=== PATIENT | male | born 1940 | race African-American/Black ===

== ENCOUNTER → 2016-08-02 | Outpatient (CLI) | payer MEDICARE, OTHER ==
[~2016-08-02] MED LIST: /NEPHROTA PO; ALBU17IN2 INH; ALLO100T PO; ASPI81TA85 PO; CHOLPOW39 PO; CINA30TA PO; CLON-412 PO; COLC1TAB13 PO; CORE25TA PO; CORE6.25 PO; D-101000 PO; DOCU10ELUD PO; FEBU40TA PO; HYDR100T13 PO; LEVI10TA22 PO; LOSA100T36 PO; METHY25TA PO; MINO25TA PO; MULT1TAB18 PO; OMEP20CA3 PO; RENV2TAB PO; SENS30TA PO; SEVE80TAB PO; TIOT18INH INH; TUMS500C PO; TYLE325T5 PO; VITA100037 PO
--- NOTE | 2016-08-02 16:31 | REP ---
Chest two views HISTORY: Wheezing Comparison: 10/30/2013 The lungs are clear. The cardiac silhouette is enlarged. The pulmonary vasculature is normal in appearance. The bony structure is intact. A catheter is present in the region of the right atrium. IMPRESSION: No acute disease. Signed by Dennis Brooke MD 08/02/2016 04:23 P
--- NOTE | 2016-08-02 23:02 | ECGEPIP ---
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 ST-T ABNORMALITY NOTED IS NEW Electronically Signed On 08-02-2016 23:02:27 EDT by Juanito Garcia
== END ==
LOC: M EKG 15:42
PROVIDERS: ATTEND Anesthesiology
DX: R06.2 Wheezing (principal)

== ENCOUNTER → 2016-08-03 | Day surgery (SDC) | payer MEDICARE, OTHER ==
[~2016-08-03] VITALS: Ht 175.3 cm; Wt 97.1 kg
[~2016-08-03] MED LIST changes: +ACETAMINOPHEN 500 MG TAB As Ordered ONE; +ACETAMINOPHEN 500 MG TAB PO ONE; +D5W/0.2% SODIUM CHLORIDE 250 ML IV ONE; +HEPARIN SOD (PORCINE) 5000 UNITS/ML VIAL As Ordered ONE; +LIDOCAINE 1% MDV 20ML VIAL As Ordered ONE; +LIDOCAINE 1% SDV INJ 30 ML VIAL As Ordered ONE; +LIDOCAINE 2% INJ 100 MG/5 ML SDV (FOR ANES.) As Ordered ONE; +MIDAZOLAM INJ 2 MG/2 ML VIAL (J2250) As Ordered ONE; +NS 1,000 ML IV SCH; +ONDANSETRON 4MG/2ML VIAL (J2405) As Ordered ONE; +PROPOFOL 200 MG/20 ML VIAL As Ordered ONE; +fentaNYL 100 MCG/2 ML INJECTION (J3010) As Ordered ONE
[2016-08-03 16:00] VITALS: BP 182/92
--- NOTE | 2016-08-03 19:28 | RO ---
DATE OF PROCEDURE: 08/03/2016 PREOPERATIVE DIAGNOSIS: End-stage renal disease. POSTOPERATIVE DIAGNOSIS: End-stage renal disease. OPERATIVE PROCEDURE: Implantation of left lower quadrant continuous ambulatory peritoneal dialysis catheter. SURGEON: Mauricio Winters MD AGRICULTURAL EQUIPMENT SALESPERSON: ANESTHESIA: Local of 1% Xylocaine with monitored anesthesia care. INDICATIONS FOR PROCEDURE: Patient is a 76-year-old man with end-stage renal disease undergoing hemodialysis. He is now for placement of a CAPD catheter to support peritoneal dialysis. OPERATIVE PROCEDURE: The patient was placed supine on the operating table. He received sedation from anesthesia. The patient's abdomen was prepped and draped in a sterile fashion. A site was marked for the catheter in the left lower quadrant below the level of the patient's belt line which was slightly below the level of the umbilicus. An approximately 4 cm longitudinal paramedian incision was made and dissected down through the abundant subcutaneous tissues to the rectus sheath. The rectus sheath was opened longitudinally and the muscle fibers were spread down to the posterior sheath and peritoneum. A small opening was created through the peritoneum into the abdomen. A pursestring suture of #2-0 Vicryl was placed. The 62-cm double pledgeted Donald peritoneal dialysis catheter cut off and placed over a long stylet. With the patient in a slight Trendelenburg position, the inferior edge of the peritoneum was elevated and the catheter was inserted into the abdominal cavity and advanced inferiorly along the anterior abdominal wall. The catheter was then slipped off of the pledget gently down into the pelvis. The pursestring suture was tied down closing the peritoneum about the catheter with care not to crimp the catheter. The suture was then tied about the inner pledget to prevent catheter withdrawal. Some clear fluid back-filled the catheter as it was being cut off . Some additional local anesthesia was infiltrated slightly lower and lateral in the left lower quadrant. A small puncture wound was created and the catheter was tunneled subcutaneously to exit through this laterally placed puncture wound. The infusion hub was attached to the catheter. Approximately 900 mL of normal saline were then infused through the catheter into the peritoneum. The patient was shifted to a slight reverse Trendelenburg for this portion of the procedure. Once the fluid had infused the bag was dropped to the floor level and there was a nice return of 700 to 800 mL of fluid. While the fluid was being infused and drained, the abdominal incision was closed with some buried #3-0 chromic in a running subcuticular #4-0 Vicryl ____cut off . Once the fluid had drained as thoroughly as possible the catheter was filled with 1 mL of 5000 units/mL heparin and 1.2 mL of sterile saline. The small catheter clamp was applied and the end of the catheter was plugged. A chlorhexidine gluconate OpSite dressing was placed over the exit site of the catheter. This was then coiled beneath several 4 x 4 gauzes and a larger OpSite dressing was applied over top of this. The patient tolerated the procedure well without apparent complication. He was allowed to awaken then transported to the advanced recovery area in stable condition.
== END | disposition home or self-care (01) ==
LOC: M SDC 08:57
PROVIDERS: ATTEND Surgery
DX: N18.6 End stage renal disease (principal); I12.0 Hypertensive chronic kidney disease with stage 5 chronic kidney disease or end stage renal disease; E11.22 Type 2 diabetes mellitus with diabetic chronic kidney disease; M10.9 Gout, unspecified; C61 Malignant neoplasm of prostate; E66.9 Obesity, unspecified; K44.9 Diaphragmatic hernia without obstruction or gangrene; K21.9 Gastro-esophageal reflux disease without esophagitis; R06.2 Wheezing; Z88.8 Allergy status to other drugs, medicaments and biological substances; Z79.899 Other long term (current) drug therapy; Z86.19 Personal history of other infectious and parasitic diseases
CPT/HCPCS: 36415; 49421; 84132; J0690; J2250; J2405; J3010

== ENCOUNTER 2016-09-01 05:51 | Inpatient (IN) | payer MEDICARE, OTHER ==
[~2016-09-01] VITALS: Ht 174 cm; Wt 89.1 kg
[~2016-09-01 05:51] MED LIST changes: -ACETAMINOPHEN 500 MG TAB As Ordered ONE; -ACETAMINOPHEN 500 MG TAB PO ONE; -D5W/0.2% SODIUM CHLORIDE 250 ML IV ONE; -HEPARIN SOD (PORCINE) 5000 UNITS/ML VIAL As Ordered ONE; -LIDOCAINE 1% MDV 20ML VIAL As Ordered ONE; -LIDOCAINE 1% SDV INJ 30 ML VIAL As Ordered ONE; -LIDOCAINE 2% INJ 100 MG/5 ML SDV (FOR ANES.) As Ordered ONE; -MIDAZOLAM INJ 2 MG/2 ML VIAL (J2250) As Ordered ONE; -NS 1,000 ML IV SCH; -ONDANSETRON 4MG/2ML VIAL (J2405) As Ordered ONE; -PROPOFOL 200 MG/20 ML VIAL As Ordered ONE; -fentaNYL 100 MCG/2 ML INJECTION (J3010) As Ordered ONE
[2016-09-01] MEDS: HEPARIN SOD (PORCINE) 5000 UNITS/ML VIAL SC SCH ×3 (06:00→21:57)
[2016-09-01] MEDS ORDERED: CARV25TA PO (06:43)
[2016-09-01] MEDS ORDERED: VITMTA PO (06:43)
[2016-09-01] MEDS ORDERED: CALC1CAP PO (06:45)
[2016-09-01] MEDS ORDERED: RENV2TAB PO ×2 (06:45→09:11)
[2016-09-01] MEDS ORDERED: NORCO, ANEXSIA 5/325MG TABLET (HYDROcodone/ACETAMINOPHEN) PO PRN (07:15)
[2016-09-01] MEDS ORDERED: ONDANSETRON 4MG/2ML VIAL (J2405) IV PRN (07:15)
[2016-09-01] MEDS ORDERED: BISACODYL 5 MG TAB PO PRN (07:15)
[2016-09-01] MEDS ORDERED: ACETAMINOPHEN TAB 650MG DOSE (2X325MG) PO PRN (07:15)
[2016-09-01] MEDS: (RENVELA) SEVELAMER **CARBONate** 800 MG TAB PO SCH ×3 (08:00→16:58)
[2016-09-01] MEDS ORDERED: COLCHICINE 0.6 MG TAB PO PRN (08:00)
[2016-09-01] MEDS: CALCIUM ACETATE 667 MG GELCAP PO SCH ×2 (08:00→16:58)
[2016-09-01] MEDS: TIOTROPIUM INHALER/CAPSULE (SPIRIVA) INH SCH (08:00)
[2016-09-01] MEDS ORDERED: ALBUTEROL 90 MCG/ACT 8GM HFA INHALER INH PRN (08:00)
[2016-09-01] MEDS ORDERED: cloNIDine 0.1 MG TAB PO ONE (08:15)
[2016-09-01] MEDS ORDERED: hydrALAZINE INJ 20 MG/ML VIAL IV ONE (08:15)
[2016-09-01] MEDS ORDERED: LOSARTAN 50 MG TAB PO ONE (08:15)
[2016-09-01] MEDS: CINACALCET 30 MG TAB (SENSIPAR) PO SCH (09:00)
[2016-09-01] MEDS: FEBUXOSTAT 40 MG TABLET (ULORIC) PO SCH (09:00)
[2016-09-01] MEDS ORDERED: HEPARIN 1,000 UNITS/ML 10ML VIAL (FOR RADIOLOGY& DIALYSIS ONLY) IV ONE (09:45)
[2016-09-01] MEDS ORDERED: hydrALAZINE INJ 20 MG/ML VIAL IV SCH (12:00)
--- NOTE | 2016-09-01 12:52 | CR ---
DATE OF CONSULTATION: 09/01/2016 REQUESTING PHYSICIAN: Dr. Adrianne Fletcher CONSULTING PHYSICIAN: Dr. Sequeira REASON FOR CONSULTATION: Management of end stage renal disease, hemodialysis and fluid overload. CHIEF COMPLAINT: Patient presented to the emergency room at [facility] with worsening shortness of breath last night and he was transferred from [facility] to our hospital for further management of fluid overload and end stage renal disease. HISTORY OF PRESENT ILLNESS: Mr. Mauricio Mckinney is a 76-year-old male with past medical history of end stage renal disease on hemodialysis every Tuesday, Tuesday, Tuesday. He is well known to the nephrology service from outpatient hemodialysis center. He is currently on hemodialysis, but planning to switch to peritoneal dialysis. He has a peritoneal catheter as well. He is being trained to start peritoneal dialysis. However, in the last one month, this is the second time that he has presented to the emergency room with worsening shortness of breath, fluid overload and hypertensive urgency. The last time he presented to the emergency room he was transferred to [place]. He was intubated there. He needed dialysis over there and he reports that he got 4 liters of ultra filtration done. When he was discharged, when he went to the dialysis center, he was below his dry weight. He got only 1 liter of fluid removed. He went home and after one day of dialysis he started feeling short of breath. He had to take deep breaths and go outside the home to catch his breath. When his symptoms got worse, he presented to the [facility] where he was found to have blood pressures in the 200s and evidence of congestive heart failure and pulmonary edema on the chest x-ray. He was transferred from [facility] to [facility] last night for further help in the management of end stage renal disease and fluid overload. The patient reports that he was given a dose of clonidine 0.1 mg by mouth and that dropped his blood pressure from 220 to 120 suddenly. When I saw the patient in the emergency room today in the morning, he was in mild respiratory distress, but otherwise he was able to speak in complete sentences. His blood pressure was 220 systolic. I arranged urgent hemodialysis for this patient for ultra filtration. PAST MEDICAL HISTORY: 1. History of end stage of renal disease on hemodialysis every Tuesday, Tuesday and Tuesday. 2. History of hypertension. 3. 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 4. History of anemia secondary to end stage renal disease. 5. Secondary hyperparathyroidism. 6. Coronary artery disease. PAST SURGICAL HISTORY: 1. Status post peritoneal dialysis catheter placement. 2. Status post bilateral nephrectomies. ALLERGIES: - HYDRALAZINE - AMLODIPINE - INDOMETHACIN - NIFEDIPINE FAMILY HISTORY: No significant family history of end stage renal disease requiring hemodialysis. SOCIAL HISTORY: The patient denies any smoking, drug abuse or alcohol abuse. REVIEW OF SYSTEMS: CONSTITUTIONAL: The patient denies any fever or chills. EYES: He denies any double vision or blurry vision. ENT: He denies any dysphagia, odynophagia or ear discharge. CARDIOVASCULAR: He denies any chest pain or palpitations. He reports mild lower extremity edema. RESPIRATORY: He reports shortness of breath, tachypnea and orthopnea. GASTROINTESTINAL (GI): He denies any nausea or vomiting. GENITOURINARY: The patient is anuric because of history of bilateral nephrectomies. MUSCULOSKELETAL: He denies any muscle aches and pains. SKIN: He denies any skin rashes or ulcers. PSYCHIATRIC: He denies any history of depression or anxiety. CENTRAL NERVOUS SYSTEM: He denies any strokes or seizures. HEMATOLOGIC/ONCOLOGIC: The patient reports history of kidney cancer and anemia secondary to end stage renal disease. All other review of systems is negative. PHYSICAL EXAMINATION: GENERAL: The patient is awake, alert, oriented times three, sitting in the bed. VITAL SIGNS: Temperature 98 degrees Fahrenheit. Blood pressure 220/99. Pulse 70. Respiratory rate 18. Saturating 100% on 2 liters nasal cannula. HEAD AND NECK EXAM: Extraocular muscles intact. Pupils equally round and reactive to light. Neck is supple. There is mildly elevated jugular venous distention (JVD). The patient has a tunneled right IJ hemodialysis catheter. CARDIOVASCULAR: S1, S2, regular rate. No murmur, rub or gallop. RESPIRATORY: Mildly decreased breath sounds at the bases and crepitations at the bases on deep inspiration. ABDOMEN: Soft. Positive bowel sounds. Nontender. No ascites. No organomegaly. Old abdominal surgical scars are present. EXTREMITIES: No clubbing or cyanosis. Pulses are 2+. The patient has trace bilateral lower extremity edema. CENTRAL NERVOUS SYSTEM: No focal neurological deficit. Power is 5/5 in all extremities. SKIN: No rashes or ulcers. LYMPH NODES: No significant cervical, axillary or inguinal lymphadenopathy. PSYCHIATRIC: Normal mood and affect. LAB REVIEW: BNP was 0. The rest of the labs from our hospital are pending. Previous labs were done at [facility]. IMAGING: No x-ray was done at our hospital. Previous x-ray was done at [facility] and it showed evidence of pulmonary congestion and edema. CURRENT INPATIENT MEDICATIONS (the patient's current inpatient medications include): - Tylenol as needed - Proventil as needed - aspirin 81 mg by mouth daily - Dulcolax as needed - PhosLo 1334 mg by mouth twice a day - Coreg 25 mg by mouth twice a day - Sensipar 30 mg by mouth daily - clonidine 0.3 mg by mouth one dose was ordered - Colchicine as needed - Uloric 40 mg by mouth daily - heparin subcutaneous - hydralazine 10 mg IV every 4 hours - losartan 100 mg by mouth daily - omeprazole 20 mg by mouth daily - Zofran as needed - Renvela 2.4 grams by mouth daily in the morning and 1600 mg by mouth twice a day in the afternoon and dinner - tiotropium - vitamin D 1000 units by mouth daily ASSESSMENT: 76-year-old male with past medical history of hypertension, end stage renal disease on hemodialysis, admitted at this time because of hypertensive urgency and fluid overload. PLAN: 1. Shortness of breath and fluid overload. I have arranged urgent hemodialysis for this patient. The patient is being dialyzed at this time. We shall try to remove about 2.5 liters of fluid. The patient cannot tolerate more than 2.5 kg of ultra filtration at one time. If needed, we should do another session of ultra filtration tomorrow morning. 2. Hypertensive urgency. Restart patient's home dose of Coreg 25 mg by mouth twice a day, losartan 100 mg by mouth daily and patient can take clonidine 0.1 mg by mouth as needed. There is a history of allergy to hydralazine. I have stopped the IV hydralazine in this patient. Hypertension is expected to improve with hemodialysis and ultrafiltration as well. 3. Secondary hyperparathyroidism. Continue current dose of Sensipar 30 mg by mouth daily. 4. Chronic kidney disease mineral bone disease. Continue current dose of PhosLo and Renvela. Check phosphorus level in the morning. 5. Anemia and end stage renal disease. I would check the hemoglobin level and if needed the patient will be started on Aranesp with hemodialysis. 6. Chronic gout because of end stage renal disease. Continue current dose of Uloric 40 mg by mouth daily. 7.End stage Renal Disease: Urgent hemodialysis as mentioned above. Thank you for involving us in the care of this patient. We shall be happy to follow the patient along with you tomorrow morning. Urgent hemodialysis was arranged and patient was seen and examined during hemodialysis as well. YOOND
[2016-09-01 14:05] VITALS: BP 200/100
[2016-09-01] MEDS: OMEPRAZOLE 20 MG CAP PO SCH (14:50)
[2016-09-01] MEDS: ASPIRIN 81 MG ENTERIC TAB PO SCH (14:50)
[2016-09-01] MEDS: CARVedilol 12.5 MG TAB PO SCH ×3 (14:50→21:00)
[2016-09-01] MEDS: MULTIVITAMINS/MINERALS THERAP 1 TAB PO SCH (14:50)
[2016-09-01] MEDS: VITAMIN D 1,000 INTERNATIONAL UNITS TABLET PO SCH (14:51)
[2016-09-01] MEDS: ISOSORBIDE DIN (ISORDIL) 10 MG TAB PO SCH ×2 (14:51→23:59)
[2016-09-01 16:54] VITALS: BP 178/74
[2016-09-01 20:35] VITALS: BP 153/95
--- NOTE | 2016-09-01 22:01 | HPEPDOC ---
General Date of Admission September 01, 2016 at 07:05 Attending Physician: EMILIANO FULLER MD Chief Complaint The patient is a 76-year-old male admitted with a reason for visit of Chf,Fluid Overload. History of Present Illness PRIMARY CARE PROVIDER: Stephani Hutchins--Different assignment of physicians at the Clinic Demolition Expert: Dr. Maldonado Brewing Director: Dr. Shanel Forman CHIEF COMPLAINT: shortness of breath HISTORY OF PRESENT ILLNESS: Mr. 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 He presents to [facility] ED for a chief complaint of "trouble breathing" that he states began yesterday evening/early this AM. Fiance at bedside reports that the patient had been SOB a few hours prior to her arrival back home and she called the ambulance at ~3:30 AM. Was transported to [facility] ED. However, there was no dialysis unit in [place], and the patient was transferred to [facility] ED. Patient reports that this is his 2nd episode of SOB. During the SOB episode , he denied orthopnea, PND, dizziness, lightheadedness, syncopal episode, loss of consciousness, palpitations, chest pain, fevers, chills, diaphoresis, headache, weakness in his extremities, slurred speech, facial droop, blurred vision, abdominal pain, nausea, vomiting, diarrhea, constipation, hematochezia, sore throat, runny nose. Denies hx of arrhythmias, valvular heart disease, or CHF before last week. SOB is worse with exertion. Better with oxygen and rest. Admits to a mild cough with the dyspnea but no sputum production. Admits to some minor leg swelling last week which he states actually began around 2 weeks or a little more before his hospitalization at [facility] in [place]. The leg swelling was worse then than it is now. Admits to having been started on minoxidil last week which has been discontinued since then. Reports adherence to his fluid and salt restriction diet. States he does not go overboard with fluids/salt. If this does occur, this is not an everyday thing. Reports medication compliance. States his dry weight is normally ~216 lbs, but in dialysis it varies. He receives scheduled hemodialysis Mondays, Wednesdays, and Fridays every week at 11:00 AM. His was last dialyzed on Tuesday. States he was hospitalized last week Tuesday morning- at [facility] for his initial SOB episode where he was intubated. States that his "lungs were filled with fluid." States that he was dialyzed 2-3 days in a row there. States he had bloodwork, an EKG, and echocardiogram done there. Does not recall the results. States he follows with Dr. Maldonado of Cardiology. Has had stress tests done in the past in [place] and an echo done in the past by Dr. Maldonado. Reports they came back negative/normal with no significant concerning results. His next Cardiology appointment was supposed to be on September 13. In the ED, the patient was treated with 1 dose of of clonidine for an elevated BP in the 200s systolic. Patient states he refused a second dose due to fear of dropping BP too low. Later, the BP was reported to have gone down by nursing. Reports improvement in SOB with being on 2L nasal cannula of oxygen. A portable CXR was done in [facility] on 09/01/16 at 4:21 AM as well, that had shown a Right IJ dual lumen central venous catheter with the tip in the R atrium that was unchanged, no pneumothorax/hemothorax, previous diffuse bilateral interstitial coarsening with improvement, unchanged cardiomegaly. Upon ROS, patient denies fevers, chills, headache, dizziness, lightheadedness, decreased hearing, sore throat, runny nose, palpitations, chest pain, weakness in the extremities, nausea, vomiting, abdominal pain, diarrhea, constipation, hematochezia, hematuria, dysuria, muscle aches/pains, rashes/lesions anywhere else. All other review of systems negative except for those as stated above. 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 EtOH: Denies. Used to drink occasionally and socially. Denies illicit drug use. 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 [facility]. Denies exposures to asbestos, silicosis. Admits to exposure to Agent [place] in [place] FAMILY HISTORY: Mother: 2 years ago from stomach problems. Real Father: Stomach cancer, Heart Issues No Siblings Does not know of any family hx of any cancers or other heart/lung conditions. MEDICATIONS: Aspirin 81 mg by mouth daily Dulcolax as needed PhosLo 1334 mg by mouth twice a day Coreg 25 mg by mouth twice a day Sensipar 30 mg by mouth daily Clonidine 0.3 mg by mouth one dose was ordered Colchicine as needed Uloric 40 mg by mouth daily Heparin subcutaneous Hydralazine 10 mg IV every 4 hours Losartan 100 mg by mouth daily Omeprazole 20 mg by mouth daily Zofran as needed Renvela 2.4 grams by mouth daily in the morning and 1600 mg by mouth twice a day in the afternoon and dinner Tiotropium Vitamin D 1000 units by mouth daily ALLERGIES: Hydralazine Indomethacin Nifedipine Amlodipine PHYSICAL EXAMINATION: Vitals: T: 98.1 BP: 202/100 RR: 20 P: 75 O2 Saturation: 99% on 2 L NC General: Pleasant and cooperative elderly male lying comfortably in bed receiving hemodialysis. Awake, alert, oriented x 3. In NAD. HEENT: Head: Normocephalic, atraumatic. Eyes: Sclera are nonicteric. Nose: No external lesions. Neck: Supple. Respiratory: Minor crackles appreciated in lung bases bilaterally. Clear to auscultation in upper lung laurent bilaterally. Fistula in place at R upper chest without surrounding erythema/warmth. Cardiovascular: regular rate and rhythm, with no murmurs, rubs or gallops. Chest: Symmetrical chest rise bilaterally. Abdomen: soft, nontender, nondistended, no hepatosplenomegaly appreciated. Bowel sounds present. Extremities: Trace to 1+ pitting pretibial edema bilaterally: R > L lower extremity. Musculoskeletal: Normal ROM. Neurological: No focal neurologic deficits appreciated bilaterally. Integumentary: Scars on LUE appreciated from previous surgeries/fistula surgery. Vascular: +2 dorsalis pedis and radial pulses bilaterally. LABORATORY DATA: Please see below. RADIOLOGY: None done. ASSESSMENT: 76 yo M with PMH significant for HTN, ESRD on HD, CAD, and anemia of chronic renal failure is presenting for shortness of breath secondary to fluid overload vs. acute on chronic CHF exacerbation and hypertensive urgency. PLAN: Admit to inpatient service for medical management and monitor on telemetry unit. -SOB 2/2 Fluid Overload: Ruled out fluid and medication noncompliance. No other acute infectious process determined. BNP of 2049. Receiving hemodialysis today. May receive extra dialysis if necessary. Nephrology consulted. Rule out CHF exacerbation. Emergent fluid management. Check I/Os Daily weights Fluid Restriction 1.5 L Cycle cardiac markers to rule out ACS No acute ST-T wave changes seen on EKG Obtain records from [facility] and [facility] for previous Echos , Cardiology notes, Stress Tests, etc. -Hypertensive Urgency: Continue losartan, clonidine as needed, nitrates as needed, hydralazine as needed, and titrate meds if uncontrolled. Continue beta marlo for now to keep pressures ideally >120-140. -Hx of Renal Cell Ca/ESRD on HD: continue with Nephrology recommendations, dialysis and fluid management. Monitor renal function with daily BMPS. Received dialysis today. -CAD: not on statin. Will have to investigate. -Continue home medications. -Diet: no salt and fluid restriction. DVT ppx: heparin Immunizations as per protocol. CODE STATUS: My preceptor for this patient encounter was Dr. Emiliano Fuller, and was physically present in the building during the encounter and was fully available. As needed, all aspects of the patient interview, examination, medical decision making process, and medical care plan development were reviewed and approved by the preceptor. Preceptor is aware and concurs with the plan as stated in the body of this note and will attest to such by his/her cosignature. Home Medications Scheduled Aspirin (Aspir-81) 81 Mg Tab, 81 MG PO DAILY, (Reported) Calcium Acetate (Calcium Acetate) 667 Mg Cap, 1,334 MG PO BID, (Reported) Carvedilol (Carvedilol) 25 Mg Tab, 25 MG PO BID, (Reported) Cholecalciferol (D3-1000) 1,000 Unit Cap, 1,000 UNIT PO DAILY, (Reported) Cinacalcet Hydrochloride (Sensipar) 30 Mg Tab, 30 MG PO DAILY, (Reported) Febuxostat (Uloric) 40 Mg Tab, 40 MG PO DAILY, (Reported) Losartan Potassium (Losartan Potassium) 100 Mg Tab, 100 MG PO DAILY, (Reported) Multivitamins *[facility] STOCKED* (Thera M Plus *[facility] STOCKED*) 1 Tab Tab, 1 TAB PO DAILY, (Reported) Omeprazole (Omeprazole) 20 Mg Cap, 20 MG PO DAILY, (Reported) Sevelamer Carbonate (Renvela) 800 Mg Tab, 2,400 MG PO DAILY, (Reported) WITH BREAKFAST Sevelamer Carbonate (Renvela) 800 Mg Tab, 1,600 MG PO BID, (Reported) LUNCH AND DINNER Tiotropium Tofte Monohydrate (Spiriva Handihaler) 5 Inhalation/Inhaler Powd, 1 INHALATION INH DAILY, (Reported) Scheduled PRN Albuterol Sulfate (Proventil Hfa) 167 Puff/6.7 Gm Aers, 2 PUFFS INH Q4H PRN for SHORTNESS OF BREATH, (Reported) Clonidine Hydrochloride (Clonidine HCl) 0.1 Mg Tab, 0.1 MG PO DAILY PRN for elevated B/P, (Reported) Colchicine (Colchicine) 0.6 Mg Tab, 0.6 MG PO DAILY PRN for gout flair up, ( Reported) Sevelamer Carbonate (Renvela) 800 Mg Tab, 1,600 MG PO PRN PRN for WITH SNACKS, ( Reported) Allergies Coded Allergies: Amlodipine (Verified Allergy, Unknown, 08/03/16) Indomethacin (Verified Allergy, Unknown, 07/20/16) Nifedipine (Verified Allergy, Unknown, 07/20/16) Hydralazine (Verified Adverse Reaction, Intermediate, elevated bp headache , 08/03/16) Attending Note I, Dr. Fuller, have independently interviewed and examined this patient. I have discussed this case with my Resident Physician, Dr. Rowell, and agree with the management plan as listed above. Vital Signs Vital Signs Date Time Temp Pulse Resp B/P (MAP) Pulse Ox O2 Delivery O2 Flow Rate FiO2 09/01/16 21:00 66 09/01/16 20:35 99.4 18 153/95 (114) 96 Room Air 09/01/16 08:36 2.0 Laboratory Data Labs 24H Laboratory Tests 2 09/01/16 09:21: B-Type Natriuretic Peptide 2050H 09/01/16 12:36: Total Creatine Kinase 158, Creatine Kinase MB 1.7, Creatine Kinase MB Relative Index 1.07, Troponin I 0.18H 09/01/16 17:55: Total Creatine Kinase 149, Creatine Kinase MB 1.6, Creatine Kinase MB Relative Index 1.07, Troponin I 0.20H Plan / VTE VTE Prophylaxis Ordered?: Yes (heparin) Attending Note I, Dr. Fuller, have independently interviewed and examined this patient at the bedside and agree with the documentation and management plan as documented by Dr. Rowell above. CHF? unknown ejection fraction: will obtain records from [facility] , continue telemetry monitoring, fluid restriction, strict i/o, diuresis via dialysis If PVCs or NSVT, will optimize electrolytes potassium and magnesium. May need cardiology consult if EF<40% or arrhythmia's on tele. Per Dr. Maldonado's in [place], but has not been seen since 2004. TABITHA ROWELL OGME-1 September 01, 2016 22:01 EMILIANO FULLER MD Sep 02, 2016 07:27
[2016-09-01 23:47] VITALS: BP 170/82
[2016-09-02] VITALS (7 sets, daily range): BP systolic 138–210; BP diastolic 62–90
[2016-09-02] MEDS: ISOSORBIDE DIN (ISORDIL) 10 MG TAB PO SCH ×3 (05:50→21:18)
[2016-09-02] MEDS: HEPARIN SOD (PORCINE) 5000 UNITS/ML VIAL SC SCH ×3 (05:53→21:18)
[2016-09-02 06:24] LABS: MEAN CORPUSCULAR HEMOGLOBIN 29.1 pg (27.0-33.0); MEAN CORPUSCULAR HGB CONC 32.1 g/dl (32.0-36.5); MEAN CORPUSCULAR VOLUME 90.7 fl (80.0-96.0); RED CELL DISTRIBUTION WIDTH 17.9 % (11.5-14.5); WHITE BLOOD COUNT 4.5 K/mm3 (4.0-10.0)
[2016-09-02 06:37] LABS: ALBUMIN 3.5 GM/DL (3.2-5.2); CALCIUM LEVEL 8.6 MG/DL (8.8-10.2); CREATININE FOR GFR 8.03 MG/DL (0.70-1.30); GLOMERULAR FILTRATION RATE 8.5 (>42); MAGNESIUM LEVEL 2.2 MG/DL (1.8-2.4); PHOSPHORUS LEVEL 4.6 MG/DL (2.5-4.9); POTASSIUM SERUM 4.2 MEQ/L (3.5-5.1)
[2016-09-02] MEDS: TIOTROPIUM INHALER/CAPSULE (SPIRIVA) INH SCH (07:16)
[2016-09-02] MEDS: VITAMIN D 1,000 INTERNATIONAL UNITS TABLET PO SCH (08:44)
[2016-09-02] MEDS: FEBUXOSTAT 40 MG TABLET (ULORIC) PO SCH (08:44)
[2016-09-02] MEDS: (RENVELA) SEVELAMER **CARBONate** 800 MG TAB PO SCH ×3 (08:44→17:23)
[2016-09-02] MEDS: CINACALCET 30 MG TAB (SENSIPAR) PO SCH (08:45)
[2016-09-02] MEDS: ASPIRIN 81 MG ENTERIC TAB PO SCH (08:45)
[2016-09-02] MEDS: OMEPRAZOLE 20 MG CAP PO SCH (08:45)
[2016-09-02] MEDS: CALCIUM ACETATE 667 MG GELCAP PO SCH ×2 (08:45→17:23)
[2016-09-02] MEDS: MULTIVITAMINS/MINERALS THERAP 1 TAB PO SCH (08:45)
[2016-09-02] MEDS: CARVedilol 12.5 MG TAB PO SCH ×2 (08:46→21:17)
[2016-09-02] MEDS ORDERED: LOSARTAN 50 MG TAB PO SCH (09:00)
--- NOTE | 2016-09-02 09:24 | REP ---
REASON: Dyspnea. COMPARISON: 09/01/2016 from [facility]. The double lumen central venous catheter tip is unchanged remaining in the superior vena cava. There is cardiomegaly. There is basilar fibrotic change. There is bilateral pulmonary arterial enlargement. Stable left lower lobe opacities and left CP angle blunting again noted. There is no change in the osseous structures. IMPRESSION: No significant change. There is cardiomegaly and fibrotic change with evidence of pulmonary arterial hypertension. Stable left lower lobe opacities and left CP angle blunting either chronic fibrotic change and/or acute disease superimposed on chronic change. Correlate clinically. Other findings as described above. Signed by Chaz Issa DO 09/02/2016 10:14 A
[2016-09-02] MEDS ORDERED: SLF 3 ML SYR IV PRN (12:45)
[2016-09-02] MEDS: SLF 3 ML SYR IV SCH ×2 (14:22→21:19)
--- NOTE | 2016-09-02 17:17 | IPN ---
DATE: 09/02/2016 SUBJECTIVE: The patient was seen and examined at the bedside today in the morning. He was feeling much better. He does not have any active complaints. His shortness of breath has improved. He tolerated the hemodialysis procedure well. His dry weight today is 90.2 kg. On telemetry, he was found to have ventricular tachycardia (v tach) overnight. His previous records were reviewed. Echocardiogram from 2014 was reviewed. He was found to have low ejection fraction of around 25%, so the patient is being kept in the hospital at this time for further imaging and cardiology consult. REVIEW OF SYSTEMS: The patient denies any fever, chills, rigors, headache, nausea, vomiting, chest pain, shortness of breath, pain in abdomen, constipation or diarrhea. The rest of the review of systems is negative. OBJECTIVE: VITAL SIGNS: Temperature is 98.6 degrees Fahrenheit, blood pressure is 156/62, pulse is 59, respiratory rate of 18, saturating 98% on room air. INTAKE/OUTPUT: Urine output recorded as 0 and he got ultrafiltration done yesterday, which was 2.5 liters. Weight on the chair scale is 90.2 kg. PHYSICAL EXAMINATION: GENERAL: The patient is awake, alert, oriented times three, sitting in the bed, in no apparent distress. HEAD AND NECK EXAM: Extraocular muscles intact. Pupils equally round and reactive to light. Neck is supple. There is no jugular venous distention (JVD). CARDIOVASCULAR: S1, S2, regular rate. No murmur, rub or gallop. RESPIRATORY: Chest is clear to auscultation bilaterally. Bilateral equal air entry. No rales or rhonchi. ABDOMEN: Abdomen is soft. Positive bowel sounds. Nontender. No ascites. No organomegaly. Old surgical scars are present. EXTREMITIES: No clubbing or cyanosis. Pulses are 2+. There is no edema of the bilateral lower extremities. CENTRAL NERVOUS SYSTEM: No focal neurological deficit. Power is 5/5 in all extremities. PSYCHIATRIC: Normal mood and affect. LAB REVIEW: CBC showed a WBC of 4.5, hemoglobin 10.5, platelets are 203. BMP showed sodium 141, potassium 4.2, chloride 102, bicarbonate 30, BUN 19, creatinine 8, calcium 8.6, phosphorus 4.6, magnesium 2.2, albumin is 3.5. CURRENT MEDICATIONS: The patient's medications were all reviewed by me. There is no change in the medications today as compared with yesterday. ASSESSMENT: 76-year-old male with past medical history of hypertension, end-stage renal disease, on hemodialysis, history of congestive heart failure, admitted at this time because of fluid overload. PLAN: 1. Congestive heart failure and fluid overload. The patient got hemodialyzed yesterday, 2.5 liters of fluid was removed. He is totally asymptomatic at this time, but the patient was having ventricular tachycardia on the phototypesetting equipment monitor and we do not have any recent echo available. Apparently previous echocardiogram showed an ejection fraction of around 25%. The patient is pending evaluation by cardiology for any need of automatic implantable cardioverter defibrillator (AICD) insertion. 2. Hypertension. Blood pressure is acceptable at this time. Continue current dose of Coreg 25 mg by mouth twice a day, isosorbide 10 mg by mouth every 8 hours, losartan 100 mg by mouth daily and the patient also takes clonidine 0.1 mg by mouth as needed for systolic blood pressure more than 160. 3. End-stage renal disease, on hemodialysis. The patient's regular hemodialysis days are Tuesday, Tuesday, Tuesday. He was dialyzed according to his schedule yesterday. Next hemodialysis session will be tomorrow. No urgent need of hemodialysis today. DISCHARGE PLANNING: The patient is pending evaluation by cardiology for congestive heart failure (CHF) and ventricular tachycardia; otherwise he is okay to be discharged from a nephrology standpoint. Plan of care was discussed with the medical team, hospitalist, Dr. Adrianne Fletcher.
--- NOTE | 2016-09-02 18:37 | IPNPDOC ---
Text Note Date of Service The patient was seen on 09/02/16. NOTE Subjective: Patient seen and examined at bedside. States he is feeling better today and would like to know if he could go home. Denies fevers, chills, chest pain, SOB, nausea, vomiting, abdominal pain, diarrhea, constipation, urinary symptoms, weakness in his extremities. Denies hematochezia. Denies runny nose, sore throat , cough. Denies orthopnea and PND. Denies lower extremity edema bilaterally. Objective: Vitals: T: 98.5 BP: 138/71 RR: 18 P: 60 O2 Saturation: 98% on room air. I/O: 960/2500 mL, (-) 1540 mL balance yesterday. Wt: 89.9 kg (89.8 kg yesterday) New Dry weight is: 92 kgs from 94 kgs General: Pleasant and cooperative elderly sitting up comfortably in bed. Awake, alert, oriented x 3. In NAD. HEENT: Head: Normocephalic, atraumatic. Eyes: Sclera are nonicteric. Nose: No external lesions. Neck: Supple. Respiratory: Minor crackles appreciated in lung bases bilaterally improved from yesterday. Clear to auscultation in upper lung laurent bilaterally. Fistula in place at R upper chest without surrounding erythema/warmth. Cardiovascular: regular rate and rhythm, with no murmurs, rubs or gallops. Chest: Symmetrical chest rise bilaterally. Abdomen: soft, nontender, nondistended, no hepatosplenomegaly appreciated. Bowel sounds present. Extremities: Very minimal to no edema present in lower extremities bilaterally. Musculoskeletal: Normal ROM. Neurological: No focal neurologic deficits appreciated bilaterally. Integumentary: Scars on LUE appreciated from previous surgeries/fistula surgery. Vascular: +2 dorsalis pedis and radial pulses bilaterally. Laboratory data: Please see below. Troponins elevated: 0.18, 0.20, 0.16 most likely 2/2 stretching heart/kidney disease. Imaging: CXR: No significant change. There is cardiomegaly and fibrotic change with evidence of pulmonary arterial hypertension. Stable left lower lobe opacities and left CP angle blunting either chronic fibrotic change and/or acute disease superimposed on chronic change. Correlate clinically. Other findings as described above. Complete 2D Echocardiogram from [facility] from Admission 08/24/16-08/26/16: Sinus Rhythm. A technically adequate study. Showed LVEF of 25-30%. The LV was normal in size. There was mild concentric LVH. There are regional wall motion abnormalities. The anterior septum is akinetic. The inferior wall is mildly hypokinetic. The LV apex is akinetic. The RV is normal in size. The R ventricular systolic function is normal. The left atrium size by volume measurement is moderately abnormal (42-48 mL/m2) There is mild aortic valve sclerosis without stenosis. Trace to mild mitral regurgitation is present. Trace tricuspid regurgitation present. The estimated PA systolic pressure is WNL. There is moderate pericardial effusion located near the R ventricle. There is no evidence of cardiac tamponade. A L pleural effusion is present. The inferior vena cava is dilated with poor inspiratory collapse which is consistent with elevated R atrial pressures (>15 mmHg). Compared with the findings of the prior report of 06/05/11, wall motion abnormalities are new. LABORATORY DATA: Please see below. Assessment: 76 yo M with PMH significant for HTN, ESRD on HD, CAD, and anemia of chronic renal failure is presenting for shortness of breath secondary to fluid overload vs. acute on chronic CHF exacerbation and hypertensive urgency. Plan: -SOB 2/2 Fluid Overload: SOB itself has resolved. Clinically, minimal to no palpable LE edema. However, Echocardiogram from [facility] last week reveals a LVEF of 25-30% and systolic HF is presumed. Patient in need of AICD. In addition, at 8:19 on 09/02/16, patient's telemetry strips had shown a 10-beat-run of nonsustained Vtach. Have consulted Dr. Buenrostro of Cardiology. Will appreciate recommendations. Also obtaining an echocardiogram at this facility. Plan to monitor patient over weekend and hope for discharge Tuesday if stable. Will follow with Dr. Maldonado as outpatient upon discharge. Ruled out fluid and medication noncompliance. No other acute infectious process determined. BNP of 2049. Receiving hemodialysis today. May receive extra dialysis if necessary. Nephrology consulted. Emergent fluid management. Check I/Os Daily weights. New Dry Weight is: 92 kgs from old dry weight of 94 kgs. C/w Fluid Restriction 1.5 L Cardiac markers revealed elevated troponins. Please see below. Most likely related to renal disease and stretching of heart due to fluid overload/CHF. Obtain records from [facility] and [facility] for previous Echos , Cardiology notes, Stress Tests, etc. -Hypertensive Urgency: BP controlled and was 138/71 today. Have added diltiazem. Losartan discontinued. Continue beta marlo carvedilol for now to keep pressures ideally >120-140. Can use clonidine as needed, nitrates as needed (isosorbide mononitrate), hydralazine as needed, and titrate meds if uncontrolled. -Hx of Renal Cell Ca/ESRD on HD: New Dry weight 92 kg and used to be 94 kg. Continue with Nephrology recommendations, dialysis and fluid management. Monitor renal function with daily BMPS. Received dialysis yesterday. Is due for next dialysis tomorrow. Appreciate input. -CAD: continue aspirin. Evaluate for need for statin therapy and if any significant allergy. -Continue home medications. -Diet: no salt and fluid restriction. DVT ppx: heparin Immunizations as per protocol. CODE STATUS: FULL CODE My preceptor for this patient encounter was Dr. Emiliano Fuller, and was physically present in the building during the encounter and was fully available. As needed, all aspects of the patient interview, examination, medical decision making process, and medical care plan development were reviewed and approved by the preceptor. Preceptor is aware and concurs with the plan as stated in the body of this note and will attest to such by his/her cosignature. Attending Note I, Dr. Fuller, Hospitalist Attending Physician, have independently interviewed and examined the patient at the bedside. I have discussed the management plan with my Resident Physician, and agree with the documentation as stated above. VS,Fishbone, I+O VS, Fishbone, I+O Laboratory Tests 09/02/16 05:58 Red Blood Count 3.62 L, Mean Corpuscular Volume 90.7, Mean Corpuscular Hemoglobin 29.1, Mean Corpuscular Hemoglobin Concent 32.1, Red Cell Distribution Width 17.9 H, Anion Gap 9 Vital Signs Date Time Temp Pulse Resp B/P (MAP) Pulse Ox O2 Delivery O2 Flow Rate FiO2 09/02/16 16:20 98.9 60 16 138/78 (98) 99 Room Air 09/02/16 11:30 I&O- Last 24 Hours up to 6 AM 09/02/16 05:59 Intake Total 1080 ml Output Total 2500 ml Balance -1420 ml TABITHA ROWELL OGME-1 Sep 02, 2016 18:37 EMILIANO FULLER MD Sep 03, 2016 06:45
--- NOTE | 2016-09-02 20:46 | ECGEPIP ---
Stationary ECG Study [facility] Test Date: 2016-09-01 Pat Name: CASSIDY VARGHESE Department: Room: [place] [address] Gender: M Cath Lab Tech: CORTNEY : 1940 Requested By: EMILIANO Jurado Order Number: [id number] Reading MD: Kendrick Buenrostro Measurements Intervals [place] Rate: 60 P: 39 ND: 210 QRS: -28 QRSD: 113 T: 180 QT: 456 QTc: 456 Interpretive Statements SINUS RHYTHM WITH FIRST DEGREE AV BLOCK WITH 1 PAC with QRS aberrancy that follows. POSSIBLE LEFT ATRIAL ENLARGEMENT Leftward axis. SEPTAL MYOCARDIAL INFARCTION, OF INDETERMINATE AGE MODERATE T-WAVE ABNORMALITY, CONSIDER ANTEROLATERAL ISCHEMIA Electronically Signed On 09-02-2016 20:45:53 EDT by Kendrick Buenrostro
--- NOTE | 2016-09-02 20:55 | ECGEPIP ---
Stationary ECG Study [facility] Test Date: 2016-09-02 Pat Name: CASSIDY VARGHESE Department: Room: [place] [address] Gender: M Bobbin Dumper: ANDRÉS : 1940 Requested By: EMILIANO Jurado Order Number: [id number] Reading MD: Kendrick Buenrostro Measurements Intervals [place] Rate: 64 P: 50 CA: 207 QRS: -18 QRSD: 104 T: 203 QT: 420 QTc: 434 Interpretive Statements SINUS RHYTHM WITH SINUS ARRHYTHMIA POSSIBLE LEFT ATRIAL ENLARGEMENT SEPTAL MYOCARDIAL INFARCTION, OF INDETERMINATE AGE MODERATE T-WAVE ABNORMALITY, CONSIDER LATERAL ISCHEMIA MODERATE T-WAVE ABNORMALITY, CONSIDER INFERIOR ISCHEMIA Electronically Signed On 09-02-2016 20:55:29 EDT by Kendrick Buenrostro
--- NOTE | 2016-09-03 00:44 | CR ---
DATE OF CONSULTATION: 09/02/2016 CARDIOLOGY CONSULTATION REPORT REFERRING PHYSICIAN: Dr. Adrianne Fletcher REASON FOR CONSULTATION: Cardiomyopathy, unspecified, nonsustained ventricular tachycardia. HISTORY OF THE PRESENT ILLNESS: The patient is a 76-year-old man with end-stage kidney disease, on hemodialysis three times a week (Tuesday, Tuesday, Tuesday) who is in the transition stage of being converted over to peritoneal dialysis. He is status post bilateral nephrectomies because of kidney cancer. He has longstanding systemic hypertension, which preceded the development of kidney disease. To the patient's knowledge, he has never had any prior heart attack, heart failure, cardiac rhythm disturbances, or heart catheterization. The admission history of the present illness indicates the patient has a diagnosis of coronary artery disease. 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 Fran Maldonado, for my review. The patient has had recent episodes of hypertensive urgency, thought to be precipitated by fluid overload. He was hospitalized to [facility] on this occasion after being seen at [facility] Emergency Room (ER) with worsening shortness of breath and for fluid overload in the setting of end-stage renal disease. The patient is not bothered by any chest, neck, jaw or upper extremity pain, pressure, tightness, squeezing, or heaviness with or without exertion. He denies exertional dyspnea. He has had recent occurrence of dependent edema in both legs and ankles, which is relatively new for him in the past several weeks. No palpitations. No embolic events or strokes. No intermittent claudication. The patient reports intolerance to NIFEDIPINE (shortness of breath), intolerance to AMLODIPINE (felt unwell and headaches), intolerance to MINOXIDIL (inappropriate hair growth) and he has also listed as having an allergy to HYDRALAZINE (unknown). MEDICATIONS PRIOR TO ADMISSION: - Proventil inhaler two puffs every 4 hours as needed - aspirin 81 mg daily - calcium acetate twice a day - carvedilol 25 mg twice a day - vitamin D3 1000 units daily - Sensipar 30 mg daily - clonidine 0.1 mg daily as needed for elevated blood pressure - colchicine 0.6 mg daily as needed - Uloric 40 mg daily - losartan 100 mg daily - multivitamin one daily - omeprazole 20 mg daily - Renvela 2400 mg daily with breakfast and 1600 mg twice a day at lunch and dinner and 1600 mg as needed with snacks - Spiriva one inhalation daily The patient's current medications in the hospital are as follows: - acetaminophen 650 mg every 4 hours as needed - hydrocodone/acetaminophen one every 4 hours as needed - Proventil inhaler two puffs every 4 hours as needed - aspirin 81 mg daily - Dulcolax 5 mg by mouth daily as needed - PhosLo 1334 mg twice a day - carvedilol 25 mg twice a day - Sensipar 30 mg daily - Uloric 40 mg daily - heparin 5000 units subcu every 8 hours - isosorbide dinitrate 10 mg four times a day - losartan 100 mg daily - multivitamin one daily - omeprazole 20 mg daily - Zofran 4 mg IV every 6 hours - Renvela 1600 mg twice a day at lunch and supper and 2400 mg in the morning - Spiriva one inhalation daily - vitamin D 1000 units by mouth daily OTHER PAST MEDICAL AND SURGICAL HISTORY: Longstanding systemic hypertension. 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 Anemia of chronic renal failure. History of prostate cancer, status post prostatectomy in 1993. Status post placement of a peritoneal dialysis catheter. History of prior hypertensive nephrosclerosis. Back pain. Status post bilateral nephrectomies. Status post prostatectomy. Right internal jugular dual lumen central venous catheter. Dialysis shunt 08/03/2016. SOCIAL HISTORY: Prior smoking history for which he quit 45 years ago. Previously smoked one pack per day for 9 years. No alcohol. No illicit drug use. 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 Prior exposure to [place] in [place]. FAMILY HISTORY: Mother due to stomach problems. His biologic father had stomach cancer and heart issues. REVIEW OF SYSTEMS: No fever or chills. Recent dependent bilateral leg/ankle edema. Anuric status post bilateral nephrectomies. No anxiety, panic attacks or depression. Anemia secondary to end-stage kidney disease. History of kidney cancer and history of prior prostate cancer. All other ten-point review of systems negative. PHYSICAL EXAMINATION: Presence of a tunneled right internal jugular (IJ) hemodialysis catheter via internal jugular on the right. Pleasant, overweight, man who appears his chronologic age, who is not in any respiratory or psychologic distress. Height: 68.5 inches, weight 90.2 kg, body mass index (BMI) 29.8. Temperature 98.6, pulse 60 (regular), respiratory rate 18, blood pressure 210/90, oxygen saturation 96% on room air. No conjunctival pallor, scleral icterus or xanthomas. Multiple missing teeth and some dental fillings present. Oral mucosa was moist and without pallor or cyanosis. Jugular venous pulsations were at 3 cm. Trachea midline. No palpable thyroid. No clubbing, nail bed cyanosis, or splinter hemorrhages. No skin lesions, skin pallor, or icterus. Oriented to person, place and time. Mood and affect normal. Curvature of the spine normal. Gait was not tested. Gross motor strength and tone normal. No abnormal muscle atrophy, fasciculations, or tremors. Respiratory expansion effort was good. No crackles or wheezes. [place] beat was at the left 5th interspace at the left midclavicular line. No left parasternal lifts, heaves or thrills. First heart sound normal. Second heart sound was accentuated. No S3 or S4, or murmurs or pericardial friction rubs. Carotids were normal in volume and contour and without bruits. No palpable abdominal aorta. No abdominal bruits. Pedal pulses 2+/2. No lower extremity edema. No varicose veins. Abdomen was obese and was soft, nontender with normal bowel sounds. No hepatosplenomegaly or other organomegaly. The lower abdomen had a peritoneal dialysis catheter in situ. Liver span difficult to tell due to abdominal obesity. Stool for occult blood not presently indicated. INVESTIGATIONS: Electrocardiogram 09/02/2016 shows sinus rhythm with sinus arrhythmia, heart rate 64 beats per minute (BPM), left atrial abnormality, possible left atrial enlargement, septal myocardial infarct, age undetermined with QS complexes V1, V2, V3, moderate T-wave inversions, consider lateral myocardial ischemia and consider inferior wall myocardial ischemia. I have independently visualized the patient's PA and lateral chest x-ray acquired 09/02/2016. It shows cardiomegaly with cardiothoracic ratio more than 50%. No pulmonary vascular redistribution. No interstitial or alveolar edema. Costophrenic angles were clear. Presence of a hemodialysis catheter tunneled and entering via the right internal jugular vein with the tip in the right atrium. LABORATORY WORK: 09/02/2016 shows WBC 4.5, hemoglobin 10.5, hematocrit 32.8. BNP 2050 (09/01/2016. Laboratory work 09/01/2016 showed highest troponin I level of 0.20 with normal CPK and CPK-MB. Laboratory work 09/02/2016 showed sodium 141, potassium 4.2, chloride 102, CO2 30, BUN 19, creatinine 8.03, glucose 95, magnesium 2.2, albumin 3.5. ASSESSMENT AND PLAN: 1. Coronary artery disease. The patient has no knowledge of any prior heart attack or cardiac catheterization or coronary artery disease. His ECG is strongly suggestive of anteroseptal myocardial infarction, age undetermined and shows T-wave inversions suggestive of myocardial ischemia. My plan is to arrange for the patient to have an outpatient stress SPECT myocardial perfusion imaging study. For now, continue with aspirin and nitroglycerin sublingual as needed. Continue carvedilol. It is my opinion that this patient's losartan will not be of any benefit because he is unlikely to produce any significant amount of renin because he is status post bilateral nephrectomies. I think that the losartan ca be discontinued. 2. Nonsustained ventricular tachycardia. I cannot find the rhythm strips showing nonsustained ventricular tachycardia in the patient's paper chart at the moment. But I am told by Dr. Fletcher, who spoke to me earlier today requesting consult, that the patient had nonsustained ventricular tachycardia (VT). His potassium and magnesium were good. An echocardiogram Doppler has been ordered, and I plan to read this under separate cover. Further management depending upon his left ventricle ejection fraction. He is not symptomatic with any palpitations. 3. Systemic hypertension. The patient has longstanding history of prior systemic hypertension and now contributing to the patient's systemic hypertension is end-stage kidney disease and the difficulties with recurrent fluid overload. Unfortunately, he has multiple intolerances to many antihypertensive medications, which are listed as nifedipine, amlodipine, hydralazine and the patient also tells me minoxidil (unwanted hair growth). A martinez component of management of hypertension is management of fluid status and this remains in the realm of nephrology care in this patient who is hemodialysis dependent. Agree with carvedilol. I would suggest switching from isosorbide dinitrate 10 mg every 8 hours to isosorbide mononitrate ER 30 mg daily and titrate up if tolerated. I would suggest discontinuation of losartan as it is not expected to have any significant impact on this patient's systemic hypertension as he is status post bilateral nephrectomies and therefore, should not be producing any significant quantities of renin. I would like to try the patient on some diltiazem for additional blood pressure control. 4. Abnormal ECG. ECG as described above. I will review the echocardiogram Doppler separately. Plan will be for an outpatient stress SPECT myocardial perfusion imaging study. 5. Cardiomegaly. Mild cardiomegaly by chest x-ray. Will review the echocardiogram Doppler later. 6. Elevated BNP. The patient reports recent edema in his legs. Contributing to BNP elevation is recent fluid overload and end-stage kidney disease reducing clearance of BNP. I suspect the patient likely does have heart failure. Will review the echocardiogram Doppler separately. Thank you kindly for asking me to participate in the cardiac care of this patient. Copy To: Dr. Adrianne Buenrostro
[2016-09-03 05:07] VITALS: BP 174/82
[2016-09-03] MEDS: HEPARIN SOD (PORCINE) 5000 UNITS/ML VIAL SC SCH ×3 (05:16→21:28)
[2016-09-03] MEDS: SLF 3 ML SYR IV SCH ×3 (05:17→21:28)
[2016-09-03 05:52] LABS: MEAN CORPUSCULAR HEMOGLOBIN 28.9 pg (27.0-33.0); MEAN CORPUSCULAR HGB CONC 32.3 g/dl (32.0-36.5); MEAN CORPUSCULAR VOLUME 89.5 fl (80.0-96.0); RED CELL DISTRIBUTION WIDTH 17.4 % (11.5-14.5); WHITE BLOOD COUNT 4.6 K/mm3 (4.0-10.0)
[2016-09-03 06:11] LABS: ALBUMIN 3.1 GM/DL (3.2-5.2); CALCIUM LEVEL 8.6 MG/DL (8.8-10.2); CREATININE FOR GFR 10.7 MG/DL (0.70-1.30); GLOMERULAR FILTRATION RATE 6.1 (>42); PHOSPHORUS LEVEL 3.5 MG/DL (2.5-4.9); POTASSIUM SERUM 4.1 MEQ/L (3.5-5.1)
[2016-09-03] MEDS: CINACALCET 30 MG TAB (SENSIPAR) PO SCH (07:50)
[2016-09-03] MEDS: FEBUXOSTAT 40 MG TABLET (ULORIC) PO SCH (07:50)
[2016-09-03] MEDS: CALCIUM ACETATE 667 MG GELCAP PO SCH ×2 (07:50→18:33)
[2016-09-03] MEDS: (RENVELA) SEVELAMER **CARBONate** 800 MG TAB PO SCH ×3 (07:50→18:33)
[2016-09-03] MEDS: CARVedilol 12.5 MG TAB PO SCH ×2 (07:51→20:09)
[2016-09-03] MEDS: OMEPRAZOLE 20 MG CAP PO SCH (07:51)
[2016-09-03] MEDS: ASPIRIN 81 MG ENTERIC TAB PO SCH (07:51)
[2016-09-03] MEDS: VITAMIN D 1,000 INTERNATIONAL UNITS TABLET PO SCH (07:51)
[2016-09-03] MEDS: MULTIVITAMINS/MINERALS THERAP 1 TAB PO SCH (07:51)
[2016-09-03] MEDS: ISOSORBIDE MON. (IMDUR) 30 MG XR TAB PO SCH (07:55)
[2016-09-03] MEDS: diltiaZEM **CD** 180 MG CAP PO SCH (07:55)
[2016-09-03 08:00] VITALS: BP 158/86
[2016-09-03] MEDS: TIOTROPIUM INHALER/CAPSULE (SPIRIVA) INH SCH (08:00)
[2016-09-03] MEDS ORDERED: HEPARIN 1,000 UNITS/ML 10ML VIAL (FOR RADIOLOGY& DIALYSIS ONLY) IV ONE (10:15)
[2016-09-03] MEDS ORDERED: cloNIDine 0.1 MG TAB PO PRN (11:30)
--- NOTE | 2016-09-03 11:57 | ECHO ---
DATE OF PROCEDURE: 09/02/2016 REFERRING PHYSICIAN: Dr. Adrianne Fletcher INDICATION: Localized edema. HEIGHT: 174 cm, WEIGHT: 96 kg. 2D MEASUREMENTS: Aortic root - 3.3 cm Left atrium - 4.5 cm Ventricular septum - 1.34 cm Posterior wall - 1.32 cm Left ventricle diastole - 5.7 cm Inferior vena cava - 2.6 cm DOPPLER MEASUREMENTS: Trace aortic regurgitation. No aortic stenosis. Aortic valve velocity - 183 cm/s LVOT velocity - 114 cm/s LVOT VTI - 22.3 cm Mitral E velocity - 77.0 cm/s Mitral A velocity - 129 cm/s Mitral deceleration time 211 ms Trace tricuspid regurgitation. Estimated right ventricle systolic pressure 33 mmHg Estimated right atrial pressure 5 mmHg Pulmonary artery systolic pressure 38 mmHg by pulmonary acceleration time method. MITRAL ANNULAR TISSUE DOPPLER: E prime lateral 4.3 cm/s DESCRIPTION: The rhythm was sinus. The image quality was good. This was a 2D, M-mode, color flow Doppler and pulsed wave Doppler examination including mitral annular tissue Doppler. CONCLUSIONS: 1. Mild mixed eccentric/concentric left ventricle hypertrophy with mild dilatation of the left ventricle within diastole. Mild to moderate global LV hypokinesis with moderate reduction overall LV systolic function. LVEF 40%-45% by visual estimate. Grade 1 LV diastolic dysfunction (impaired relaxation filling pattern). 2. Moderate size pericardial effusion. Partial invagination of the right atrial free wall during the cardiac cycle without complete collapse. No respiratory collapse of the other cardiac chambers. Pericardial effusion measured maximum 1.3 cm of the basal posterior wall. No stranding or masses were seen within the pericardial effusion. No significant respiratory variation of intracardiac velocities. 3. Mild to moderate left atrial dilatation. 4. Mild to moderate aortic valve sclerosis especially involving the right aortic cusp. No aortic stenosis. Trace aortic regurgitation. 5. Suggestive of mild elevation of pulmonary artery systolic pressure and estimated right ventricle systolic pressure. Normal right ventricle size and systolic function. Inferior vena cava dilatation. 6. Presence of a left pleural effusion.
[2016-09-03 16:00] VITALS: BP 162/88
--- NOTE | 2016-09-03 18:16 | IPN ---
DATE: 09/03/2016 SUBJECTIVE: The patient was seen and examined at the bedside today in the morning during hemodialysis procedure. He is tolerating the hemodialysis procedure well. Patient reports that he was seen by cardiology. They are waiting for further test reports before the final recommendations. REVIEW OF SYSTEMS: The patient denies any fever, chills, rigors, headache, nausea, vomiting, chest pain, palpitations. He reports that his blood pressure was high but that is improving with hemodialysis and interpretation at this time. The rest of the review of systems is negative. OBJECTIVE: VITAL SIGNS: Temperature is 98.2 degrees Fahrenheit, blood pressure is 158/62, pulse is 65, respiratory rate of 18, saturating 98% on room air. INTAKE/OUTPUT: His weight in the bed scale is 90.7 kg today. PHYSICAL EXAMINATION: GENERAL: The patient is awake, alert, oriented times three, laying in bed getting hemodialysis done in no apparent distress at this time. HEAD AND NECK EXAM: Extraocular muscles intact. Pupils equally round and reactive to light. Neck is supple. There is no jugular venous distention (JVD). CARDIOVASCULAR: S1, S2, regular rate. No murmur, rub or gallop. RESPIRATORY: Chest is clear to auscultation bilaterally. Bilateral equal air entry. No rales or rhonchi. ABDOMEN: Abdomen is soft. Positive bowel sounds. Nontender. No ascites. No organomegaly. EXTREMITIES: No clubbing or cyanosis. Pulses are 2+. There is no edema of the bilateral lower extremities. CENTRAL NERVOUS SYSTEM: No focal neurological deficit. Power is 5/5 in all extremities. PSYCHIATRIC: Normal mood and affect. LAB REVIEW: CBC showed a hemoglobin of 9.7, platelets of 197. BMP showed sodium 141, potassium 4.1, chloride 104, bicarbonate 28, BUN 34, creatinine 10.7, albumin 3.1. CURRENT INPATIENT MEDICATIONS: The patient's medications were all reviewed by me. He has been started on Cardizem 180 mg by mouth daily. His isosorbide dinitrate has been stopped. He has been started on isosorbide mononitrate 20 mg by mouth daily. Losartan has been stopped. There is no other change in the medications today as compared with yesterday. ASSESSMENT: 76-year-old male with past medical history of hypertension, end-stage renal disease, on hemodialysis, history of congestive heart failure, admitted at this time because of fluid overload. PLAN: 1. Congestive heart failure and fluid overload. The patients volume status is optimized now. He is again getting hemodialysis according to his regular schedule. We will try to do an interpretation of 2.5 liters as tolerated by his blood pressure. I have decreased patient's dry weight to 92 kg now. Patient was seen by cardiology yesterday for history of low ejection fraction and V-tachs on the monitor on telemetry. Repeat echocardiogram result is back which showed left ventricular ejection fraction was 40-45% with the grade 1 diastolic dysfunction. There was a moderate sized pericardial effusion. We are waiting for further recommendations from cardiology. 2. Hypertension. Patient was admitted with hypertensive urgency. He was seen by cardiology. His losartan has been stopped because of history of bilateral nephrectomies. Patient has been started on Cardizem. He continues to be on Coreg, isosorbide has been changed to isosorbide mononitrate 30 mg by mouth daily. I have added clonidine, his home dose of 0.1 mg by mouth daily as needed for systolic blood pressure more than 170. 3. End-stage renal disease, on hemodialysis. The patient's regular dialysis days are Tuesday, Tuesday, Tuesday. He is being dialyzed according to his regular scheduled today. DISCHARGE PLANNING: It is okay to discharge the patient from nephrology standpoint by tomorrow morning if he remains stable and if he is cleared by cardiology.
--- NOTE | 2016-09-03 18:22 | IPNPDOC ---
Text Note Date of Service The patient was seen on 09/03/16. NOTE Subjective: Patient seen and examined at bedside. States he is feeling fine. Is having some clogging in his R ear and states he believes that some mucous is plugged up there. Denies fevers, chills, chest pain, palpitations, SOB, nausea, vomiting, abdominal pain, diarrhea, constipation, urinary symptoms, weakness in his extremities. Denies hematochezia. Denies runny nose, sore throat, cough. Denies orthopnea and PND. Denies lower extremity edema bilaterally. Objective: Vitals: T: 98.4 BP: 174/82, RR: 18 P: 62 O2 Saturation: 96% on room air. I/O: 1140/0 mL mL yesterday. Wt: 90.2 kg (90.7 kg yesterday) New Dry weight is: 92 kgs from 94 kgs General: Pleasant and cooperative elderly sitting up comfortably in bed. Awake, alert, oriented x 3. In NAD. HEENT: Head: Normocephalic, atraumatic. Eyes: Sclera are nonicteric. Nose: No external lesions. Neck: Supple. Respiratory: Lungs clear to auscultation bilaterally. Fistula in place at R upper chest without surrounding erythema/warmth. Cardiovascular: regular rate and rhythm, with no murmurs, rubs or gallops. Chest: Symmetrical chest rise bilaterally. Abdomen: soft, nontender, nondistended, no hepatosplenomegaly appreciated. Bowel sounds present. Extremities: No edema present in lower extremities bilaterally. Musculoskeletal: Normal ROM. Neurological: No focal neurologic deficits appreciated bilaterally. Integumentary: Scars on LUE appreciated from previous surgeries/fistula surgery. Vascular: +2 dorsalis pedis and radial pulses bilaterally. Laboratory data: Please see below. CBC remarkable for Hgb 9.7. Please see below. Imaging: No new imaging. EKG: Sinus rhythm with sinus arrhythmia. Possible L atrial anteroseptal infarction of undeterminate age. Moderate T wave abnormality. Lateral ischemia. Inferior Ischemia. T wave inversions present. Rate: 64. Echo report pending. Assessment: 76 yo M with PMH significant for HTN, ESRD on HD, CAD, and anemia of chronic renal failure is presenting for shortness of breath secondary to fluid overload vs. acute on chronic CHF exacerbation and hypertensive urgency. Plan: -SOB 2/2 Fluid Overload: SOB itself has resolved. Clinically, no palpable LE edema. However, Echocardiogram from [facility] last week reveals a LVEF of 25-30% and systolic HF is presumed. Need for AICD needs to be determined. Will appreciate Dr. Lanier's in put. In addition, patient had 9 beats of NSVT AT [address] Lanier had placed patient on cardizem as SBPs were in the 190s ysterday. A repeat echocardiogram was done. Will await recommendations from Dr. Lanier for further management. Plan to monitor patient over weekend and hope for discharge Tuesday if stable. Will follow with Dr. Maldonado as outpatient upon discharge. Ruled out fluid and medication noncompliance. No other acute infectious process determined. BNP of 2049. Receiving hemodialysis today. May receive extra dialysis if necessary. Nephrology consulted. Emergent fluid management. Check I/Os Daily weights. New Dry Weight is: 92 kgs from old dry weight of 94 kgs. C/w Fluid Restriction 1.5 L Cardiac markers revealed elevated troponins. Please see below. Most likely related to renal disease and stretching of heart due to fluid overload/CHF. -Hypertensive Urgency: BP uncontrolled and was 174/[address] Lanier started diltiazem. Losartan discontinued. Continue beta marlo carvedilol for now to keep pressures ideally >120-140. Can use clonidine as needed, nitrates as needed (isosorbide mononitrate), hydralazine as needed, and titrate meds if uncontrolled. -Hx of Renal Cell Ca/ESRD on HD: New Dry weight 92 kg and used to be 94 kg. Continue with Nephrology recommendations, dialysis and fluid management. Received dialysis yesterday. Is due for dialysis today. Appreciate input. -CAD: continue aspirin. Evaluate for need for statin therapy and if any significant allergy. -Continue home medications. -Diet: no salt and fluid restriction. DVT ppx: heparin Immunizations as per protocol. CODE STATUS: FULL CODE My preceptor for this patient encounter was Dr. Adrianne Fletcher, and was physically present in the building during the encounter and was fully available. As needed, all aspects of the patient interview, examination, medical decision making process, and medical care plan development were reviewed and approved by the preceptor. Preceptor is aware and concurs with the plan as stated in the body of this note and will attest to such by his/her cosignature. VS,Fishbone, I+O VS, Fishbone, I+O Laboratory Tests 09/03/16 05:36 Red Blood Count 3.36 L, Mean Corpuscular Volume 89.5, Mean Corpuscular Hemoglobin 28.9, Mean Corpuscular Hemoglobin Concent 32.3, Red Cell Distribution Width 17.4 H, Anion Gap 8 Vital Signs Date Time Temp Pulse Resp B/P (MAP) Pulse Ox O2 Delivery O2 Flow Rate FiO2 09/03/16 16:00 98.2 106 18 162/88 (112) 98 Room Air 09/02/16 11:30 I&O- Last 24 Hours up to 6 AM 09/03/16 05:59 Intake Total 1020 ml Output Total 0 ml Balance 1020 ml TABITHA ROWELL OGME-1 Sep 03, 2016 18:22
[2016-09-03 19:39] VITALS: BP 154/78
[2016-09-04] VITALS: BP 146/72
[2016-09-04 04:37] VITALS: BP 168/84
[2016-09-04] MEDS: SLF 3 ML SYR IV SCH (04:59)
[2016-09-04] MEDS: HEPARIN SOD (PORCINE) 5000 UNITS/ML VIAL SC SCH (05:00)
[2016-09-04 05:01] LABS: MEAN CORPUSCULAR HEMOGLOBIN 29.4 pg (27.0-33.0); MEAN CORPUSCULAR HGB CONC 32.8 g/dl (32.0-36.5); MEAN CORPUSCULAR VOLUME 89.7 fl (80.0-96.0); RED CELL DISTRIBUTION WIDTH 17.5 % (11.5-14.5); WHITE BLOOD COUNT 4.5 K/mm3 (4.0-10.0)
[2016-09-04 05:28] LABS: ALBUMIN 3.2 GM/DL (3.2-5.2); CALCIUM LEVEL 8.7 MG/DL (8.8-10.2); CREATININE FOR GFR 6.97 MG/DL (0.70-1.30); PHOSPHORUS LEVEL 2.9 MG/DL (2.5-4.9); POTASSIUM SERUM 4.3 MEQ/L (3.5-5.1)
[2016-09-04] MEDS ORDERED: CARD180C4 PO (07:36)
[2016-09-04] MEDS ORDERED: ISOS30TA4 PO (07:36)
[2016-09-04 08:00] VITALS: BP 146/76
[2016-09-04] MEDS: OMEPRAZOLE 20 MG CAP PO SCH (08:29)
[2016-09-04] MEDS: ASPIRIN 81 MG ENTERIC TAB PO SCH (08:29)
[2016-09-04] MEDS: CINACALCET 30 MG TAB (SENSIPAR) PO SCH (08:29)
[2016-09-04] MEDS: VITAMIN D 1,000 INTERNATIONAL UNITS TABLET PO SCH (08:29)
[2016-09-04] MEDS: CALCIUM ACETATE 667 MG GELCAP PO SCH (08:29)
[2016-09-04] MEDS: FEBUXOSTAT 40 MG TABLET (ULORIC) PO SCH (08:29)
[2016-09-04] MEDS: (RENVELA) SEVELAMER **CARBONate** 800 MG TAB PO SCH (08:29)
[2016-09-04] MEDS: MULTIVITAMINS/MINERALS THERAP 1 TAB PO SCH (08:29)
[2016-09-04] MEDS: diltiaZEM **CD** 180 MG CAP PO SCH (08:30)
[2016-09-04] MEDS: ISOSORBIDE MON. (IMDUR) 30 MG XR TAB PO SCH (08:31)
[2016-09-04 08:32] VITALS: BP 146/76
[2016-09-04] MEDS: CARVedilol 12.5 MG TAB PO SCH (08:32)
[2016-09-04] MEDS: TIOTROPIUM INHALER/CAPSULE (SPIRIVA) INH SCH (08:59)
[2016-09-04] MEDS ORDERED: DILT120T PO (09:16)
[2016-09-04] MEDS ORDERED: ISOS20TA PO (09:18)
--- NOTE | 2016-09-04 21:21 | DS.PDOC ---
Discharge Summary General Date of Admission September 01, 2016 at 07:05 Discharge Summary Consults: Discharge diagnosis: Secondary diagnosis: Hospital course: Progress note on date of discharge: Subjective: Objective: Vitals: Gen.: [Patient awake, alert and oriented, verbal and able to answer questions appropriately. He does not appear to be in any acute distress] Heart: [Regular rate and rhythm, normal S1-S2. No murmurs, rubs, clicks or gallops] Lungs: [Clear to auscultation bilaterally. No wheezes, rales or rhonchi] Abdomen: [Active bowel sounds, soft, nontender, no masses to palpation] Labs: Assessment: Disposition: Follow-up: Activity: Diet: Medications on discharge: Cc: Time spent on discharge: Vital Signs/I&Os Vital Signs Date Time Temp Pulse Resp B/P (MAP) Pulse Ox O2 Delivery O2 Flow Rate FiO2 09/04/16 08:32 61 146/76 09/04/16 08:00 97.5 19 100 Room Air 09/02/16 11:30 I&O- Last 24 Hours up to 6 AM 09/04/16 05:59 Intake Total 900 ml Output Total 2500 ml Balance -1600 ml Laboratory Data Labs 24H Laboratory Tests 2 09/04/16 04:29: Blood Urea Nitrogen 22H, Creatinine 6.97H, Sodium Level 141, Potassium Level 4.3 , Chloride Level 105, Carbon Dioxide Level 29, Anion Gap 7L, Glomerular Filtration Rate 10.0L, Calcium Level 8.7L, Phosphorus Level 2.9, Albumin 3.2 CBC/BMP Laboratory Tests 09/04/16 04:29 Red Blood Count 3.37 L, Mean Corpuscular Volume 89.7, Mean Corpuscular Hemoglobin 29.4, Mean Corpuscular Hemoglobin Concent 32.8, Red Cell Distribution Width 17.5 H, Anion Gap 7 L Discharge Medications Scheduled Aspirin (Aspir-81) 81 Mg Tab, 81 MG PO DAILY, (Reported) Calcium Acetate (Calcium Acetate) 667 Mg Cap, 1,334 MG PO BID, (Reported) Carvedilol (Carvedilol) 25 Mg Tab, 25 MG PO BID, (Reported) Cholecalciferol (D3-1000) 1,000 Unit Cap, 1,000 UNIT PO DAILY, (Reported) Cinacalcet Hydrochloride (Sensipar) 30 Mg Tab, 30 MG PO DAILY, (Reported) Diltiazem HCl (Diltiazem HCl) 120 Mg Tab, 180 MG PO DAILY Diltiazem Hcl (Cardizem Cd) 180 Mg Cap, 180 MG PO DAILY Febuxostat (Uloric) 40 Mg Tab, 40 MG PO DAILY, (Reported) Isosorbide Mononitrate (Isosorbide Mononitrate ER) 30 Mg Tab, 30 MG PO DAILY Isosorbide Mononitrate (Isosorbide Mononitrate) 20 Mg Tab, 30 MG PO DAILY Multivitamins *[facility] STOCKED* (Thera M Plus *[facility] STOCKED*) 1 Tab Tab, 1 TAB PO DAILY, (Reported) Omeprazole (Omeprazole) 20 Mg Cap, 20 MG PO DAILY, (Reported) Sevelamer Carbonate (Renvela) 800 Mg Tab, 2,400 MG PO DAILY, (Reported) WITH BREAKFAST Sevelamer Carbonate (Renvela) 800 Mg Tab, 1,600 MG PO BID, (Reported) LUNCH AND DINNER Tiotropium [place] Monohydrate (Spiriva Handihaler) 5 Inhalation/Inhaler Powd, 1 INHALATION INH DAILY, (Reported) Scheduled PRN Albuterol Sulfate (Proventil Hfa) 167 Puff/6.7 Gm Aers, 2 PUFFS INH Q4H PRN for SHORTNESS OF BREATH, (Reported) Clonidine Hydrochloride (Clonidine HCl) 0.1 Mg Tab, 0.1 MG PO DAILY PRN for elevated B/P, (Reported) Colchicine (Colchicine) 0.6 Mg Tab, 0.6 MG PO DAILY PRN for gout flair up, ( Reported) Sevelamer Carbonate (Renvela) 800 Mg Tab, 1,600 MG PO PRN PRN for WITH SNACKS, ( Reported) Allergies Coded Allergies: Amlodipine (Verified Allergy, Unknown, 08/03/16) Indomethacin (Verified Allergy, Unknown, 07/20/16) Nifedipine (Verified Allergy, Unknown, 07/20/16) Hydralazine (Verified Adverse Reaction, Intermediate, elevated bp headache , 08/03/16) TABITHA ROWELL OGME-1 Sep 04, 2016 21:21
== END 2016-09-04 10:30 | disposition home health service (06) | DRG 291 ==
LOC: EDBD 05:51 → M ED 06:56 → M ED INP 07:05 → M PCU 14:05
PROVIDERS: ADMIT General Practice; ATTEND General Practice
PROC: 5A1D60Z (ICD-10-PCS; principal; 2016-09-01)
DX: I50.21 Acute systolic (congestive) heart failure (principal); N18.6 End stage renal disease; N25.81 Secondary hyperparathyroidism of renal origin; I13.2 Hypertensive heart and chronic kidney disease with heart failure and with stage 5 chronic kidney disease, or end stage renal disease; E87.70 Fluid overload, unspecified; R06.02 Shortness of breath; Z79.82 Long term (current) use of aspirin; Z79.899 Other long term (current) drug therapy; Z88.8 Allergy status to other drugs, medicaments and biological substances; D63.1 Anemia in chronic kidney disease; I16.0 Hypertensive urgency; M10.9 Gout, unspecified; Z85.46 Personal history of malignant neoplasm of prostate; Z87.891 Personal history of nicotine dependence

== ENCOUNTER → 2018-02-15 | Outpatient (CLI) | payer MEDICARE, OTHER | LOC: M SMT 13:39 | DX: N18.9 Chronic kidney disease, unspecified (principal); D63.1 Anemia in chronic kidney disease | CPT/HCPCS: 36415 ==

== ENCOUNTER → 2018-02-16 | Outpatient (CLI) | payer MEDICARE, OTHER ==
[~2018-02-16] MED LIST changes: -/NEPHROTA PO; +ACETAMINOPHEN 325 MG TAB PO; -ALBU17IN2 INH; -ALLO100T PO; -ASPI81TA85 PO; -CHOLPOW39 PO; -CINA30TA PO; -CLON-412 PO; -COLC1TAB13 PO; -CORE25TA PO; -CORE6.25 PO; -D-101000 PO; -DOCU10ELUD PO; -FEBU40TA PO; -HYDR100T13 PO; -LEVI10TA22 PO; -LOSA100T36 PO; -METHY25TA PO; -MINO25TA PO; -MULT1TAB18 PO; -OMEP20CA3 PO; -RENV2TAB PO; -SENS30TA PO; -SEVE80TAB PO; -TIOT18INH INH; -TUMS500C PO; -TYLE325T5 PO; -VITA100037 PO; +diphenhydrAMINE 25 MG CAP PO
== END ==
LOC: M INFU 10:36
DX: N18.9 Chronic kidney disease, unspecified (principal); D63.1 Anemia in chronic kidney disease; Z79.899 Other long term (current) drug therapy; Z88.8 Allergy status to other drugs, medicaments and biological substances; Z53.8 Procedure and treatment not carried out for other reasons

== ENCOUNTER 2018-03-07 09:05 | Outpatient (CLI) | payer MEDICARE, OTHER ==
[2018-03-07] MEDS: ACETAMINOPHEN 325 MG TAB PO (10:33)
[2018-03-07] MEDS: diphenhydrAMINE 25 MG CAP PO (10:34)
[2018-03-07 10:55] LABS: IMMEDIATE SPIN CROSSMATCH 1 1
== END 2018-03-07 13:25 | disposition home or self-care (01) ==
LOC: M INFU 09:05
DX: N18.9 Chronic kidney disease, unspecified (principal); D63.1 Anemia in chronic kidney disease; Z88.8 Allergy status to other drugs, medicaments and biological substances
CPT/HCPCS: 36430

== ENCOUNTER → 2018-04-27 | Outpatient (CLI) | payer MEDICARE, OTHER ==
[~2018-04-27] MED LIST changes: +/NEPHROTA PO; -ACETAMINOPHEN 325 MG TAB PO; +ALBU17IN2 INH; +ALLO100T PO; +ASPI81TA85 PO; +CALC1CAP PO; +CARD180C4 PO; +CARV25TA PO; +CHOLPOW39 PO; +CINA30TA PO; +CLON-412 PO; +COLC1TAB13 PO; +CORE25TA PO; +CORE6.25 PO; +D-101000 PO; +DILT120T PO; +DOCU10ELUD PO; +FEBU40TA PO; +HYDR100T13 PO; +ISOS20TA PO; +ISOS30TA4 PO; +LEVI10TA22 PO; +LOSA100T36 PO; +LOSA100T50 PO; +METHY25TA PO; +MINO2.5T PO; +MULT1TAB18 PO; +OMEP20CA3 PO; +RENV2TAB PO; +SENS30TA PO; +SEVE80TAB PO; +TIOT18INH INH; +TUMS500C PO; +TYLE325T5 PO; +VITA100067 PO; +VITMTA PO; -diphenhydrAMINE 25 MG CAP PO
--- NOTE | 2018-04-27 12:48 | REP ---
Chest two views HISTORY: Cough Comparison: 09/02/2016 Increase in interstitial markings is present in the lower lobes consistent with chronic interstitial fibrosis. Linear densities are present in the left lower lobe consistent with atelectasis or scar. The cardiac silhouette is enlarged. The pulmonary vasculature is normal in appearance. The bony structure is intact. IMPRESSION: 1. Bibasilar chronic interstitial fibrosis. 2. Left lower lobe atelectasis or scar. 3. Cardiomegaly. Electronically Signed by Dennis Brooke MD 04/27/2018 12:40 P
== END ==
LOC: M SMT 12:01
PROVIDERS: ATTEND Internal Medicine Nephrology
DX: J98.4 Other disorders of lung (principal); I51.7 Cardiomegaly; R05 Cough

== ENCOUNTER → 2018-08-04 | Outpatient (CLI) | payer MEDICARE, OTHER ==
[~2018-08-04] MED LIST changes: -/NEPHROTA PO; -CINA30TA PO; +CINA30TA4 PO; -DOCU10ELUD PO; +DOCU5LIQ PO; +NEPH1TAB8 PO; -SEVE80TAB PO
--- NOTE | 2018-08-04 16:49 | REP ---
MR thoracic spine without contrast History: Back pain There is no disc bulge or herniation. The spinal canal and the neural foramina are patent. The spinal cord is normal in signal intensity. There is loss of height of several mid and lower thoracic intervertebral discs consistent with disc degeneration . Normal signal intensity is present in the thoracic vertebral bodies. Anterior osteophytes are present throughout the thoracic spine. Impression: Degenerative change as described above. Electronically Signed by Dennis Brooke MD 08/04/2018 04:41 P
== END ==
LOC: M RAD 15:41
PROVIDERS: ATTEND Internal Medicine Nephrology
DX: M51.34 Other intervertebral disc degeneration, thoracic region (principal); M25.78 Osteophyte, vertebrae

== ENCOUNTER → 2019-01-05 | Outpatient (CLI) | payer MEDICARE, OTHER ==
[~2019-01-05] MED LIST changes: -FEBU40TA PO; +FEBU40TA4 PO; +OMEP20CA4 PO
--- NOTE | 2019-01-05 18:52 | REPVR ---
PROCEDURE INFORMATION: Exam: CT Chest Without Contrast Exam date and time: 01/05/2019 6:11 PM Clinical history: 78 years old, male; Cough; Additional info: Cough, renal vascular HTN TECHNIQUE: Imaging protocol: Computed tomography of the chest without contrast. 3D rendering: MIP reconstructed images were created and reviewed. Radiation optimization: All CT scans at this facility use at least one of these dose optimization techniques: automated exposure control; mA and/or kV adjustment per patient size (includes targeted exams where dose is matched to clinical indication); or iterative reconstruction. COMPARISON: CR CHEST 2 VIEWS 04/27/2018 12:07 PM FINDINGS: Lungs: Airways demonstrated in both lungs consistent with inflammation and probable bronchitis. Bibasilar atelectasis. Lungs otherwise clear. Pleural space: Unremarkable. No pneumothorax. No pleural effusion. Heart: There is moderate atherosclerotic calcification of the coronary arteries. Aorta: The aorta demonstrates mild atherosclerotic calcification. Lymph nodes: Unremarkable. No enlarged lymph nodes. Intraperitoneal space: There is a moderate amount of free intraperitoneal fluid present. Bones/joints: The spine demonstrates mild degenerative changes. Soft tissues: Unremarkable. IMPRESSION: Airways demonstrated in both lungs consistent with inflammation and probable bronchitis. No evidence of pneumonitis. Electronically signed by: Hardik Corona On 01/05/2019 18:51:41 PM
== END ==
LOC: M RAD 17:48
PROVIDERS: ATTEND Internal Medicine Nephrology
DX: I15.0 Renovascular hypertension (principal); R05 Cough; Z99.2 Dependence on renal dialysis

== ENCOUNTER → 2019-03-23 | Outpatient (CLI) | payer MEDICARE, OTHER ==
[~2019-03-23] MED LIST changes: +GASTROGRAFIN SOLUTION 30ML (Q9963) As Ordered ONE; +ISOVUE-370 76% 100ML VIAL (Q9967) As Ordered ONE; +OMEP-172 PO; -OMEP20CA4 PO
--- NOTE | 2019-03-23 16:31 | REP ---
CT chest with IV contrast: History: Abnormal weight loss. The patient is status post bilateral nephrectomy, renal and prostate malignancy, on dialysis. Comparison chest CT study January 05, 2019. CT contrast dose: 100 ml of intravenous Isovue 370. CT findings: There is evidence of a mild ascites in the upper abdomen. There is bilateral gynecomastia. There is no evidence of pleural or pericardial effusion. Vascular calcification is noted. There is no evidence of aortic aneurysm or dissection. No filling defect is seen in the pulmonary arterial tree to suggest pulmonary embolus. There are multiple thyroid nodules bilaterally all of which are small. No pulmonary mass lesion is seen. No infiltrate is noted. There are mild bibasilar fibrotic changes. There are degenerative changes in the thoracic spine. No bony destructive lesion is appreciated. No hilar or mediastinal mass or adenopathy is observed. Impression: Mild bibasilar fibrosis. Upper abdominal ascites. No acute cardiopulmonary disease seen. Electronically Signed by Daniel Williamson MD 03/23/2019 04:22 P
--- NOTE | 2019-03-23 17:22 | REP ---
CT abdomen without and with IV contrast: With oral contrast. History: Abnormal weight loss. History of prostate and renal malignancy, status post bilateral nephrectomy on dialysis. CT contrast dose: 100 mL of intravenous Isovue 370 is administered. 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 Bowel gas pattern is unremarkable. There is mild to moderate diffuse abdominal ascites. Normal appendix is seen in the right lower quadrant. Small and large intestinal bowel loops are unremarkable. No abnormalities noted in the pancreas. The liver and spleen are normal in size. No significant hepatic or splenic lesion is observed. The gallbladder is unremarkable. No other abnormality. No retroperitoneal mass or adenopathy is observed. No bony destructive lesion is appreciated. There is no evidence of mass or adenopathy in the nephrectomy bed on either side. Normal adrenals are seen in place. Impression: Mild to moderate ascites with peritoneal dialysis catheter in place. Vascular calcification. Normal appendix. Otherwise negative. Electronically Signed by Daniel Williamson MD 03/24/2019 09:01 A
== END ==
LOC: M RAD 13:38
PROVIDERS: ATTEND Internal Medicine Nephrology
DX: R63.4 Abnormal weight loss (principal); Z99.2 Dependence on renal dialysis; R05 Cough
CPT/HCPCS: 71260; 74178; Q9963; Q9967

== ENCOUNTER 2019-05-01 15:41 | Inpatient (IN) | payer MEDICARE, OTHER ==
[~2019-05-01] VITALS: Ht 174 cm; Wt 77.4 kg
[~2019-05-01 15:41] MED LIST changes: -GASTROGRAFIN SOLUTION 30ML (Q9963) As Ordered ONE; -ISOVUE-370 76% 100ML VIAL (Q9967) As Ordered ONE; -OMEP-172 PO; +OMEP1CAP73 PO
[2019-05-01 19:57] VITALS: BP 170/96
[2019-05-01] MEDS ORDERED: MOM 30ML SUSPENSION UDC PO PRN (20:30)
[2019-05-01] MEDS ORDERED: MAALOX 30 ML SUSP *UDC PO PRN (20:30)
--- NOTE | 2019-05-01 20:34 | HPEPDOC ---
[facility] Medical History & Physical Date of Admission May 01, 2019 Date of Service: May 01, 2019 Attending Physician: MOLLY CHIANG MD History and Physical TIME OF SERVICE: 9:20 PM CHIEF COMPLAINT: Weakness HISTORY OF PRESENT ILLNESS: The patient received Percocet and was listless therefore his provided the majority of the history. This is a 78-year-old man was transferred from an outside hospital where he presented with complaints of weakness for several days; according to the patient's , he slipped and almost had a fall. He is been having difficulties taking care of him. About one month ago after clipping his toenails, he developed an infection at hi s left large and had a surgical procedure done on it. Over the last week the toe became discolored. The patient denies having shortness of breath, nausea, fevers, chills, chest pain or any other acute complaints at this time. He had several tests done at the outside hospital: WBC 7.7, hemoglobin 11.6, platelets 238. Sodium 133, potassium 3.4, chloride 90, bicarbonate 28, BUN 23, creatinine 11.1, Luke was 118, GFR 6. BMP 20,588, troponin 0.09. D-dimer 0.71. The chest x-ray was unremarkable. The EKG showed first-degree AV block with PVCs and a rate of 63. He had a CT of the chest as well, we will ask the Department of radiology to upload the images and report . Influenza was negative. 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 CAD ALLERGIES: Please see below. HOME MEDICATIONS: Please see below. PHYSICAL EXAMINATION: VITAL SIGNS: 97.8 T / 97% on RA / BP 170/96 / HR 71 / RR 16 GEN: well-nourished / well developed/ NAD INTEGUMENT: not flushed/ his skin is not dusky in color, but is cool to touch/his left hallux is hyperpigmented with an ulcer on the anteromedial aspect of the toe/ HEENT: NCAT / lips acyanotic /mucus membranes moist and pink / sclera anicteric CVS: RRR/he has a systolic murmur/ no lower extremity edema LUNGS: able to speak full sentences without stopping to take a breath / no coughing / lungs are clear to auscultation bilaterally on room air ABDOMEN: Contour (flat,) / the PD catheter is covered with clean and dry dressings/soft & not tender with palpation MSK/EXTREMITIES: range of motion intact in all 4 extremities NEURO: CN 2-12 are grossly intact / speech is not dysarthric PSYCH: alert and oriented to person / verbal response is slightly slow LABORATORY DATA: See above IMAGING: See above ASSESSMENT: Mr. Mckinney is a 79-year-old male with a past medical history of hypertensive nephrosclerosis and PVD, bilateral nephrectomies for renal cell cancer, anemia of renal disease, chronic systolic and diastolic CHF, chronic hypertension, chronic CAD, chronic hypertension, and history of prostate cancer was transferred from an outside hospital for evaluation of weakness and left toe infection. PLAN: 1. Weakness/debility. Cause to be determined. He has fallen recently Plan: admit to medical floor/pending PT eval the daytime team and consider PFS consult for placement 2. Encephalopathy ? Plan: hold Percocet / if his mental status doesnt' improve in 24H the day time team may consider CT of the head to r/o subacute CVA 3.Left hallux infection. Secondary to arterial ulcer Rule out wet gangrene Plan: Follow-up will cultures/ IV clindamycin/podiatry consult/follow-up arterial Doppler prior to considering vascular surgery consult 4. Elevated troponin. The patient denies having any chest pain. This may be due to ESRD. Plan: Telemetry/trend tropes/follow-up EKG 5. ESRD on PD with chronic anemia Plan: Monitor I's and O's and daily weights / Nephrology consult / Continue Sensipar, sevelamer and Procrit as scheduled / renal diet 6. Chronic systolic/diastolic CHF He is clinically compensated despite elevated BNP. Plan: Monitor I's and O's, daily weights/salt and fluid restriction/ continue metoprolol 7. Chronic hypertension Plan: metoprolol and isosorbide 8. 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 Chronic CAD Plan: Continue aspirin and metoprolol 10. 1st Degree AV block 11. Elevated D-dimer ? Age-adjusted cut off for d-dimer is age 10 We'll follow-up on the report of the CT of the chest from the outside hospital in the morning once it has been uploaded on our system DVT PROPHYLAXIS: Heparin prophylaxis dose DISPOSITION: Home versus placement after more than 2 midnights stay Vital Signs Laboratory Tests 05/01/19 21:17: White Blood Count 6.9, Red Blood Count 4.08L, Hemoglobin 13.1L, Hematocrit 39.5L, Mean Corpuscular Volume 96.8H, Mean Corpuscular Hemoglobin 32.1, Mean Corpuscular Hemoglobin Concent 33.2, Red Cell Distribution Width 15.2H, Platelet Count 242, Nucleated Red Blood Cells % (auto) 0.0, Sodium Level 131L, Potassium Level 3.8, Chloride Level 93L, Carbon Dioxide Level 27, Anion Gap 11, Blood Urea Nitrogen 25H, Creatinine 11.40*H, Glomerular Filtration Rate 5.7L, Fasting Glucose 119H, Calcium Level 10.7H, Total Bilirubin 0.3, Aspartate Amino Transf (AST/SGOT) 10, Alanine Aminotransferase (ALT/SGPT) 22, Alkaline Phosphatase 79, Troponin I 0.09, Total Protein 6.5, Albumin 3.0L, Albumin/Globulin Ratio 0.86L Home Medications Scheduled Aspirin (Aspir 81) 81 Mg Tab, 81 MG PO DAILY Calcium Acetate (Calcium Acetate) 667 Mg Cap, 667 MG PO WM Cholecalciferol (Vitamin D3) (Vitamin D3) 1,000 Unit Capsule, 2,000 UNIT PO DAILY Cinacalcet (Sensipar) 30 Mg Tab, 60 MG PO DAILY Epoetin [place] (Procrit) 20,000 Unit/1 Ml Vial, 20,000 UNIT SC 1XWK MONDAYS Isosorbide Mononitrate (Isosorbide Mononitrate ER) 60 Mg Tab.er.24h, 60 MG PO DAILY Metoprolol Succinate (Metoprolol Succinate) 100 Mg Tab.er.24h, 100 MG PO QHS Multivitamins (Thera M Plus Tablet) 1 Tab Tab, 1 TAB PO DAILY Omeprazole (Omeprazole) 20 Mg Cap, 20 MG PO DAILY Potassium Chloride (Potassium Chloride) 20 Meq Tab.er.prt, 20 MEQ PO DAILY Sevelamer Carbonate (Renvela) 800 Mg Tablet, 800 MG PO WM Scheduled PRN Albuterol Sulfate (Proventil Hfa) 6.7 Gm Hfa.aer.ad, 2 PUFF INH QID PRN for SOB/WHEEZING Allopurinol (Allopurinol) 100 Mg Tablet, 100 MG PO DAILY PRN for GOUT FLARE UPS Febuxostat (Uloric) 40 Mg Tab, 40 MG PO DAILY PRN for GOUT FLARE UPS Allergies Coded Allergies: amlodipine (Verified Allergy, Unknown, 05/01/19) indomethacin (Verified Allergy, Unknown, 05/01/19) nifedipine (Verified Allergy, Unknown, 05/01/19) hydralazine (Verified Adverse Reaction, Mild, ELEVATED BP, 05/01/19) A-FIB/CHADSVASC A-FIB History Current/History of A-Fib/PAF?: No Current PO Anticoag Therapy: No MOLLY CHIANG MD May 01, 2019 20:34
[2019-05-01] MEDS ORDERED: DOCUSATE SODIUM 100 MG CAP PO SCH (21:00)
[2019-05-01 21:33] LABS: HEMATOCRIT 39.5 % (42.0-52.0); HEMOGLOBIN 13.1 g/dl (13.5-17.5); MEAN CORPUSCULAR HEMOGLOBIN 32.1 pg (27.0-33.0); MEAN CORPUSCULAR HGB CONC 33.2 g/dl (32.0-36.5); MEAN CORPUSCULAR VOLUME 96.8 fl (80.0-96.0); PLATELET COUNT, AUTOMATED 242 10^3/uL (150-450); RED BLOOD COUNT 4.08 10^6/uL (4.30-6.10); WHITE BLOOD COUNT 6.9 10^3/uL (4.0-10.0)
[2019-05-01 22:13] LABS: BILIRUBIN,TOTAL 0.3 MG/DL (0.2-1.0); CALCIUM LEVEL 10.7 MG/DL (8.8-10.2); CREATININE FOR GFR 11.4 MG/DL (0.70-1.30); GLOMERULAR FILTRATION RATE 5.7 (>42); POTASSIUM SERUM 3.8 MEQ/L (3.5-5.1); TOTAL PROTEIN 6.5 GM/DL (6.4-8.2); TROPONIN I 0.09 NG/ML (< 0.10)
[2019-05-01] MEDS ORDERED: VITA100054 PO (22:32)
[2019-05-01] MEDS ORDERED: POTA20TA6 PO (22:32)
[2019-05-01] MEDS ORDERED: ISOS60TA2 PO (22:32)
[2019-05-01] MEDS ORDERED: PROV108A INH (22:32)
[2019-05-01] MEDS ORDERED: PROC20004 SC (22:32)
[2019-05-01] MEDS ORDERED: METO1TAB33 PO (22:32)
[2019-05-01] MEDS ORDERED: RENV2TAB PO (22:32)
[2019-05-01] MEDS ORDERED: ALLO10TA PO (22:32)
[2019-05-01] MEDS ORDERED: ALBUTEROL 90 MCG/ACT 8GM HFA INHALER INH PRN (23:15)
[2019-05-01] MEDS ORDERED: allopurinoL 100 MG TAB PO PRN (23:15)
[2019-05-01] MEDS ORDERED: FEBUXOSTAT 40 MG TABLET (ULORIC) PO PRN (23:15)
[2019-05-01] MEDS ORDERED: ENTER DRUG NAME HERE (PATIENT'S OWN MED) SC SCH (23:15)
[2019-05-02] MEDS: METOPROLOL SUCC (TopROL XL) 100MG *XL* TAB PO SCH ×3 (01:18→23:39)
[2019-05-02 02:31] LABS: SOURCE, BODY FLUID PERITONEAL
[2019-05-02 02:32] LABS: APPEARANCE, BODY FLUID CLEAR (CLEAR); PERITONEAL FL COLOR PALE YELLOW (COLORLESS)
[2019-05-02] MEDS: CLINDAMYCIN 300 MG in IV 1 EA IV SCH ×4 (02:58→21:31)
[2019-05-02] MEDS ORDERED: FUROSEMIDE 40 MG TAB PO ONE (04:00)
[2019-05-02 06:00] VITALS: BP 142/87
[2019-05-02] MEDS: HEPARIN SOD (PORCINE) 5000 UNITS/ML VIAL (J1644 PER 1000UNITS) SC SCH ×3 (06:04→21:35)
[2019-05-02 06:22] LABS: HEMATOCRIT 35.7 % (42.0-52.0); MEAN CORPUSCULAR HEMOGLOBIN 31.9 pg (27.0-33.0); MEAN CORPUSCULAR HGB CONC 33.6 g/dl (32.0-36.5); MEAN CORPUSCULAR VOLUME 94.9 fl (80.0-96.0); PLATELET COUNT, AUTOMATED 255 10^3/uL (150-450); RED BLOOD COUNT 3.76 10^6/uL (4.30-6.10); WHITE BLOOD COUNT 7.1 10^3/uL (4.0-10.0)
[2019-05-02 06:59] LABS: CALCIUM LEVEL 10.4 MG/DL (8.8-10.2); CREATININE FOR GFR 11.7 MG/DL (0.70-1.30); GLOMERULAR FILTRATION RATE 5.5 (>42); POTASSIUM SERUM 3.6 MEQ/L (3.5-5.1)
[2019-05-02] MEDS: VITAMIN D 1,000 INTERNATIONAL UNITS TABLET PO SCH (08:35)
[2019-05-02] MEDS: OMEPRAZOLE 20 MG CAP PO SCH (08:35)
[2019-05-02] MEDS: CINACALCET 30 MG TAB (SENSIPAR) PO SCH (08:35)
[2019-05-02] MEDS: (RENVELA) SEVELAMER **CARBONate** 800 MG TAB PO SCH ×3 (08:35→18:00)
[2019-05-02] MEDS: ASPIRIN 81 MG ENTERIC TAB PO SCH (08:35)
[2019-05-02] MEDS: MULTIVITAMINS/MINERALS THERAP 1 TAB PO SCH (08:35)
[2019-05-02] MEDS: CALCIUM ACETATE 667 MG GELCAP PO SCH ×3 (08:37→18:00)
[2019-05-02] MEDS: ISOSORBIDE MON. (IMDUR) 60 MG XR TAB PO SCH (08:37)
[2019-05-02] MEDS ORDERED: POTASSIUM CHLORIDE 10 MEQ SR TABLET PO SCH (09:00)
--- NOTE | 2019-05-02 13:41 | REP ---
CT BRAIN WITHOUT IV CONTRAST: CT brain performed without IV contrast. Coronal reconstruction images are performed. There is mild atrophy with no midline shift or mass effect. There are some minor periventricular small vessel ischemic changes in the white matter. No acute intracranial hemorrhage or extra-axial fluid collection is seen. Vascular calcifications are seen in the carotid siphons. A focal parenchymal calcification is seen in the right posterior parietal region near the convexity. IMPRESSION: No acute intracranial findings as discussed above. Electronically Signed by Yunior Amin MD 05/02/2019 11:01 P
[2019-05-02 14:00] VITALS: BP 132/88
[2019-05-02] MEDS: NITROGLYCERIN 2% OINT 1 GM *U/D* PKT TOP SCH ×2 (14:09→21:32)
[2019-05-02] MEDS: MUPIROCIN 2% OINT 22 GM TUBE TOP SCH ×2 (14:10→21:33)
--- NOTE | 2019-05-02 15:34 | IPNPDOC ---
Subjective Date Seen The patient was seen on 05/02/19. Subjective Chief Complaint/HPI Mauricio is resting in bed today. He underwent PD last night. He seems to be appropriate and is able to provide me with background story of what occurred to his left foot. Objective Physical Examination General Exam: Positive: Cooperative, No Acute Distress Eye Exam: Negative: Sclera icteric ENT Exam: Positive: Mucous membr. moist/pink Neck Exam: Positive: Supple; Negative: JVD, thyromegaly Chest Exam: Positive: Clear to auscultation Heart Exam: Positive: Rate Normal Abdomen Exam: Positive: Normal bowel sounds Extremity Exam: Positive: Other (left hallux with small lateral lesion with surrounding erythema and area of necrosis on distal toe and nail. no drainage nor fluctuance appreciated.); Negative: Clubbing, Cyanosis, Edema Neuro Exam: Positive: Normal Speech Psych Exam: Positive: Mood NL Assessment /Plan Assessment # Generalized weakness - PT/OT eval - agree with holding percocet # Metabolic Encephalopathy - CT head shows no acute changes - holding percocet # Left hallux infection. - continue Iv clindamycin - Follow-up will cultures done at [facility] - arterial doppler pending # Elevated troponin due to CKD - no further intervention # CKD stage V on PD # chronic anemia of CKD # Hyperuricemia - nephrology consulted - continue Sensipar, sevelamer and Procrit - continue allopurinol and febuxostat # Chronic HTN # Chronic CAD # Chronic systolic/diastolic CHF - continue asa, metoprolol and isosorbide - compensated Plan/VTE VTE Prophylaxis Ordered?: Yes VTE Exclusion Mechanical Proph: N/A:VTE Prophy Ordered VTE Exclusion Pharmacological: N/A:VTE Prophy Ordered VS, I&O, 24H, Fishbone Vital Signs/I&O Vital Signs Date Time Temp Pulse Resp B/P (MAP) Pulse Ox O2 Delivery O2 Flow Rate FiO2 05/02/19 14:09 132/88 05/02/19 14:00 98.8 60 18 99 Room Air I&O- Last 24 Hours up to 6 AM 05/02/19 06:00 Intake Total 4300 ml Output Total 3200 ml Balance 1100 ml Laboratory Data 24H LABS Laboratory Tests 2 05/01/19 21:17: Nucleated Red Blood Cells % (auto) 0.0, Anion Gap 11, Glomerular Filtration Rate 5.7L, Calcium Level 10.7H, Total Bilirubin 0.3, Aspartate Amino Transf (AST/SGOT) 10, Alanine Aminotransferase (ALT/SGPT) 22, Alkaline Phosphatase 79, Troponin I 0.09, Total Protein 6.5, Albumin 3.0L, Albumin/Globulin Ratio 0.86L 05/02/19 01:59: Body Fluid WBC (Auto) 8, Body Fluid RBC (Auto) < 2, Peritoneal Fluid Source PERITONEAL, Peritoneal Fluid Color PALE YELLOW, Peritoneal Fluid Appearance CLEAR 05/02/19 02:34: Troponin I 0.07# 05/02/19 05:48: Nucleated Red Blood Cells % (auto) 0.0, Anion Gap 12, Glomerular Filtration Rate 5.5L, Calcium Level 10.4H, Troponin I 0.07, Magnesium Level 2.0 CBC/BMP Laboratory Tests 05/01/19 21:17 05/02/19 05:48 Microbiology Microbiology 05/01/19 Blood Culture, Received Pending CHIP BROCK MD May 02, 2019 15:34
--- NOTE | 2019-05-02 18:44 | CR ---
DATE OF CONSULTATION: 05/02/2019 REASON FOR CONSULTATION: Hallux ulceration, left side. Mauricio Mckinney is a 79-year-old male who was admitted with left hallux ulceration as well as weakness. At the time of examination, the patient was drowsy and was not able to answer questionings. He was able to indicate that his toe did cause him pain. PAST MEDICAL HISTORY: Significant for hypertensive nephrosclerosis on peritoneal dialysis, status post bilateral nephrectomies due to renal cell cancer, chronic anemia, gout secondary to end-stage renal disease, chronic congestive heart failure, chronic hypertension, pulmonary hypertension, aortic valve sclerosis, gastroesophageal reflux disease (GERD), chronic coronary artery disease. PAST SURGICAL HISTORY: Includes prostatectomy. SOCIAL HISTORY: Former smoker. ALLERGIES: Include AMLODIPINE, HYDRALAZINE, INDOMETHACIN, and NIFEDIPINE. REVIEW OF SYSTEMS: Unattainable. VITAL SIGNS: Examined. He is afebrile. LABORATORY DATA: Reviewed. White blood cell count is 7.1. LOWER EXTREMITY EXAMINATION: Pedal pulses are nonpalpable on the left side. There has been apparent hallux nail avulsion on the fibular border of the toe. There is some distal eschar at the distal most aspect of this toe. No purulence or other gangrene noted. ASSESSMENT: A patient with peripheral vascular disease status post hallux toenail avulsion with ulceration. PLAN: The patient apparently had attempts to get vascular studies performed but he became agitated and these were unable to be completed. May wait a day or two to see if his mentation improves. Could retry these again. I am not clear what his baseline mental status is as no family was present at time of examination. For now, would apply mupirocin ointment along the wound margin and use Nitrobid paste at the base of the toe. If vascular studies are able to be performed, would consult vascular surgery if results indicated the need for this. We will monitor.
--- NOTE | 2019-05-02 19:28 | CR ---
DATE OF CONSULTATION: 05/02/2019 REQUESTING PHYSICIAN: Dr. Chelo Sheffield. REASON FOR CONSULTATION: Management of end-stage renal disease on peritoneal dialysis. HISTORY OF PRESENT ILLNESS: Mauricio Mckinney is well known to me from the outpatient peritoneal dialysis clinic. He is a 79-year-old male with a past medical history of end-stage renal disease on peritoneal dialysis, history of prostate cancer status post prostatectomy, history of renal cell cancer status post bilateral nephrectomies, congestive heart failure, systemic hypertension, gout, anemia of chronic renal failure, secondary hyperparathyroidism of renal origin, coronary artery disease and other comorbid conditions mentioned below. 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 He has had progressive weakness and loss of balance. He recently had infection of the left great toe over the past few weeks after clipping his toenails. Yesterday at home, he almost fell and his had to support him. She subsequently called the peritoneal dialysis nurse, who recommended that the patient come to the emergency room for further evaluation and treatment. He was transferred to [facility] from [facility]. This morning, patient was seen and evaluated at the bedside and I found him to be lethargic. He was unable to converse or participate in physical exam. He did squeeze fingers with both hands, but did not speak. Nursing staff denied that he received any opioids recently and stated that he was more alert earlier in the morning. His was not present at the time of my visit. REVIEW OF SYSTEMS: Unable to obtain secondary to clinical condition. PAST MEDICAL HISTORY: 1. End-stage renal disease on peritoneal dialysis. 2. History of hypertensive nephrosclerosis. 3. Anemia of chronic renal failure. 4. Gout. 5. Congestive heart failure. 6. Hypertension. 7. Pulmonary hypertension 8. Gastroesophageal reflux disease (GERD). 9. Coronary artery disease. 10. History of prostate cancer. 11. Systemic hypertension. 12. Renal cell cancer. PAST SURGICAL HISTORY: 1. Tunneled hemodialysis catheter placement and removal. 2. Peritoneal dialysis catheter placement. 3. Status post bilateral nephrectomy. 4. Status post prostatectomy. SOCIAL HISTORY: Ex-smoker, , lives with his . No alcohol or drug use. FAMILY HISTORY: No family history of renal failure requiring dialysis. ALLERGIES: AMLODIPINE, HYDRALAZINE, INDOMETHACIN, NIFEDIPINE. HOME MEDICATIONS: - aspirin 81 mg by mouth daily - PhosLo 667 mg by mouth with meal - vitamin D3 2000 units by mouth daily - Sensipar 60 mg by mouth daily - Procrit 20,000 units subcutaneous once weekly - Imdur extended release 60 mg by mouth daily - metoprolol extended-release 100 mg by mouth at bedtime - omeprazole 20 mg by mouth daily - potassium chloride 20 mEq extended-release daily - sevelamer 800 mg by mouth with meal PHYSICAL EXAMINATION: VITAL SIGNS: Temperature 97.2, pulse 75, respiratory rate 16, blood pressure 142/87, saturating 98% on room air. GENERAL: Patient is seen sitting up in bed. Head of the bed is elevated. Eyes are closed, but he opens them to verbal, tactile stimulus, briefly makes eye contact before closing eyes again. NECK: Supple. Jugular veins are not elevated. HEART: Sounds are regular. S1, S2. Systolic murmur. LUNGS: Show symmetric air entry bilaterally. No crackle or rale. ABDOMEN: Soft and has peritoneal dialysis fluid in situ. The peritoneal dialysis (PD) catheter exit site is unremarkable. LOWER EXTREMITIES: Negative for clubbing, cyanosis or edema. The left great toe is discolored and hyperpigmented. LABORATORY DATA: Peritoneal cell count is negative for infection. Sodium 130, potassium 3.6, bicarbonate 27, BUN 29, glucose 134. Hemoglobin 12.0, platelets 255. Blood culture pending. Head CT pending. INPATIENT MEDICATIONS: He is receiving: - clindamycin 300 mg intravenous (IV) every 6 hours - Tylenol as needed - allopurinol 100 mg as needed - aspirin 81 mg by mouth daily - PhosLo 667 mg by mouth with meal - Sensipar 60 mg by mouth daily - Lasix 40 mg by mouth times one - heparin 5000 units subcutaneous every 8 hours - isosorbide mononitrate extended release 60 mg by mouth daily - metoprolol XL 100 mg by mouth at bedtime - multivitamin 1 tablet by mouth daily - omeprazole 20 mg daily - Renvela 800 mg by mouth with meal PROBLEMS: 1. End-stage renal disease on peritoneal dialysis. Patient is well dialyzed. His blood urea nitrogen is less than 30. He was altered at the time of my visit, but this is not from uremia. His volume status is well compensated. His electrolytes are acceptable. His peritoneal fluid analysis is negative for peritoneal infection. He continues on five exchanges daily of 2 liters each 2. Hypertension. Blood pressures were initially elevated, but now improved to 142/87. Home medications have been resumed. 3. Altered mental status. Possibly metabolic. He is not receiving any opioids at this time. A CT of the head is pending. He is afebrile and hemodynamically stable. 4. Systolic and diastolic congestive heart failure. Echocardiogram 2017 with grade 1 diastolic dysfunction and systolic function of 40%. Volume status appears well-compensated and is managed by a peritoneal dialysis. He is on a gentle prescription, given that he is not having much oral intake. 5. Left hallux infection. Managed by the primary team. He is on IV antibiotics and is pending possible podiatry/vascular evaluation and lower extremity arterial ultrasound. He is not receiving any opioids for pain control given the altered mental status. Thank you for involving me in the care of Mr. Mckinney. I will be happy to follow him along with you.
[2019-05-02 22:00] VITALS: BP 134/73
[2019-05-02] MEDS: ACETAMINOPHEN TAB 650MG DOSE (2X325MG) PO PRN (23:00)
[2019-05-03] MEDS: CLINDAMYCIN 300 MG in IV 1 EA IV SCH ×4 (02:07→20:07)
[2019-05-03 06:00] VITALS: BP 164/76
[2019-05-03] MEDS: HEPARIN SOD (PORCINE) 5000 UNITS/ML VIAL (J1644 PER 1000UNITS) SC SCH ×3 (07:04→22:00)
[2019-05-03] MEDS: CALCIUM ACETATE 667 MG GELCAP PO SCH ×3 (08:59→18:00)
[2019-05-03] MEDS: (RENVELA) SEVELAMER **CARBONate** 800 MG TAB PO SCH ×3 (08:59→18:00)
[2019-05-03 09:00] VITALS: BP 168/78
[2019-05-03] MEDS: ASPIRIN 81 MG ENTERIC TAB PO SCH (09:54)
[2019-05-03] MEDS: CINACALCET 30 MG TAB (SENSIPAR) PO SCH (09:54)
[2019-05-03] MEDS: MULTIVITAMINS/MINERALS THERAP 1 TAB PO SCH (09:54)
[2019-05-03] MEDS: OMEPRAZOLE 20 MG CAP PO SCH (09:54)
[2019-05-03] MEDS: VITAMIN D 1,000 INTERNATIONAL UNITS TABLET PO SCH ×3 (09:54→18:13)
[2019-05-03] MEDS: ISOSORBIDE MON. (IMDUR) 60 MG XR TAB PO SCH (09:55)
[2019-05-03] MEDS: NITROGLYCERIN 2% OINT 1 GM *U/D* PKT TOP SCH ×2 (09:56→20:09)
[2019-05-03] MEDS: MUPIROCIN 2% OINT 22 GM TUBE TOP SCH ×2 (09:57→20:07)
[2019-05-03] MEDS: ACETAMINOPHEN TAB 650MG DOSE (2X325MG) PO PRN (10:02)
[2019-05-03 11:37] LABS: HEMATOCRIT 33.9 % (42.0-52.0); HEMOGLOBIN 11.9 g/dl (13.5-17.5); MEAN CORPUSCULAR HGB CONC 35.1 g/dl (32.0-36.5); MEAN CORPUSCULAR VOLUME 93.9 fl (80.0-96.0); PLATELET COUNT, AUTOMATED 258 10^3/uL (150-450); RED BLOOD COUNT 3.61 10^6/uL (4.30-6.10); WHITE BLOOD COUNT 7.3 10^3/uL (4.0-10.0)
--- NOTE | 2019-05-03 11:49 | IPNPDOC ---
Subjective Date Seen The patient was seen on 05/03/19. Subjective Chief Complaint/HPI Mauricio is doing so much better this morning after discontinuation of his percocet. His finance is at the bedside, and she agrees that he's back to his baseline. He's c/o left toe pain. States he didn't sleep well. Unable to obtain arterial doppler yesterday due to lack of cooperation on mauricio's part Objective Physical Examination General Exam: Positive: Alert, Cooperative, No Acute Distress Eye Exam: Negative: Sclera icteric ENT Exam: Positive: Mucous membr. moist/pink Neck Exam: Positive: Supple; Negative: JVD, thyromegaly Chest Exam: Positive: Clear to auscultation Heart Exam: Positive: Rate Normal Abdomen Exam: Positive: Normal bowel sounds Extremity Exam: Positive: Other (left hallux unchanged); Negative: Clubbing, Cyanosis, Edema Neuro Exam: Positive: Normal Speech Psych Exam: Positive: Mood NL Assessment /Plan Assessment # Generalized weakness - PT/OT eval, likely will need placement - holding percocet # Metabolic Encephalopathy - CT head shows no acute changes - holding percocet # Left hallux infection. - continue Iv clindamycin - Follow-up cultures done at [facility] - arterial doppler today - podiatry note reviewed # Elevated troponin due to CKD - no further intervention # CKD stage V on PD # chronic anemia of CKD # Hyperuricemia - nephrology consulted - continue Sensipar, sevelamer and Procrit - continue allopurinol and febuxostat # Chronic HTN # Chronic CAD # Chronic systolic/diastolic CHF - continue asa, metoprolol and isosorbide - compensated Plan/VTE VTE Prophylaxis Ordered?: Yes VTE Exclusion Mechanical Proph: N/A:VTE Prophy Ordered VTE Exclusion Pharmacological: N/A:VTE Prophy Ordered VS, I&O, 24H, Fishbone Vital Signs/I&O Vital Signs Date Time Temp Pulse Resp B/P (MAP) Pulse Ox O2 Delivery O2 Flow Rate FiO2 05/03/19 09:55 168/78 05/03/19 09:00 97.8 58 18 98 05/02/19 14:00 Room Air I&O- Last 24 Hours up to 6 AM 05/03/19 06:00 Intake Total 24003 ml Output Total 9950 ml Balance 580 ml Laboratory Data 24H LABS Laboratory Tests 2 05/03/19 11:25: Nucleated Red Blood Cells % (auto) 0.0 CBC/BMP Laboratory Tests 05/03/19 11:25 Microbiology Microbiology 05/01/19 Blood Culture - Preliminary, Resulted No growth after 24 hours . All specim... CHIP BROCK MD May 03, 2019 11:49
[2019-05-03 12:03] LABS: CALCIUM LEVEL 10.2 MG/DL (8.8-10.2); CREATININE FOR GFR 11.6 MG/DL (0.70-1.30); GLOMERULAR FILTRATION RATE 5.5 (>42)
[2019-05-03] MEDS ORDERED: POTASSIUM CHLORIDE 10% LIQ 20 MEQ/15 ML UDC PO ONE (12:45)
[2019-05-03] MEDS: KCL 10MEQ/100ML SWI (KRUN) 10 MEQ in IV 1 EA IV SCH ×2 (13:23→14:00)
[2019-05-03 14:00] VITALS: BP 168/78
[2019-05-03 14:22] VITALS: BP 167/78
[2019-05-03 15:11] LABS: PHOSPHORUS LEVEL 5.3 MG/DL (2.5-4.9)
[2019-05-03] MEDS ORDERED: POTASSIUM CHLORIDE 10 MEQ SR TABLET PO ONE (15:30)
--- NOTE | 2019-05-03 15:55 | IPN ---
DATE: 05/03/2019 SUKHJINDER Martínez is seen and examined this morning at the bedside. His mentation is dramatically improved. He is interactive, conversational, making jokes; had breakfast this morning. His significant other is present at the bedside. He complains of foot pain. Otherwise denies any other pain. His PD exchanges are going well. Labs today showed hypokalemia. He denies any chest pain or shortness of breath, has not really gotten out of bed. Temperature 97.8, pulse 58, respiratory rate 18, blood pressure 168/78, saturating 98% on room air. Review of intake and output (I and Os) yesterday shows he is net positive 930 mL. Weight in the bed scale today is 85 kg. General: The patient is seen awake, alert, oriented times three, interactive and conversational. In no apparent distress. Extraocular muscles are intact. Ears, Nose and throat are unremarkable. Neck is supple. Jugular veins were not elevated. Heart sounds are regular, S1, S2. There is absolutely no edema in the legs or in the dependent areas. Lungs were clear to auscultation. No crackle, rale or rhonchus. Abdomen is soft and nontender. There are bowel sounds. There is peritoneal dialysis fluid in C-tube. Extremities: The left great toe was not examined today. There is no edema. Neurologic: He is oriented times three and at baseline mentation, interactive, conversational, cooperative with physical examination. Psychiatric: Appropriate mood and effect. Skin: Normal temperature and turgor. LABORATORY DATA Sodium 130, potassium 3.0, bicarbonate 29, hemoglobin 11.9, blood cultures negative times one for 24 hours. INPATIENT MEDICATIONS. He is ordered for potassium chloride 40 mEq p.o. times one and 20 mEq IV. His remainder of medications are unchanged from prior. PROBLEMS: 1. End-stage renal disease on peritoneal dialysis. He is well dialyzed. His volume status is well compensated. He is receiving potassium repletion. His PD fluid analysis was negative for any infection. He continues on five exchanges daily of 2 liters each and they will all be 1.5%. He is on no oral fluid restriction and I have advised him for liberal fluid intake at this time. 2. Hypertension. Systolic has been 130s-160s. In view of his foot infection and also in view of his recent lethargy I am not increasing his antihypertensives. Continue with his home regimen at this time. 3. Hypokalemia IV and by mouth supplementation is ordered. 4. Systolic and diastolic congestive heart failure. Echocardiogram 2017 with grade 1 diastolic dysfunction and left ventricular ejection fraction of 40%. He is very well compensated; actually looks a little bit dry. He is on a gentle PD prescription and I have encouraged him for fluid intake at present. 5. Left hallux infection. He has been evaluated by podiatry and vascular workup is pending, which should be able to be completed now that his mental status has improved. He continues on IV clindamycin and local wound care.
--- NOTE | 2019-05-03 16:39 | REP ---
Bilateral lower extremity arterial Doppler ultrasound: Right lower extremity: Brachial peak systole: Not performed. Dorsalis pedis: 200+ mmHg. SEPTIC TANK SETTER: 200+ mmHg PILO: Not performed. Peak Systolic Phasicity Velocity MANAGER FINANCIAL REPORTING 85 point see biphasic Profunda 57.1 biphasic SFA prox 79.5 biphasic SFA mid 70 points biphasic SFA dist 53 point biphasic Pop 59.8 biphasic URIAH prox 200 biphasic Tib/P tr 80.2 biphasic SEPTIC TANK SETTER pr 45.5 biphasic SEPTIC TANK SETTER dst 26.8 monophasic URIAH dst 50.6 monophasic Left lower extremity: Brachial peak systole: Not performed Dorsalis pedis: 200+ mmHg. SEPTIC TANK SETTER peak systole: 200+ mmHg. PILO: Not performed Peak Systolic Phasicity Velocity MANAGER FINANCIAL REPORTING 85.5 biphasic Profunda 80 point see monophasic SFA prox 72.2 biphasic SFA mid 65 point biphasic SFA dist 74.3 biphasic Pop 56.5 biphasic URIAH prox 83.7 biphasic Tib/P tr 52 point biphasic SEPTIC TANK SETTER pr 61.1 biphasic SEPTIC TANK SETTER dst 94.5 monophasic URIAH dst 7.65 monophasic There is heavily calcified atheroma bilaterally. Cardiac arrhythmia is noted. Therefore. the study is somewhat technically difficult. Right lower extremity: There is 3:1 stenosis in the proximal URIAH. There is monophasic flow in the distal SEPTIC TANK SETTER and URIAH. Left lower extremity: There is monophasic flow in the distal SEPTIC TANK SETTER and URIAH Electronically Signed by Yunior Merritt MD 05/03/2019 04:31 P
[2019-05-03] MEDS ORDERED: ISOSORBIDE MON. (IMDUR) 60 MG XR TAB PO ONE (21:00)
[2019-05-03] MEDS: METOPROLOL SUCC (TopROL XL) 100MG *XL* TAB PO SCH (21:00)
[2019-05-03] MEDS ORDERED: METOPROLOL SUCC (TopROL XL) 50MG **XL** TAB PO ONE (21:00)
[2019-05-03 22:00] VITALS: BP 144/78
--- NOTE | 2019-05-04 00:40 | ECGEPIP ---
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
[2019-05-04] MEDS: CLINDAMYCIN 300 MG in IV 1 EA IV SCH ×3 (02:10→13:14)
[2019-05-04] MEDS: ACETAMINOPHEN TAB 650MG DOSE (2X325MG) PO PRN (02:18)
[2019-05-04 06:00] VITALS: BP 161/83
[2019-05-04 06:01] LABS: HEMOGLOBIN 10.8 g/dl (13.5-17.5); MEAN CORPUSCULAR HEMOGLOBIN 32.1 pg (27.0-33.0); MEAN CORPUSCULAR HGB CONC 33.8 g/dl (32.0-36.5); MEAN CORPUSCULAR VOLUME 95.2 fl (80.0-96.0); PLATELET COUNT, AUTOMATED 243 10^3/uL (150-450); RED BLOOD COUNT 3.36 10^6/uL (4.30-6.10); WHITE BLOOD COUNT 6.4 10^3/uL (4.0-10.0)
[2019-05-04 06:18] VITALS: BP 184/90
[2019-05-04 06:18] LABS: CALCIUM LEVEL 9.8 MG/DL (8.8-10.2); CREATININE FOR GFR 11.3 MG/DL (0.70-1.30); GLOMERULAR FILTRATION RATE 5.7 (>42); POTASSIUM SERUM 3.9 MEQ/L (3.5-5.1)
[2019-05-04] MEDS: HEPARIN SOD (PORCINE) 5000 UNITS/ML VIAL (J1644 PER 1000UNITS) SC SCH ×3 (06:25→21:47)
[2019-05-04] MEDS ORDERED: ISOSORBIDE MON. (IMDUR) 60 MG XR TAB As Ordered ONE (06:40)
[2019-05-04] MEDS: ISOSORBIDE MON. (IMDUR) 60 MG XR TAB PO SCH (06:43)
[2019-05-04 07:33] VITALS: BP 171/84
[2019-05-04] MEDS: ASPIRIN 81 MG ENTERIC TAB PO SCH (09:57)
[2019-05-04] MEDS: CINACALCET 30 MG TAB (SENSIPAR) PO SCH (09:57)
[2019-05-04] MEDS: (RENVELA) SEVELAMER **CARBONate** 800 MG TAB PO SCH ×3 (09:57→18:42)
[2019-05-04] MEDS: MULTIVITAMINS/MINERALS THERAP 1 TAB PO SCH (10:00)
[2019-05-04] MEDS: NITROGLYCERIN 2% OINT 1 GM *U/D* PKT TOP SCH ×2 (10:00→21:47)
[2019-05-04] MEDS: CALCIUM ACETATE 667 MG GELCAP PO SCH ×3 (10:00→18:42)
[2019-05-04] MEDS: OMEPRAZOLE 20 MG CAP PO SCH (10:01)
[2019-05-04] MEDS: MUPIROCIN 2% OINT 22 GM TUBE TOP SCH (10:01)
--- NOTE | 2019-05-04 11:26 | IPNPDOC ---
Date Seen The patient was seen on 05/04/19. Progress Note Mr Mckinney is a 79yo gentleman with progressive weakness, unsteadiness, and mental status changes. He also has a chronic wound of the left first toe s/p nail care and no gangrene or cellulitis- stable. He would likely benefit from arterial revascularization attempt, but not urgently. Right now, he needs further workup for etiology of mental and physical decline. Once he is improved and optimized from that standpoint, and is better able to hold still, follow commands, and be safe, then arteriogram and potential intervention can be considered. Continue local wound care for his toe per Dr Varghese and analgesia prn discomfort. VS, I&O, 24H, Fishbone Vital Signs/I&O Vital Signs Date Time Temp Pulse Resp B/P (MAP) Pulse Ox O2 Delivery O2 Flow Rate FiO2 05/04/19 10:00 169/86 05/04/19 07:33 55 05/04/19 06:00 98.0 20 95 05/02/19 14:00 Room Air I&O- Last 24 Hours up to 6 AM 05/04/19 06:00 Intake Total 50684 ml Output Total 41128 ml Balance 600 ml Laboratory Data 24H LABS Laboratory Tests 2 05/03/19 11:25: Nucleated Red Blood Cells % (auto) 0.0, Anion Gap 12, Glomerular Filtration Rate 5.5L, Calcium Level 10.2, Phosphorus Level 5.3H 05/04/19 05:20: Nucleated Red Blood Cells % (auto) 0.0, Anion Gap 6L, Glomerular Filtration Rate 5.7L, Calcium Level 9.8 CBC/BMP Laboratory Tests 05/03/19 11:25 05/04/19 05:20 Microbiology Microbiology 05/01/19 Blood Culture - Preliminary, Resulted No Growth after 48 hours. All Specime... ELLA STEPHENSON MD May 04, 2019 11:26
--- NOTE | 2019-05-04 11:32 | CR.PDOC ---
General Date of Consultation: May 04, [address] Canseco. HPI: 79year oldM transferred from outside hospital admitted to [facility] related to weakness, debility and Left great toe wound. The pt has been evaluated by Podiatry for wound management, Dr Varghese. The pt had developed a wound of he left great toe about 1 month ago. Over the past week it had been worsening. Apparently arterial studies were unable to be completed 05/02/19 related to agitation but were able to be obtained 05/03/19. Vascular surgery is consulted today re PAD, Left great toe wound. SO at bedside feels that confusion was related to Percocet which he had been taking for toe pain, currently on hold. Denies any Headache, Chest Pain, Shortness of breath, cough, palpitations, abdominal pain, N/V/D or changes in bowel or bladder habits. PAST MEDICAL/ SURGICAL HISTORY: Peritoneal dialysis/Status post bilateral nephrectomy/renal cell Ca Anemia of chronic renal disease Gout HTN/Chronic systolic/diastolic CHF Mild pulmonary hypertension Mild to moderate aortic valve sclerosis with trace aortic valve regurgitation GERD CAD History of prostate cancer status post prostatectomy. 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 CAD ROS: As noted in HPI, otherwise 11pt ROS of systems reviewed and unremarkable. PE: GEN: 79yoM, appears stated age. A/Ox3 HEENT: Normocephalic, atraumatic. Moist mucous membranes. CHEST: Regular rate and rhythm, +S1, +S2 LUNGS: Clear to auscultation bilaterally. ABD: Round, soft, non-tender, non-distended. EXT: Monophasic DP/PT B/L. Wound noted at tip of left great toe and at the base of the toe small open area. no drainage. NEURO: Alert and oriented x 3. No focal deficits appreciated. Bilateral lower extremity arterial Doppler ultrasound: Right lower extremity: Brachial peak systole: Not performed. Dorsalis pedis: 200+ mmHg. HISTORICAL GUIDE: 200+ mmHg PILO: Not performed. Peak Systolic Phasicity Velocity CREATIVE COORDINATOR 85 point see biphasic Profunda 57.1 biphasic SFA prox 79.5 biphasic SFA mid 70 points biphasic SFA dist 53 point biphasic Pop 59.8 biphasic URIAH prox 200 biphasic Tib/P tr 80.2 biphasic HISTORICAL GUIDE pr 45.5 biphasic HISTORICAL GUIDE dst 26.8 monophasic URIAH dst 50.6 monophasic Left lower extremity: Brachial peak systole: Not performed Dorsalis pedis: 200+ mmHg. HISTORICAL GUIDE peak systole: 200+ mmHg. PILO: Not performed Peak Systolic Phasicity Velocity CREATIVE COORDINATOR 85.5 biphasic Profunda 80 point see monophasic SFA prox 72.2 biphasic SFA mid 65 point biphasic SFA dist 74.3 biphasic Pop 56.5 biphasic URIAH prox 83.7 biphasic Tib/P tr 52 point biphasic HISTORICAL GUIDE pr 61.1 biphasic HISTORICAL GUIDE dst 94.5 monophasic URIAH dst 7.65 monophasic There is heavily calcified atheroma bilaterally. Cardiac arrhythmia is noted. Therefore. the study is somewhat technically difficult. Right lower extremity: There is 3:1 stenosis in the proximal URIAH. There is monophasic flow in the distal HISTORICAL GUIDE and URIAH. Left lower extremity: There is monophasic flow in the distal HISTORICAL GUIDE and URIAH Electronically Signed by Yunior Merritt MD 05/03/2019 04:31 P A&P: 1. PAD/Left great toe wound. Antibiotic mgmt as per medicine svc. Wound care as per Podiatry. Pt is on ASA 81 mg daily. Would recommend consider statin if no contraindication. The pt arterial US indicates LLE with biphasic flow to proximal HISTORICAL GUIDE then monophasic distal HISTORICAL GUIDE, distal URIAH. Will discuss further with Dr Canseco and provide additional recommendations. 2. B/L Nephrectomy, peritoneal dialysis. Thank you for your consultation. We will continue to follow along with you. Vital Signs/I&O Vital Signs Date Time Temp Pulse Resp B/P (MAP) Pulse Ox O2 Delivery O2 Flow Rate FiO2 05/04/19 07:33 55 171/84 (113) 05/04/19 06:00 98.0 20 95 05/02/19 14:00 Room Air I&O- Last 24 Hours up to 6 AM 05/04/19 06:00 Intake Total 83378 ml Output Total 06147 ml Balance 600 ml Laboratory Data Labs 24H Laboratory Tests 2 05/03/19 11:25: Nucleated Red Blood Cells % (auto) 0.0, Anion Gap 12, Glomerular Filtration Rate 5.5L, Calcium Level 10.2, Phosphorus Level 5.3H 05/04/19 05:20: Nucleated Red Blood Cells % (auto) 0.0, Anion Gap 6L, Glomerular Filtration Rate 5.7L, Calcium Level 9.8 CBC/BMP Laboratory Tests 05/03/19 11:25 05/04/19 05:20 Microbiology Microbiology 05/01/19 Blood Culture - Preliminary, Resulted No Growth after 48 hours. All Specime... Allergies Coded Allergies: amlodipine (Verified Allergy, Unknown, 05/01/19) indomethacin (Verified Allergy, Unknown, 05/01/19) nifedipine (Verified Allergy, Unknown, 05/01/19) hydralazine (Verified Adverse Reaction, Mild, ELEVATED BP, 05/01/19) Home Medications Scheduled Aspirin (Aspir 81) 81 Mg Tab, 81 MG PO DAILY, (Reported) Calcium Acetate (Calcium Acetate) 667 Mg Cap, 667 MG PO WM, (Reported) Cholecalciferol (Vitamin D3) (Vitamin D3) 1,000 Unit Capsule, 2,000 UNIT PO DAILY, (Reported) Cinacalcet (Sensipar) 30 Mg Tab, 60 MG PO DAILY, (Reported) Epoetin Irving (Procrit) 20,000 Unit/1 Ml Vial, 20,000 UNIT SC 1XWK, (Reported) MONDAYS Isosorbide Mononitrate (Isosorbide Mononitrate ER) 60 Mg Tab.er.24h, 60 MG PO DAILY, (Reported) Metoprolol Succinate (Metoprolol Succinate) 100 Mg Tab.er.24h, 100 MG PO QHS, (Reported) Multivitamins (Thera M Plus Tablet) 1 Tab Tab, 1 TAB PO DAILY, (Reported) Omeprazole (Omeprazole) 20 Mg Cap, 20 MG PO DAILY, (Reported) Potassium Chloride (Potassium Chloride) 20 Meq Tab.er.prt, 20 MEQ PO DAILY, (Reported) Sevelamer Carbonate (Renvela) 800 Mg Tablet, 800 MG PO WM, (Reported) Scheduled PRN Albuterol Sulfate (Proventil Hfa) 6.7 Gm Hfa.aer.ad, 2 PUFF INH QID PRN for SOB/WHEEZING, (Reported) Allopurinol (Allopurinol) 100 Mg Tablet, 100 MG PO DAILY PRN for GOUT FLARE UPS, (Reported) Febuxostat (Uloric) 40 Mg Tab, 40 MG PO DAILY PRN for GOUT FLARE UPS, (Reported) Puja Garcia May 04, 2019 10:02
--- NOTE | 2019-05-04 11:47 | IPNPDOC ---
Subjective Date Seen The patient was seen on 05/04/19. Subjective Chief Complaint/HPI Mauricio is fine this morning. His fiancee is once again at the bedside, she feels he still has some residual confusion. His pain is controlled. Objective Physical Examination General Exam: Positive: Alert, Cooperative Eye Exam: Negative: Sclera icteric ENT Exam: Positive: Mucous membr. moist/pink Neck Exam: Positive: Supple; Negative: JVD, thyromegaly Chest Exam: Positive: Clear to auscultation Heart Exam: Positive: Rate Normal Abdomen Exam: Positive: Normal bowel sounds Extremity Exam: Positive: Other (left hallux unchanged); Negative: Clubbing, Cyanosis, Edema Neuro Exam: Positive: Normal Speech Psych Exam: Positive: Mood NL Assessment /Plan Assessment # Generalized weakness - PT/OT eval, likely will need placement - holding percocet # Metabolic Encephalopathy - CT head shows no acute changes - holding percocet # Left hallux infection. - discontinue IV clindamycin, foot looks good - Follow-up cultures done at [facility] - arterial doppler reviewed, shows PAD - vascular consulted, and deferring angiogram until patient more alert - podiatry note reviewed # Elevated troponin due to CKD - no further intervention # CKD stage V on PD # chronic anemia of CKD # Hyperuricemia - nephrology consulted - continue Sensipar, sevelamer and Procrit - continue allopurinol and febuxostat # Chronic HTN # Chronic CAD # Chronic systolic/diastolic CHF - continue asa, metoprolol and isosorbide - compensated Dispo: Medically stable for discharge, Home vs snf Plan/VTE VTE Prophylaxis Ordered?: Yes VTE Exclusion Mechanical Proph: N/A:VTE Prophy Ordered VTE Exclusion Pharmacological: N/A:VTE Prophy Ordered VS, I&O, 24H, Fishbone Vital Signs/I&O Vital Signs Date Time Temp Pulse Resp B/P (MAP) Pulse Ox O2 Delivery O2 Flow Rate FiO2 05/04/19 10:00 169/86 05/04/19 07:33 55 05/04/19 06:00 98.0 20 95 05/02/19 14:00 Room Air I&O- Last 24 Hours up to 6 AM 05/04/19 06:00 Intake Total 35698 ml Output Total 19903 ml Balance 600 ml Laboratory Data 24H LABS Laboratory Tests 2 1/31/20 05:20: Nucleated Red Blood Cells % (auto) 0.0, Anion Gap 6L, Glomerular Filtration Rate 5.7L, Calcium Level 9.8 CBC/BMP Laboratory Tests 05/04/19 05:20 Microbiology Microbiology 05/01/19 Blood Culture - Preliminary, Resulted No Growth after 48 hours. All Specime... CHIP BROCK MD May 04, 2019 11:47
[2019-05-04] MEDS ORDERED: CALCITRIOL 0.25 MCG CAP (S0169) PO ONE (12:45)
[2019-05-04 14:00] VITALS: BP 160/85
--- NOTE | 2019-05-04 15:06 | IPN ---
DATE: 05/04/2019 The patient is seen and examined. He is much more alert today. He is able to answer all questions appropriately. He states that his toe has been sore. Vital signs reviewed. He has remained afebrile. Laboratories are reviewed. White blood cell count is 6.4. Lower extremity examination: Distal eschar noted to the left hallux. No surrounding erythema. ASSESSMENT: Patient with peripheral vascular disease and hallux gangrene. PLAN: Vascular surgery has been consulted. Arterial studies showed distal tibial disease. For now, we will continue the Nitrobid paste. We will also apply Lidocaine gel to the tip of the toe.
[2019-05-04] MEDS: IPRATROPIUM 0.5MG/ALBUTEROL 2.5MG INH SOL UD 3ML (DUONEB)(J7620) NEB PRN (15:42)
--- NOTE | 2019-05-04 16:32 | IPN ---
DATE: 05/04/2019 SUBJECTIVE: Mauricio is seen and examined at the bedside. His blood pressures have been elevated. He reports he has been eating well, peritoneal dialysis (PD) exchanges have been without any issues. He is followed by podiatry and vascular service. Temperature 98.0, pulse 67, respiratory rate 20, blood pressure 161/83, saturating 95% on room air. Review of intake and output yesterday shows net positive 700 mL, weight in the bed scale today is 87 kg. General: The patient is seen sitting up in bed, head of the bed elevated, awake, alert, oriented to person, place and situation, interactive and conversational. Extraocular muscles are intact. Ears, nose and throat are unremarkable. There is no jugular venous distension. Heart: Sounds are regular, S1, S2. There is no edema in the legs nor in the peripheries. Lungs are clear to auscultation bilaterally. No crackle, rale or rhonchus. Abdomen is soft and nontender. There is peritoneal dialysis fluid in situ. The PD catheter exit site is clean, dry and intact. Neurologic: He is cooperative with physical exam and oriented times three. Skin: Normal temperature and turgor. Musculoskeletal: The left great toe has a chronic wound, which was not examined today. There is otherwise no leg edema. He moves all four extremities on command. White count 6.4, hemoglobin 10.8, platelets 243, sodium 130, potassium 3.9, bicarbonate 29. Blood culture: No growth for 48 hours. INPATIENT MEDICATIONS: He received potassium chloride supplementation. His Imdur was increased by the primary team. His remainder medications are unchanged from prior. PROBLEMS: 1. End-stage renal disease, on peritoneal dialysis. Continue five exchanges daily, all 1.5%. PD fluid analysis was negative for infection. His potassium was low yesterday, and he requests to be switched to a low-salt diet instead of a renal diet, and I have made the change. His volume status and electrolytes are otherwise acceptable. He is well dialyzed. 2. Hypertension. Blood pressures have been elevated. Primary team has increased the dose of Imdur. He continues on beta marlo. Losartan 25 mg daily can be added if blood pressures remain high despite elevation in isosorbide. 3. Systolic and diastolic congestive heart failure. Left ventricular ejection fraction 40%. Volume status is well compensated. He is on a gentle PD prescription with five exchanges, all of which are 1.5%. 4. Left hallux infection. He continues on antimicrobials per the primary team, on IV clindamycin and local wound care, and has been evaluated by podiatry and vascular workup is pending improvement in physical condition and mental status.
[2019-05-04] MEDS: LIDOCAINE 5% OINT 30 GM TOP SCH (21:46)
[2019-05-04] MEDS: METOPROLOL SUCC (TopROL XL) 100MG *XL* TAB PO SCH (21:46)
[2019-05-04 22:00] VITALS: BP 169/86
[2019-05-05 06:00] VITALS: BP 168/88
[2019-05-05] MEDS: HEPARIN SOD (PORCINE) 5000 UNITS/ML VIAL (J1644 PER 1000UNITS) SC SCH ×3 (06:16→21:58)
[2019-05-05 06:42] LABS: HEMATOCRIT 31.5 % (42.0-52.0); MEAN CORPUSCULAR HEMOGLOBIN 32.5 pg (27.0-33.0); MEAN CORPUSCULAR HGB CONC 34.9 g/dl (32.0-36.5); MEAN CORPUSCULAR VOLUME 93.2 fl (80.0-96.0); PLATELET COUNT, AUTOMATED 234 10^3/uL (150-450); RED BLOOD COUNT 3.38 10^6/uL (4.30-6.10); WHITE BLOOD COUNT 6.7 10^3/uL (4.0-10.0)
[2019-05-05 07:17] LABS: CALCIUM LEVEL 10.1 MG/DL (8.8-10.2); GLOMERULAR FILTRATION RATE 5.9 (>42); POTASSIUM SERUM 4.2 MEQ/L (3.5-5.1)
[2019-05-05 07:22] LABS: THYROID STIMULATING HORMONE 0.897 uIU/ML (0.358-3.740)
[2019-05-05] MEDS: VITAMIN D 1,000 INTERNATIONAL UNITS TABLET PO SCH (09:00)
[2019-05-05] MEDS: (RENVELA) SEVELAMER **CARBONate** 800 MG TAB PO SCH ×3 (09:55→18:00)
[2019-05-05] MEDS: CALCIUM ACETATE 667 MG GELCAP PO SCH ×3 (09:55→18:00)
[2019-05-05] MEDS: LIDOCAINE 5% OINT 30 GM TOP SCH ×2 (10:05→21:58)
[2019-05-05] MEDS: MULTIVITAMINS/MINERALS THERAP 1 TAB PO SCH (10:06)
[2019-05-05] MEDS: NITROGLYCERIN 2% OINT 1 GM *U/D* PKT TOP SCH ×2 (10:06→21:58)
[2019-05-05] MEDS: OMEPRAZOLE 20 MG CAP PO SCH (10:06)
[2019-05-05] MEDS: CINACALCET 30 MG TAB (SENSIPAR) PO SCH (10:07)
[2019-05-05] MEDS: ISOSORBIDE MON. (IMDUR) 60 MG XR TAB PO SCH (10:07)
[2019-05-05] MEDS: ASPIRIN 81 MG ENTERIC TAB PO SCH (10:07)
[2019-05-05 14:00] VITALS: BP 175/88
--- NOTE | 2019-05-05 17:23 | IPN ---
DATE: 05/05/2019 Mr. Mckinney is seen this morning on his bedside. His significant other is present in the room. Patient was admitted with some altered mentation and foot infection. He has been receiving antibiotics and has also been seen by podiatry. He is on maintenance chronic peritoneal dialysis, which is being continued during his hospital stay. Patient himself is slow to respond, but was able to answer simple questions. He does not seem to be at his chronic baseline as yet. PHYSICAL EXAMINATION: Temperature 97.8 degrees Fahrenheit, heart rate 60 per minute and respiratory rate 18 per minute. Blood pressure 168/88 mmHg and oxygen saturation 98% on room air. Head is atraumatic. Neck is supple and jugular venous distention (JVD) not abnormally elevated. Heart sounds are regular and lungs sound slightly diminished at bases. Abdomen soft and nontender. Peritoneal dialysis catheter is intact and his abdomen is filled with peritoneal dialysis solution. Extremities have no cyanosis or clubbing. On the left big toe, he has a small superficial ulcer and a dressing is present. There is no drainage. Today's labs show sodium 130, potassium 4.2, CO2 27, BUN 31 and creatinine 11.0. Glucose 95 and calcium 10.1. WBC count is 6.7, hemoglobin 11.0 and hematocrit 31.5. Platelets 234. PROBLEMS: 1. End-stage renal disease. Patient remains peritoneal dialysis dependent and he is receiving five exchanges per day, which will be continued. 2. Hyponatremia. He has mild hyponatremia, essentially unchanged. We will continue to monitor closely. Unfortunately, he is not eating very well and most of his intake has been in the liquid form, which is contributing to his hyponatremia. 3. Hypertension. Blood pressure still somewhat elevated. He has history of orthostatic hypotension as an outpatient. His volume status seems reasonably well-compensated. At present, he is on metoprolol 100 mg daily and I will add losartan 50 mg daily. We will give him first dose tonight and see how he does. He will continue with Imdur 120 mg daily for now. 4. Infected wound, left big toe. Patient has been treated with antibiotics previously. At present, he is not on any antibiotic. His significant other tells me that need for angiogram has been discussed. We will wait for next week and see if he is stable for angiogram.
[2019-05-05 18:15] VITALS: BP 152/85
[2019-05-05] MEDS: IPRATROPIUM 0.5MG/ALBUTEROL 2.5MG INH SOL UD 3ML (DUONEB)(J7620) NEB PRN (18:43)
[2019-05-05] MEDS: LOSARTAN 50 MG TAB PO SCH (21:57)
[2019-05-05] MEDS: METOPROLOL SUCC (TopROL XL) 100MG *XL* TAB PO SCH (21:57)
[2019-05-05 22:00] VITALS: BP 172/98
[2019-05-05] MEDS ORDERED: HEPARIN SOD (PORCINE) 5000 UNITS/ML VIAL (J1644 PER 1000UNITS) PD ONE (22:00)
[2019-05-06 06:00] VITALS: BP 168/86
[2019-05-06] MEDS: HEPARIN SOD (PORCINE) 5000 UNITS/ML VIAL (J1644 PER 1000UNITS) SC SCH ×3 (06:20→22:42)
[2019-05-06 06:46] LABS: CALCIUM LEVEL 10.1 MG/DL (8.8-10.2); CREATININE FOR GFR 11.3 MG/DL (0.70-1.30); GLOMERULAR FILTRATION RATE 5.7 (>42); POTASSIUM SERUM 3.7 MEQ/L (3.5-5.1)
[2019-05-06] MEDS: CALCIUM ACETATE 667 MG GELCAP PO SCH ×4 (08:00→19:00)
[2019-05-06] MEDS: (RENVELA) SEVELAMER **CARBONate** 800 MG TAB PO SCH ×4 (08:00→19:00)
[2019-05-06] MEDS: VITAMIN D 1,000 INTERNATIONAL UNITS TABLET PO SCH ×2 (08:33→08:59)
[2019-05-06] MEDS: OMEPRAZOLE 20 MG CAP PO SCH ×2 (08:33→08:58)
[2019-05-06] MEDS: CINACALCET 30 MG TAB (SENSIPAR) PO SCH ×2 (08:34→08:59)
[2019-05-06] MEDS: ASPIRIN 81 MG ENTERIC TAB PO SCH ×2 (08:34→08:58)
[2019-05-06] MEDS: MULTIVITAMINS/MINERALS THERAP 1 TAB PO SCH ×2 (08:34→08:59)
[2019-05-06] MEDS: ISOSORBIDE MON. (IMDUR) 60 MG XR TAB PO SCH ×2 (08:34→08:58)
[2019-05-06] MEDS: LIDOCAINE 5% OINT 30 GM TOP SCH ×2 (08:35→20:34)
[2019-05-06] MEDS: NITROGLYCERIN 2% OINT 1 GM *U/D* PKT TOP SCH ×2 (08:35→20:34)
--- NOTE | 2019-05-06 11:23 | IPNPDOC ---
Subjective Date Seen The patient was seen on 05/05/19. Subjective Chief Complaint/HPI Mauricio remains unsteady and confused at times. He's afebrile. Objective Physical Examination General Exam: Positive: Alert, No Acute Distress Eye Exam: Negative: Sclera icteric ENT Exam: Positive: Mucous membr. moist/pink, Pharynx Normal Neck Exam: Positive: Supple; Negative: JVD, thyromegaly Chest Exam: Positive: Clear to auscultation Heart Exam: Positive: Rate Normal Abdomen Exam: Positive: Normal bowel sounds Extremity Exam: Positive: Other (left hallux unchanged); Negative: Clubbing, Cyanosis, Edema Neuro Exam: Positive: Normal Speech Psych Exam: Positive: Mental status NL Assessment /Plan Assessment # Generalized weakness - PT/OT eval, likely will need placement - holding percocet # Metabolic Encephalopathy - CT head shows no acute changes - holding percocet # Left hallux infection. - discontinue IV clindamycin, foot looks good - Follow-up cultures done at [facility] - arterial doppler reviewed, shows PAD - vascular consulted, and deferring angiogram until patient more alert # Elevated troponin due to CKD - no further intervention # CKD stage V on PD # chronic anemia of CKD # Hyperuricemia - nephrology consulted - continue Sensipar, sevelamer and Procrit - continue allopurinol and febuxostat # Chronic HTN # Chronic CAD # Chronic systolic/diastolic CHF - continue asa, metoprolol and isosorbide - compensated Dispo: Medically stable for discharge, Home vs snf Plan/VTE VTE Prophylaxis Ordered?: Yes VTE Exclusion Mechanical Proph: N/A:VTE Prophy Ordered VTE Exclusion Pharmacological: N/A:VTE Prophy Ordered VS, I&O, 24H, [facility] Vital Signs/I&O Vital Signs Date Time Temp Pulse Resp B/P (MAP) Pulse Ox O2 Delivery O2 Flow Rate FiO2 05/05/19 06:00 97.8 61 18 168/88 (114) 98 Room Air I&O- Last 24 Hours up to 6 AM 05/05/19 05:59 Intake Total 56041 ml Output Total 37887 ml Balance 260 ml Laboratory Data 24H LABS Laboratory Tests 2 05/05/19 06:28: Nucleated Red Blood Cells % (auto) 0.0, Anion Gap 10, Glomerular Filtration Rate 5.9L, Calcium Level 10.1, Thyroid Stimulating Hormone (TSH) 0.897 CBC/BMP Laboratory Tests 05/05/19 06:28 Microbiology Microbiology 05/01/19 Blood Culture - Preliminary, Resulted No Growth after 72 hours. All specime... CHIP BROCK MD May 05, 2019 11:16
--- NOTE | 2019-05-06 11:28 | IPNPDOC ---
Subjective Date Seen The patient was seen on 05/06/19. Subjective Chief Complaint/HPI Mauricio is more confused this morning, he's less talkative. RN told me he wouldn't swallow to take his pills, his mentation has wax and waned like this throughout his stay here. Objective Physical Examination General Exam: Positive: Alert, No Acute Distress Eye Exam: Negative: Sclera icteric ENT Exam: Positive: Mucous membr. moist/pink, Pharynx Normal Neck Exam: Positive: Supple; Negative: JVD, thyromegaly Chest Exam: Positive: Clear to auscultation Heart Exam: Positive: Rate Normal Abdomen Exam: Positive: Normal bowel sounds Extremity Exam: Positive: Other (left hallux unchanged); Negative: Clubbing, Cyanosis, Edema Neuro Exam: Positive: Normal Speech Psych Exam: Positive: Mental status NL Assessment /Plan Assessment # Generalized weakness - PT/OT eval, likely will need placement - holding percocet # Metabolic Encephalopathy - CT head shows no acute changes - D/w / Dasia will obtain MRI brain - if MRI is negative, then symptoms likely due to uremia, and may need conversion to HD from CAPD - holding percocet # Left hallux infection. - off abx, no signs of acute infection - Follow-up cultures done at [facility] - arterial doppler reviewed, shows PAD - vascular consulted, and deferring angiogram until patient more alert # Elevated troponin due to CKD - no further intervention # CKD stage V on PD # chronic anemia of CKD # Hyperuricemia - nephrology consulted - continue Sensipar, sevelamer and Procrit - continue allopurinol and febuxostat # Chronic HTN # Chronic CAD # Chronic systolic/diastolic CHF - continue asa, metoprolol and isosorbide - compensated Dispo: will need placement Plan/VTE VTE Prophylaxis Ordered?: Yes VTE Exclusion Mechanical Proph: N/A:VTE Prophy Ordered VTE Exclusion Pharmacological: N/A:VTE Prophy Ordered VS, I&O, 24H, Fishbone Vital Signs/I&O Vital Signs Date Time Temp Pulse Resp B/P (MAP) Pulse Ox O2 Delivery O2 Flow Rate FiO2 05/06/19 08:35 168/86 05/06/19 06:00 97.8 59 16 100 Room Air I&O- Last 24 Hours up to 6 AM 05/06/19 06:00 Intake Total 90908 ml Output Total 30745 ml Balance -70 ml Laboratory Data 24H LABS Laboratory Tests 2 05/06/19 05:53: Anion Gap 10, Glomerular Filtration Rate 5.7L, Calcium Level 10.1 CBC/BMP Laboratory Tests 05/06/19 05:53 Microbiology Microbiology 05/01/19 Blood Culture - Preliminary, Resulted No Growth after 72 hours. All specime... CHIP BROCK MD May 06, 2019 11:28
[2019-05-06 14:00] VITALS: BP_SYST 164; BP_SYST 64; BP_DIAS 80
--- NOTE | 2019-05-06 14:26 | REPVR ---
PROCEDURE INFORMATION: Exam: MR Head Without Contrast Exam date and time: 05/06/2019 1:55 PM Age: 79 years old Clinical indication: Alteration of consciousness and altered mental status/memory loss; Transient alteration of awareness; Age related cognitive decline; Patient HX: Severe confusion and memory loss; Additional info: Altered mental status R/O stroke TECHNIQUE: Imaging protocol: MR of the head without contrast. COMPARISON: CT Head without contrast 05/02/2019 11:22 AM FINDINGS: Brain: There is moderate high signal abnormality in the periventricular white matter and centrum semiovale, best seen on the flair images. These changes are nonspecific but likely represent chronic small vessel ischemic change. Ventricles: Normal. No ventriculomegaly. Bones/joints: Unremarkable. Soft tissues: Unremarkable. Sinuses: Normal as visualized. No acute sinusitis. Mastoid air cells: Normal as visualized. No mastoid effusion. Orbits: Unremarkable. IMPRESSION: There is moderate high signal abnormality in the periventricular white matter and centrum semiovale, best seen on the flair images. These changes are nonspecific but likely represent chronic small vessel ischemic change. Electronically signed by: Leonardo Cochran On 05/06/2019 14:28:08 PM
--- NOTE | 2019-05-06 18:45 | IPN ---
DATE: 05/06/2019 Mr. Mckinney is seen this morning on his bedside. Peritoneal dialysis exchange is in progress on the bedside. Patient remains very slow to respond and confused and disoriented. He was not able to answer any of my questions appropriately. PHYSICAL EXAMINATION: Temperature 97.8 degrees Fahrenheit, heart rate 60 per minute and respiratory rate 16 per minute. Blood pressure 168/86 mmHg and oxygen saturation 100% on room air. His head is atraumatic. Neck supple and without jugular venous distention (JVD) or thyroid enlargement. Heart sounds regular and lungs with good bilateral air entry and no rales or wheezing. Abdomen soft and nontender. Extremities have no cyanosis or clubbing. Neurologically, he is very confused and not able to answer questions appropriately, though he was able to talk, but tell me the date or month correctly and was not able to tell me anything about Super Bowl, though all he is a big fan. Today's labs show sodium 130, potassium 3.7, chloride 94, CO2 23, BUN 30 and creatinine 11.30. Calcium 10.1 and glucose 96. PROBLEMS: 1. End-stage renal disease. Patient has been on peritoneal dialysis and current prescription continues. I am concerned about possibility of inadequate dialysis and altered mentation related to his uremia. I do not feel that there is any evidence of significant infection causing his altered mentation. He is not on any narcotics at present. We will get a brain MRI to rule out any neurological factors and then consider to switch him to hemodialysis at least temporarily and see how he does. 2. Altered mentation. Most likely this is metabolic and not infectious. I am concerned about possibility of uremia and will consider hemodialysis if neurological problems rule out with MRI. We will get a Perma-Cath placed and hemodialyze him and see if his condition improves. 3. Hyponatremia. At this is chronic and unchanged and do not feel that hyponatremia is contributing to his altered mentation. Next problem is p 4. Protein calorie malnutrition. Patient has very poor oral intake and nursing staff reports that he did not eat anything this morning. His significant other is not present today and the patient needs to be helped with his nutrition. He has been drinking protein shakes, which is giving him at least adequate nutrition. 5. Hypertension. Blood pressure is well controlled now. No changes are being made today.
[2019-05-06] MEDS: METOPROLOL SUCC (TopROL XL) 100MG *XL* TAB PO SCH (20:33)
[2019-05-06] MEDS: LOSARTAN 50 MG TAB PO SCH (20:35)
[2019-05-06 22:00] VITALS: BP 155/84
[2019-05-07] MEDS: HEPARIN SOD (PORCINE) 5000 UNITS/ML VIAL (J1644 PER 1000UNITS) SC SCH ×3 (05:26→21:06)
[2019-05-07 06:00] VITALS: BP 142/87
[2019-05-07 06:34] LABS: INR 1.05; PROTHROMBIN TIME 13.4 SECONDS (11.8-14.0)
[2019-05-07 07:00] LABS: ALBUMIN 2.6 GM/DL (3.2-5.2); CALCIUM LEVEL 10.6 MG/DL (8.8-10.2); CREATININE FOR GFR 11.9 MG/DL (0.70-1.30); GLOMERULAR FILTRATION RATE 5.4 (>42); PHOSPHORUS LEVEL 4.5 MG/DL (2.5-4.9); POTASSIUM SERUM 3.6 MEQ/L (3.5-5.1)
[2019-05-07] MEDS: (RENVELA) SEVELAMER **CARBONate** 800 MG TAB PO SCH ×3 (08:40→17:21)
[2019-05-07] MEDS: MULTIVITAMINS/MINERALS THERAP 1 TAB PO SCH (08:40)
[2019-05-07] MEDS: OMEPRAZOLE 20 MG CAP PO SCH (08:40)
[2019-05-07] MEDS: ACETAMINOPHEN TAB 650MG DOSE (2X325MG) PO PRN ×3 (08:40→19:13)
[2019-05-07] MEDS: CINACALCET 30 MG TAB (SENSIPAR) PO SCH (08:41)
[2019-05-07] MEDS: ISOSORBIDE MON. (IMDUR) 60 MG XR TAB PO SCH (08:41)
[2019-05-07] MEDS: ASPIRIN 81 MG ENTERIC TAB PO SCH (08:41)
[2019-05-07] MEDS: NITROGLYCERIN 2% OINT 1 GM *U/D* PKT TOP SCH ×2 (08:41→21:05)
[2019-05-07] MEDS: LIDOCAINE 5% OINT 30 GM TOP SCH ×2 (08:42→21:06)
[2019-05-07 08:44] LABS: TOTAL PROTEIN 5.7 GM/DL (6.4-8.2)
[2019-05-07] MEDS ORDERED: diphenhydrAMINE INJ 50MG/ML VIAL (J1200) As Ordered ONE (10:03)
[2019-05-07] MEDS ORDERED: LIDOCAINE 1% MDV 20ML VIAL As Ordered ONE (10:04)
[2019-05-07] MEDS ORDERED: fentaNYL 100 MCG/2 ML INJECTION (J3010) As Ordered ONE (10:04)
[2019-05-07] MEDS ORDERED: HEPARIN 1,000 UNITS/ML 10ML VIAL (FOR RADIOLOGY& DIALYSIS ONLY)(J1644-10) As Ordered ONE ×2 (10:04→10:41)
[2019-05-07] MEDS ORDERED: ceFAZolin 1GM INJ (J0690 PER 500MG) As Ordered ONE (10:40)
[2019-05-07] MEDS ORDERED: HEPARIN 1,000 UNITS/ML 10ML VIAL (FOR RADIOLOGY& DIALYSIS ONLY)(J1644-10) IV ONE (10:45)
[2019-05-07] MEDS ORDERED: HEPARIN 1,000 UNITS/ML 10ML VIAL (FOR RADIOLOGY& DIALYSIS ONLY)(J1644-10) XX ONE (10:45)
[2019-05-07 11:07] LABS: PTH INTACT 94.7 PG/ML (18.5-88.0)
--- NOTE | 2019-05-07 11:12 | IPNPDOC ---
Subjective Date Seen The patient was seen on 05/07/19. Subjective Chief Complaint/HPI Mauricio is more alert this morning, but remains intermittent confused, his girlfriend is at the bedside. Objective Physical Examination General Exam: Positive: Cooperative, No Acute Distress Eye Exam: Positive: Conjunctiva & lids normal; Negative: Sclera icteric ENT Exam: Positive: Mucous membr. moist/pink, Pharynx Normal Neck Exam: Positive: Supple; Negative: JVD, thyromegaly Chest Exam: Positive: Clear to auscultation Heart Exam: Positive: Rate Normal, Normal S1, Normal S2 Abdomen Exam: Positive: Normal bowel sounds Extremity Exam: Positive: Other (left hallux toe discolored but no signs of infection); Negative: Clubbing, Cyanosis, Edema Neuro Exam: Positive: Normal Speech Psych Exam: Positive: Mental status NL Assessment /Plan Assessment # Generalized weakness - PT/OT eval, likely will need placement - holding percocet # Metabolic Encephalopathy - CT head shows no acute changes - MRI shows not acute event - Nephro planning on conversion to hemodialysis # Left hallux infection. 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 # chronic anemia of CKD # Hyperuricemia - nephrology consulted - continue Sensipar, sevelamer and Procrit - continue allopurinol and febuxostat # Chronic HTN # Chronic CAD # Chronic systolic/diastolic CHF - continue asa, metoprolol and isosorbide - compensated Dispo: will need placement, PT + OT following Plan/VTE VTE Prophylaxis Ordered?: Yes VTE Exclusion Mechanical Proph: N/A:VTE Prophy Ordered VTE Exclusion Pharmacological: N/A:VTE Prophy Ordered VS, I&O, 24H, Fishbone Vital Signs/I&O Vital Signs Date Time Temp Pulse Resp B/P (MAP) Pulse Ox O2 Delivery O2 Flow Rate FiO2 05/07/19 10:26 62 18 100 Room Air 05/07/19 10:17 98.9 05/07/19 06:00 142/87 (105) I&O- Last 24 Hours up to 6 AM 05/07/19 06:00 Intake Total 48275 ml Output Total 16353 ml Balance -420 ml Laboratory Data 24H LABS Laboratory Tests 2 05/07/19 06:03: Prothrombin Time 13.4, Prothromb Time International Ratio 1.05, Anion Gap 9, Glomerular Filtration Rate 5.4L, Calcium Level 10.6H, Phosphorus Level 4.5, Albumin 2.6L 05/07/19 08:05: Total Protein (PEP) 5.7L, Parathyroid Hormone (Intact) 94.7H CBC/BMP Laboratory Tests 05/07/19 06:03 Microbiology Microbiology 05/01/19 Blood Culture - Final, Complete NO GROWTH AFTER 5 DAYS CHIP BROCK MD May 07, 2019 11:12
--- NOTE | 2019-05-07 11:38 | POST-OPPD ---
Postoperative Procedure Note Date Of Procedure: May 07, 2019 Time Of Procedure: 11:37 PREOPERATIVE DIAGNOSIS: RF POSTOPERATIVE DIAGNOSIS: same FINDINGS: patent left IJ. right IJ thrombosed PROCEDURE: left sided permcath. ready to use. SURGEON: victorina ANESTHESIA: mod sed ESTIMATED BLOOD LOSS: < 5 ml COMPLICATIONS: none POSTOPERATIVE CONDITION: stable MEGA CARROLL MD May 07, 2019 11:38
--- NOTE | 2019-05-07 12:39 | IPN ---
DATE: 05/07/2019 Mr. Mckinney is seen this morning on his bedside. He is slightly better and slightly more alert but still confused and disoriented. His significant other is present in the room. Patient could not tell me the day or the date correctly again. He is a big football fan and normally at baseline is well aware of football news and he did watch the game last night but could not tell me which team won this morning. His peritoneal dialysis has been functioning and will continue with five exchanges per day. I am concerned about the possibility of uremia and he is scheduled for a PermaCath placement this morning for additional hemodialysis. On physical exam, temperature 98 degrees Fahrenheit, heart is 58 per minute and respiratory rate 16 per minute. Blood pressure 142/87 mmHg and oxygen saturation 98% on room air. Head is atraumatic. Neck is supple and without jugular venous distention (JVD) or thyroid enlargement. Heart sounds are regular and lung sounds clear to auscultation. Abdomen is soft and nontender and peritoneal dialysis catheter is intact. Extremities have no cyanosis or clubbing. Neurologically, she is awake, but confused and disoriented. No focal neurological deficit identified. He is able to move all four extremities. Today's labs show a sodium level of 130, potassium 3.6, chloride 92, CO2 29, BUN 31, creatinine 11.90, calcium level 10.6 and phosphorus 4.5. Albumin 2.6 and intact PTH is 94.7. PROBLEMS: 1. Altered mentation: Etiology remains uncertain. She has mild hypercalcemia and I am going to stop his calcium supplement and vitamin D supplement. His intact PTH level is slightly low. We will continue with cinacalcet. 2. End-stage renal disease: Patient has been on peritoneal dialysis which is still in progress. We plan to perform hemodialysis today after he gets PermaCath placed and is scheduled for procedure at about 10:30 a.m. I have explained to the patient and his significant other and she is in agreement. It remains to be seen how he improves with hemodialysis of his altered mentation is related to uremia. 3. Hyponatremia: This is chronic and unchanged and I do not feel that hyponatremia has any role in his overall condition or altered mentation. This will, however, be corrected with dialysis today. 4. Hypokalemia: Potassium level is borderline low related to decreased oral intake. Patient will be dialyzed with 4.0 mEq potassium bath which is likely to correct his hypokalemia also. 5. Hypertension: Blood pressure has been well controlled and will continue current antihypertensive medications.
[2019-05-07] MEDS: IPRATROPIUM 0.5MG/ALBUTEROL 2.5MG INH SOL UD 3ML (DUONEB)(J7620) NEB PRN (17:17)
[2019-05-07] MEDS: DOCUSATE SODIUM 100 MG CAP PO PRN (18:39)
[2019-05-07] MEDS: METOPROLOL SUCC (TopROL XL) 100MG *XL* TAB PO SCH (21:04)
[2019-05-07] MEDS: LOSARTAN 50 MG TAB PO SCH (21:05)
[2019-05-07 22:00] VITALS: BP_SYST 113; BP_SYST 137; BP_DIAS 81; BP_DIAS 83
[2019-05-08] MEDS: ACETAMINOPHEN TAB 650MG DOSE (2X325MG) PO PRN ×3 (02:57→18:51)
[2019-05-08] MEDS: HEPARIN SOD (PORCINE) 5000 UNITS/ML VIAL (J1644 PER 1000UNITS) SC SCH ×3 (05:56→21:39)
[2019-05-08 06:00] VITALS: BP 170/90
[2019-05-08 07:05] LABS: ALBUMIN 2.4 GM/DL (3.2-5.2); CREATININE FOR GFR 7.71 MG/DL (0.70-1.30); GLOMERULAR FILTRATION RATE 8.9 (>42); PHOSPHORUS LEVEL 2.8 MG/DL (2.5-4.9); POTASSIUM SERUM 3.8 MEQ/L (3.5-5.1)
[2019-05-08] MEDS: OMEPRAZOLE 20 MG CAP PO SCH (08:03)
[2019-05-08] MEDS: MULTIVITAMINS/MINERALS THERAP 1 TAB PO SCH (08:03)
[2019-05-08] MEDS: ASPIRIN 81 MG ENTERIC TAB PO SCH (08:04)
[2019-05-08] MEDS: CINACALCET 30 MG TAB (SENSIPAR) PO SCH (08:04)
[2019-05-08] MEDS: ISOSORBIDE MON. (IMDUR) 60 MG XR TAB PO SCH (08:04)
[2019-05-08] MEDS: (RENVELA) SEVELAMER **CARBONate** 800 MG TAB PO SCH ×3 (08:04→17:56)
[2019-05-08] MEDS: NITROGLYCERIN 2% OINT 1 GM *U/D* PKT TOP SCH ×2 (08:05→21:39)
[2019-05-08] MEDS: LIDOCAINE 5% OINT 30 GM TOP SCH ×2 (08:06→21:38)
[2019-05-08] MEDS: IPRATROPIUM 0.5MG/ALBUTEROL 2.5MG INH SOL UD 3ML (DUONEB)(J7620) NEB PRN (08:40)
--- NOTE | 2019-05-08 09:12 | REP ---
IR Permcath placement. IR ultrasound of the right neck. IR ultrasound of the left neck. IR Permcath insertion under fluoroscopy and ultrasound guidance. Clinical information: Renal failure. Needs dialysis. Physician: Dr. Hernandez. Procedure: The patient was advised of the benefits, risks and alternatives of the procedure and informed consent was obtained. The time-out was performed with verification of the patient's name, MRN, site of procedure and type of procedure to be performed. The patient was positioned in the supine position on the angiographic table. The site was prepped and draped in the usual sterile fashion. Moderate sedation was not performed as patient was not n.p.o. Fentanyl was administered for analgesia. The physician spent 45 minutes of continuous face to face time with the patient. 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 Likely relates to multiple prior right sided PermCath. Ultrasound of the left neck demonstrates patent and compressible left internal jugular vein. A trauma doctor radiograph reveals no gross abnormality. The neck and anterior chest wall were anesthetized with lidocaine. The left internal jugular vein was accessed under ultrasound guidance, using a micro introducer needle, via a lateral approach. An 018 cope wire was advanced into the inferior vena cava. Incision at the internal jugular access site and anterior chest wall were made using a scalpel. The needle was removed and the tract was serially dilated under fluoroscopy guidance. A peel away sheath was advanced over the wire under fluoroscopy guidance into the Superior vena cava. The catheter was inserted through the subcutaneous tissues of the chest wall with a tunneling device. The catheter was then advanced through the peel-away sheath under fluoroscopy guidance to the right atrium. The peel-away sheath was removed. The catheter was positioned with the tip in the right atrium. The puncture site was closed. The catheter was secured in place using 2-0 Prolene. Both sites were cleansed and sterile dressings applied. At the conclusion of the procedure, the ports of the catheter aspirate and flush freely. The catheter was locked with high-dose heparin. The patient tolerated the procedure well and was returned to the PRU in stable condition. EBL: < 5 ml. Complications: None. Conclusion: 1. Ultrasound demonstrates occluded right internal jugular vein but patent left internal jugular vein. 2. Successful placement of left sided Permcath for dialysis. The catheter is ready for immediate use. Thank you this referral. Cc Shanel Forman. Electronically Signed by Jia Hernandez MD 05/08/2019 09:11 A
[2019-05-08 11:00] LABS: ALBUMIN 2.99 GM/DL (3.29-5.55); ALBUMIN % 52.5 % (55.8-66.1); ALPHA-1-GLOBULIN % 7.6 % (2.9-4.9); ALPHA-1-GLOBULINS 0.43 GM/DL (0.17-0.41); ALPHA-2-GLOBULINS 0.89 GM/DL (0.42-0.99); ALPHA-2-GLOBULINS % 15.6 % (7.1-11.8); BETA-1-GLOBULINS 0.32 GM/DL (0.28-0.60); BETA-1-GLOBULINS % 5.6 % (4.7-7.2); BETA-2-GLOBULINS 0.42 GM/DL (0.19-0.55); BETA-2-GLOBULINS % 7.4 % (3.2-6.5); GAMMA GLOBULIN % 11.3 % (11.1-18.8); GAMMA GLOBULINS 0.64 GM/DL (0.65-1.58)
[2019-05-08] MEDS ORDERED: HEPARIN 1,000 UNITS/ML 10ML VIAL (FOR RADIOLOGY& DIALYSIS ONLY)(J1644-10) XX ONE (11:30)
[2019-05-08] MEDS ORDERED: HEPARIN 1,000 UNITS/ML 10ML VIAL (FOR RADIOLOGY& DIALYSIS ONLY)(J1644-10) IV ONE (11:30)
--- NOTE | 2019-05-08 12:41 | IPN ---
DATE OF VISIT: 05/08/2019 Mr. Mckinney is seen this morning during hemodialysis. He was dialyzed yesterday due to suspicion for uremic encephalopathy. He seems to be slightly better but still confused and could not answer questions appropriately. However, he is talking much better and more fluently today. He is being hemodialyzed again today. He has a complaint of pain in his left big toe. No dyspnea, chest pain, nausea, vomiting, fever, or chills reported. On physical examination, temperature 97 degrees Fahrenheit, heart rate 70 per minute, and respiratory rate 20 per minute. Blood pressure 170/90 mmHg and oxygen saturation 100% on room air. Head is atraumatic. Neck: Supple and without jugular venous distention (JVD) or thyroid enlargement. PermCath on right upper chest is without any signs of infection or bleeding. Heart sounds are regular. Lungs clear to auscultation. Abdomen: Soft and nontender, and peritoneal dialysis catheter is intact. Neurologically, he is awake and slightly more alert and able to talk but still not very well oriented and still somewhat confused. Today's laboratories show a sodium level of 136, potassium 3.8, chloride 98, CO2 of 34, BUN 17, and creatinine 7.71. Glucose 89 and calcium 9.0. Albumin is 2.4. PROBLEMS: 1. Altered mentation. We had a suspicion for uremic encephalopathy. The patient was hemodialyzed yesterday and is being dialyzed again today. He has also continued with peritoneal dialysis, but we wanted to see if hemodialysis clears his mentation. He is talking much better today but still confused and not fully oriented. 2. Hyponatremia. Sodium level has corrected, and no intervention is needed at this point. 3. Pain in his left big toe. The patient has complained of severe pain in his left big toe which does not look any significantly infected. I feel that the patient most likely has ischemia causing the pain. Angiogram of his left lower extremity is needed, and he will probably require angioplasty. In the meantime, he remains on antibiotic per hospitalist service. 4. Hypercalcemia. His calcium level has corrected after stopping his calcium acetate and vitamin D. He remains on his cinacalcet 60 mg daily which will be continued. His intact PTH level was only 94.7, so I am going to cut down the dose of cinacalcet to 30 mg daily. 5. Hypertension. Blood pressure is very well controlled, and no changes in antihypertensives are being made.
[2019-05-08 14:00] VITALS: BP 140/65
--- NOTE | 2019-05-08 14:53 | IPNPDOC ---
Subjective Date Seen The patient was seen on 05/08/19. Subjective Chief Complaint/HPI Patient is awake, alert. His fiance at the bedside. Offers no new complaints. Scheduled for hemodialysis today General: Denies: ROS Unobtainable, Chills, Night Sweats, Fatigue, Malaise, Normal Appetite, Other Symptoms Constitutional: Denies: Chills, Fever, Malaise, Night Sweats, Weakness, Fatigue, Weight Loss, Lethargy, Other Pulmonary: Denies: Dyspnea, Cough, Pleuritic Chest Pain, Other Symptoms Cardiovascular: Denies: Chest Pain, Palpitations, Orthopnea, Paroxysmal Noc. Dyspnea, Edema, Lt Headedness, Other Symptoms Gastrointestinal: Denies: Nausea, Vomiting, Abdominal Pain, Diarrhea, Constipation, Melena, Hematochezia, Other Symptoms Endocrine: Denies: Polydipsia, Polyphagia, Polyuria, Heat Intolerance, Cold Intolerance, Other Endocrine Sx Musculoskeletal: Denies: Neck Pain, Back Pain, Shoulder Pain, Arm Pain, Hand Pain, Leg Pain, Foot Pain, Joint Pain, Muscle Pain, Spasms, Other Symptoms Neurological: Denies: Weakness, Numbness, Incoordination, Change in speech, Confusion, Seizures, Other Symptoms Psych: Denies: Mood Normal, Anxiety, Depression, Memory Issues, Thoughts of Self Harm, Anger, Thoughts of Harming Other, Other Psych Objective Physical Examination General Exam: Positive: Cooperative, No Acute Distress Eye Exam: Positive: Conjunctiva & lids normal; Negative: Sclera icteric ENT Exam: Positive: Mucous membr. 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 He he'll be dialyzed as per schedule As per patient's fiance. His mentation is somewhat clearer than yesterday and he is talking much better but still confused at times Continue present medications. Further, as per nephrology (2) Toe infection Problem Text: Patient also has a left big toe infection , But on clinical examination does not look infected, angiogram will be ordered today for further evaluation Continue present antibiotics as per orders Labs in a.m. (3) HTN (hypertension) Problem Text: Under well control. Continue present medications (4) Hypercalcemia Status: Acute Problem Text: Patient's calcium level has corrected after his calcium supplements were DC'd Continue cinacalcet daily as per orders (5) Hyponatremia Status: Resolved Problem Text: 2. Hyponatremia. Sodium level has corrected, and no intervention is needed at this point. Plan/VTE VTE Prophylaxis Ordered?: Yes VTE Exclusion Mechanical Proph: N/A:VTE Prophy Ordered VTE Exclusion Pharmacological: N/A:VTE Prophy Ordered VS, I&O, 24H, Fishbone Vital Signs/I&O Vital Signs Date Time Temp Pulse Resp B/P (MAP) Pulse Ox O2 Delivery O2 Flow Rate FiO2 05/08/19 08:04 170/90 05/08/19 06:00 97.0 70 20 100 05/07/19 11:45 Room Air 05/07/19 11:35 2 I&O- Last 24 Hours up to 6 AM 05/08/19 06:00 Intake Total 840 ml Output Total 500 ml Balance 340 ml Laboratory Data 24H LABS Laboratory Tests 2 05/08/19 06:27: Anion Gap 4L, Glomerular Filtration Rate 8.9L, Calcium Level 9.0#, Phosphorus Level 2.8#, Albumin 2.4L CBC/BMP Laboratory Tests 05/08/19 06:27 Microbiology Microbiology 05/01/19 Blood Culture - Final, Complete NO GROWTH AFTER 5 DAYS DUDLEY VEGA MD May 08, 2019 14:53
[2019-05-08 20:00] VITALS: BP 165/82
[2019-05-08] MEDS: LOSARTAN 50 MG TAB PO SCH (21:38)
[2019-05-08] MEDS: METOPROLOL SUCC (TopROL XL) 100MG *XL* TAB PO SCH (21:38)
[2019-05-08 22:00] VITALS: BP 165/82
[2019-05-09] VITALS (9 sets, daily range): BP systolic 138–190; BP diastolic 66–105
[2019-05-09] MEDS: HEPARIN SOD (PORCINE) 5000 UNITS/ML VIAL (J1644 PER 1000UNITS) SC SCH ×3 (05:54→21:22)
[2019-05-09] MEDS: (RENVELA) SEVELAMER **CARBONate** 800 MG TAB PO SCH ×3 (08:00→18:02)
[2019-05-09] MEDS ORDERED: cloNIDine HCL 0.1 MG/24 HR PATCH TOP SCH (09:00)
[2019-05-09] MEDS: ACETAMINOPHEN TAB 650MG DOSE (2X325MG) PO PRN (09:52)
[2019-05-09] MEDS: OMEPRAZOLE 20 MG CAP PO SCH (09:53)
[2019-05-09] MEDS: ASPIRIN 81 MG ENTERIC TAB PO SCH (09:53)
[2019-05-09] MEDS: MULTIVITAMINS/MINERALS THERAP 1 TAB PO SCH (09:53)
[2019-05-09] MEDS: ISOSORBIDE MON. (IMDUR) 60 MG XR TAB PO SCH (09:57)
[2019-05-09] MEDS: NITROGLYCERIN 2% OINT 1 GM *U/D* PKT TOP SCH ×2 (09:57→20:56)
[2019-05-09] MEDS: CINACALCET 30 MG TAB (SENSIPAR) PO SCH (09:58)
[2019-05-09] MEDS: LIDOCAINE 5% OINT 30 GM TOP SCH ×2 (10:16→20:55)
[2019-05-09] MEDS ORDERED: PARI1CAP3 PO (10:30)
[2019-05-09] MEDS: oxyCODONE 5MG TAB PO PRN ×2 (11:22→18:02)
--- NOTE | 2019-05-09 11:28 | IPNPDOC ---
Subjective Date Seen The patient was seen on 05/09/19. Subjective Chief Complaint/HPI Patient is comfortable in no distress. Offers no new complaints. Blood patient was monitored to be very high this morning General: Denies: ROS Unobtainable, Chills, Night Sweats, Fatigue, Malaise, Normal Appetite, Other Symptoms Constitutional: Denies: Chills, Fever, Malaise, Night Sweats, Weakness, Fatigue, Weight Loss, Lethargy, Other Cardiovascular: Denies: Chest Pain, Palpitations, Orthopnea, Paroxysmal Noc. Dyspnea, Edema, Lt Headedness, Other Symptoms Gastrointestinal: Denies: Nausea, Vomiting, Abdominal Pain, Diarrhea, Constipation, Melena, Hematochezia, Other Symptoms Genitourinary: Denies: Dysuria, Frequency, Incontinence, Hematuria, Retention, Other Symptoms Musculoskeletal: Denies: Neck Pain, Back Pain, Shoulder Pain, Arm Pain, Hand Pain, Leg Pain, Foot Pain, Joint Pain, Muscle Pain, Spasms, Other Symptoms Neurological: Denies: Weakness, Numbness, Incoordination, Change in speech, Confusion, Seizures, Other Symptoms Objective Physical Examination ENT Exam: Positive: Mucous membr. 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 He is in his usual state of mental capacity Continue all present meds (2) Toe infection Problem Text: Patient also has a left big toe infection ut on clinical examination does not look infected, Most likely. Angiogram will be done today Continue present antibiotics as per orders Labs in a.m. (3) HTN (hypertension) Problem Text: Will also start clonidine 0.1 mg patch every weekly Further recommendation as per nephrology Continue all other home meds (4) Hypercalcemia Status: Acute Problem Text: Patient's calcium level has corrected after his calcium supplements were DC'd Continue cinacalcet daily as per orders (5) Hyponatremia Status: Resolved Problem Text: Sodium level has corrected, and no intervention is needed at this point. Plan/VTE VTE Prophylaxis Ordered?: Yes VTE Exclusion Mechanical Proph: N/A:VTE Prophy Ordered VTE Exclusion Pharmacological: N/A:VTE Prophy Ordered VS, I&O, 24H, Fishbone Vital Signs/I&O Vital Signs Date Time Temp Pulse Resp B/P (MAP) Pulse Ox O2 Delivery O2 Flow Rate FiO2 05/09/19 11:22 20 Room Air 05/09/19 09:56 164/82 05/09/19 06:00 99.0 70 96 05/07/19 11:35 2 I&O- Last 24 Hours up to 6 AM 05/09/19 06:00 Intake Total 700 ml Output Total 500 ml Balance 200 ml Laboratory Data Microbiology Microbiology 05/01/19 Blood Culture - Final, Complete NO GROWTH AFTER 5 DAYS DUDLEY VEGA MD May 09, 2019 11:28
[2019-05-09] MEDS ORDERED: fentaNYL 100 MCG/2 ML INJECTION (J3010) As Ordered ONE (13:44)
[2019-05-09] MEDS ORDERED: ISOVUE-300 61% 50ML VIAL (Q9967) As Ordered ONE ×2 (13:45→15:03)
[2019-05-09] MEDS ORDERED: LIDOCAINE 1% MDV 20ML VIAL As Ordered ONE (13:45)
[2019-05-09] MEDS ORDERED: MIDAZOLAM INJ 2 MG/2 ML VIAL (J2250) As Ordered ONE (13:45)
[2019-05-09] MEDS ORDERED: diphenhydrAMINE INJ 50MG/ML VIAL (J1200) As Ordered ONE (13:50)
[2019-05-09] MEDS ORDERED: HEPARIN 1,000 UNITS/ML 10ML VIAL (FOR RADIOLOGY& DIALYSIS ONLY)(J1644-10) As Ordered ONE (14:28)
--- NOTE | 2019-05-09 16:57 | POST-OPPD ---
Postoperative Procedure Note Date Of Procedure: May 09, 2019 Time Of Procedure: 16:55 PREOPERATIVE DIAGNOSIS: let toe pain. non healing wound POSTOPERATIVE DIAGNOSIS: same FINDINGS: patent sfa profunda and popliteal. two vessel run off into foot. Scattered atherosclerotic disease especially involving anterior tibial artery. PROCEDURE: Angiogram SURGEON: Mary ANESTHESIA: Moderate sedation ESTIMATED BLOOD LOSS: Less than 5 mL COMPLICATIONS: None POSTOPERATIVE CONDITION: Stable MEGA CARROLL MD May 09, 2019 16:57
[2019-05-09] MEDS ORDERED: ONDANSETRON 4MG/2ML VIAL (J2405) IV PRN (18:15)
[2019-05-09] MEDS: NS 1,000 ML IV SCH (18:32)
[2019-05-09] MEDS: METOPROLOL SUCC (TopROL XL) 100MG *XL* TAB PO SCH (20:54)
[2019-05-09] MEDS: LOSARTAN 50 MG TAB PO SCH (20:55)
--- NOTE | 2019-05-09 21:59 | IPN ---
DATE: 05/09/2019 Mr. Mckinney is seen this morning on his bedside. He has complained of severe pain in his left big toe. He underwent hemodialysis for the last two days and his mentation seems to be improved significantly. He is talking much better today. His significant other is present in the room and reports that he did not eat very well due to pain. PHYSICAL EXAMINATION: Temperature 97.5 degrees Fahrenheit, heart rate 68 per minute and respiratory rate 18 per minute. Blood pressure 142/80 mmHg and oxygen saturation 98% on room air. His head is atraumatic. Neck is supple and without jugular venous distention (JVD) or thyroid enlargement. Heart sounds are regular. Lungs are clear to auscultation. Abdomen is soft and nontender. Bowel sounds are normal. Extremities without any cyanosis or clubbing. Neurologically, he is awake and able to answer questions much better and clearly today. The patient did not have any new laboratories done today. PROBLEMS: 1. Altered mentation, probably toxic and metabolic related to pain medications and possible uremia. On Tuesday, he had significant asterixis despite peritoneal dialysis. We have hemodialyzed him for the last two days with significant improvement in his blood urea nitrogen (BUN) and creatinine and also with his mentation. We plan to do hemodialysis again tomorrow. 2. Left foot pain. The patient has significant pain in the left big toe. I am concerned about possible ischemia and have already ordered an angiogram. I will discuss with interventional radiology and try to get it done today. We plan to dialyze him tomorrow. For pain control, I am going to put him on oxycodone 5 mg every six hours as needed for severe pain. He will continue with Tylenol for mild to moderate pain as previously. It also remains to be seen if oxycodone affects his mentation as I feel that most of his mentation issue was related to possible uremia. 3. Hypertension. Blood pressure seems to be better controlled now. He has intolerance to several antihypertensive medications. However, he is receiving metoprolol and losartan along with isosorbide. We can adjust the dose of his losartan if needed. His heart rate is well-controlled so we cannot increase beta marlo dose. He is intolerant of multiple other antihypertensive medications. 4. End-stage renal disease. The patient has been on peritoneal dialysis and I felt that he was under-dialyzed with his current prescription. I have checked with outpatient peritoneal dialysis clinic and his adequacy has been above the required range. It remains to be seen how he does with peritoneal dialysis when we switch him back.
[2019-05-10 02:00] VITALS: BP 148/88
[2019-05-10] MEDS: NS 1,000 ML IV SCH (02:22)
[2019-05-10] MEDS: oxyCODONE 5MG TAB PO PRN (02:49)
[2019-05-10 06:00] VITALS: BP 140/62
[2019-05-10] MEDS: DOCUSATE SODIUM 100 MG CAP PO PRN (06:28)
[2019-05-10] MEDS: HEPARIN SOD (PORCINE) 5000 UNITS/ML VIAL (J1644 PER 1000UNITS) SC SCH ×3 (06:28→21:38)
[2019-05-10] MEDS: (RENVELA) SEVELAMER **CARBONate** 800 MG TAB PO SCH ×3 (06:28→18:00)
[2019-05-10] MEDS: CINACALCET 30 MG TAB (SENSIPAR) PO SCH (06:28)
[2019-05-10] MEDS: ASPIRIN 81 MG ENTERIC TAB PO SCH (06:28)
[2019-05-10] MEDS: MULTIVITAMINS/MINERALS THERAP 1 TAB PO SCH (06:28)
[2019-05-10] MEDS: OMEPRAZOLE 20 MG CAP PO SCH (06:29)
[2019-05-10] MEDS: ISOSORBIDE MON. (IMDUR) 60 MG XR TAB PO SCH (06:30)
[2019-05-10 06:36] LABS: CALCIUM LEVEL 8.1 MG/DL (8.8-10.2); CREATININE FOR GFR 7.43 MG/DL (0.70-1.30); GLOMERULAR FILTRATION RATE 9.2 (>42)
[2019-05-10 06:37] LABS: ALBUMIN 2.2 GM/DL (3.2-5.2)
[2019-05-10] MEDS: NITROGLYCERIN 2% OINT 1 GM *U/D* PKT TOP SCH ×2 (06:49→22:14)
[2019-05-10] MEDS: LIDOCAINE 5% OINT 30 GM TOP SCH ×2 (06:50→21:39)
[2019-05-10] MEDS ORDERED: ENTER DRUG NAME HERE (PATIENT'S OWN MED) PO SCH (09:00)
[2019-05-10] MEDS ORDERED: HEPARIN 1,000 UNITS/ML 10ML VIAL (FOR RADIOLOGY& DIALYSIS ONLY)(J1644-10) IV ONE (10:00)
[2019-05-10] MEDS ORDERED: HEPARIN 1,000 UNITS/ML 10ML VIAL (FOR RADIOLOGY& DIALYSIS ONLY)(J1644-10) XX ONE (10:00)
--- NOTE | 2019-05-10 10:06 | REP ---
IR Left leg angiogram. IR Below-knee runoff. IR Sub selective anterior tibial artery catheterization and arteriogram. IR Sub selective peroneal artery catheterization and arteriogram. IR Moderate sedation. Clinical Information: Left toe pain. Non healing left toe wound. Physician: Dr Hernandez.Procedure: The patient was advised of the benefits, risks, and alternatives of the procedure and informed consent was obtained.A time out was performed with verification of the patient's name, MRN, site of procedure, and type of procedure to be performed. The patient was positioned in the supine position on the angiographic table. The site was prepped and draped in the usual sterile fashion.Moderate sedation was performed for the second hour of the procedure after 6 hours of fasting. This was performed by the physician including the presence of an independent trained observer who assisted in monitoring the patient's level of consciousness and physiological status. Moderate sedation was performed for 60 minutes. The physician spent a total of 120 minutes continuous face to face time with the patient. A launderette attendant radiograph reveals a peritoneal dialysis catheter and surgical clips in the pelvis. The right femoral artery was accessed with a micropuncture kit. A [place] wire was advanced into the aorta. The micropuncture sheath was exchanged over the wire for a a 6-Chadian vascular sheath. A 4-Chadian flush catheter was advanced over the wire and used to catheterize the abdominal aorta. A pelvic arteriogram was performed. This demonstrates normal caliber infra renal abdominal aorta. Patent bilateral common iliac, internal iliac and external iliac arteries. A Glidewire was advanced through the flush catheter and under fluoroscopy guidance was used to gain up and over access into the left common iliac artery. The flush catheter was exchanged over the wire for a glide cath. The glide cath in conjunction with a Glidewire was used to catheterize the left common femoral artery. A left leg angiogram was performed from this location. This demonstrates patent left common femoral artery, superficial femoral artery and profunda femoris. No significant focal stenosis. Vessels tomlinson are diffusely calcified. An angiogram further down the leg was performed and this demonstrates patent mid and distal superficial femoral artery and patent popliteal artery. A below-knee runoff arteriogram was performed and this demonstrates focal stenosis at the origin of the anterior tibial artery however there is filling of the proximal anterior tibial artery. Atherosclerotic disease and delayed flow through the mid anterior tibial artery. Patent tibioperoneal trunk, peroneal and posterior tibial artery. Short segment focal stenosis in the posterior tibial artery with continuous flow beyond it. A run off arteriogram to the foot was performed and this demonstrates two-vessel runoff into the foot with scattered microvascular changes. A micro catheter and micro wire were inserted through the diagnostic catheter and used to sub selectively catheterize the distal peroneal artery. An arteriogram was performed and this demonstrates good flow in the peroneal artery. The micro catheter in conjunction with a micro wire was retracted and used to sub selectively catheterize the mid anterior tibial artery. An arteriogram was performed and this demonstrates multifocal stenosis within the mid anterior tibial artery with delayed flow and distal anterior tibial artery occlusion. The catheter in conjunction with a micro wire was used to catheterize the distal anterior tibial artery to the foot. The catheter was removed over wire. Due to the proximal stenosis in the anterior tibial artery, an angioplasty balloon could not be advanced over the wire into the distal anterior tibial artery. However, the wire was used to recanalize the anterior tibial artery all the way to the foot. The micro catheter was retracted and a follow-up arteriogram was performed. This demonstrates improved filling of the proximal and mid anterior tibial artery and continued good filling of the posterior tibial artery and peroneal artery. A completion arteriogram to the foot was performed and this demonstrates preserved two-vessel flow to the left foot. No distal emboli. No vessel dissection or injury. All catheters and wires were removed. A 6-Chadian Mynx device was used to close the groin arteriotomy and the sheath was removed. Hemostasis achieved. A sterile dressing was applied to the site. Patient tolerated the procedure well and was transferred to PRU in stable condition. Complications: None. Estimated blood loss: Less than 5 ml. Impression: 1. Left leg angiogram demonstrates patent inflow and outflow. 2. Below-knee runoff arteriogram demonstrates two-vessel runoff into the left foot. Atherosclerotic disease with delayed flow in the anterior tibial artery and distal anterior tibial artery occlusion. 3. Will refer the patient to podiatry and wound care. I do not think the pain is related to arterial disease however if there is delayed wound healing will consider further attempts at distal anterior tibial artery recanalization. 4. Follow up in IR clinic in 2 weeks. Thank you for this referral. Cc Dr. Patel. Cc Dr. Varghese. Electronically Signed by Jia Hernandez MD 05/10/2019 10:04 A
--- NOTE | 2019-05-10 11:06 | IPNPDOC ---
Subjective Date Seen The patient was seen on 05/10/19. Subjective Chief Complaint/HPI Patient is scheduled for hemodialysis today. No new complaints except left big toe pain General: Denies: ROS Unobtainable, Chills, Night Sweats, Fatigue, Malaise, Normal Appetite, Other Symptoms Constitutional: Denies: Chills, Fever, Malaise, Night Sweats, Weakness, Fatigue, Weight Loss, Lethargy, Other Pulmonary: Denies: Dyspnea, Cough, Pleuritic Chest Pain, Other Symptoms Cardiovascular: Denies: Chest Pain, Palpitations, Orthopnea, Paroxysmal Noc. Dyspnea, Edema, Lt Headedness, Other Symptoms Gastrointestinal: Denies: Nausea, Vomiting, Abdominal Pain, Diarrhea, Constipation, Melena, Hematochezia, Other Symptoms Genitourinary: Denies: Dysuria, Frequency, Incontinence, Hematuria, Retention, Other Symptoms Musculoskeletal: Denies: Neck Pain, Back Pain, Shoulder Pain, Arm Pain, Hand Pain, Leg Pain, Foot Pain, Joint Pain, Muscle Pain, Spasms, Other Symptoms Neurological: Denies: Weakness, Numbness, Incoordination, Change in speech, Confusion, Seizures, Other Symptoms Objective Physical Examination ENT Exam: Positive: Mucous membr. moist/pink, Pharynx Normal Neck Exam: Positive: Supple; Negative: JVD, thyromegaly Chest Exam: Positive: Clear to auscultation Heart Exam: Positive: Rate Normal, Normal S1, Normal S2 Abdomen Exam: Positive: Normal bowel sounds Extremity Exam: Positive: Other (left hallux toe discolored but no signs of infection); Negative: Clubbing, Cyanosis, Edema Neuro Exam: Positive: Normal Speech Psych Exam: Positive: Mental status NL Assessment /Plan Problems (1) Acute metabolic encephalopathy Problem Text: Altered mental status secondary to acute metabolic encephalopathy secondary to most likely uremic encephalopathy Patient is scheduled for dialysis again today Patient's mentation is much improved. In his normal state of health at present Case with Dr. Weathers. We'll also get a podiatry consult for left big toe pain Discussed with physical therapy. He possibly will require placement and rehabilitation facility (2) Toe infection Problem Text: linical examination does not look infected, Angiogram does not show any acute pathology Discuss with Dr. Forman will call Dr. Grider for podiatry consultation (3) HTN (hypertension) Problem Text: Will also start clonidine 0.1 mg patch every weekly Further recommendation as per nephrology Continue all other home meds (4) Hypercalcemia Status: Acute Problem Text: Patient's calcium level has corrected after his calcium supplements were DC'd Continue cinacalcet daily as per orders (5) Hyponatremia Status: Resolved Problem Text: Sodium level has corrected, and no intervention is needed at this point. Plan/VTE VTE Prophylaxis Ordered?: Yes VTE Exclusion Mechanical Proph: N/A:VTE Prophy Ordered VTE Exclusion Pharmacological: N/A:VTE Prophy Ordered VS, I&O, 24H, Fishbone Vital Signs/I&O Vital Signs Date Time Temp Pulse Resp B/P (MAP) Pulse Ox O2 Delivery O2 Flow Rate FiO2 05/10/19 06:30 140/62 05/10/19 06:00 97.8 72 18 98 Room Air 05/09/19 16:35 2 I&O- Last 24 Hours up to 6 AM 05/10/19 06:00 Intake Total 807.5 ml Output Total 0 ml Balance 807.5 ml Laboratory Data 24H LABS Laboratory Tests 2 05/10/19 05:46: Anion Gap 7L, Glomerular Filtration Rate 9.2L, Calcium Level 8.1L, Phosphorus Level 3.0, Albumin 2.2L CBC/BMP Laboratory Tests 05/10/19 05:46 Microbiology Microbiology 05/01/19 Blood Culture - Final, Complete NO GROWTH AFTER 5 DAYS DUDLEY VEGA MD May 10, 2019 11:06
--- NOTE | 2019-05-10 11:10 | IPN ---
DATE OF VISIT: 05/10/2019 Mr. Mckinney is seen this morning during hemodialysis. He had angiogram of left lower extremity done yesterday and no significant blockage was identified. He did not require any angioplasty. He is still confused though he is talking much better but remains disoriented and somewhat confused. No fever, chills, nausea, vomiting, dyspnea or chest pain noted. On physical exam temperature 97.8 degrees Fahrenheit, heart rate 72 per minute and respiratory rate 18 per minute. Blood pressure 140/62 mmHg and oxygen saturation 98% on room air. Head is atraumatic. Neck supple and without jugular venous distention (JVD) or thyroid enlargement. Right internal jugular vein hemodialysis catheter is intact. Heart sounds are regular, somewhat distant and lungs clear to auscultation. Abdomen soft and nontender and peritoneal dialysis catheter is intact. Extremities have no cyanosis or clubbing. Neurologically he is awake, confused and somewhat disoriented. He is talking but still not making much sense and at times. Today's labs show sodium 140, potassium 4.0, CO2 29, BUN 17 and creatinine 7.43. Calcium is 8.1 and phosphorus 3.0. Albumin 2.2. PROBLEMS: 1. End-stage renal disease. The patient remains on hemodialysis at present. He is still confused though not as confused as he was while he was on peritoneal dialysis. I do not feel that this is all uremic encephalopathy. The patient is likely to go to [facility] and we will continue with hemodialysis at present. If his mentation improves completely and he is able to return home then we can consider switching him back to peritoneal dialysis. 2. Hypertension. Blood pressure is reasonably well-controlled on current medications and no changes are being made today. 3. Anemia. His anemia remains stable and does not need any urgent intervention. 4. Left big toe pain. The patient remains in significant pain and he states that even Percocet is not helping. He did not have any significant vascular compromise. I would recommend to get a podiatry consultation. The patient can probably be considered for an MRI to rule out any possibility of osteomyelitis though there is no obvious deep ulcer or drainage. 5. Altered mentation. Initially it was felt that his altered mentation was related to narcotics, however, that does not seem to be the case. He has been very well dialyzed now so uremic encephalopathy also seems unlikely though his mentation has improved but not completely back to normal. We will continue to monitor closely. He is likely to require rehab in [facility] due to his multiple comorbid conditions and altered mentation.
[2019-05-10 14:00] VITALS: BP 130/65
--- NOTE | 2019-05-10 20:17 | IPN ---
DATE: 05/10/2019 Patient is seen and examined. He is with his at bedside. Presently, he is drowsy as he just had dialysis. I was asked to revisit the patient as he has had persisting and somewhat worsening left hallux pain. He had the angiogram performed, no occlusions amenable to angioplasty were noted VITAL SIGNS: He has remained afebrile. LABORATORY DATA: White blood cell is 6.7. LOWER EXTREMITY EXAMINATION: There is distal eschar to the left hallux with tenderness to palpation. The hallux nail is loosened with some slight fluid underneath it. PLAN: The loose portion of the hallux nail was carefully removed to hopefully alleviate some of the pressure on the wound. Continue lidocaine and mupirocin to the wound itself with the Nitropaste at the base of the toe. MRI ordered to rule out any further deep space infection. The toe itself does not appear to be clinically infected and more of a vascular issue. However, it would be prudent to rule out osteomyelitis as a potential causative factor. We will continue to monitor. Ultimately, there are plans for him to followup in the wound care center. He does not appear to be a very good candidate for hyperbaric oxygen. There could be some consideration for topical oxygen therapy. He may ultimately require amputation of this hallux if there is no improvement to bloodflow. ILDA
[2019-05-10] MEDS: LOSARTAN 50 MG TAB PO SCH (21:38)
[2019-05-10] MEDS: METOPROLOL SUCC (TopROL XL) 100MG *XL* TAB PO SCH (21:39)
[2019-05-10 22:00] VITALS: BP 142/76
[2019-05-11 02:00] VITALS: BP 138/62
[2019-05-11 06:00] VITALS: BP 138/60
[2019-05-11] MEDS: HEPARIN SOD (PORCINE) 5000 UNITS/ML VIAL (J1644 PER 1000UNITS) SC SCH (06:11)
[2019-05-11] MEDS: ASPIRIN 81 MG ENTERIC TAB PO SCH (07:48)
[2019-05-11] MEDS: MULTIVITAMINS/MINERALS THERAP 1 TAB PO SCH (07:48)
[2019-05-11] MEDS: OMEPRAZOLE 20 MG CAP PO SCH (07:48)
[2019-05-11] MEDS: CINACALCET 30 MG TAB (SENSIPAR) PO SCH (07:48)
[2019-05-11 07:49] VITALS: BP 138/60
[2019-05-11] MEDS: NITROGLYCERIN 2% OINT 1 GM *U/D* PKT TOP SCH (07:49)
[2019-05-11] MEDS: ISOSORBIDE MON. (IMDUR) 60 MG XR TAB PO SCH (07:49)
[2019-05-11] MEDS: LIDOCAINE 5% OINT 30 GM TOP SCH (07:50)
[2019-05-11] MEDS: (RENVELA) SEVELAMER **CARBONate** 800 MG TAB PO SCH ×2 (07:50→12:33)
[2019-05-11] MEDS: IPRATROPIUM 0.5MG/ALBUTEROL 2.5MG INH SOL UD 3ML (DUONEB)(J7620) NEB PRN (07:51)
[2019-05-11 10:00] VITALS: BP 147/78
--- NOTE | 2019-05-11 10:06 | REP ---
MRI LEFT FOOT WITHOUT CONTRAST: HISTORY: Ulcer at the left great toe. Evaluate for osteomyelitis. No comparison radiographs are available. TECHNIQUE: Axial, coronal and sagittal imaging planes are utilized. T1- and T2-weighted scans were obtained with and without fat saturation. MRI FINDINGS: There is T2 hyperintense marrow edema pattern in the distal phalanx of the great toe. T1 signal intensity is normal and cortical margins appear preserved. There is soft tissue swelling along the volar and medial aspect of the distal phalanx and IP joint area of the great toe. There is a moderate hallux valgus. Cortical and medullary bone signal intensity are otherwise normal. There is bunion associated spurring of the distal aspect of the first metatarsal. There is a moderate amount of fluid surrounding the flexor hallucis longus tendon at the midfoot level. This may be normal. No abnormal soft tissue fluid collection is seen. IMPRESSION: Soft-tissue swelling about the great toe particularly medial and volar aspect. There is marrow edema pattern in the distal phalanx of the great toe but no cortical disruption or low T1 signal intensity. No definite osteomyelitis. Electronically Signed by Daniel Williamson MD 05/11/2019 12:14 P
--- NOTE | 2019-05-11 10:29 | IPNPDOC ---
Subjective Date Seen The patient was seen on 05/11/19. Subjective Chief Complaint/HPI Patient comfortable in no distress. Awaiting MRI of the left big toe General: Denies: ROS Unobtainable, Chills, Night Sweats, Fatigue, Malaise, Normal Appetite, Other Symptoms Constitutional: Denies: Chills, Fever, Malaise, Night Sweats, Weakness, Fatigue, Weight Loss, Lethargy, Other Pulmonary: Denies: Dyspnea, Cough, Pleuritic Chest Pain, Other Symptoms Cardiovascular: Denies: Chest Pain, Palpitations, Orthopnea, Paroxysmal Noc. Dyspnea, Edema, Lt Headedness, Other Symptoms Gastrointestinal: Denies: Nausea, Vomiting, Abdominal Pain, Diarrhea, Constipation, Melena, Hematochezia, Other Symptoms Musculoskeletal: Denies: Neck Pain, Back Pain, Shoulder Pain, Arm Pain, Hand Pain, Leg Pain, Foot Pain, Joint Pain, Muscle Pain, Spasms, Other Symptoms Neurological: Denies: Weakness, Numbness, Incoordination, Change in speech, Confusion, Seizures, Other Symptoms Objective Physical Examination ENT Exam: Positive: Mucous membr. moist/pink, Pharynx Normal Neck Exam: Positive: Supple Chest Exam: Positive: Clear to auscultation Heart Exam: Positive: Rate Normal, Normal S1, Normal S2 Abdomen Exam: Positive: Normal bowel sounds Extremity Exam: Positive: Other (left hallux toe discolored but no signs of infection) Neuro Exam: Positive: Normal Speech Psych Exam: Positive: Mental status NL Assessment /Plan Problems (1) Acute metabolic encephalopathy Problem Text: Altered mentation has almost resolved Continue present medications Patient has been accepted to ARU, but patient and his fianc haven't decided yet Continue present meds (2) Toe infection Problem Text: clinical examination does not look infected, Angiogram does not show any acute pathology MRI of the left big toe did not show any osteomyelitis Patient can be discharged to acute rehabilitation unit (3) HTN (hypertension) Problem Text: Will also start clonidine 0.1 mg patch every weekly Further recommendation as per nephrology Continue all other home meds (4) Hypercalcemia Status: Resolved Problem Text: Patient's calcium level has corrected after his calcium supplements were DC'd Continue cinacalcet daily as per orders (5) Hyponatremia Status: Resolved Problem Text: Sodium level has corrected, and no intervention is needed at this point. Plan/VTE VTE Prophylaxis Ordered?: Yes VTE Exclusion Mechanical Proph: N/A:VTE Prophy Ordered VTE Exclusion Pharmacological: N/A:VTE Prophy Ordered VS, I&O, 24H, Fishbone Vital Signs/I&O Vital Signs Date Time Temp Pulse Resp B/P (MAP) Pulse Ox O2 Delivery O2 Flow Rate FiO2 05/11/19 10:00 98.2 64 18 147/78 (101) 100 Room Air 05/09/19 16:35 2 I&O- Last 24 Hours up to 6 AM 05/11/19 06:00 Intake Total 1400 ml Output Total 550 ml Balance 850 ml Laboratory Data Microbiology Microbiology 05/01/19 Blood Culture - Final, Complete NO GROWTH AFTER 5 DAYS DUDLEY VEGA MD May 11, 2019 10:29
[2019-05-11] MEDS ORDERED: COZA50TA PO (11:37)
[2019-05-11] MEDS ORDERED: MYLASSUD PO (11:37)
[2019-05-11] MEDS ORDERED: OXYC-517 PO (11:37)
[2019-05-11] MEDS ORDERED: DOCU100C16 PO (11:37)
[2019-05-11] MEDS ORDERED: IPRA0.00 NEB (11:37)
[2019-05-11] MEDS ORDERED: CLON0.1D3 TOP (11:37)
[2019-05-11] MEDS ORDERED: ACET1TAB55 PO (11:37)
[2019-05-11] MEDS: oxyCODONE 5MG TAB PO PRN (12:33)
--- NOTE | 2019-05-11 14:18 | DS.PDOC ---
Discharge Summary General Date of Admission May 01, 2019 at 20:42 Date of Discharge 05/11/19 Discharge Summary PROCEDURES PERFORMED DURING STAY: None. ADMITTING DIAGNOSES: 1. . DISCHARGE DIAGNOSES: 1. . COMPLICATIONS/CHIEF COMPLAINT: Infected Toe. HISTORY OF PRESENT ILLNESS: The patient received Percocet and was listless therefore his provided the majority of the history. This is a 78-year-old man was transferred from an outside hospital where he presented with complaints of weakness for several days; according to the patient's , he slipped and almost had a fall. He is been having difficulties taking care of him. About one month ago after clipping his toenails, he developed an infection at his left large and had a surgical procedure done on it. Over the last week the toe became discolored. The patient denies having shortness of breath, nausea, fevers, chills, chest pain or any other acute complaints at this time. He had several tests done at the outside hospital: WBC 7.7, hemoglobin 11.6, platelets 238. Sodium 133, potassium 3.4, chloride 90, bicarbonate 28, BUN 23, creatinine 11.1, Luke was 118, GFR 6. BMP 20,588, troponin 0.09. D-dimer 0.71. The chest x-ray was unremarkable. The EKG showed first-degree AV block with PVCs and a rate of 63. He had a CT of the chest as well, we will ask the Department of radiology to upload the images and report . Influenza was negative.. HOSPITAL COURSE: Patient was admitted with acute mental status changes Mental status changes most likely secondary to uremic symptoms Patient was seen by nephrology, Dr. Forman had seen the patient pt has been started on hemodialysis. He received total 3 treatments of hemodialysis in the hospital His mentation improved very well, back to his baseline mental status Patient will continue hemodialysis 3 times a week as per nephrology Patient will be transferred to acute rehabilitation unit for rehabilitation. Patient has been complaining of left toe pain for which he had angiogram done which did not show any acute pathology MRI of the left big toe was ordered from podiatry, which again showed soft tissue swelling but no evidence of osteomyelitis Patient will be discharged to acute rehabilitation unit on all current medications and follow with Dr. Forman as per schedule ]. DISCHARGE MEDICATIONS: Please see below. ALLERGIES: Please see below. PHYSICAL EXAMINATION ON DISCHARGE: VITAL SIGNS: Please see below. GENERAL: Within normal limits HEENT: PERRLA, extra ocular muscles intact NECK: Supple, no JVD, no lymphadenopathy CARDIOVASCULAR EXAMINATION: S1, S2, regular RESPIRATORY EXAMINATION: Clear to A&P ABDOMINAL EXAMINATION: , Soft, nontender, bowel sounds present EXTREMITIES: No clubbing, cyanosis, edema SKIN: Within normal limits NEUROLOGICAL EXAMINATION: . No focal motor sensory deficit PSYCHIATRIC EXAMINATION: Normal LABORATORY DATA: Please see below. IMAGING: MRI of left foot: Soft-tissue swelling about the great toe particularly medial and volar aspect. There is marrow edema pattern in the distal phalanx of the great toe but no cortical disruption or low T1 signal intensity. No definite osteomyelitis. PROGNOSIS: Good ACTIVITY: As tolerated. DIET: As tolerated DISCHARGE PLAN: Discharged to acute rehabilitation unit DISPOSITION: 01 Home, Self-Care. DISCHARGE INSTRUCTIONS: 1. As per discharge instructions. ITEMS TO FOLLOWUP ON ON OUTPATIENT: 1. Follow with Dr. Weathers as an outpatient. DISCHARGE CONDITION: Stable. TIME SPENT ON DISCHARGE: 37 minutes. Vital Signs/I&Os Vital Signs Date Time Temp Pulse Resp B/P (MAP) Pulse Ox O2 Delivery O2 Flow Rate FiO2 05/11/19 13:03 15 Room Air 05/11/19 10:00 98.2 64 147/78 (101) 100 05/09/19 16:35 2 I&O- Last 24 Hours up to 6 AM 05/11/19 06:00 Intake Total 1400 ml Output Total 550 ml Balance 850 ml Microbiology Microbiology 05/01/19 Blood Culture - Final, Complete NO GROWTH AFTER 5 DAYS Discharge Medications Scheduled Aspirin (Aspir 81) 81 Mg Tab, 81 MG PO DAILY, (Reported) Calcium Acetate (Calcium Acetate) 667 Mg Cap, 667 MG PO WM, (Reported) Cholecalciferol (Vitamin D3) (Vitamin D3) 1,000 Unit Capsule, 2,000 UNIT PO DAILY, (Reported) Cinacalcet (Sensipar) 30 Mg Tab, 60 MG PO DAILY, (Reported) Clonidine (Clonidine) 0.1 Mg Patch.tdwk, 1 EA TOP We@0900 Epoetin Irving (Procrit) 20,000 Unit/1 Ml Vial, 20,000 UNIT SC 1XWK, (Reported) MONDAYS Isosorbide Mononitrate (Isosorbide Mononitrate ER) 60 Mg Tab.er.24h, 60 MG PO DAILY, (Reported) Losartan Potassium (Cozaar) 50 Mg Tablet, 50 MG PO QHS Metoprolol Succinate (Metoprolol Succinate) 100 Mg Tab.er.24h, 100 MG PO QHS, (Reported) Multivitamins (Thera M Plus Tablet) 1 Tab Tab, 1 TAB PO DAILY, (Reported) Omeprazole (Omeprazole) 20 Mg Cap, 20 MG PO DAILY, (Reported) Paricalcitol (Paricalcitol) 1 Mcg Capsule, 2 CAP PO QAM, (Reported) Potassium Chloride (Potassium Chloride) 20 Meq Tab.er.prt, 20 MEQ PO DAILY, (Reported) Sevelamer Carbonate (Renvela) 800 Mg Tablet, 800 MG PO WM, (Reported) Scheduled PRN Acetaminophen (Acetaminophen) 325 Mg Tablet, 650 MG PO Q4H PRN for PAIN OR FEVER Albuterol Sulfate (Proventil Hfa) 6.7 Gm Hfa.aer.ad, 2 PUFF INH QID PRN for SOB/WHEEZING, (Reported) Allopurinol (Allopurinol) 100 Mg Tablet, 100 MG PO DAILY PRN for GOUT FLARE UPS, (Reported) Aluminum/Magnesium/Simeth (Mag-Al Plus Suspension) 30 Ml Oral.susp, 30 ML PO DAILY PRN for DYSPEPSIA Docusate Sodium (Docusate Sodium) 100 Mg Capsule, 100 MG PO Q12HP PRN for CONSTIPATION Febuxostat (Uloric) 40 Mg Tab, 40 MG PO DAILY PRN for GOUT FLARE UPS, (Reported) Ipratropium/Albuterol Sulfate (Iprat-Albut 0.5-3(2.5) mg/3 ml) 3 Ml Ampul.neb, 3 ML NEB Q8HP PRN for SOB/WHEEZING Oxycodone HCl (Oxycodone HCl) 5 Mg Tablet, 5 MG PO Q6HP PRN for PAIN LEVEL 6-10 Allergies Coded Allergies: amlodipine (Verified Allergy, Unknown, 05/01/19) indomethacin (Verified Allergy, Unknown, 05/01/19) nifedipine (Verified Allergy, Unknown, 05/01/19) hydralazine (Verified Adverse Reaction, Mild, ELEVATED BP, 05/01/19) DUDLEY VEGA MD May 11, 2019 14:18
== END 2019-05-11 13:30 | DRG 70 ==
LOC: M MSPAV 20:42
PROVIDERS: ADMIT Internal Medicine; ATTEND Internal Medicine
PROC: 3E1M39Z Irrigation of Peritoneal Cavity using Dialysate, Percutaneous Approach (ICD-10-PCS; principal; 2019-05-01)
PROC: 02HV33Z Insertion of Infusion Device into Superior Vena Cava, Percutaneous Approach (ICD-10-PCS; 2019-05-07)
PROC: 0JH60XZ Insertion of Tunneled Vascular Access Device into Chest Subcutaneous Tissue and Fascia, Open Approach (ICD-10-PCS; 2019-05-07)
PROC: 5A1D70Z Performance of Urinary Filtration, Intermittent, Less than 6 Hours Per Day (ICD-10-PCS; 2019-05-07)
PROC: B40CYZZ Plain Radiography of Pelvic Arteries using Other Contrast (ICD-10-PCS; 2019-05-09)
PROC: B40GYZZ Plain Radiography of Left Lower Extremity Arteries using Other Contrast (ICD-10-PCS; 2019-05-09)
DX: G93.41 Metabolic encephalopathy (principal); N18.6 End stage renal disease; I13.2 Hypertensive heart and chronic kidney disease with heart failure and with stage 5 chronic kidney disease, or end stage renal disease; I50.42 Chronic combined systolic (congestive) and diastolic (congestive) heart failure; N25.81 Secondary hyperparathyroidism of renal origin; L97.528 Non-pressure chronic ulcer of other part of left foot with other specified severity; E87.1 Hypo-osmolality and hyponatremia; E46 Unspecified protein-calorie malnutrition; R53.1 Weakness; M10.30 Gout due to renal impairment, unspecified site; L08.9 Local infection of the skin and subcutaneous tissue, unspecified; E87.6 Hypokalemia; I70.245 Atherosclerosis of native arteries of left leg with ulceration of other part of foot; E83.52 Hypercalcemia; R53.81 Other malaise; I44.0 Atrioventricular block, first degree; I27.20 Pulmonary hypertension, unspecified; D63.1 Anemia in chronic kidney disease; I25.10 Atherosclerotic heart disease of native coronary artery without angina pectoris; K21.9 Gastro-esophageal reflux disease without esophagitis; Z85.46 Personal history of malignant neoplasm of prostate; Z87.891 Personal history of nicotine dependence; Z99.2 Dependence on renal dialysis; Z85.528 Personal history of other malignant neoplasm of kidney; Z90.5 Acquired absence of kidney; Z79.82 Long term (current) use of aspirin; Z88.6 Allergy status to analgesic agent; Z88.8 Allergy status to other drugs, medicaments and biological substances

== ENCOUNTER 2019-05-11 12:36 | Inpatient (IN) | payer MEDICARE, OTHER ==
[~2019-05-11] VITALS: Ht 174 cm; Wt 83.9 kg
[~2019-05-11 12:36] MED LIST changes: +ACET1TAB55 PO; +ALLO10TA PO; +CLON0.1D3 TOP; +COZA50TA PO; +DOCU100C16 PO; +IPRA0.00 NEB; +ISOS60TA2 PO; +METO1TAB33 PO; +MYLASSUD PO; +OXYC-517 PO; +PARI1CAP3 PO; +POTA20TA6 PO; +PROC20004 SC; +PROV108A INH; +VITA100054 PO
[2019-05-11 13:45] VITALS: BP 146/70
[2019-05-11] MEDS ORDERED: ACETAMINOPHEN TAB 650MG DOSE (2X325MG) PO PRN (14:15)
[2019-05-11] MEDS ORDERED: MOM 30ML SUSPENSION UDC PO PRN (14:15)
[2019-05-11] MEDS ORDERED: NITROGLYCERIN 0.4 MG SUBL TABLET SL PRN (14:15)
[2019-05-11] MEDS ORDERED: oxyCODONE 5MG TAB PO PRN ×2 (14:15→17:30)
[2019-05-11] MEDS: IPRATROPIUM 0.5MG/ALBUTEROL 2.5MG INH SOL UD 3ML (DUONEB)(J7620) NEB SCH ×2 (15:56→22:38)
[2019-05-11] MEDS: REMEDY PHYTOPLEX Z-GUARD PASTE 113GM TUBE (FROM STOREROOM PRODUCT) TOP SCH ×2 (16:00→21:14)
--- NOTE | 2019-05-11 16:30 | IPN ---
DATE: 05/11/2019 Mr. Mckinney is seen this morning on his bedside. He is feeling about the same and continues to have pain in his left big toe. He denies any nausea, vomiting, dyspnea or chest pain. He is talking much better today and seems to be back to his baseline mentation. He is talking about the possibility of going to acute rehab. PHYSICAL EXAMINATION: Temperature 98.2 degrees Fahrenheit, heart rate 64 per minute and respiratory rate 16 per minute. Blood pressure 147/78 mmHg and oxygen saturation 100%. His head is atraumatic. Neck is supple and without jugular venous distention (JVD) or thyroid enlargement. Dialysis catheter on right upper chest is intact. Heart: Sounds regular and lungs clear to auscultation. Abdomen: Soft and nontender and bowel sounds are normal. The peritoneal dialysis catheter is intact. Extremities have no cyanosis or clubbing. Neurologically he is awake and alert and seems to be back to his baseline mentation. The patient did not have any new labs today. PROBLEMS 1. End-stage renal disease. The patient is currently on hemodialysis. He is likely to go for rehab and we will continue with hemodialysis until he is done with rehab and goes back home. Once he is home then he can return to his peritoneal dialysis and would like to get his Perma-Cath removed prior to discharge. 2. Generalized weakness and deconditioning. The patient has been in the bed mostly for last several days. He was up in the bathroom today and shaved himself. He is going for acute rehab which is encouraging and appropriate. 3. Left big toe infection and pain. His infection seems to be minimal and limited to skin. He had an MRI of his foot today to rule out any possibility of osteomyelitis. Pain control will need to be achieved with oral medications. 4. Hypertension. Blood pressure is very well controlled with current medications.
[2019-05-11] MEDS: VITAMIN D 1,000 INTERNATIONAL UNITS TABLET PO SCH (16:55)
[2019-05-11] MEDS: POTASSIUM CHLORIDE 10 MEQ SR TABLET PO SCH (16:55)
[2019-05-11] MEDS: HEPARIN SOD (PORCINE) 5000 UNITS/ML VIAL (J1644 PER 1000UNITS) SC SCH ×2 (16:56→21:06)
--- NOTE | 2019-05-11 17:27 | HPEPDOC ---
[employer]odge Officer Note DATE OF ADMISSION: 05-11-19 DATE OF SERVICE: 05-11-19 TIME OF ADMISSION: Please refer to physician's admission order. SOURCE OF ADMISSION INFORMATION: [facility] record and patient CHIEF COMPLAINT: encephalopathy HISTORY OF PRESENT ILLNESS: 78M pmh HTN with ESRD on PD, s/p bilateral nephrectomies for renal cancer, chronic systolic/diastolic CHF, HTN, CAD, hx of prostate cancer s/p prostatectomy who presented to [facility] ED on 05-01-18 with encephalopathy and found to have a left 1st toe digit ulcer. He was started on IV antibiotics and evaluated by vascular surgery. He eventually underwent an angiogram on 05-09-19 showing patent sfa profunda and popliteal. two vessel run off into foot. Scattered atherosclerotic disease especially involving anterior tibial artery. He was followed by renal who managed his ESRD and switched him from peritoneal to hemodialysis. In the setting of persistent confusion MRI and CT brain were ordered, but both negative for infarct or hemorrhage to explain his altered mentation. MRI of his toe showed, Soft-tissue swelling about the great toe pa rticularly medial and volar aspect. There is marrow edema pattern in the distal phalanx of the great toe but no cortical disruption or low T1 signal intensity. No definite osteomyelitis. He was taken off antibiotics given no concern for osteomyelitis, evaluated by therapy where he was found to below his prior level of function and deemed medically appropriate for discharge to ARU on 05-11-19 REVIEW OF SYSTEMS: The following is a completed review of systems and has been reviewed. Review of systems otherwise unremarkable. PAIN: Patient self reports left toe pain EYES: No recent vision changes EARS, NOSE, & THROAT: No throat pain, or dysphagia, or rhinorrhea CARDIOVASCULAR: Denies chest pain or palpitations PULMONARY: Denies shortness of breath GASTROINTESTINAL: Denies constipation/diarrhea GENITOURINARY: +anuric MUSCULOSKELETAL: generalized weakness NEUROLOGICAL: +intermittent confusion HEMATOLOGICAL: denies easy bruising SKIN: denies rash PSYCHIATRIC: Unremarkable All other review of systems found to be negative. PAST MEDICAL HISTORY: as per HPI PAST SURGICAL HISTORY: as per HPI ALLERGIES: Please see below. MEDICATIONS: Please see below. FAMILY HISTORY: Stomach cancer, CAD SOCIAL HISTORY: Former smoker, no etoh/illicit drugs DIET: low sodium, fluid restrict PHYSICAL EXAMINATION: VITAL SIGNS: Please see below. GENERAL: Pleasant and cooperative. No acute distress. HEENT: PERRL. Extraocular movements intact. Clear conjunctiva CARDIOVASCULAR: Regular rate and rhythm. +systolic murmurs, no rubs, or gallops LUNGS: Clear to auscultation bilaterally. No wheezes. No rhonchi ABDOMEN: Soft, nontender, nondistended. Positive bowel sounds. Normal active bowel sounds NEUROLOGICAL: Alert and oriented to person, place, not time, Cranial nerves II through XII grossly intact. Sensation grossly intact in all 4 limbs EXTREMITIES: 5\5 strength bilateral upper extremities. 4+\5 strength right lower extremity.4+/5 strength in left lower extremity except 3/5 ankle Df and 2/5 EHL SKIN: right chest wall permacath, left toe D1 with minimal swelling, no notable erythema or drainage, tip of toe appearing necrotic, nail bed does not appear infected LABORATORY DATA: Please see below. IMAGING:Imaging documentation personally reviewed by record FUNCTIONAL STATUS: Premorbid: Independent with all activities of daily life as well as mobility On Admission: Contact-guard to minimum assist for ambulation, functional transfers, dressing, toileting, bed mobility GOALS: Mod-I with RW or cane functional transfers, ambulation, toileting, dressing, bathing, wound care, medical optimization ASSESSMENT:79-year-old M with past medical history of ESRD who presents status post encephalopathy in the setting of like uremia. PLAN: 1. Rehab-PT/OT advance gait training and ADl management, dynamic balance training, strengthen/stretch/maintain ROM bilat UE and LE -will defer EXECUTIVE PERSONAL ASSISTANT until Tuesday for cognitive eval 2. Neuro: patient admitted with encephalopathy, etiology possibly due to uremia in setting of ESRD continuing to affect his mobility and ADL management 3.Cardiac: HTN c/u clonidine patch, losartan, isosorbide mononitrate -CAD c/u ASa and metoprolol- medicine consulted to assist in management -chronic systolic/diastolic CHF- daily weights, fluid restrict 4. Resp: encourage incentive spirometry and monitor for infection, Duonebs 5. Renal: s/p bilat nepgrectomies on PD at home, now on HD- renal consulted to assist in overall management -c/u Sevelamer, Cinacalcet, Calcium Acetate 6. GI ppx: omeprazole, bowel regimen to prevent constipation 7. DVT ppx: heparin 8. Pain: will trial Pamelor 10mg qHS for left toe pain and monitor for AMS while on this med, cautious with oxycodone 2.5mg q6h prn, c/u Tylenol 1000mg TID 9. Dispo: TBD POST ADMISSION PHYSICIAN EVALUATION: Medical and functional status: Description of medical status, medical assessment: As above. Rehabilitation diagnosis and current and prior cold morbid medical conditions as above. Risk of complications and plans to mitigate them as above. Description of functional status current status is as above. Prior status as above. Status compared to preadmission: There are no clinically significant differences between the patient's current status and the information described on the preadmission screening document. Treatment plan anticipated: Treatment plan is as described above. Required disciplines including physical therapy, occupational therapy, others as noted above. Intensity of services: 3 hours a day, 6 days a week. Special considerations: There are no specific special or safety considerations that would likely preclude immediate implementation of an intensive rehabilitation program or subsequently influence the plan of care. ATTESTATION: Considering all the information above, it is my best judgment that this patient requires intensive rehabilitation therapy as described above and an inpatient hospital environment due to the complexity of nursing, medical, and rehabilitation needs required by the patient. Furthermore, this patient can reasonably be expected to participate in an benefit from an inpatient rehabilitation stay with an interdisciplinary team approach to the delivery of rehabilitation care under the direction and supervision of rehabilitation physician. PROGNOSIS: Good ESTIMATED LENGTH OF STAY:14-18 days. PROJECTED DISCHARGE DESTINATION: Home with family support and any durable medical equipment required to increase functional safety and mobility. TIME SPENT COUNSELING AND COORDINATING INITIAL CARE: Greater than 70 minutes. Vital Signs Vital Sign - Last 24 Hours 05/11/19 13:45 Temp 97.7 Pulse 66 Resp 18 B/P (MAP) 146/70 (95) Pulse Ox 99 O2 Delivery Room Air Home Medications Scheduled Aspirin (Aspir 81) 81 Mg Tab, 81 MG PO DAILY, (Reported) Calcium Acetate (Calcium Acetate) 667 Mg Cap, 667 MG PO WM, (Reported) Cholecalciferol (Vitamin D3) (Vitamin D3) 1,000 Unit Capsule, 2,000 UNIT PO DAILY, (Reported) Cinacalcet (Sensipar) 30 Mg Tab, 60 MG PO DAILY, (Reported) Clonidine (Clonidine) 0.1 Mg Patch.tdwk, 1 EA TOP We@0900 Epoetin Irving (Procrit) 20,000 Unit/1 Ml Vial, 20,000 UNIT SC 1XWK, (Reported) MONDAYS Isosorbide Mononitrate (Isosorbide Mononitrate ER) 60 Mg Tab.er.24h, 60 MG PO DAILY, (Reported) Losartan Potassium (Cozaar) 50 Mg Tablet, 50 MG PO QHS Metoprolol Succinate (Metoprolol Succinate) 100 Mg Tab.er.24h, 100 MG PO QHS, (Reported) Multivitamins (Thera M Plus Tablet) 1 Tab Tab, 1 TAB PO DAILY, (Reported) Omeprazole (Omeprazole) 20 Mg Cap, 20 MG PO DAILY, (Reported) Paricalcitol (Paricalcitol) 1 Mcg Capsule, 2 CAP PO QAM, (Reported) Potassium Chloride (Potassium Chloride) 20 Meq Tab.er.prt, 20 MEQ PO DAILY, (Reported) Sevelamer Carbonate (Renvela) 800 Mg Tablet, 800 MG PO WM, (Reported) Scheduled PRN Acetaminophen (Acetaminophen) 325 Mg Tablet, 650 MG PO Q4H PRN for PAIN OR FEVER Albuterol Sulfate (Proventil Hfa) 6.7 Gm Hfa.aer.ad, 2 PUFF INH QID PRN for SOB/WHEEZING, (Reported) Allopurinol (Allopurinol) 100 Mg Tablet, 100 MG PO DAILY PRN for GOUT FLARE UPS, (Reported) Aluminum/Magnesium/Simeth (Mag-Al Plus Suspension) 30 Ml Oral.susp, 30 ML PO DAILY PRN for DYSPEPSIA Docusate Sodium (Docusate Sodium) 100 Mg Capsule, 100 MG PO Q12HP PRN for CONSTIPATION Febuxostat (Uloric) 40 Mg Tab, 40 MG PO DAILY PRN for GOUT FLARE UPS, (Reported) Ipratropium/Albuterol Sulfate (Iprat-Albut 0.5-3(2.5) mg/3 ml) 3 Ml Ampul.neb, 3 ML NEB Q8HP PRN for SOB/WHEEZING Oxycodone HCl (Oxycodone HCl) 5 Mg Tablet, 5 MG PO Q6HP PRN for PAIN LEVEL 6-10 Allergies Coded Allergies: amlodipine (Verified Allergy, Unknown, 05/01/19) indomethacin (Verified Allergy, Unknown, 05/01/19) nifedipine (Verified Allergy, Unknown, 05/01/19) hydralazine (Verified Adverse Reaction, Mild, ELEVATED BP, 05/01/19) A-FIB/CHADSVASC A-FIB History Current/History of A-Fib/PAF?: No JEFFERY CANTU MD May 11, 2019 17:27
[2019-05-11] MEDS: (RENVELA) SEVELAMER **CARBONate** 800 MG TAB PO SCH (18:05)
[2019-05-11] MEDS: CALCIUM ACETATE 667 MG GELCAP PO SCH (18:05)
[2019-05-11] MEDS: oxyCODONE 5MG TAB PO PRN (18:41)
[2019-05-11 20:30] VITALS: BP 145/92
[2019-05-11] MEDS ORDERED: NITROGLYCERIN 2% OINT 1 GM *U/D* PKT TOP SCH (21:00)
[2019-05-11] MEDS: DOCUSATE SODIUM 100 MG CAP PO SCH (21:00)
[2019-05-11] MEDS: NORTRIPTYLINE 10 MG CAP PO SCH (21:07)
[2019-05-11] MEDS: METOPROLOL SUCC (TopROL XL) 100MG *XL* TAB PO SCH (21:07)
[2019-05-11] MEDS: ACETAMINOPHEN 500 MG TAB PO SCH (21:07)
[2019-05-11] MEDS: MUPIROCIN 2% OINT 22 GM TUBE TOP SCH (21:08)
[2019-05-11] MEDS: SENNA 8.6 MG TAB (SENOKOT) PO SCH (21:08)
[2019-05-11] MEDS: LOSARTAN 50 MG TAB PO SCH (21:11)
[2019-05-12 06:30] VITALS: BP 168/82
[2019-05-12] MEDS: HEPARIN SOD (PORCINE) 5000 UNITS/ML VIAL (J1644 PER 1000UNITS) SC SCH ×3 (06:52→21:56)
[2019-05-12 07:42] LABS: BASO % 0.6 % (0.0-1.0); EOS # 0.7 10^3/uL (0.0-0.5); EOS % 13.7 % (0.0-3.0); HEMATOCRIT 26.7 % (42.0-52.0); LYMPH # 1.6 10^3/uL (1.5-5.0); LYMPH % 32.1 % (24.0-44.0); MEAN CORPUSCULAR HEMOGLOBIN 32.8 pg (27.0-33.0); MEAN CORPUSCULAR HGB CONC 33.7 g/dl (32.0-36.5); MEAN CORPUSCULAR VOLUME 97.4 fl (80.0-96.0); MONO # 0.5 10^3/uL (0.0-0.8); MONO % 10.4 % (0.0-5.0); NEUTROPHILS # 2.1 10^3/uL (1.5-8.5); PLATELET COUNT, AUTOMATED 159 10^3/uL (150-450); RED BLOOD COUNT 2.74 10^6/uL (4.30-6.10)
[2019-05-12 08:06] LABS: ALBUMIN 2.6 GM/DL (3.2-5.2); BILIRUBIN,TOTAL 0.4 MG/DL (0.2-1.0); CALCIUM LEVEL 9.5 MG/DL (8.8-10.2); CREATININE FOR GFR 7.56 MG/DL (0.70-1.30); GLOMERULAR FILTRATION RATE 9.1 (>42); POTASSIUM SERUM 4.3 MEQ/L (3.5-5.1); TOTAL PROTEIN 5.1 GM/DL (6.4-8.2)
[2019-05-12] MEDS: IPRATROPIUM 0.5MG/ALBUTEROL 2.5MG INH SOL UD 3ML (DUONEB)(J7620) NEB SCH ×3 (08:44→19:33)
[2019-05-12] MEDS: REMEDY PHYTOPLEX Z-GUARD PASTE 113GM TUBE (FROM STOREROOM PRODUCT) TOP SCH ×3 (09:00→21:00)
[2019-05-12] MEDS ORDERED: PARICALCITOL PO SCH (09:00)
[2019-05-12] MEDS: CALCIUM ACETATE 667 MG GELCAP PO SCH ×3 (10:07→17:58)
[2019-05-12] MEDS: ACETAMINOPHEN 500 MG TAB PO SCH ×3 (10:07→21:00)
[2019-05-12] MEDS: CINACALCET 30 MG TAB (SENSIPAR) PO SCH (10:07)
[2019-05-12] MEDS: ISOSORBIDE MON. (IMDUR) 60 MG XR TAB PO SCH (10:07)
[2019-05-12] MEDS: ASPIRIN 81 MG ENTERIC TAB PO SCH (10:07)
[2019-05-12] MEDS: OMEPRAZOLE 20 MG CAP PO SCH (10:07)
[2019-05-12] MEDS: DOCUSATE SODIUM 100 MG CAP PO SCH ×2 (10:08→20:03)
[2019-05-12] MEDS: MULTIVITAMINS/MINERALS THERAP 1 TAB PO SCH (10:08)
[2019-05-12] MEDS: VITAMIN D 1,000 INTERNATIONAL UNITS TABLET PO SCH (10:08)
[2019-05-12] MEDS: POTASSIUM CHLORIDE 10 MEQ SR TABLET PO SCH (10:08)
[2019-05-12] MEDS: (RENVELA) SEVELAMER **CARBONate** 800 MG TAB PO SCH ×3 (10:08→17:58)
[2019-05-12] MEDS ORDERED: HEPARIN 1,000 UNITS/ML 10ML VIAL (FOR RADIOLOGY& DIALYSIS ONLY)(J1644-10) IV ONE (11:15)
[2019-05-12] MEDS ORDERED: HEPARIN 1,000 UNITS/ML 10ML VIAL (FOR RADIOLOGY& DIALYSIS ONLY)(J1644-10) XX ONE (11:15)
[2019-05-12] MEDS: MUPIROCIN 2% OINT 22 GM TUBE TOP SCH ×2 (17:59→21:00)
[2019-05-12 20:00] VITALS: BP 186/86
[2019-05-12] MEDS: NORTRIPTYLINE 10 MG CAP PO SCH (20:01)
[2019-05-12] MEDS: oxyCODONE 5MG TAB PO PRN (20:01)
[2019-05-12] MEDS: LOSARTAN 50 MG TAB PO SCH (20:02)
[2019-05-12] MEDS: METOPROLOL SUCC (TopROL XL) 100MG *XL* TAB PO SCH (20:02)
[2019-05-12] MEDS: SENNA 8.6 MG TAB (SENOKOT) PO SCH (20:03)
[2019-05-12 21:00] VITALS: BP 198/92
[2019-05-12] MEDS ORDERED: cloNIDine 0.1 MG TAB PO ONE (21:45)
[2019-05-12 21:55] VITALS: BP 180/78
[2019-05-12 22:28] VITALS: BP 152/78
[2019-05-12] MEDS ORDERED: DARBEPOETIN 100 MCG/0.5 ML *DIALYSIS* SYRINGE (J0882) IV SCH (23:45)
[2019-05-13] MEDS: HEPARIN SOD (PORCINE) 5000 UNITS/ML VIAL (J1644 PER 1000UNITS) SC SCH ×3 (06:04→20:59)
[2019-05-13] MEDS: oxyCODONE 5MG TAB PO PRN ×2 (06:18→21:05)
[2019-05-13 06:23] VITALS: BP 170/78
[2019-05-13] MEDS: IPRATROPIUM 0.5MG/ALBUTEROL 2.5MG INH SOL UD 3ML (DUONEB)(J7620) NEB SCH ×4 (07:56→19:26)
[2019-05-13] MEDS: CALCIUM ACETATE 667 MG GELCAP PO SCH ×5 (08:00→16:59)
--- NOTE | 2019-05-13 08:01 | IPN ---
DATE: 05/12/2019 SUBJECTIVE: The patient was seen and examined at the bedside today morning in the rehab unit. He still complains of pain in the big toe; otherwise he reports that he is feeling much better after starting hemodialysis. The patient is going to have another dialysis in the afternoon today. He is afebrile and hemodynamically stable. OBJECTIVE: Vital signs: Temperature is 97.7 degrees Fahrenheit, blood pressure is 186/86, pulse is 65, respiratory rate of 18, saturating 100% on room air. Intake and output: There is no urine output recorded, weight in the bed scale is 83.2 kg. PHYSICAL EXAMINATION: General: The patient is awake, alert, oriented times three, sitting up on the sofa in no apparent distress. Head and neck exam: Extraocular muscles intact. Pupils equally round and reactive to light. Mucous membranes are moist. Neck is supple. He has a left IJ tunneled hemodialysis catheter. Cardiovascular: S1, S2, regular rate. No edema of the bilateral lower extremities. Respiratory: Chest is clear to auscultation bilaterally. Bilateral equal air entry. No rales or rhonchi. Abdomen: Soft, positive bowel sounds. Peritoneal dialysis catheter exit site is clean. Musculoskeletal: The patient has a tender big toe. Central nervous system (WEB CONTENT DIRECTOR): No focal deficit. Power is 5/5 in all extremities. LAB REVIEW: CBC showed a WBC of 5, hemoglobin 9. BMP showed sodium 139, potassium 4.3, chloride 103, bicarbonate 30, BUN 15, creatinine is 7.5. IMAGING STUDIES: MRI of the foot was done yesterday which was negative for osteomyelitis in the left foot. CURRENT INPATIENT MEDICATIONS: The patient's medications were all reviewed by me. There is no change in the medications today as compared with yesterday. ASSESSMENT/PLAN: 1. End-stage renal disease, on hemodialysis. The patient will be dialyzed in the afternoon today. Ultrafiltration goal will be around 1.5 liters as tolerated by his blood pressure. 2. Anemia secondary to end-stage renal disease. I have started the patient on Aranesp 200 mcg IV with hemodialysis. 3. Hypertension. The patient has labile blood pressures. Continue current antihypertensive regimen of clonidine patch 0.1 mg every 24 hours, isosorbide 120 mg by mouth daily, losartan 50 mg by mouth daily, metoprolol XL 100 mg nightly. 4. Secondary hyperparathyroidism. Continue current dose of Sensipar 30 mg by mouth daily.
[2019-05-13] MEDS: ACETAMINOPHEN 500 MG TAB PO SCH ×3 (08:59→21:08)
[2019-05-13] MEDS: ASPIRIN 81 MG ENTERIC TAB PO SCH (08:59)
[2019-05-13] MEDS: (RENVELA) SEVELAMER **CARBONate** 800 MG TAB PO SCH ×3 (08:59→16:56)
[2019-05-13] MEDS: DOCUSATE SODIUM 100 MG CAP PO SCH ×2 (08:59→21:08)
[2019-05-13] MEDS: VITAMIN D 1,000 INTERNATIONAL UNITS TABLET PO SCH (08:59)
[2019-05-13] MEDS: POTASSIUM CHLORIDE 10 MEQ SR TABLET PO SCH (08:59)
[2019-05-13] MEDS: OMEPRAZOLE 20 MG CAP PO SCH (08:59)
[2019-05-13] MEDS: MULTIVITAMINS/MINERALS THERAP 1 TAB PO SCH (08:59)
[2019-05-13] MEDS: CINACALCET 30 MG TAB (SENSIPAR) PO SCH (09:00)
[2019-05-13] MEDS: REMEDY PHYTOPLEX Z-GUARD PASTE 113GM TUBE (FROM STOREROOM PRODUCT) TOP SCH ×3 (09:00→21:00)
[2019-05-13] MEDS: MUPIROCIN 2% OINT 22 GM TUBE TOP SCH ×2 (09:55→21:33)
[2019-05-13] MEDS: ISOSORBIDE MON. (IMDUR) 60 MG XR TAB PO SCH (10:28)
[2019-05-13 14:00] VITALS: BP 192/87
--- NOTE | 2019-05-13 19:39 | IPN ---
DATE: 05/13/2019 SUBJECTIVE: Patient was seen and examined at the bedside today morning. He is afebrile, hemodynamically stable. He reports mild edema in the bilateral upper extremities, left is worse than right. He still reports mild persistent pain in the left big toe. Otherwise denies any active complaints. OBJECTIVE: VITAL SIGNS: Temperature is 97.5 degrees Fahrenheit, blood pressure 192/87, pulse is 61, respiratory rate of 18, saturating 99% on room air. INTAKE AND OUTPUT: Ultrafiltration done during hemodialysis yesterday was only 1.5 liters. Weight in the bed scale is 86 kg. PHYSICAL EXAMINATION GENERAL: Patient is awake, alert, oriented times three, sitting up in the sofa, no apparent distress. HEAD AND NECK EXAM: Extraocular muscles intact. Pupils equally round and reactive to light. Mucous membranes are moist. Neck is supple. He has a left internal jugular (IJ) hemodialysis catheter. CARDIOVASCULAR: S1, S2. Regular rate. Trace edema of the bilateral lower extremities. RESPIRATORY: Chest is clear to auscultation bilaterally. Bilateral equal air entry. No rales or rhonchi. ABDOMEN: Soft, positive bowel sounds. Nontender. No organomegaly. MUSCULOSKELETAL: He has 1+ edema of the left upper extremity and trace edema of the right upper extremity. CENTRAL NERVOUS SYSTEM (PLANT OPERATOR): No focal deficit power is 5/5 in all extremities. LABORATORY REVIEW: Complete blood count (CBC) is from yesterday and basic metabolic panel (BMP) is also from yesterday. CURRENT INPATIENT MEDICATIONS: Patient's medications were all reviewed by me. There is no change in the medications today as compared with yesterday. ASSESSMENT/PLAN: 1. End-stage renal disease. Patient is currently getting hemodialysis and tomorrow. I will try to do ultrafiltration on him to help improve his edema and blood pressures if we have an opening in the dialysis schedule. 2. Anemia in end-stage renal disease. Continue current dose of Aranesp 200 mcg IV with hemodialysis. 3. Hypertension with end-stage renal disease. Patient still has elevated blood pressures. Continue current dose of isosorbide, losartan, metoprolol and clonidine patch. Further dose adjustment will be done after ultrafiltration. 4. Left big toe pain. Continue the pain optimization as per primary team. Higher dose of opioids make him very drowsy.
[2019-05-13 20:00] VITALS: BP 180/73
[2019-05-13] MEDS: NORTRIPTYLINE 10 MG CAP PO SCH (20:59)
[2019-05-13 21:00] VITALS: BP 158/80
[2019-05-13] MEDS: SENNA 8.6 MG TAB (SENOKOT) PO SCH (21:08)
[2019-05-13] MEDS: METOPROLOL SUCC (TopROL XL) 100MG *XL* TAB PO SCH (21:08)
[2019-05-13] MEDS: LOSARTAN 50 MG TAB PO SCH (21:09)
[2019-05-14] MEDS: HEPARIN SOD (PORCINE) 5000 UNITS/ML VIAL (J1644 PER 1000UNITS) SC SCH ×3 (05:49→20:34)
[2019-05-14 06:01] VITALS: BP 150/90
[2019-05-14 06:39] LABS: BASO % 0.6 % (0.0-1.0); EOS # 0.8 10^3/uL (0.0-0.5); EOS % 15.7 % (0.0-3.0); HEMATOCRIT 26.8 % (42.0-52.0); HEMOGLOBIN 9.1 g/dl (13.5-17.5); LYMPH # 1.1 10^3/uL (1.5-5.0); LYMPH % 22.9 % (24.0-44.0); MEAN CORPUSCULAR VOLUME 97.1 fl (80.0-96.0); MONO # 0.6 10^3/uL (0.0-0.8); MONO % 11.3 % (0.0-5.0); NEUTROPHILS # 2.4 10^3/uL (1.5-8.5); NEUTROPHILS % 49.3 % (36.0-66.0); PLATELET COUNT, AUTOMATED 161 10^3/uL (150-450); RED BLOOD COUNT 2.76 10^6/uL (4.30-6.10); WHITE BLOOD COUNT 4.9 10^3/uL (4.0-10.0)
[2019-05-14 06:53] LABS: CALCIUM LEVEL 9.6 MG/DL (8.8-10.2); CREATININE FOR GFR 6.97 MG/DL (0.70-1.30); GLOMERULAR FILTRATION RATE 9.9 (>42); POTASSIUM SERUM 5.2 MEQ/L (3.5-5.1)
[2019-05-14] MEDS: IPRATROPIUM 0.5MG/ALBUTEROL 2.5MG INH SOL UD 3ML (DUONEB)(J7620) NEB SCH ×3 (07:22→19:54)
[2019-05-14] MEDS: VITAMIN D 1,000 INTERNATIONAL UNITS TABLET PO SCH (07:40)
[2019-05-14] MEDS: ASPIRIN 81 MG ENTERIC TAB PO SCH (07:40)
[2019-05-14] MEDS: OMEPRAZOLE 20 MG CAP PO SCH (07:40)
[2019-05-14] MEDS: MULTIVITAMINS/MINERALS THERAP 1 TAB PO SCH (07:40)
[2019-05-14] MEDS: (RENVELA) SEVELAMER **CARBONate** 800 MG TAB PO SCH ×3 (07:41→17:13)
[2019-05-14] MEDS: ISOSORBIDE MON. (IMDUR) 60 MG XR TAB PO SCH (07:41)
[2019-05-14] MEDS: CINACALCET 30 MG TAB (SENSIPAR) PO SCH (07:41)
[2019-05-14] MEDS: DOCUSATE SODIUM 100 MG CAP PO SCH ×2 (07:41→20:34)
[2019-05-14] MEDS: ACETAMINOPHEN 500 MG TAB PO SCH ×3 (07:41→20:34)
[2019-05-14] MEDS: MUPIROCIN 2% OINT 22 GM TUBE TOP SCH ×2 (07:42→20:35)
[2019-05-14] MEDS: POTASSIUM CHLORIDE 10 MEQ SR TABLET PO SCH (07:42)
[2019-05-14] MEDS: CALCIUM ACETATE 667 MG GELCAP PO SCH ×3 (08:10→17:13)
[2019-05-14] MEDS: oxyCODONE 5MG TAB PO PRN (08:15)
[2019-05-14] MEDS: REMEDY PHYTOPLEX Z-GUARD PASTE 113GM TUBE (FROM STOREROOM PRODUCT) TOP SCH ×3 (09:00→20:56)
[2019-05-14] MEDS ORDERED: HEPARIN 1,000 UNITS/ML 10ML VIAL (FOR RADIOLOGY& DIALYSIS ONLY)(J1644-10) XX ONE (10:30)
[2019-05-14] MEDS ORDERED: HEPARIN 1,000 UNITS/ML 10ML VIAL (FOR RADIOLOGY& DIALYSIS ONLY)(J1644-10) IV ONE (10:30)
[2019-05-14] MEDS ORDERED: PATIROMER SORBITEX CALCIUM 8.4 GM POWDER PACKET (VELTASSA) PO ONE (12:00)
--- NOTE | 2019-05-14 12:00 | IPNPDOC ---
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 He reports a dry cough and that his toe pain is slightly better since starting Pamelor. REVIEW OF SYSTEMS: The following is a completed review of systems and has been reviewed. Review of systems otherwise unremarkable. PAIN: Patient self reports left toe pain EYES: No recent vision changes EARS, NOSE, & THROAT: No throat pain, or dysphagia, or rhinorrhea CARDIOVASCULAR: Denies chest pain or palpitations PULMONARY: Denies shortness of breath GASTROINTESTINAL: Denies constipation/diarrhea GENITOURINARY: +anuric MUSCULOSKELETAL: generalized weakness NEUROLOGICAL: +intermittent confusion HEMATOLOGICAL: denies easy bruising SKIN: denies rash PSYCHIATRIC: Unremarkable All other review of systems found to be negative. PHYSICAL EXAMINATION: VITAL SIGNS: Please see below. GENERAL: Pleasant and cooperative. No acute distress. HEENT: PERRL. Extraocular movements intact. Clear conjunctiva CARDIOVASCULAR: Regular rate and rhythm. +systolic murmurs, no rubs, or gallops LUNGS: Clear to auscultation bilaterally. No wheezes. No rhonchi ABDOMEN: Soft, nontender, nondistended. Positive bowel sounds. Normal active bowel sounds NEUROLOGICAL: Alert and oriented to person, place, not time, Cranial nerves II through XII grossly intact. Sensation grossly intact in all 4 limbs EXTREMITIES: 5\5 strength bilateral upper extremities. 4+\5 strength right lower extremity.4+/5 strength in left lower extremity except 3/5 ankle Df and 2/5 EHL SKIN: left chest wall permacath, left toe D1 with minimal swelling, no notable erythema or drainage, tip of toe appearing necrotic, nail bed does not appear infected ASSESSMENT:79-year-old M with past medical history of ESRD who presents status post encephalopathy in the setting of like uremia. PLAN: 1. Rehab-PT/OT advance gait training and ADl management, dynamic balance training, strengthen/stretch/maintain ROM bilat UE and LE - DRY PLASTERER for cognitive eval 2. Neuro: patient admitted with encephalopathy, etiology possibly due to uremia in setting of ESRD continuing to affect his mobility and ADL management -per nursing and therapy staff patient was lucid over the weekend, however today he appears more confused and is getting extra dialysis 3.Cardiac: HTN c/u clonidine patch, losartan, isosorbide mononitrate -CAD c/u ASa and metoprolol- medicine consulted to assist in management -chronic systolic/diastolic CHF- daily weights, fluid restrict 4. Resp: encourage incentive spirometry and monitor for infection, Duonebs ordered- patient with dry cough, will discuss the possibility of changing ARB to alternative BP med with renal as this may contributing to his cough 5. Renal: s/p bilat nephrectomies on PD at home, now on HD- renal consulted to assist in overall management -c/u Sevelamer, Cinacalcet, Calcium Acetate 6. GI ppx: omeprazole, bowel regimen to prevent constipation 7. DVT ppx: heparin 8. Pain: c/u Pamelor 10mg qHS for left toe pain and monitor for AMS while on this med, cautious with oxycodone 2.5mg q6h prn, c/u Tylenol 1000mg TID 9. Dispo: TBD Allergies Coded Allergies: amlodipine (Verified Allergy, Unknown, 05/01/19) indomethacin (Verified Allergy, Unknown, 05/01/19) nifedipine (Verified Allergy, Unknown, 05/01/19) hydralazine (Verified Adverse Reaction, Mild, ELEVATED BP, 05/01/19) Vital Signs Vital Signs Date Time Temp Pulse Resp B/P (MAP) Pulse Ox O2 Delivery O2 Flow Rate FiO2 05/14/19 08:45 18 05/14/19 08:15 Room Air 05/14/19 07:41 150/90 05/14/19 06:00 97.9 63 99 Laboratory Data CBC/BMP Laboratory Tests 05/14/19 06:19 Labs 24H Laboratory Tests 2 05/14/19 06:19: Immature Granulocyte % (Auto) 0.2, Neutrophils (%) (Auto) 49.3, Lymphocytes (%) (Auto) 22.9L, Monocytes (%) (Auto) 11.3H, Eosinophils (%) (Auto) 15.7H, Basophils (%) (Auto) 0.6, Neutrophils # (Auto) 2.4, Lymphocytes # (Auto) 1.1L, Monocytes # (Auto) 0.6, Eosinophils # (Auto) 0.8H, Basophils # (Auto) 0.0, Nucleated Red Blood Cells % (auto) 0.0, Anion Gap 6L, Glomerular Filtration Rate 9.9L, Calcium Level 9.6 Current Medications Current Medications Current Medications Medications (Trade) Dose Ordered Sig/Damien Route PRN Reason Start Time Stop Time Status Last Admin Dose Admin Acetaminophen (Tylenol Tab) 650 mg Q4HP PRN PO fever/MILD PAIN (PS 1-4) 05/11/19 14:15 05/11/19 17:22 DC Acetaminophen (Tylenol Tab) 1,000 mg TID PO 05/11/19 21:00 05/14/19 07:41 Albuterol/ Ipratropium (Duoneb (Ipr 0.5mg/Alb 2.5mg)) 3 ml Q2HP PRN NEB SOB/WHEEZING 05/14/19 10:00 Albuterol/ Ipratropium (Duoneb (Ipr 0.5mg/Alb 2.5mg)) 3 ml RTID NEB 05/14/19 14:00 Albuterol/ Ipratropium (Duoneb (Ipr 0.5mg/Alb 2.5mg)) 3 ml TID NEB 05/11/19 16:00 05/14/19 10:00 DC 05/14/19 07:22 Aspirin (Ecotrin) 81 mg DAILY PO 05/12/19 09:00 05/14/19 07:40 Calcium Acetate (Phoslo) 667 mg WM PO 05/11/19 18:00 05/14/19 08:10 Cinacalcet (Sensipar) 30 mg DAILY PO 05/12/19 09:00 05/14/19 07:41 Clonidine HCl (Aojnbfjn-Srb-5) 1 ea We@09 [facility] 05/16/19 09:00 Darbepoetin Irving (Aranesp (Dialysis Use)) 200 mcg HD IV 05/12/19 23:45 Docusate Sodium (Colace) 100 mg BID PO 05/11/19 21:00 05/14/19 07:41 Heparin Sodium (Porcine) (Heparin) 5,000 units Q8H SC 05/11/19 14:00 05/14/19 05:49 Isosorbide Mononitrate (Imdur) 120 mg DAILY PO 05/12/19 09:00 05/14/19 07:41 Losartan Potassium (Cozaar) 50 mg QHS PO 05/11/19 21:00 05/13/19 21:09 Magnesium Hydroxide (Milk Of Magnesia) 30 ml DAILYPRN PRN PO CONSTIPATION 05/11/19 14:15 Metoprolol Succinate (TopROL XL) 100 mg QHS PO 05/11/19 21:00 05/13/19 21:08 Multivitamins (Theragram-M) 1 tab DAILY PO 05/12/19 09:00 05/14/19 07:40 Mupirocin (Bactroban 2% Ointment) apply to top of nail ... BID TOP 05/11/19 21:00 05/14/19 07:42 Nitroglycerin (Nitrobid 2%) 1 gm BID TOP 05/11/19 21:00 05/11/19 17:43 DC Nitroglycerin (Nitrostat (1/ 150)) 0.4 mg Q5MP PRN SL CHEST PAIN 05/11/19 14:15 Nortriptyline HCl (Pamelor) 10 mg QHS PO 05/11/19 21:00 05/13/19 20:59 Omeprazole (PriLOSEC) 20 mg DAILY PO 05/12/19 09:00 05/14/19 07:40 Oxycodone HCl (Roxicodone, Oxyir) 2.5 mg Q6HP PRN PO PAIN 05/11/19 18:30 05/14/19 08:15 Oxycodone HCl (Roxicodone, Oxyir) 2.5 mg Q8H PRN PO PAIN 05/11/19 17:30 05/11/19 18:17 DC Oxycodone HCl (Roxicodone, Oxyir) 5 mg Q6HP PRN PO PAIN 05/11/19 14:15 05/11/19 17:22 DC Patient Own Medication (Patient'S Own Med) paricalcitol 1mcg tab- take 2 t... DAILY PO 05/12/19 09:00 05/11/19 15:42 DC Potassium Chloride (Micro-K Extencaps) 20 meq DAILY PO 05/11/19 09:00 05/14/19 09:26 DC 05/14/19 07:42 Senna (Senokot) 1 tab QHS PO 05/11/19 21:00 05/13/19 21:08 Sevelamer Carbonate (Renvela) 800 mg WM PO 05/11/19 18:00 05/14/19 07:41 Vitamin D (Vitamin D) 2,000 units DAILY PO 05/11/19 09:00 05/14/19 07:40 JEFFERY CANTU MD May 14, 2019 12:00
[2019-05-14 14:00] VITALS: BP 198/93
[2019-05-14 16:48] VITALS: BP 178/94
[2019-05-14 19:55] VITALS: BP 172/90
[2019-05-14] MEDS: NORTRIPTYLINE 10 MG CAP PO SCH (20:34)
[2019-05-14] MEDS: SENNA 8.6 MG TAB (SENOKOT) PO SCH (20:35)
[2019-05-14] MEDS: METOPROLOL SUCC (TopROL XL) 100MG *XL* TAB PO SCH (20:35)
[2019-05-14] MEDS: LOSARTAN 50 MG TAB PO SCH (20:35)
[2019-05-15] MEDS: HEPARIN SOD (PORCINE) 5000 UNITS/ML VIAL (J1644 PER 1000UNITS) SC SCH ×3 (06:19→20:25)
[2019-05-15 06:21] VITALS: BP 178/96
[2019-05-15 06:58] LABS: BASO % 0.5 % (0.0-1.0); EOS # 0.8 10^3/uL (0.0-0.5); EOS % 13.5 % (0.0-3.0); HEMATOCRIT 29.3 % (42.0-52.0); HEMOGLOBIN 9.5 g/dl (13.5-17.5); LYMPH # 1.7 10^3/uL (1.5-5.0); LYMPH % 30.3 % (24.0-44.0); MEAN CORPUSCULAR HEMOGLOBIN 32.1 pg (27.0-33.0); MEAN CORPUSCULAR HGB CONC 32.4 g/dl (32.0-36.5); MONO # 0.7 10^3/uL (0.0-0.8); MONO % 11.9 % (0.0-5.0); NEUTROPHILS # 2.4 10^3/uL (1.5-8.5); NEUTROPHILS % 43.6 % (36.0-66.0); PLATELET COUNT, AUTOMATED 152 10^3/uL (150-450); RED BLOOD COUNT 2.96 10^6/uL (4.30-6.10); WHITE BLOOD COUNT 5.6 10^3/uL (4.0-10.0)
[2019-05-15 07:26] LABS: CALCIUM LEVEL 8.9 MG/DL (8.8-10.2); CREATININE FOR GFR 5.66 MG/DL (0.70-1.30); GLOMERULAR FILTRATION RATE 12.6 (>42); POTASSIUM SERUM 4.6 MEQ/L (3.5-5.1)
--- NOTE | 2019-05-15 07:36 | IPN ---
DATE OF SERVICE: 05/14/2019 SUBJECTIVE: The patient was seen and examined at the bedside today morning in the rehabilitation unit. He was doing exercise on the bike when I saw him. He still reports persistent upper extremity edema, left is worse than right. The patient is scheduled for a hemodialysis session in the afternoon today. OBJECTIVE: Vital signs: Temperature is 98.9 degrees Fahrenheit, blood pressure 172/90, pulse is 78, respiratory of 18, saturating 98% on room air. Intake and output - There is no urine output recorded. Weight in the bed scale is 89.5 kg. PHYSICAL EXAMINATION: General: The patient is awake, alert, oriented times three, sitting up. No apparent distress. Head and neck exam extraocular muscles intact. Pupils equally round and reactive to light. Mucous membranes are moist. Neck is supple. There is no jugular venous distention (JVD). Cardiovascular: S1, S2, regular rate, 1+ edema of the bilateral upper extremities, left is worse than the right and a trace edema of the bilateral lower extremities. Respiratory: Chest is clear to auscultation bilaterally. Bilateral equal air entry. No rales or rhonchi. Abdomen: Soft, positive bowel sounds. Nontender. He has a dialysis catheter in the abdomen. Musculoskeletal: The patient has tenderness in the left big toe otherwise he is able to move lower extremities. 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 Power is 5/5 in bilateral upper extremities. LAB REVIEW: CBC showed WBC 4.9, hemoglobin 9.1, platelets are 161. BMP showed sodium 136, potassium 5.2, chloride 101, bicarb 29, BUN 20, creatinine is 6.9, glucose 81, calcium is 9.6. CURRENT INPATIENT MEDICATIONS: The patient's medications were all reviewed by me. There is no significant change in the medications. I have stopped his oral potassium because he was receiving potassium while he was on peritoneal dialysis. He does not need any more potassium now while he is on hemodialysis. ASSESSMENT AND PLAN: 1. End-stage renal disease. The patient is getting hemodialysis at this time since he has signs of fluid overload and high blood pressure he will get an extra session of hemodialysis today. I will try to remove about 2.5 liters of fluid as tolerated by his blood pressure. 2. Anemia in end-stage renal disease. Continue current dose of Aranesp 200 mcg with dialysis, hemoglobin level is slowly improving. 3. Hypertension with end-stage renal disease. Blood pressures are still elevated. If his blood pressures do not get better after hemodialysis then his antihypertensive regimen will be changed. 4. Hyperkalemia. The patient was getting potassium chloride supplement since that time he was on peritoneal dialysis. I have stopped the oral potassium supplement now. He will be dialyzed with a 2 K bath which will help improve his potassium levels as well.
[2019-05-15] MEDS: IPRATROPIUM 0.5MG/ALBUTEROL 2.5MG INH SOL UD 3ML (DUONEB)(J7620) NEB SCH ×3 (08:00→18:20)
[2019-05-15] MEDS: CALCIUM ACETATE 667 MG GELCAP PO SCH ×3 (08:00→20:25)
[2019-05-15] MEDS ORDERED: CARVedilol 12.5 MG TAB PO SCH (08:00)
[2019-05-15] MEDS: (RENVELA) SEVELAMER **CARBONate** 800 MG TAB PO SCH ×3 (08:00→20:26)
[2019-05-15] MEDS: VITAMIN D 1,000 INTERNATIONAL UNITS TABLET PO SCH (08:53)
[2019-05-15] MEDS: DOCUSATE SODIUM 100 MG CAP PO SCH ×2 (08:54→20:25)
[2019-05-15] MEDS: ISOSORBIDE MON. (IMDUR) 60 MG XR TAB PO SCH (08:54)
[2019-05-15] MEDS: MULTIVITAMINS/MINERALS THERAP 1 TAB PO SCH (08:54)
[2019-05-15] MEDS: CINACALCET 30 MG TAB (SENSIPAR) PO SCH (08:54)
[2019-05-15] MEDS: ASPIRIN 81 MG ENTERIC TAB PO SCH (08:54)
[2019-05-15] MEDS: ACETAMINOPHEN 500 MG TAB PO SCH ×3 (08:55→20:26)
[2019-05-15] MEDS: OMEPRAZOLE 20 MG CAP PO SCH (08:56)
[2019-05-15] MEDS: MUPIROCIN 2% OINT 22 GM TUBE TOP SCH ×2 (08:57→20:36)
[2019-05-15] MEDS: REMEDY PHYTOPLEX Z-GUARD PASTE 113GM TUBE (FROM STOREROOM PRODUCT) TOP SCH ×3 (08:57→20:34)
--- NOTE | 2019-05-15 11:25 | IPN ---
DATE OF SERVICE: 05/15/2019 SUBJECTIVE: The patient was seen and examined at the bedside today morning. He reports that he is feeling weak and tired today and his thinks that it is the effect of the pain medications. He was unable to do physical therapy today. His antihypertensive was changed to carvedilol. His blood pressures are still high. The patient is scheduled for another dialysis today. OBJECTIVE: Vital Signs: Temperature is 97.9 degrees Fahrenheit, blood pressure 178/96, pulse is 77, respiratory rate of 18, saturating 99% on room air. Intake and Output. Ultrafiltration done during dialysis yesterday was 2.5 liters. Weight in the bed scale is 85.9 kg. PHYSICAL EXAMINATION: General: The patient is awake, alert, oriented x3, laying in bed, in no apparent distress. Head and Neck Exam: Extraocular muscles intact. Pupils equally round and reactive to light. Mucous membranes are moist. Neck is supple. He has a left IJ tunneled hemodialysis catheter. Cardiovascular: S1, S2, regular rate. Trace edema of the bilateral lower extremities and 1+ edema of the bilateral upper extremities. Respiratory: Chest is clear to auscultation bilaterally. Bilateral equal air entry. No rales or rhonchi. Abdomen: Soft. Positive bowel sounds. Peritoneal dialysis catheter was noted. Musculoskeletal: No clubbing or cyanosis. Left big toe ulcer is healing. 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 Power is 5/5 in all extremities, but otherwise the patient does seem lethargic. LAB REVIEW: CBC showed a WBC of 5.6, hemoglobin 9.5 and platelets are 152. BMP showed sodium 136, potassium 4.6, chloride 102, bicarb 27, BUN 15, creatinine is 5.6. CURRENT INPATIENT MEDICATIONS: The patient's medications were all reviewed by me. He has been switched to carvedilol 12.5 mg by mouth twice a day. Losartan is being stopped because the patient does not have any kidneys and it would not be very beneficial in controlling his blood pressure. No other significant change in medications today as compared with yesterday. ASSESSMENT/PLAN: 1. End-stage renal disease. The patient was switched from peritoneal dialysis to hemodialysis during this admission. He got an extra session of hemodialysis yesterday because of fluid overload. I will try to get at least two more kg of fluid removed during dialysis today. 2. Anemia in end-stage renal disease. Continue current dose of Aranesp. 3. Hypertension with end-stage renal disease. Blood pressure is still elevated. He was switched from metoprolol to carvedilol. I am stopping losartan which would not be very helpful in this patient who has bilateral nephrectomy and he is anuric. 4. Lethargic. Most likely it is associated with opioid pain medications.
[2019-05-15] MEDS ORDERED: HEPARIN 1,000 UNITS/ML 10ML VIAL (FOR RADIOLOGY& DIALYSIS ONLY)(J1644-10) IV ONE (12:00)
[2019-05-15] MEDS ORDERED: HEPARIN 1,000 UNITS/ML 10ML VIAL (FOR RADIOLOGY& DIALYSIS ONLY)(J1644-10) XX ONE (12:00)
[2019-05-15 14:00] VITALS: BP 156/84
--- NOTE | 2019-05-15 14:51 | IPNPDOC ---
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 He denies any new weakness in his arms or legs. He is agreeable to doing more therapy in the afternoon. REVIEW OF SYSTEMS: The following is a completed review of systems and has been reviewed. Review of systems otherwise unremarkable. PAIN: Patient self reports left toe pain EYES: No recent vision changes EARS, NOSE, & THROAT: No throat pain, or dysphagia, or rhinorrhea CARDIOVASCULAR: Denies chest pain or palpitations PULMONARY: Denies shortness of breath GASTROINTESTINAL: Denies constipation/diarrhea GENITOURINARY: +anuric MUSCULOSKELETAL: generalized weakness NEUROLOGICAL: +intermittent confusion HEMATOLOGICAL: denies easy bruising SKIN: denies rash PSYCHIATRIC: Unremarkable All other review of systems found to be negative. PHYSICAL EXAMINATION: VITAL SIGNS: Please see below. GENERAL: Pleasant and cooperative. No acute distress. HEENT: PERRL. Extraocular movements intact. Clear conjunctiva CARDIOVASCULAR: Regular rate and rhythm. +systolic murmurs, no rubs, or gallops LUNGS: Clear to auscultation bilaterally. No wheezes. No rhonchi ABDOMEN: Soft, nontender, nondistended. Positive bowel sounds. Normal active bowel sounds NEUROLOGICAL: Alert and oriented to person, place, not time, Cranial nerves II through XII grossly intact. Sensation grossly intact in all 4 limbs EXTREMITIES: 5\5 strength bilateral upper extremities. 4+\5 strength right lower extremity.4+/5 strength in left lower extremity except 3/5 ankle Df and 2/5 EHL SKIN: left chest wall permacath, left toe D1 with minimal swelling, no notable erythema or drainage, tip of toe appearing necrotic, nail bed does not appear infected ASSESSMENT:79-year-old M with past medical history of ESRD who presents status post encephalopathy in the setting of like uremia. PLAN: 1. 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 Neuro: patient admitted with encephalopathy, etiology possibly due to uremia in setting of ESRD continuing to affect his mobility and ADL management -patient continues to fluctuate in mentation 3.Cardiac: HTN c/u clonidine patch, COreg and isosorbide mononitrate- Losartan d/c's deferring to renal for BP management-recs appreciated -CAD c/u ASa and Coreg (changed from metoprolol)- medicine consulted to assist in management -chronic systolic/diastolic CHF- daily weights, fluid restrict 4. Resp: encourage incentive spirometry and monitor for infection, Duonebs ordered- patient with dry cough, will discuss the possibility of changing ARB to alternative BP med with renal as this may contributing to his cough 5. Renal: s/p bilat nephrectomies on PD at home, now on HD- renal consulted to assist in overall management -c/u Sevelamer, Cinacalcet, Calcium Acetate 6. GI ppx: omeprazole, bowel regimen to prevent constipation 7. DVT ppx: heparin 8. Pain: c/u Pamelor 10mg qHS for left toe pain and monitor for AMS while on this med, will d/c oxycodone 2.5mg in case it is contributing to fluctuations in mentation, c/u Tylenol 1000mg TID 9. Dispo: TBD Allergies Coded Allergies: amlodipine (Verified Allergy, Unknown, 05/01/19) indomethacin (Verified Allergy, Unknown, 05/01/19) nifedipine (Verified Allergy, Unknown, 05/01/19) hydralazine (Verified Adverse Reaction, Mild, ELEVATED BP, 05/01/19) Vital Signs Vital Signs Date Time Temp Pulse Resp B/P (MAP) Pulse Ox O2 Delivery O2 Flow Rate FiO2 05/15/19 14:00 97.1 77 18 156/84 (108) 97 Room Air Laboratory Data CBC/BMP Laboratory Tests 05/15/19 06:34 Labs 24H Laboratory Tests 2 05/14/19 19:37: Bedside Glucose (Misc Panel) 76L 05/15/19 06:26: Bedside Glucose (Misc Panel) 85 05/15/19 06:34: Immature Granulocyte % (Auto) 0.2, Neutrophils (%) (Auto) 43.6, Lymphocytes (%) (Auto) 30.3, Monocytes (%) (Auto) 11.9H, Eosinophils (%) (Auto) 13.5H, Basophils (%) (Auto) 0.5, Neutrophils # (Auto) 2.4, Lymphocytes # (Auto) 1.7, Monocytes # (Auto) 0.7, Eosinophils # (Auto) 0.8H, Basophils # (Auto) 0.0, Nucleated Red Blood Cells % (auto) 0.0, Anion Gap 7L, Glomerular Filtration Rate 12.6L, Calcium Level 8.9 Current Medications Current Medications Current Medications Medications (Trade) Dose Ordered Sig/Damien Route PRN Reason Start Time Stop Time Status Last Admin Dose Admin Acetaminophen (Tylenol Tab) 650 mg Q4HP PRN PO fever/MILD PAIN (PS 1-4) 05/11/19 14:15 05/11/19 17:22 DC Acetaminophen (Tylenol Tab) 1,000 mg TID PO 05/11/19 21:00 05/15/19 08:55 Albuterol/ Ipratropium (Duoneb (Ipr 0.5mg/Alb 2.5mg)) 3 ml Q2HP PRN NEB SOB/WHEEZING 05/14/19 10:00 Albuterol/ Ipratropium (Duoneb (Ipr 0.5mg/Alb 2.5mg)) 3 ml RTID NEB 05/14/19 14:00 05/15/19 12:55 Albuterol/ Ipratropium (Duoneb (Ipr 0.5mg/Alb 2.5mg)) 3 ml TID NEB 05/11/19 16:00 05/14/19 10:00 DC 05/14/19 07:22 Aspirin (Ecotrin) 81 mg DAILY PO 05/12/19 09:00 05/15/19 08:54 Calcium Acetate (Phoslo) 667 mg WM PO 05/11/19 18:00 05/14/19 17:13 Carvedilol (COReg) 12.5 mg BID@0800,2100 PO 05/15/19 09:01 Carvedilol (COReg) 12.5 mg Q12H PO 05/15/19 08:00 05/15/19 09:01 DC 05/15/19 08:54 Cinacalcet (Sensipar) 30 mg DAILY PO 05/12/19 09:00 05/15/19 08:54 Clonidine HCl (Ouogvlbu-Rcw-2) 1 ea We@09 TOP 05/16/19 09:00 Darbepoetin Irving (Aranesp (Dialysis Use)) 200 mcg HD IV 05/12/19 23:45 Docusate Sodium (Colace) 100 mg BID PO 05/11/19 21:00 05/15/19 08:54 Heparin Sodium (Porcine) (Heparin) 5,000 units Q8H SC 05/11/19 14:00 05/15/19 06:19 Isosorbide Mononitrate (Imdur) 120 mg DAILY PO 05/12/19 09:00 05/15/19 08:54 Losartan Potassium (Cozaar) 50 mg QHS PO 05/11/19 21:00 05/15/19 10:13 DC 05/14/19 20:35 Magnesium Hydroxide (Milk Of Magnesia) 30 ml DAILYPRN PRN PO CONSTIPATION 05/11/19 14:15 Metoprolol Succinate (TopROL XL) 100 mg QHS PO 05/11/19 21:00 05/14/19 22:29 DC 05/14/19 20:35 Multivitamins (Theragram-M) 1 tab DAILY PO 05/12/19 09:00 05/15/19 08:54 Mupirocin (Bactroban 2% Ointment) apply to top of nail ... BID TOP 05/11/19 21:00 05/15/19 08:57 Nitroglycerin (Nitrobid 2%) 1 gm BID TOP 05/11/19 21:00 05/11/19 17:43 DC Nitroglycerin (Nitrostat (1/ 150)) 0.4 mg Q5MP PRN SL CHEST PAIN 05/11/19 14:15 Nortriptyline HCl (Pamelor) 10 mg QHS PO 05/11/19 21:00 05/14/19 20:34 Omeprazole (PriLOSEC) 20 mg DAILY PO 05/12/19 09:00 05/15/19 08:56 Oxycodone HCl (Roxicodone, Oxyir) 2.5 mg Q6HP PRN PO PAIN 05/11/19 18:30 05/15/19 12:43 DC 05/14/19 08:15 Oxycodone HCl (Roxicodone, Oxyir) 2.5 mg Q8H PRN PO PAIN 05/11/19 17:30 05/11/19 18:17 DC Oxycodone HCl (Roxicodone, Oxyir) 5 mg Q6HP PRN PO PAIN 05/11/19 14:15 05/11/19 17:22 DC Patient Own Medication (Patient'S Own Med) paricalcitol 1mcg tab- take 2 t... DAILY PO 05/12/19 09:00 05/11/19 15:42 DC Potassium Chloride (Micro-K Extencaps) 20 meq DAILY PO 05/11/19 09:00 05/14/19 09:26 DC 05/14/19 07:42 Senna (Senokot) 1 tab QHS PO 05/11/19 21:00 05/14/19 20:35 Sevelamer Carbonate (Renvela) 800 mg WM PO 05/11/19 18:00 05/14/19 17:13 Vitamin D (Vitamin D) 2,000 units DAILY PO 05/11/19 09:00 05/15/19 08:53 JEFFERY CANTU MD May 15, 2019 14:51
[2019-05-15 20:00] VITALS: BP 140/73
[2019-05-15] MEDS: SENNA 8.6 MG TAB (SENOKOT) PO SCH (20:25)
[2019-05-15] MEDS: NORTRIPTYLINE 10 MG CAP PO SCH (20:26)
[2019-05-15] MEDS: CARVedilol 12.5 MG TAB PO SCH (20:26)
[2019-05-15] MEDS: IPRATROPIUM 0.5MG/ALBUTEROL 2.5MG INH SOL UD 3ML (DUONEB)(J7620) NEB PRN (22:39)
[2019-05-16] MEDS: IPRATROPIUM 0.5MG/ALBUTEROL 2.5MG INH SOL UD 3ML (DUONEB)(J7620) NEB PRN (04:58)
[2019-05-16] MEDS: HEPARIN SOD (PORCINE) 5000 UNITS/ML VIAL (J1644 PER 1000UNITS) SC SCH ×3 (05:14→21:54)
[2019-05-16 06:00] VITALS: BP 197/88
[2019-05-16 06:23] VITALS: BP 190/90
[2019-05-16] MEDS: CARVedilol 12.5 MG TAB PO SCH ×2 (06:44→21:55)
[2019-05-16 08:00] VITALS: BP 170/80
[2019-05-16] MEDS: IPRATROPIUM 0.5MG/ALBUTEROL 2.5MG INH SOL UD 3ML (DUONEB)(J7620) NEB SCH ×3 (08:09→22:12)
[2019-05-16] MEDS: ACETAMINOPHEN 500 MG TAB PO SCH ×3 (08:10→21:56)
[2019-05-16] MEDS: CALCIUM ACETATE 667 MG GELCAP PO SCH ×3 (08:10→17:22)
[2019-05-16] MEDS: CINACALCET 30 MG TAB (SENSIPAR) PO SCH (08:10)
[2019-05-16] MEDS: OMEPRAZOLE 20 MG CAP PO SCH (08:10)
[2019-05-16] MEDS: DOCUSATE SODIUM 100 MG CAP PO SCH ×2 (08:10→21:55)
[2019-05-16] MEDS: VITAMIN D 1,000 INTERNATIONAL UNITS TABLET PO SCH (08:11)
[2019-05-16] MEDS: ASPIRIN 81 MG ENTERIC TAB PO SCH (08:11)
[2019-05-16] MEDS: (RENVELA) SEVELAMER **CARBONate** 800 MG TAB PO SCH ×3 (08:11→17:22)
[2019-05-16] MEDS: MULTIVITAMINS/MINERALS THERAP 1 TAB PO SCH (08:11)
[2019-05-16] MEDS: MUPIROCIN 2% OINT 22 GM TUBE TOP SCH (08:12)
[2019-05-16] MEDS: ISOSORBIDE MON. (IMDUR) 60 MG XR TAB PO SCH (08:13)
[2019-05-16] MEDS ORDERED: cloNIDine HCL 0.1 MG/24 HR PATCH TOP SCH (09:00)
[2019-05-16] MEDS: REMEDY PHYTOPLEX Z-GUARD PASTE 113GM TUBE (FROM STOREROOM PRODUCT) TOP SCH ×3 (09:00→21:00)
[2019-05-16 14:00] VITALS: BP 158/88
[2019-05-16 14:07] LABS: ALBUMIN 2.8 GM/DL (3.2-5.2); CREATININE FOR GFR 5.41 MG/DL (0.70-1.30); GLOMERULAR FILTRATION RATE 13.3 (>42); PHOSPHORUS LEVEL 2.4 MG/DL (2.5-4.9); POTASSIUM SERUM 4.2 MEQ/L (3.5-5.1)
--- NOTE | 2019-05-16 14:27 | IPN ---
DATE OF SERVICE: 05/16/2019 SUBJECTIVE: The patient was seen and examined at the bedside today morning. He is laying in the bed. He reports he still has pain in the left big toe. He was dialyzed yesterday. He tolerated the hemodialysis procedure, two liters of fluid was removed. His blood pressures are still running high. OBJECTIVE: Vital Signs: Temperature is 97.7 degrees Fahrenheit, blood pressure 170/80, pulse is 77, respiratory rate of 19, saturating 97% on room air. Intake and Output. Ultrafiltration with hemodialysis was 2 liters. Weight in the bed scale was 85.9 kg yesterday. PHYSICAL EXAMINATION: General: The patient is awake, alert, oriented times three, laying in bed, in no apparent distress. Head and Neck Exam: Extraocular muscles intact. Pupils equally round and reactive to light. Mucous membranes are moist. Neck is supple. There is no jugular venous distention (JVD). Cardiovascular: S1, S2, regular rate. No edema of the bilateral lower extremities. Trace edema of the bilateral upper extremities. Respiratory: Chest is clear to auscultation bilaterally. Bilateral equal air entry. No rales or rhonchi. He has a left IJ tunneled hemodialysis catheter. Abdomen: Soft. Positive bowel sounds. Nontender. No organomegaly. Musculoskeletal: No clubbing or cyanosis. He has an ulcer on the left big toe which is tender. BUSINESS PROPOSAL REP: No focal deficit. Power is 5/5 in bilateral extremities. LAB REVIEW: CBC showed WBC of 5.6, hemoglobin 9.5 and that is from yesterday. BMP is also from yesterday. CURRENT INPATIENT MEDICATIONS; The patient's medications were all reviewed by me. His Coreg dose has been increased to 25 mg by mouth twice a day starting tonight. No other change in the medications today as compared with yesterday. ASSESSMENT/PLAN: 1. End-stage renal disease. The patient was dialyzed yesterday, two liters of fluid was removed. Further fluid removal will be done tomorrow morning because the patient is totally anuric. 2. Hypertension with end-stage renal disease. Blood pressures are still elevated. His Coreg dose has already been increased by primary team. Continue current dose of isosorbide. Further optimization of fluid status would help improve blood pressure. 3. Anemia in end-stage renal disease. Continue current dose of Aranesp. Hemoglobin level is improving. 4. Pain in the left big toe. Pain optimization is as per primary team.
[2019-05-16] MEDS: IBUPROFEN 400 MG TAB PO SCH ×2 (17:25→21:54)
--- NOTE | 2019-05-16 17:40 | IPNPDOC ---
PM&R Progress Note DATE OF SERVICE: May 16, 2019 [employer] Progress Note Subjective: Patient's is concerned about thyroid nodules seen on Abdomen/Pelvis CT 03/23 and would like further work-up initiated. REVIEW OF SYSTEMS: The following is a completed review of systems and has been reviewed. Review of systems otherwise unremarkable. PAIN: Patient self reports left toe pain EYES: No recent vision changes EARS, NOSE, & THROAT: No throat pain, or dysphagia, or rhinorrhea CARDIOVASCULAR: Denies chest pain or palpitations PULMONARY: Denies shortness of breath GASTROINTESTINAL: Denies constipation/diarrhea GENITOURINARY: +anuric MUSCULOSKELETAL: generalized weakness NEUROLOGICAL: +intermittent confusion HEMATOLOGICAL: denies easy bruising SKIN: denies rash PSYCHIATRIC: Unremarkable All other review of systems found to be negative. PHYSICAL EXAMINATION: VITAL SIGNS: Please see below. GENERAL: Pleasant and cooperative. No acute distress. HEENT: PERRL. Extraocular movements intact. Clear conjunctiva CARDIOVASCULAR: Regular rate and rhythm. +systolic murmurs, no rubs, or gallops LUNGS: Clear to auscultation bilaterally. No wheezes. No rhonchi ABDOMEN: Soft, nontender, nondistended. Positive bowel sounds. Normal active bowel sounds NEUROLOGICAL: Alert and oriented to person, place, not time, Cranial nerves II through XII grossly intact. Sensation grossly intact in all 4 limbs EXTREMITIES: 5\5 strength bilateral upper extremities. 4+\5 strength right lower extremity.4+/5 strength in left lower extremity except 3/5 ankle Df and 2/5 EHL SKIN: left chest wall permacath, left toe D1 with minimal swelling, no notable erythema or drainage, tip of toe appearing necrotic, nail bed does not appear infected ASSESSMENT:79-year-old M with past medical history of ESRD who presents status post encephalopathy in the setting of like uremia. PLAN: 1. Rehab-PT/OT advance gait training and ADl management, dynamic balance training, strengthen/stretch/maintain ROM bilat UE and LE - PERFORMANCE SOLUTIONS SPECIALIST for cognitive eval 2. Neuro: patient admitted with encephalopathy, etiology possibly due to uremia in setting of ESRD continuing to affect his mobility and ADL management -patient continues to fluctuate in mentation 3.Cardiac: HTN c/u clonidine patch, COreg and isosorbide mononitrate- Losartan d/c's deferring to renal for BP management-recs appreciated -CAD c/u ASa and Coreg (changed from metoprolol)- medicine consulted to assist in management -chronic systolic/diastolic CHF- daily weights, fluid restrict 4. Resp: encourage incentive spirometry and monitor for infection, Duonebs ordered- patient with dry cough, will discuss the possibility of changing ARB to alternative BP med with renal as this may contributing to his cough 5. Renal: s/p bilat nephrectomies on PD at home, now on HD- renal consulted to assist in overall management -c/u Sevelamer, Cinacalcet, Calcium Acetate 6. GI ppx: omeprazole, bowel regimen to prevent constipation 7. DVT ppx: heparin 8. Pain: Pamelor changed to 10mg BID, will start ibuprofen as well for left toe pain -c/u Tylenol 1000mg TID 9. Endo: patient with thryoid nodules on recent CT, TSH low end of normal, will f/u with FT4/Ft3 and order thyroid US 10. Dispo: TBD Allergies Coded Allergies: amlodipine (Verified Allergy, Unknown, 05/01/19) indomethacin (Verified Allergy, Unknown, 05/01/19) nifedipine (Verified Allergy, Unknown, 05/01/19) hydralazine (Verified Adverse Reaction, Mild, ELEVATED BP, 05/01/19) Vital Signs Vital Signs Date Time Temp Pulse Resp B/P (MAP) Pulse Ox O2 Delivery O2 Flow Rate FiO2 05/16/19 14:00 98.4 75 18 158/88 (111) 100 Room Air Laboratory Data CBC/BMP Laboratory Tests 05/16/19 13:24 Labs 24H Laboratory Tests 2 05/16/19 13:24: Anion Gap 5L, Glomerular Filtration Rate 13.3L, Calcium Level 9.0, Phosphorus Level 2.4L, Albumin 2.8L Current Medications Current Medications Current Medications Medications (Trade) Dose Ordered Sig/Damien Route PRN Reason Start Time Stop Time Status Last Admin Dose Admin Acetaminophen (Tylenol Tab) 650 mg Q4HP PRN PO fever/MILD PAIN (PS 1-4) 05/11/19 14:15 05/11/19 17:22 DC Acetaminophen (Tylenol Tab) 1,000 mg TID PO 05/11/19 21:00 05/16/19 08:10 Albuterol/ Ipratropium (Duoneb (Ipr 0.5mg/Alb 2.5mg)) 3 ml Q2HP PRN NEB SOB/WHEEZING 05/14/19 10:00 05/16/19 04:58 Albuterol/ Ipratropium (Duoneb (Ipr 0.5mg/Alb 2.5mg)) 3 ml RTID NEB 05/14/19 14:00 05/16/19 14:40 Albuterol/ Ipratropium (Duoneb (Ipr 0.5mg/Alb 2.5mg)) 3 ml TID NEB 05/11/19 16:00 05/14/19 10:00 DC 05/14/19 07:22 Aspirin (Ecotrin) 81 mg DAILY PO 05/12/19 09:00 05/16/19 08:11 Calcium Acetate (Phoslo) 667 mg WM PO 05/11/19 18:00 05/16/19 17:22 Carvedilol (COReg) 12.5 mg BID@0800,2100 PO 05/15/19 09:01 05/16/19 09:44 DC 05/16/19 06:44 Carvedilol (COReg) 12.5 mg Q12H PO 05/15/19 08:00 05/15/19 09:01 DC 05/15/19 08:54 Carvedilol (COReg) 25 mg BID@0800,2100 PO 05/16/19 21:00 Cinacalcet (Sensipar) 30 mg DAILY PO 05/12/19 09:00 05/16/19 08:10 Clonidine HCl (Ucefisax-Tyx-9) 1 ea We@09 [facility] 05/16/19 09:00 05/16/19 08:14 Darbepoetin Irving (Aranesp (Dialysis Use)) 200 mcg HD IV 05/12/19 23:45 Docusate Sodium (Colace) 100 mg BID PO 05/11/19 21:00 05/16/19 08:10 Heparin Sodium (Porcine) (Heparin) 5,000 units Q8H SC 05/11/19 14:00 05/16/19 12:35 Ibuprofen (Advil) 400 mg TID PO 05/16/19 16:30 05/16/19 17:25 Isosorbide Mononitrate (Imdur) 120 mg DAILY PO 05/12/19 09:00 05/16/19 08:13 Losartan Potassium (Cozaar) 50 mg QHS PO 05/11/19 21:00 05/15/19 10:13 DC 05/14/19 20:35 Magnesium Hydroxide (Milk Of Magnesia) 30 ml DAILYPRN PRN PO CONSTIPATION 05/11/19 14:15 Metoprolol Succinate (TopROL XL) 100 mg QHS PO 05/11/19 21:00 05/14/19 22:29 DC 05/14/19 20:35 Multivitamins (Theragram-M) 1 tab DAILY PO 05/12/19 09:00 05/16/19 08:11 Mupirocin (Bactroban 2% Ointment) apply to top of nail ... BID TOP 05/11/19 21:00 05/16/19 16:34 DC 05/16/19 08:12 Nitroglycerin (Nitrobid 2%) 1 gm BID TOP 05/11/19 21:00 05/11/19 17:43 DC Nitroglycerin (Nitrostat (1/ 150)) 0.4 mg Q5MP PRN SL CHEST PAIN 05/11/19 14:15 Nortriptyline HCl (Pamelor) 10 mg BID PO 05/16/19 21:00 Nortriptyline HCl (Pamelor) 10 mg QHS PO 05/11/19 21:00 05/16/19 15:44 DC 05/15/19 20:26 Omeprazole (PriLOSEC) 20 mg DAILY PO 05/12/19 09:00 05/16/19 08:10 Oxycodone HCl (Roxicodone, Oxyir) 2.5 mg Q6HP PRN PO PAIN 05/11/19 18:30 05/15/19 12:43 DC 05/14/19 08:15 Oxycodone HCl (Roxicodone, Oxyir) 2.5 mg Q8H PRN PO PAIN 05/11/19 17:30 05/11/19 18:17 DC Oxycodone HCl (Roxicodone, Oxyir) 5 mg Q6HP PRN PO PAIN 05/11/19 14:15 05/11/19 17:22 DC Patient Own Medication (Patient'S Own Med) paricalcitol 1mcg tab- take 2 t... DAILY PO 05/12/19 09:00 05/11/19 15:42 DC Potassium Chloride (Micro-K Extencaps) 20 meq DAILY PO 05/11/19 09:00 05/14/19 09:26 DC 05/14/19 07:42 Senna (Senokot) 1 tab QHS PO 05/11/19 21:00 05/15/19 20:25 Sevelamer Carbonate (Renvela) 800 mg WM PO 05/11/19 18:00 05/16/19 17:22 Vitamin D (Vitamin D) 2,000 units DAILY PO 05/11/19 09:00 05/16/19 08:11 JEFFERY CANTU MD May 16, 2019 17:40
[2019-05-16 21:19] VITALS: BP 180/80
[2019-05-16] MEDS: SENNA 8.6 MG TAB (SENOKOT) PO SCH (21:55)
[2019-05-16] MEDS: NORTRIPTYLINE 10 MG CAP PO SCH (22:08)
[2019-05-17] MEDS: IPRATROPIUM 0.5MG/ALBUTEROL 2.5MG INH SOL UD 3ML (DUONEB)(J7620) NEB PRN (04:18)
[2019-05-17 06:00] VITALS: BP 170/80
[2019-05-17] MEDS: HEPARIN SOD (PORCINE) 5000 UNITS/ML VIAL (J1644 PER 1000UNITS) SC SCH ×3 (06:00→22:00)
[2019-05-17] MEDS: IPRATROPIUM 0.5MG/ALBUTEROL 2.5MG INH SOL UD 3ML (DUONEB)(J7620) NEB SCH ×3 (07:14→19:58)
[2019-05-17 08:03] LABS: ALBUMIN 2.4 GM/DL (3.2-5.2); CALCIUM LEVEL 8.9 MG/DL (8.8-10.2); CREATININE FOR GFR 7.09 MG/DL (0.70-1.30); FREE T3 1.8 PG/ML (2.2-4.0); FREE T4 1.32 NG/DL (0.76-1.46); GLOMERULAR FILTRATION RATE 9.8 (>42); PHOSPHORUS LEVEL 3.2 MG/DL (2.5-4.9); POTASSIUM SERUM 4.3 MEQ/L (3.5-5.1)
[2019-05-17] MEDS: VITAMIN D 1,000 INTERNATIONAL UNITS TABLET PO SCH (09:05)
[2019-05-17] MEDS: OMEPRAZOLE 20 MG CAP PO SCH (09:05)
[2019-05-17] MEDS: CALCIUM ACETATE 667 MG GELCAP PO SCH ×3 (09:05→22:36)
[2019-05-17] MEDS: CARVedilol 12.5 MG TAB PO SCH ×2 (09:06→22:34)
[2019-05-17] MEDS: CINACALCET 30 MG TAB (SENSIPAR) PO SCH (09:06)
[2019-05-17] MEDS: (RENVELA) SEVELAMER **CARBONate** 800 MG TAB PO SCH ×3 (09:06→22:36)
[2019-05-17] MEDS: NORTRIPTYLINE 10 MG CAP PO SCH ×3 (09:06→22:41)
[2019-05-17] MEDS: ASPIRIN 81 MG ENTERIC TAB PO SCH (09:06)
[2019-05-17] MEDS: ISOSORBIDE MON. (IMDUR) 60 MG XR TAB PO SCH ×2 (09:06→22:35)
[2019-05-17] MEDS: DOCUSATE SODIUM 100 MG CAP PO SCH ×2 (09:07→22:35)
[2019-05-17] MEDS: ACETAMINOPHEN 500 MG TAB PO SCH ×3 (09:07→22:36)
[2019-05-17] MEDS: IBUPROFEN 400 MG TAB PO SCH ×3 (09:07→22:36)
[2019-05-17] MEDS: REMEDY PHYTOPLEX Z-GUARD PASTE 113GM TUBE (FROM STOREROOM PRODUCT) TOP SCH ×3 (09:08→22:43)
[2019-05-17] MEDS: MULTIVITAMINS/MINERALS THERAP 1 TAB PO SCH (09:08)
[2019-05-17] MEDS ORDERED: HEPARIN 1,000 UNITS/ML 10ML VIAL (FOR RADIOLOGY& DIALYSIS ONLY)(J1644-10) IV ONE (10:45)
[2019-05-17] MEDS ORDERED: HEPARIN 1,000 UNITS/ML 10ML VIAL (FOR RADIOLOGY& DIALYSIS ONLY)(J1644-10) XX ONE (10:45)
--- NOTE | 2019-05-17 11:42 | IPNPDOC ---
Text Note Date of Service The patient was seen on 05/17/19. NOTE This note pertains to the nephrology service with Tad Sequeira MD super vising my work. Please see E attestation below. SUBJECTIVE: The patient was examined at the bedside this morning. He continues to experience left big toe pain. He will undergo dialysis today. OBJECTIVE: GENERAL: Pt is awake, alert, oriented times three, laying in bed, in no apparent distress. HEENT: Normocephalic, atraumatic. EOMI. Mucous membranes are moist. Neck is supple. CARDIOVASCULAR: Regular rate and rhythm. Normal S1 & S2. No edema of the bilateral lower extremities. Trace edema of the bilateral upper extremities. RESPIRATORY: Lungs clear to auscultation b/l. No wheezes, rales, or rhonchi. Left IJ tunneled hemodialysis catheter present. MUSCULOSKELETAL: No clubbing or cyanosis. Tender left big toe ulcer present. PSYCHOLOGICAL: Pt is calm and cooperative. He answers questions appropriately. Insight is good. INTAKE AND OUTPUT: Pt is on a fluid restriction. He produces no urine. He will receive dialysis today with a goal of 3-3.5L removed by ultrafiltration. LAB REVIEW: Renal panel this morning shows sodium 137, potassium 4.3, chloride 101, bicarbonate 28, BUN 21, creatinine 7.09, calcium 8.9, and phosphorus 3.2. ASSESSMENT/PLAN: 1. End-stage renal disease - Pt's electrolyte status is stable. Pt is anuric. - He will be dialyzed as scheduled today with 3-3.5L fluid removed. 2. Hypertension in end-stage renal disease - Blood pressure decreased to 144/67 this morning per his amended carvedilol regimen. - Continue current dose of isosorbide. Continue fluid optimization via dialysis described above. 3. Anemia in end-stage renal disease - Hemoglobin continues to improve. Continue current dose of Aranesp. 4. Left big toe pain - Pain is being managed by the primary team. VS,Fishbone, I+O VS, Fishbone, I+O Laboratory Tests 05/16/19 13:24 05/17/19 06:47 Vital Signs Date Time Temp Pulse Resp B/P (MAP) Pulse Ox O2 Delivery O2 Flow Rate FiO2 05/17/19 09:06 74 144/67 05/17/19 06:00 98.5 18 97 Room Air I&O- Last 24 Hours up to 6 AM 05/17/19 06:00 Intake Total 1250 ml Balance 1250 ml GME ATTESTATION GME ATTESTATION My faculty preceptor for this patient encounter was physically present during the encounter and was fully available. All aspects of the patient interview, examination, medical decision making process, and medical care plan development were reviewed and approved by the faculty preceptor. The faculty preceptor is aware and concurs with the plan as stated in the body of this note and will attest to such by his/her cosignature. ZEKE BARNHART OMS-III May 17, 2019 11:42
[2019-05-17 13:29] LABS: C REACTIVE PROTEIN QUANTITATIV 5.97 MG/DL (0.00-0.30)
[2019-05-17 13:35] LABS: C REACTIVE PROTEIN QUANTITATIV 7.76 MG/DL (0.00-0.30)
--- NOTE | 2019-05-17 18:26 | IPNPDOC ---
PM&R Progress Note DATE OF SERVICE: May 17, 2019 [employer] T[employer] Progress Note Subjective: Patient's requesting his thyroid imaging be postponed and is agreeable to getting a repeat MRI of his foot. REVIEW OF SYSTEMS: The following is a completed review of systems and has been reviewed. Review of systems otherwise unremarkable. PAIN: Patient self reports left toe pain EYES: No recent vision changes EARS, NOSE, & THROAT: No throat pain, or dysphagia, or rhinorrhea CARDIOVASCULAR: Denies chest pain or palpitations PULMONARY: Denies shortness of breath GASTROINTESTINAL: Denies constipation/diarrhea GENITOURINARY: +anuric MUSCULOSKELETAL: generalized weakness NEUROLOGICAL: +intermittent confusion HEMATOLOGICAL: denies easy bruising SKIN: denies rash PSYCHIATRIC: Unremarkable All other review of systems found to be negative. PHYSICAL EXAMINATION: VITAL SIGNS: Please see below. GENERAL: Pleasant and cooperative. No acute distress. HEENT: PERRL. Extraocular movements intact. Clear conjunctiva CARDIOVASCULAR: Regular rate and rhythm. +systolic murmurs, no rubs, or gallops LUNGS: Clear to auscultation bilaterally. No wheezes. No rhonchi ABDOMEN: Soft, nontender, nondistended. Positive bowel sounds. Normal active bowel sounds NEUROLOGICAL: Alert and oriented to person, place, not time, Cranial nerves II through XII grossly intact. Sensation grossly intact in all 4 limbs EXTREMITIES: 5\5 strength bilateral upper extremities. 4+\5 strength right lower extremity.4+/5 strength in left lower extremity except 3/5 ankle Df and 2/5 EHL SKIN: left chest wall permacath, left toe D1 with minimal swelling, no notable erythema or drainage, tip of toe appearing necrotic, nail bed does not appear infected ASSESSMENT:79-year-old M with past medical history of ESRD who presents status post encephalopathy in the setting of like uremia. PLAN: 1. Rehab-PT/OT advance gait training and ADl management, dynamic balance training, strengthen/stretch/maintain ROM bilat UE and LE - SE[employer]IC TANK SETTER for cognitive eval 2. Neuro: patient admitted with encephalopathy, etiology possibly due to uremia in setting of ESRD continuing to affect his mobility and ADL management -patient continues to fluctuate in mentation 3.Cardiac: HTN c/u clonidine patch, COreg and isosorbide mononitrate- Losartan d/c's deferring to renal for BP management-recs appreciated -CAD c/u ASa and Coreg (changed from metoprolol)- medicine consulted to assist in management -chronic systolic/diastolic CHF- daily weights, fluid restrict 4. Resp: encourage incentive spirometry and monitor for infection, Duonebs ordered- patient with dry cough, will discuss the possibility of changing ARB to alternative BP med with renal as this may contributing to his cough 5. Renal: s/p bilat nephrectomies on PD at home, now on HD- renal consulted to assist in overall management -c/u Sevelamer, Cinacalcet, Calcium Acetate 6. GI ppx: omeprazole, bowel regimen to prevent constipation 7. DVT ppx: heparin 8. Pain: Pamelor changed to 10mg BID, c/u ibuprofen as well for left toe pain -c/u Tylenol 1000mg TID 9. Endo: patient with thryoid nodules on recent CT, TSH low end of normal, will f/u with FT4/Ft3 and order thyroid US 10. Infectious- recent MRI negative for osteomyelitis of toe, however will repeat to make sure there is no bone infection- CRP trending slightly up 11. Dispo: TBD Allergies Coded Allergies: amlodipine (Verified Allergy, Unknown, 05/01/19) indomethacin (Verified Allergy, Unknown, 05/01/19) nifedipine (Verified Allergy, Unknown, 05/01/19) hydralazine (Verified Adverse Reaction, Mild, ELEVATED BP, 05/01/19) Vital Signs Vital Signs Date Time Temp Pulse Resp B/P (MAP) Pulse Ox O2 Delivery O2 Flow Rate FiO2 05/17/19 09:06 74 144/67 05/17/19 06:00 98.5 18 97 Room Air Laboratory Data CBC/BMP Laboratory Tests 05/17/19 06:47 Labs 24H Laboratory Tests 2 05/17/19 06:47: Anion Gap 8, Glomerular Filtration Rate 9.8L, Calcium Level 8.9, Phosphorus Level 3.2#, C-Reactive Protein, Quantitative 7.76H, Albumin 2.4L, Free Thyroxine 1.32, Free Triiodothyronine 1.8L Current Medications Current Medications Current Medications Medications (Trade) Dose Ordered Sig/Damien Route PRN Reason Start Time Stop Time Status Last Admin Dose Admin Acetaminophen (Tylenol Tab) 650 mg Q4HP PRN PO fever/MILD PAIN (PS 1-4) 05/11/19 14:15 05/11/19 17:22 DC Acetaminophen (Tylenol Tab) 1,000 mg TID PO 05/11/19 21:00 05/17/19 17:48 Albuterol/ Ipratropium (Duoneb (Ipr 0.5mg/Alb 2.5mg)) 3 ml Q2HP PRN NEB SOB/WHEEZING 05/14/19 10:00 05/17/19 04:18 Albuterol/ Ipratropium (Duoneb (Ipr 0.5mg/Alb 2.5mg)) 3 ml RTID NEB 05/14/19 14:00 05/17/19 13:30 Albuterol/ Ipratropium (Duoneb (Ipr 0.5mg/Alb 2.5mg)) 3 ml TID NEB 05/11/19 16:00 05/14/19 10:00 DC 05/14/19 07:22 Aspirin (Ecotrin) 81 mg DAILY PO 05/12/19 09:00 05/17/19 09:06 Calcium Acetate (Phoslo) 667 mg WM PO 05/11/19 18:00 05/17/19 09:05 Carvedilol (COReg) 12.5 mg BID@0800,2100 PO 05/15/19 09:01 05/16/19 09:44 DC 05/16/19 06:44 Carvedilol (COReg) 12.5 mg Q12H PO 05/15/19 08:00 05/15/19 09:01 DC 05/15/19 08:54 Carvedilol (COReg) 25 mg BID@0800,2100 PO 05/16/19 21:00 05/17/19 09:06 Cinacalcet (Sensipar) 30 mg DAILY PO 05/12/19 09:00 05/17/19 09:06 Clonidine HCl (Itedjgwh-Vzu-5) 1 ea We@09 [facility] 05/16/19 09:00 05/16/19 08:14 Darbepoetin Irving (Aranesp (Dialysis Use)) 200 mcg HD IV 05/12/19 23:45 Docusate Sodium (Colace) 100 mg BID PO 05/11/19 21:00 05/17/19 09:07 Heparin Sodium (Porcine) (Heparin) 5,000 units Q8H SC 05/11/19 14:00 05/17/19 06:00 Ibuprofen (Advil) 400 mg TID PO 05/16/19 16:30 05/17/19 17:48 Isosorbide Mononitrate (Imdur) 120 mg DAILY PO 05/12/19 09:00 05/17/19 09:06 Losartan Potassium (Cozaar) 50 mg QHS PO 05/11/19 21:00 05/15/19 10:13 DC 05/14/19 20:35 Magnesium Hydroxide (Milk Of Magnesia) 30 ml DAILYPRN PRN PO CONSTIPATION 05/11/19 14:15 Metoprolol Succinate (TopROL XL) 100 mg QHS PO 05/11/19 21:00 05/14/19 22:29 DC 05/14/19 20:35 Multivitamins (Theragram-M) 1 tab DAILY PO 05/12/19 09:00 05/17/19 09:08 Mupirocin (Bactroban 2% Ointment) apply to top of nail ... BID TOP 05/11/19 21:00 05/16/19 16:34 DC 05/16/19 08:12 Nitroglycerin (Nitrobid 2%) 1 gm BID TOP 05/11/19 21:00 05/11/19 17:43 DC Nitroglycerin (Nitrostat (1/ 150)) 0.4 mg Q5MP PRN SL CHEST PAIN 05/11/19 14:15 Nortriptyline HCl (Pamelor) 10 mg BID PO 05/16/19 21:00 05/17/19 09:06 Nortriptyline HCl (Pamelor) 10 mg QHS PO 05/11/19 21:00 05/16/19 15:44 DC 05/15/19 20:26 Omeprazole (PriLOSEC) 20 mg DAILY PO 05/12/19 09:00 05/17/19 09:05 Oxycodone HCl (Roxicodone, Oxyir) 2.5 mg Q6HP PRN PO PAIN 05/11/19 18:30 05/15/19 12:43 DC 05/14/19 08:15 Oxycodone HCl (Roxicodone, Oxyir) 2.5 mg Q8H PRN PO PAIN 05/11/19 17:30 05/11/19 18:17 DC Oxycodone HCl (Roxicodone, Oxyir) 5 mg Q6HP PRN PO PAIN 05/11/19 14:15 05/11/19 17:22 DC Patient Own Medication (Patient'S Own Med) paricalcitol 1mcg tab- take 2 t... DAILY PO 05/12/19 09:00 05/11/19 15:42 DC Potassium Chloride (Micro-K Extencaps) 20 meq DAILY PO 05/11/19 09:00 05/14/19 09:26 DC 05/14/19 07:42 Senna (Senokot) 1 tab QHS PO 05/11/19 21:00 05/16/19 21:55 Sevelamer Carbonate (Renvela) 800 mg WM PO 05/11/19 18:00 05/17/19 09:06 Vitamin D (Vitamin D) 2,000 units DAILY PO 05/11/19 09:00 05/17/19 09:05 JEFFERY CANTU MD May 17, 2019 18:26
[2019-05-17 20:00] VITALS: BP 158/62
[2019-05-17] MEDS: SENNA 8.6 MG TAB (SENOKOT) PO SCH (22:38)
[2019-05-18] MEDS: IPRATROPIUM 0.5MG/ALBUTEROL 2.5MG INH SOL UD 3ML (DUONEB)(J7620) NEB PRN (03:51)
[2019-05-18] MEDS: HEPARIN SOD (PORCINE) 5000 UNITS/ML VIAL (J1644 PER 1000UNITS) SC SCH ×3 (05:35→20:58)
[2019-05-18] MEDS: NORTRIPTYLINE 10 MG CAP PO SCH ×3 (05:48→20:58)
[2019-05-18 05:50] VITALS: BP 168/79
[2019-05-18] MEDS: CALCIUM ACETATE 667 MG GELCAP PO SCH ×3 (08:00→16:55)
[2019-05-18] MEDS: (RENVELA) SEVELAMER **CARBONate** 800 MG TAB PO SCH ×3 (08:00→16:55)
[2019-05-18 08:27] LABS: BASO % 0.4 % (0.0-1.0); EOS # 0.7 10^3/uL (0.0-0.5); EOS % 15.5 % (0.0-3.0); HEMATOCRIT 28.1 % (42.0-52.0); HEMOGLOBIN 9.3 g/dl (13.5-17.5); LYMPH # 1.5 10^3/uL (1.5-5.0); LYMPH % 32.1 % (24.0-44.0); MEAN CORPUSCULAR HEMOGLOBIN 32.2 pg (27.0-33.0); MEAN CORPUSCULAR HGB CONC 33.1 g/dl (32.0-36.5); MEAN CORPUSCULAR VOLUME 97.2 fl (80.0-96.0); MONO # 0.6 10^3/uL (0.0-0.8); NEUTROPHILS # 1.8 10^3/uL (1.5-8.5); NEUTROPHILS % 39.8 % (36.0-66.0); PLATELET COUNT, AUTOMATED 174 10^3/uL (150-450); RED BLOOD COUNT 2.89 10^6/uL (4.30-6.10); WHITE BLOOD COUNT 4.6 10^3/uL (4.0-10.0)
[2019-05-18 08:45] LABS: CALCIUM LEVEL 9.3 MG/DL (8.8-10.2); CREATININE FOR GFR 5.31 MG/DL (0.70-1.30); GLOMERULAR FILTRATION RATE 13.6 (>42); POTASSIUM SERUM 4.2 MEQ/L (3.5-5.1)
[2019-05-18] MEDS: OMEPRAZOLE 20 MG CAP PO SCH (08:50)
[2019-05-18] MEDS: VITAMIN D 1,000 INTERNATIONAL UNITS TABLET PO SCH (08:50)
[2019-05-18] MEDS: ASPIRIN 81 MG ENTERIC TAB PO SCH (08:50)
[2019-05-18] MEDS: DOCUSATE SODIUM 100 MG CAP PO SCH ×2 (08:50→20:58)
[2019-05-18] MEDS: MULTIVITAMINS/MINERALS THERAP 1 TAB PO SCH (08:50)
[2019-05-18] MEDS: IBUPROFEN 400 MG TAB PO SCH ×3 (08:50→20:59)
[2019-05-18] MEDS: CARVedilol 12.5 MG TAB PO SCH ×2 (08:51→21:00)
[2019-05-18] MEDS: ACETAMINOPHEN 500 MG TAB PO SCH ×3 (08:51→20:59)
[2019-05-18] MEDS: CINACALCET 30 MG TAB (SENSIPAR) PO SCH (08:51)
[2019-05-18] MEDS: IPRATROPIUM 0.5MG/ALBUTEROL 2.5MG INH SOL UD 3ML (DUONEB)(J7620) NEB SCH ×3 (08:54→20:13)
[2019-05-18] MEDS: REMEDY PHYTOPLEX Z-GUARD PASTE 113GM TUBE (FROM STOREROOM PRODUCT) TOP SCH ×3 (09:00→20:59)
--- NOTE | 2019-05-18 11:13 | IPNPDOC ---
Text Note Date of Service The patient was seen on 05/18/19. NOTE This note pertains to the nephrology service with Tad Sequeira MD super vising my work. Please see E attestation below. SUBJECTIVE: The patient was examined in the ARU gym this morning. He continues to experience left big toe pain. He will undergo dialysis today. OBJECTIVE: GENERAL: Pt is sitting on the exercise bike in no acute distress. He is not dyspneic. HEENT: Normocephalic, atraumatic. EOMI. Mucous membranes are moist. Neck is supple. CARDIOVASCULAR: Regular rate and rhythm. Normal S1 & S2. No edema of the bilateral lower extremities. Trace edema of the bilateral upper extremities. RESPIRATORY: Lungs clear to auscultation b/l. No wheezes, rales, or rhonchi. Left IJ tunneled hemodialysis catheter present. MUSCULOSKELETAL: No clubbing or cyanosis. Tender left big toe ulcer present. PSYCHOLOGICAL: Pt is calm and cooperative. He answers questions appropriately. Insight is good. INTAKE AND OUTPUT: Pt is on a fluid restriction. He produces no urine. He received dialysis yesterday with 3 L removed. LABORATORY REVIEW: CBC: WBC 4.6, HGB 9.3, platelets 174. BMP: Sodium 134, potassium 4.2, chloride 101, bicarbonate 26, BUN 14, creatinine 5.31. ASSESSMENT/PLAN: 1. End-stage renal disease - Pt's electrolyte status is stable. Pt is anuric. He tolerated dialysis well yesterday. - We will continue to remove fluid by hemodialysis while an inpatient, and then reestablish his peritoneal dialysis regimen when he is discharged. 2. Hypertension in end-stage renal disease - Blood pressure was 160/79 this morning. His blood pressure responds well to fluid removal via dialysis. - Continue current dose of isosorbide. Continue fluid optimization via dialysis described above. 3. Anemia in end-stage renal disease - Hemoglobin is stable. Continue current dose of Aranesp. 4. Left big toe pain - Pain is being managed by the primary team. VS,Fishbone, I+O VS, Fishbone, I+O Laboratory Tests 05/18/19 07:45 Vital Signs Date Time Temp Pulse Resp B/P (MAP) Pulse Ox O2 Delivery O2 Flow Rate FiO2 05/18/19 08:51 68 168/79 05/18/19 05:50 98.6 18 95 Room Air I&O- Last 24 Hours up to 6 AM 05/18/19 06:00 Intake Total 1115 ml Output Total 3000 ml Balance -1885 ml GME ATTESTATION GME ATTESTATION My faculty preceptor for this patient encounter was physically present during the encounter and was fully available. All aspects of the patient interview, examination, medical decision making process, and medical care plan development were reviewed and approved by the faculty preceptor. The faculty preceptor is aware and concurs with the plan as stated in the body of this note and will attest to such by his/her cosignature. ZEKE BARNHART OMS-III May 18, 2019 11:13
[2019-05-18] MEDS: ISOSORBIDE MON. (IMDUR) 60 MG XR TAB PO SCH (11:44)
--- NOTE | 2019-05-18 13:33 | REP ---
Clinical: Thyroid nodule. Technique: Real time finhc scale ultrasound examination and color Doppler evaluation using linear high frequency transducer. Findings: Evaluation is somewhat limited due to low position of the thyroid gland beyond the level of the clavicles. Isthmus measures approximately 6 mm in width and an adjacent hypoechoic nodule extending to the right lobe measures 9 x 8 x 9 mm. Right thyroid lobe measures 5.0 x 2.6 x 2.8 cm. Complex mixed nodule in the mid lobe measures 9 x 9 ml 11 mm and complex mixed nodule in the lower lobe measures 14 x 13 x 11 mm. Small cyst identified in the mid lobe measures 4 x 4 x 5 mm. Left thyroid lobe measures 5.0 x 1.9 x 2.1 cm. Hypoechoic nodule in the mid/lower lobe with partial rim calcification measures 8 x 10 x 14 mm. Incidental tortuous vein courses anteriorly and superiorly to the thyroid gland having normal venous flow characteristics. No obvious surrounding adenopathy is appreciated. Impression: Bilateral nonspecific hypoechoic and mixed complex nodules. Electronically Signed by Berny Vogt MD 05/18/2019 01:24 P
--- NOTE | 2019-05-18 13:50 | IPNPDOC ---
PM&R Progress Note DATE OF SERVICE: May 18, 2019 Floor Space Allocator Progress Note Subjective: Patient seen this morning stating he did not take the Pamelor this morning because a nurse mentioned it might make him dizzy. He was encouraged to take it and that he was in a safe environment to be monitored in case he had a bad reaction. REVIEW OF SYSTEMS: The following is a completed review of systems and has been reviewed. Review of systems otherwise unremarkable. PAIN: Patient self reports left toe pain EYES: No recent vision changes EARS, NOSE, & THROAT: No throat pain, or dysphagia, or rhinorrhea CARDIOVASCULAR: Denies chest pain or palpitations PULMONARY: Denies shortness of breath GASTROINTESTINAL: Denies constipation/diarrhea GENITOURINARY: +anuric MUSCULOSKELETAL: generalized weakness NEUROLOGICAL: +intermittent confusion HEMATOLOGICAL: denies easy bruising SKIN: denies rash PSYCHIATRIC: Unremarkable All other review of systems found to be negative. PHYSICAL EXAMINATION: VITAL SIGNS: Please see below. GENERAL: Pleasant and cooperative. No acute distress. HEENT: PERRL. Extraocular movements intact. Clear conjunctiva CARDIOVASCULAR: Regular rate and rhythm. +systolic murmurs, no rubs, or gallops LUNGS: Clear to auscultation bilaterally. No wheezes. No rhonchi ABDOMEN: Soft, nontender, nondistended. Positive bowel sounds. Normal active bowel sounds NEUROLOGICAL: Alert and oriented to person, place, not time, Cranial nerves II through XII grossly intact. Sensation grossly intact in all 4 limbs EXTREMITIES: 5\\5 strength bilateral upper extremities. 4+\\5 strength right lower extremity.4+/5 strength in left lower extremity except 3/5 ankle Df and 2/5 EHL SKIN: left chest wall permacath, left toe D1 with minimal swelling, no notable erythema or drainage, tip of toe appearing necrotic, nail bed does not appear infected ASSESSMENT:79-year-old M with past medical history of ESRD who presents status post encephalopathy in the setting of like uremia. PLAN: 1. Rehab-PT/OT advance gait training and ADl management, dynamic balance training, strengthen/stretch/maintain ROM bilat UE and LE - GENERATING PLANT SUPERINTENDENT for cognitive eval 2. Neuro: patient admitted with encephalopathy, etiology possibly due to uremia in setting of ESRD continuing to affect his mobility and ADL management -patient continues to fluctuate in mentation 3.Cardiac: HTN c/u clonidine patch, COreg and isosorbide mononitrate- Losartan d/c's deferring to renal for BP management-recs appreciated -CAD c/u ASa and Coreg (changed from metoprolol)- medicine consulted to assist in management -chronic systolic/diastolic CHF- daily weights, fluid restrict 4. Resp: encourage incentive spirometry and monitor for infection, Duonebs ordered- patient with dry cough, will discuss the possibility of changing ARB to alternative BP med with renal as this may contributing to his cough 5. Renal: s/p bilat nephrectomies on PD at home, now on HD- renal consulted to assist in overall management -c/u Sevelamer, Cinacalcet, Calcium Acetate 6. GI ppx: omeprazole, bowel regimen to prevent constipation 7. DVT ppx: heparin 8. Pain: Pamelor changed to 10mg BID, c/u ibuprofen as well for left toe pain -c/u Tylenol 1000mg TID 9. Endo: patient with thyroid nodules on recent CT, TSH low end of normal, FT4 WNL and Ft3 close to normal- thyroid US showeing, "Bilateral nonspecific hypoechoic and mixed complex nodules." patient can f/u at the [facility] for further work-up 10. Infectious- recent MRI negative for osteomyelitis of toe, however will repeat to make sure there is no bone infection- CRP trending slightly up-image results pending 11. Dispo: TBD Allergies Coded Allergies: amlodipine (Verified Allergy, Unknown, 05/01/19) indomethacin (Verified Allergy, Unknown, 05/01/19) nifedipine (Verified Allergy, Unknown, 05/01/19) hydralazine (Verified Adverse Reaction, Mild, ELEVATED BP, 05/01/19) Vital Signs Vital Signs Date Time Temp Pulse Resp B/P (MAP) Pulse Ox O2 Delivery O2 Flow Rate FiO2 05/18/19 11:44 168/79 05/18/19 08:51 68 05/18/19 05:50 98.6 18 95 Room Air Laboratory Data CBC/BMP Laboratory Tests 05/18/19 07:45 Labs 24H Laboratory Tests 2 05/18/19 07:45: Immature Granulocyte % (Auto) 0.2, Neutrophils (%) (Auto) 39.8, Lymphocytes (%) (Auto) 32.1, Monocytes (%) (Auto) 12.0H, Eosinophils (%) (Auto) 15.5H, Basophils (%) (Auto) 0.4, Neutrophils # (Auto) 1.8, Lymphocytes # (Auto) 1.5, Monocytes # (Auto) 0.6, Eosinophils # (Auto) 0.7H, Basophils # (Auto) 0.0, Nucleated Red Blood Cells % (auto) 0.0, Anion Gap 7L, Glomerular Filtration Rate 13.6L, Calcium Level 9.3 Current Medications Current Medications Current Medications Medications (Trade) Dose Ordered Sig/Damien Route PRN Reason Start Time Stop Time Status Last Admin Dose Admin Acetaminophen (Tylenol Tab) 650 mg Q4HP PRN PO fever/MILD PAIN (PS 1-4) 05/11/19 14:15 05/11/19 17:22 DC Acetaminophen (Tylenol Tab) 1,000 mg TID PO 05/11/19 21:00 05/18/19 08:51 Albuterol/ Ipratropium (Duoneb (Ipr 0.5mg/Alb 2.5mg)) 3 ml Q2HP PRN NEB SOB/WHEEZING 05/14/19 10:00 05/18/19 03:51 Albuterol/ Ipratropium (Duoneb (Ipr 0.5mg/Alb 2.5mg)) 3 ml RTID NEB 05/14/19 14:00 05/18/19 08:54 Albuterol/ Ipratropium (Duoneb (Ipr 0.5mg/Alb 2.5mg)) 3 ml TID NEB 05/11/19 16:00 05/14/19 10:00 DC 05/14/19 07:22 Aspirin (Ecotrin) 81 mg DAILY PO 05/12/19 09:00 05/18/19 08:50 Calcium Acetate (Phoslo) 667 mg WM PO 05/11/19 18:00 05/18/19 11:42 Carvedilol (COReg) 12.5 mg BID@0800,2100 PO 05/15/19 09:01 05/16/19 09:44 DC 05/16/19 06:44 Carvedilol (COReg) 12.5 mg Q12H PO 05/15/19 08:00 05/15/19 09:01 DC 05/15/19 08:54 Carvedilol (COReg) 25 mg BID@0800,2100 PO 05/16/19 21:00 05/18/19 08:51 Cinacalcet (Sensipar) 30 mg DAILY PO 05/12/19 09:00 05/18/19 08:51 Clonidine HCl (Axtmzgdv-Hth-1) 1 ea We@09 TOP 05/16/19 09:00 05/16/19 08:14 Darbepoetin Irving (Aranesp (Dialysis Use)) 200 mcg HD IV 05/12/19 23:45 Docusate Sodium (Colace) 100 mg BID PO 05/11/19 21:00 05/18/19 08:50 Heparin Sodium (Porcine) (Heparin) 5,000 units Q8H SC 05/11/19 14:00 05/18/19 05:35 Ibuprofen (Advil) 400 mg TID PO 05/16/19 16:30 05/18/19 08:50 Isosorbide Mononitrate (Imdur) 120 mg DAILY PO 05/12/19 09:00 05/18/19 11:44 Losartan Potassium (Cozaar) 50 mg QHS PO 05/11/19 21:00 05/15/19 10:13 DC 05/14/19 20:35 Magnesium Hydroxide (Milk Of Magnesia) 30 ml DAILYPRN PRN PO CONSTIPATION 05/11/19 14:15 Metoprolol Succinate (TopROL XL) 100 mg QHS PO 05/11/19 21:00 05/14/19 22:29 DC 05/14/19 20:35 Multivitamins (Theragram-M) 1 tab DAILY PO 05/12/19 09:00 05/18/19 08:50 Mupirocin (Bactroban 2% Ointment) apply to top of nail ... BID TOP 05/11/19 21:00 05/16/19 16:34 DC 05/16/19 08:12 Nitroglycerin (Nitrobid 2%) 1 gm BID TOP 05/11/19 21:00 05/11/19 17:43 DC Nitroglycerin (Nitrostat (1/ 150)) 0.4 mg Q5MP PRN SL CHEST PAIN 05/11/19 14:15 Nortriptyline HCl (Pamelor) 10 mg BID PO 05/16/19 21:00 05/17/19 19:03 DC 05/17/19 09:06 Nortriptyline HCl (Pamelor) 10 mg BID@0700,1900 PO 05/17/19 19:00 05/18/19 11:47 Nortriptyline HCl (Pamelor) 10 mg QHS PO 05/11/19 21:00 05/16/19 15:44 DC 05/15/19 20:26 Omeprazole (PriLOSEC) 20 mg DAILY PO 05/12/19 09:00 05/18/19 08:50 Oxycodone HCl (Roxicodone, Oxyir) 2.5 mg Q6HP PRN PO PAIN 05/11/19 18:30 05/15/19 12:43 DC 05/14/19 08:15 Oxycodone HCl (Roxicodone, Oxyir) 2.5 mg Q8H PRN PO PAIN 05/11/19 17:30 05/11/19 18:17 DC Oxycodone HCl (Roxicodone, Oxyir) 5 mg Q6HP PRN PO PAIN 05/11/19 14:15 05/11/19 17:22 DC Patient Own Medication (Patient'S Own Med) paricalcitol 1mcg tab- take 2 t... DAILY PO 05/12/19 09:00 05/11/19 15:42 DC Potassium Chloride (Micro-K Extencaps) 20 meq DAILY PO 05/11/19 09:00 05/14/19 09:26 DC 05/14/19 07:42 Senna (Senokot) 1 tab QHS PO 05/11/19 21:00 05/17/19 22:38 Sevelamer Carbonate (Renvela) 800 mg WM PO 05/11/19 18:00 05/18/19 11:42 Vitamin D (Vitamin D) 2,000 units DAILY PO 05/11/19 09:00 05/18/19 08:50 JEFFERY CANTU MD May 18, 2019 13:50
--- NOTE | 2019-05-18 13:50 | REP ---
MRI LEFT FOOT WITHOUT CONTRAST: HISTORY: Rule out osteomyelitis of the left toe. Progressive pain. Comparison MRI study, May 11, 2019. No comparison radiographs. TECHNIQUE: Axial, coronal, and sagittal imaging planes are utilized. T1- and T2-weighted scans were included with and without fat saturation. MRI FINDINGS: There is a T2-weighted hyperintense marrow edema pattern in the distal phalanx of the great toe again noted on inversion recovery and to a lesser extent T2-weighted scans. No cortical disruption or low T1 signal intensity is appreciated. There is some soft tissue swelling about the medial aspect. The findings are quite similar to the May 11, 2019 prior study. There is no definite evidence to suggest osteomyelitis. Electronically Signed by Daniel Williamson MD 05/18/2019 02:18 P
[2019-05-18 14:00] VITALS: BP 150/78
[2019-05-18 20:00] VITALS: BP 196/74
[2019-05-18] MEDS: SENNA 8.6 MG TAB (SENOKOT) PO SCH (20:58)
[2019-05-19] MEDS: HEPARIN SOD (PORCINE) 5000 UNITS/ML VIAL (J1644 PER 1000UNITS) SC SCH ×3 (05:47→21:08)
[2019-05-19 06:00] VITALS: BP 162/76
[2019-05-19] MEDS: IPRATROPIUM 0.5MG/ALBUTEROL 2.5MG INH SOL UD 3ML (DUONEB)(J7620) NEB SCH ×3 (07:47→20:04)
[2019-05-19] MEDS: VITAMIN D 1,000 INTERNATIONAL UNITS TABLET PO SCH (08:30)
[2019-05-19] MEDS: DOCUSATE SODIUM 100 MG CAP PO SCH ×2 (08:30→21:08)
[2019-05-19] MEDS: (RENVELA) SEVELAMER **CARBONate** 800 MG TAB PO SCH ×3 (08:30→17:25)
[2019-05-19] MEDS: CINACALCET 30 MG TAB (SENSIPAR) PO SCH (08:31)
[2019-05-19] MEDS: IBUPROFEN 400 MG TAB PO SCH ×3 (08:31→21:08)
[2019-05-19] MEDS: NORTRIPTYLINE 10 MG CAP PO SCH ×2 (08:32→21:09)
[2019-05-19] MEDS: ACETAMINOPHEN 500 MG TAB PO SCH ×3 (08:32→21:08)
[2019-05-19] MEDS: OMEPRAZOLE 20 MG CAP PO SCH (08:32)
[2019-05-19] MEDS: MULTIVITAMINS/MINERALS THERAP 1 TAB PO SCH (08:32)
[2019-05-19] MEDS: CALCIUM ACETATE 667 MG GELCAP PO SCH ×3 (08:32→17:25)
[2019-05-19] MEDS: ASPIRIN 81 MG ENTERIC TAB PO SCH (08:32)
[2019-05-19] MEDS: ISOSORBIDE MON. (IMDUR) 60 MG XR TAB PO SCH (08:36)
[2019-05-19] MEDS: CARVedilol 12.5 MG TAB PO SCH ×2 (08:37→21:09)
[2019-05-19] MEDS: REMEDY PHYTOPLEX Z-GUARD PASTE 113GM TUBE (FROM STOREROOM PRODUCT) TOP SCH ×3 (08:38→21:00)
[2019-05-19 09:17] LABS: CALCIUM LEVEL 9.3 MG/DL (8.8-10.2); CREATININE FOR GFR 7.44 MG/DL (0.70-1.30); GLOMERULAR FILTRATION RATE 9.2 (>42); POTASSIUM SERUM 4.5 MEQ/L (3.5-5.1)
[2019-05-19] MEDS: minoxidiL 2.5 MG TAB PO SCH ×2 (12:13→21:09)
[2019-05-19] MEDS ORDERED: HEPARIN 1,000 UNITS/ML 10ML VIAL (FOR RADIOLOGY& DIALYSIS ONLY)(J1644-10) IV ONE (12:15)
[2019-05-19 20:02] VITALS: BP 160/73
[2019-05-19] MEDS: SENNA 8.6 MG TAB (SENOKOT) PO SCH (21:08)
[2019-05-19] MEDS: guaiFENesin ER 600 MG TAB PO SCH (22:47)
[2019-05-19] MEDS: IPRATROPIUM 0.5MG/ALBUTEROL 2.5MG INH SOL UD 3ML (DUONEB)(J7620) NEB PRN (23:24)
[2019-05-20] MEDS: HEPARIN SOD (PORCINE) 5000 UNITS/ML VIAL (J1644 PER 1000UNITS) SC SCH ×3 (05:45→21:00)
[2019-05-20 06:00] VITALS: BP 147/67
[2019-05-20] MEDS: IPRATROPIUM 0.5MG/ALBUTEROL 2.5MG INH SOL UD 3ML (DUONEB)(J7620) NEB SCH ×3 (08:22→18:24)
[2019-05-20] MEDS: REMEDY PHYTOPLEX Z-GUARD PASTE 113GM TUBE (FROM STOREROOM PRODUCT) TOP SCH ×3 (09:00→21:00)
--- NOTE | 2019-05-20 09:18 | IPN ---
DATE OF SERVICE: 05/19/2019 SUBJECTIVE: Mauricio was seen and examined this morning in the rehabilitation unit, doing his physical therapy and is scheduled for hemodialysis this afternoon. His blood pressures have been uncontrolled, but he denies any acute events or complaints. Denies any edema or shortness of breath. Vital signs: Temperature 97.4, pulse 66, respiratory rate 18, blood pressure 162/76, saturating 100% on room air. Intake yesterday was 1100. Dialysis today removed 3 liters. Weight in the bed scale today was 83.5 kg. General: The patient was seen in the rehabilitation unit doing exercises and later in the dialysis unit. Awake, alert, oriented times three. is present. Extraocular muscles are intact. Sclerae are anicteric. Tongue is moist. Neck is supple. Jugular veins are not elevated. Heart sounds are regular, S1, S2. There is absolutely no edema of the lower nor upper extremities. Lungs are clear to auscultation bilaterally. Equal air entry. No rale or rhonchi. There is a tunneled hemodialysis catheter present in the left chest wall that is in use. Abdomen is soft and nontender. There are bowel sounds. His left big toe was not examined today. Neurologic: He is oriented times three, cooperative with physical exam, interactive, and conversational, at baseline mentation. Skin: Normal temperature and turgor. LABORATORIES: White count 4.6, hemoglobin 9.3, platelet 174. Sodium 133, potassium 4.5, bicarbonate 25. INPATIENT MEDICATIONS: Reviewed by me. He was started on minoxidil 2.5 mg by mouth twice daily. Remainder of medications are unchanged from prior. PROBLEMS: 1. End-stage renal disease in this patient who is anuric/anephric. Presently in the rehabilitation unit. He is receiving hemodialysis. However, as an outpatient, he will revert back to peritoneal dialysis, and we will have his peritoneal dialysis (PD) catheter flushed while he is in-house. He is tolerating hemodialysis treatments well. Electrolytes are acceptable, and fluid status is very well optimized. He is dialyzed today with 3 liters of fluid removed. 2. Hypertension with end-stage renal disease. Blood pressures have been uncontrolled. I started him on minoxidil 2.5 mg twice daily, and he has previously taken this medicine in the past, as well. 3. Anemia in end-stage renal disease. He continues on Aranesp, and his hemoglobin is suboptimal but stable in the 9s. 4. Secondary hyperparathyroidism of renal origin. Calcium and phosphorus levels are acceptable, and parathyroid hormone level is pending. 5. Chronic combined heart failure. Fluid status is very well optimized and is regulated via his dialysis treatments. Continue 1800 mL fluid restriction.
[2019-05-20] MEDS: MULTIVITAMINS/MINERALS THERAP 1 TAB PO SCH (09:38)
[2019-05-20] MEDS: DOCUSATE SODIUM 100 MG CAP PO SCH ×2 (09:38→20:59)
[2019-05-20] MEDS: ISOSORBIDE MON. (IMDUR) 60 MG XR TAB PO SCH (09:38)
[2019-05-20] MEDS: OMEPRAZOLE 20 MG CAP PO SCH (09:38)
[2019-05-20] MEDS: guaiFENesin ER 600 MG TAB PO SCH ×2 (09:39→20:58)
[2019-05-20] MEDS: VITAMIN D 1,000 INTERNATIONAL UNITS TABLET PO SCH (09:39)
[2019-05-20] MEDS: minoxidiL 2.5 MG TAB PO SCH ×2 (09:39→20:59)
[2019-05-20] MEDS: CARVedilol 12.5 MG TAB PO SCH ×2 (09:39→20:59)
[2019-05-20] MEDS: CINACALCET 30 MG TAB (SENSIPAR) PO SCH (09:39)
[2019-05-20] MEDS: NORTRIPTYLINE 10 MG CAP PO SCH ×2 (09:40→20:59)
[2019-05-20] MEDS: ASPIRIN 81 MG ENTERIC TAB PO SCH (09:40)
[2019-05-20] MEDS: IBUPROFEN 400 MG TAB PO SCH ×3 (09:40→23:12)
[2019-05-20] MEDS: CALCIUM ACETATE 667 MG GELCAP PO SCH ×3 (09:40→16:52)
[2019-05-20] MEDS: (RENVELA) SEVELAMER **CARBONate** 800 MG TAB PO SCH ×3 (09:40→16:53)
[2019-05-20] MEDS: ACETAMINOPHEN 500 MG TAB PO SCH ×3 (09:41→23:12)
[2019-05-20 14:00] VITALS: BP 135/61
[2019-05-20 20:22] VITALS: BP 129/60
[2019-05-20] MEDS: SENNA 8.6 MG TAB (SENOKOT) PO SCH (20:59)
[2019-05-21 06:00] VITALS: BP 135/63
[2019-05-21] MEDS: HEPARIN SOD (PORCINE) 5000 UNITS/ML VIAL (J1644 PER 1000UNITS) SC SCH ×3 (06:33→22:00)
[2019-05-21 07:37] LABS: BASO % 0.2 % (0.0-1.0); EOS # 0.7 10^3/uL (0.0-0.5); EOS % 12.4 % (0.0-3.0); HEMATOCRIT 26.2 % (42.0-52.0); HEMOGLOBIN 8.9 g/dl (13.5-17.5); LYMPH # 2.3 10^3/uL (1.5-5.0); LYMPH % 41.9 % (24.0-44.0); MEAN CORPUSCULAR HEMOGLOBIN 32.2 pg (27.0-33.0); MEAN CORPUSCULAR VOLUME 94.9 fl (80.0-96.0); MONO # 0.4 10^3/uL (0.0-0.8); NEUTROPHILS % 37.1 % (36.0-66.0); PLATELET COUNT, AUTOMATED 231 10^3/uL (150-450); RED BLOOD COUNT 2.76 10^6/uL (4.30-6.10); WHITE BLOOD COUNT 5.5 10^3/uL (4.0-10.0)
[2019-05-21] MEDS: IPRATROPIUM 0.5MG/ALBUTEROL 2.5MG INH SOL UD 3ML (DUONEB)(J7620) NEB SCH ×3 (07:44→20:00)
[2019-05-21 07:50] LABS: CALCIUM LEVEL 8.9 MG/DL (8.8-10.2); CREATININE FOR GFR 7.25 MG/DL (0.70-1.30); GLOMERULAR FILTRATION RATE 9.5 (>42)
[2019-05-21] MEDS: CALCIUM ACETATE 667 MG GELCAP PO SCH ×3 (08:00→16:46)
[2019-05-21] MEDS: (RENVELA) SEVELAMER **CARBONate** 800 MG TAB PO SCH ×3 (08:00→16:46)
[2019-05-21] MEDS: REMEDY PHYTOPLEX Z-GUARD PASTE 113GM TUBE (FROM STOREROOM PRODUCT) TOP SCH ×3 (09:00→21:00)
[2019-05-21] MEDS: VITAMIN D 1,000 INTERNATIONAL UNITS TABLET PO SCH (09:02)
[2019-05-21] MEDS: DOCUSATE SODIUM 100 MG CAP PO SCH ×2 (09:03→21:23)
[2019-05-21] MEDS: NORTRIPTYLINE 10 MG CAP PO SCH (09:03)
[2019-05-21] MEDS: OMEPRAZOLE 20 MG CAP PO SCH (09:03)
[2019-05-21] MEDS: IBUPROFEN 400 MG TAB PO SCH ×3 (09:03→21:22)
[2019-05-21] MEDS: MULTIVITAMINS/MINERALS THERAP 1 TAB PO SCH (09:03)
[2019-05-21] MEDS: ACETAMINOPHEN 500 MG TAB PO SCH ×3 (09:03→21:23)
[2019-05-21] MEDS: minoxidiL 2.5 MG TAB PO SCH ×2 (09:03→21:24)
[2019-05-21] MEDS: ASPIRIN 81 MG ENTERIC TAB PO SCH (09:04)
[2019-05-21] MEDS: CARVedilol 12.5 MG TAB PO SCH ×2 (09:04→21:24)
[2019-05-21] MEDS: guaiFENesin ER 600 MG TAB PO SCH ×2 (09:04→21:22)
[2019-05-21] MEDS: CINACALCET 30 MG TAB (SENSIPAR) PO SCH (09:05)
[2019-05-21] MEDS: ISOSORBIDE MON. (IMDUR) 60 MG XR TAB PO SCH (10:43)
[2019-05-21] MEDS: IPRATROPIUM 0.5MG/ALBUTEROL 2.5MG INH SOL UD 3ML (DUONEB)(J7620) NEB PRN ×2 (11:15→18:05)
--- NOTE | 2019-05-21 12:34 | IPNPDOC ---
PM&R Progress Note DATE OF SERVICE: May 21, 2019 Department Chair Progress Note Subjective: Patient seen this morning stating he does not want to take Pamelor anymore stating he would rather live with some pain than have his faculties compromised. REVIEW OF SYSTEMS: The following is a completed review of systems and has been reviewed. Review of systems otherwise unremarkable. PAIN: Patient self reports left toe pain EYES: No recent vision changes EARS, NOSE, & THROAT: No throat pain, or dysphagia, or rhinorrhea CARDIOVASCULAR: Denies chest pain or palpitations PULMONARY: Denies shortness of breath GASTROINTESTINAL: Denies constipation/diarrhea GENITOURINARY: +anuric MUSCULOSKELETAL: generalized weakness NEUROLOGICAL: +intermittent confusion HEMATOLOGICAL: denies easy bruising SKIN: denies rash PSYCHIATRIC: Unremarkable All other review of systems found to be negative. PHYSICAL EXAMINATION: VITAL SIGNS: Please see below. GENERAL: Pleasant and cooperative. No acute distress. HEENT: PERRL. Extraocular movements intact. Clear conjunctiva CARDIOVASCULAR: Regular rate and rhythm. +systolic murmurs, no rubs, or gallops LUNGS: Clear to auscultation bilaterally. No wheezes. No rhonchi ABDOMEN: Soft, nontender, nondistended. Positive bowel sounds. Normal active bowel sounds NEUROLOGICAL: Alert and oriented to person, place, not time, Cranial nerves II through XII grossly intact. Sensation grossly intact in all 4 limbs EXTREMITIES: 5\\5 strength bilateral upper extremities. 4+\\5 strength right lower extremity.4+/5 strength in left lower extremity except 3/5 ankle Df and 2/5 EHL SKIN: left chest wall permacath, left toe D1 with minimal swelling, no notable erythema or drainage, tip of toe appearing necrotic, nail bed does not appear infected ASSESSMENT:79-year-old M with past medical history of ESRD who presents status post encephalopathy in the setting of like uremia. PLAN: 1. Rehab-PT/OT advance gait training and ADl management, dynamic balance training, strengthen/stretch/maintain ROM bilat UE and LE - COUNSELING DEPARTMENT CHAIR for cognitive eval 2. Neuro: patient admitted with encephalopathy, etiology possibly due to uremia in setting of ESRD continuing to affect his mobility and ADL management -patient continues to fluctuate in mentation 3.Cardiac: HTN c/u clonidine patch, COreg and isosorbide mononitrate- Losartan d/c's deferring to renal for BP management-recs appreciated -CAD c/u ASa and Coreg (changed from metoprolol)- medicine consulted to assist in management -chronic systolic/diastolic CHF- daily weights, fluid restrict 4. Resp: encourage incentive spirometry and monitor for infection, Duonebs ordered- patient with dry cough, will discuss the possibility of changing ARB to alternative BP med with renal as this may contributing to his cough 5. Renal: s/p bilat nephrectomies on PD at home, now on HD- renal consulted to assist in overall management -c/u Sevelamer, Cinacalcet, Calcium Acetate 6. GI ppx: omeprazole, bowel regimen to prevent constipation 7. DVT ppx: heparin 8. Pain: Patient requesting to stop Pamelor as he is concerned it might be affecting his cognition and that sometimes he feels dizzy - c/u ibuprofen as well for left toe pain -c/u Tylenol 1000mg TID 9. Endo: patient with thyroid nodules on recent CT, TSH low end of normal, FT4 WNL and Ft3 close to normal- thyroid US showeing, "Bilateral nonspecific hypoechoic and mixed complex nodules." patient can f/u at the [facility] for further work-up 10. Infectious- recent MRI negative for osteomyelitis of toe, repeat MRI 05-18-19 also negative for osteomyelitis -will need to f/u with wound care clinic 11. Dispo: 05-23-19 to home, progressing towards goals Allergies Coded Allergies: amlodipine (Verified Allergy, Unknown, 05/01/19) indomethacin (Verified Allergy, Unknown, 05/01/19) nifedipine (Verified Allergy, Unknown, 05/01/19) hydralazine (Verified Adverse Reaction, Mild, ELEVATED BP, 05/01/19) Vital Signs Vital Signs Date Time Temp Pulse Resp B/P (MAP) Pulse Ox O2 Delivery O2 Flow Rate FiO2 05/21/19 10:43 135/63 05/21/19 09:04 66 05/21/19 06:00 96.6 18 97 Room Air Laboratory Data CBC/BMP Laboratory Tests 05/21/19 06:57 Labs 24H Laboratory Tests 2 05/21/19 06:57: Immature Granulocyte % (Auto) 0.4, Neutrophils (%) (Auto) 37.1, Lymphocytes (%) (Auto) 41.9, Monocytes (%) (Auto) 8.0H, Eosinophils (%) (Auto) 12.4H, Basophils (%) (Auto) 0.2, Neutrophils # (Auto) 2.0, Lymphocytes # (Auto) 2.3, Monocytes # (Auto) 0.4, Eosinophils # (Auto) 0.7H, Basophils # (Auto) 0.0, Nucleated Red Blood Cells % (auto) 0.0, Anion Gap 7L, Glomerular Filtration Rate 9.5L, Calcium Level 8.9 Current Medications Current Medications Current Medications Medications (Trade) Dose Ordered Sig/Damien Route PRN Reason Start Time Stop Time Status Last Admin Dose Admin Acetaminophen (Tylenol Tab) 650 mg Q4HP PRN PO fever/MILD PAIN (PS 1-4) 05/11/19 14:15 05/11/19 17:22 DC Acetaminophen (Tylenol Tab) 1,000 mg TID PO 05/11/19 21:00 05/21/19 09:03 Albuterol/ Ipratropium (Duoneb (Ipr 0.5mg/Alb 2.5mg)) 3 ml Q2HP PRN NEB SOB/WHEEZING 05/14/19 10:00 05/21/19 11:15 Albuterol/ Ipratropium (Duoneb (Ipr 0.5mg/Alb 2.5mg)) 3 ml RTID NEB 05/14/19 14:00 05/20/19 18:24 Albuterol/ Ipratropium (Duoneb (Ipr 0.5mg/Alb 2.5mg)) 3 ml TID NEB 05/11/19 16:00 05/14/19 10:00 DC 05/14/19 07:22 Aspirin (Ecotrin) 81 mg DAILY PO 05/12/19 09:00 05/21/19 09:04 Calcium Acetate (Phoslo) 667 mg WM PO 05/11/19 18:00 05/21/19 11:28 Carvedilol (COReg) 12.5 mg BID@0800,2100 PO 05/15/19 09:01 05/16/19 09:44 DC 05/16/19 06:44 Carvedilol (COReg) 12.5 mg Q12H PO 05/15/19 08:00 05/15/19 09:01 DC 05/15/19 08:54 Carvedilol (COReg) 25 mg BID@0800,2100 PO 05/16/19 21:00 05/21/19 09:04 Cinacalcet (Sensipar) 30 mg DAILY PO 05/12/19 09:00 05/21/19 09:05 Clonidine HCl (Pmdzebqc-Nja-2) 1 ea We@09 TOP 05/16/19 09:00 05/16/19 08:14 Darbepoetin Irving (Aranesp (Dialysis Use)) 200 mcg HD IV 05/12/19 23:45 Docusate Sodium (Colace) 100 mg BID PO 05/11/19 21:00 05/21/19 09:03 Guaifenesin (Mucinex Tab Er) 1,200 mg BID PO 05/19/19 21:00 05/21/19 09:04 Heparin Sodium (Porcine) (Heparin) 5,000 units Q8H SC 05/11/19 14:00 05/21/19 06:33 Ibuprofen (Advil) 400 mg TID PO 05/16/19 16:30 05/18/19 13:36 DC 05/18/19 08:50 Ibuprofen (Advil) 400 mg TID PO 05/18/19 16:00 05/21/19 09:03 Isosorbide Mononitrate (Imdur) 120 mg DAILY PO 05/12/19 09:00 05/21/19 10:43 Losartan Potassium (Cozaar) 50 mg QHS PO 05/11/19 21:00 05/15/19 10:13 DC 05/14/19 20:35 Magnesium Hydroxide (Milk Of Magnesia) 30 ml DAILYPRN PRN PO CONSTIPATION 05/11/19 14:15 Metoprolol Succinate (TopROL XL) 100 mg QHS PO 05/11/19 21:00 05/14/19 22:29 DC 05/14/19 20:35 Minoxidil (Loniten) 2.5 mg BID PO 05/19/19 09:00 05/21/19 09:03 Multivitamins (Theragram-M) 1 tab DAILY PO 05/12/19 09:00 05/21/19 09:03 Mupirocin (Bactroban 2% Ointment) apply to top of nail ... BID TOP 05/11/19 21:00 05/16/19 16:34 DC 05/16/19 08:12 Nitroglycerin (Nitrobid 2%) 1 gm BID TOP 05/11/19 21:00 05/11/19 17:43 DC Nitroglycerin (Nitrostat (1/ 150)) 0.4 mg Q5MP PRN SL CHEST PAIN 05/11/19 14:15 Nortriptyline HCl (Pamelor) 10 mg BID PO 05/16/19 21:00 05/17/19 19:03 DC 05/17/19 09:06 Nortriptyline HCl (Pamelor) 10 mg BID PO 05/18/19 21:00 05/21/19 10:15 DC 05/21/19 09:03 Nortriptyline HCl (Pamelor) 10 mg BID@0700,1900 PO 05/17/19 19:00 05/18/19 13:56 DC 05/18/19 11:47 Nortriptyline HCl (Pamelor) 10 mg QHS PO 05/11/19 21:00 05/16/19 15:44 DC 05/15/19 20:26 Nortriptyline HCl (Pamelor) 25 mg QHS PO 05/21/19 21:00 Omeprazole (PriLOSEC) 20 mg DAILY PO 05/12/19 09:00 05/21/19 09:03 Oxycodone HCl (Roxicodone, Oxyir) 2.5 mg Q6HP PRN PO PAIN 05/11/19 18:30 05/15/19 12:43 DC 05/14/19 08:15 Oxycodone HCl (Roxicodone, Oxyir) 2.5 mg Q8H PRN PO PAIN 05/11/19 17:30 05/11/19 18:17 DC Oxycodone HCl (Roxicodone, Oxyir) 5 mg Q6HP PRN PO PAIN 05/11/19 14:15 05/11/19 17:22 DC Patient Own Medication (Patient'S Own Med) paricalcitol 1mcg tab- take 2 t... DAILY PO 05/12/19 09:00 05/11/19 15:42 DC Potassium Chloride (Micro-K Extencaps) 20 meq DAILY PO 05/11/19 09:00 05/14/19 09:26 DC 05/14/19 07:42 Senna (Senokot) 1 tab QHS PO 05/11/19 21:00 05/20/19 20:59 Sevelamer Carbonate (Renvela) 800 mg WM PO 05/11/19 18:00 05/21/19 11:27 Vitamin D (Vitamin D) 2,000 units DAILY PO 05/11/19 09:00 05/21/19 09:02 JEFFERY CANTU MD May 21, 2019 12:34
[2019-05-21 14:00] VITALS: BP 133/60
--- NOTE | 2019-05-21 18:30 | IPN ---
DATE: 05/20/2019 SUBJECTIVE: Mauricio is seen and examined this morning at the bedside. Reports his rehabilitation is going well. Blood pressures are significantly improved with the addition of minoxidil. He was dialyzed yesterday with 3 liters of fluid removed and no issues reported. Temperature 99.1, pulse 78, respiratory rate 18, blood pressure 135/61, saturating 98% on room air. Intake yesterday was 740 which may not have been fully recorded. Dialysis removed 3 liters. Weight in the bed scale today is 80.5 kg. General: The patient is seen lying in bed awake, alert, oriented. is present at the bedside. He is in no apparent distress. Extraocular muscles are intact. Sclerae are anicteric. Tongue is moist. Neck is supple. Jugular veins are not elevated. Heart sounds are regular, S1, S2. There is absolutely no edema in the lower nor upper extremities. Lungs are clear to auscultation bilaterally. Equal air entry. No rale or rhonchi. There is a tunneled hemodialysis catheter present in the left chest wall. Abdomen is soft and nontender. There are bowel sounds. His left foot was not examined today. Neurologic: He is oriented times three, interactive and at baseline mentation. Skin: Normal temperature and turgor. LABORATORY DATA: White count 4.6, hemoglobin 9.3, PTH is pending, potassium 4.5, BUN 21. INPATIENT MEDICATIONS: Reviewed by myself. Primary team started him on Mucinex twice daily. Remainder of medications are unchanged from prior. PROBLEMS: 1. End-stage renal disease. The patient is presently receiving three times weekly hemodialysis in the rehabilitation unit. However, as an outpatient he will revert back to peritoneal dialysis. We will have the peritoneal dialysis trained nurse flush his PD catheter on Tuesday while he is in-house to make sure it is patent prior to discharge. He is tolerating his hemodialysis dialysis treatments well. 3 liters were removed yesterday. Electrolytes are acceptable. Fluid status is very well optimized. 2. Hypertension with end-stage renal disease. Blood pressure control has significantly improved since minoxidil 2.5 mg twice a day was added. No other changes are being made to his regimen today. 3. Anemia in end-stage renal disease. He continues on Aranesp. Hemoglobin is suboptimal but stable in the 9s. 4. Secondary hyperparathyroidism of renal origin. Calcium and phosphorus levels have been acceptable. Parathyroid hormone level is pending. 5. Chronic combined congestive heart failure. Fluid status is well-compensated and is regulated via his hemodialysis treatments. Continue 1800 mL fluid restriction.
[2019-05-21 20:00] VITALS: BP 144/70
--- NOTE | 2019-05-21 20:04 | IPNPDOC ---
Text Note Date of Service The patient was seen on 05/21/19. NOTE This note pertains to the nephrology service with Derek Forman DO supervising my work. Please see E attestation below. SUBJECTIVE: Pt was seen at bedside this morning directly after his peritoneal dialysis catheter had been flushed. He states that his discharge from the acute rehab unit has been scheduled to follow his next hemodialysis treatment. He has no further complaints at this time. OBJECTIVE: VITALS: See below. GENERAL: Pt appears stated age and is lying in bed in no acute distress. HEENT: EOMI. Sclera are not icteric. Neck is supple. CARDIOVASCULAR: Regular rate and rhythm. Normal S1 & S2. No edema present in lower nor upper extremities b/l. PULMONARY: Lungs are clear to auscultation b/l. No wheezes, rales, or rhonchi. Tunneled hemodialysis catheter present in left chest wall. ABDOMEN: No rashes, bumps, or bruises. Soft and nontender. Bowel sounds present. EXTREMITIES: Left foot was not examined today. INTEGUMENTARY: Normal temperature and turgor. PSYCHOLOGICAL: Pt is calm and cooperative. He answers questions appropriately. Insight is good. INTAKE/OUTPUT: Intake was noted to be 750 mL yesterday. Pt is anuric. Weight in the bed scale today is 81.5 kg (up 1kg). Hemodialysis is planned for tomorrow. LABORATORY DATA: WBC 5.5, hemoglobin 8.9, sodium 133, potassium 4.0, BUN 19, creatinine 7.25. ASSESSMENT/PLAN: 1. End-stage renal disease - Pt has been receiving hemodialysis (HD) three times per week in the rehabilitation unit, but wishes to restart his peritoneal dialysis (PD) upon discharge. Pt compliance with PD has been good in the past; we are happy to restart it for him. A PD-trained nurse flushed his PD catheter this afternoon an d it was patent. - Pt has been tolerating hemodialysis dialysis treatments well. He will undergo one more round and then have his HD catheter removed tomorrow before discharge. From a nephrology standpoint, pt may be discharged directly afterwards. - Electrolytes are acceptable. Fluid status is optimized. - Pt will continue to follow up in the nephrology office. 2. Hypertension in end-stage renal disease - Blood pressure is stable at an acceptable level on minoxidil; no adjustment is necessary. 3. Anemia in end-stage renal disease - Hemoglobin remains suboptimal but generally stable in the 9s. It was 8.9 this morning. - Continue Aranesp. 4. Secondary hyperparathyroidism of renal origin - Calcium, phosphorus, and parathyroid hormone levels have been acceptable; no adjustment is necessary. 5. Chronic combined congestive heart failure - Fluid status is well-compensated and has responded well to HD. - Continue 1800 mL fluid restriction. VS,Fishbone, I+O VS, Fishbone, I+O Laboratory Tests 05/21/19 06:57 Vital Signs Date Time Temp Pulse Resp B/P (MAP) Pulse Ox O2 Delivery O2 Flow Rate FiO2 05/21/19 14:00 97.7 68 18 133/60 (84) 94 Room Air I&O- Last 24 Hours up to 6 AM 05/21/19 06:00 Intake Total 750 ml Balance 750 ml GME ATTESTATION GME ATTESTATION My faculty preceptor for this patient encounter was physically present during the encounter and was fully available. All aspects of the patient interview, examination, medical decision making process, and medical care plan development were reviewed and approved by the faculty preceptor. The faculty preceptor is aware and concurs with the plan as stated in the body of this note and will attest to such by his/her cosignature. ZEKE BARNHART OMS-III May 21, 2019 20:04
[2019-05-21] MEDS ORDERED: NORTRIPTYLINE 25 MG CAP PO SCH (21:00)
[2019-05-21] MEDS: SENNA 8.6 MG TAB (SENOKOT) PO SCH (21:22)
[2019-05-22] MEDS: HEPARIN SOD (PORCINE) 5000 UNITS/ML VIAL (J1644 PER 1000UNITS) SC SCH ×3 (05:07→21:27)
[2019-05-22 06:00] VITALS: BP 114/69
[2019-05-22] MEDS: IPRATROPIUM 0.5MG/ALBUTEROL 2.5MG INH SOL UD 3ML (DUONEB)(J7620) NEB SCH ×4 (07:38→20:00)
[2019-05-22] MEDS: DOCUSATE SODIUM 100 MG CAP PO SCH ×2 (08:01→21:18)
[2019-05-22] MEDS: CINACALCET 30 MG TAB (SENSIPAR) PO SCH (08:01)
[2019-05-22] MEDS: (RENVELA) SEVELAMER **CARBONate** 800 MG TAB PO SCH ×3 (08:01→17:56)
[2019-05-22] MEDS: ASPIRIN 81 MG ENTERIC TAB PO SCH (08:01)
[2019-05-22] MEDS: IBUPROFEN 400 MG TAB PO SCH ×3 (08:01→21:19)
[2019-05-22] MEDS: OMEPRAZOLE 20 MG CAP PO SCH (08:01)
[2019-05-22] MEDS: VITAMIN D 1,000 INTERNATIONAL UNITS TABLET PO SCH (08:01)
[2019-05-22] MEDS: guaiFENesin ER 600 MG TAB PO SCH ×2 (08:01→21:18)
[2019-05-22] MEDS: MULTIVITAMINS/MINERALS THERAP 1 TAB PO SCH (08:02)
[2019-05-22] MEDS: ACETAMINOPHEN 500 MG TAB PO SCH ×3 (08:02→21:20)
[2019-05-22] MEDS: CALCIUM ACETATE 667 MG GELCAP PO SCH ×3 (08:02→17:55)
[2019-05-22] MEDS: CARVedilol 12.5 MG TAB PO SCH (08:06)
[2019-05-22] MEDS: ISOSORBIDE MON. (IMDUR) 60 MG XR TAB PO SCH (08:06)
[2019-05-22] MEDS: REMEDY PHYTOPLEX Z-GUARD PASTE 113GM TUBE (FROM STOREROOM PRODUCT) TOP SCH ×3 (08:07→21:00)
[2019-05-22] MEDS: minoxidiL 2.5 MG TAB PO SCH (08:07)
[2019-05-22] MEDS ORDERED: HEPARIN 1,000 UNITS/ML 10ML VIAL (FOR RADIOLOGY& DIALYSIS ONLY)(J1644-10) XX ONE (12:00)
[2019-05-22] MEDS ORDERED: HEPARIN 1,000 UNITS/ML 10ML VIAL (FOR RADIOLOGY& DIALYSIS ONLY)(J1644-10) IV ONE (12:00)
[2019-05-22] MEDS ORDERED: ISOS60TA2 PO (12:05)
[2019-05-22] MEDS ORDERED: OMEP-218 PO (12:05)
[2019-05-22] MEDS ORDERED: RENV2TAB PO (12:05)
[2019-05-22] MEDS ORDERED: CARV12.5 PO (12:05)
[2019-05-22] MEDS ORDERED: ASPI81TAEC PO (12:05)
[2019-05-22] MEDS ORDERED: CLON0.1D3 TOP (12:05)
[2019-05-22] MEDS ORDERED: MINO2.5T PO (12:05)
[2019-05-22] MEDS ORDERED: CALC1CAP PO (12:05)
[2019-05-22] MEDS ORDERED: VITAD1000T PO (12:05)
[2019-05-22] MEDS ORDERED: CINA30TA5 PO (12:05)
[2019-05-22] MEDS ORDERED: ISOS120T7 PO (12:07)
[2019-05-22 13:57] VITALS: BP 104/74
--- NOTE | 2019-05-22 14:22 | REP ---
Clinical: Stroke-like symptoms. Comparison: 05/02/2019 . Findings: Age-related atrophy with periventricular leukomalacia and microvascular ischemic changes are appreciated. The ventricles and sulci are symmetric. Amin-white differentiation is maintained. There is no evidence for acute intracranial hemorrhage, mass/mass effect, pathology or infarction. No extra-axial fluid collection. Calvarium is intact. Paranasal sinuses and mastoid air cells are clear. Impression: Age related atrophy and microvascular ischemic changes. No acute intracranial hemorrhage, or mass/mass effect. Electronically Signed by Berny Vogt MD 05/22/2019 02:13 P
--- NOTE | 2019-05-22 17:06 | IPNPDOC ---
PM&R Progress Note DATE OF SERVICE: May 22, 2019 Database Coordinator Progress Note Subjective: Patient seen in dialysis with new onset dysarthria and decreased mentation, sBP in the 70s, stroke code called, his sBP manuel to 104 and his speech improved. CTH ordered which was negative, BP meds held, and patient returned to dialysis. REVIEW OF SYSTEMS: The following is a completed review of systems and has been reviewed. Review of systems otherwise unremarkable. PAIN: Patient self reports left toe pain EYES: No recent vision changes EARS, NOSE, & THROAT: No throat pain, or dysphagia, or rhinorrhea CARDIOVASCULAR: Denies chest pain or palpitations PULMONARY: Denies shortness of breath GASTROINTESTINAL: Denies constipation/diarrhea GENITOURINARY: +anuric MUSCULOSKELETAL: generalized weakness NEUROLOGICAL: +intermittent confusion HEMATOLOGICAL: denies easy bruising SKIN: denies rash PSYCHIATRIC: Unremarkable All other review of systems found to be negative. PHYSICAL EXAMINATION: VITAL SIGNS: Please see below. GENERAL: Pleasant and cooperative. No acute distress. HEENT: PERRL. Extraocular movements intact. Clear conjunctiva CARDIOVASCULAR: Regular rate and rhythm. +systolic murmurs, no rubs, or gallops LUNGS: Clear to auscultation bilaterally. No wheezes. No rhonchi ABDOMEN: Soft, nontender, nondistended. Positive bowel sounds. Normal active bowel sounds NEUROLOGICAL: Alert and oriented to person, place, not time, Cranial nerves II through XII grossly intact. Sensation grossly intact in all 4 limbs EXTREMITIES: 5\\5 strength bilateral upper extremities. 4+\\5 strength right lower extremity.4+/5 strength in left lower extremity except 3/5 ankle Df and 2/5 EHL SKIN: left chest wall permacath, left toe D1 with minimal swelling, no notable erythema or drainage, tip of toe appearing necrotic, nail bed does not appear infected ASSESSMENT:79-year-old M with past medical history of ESRD who presents status post encephalopathy in the setting of like uremia. PLAN: 1. Rehab-PT/OT advance gait training and ADl management, dynamic balance training, strengthen/stretch/maintain ROM bilat UE and LE - PROCESS STRIPPER for cognitive eval 2. Neuro: patient admitted with encephalopathy, etiology possibly due to uremia in setting of ESRD continuing to affect his mobility and ADL management -patient continues to fluctuate in mentation 3.Cardiac: HTN c/u clonidine patch, COreg and isosorbide mononitrate- Losartan d/c's deferring to renal for BP management-recs appreciated -Patient during dialysis today 05-22-19 had drop in sBP down into the 70s with new onset dysarthria, stroke code called, CTH negative, patient's mentation and speech improved once his sBP returns to 100s- BP meds currently on hold, renal aware -CAD c/u ASa-Coreg on hold- medicine consulted to assist in management -chronic systolic/diastolic CHF- daily weights, fluid restrict 4. Resp: encourage incentive spirometry and monitor for infection, Duonebs ordered- patient with dry cough c/u guaifenesin 5. Renal: s/p bilat nephrectomies on PD at home, now on HD- renal consulted to assist in overall management -c/u Sevelamer, Cinacalcet, Calcium Acetate 6. GI ppx: omeprazole, bowel regimen to prevent constipation 7. DVT ppx: heparin 8. Pain: Patient requesting to stop Pamelor as he is concerned it might be affecting his cognition and that sometimes he feels dizzy - c/u ibuprofen as well for left toe pain -c/u Tylenol 1000mg TID 9. Endo: patient with thyroid nodules on recent CT, TSH low end of normal, FT4 WNL and Ft3 close to normal- thyroid US showeing, "Bilateral nonspecific hypoechoic and mixed complex nodules." patient can f/u at the [facility] for further wor k-up 10. Infectious- recent MRI negative for osteomyelitis of toe, repeat MRI 05-18-19 also negative for osteomyelitis -will need to f/u with wound care clinic 11. Dispo: 05-23-19 to home, however will wait to see if BPs level out prior to d/c Allergies Coded Allergies: amlodipine (Verified Allergy, Unknown, 05/01/19) indomethacin (Verified Allergy, Unknown, 05/01/19) nifedipine (Verified Allergy, Unknown, 05/01/19) hydralazine (Verified Adverse Reaction, Mild, ELEVATED BP, 05/01/19) Vital Signs Vital Signs Date Time Temp Pulse Resp B/P (MAP) Pulse Ox O2 Delivery O2 Flow Rate FiO2 05/22/19 13:57 104/74 05/22/19 08:06 87 05/22/19 06:00 97.8 18 96 Room Air Laboratory Data Labs 24H Laboratory Tests 2 05/22/19 13:55: Bedside Glucose (Misc Panel) 95 Current Medications Current Medications Current Medications Medications (Trade) Dose Ordered Sig/Damien Route PRN Reason Start Time Stop Time Status Last Admin Dose Admin Acetaminophen (Tylenol Tab) 650 mg Q4HP PRN PO fever/MILD PAIN (PS 1-4) 05/11/19 14:15 05/11/19 17:22 DC Acetaminophen (Tylenol Tab) 1,000 mg TID PO 05/11/19 21:00 05/22/19 08:02 Albuterol/ Ipratropium (Duoneb (Ipr 0.5mg/Alb 2.5mg)) 3 ml Q2HP PRN NEB SOB/WHEEZING 05/14/19 10:00 05/21/19 18:05 Albuterol/ Ipratropium (Duoneb (Ipr 0.5mg/Alb 2.5mg)) 3 ml RTID NEB 05/14/19 14:00 05/21/19 13:23 Albuterol/ Ipratropium (Duoneb (Ipr 0.5mg/Alb 2.5mg)) 3 ml TID NEB 05/11/19 16:00 05/14/19 10:00 DC 05/14/19 07:22 Aspirin (Ecotrin) 81 mg DAILY PO 05/12/19 09:00 05/22/19 08:01 Calcium Acetate (Phoslo) 667 mg WM PO 05/11/19 18:00 05/22/19 08:02 Carvedilol (COReg) 12.5 mg BID@0800,2100 PO 05/15/19 09:01 05/16/19 09:44 DC 05/16/19 06:44 Carvedilol (COReg) 12.5 mg Q12H PO 05/15/19 08:00 05/15/19 09:01 DC 05/15/19 08:54 Carvedilol (COReg) 25 mg BID@0800,2100 PO 05/16/19 21:00 05/22/19 13:56 DC 05/22/19 08:06 Cinacalcet (Sensipar) 30 mg DAILY PO 05/12/19 09:00 05/22/19 08:01 Clonidine HCl (Mzqlklpm-Ate-7) 1 ea We@09 [facility] 05/16/19 09:00 05/22/19 13:56 DC 05/16/19 08:14 Darbepoetin Irving (Aranesp (Dialysis Use)) 200 mcg HD IV 05/12/19 23:45 Docusate Sodium (Colace) 100 mg BID PO 05/11/19 21:00 05/22/19 08:01 Guaifenesin (Mucinex Tab Er) 1,200 mg BID PO 05/19/19 21:00 05/22/19 08:01 Heparin Sodium (Porcine) (Heparin) 5,000 units Q8H SC 05/11/19 14:00 05/22/19 05:07 Ibuprofen (Advil) 400 mg TID PO 05/16/19 16:30 05/18/19 13:36 DC 05/18/19 08:50 Ibuprofen (Advil) 400 mg TID PO 05/18/19 16:00 05/22/19 08:01 Isosorbide Mononitrate (Imdur) 120 mg DAILY PO 05/12/19 09:00 05/22/19 13:56 DC 05/22/19 08:06 Losartan Potassium (Cozaar) 50 mg QHS PO 05/11/19 21:00 05/15/19 10:13 DC 05/14/19 20:35 Magnesium Hydroxide (Milk Of Magnesia) 30 ml DAILYPRN PRN PO CONSTIPATION 05/11/19 14:15 Metoprolol Succinate (TopROL XL) 100 mg QHS PO 05/11/19 21:00 05/14/19 22:29 DC 05/14/19 20:35 Minoxidil (Loniten) 2.5 mg BID PO 05/19/19 09:00 05/22/19 13:56 DC 05/22/19 08:07 Multivitamins (Theragram-M) 1 tab DAILY PO 05/12/19 09:00 05/22/19 08:02 Mupirocin (Bactroban 2% Ointment) apply to top of nail ... BID TOP 05/11/19 21:00 05/16/19 16:34 DC 05/16/19 08:12 Nitroglycerin (Nitrobid 2%) 1 gm BID TOP 05/11/19 21:00 05/11/19 17:43 DC Nitroglycerin (Nitrostat (1/ 150)) 0.4 mg Q5MP PRN SL CHEST PAIN 05/11/19 14:15 Nortriptyline HCl (Pamelor) 10 mg BID PO 05/16/19 21:00 05/17/19 19:03 DC 05/17/19 09:06 Nortriptyline HCl (Pamelor) 10 mg BID PO 05/18/19 21:00 05/21/19 10:15 DC 05/21/19 09:03 Nortriptyline HCl (Pamelor) 10 mg BID@0700,1900 PO 05/17/19 19:00 05/18/19 13:56 DC 05/18/19 11:47 Nortriptyline HCl (Pamelor) 10 mg QHS PO 05/11/19 21:00 05/16/19 15:44 DC 05/15/19 20:26 Nortriptyline HCl (Pamelor) 25 mg QHS PO 05/21/19 21:00 05/21/19 12:32 DC Omeprazole (PriLOSEC) 20 mg DAILY PO 05/12/19 09:00 05/22/19 08:01 Oxycodone HCl (Roxicodone, Oxyir) 2.5 mg Q6HP PRN PO PAIN 05/11/19 18:30 05/15/19 12:43 DC 05/14/19 08:15 Oxycodone HCl (Roxicodone, Oxyir) 2.5 mg Q8H PRN PO PAIN 05/11/19 17:30 05/11/19 18:17 DC Oxycodone HCl (Roxicodone, Oxyir) 5 mg Q6HP PRN PO PAIN 05/11/19 14:15 05/11/19 17:22 DC Patient Own Medication (Patient'S Own Med) paricalcitol 1mcg tab- take 2 t... DAILY PO 05/12/19 09:00 05/11/19 15:42 DC Potassium Chloride (Micro-K Extencaps) 20 meq DAILY PO 05/11/19 09:00 05/14/19 09:26 DC 05/14/19 07:42 Senna (Senokot) 1 tab QHS PO 05/11/19 21:00 05/21/19 21:22 Sevelamer Carbonate (Renvela) 800 mg WM PO 05/11/19 18:00 05/22/19 08:01 Vitamin D (Vitamin D) 2,000 units DAILY PO 05/11/19 09:00 05/22/19 08:01 JEFFERY CANTU MD May 22, 2019 17:06
--- NOTE | 2019-05-22 19:16 | IPNPDOC ---
Text Note Date of Service The patient was seen on 05/22/19. NOTE This note pertains to the nephrology service with Derek Daniels DO supervising my work. Please see E attestation below. SUBJECTIVE: Pt was seen at bedside this morning in the presence of his . He complains of confusion, which his confirms. He continues to complain of left foot pain. He has no further complaints. OBJECTIVE: VITALS: See below. GENERAL: Pt appears stated age and is sitting in a wheelchair in no acute distress. HEENT: EOMI. Sclera are not icteric. Neck is supple. CARDIOVASCULAR: Regular rate and rhythm. Normal S1 & S2. No edema present in lower nor upper extremities b/l. PULMONARY: Lungs are clear to auscultation b/l. No wheezes, rales, or rhonchi. Tunneled hemodialysis catheter present in left chest wall. ABDOMEN: No rashes, bumps, or bruises. Soft and nontender. Bowel sounds present. EXTREMITIES: Left foot was not examined today. INTEGUMENTARY: Normal temperature and turgor. PSYCHOLOGICAL: Pt is calm and cooperative. He answers questions appropriately. He complains of some confusion. Insight is good. INTAKE/OUTPUT: Intake was noted to be 780 mL yesterday. Pt is anuric. Weight in the bed scale today is 84.4 kg (up 2.9 kg). Hemodialysis was done today with no fluid removal. LABORATORY DATA: No renal labs were drawn today. ASSESSMENT/PLAN: 1. End-stage renal disease - Pt has been receiving hemodialysis (HD) three times per week in the rehabilitation unit, but wishes to restart his peritoneal dialysis (PD) upon discharge. He underwent hemodialysis today with no fluid removal. HD catheter to be removed before discharge. - Electrolytes are acceptable. Fluid status is acceptable. 2. Hypertension in end-stage renal disease - Blood pressures are better controlled than his usual baseline. 3. Anemia in end-stage renal disease - Hemoglobin remains suboptimal but generally stable in the 9s. It was 8.9 this morning. - Continue Aranesp. 4. Secondary hyperparathyroidism of renal origin - Calcium, phosphorus, and parathyroid hormone levels have been acceptable; no adjustment is necessary. 5. Chronic combined congestive heart failure - Fluid status is well-compensated and has responded well to HD. - Continue 1800 mL fluid restriction. VS,Fishbone, I+O VS, Fishbone, I+O Vital Signs Date Time Temp Pulse Resp B/P (MAP) Pulse Ox O2 Delivery O2 Flow Rate FiO2 05/22/19 13:57 104/74 05/22/19 08:06 87 05/22/19 06:00 97.8 18 96 Room Air I&O- Last 24 Hours up to 6 AM 05/22/19 06:00 Intake Total 1080 ml Output Total 0 ml Balance 1080 ml GME ATTESTATION GME ATTESTATION My faculty preceptor for this patient encounter was physically present during the encounter and was fully available. All aspects of the patient interview, examination, medical decision making process, and medical care plan development were reviewed and approved by the faculty preceptor. The faculty preceptor is aware and concurs with the plan as stated in the body of this note and will attest to such by his/her cosignature. ZEKE BARNHART S-III May 22, 2019 19:16 DEREK DANIELS DO Jun 05, 2019 13:08
[2019-05-22 21:14] VITALS: BP 151/72
[2019-05-22] MEDS: SENNA 8.6 MG TAB (SENOKOT) PO SCH (21:18)
[2019-05-23] MEDS: IPRATROPIUM 0.5MG/ALBUTEROL 2.5MG INH SOL UD 3ML (DUONEB)(J7620) NEB PRN ×2 (00:33→17:04)
[2019-05-23] MEDS: HEPARIN SOD (PORCINE) 5000 UNITS/ML VIAL (J1644 PER 1000UNITS) SC SCH ×3 (05:39→20:43)
[2019-05-23 05:55] VITALS: BP 142/64
[2019-05-23] MEDS: IPRATROPIUM 0.5MG/ALBUTEROL 2.5MG INH SOL UD 3ML (DUONEB)(J7620) NEB SCH ×3 (07:48→19:44)
[2019-05-23] MEDS: CALCIUM ACETATE 667 MG GELCAP PO SCH ×3 (08:00→18:00)
[2019-05-23] MEDS: (RENVELA) SEVELAMER **CARBONate** 800 MG TAB PO SCH ×3 (08:00→18:00)
[2019-05-23] MEDS: ACETAMINOPHEN 500 MG TAB PO SCH ×3 (08:44→20:41)
[2019-05-23] MEDS: IBUPROFEN 400 MG TAB PO SCH ×3 (08:44→20:42)
[2019-05-23] MEDS: ASPIRIN 81 MG ENTERIC TAB PO SCH (08:45)
[2019-05-23] MEDS: CINACALCET 30 MG TAB (SENSIPAR) PO SCH (08:45)
[2019-05-23] MEDS: MULTIVITAMINS/MINERALS THERAP 1 TAB PO SCH (08:45)
[2019-05-23] MEDS: VITAMIN D 1,000 INTERNATIONAL UNITS TABLET PO SCH (08:45)
[2019-05-23] MEDS: OMEPRAZOLE 20 MG CAP PO SCH (08:45)
[2019-05-23] MEDS: REMEDY PHYTOPLEX Z-GUARD PASTE 113GM TUBE (FROM STOREROOM PRODUCT) TOP SCH ×3 (08:46→20:42)
[2019-05-23] MEDS: guaiFENesin ER 600 MG TAB PO SCH ×2 (08:46→20:41)
[2019-05-23] MEDS: DOCUSATE SODIUM 100 MG CAP PO SCH ×2 (08:46→20:41)
[2019-05-23 08:48] LABS: HEMATOCRIT 29.4 % (42.0-52.0); MEAN CORPUSCULAR HEMOGLOBIN 32.6 pg (27.0-33.0); MEAN CORPUSCULAR VOLUME 95.8 fl (80.0-96.0); PLATELET COUNT, AUTOMATED 264 10^3/uL (150-450); RED BLOOD COUNT 3.07 10^6/uL (4.30-6.10); WHITE BLOOD COUNT 5.5 10^3/uL (4.0-10.0)
[2019-05-23 09:05] LABS: CALCIUM LEVEL 9.5 MG/DL (8.8-10.2); CREATININE FOR GFR 6.17 MG/DL (0.70-1.30); GLOMERULAR FILTRATION RATE 11.4 (>42); POTASSIUM SERUM 4.3 MEQ/L (3.5-5.1)
[2019-05-23 14:00] VITALS: BP 158/74
--- NOTE | 2019-05-23 15:56 | IPNPDOC ---
PM&R Progress Note DATE OF SERVICE: May 23, 2019 Word Processor Operator Progress Note Subjective: Patient reporting he feels ok today and is ready for discharge to home tomorrow. He is looking forward to returning to peritoneal dialysis. REVIEW OF SYSTEMS: The following is a completed review of systems and has been reviewed. Review of systems otherwise unremarkable. PAIN: Patient self reports left toe pain EYES: No recent vision changes EARS, NOSE, & THROAT: No throat pain, or dysphagia, or rhinorrhea CARDIOVASCULAR: Denies chest pain or palpitations PULMONARY: Denies shortness of breath GASTROINTESTINAL: Denies constipation/diarrhea GENITOURINARY: +anuric MUSCULOSKELETAL: generalized weakness NEUROLOGICAL: +intermittent confusion HEMATOLOGICAL: denies easy bruising SKIN: denies rash PSYCHIATRIC: Unremarkable All other review of systems found to be negative. PHYSICAL EXAMINATION: VITAL SIGNS: Please see below. GENERAL: Pleasant and cooperative. No acute distress. HEENT: PERRL. Extraocular movements intact. Clear conjunctiva CARDIOVASCULAR: Regular rate and rhythm. +systolic murmurs, no rubs, or gallops LUNGS: Clear to auscultation bilaterally. No wheezes. No rhonchi ABDOMEN: Soft, nontender, nondistended. Positive bowel sounds. Normal active bowel sounds NEUROLOGICAL: Alert and oriented to person, place, not time, Cranial nerves II through XII grossly intact. Sensation grossly intact in all 4 limbs EXTREMITIES: 5\\5 strength bilateral upper extremities. 4+\\5 strength right lower extremity.4+/5 strength in left lower extremity except 3/5 ankle Df and 2/5 EHL SKIN: left chest wall permacath, left toe D1 with minimal swelling, no notable erythema or drainage, tip of toe appearing necrotic, nail bed does not appear infected ASSESSMENT:79-year-old M with past medical history of ESRD who presents status post encephalopathy in the setting of like uremia. PLAN: 1. Rehab-PT/OT advance gait training and ADl management, dynamic balance training, strengthen/stretch/maintain ROM bilat UE and LE - CORE ANALYST for cognitive eval 2. Neuro: patient admitted with encephalopathy, etiology possibly due to uremia in setting of ESRD continuing to affect his mobility and ADL management -patient continues to fluctuate in mentation 3.Cardiac: HTN c/u clonidine patch, COreg and isosorbide mononitrate- Losartan d/c's deferring to renal for BP management-recs appreciated -Patient during dialysis today 2-18-20 had drop in sBP down into the 70s with new onset dysarthria, stroke code called, CTH negative, patient's mentation and speech improved once his sBP returns to 100s- BP meds currently on hold, renal aware -CAD c/u ASa-Coreg on hold- medicine consulted to assist in management -chronic systolic/diastolic CHF- daily weights, fluid restrict 4. Resp: encourage incentive spirometry and monitor for infection, Duonebs ordered- patient with dry cough c/u guaifenesin 5. Renal: s/p bilat nephrectomies on PD at home, now on HD- renal consulted to assist in overall management -c/u Sevelamer, Cinacalcet, Calcium Acetate 6. GI ppx: omeprazole, bowel regimen to prevent constipation 7. DVT ppx: heparin 8. Pain: Patient requesting to stop Pamelor as he is concerned it might be affecting his cognition and that sometimes he feels dizzy - c/u ibuprofen as well for left toe pain -c/u Tylenol 1000mg TID 9. Endo: patient with thyroid nodules on recent CT, TSH low end of normal, FT4 WNL and Ft3 close to normal- thyroid US showeing, "Bilateral nonspecific hypoechoic and mixed complex nodules." patient can f/u at the [facility] for further work-up 10. Infectious- recent MRI negative for osteomyelitis of toe, repeat MRI 05-18-19 also negative for osteomyelitis -will need to f/u with wound care clinic 11. Dispo: 05-24-19 to home, renal agrees this is medically safe, functionally patient is safe to go home as well Allergies Coded Allergies: amlodipine (Verified Allergy, Unknown, 05/01/19) indomethacin (Verified Allergy, Unknown, 05/01/19) nifedipine (Verified Allergy, Unknown, 05/01/19) hydralazine (Verified Adverse Reaction, Mild, ELEVATED BP, 05/01/19) Vital Signs Vital Signs Date Time Temp Pulse Resp B/P (MAP) Pulse Ox O2 Delivery O2 Flow Rate FiO2 05/23/19 14:00 97.3 85 20 158/74 (102) 99 Room Air Laboratory Data CBC/BMP Laboratory Tests 05/23/19 08:26 Labs 24H Laboratory Tests 2 05/23/19 08:26: Nucleated Red Blood Cells % (auto) 0.0, Anion Gap 8, Glomerular Filtration Rate 11.4L, Calcium Level 9.5 Current Medications Current Medications Current Medications Medications (Trade) Dose Ordered Sig/Damien Route PRN Reason Start Time Stop Time Status Last Admin Dose Admin Acetaminophen (Tylenol Tab) 650 mg Q4HP PRN PO fever/MILD PAIN (PS 1-4) 05/11/19 14:15 05/11/19 17:22 DC Acetaminophen (Tylenol Tab) 1,000 mg TID PO 05/11/19 21:00 05/23/19 08:44 Albuterol/ Ipratropium (Duoneb (Ipr 0.5mg/Alb 2.5mg)) 3 ml Q2HP PRN NEB SOB/WHEEZING 05/14/19 10:00 05/23/19 00:33 Albuterol/ Ipratropium (Duoneb (Ipr 0.5mg/Alb 2.5mg)) 3 ml RTID NEB 05/14/19 14:00 05/23/19 11:51 Albuterol/ Ipratropium (Duoneb (Ipr 0.5mg/Alb 2.5mg)) 3 ml TID NEB 05/11/19 16:00 05/14/19 10:00 DC 05/14/19 07:22 Aspirin (Ecotrin) 81 mg DAILY PO 05/12/19 09:00 05/23/19 08:45 Calcium Acetate (Phoslo) 667 mg WM PO 05/11/19 18:00 05/22/19 08:02 Carvedilol (COReg) 12.5 mg BID@0800,2100 PO 05/15/19 09:01 05/16/19 09:44 DC 05/16/19 06:44 Carvedilol (COReg) 12.5 mg Q12H PO 05/15/19 08:00 05/15/19 09:01 DC 05/15/19 08:54 Carvedilol (COReg) 25 mg BID@0800,2100 PO 05/16/19 21:00 05/22/19 13:56 DC 05/22/19 08:06 Cinacalcet (Sensipar) 30 mg DAILY PO 05/12/19 09:00 05/23/19 08:45 Clonidine HCl (Zqmoxbet-Gll-8) 1 ea We@09 [facility] 05/16/19 09:00 05/22/19 13:56 DC 05/16/19 08:14 Darbepoetin Irving (Aranesp (Dialysis Use)) 200 mcg HD IV 05/12/19 23:45 Docusate Sodium (Colace) 100 mg BID PO 05/11/19 21:00 05/23/19 08:46 Guaifenesin (Mucinex Tab Er) 1,200 mg BID PO 05/19/19 21:00 05/23/19 08:46 Heparin Sodium (Porcine) (Heparin) 5,000 units Q8H SC 05/11/19 14:00 05/22/19 05:07 Ibuprofen (Advil) 400 mg TID PO 05/16/19 16:30 05/18/19 13:36 DC 05/18/19 08:50 Ibuprofen (Advil) 400 mg TID PO 05/18/19 16:00 05/23/19 08:44 Isosorbide Mononitrate (Imdur) 120 mg DAILY PO 05/12/19 09:00 05/22/19 13:56 DC 05/22/19 08:06 Losartan Potassium (Cozaar) 50 mg QHS PO 05/11/19 21:00 05/15/19 10:13 DC 05/14/19 20:35 Magnesium Hydroxide (Milk Of Magnesia) 30 ml DAILYPRN PRN PO CONSTIPATION 05/11/19 14:15 Metoprolol Succinate (TopROL XL) 100 mg QHS PO 05/11/19 21:00 05/14/19 22:29 DC 05/14/19 20:35 Minoxidil (Loniten) 2.5 mg BID PO 05/19/19 09:00 05/22/19 13:56 DC 05/22/19 08:07 Multivitamins (Theragram-M) 1 tab DAILY PO 05/12/19 09:00 05/23/19 08:45 Mupirocin (Bactroban 2% Ointment) apply to top of nail ... BID TOP 05/11/19 21:00 05/16/19 16:34 DC 05/16/19 08:12 Nitroglycerin (Nitrobid 2%) 1 gm BID TOP 05/11/19 21:00 05/11/19 17:43 DC Nitroglycerin (Nitrostat (1/ 150)) 0.4 mg Q5MP PRN SL CHEST PAIN 05/11/19 14:15 Nortriptyline HCl (Pamelor) 10 mg BID PO 05/16/19 21:00 05/17/19 19:03 DC 05/17/19 09:06 Nortriptyline HCl (Pamelor) 10 mg BID PO 05/18/19 21:00 05/21/19 10:15 DC 05/21/19 09:03 Nortriptyline HCl (Pamelor) 10 mg BID@0700,1900 PO 05/17/19 19:00 05/18/19 13:56 DC 05/18/19 11:47 Nortriptyline HCl (Pamelor) 10 mg QHS PO 05/11/19 21:00 05/16/19 15:44 DC 05/15/19 20:26 Nortriptyline HCl (Pamelor) 25 mg QHS PO 05/21/19 21:00 05/21/19 12:32 DC Omeprazole (PriLOSEC) 20 mg DAILY PO 05/12/19 09:00 05/23/19 08:45 Oxycodone HCl (Roxicodone, Oxyir) 2.5 mg Q6HP PRN PO PAIN 05/11/19 18:30 05/15/19 12:43 DC 05/14/19 08:15 Oxycodone HCl (Roxicodone, Oxyir) 2.5 mg Q8H PRN PO PAIN 05/11/19 17:30 05/11/19 18:17 DC Oxycodone HCl (Roxicodone, Oxyir) 5 mg Q6HP PRN PO PAIN 05/11/19 14:15 05/11/19 17:22 DC Patient Own Medication (Patient'S Own Med) paricalcitol 1mcg tab- take 2 t... DAILY PO 05/12/19 09:00 05/11/19 15:42 DC Potassium Chloride (Micro-K Extencaps) 20 meq DAILY PO 05/11/19 09:00 05/14/19 09:26 DC 05/14/19 07:42 Senna (Senokot) 1 tab QHS PO 05/11/19 21:00 05/22/19 21:18 Sevelamer Carbonate (Renvela) 800 mg WM PO 05/11/19 18:00 05/22/19 08:01 Vitamin D (Vitamin D) 2,000 units DAILY PO 05/11/19 09:00 05/23/19 08:45 JEFFERY CANTU MD May 23, 2019 15:55
--- NOTE | 2019-05-23 17:52 | IPN ---
DATE: 05/23/2019 SUBJECTIVE: Mauricio is seen and examined this morning at the bedside. Yesterday when he was about 30 minutes into his dialysis treatment he had documented hypotension. Systolic was around the 80s, and he had altered mentation, and he went for a stat CT head that showed no acute findings. His antihypertensives were held, and his mentation has improved. His reports that he was confused when he woke up, thinking he was dreaming, but otherwise she has found him to be at baseline mentation since then. No fluids were removed with his hemodialysis treatment yesterday. Temperature 97.3, pulse 81, respiratory rate 18, blood pressure 142/64, saturating 99% on room air. Intake yesterday was not fully recorded. Dialysis removed no fluids. Weight in the bed scale today is 85.5 kg. GENERAL: The patient is seen sitting up in bed, head of the bed elevated, awake, alert, oriented to person, place, situation. Cooperative with physical exam, conversational and at baseline mentation in no apparent distress. Extraocular muscles are intact. Sclerae are anicteric. Tongue is moist. Neck is supple. Jugular veins are not elevated. HEART: Sounds are regular, S1, S2. There is absolutely no edema in the lower or upper extremities. LUNGS: Clear to auscultation. Equal air entry. No rale or rhonchi. There is a tunneled hemodialysis catheter present in the left chest wall. ABDOMEN: Soft and nontender. There is a peritoneal dialysis (PD) catheter present with exit site clean, dry, and intact. There is a dressing on his left great toe, which is not removed. NEUROLOGIC: He was interactive, conversational, cooperative with physical exam, and oriented to person, place, and situation at the time of my visit. SKIN: Normal temperature and turgor. LABORATORY DATA: White count 5.5, hemoglobin 10.0, platelets 264. Sodium 135, potassium 4.3, bicarbonate 27, BUN 14. Head CT showed no acute findings. INPATIENT MEDICATIONS: Antihypertensive on hold, including Carvedilol, clonidine, Imdur, and minoxidil. Remainder of medications is unchanged from prior. PROBLEMS: 1. End-stage renal disease. The patient is receiving hemodialysis while he is in the rehabilitation unit. When he is discharged he will revert back to his peritoneal dialysis with cycler prescription with a midday exchange. His PD catheter was flushed on Tuesday and is patent. He had no fluid removed with his hemodialysis treatment yesterday due to hypotension of hemodialysis and associated mental status change. His volume status is acceptable. We will remove his Perm-A-Cath prior to discharge. He is well dialyzed, and BUN is less than 20. 2. Hypertension with end-stage renal disease. Blood pressures have been running lower than his usual baseline. He becomes a little slow when his blood pressures are aggressively controlled. He had hypotension of hemodialysis yesterday. His antihypertensives have been held since then, and I am continuing to hold them today. Systolic is 140s-150s, which is optimal. 3. Anemia and end-stage renal disease. He continues on Aranesp. Hemoglobin is optimal at 10.0. 4. Chronic combined congestive heart failure. No fluid was removed with his hemodialysis treatment yesterday because of significant hypotension with hemodialysis. His volume status still looks acceptable, and he is continued on 1800 mL fluid restriction.
[2019-05-23] MEDS: SENNA 8.6 MG TAB (SENOKOT) PO SCH (20:42)
[2019-05-23 21:19] VITALS: BP 180/80
[2019-05-23 22:00] VITALS: BP 174/80
[2019-05-24] VITALS (7 sets, daily range): BP systolic 123–186; BP diastolic 80–90
[2019-05-24] MEDS: HEPARIN SOD (PORCINE) 5000 UNITS/ML VIAL (J1644 PER 1000UNITS) SC SCH ×3 (06:20→20:50)
[2019-05-24] MEDS: IPRATROPIUM 0.5MG/ALBUTEROL 2.5MG INH SOL UD 3ML (DUONEB)(J7620) NEB SCH ×3 (07:05→19:54)
[2019-05-24] MEDS: (RENVELA) SEVELAMER **CARBONate** 800 MG TAB PO SCH ×3 (08:00→18:00)
[2019-05-24] MEDS: CALCIUM ACETATE 667 MG GELCAP PO SCH ×3 (08:00→18:00)
--- NOTE | 2019-05-24 08:27 | CR.PDOC ---
General Date of Consultation: May 24, [address] Canseco. HPI: 79year oldM transferred from outside hospital admitted to [facility] related to weakness, debility and Left great toe wound. Now on PMR for rehabilitation as per Dr Portillo. Vascular surgery was consulted for PermCath removal, and evaluation for possible arterial intervention due to ongoing pain in his left foot. Denies any Headache, Chest Pain, Shortness of breath, cough, palpitations, abdominal pain, N/V/D or changes in bowel or bladder habits. PAST MEDICAL/ SURGICAL HISTORY: Peritoneal dialysis/Status post bilateral nephrectomy/renal cell Ca Anemia of chronic renal disease Gout HTN/Chronic systolic/diastolic CHF Mild pulmonary hypertension Mild to moderate aortic valve sclerosis with trace aortic valve regurgitation GERD CAD History of prostate cancer status post prostatectomy. 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 CAD ROS: As noted in HPI, otherwise 11pt ROS of systems reviewed and unremarkable. PE: GEN: 79yoM, appears stated age. A/Ox3 HEENT: Normocephalic, atraumatic. Moist mucous membranes. CHEST: Regular rate and rhythm, +S1, +S2. PermCath left chest. Dressing intact. LUNGS: Clear to auscultation bilaterally. ABD: Round, soft, non-tender, non-distended. EXT: Dressing intact over the left great toe. Monophasic signals DP/PT left foot. Toe very tender to palpation. NEURO: Alert and oriented x 3. No focal deficits appreciated. A&P: 1. History of bilateral nephrectomy, currently on peritoneal dialysis. Vascular surgery was consulted for removal of PermCath left chest. The procedure, risks, and benefits are reviewed with the patient. Consent for PermCath removal was placed on the chart. 2. PAD/Left great toe wound. Wound care as per Podiatry. Pt is on ASA 81 mg daily. Would recommend consider statin if no contraindication. The patient is status post angiogram as per Dr. Hernandez 05/09/19. The pt cont inues to have pain in the Left great toe and non healing wound. Discussed with the pt re proceeding with LLE angiogram as per Dr Canseco. He and his were extensively counseled. They understand there is no guarantee that additional intervention will improve his arterial flow, and that we may not be successful with re-intervention. They also understand that his pain may not be significantly improved even if we are successful with re-intervention. They are agreeable to proceed. Consent was placed on the chart. Vital Signs/I&O Vital Signs Date Time Temp Pulse Resp B/P (MAP) Pulse Ox O2 Delivery O2 Flow Rate FiO2 05/24/19 05:59 97.4 84 18 180/80 (113) 98 Room Air I&O- Last 24 Hours up to 6 AM 05/24/19 06:00 Intake Total 420 ml Output Total 0 ml Balance 420 ml Laboratory Data Labs 24H Laboratory Tests 2 05/23/19 08:26: Nucleated Red Blood Cells % (auto) 0.0, Anion Gap 8, Glomerular Filtration Rate 11.4L, Calcium Level 9.5 CBC/BMP Laboratory Tests 05/23/19 08:26 Allergies Coded Allergies: amlodipine (Verified Allergy, Unknown, 05/01/19) indomethacin (Verified Allergy, Unknown, 05/01/19) nifedipine (Verified Allergy, Unknown, 05/01/19) hydralazine (Verified Adverse Reaction, Mild, ELEVATED BP, 05/01/19) Home Medications Scheduled Aspirin (Aspir 81) 81 Mg Tab, 81 MG PO DAILY, (Reported) Aspirin (Aspirin EC) 81 Mg Tablet.dr, 81 MG PO DAILY, #30 Calcium Acetate (Calcium Acetate) 667 Mg Cap, 667 MG PO WM, (Reported) Calcium Acetate (Calcium Acetate) 667 Mg Capsule, 667 MG PO WM, #90 Carvedilol (Carvedilol) 12.5 Mg Tablet, 12.5 MG PO BID, #60 Cholecalciferol (Vitamin D3) (Vitamin D3) 1,000 Unit Capsule, 2,000 UNIT PO DAILY, (Reported) Cholecalciferol (Vitamin D3) (Vitamin D3) 1,000 Unit Tablet, 2,000 UNITS PO DAILY, #60 Cinacalcet (Sensipar) 30 Mg Tab, 60 MG PO DAILY, (Reported) Cinacalcet HCl (Cinacalcet HCl) 30 Mg Tablet, 30 MG PO DAILY, #30 Epoetin Irving (Procrit) 20,000 Unit/1 Ml Vial, 20,000 UNIT SC 1XWK, (Reported) MONDAYS Isosorbide Mononitrate (Isosorbide Mononitrate ER) 30 Mg Tab.er.24h, 3 TAB PO DAILY for 30 Days, #90 Multivitamins (Thera M Plus Tablet) 1 Tab Tab, 1 TAB PO DAILY, (Reported) Omeprazole (Omeprazole) 20 Mg Cap, 20 MG PO DAILY, (Reported) Omeprazole (Omeprazole) 20 Mg Capsule.dr, 20 MG PO DAILY, #30 Sevelamer Carbonate (Renvela) 800 Mg Tablet, 800 MG PO WM, (Reported) Sevelamer Carbonate (Renvela) 800 Mg Tablet, 800 MG PO WM, #90 Scheduled PRN Acetaminophen (Acetaminophen) 325 Mg Tablet, 650 MG PO Q4H PRN for PAIN OR FEVER, #30 Albuterol Sulfate (Proventil Hfa) 6.7 Gm Hfa.aer.ad, 2 PUFF INH QID PRN for SOB/WHEEZING, (Reported) Allopurinol (Allopurinol) 100 Mg Tablet, 100 MG PO DAILY PRN for GOUT FLARE UPS, (Reported) Docusate Sodium (Docusate Sodium) 100 Mg Capsule, 100 MG PO Q12HP PRN for CONSTIPATION, #60 Febuxostat (Uloric) 40 Mg Tab, 40 MG PO DAILY PRN for GOUT FLARE UPS, (Reported) Ipratropium/Albuterol Sulfate (Iprat-Albut 0.5-3(2.5) mg/3 ml) 3 Ml Ampul.neb, 3 ML NEB Q8HP PRN for SOB/WHEEZING, #30 Puja Garcia May 24, 2019 08:27 ELLA CANSECO MD May 24, 2019 18:32
[2019-05-24 08:43] LABS: HEMATOCRIT 28.5 % (42.0-52.0); HEMOGLOBIN 9.7 g/dl (13.5-17.5); MEAN CORPUSCULAR HEMOGLOBIN 32.2 pg (27.0-33.0); MEAN CORPUSCULAR VOLUME 94.7 fl (80.0-96.0); PLATELET COUNT, AUTOMATED 244 10^3/uL (150-450); RED BLOOD COUNT 3.01 10^6/uL (4.30-6.10); WHITE BLOOD COUNT 6.2 10^3/uL (4.0-10.0)
[2019-05-24] MEDS: REMEDY PHYTOPLEX Z-GUARD PASTE 113GM TUBE (FROM STOREROOM PRODUCT) TOP SCH ×3 (09:00→20:52)
[2019-05-24 09:12] LABS: CALCIUM LEVEL 9.1 MG/DL (8.8-10.2); GLOMERULAR FILTRATION RATE 8.5 (>42); POTASSIUM SERUM 4.7 MEQ/L (3.5-5.1)
[2019-05-24] MEDS ORDERED: CARV12.5 PO (09:54)
[2019-05-24] MEDS ORDERED: ISOS30TA4 PO ×2 (09:54→09:56)
[2019-05-24] MEDS: VITAMIN D 1,000 INTERNATIONAL UNITS TABLET PO SCH (10:57)
[2019-05-24] MEDS: guaiFENesin ER 600 MG TAB PO SCH ×2 (10:58→20:49)
[2019-05-24] MEDS: ASPIRIN 81 MG ENTERIC TAB PO SCH (10:58)
[2019-05-24] MEDS: ISOSORBIDE MON. (IMDUR) 30 MG XR TAB PO SCH (10:58)
[2019-05-24] MEDS: CARVedilol 12.5 MG TAB PO SCH ×2 (10:59→20:51)
[2019-05-24] MEDS: DOCUSATE SODIUM 100 MG CAP PO SCH ×2 (11:00→20:49)
[2019-05-24] MEDS: MULTIVITAMINS/MINERALS THERAP 1 TAB PO SCH (11:00)
[2019-05-24] MEDS: OMEPRAZOLE 20 MG CAP PO SCH (11:00)
[2019-05-24] MEDS: CINACALCET 30 MG TAB (SENSIPAR) PO SCH (11:00)
[2019-05-24] MEDS: IBUPROFEN 400 MG TAB PO SCH ×3 (11:00→20:49)
[2019-05-24] MEDS: ACETAMINOPHEN 500 MG TAB PO SCH ×3 (11:00→20:50)
[2019-05-24] MEDS ORDERED: ISOVUE-300 61% 50ML VIAL (Q9967) As Ordered ONE (16:00)
[2019-05-24] MEDS ORDERED: HEPARIN 1,000 UNITS/ML 10ML VIAL (FOR RADIOLOGY& DIALYSIS ONLY)(J1644-10) As Ordered ONE (16:00)
[2019-05-24] MEDS ORDERED: fentaNYL 100 MCG/2 ML INJECTION (J3010) As Ordered ONE (16:00)
[2019-05-24] MEDS ORDERED: MIDAZOLAM INJ 2 MG/2 ML VIAL (J2250) As Ordered ONE (16:00)
[2019-05-24] MEDS ORDERED: LIDOCAINE 1% MDV 20ML VIAL As Ordered ONE (16:01)
[2019-05-24] MEDS ORDERED: KETOROLAC 30 MG/ML VIAL (J1885) As Ordered ONE (16:28)
[2019-05-24] MEDS ORDERED: LIDOCAINE W/EPINEPHRINE 1% 20ML VIAL As Ordered ONE (17:47)
--- NOTE | 2019-05-24 18:03 | IPN ---
DATE: 05/24/2019 SUBJECTIVE: Mauricio is seen and examined this morning at the bedside and later in the afternoon in the hemodialysis unit receiving his treatment. He is on the operating room (OR) schedule with vascular surgery for an angiogram of the left lower extremity and for Perma-Cath removal this afternoon. His blood pressures were elevated this morning and his antihypertensives were resumed, although at a lower dose. He denies shortness of breath, nausea, vomiting, diarrhea and is anxious to go home. Temperature 97.4, pulse 84, respiratory rate 18, blood pressure 180/80, repeat blood pressure 168/80, saturating 98% on room air. Intake yesterday was 470. Goal dialysis removal today is 1.5 liters. Weight in the bed scale today is not recorded. GENERAL: The patient is seen awake, alert, oriented in the hemodialysis unit receiving his treatment, in no apparent distress. Extraocular muscles are intact and is moist. Neck is supple. Jugular veins are mildly elevated. Heart sounds are regular. S1, S2. There is no edema in the legs nor in the dependent area. Lungs are clear to auscultation. Equal air entry. No rale or rhonchi. There is a dry cough noted. There is a tunneled hemodialysis catheter in the left chest wall that is in use. Abdomen is soft and nontender. Peritoneal dialysis (PD) catheter exit site was not examined today. There is a dressing on his left great toe, which is not removed. NEUROLOGIC: He is oriented times three, interactive, conversational and at baseline mentation. SKIN: Normal temperature and turgor. LABORATORY DATA: White count 6.2, hemoglobin 9.7, platelet 244. Sodium 133, potassium 4.7, BUN 21. INPATIENT MEDICATIONS: Reviewed by myself. He was resumed on Carvedilol 12.5 mg by mouth twice daily and also on isosorbide 90 mg by mouth daily. Remainder of medications are unchanged from prior. PROBLEMS: 1. End-stage renal disease. The patient is receiving hemodialysis while he is in the rehabilitation unit. He is being dialyzed for just under 3 hours this afternoon with 1.5 liters to be was removed. He is going to have his Perma-Cath discontinued by vascular surgery this afternoon. At home, he will return to his chronic peritoneal dialysis cycler prescription with midday exchange. His volume status and electrolytes and fluid status are all acceptable and he is well dialyzed 2. Hypertension with end-stage renal disease. The patient had symptomatic hypotension with lethargy and mental status changes and his last hemodialysis treatment on Tuesday was also complicated by hypotension of hemodialysis. His blood pressure medications were held for more than a day and this morning he is hypertensive and his beta marlo is resumed, but at a lower dose (Carvedilol 12.5 mg by mouth twice a day) and he is also resumed on Imdur extended release 90 mg by mouth daily (which was lower than the dose he was previously taking). Minoxidil and clonidine patch remain held. 3. Chronic combined congestive heart failure. No fluid resume was removed with Tuesday's hemodialysis treatment because of significant hypotension with hemodialysis. Today, we are removing 1.5 liters. At home, he will continue with his usual peritoneal dialysis prescription and with his fluid restriction. 4. Anemia related to chronic renal failure and inflammation. He continues on Aranesp. hemoglobin is stable. DISPOSITION: The patient is for angiogram and Perma-Cath removal this afternoon with vascular surgery and can likely be discharged on 05/25/2019.
--- NOTE | 2019-05-24 19:08 | ROOPDOC ---
[facility] Report Of Operation Report of Operation DATE OF PROCEDURE: 05/24/19 PREPROCEDURE DIAGNOSES: 1. End-stage renal disease no longer requiring PermCath for dialysis 2. Atherosclerosis in the [place] vessels with nonhealing wound and pain left first toe POSTPROCEDURE DIAGNOSES: Same PROCEDURE: 1. Removal left IJ PermCath 2. Ultrasound-guided access right common femoral artery 3. Selection of left superficial femoral artery and left lower extremity runoff 4. Angioplasty of the left anterior tibial artery with a 2 x 220 and 2.5 x 220 Axel balloons 5. Angioplasty of the left posterior tibial artery with a 2.5 x 220 Axel balloon 6. Angioplasty of the left proximal popliteal artery and distal SFA artery with a 6 x 200 Billings balloon 7. Completion arteriograms SURGEON: Ella Canseco MD ANESTHESIA: Local anesthesia 13 mL lidocaine. Moderate intravenous conscious sedation was supervised by Dr. Canseco. The patient was and apparently monitored by registered nurses sign at the Department of radiology using automated blood pressure, EKG, and pulse oximetry. The detailed sedation record is permanently stored in the hospital information system. The following is the brief sedation record: Start time 16:28. Time 18:23, Versed 1 mg IV, Toradol 30 mg IV, heparin 3000 units IV. CONTRAST: 80 mL Isovue-300 INDICATION FOR PROCEDURE: This is a very pleasant 79-year-old gentleman with end-stage renal disease who dialyzes at home with peritoneal dialysis but was on hemodialysis during this admission, now no longer requiring his PermCath for dialysis. He had his last hemodialysis treatment today. We will remove his PermCath in the risks benefits and alternatives were explained. The patient will resume peritoneal dialysis when he goes home tomorrow. The patient also has significant atherosclerotic disease and a nonhealing wound of the left first toe with significant unyielding pain from the toe. He says he is in constant writhing pain. We again went over the risks benefits and alternatives to an arteriogram with attempted angioplasty and/or stenting if needed. We did explain to the patient that re-intervention may not significantly improve his pain or provide significant improvement in arterial flow, but we are happy to try and see if we can give him any better outflow to the foot to see if this might help with his toe pain, healing of the toe, or healing of a toe amputation if that is ultimately what is necessary. After a lengthy discussion with the patient and his , they are agreeable to proceed. Informed consent was obtained. INTERPRETATION: 1. The entire arterial tree in the lower extremities is heavily calcified and visible on plain fluoroscopy without contrast. The left lower extremity has widely patent inflow through the SFA, and a 40% stenosis at Pascual's canal and a 40% stenosis at the proximal popliteal artery, and a 50% stenosis at the mid pop liteal artery. There is limited flow through the anterior tibial artery due to heavy calcification and occlusion in the proximal third with reconstitution distally and limited runoff to the foot. The peroneal artery is widely patent without obvious significant stenosis. The posterior tibial artery has several areas of focal stenosis, and in the proximal third there is a focal area of 70% stenosis, in the mid distal aspect of the vessel there is a 90% focal stenosis, and at the ankle there are several additional focal stenoses across to the foot. The posterior tibial provides the most in-line flow to the distal foot and the toe. 2. After crossing the occlusions and extensive angioplasties of the anterior tibial artery, there was sluggish in-line flow to the foot. It is certainly not as rapid or significant as the other 2 tibial vessels, mostly due to bulky plaque at the area of previous occlusion. Initial angioplasties resulted in the balloons rupturing due to sharp calcified plaque, but eventually we were able to successfully angioplasty. No extravasation or embolization noted. There is a mild dissection noted the area of occlusion, but it is improved after multiple angioplasties. 3. After angioplasty of the posterior tibial artery multiple times across each o f the heavily stenotic areas, we did have improved in-line flow to the distal foot through the posterior tibial artery into the plantar vessels with less than 20% residual stenoses each of the areas. No extravasation embolization or dissection noted. 4. After angioplasty of the distal SFA and proximal popliteal artery, there is widely patent inflow through to the tibials with no extravasation embolization or dissection noted. REPORT OF OPERATION: The patient was brought to the operating room in stable condition and his bilateral groins were prepped and draped in a sterile fashion. A timeout was performed. Sedation was administered without complication, and we used very minimal sedation with no narcotics at the request of the patient and his . He says he has significant confusion after narcotics, and requested we try to avoid them if possible. We are certainly happy to comply with this. He did receive minimal Versed, but for analgesia we used Toradol. Local anesthesia was administered to the skin and subcutaneous tissue over the right common femoral artery and a microneedle was used to access the artery under ultrasound guidance. A wire was passed through this access and the needle was removed. A micro-sheath was placed and flushed with saline. We Glidewire was advanced through this into the central system under fluoroscopic guidance. We then exchanged for 6 [place] sheath and flushed the sheath with saline. We went up and over the bifurcation with an Omni flushed catheter in the Glidewire and selected the left superficial femoral artery. We examine the patient's previous arteriogram and were not worried about the inflow, but we did do a quick contrast injection through the SFA and popliteal to ensure there is still widely patent. We did note some stenoses in the distal SFA and popliteal, please interpretation above. We then performed arteriograms of the tibial vessels, please interpretation above. We advanced the wire into the distal popliteal artery and exchanged sheath for 90 cm 6 [place] sheath and flushed the sheath was saline. We then were able to navigate the Glidewire into the anterior tibial artery proximally, but could not advance it through the occlusion a few centimeters from the origin. We selected an O35 [place] catheter and we were able to cross through the anterior tibial artery. We then exchanged the wire for an O18 Glidewire advantage through the [place] catheter. We advanced this wire distally to the ankle, but were not able to completely cross into the foot. We attempted to pass a 2.5 x 2 20 balloon over the wire, but we could not advance it past the occlusion. We did angioplasty proximally, hoping this might open up a tract within the occlusion to advance the balloon further, but this was unsuccessful. We therefore removed the balloon and passed in ON 8 [place] catheter over the wire several times back and forth to try to create a tract for angioplasty. We then change the balloon to a 2 x 220 Axel balloon and we were able to advance his distally all the way to the ankle and a three-minute i nflation was performed. We then did a second angioplasty more proximally across the proximal half of the vessel, and we were able to angioplasty for about 1 minute and then the balloon ruptured. We removed this balloon and replaced at 2.5 x 220 balloon. We were successful at inflating the balloon for about 2 minutes, and then this balloon ruptured as well. The plaque is very heavy and calcified, and sharp, and it was difficult to angioplasty with the balloons. We attempted to pass a 3 mm Billings balloon across the area, but it would not track through the heavy plaque. We then selected another 2.5 x 220 balloon and we were successful at crossing through the area of heavy plaque and angioplasty for three-minute inflations. Unfortunately, on the second three-minute inflation, this balloon ruptured as well. At this point I felt we with leave the anterior tibial alone for a moment and turn our attention to the posterior tibial artery. Applied cath and the O18 Glidewire advantage were used to select the posterior t ibial artery and the wire was carefully advanced down to the ankle. We then angioplastied with a new 2.5 x 220 Axel balloon for three-minute inflations across the length of the vessel. There was still some tight residual stenosis near the ankle the foot, and these areas were re-angioplasty several times for three-minute inflations until we had in-line flow to the foot with less significant residual stenosis. It certainly is not perfect, but it is much better and fills the foot rapidly. We then returned to the anterior tibial artery for one last angioplasty. Following this three-minute inflation, we noted sluggish flow through the anterior tibial artery all the way to the foot, but it is not as rapid as the peroneal or posterior tibial artery. Hopefully it will provide some additional flow, although it is not perfect either. We then retracted our 90 cm sheath to the mid SFA and selected a 6 x 200 Billings balloon and angioplasty to cross the distal SFA and proximal half of the popliteal artery for three-minute inflation. There were several areas of fairly tight waist on the balloon, and the patient experienced a bit of pain with the initial inflation, so I think this was worthwhile to do. After three-minute inflation, we saw widely patent flow through the distal SFA and popliteal with no dissection embolization or extravasation. We then exchanged sheath for short 6 [place] sheath and a platelet Mynx closure device in the right common femoral artery with good hemostasis. Pressure was held for 10 minutes and sterile dressings were applied. The left chest including the PermCath was prepped and draped in a sterile fashion. The sutures attaching the PermCath and chest were cut and removed. The cuff was loosened from the subcutaneous tissue after anesthetizing with lidocaine with epinephrine. The catheter was removed and pressure was held jugular access site for 10 minutes for good hemostasis. Sterile dressings were applied. The patient was then taken to recovery in stable condition and was returned to the rehabilitation unit in stable condition. He tolerated the procedure and the sedation well. ESTIMATED BLOOD LOSS: Approximately 5 mL. COMPLICATIONS: None. PLAN: Patient will have 4 hours bedrest postprocedure and then can resume activity as tolerated, but no heavy lifting or strenuous exercise for 48 hours. Okay to resume preoperative diet. Okay to resume preoperative medications. We'll see the patient back in a week to check his groin access site and see how he is doing. He will continue with peritoneal dialysis when he is discharged home tomorrow. Okay to remove dressings right groin and left chest tomorrow and replace with dry dressing as needed or leave open to air is dry. Okay to shower from vascular standpoint tomorrow. ELLA CANSECO MD May 24, 2019 19:08
[2019-05-24] MEDS ORDERED: ONDANSETRON 4MG/2ML VIAL (J2405) IV ONE (20:00)
[2019-05-24] MEDS: SENNA 8.6 MG TAB (SENOKOT) PO SCH (20:51)
[2019-05-25] VITALS: BP 150/80
[2019-05-25 04:00] VITALS: BP 150/90
[2019-05-25 06:00] VITALS: BP 160/90
[2019-05-25] MEDS: HEPARIN SOD (PORCINE) 5000 UNITS/ML VIAL (J1644 PER 1000UNITS) SC SCH (06:00)
[2019-05-25] MEDS: IPRATROPIUM 0.5MG/ALBUTEROL 2.5MG INH SOL UD 3ML (DUONEB)(J7620) NEB SCH (07:42)
--- NOTE | 2019-05-25 07:50 | IPNPDOC ---
Date Seen The patient was seen on 05/25/19. Progress Note Patient seen and examined postprocedure day 1 status post left lower extremity arteriogram and angioplasty of the left SFA, popliteal, anterior tibial, and posterior tibial arteries, and removal left IJ PermCath. He is stable and doing well, but does complain of increased pins and needles pain in his entire left foot, not just the toe. The foot is very warm and hyperemic, there is a strong biphasic PT signal, a biphasic DP signal. I discussed with the patient that sometimes with increased blood flow, there may be a bit of increased pain initially as the nerves receive increased perfusion. Hopefully this will start to subside in a few days. I also discussed with him again that I think the pain in his toe may be unrelated to arterial disease and may or may not improve with increased perfusion. His right groin access site is soft with no bruising or hematoma. His left IJ catheter removal site is clean dry and intact with no bleeding on the dressing and no jugular hematoma present. Per the patient and his , the plan is for discharge home today. This is fine from a vascular surgery standpoint. The patient takes an aspirin daily, but I do not see that he is on a statin. He absolutely should be on a statin if there is no contraindication. He has heavily calcified vessels, and his vascular disease is likely to be progressive. Anything we can do from a medical management standp oint to slow this down is imperative. We would like to see him back in a week to check his groin access site and see how he is doing. Please set up clinic appointment prior to discharge. We appreciate the opportunity to participate in the care of this patient. VS, I&O, 24H, Dhavalbone Vital Signs/I&O Vital Signs Date Time Temp Pulse Resp B/P (MAP) Pulse Ox O2 Delivery O2 Flow Rate FiO2 05/25/19 06:00 97.8 81 19 160/90 (113) 98 Room Air 05/24/19 18:10 2 I&O- Last 24 Hours up to 6 AM 05/25/19 05:59 Intake Total 240 ml Output Total 1500 ml Balance -1260 ml Laboratory Data 24H LABS Laboratory Tests 2 05/24/19 08:28: Nucleated Red Blood Cells % (auto) 0.0, Anion Gap 10, Glomerular Filtration Rate 8.5L, Calcium Level 9.1 CBC/BMP Laboratory Tests 05/24/19 08:28 ELLA STEPHENSON MD May 25, 2019 07:50
[2019-05-25] MEDS: CALCIUM ACETATE 667 MG GELCAP PO SCH (08:00)
[2019-05-25] MEDS: (RENVELA) SEVELAMER **CARBONate** 800 MG TAB PO SCH (08:00)
[2019-05-25] MEDS ORDERED: CLOPIDOGREL 75 MG TAB PO SCH (09:00)
[2019-05-25] MEDS: REMEDY PHYTOPLEX Z-GUARD PASTE 113GM TUBE (FROM STOREROOM PRODUCT) TOP SCH (09:00)
[2019-05-25] MEDS ORDERED: CLOP75TA2 PO (09:34)
[2019-05-25] MEDS ORDERED: LIPI20TA PO (09:34)
--- NOTE | 2019-05-25 10:05 | IPNPDOC ---
Text Note Date of Service The patient was seen on 05/25/19. NOTE Vascular surgery Dr Canseco. Patient seen and examined postprocedure day 1 status post left lower extremity arteriogram and angioplasty of the left SFA, popliteal, anterior tibial, and posterior tibial arteries, and removal left IJ PermCath. He is stable and doing well. He continues to complain of increased pins and needles pain in his entire left foot. The foot is very warm, there is a strong biphasic PT signal, a biphasic DP signal. There is a dark discoloration at the tip of the great toe and wound around the nail, no drainage. His right groin access site is soft with no bruising or hematoma. His left IJ catheter removal site is clean dry and intact with no bleeding on the dressing and no jugular hematoma present. Per the patient and his , the plan is for discharge home today. This is fine from a vascular surgery standpoint. The patient takes an aspirin daily, Plan as d/w Dr Canseco is to add Plavix 75 mg daily. Would recommend the addition of statin. Continued outpatient management would be with the patient's primary care provider. I do not see an allergy or intolerance listed in the patient's chart, no side effects reported as per the patient this morning. I have reviewed this recommendation with the patient's attending physician, Dr. Portillo. As previously discussed by Dr. Canseco, he has heavily calcified vessels, and his vascular disease is likely to be progressive. Anything we can do from a medical management standpoint to slow this down is imperative. The patient should follow up with vascular surgery in approximately 7 days to check his groin access site and see how he is doing. VS,Fishbone, I+O VS, Fishbone, I+O Vital Signs Date Time Temp Pulse Resp B/P (MAP) Pulse Ox O2 Delivery O2 Flow Rate FiO2 05/25/19 06:00 97.8 81 19 160/90 (113) 98 Room Air 05/24/19 18:10 2 I&O- Last 24 Hours up to 6 AM 05/25/19 06:00 Intake Total 240 ml Output Total 1500 ml Balance -1260 ml Puja Garcia May 25, 2019 10:05
[2019-05-25] MEDS: DOCUSATE SODIUM 100 MG CAP PO SCH (11:38)
[2019-05-25] MEDS: guaiFENesin ER 600 MG TAB PO SCH (11:38)
[2019-05-25] MEDS: VITAMIN D 1,000 INTERNATIONAL UNITS TABLET PO SCH (11:39)
[2019-05-25] MEDS: ACETAMINOPHEN 500 MG TAB PO SCH (11:40)
[2019-05-25] MEDS: OMEPRAZOLE 20 MG CAP PO SCH (11:41)
[2019-05-25] MEDS: IBUPROFEN 400 MG TAB PO SCH (11:41)
[2019-05-25 11:42] VITALS: BP 155/88
[2019-05-25] MEDS: ASPIRIN 81 MG ENTERIC TAB PO SCH (11:42)
[2019-05-25] MEDS: CINACALCET 30 MG TAB (SENSIPAR) PO SCH (11:42)
[2019-05-25] MEDS: ISOSORBIDE MON. (IMDUR) 30 MG XR TAB PO SCH (11:42)
[2019-05-25] MEDS: MULTIVITAMINS/MINERALS THERAP 1 TAB PO SCH (11:43)
[2019-05-25] MEDS: CARVedilol 12.5 MG TAB PO SCH (11:43)
--- NOTE | 2019-06-19 20:32 | PMRDS ---
DATE OF ADMISSION: 05/11/2019 DATE OF DISCHARGE: 05/25/2019 CHIEF COMPLAINT/DISCHARGE DIAGNOSIS: Encephalopathy in the setting of end-stage renal disease. HISTORY OF PRESENT ILLNESS: 78-year-old male with a past medical history of hypertension with end stage renal disease on peritoneal dialysis, status post bilateral nephrectomies for renal cancer, chronic systolic/diastolic congestive heart failure (CHF), hypertension, coronary artery disease, history of prostate cancer status post prostatectomy who presented to [facility] emergency department on 05/01/2018 with encephalopathy and found to have a left 1st toe digit ulcer. He was started on IV antibiotics and evaluated by vascular surgery. He eventually underwent an angiogram on 05/09/2019 showing patent SFA profunda and popliteal. two vessel run off into foot. Scattered atherosclerotic disease especially involving anterior tibial artery. He was followed by renal who managed his end stage renal disease and switched him from peritoneal to hemodialysis. In the setting of persistent confusion MRI and CT brain were ordered, but both negative for infarct or hemorrhage to explain his altered mentation. MRI of his toe showed, Soft-tissue swelling about the great toe particularly medial and volar aspect. There is marrow edema pattern in the distal phalanx of the great toe but no cortical disruption or low T1 signal intensity. No definite osteomyelitis. He was taken off antibiotics given no concern for osteomyelitis, evaluated by therapy where he was found to below his prior level of function and deemed medically appropriate for discharge to ARU on 05/11/2019. PAST MEDICAL HISTORY: As per history of present illness (HPI). HOSPITAL COURSE: The patient was admitted and enrolled in a comprehensive physical therapy (PT), occupational therapy (OT), speech and language pathology program. He received 24-hour nursing supervision and weekly team meetings were held to discuss his progress. The patient was maintained on hemodialysis during his hospital course, and had difficulty with altered mentation that seemed to correlate with post dialysis days. He had significant left first digit toe pain, was trialed on Pamelor for neuropathic pain relief in addition to ibuprofen and Tylenol. However, the patient declined further use of Pamelor, concerned that it might be contributing to his altered mental status. Repeat MRI was ordered as concern for possible osteomyelitis. However, this MRI was negative of his left foot. His blood pressure medications were initially increased due to elevated hypertension. However, later his blood pressure medications were decreased significantly due to severe hypotension during a dialysis day which resulted in dysarthria which was transient. The patient had fluctuating days of functional ability and mentation. His was thoroughly trained to assist him at home and he was deemed medically and functionally stable to return home. DISCHARGE MEDICATIONS: As per instructions. FUNCTIONAL HISTORY: On discharge, the patient was modified independent for all functional transfers, contact guard for stairs using a platform rolling walker. In occupational therapy, he was modified independent for toileting, standby assist for bathing and standby assist for upper body dressing and minimal assist for lower body dressing. Thank you for this referral.
== END 2019-05-25 14:15 | disposition home health service (06) | DRG 939 ==
LOC: M PM&R 13:40
PROVIDERS: ADMIT Physical Medicine & Rehabilitation; ATTEND Physical Medicine & Rehabilitation
PROC: 5A1D70Z Performance of Urinary Filtration, Intermittent, Less than 6 Hours Per Day (ICD-10-PCS; 2019-05-12)
PROC: 047N3DZ Dilation of Left Popliteal Artery with Intraluminal Device, Percutaneous Approach (ICD-10-PCS; 2019-05-24)
PROC: 047L3DZ Dilation of Left Femoral Artery with Intraluminal Device, Percutaneous Approach (ICD-10-PCS; 2019-05-24)
PROC: 05PY33Z Removal of Infusion Device from Upper Vein, Percutaneous Approach (ICD-10-PCS; 2019-05-24)
PROC: B40GYZZ Plain Radiography of Left Lower Extremity Arteries using Other Contrast (ICD-10-PCS; 2019-05-24)
PROC: 047Q3DZ Dilation of Left Anterior Tibial Artery with Intraluminal Device, Percutaneous Approach (ICD-10-PCS; principal; 2019-05-24 15:39)
PROC: 047S3DZ Dilation of Left Posterior Tibial Artery with Intraluminal Device, Percutaneous Approach (ICD-10-PCS; 2019-05-24 15:39)
DX: R53.1 Weakness (principal); N18.6 End stage renal disease; I13.2 Hypertensive heart and chronic kidney disease with heart failure and with stage 5 chronic kidney disease, or end stage renal disease; I50.42 Chronic combined systolic (congestive) and diastolic (congestive) heart failure; N25.81 Secondary hyperparathyroidism of renal origin; R26.89 Other abnormalities of gait and mobility; D63.1 Anemia in chronic kidney disease; Z66 Do not resuscitate; I70.245 Atherosclerosis of native arteries of left leg with ulceration of other part of foot; L97.523 Non-pressure chronic ulcer of other part of left foot with necrosis of muscle; I27.20 Pulmonary hypertension, unspecified; M10.9 Gout, unspecified; R53.83 Other fatigue; T40.2X5A Adverse effect of other opioids, initial encounter; I70.0 Atherosclerosis of aorta; E04.2 Nontoxic multinodular goiter; K21.9 Gastro-esophageal reflux disease without esophagitis; E87.5 Hyperkalemia; I25.10 Atherosclerotic heart disease of native coronary artery without angina pectoris; I95.3 Hypotension of hemodialysis; R41.0 Disorientation, unspecified; Z90.5 Acquired absence of kidney; Z85.528 Personal history of other malignant neoplasm of kidney; Z87.891 Personal history of nicotine dependence; Z85.46 Personal history of malignant neoplasm of prostate; Z79.82 Long term (current) use of aspirin; Z79.899 Other long term (current) drug therapy; Z88.1 Allergy status to other antibiotic agents; Z88.8 Allergy status to other drugs, medicaments and biological substances; Z99.2 Dependence on renal dialysis

== ENCOUNTER → 2019-06-01 | Outpatient (REF) | payer MEDICARE, OTHER ==
[~2019-06-01] MED LIST changes: +ASPI81TAEC PO; +CARV12.5 PO; +CINA30TA5 PO; +CLOP75TA2 PO; +ISOS120T7 PO; +LIPI20TA PO; +OMEP-218 PO; +VITAD1000T PO
== END ==
LOC: M LAB REF 14:19
PROVIDERS: ATTEND Surgery
DX: L97.524 Non-pressure chronic ulcer of other part of left foot with necrosis of bone (principal)
CPT/HCPCS: 11044; 87070; 88304; G0463

== ENCOUNTER 2019-07-26 13:41 | Inpatient (IN) | payer MEDICARE, OTHER ==
[~2019-07-26] VITALS: Ht 174 cm; Wt 78.9 kg
[2019-07-26 16:50] VITALS: BP 135/89
[2019-07-26 18:20] LABS: HEMATOCRIT 24.7 % (42.0-52.0); HEMOGLOBIN 8.5 g/dl (13.5-17.5); MEAN CORPUSCULAR HEMOGLOBIN 31.6 pg (27.0-33.0); MEAN CORPUSCULAR HGB CONC 34.4 g/dl (32.0-36.5); MEAN CORPUSCULAR VOLUME 91.8 fl (80.0-96.0); PLATELET COUNT, AUTOMATED 286 10^3/uL (150-450); RED BLOOD COUNT 2.69 10^6/uL (4.30-6.10); WHITE BLOOD COUNT 8.9 10^3/uL (4.0-10.0)
--- NOTE | 2019-07-26 18:25 | HPEPDOC ---
General Date of Admission 07/26/2019 Date of Service: Jul 26, 2019 Attending Physician: KARLI SMITH MD Chief Complaint The patient is a 79-year-old male admitted with a reason for visit of Renal Failure. Source: Patient, Old records Exam Limitations: No limitations Timing/Duration: Day(s) Associated Symptoms: Shortness of breath History of Present Illness 79-year-old M with a history of renal cell cancer s/p bilateral nephrectomies previously on PD, recently switched to HD, congestive heart failure, hypertension, gout, anemia of chronic renal failure, secondary hyperparathyroidism of renal origin and CAD who is being admitted as a transfer from [facility] after presenting with brief episode of unresponsiveness with spontaneous recovery and found to be relatively hypotensive to SBP 90s requiring fluid resuscitation and now being transferred with to [facility] with c/f sepsis with a mild troponinemia and non ischemic EKG with no complaints of luis chest pain. On arrival he is hemodynamically stable, reports his baseline R great toe pain and is breathing comfortably on room air. He reports poor PO since discharge home but has been having his PD per home scripts, no fever, chills, prior episodes of syncope, no visitors, travel, chest pain, cough, abdominal pain or diarrhea. He missed his appointment today with Dr. Forman. Home Medications Scheduled Aspirin (Aspir 81) 81 Mg Tab, 81 MG PO DAILY, (Reported) Aspirin (Aspirin EC) 81 Mg Tablet.dr, 81 MG PO DAILY Atorvastatin Calcium (Lipitor) 20 Mg Tablet, 40 MG PO DAILY Calcium Acetate (Calcium Acetate) 667 Mg Cap, 667 MG PO WM, (Reported) Calcium Acetate (Calcium Acetate) 667 Mg Capsule, 667 MG PO WM Carvedilol (Carvedilol) 12.5 Mg Tablet, 12.5 MG PO BID Cholecalciferol (Vitamin D3) (Vitamin D3) 1,000 Unit Capsule, 2,000 UNIT PO DAILY, (Reported) Cholecalciferol (Vitamin D3) (Vitamin D3) 1,000 Unit Tablet, 2,000 UNITS PO DAILY Cinacalcet (Sensipar) 30 Mg Tab, 60 MG PO DAILY, (Reported) Cinacalcet HCl (Cinacalcet HCl) 30 Mg Tablet, 30 MG PO DAILY Clopidogrel Bisulfate (Clopidogrel) 75 Mg Tablet, 75 MG PO DAILY Epoetin Irving (Procrit) 20,000 Unit/1 Ml Vial, 20,000 UNIT SC 1XWK, (Reported) MON Isosorbide Mononitrate (Isosorbide Mononitrate ER) 30 Mg Tab.er.24h, 3 TAB PO DAILY Multivitamins (Thera M Plus Tablet) 1 Tab Tab, 1 TAB PO DAILY, (Reported) Omeprazole (Omeprazole) 20 Mg Cap, 20 MG PO DAILY, (Reported) Omeprazole (Omeprazole) 20 Mg Capsule.dr, 20 MG PO DAILY Sevelamer Carbonate (Renvela) 800 Mg Tablet, 800 MG PO WM, (Reported) Sevelamer Carbonate (Renvela) 800 Mg Tablet, 800 MG PO WM Scheduled PRN Acetaminophen (Acetaminophen) 325 Mg Tablet, 650 MG PO Q4H PRN for PAIN OR FEVER Albuterol Sulfate (Proventil Hfa) 6.7 Gm Hfa.aer.ad, 2 PUFF INH QID PRN for SOB/WHEEZING, (Reported) Allopurinol (Allopurinol) 100 Mg Tablet, 100 MG PO DAILY PRN for GOUT FLARE UPS, (Reported) Docusate Sodium (Docusate Sodium) 100 Mg Capsule, 100 MG PO Q12HP PRN for CONSTIPATION Febuxostat (Uloric) 40 Mg Tab, 40 MG PO DAILY PRN for GOUT FLARE UPS, (Reported) Ipratropium/Albuterol Sulfate (Iprat-Albut 0.5-3(2.5) mg/3 ml) 3 Ml Ampul.neb, 3 ML NEB Q8HP PRN for SOB/WHEEZING Allergies Coded Allergies: amlodipine (Verified Allergy, Unknown, 05/01/19) indomethacin (Verified Allergy, Unknown, 05/01/19) nifedipine (Verified Allergy, Unknown, 05/01/19) hydralazine (Verified Adverse Reaction, Mild, ELEVATED BP, 05/01/19) Past Medical History Medical History 1. End-stage renal disease on peritoneal dialysis. 2. History of hypertensive nephrosclerosis. 3. Anemia of chronic renal failure. 4. Gout. 5. Congestive heart failure. 6. Hypertension. 7. Pulmonary hypertension 8. Gastroesophageal reflux disease (GERD). 9. Coronary artery disease. 10. History of prostate cancer. 11. Systemic hypertension. 12. Renal cell cancer. Surgical History 1. Tunneled hemodialysis catheter placement 2. Peritoneal dialysis catheter placement. 3. Status post bilateral nephrectomy. 4. Status post prostatectomy. Family History Significant Family History: No pertinent family hx No family history of renal failure requiring dialysis. Social History * Smoker: former Smoker Alcohol: Denies Drugs: denies Recent Travel/Sick Contacts: Denies: Recent travel, Recent sick contacts Ex-smoker, , lives with his . No alcohol or drug use. A-FIB/CHADSVASC A-FIB History Current/History of A-Fib/PAF?: No Current PO Anticoag Therapy: No Age/Risk Factor Scoring CHADSVASC: CHADSVASC Response (Comments) Value Age Risk Factor Age >/= 75 years old 2 Gender Risk Factor Male 0 Hx of CHF Yes 1 Hx of HTN Yes 1 Hx of Stroke/TIA/or VTE No 0 Hx of Diabetes No 0 Hx of Vascular Disease Yes 1 Total 5 Treatment Treatment ordered: NONE Reason Anticoagulant not given: Not indicated/[id number] Review of Systems Constitutional: Denies: Chills, Fever, Night Sweats Eyes: Denies: Pain, Vision change ENT: Denies: Head Aches, Ear Pain, Dysphagia Skin: Denies: Rash, Lesions, Breakdown Pulmonary: Reports: Dyspnea; Denies: Cough Cardiovascular: Reports: Edema; Denies: Chest Pain, Palpitations, Orthopnea, Paroxysmal Noc. Dyspnea, Lt Headedness Gastrointestinal: Denies: Nausea, Vomiting, Abdominal Pain, Diarrhea Genitourinary: Denies: Dysuria, Frequency, Incontinence, Retention Hematologic: Denies: Bruising, Bleeding Excessively Endocrine: Denies: Polydipsia, Polyphagia, Polyuria, Heat Intolerance, Cold Intolerance, Other Endocrine Sx Musculoskeletal: Denies: Neck Pain, Back Pain, Joint Pain, Muscle Pain, Spasms Neurological: Denies: Weakness, Numbness, Change in speech, Confusion Psych: Reports: Mood Normal; Denies: Depression, Memory Issues Physical Examination General Exam: Positive: Alert, No Acute Distress Eye Exam: Positive: PERRLA, Conjunctiva & lids normal, EOMI; Negative: Sclera icteric ENT Exam: Positive: Atraumatic, Mucous membr. moist/pink, Pharynx Normal Neck Exam: Positive: Supple; Negative: JVD, thyromegaly Chest Exam: Positive: Clear to auscultation (trace basilar crackles, otherwise clear), Normal air movement; Negative: Rhonchi, Wheezing Heart Exam: Positive: Rate Normal, Regular Rhythm, Normal S1, Normal S2, Murmurs (2/6 pansystolic murmur heard throughout precordium) Telemetry: Positive: AV Block (1st degree heart block), PVCs, PACs Abdomen Exam: Positive: Normal bowel sounds, Soft; Negative: Tenderness, Hepatospenomegaly Extremity Exam: Positive: Edema (trace LE edema bilaterally) Skin Exam: Positive: Nl turgor and temperature; Negative: Breakdown, Lesion Neuro Exam: Positive: Normal Speech, Strength at 5/5 X4 ext, Cranial Nerves 3- 12 NL Psych Exam: Positive: Mental status NL, Mood NL, Oriented x 3 Vital Signs hemodynamically stable and afebrile Assessment/Plan 79-year-old M with a history of renal cell cancer s/p bilateral nephrectomies previously on PD, recently switched to HD, congestive heart failure, hyperten frederick, anemia of chronic renal failure, secondary hyperparathyroidism of renal origin and CAD who is being admitted as a transfer from [facility] after being brought in for a brief episode of unresponsiveness and found to be relatively hypotensive and found with a mild troponinemia and elevated lactate c/f infection. Unresponsive episode: -no FSBG from juventino episode, with report of poor PO, possibly symptomatic hypoglycemia -given the lactate >4, c/f infection given reported relative hypotension --> will empirically cover with vanc/pip tazo, BCx and will send PD fluid -telemetry -check orthostatics -check fresh set of labs CBC, CMP, lactate Elevated troponin: -denies having any chest pain, likely 2/2 ESRD. -Telemetry -trend troponin -follow-up EKG -proBNP -trend troponin x 3 ESRD on PD with chronic anemia -Monitor I's and O's and daily weights -Nephrology consult for volume optimization -Med rec still ongoing, will plan to continue Sensipar, sevelamer and Procrit as scheduled -renal diet Acute on chronic systolic/diastolic CHF: He is clinically decompensated -Monitor I's and O's, -daily weights -2g salt and 1.5L fluid restriction - hold metoprolol given recent hypotension, to restart when hemodynamically appropriate Chronic hypertension -Hold home metoprolol and isosorbide until hemodynamically appropriate Gout secondary to ESRD -Continue allopurinol and Febuxostat Chronic CAD -Continue aspirin, hold metoprolol for now as noted above PVD with R great toe wound: -check doppler pulses DVT PROPHYLAXIS: Heparin prophylaxis dose DISPOSITION: Home versus placement after more than 2 midnights stay Plan / VTE VTE Prophylaxis Ordered?: Yes KARLI SMITH MD Jul 26, 2019 17:26
[2019-07-26 18:28] LABS: ABG BASE EXCESS 2.2 (-2.0-2.0); ABG HCO3 26.7 MEQ/L (22.0-26.0); ABG O2 SATURATION 99.2 % (95.0-99.0); ABG PARTIAL PRESSURE CO2 41.4 mmHg (35.0-45.0); ABG PARTIAL PRESSURE O2 132.8 mmHg (75.0-100.0); ABG STANDARD HCO3 26.5 MEQ/L (22.0-26.0); ABG pH (ARTERIAL) 7.428 UNITS (7.350-7.450)
[2019-07-26] MEDS ORDERED: [UNRECOGNIZED DRUG - CODE] INJ (18:47)
[2019-07-26] MEDS ORDERED: ATOR40TA75 PO (18:47)
[2019-07-26] MEDS ORDERED: RENV2TAB PO (18:47)
[2019-07-26] MEDS ORDERED: OMEP-218 PO (18:47)
[2019-07-26] MEDS ORDERED: COLA100C5 PO (18:47)
[2019-07-26] MEDS ORDERED: ASPI81TA85 PO (18:47)
[2019-07-26] MEDS ORDERED: SPIR1CAP INH (18:47)
[2019-07-26] MEDS ORDERED: HEPA100I26 IV (18:47)
[2019-07-26] MEDS ORDERED: PARI1CAP3 PO (18:47)
[2019-07-26] MEDS ORDERED: IPRA0.00 NEB (18:48)
[2019-07-26] MEDS ORDERED: VITMTA PO (18:48)
[2019-07-26] MEDS ORDERED: DARBEPOETIN 200MCG/0.4ML *NON-DIALYSIS* SYRINGE (J0881 PER 1MCG) SC SCH (19:00)
[2019-07-26 19:08] LABS: ALBUMIN 2.7 GM/DL (3.2-5.2); BILIRUBIN,TOTAL 0.3 MG/DL (0.2-1.0); CALCIUM LEVEL 9.5 MG/DL (8.8-10.2); CK-MB VALUE MASS 3.3 NG/ML (<3.6); CREATININE FOR GFR 9.87 MG/DL (0.70-1.30); GLOMERULAR FILTRATION RATE 5.5 (>42); MB/CK RELATIVE INDEX 0.66 (< OR =4); PERCENT SATURATION 76.8 % (19.7-50.0); POTASSIUM SERUM 2.7 MEQ/L (3.5-5.1); TOTAL PROTEIN 6.5 GM/DL (6.4-8.2); TROPONIN I 0.12 NG/ML (< 0.10)
[2019-07-26 20:00] VITALS: BP 126/76
[2019-07-26] MEDS ORDERED: MAG SULF 1GM/100ML (MAG RUN) 1 GM in IV 1 EA IV ONE (20:00)
[2019-07-26] MEDS ORDERED: POTASSIUM CHLORIDE 10 MEQ SR TABLET PO ONE (20:00)
[2019-07-26 20:08] LABS: MAGNESIUM LEVEL 1.4 MG/DL (1.8-2.4)
[2019-07-26] MEDS ORDERED: VANCOMYCIN HCL 1,000 MG, VIAL MATE ADAPTER 1 EACH in D5W 250 ML IV ONE (21:00)
[2019-07-26] MEDS: HEPARIN SOD (PORCINE) 5000UNITS/ML VIAL (J1644 PER 1000UNITS) SC SCH (21:00)
[2019-07-26] MEDS: PIPERACILLIN/TAZOBACTAM SOD 2.25 GM in D5W MINI-BAG PLUS 50 ML IV SCH (21:43)
[2019-07-26] MEDS: ACETAMINOPHEN TAB 650MG DOSE (2X325MG) PO PRN (22:07)
[2019-07-27] VITALS: BP 136/64
[2019-07-27 04:00] VITALS: BP 134/62
[2019-07-27] MEDS ORDERED: SLF 3 ML SYR IV PRN (04:45)
[2019-07-27] MEDS ORDERED: VANCOMYCIN INTERMITTENT/PULSE DOSING BY CLINICAL PHARMACIST PER DOSING PROTOCOL XX SCH (04:45)
[2019-07-27] MEDS: ACETAMINOPHEN TAB 650MG DOSE (2X325MG) PO PRN ×2 (04:47→12:24)
[2019-07-27] MEDS: SLF 3 ML SYR IV SCH ×3 (05:26→20:53)
[2019-07-27 07:49] LABS: HEMATOCRIT 24.2 % (42.0-52.0); HEMOGLOBIN 8.4 g/dl (13.5-17.5); MEAN CORPUSCULAR HEMOGLOBIN 32.2 pg (27.0-33.0); MEAN CORPUSCULAR HGB CONC 34.7 g/dl (32.0-36.5); MEAN CORPUSCULAR VOLUME 92.7 fl (80.0-96.0); PLATELET COUNT, AUTOMATED 267 10^3/uL (150-450); RED BLOOD COUNT 2.61 10^6/uL (4.30-6.10); WHITE BLOOD COUNT 7.5 10^3/uL (4.0-10.0)
[2019-07-27 08:00] VITALS: BP 131/62
[2019-07-27 08:16] LABS: CALCIUM LEVEL 9.5 MG/DL (8.8-10.2); CREATININE FOR GFR 10.4 MG/DL (0.70-1.30); GLOMERULAR FILTRATION RATE 5.2 (>42); MAGNESIUM LEVEL 1.8 MG/DL (1.8-2.4); POTASSIUM SERUM 2.9 MEQ/L (3.5-5.1); VANCOMYCIN RANDOM 12.5 UG/ML
[2019-07-27] MEDS: PIPERACILLIN/TAZOBACTAM SOD 2.25 GM in D5W MINI-BAG PLUS 50 ML IV SCH ×2 (08:53→20:53)
[2019-07-27] MEDS: HEPARIN SOD (PORCINE) 5000UNITS/ML VIAL (J1644 PER 1000UNITS) SC SCH ×2 (08:53→20:51)
[2019-07-27] MEDS ORDERED: MAG SULF 1GM/100ML (MAG RUN) 1 GM in IV 1 EA IV ONE (09:00)
[2019-07-27] MEDS ORDERED: POTASSIUM CHLORIDE 10 MEQ SR TABLET PO ONE ×4 (09:00→19:00)
[2019-07-27] MEDS: OMEPRAZOLE 20 MG CAP PO SCH (09:31)
[2019-07-27] MEDS: MULTIVITAMINS/MINERALS THERAP 1 TAB PO SCH (09:31)
[2019-07-27] MEDS: DOCUSATE SODIUM 100 MG CAP PO SCH ×2 (09:31→20:51)
[2019-07-27] MEDS: ASPIRIN 81 MG ENTERIC TAB PO SCH (09:31)
[2019-07-27] MEDS ORDERED: VANCOMYCIN HCL 1,000 MG, VIAL MATE ADAPTER 1 EACH in D5W 250 ML IV ONE (10:00)
--- NOTE | 2019-07-27 10:14 | ECGEPIP ---
[facility] Test Date: 2019-07-26 Pat Name: CASSIDY VARGHESE Department: Room: [place] [address] Gender: Male Quality Engineer: ELLY : 1940 Requested By: KARLI Man Order Number: [id number] Reading MD: Kendrick Coley Measurements Intervals Carey Rate: 92 P: 217 MD: 121 QRS: -30 QRSD: 114 T: 78 QT: 355 QTc: 439 Interpretive Statements Sinus RHYTHM WITH FREQUENT VENTRICULAR PREMATURE COMPLEXES BORDERLINE LEFT AXIS DEVIATION INFERIOR MYOCARDIAL INFARCTION, PROBABLY OLD POSSIBLE PRIOR ANTEROSEPTAL INFARCT LOW QRS VOLTAGE throughout MODERATE INTRAVENTRICULAR CONDUCTION DELAY NONSPECIFIC T-WAVE ABNORMALITY Similar to tracing done 05-02-19 Electronically Signed on 07-27-2019 10:13:58 EDT by Kendrick Coley
[2019-07-27] MEDS: TIOTROPIUM INHALER/CAPSULE (SPIRIVA) INH SCH (11:16)
[2019-07-27 12:00] VITALS: BP 119/59
[2019-07-27] MEDS: (RENVELA) SEVELAMER **CARBONate** 800 MG TAB PO SCH ×2 (12:14→17:28)
[2019-07-27] MEDS: CALCITRIOL 0.25 MCG CAP (S0169) PO SCH (12:15)
--- NOTE | 2019-07-27 14:56 | IPNPDOC ---
Text Note Date of Service The patient was seen on 07/27/19. NOTE Subjective: -this AM had 24 beats of VT, was asymptomatic and at rest -No issues overnight Objective General: Alert, No Acute Distress Eye: PERRLA, Conjunctiva & lids normal, EOMI ENT: Atraumatic, Mucous membr. moist/pink Neck: Supple, no noted elevated JVP or thyromegaly Chest: trace basilar crackles, otherwise clear, mild scattered expiratory wheezing, no rhonchi Heart: Rate Normal, Regular Rhythm, Normal S1, Normal S2, 2/6 pansystolic murmur heard throughout precordium Telemetry: Saw the strip of 24 beats of VT, now back in NSR with 1st degree heart block with frequent Abdomen: Normal bowel sounds, soft, NTND Extremity Exam: 1+ LE feet edema bilaterally Skin Exam: Nl turgor and temperature, darker toes and fingers, 5 R great toe in dressing Neuro Exam: Normal Speech, moving all extremities without asymmetry, Cranial Nerves 3-12 NL Psych Exam: Mental status NL, Mood NL, Oriented x 3 labs: WBC 7.5 hgb 8.4 platelets 267 na 137 K 2.9 (repleted) Cr 10.4 mag 1.8 (repleted) trop 0.12 proBNP 1939 BCx - NGTD PD fluid culture - pending. Gramstain was negative for organisms Assessment/Plan 79-year-old M with a history of renal cell cancer s/p bilateral nephrectomies previously on PD, recently switched to HD, congestive heart failure, hypertension, anemia of chronic renal failure, secondary hyperparathyroidism of renal origin and CAD who is being admitted as a transfer from [facility] after being brought in for a brief episode of unresponsiveness and found to be relatively hypotensive and found with a mild troponinemia and elevated lactate c/f infection. Unresponsive episode: -no FSBG from the episode, with report of poor PO, possibly symptomatic hypoglycemia, will monitor -given the lactate >4, c/f infection given reported relative hypotension --> continue empirically covering with pip tazo, day 2, MRSA negative, BCx and PD cultures pending, NGTD -telemetry --> had 24 beats of VT this AM --> TTE and replete lytes aggressively, discussed with Dr. Garcia who will be reading his TTE. No true indication for cardiology consult at this time per our discussion -f/u orthostatics vitals today -CT head was wnl Elevated troponin: Appears to be chronic and likely 2/2 ESRD more than it is an ACS event. Spoke with Dr. Garcia who also agreed. -denies having any chest pain, likely 2/2 ESRD. -Telemetry -non ischemic EKG, stable from prior -proBNP elevated -trend the third troponin, until stable to declining -Has pending TTE to be read by Dr. Garcia ESRD on PD with chronic anemia -Monitor I's and O's and daily weights -Nephrology consulted for volume optimization -Continue Sensipar, sevelamer as scheduled -renal diet Acute on chronic systolic/diastolic CHF: He is clinically mildly overloaded -Monitor I's and O's, -daily weights -2g salt and 1.5L fluid restriction - hold metoprolol given recent hypotension, to restart when hemodynamically appropriate Chronic hypertension: currently normotensive -Hold home metoprolol and isosorbide until hemodynamically appropriate Gout secondary to ESRD -Continue allopurinol and Febuxostat Chronic CAD -Continue aspirin, hold metoprolol for now as noted above PVD with R great toe wound: -doppler pulses present, warm COPD: -continue home mdi as scheduled not PRN DVT PROPHYLAXIS: Heparin prophylaxis dose DISPOSITION: Ongoing medical optimization, PT/OT pending Randy MAHONEY I+O VSRandy I+O Laboratory Tests 07/26/19 18:08 07/27/19 07:29 Vital Signs Date Time Temp Pulse Resp B/P (MAP) Pulse Ox O2 Delivery O2 Flow Rate FiO2 07/27/19 08:00 97.6 83 18 131/62 (85) 99 Room Air I&O- Last 24 Hours up to 6 AM 07/27/19 06:00 Intake Total 2720 ml Output Total 500 ml Balance 2220 ml KARLI SMITH MD Jul 27, 2019 09:09
[2019-07-27 16:00] VITALS: BP_SYST 111; BP_SYST 121; BP_SYST 128; BP_DIAS 57; BP_DIAS 58; BP_DIAS 65
[2019-07-27] MEDS ORDERED: VANCOMYCIN HCL 1,000 MG, VIAL MATE ADAPTER 1 EACH in D5W 250 ML IV SCH (16:00)
[2019-07-27] MEDS ORDERED: **VANCO AFTER HD** MISC XX SCH (16:00)
[2019-07-27 16:24] LABS: APPEARANCE, BODY FLUID CLEAR (CLEAR); PERITONEAL DIALYSATE FL COLOR COLORLESS (COLORLESS); SOURCE, BODY FLUID PERITONEAL DIALYSATE
[2019-07-27 17:04] LABS: CALCIUM LEVEL 9.4 MG/DL (8.8-10.2); GLOMERULAR FILTRATION RATE 5.4 (>42); MAGNESIUM LEVEL 2.3 MG/DL (1.8-2.4); POTASSIUM SERUM 3.1 MEQ/L (3.5-5.1); TROPONIN I 0.12 NG/ML (< 0.10)
[2019-07-27 18:01] LABS: CALCIUM LEVEL 9.4 MG/DL (8.8-10.2); GLOMERULAR FILTRATION RATE 5.4 (>42); POTASSIUM SERUM 3.1 MEQ/L (3.5-5.1)
--- NOTE | 2019-07-27 19:13 | CR ---
DATE OF CONSULTATION: 07/27/2019 REQUESTING PHYSICIAN: Dr. Elia Ascencio CONSULTING PHYSICIAN: Dr. Sequeira REASON FOR CONSULTATION: Management of end-stage renal disease and peritoneal dialysis. The patient was transferred from [facility] for higher level of care. HISTORY OF THE PRESENT ILLNESS: Mr. Mauricio Mckinney is a 79-year-old -[place] male with past medical history of end-stage renal disease, currently on peritoneal dialysis, history of hypertension, secondary hyperparathyroidism, renal cell cancer status post bilateral nephrectomies, multiple other comorbidities as mentioned below. As per the patient's significant other, he had a brief episode of unresponsiveness and for that emergency medical services (EMS) was called and the patient was sent to [facility] where he was found to be hypotensive. He was given IV fluid hydration and because of no availability of renal services over there and possible sepsis, the patient was transferred to [facility] for possible sepsis. On arrival, when patient arrived at [facility], the patient reported that he was having severe pain in both big toes, left is greater than right and the patient has been having a chronic problem with the left big toe where he had the ingrown toenail surgery done. The patient otherwise denies any fevers, chills rigors, chest pain, shortness of breath, cough, nausea, vomiting, diarrhea and he does not make any urine. PAST MEDICAL HISTORY: Past medical history of end-stage renal disease, currently on peritoneal dialysis, hypertension, anemia in end-stage renal disease, gout, congestive heart failure, hypertension, gastroesophageal reflux disease, coronary artery disease, history of prostate cancer, history of renal cell cancer status post bilateral nephrectomies. PAST SURGICAL HISTORY: Status post peritoneal dialysis catheter placement, status post bilateral la posta nephrectomies because of renal cell cancer, and status post prostatectomy, and a recent history of ingrown toenail surgery in the left big toe, which is causing problems now. ALLERGIES: The patient is allergic to NONSTEROIDAL ANTI-INFLAMMATORY DRUGS (NSAIDS), OPIOIDS, AMLODIPINE, EPOETIN MARY, HYDRALAZINE, INDOMETHACIN, and MINOXIDIL. FAMILY HISTORY: No significant family history of end-stage renal disease requiring hemodialysis. SOCIAL HISTORY: The patient denies any smoking, illicit drug abuse or alcohol abuse. REVIEW OF SYSTEMS: Constitutional: Patient denies any fevers or chills. Eyes: Denies any blurry vision, double vision. Ears, Nose, Throat (ENT): Denies any dysphagia, odynophagia. Cardiovascular: Denies any chest pain or palpitations. Respiratory: Denies any shortness of breath or cough. Gastrointestinal (GI): Denies any nausea, vomiting. He does report decreased appetite. Genitourinary: The patient is anuric. Musculoskeletal: He reports severe pain in the bilateral feet. DATA TYPIST: He reports recent episode of unresponsiveness. Skin: He denies any rashes or ulcers. Psychiatric: He does admit to depressed mood. Hematology/Oncology: He denies any easy bleeding or bruising. All other review of systems is negative. PHYSICAL EXAMINATION: General: The patient is awake, alert, oriented times three now. Vital signs: Temperature is 97.8 degrees Fahrenheit, blood pressure 131/62, pulse is 83, respiratory rate of 18, saturating 99% on room air. Intake and output: There is no urine output. Head and neck exam: Extraocular muscles intact. Pupils equally round and reactive to light. Mucous membranes are moist. Neck is supple. There is no jugular venous distention (JVD). Cardiovascular: S1, S2 regular rate. No edema of the bilateral lower extremities. Respiratory: Chest is clear to auscultation bilaterally. Bilateral equal air entry. No rales or rhonchi. Abdomen: Soft, positive bowel sounds. Left lower quadrant peritoneal dialysis catheter. No tenderness at this time. Musculoskeletal: The patient has tenderness of bilateral lower extremities. He has a dressing on the left big toe. Pulses are very weak in the bilateral lower extremities. DATA TYPIST: No focal deficit. Power is 5/5 in bilateral upper extremities. LAB REVIEW: CBC showed a WBC of 7.5, hemoglobin 8.4, platelets are 267. Peritoneal fluid cell count is pending. BMP done today showed sodium 137, potassium 2.9, chloride 100, bicarbonate 27, BUN 38, creatinine is 10.4, calcium 9.5, magnesium 1.8, troponin is 0.13. BNP 1939. Random vancomycin level 12.5. Methicillin-resistant Staphylococcus aureus (MRSA) was not detected. Microbiology: Peritoneal fluid and gram stain showed no cells, no organisms. IMAGING STUDIES: A CT scan of the head was done at [facility], which showed no acute pathology. CURRENT INPATIENT MEDICATIONS: The patient was given 1 IV mag run. He is also on Zosyn 2.25 grams every 12 hours and vancomycin one dose was given on arrival, Tylenol as needed, aspirin 81 mg daily, Lipitor 40 mg nightly, calcitriol 0.25 mcg by mouth daily, Aranesp 200 mcg subcu, one dose was ordered today, heparin subcu, omeprazole 20 mg by mouth daily, potassium chloride 40 mEq was given last night and 40 mEq times two doses was given today morning and in the afternoon. He is on Renvela 800 mg by mouth with meals, and he is on Spiriva inhalation daily. ASSESSMENT: 79-year-old male with history of end-stage renal disease - on peritoneal dialysis, history of hypertension, secondary hyperparathyroidism, anemia in end-stage renal disease, admitted this time after syncope. PLAN: 1. End-stage renal disease. The patient is peritoneal dialysis dependent. I would continue the manual peritoneal exchanges, five exchanges a day, each exchange 2 liters all 1.5%. Peritoneal fluid cell count and culture has been sent. Patient is already on empiric antibiotics. No need of intraperitoneal antibiotics at this time. 2. Anemia in end-stage renal disease. Hemoglobin is 8.5, which is suboptimal. The patient has been started on Aranesp injections. Iron levels are adequate at this time. 3. Hypomagnesemia. The patient was already given IV magnesium. 4. Hypokalemia. The patient was already given oral potassium yesterday and today. Repeat BMP level is pending. 5. Secondary hyperparathyroidism. Continue current dose of calcitriol 0.25 mcg by mouth daily. 6. Chronic kidney disease mineral bone disease. Continue current dose of Renvela 800 mg by mouth with meals. 7. Episode of unresponsiveness. The patient had an elevated lactate, when he arrived there, he was given IV fluid hydration. Patient was likely dehydrated. He is being empirically covered with vancomycin and Zosyn. Cultures are pending so far. Thank you for involving me in the care of this patient. I shall be happy to follow the patient along with you tomorrow morning.
--- NOTE | 2019-07-27 19:26 | ECHO ---
DATE OF PROCEDURE: 07/27/2019 REFERRING PHYSICIAN: Dr. Anabell Saucedo INDICATION: Syncope. HEIGHT: 175 cm WEIGHT: 97 kg 2D MEASUREMENTS: Ventricular septum: 0.92 cm Posterior wall: 0.93 cm Left ventricle diastole: 5.2 cm Aortic annulus: 2.0 cm Left atrium: 2.8 cm Inferior vena cava: 2.2 cm DOPPLER MEASUREMENTS: Mild aortic stenosis. No aortic regurgitation. Peak aortic valve velocity: 263 cm/s Peak aortic valve gradient: 28 mmHg Mean aortic valve gradient: 19 mmHg LVOT velocity: 80 cm/s Trace mitral regurgitation. Mitral E velocity: 68.4 cm/s Mitral A velocity: 102 cm/s No tricuspid regurgitation. No pulmonic regurgitation. Pulmonic acceleration time: 95 ms MITRAL ANNULAR TISSUE DOPPLER: E prime septal: 4.1 cm/s E prime lateral: 7.0 cm/s DESCRIPTION: Rhythm was sinus with first-degree atrioventricular (AV) block and appearance of a left bundle branch block type morphology. Some premature ventricular contractions (PVCs) observed. This was a moderately technically difficult echocardiogram. No pericardial effusion. CONCLUSIONS: 1. Normal left ventricle internal dimensions and wall thickness. Normal regional left ventricular (LV) wall motion and wall thickening. Normal LV systolic function. Left ventricular ejection fraction (LVEF) 50% by visual estimate. Grade 1 LV diastolic dysfunction (impaired relaxation filling pattern). 2. Severe focal thickening and focal calcific deposits of a 3-cusp aortic valve. Mild aortic stenosis. No aortic regurgitation. 3. Mild mitral annular calcification. Trace mitral regurgitation. 4. Suggestive of mild elevation of pulmonary artery systolic pressure. 5. Ascites observed around the liver.
[2019-07-27 20:00] VITALS: BP 152/68
[2019-07-27] MEDS ORDERED: KCL 20MEQ in NS 1000ML 1,000 ML IV SCH (20:00)
[2019-07-27] MEDS: ATORVASTATIN 20 MG TAB PO SCH (20:52)
[2019-07-28] VITALS (10 sets, daily range): BP systolic 110–149; BP diastolic 54–97
[2019-07-28] MEDS: SLF 3 ML SYR IV SCH ×3 (05:57→21:13)
[2019-07-28 06:14] LABS: HEMATOCRIT 21.7 % (42.0-52.0); HEMOGLOBIN 7.6 g/dl (13.5-17.5); MEAN CORPUSCULAR HEMOGLOBIN 31.9 pg (27.0-33.0); MEAN CORPUSCULAR VOLUME 91.2 fl (80.0-96.0); PLATELET COUNT, AUTOMATED 255 10^3/uL (150-450); RED BLOOD COUNT 2.38 10^6/uL (4.30-6.10); WHITE BLOOD COUNT 6.7 10^3/uL (4.0-10.0)
[2019-07-28 06:37] LABS: CALCIUM LEVEL 9.5 MG/DL (8.8-10.2); CREATININE FOR GFR 9.92 MG/DL (0.70-1.30); GLOMERULAR FILTRATION RATE 5.5 (>42); MAGNESIUM LEVEL 2.1 MG/DL (1.8-2.4); POTASSIUM SERUM 3.5 MEQ/L (3.5-5.1)
[2019-07-28] MEDS: TIOTROPIUM INHALER/CAPSULE (SPIRIVA) INH SCH (08:23)
[2019-07-28] MEDS: ASPIRIN 81 MG ENTERIC TAB PO SCH (09:05)
[2019-07-28] MEDS: OMEPRAZOLE 20 MG CAP PO SCH (09:06)
[2019-07-28] MEDS: HEPARIN SOD (PORCINE) 5000UNITS/ML VIAL (J1644 PER 1000UNITS) SC SCH ×2 (09:06→21:00)
[2019-07-28] MEDS: POTASSIUM CHLORIDE 10 MEQ SR TABLET PO SCH ×2 (09:07→21:12)
[2019-07-28] MEDS: (RENVELA) SEVELAMER **CARBONate** 800 MG TAB PO SCH ×3 (09:07→18:43)
[2019-07-28] MEDS: MULTIVITAMINS/MINERALS THERAP 1 TAB PO SCH (09:07)
[2019-07-28] MEDS: PIPERACILLIN/TAZOBACTAM SOD 2.25 GM in D5W MINI-BAG PLUS 50 ML IV SCH (09:07)
[2019-07-28] MEDS: CALCITRIOL 0.25 MCG CAP (S0169) PO SCH (09:07)
[2019-07-28] MEDS: DOCUSATE SODIUM 100 MG CAP PO SCH ×2 (09:07→21:00)
[2019-07-28] MEDS ORDERED: POTASSIUM CHLORIDE 10 MEQ SR TABLET PO ONE (11:00)
--- NOTE | 2019-07-28 11:35 | IPNPDOC ---
Text Note Date of Service The patient was seen on 07/28/19. NOTE Subjective: -No issues overnight, 4 beats of VT this AM, asymptomatic -Taking good PO now, feels much better Objective Vitals: see below. remains hemodynamically stable and afebrile General: Alert, No Acute Distress Eye: PERRLA, Conjunctiva & lids normal, EOMI ENT: Atraumatic, MMM Neck: Supple, no noted elevated JVP or thyromegaly Chest: Persistent trace basilar crackles, otherwise clear, mild scattered expiratory wheezing, no rhonchi Heart: Rate Normal, Regular Rhythm, Normal S1, Normal S2, 2/6 pansystolic murmur heard throughout precordium Telemetry: NSR with 1st degree heart block with some PACs and PVCs Abdomen: Normal bowel sounds, soft, NTND Extremity Exam: 1+ LE feet edema bilaterally Skin Exam: Nl turgor and temperature, darker toes and fingers, 5 R great toe in dressing Neuro Exam: Normal Speech, moving all extremities without asymmetry in strength, Cranial Nerves 3-12 NL Psych Exam: Mental status NL, Mood NL, Oriented x 3 labs: WBC 6.7 hgb 7.6 platelets 255 na 138 K 3.5 (repleted) mag 2.1 trop downtrended to 0.12 BCx - NGTD PD fluid culture - NGTD, no organisms on gramstain TTE: 1. Normal left ventricle internal dimensions and wall thickness. Normal regional left ventricular (LV) wall motion and wall thickening. Normal LV systolic function. Left ventricular ejection fraction (LVEF) 50% by visual estimate. Grade 1. LV diastolic dysfunction (impaired relaxation filling pattern). 2. Severe focal thickening and focal calcific deposits of a 3-cusp aortic valve. Mild aortic stenosis. No aortic regurgitation. 3. Mild mitral annular calcification. Trace mitral regurgitation. 4. Suggestive of mild elevation of pulmonary artery systolic pressure. 5. Ascites observed around the liver. Assessment 79-year-old M with a history of renal cell cancer s/p bilateral nephrectomies previously on PD, recently switched to HD, congestive heart failure, h ypertension, anemia of chronic renal failure, secondary hyperparathyroidism of renal origin and CAD who is being admitted as a transfer from [facility] after being brought in for a brief episode of unresponsiveness and found to be relatively hypotensive and found with a chronic mild troponinemia and elevated lactate c/f infection. Unresponsive episode: -no FSBG from the episode, with report of poor PO, possibly symptomatic hypoglycemia or dehydration, will monitor -given the lactate >4, there was initial c/f infection given reported relative hypotension, so was placed on empiric vanc/piptazo, and later only piptazo for 3 days. Will discontinue antibiotics at this time without evidence of infection. -MRSA negative, BCx and PD cultures negative -telemetry had some ectopy, most notably 24beats of VT on 07/26, but this was during a period of electrolyte derangements that were corrected. -TTE showed diastolic dysfunction with a normal EF, without segmental WMA. No true indication for cardiology consult at this time per my discussion with Dr. Garcia -orthostatics were negative -CT head was wnl at OSH Elevated troponin: Appears to be chronic and likely 2/2 ESRD more than it is an ACS event. Spoke with Dr. Garcia who also agreed. -denies having any chest pain, likely 2/2 ESRD, appears to be chronic from prior admissions. -Telemetry -non ischemic EKG, stable from prior -proBNP elevated -TTE w/o WMA ESRD on PD with chronic anemia -Monitor I's and O's and daily weights -Nephrology consulted for volume optimization ad started on aranesp -Continue Sensipar, sevelamer as scheduled -renal diet -Will discuss transfusions with nephrology Acute on chronic systolic/diastolic CHF: He is clinically mildly overloaded -Monitor I's and O's, -daily weights -2g salt and 1.5L fluid restriction -continue to hold metoprolol given recent hypotension, to restart when hemodynamically appropriate Chronic hypertension: currently normotensive -continue to hold home metoprolol and isosorbide until hemodynamically appropriate Gout secondary to ESRD -Continue allopurinol and Febuxostat Chronic CAD -Continue aspirin, hold metoprolol for now as noted above PVD with R great toe wound: -doppler pulses present, warm COPD: -continue home mdi as scheduled not PRN DVT PROPHYLAXIS: Heparin prophylaxis dose DISPOSITION: Ongoing medical optimization, PT/OT pending VS,Fishbone, I+O VS, Fishbone, I+O Laboratory Tests 07/27/19 16:04 07/28/19 05:41 Vital Signs Date Time Temp Pulse Resp B/P (MAP) Pulse Ox O2 Delivery O2 Flow Rate FiO2 07/28/19 04:00 97.3 82 16 136/60 (85) 90 Room Air I&O- Last 24 Hours up to 6 AM 07/28/19 06:00 Intake Total 62078 ml Output Total 91894 ml Balance 400 ml KARLI SMITH MD Jul 28, 2019 07:56
--- NOTE | 2019-07-28 16:54 | IPN ---
DATE: 07/28/2019 Mr. Mckinney is seen this morning on his bedside. He is feeling better and able to have a normal conversation. He complains of severe pain in his left first and second toes. He also has some pain in his right foot now. He has been in pain for the last few months due to peripheral vascular disease and ischemic changes in his left big toe. The patient had stopped eating and was very dehydrated and hypotensive at home. Now with IV fluid hydration, his hypotension has improved. His lactic acid level was also high on admission, due to which he has been on antibiotics, though he has been afebrile and without any leukocytosis. His peritoneal fluid was negative for any evidence of infection. The patient reports that now he is able to get up and walk with the help of the walker up to the bathroom. His appetite has also improved. PHYSICAL EXAMINATION: Temperature 97.3 degrees Fahrenheit, heart rate 92 per minute and respiratory rate 18 per minute. Blood pressure 136/97 mmHg and oxygen saturation 100% on room air. Head is atraumatic. Neck is supple and without jugular venous distention (JVD) or thyroid enlargement. There are no oral thrush or ulcers. Heart sounds are regular and without a pericardial friction rub. Lungs sound clear to auscultation. Abdomen is soft and nontender and bowel sounds are normal. There is no palpable organomegaly and peritoneal dialysis catheter is intact without any signs of infection. Extremities have no cyanosis or clubbing. His left big toe has gangrenous changes without any drainage. Neurologically, he is awake and at his baseline mentation. LABORATORY DATA: Today's laboratories show WBC count 6.7, hemoglobin 7.6 and hematocrit 21.7. Platelets 255. Sodium 138, potassium 3.5, CO2 24, BUN 37 and creatinine 9.92. Glucose 87 and calcium 9.5. PROBLEMS: 1. Hypotension, most likely related to dehydration. He was not taking any medications at home and blood pressure has improved after he was hydrated with IV fluid. At this point, he seems to have improved oral intake. I am going to change his diet to a regular diet in order to encourage good oral intake. 2. Hypokalemia. He was given another dose of potassium chloride by mouth and also received IV fluids with potassium through the night. His potassium level is just barely normal now. I will give him a standing dose of oral potassium chloride 10 mEq twice a day. 3. End-stage renal disease. The patient remains on peritoneal dialysis five exchanges a day which seems to be working well. We are using only 1.5% solution due to hypertension and risk for dehydration. 4. Anemia. His anemia has worsened and he will be given two units of packed red blood cells (RBCs) today. The patient signed the consent for transfusion. 5. Peripheral vascular disease and pain in his left big toe. I will discuss with vascular surgery. We will probably need a formal consultation once Dr. Canseco returns. The patient is likely to require amputation as he has been in severe pain for the last several months and angioplasties of his extremities have not helped much.
[2019-07-28] MEDS: ACETAMINOPHEN TAB 650MG DOSE (2X325MG) PO PRN (21:11)
[2019-07-28] MEDS: ATORVASTATIN 20 MG TAB PO SCH (21:12)
[2019-07-29] VITALS (9 sets, daily range): BP systolic 100–143; BP diastolic 53–80
[2019-07-29 05:47] LABS: HEMATOCRIT 29.7 % (42.0-52.0); MEAN CORPUSCULAR HEMOGLOBIN 30.9 pg (27.0-33.0); MEAN CORPUSCULAR VOLUME 90.8 fl (80.0-96.0); PLATELET COUNT, AUTOMATED 237 10^3/uL (150-450); RED BLOOD COUNT 3.27 10^6/uL (4.30-6.10); WHITE BLOOD COUNT 7.8 10^3/uL (4.0-10.0)
[2019-07-29 05:59] LABS: HEMOGLOBIN 10.1 g/dl (13.5-17.5)
[2019-07-29 06:02] LABS: ALBUMIN 2.5 GM/DL (3.2-5.2); CALCIUM LEVEL 9.8 MG/DL (8.8-10.2); CREATININE FOR GFR 9.9 MG/DL (0.70-1.30); GLOMERULAR FILTRATION RATE 5.5 (>42); PHOSPHORUS LEVEL 2.9 MG/DL (2.5-4.9); POTASSIUM SERUM 3.9 MEQ/L (3.5-5.1)
[2019-07-29] MEDS: SLF 3 ML SYR IV SCH ×3 (06:03→21:13)
[2019-07-29] MEDS: ACETAMINOPHEN TAB 650MG DOSE (2X325MG) PO PRN (06:04)
[2019-07-29] MEDS: TIOTROPIUM INHALER/CAPSULE (SPIRIVA) INH SCH (07:26)
[2019-07-29] MEDS: ASPIRIN 81 MG ENTERIC TAB PO SCH (08:21)
[2019-07-29] MEDS: OMEPRAZOLE 20 MG CAP PO SCH (08:21)
[2019-07-29] MEDS: (RENVELA) SEVELAMER **CARBONate** 800 MG TAB PO SCH ×3 (08:21→17:30)
[2019-07-29] MEDS: HEPARIN SOD (PORCINE) 5000UNITS/ML VIAL (J1644 PER 1000UNITS) SC SCH ×3 (08:21→21:00)
[2019-07-29] MEDS: MULTIVITAMINS/MINERALS THERAP 1 TAB PO SCH (08:21)
[2019-07-29] MEDS: DOCUSATE SODIUM 100 MG CAP PO SCH ×2 (08:22→21:13)
[2019-07-29] MEDS: CALCITRIOL 0.25 MCG CAP (S0169) PO SCH (08:22)
[2019-07-29] MEDS: POTASSIUM CHLORIDE 10 MEQ SR TABLET PO SCH ×2 (08:22→21:13)
[2019-07-29] MEDS: predniSONE 20 MG TAB PO SCH ×2 (10:28→21:13)
[2019-07-29 10:41] LABS: URIC ACID 4.2 MG/DL (3.5-7.2)
--- NOTE | 2019-07-29 12:08 | IPNPDOC ---
Text Note Date of Service The patient was seen on 07/29/19. NOTE Subjective: -No issues overnight, finally got access and got 2u pRBCs -Taking good PO Objective Vitals: see below. remains hemodynamically stable and afebrile General: Alert, No Acute Distress Eye: PERRLA, Conjunctiva & lids normal, EOMI ENT: Atraumatic, MMM Neck: Supple, no noted elevated JVP or thyromegaly Chest: Persistent trace basilar crackles, otherwise clear, mild scattered expiratory wheezing, no rhonchi, breathing comfortably on room air Heart: Rate Normal, Regular Rhythm, Normal S1, Normal S2, 2/6 pansystolic murmur heard throughout precordium Telemetry: NSR with 1st degree heart block with some PACs and infrequent PVCs Abdomen: Normal bowel sounds, soft, NTND Extremity Exam: 1+ LE pedal edema bilaterally Skin Exam: Nl turgor and temperature, darker toes and fingers, 5 R great toe in dressing Neuro Exam: Normal Speech, moving all extremities without asymmetry in strength, Cranial Nerves 3-12 NL Psych Exam: Mental status NL, Mood NL, Oriented x 3 labs: WBC 7.8 hgb 10.1 platelets 237 na 139 K 3.9 mag 2 BCx - NGTD PD fluid culture - NGTD, no organisms on gramstain TTE: 1. Normal left ventricle internal dimensions and wall thickness. Normal regional left ventricular (LV) wall motion and wall thickening. Normal LV systolic function. Left ventricular ejection fraction (LVEF) 50% by visual estimate. Grade 1. LV diastolic dysfunction (impaired relaxation filling pattern). 2. Severe focal thickening and focal calcific deposits of a 3-cusp aortic valve. Mild aortic stenosis. No aortic regurgitation. 3. Mild mitral annular calcification. Trace mitral regurgitation. 4. Suggestive of mild elevation of pulmonary artery systolic pressure. 5. Ascites observed around the liver. Assessment 79-year-old M with a history of renal cell cancer s/p bilateral nephrectomies previously on PD, recently switched to HD, congestive heart failure, hypertension, anemia of chronic renal failure, secondary hyperparathyroidism of renal origin and CAD who is being admitted as a transfer from [facility] after being brought in for a brief episode of unresponsiveness and found to be relatively hypotensive and found with a chronic mild troponinemia and elevated lactate likely 2/2 dehydration in the setting of poor PO. Unresponsive episode: -no FSBG from the episode, with report of poor PO, possibly symptomatic hypoglycemia and dehydration, no episodes since admission, will monitor -given the lactate >4, there was initial c/f infection given reported relative hypotension, so was placed on empiric vanc/piptazo, and later only piptazo for 3 days and eventually discontinued after no evidence of infection. -MRSA negative, BCx and PD cultures negative -telemetry had some ectopy, most notably 24beats of VT on 07/26, but this was during a period of electrolyte derangements that were corrected. No significant events since -TTE showed diastolic dysfunction with a normal EF, without segmental WMA. No indication for cardiology consult, had discussion with Dr. Garcia -orthostatics were negative -CT head was wnl at OSH Elevated troponin: Appears to be chronic and likely 2/2 ESRD more than it is an ACS event. Spoke with Dr. Garcia who also agreed. -denies having any chest pain, likely 2/2 ESRD, appears to be chronic from prior admissions. -Telemetry -non ischemic EKG, stable from prior -proBNP elevated -TTE w/o WMA ESRD on PD with chronic anemia -Monitor I's and O's and daily weights -Nephrology consulted for volume optimization ad started on aranesp for anemia -Continue Sensipar, sevelamer as scheduled -renal diet -s/p 2u pRBCs on 07/27 Acute on chronic systolic/diastolic CHF: He is clinically euvolemic -Monitor I's and O's, -daily weights -2g salt and 1.5L fluid restriction -continue to hold metoprolol given recent hypotension, to restart when hemodynamically appropriate Chronic hypertension: currently normotensive -continue to hold home metoprolol and isosorbide until hemodynamically appropriate, currently at goal BP Gout secondary to ESRD -Continue allopurinol and Febuxostat -Was started on pred 20mg BID for gout flare by Dr. Forman Chronic CAD -Continue aspirin, hold metoprolol for now as noted above PVD with R great toe wound: -doppler pulses present, however dusky, in pain chronically, will consult vascular surgery on Tuesday COPD: -continue home mdi as scheduled not PRN DVT PROPHYLAXIS: Heparin prophylaxis dose DISPOSITION: Ongoing medical optimization, PT/OT pending VS,Dhavalbone, I+O VS, Fishbone, I+O Laboratory Tests 07/29/19 05:28 Vital Signs Date Time Temp Pulse Resp B/P (MAP) Pulse Ox O2 Delivery O2 Flow Rate FiO2 07/29/19 07:22 97.1 81 18 114/61 (78) 99 Room Air I&O- Last 24 Hours up to 6 AM 07/29/19 06:00 Intake Total 51402 ml Output Total 9300 ml Balance 1608 ml KARLI SMITH MD Jul 29, 2019 09:13
--- NOTE | 2019-07-29 14:59 | IPN ---
DATE: 07/29/2019 Mr. Mckinney is seen this morning on his bedside. He is currently sitting in the chair and completing his peritoneal dialysis exchange. The patient received 2 units of packed red blood cells (RBCs) yesterday which he tolerated well. He continues to have pain in both feet toes and feels that this pain feels like gout pain. He does have history of gout previously. He has peripheral vascular disease with ischemic changes in his left big toe and has had angioplasties in the past. The patient denies any nausea or vomiting and reports that he has been eating well. He denies any fever or chills. On physical examination, temperature 97 degrees Fahrenheit, heart rate 80 per minute and respiratory rate 18 per minute. Blood pressure 114/60 mmHg and oxygen saturation 99% on room air. His head is atraumatic. Neck supple and without jugular venous distention (JVD) or thyroid enlargement. Lungs sound clear to auscultation and heart sounds are regular. Abdomen soft and nontender. Peritoneal dialysis catheter is intact. Extremities have no cyanosis or clubbing. Left big toe is wrapped in a dressing. Neurologically, he is awake and at his baseline mentation without a focal deficit. Today's labs show WBC of 7.8, hemoglobin 10.1 and hematocrit 29.7. Platelets 237. Sodium 139, potassium 3.9, CO2 of 25, BUN 35 and creatinine 9.9. Calcium level is 9.8 and phosphorus 349. Albumin is 2.5. PROBLEMS: 1. End-stage renal disease. The patient is doing well on current prescription of peritoneal dialysis and we will continue with five exchanges per day. 2. Bilateral toe pain. He was initially admitted with possible infection and was treated with antibiotics. Cultures have been negative and antibiotics have been stopped. He has been afebrile and without any leukocytosis. The patient feels that he has gout pain now and I am going to give him a trial of prednisone 20 mg every 12 hours, though I am not quite convinced that this is gout pain. I feel that this is ischemic pain and we will discuss with vascular surgery next week. In the meantime, his uric acid level is also being checked. 2. Hypokalemia. Potassium level has corrected with potassium supplement and I am going to cut down his potassium 210 mEq twice a day. 3. Anemia. Anemia improved following transfusion of 2 units of packed RBCs which he tolerated very well. 4. Protein calorie malnutrition. The patient was not eating well at home for several days. Now, his appetite has improved and he is eating much better. We will continue to encourage him for increased protein intake. 5. Hypotension. Blood pressure has improved with IV fluid hydration. Hypotension was most likely related to dehydration and he was also treated with antibiotics for possible infection. However, he does not seem to have any ongoing infection at present. He more likely has ischemia of his toes which is causing the pain.
[2019-07-29] MEDS: ATORVASTATIN 20 MG TAB PO SCH (21:12)
[2019-07-30] VITALS: BP 143/72
[2019-07-30 04:00] VITALS: BP 148/86
[2019-07-30] MEDS: SLF 3 ML SYR IV SCH ×3 (05:12→21:29)
[2019-07-30 05:21] LABS: HEMATOCRIT 29.7 % (42.0-52.0); HEMOGLOBIN 10.3 g/dl (13.5-17.5); MEAN CORPUSCULAR HEMOGLOBIN 31.6 pg (27.0-33.0); MEAN CORPUSCULAR HGB CONC 34.7 g/dl (32.0-36.5); MEAN CORPUSCULAR VOLUME 91.1 fl (80.0-96.0); PLATELET COUNT, AUTOMATED 249 10^3/uL (150-450); RED BLOOD COUNT 3.26 10^6/uL (4.30-6.10); WHITE BLOOD COUNT 11.1 10^3/uL (4.0-10.0)
[2019-07-30 05:53] LABS: CALCIUM LEVEL 10.1 MG/DL (8.8-10.2); CREATININE FOR GFR 9.85 MG/DL (0.70-1.30); GLOMERULAR FILTRATION RATE 5.5 (>42); MAGNESIUM LEVEL 1.8 MG/DL (1.8-2.4); POTASSIUM SERUM 4.7 MEQ/L (3.5-5.1)
[2019-07-30] MEDS: POTASSIUM CHLORIDE 10 MEQ SR TABLET PO SCH (07:58)
[2019-07-30] MEDS: ASPIRIN 81 MG ENTERIC TAB PO SCH (07:58)
[2019-07-30] MEDS: (RENVELA) SEVELAMER **CARBONate** 800 MG TAB PO SCH ×3 (07:58→17:19)
[2019-07-30] MEDS: OMEPRAZOLE 20 MG CAP PO SCH (07:58)
[2019-07-30] MEDS: MULTIVITAMINS/MINERALS THERAP 1 TAB PO SCH (07:58)
[2019-07-30] MEDS: predniSONE 20 MG TAB PO SCH ×2 (07:58→21:26)
[2019-07-30] MEDS: CALCITRIOL 0.25 MCG CAP (S0169) PO SCH (07:58)
[2019-07-30] MEDS: DOCUSATE SODIUM 100 MG CAP PO SCH ×2 (07:58→21:00)
[2019-07-30] MEDS: HEPARIN SOD (PORCINE) 5000UNITS/ML VIAL (J1644 PER 1000UNITS) SC SCH ×2 (07:59→21:28)
[2019-07-30 08:00] VITALS: BP 168/89
[2019-07-30] MEDS: TIOTROPIUM INHALER/CAPSULE (SPIRIVA) INH SCH (08:12)
[2019-07-30 12:00] VITALS: BP 165/70
--- NOTE | 2019-07-30 14:59 | IPN ---
DATE OF VISIT: 07/30/2019 Mr. Mckinney is seen this morning on his bedside. He reports that he sat in the chair all day yesterday and developed leg edema. He slept in the bed last night, and leg edema is slightly better. He also feels that his foot pain is slightly better now. He felt that he had gout, and we gave him prednisone yesterday which he feels is helping. He also has significant peripheral vascular disease with gangrenous changes in the big toe of his left foot and probably also has ischemia causing pain in the right foot also. On physical examination, temperature 96.8 degrees Fahrenheit, heart rate 88 per minute, and respiratory rate 20 per minute. Blood pressure 168/89 mmHg and oxygen saturation 99% room air. Head is atraumatic. Neck: Supple and without jugular venous distention (JVD) or thyroid enlargement. Heart sounds regular. Lungs clear to auscultation. Abdomen: Soft and nontender, and peritoneal dialysis catheter is intact. Bowel sounds are normal. Extremities: Without any cyanosis or clubbing. Lower extremity edema is only trace. Neurologically, he is awake and at his baseline mentation. Today's laboratories show WBC count 11.1, hemoglobin 10.3, and hematocrit 29.7. Sodium 136, potassium 4.7, CO2 26, BUN 35, and creatinine 9.85. Calcium level is 10.1. PROBLEMS: 1. End-stage renal disease. The patient continues with peritoneal dialysis five exchanges per day. He seems to be well dialyzed. 2. Hypokalemia. His potassium level has improved significantly, and now he is at risk for hyperkalemia, so his potassium supplement is being stopped. 3. Gout. The patient feels that he has gout pain in his feet, though I doubt it. His uric acid level is only 4.2. We gave him prednisone 20 mg every 12 hours, and he feels that it is helping. I will continue with the same for one more day. 4. Anemia. His anemia has improved following transfusion, and no other intervention is needed at this point. 5. Hypertension. Blood pressure is high today, and probably this is related to mild volume overload. We will switch his peritoneal dialysis from 1.5% solution to 2.5% solution for a couple of exchanges today, and that will help with his hypertension. I do not feel that he needs an antihypertensive medication at this point. 6. Peripheral vascular disease. The patient has significant peripheral vascular disease with ischemic changes in the left big toe. He has been previously seen by Dr. Canseco, and I tried to reach her today, but she is off this week. I will discuss with Dr. Canseco next week. DISPOSITION: I feel that the patient is going to be ready for discharge in the next 24 hours.
--- NOTE | 2019-07-30 15:28 | IPNPDOC ---
Text Note Date of Service The patient was seen on 07/30/19. NOTE Subjective: -No issues overnight -Was started on pred 20 BID by nephrology for gout flare, bilateral feet pain persists this AM -Taking good PO -Discussed that it would most helpful if he cooperated with PT so that we can expedite his desire to get home safely Objective Vitals: see below. remains hemodynamically stable and afebrile General: Alert, No Acute Distress Eye: PERRLA, Conjunctiva & lids normal, EOMI ENT: Atraumatic, MMM Neck: Supple, no noted elevated JVP or thyromegaly Chest: Persistent trace basilar crackles, otherwise clear, mild scattered expiratory wheezing, no rhonchi, breathing comfortably on room air Heart: Rate Normal, Regular Rhythm, Normal S1, Normal S2, 2/6 pansystolic murmur heard throughout precordium Telemetry: NSR with 1st degree heart block with some PACs and infrequent PVCs Abdomen: Normal bowel sounds, soft, NTND Extremity Exam: 1+ LE pedal edema bilaterally Skin Exam: Nl turgor and temperature, darker toes and fingers, 5 R great toe in dressing Neuro Exam: Normal Speech, moving all extremities without asymmetry in strength, Cranial Nerves 3-12 NL Psych Exam: Mental status NL, Mood NL, Oriented x 3 labs: WBC 11.1 hgb 10.3 platelets 249 na 136 K 4.7 mag 1.8 BCx - Negative PD fluid culture - Negative TTE: 1. Normal left ventricle internal dimensions and wall thickness. Normal regional left ventricular (LV) wall motion and wall thickening. Normal LV systolic function. Left ventricular ejection fraction (LVEF) 50% by visual estimate. Grade 1. LV diastolic dysfunction (impaired relaxation filling pattern). 2. Severe focal thickening and focal calcific deposits of a 3-cusp aortic valve. Mild aortic stenosis. No aortic regurgitation. 3. Mild mitral annular calcification. Trace mitral regurgitation. 4. Suggestive of mild elevation of pulmonary artery systolic pressure. 5. Ascites observed around the liver. Assessment 79-year-old M with a history of renal cell cancer s/p bilateral nephrectomies previously on PD, recently switched to HD, congestive heart failure, hypertension, anemia of chronic renal failure, secondary hyperparathyroidism of renal origin and CAD who is being admitted as a transfer from [facility] after being brought in for a brief episode of unresponsiveness and found to be relatively hypotensive and found with a chronic mild troponinemia and elevated lactate likely 2/2 dehydration in the setting of poor PO. Unresponsive episode: -no FSBG from the episode, with report of poor PO, possibly symptomatic hypoglycemia and dehydration, no episodes since admission, will monitor -given the lactate >4, there was initial c/f infection given reported relative hypotension, so was placed on empiric vanc/piptazo, and later only piptazo for 3 days and eventually discontinued after no evidence of infection. -MRSA negative, BCx and PD cultures negative -telemetry had some ectopy, most notably 24beats of VT on 07/26, but this was during a period of electrolyte derangements that were corrected. No significant events since -TTE showed diastolic dysfunction with a normal EF, without segmental WMA. No indication for cardiology consult, had discussion with Dr. Garcia -orthostatics were negative -CT head was wnl at OSH Elevated troponin: Appears to be chronic and likely 2/2 ESRD more than it is an ACS event. Spoke with Dr. Garcia who also agreed. -denied having any chest pain, likely 2/2 ESRD, appears to be chronic from prior admissions. -Telemetry -non ischemic EKG, stable from prior -proBNP elevated -TTE w/o WMA ESRD on PD with chronic anemia -Monitor I's and O's and daily weights -Nephrology consulted and started on aranesp for anemia -Continue Sensipar, sevelamer as scheduled -renal diet -s/p 2u pRBCs on 07/27 with appropriate sustained response Acute on chronic systolic/diastolic CHF: He is clinically euvolemic -Monitor I's and O's, -daily weights -2g salt and 1.5L fluid restriction -continue to hold metoprolol given recent hypotension, to restart when hemodynamically appropriate Chronic hypertension: currently normotensive -continue to hold home metoprolol and isosorbide until hemodynamically appropriate, currently at goal BP Gout secondary to ESRD -Continue allopurinol and Febuxostat -Was started on pred 20mg BID 07/28 for gout flare by Dr. Forman. Was advocating to get colchicine because it previously worked well but reports that Dr. Forman had cautioned against it so will stick to prednisone for now. Chronic CAD -Continue aspirin, hold metoprolol for now as noted above PVD with R great toe wound: -doppler pulses present, however dusky, in pain chronically, will no vascular coverage, will therefore defer to following up with Dr. Canseco when she re turns and may discharge him with plan for following up with her in the outpatient setting for treatment planning. COPD: -continue home mdi as scheduled not PRN DVT PROPHYLAXIS: Heparin prophylaxis dose DISPOSITION: Ongoing medical optimization, PT/OT ongoing. Tentatively planning for home discharge tomorrow. VS,Fishbone, I+O VS, Fishbone, I+O Laboratory Tests 07/30/19 05:08 Vital Signs Date Time Temp Pulse Resp B/P (MAP) Pulse Ox O2 Delivery O2 Flow Rate FiO2 07/30/19 04:00 98.3 80 18 148/86 (106) 95 Room Air I&O- Last 24 Hours up to 6 AM 07/30/19 06:00 Intake Total 17167 ml Output Total 86218 ml Balance 1320 ml KARLI SMITH MD Jul 30, 2019 08:02
[2019-07-30 16:00] VITALS: BP 162/64
[2019-07-30 20:00] VITALS: BP 130/86
[2019-07-30] MEDS: ATORVASTATIN 20 MG TAB PO SCH (21:26)
[2019-07-31 04:00] VITALS: BP 172/77
[2019-07-31] MEDS: SLF 3 ML SYR IV SCH (04:46)
[2019-07-31 06:00] VITALS: BP 148/80
[2019-07-31 06:11] LABS: HEMATOCRIT 27.5 % (42.0-52.0); HEMOGLOBIN 9.5 g/dl (13.5-17.5); MEAN CORPUSCULAR HEMOGLOBIN 31.9 pg (27.0-33.0); MEAN CORPUSCULAR HGB CONC 34.5 g/dl (32.0-36.5); MEAN CORPUSCULAR VOLUME 92.3 fl (80.0-96.0); PLATELET COUNT, AUTOMATED 253 10^3/uL (150-450); RED BLOOD COUNT 2.98 10^6/uL (4.30-6.10); WHITE BLOOD COUNT 10.7 10^3/uL (4.0-10.0)
[2019-07-31 06:50] LABS: CALCIUM LEVEL 9.6 MG/DL (8.8-10.2); CREATININE FOR GFR 9.88 MG/DL (0.70-1.30); GLOMERULAR FILTRATION RATE 5.5 (>42); POTASSIUM SERUM 4.5 MEQ/L (3.5-5.1)
[2019-07-31] MEDS: TIOTROPIUM INHALER/CAPSULE (SPIRIVA) INH SCH (07:28)
[2019-07-31 08:00] VITALS: BP 149/63
[2019-07-31] MEDS: (RENVELA) SEVELAMER **CARBONate** 800 MG TAB PO SCH (08:51)
[2019-07-31] MEDS: HEPARIN SOD (PORCINE) 5000UNITS/ML VIAL (J1644 PER 1000UNITS) SC SCH (08:51)
[2019-07-31] MEDS: MULTIVITAMINS/MINERALS THERAP 1 TAB PO SCH (08:51)
[2019-07-31] MEDS: ASPIRIN 81 MG ENTERIC TAB PO SCH (08:51)
[2019-07-31] MEDS: OMEPRAZOLE 20 MG CAP PO SCH (08:51)
[2019-07-31] MEDS: DOCUSATE SODIUM 100 MG CAP PO SCH (08:51)
[2019-07-31] MEDS: predniSONE 20 MG TAB PO SCH (08:51)
[2019-07-31] MEDS: CALCITRIOL 0.25 MCG CAP (S0169) PO SCH (08:51)
[2019-07-31] MEDS: ACETAMINOPHEN TAB 650MG DOSE (2X325MG) PO PRN (08:58)
--- NOTE | 2019-07-31 10:40 | DS.PDOC ---
Discharge Summary General Date of Admission Jul 26, 2019 at 16:42 Date of Discharge 07/31/2019 Attending Physician: KARLI SMITH MD Specialist/Consultants Involve: LULU DANIELS MD @ Discharge Summary PROCEDURES PERFORMED DURING STAY: None ADMITTING DIAGNOSES: 1. Presyncope DISCHARGE DIAGNOSES: 1. Dehydration with presyncope 2. End-stage renal disease on peritoneal dialysis. 3. Anemia of chronic renal failure. 4. chronic gout with acute flare 5. HFpEF 6. Pulmonary hypertension 7. GERD 8. Coronary artery disease. COMPLICATIONS/CHIEF COMPLAINT: Renal Failure. HISTORY OF PRESENT ILLNESS: 79-year-old M with a history of renal cell cancer s/p bilateral nephrectomies previously on PD, recently switched to HD, congestive heart failure, hypertension, gout, anemia of chronic renal failure, secondary hyperparathyroidism of renal origin and CAD who was admitted as a transfer from [facility] after presenting with brief episode of unresponsiveness with spontaneous recovery and found to be relatively hypotensive to SBP 90s requiring fluid resuscitation and transferred to [facility] with c/f sepsis with a mild chronic troponinemia and non ischemic EKG with no complaints of luis chest pain. HOSPITAL COURSE: On arrival he was hemodynamically stable, reporting his baseline R great toe pain and breathing comfortably on room air. He reported poor PO since discharge home from last admission and strict compliance with his PD per home scripts, no fever, chills, prior episodes of syncope, no visitors, travel, chest pain, cou gh, abdominal pain or diarrhea. He was continued of gentle IV fluids for hydration and placed on empiric antibiotics for three days that were discontinued after infectious workup was ultimately negative for acute infection, including blood and PD fluid cultures, as well as an unremarkable CXR. His course was c/b electrolyte derrangements in the setting of recent poor PO with ntoed ectopy on telemetry with PVCs and PACs that improved with electrolyte repletion and resuming PO. His course was also c/b bilateral feet joints pain that he described as characteristic of his gout pain and Dr. Daniels gave him pred 20 BID for 2d with much improvement. Given his significant PVD and ongoing especially R great toe wound, we thought he would benefit from close vascular surgery evaluation but without coverage this week, we will have him follow up with Dr. Canseco shortly in the outpatient setting. He was evaluated by PT and deemed safe for discharge home, and is now being discharged home. DISCHARGE MEDICATIONS: Please see below. ALLERGIES: Please see below. PHYSICAL EXAMINATION ON DISCHARGE: VITAL SIGNS: Please see below. Vitals: see below. remains hemodynamically stable and afebrile General: Alert, No Acute Distress Eye: PERRLA, Conjunctiva & lids normal, EOMI ENT: Atraumatic, MMM Neck: Supple, no noted elevated JVP or thyromegaly Chest: Persistent trace basilar crackles, no wheezing or rhonchi, breathing comfortably on room air Heart: Rate Normal, Regular Rhythm, Normal S1, Normal S2, 2/6 pansystolic murmur heard throughout precordium Telemetry: NSR with 1st degree heart block with some PACs and infrequent PVCs Abdomen: Normal bowel sounds, soft, NTND Extremity Exam: 1+ LE pedal edema bilaterally Skin Exam: Nl turgor and temperature, darker toes and fingers, 5 R great toe in dressing Neuro Exam: Normal Speech, moving all extremities without asymmetry in strength, Cranial Nerves 3-12 NL Psych Exam: Mental status NL, Mood NL, Oriented x 3 LABORATORY DATA: Please see below. IMAGING: TTE: 1. Normal left ventricle internal dimensions and wall thickness. Normal regional left ventricular (LV) wall motion and wall thickening. Normal LV systolic function. Left ventricular ejection fraction (LVEF) 50% by visual estimate. Grade 1. LV diastolic dysfunction (impaired relaxation filling pattern). 2. Severe focal thickening and focal calcific deposits of a 3-cusp aortic valve. Mild aortic stenosis. No aortic regurgitation. 3. Mild mitral annular calcification. Trace mitral regurgitation. 4. Suggestive of mild elevation of pulmonary artery systolic pressure. 5. Ascites observed around the liver. PROGNOSIS: Good ACTIVITY: As tolerated. DIET: Renal diet, 2g sodium DISCHARGE PLAN: Home with nephrology and close vascular surgery follow up DISPOSITION: Home DISCHARGE INSTRUCTIONS: 1. Home with nephrology and close vascular surgery follow up ITEMS TO FOLLOWUP ON ON OUTPATIENT: 1. ESRD on PD 2. PVD with vascular surgery 3. PCP follow up DISCHARGE CONDITION: Stable TIME SPENT ON DISCHARGE: 37 minutes. Vital Signs/I&Os Vital Signs Date Time Temp Pulse Resp B/P (MAP) Pulse Ox O2 Delivery O2 Flow Rate FiO2 07/31/19 06:00 148/80 (102) 07/31/19 04:00 99.0 78 16 99 Room Air I&O- Last 24 Hours up to 6 AM 07/31/19 06:00 Intake Total 18927 ml Output Total 11242 ml Balance -420 ml Laboratory Data Labs 24H Laboratory Tests 2 07/31/19 05:49: Nucleated Red Blood Cells % (auto) 0.0, Anion Gap 10, Glomerular Filtration Rate 5.5L, Calcium Level 9.6, Magnesium Level 2.0 CBC/BMP Laboratory Tests 07/31/19 05:49 Microbiology Microbiology 07/27/19 Gram Stain - Final, Complete 07/27/19 Body Fluid Culture - Final, Complete 07/26/19 Blood Culture - Preliminary, Resulted No Growth after 72 hours. All specime... 07/26/19 Blood Culture - Preliminary, Resulted No Growth after 72 hours. All specime... Discharge Medications Scheduled Aspirin (Aspir 81) 81 Mg Tablet.dr, 81 MG PO DAILY, (Reported) Atorvastatin Calcium (Atorvastatin Calcium) 40 Mg Tablet, 40 MG PO QHS, (Reported) Docusate Sodium (Colace) 100 Mg Capsule, 100 MG PO BID, (Reported) Epoetin [place] (Epogen) 20,000 Unit/1 Ml Vial, 20,000 UNIT INJ ASDIRECTED, (Reported) EVERY 3 WEEKS, LAST DUE 07/26/19, DID NOT GET INJECTION Heparin Sodium,Porcine/Pf (Heparin 1,000 Unit/10 (100/ml)) 1,000 Unit/10 Ml Syringe, 1,000 UNIT IV QWEEK, (Reported) GIVEN AT DIALYSIS ON MONDAYS Multivitamins (Thera M Plus Tablet) 1 Each Tablet, 1 TAB PO DAILY, (Reported) Omeprazole (Omeprazole) 20 Mg Capsule.dr, 20 MG PO DAILY, (Reported) Paricalcitol (Paricalcitol) 1 Mcg Capsule, 1 MCG PO DAILY, (Reported) Sevelamer Carbonate (Renvela) 800 Mg Tablet, 800 MG PO WM, (Reported) Scheduled PRN Ipratropium/Albuterol Sulfate (Iprat-Albut 0.5-3(2.5) mg/3 ml) 3 Ml Ampul.neb, 1 VIAL NEB Q4H PRN for SOB/WHEEZING, (Reported) Tiotropium [place] (Spiriva) 18 Mcg Cap.w.dev, 18 MCG INH DAILY PRN for SOB/W HEEZING, (Reported) Allergies Coded Allergies: Opioids - Morphine Analogues (Verified Allergy, Unknown, DIALYSIS PT, 07/26/19) amlodipine (Verified Allergy, Unknown, 05/01/19) epoetin beta (Verified Allergy, Unknown, 07/26/19) indomethacin (Verified Allergy, Unknown, 05/01/19) nifedipine (Verified Allergy, Unknown, 05/01/19) NSAIDS (Non-Steroidal Anti-Inflamma (Verified Adverse Reaction, Intermediate, RECTAL BLEEDING, 07/26/19) TAKES 81MG ASA AT HOME FINE hydralazine (Verified Adverse Reaction, Mild, ELEVATED BP, 05/01/19) minoxidil (Verified Adverse Reaction, Unknown, SWELLING, 07/26/19) KARLI SMITH MD Jul 31, 2019 08:10
--- NOTE | 2019-07-31 16:25 | IPN ---
DATE OF VISIT: 07/31/2019 Mr. Mckinney is seen this morning on his bedside. He is in good spirits and feels much better. He reports that he was able to walk and can easily get up from sitting position. He is getting ready now to go home. He denies any nausea, vomiting, dyspnea or chest pain. He still has pain in his feet and ankles which is most likely related to peripheral vascular disease and ischemia. On physical exam, temperature 97.6 degrees Fahrenheit, heart rate 88 per minute and respiratory rate 20 per minute. Blood pressure 149/63 mmHg and oxygen saturation 99% on room air. Head is atraumatic. Neck supple and without jugular venous distention (JVD) or thyroid enlargement. There is no oral thrush or ulcers. Heart sounds are regular and lungs clear to auscultation. Abdomen soft and nontender and bowel sounds are normal. Peritoneal dialysis catheter is in place. Extremities have no cyanosis or clubbing. His left big toe has ischemic changes without any acute infection. Neurologically, he is awake, alert and oriented times three. Today's labs show WBC count 10.7, hemoglobin 9.5 and hematocrit 27.5. Sodium 138, potassium 4.5, CO2 26, BUN 41 and creatinine 9.88. Calcium level 9.6 and magnesium 2.0. PROBLEMS: 1. Hypotension. Blood pressure was very low on admission related to dehydration and anemia. His blood pressure has now improved. Currently, he is not on any antihypertensive medications and he will be followed up as an outpatient. 2. End-stage renal disease. Patient has been on peritoneal dialysis and he is very well dialyzed. He will resume his outpatient dialysis prescription tonight with . 3. Anemia. Patient did have transfusion of 2 units of packed red blood cells (RBCs) and anemia has improved. He is being followed up as an outpatient and he will resume his Epogen at home as he was taking prior to admission. 3. Generalized weakness and deconditioning. Patient has improved significantly since admission and he is being advised and encouraged to continue and maintain with physical activity at home. 4. Peripheral vascular disease. This is a chronic issue and patient had ischemic changes in left big toe. He has already seen Dr. Canseco, who is off this week and I will discuss with her next week when she returns from vacation. He is likely to require some amputation. He already had some angioplasties without any significant improvement in his symptoms.
== END 2019-07-31 12:04 | disposition home or self-care (01) | DRG 640 ==
LOC: M PCU 16:42
PROVIDERS: ADMIT Internal Medicine; ATTEND Internal Medicine
PROC: 3E1M39Z Irrigation of Peritoneal Cavity using Dialysate, Percutaneous Approach (ICD-10-PCS; principal; 2019-07-26)
PROC: 30233N1 Transfusion of Nonautologous Red Blood Cells into Peripheral Vein, Percutaneous Approach (ICD-10-PCS; 2019-07-28)
DX: E86.0 Dehydration (principal); N18.6 End stage renal disease; I50.43 Acute on chronic combined systolic (congestive) and diastolic (congestive) heart failure; I13.2 Hypertensive heart and chronic kidney disease with heart failure and with stage 5 chronic kidney disease, or end stage renal disease; N25.81 Secondary hyperparathyroidism of renal origin; E46 Unspecified protein-calorie malnutrition; R55 Syncope and collapse; E16.2 Hypoglycemia, unspecified; I27.20 Pulmonary hypertension, unspecified; M10.371 Gout due to renal impairment, right ankle and foot; D63.1 Anemia in chronic kidney disease; I73.9 Peripheral vascular disease, unspecified; K21.9 Gastro-esophageal reflux disease without esophagitis; J44.9 Chronic obstructive pulmonary disease, unspecified; E87.6 Hypokalemia; E83.42 Hypomagnesemia; I95.89 Other hypotension; I25.10 Atherosclerotic heart disease of native coronary artery without angina pectoris; Z99.2 Dependence on renal dialysis; Z79.82 Long term (current) use of aspirin; Z79.02 Long term (current) use of antithrombotics/antiplatelets; Z79.899 Other long term (current) drug therapy; Z90.5 Acquired absence of kidney; Z88.1 Allergy status to other antibiotic agents; Z88.8 Allergy status to other drugs, medicaments and biological substances; Z85.528 Personal history of other malignant neoplasm of kidney; Z85.46 Personal history of malignant neoplasm of prostate; Z87.891 Personal history of nicotine dependence; Z88.6 Allergy status to analgesic agent; Z88.5 Allergy status to narcotic agent

== ENCOUNTER → 2019-08-08 | Outpatient (CLI) | payer MEDICARE, OTHER ==
[~2019-08-08] MED LIST changes: +ATOR40TA75 PO; +COLA100C5 PO; +HEPA100I26 IV; +SPIR1CAP INH; +[UNRECOGNIZED DRUG - CODE] INJ
--- NOTE | 2019-08-08 17:26 | REP ---
Bilateral lower extremity duplex arterial ultrasound: History: Follow-up left leg angiography. Comparison lower extremity arterial ultrasound May 03, 2019. Findings: Ankle brachial indices could not be obtained due to noncompressible vessels. There is a small fluid collection noted incidentally adjacent the medial malleolus on the right 1.7 cm in greatest diameter. Heavily calcified vessels are again seen. Predominately biphasic arterial wave forms are noted in the right lower extremity except for the distal anterior and posterior tibial arteries, which are monophasic. Predominately biphasic waveforms are noted in the left lower extremity. Monophasic waveforms noted in the profunda on the left and in the distal posterior tibial. The distal anterior tibial on the left is occluded. Previously noted right anterior tibial artery stenosis is not seen today. Right lower extremity arterial Doppler velocity chart: CF A 69 cm/S Profunda 94 Proximal SFA 79 Mid SFA 50 Distal SFA 745 Popliteal 60 Proximal AT A 61 Tibioperoneal trunk 24 Proximal STAFF PSYCHOLOGIST 29 Distal STAFF PSYCHOLOGIST 11 Distal AT A 41 Left lower extremity arterial Doppler velocity chart: CF A 65 cm/S Profunda 68 Proximal SFA 88 Mid SFA 45 Distal SFA 68 Popliteal 41 Proximal AT A 19 Tibioperoneal trunk 33 Proximal STAFF PSYCHOLOGIST 68 Distal STAFF PSYCHOLOGIST 62 Distal AT A occluded Electronically Signed by Daniel Williamson MD 08/08/2019 05:18 P
== END ==
LOC: M RAD 14:49
PROVIDERS: ATTEND Physician Assistant
DX: I70.245 Atherosclerosis of native arteries of left leg with ulceration of other part of foot (principal); I70.213 Atherosclerosis of native arteries of extremities with intermittent claudication, bilateral legs

== ENCOUNTER → 2019-09-05 | Outpatient (CLI) | payer MEDICARE, OTHER ==
[~2019-09-05] MED LIST changes: +ISOVUE-300 61% 50ML VIAL As Ordered ONE; +KETOROLAC 30 MG/ML 1ML VIAL As Ordered ONE; +LIDOCAINE 1% MDV 20ML VIAL As Ordered ONE; +MIDAZOLAM INJ 2MG/2ML VIAL (J2250 PER 1MG) As Ordered ONE; +SENS60TA PO; +fentaNYL 100 MCG/2 ML INJECTION (J3010) As Ordered ONE
[2019-09-05 09:15] LABS: HEMATOCRIT 33.8 % (42.0-52.0); HEMOGLOBIN 11.4 g/dl (13.5-17.5); MEAN CORPUSCULAR HEMOGLOBIN 31.9 pg (27.0-33.0); MEAN CORPUSCULAR HGB CONC 33.7 g/dl (32.0-36.5); MEAN CORPUSCULAR VOLUME 94.7 fl (80.0-96.0); PLATELET COUNT, AUTOMATED 253 10^3/uL (150-450); RED BLOOD COUNT 3.57 10^6/uL (4.30-6.10); WHITE BLOOD COUNT 9.2 10^3/uL (4.0-10.0)
[2019-09-05 09:41] LABS: CALCIUM LEVEL 9.3 MG/DL (8.8-10.2); CREATININE FOR GFR 9.61 MG/DL (0.70-1.30); GLOMERULAR FILTRATION RATE 5.7 (>42); POTASSIUM SERUM 3.5 MEQ/L (3.5-5.1)
--- NOTE | 2019-09-05 11:51 | ROOPDOC ---
[facility] Report Of Operation Report of Operation DATE OF PROCEDURE: 09/05/19 PREPROCEDURE DIAGNOSES: Atherosclerosis of the [place] vessels with nonhealing wound left first toe. POSTPROCEDURE DIAGNOSES: Same PROCEDURE: 1. Ultrasound-guided access right common femoral artery 2. Aortoiliofemoral arteriogram with selection of left common femoral and S of a with left lower extremity runoff 3. Angioplasty left distal SFA and popliteal artery with 5 x 200 [place] balloon 4. Cross chronic total occlusion left anterior tibial artery and dorsal pedis artery and angioplastied with 2.5 x 220 Ax[place] balloon 5. Cross chronic total occlusion left peroneal artery and angioplasty with 2.5 x 220 Axel balloon 6. Angioplasty left posterior tibial artery and medial plantar artery with 2.5 x 220 Axel balloon 7. Completion arteriograms 8. Mynx closure right common femoral artery SURGEON: Fallon Canseco MD ANESTHESIA: Local anesthesia with 9 mL lidocaine. Moderate intravenous conscious sedation was supervised by Dr. Canseco. The patient was independently monitored by registered nurse assigned to the Department of radiology using automated blood pressure, EKG, and pulse oximetry. The details sedation record is permanently stored in the hospital information system. The following is a brief sedation record: Start time 10:06, stop time 11:12, Versed 4 mg IV, Lali dol 30 mg IV, heparin 5000 units IV. CONTRAST: 55 mL Isovue-300 INDICATION FOR PROCEDURE: This is a very pleasant 79-year-old gentleman with end-stage renal disease who to dialyzes with peritoneal dialysis, and has progressive severe peripheral vascular disease with severe tibial disease and calcification of the microvessels. He has a long-standing history of a painful nonhealing left first toe. This has gotten progressively worse over the past few weeks and the patient would like to have an amputation of the toe. My concern was that he may not have maintained patency after his last arteriogram with tibial intervention. Arterial duplex confirmed there was severe recurrent tibial disease. Risks benefits and alternatives to an arteriogram with re-intervention on the left lower extremity were explained to the patient and his agreeable to proceed. Our goal is to open up enough blood flow that he may be able to heel a left first toe". Informed consent was obtained. INTERPRETATION: 1. The aortoiliofemoral segments bilaterally are widely patent. There is some calcification, but no flow-limiting ectasia or stenosis is present. 2. The entire femoral, popliteal, and tibial system on the left is heavily calcified. There are no flow-limiting stenosis in the left common femoral artery, profunda, or proximal SFA. There is some ectasia and narrowing at the distal left superficial femoral artery Pascual's canal. There is also some ectasia and 40% narrowing in the popliteal artery proximally. Distal to this, the popliteal artery is patent in the 3 tibial vessels are open proximally. Distally however, the posterior tibial artery has several focal stenoses in the 80-90% range, but it is the best runoff to the foot and has flow into the medial plantar vessel and the plantar arch. The anterior tibial artery occludes in the mid calf and then reconstitutes through collaterals and runs off with ready outflow to the DP distally. It provides minimal flow to the foot. The peroneal artery occludes in the mid calf and does not reconstitute. 3. After angioplasty of the left distal SFA and peroneal artery, there is widely patent flow with no significant flow-limiting stenosis residual. No dissection, embolization, extravasation was noted. 4. After angioplasty of the left anterior tibial artery for multiple three- minute inflations along the length of the vessel to the dorsal pedis artery, we still did not have in mind flow. There were 2 areas in the mid calf of heavy calcified plaque that we were able to cross but were resistant to angioplasty with the balloon. Despite high-pressure multiple inflations, these areas remained stenotic and this limited our flow through the anterior tibial into the dorsal pedis. It is somewhat better then his initial arteriogram, but not a significant improvement. No dissection, embolization, extravasation was noted. 5. After angioplasty of the left peroneal artery, there is a marked improvement inflow all the way to the ankle. No dissection, embolization, extravasation was noted. 6. After angioplasty of the left posterior tibial artery, we had widely patent flow from the origin of the vessel down through the medial plantar arch. No dissection, embolization, extravasation was noted. REPORT OF OPERATION: Patient was brought to the angiographic suite in stable condition. His bilateral groins were prepped and draped in a sterile fashion. A timeout was performed. Sedation was administered without complication. Local anesthesia was administer to the skin and subcutaneous cutaneous tissue over the right common femoral artery and a microneedle was used to access the artery under ultrasound guidance. A wire was passed through this access and the needle was removed and a micro-sheath for [place] was placed and flushed with saline. A Glidewire conjugate catheter were advanced into the distal aorta. Aortoiliofemoral arteriogram was performed, please interpretation above. We then went up and over the bifurcation with a Glidewire and the contra catheter and selected the left common femoral artery and superficial femoral artery. Left lower extremity runoff was performed. Please interpretation above. We then navigated the Glidewire into the distal popliteal artery and exchange the sheath for a 6 [place] 90 cm sheath. This was flushed with saline. We angioplastied the distal SFA and popliteal artery for three-minute inflations with a 5 x 200 [place] balloon, and completion arteriogram following this showed the vessel to be widely patent with no significant flow-limiting stenosis remaining. No embolization extravasation or dissection were noted. We then replaced the inner cannula of the sheath and advanced it over the wire into the distal popliteal artery. We then exchange the wire for an O18 Glidewire advantage and navigated this into the anterior tibial artery. We were able to cross into the dorsal pedis artery and we began sequential angioplasties with a 2.5 x 220 Axel balloon. Unfortunately, despite 6 angioplasties along the length of the vessel, there was still areas in the mid calf that were resistant to angioplasty and flow was somewhat limited because of this. We did have distal flow through collaterals, but it was not brisk in mind flow as we had hoped. We then turned our attention to peroneal artery and the wire was navigated through the occlusion to the ankle. We angioplastied for three-minute inflations along the length of the vessel with a 5 x 220 Axel balloon and following this there was widely patent inflow through the peroneal artery with negligible residual stenosis. Following this, we utilized a glide cath to navigate the a 18 wire into the posterior tibial artery and we were able to cross into the medial plantar artery of the foot. We angioplastied the length of the vessel for three- minute inflations with a 5 x 220 Axel balloon and following this was a dramatic improvement inflow through the posterior tibial artery to the foot. The areas of focal stenoses were improved with less than 20% residual stenosis. There was no extravasation embolization or dissection in the tibial vessels after angioplasty. We then exchanged the sheath for short 6 [place] sheath over the O35 Glidewire and applied a Mynx closure device in the right common femoral artery with good hemostasis. Pressure was held for 10 minutes and sterile dressings were applied. The patient was taken to recovery in stable condition. He tolerated the procedure and the sedation well. ESTIMATED BLOOD LOSS: Approximately 5 mL. COMPLICATIONS: None. PLAN: Okay to resume home diet medications. We are tentatively planning for a left first toe amputation on 09/14/2019. If the patient is able to have the procedure with our podiatry colleagues sooner, is certainly okay to proceed with this. We'd like the patient to have the amputation as soon as possible to take advantage of any improvement in blood flow obtained today. We do not know how long the added patency we'll persists, and it is possible for restenosis at any time, due to the severity of his peripheral vascular disease. Therefore, the sooner we are able to amputate the toe the better the chance for healing. I disc ussed with the patient and his that if the toe does not heal, he may require further amputation, possibly a ray amputation, possibly a TMA, possibly a below-knee amputation. They are certainly not happy to hear that that is a possibility, but we must be honest that at this point his blood flow is suboptimal despite our improvements today. I am still hopeful nevertheless that we will be able to heel first toe amputation and hopefully the patient will finally be out of the constant pain he has been in for many months. We appreciate the opportunity to participate in the care of this patient. FALLON CANSECO MD Sep 05, 2019 11:51
[2019-09-05 15:00] VITALS: BP 135/71
== END ==
LOC: M IRPRO 08:33
PROVIDERS: ATTEND Surgery Vascular Surgery
DX: I70.245 Atherosclerosis of native arteries of left leg with ulceration of other part of foot (principal); L97.529 Non-pressure chronic ulcer of other part of left foot with unspecified severity; I70.92 Chronic total occlusion of artery of the extremities; I10 Essential (primary) hypertension; E11.51 Type 2 diabetes mellitus with diabetic peripheral angiopathy without gangrene; Z79.899 Other long term (current) drug therapy; Z79.82 Long term (current) use of aspirin; Z88.6 Allergy status to analgesic agent; Z88.8 Allergy status to other drugs, medicaments and biological substances

== ENCOUNTER → 2019-09-11 | Outpatient (CLI) | payer MEDICARE, OTHER ==
[~2019-09-11] MED LIST changes: -ISOVUE-300 61% 50ML VIAL As Ordered ONE; +K-TA10TA PO; -KETOROLAC 30 MG/ML 1ML VIAL As Ordered ONE; -LIDOCAINE 1% MDV 20ML VIAL As Ordered ONE; -MIDAZOLAM INJ 2MG/2ML VIAL (J2250 PER 1MG) As Ordered ONE; -fentaNYL 100 MCG/2 ML INJECTION (J3010) As Ordered ONE
== END ==
LOC: M LABSMTC 11:05
PROVIDERS: ATTEND Anesthesiology
DX: Z03.818 Encounter for observation for suspected exposure to other biological agents ruled out (principal); Z11.59 Encounter for screening for other viral diseases
CPT/HCPCS: C9803; U0003

== ENCOUNTER 2019-09-14 10:40 | Inpatient (IN) | payer MEDICARE, OTHER ==
[~2019-09-14] VITALS: Ht 172.7 cm; Wt 75.1 kg
[~2019-09-14 10:40] MED LIST changes: -K-TA10TA PO; +LIDOCAINE 1% MDV 20ML VIAL SQ PRN; +LIDOCAINE 2% 100MG/5ML SDV (FOR ANES.) As Ordered ONE; +LR 1,000 ML IV ONE; +MIDAZOLAM INJ 2MG/2ML VIAL (J2250 PER 1MG) As Ordered ONE; +ONDANSETRON 4MG/2ML VIAL As Ordered ONE; +ceFAZolin SOD 2 GM in IV 1 EA IV ONE; +fentaNYL 100 MCG/2 ML INJECTION (J3010) As Ordered ONE; +propofoL 200 MG/20 ML VIAL As Ordered ONE
[2019-09-14 11:39] LABS: HEMATOCRIT 34.2 % (42.0-52.0); HEMOGLOBIN 11.7 g/dl (13.5-17.5); MEAN CORPUSCULAR HEMOGLOBIN 32.3 pg (27.0-33.0); MEAN CORPUSCULAR HGB CONC 34.2 g/dl (32.0-36.5); MEAN CORPUSCULAR VOLUME 94.5 fl (80.0-96.0); PLATELET COUNT, AUTOMATED 304 10^3/uL (150-450); RED BLOOD COUNT 3.62 10^6/uL (4.30-6.10); WHITE BLOOD COUNT 8.9 10^3/uL (4.0-10.0)
[2019-09-14] MEDS ORDERED: K-TA10TA PO (11:50)
[2019-09-14 11:53] LABS: INR 1.13; PARTIAL THROMBOPLASTIN TIME 38.5 SECONDS (25.0-38.4); PROTHROMBIN TIME 14.2 SECONDS (11.8-14.0)
[2019-09-14 12:52] LABS: CALCIUM LEVEL 9.1 MG/DL (8.8-10.2); CREATININE FOR GFR 9.94 MG/DL (0.70-1.30); GLOMERULAR FILTRATION RATE 6.6 (>42); POTASSIUM SERUM 3.5 MEQ/L (3.5-5.1)
[2019-09-14] MEDS ORDERED: BUPIVACAINE/EPIN 0.25% 30 ML VIAL As Ordered ONE (15:44)
[2019-09-14] MEDS ORDERED: LIDOCAINE 2% MDV 20ML VIAL As Ordered ONE ×2 (15:44→16:04)
[2019-09-14] MEDS ORDERED: PHENYLephrine HCL 500 MCG/5 ML (100MCG/ML) SYRINGE (J2370) As Ordered ONE (15:56)
[2019-09-14] MEDS ORDERED: PHENYLEPHRINE 10MG/ML 1ML VIAL (J2370 PER 1) As Ordered ONE (16:23)
[2019-09-14] MEDS ORDERED: fentaNYL 100 MCG/2 ML INJECTION (J3010) IV PRN (17:15)
[2019-09-14] MEDS ORDERED: LR 1,000 ML IV SCH (17:15)
[2019-09-14] MEDS ORDERED: ONDANSETRON 4MG/2ML VIAL IV PRN ×2 (17:15→17:30)
[2019-09-14] MEDS ORDERED: ACETAMINOPHEN 1000MG 100ML IV BTL (OFIRMEV) (J0131 PER 10MG) As Ordered ONE (17:20)
--- NOTE | 2019-09-14 17:39 | ROOPDOC ---
[facility] Report Of Operation Report of Operation DATE OF PROCEDURE: 09/14/19 PREPROCEDURE DIAGNOSES: Atherosclerosis in the [place] vessels with nonhealing wound left first toe, severe pain. POSTPROCEDURE DIAGNOSES: Same PROCEDURE: Left first toe ray amputation. SURGEON: Ella Canseco MD ANESTHESIA: Monitored anesthesia care and local anesthesia 28 mL 2% lidocaine INDICATION FOR PROCEDURE: This is a very pleasant 79-year-old gentleman with end-stage renal disease and severe calcified peripheral vascular disease with poor wound healing of the left first toe after a toenail removal quite some time ago. The pain has continued to worsen over the past month or 2. We have done multiple revascularizations trying to open heavily calcified vessels down to the foot, and we are able to open them successfully, but then the reocclude with time. Unfortunately, we never know how much time, and we just did a repeat procedure and opened flow through the posterior tibial artery to the foot, so would like to take advantage of this since this is helps supply the angiosome of the first toe. Initially, I was hoping the patient could follow up with Dr. Donohue for toe amputation following arteriogram, but there was a mixup with his appointments and I was worried that if he waited for a later appointment, and then a later OR date, it might be several weeks before he could get his toe amputated. Unfortunately, this may be too much time, and his distal tibial and pedal arteries may reocclude in the interim. Therefore, we discussed the risks benefits and alternatives to a left first toe amputation versus left first toe ray amputation, depending on the viability of the tissue at the distal foot. Patient was agreeable to proceed. Informed consent was obtained. REPORT OF OPERATION: Patient was brought to the operating room in stable condition and placed supine on the OR table. Monitored anesthesia care and antibiotics were administered without complication. His left lower extremity was prepped and draped in a sterile fashion. A timeout was performed. Local anesthesia was administered to the skin and subcutaneous tissue at the ankle and at the distal toe. An incision was made at the distal toe, but the tissue did not appear viable circumferentially. Therefore, the incision was extended over the anterior medial aspect of the foot to the midfoot. The tissue was removed from the metatarsal head and proximally until metatarsal. Bovie cautery was used to dissect down around the metatarsal head and the toe was removed and sent for pathology. A bone saw was used to transect the first metatarsal just proximal to the metatarsal head. The bones was also used to bevel the bone slightly to prevent pressure on the closure. A rasp was used to smooth the bone. Bovie ca utery was used for hemostasis within the wound. Tendons were pulled taut and cut and allowed to retract. The wound was thoroughly irrigated. The deep and superficial tissues were approximated with Vicryl sutures. The skin was closed with nylon mattress sutures and nylon simple interrupted sutures. The patient was allowed to awaken from anesthesia was taken to recovery in stable condition. He tolerated the procedure well. ESTIMATED BLOOD LOSS: Approximately 25 mL. COMPLICATIONS: None. PLAN: The patient will be admitted for 23 hour observation for offloading of the left foot, lower extremity elevation due to edema, peritoneal dialysis per Dr. Forman, and analgesia as needed. Our goal will be to discharge home tomorrow. We will also restart his Plavix tomorrow. I like him to be nonweightbearing on the left lower extremity as much as possible, and has a walker at home to help minimize pressure to the left foot. The patient's was thoroughly counseled about this. The more weightbearing he has, the less chance for healing. She understands this is extremely important. We appreciate the opportunity to participate in the care of this patient. ELLA CANSECO MD Sep 14, 2019 17:39
[2019-09-14 17:43] VITALS: BP 100/52
[2019-09-14] MEDS ORDERED: ACETAMINOPHEN *IV* 1,000 MG IV ONE ×2 (18:00)
--- NOTE | 2019-09-14 18:36 | HPEPDOC ---
[facility] Medical History & Physical Date of Admission Sep 14, 2019 Date of Service: Sep 14, 2019 Primary Care Physician: Shanel Forman MD Attending Physician: MOLLY CHIANG MD History and Physical TIME OF SERVICE: 645 PM CC: Left toe infection HISTORY OF PRESENT ILLNESS: This is a 79-year-old gentleman who had poor wound healing of the left first toe after toenail removal. Today he underwent left first toe ray toe amputation by Dr. Canseco. Postoperatively is experienced quite a bit of swelling and some pain. The patient has had adverse reactions to NSAIDs and opiates in the past and will be admitted overnight in order to optimize his pain medicine regimen. REVIEW OF SYSTEMS: 12 point review of systems negative except as listed in HPI PAST MEDICAL/ SURGICAL HISTORY: Peripheral Vascular disease / multiple vascular procedures to try improve flow to the left lower extremity Chronic CAD ESRD on PD Status post bilateral nephrectomies for renal cell cancer Anemia of chronic renal disease Gout History of hypertensive nephrosclerosis Chronic diastolic congestive heart failure Pulmonary hypertension Mild to moderate aortic valve sclerosis with trace aortic valve regurgitation GERD History of prostate cancer status post prostatectomy Peritoneal dialysis catheter placement Tunneled hemodialysis catheter placement Hx of surgical procedure on left hallux SOCIAL HISTORY: 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 HOME MEDICATIONS: Please see below. PHYSICAL EXAMINATION: Vital Signs Date Time Temp Pulse Resp B/P (MAP) Pulse Ox O2 Delivery O2 Flow Rate FiO2 09/14/19 11:36 97.8 87 22 95/63 (74) 100 Room Air GEN: well-nourished / well developed/ NAD INTEGUMENT: not flushed/ his left toe was wrapped in clean and dry dressings / the left foot was slightly cool to touch HEENT: NCAT / lips acyanotic /mucus membranes moist and pink CVS: RRR/he has a systolic murmur LUNGS: are clear to auscultation bilaterally on room air MSK/EXTREMITIES: range of motion intact in all 4 extremities NEURO: CN 2-12 are grossly intact / speech is not dysarthric PSYCH: alert and oriented LABORATORY DATA: 09/14/19 11:17 Nucleated Red Blood Cells % (auto) 0.0, Prothrombin Time 14.2H, Prothromb Time International Ratio 1.13, Activated Partial Thromboplast Time 38.5H, Anion Gap 12, Glomerular Filtration Rate 6.6L, Calcium Level 9.1 ASSESSMENT: a 79-year-old with a history of PAD, CAD, ESRD, nephrectomies, anemia of chronic disease, gout, diastolic heart failure, pulmonary hypertension, GERD, and history of prostate cancer who is admitted for pain management after undergoing observation after left first ray amputation. PLAN: 1. Left first toe infection s/p amputation Plan: admit to medical floor / c/w acetaminophen and tramadol for pain 2. Peripheral Vascular disease - atorvastatin / resume Plavix tomorrow 3. ESRD with anemia of chronic disease- management per / alycia Mari 4. Chronic CAD - atorvastatin 5. GERD - omeprazole DVT PROPHYLAXIS: TEDs & SCDS if he is able to tolerate them DISPOSITION: possibly home tomorrow Home Medications Scheduled Atorvastatin Calcium (Atorvastatin Calcium) 40 Mg Tablet, 40 MG PO QHS Cinacalcet HCl (Sensipar) 60 Mg Tablet, 60 MG PO 3XWP Clopidogrel Bisulfate (Clopidogrel) 75 Mg Tablet, 75 MG PO DAILY Docusate Sodium (Colace) 100 Mg Capsule, 100 MG PO BIDP Epoetin [place] (Epogen) 20,000 Unit/1 Ml Vial, 20,000 UNIT INJ ASDIRECTED EVERY 2 WEEKS Heparin Sodium,Porcine/Pf (Heparin 1,000 Unit/10 (100/ml)) 1,000 Unit/10 Ml Syr ugo, 1,500 UNIT IV QWEEK GIVEN AT DIALYSIS ON MONDAYS Multivitamins (Thera M Plus Tablet) 1 Each Tablet, 1 TAB PO DAILY Omeprazole (Omeprazole) 20 Mg Capsule.dr, 20 MG PO DAILY Potassium Chloride (K-Tab ER) 10 Meq Tablet.er, 20 MEQ PO DAILY Sevelamer Carbonate (Renvela) 800 Mg Tablet, 800 MG PO WM Scheduled PRN Ipratropium/Albuterol Sulfate (Iprat-Albut 0.5-3(2.5) mg/3 ml) 3 Ml Ampul.neb, 1 VIAL NEB Q4H PRN for SOB/WHEEZING Tiotropium [place] (Spiriva) 18 Mcg Cap.w.dev, 18 MCG INH DAILY PRN for SOB/WHEEZING Allergies Coded Allergies: amlodipine (Verified Allergy, Unknown, 09/07/19) indomethacin (Verified Allergy, Unknown, 09/07/19) nifedipine (Verified Allergy, Unknown, 09/07/19) NSAIDS (Non-Steroidal Anti-Inflamma (Verified Adverse Reaction, Intermediate, RECTAL BLEEDING, 09/07/19) TAKES 81MG ASA AT HOME FINE hydralazine (Verified Adverse Reaction, Mild, ELEVATED BP, 09/07/19) Opioids - Morphine Analogues (Verified Adverse Reaction, Unknown, DIALYSIS PT, 09/14/19) minoxidil (Verified Adverse Reaction, Unknown, SWELLING, 09/07/19) A-FIB/CHADSVASC A-FIB History Current/History of A-Fib/PAF?: No Current PO Anticoag Therapy: No MOLLY CHIANG MD Sep 14, 2019 18:36
[2019-09-14] MEDS ORDERED: MAALOX 30 ML SUSP *UDC PO PRN (18:45)
[2019-09-14] MEDS ORDERED: MOM 30ML SUSPENSION UDC PO PRN (18:45)
[2019-09-14] MEDS: (RENVELA) SEVELAMER **CARBONate** 800 MG TAB PO SCH (18:47)
[2019-09-14] MEDS: traMADol 50 MG TAB PO PRN (18:47)
[2019-09-14 19:30] VITALS: BP 113/57
[2019-09-14 20:30] VITALS: BP 112/53
[2019-09-14] MEDS: POTASSIUM CHLORIDE 10 MEQ SR TABLET PO SCH (20:49)
[2019-09-14] MEDS: diazePAM 5 MG TAB PO PRN (20:49)
[2019-09-14 21:30] VITALS: BP 135/76
--- NOTE | 2019-09-14 21:42 | CR ---
DATE OF CONSULTATION: 09/14/2019 NEPHROLOGY CONSULTATION FOR: Chelo Sheffield MD. REASON FOR CONSULTATION: To assist in the management of end-stage renal disease, peritoneal dialysis and leg edema. NOTE: I was called by Dr. Canseco to see Mr. Mckinney as he is being admitted after his toe amputation and has bilateral lower extremity edema. The patient needs his peritoneal dialysis through the night. HISTORY OF PRESENT ILLNESS: Mr. Mckinney is 79-year-old gentleman with a known history of end-stage renal disease, history of renal cell carcinoma, status post bilateral nephrectomy, history of congestive heart failure, history of gout and peripheral vascular disease. He had developed gangrenous left big toe and needed his toe amputation. The patient has recently developed low blood pressure and lower extremity edema. He had surgery today for left big toe amputation. He is admitted after surgery, and I was asked to see him for his peritoneal dialysis needs and leg edema. PAST MEDICAL HISTORY: Significant for: 1. End-stage renal disease, currently on peritoneal dialysis. 2. History of hypertension in the past and currently he is mostly hypotensive. 3. Anemia of chronic kidney disease. 4. Gout. 5. History of congestive heart failure. 6. History of pulmonary hypertension. 7. Gastroesophageal reflux disease. 8. Coronary artery disease. 9. History of prostate cancer. 10. History of renal cell carcinoma. PAST SURGICAL HISTORY: Significant for hemodialysis tunneled catheter, history of peritoneal dialysis catheter placement, history of bilateral nephrectomies and history of prostatectomy. MEDICATIONS: His home medications include aspirin 81 mg daily, atorvastatin 40 mg daily, Renvela 800 mg three times a day, vitamin D 1000 units daily, cinacalcet 60 mg three times a week, Plavix 75 mg daily, Epogen 20,000 units once a week, multivitamin one tablet daily, omeprazole 20 mg daily, docusate 100 mg twice a day, albuterol inhaler as needed and Tylenol as needed. ALLERGIES: The patient has multiple allergies including AMLODIPINE, INDOMETHACIN, NIFEDIPINE and HYDRALAZINE. PERSONAL AND SOCIAL HISTORY: The patient lives with his significant other. He is a former smoker. Does not drink or use any illicit drugs. FAMILY HISTORY: Noncontributory. REVIEW OF SYSTEMS: The patient denies any fever or chills. Ears, nose and throat are unremarkable. Cardiovascular system: Significant for persistent hypotension. Denies any chest pain and has developed leg edema only during last couple of weeks. Respiratory system is negative for cough or hemoptysis. He has known history of pulmonary hypertension. Gastrointestinal (GI) system: Negative for vomiting or diarrhea. He denies any abdominal pain at present. Genitourinary () system: Negative for any dysuria or hematuria. He does not make any urine as he has bilateral nephrectomies. Musculoskeletal system: As per history of present illness. Hematological system: Significant for anemia of chronic kidney disease. Endocrine system: Significant for secondary hyperparathyroidism and no history of diabetes or thyroid problems. Psychosocial system: Negative for depression or anxiety. PHYSICAL EXAMINATION: At the time of my visit, the patient is laying in the bed without any acute distress. Temperature is 97.7 degrees Fahrenheit, heart rate 76 per minute and respiratory rate 18 per minute. Blood pressure about 105/55 mmHg and oxygen saturation 97% on room air. Head is atraumatic. Neck: Supple and without jugular venous distention (JVD) or thyroid enlargement. He has no oral thrush or ulcers. Heart sounds are regular and lungs sound clear to auscultation. Abdomen is soft and nontender. Peritoneal dialysis catheter is without any signs of infection or bleeding. Extremities: Have no cyanosis or clubbing. Left foot is wrapped in dressing. Right big toe also has a dressing. There is 1+ edema on both legs. Neurologically, he is awake, alert and oriented times three. LABORATORY DATA: Today's labs show WBC count 8.9, hemoglobin 11.7 and hematocrit 34.2. Platelets 304. Sodium 133, potassium 3.5, CO2 of 26, BUN 33 and creatinine 9.94. Glucose 99 and calcium 9.1. INR is 1.13. PROBLEMS: 1. End-stage renal disease. The patient has been maintained on peritoneal dialysis at home. We will order five exchanges per 24 hours. He will get at least two exchanges tonight and one exchange in the morning. We will use 2.5% solution in order to get negative fluid balance. We will have to monitor his blood pressure closely as he has borderline hypotension. 2. Hypokalemia. Potassium level is borderline and will start with potassium chloride 10 mEq twice a day. The patient should be placed on a regular diet. 3. Hyponatremia. Sodium level is slightly low and related to end-stage renal disease. No specific intervention is needed, and it is likely to improve with peritoneal dialysis or will remain stable. 4. Anemia. At present, his anemia is stable and does not need any urgent intervention. 5. Hypotension. Blood pressure has been generally on the low side. He is currently asymptomatic and not on any medications. We will consider midodrine if needed. 6. Peripheral vascular disease, status post left big toe amputation. The patient is doing well after surgery, and he will be followed up by vascular surgery. Thank you for involving me in the care of Mr. Mckinney. I will follow him along with you.
[2019-09-14 22:00] VITALS: BP 113/55
[2019-09-14 22:30] VITALS: BP 108/67
[2019-09-14] MEDS ORDERED: GABAPENTIN 100 MG CAP PO ONE (22:45)
[2019-09-15] VITALS (7 sets, daily range): BP systolic 95–131; BP diastolic 50–69
[2019-09-15] MEDS: traMADol 50 MG TAB PO PRN ×3 (01:09→20:42)
[2019-09-15] MEDS: diazePAM 5 MG TAB PO PRN (04:57)
[2019-09-15 07:26] LABS: HEMATOCRIT 34.5 % (42.0-52.0); HEMOGLOBIN 11.8 g/dl (13.5-17.5); MEAN CORPUSCULAR HEMOGLOBIN 32.3 pg (27.0-33.0); MEAN CORPUSCULAR HGB CONC 34.2 g/dl (32.0-36.5); MEAN CORPUSCULAR VOLUME 94.5 fl (80.0-96.0); PLATELET COUNT, AUTOMATED 267 10^3/uL (150-450); RED BLOOD COUNT 3.65 10^6/uL (4.30-6.10); WHITE BLOOD COUNT 10.7 10^3/uL (4.0-10.0)
[2019-09-15 08:00] LABS: CALCIUM LEVEL 8.8 MG/DL (8.8-10.2); CREATININE FOR GFR 10.4 MG/DL (0.70-1.30); GLOMERULAR FILTRATION RATE 6.3 (>42); POTASSIUM SERUM 3.6 MEQ/L (3.5-5.1)
[2019-09-15] MEDS: TIOTROPIUM INHALER/CAPSULE (SPIRIVA) INH SCH (08:00)
[2019-09-15] MEDS: POTASSIUM CHLORIDE 10 MEQ SR TABLET PO SCH ×2 (08:51→20:43)
[2019-09-15] MEDS: (RENVELA) SEVELAMER **CARBONate** 800 MG TAB PO SCH ×4 (09:42→20:42)
--- NOTE | 2019-09-15 13:22 | IPNPDOC ---
Date Seen The patient was seen on 09/15/19. Progress Note Patient seen and examined postoperative day one status post left first toe ray amputation. He is doing well. He says his pain is well controlled, and much improved status post toe amputation. He had peritoneal dialysis, and we appreciate the assistance of Dr. Forman. He says he feels very weak today, and does not know if he is ready to go home. The patient said that the hospitalist felt he should stay over the weekend until Tuesday. From a vascular standpoint, it is okay for the patient to discharge or stay in the hospital depending on his needs. We will continue to follow if he remains inpatient. On exam, the left foot incision is clean dry and intact. I thoroughly cleaned the incision, and redressed with Xeroform fluffs kerlix and coban. We do not want any tight dressings on the foot as his blood flow is tenuous, it is unclear if he will have enough blood flow to heal this incision. It was a risk we were willing to take, and since he had recently undergone revascularization that may or may not provide a long-lasting result, we felt proceeding with a toe amputation at this time was the safest option possible if we were to get the area to heal. However, the patient is aware that he may require further amputation if perfusion does not remain adequate, but we are both hopeful that this will not be necessary. Offload the left foot as much as possible. We will try to determine the best way to obtain an IPOS forefoot offload postop shoe to keep pressure off the incision when the patient is ambulating. His says he only ambulates short distances at home to and from the bathroom, and uses a walker. I discussed with her that if he could remember, a heel touch only would be adequate, but unfortunately I believe the patient will have difficulty with this and will invariably put pressure on the front of his foot. The forefoot offload shoe would be very beneficial to help avoid this and give the incision the best chance possible to heal. VS, I&O, 24H, Fishbone Vital Signs/I&O Vital Signs Date Time Temp Pulse Resp B/P (MAP) Pulse Ox O2 Delivery O2 Flow Rate FiO2 09/15/19 10:30 97.7 74 16 95/50 (65) 97 Room Air I&O- Last 24 Hours up to 6 AM 09/15/19 06:00 Intake Total 4600 ml Output Total 3700 ml Balance 900 ml Laboratory Data 24H LABS Laboratory Tests 2 09/15/19 06:45: Nucleated Red Blood Cells % (auto) 0.0, Anion Gap 12, Glomerular Filtration Rate 6.3L, Calcium Level 8.8 CBC/BMP Laboratory Tests 09/15/19 06:45 ELLA STEPHENSON MD Sep 15, 2019 13:22
--- NOTE | 2019-09-15 13:47 | IPNPDOC ---
Subjective Date Seen The patient was seen on 09/15/19. Subjective Chief Complaint/HPI Pt reported pain in right big toe and left foot. Pt appears to be very sleepy during examination but arousable thus limited info was able to be obtained. He denies any fever chills, chest pain, palpitation, dyspnea, or abdominal pain. Further ROS was not able to be obtained. He reported no BM yet since procedure General: Denies: Chills Constitutional: Denies: Chills, Fever Pulmonary: Denies: Dyspnea Cardiovascular: Denies: Chest Pain Gastrointestinal: Denies: Abdominal Pain Objective Physical Examination General Exam: Positive: Alert, Cooperative, No Acute Distress, Other (sleepy bu t arousable, falls asleep several times during interview) Eye Exam: Positive: Conjunctiva & lids normal; Negative: Sclera icteric ENT Exam: Positive: Atraumatic, Mucous membr. moist/pink Neck Exam: Positive: Supple Chest Exam: Positive: Rhonchi (mild b/l), Diminished, Other (mildly decreased air entry b/l); Negative: Wheezing Heart Exam: Positive: Rate Normal, Regular Rhythm, Normal S1, Normal S2; Negative: Murmurs Abdomen Exam: Positive: BS Hypoactive, Soft, Other (peritoneal dialysis running); Negative: Tenderness Extremity Exam: Positive: Normal pulses, Other (left foot wrapped and covered with kerlix; foam on right great toe; right dorsalis pedis and posterior tibial pulse palpated); Negative: Edema Skin Exam: Positive: Nl turgor and temperature Neuro Exam: Positive: Normal Tone; Negative: Normal Speech (sleepy; answers no and yes only) Psych Exam: Negative: Mental status NL Assessment /Plan Assessment Pt is a 79 yo male with PMH of renal cell carcinoma, status post bilateral nephrectomy, ESRD on peritoneal dialysis, and peripheral vascular disease presented with gangrenous left big toe s/p left first toe Ray amputation POD 1; pt received peritoneal dialysis today; PT/OT ordered 1. Left first toe infection s/p Ray amputation, POD 1. Pt reported pain in right big toe and left foot. Vascular surgery following; recommended to offload the left foot as much as possible. Vascular surgery plan to obtain IPOS forefoot offload postop shoe to keep pressure off the incision when pt ambulates. PT/OT, and activity per PT/OT. Pt now on morphine for pain. 2. Peripheral Vascular disease. Vascular surgery following. Resume home med atorvastatin and plavix 3. ESRD, on chronic peritoneal dialysis at home. Nephrology following. Pt received peritoneal dialysis inpt with 2 exchanges 09/14/2019 and 1 exchange 09/15/2019. Renal diet. Cont home med sevelamer4. 4. Chronic CAD. Cont home med atorvastatin 5. GERD. Cont home med Omeprazole 6. 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 Anemia stable, cont to follow CBC 7. Hypotension. MAP 65 this morning. It is noted that pt's blood pressure has been generally on the low side. Continue vital signs; consider midodrine PRN DVT PROPHYLAXIS: Heparin 5000 units Q8H. CHANDLER score 7; pharmacological DVT prophylaxis GI prophylaxis: Omeprazole Dispo: Left big toe RAY amputation POD 1. Resume home med. Pending PT/OT clearance Plan/VTE VTE Prophylaxis Ordered?: Yes VS, I&O, 24H, Fishbone Vital Signs/I&O Vital Signs Date Time Temp Pulse Resp B/P (MAP) Pulse Ox O2 Delivery O2 Flow Rate FiO2 09/15/19 10:30 97.7 74 16 95/50 (65) 97 Room Air I&O- Last 24 Hours up to 6 AM 09/15/19 06:00 Intake Total 4600 ml Output Total 3700 ml Balance 900 ml Laboratory Data 24H LABS Laboratory Tests 2 09/15/19 06:45: Nucleated Red Blood Cells % (auto) 0.0, Anion Gap 12, Glomerular Filtration Rate 6.3L, Calcium Level 8.8 CBC/BMP Laboratory Tests 09/15/19 06:45 GME ATTESTATION GME ATTESTATION My faculty preceptor for this patient encounter was physically present during the encounter and was fully available. All aspects of the patient interview, examination, medical decision making process, and medical care plan development were reviewed and approved by the faculty preceptor. The faculty preceptor is aware and concurs with the plan as stated in the body of this note and will at test to such by his/her cosignature. ATTENDING NOTE As preceptor for this patient I was fully available. All aspects of the patient interview, examination, medical decision making process, and medical care plan development were reviewed and approved. Aware and concur with the plan as stated in the body of this note and will attest to such by my cosignature. REECE EDMONDS DO Sep 15, 2019 13:47 DUANE LIVE MD Sep 24, 2019 12:25
[2019-09-15] MEDS: IPRATROPIUM HFA INHALER 12.9 GRAMS (ATROVENT HFA) INH PRN (14:05)
[2019-09-15] MEDS: ALBUTEROL 90 MCG/ACT 8GM HFA INHALER INH PRN (14:06)
[2019-09-15] MEDS: SENOKOT S TAB PO SCH (14:25)
[2019-09-15] MEDS: HEPARIN SOD (PORCINE) 5000UNITS/ML VIAL (J1644 PER 1000UNITS) SQ SCH ×2 (16:53→23:53)
[2019-09-15] MEDS: MORPHINE 2 MG/ML 1ML VIAL (J2270) IV PRN (18:25)
[2019-09-15] MEDS: ATORVASTATIN 20 MG TAB PO SCH (20:43)
[2019-09-16 06:00] VITALS: BP 117/61
[2019-09-16] MEDS: MORPHINE 2 MG/ML 1ML VIAL (J2270) IV PRN ×2 (06:08→11:02)
[2019-09-16] MEDS: TIOTROPIUM INHALER/CAPSULE (SPIRIVA) INH SCH (07:23)
[2019-09-16 08:35] LABS: BASO % 0.3 % (0.0-1.0); EOS # 0.9 10^3/uL (0.0-0.5); EOS % 12.3 % (0.0-3.0); HEMATOCRIT 27.1 % (42.0-52.0); LYMPH # 1.9 10^3/uL (1.5-5.0); LYMPH % 26.9 % (24.0-44.0); MEAN CORPUSCULAR HEMOGLOBIN 32.4 pg (27.0-33.0); MEAN CORPUSCULAR HGB CONC 33.9 g/dl (32.0-36.5); MEAN CORPUSCULAR VOLUME 95.4 fl (80.0-96.0); MONO # 0.6 10^3/uL (0.0-0.8); MONO % 8.8 % (0.0-5.0); NEUTROPHILS # 3.6 10^3/uL (1.5-8.5); NEUTROPHILS % 51.4 % (36.0-66.0); PLATELET COUNT, AUTOMATED 224 10^3/uL (150-450); RED BLOOD COUNT 2.84 10^6/uL (4.30-6.10); WHITE BLOOD COUNT 7.1 10^3/uL (4.0-10.0)
[2019-09-16 08:46] LABS: HEMOGLOBIN 9.2 g/dl (13.5-17.5)
[2019-09-16] MEDS: HEPARIN SOD (PORCINE) 5000UNITS/ML VIAL (J1644 PER 1000UNITS) SQ SCH ×3 (08:54→23:36)
[2019-09-16] MEDS: (RENVELA) SEVELAMER **CARBONate** 800 MG TAB PO SCH ×3 (08:54→21:33)
[2019-09-16] MEDS: SENOKOT S TAB PO SCH (08:54)
[2019-09-16] MEDS: CLOPIDOGREL 75 MG TAB PO SCH (08:55)
[2019-09-16] MEDS: MULTIVITAMINS/MINERALS THERAP 1 TAB PO SCH (08:55)
[2019-09-16] MEDS: POTASSIUM CHLORIDE 10 MEQ SR TABLET PO SCH ×2 (08:55→21:33)
[2019-09-16] MEDS: traMADol 50 MG TAB PO PRN ×2 (09:06→19:02)
--- NOTE | 2019-09-16 09:25 | IPN ---
DATE OF SERVICE: 09/15/2019 SUBJECTIVE: The patient was seen and examined at the bedside today morning. He is afebrile, hemodynamically stable. He denies any issues with the peritoneal dialysis. However, he still complains of persistent pain in the left lower extremity. He is currently on tramadol, which is not controlling his pain. He is status post left big toe amputation during this hospitalization. OBJECTIVE: Vital signs: Temperature is 97.8 degrees Fahrenheit, blood pressure 112/58, pulse is 74, respiratory rate of 16, saturating 99% on room air. Intake and output. There is no urine output recorded. Peritoneal dialysate output is 7.2 liters. Weight in the bed scale is not available. PHYSICAL EXAMINATION: General: The patient is awake, alert, oriented times three, laying in bed, in moderate painful distress. Head and neck examination: Extraocular muscles intact. Pupils equally round and reactive to light. Mucous membranes are moist. Neck is supple. There is no jugular venous distention (JVD). Cardiovascular: S1, S2, regular rate. No edema of the bilateral lower extremities. Respiratory: Mildly decreased breath sounds at the bases. Otherwise, no active rales or rhonchi. Abdomen: Soft. Positive bowel sounds. Nontender. No organomegaly. Musculoskeletal: The patient has a dressing in the left big toe amputation site. He has a dressing on the right foot, as well. Central nervous system (PROFESSOR OF EARLY CHILDHOOD EDUCATION): No focal deficit. Power is 5/5 in bilateral upper extremities. LABORATORY REVIEW: Complete blood count (CBC) showed a WBC of 10.7, hemoglobin 11.8, platelets are 267. Basic metabolic profile (BMP) showed sodium 133, potassium 3.6, chloride 94, bicarbonate 27, BUN 36, creatinine is 10.4. CURRENT INPATIENT MEDICATIONS: The patient's medications were all reviewed by me. I have started the patient on morphine 2 mg intravenous (IV) every 4 hours as needed moderate pain. No other significant change in the medications today as compared with yesterday. ASSESSMENT AND PLAN: 1. End-stage renal disease. The patient is peritoneal dialysis dependent. His volume status is better. I am going to change him back into alternating exchanges of 1.5% and 2.5%. 2. Pain in the left lower extremity. The patient gives history of delirium with opioids. Otherwise, he is not allergic. I am going to start him on morphine 2 mg every 4 hours as needed and will hold for sedation or drowsiness. 3. Anemia in end-stage renal disease. Hemoglobin level is 11.8, which is optimal. No need of Aranesp administration at this time. 4. Secondary hyperparathyroidism. Continue current dose of Sensipar 60 mg by mouth Tuesday, Tuesday, Tuesday. 5. Chronic kidney disease/mineral bone disease. Continue current dose of Renvela 800 mg by mouth with meals.
[2019-09-16 09:30] LABS: ALBUMIN 2.3 GM/DL (3.2-5.2); BILIRUBIN,TOTAL 0.3 MG/DL (0.2-1.0); CALCIUM LEVEL 8.8 MG/DL (8.8-10.2); CREATININE FOR GFR 10.9 MG/DL (0.70-1.30); GLOMERULAR FILTRATION RATE 5.9 (>42); POTASSIUM SERUM 3.3 MEQ/L (3.5-5.1); TOTAL PROTEIN 5.3 GM/DL (6.4-8.2)
[2019-09-16 09:35] LABS: MAGNESIUM LEVEL 1.7 MG/DL (1.8-2.4)
[2019-09-16 10:00] VITALS: BP 91/47
[2019-09-16] MEDS ORDERED: POTASSIUM CHLORIDE 10 MEQ SR TABLET PO ONE (10:00)
[2019-09-16 10:31] LABS: CK-MB VALUE MASS 1.3 NG/ML (<3.6); MB/CK RELATIVE INDEX 1.51 (< OR =4); TROPONIN I 0.04 NG/ML (< 0.10)
[2019-09-16] MEDS ORDERED: MAG SULF 1GM/100ML (MAG RUN) 1 GM in IV 1 EA IV ONE (11:00)
[2019-09-16 11:44] LABS: PERCENT SATURATION 26.6 % (19.7-50.0)
--- NOTE | 2019-09-16 13:08 | IPNPDOC ---
Text Note Date of Service The patient was seen on 09/16/19. NOTE Subjective: Patient seen and examined at bedside. No acute overnight events reported. Patient feels somewhat better today, but still complaints of left toe and right foot pain. Objective: General: NAD, lying comfortably in bed HEENT: NC/AT Lungs": CTA B/L Heart; +S1S2, RRR Abd: soft, NT, +BS Ext: right foot bandages in place, s/p left hallux amputation, bandages in place A/P: 79 yo male with PMHx of RCC/s/p b/l nephrectomy/ESRD on peritoneal dialysis, and peripheral vascular disease presented with gangrenous left big toe s/p left first toe Ray amputation POD 1; pt received peritoneal dialysis today; PT/OT ordered 1. Left first toe infection s/p Ray amputation, POD# 2. Pt reported pain in right big toe and left foot. Vascular surgery following; recommended to offload the left foot as much as possible. Vascular surgery plan to obtain IPOS forefoot offload postop shoe to keep pressure off the incision when pt ambulates. PT/OT, and activity per PT/OT. Pt now on morphine for pain. 2. Peripheral Vascular disease. Vascular surgery following. Resume home med atorvastatin and plavix 3. ESRD, on chronic peritoneal dialysis at home. Nephrology following. Pt received peritoneal dialysis inpt with 2 exchanges 09/14/2019 and 1 exchange 09/15/2019. Renal diet. Cont home med sevelamer4. 4. Chronic CAD. Cont home med atorvastatin 5. GERD. Cont home med Omeprazole 6. 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 Anemia stable, cont to follow CBC 7. Hypotension. MAP 65 this morning. It is noted that pt's blood pressure has been generally on the low side. Continue vital signs; consider midodrine PRN 8. hypokalemia/NSVT - keep K>4, Mag>2, continue telemetry monitoring DVT PROPHYLAXIS: as per surgery - post-op GI prophylaxis: Omeprazole Dispo: Left big toe RAY amputation POD 2. Resume home med. Pending PT/OT eval; extensive discussion with his fiance who is adamant that he should never receive any opioid medications VS,Fishbone, I+O VS, Fishbone, I+O Laboratory Tests 09/16/19 08:25 Vital Signs Date Time Temp Pulse Resp B/P (MAP) Pulse Ox O2 Delivery O2 Flow Rate FiO2 09/16/19 11:02 16 09/16/19 10:00 98.5 77 91/47 (62) 98 Room Air I&O- Last 24 Hours up to 6 AM 09/16/19 06:00 Intake Total 61735 ml Output Total 89938 ml Balance -1850 ml DUANE LIVE MD Sep 16, 2019 13:08
[2019-09-16] MEDS: DARBEPOETIN 200MCG/0.4ML *NON-DIALYSIS* SYRINGE (J0881 PER 1MCG) SC SCH (13:49)
[2019-09-16 14:00] VITALS: BP 115/56
[2019-09-16] MEDS ORDERED: MORPHINE 2 MG/ML 1ML VIAL (J2270) IV PRN ×2 (17:00→23:15)
[2019-09-16 18:00] VITALS: BP 116/56
--- NOTE | 2019-09-16 18:46 | IPNPDOC ---
Date Seen The patient was seen on 09/16/19. Progress Note Patient seen and examined postoperative day 2 status post left first ray amputation. Incision is clean dry and intact and sutures are intact. So far, no significant drainage, no erythema, no significant swelling, and the skin edges thus far appear viable. The patient's perfusion is tenuous. We have discussed at length the possibility of further amputation if he does not heal this incision. He is going to be very important that the patient offload the incision for the next 2-4 weeks until it is completely healed. We will work on getting an IPOS forefoot offload shoe to try to help him to keep pressure off the amputation site when transferring from his chair to the bathroom at home. I'm afraid that any pressure at all might cause this to break down. All of it is very tenuous. He and I discussed this today, and we will discuss options for obtaining the shoe through social work tomorrow, and further recommendations to follow depending on options. Otherwise, the patient is doing well. Pain is better controlled. And he says his left foot hurts less than before the surgery. We'll please to hear this. He still has significant pain in the right toe, and I claim this today, and redressed it with a foam dressing. No significant changes noted on the right first toe. I've asked the patient to continue elevating his lower extremities, as his swelling is significantly improved today. We appreciate nephrology helping us with his dialysis, and we appreciate the hospitalist excellent care of this patient. VS, I&O, 24H, Fishbone Vital Signs/I&O Vital Signs Date Time Temp Pulse Resp B/P (MAP) Pulse Ox O2 Delivery O2 Flow Rate FiO2 09/16/19 14:00 97.5 75 14 115/56 (75) 97 Room Air I&O- Last 24 Hours up to 6 AM 09/16/19 05:59 Intake Total 46557 ml Output Total 14293 ml Balance -1850 ml Laboratory Data 24H LABS Laboratory Tests 2 09/16/19 08:25: Immature Granulocyte % (Auto) 0.3, Neutrophils (%) (Auto) 51.4, Lymphocytes (%) (Auto) 26.9, Monocytes (%) (Auto) 8.8H, Eosinophils (%) (Auto) 12.3H, Basophils (%) (Auto) 0.3, Neutrophils # (Auto) 3.6, Lymphocytes # (Auto) 1.9, Monocytes # (Auto) 0.6, Eosinophils # (Auto) 0.9H, Basophils # (Auto) 0.0, Nucleated Red Blood Cells % (auto) 0.0, Anion Gap 10, Glomerular Filtration Rate 5.9L, Calcium Level 8.8, Magnesium Level 1.7L, Iron Level 41L, Total Iron Binding Capacity 154L, Transferrin % Saturation 26.6, Ferritin 1590H, Total Bilirubin 0.3, Aspartate Amino Transf (AST/SGOT) 11, Alanine Aminotransferase (ALT/SGPT) 11L, Alkaline Phosphatase 75, Total Creatine Kinase 86, Creatine Kinase MB 1.3, Creatine Kinase MB Relative Index 1.51, Troponin I 0.04, Total Protein 5.3L, A lbumin 2.3L, Albumin/Globulin Ratio 0.8 CBC/BMP Laboratory Tests 09/16/19 08:25 ELLA STEPHENSON MD Sep 16, 2019 18:45
--- NOTE | 2019-09-16 19:09 | ECGEPIP ---
[facility] Test Date: 2019-09-16 Pat Name: CASSIDY VARGHESE Department: Room: [place] [address] Gender: Male Fitter Type Bar And Segment: ELLY : 1940 Requested By: DUANE Little Order Number: [id number] Reading MD: Kendrick Coley Measurements Intervals [place] Rate: 76 P: 221 UT: 152 QRS: -41 QRSD: 120 T: 86 QT: 361 QTc: 407 Interpretive Statements ECTOPIC ATRIAL RHYTHM Left axis deviation MODERATE INTRAVENTRICULAR CONDUCTION DELAY NONSPECIFIC ST & T-WAVE ABNORMALITY Inferior Q waves of uncertain significance Possible prior anteroseptal infarct Similar to tracing done 07-26-19 Electronically Signed on 09-16-2019 19:08:54 EDT by Kendrick Coley
[2019-09-16] MEDS: ATORVASTATIN 20 MG TAB PO SCH (21:33)
[2019-09-16 22:00] VITALS: BP 118/59
[2019-09-17] VITALS (7 sets, daily range): BP systolic 93–121; BP diastolic 42–54
[2019-09-17] MEDS: traMADol 50 MG TAB PO PRN ×2 (06:14→18:00)
[2019-09-17 06:23] LABS: BASO % 0.5 % (0.0-1.0); EOS # 1.1 10^3/uL (0.0-0.5); EOS % 12.7 % (0.0-3.0); HEMATOCRIT 28.9 % (42.0-52.0); HEMOGLOBIN 9.9 g/dl (13.5-17.5); LYMPH # 2.5 10^3/uL (1.5-5.0); LYMPH % 28.8 % (24.0-44.0); MEAN CORPUSCULAR HEMOGLOBIN 32.7 pg (27.0-33.0); MEAN CORPUSCULAR HGB CONC 34.3 g/dl (32.0-36.5); MEAN CORPUSCULAR VOLUME 95.4 fl (80.0-96.0); MONO # 0.7 10^3/uL (0.0-0.8); MONO % 8.1 % (0.0-5.0); NEUTROPHILS # 4.4 10^3/uL (1.5-8.5); NEUTROPHILS % 49.8 % (36.0-66.0); PLATELET COUNT, AUTOMATED 250 10^3/uL (150-450); RED BLOOD COUNT 3.03 10^6/uL (4.30-6.10); WHITE BLOOD COUNT 8.8 10^3/uL (4.0-10.0)
[2019-09-17 06:50] LABS: CALCIUM LEVEL 9.4 MG/DL (8.8-10.2); CREATININE FOR GFR 10.9 MG/DL (0.70-1.30); GLOMERULAR FILTRATION RATE 5.9 (>42); POTASSIUM SERUM 4.2 MEQ/L (3.5-5.1)
[2019-09-17] MEDS: TIOTROPIUM INHALER/CAPSULE (SPIRIVA) INH SCH (07:30)
[2019-09-17] MEDS: ALBUTEROL 90 MCG/ACT 8GM HFA INHALER INH PRN (07:32)
--- NOTE | 2019-09-17 08:19 | IPN ---
DATE: 09/16/2019 SUBJECTIVE: The patient was seen and examined at the bedside today morning. He reports that pain is better optimized today. However, he is slightly drowsy because of the opioid pain medications today. He denies any problems with the peritoneal dialysis. He continues to be a negative fluid balance with the peritoneal dialysis. He denies any other active complaints apart from the pain. OBJECTIVE: Vital Signs: Temperature is 98.8 degrees Fahrenheit, blood pressure 116/56, pulse is 81, respiratory rate of 16, saturating 97% on room air. Intake and Output. There is no urine output recorded. He is -340 mL fluid balance according to peritoneal dialysis. Bed scale weight is not available. PHYSICAL EXAMINATION: General: The patient is awake, alert, oriented times two, laying in bed, slightly drowsy. Head and Neck Exam: Extraocular muscles intact. Pupils equally round and reactive to light. Mucous membranes are slightly dry. Neck is supple. There is no jugular venous distention (JVD). Cardiovascular: S1, S2. Regular rate. No edema of the bilateral extremities. Respiratory: Chest is clear to auscultation bilaterally. Bilateral equal air entry. No rales or rhonchi. Abdomen: Soft. Positive bowel sounds. Nontender. No organomegaly. Musculoskeletal: No clubbing or cyanosis. Pulses are 2+. ORTHO TECH: No focal deficit. Power is 5/5 in bilateral upper extremities. LAB REVIEW: CBC showed a WBC of 7.1, hemoglobin 9.2 and platelets are 224. BMP showed sodium 135, potassium 3.3, chloride 96, bicarb 29, BUN 37, creatinine 10.9, calcium is 8.8, magnesium 1.7. Iron level 41, TIBC is 154, transferrin saturation is 26.6, and ferritin is 1590. CURRENT INPATIENT MEDICATIONS: The patient's medications were all reviewed by myself. I have decreased the morphine dose to 2 mg IV every 6 hours. No other significant change in the medications today as compared with yesterday. He was also started on Aranesp 200 mcg subcutaneous daily because of dropping hemoglobin. ASSESSMENT/PLAN: 1. End-stage renal disease. The patient is currently on peritoneal dialysis. Volume status is better. I have changed the peritoneal dialysis to all exchanges of 1.5%. 2. Pain in the left lower extremity. Morphine frequency has been decreased to 2 mg IV every 6 hours as needed for pain. 3. Anemia in end-stage renal disease. Iron levels are adequate. Hemoglobin dropped. He has been started on Aranesp today morning. 4. Peripheral vascular disease, status post left big toe amputation. The patient is being seen by vascular surgery. Pain is being optimized with tramadol and morphine/ 5. Hypokalemia. The patient had a few beats of ventricular tachycardia. Potassium level is low. He was given a dose of potassium chloride 40 mEq and he continues to be on potassium chloride 10 mEq by mouth twice a day. 6. Chronic kidney disease mineral bone disease. Continue current dose of Renvela for hyperphosphatemia. 7. Secondary hyperparathyroidism. Continue current dose of Sensipar 60 mg by mouth Tuesday, Tuesday, Tuesday.
[2019-09-17] MEDS: (RENVELA) SEVELAMER **CARBONate** 800 MG TAB PO SCH ×5 (08:39→17:34)
[2019-09-17] MEDS: CINACALCET 30 MG TAB (SENSIPAR) PO SCH (08:41)
[2019-09-17] MEDS: MULTIVITAMINS/MINERALS THERAP 1 TAB PO SCH (08:41)
[2019-09-17] MEDS: HEPARIN SOD (PORCINE) 5000UNITS/ML VIAL (J1644 PER 1000UNITS) SQ SCH ×2 (08:41→16:00)
[2019-09-17] MEDS: CLOPIDOGREL 75 MG TAB PO SCH (08:41)
[2019-09-17] MEDS: SENOKOT S TAB PO SCH ×2 (08:41→18:38)
[2019-09-17] MEDS: POTASSIUM CHLORIDE 10 MEQ SR TABLET PO SCH ×2 (08:41→22:39)
[2019-09-17] MEDS: MIRALAX *UNIT DOSE* 17GM PACKET PO SCH (09:00)
[2019-09-17] MEDS ORDERED: KETOROLAC 30 MG/ML 1ML VIAL IV ONE (11:00)
--- NOTE | 2019-09-17 15:00 | IPNPDOC ---
Subjective Date Seen The patient was seen on 09/17/19. Subjective Chief Complaint/HPI Pt is examined at bedside. He reported 8/10 pain in bilateral big toes. Denies any fever, chills, chest pain, or dyspnea. He reported that he has not had BM since surgery and denies having flatulence; denies nausea or vomiting. It is noted that pt has not agreed to work with PT/OT yet General: Denies: Chills Constitutional: Denies: Chills Pulmonary: Denies: Dyspnea, Cough Cardiovascular: Denies: Chest Pain, Palpitations Gastrointestinal: Reports: Constipation; Denies: Nausea, Vomiting, Abdominal Pain, Diarrhea Musculoskeletal: Reports: Foot Pain (b/l big toe pain) Objective Physical Examination General Exam: Positive: Alert, Cooperative, No Acute Distress Eye Exam: Positive: Conjunctiva & lids normal; Negative: Sclera icteric ENT Exam: Positive: Atraumatic, Mucous membr. moist/pink Neck Exam: Positive: Supple Chest Exam: Positive: Rhonchi (mod b/l), Diminished; Negative: Wheezing Heart Exam: Positive: Rate Normal, Regular Rhythm, Normal S1, Normal S2; Negative: Murmurs Abdomen Exam: Positive: BS Hypoactive, Soft; Negative: Tenderness Extremity Exam: Positive: Normal pulses, Other (left foot wrapped and covered with kerlix and MASSIEL; foam on right great toe; right dorsalis pedis and posterior tibial pulse palpated but diminished. Very weak left dorsalis and posterior tibial pulse); Negative: Edema Skin Exam: Positive: Other skin issue (mildly cold b/l LE); Negative: Nl turgor and temperature Neuro Exam: Positive: Normal Speech, Normal Tone Psych Exam: Positive: Mental status NL, Mood NL, Memory Intact, Oriented x 3 Assessment /Plan Assessment Pt is a 79 yo male with PMH of renal cell carcinoma, status post bilateral nephrectomy, ESRD on peritoneal dialysis, and peripheral vascular disease presented with gangrenous left big toe s/p left first toe Ray amputation POD 3; pt cont to receive peritoneal dialysis; PT/OT ordered 1. Left first toe infection s/p Ray amputation, POD 3. Pt reported pain in right big toe and left big toe. Vascular surgery following; recommended to offload the left foot as much as possible. Vascular surgery plan to obtain IPOS forefoot offload postop shoe to keep pressure off the incision when pt ambulates. PT/OT, and activity per PT/OT. Pt on tramadol for pain. No BM yet, start miralax in addition to senokot S and milk of mag. 2. Peripheral Vascular disease. Vascular surgery following. Cont home med atorvastatin and plavix. Keep b/l LE elevated 3. ESRD, on chronic peritoneal dialysis at home. Nephrology following. Pt continues to received peritoneal dialysis with nephrology team inpatient. Renal diet. 4. Chronic CAD. Cont home med atorvastatin 5. GERD. Cont home med Omeprazole 6. 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 Anemia stable, cont to follow CBC 7. Hypotension. MAP 69 this morning. It is noted that pt's blood pressure has been generally on the low side. Continue vital signs; consider midodrine if needed 8. Hypokalemia, resolved. It was noted that pt had a few beats of ventricular tachycardia. K was 3.3. He was given a dose of KCl40 mEq on 09/16/2019 in addition to KCl 10meq BID. F/u BMP 9. Chronic kidney disease mineral bone disease. Continue sevelamer for hyperphosphatemia 10. Secondary hyperparathyroidism from CKD. Continue Cinacalcet 60 mg PO MWF 11. Hypomagnesemia, resolved. Mag 1.7 on 09/16/2019, received 1 Mg run. Recheck wnl DVT PROPHYLAXIS: Heparin 5000 units Q8H. CHANDLER score 7; pharmacological DVT prophylaxis GI prophylaxis: Omeprazole Dispo: Left big toe RAY amputation POD 3. Pending PT/OT clearance. senior web services developer ordered to obtain IPOS forefoot offload postop shoe Plan/VTE VTE Prophylaxis Ordered?: Yes Plan Activity: Encourage Ambulation Therapy: PT, OT Diagnostics: Repeat Labs in AM Anticipated Discharge: Home (or ARU) Disposition left big toe RAY amputation day 3 in ESRD pt with chronic peritoneal dialysis. Pending pt working with PT/OT as well as availability of IPOS forefoot offload postop shoe. Anticipate to be d/c home vs ARU VS, I&O, 24H, Fishbone Vital Signs/I&O Vital Signs Date Time Temp Pulse Resp B/P (MAP) Pulse Ox O2 Delivery O2 Flow Rate FiO2 09/17/19 11:14 81 104/50 (68) 09/17/19 10:00 98.1 17 98 Room Air I&O- Last 24 Hours up to 6 AM 6/15/20 06:00 Intake Total 9060 ml Output Total 9400 ml Balance -340 ml Laboratory Data 24H LABS Laboratory Tests 2 09/17/19 05:30: Immature Granulocyte % (Auto) 0.1, Neutrophils (%) (Auto) 49.8, Lymphocytes (%) (Auto) 28.8, Monocytes (%) (Auto) 8.1H, Eosinophils (%) (Auto) 12.7H, Basophils (%) (Auto) 0.5, Neutrophils # (Auto) 4.4, Lymphocytes # (Auto) 2.5, Monocytes # (Auto) 0.7, Eosinophils # (Auto) 1.1H, Basophils # (Auto) 0.0, Nucleated Red Blood Cells % (auto) 0.0, Anion Gap 9, Glomerular Filtration Rate 5.9L, Calcium Level 9.4, Magnesium Level 2.0 CBC/BMP Laboratory Tests 09/17/19 05:30 GME ATTESTATION GME ATTESTATION My faculty preceptor for this patient encounter was physically present during the encounter and was fully available. All aspects of the patient interview, examination, medical decision making process, and medical care plan development were reviewed and approved by the faculty preceptor. The faculty preceptor is aware and concurs with the plan as stated in the body of this note and will attest to such by his/her cosignature. ATTENDING NOTE As preceptor for this patient I was fully available. All aspects of the patient interview, examination, medical decision making process, and medical care plan development were reviewed and approved. Aware and concur with the plan as stated in the body of this note and will attest to such by my cosignature. REECE EDMONDS DO Sep 17, 2019 15:00 DUANE LIVE MD Sep 24, 2019 12:22
--- NOTE | 2019-09-17 18:02 | IPNPDOC ---
Date Seen The patient was seen on 09/17/19. Progress Note Patient seen and examined postoperative day 3 status post left first ray amputation. Incision is clean dry and intact and sutures are intact. So far, no significant drainage, no significant swelling, and the skin edges thus far appear viable but tenuous. There is mild erythema over the dorsum of the foot. The patient's perfusion is very tenuous. We have discussed at length the possibility of further amputation if he does not heal this incision. He is going to be very important that the patient offload the incision for the next 2-4 weeks until it is completely healed. Robert Pride was kind enough to supply an [employer] forefoot offload shoe to try to help him to keep pressure off the amputation site when transferring from his chair to the bathroom at home and while inpatient- and we very much appreciate this. I'm afraid that any pressure at all might cause this to break down. All of it is very high risk for poor healing. He and I discussed this today. I am worried about his progress. He s till has significant pain in the right toe and worse pain today at the amputation site. HE said getting OOB with PT made it all quite excruciating. The nurse said he is inconsistent taking his pain medication, which isn't helping things. I've asked the patient to continue elevating his lower extremities, as his swelling is a bit worse today. We appreciate nephrology helping us with his dialysis, and we appreciate the hospitalist's excellent care of this patient. Will follow. VS, I&O, 24H, Fishbone Vital Signs/I&O Vital Signs Date Time Temp Pulse Resp B/P (MAP) Pulse Ox O2 Delivery O2 Flow Rate FiO2 09/17/19 14:00 98.4 69 17 93/51 (65) 100 Room Air I&O- Last 24 Hours up to 6 AM 09/17/19 06:00 Intake Total 9060 ml Output Total 9400 ml Balance -340 ml Laboratory Data 24H LABS Laboratory Tests 2 09/17/19 05:30: Immature Granulocyte % (Auto) 0.1, Neutrophils (%) (Auto) 49.8, Lymphocytes (%) (Auto) 28.8, Monocytes (%) (Auto) 8.1H, Eosinophils (%) (Auto) 12.7H, Basophils (%) (Auto) 0.5, Neutrophils # (Auto) 4.4, Lymphocytes # (Auto) 2.5, Monocytes # (Auto) 0.7, Eosinophils # (Auto) 1.1H, Basophils # (Auto) 0.0, Nucleated Red Blood Cells % (auto) 0.0, Anion Gap 9, Glomerular Filtration Rate 5.9L, Calcium Level 9.4, Magnesium Level 2.0 CBC/BMP Laboratory Tests 09/17/19 05:30 ELLA STEPHENSON MD Sep 17, 2019 18:02
[2019-09-17] MEDS ORDERED: HEPARIN SOD (PORCINE) 5000UNITS/ML VIAL (J1644 PER 1000UNITS) PD ONE (22:00)
[2019-09-17] MEDS: ATORVASTATIN 20 MG TAB PO SCH (22:38)
[2019-09-18] MEDS: HEPARIN SOD (PORCINE) 5000UNITS/ML VIAL (J1644 PER 1000UNITS) SQ SCH ×3 (00:02→16:31)
[2019-09-18 02:00] VITALS: BP 111/51
[2019-09-18 06:00] VITALS: BP 109/49
[2019-09-18 06:08] LABS: HEMATOCRIT 28.8 % (42.0-52.0); HEMOGLOBIN 9.9 g/dl (13.5-17.5); MEAN CORPUSCULAR HEMOGLOBIN 32.8 pg (27.0-33.0); MEAN CORPUSCULAR HGB CONC 34.4 g/dl (32.0-36.5); MEAN CORPUSCULAR VOLUME 95.4 fl (80.0-96.0); PLATELET COUNT, AUTOMATED 251 10^3/uL (150-450); RED BLOOD COUNT 3.02 10^6/uL (4.30-6.10)
[2019-09-18 06:20] LABS: CALCIUM LEVEL 9.4 MG/DL (8.8-10.2); CREATININE FOR GFR 10.8 MG/DL (0.70-1.30); MAGNESIUM LEVEL 2.1 MG/DL (1.8-2.4); POTASSIUM SERUM 4.1 MEQ/L (3.5-5.1)
[2019-09-18] MEDS: TIOTROPIUM INHALER/CAPSULE (SPIRIVA) INH SCH (07:33)
[2019-09-18] MEDS: (RENVELA) SEVELAMER **CARBONate** 800 MG TAB PO SCH ×3 (08:00→19:54)
[2019-09-18] MEDS: CLOPIDOGREL 75 MG TAB PO SCH (08:47)
[2019-09-18] MEDS: SENOKOT S TAB PO SCH ×2 (08:47→22:11)
[2019-09-18] MEDS: MULTIVITAMINS/MINERALS THERAP 1 TAB PO SCH (08:47)
[2019-09-18] MEDS: MIRALAX *UNIT DOSE* 17GM PACKET PO SCH (08:47)
[2019-09-18] MEDS: POTASSIUM CHLORIDE 10 MEQ SR TABLET PO SCH ×2 (08:47→22:11)
[2019-09-18 10:00] VITALS: BP 122/65
--- NOTE | 2019-09-18 10:35 | IPN ---
DATE OF SERVICE: 09/17/2019 SUBJECTIVE: Mr. Mckinney is seen and examined this morning during bedside rounds. He continues to complain of left foot pain and refuses the morphine as he gets very sedated and lethargic when he gets it. His fiancee called last night and stated that she does not like him to get it as he gets very somnolent with it and the patient has been refusing the 2 mg of morphine. The patient would like to try other medication sources and noted other medication source such as Toradol to see if it helps with his pain. He really has no other complaints today. He is tolerating his peritoneal dialysis exchanges very well. He has no nausea, vomiting, diarrhea, fevers, chills, or any discomfort today. No other events were reported by nursing. PHYSICAL EXAMINATION: Vitals: Temperature 98.1, pulse 80, respirations 17, blood pressure 99/45 (63), pulse oximetry 98% on room air. Intake total 11,050 mL, output total 11,400 mL, with a net balance of negative 340 mL. There is no weight taken this morning. General: This is a very pleasant, 79-year-old male who does not appear in acute distress. Alert and oriented times three, appropriately answering questions. HEENT: Atraumatic, normocephalic. Pupils equal round and reactive. Dry mucous membranes. No jugular venous distention (JVD). S1, S2 sounds, regular rate and rhythm. No audible murmurs, rubs or gallops. No lower extremity edema. Respiratory: Clear to auscultate bilaterally. No audible wheezing, rhonchi or rales. Abdomen: Soft. Positive bowel sounds in all four quadrants. Peritoneal dialysis catheter in place. No erythema, no discharge, currently being used. Musculoskeletal: No lower extremity edema. Left toe amputated, dressing in place, no obvious discharge, erythema. Mild tenderness to palpation. No foul smell noted. Neurologic: No focal deficits noted. Psychiatric: Appropriate. LABORATORIES: Hematology: WBC 8.0, hemoglobin 9.9, hematocrit 28.9, platelets 250. Chemistry: Sodium 133, potassium 4.2, chloride 98, carbon dioxide 26, anion gap 9, BUN 90, creatinine 10.90, fasting glucose 79, calcium 9.4, magnesium 2.0. Pathology for his left toe amputation currently pending. MEDICATIONS: Reviewed by me. New medication is just the morphine 2 mg every 6 hours as needed for pain, which will be discontinued today as the patient refuses it for somnolence. No other new pain meds were ordered. ASSESSMENT AND PLAN: 1. End-stage renal disease on peritoneal dialysis which is tolerated very well. Volume status is optimized. Continue with all peritoneal exchanges of 1.5%. 2. Pain in the left lower extremity status post toe amputation. Per Dr. Canseco. We have discontinued his morphine for pain control as he complains of somnolence with the 2 mg. We have prescribed Toradol 50 mg times one IV to see if it has good pain control. We do understand he has end stage renal disease, but he is only dialysis so if he does have good pain control this can prescribe. Will try a one time dose and follow if he has good response. 3. Anemia with end-stage renal disease. Iron level is adequate. Continue with Aranesp. His hemoglobin this morning was 9.9, close to optimal, so will continue to monitor. No transfusion is indicated. Will continue to monitor. 4. Peripheral vascular disease, status post left big toe amputation. 5. Hypokalemia. Potassium level is resolved. Will continue with potassium chloride 10 mEq twice a day scheduled. 6. Chronic kidney disease with mineral bone disease. Continue with Renvela for hyperphosphatemia. 7. Secondary hyperparathyroidism. Continue with Sensipar 60 mg by mouth on Tuesday, Tuesday and Tuesday.
[2019-09-18] MEDS: traMADol 50 MG TAB PO PRN ×2 (11:01→22:12)
--- NOTE | 2019-09-18 12:52 | IPNPDOC ---
Text Note Date of Service The patient was seen on 09/18/19. NOTE Vascular surgery. Dr. Canseco Patient seen and examined postoperative day 4 status post left first ray amputation. Incision is clean dry and intact and sutures are intact. No significant drainage, no swelling, and the skin edges thus far appear viable but tenuous. There is mild erythema over the dorsum of the foot, this does not appear to be worse today. The patient's perfusion is very tenuous. The wound was cleaned, fluffs, dry gauze, and Kerlix applied. Coban is applied to the outside very lightly just to hold the dressing in place. Dr. Canseco has discussed at length the possibility of further amputation if he does not heal this incision. It has been discussed with the patient and his that it is going to be very important that the patient offload the incision for the next 2-4 weeks until it is completely healed. Robert Savagees was kind enough to supply an IPOS forefoot offload shoe to try to help him to keep pressure off the amputation site when transferring from his chair to the bathroom at home and while inpatient- and we very much appreciate this. Any pressure at all might cause this to break down. All of it is very high risk for poor healing. We appreciate nephrology helping us with his dialysis, and we appreciate the hospitalist's excellent care of this patient. Will follow. VS,Fishbone, I+O VS, Fishbone, I+O Laboratory Tests 09/18/19 05:34 Vital Signs Date Time Temp Pulse Resp B/P (MAP) Pulse Ox O2 Delivery O2 Flow Rate FiO2 09/18/19 11:31 16 09/18/19 10:00 98.9 83 122/65 (84) 99 Room Air I&O- Last 24 Hours up to 6 AM 09/18/19 05:59 Intake Total 53606 ml Output Total 56906 ml Balance 60 ml Puja Garcia Sep 18, 2019 12:52
--- NOTE | 2019-09-18 12:59 | IPNPDOC ---
Text Note Date of Service The patient was seen on 09/18/19. NOTE Patient seen and examined this morning. Still mild discomfort because of the toe amputation. Otherwise, no acute overnight events. PHYSICAL EXAMINATION: General: Alert and oriented times three, appropriately answering questions. HEENT: Atraumatic, normocephalic. Pupils equal round and reactive. Dry mucous membranes. No jugular venous distention (JVD). S1, S2 sounds, regular rate and rhythm. No audible murmurs, rubs or gallops. No lower extremity edema. Respiratory: Clear to auscultate bilaterally. No audible wheezing, rhonchi or rales. Abdomen: Soft. Positive bowel sounds in all four quadrants. Peritoneal dialysis catheter in place. No erythema, no discharge, currently being used. Musculoskeletal: No lower extremity edema. Left toe amputated, dressing in place, no obvious discharge, erythema. Mild tenderness to palpation. No foul smell noted. Neurologic: No focal deficits noted. Psychiatric: Appropriate. Labs reviewed Radiology reviewed Assessment and plan: Pt is a 79 yo male with PMH of renal cell carcinoma, status post bilateral nephrectomy, ESRD on peritoneal dialysis, and peripheral vascular disease presented with gangrenous left big toe s/p left first toe Ray amputation POD 4; pt cont to receive peritoneal dialysis; PT/OT ordered 1. Left first toe infection s/p Ray amputation, POD 4. Continue following v ascular surgery recommendations. PT/OT, and activity per PT/OT. Tramadol for pain. Activity as per surgery 2. Peripheral Vascular disease. Vascular surgery following. Cont home med atorvastatin and plavix. Keep b/l LE elevated 3. ESRD, on chronic peritoneal dialysis at home. Nephrology following. 4. Chronic CAD. Cont home med atorvastatin 5. GERD. Cont home med Omeprazole 6. 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 Anemia stable, cont to follow CBC 7. Hypotension. At baseline. Will continue to monitor 8. Secondary hyperparathyroidism from CKD. Continue Cinacalcet 60 mg PO MWF DVT PROPHYLAXIS: Heparin 5000 units Q8H. Dispo: Left big toe RAY amputation POD 4. Pending PT/OT clearance possible rehabilitation placement. building services supervisor ordered to obtain IPOS forefoot offload postop shoe VS,Fishbone, I+O VS, Fishbone, I+O Laboratory Tests 09/18/19 05:34 Vital Signs Date Time Temp Pulse Resp B/P (MAP) Pulse Ox O2 Delivery O2 Flow Rate FiO2 09/18/19 11:31 16 09/18/19 10:00 98.9 83 122/65 (84) 99 Room Air I&O- Last 24 Hours up to 6 AM 09/18/19 06:00 Intake Total 24121 ml Output Total 16176 ml Balance 60 ml GME ATTESTATION GME ATTESTATION My faculty preceptor for this patient encounter was physically present during the encounter and was fully available. All aspects of the patient interview, examination, medical decision making process, and medical care plan development were reviewed and approved by the faculty preceptor. The faculty preceptor is aware and concurs with the plan as stated in the body of this note and will attest to such by his/her cosignature. ATTENDING NOTE PT WAS SEEN AND EXAMINED BY ME, AGREE WITH THE ABOVE ASSESSMENT AND PLAN. NAVI HAYES MD Sep 18, 2019 12:54
[2019-09-18 14:00] VITALS: BP 124/66
[2019-09-18 16:00] VITALS: BP 157/76
--- NOTE | 2019-09-18 16:44 | IPN ---
DATE OF SERVICE: 09/18/2019 SUBJECTIVE: The patient was seen and examined at the bedside today morning. He was slightly drowsy because of pain medications. He was given a dose of Toradol yesterday and he reports it helps with his pain. He denies any problems with the peritoneal dialysis. OBJECTIVE: Vital Signs: Temperature is 98.9 degrees Fahrenheit, blood pressure 122/65, pulse is 83, respiratory rate of 18, saturating 99% on room air. Intake/Output: Total output with peritoneal dialysis so far since overnight is 2.4 liters. Weight in the bed scale is not available. PHYSICAL EXAMINATION: General: The patient is slightly drowsy, oriented times two, laying in bed. Head/Neck Exam: Extraocular muscles intact. Pupils equally round and reactive to light. Mucous membranes are moist. Neck is supple. There is no jugular venous distention (JVD). Cardiovascular: S1, S2, regular rate. No edema of the bilateral lower extremities. Respiratory: Chest is clear to auscultation bilaterally. Bilateral equal air entry. No rales or rhonchi. Abdomen: Soft. Positive bowel sounds. Peritoneal dialysis catheter exit site is clean. Musculoskeletal: The patient has dressing in bilateral lower extremities. He has tenderness in bilateral feet. Central Nervous System (INFUSION THERAPY NURSE): He is slightly drowsy. Otherwise, he follows commands and moves extremities. LABORATORY REVIEW: Complete blood count (CBC) showed a WBC of 10, hemoglobin 9.9. Platelets are 251. Basic metabolic panel (BMP) showed sodium 132, potassium 4.1, chloride 95, bicarbonate 27, BUN 40, creatinine is 10.8, calcium 9.4, magnesium 2.1. CURRENT INPATIENT MEDICATIONS: The patient's medications were all reviewed by myself . Senokot tablet has been changed to one tablet twice a day. No other significant change in the medications today as compared with yesterday. ASSESSMENT/PLAN: 1. End-stage renal disease. Continue current peritoneal dialysis regimen of five manual exchanges all 1.5 liters. Volume status is optimal. 2. Anemia in end-stage renal disease. Continue current dose of Aranesp. Hemoglobin level is stable and improving. 3. Peripheral vascular disease status post left big toe amputation. Pain is being optimized with tramadol only. Morphine was started but the patient becomes drowsy with the opioids. 4. Chronic kidney disease, mineral bone disease. Continue current dose of Renvela with meals and continue Sensipar for secondary hyperparathyroidism.
[2019-09-18 22:00] VITALS: BP 122/55
[2019-09-18] MEDS: ATORVASTATIN 20 MG TAB PO SCH (22:11)
[2019-09-19 02:00] VITALS: BP 117/60
[2019-09-19 05:56] LABS: HEMATOCRIT 29.7 % (42.0-52.0); MEAN CORPUSCULAR HEMOGLOBIN 32.3 pg (27.0-33.0); MEAN CORPUSCULAR HGB CONC 33.7 g/dl (32.0-36.5); MEAN CORPUSCULAR VOLUME 95.8 fl (80.0-96.0); PLATELET COUNT, AUTOMATED 249 10^3/uL (150-450); WHITE BLOOD COUNT 10.4 10^3/uL (4.0-10.0)
[2019-09-19 06:00] VITALS: BP 110/58
[2019-09-19 06:18] LABS: CALCIUM LEVEL 9.5 MG/DL (8.8-10.2); CREATININE FOR GFR 11.3 MG/DL (0.70-1.30); GLOMERULAR FILTRATION RATE 5.7 (>42); POTASSIUM SERUM 3.9 MEQ/L (3.5-5.1)
[2019-09-19] MEDS: TIOTROPIUM INHALER/CAPSULE (SPIRIVA) INH SCH (08:36)
[2019-09-19] MEDS: MIRALAX *UNIT DOSE* 17GM PACKET PO SCH (09:00)
[2019-09-19] MEDS: CINACALCET 30 MG TAB (SENSIPAR) PO SCH (09:37)
[2019-09-19] MEDS: HEPARIN SOD (PORCINE) 5000UNITS/ML VIAL (J1644 PER 1000UNITS) SQ SCH ×3 (09:37→17:19)
[2019-09-19] MEDS: SENOKOT S TAB PO SCH ×2 (09:37→21:00)
[2019-09-19] MEDS: POTASSIUM CHLORIDE 10 MEQ SR TABLET PO SCH ×2 (09:37→22:03)
[2019-09-19] MEDS: CLOPIDOGREL 75 MG TAB PO SCH (09:38)
[2019-09-19] MEDS: (RENVELA) SEVELAMER **CARBONate** 800 MG TAB PO SCH ×3 (09:38→17:19)
[2019-09-19] MEDS: MULTIVITAMINS/MINERALS THERAP 1 TAB PO SCH (09:38)
[2019-09-19] MEDS: traMADol 50 MG TAB PO PRN ×2 (09:44→22:03)
[2019-09-19 10:00] VITALS: BP 120/62
--- NOTE | 2019-09-19 10:37 | IPNPDOC ---
Text Note Date of Service The patient was seen on 09/19/19. NOTE Vascular surgery. Dr. Canseco Patient seen and examined postoperative day 5 status post left first ray amputation. Incision is clean dry and intact and sutures are intact. No significant drainage, no swelling, and the skin edges thus far appear to be healing. The patient's perfusion remains tenuous. The wound was cleaned, fluffs, dry gauze, and Kerlix applied. Coban is applied to the outside very lightly just to hold the dressing in place. Dr. Canseco has discussed at length the possibility of further amputation if he does not heal this incision. It has been discussed with the patient and his that it is going to be very important that the patient offload the incision for the next 2-4 weeks until it is completely healed. Robert Pride was kind enough to supply an [employer] forefoot offload shoe to try to help him to keep pressure off the amputation site when transferring from his chair to the bathroom at home and while inpatient- and we very much appreciate this. Any pressure at all might cause this to break down. All of it is very high risk for poor healing. We appreciate nephrology helping us with his dialysis, and we appreciate the hospitalist's excellent care of this patient. Will follow. VS,Fishbone, I+O VS, Fishbone, I+O Laboratory Tests 09/19/19 05:29 Vital Signs Date Time Temp Pulse Resp B/P (MAP) Pulse Ox O2 Delivery O2 Flow Rate FiO2 09/19/19 10:21 16 09/19/19 06:00 98.7 84 110/58 (75) 99 Room Air I&O- Last 24 Hours up to 6 AM 09/19/19 05:59 Intake Total 8340 ml Output Total 9000 ml Balance -660 ml Puja Garcia Sep 19, 2019 10:37
--- NOTE | 2019-09-19 11:46 | IPNPDOC ---
Text Note Date of Service The patient was seen on 09/19/19. NOTE Patient seen and examined this morning. Still mild discomfort because of the toe amputation. Otherwise, no acute overnight events. PHYSICAL EXAMINATION: General: Alert and oriented times three, appropriately answering questions. HEENT: Atraumatic, normocephalic. Pupils equal round and reactive. Dry mucous membranes. No jugular venous distention (JVD). S1, S2 sounds, regular rate and rhythm. No audible murmurs, rubs or gallops. No lower extremity edema. Respiratory: Clear to auscultate bilaterally. No audible wheezing, rhonchi or rales. Abdomen: Soft. Positive bowel sounds in all four quadrants. Peritoneal dialysis catheter in place. No erythema, no discharge, currently being used. Musculoskeletal: No lower extremity edema. Left toe amputated, dressing in place, no obvious discharge, erythema. Mild tenderness to palpation. No foul smell noted. Neurologic: No focal deficits noted. Psychiatric: Appropriate. Labs reviewed Radiology reviewed Assessment and plan: Pt is a 79 yo male with PMH of renal cell carcinoma, status post bilateral nephrectomy, ESRD on peritoneal dialysis, and peripheral vascular disease presented with gangrenous left big toe s/p left first toe Ray amputation POD 4; pt cont to receive peritoneal dialysis; PT/OT ordered 1. Left first toe infection s/p Ray amputation, POD 5. Continue following v ascular surgery recommendations. PT/OT, and activity per PT/OT. Tramadol for pain. Activity as per surgery 2. Peripheral Vascular disease. Vascular surgery following. Cont home med atorvastatin and plavix. Keep b/l LE elevated 3. ESRD, on chronic peritoneal dialysis at home. Nephrology following. 4. Chronic CAD. Cont home med atorvastatin 5. GERD. Cont home med Omeprazole 6. 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 Anemia stable, cont to follow CBC 7. Hypotension. At baseline. Will continue to monitor 8. Secondary hyperparathyroidism from CKD. Continue Cinacalcet 60 mg PO MWF DVT PROPHYLAXIS: Heparin 5000 units Q8H. Dispo: Left big toe RAY amputation POD 5. Pending PT/OT clearance possible rehabilitation placement. director of community services ordered to obtain IPOS forefoot offload postop shoe VS,Fishbone, I+O VS, Fishbone, I+O Laboratory Tests 09/19/19 05:29 Vital Signs Date Time Temp Pulse Resp B/P (MAP) Pulse Ox O2 Delivery O2 Flow Rate FiO2 09/19/19 10:21 16 09/19/19 06:00 98.7 84 110/58 (75) 99 Room Air I&O- Last 24 Hours up to 6 AM 09/19/19 06:00 Intake Total 8340 ml Output Total 9000 ml Balance -660 ml NAVI HAYES MD Sep 19, 2019 11:46
[2019-09-19 14:00] VITALS: BP 113/65
--- NOTE | 2019-09-19 15:46 | IPN ---
DATE OF SERVICE: 09/19/2019 SUBJECTIVE: The patient was seen and examined the bedside today morning. He is afebrile, hemodynamically stable. He reports that his pain is better today. He denies any complaints with peritoneal dialysis. OBJECTIVE: Vital Signs: Temperature is 98.7 degrees Fahrenheit, blood pressure 110/58, pulse is 84, respiratory of 17, saturating 99% on room air. Intake/Output: Output for the peritoneal dialysis so far is 4.4 liters. Weight in the bed scale is not available. PHYSICAL EXAMINATION: General: The patient is awake, alert, oriented times two, laying in bed, in no apparent distress. Head/Neck Exam: Extraocular muscles intact. Pupils equally round and reactive to light. Mucous membranes are moist. Neck is supple. There is no jugular venous distention (JVD). Cardiovascular: S1, S2, regular rate. No edema of the bilateral lower extremities. Respiratory: Chest is clear to auscultation bilaterally. Bilateral equal air entry. No rales or rhonchi. Abdomen: Soft, positive bowel sounds. Peritoneal dialysis catheter's exit site is clean. Musculoskeletal: The patient has dressing on the bilateral lower extremities. Central Nervous System (SANDER HAND): No focal deficit. Power is 5/5 in bilateral upper extremities. LAB REVIEW: Complete blood count (CBC) showed WBC 10.4, hemoglobin is 10, platelets are 149. Basic metabolic panel (BMP) showed sodium 133, potassium 3.9, chloride 96, bicarbonate 30, BUN 42, creatinine is 11.3. CURRENT INPATIENT MEDICATIONS: The patient's medications were all reviewed by myself. There is no significant change in the medications today as compared with yesterday. ASSESSMENT/PLAN: 1. End-stage renal disease. The patient is tolerating the peritoneal dialysis at this time. Continue current five manual exchanges of all 1.5% and 1.5 liters. 2. Anemia in end-stage renal disease. Hemoglobin level is optimal. Continue current dose of Aranesp. 3. Peripheral vascular disease status post left big toe amputation. The patient is being seen by vascular surgery. Pain is optimized with tramadol. 4. Secondary hyperparathyroidism. Continue current dose of Sensipar.
[2019-09-19 18:00] VITALS: BP 112/58
[2019-09-19 22:00] VITALS: BP 120/61
[2019-09-19] MEDS: ATORVASTATIN 20 MG TAB PO SCH (22:03)
[2019-09-20] MEDS: HEPARIN SOD (PORCINE) 5000UNITS/ML VIAL (J1644 PER 1000UNITS) SQ SCH ×3 (00:01→16:00)
[2019-09-20 05:58] LABS: HEMATOCRIT 29.7 % (42.0-52.0); MEAN CORPUSCULAR HEMOGLOBIN 32.6 pg (27.0-33.0); MEAN CORPUSCULAR HGB CONC 33.7 g/dl (32.0-36.5); MEAN CORPUSCULAR VOLUME 96.7 fl (80.0-96.0); PLATELET COUNT, AUTOMATED 241 10^3/uL (150-450); RED BLOOD COUNT 3.07 10^6/uL (4.30-6.10); WHITE BLOOD COUNT 8.9 10^3/uL (4.0-10.0)
[2019-09-20 06:00] VITALS: BP_SYST 116; BP_SYST 91; BP_DIAS 54; BP_DIAS 62
[2019-09-20] MEDS: traMADol 50 MG TAB PO PRN ×2 (06:06→22:36)
[2019-09-20 06:21] LABS: CALCIUM LEVEL 8.7 MG/DL (8.8-10.2); CREATININE FOR GFR 11.5 MG/DL (0.70-1.30); GLOMERULAR FILTRATION RATE 5.6 (>42); POTASSIUM SERUM 4.1 MEQ/L (3.5-5.1)
[2019-09-20] MEDS: TIOTROPIUM INHALER/CAPSULE (SPIRIVA) INH SCH (07:40)
[2019-09-20] MEDS: (RENVELA) SEVELAMER **CARBONate** 800 MG TAB PO SCH ×3 (08:29→18:24)
[2019-09-20] MEDS: CLOPIDOGREL 75 MG TAB PO SCH (08:29)
[2019-09-20] MEDS: SENOKOT S TAB PO SCH ×2 (08:29→22:35)
[2019-09-20] MEDS: POTASSIUM CHLORIDE 10 MEQ SR TABLET PO SCH ×2 (08:29→22:35)
[2019-09-20] MEDS: MULTIVITAMINS/MINERALS THERAP 1 TAB PO SCH (08:29)
[2019-09-20] MEDS: MIRALAX *UNIT DOSE* 17GM PACKET PO SCH (08:30)
[2019-09-20 10:00] VITALS: BP 107/61
[2019-09-20] MEDS ORDERED: KETOROLAC 30 MG/ML 1ML VIAL IV ONE (10:45)
--- NOTE | 2019-09-20 12:58 | IPNPDOC ---
Date Seen The patient was seen on 09/20/19. Progress Note Patient seen and examined. Doing well today. He is up in a chair. He says his right foot hurts a lot when he tries to take even a few steps with his left postop forefoot offload shoe. He said his left foot really doesn't hurt much at all right now. On exam the incision is clean dry and intact. There are a few of the skin edges look a little dark, but so far no drainage, no signs at the incision is not starting to heal. The dorsum of the foot is no longer erythematous. There is some edema, so that elevated his legs up on some pillows. The incision was thoroughly cleaned and redressed. Patient tolerated this well. I asked the patient and the nurse what his discharge plan was, and he says he didn't know, but she said it was initially discussed about going to [facility], but the patient's significant other was adamant she does not want him to go to a area but instead wants him to come home. I spoke with her at length last night. She had a numerous complaints about his pain control, his length of stay, etc. I discussed with her that pain control is important postprocedure, and that despite her contention that he had adequate pain control preop at home, I disagreed. Every time I saw him in clinic or during procedures he was nearly constantly complaining of severe 10 at 10 foot pain. He said he was in 24 hour a day 7 days a week pain prior to surgery. Postoperatively, he continued to have this type of pain and therefore we provided analgesia as was appropriate. I assured her that he was fine and stable throughout the process of receiving analgesia, and that it was necessary to treat his pain postop. She still was not convinced. Her main complaint is that he does not talk to her when he she calls him on the phone, but I assured her he talks to me at length every time I see him in the room. He is not obtunded and he is not delirious. Despite my best efforts to encourage her to let him go to acute rehabilitation, it seems that she is still adamant for him to come home. I think she underestimates how tenuous his foot incision is, and how much pain he is still in on his right fo ot. I am worried that if he goes home, it may be challenging to perfectly offload the left foot and provide analgesia adequate for his pain. We will see how he does and leave his discharge in the capable hands of our hospitalist. From my standpoint, I am glad for the opportunity to continue to carefully watch his foot and try my best to get his tenuous left first toe ray amputation to heal. Hopefully, we will be able to provide enough reassurance to the patient's significant other to help her see that we are all working diligently as a team for his best possible outcome. We appreciate the opportunity to participate in the care of this patient. VS, I&O, 24H, Fishbone Vital Signs/I&O Vital Signs Date Time Temp Pulse Resp B/P (MAP) Pulse Ox O2 Delivery O2 Flow Rate FiO2 09/20/19 10:00 97.5 76 20 107/61 (76) 94 Room Air I&O- Last 24 Hours up to 6 AM 09/20/19 06:00 Intake Total 83646 ml Output Total 93007 ml Balance 590 ml Laboratory Data 24H LABS Laboratory Tests 2 09/20/19 05:30: Nucleated Red Blood Cells % (auto) 0.0, Anion Gap 10, Glomerular Filtration Rate 5.6L, Calcium Level 8.7L CBC/BMP Laboratory Tests 09/20/19 05:30 ELLA STEPHENSON MD Sep 20, 2019 12:58
[2019-09-20 14:00] VITALS: BP 107/57
--- NOTE | 2019-09-20 15:20 | IPN ---
DATE: 09/17/2019 SUBJECTIVE: The patient was seen and examined at the bedside today morning. He was getting his peritoneal dialysis (PD) fluid exchange when I saw him. He still complains of pain in the lower extremities. There are no issues with peritoneal dialysis. He is getting anywhere between 200-300 mL of ultrafiltration with each peritoneal dialysis exchange OBJECTIVE: Vital signs: Temperature is 98.9 degrees Fahrenheit, blood pressure 116/61, pulse is 80, respiratory rate of 18, saturating 94% on room air. Intake and output: There is no urine output recorded. Weight in the bed scale is 73.7. PHYSICAL EXAMINATION: GENERAL: The patient is awake, alert, oriented times three, lying in the sofa. Mild painful distress. HEAD AND NECK: Extraocular muscles intact. Pupils equally round and reactive to light. Mucous membranes are moist. Neck is supple. There is no jugular venous distention (JVD). CARDIOVASCULAR: S1, S2, regular rate. No edema of the bilateral lower extremities. RESPIRATORY: Chest is clear to auscultation bilaterally. Bilateral equal air entry. No rales or rhonchi. ABDOMEN: Soft. Positive bowel sounds. Nontender. MUSCULOSKELETAL: The patient has a dressing on bilateral feet, which are tender. CENTRAL NERVOUS SYSTEM: No focal deficit. Power is 5/5 in bilateral upper extremities. LABORATORY REVIEW: CBC showed WBC 8.9, hemoglobin 10, platelets of 241. BMP showed sodium 137, potassium 4.1, chloride 98, bicarbonate 29, BUN 43, creatinine is 11.5, calcium is 8.7. CURRENT INPATIENT MEDICATIONS. The patient's medications were all reviewed by me. There is no significant change in the medications today as compared with yesterday. I gave him a dose of IV Toradol 15 mg for pain in the lower extremities. ASSESSMENT AND PLAN: 1. End-stage renal disease. Peritoneal dialysis dependence. Continue current regimen of five manual exchanges, all 1.5%. Volume status is optimal. 2. Anemia and end-stage renal disease. Hemoglobin is optimal. Continue current dose of Aranesp 200 mcg subcutaneous once a week. 3. Peripheral vascular disease, status post left big toe amputation. The patient still has pain. He continues to be on tramadol. Intravenous (IV) ketorolac 15 mg was ordered today morning. 4. Secondary hyperparathyroidism. Continue current dose of Sensipar.
--- NOTE | 2019-09-20 15:22 | IPNPDOC ---
Text Note Date of Service The patient was seen on 09/20/19. NOTE Patient seen and examined this morning. no acute overnight events. PHYSICAL EXAMINATION: General: Alert and oriented times three, appropriately answering questions. HEENT: Atraumatic, normocephalic. Pupils equal round and reactive. Dry mucous membranes. No jugular venous distention (JVD). S1, S2 sounds, regular rate and rhythm. No audible murmurs, rubs or gallops. No lower extremity edema. Respiratory: Clear to auscultate bilaterally. No audible wheezing, rhonchi or rales. Abdomen: Soft. Positive bowel sounds in all four quadrants. Peritoneal dialysis catheter in place. No erythema, no discharge, currently being used. Musculoskeletal: No lower extremity edema. Left toe amputated, dressing in place, no obvious discharge, erythema. Mild tenderness to palpation. No foul smell noted. Neurologic: No focal deficits noted. Psychiatric: Appropriate. Labs reviewed Radiology reviewed Assessment and plan: Pt is a 79 yo male with PMH of renal cell carcinoma, status post bilateral nephrectomy, ESRD on peritoneal dialysis, and peripheral vascular disease presented with gangrenous left big toe s/p left first toe Ray amputation POD 6; pt cont to receive peritoneal dialysis; PT/OT ordered 1. Left first toe infection s/p Ray amputation, POD 6. Continue following vascular surgery recommendations. PT/OT, and activity per PT/OT. Tramadol for pain. Activity as per surgery 2. Peripheral Vascular disease. Vascular surgery following. Cont home med atorvastatin and plavix. Keep b/l LE elevated 3. ESRD, on chronic peritoneal dialysis at home. Nephrology following. 4. Chronic CAD. Cont home med atorvastatin 5. GERD. Cont home med Omeprazole 6. 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 Anemia stable, cont to follow CBC 7. Hypotension. At baseline. Will continue to monitor 8. Secondary hyperparathyroidism from CKD. Continue Cinacalcet 60 mg PO MWF DVT PROPHYLAXIS: Heparin 5000 units Q8H. Dispo: Left big toe RAY amputation POD 6. Pending PT/OT clearance possible rehabilitation placement. services advisor ordered to obtain IPOS forefoot offload postop shoe VS,Fishbone, I+O VS, Fishbone, I+O Laboratory Tests 09/20/19 05:30 Vital Signs Date Time Temp Pulse Resp B/P (MAP) Pulse Ox O2 Delivery O2 Flow Rate FiO2 09/20/19 10:00 97.5 76 20 107/61 (42) 94 Room Air I&O- Last 24 Hours up to 6 AM 09/20/19 06:00 Intake Total 52089 ml Output Total 34631 ml Balance 590 ml NAVI HAYES MD Sep 20, 2019 15:22
[2019-09-20 18:00] VITALS: BP 100/50
[2019-09-20 22:00] VITALS: BP 99/53
[2019-09-20] MEDS: ATORVASTATIN 20 MG TAB PO SCH (22:34)
[2019-09-21] MEDS: ALBUTEROL 90 MCG/ACT 8GM HFA INHALER INH PRN (00:20)
[2019-09-21] MEDS: HEPARIN SOD (PORCINE) 5000UNITS/ML VIAL (J1644 PER 1000UNITS) SQ SCH ×3 (00:29→16:00)
[2019-09-21] MEDS: ACETAMINOPHEN TAB 650MG DOSE (2X325MG) PO PRN (01:04)
[2019-09-21 02:00] VITALS: BP 100/55
[2019-09-21 06:00] VITALS: BP 98/57
[2019-09-21] MEDS: traMADol 50 MG TAB PO PRN ×2 (06:05→21:10)
[2019-09-21 06:08] LABS: HEMATOCRIT 30.1 % (42.0-52.0); HEMOGLOBIN 9.9 g/dl (13.5-17.5); MEAN CORPUSCULAR HGB CONC 32.9 g/dl (32.0-36.5); MEAN CORPUSCULAR VOLUME 97.4 fl (80.0-96.0); PLATELET COUNT, AUTOMATED 247 10^3/uL (150-450); RED BLOOD COUNT 3.09 10^6/uL (4.30-6.10); WHITE BLOOD COUNT 8.2 10^3/uL (4.0-10.0)
[2019-09-21 06:42] LABS: CALCIUM LEVEL 9.2 MG/DL (8.8-10.2); CREATININE FOR GFR 11.7 MG/DL (0.70-1.30); GLOMERULAR FILTRATION RATE 5.5 (>42); POTASSIUM SERUM 3.8 MEQ/L (3.5-5.1)
[2019-09-21] MEDS: TIOTROPIUM INHALER/CAPSULE (SPIRIVA) INH SCH (07:44)
--- NOTE | 2019-09-21 08:39 | IPNPDOC ---
Date Seen The patient was seen on 09/21/19. Progress Note Patient seen and examined, now one week status post left first toe ray amputation. He is doing well and his pain is well controlled today. He says he sits still having a great deal of trouble with transfers. He feels like he is putting too much pressure on his right foot, which is still very painful, while using the left forefoot offload shoe to keep pressure off of his left foot. He feels very unstable and is worried about getting from the chair to the bathroom at home. Hopefully physical therapy will help him to feel more confident as we go along. On exam, his left foot amputation incision seems to be healing well. The sutures are intact. There is no drainage or fluctuance, no induration, no erythema. At the distal most aspect of the incision near the second toe, some of the skin is dark and may eventually sloughed off. I'm hopeful that this will still heal, but so far it has remained stable. Unfortunately, this is the furthest tissue from his minimal perfusion in the foot, so it is certainly tenuous. However, so far it has remained completely stable and no signs of breakdown are noted. The incision was cleaned and dried. Dressings were applied. The patient tolerated this well. His right toe dressing was also change. The toenail and dry gangrene on the medial tip are stable with no changes noted. Note erythema, drainage, or signs of infection are present. Foam dressing was reapplied. The patient tolerated this well. We will continue to follow along while he is inpatient. It is my understanding that his significant other has refused for the patient to go to inpatient rehabilitation, and so I think the social work aspect of his discharge is still in progress. We appreciate the opportunity to participate in the care of this patient. VS, I&O, 24H, Fishbone Vital Signs/I&O Vital Signs Date Time Temp Pulse Resp B/P (MAP) Pulse Ox O2 Delivery O2 Flow Rate FiO2 09/21/19 06:35 18 09/21/19 06:00 97.9 66 98/57 (71) 94 09/20/19 18:00 Room Air I&O- Last 24 Hours up to 6 AM0 09/21/19 05:59 Intake Total 16207 ml Output Total 9900 ml Balance 820 ml Laboratory Data 24H LABS Laboratory Tests 2 09/21/19 05:38: Nucleated Red Blood Cells % (auto) 0.0, Anion Gap 9, Glomerular Filtration Rate 5.5L, Calcium Level 9.2 CBC/BMP Laboratory Tests 09/21/19 05:38 ELLA STEPHENSON MD Sep 21, 2019 08:39
[2019-09-21] MEDS: (RENVELA) SEVELAMER **CARBONate** 800 MG TAB PO SCH ×3 (09:23→17:40)
[2019-09-21] MEDS: CINACALCET 30 MG TAB (SENSIPAR) PO SCH (09:23)
[2019-09-21] MEDS: MIRALAX *UNIT DOSE* 17GM PACKET PO SCH (09:23)
[2019-09-21] MEDS: POTASSIUM CHLORIDE 10 MEQ SR TABLET PO SCH ×2 (09:24→21:10)
[2019-09-21] MEDS: SENOKOT S TAB PO SCH ×2 (09:24→21:10)
[2019-09-21] MEDS: MULTIVITAMINS/MINERALS THERAP 1 TAB PO SCH (09:24)
[2019-09-21] MEDS: CLOPIDOGREL 75 MG TAB PO SCH (09:24)
[2019-09-21 10:00] VITALS: BP 99/59
[2019-09-21 14:00] VITALS: BP 97/55
--- NOTE | 2019-09-21 14:30 | IPN ---
DATE OF SERVICE: 09/21/2019 SUBJECTIVE: The patient was seen and examined at the bedside today morning. He is afebrile, hemodynamically stable. He was getting his peritoneal dialysis (PD) exchange when I saw him. I was told by the nursing staff that the patient is not getting much ultrafiltration with the PD exchanges. The patient otherwise denies any shortness of breath or leg edema. OBJECTIVE: Vital Signs: Temperature is 97.6 degrees Fahrenheit, blood pressure 99/50, pulse is 82, respiratory rate of 17, saturating 98% on room air. Intake/Output: Urine output is not recorded. Ultrafiltration with peritoneal dialysis is only 348 mL so far since overnight. Weight in the bed scale is 75.1 kg. which is 1 kg above is weight yesterday. PHYSICAL EXAMINATION: General: The patient is awake, alert, oriented times three, laying in bed, in no apparent distress. Head/Neck Exam: Extraocular muscles intact. Pupils equally round and reactive to light. Mucous membranes are moist. Neck is supple. There is no jugular venous distention (JVD). Cardiovascular: S1, S2, regular rate. No edema of the bilateral lower extremities. Respiratory: Chest is clear to auscultation bilaterally. Bilateral equal air entry. No rales or rhonchi. Abdomen: Soft, positive bowel sounds. Peritoneal dialysis catheter exit site is clean. Musculoskeletal: No clubbing or cyanosis. The patient has dressing in the bilateral feet which are tender to touch. Central Nervous System (BAROMETERS CALIBRATOR): No focal deficit. Power is 5/5 in bilateral upper extremities. LAB REVIEW: Complete blood count (CBC) showed WBC 8.2, hemoglobin 9.9, platelets of 247. Basic metabolic panel (BMP) showed sodium 138, potassium 3.8, chloride 98, bicarbonate 31, BUN 46, creatinine is 11.7. CURRENT INPATIENT MEDICATIONS: The patient's medications were all reviewed by myself. There is no significant change in the medications today as compared with yesterday. ASSESSMENT/PLAN: 1. End-stage renal disease. The patient is peritoneal dialysis dependent. He is not getting much ultrafiltration with all 1.5% exchanges. I am going to change one of his manual exchanges to 2.5%. Continue 2 liters volume. 2. Anemia in end-stage renal disease. Hemoglobin is close to baseline. Continue current dose of Aranesp 100 mcg subcu once a week. 3. Secondary hyperparathyroidism. Continue current dose of Sensipar. 4. Chronic kidney disease, mineral bone disease. Continue current dose of Renvela with meals. 5. Peripheral vascular disease status post left big toe amputation. The patient is being seen by vascular surgery. Pain medication and optimization is as per vascular.
--- NOTE | 2019-09-21 15:57 | IPNPDOC ---
Text Note Date of Service The patient was seen on 09/21/19. NOTE Patient seen and examined this morning. no acute overnight events.. He is alert, oriented times place and person. Higher had a chat with him regarding the possibility of going to a rehabilitation subacute versus inpatient, but he is adamantly refusing. He understands that he cannot take care of himself at home and he has an active wound which is in the healing phase at this time. Tried reaching out Lian at her number today and left a voicemail as well. PHYSICAL EXAMINATION: General: Alert and oriented times three, appropriately answering questions. HEENT: Atraumatic, normocephalic. Pupils equal round and reactive. Dry mucous membranes. No jugular venous distention (JVD). S1, S2 sounds, regular rate and rhythm. No audible murmurs, rubs or gallops. No lower extremity edema. Respiratory: Clear to auscultate bilaterally. No audible wheezing, rhonchi or rales. Abdomen: Soft. Positive bowel sounds in all four quadrants. Peritoneal dialysis catheter in place. No erythema, no discharge, currently being used. Musculoskeletal: No lower extremity edema. Left toe amputated, dressing in place, no obvious discharge, erythema. Mild tenderness to palpation. No foul smell noted. Neurologic: No focal deficits noted. Psychiatric: Appropriate. Labs reviewed Radiology reviewed Assessment and plan: Pt is a 79 yo male with PMH of renal cell carcinoma, s tatus post bilateral nephrectomy, ESRD on peritoneal dialysis, and peripheral vascular disease presented with gangrenous left big toe s/p left first toe Ray amputation POD 7; pt cont to receive peritoneal dialysis; PT/OT ordered 1. Left first toe infection s/p Ray amputation, POD 7. Continue following vascular surgery recommendations. PT/OT, and activity per PT/OT. Tramadol for pain. Activity as per surgery 2. Peripheral Vascular disease. Vascular surgery following. Cont home med atorvastatin and plavix. Keep b/l LE elevated 3. ESRD, on chronic peritoneal dialysis at home. Nephrology following. Manual settings introduced by nephrology 4. Chronic CAD. Cont home med atorvastatin 5. GERD. Cont home med Omeprazole 6. 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 Anemia stable, cont to follow CBC 7. Hypotension. At baseline. Will continue to monitor 8. Secondary hyperparathyroidism from CKD. Continue Cinacalcet 60 mg PO MWF DVT PROPHYLAXIS: Heparin 5000 units Q8H. Dispo: Left big toe RAY amputation POD 7. advisory services associate on board. The patient is refusing to go to [facility] or any other subacute rehabilitation. We will continue to reaching out to the family and decide the best course future. VS,Fishbone, I+O VS, Fishbone, I+O Laboratory Tests 09/21/19 05:38 Vital Signs Date Time Temp Pulse Resp B/P (MAP) Pulse Ox O2 Delivery O2 Flow Rate FiO2 09/21/19 14:00 98.1 89 18 97/55 (69) 98 Room Air I&O- Last 24 Hours up to 6 AM 09/21/19 06:00 Intake Total 86949 ml Output Total 9900 ml Balance 820 ml NAVI HAYES MD Sep 21, 2019 15:57
[2019-09-21 18:00] VITALS: BP 107/65
[2019-09-21] MEDS: ATORVASTATIN 20 MG TAB PO SCH (21:09)
[2019-09-21 22:00] VITALS: BP 104/51
[2019-09-22] VITALS (8 sets, daily range): BP systolic 84–122; BP diastolic 47–71
[2019-09-22] MEDS: traMADol 50 MG TAB PO PRN ×2 (06:35→14:13)
[2019-09-22] MEDS: ALBUTEROL 90 MCG/ACT 8GM HFA INHALER INH PRN ×2 (07:26→23:34)
[2019-09-22] MEDS: TIOTROPIUM INHALER/CAPSULE (SPIRIVA) INH SCH (07:26)
[2019-09-22] MEDS: (RENVELA) SEVELAMER **CARBONate** 800 MG TAB PO SCH ×4 (08:00→18:29)
[2019-09-22] MEDS: HEPARIN SOD (PORCINE) 5000UNITS/ML VIAL (J1644 PER 1000UNITS) SQ SCH ×4 (08:00→16:00)
[2019-09-22] MEDS: SENOKOT S TAB PO SCH ×2 (09:05→22:06)
[2019-09-22] MEDS: POTASSIUM CHLORIDE 10 MEQ SR TABLET PO SCH ×2 (09:06→22:05)
[2019-09-22] MEDS: MIRALAX *UNIT DOSE* 17GM PACKET PO SCH (09:06)
[2019-09-22] MEDS: MULTIVITAMINS/MINERALS THERAP 1 TAB PO SCH (09:06)
[2019-09-22] MEDS: CLOPIDOGREL 75 MG TAB PO SCH (09:06)
--- NOTE | 2019-09-22 13:12 | IPN ---
DATE: 09/22/2019 SUBJECTIVE: The patient was seen and examined at the bedside today morning. He is hemodynamically stable. He still reports pain in the lower extremity, right is worse than the left. No issues with peritoneal dialysis. He got the PD exchange done today and 300 mL of ultrafiltration was received OBJECTIVE: Vital Signs: Temperature is 98.4 degrees Fahrenheit, blood pressure 102/61, pulse is 73, respiratory of 19, saturating 98% on room air. Intake and output: Urine output is not recorded. Weight in the bed scale is 75.3 kg, which is stable from yesterday. PHYSICAL EXAMINATION: General: The patient is awake, alert, oriented times two, laying in bed, in mild painful distress. Head and Neck Exam: Extraocular muscles intact. Pupils equally round and reactive to light. Mucous membranes are moist. Neck is supple. There is no jugular venous distention (JVD). Cardiovascular: S1, S2. Regular rate. No edema of the bilateral lower extremities. Respiratory: Chest is clear to auscultation bilaterally. Bilateral equal air entry. No rales or rhonchi. Abdomen: Soft, positive bowel sounds. Peritoneal dialysis catheter access site is clean. Musculoskeletal: He has dressings on bilateral lower extremities on the feet, otherwise no edema noted. CLAM GROWER: No focal deficit. Power is 5/5 in bilateral upper extremities. LAB REVIEW: CBC and BMP are from yesterday. No new labs available today. CURRENT INPATIENT MEDICATIONS: The patient's medications were all reviewed by myself. There is no significant change in the medications today as compared with yesterday. ASSESSMENT/PLAN: 1. End-stage renal disease. The patient is dependent on peritoneal dialysis. He is getting four manual exchanges of 1.5% and one exchange of 2.5%. Volume status is optimal. 2. Anemia in end-stage renal disease. Hemoglobin level is stable with current dose of Aranesp at 200 mcg subcutaneous once a week. 3. Peripheral vascular disease, status post left big toe amputation. The patient still complains of pain. He is taking tramadol, he refuses IV morphine because of obtundation. 4. Chronic kidney disease mineral bone disease. Continue current dose of Renvela 800 mg by mouth with meals and continue Sensipar 60 mg by mouth Tuesday, Tuesday and Tuesday for secondary hyperparathyroidism.
--- NOTE | 2019-09-22 13:28 | IPNPDOC ---
Text Note Date of Service The patient was seen on 09/22/19. NOTE Patient seen and examined this morning. no acute overnight events.. PHYSICAL EXAMINATION: General: Alert and oriented times three, appropriately answering questions. HEENT: Atraumatic, normocephalic. Pupils equal round and reactive. Dry mucous membranes. No jugular venous distention (JVD). S1, S2 sounds, regular rate and rhythm. No audible murmurs, rubs or gallops. No lower extremity edema. Respiratory: Clear to auscultate bilaterally. No audible wheezing, rhonchi or rales. Abdomen: Soft. Positive bowel sounds in all four quadrants. Peritoneal dialysis catheter in place. No erythema, no discharge, currently being used. Musculoskeletal: No lower extremity edema. Left toe amputated, dressing in place, no obvious discharge, erythema. Mild tenderness to palpation. No foul smell noted. Neurologic: No focal deficits noted. Psychiatric: Appropriate. Labs reviewed Radiology reviewed Assessment and plan: Pt is a 79 yo male with PMH of renal cell carcinoma, status post bilateral nephrectomy, ESRD on peritoneal dialysis, and peripheral vascular disease presented with gangrenous left big toe s/p left first toe Ray amputation POD 8; pt cont to receive peritoneal dialysis; PT/OT ordered. As all the infected toe was amputated. He is not on any antibiotic at this time. 1. Left first toe infection s/p Ray amputation, POD 8. Continue following vascular surgery recommendations. PT/OT, and activity per PT/OT. Tramadol for pain. Activity as per surgery 2. Peripheral Vascular disease. Vascular surgery following. Cont home med atorvastatin and plavix. Keep b/l LE elevated 3. ESRD, on chronic peritoneal dialysis at home. Nephrology following. Manual settings introduced by nephrology 4. Chronic CAD. Cont home med atorvastatin 5. GERD. Cont home med Omeprazole 6. 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 Anemia stable, cont to follow CBC 7. Hypotension. At baseline. Will continue to monitor 8. Secondary hyperparathyroidism from CKD. Continue Cinacalcet 60 mg PO MWF DVT PROPHYLAXIS: Heparin 5000 units Q8H. Dispo: He is alert, oriented times place and person. Higher had a chat with him again regarding the possibility of going to a rehabilitation subacute versus inpatient, but he does not want to participate in that thought. He understands that he cannot take care of himself at home and he has an active wound which is in the healing phase at this time. I have spoken to the , once and as per her, she does not want him to go to any rehabilitation as she states that it is very hard for him to participate the amount of activity. They required for him to do. The patient is not clinically stable to go home as he has not been cleared by PT and the cannot take care of him at home in this state. Spoke with the housing case manager in detail. The options are limited and possibly the patient if continues to refuse to be placed to a subacute rehabilitation will need to be discharged home. The other limiting factor is his peritoneal dialysis which a lot of places are not comfortable taking him. review manager social workers as well as PT, OT continue to all of this patient. VS,Fishbone, I+O VS, Fishbone, I+O Vital Signs Date Time Temp Pulse Resp B/P (MAP) Pulse Ox O2 Delivery O2 Flow Rate FiO2 09/22/19 07:05 17 Room Air 09/22/19 06:00 98.4 73 102/61 (75) 98 I&O- Last 24 Hours up to 6 AM 09/22/19 06:00 Intake Total 94162 ml Output Total 30430 ml Balance 175 ml NAVI HAYES MD Sep 22, 2019 13:28
[2019-09-22] MEDS: ATORVASTATIN 20 MG TAB PO SCH (22:05)
[2019-09-22] MEDS: IPRATROPIUM HFA INHALER 12.9 GRAMS (ATROVENT HFA) INH PRN (23:34)
[2019-09-23 02:00] VITALS: BP 102/66
[2019-09-23 06:00] VITALS: BP 100/58
[2019-09-23 07:10] LABS: HEMATOCRIT 32.8 % (42.0-52.0); HEMOGLOBIN 10.9 g/dl (13.5-17.5); MEAN CORPUSCULAR HEMOGLOBIN 32.3 pg (27.0-33.0); MEAN CORPUSCULAR HGB CONC 33.2 g/dl (32.0-36.5); MEAN CORPUSCULAR VOLUME 97.3 fl (80.0-96.0); PLATELET COUNT, AUTOMATED 277 10^3/uL (150-450); RED BLOOD COUNT 3.37 10^6/uL (4.30-6.10); WHITE BLOOD COUNT 7.8 10^3/uL (4.0-10.0)
[2019-09-23] MEDS: TIOTROPIUM INHALER/CAPSULE (SPIRIVA) INH SCH (07:18)
[2019-09-23 07:48] LABS: CALCIUM LEVEL 9.3 MG/DL (8.8-10.2); CREATININE FOR GFR 11.5 MG/DL (0.70-1.30); GLOMERULAR FILTRATION RATE 5.6 (>42)
[2019-09-23 10:00] VITALS: BP 94/54
[2019-09-23] MEDS: SENOKOT S TAB PO SCH ×2 (10:14→20:20)
[2019-09-23] MEDS: MULTIVITAMINS/MINERALS THERAP 1 TAB PO SCH (10:14)
[2019-09-23] MEDS: CLOPIDOGREL 75 MG TAB PO SCH (10:14)
[2019-09-23] MEDS: (RENVELA) SEVELAMER **CARBONate** 800 MG TAB PO SCH ×4 (10:14→18:24)
[2019-09-23] MEDS: HEPARIN SOD (PORCINE) 5000UNITS/ML VIAL (J1644 PER 1000UNITS) SQ SCH ×3 (10:15→16:00)
[2019-09-23] MEDS: MIRALAX *UNIT DOSE* 17GM PACKET PO SCH (10:15)
[2019-09-23] MEDS: POTASSIUM CHLORIDE 10 MEQ SR TABLET PO SCH ×2 (10:15→20:21)
[2019-09-23] MEDS: DARBEPOETIN 200MCG/0.4ML *NON-DIALYSIS* SYRINGE (J0881 PER 1MCG) SC SCH (11:32)
[2019-09-23] MEDS: traMADol 50 MG TAB PO PRN ×2 (11:33→20:23)
[2019-09-23 14:00] VITALS: BP 119/72
[2019-09-23] MEDS: LIDOCAINE 5% (LIDODERM) PATCH TD SCH (14:18)
--- NOTE | 2019-09-23 17:54 | IPNPDOC ---
Date Seen The patient was seen on 09/23/19. Progress Note Patient seen and examined, now 10 days status post left first toe ray amputation. He is stable, still c/o a lot of pain in the right foot and 1st toe per the nurses. He says he is still having a great deal of trouble with transfers, standing, and bearing weight. He feels like he is putting too much pressure on his right foot, which is still very painful, while using the left forefoot offload shoe to keep pressure off of his left foot. He feels very unstable and is worried about getting from the chair to the bathroom at home. Hopefully physical therapy will help him to feel more confident as we go along. He and his significant other are still refusing inpatient rehab. On exam, his left foot amputation incision seems to be healing pretty well. The sutures are intact. There is no drainage or fluctuance, no induration, no erythema. At the distal most aspect of the incision near the second toe, some of the skin is dark and may eventually sloughed off. I'm hopeful that this will still heal, but so far it has remained stable. Unfortunately, this is the furthest tissue from his minimal perfusion in the foot, so it is certainly tenuous. However, so far it has remained completely stable and no signs of breakdown are noted. The incision was cleaned and dried. Dressings were applied. The patient tolerated this well. His right toe dressing was also changed. The toenail and dry gangrene on the medial tip are stable with no changes noted. No erythema, drainage, or signs of infection are present. Foam dressing was reapplied. The patient tolerated this ok but c/o pain. The patient had an appt with Dr Donohue this week I believe to discuss options for the right 1st toe, and it may be crespo to have Dr Donohue see him here instead and see if he might have options. We appreciate the opportunity to participate in the care of this patient. VS, I&O, 24H, Fishbone Vital Signs/I&O Vital Signs Date Time Temp Pulse Resp B/P (MAP) Pulse Ox O2 Delivery O2 Flow Rate FiO2 09/23/19 14:00 97.6 82 18 119/72 (88) 92 Room Air l I&O- Last 24 Hours up to 6 AM 09/23/19 06:00 Intake Total 94409 ml Output Total 9700 ml Balance 1330 ml Laboratory Data 24H LABS Laboratory Tests 2 09/23/19 06:49: Nucleated Red Blood Cells % (auto) 0.0, Anion Gap 8, Glomerular Filtration Rate 5.6L, Calcium Level 9.3 CBC/BMP Laboratory Tests 09/23/19 06:49 ELLA STEPHENSON MD Sep 23, 2019 17:54
[2019-09-23 18:00] VITALS: BP 96/61
--- NOTE | 2019-09-23 18:49 | IPNPDOC ---
Date Seen The patient was seen on 09/23/19. Progress Note SUBJECTIVE: Patient does not talk much but nursing states that he has had pain on his R. foot but restricted with what medications can be given due to avoidance of opiates and NSAIDs. He does not report worsening pain to his R. foot. Pulses palpable. BP 90-100s, afebrile overnight. Reportedly has not slept the past 2 nights although is sleeping during the day today. OBJECTIVE PHYSICAL EXAMINATION: VITAL SIGNS: Please see below. General: No acute distress, minimal verbal communication Eyes: Normal sclera, EOMI HENT: Atraumatic Cardiovascular: Normal rate Pulmonary: Clear to auscultation b/l, no wheezing GI: Soft, nontender, nondistended, PD catheter Skin: Warm and dry. darkened skin in b/l feet with dry scaly skin at distal tip of R. large toe. Pulses palpable and noted on doppler. Neuro: CN grossly intact. No focal deficits. Generalized weakness. LABORATORY DATA, IMAGING STUDIES, MICROBIOLOGY: Please see below. DVT prophylaxis ordered?: HSQ ASSESSMENT AND PLAN: 1. L. 1st toe infection s/p ray amputation POD 9 - vascular surgery has been following. Tramadol for pain. - also has tylenol but unable to change to other medications as reported intolerance to any opiates and NSAIDs. - c/w PT/OT as tolerated. 2. PVD - c/w atorvastatin and Plavix. - R. distal big toe also darkened, likely may need to be removed as well. - Will try to consult Dr. Donohue this week if possible. 3. ESRD on peritoneal dialysis - dialysis per nephro recommendations/management. 4. CAD - c/w statin. 5. Hypotension - baseline low BP, continue to monitor. Dispo: Patient had not cleared PT and would benefit from Rehab subacute vs. inpatient. had discussed with Dr. Baltazar and reportedly does not want rehab placement although it is not ideal/unsafe for home discharge at this time. May have to d/c home if no other alternatives can be reached however. VS, I&O, 24H, Fishbone Vital Signs/I&O Vital Signs Date Time Temp Pulse Resp B/P (MAP) Pulse Ox O2 Delivery O2 Flow Rate FiO2 09/23/19 18:00 97.7 81 17 96/61 (73) 96 Room Air I&O- Last 24 Hours up to 6 AM 09/23/19 06:00 Intake Total 99501 ml Output Total 9700 ml Balance 1330 ml Laboratory Data 24H LABS Laboratory Tests 2 09/23/19 06:49: Nucleated Red Blood Cells % (auto) 0.0, Anion Gap 8, Glomerular Filtration Rate 5.6L, Calcium Level 9.3 CBC/BMP Laboratory Tests 09/23/19 06:49 DALLAS FRANCE MD Sep 23, 2019 18:49
[2019-09-23] MEDS: ATORVASTATIN 20 MG TAB PO SCH (20:20)
[2019-09-23] MEDS: **NOTE PATIENT COMMENT** MISC XX SCH (20:21)
[2019-09-23 22:00] VITALS: BP 102/64
[2019-09-24] MEDS: HEPARIN SOD (PORCINE) 5000UNITS/ML VIAL (J1644 PER 1000UNITS) SQ SCH ×4 (00:18→13:20)
[2019-09-24 02:00] VITALS: BP 100/60
[2019-09-24 06:00] VITALS: BP 100/61
[2019-09-24] MEDS: TIOTROPIUM INHALER/CAPSULE (SPIRIVA) INH SCH (07:40)
[2019-09-24] MEDS: MIRALAX *UNIT DOSE* 17GM PACKET PO SCH (08:45)
[2019-09-24] MEDS: LIDOCAINE 5% (LIDODERM) PATCH TD SCH (08:46)
[2019-09-24] MEDS: SENOKOT S TAB PO SCH ×2 (08:47→20:14)
[2019-09-24] MEDS: MULTIVITAMINS/MINERALS THERAP 1 TAB PO SCH (08:47)
[2019-09-24] MEDS: POTASSIUM CHLORIDE 10 MEQ SR TABLET PO SCH ×2 (08:47→20:14)
[2019-09-24] MEDS: CINACALCET 30 MG TAB (SENSIPAR) PO SCH (08:47)
[2019-09-24] MEDS: (RENVELA) SEVELAMER **CARBONate** 800 MG TAB PO SCH ×3 (08:47→17:41)
[2019-09-24] MEDS: CLOPIDOGREL 75 MG TAB PO SCH (08:47)
[2019-09-24] MEDS: traMADol 50 MG TAB PO PRN ×2 (08:48→17:43)
--- NOTE | 2019-09-24 09:38 | IPN ---
DATE: 09/23/2019 SUBJECTIVE: The patient was seen and examined at the bedside today morning. The patient is afebrile, hemodynamically stable. He reports persistent pain in the right big toe. He reports the left big toe surgical site pain is well-controlled. He denies any problems with the peritoneal dialysis. OBJECTIVE: Vital Signs: Temperature is 97.6 degrees Fahrenheit, blood pressure 119/72, pulse is 82, respiratory rate of 18, saturating 92% on room air. Intake and Output: Output with the peritoneal dialysis is 4.2 liters. Weight in the bed scale is stable at 75 kg. PHYSICAL EXAMINATION: General: The patient is awake, alert, oriented times three, laying in bed, in no apparent distress apart from pain in the right big toe. Head and Neck Exam: Extraocular muscles intact. Pupils equally round and reactive to light. Mucous membranes are moist. Neck is supple. There is no jugular venous distention (JVD). Cardiovascular: S1, S2, regular rate. No edema of the bilateral extremities. Respiratory: Chest is clear to auscultation bilaterally. Bilateral equal air entry. No rales or rhonchi. Abdomen: Soft. Positive bowel sounds. Nontender. No organomegaly. Peritoneal dialysis catheter exit site is clean. Musculoskeletal: The patient has big dressing on the left foot and he has a dressing on the right big toe. Big toe is slightly discolored and darkened color and it is very tender to touch. Central Nervous System (CHECK WEIGHER): No focal deficit. Power is 5/5 in bilateral upper extremities. LAB REVIEW: Complete blood count (CBC) showed WBC 7.8, hemoglobin 10.9, platelets of 177. Basic metabolic panel (BMP) showed sodium 134, potassium 4, chloride 98, bicarbonate 28, BUN 40, creatinine is 11.5. CURRENT INPATIENT MEDICATIONS: The patient's medications were all reviewed by myself. He has been started on Lidoderm patch for the right foot. No other change in the medications today as compared with yesterday. ASSESSMENT AND PLAN: 1. End-stage renal disease. Continue current peritoneal dialysis (PD) regimen of four manual exchanges of 1.5% and one exchange of 2.5%. 2. Anemia in end-stage renal disease. It is optimized with Aranesp 200 mcg daily. 3. Peripheral vascular disease status post left big toe amputation. Left big toe amputation site pain is very well-controlled. However, the patient reports pain in the right big toe. He refuses to get IV opioids because of history of confusion with the opioid use. Further management as per vascular surgery recommendations. 4. Chronic kidney disease, mineral bone disease. Continue Sensipar and Renvela.
[2019-09-24 10:00] VITALS: BP 115/67
[2019-09-24 12:09] LABS: HEMATOCRIT 34.6 % (42.0-52.0); HEMOGLOBIN 11.2 g/dl (13.5-17.5); MEAN CORPUSCULAR HEMOGLOBIN 31.9 pg (27.0-33.0); MEAN CORPUSCULAR HGB CONC 32.4 g/dl (32.0-36.5); MEAN CORPUSCULAR VOLUME 98.6 fl (80.0-96.0); PLATELET COUNT, AUTOMATED 291 10^3/uL (150-450); RED BLOOD COUNT 3.51 10^6/uL (4.30-6.10); WHITE BLOOD COUNT 8.5 10^3/uL (4.0-10.0)
[2019-09-24 12:29] LABS: CALCIUM LEVEL 10.3 MG/DL (8.8-10.2); CREATININE FOR GFR 11.6 MG/DL (0.70-1.30); GLOMERULAR FILTRATION RATE 5.5 (>42); POTASSIUM SERUM 4.5 MEQ/L (3.5-5.1)
[2019-09-24] MEDS: OMEPRAZOLE 20 MG CAP PO SCH (13:19)
--- NOTE | 2019-09-24 13:45 | IPNPDOC ---
Text Note Date of Service The patient was seen on 09/24/19. NOTE Vascular surgery Dr. Canseco Patient seen and examined, now 11 days status post left first toe ray amputation. Nursing reports he is still having a great deal of trouble with transfers, standing, and bearing weight. On exam, his left foot amputation incision appears to be healing. The sutures are intact. There is no drainage or fluctuance, no induration, no erythema. At the distal most aspect of the incision near the second toe, some of the skin is dark, this appears to be unchanged. The incision was cleaned and dried. Dressings were applied. The patient tolerate d this well. The patient had an appt with Dr Donohue this week to discuss options for the right 1st toe, and Dr. Donohue is consulted to see him while he is here. Will continue to follow. VS,Fishbone, I+O VS, Fishbone, I+O Laboratory Tests 09/24/19 10:41 Vital Signs Date Time Temp Pulse Resp B/P (MAP) Pulse Ox O2 Delivery O2 Flow Rate FiO2 09/24/19 09:40 18 09/24/19 08:48 Room Air 09/24/19 06:00 98.5 57 100/61 (74) 94 I&O- Last 24 Hours up to 6 AM 09/24/19 06:00 Intake Total 85356 ml Output Total 05607 ml Balance -140 ml Puja Garcia Sep 24, 2019 13:45
[2019-09-24 14:00] VITALS: BP 117/57
[2019-09-24 18:00] VITALS: BP 94/55
[2019-09-24] MEDS: ATORVASTATIN 20 MG TAB PO SCH (20:14)
[2019-09-24] MEDS: **NOTE PATIENT COMMENT** MISC XX SCH (20:14)
[2019-09-24 22:00] VITALS: BP 142/71
[2019-09-25] VITALS (7 sets, daily range): BP systolic 92–133; BP diastolic 51–94
[2019-09-25] MEDS: HEPARIN SOD (PORCINE) 5000UNITS/ML VIAL (J1644 PER 1000UNITS) SQ SCH ×3 (00:23→16:00)
[2019-09-25 06:17] LABS: CALCIUM LEVEL 10.2 MG/DL (8.8-10.2); CREATININE FOR GFR 11.6 MG/DL (0.70-1.30); GLOMERULAR FILTRATION RATE 5.5 (>42); POTASSIUM SERUM 4.2 MEQ/L (3.5-5.1)
[2019-09-25] MEDS: TIOTROPIUM INHALER/CAPSULE (SPIRIVA) INH SCH (07:17)
--- NOTE | 2019-09-25 08:59 | IPNPDOC ---
Text Note Date of Service The patient was seen on 09/25/19. NOTE Vascular surgery Dr. Canseco Patient seen and examined, now 12 days status post left first toe ray amputation. Nursing reports he is still having a great deal of trouble with transfers, standing, and bearing weight. On exam, his left foot amputation incision appears to be unchanged and appears to be healing. The sutures are intact. There is no drainage or fluctuance, no induration, no erythema. At the distal most aspect of the incision near the second toe, some of the skin is dark, this appears to be unchanged. The incision was cleaned and dried. Dressings were applied. The patient tolerated this well. The patient was seen by Dr Donohue 09/24/19 regarding the right great toe wound. No intervention was recommended at this time according to the patient. Will continue to follow. VS,Dhavalbone, I+O VS, Fishbone, I+O Laboratory Tests 09/24/19 10:41 09/25/19 05:29 Vital Signs Date Time Temp Pulse Resp B/P (MAP) Pulse Ox O2 Delivery O2 Flow Rate FiO2 09/25/19 06:00 98.7 88 16 105/52 (69) 95 Room Air I&O- Last 24 Hours up to 6 AM 09/25/19 05:59 Intake Total 98092 ml Output Total 60175 ml Balance 220 ml Puja Garcia Sep 25, 2019 08:59
[2019-09-25] MEDS: SENOKOT S TAB PO SCH ×2 (09:00→21:00)
[2019-09-25] MEDS: MIRALAX *UNIT DOSE* 17GM PACKET PO SCH (09:00)
[2019-09-25] MEDS: MULTIVITAMINS/MINERALS THERAP 1 TAB PO SCH (09:30)
[2019-09-25] MEDS: OMEPRAZOLE 20 MG CAP PO SCH (09:30)
[2019-09-25] MEDS: CLOPIDOGREL 75 MG TAB PO SCH (09:30)
[2019-09-25] MEDS: POTASSIUM CHLORIDE 10 MEQ SR TABLET PO SCH ×2 (09:30→21:00)
[2019-09-25] MEDS: (RENVELA) SEVELAMER **CARBONate** 800 MG TAB PO SCH ×4 (09:30→17:24)
[2019-09-25] MEDS: LIDOCAINE 5% (LIDODERM) PATCH TD SCH (09:31)
--- NOTE | 2019-09-25 09:42 | IPN ---
DATE OF SERVICE: 09/24/2019 SUBJECTIVE: The patient was seen and examined at the bedside today morning. He is afebrile, hemodynamically stable. He reports mild persistent pain in the right big toe, and podiatry is going to see the patient. Left foot is being taken care of by vascular surgery. He denies any problems with peritoneal dialysis. OBJECTIVE: Vital signs: Temperature is 98 degrees Fahrenheit, blood pressure 94/55, pulse is 82, respiratory rate of 18, saturating 96% on room air. Intake and output: There is no urine output recorded. Weight in the bed scale is 1.5 kg. PHYSICAL EXAMINATION: General: The patient is awake, alert, oriented times three, laying in bed, mild painful distress. Head and neck examination: Extraocular muscles intact. Pupils equally round and reactive to light. Mucous membranes are moist. Neck is supple. There is no jugular venous distention (JVD). Cardiovascular: S1, S2, regular rate. No edema of the bilateral lower extremities. Respiratory: Chest is clear to auscultation bilaterally. Bilateral equal air entry. No rales or rhonchi. Abdomen: Soft, positive bowel sounds, nontender. Peritoneal dialysis site is clean. Musculoskeletal: He has dressing in bilateral feet. Central nervous system (PUMPER HELPER): No focal deficit. Power is 5/5 in bilateral upper extremities. LABORATORY REVIEW: Complete blood count (CBC) showed a WBC 8.5, hemoglobin 11.2, platelets are 291. Basic metabolic profile (BMP) showed sodium 138, potassium 4.5, chloride 96, bicarbonate 31, BUN 41, creatinine is 11.6. CURRENT INPATIENT MEDICATIONS: The patient's medications were all reviewed by me. There is no significant change in the medications today as compared with yesterday. ASSESSMENT AND PLAN: 1. End-stage renal disease. The patient is currently getting peritoneal dialysis. Total of five manual exchanges. One of them is 2.5%. Volume status is optimal. Continue current regimen. 2. Anemia in end-stage renal disease. The patient's hemoglobin has been increased to more than 11. If it stays more than 11, then dose will be decreased to 100 mcg once a week. 3. Hyponatremia. It was hypervolemic hyponatremia. Sodium has improved to 138 with ultrafiltration. 4. Secondary hyperparathyroidism. Continue current dose of Sensipar. MTDD
--- NOTE | 2019-09-25 09:46 | CR ---
DATE OF CONSULTATION: 09/24/2019 at approximately 7 p.m. CHIEF COMPLAINT: 79-year-old male seen for evaluation of dry gangrene of his right big toe. The patient states his toe is very painful. He has had surgery on his left foot by Dr. Canseco who is taken care of that foot and asked me to look at his right foot. PAST MEDICAL HISTORY: 1. Peripheral vascular disease with multiple vascular procedures. 2. Chronic coronary artery disease. 3. End-stage renal disease, on peritoneal dialysis. 4. Status post bilateral nephrectomies for renal cell cancer. 5. Anemia of chronic renal disease. 6. Gout. 7. Hypertensive nephrosclerosis. 8. Chronic diastolic congestive heart failure. 9. Pulmonary hypertension. 10. Mild to moderate aortic valve sclerosis with aortic valve regurgitation. 11. Gastroesophageal reflux disease (GERD). 12. History of prostate cancer. 13. Amputation of left hallux. HOME MEDICATIONS: - atorvastatin 40 mg by mouth at bedtime - Sensipar 60 mg tablet - clopidogrel 75 mg tablet - Colace 100 mg capsule - Epogen 20,000 unit - heparin - multivitamins - omeprazole 20 mg by mouth daily - K-tab ER 10 mEq tablet - Renvela 800 mg tablet ALLERGIES: To AMLODIPINE, INDOMETHACIN, NIFEDIPINE, NONSTEROIDALS. PHYSICAL EXAMINATION: Reveals an alert, well oriented 79-year-old black male. Evaluation of his foot reveals a dry area of dry gangrene on the distal lateral plantar surface of his right hallux. This measures 3 cm in length by 1.5 cm in width. There is no fluctuance underneath the dry eschar. No signs of infection. Pedal pulses are not palpable. Popliteal pulse is not palpable. No other ulcerations are noted on his right foot. The left foot has a bandage in place being treated by Dr. Canseco status post left hallux amputation. ASSESSMENT: Dry gangrene right hallux without infection. PLAN: Since the eschar has no fluctuance or fluid underneath the eschar, I would allow it to progress. Most likely this area with slough off with underlying viable tissue. If however it becomes infected or worsens, I would be happy to see this patient in followup.
[2019-09-25] MEDS ORDERED: GABAPENTIN 100 MG CAP PO SCH ×2 (10:30→21:00)
[2019-09-25] MEDS ORDERED: GABAPENTIN 100 MG CAP PO ONE (10:30)
--- NOTE | 2019-09-25 10:47 | IPNPDOC ---
Date Seen The patient was seen on 09/24/19. Progress Note SUBJECTIVE: Patient seem very alert today. States that his foot has pain like usual but o jon reports no other complaints. Informed that we will have Dr. Donohue see him while he is inpatient for follow up and patient is very happy about that. No acute events reported overnight. OBJECTIVE PHYSICAL EXAMINATION: VITAL SIGNS: Please see below. General: No acute distress Eyes: Normal sclera, EOMI HENT: Atraumatic Cardiovascular: Normal rate Pulmonary: Clear to auscultation b/l, no wheezing GI: Soft, nontender, nondistended, PD catheter Skin: Warm and dry. darkened skin in b/l feet with dry scaly skin at distal tip of R. large toe. Neuro: CN grossly intact. No focal deficits. Generalized weakness. LABORATORY DATA, IMAGING STUDIES, MICROBIOLOGY: Please see below. DVT prophylaxis ordered?: HSQ ASSESSMENT AND PLAN: 1. L. 1st toe infection s/p ray amputation - vascular surgery has been following. Tramadol for pain. - also has tylenol but unable to change to other medications as reported intolerance to any opiates and NSAIDs. - c/w PT/OT as tolerated. 2. PVD - c/w atorvastatin and Plavix. - R. distal big toe also darkened, likely may need to be removed as well. - Will be evaluated by Podiatry today. 3. ESRD on peritoneal dialysis - dialysis per nephro recommendations/management. 4. CAD - c/w statin. 5. Hypotension - baseline low BP, continue to monitor. Dispo: Patient had not cleared PT and would benefit from Rehab subacute vs. inpatient. had discussed with Dr. Baltazar and reportedly does not want rehab placement although it is not ideal/unsafe for home discharge at this time. May have to d/c home if no other alternatives can be reached however. VS, I&O, 24H, Dhavalbone Vital Signs/I&O Vital Signs Date Time Temp Pulse Resp B/P (MAP) Pulse Ox O2 Delivery O2 Flow Rate FiO2 09/25/19 10:00 98.1 54 17 100/55 (70) 97 Room Air I&O- Last 24 Hours up to 6 AM 09/25/19 06:00 Intake Total 9620 ml Output Total 9200 ml Balance 420 ml Laboratory Data 24H LABS Laboratory Tests 2 09/25/19 05:29: Anion Gap 6L, Glomerular Filtration Rate 5.5L, Calcium Level 10.2 CBC/BMP Laboratory Tests 09/25/19 05:29 DALLAS FRANCE MD Sep 25, 2019 10:47
--- NOTE | 2019-09-25 10:50 | IPNPDOC ---
Date Seen The patient was seen on 09/25/19. Progress Note SUBJECTIVE: Patient reportedly has been more lethargic intermittently since last night. However, he was very alert and responsive when seen this morning. Seen by Podiatry yesterday. No other acute events reported overnight. OBJECTIVE PHYSICAL EXAMINATION: VITAL SIGNS: Please see below. General: No acute distress Eyes: Normal sclera, EOMI HENT: Atraumatic Cardiovascular: Normal rate Pulmonary: Clear to auscultation b/l, no wheezing GI: Soft, nontender, nondistended, PD catheter Skin: Warm and dry. darkened skin in b/l feet with dry scaly skin at distal tip of R. large toe. Neuro: CN grossly intact. No focal deficits. Generalized weakness. LABORATORY DATA, IMAGING STUDIES, MICROBIOLOGY: Please see below. DVT prophylaxis ordered?: HSQ ASSESSMENT AND PLAN: 1. L. 1st toe infection s/p ray amputation - vascular surgery has been following. Tramadol discontinued due to suspected increased lethargy. Gabapentin added. - also has tylenol but unable to change to other medications as reported intolerance to any opiates and NSAIDs. - c/w PT/OT as tolerated. 2. PVD - c/w atorvastatin and Plavix. - R. distal big toe also darkened, likely may need to be removed as well in the future. Had been seen by Podiatry here. 3. ESRD on peritoneal dialysis - dialysis per nephro recommendations/management. 4. CAD - c/w statin. 5. Hypotension - baseline low BP, continue to monitor. Dispo: Patient had not cleared PT and would benefit from Rehab subacute vs. inpatient. had discussed with Dr. Baltazar and reportedly does not want rehab placement although it is not ideal/unsafe for home discharge at this time. To continue discussion with . Patient ultimately will go home although not ideal or get fistula for HD for placement. VS, I&O, 24H, Dhavalbone Vital Signs/I&O Vital Signs Date Time Temp Pulse Resp B/P (MAP) Pulse Ox O2 Delivery O2 Flow Rate FiO2 09/25/19 10:00 98.1 54 17 100/55 (70) 97 Room Air I&O- Last 24 Hours up to 6 AM 09/25/19 06:00 Intake Total 9620 ml Output Total 9200 ml Balance 420 ml Laboratory Data 24H LABS Laboratory Tests 2 09/25/19 05:29: Anion Gap 6L, Glomerular Filtration Rate 5.5L, Calcium Level 10.2 CBC/BMP Laboratory Tests 09/25/19 05:29 DALLAS FRANCE MD Sep 25, 2019 10:50
--- NOTE | 2019-09-25 20:51 | IPN ---
DATE: 09/25/2019 SUBJECTIVE: The patient was seen and examined today morning. He is afebrile, hemodynamically stable. He reports the pain in the lower extremities is getting better. However, he reports difficulty to ambulate because of dressing on both feet. He denies any problems with peritoneal dialysis. OBJECTIVE: Vital signs: Temperature is 98.1 degrees Fahrenheit, blood pressure 100/55, pulse is 54, respiratory rate of 17, saturating 97% on room air. Intake and output: There is no urine output because the patient has bilateral [place] nephrectomies. Weight in the bed scale is 70.9 kg, which is stable. PHYSICAL EXAMINATION: General: The patient is awake, alert, oriented times three, in no apparent distress. Head and neck exam: Extraocular muscles intact. Pupils equally round and reactive to light. Mucous membranes are moist. Neck is supple. There is no jugular venous distention (JVD). Cardiovascular: S1, S2, regular rate. No edema of the bilateral lower extremities. Respiratory: Chest is clear to auscultation bilaterally. Bilateral equal air entry. No rales or rhonchi. Abdomen: Soft, positive bowel sounds, nontender. No organomegaly. Musculoskeletal: The patient has dressing on both feet. 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 Power is 5/5 in bilateral upper extremities. LAB REVIEW: CBC showed a WBC of 8.5, hemoglobin 11.2, platelets are 291. BMP showed sodium 133, potassium 4.2, chloride 97, bicarbonate is 30, BUN 38, creatinine is 11.6, calcium 10.2. CURRENT INPATIENT MEDICATIONS: The patient's medications were all reviewed by myself. There is no significant change in the medications today as compared with yesterday. His tramadol has been stopped. ASSESSMENT/PLAN: 1. End-stage renal disease. Continue current her peritoneal dialysis (PD) regimen; five manual exchanges, four of them 1.5% and one of them 2.5%. 2. Anemia in end-stage renal disease. Hemoglobin level is stable. Continue current dose of Aranesp. 3. Peripheral vascular disease, status post left big toe amputation. The patient's wound is getting better. Vascular surgery is following up. 4. Secondary hyperparathyroidism. Continue current dose of Sensipar. No vitamin D analogs because of high calcium level.
[2019-09-25 20:59] LABS: BASO % 0.4 % (0.0-1.0); EOS # 0.6 10^3/uL (0.0-0.5); EOS % 5.8 % (0.0-3.0); HEMATOCRIT 32.5 % (42.0-52.0); HEMOGLOBIN 10.6 g/dl (13.5-17.5); LYMPH # 3.1 10^3/uL (1.5-5.0); LYMPH % 32.4 % (24.0-44.0); MEAN CORPUSCULAR HEMOGLOBIN 32.1 pg (27.0-33.0); MEAN CORPUSCULAR HGB CONC 32.6 g/dl (32.0-36.5); MEAN CORPUSCULAR VOLUME 98.5 fl (80.0-96.0); MONO # 1.2 10^3/uL (0.0-0.8); MONO % 12.3 % (0.0-5.0); NEUTROPHILS # 4.7 10^3/uL (1.5-8.5); NEUTROPHILS % 48.8 % (36.0-66.0); PLATELET COUNT, AUTOMATED 286 10^3/uL (150-450); WHITE BLOOD COUNT 9.6 10^3/uL (4.0-10.0)
[2019-09-25] MEDS: ATORVASTATIN 20 MG TAB PO SCH (21:00)
[2019-09-25] MEDS: **NOTE PATIENT COMMENT** MISC XX SCH (21:00)
[2019-09-25 21:13] LABS: INR 1.27; PROTHROMBIN TIME 15.6 SECONDS (11.8-14.0)
[2019-09-25 21:14] LABS: PARTIAL THROMBOPLASTIN TIME 35.1 SECONDS (25.0-38.4)
[2019-09-25 21:27] LABS: ALBUMIN 2.4 GM/DL (3.2-5.2); BILIRUBIN,TOTAL 0.3 MG/DL (0.2-1.0); CALCIUM LEVEL 9.5 MG/DL (8.8-10.2); CREATININE FOR GFR 11.3 MG/DL (0.70-1.30); GLOMERULAR FILTRATION RATE 5.7 (>42); TOTAL PROTEIN 6.3 GM/DL (6.4-8.2)
--- NOTE | 2019-09-25 21:27 | REPVR ---
PROCEDURE INFORMATION: Exam: CT Head Without Contrast Exam date and time: 09/25/2019 9:07 PM Age: 79 years old Clinical indication: Weakness, facial; Additional info: Facial droop TECHNIQUE: Imaging protocol: Computed tomography of the head without contrast. Axial and coronal reformatted images were created and reviewed. Radiation optimization: All CT scans at this facility use at least one of these dose optimization techniques: automated exposure control; mA and/or kV adjustment per patient size (includes targeted exams where dose is matched to clinical indication); or iterative reconstruction. COMPARISON: CT Head without contrast 05/22/2019 2:11 PM FINDINGS: Brain: Right parietal parenchymal calcification. Patchy areas of hypoattenuation in the periventricular and subcortical white matter, consistent with chronic small vessel ischemic disease. No CT evidence of acute intracranial hemorrhage or acute territorial infarction. No significant mass effect or midline shift. Basal cisterns patent. Ventricles: Prominence of the cortical sulci, cisterns and ventricular system, consistent with cerebral and cerebellar volume loss. Bones/joints: No acute osseous abnormality. Sinuses: Grossly unremarkable. Mastoid air cells: Grossly unremarkable. Vasculature: Calcific atherosclerotic disease in the cavernous internal carotid arteries, as well as the vertebro-basilar system. Soft tissues: Grossly unremarkable. IMPRESSION: 1. No CT evidence of acute intracranial pathology. 2. Additional findings, as above. Electronically signed by: Champ Ruiz On 09/25/2019 21:27:07 PM
[2019-09-25 22:54] LABS: VENOUS BASE EXCESS -0.3 (-2.0-2.0); VENOUS HCO3 25.7 MEQ/L (23.0-27.0); VENOUS O2 SATURATION 97.3 % (60.0-80.0); VENOUS PARTIAL PRESSURE CO2 47.8 mmHg (38.0-50.0); VENOUS PARTIAL PRESSURE O2 96.9 mmHg (30.0-50.0); VENOUS PH 7.349 UNITS (7.330-7.430); VENOUS STANDARD HCO3 24.2 MEQ/L; VENOUS TOTAL CO2 27.2 MEQ/L (24.0-28.0)
[2019-09-26] VITALS (7 sets, daily range): BP systolic 101–142; BP diastolic 50–88
[2019-09-26 05:55] LABS: CALCIUM LEVEL 9.3 MG/DL (8.8-10.2); CREATININE FOR GFR 11.1 MG/DL (0.70-1.30); GLOMERULAR FILTRATION RATE 5.8 (>42); POTASSIUM SERUM 5.1 MEQ/L (3.5-5.1)
[2019-09-26] MEDS: TIOTROPIUM INHALER/CAPSULE (SPIRIVA) INH SCH (07:15)
[2019-09-26] MEDS ORDERED: NS 1,000 ML IV ONE (08:15)
[2019-09-26] MEDS: SENOKOT S TAB PO SCH ×2 (09:00→21:00)
[2019-09-26] MEDS: MIRALAX *UNIT DOSE* 17GM PACKET PO SCH (09:00)
[2019-09-26] MEDS: MULTIVITAMINS/MINERALS THERAP 1 TAB PO SCH (09:39)
[2019-09-26] MEDS: OMEPRAZOLE 20 MG CAP PO SCH (09:40)
[2019-09-26] MEDS: CLOPIDOGREL 75 MG TAB PO SCH (09:40)
[2019-09-26] MEDS: CINACALCET 30 MG TAB (SENSIPAR) PO SCH (09:40)
[2019-09-26] MEDS: HEPARIN SOD (PORCINE) 5000UNITS/ML VIAL (J1644 PER 1000UNITS) SQ SCH ×4 (09:40→23:33)
[2019-09-26] MEDS: (RENVELA) SEVELAMER **CARBONate** 800 MG TAB PO SCH ×4 (09:40→18:43)
[2019-09-26] MEDS: PIPERACILLIN/TAZOBACTAM SOD 2.25 GM in D5W MINI-BAG PLUS 50 ML IV SCH ×2 (09:41→21:01)
[2019-09-26] MEDS: POTASSIUM CHLORIDE 10 MEQ SR TABLET PO SCH ×2 (09:41→21:01)
[2019-09-26] MEDS: LIDOCAINE 5% (LIDODERM) PATCH TD SCH (09:42)
[2019-09-26] MEDS ORDERED: VANCOMYCIN HCL 1,000 MG, VIAL MATE ADAPTER 1 EACH in D5W 250 ML IV ONE (10:00)
[2019-09-26] MEDS ORDERED: VANCOMYCIN INTERMITTENT/PULSE DOSING BY CLINICAL PHARMACIST PER DOSING PROTOCOL XX SCH (10:00)
--- NOTE | 2019-09-26 10:21 | REP ---
Portable chest x-ray: Single view. History: Assess for pneumonia. Comparison chest x-ray: April 27 2018. Findings: Monitoring electrodes overlie the chest. There is evidence of a hiatal hernia behind the heart. The thoracic aorta is tortuous. No infiltrate is seen. Pleural angles are sharp. Pulmonary vasculature is not increased. Impression: No acute disease. Electronically Signed by Daniel Williamson MD 09/26/2019 10:12 A
--- NOTE | 2019-09-26 12:52 | IPNPDOC ---
Text Note Date of Service The patient was seen on 09/26/19. NOTE Vascular surgery Dr. Canseco Patient seen and examined, now 13 days status post left first toe ray amputation. The patient was transferred to PCU last evening related to unresponsiveness. On exam, the patient is afebrile. His left foot amputation incision appears to be unchanged and appears to be healing. The sutures are intact. There is no drainage or fluctuance, no induration, no erythema. At the distal most aspect of the incision near the second toe, some of the skin is dark, this appears to be unchanged. The patient's left foot incision was also examined at the bedside with Dr. Peterson, who also palpated around the patient's surgical incision site with no f luctuance or drainage noted. The incision was cleaned and dried. Dressings were applied. The patient tolerated this well. No leukocytosis. Lactic acid at 2044 hrs. 09/24 2.6 and 1 AM 3.4. Blood culture 2 pending. Peritoneal fluid cell count and culture pending. Chest x-ray no acute abnormality. Dr. Donohue is following right toe wound, he was seen by Dr. Donohue 09/24/19 regarding the right great toe wound. No intervention recommended at this time. The patient is started on IV Vanco/Zosyn as per nephrology. I have reviewed the patient's status with Dr. Canseco this morning. It is felt unlikely that the patient's left foot surgical site is the source of infection at this time, there is no fluctuance, no drainage, no leukocytosis. Will continue to closely follow. VS,Nadiae, I+O VS, Dhavalbone, I+O Laboratory Tests 09/25/19 20:44 09/26/19 05:00 Vital Signs Date Time Temp Pulse Resp B/P (MAP) Pulse Ox O2 Delivery O2 Flow Rate FiO2 09/26/19 12:00 95.7 82 24 142/82 (102) 93 Room Air I&O- Last 24 Hours up to 6 AM 09/26/19 05:59 Intake Total 9770 ml Output Total 9000 ml Balance 770 ml Puja Garcia Sep 26, 2019 12:52
--- NOTE | 2019-09-26 13:55 | IPNPDOC ---
Date Seen The patient was seen on 09/26/19. Progress Note SUBJECTIVE: Patient reportedly minimally responsive last night and was transferred to PCU. Patient now seem to even have more energy and alert than the previous 2 days. Was taken off of tramadol for lethargy the night before and changed to gabapentin yesterday, which has also been discontinued. Lactic acid elevated up to 3.4 last night but had since resolved. Received a liter of bolus and started on vancomycin and zosyn. CXR does not show any acute disease. OBJECTIVE PHYSICAL EXAMINATION: VITAL SIGNS: Please see below. General: No acute distress Eyes: Normal sclera, EOMI HENT: Atraumatic Cardiovascular: Normal rate Pulmonary: Clear to auscultation b/l, no wheezing GI: Soft, nontender, nondistended, PD catheter Skin: Warm and dry. darkened skin in b/l feet with dry scaly skin at distal tip of R. large toe. Neuro: CN grossly intact. No focal deficits. Generalized weakness. LABORATORY DATA, IMAGING STUDIES, MICROBIOLOGY: Please see below. DVT prophylaxis ordered?: HSQ ASSESSMENT AND PLAN: 1. L. 1st toe infection s/p ray amputation - vascular surgery has been following. Tramadol discontinued due to suspected increased lethargy. Gabapentin was also tried but discontinued for the same reason. - also has tylenol but unable to change to other medications as reported intolerance to any opiates and NSAIDs. - c/w PT/OT as tolerated. 2. PVD - c/w atorvastatin and Plavix. - R. distal big toe also darkened, likely may need to be removed as well in the future. Had been seen by Podiatry while inpatient. 3. ESRD on peritoneal dialysis - dialysis per nephro recommendations/management. 4. CAD - c/w statin. 5. Hypotension - baseline low BP, continue to monitor. 6. Intermittent lethargy - Does not appear to be acute but was minimally responsive on 09/24. - Lactic acidosis noted initially and has since resolved. Continue with vancomycin and Zosyn for now. - f/u blood cultures and peritoneal fluid. No acute changes on CXR. - Avoid any potential agents that can cause sedation, unfortunately the majority of pain medications. Dispo: Patient had not cleared PT and would benefit from Rehab subacute vs. inpatient. had discussed with Dr. Baltazar and reportedly does not want rehab placement although it is not ideal/unsafe for home discharge at this time. VS, I&O, 24H, Fishbone Vital Signs/I&O Vital Signs Date Time Temp Pulse Resp B/P (MAP) Pulse Ox O2 Delivery O2 Flow Rate FiO2 09/26/19 12:00 95.7 82 24 142/82 (102) 93 Room Air I&O- Last 24 Hours up to 6 AM 09/26/19 06:00 Intake Total 43900 ml Output Total 83367 ml Balance 1170 ml Laboratory Data 24H LABS Laboratory Tests 2 09/25/19 20:35: Bedside Glucose (Misc Panel) 139H 09/25/19 20:44: Immature Granulocyte % (Auto) 0.3, Neutrophils (%) (Auto) 48.8, Lymphocytes (%) (Auto) 32.4, Monocytes (%) (Auto) 12.3H, Eosinophils (%) (Auto) 5.8H, Basophils (%) (Auto) 0.4, Neutrophils # (Auto) 4.7, Lymphocytes # (Auto) 3.1, Monocytes # (Auto) 1.2H, Eosinophils # (Auto) 0.6H, Basophils # (Auto) 0.0, Nucleated Red Bl ood Cells % (auto) 0.2H, Prothrombin Time 15.6H, Prothromb Time International Ratio 1.27, Activated Partial Thromboplast Time 35.1, Anion Gap 4L, Glomerular Filtration Rate 5.7L, Lactic Acid Level 2.6*H, Calcium Level 9.5, Total Bilirubin 0.3, Aspartate Amino Transf (AST/SGOT) 31, Alanine Aminotransferase (ALT/SGPT) 14, Alkaline Phosphatase 87, Total Protein 6.3L, Albumin 2.4L, Albumin/Globulin Ratio 0.6 09/25/19 22:50: Blood Gas Bicarbonate Standard 24.2, Venous Blood pH 7.349, Venous Blood Partial Pressure CO2 47.8, Venous Blood Partial Pressure O2 96.9H, Venous Blood Total Carbon Dioxide 27.2, Venous Blood HCO3 25.7, Venous Blood Oxygen Saturation 97.3H, Venous Blood Base Excess -0.3 09/26/19 01:28: Lactic Acid Followup at 4 Hours 3.4*H 09/26/19 05:00: Anion Gap 9, Glomerular Filtration Rate 5.8L, Calcium Level 9.3 09/26/19 12:43: 09/26/19 12:50: Lactic Acid Level 1.8 09/26/19 12:51: CBC/BMP Laboratory Tests 09/25/19 20:44 09/26/19 05:00 Microbiology Microbiology 09/26/19 Gram Stain, Received Pending 09/26/19 Body Fluid Culture, Received Pending 09/26/19 Blood Culture, Received Pending 09/25/19 Blood Culture, Received Pending D[place]AS FRANCE MD Sep 26, 2019 13:55
[2019-09-26 15:59] LABS: APPEARANCE, BODY FLUID CLEAR (CLEAR); PERITONEAL DIALYSATE FL COLOR COLORLESS (COLORLESS); SOURCE, BODY FLUID PERITONEAL DIALYSATE
[2019-09-26] MEDS: **NOTE PATIENT COMMENT** MISC XX SCH (21:01)
[2019-09-26] MEDS: ATORVASTATIN 20 MG TAB PO SCH (21:01)
[2019-09-26] MEDS: ALBUTEROL 90 MCG/ACT 8GM HFA INHALER INH PRN (22:18)
[2019-09-26] MEDS: IPRATROPIUM HFA INHALER 12.9 GRAMS (ATROVENT HFA) INH PRN (22:19)
[2019-09-27] VITALS: BP 119/65
[2019-09-27 04:00] VITALS: BP 115/53
[2019-09-27 06:24] LABS: CALCIUM LEVEL 9.2 MG/DL (8.8-10.2); CREATININE FOR GFR 10.8 MG/DL (0.70-1.30); POTASSIUM SERUM 3.8 MEQ/L (3.5-5.1); VANCOMYCIN RANDOM 7.4 UG/ML
[2019-09-27 07:14] VITALS: BP 118/60
[2019-09-27] MEDS: TIOTROPIUM INHALER/CAPSULE (SPIRIVA) INH SCH (07:47)
[2019-09-27] MEDS: ALBUTEROL 90 MCG/ACT 8GM HFA INHALER INH PRN (07:53)
[2019-09-27] MEDS: (RENVELA) SEVELAMER **CARBONate** 800 MG TAB PO SCH ×2 (08:50→18:00)
[2019-09-27] MEDS: HEPARIN SOD (PORCINE) 5000UNITS/ML VIAL (J1644 PER 1000UNITS) SQ SCH ×4 (08:50→23:39)
[2019-09-27] MEDS: POTASSIUM CHLORIDE 10 MEQ SR TABLET PO SCH ×2 (08:50→21:02)
[2019-09-27] MEDS: MULTIVITAMINS/MINERALS THERAP 1 TAB PO SCH (08:50)
[2019-09-27] MEDS: OMEPRAZOLE 20 MG CAP PO SCH (08:50)
[2019-09-27] MEDS: CLOPIDOGREL 75 MG TAB PO SCH (08:50)
[2019-09-27] MEDS: SENOKOT S TAB PO SCH ×2 (08:51→21:01)
[2019-09-27] MEDS: MIRALAX *UNIT DOSE* 17GM PACKET PO SCH (08:51)
[2019-09-27] MEDS: LIDOCAINE 5% (LIDODERM) PATCH TD SCH (08:52)
--- NOTE | 2019-09-27 08:54 | IPNPDOC ---
Text Note Date of Service The patient was seen on 09/27/19. NOTE Vascular surgery Dr. Canseco Patient seen and examined, now 14 days status post left first toe ray amputation. Fortunately the patient is much more alert and conversive today off of the gabapentin and tramadol. The patient states he is doing much better today. He is sitting up in bed and eating breakfast. On exam, the patient is afebrile. His left foot amputation incision appears to be unchanged and appears to be healing. The sutures are intact. There is no drainage or fluctuance, no induration, no erythema. At the distal most aspect of the incision near the second toe, some of the skin is dark, this appears to be able and unchanged. The incision was cleaned and dried. Dressings were applied. The patient tolerated this well. No leukocytosis. Repeat lactic acid 09/26/19 was 1.8 Blood culture negative 24 hours. Peritoneal fluid culture pending. Chest x-ray no acute abnormality. Dr. Donohue is following right toe wound/dry gangrene, he was seen by Dr. Axel matson 09/24/19 regarding the right great toe wound. No intervention recommended at this time. The patient was started on IV Vanco/Zosyn as per nephrology 09/25. The patient has been reviewed with Dr. Canseco, it is felt unlikely that the patient's left foot surgical site is the source of infection at this time, there is no fluctuance, no drainage, no leukocytosis. CT scan bilateral feet with contrast is ordered as per nephrology and is pending at this time. Mental status has improved off gabapentin and tramadol and we will need to find a balance with pain control and the patient's mental status which is challenging in this patient as he is very sensitive to medication. Will continue to closely follow. VS,Fishbone, I+O VS, Fishbone, I+O Laboratory Tests 09/27/19 05:40 Vital Signs Date Time Temp Pulse Resp B/P (MAP) Pulse Ox O2 Delivery O2 Flow Rate FiO2 09/27/19 07:14 97.1 89 20 118/60 (79) 93 Room Air I&O- Last 24 Hours up to 6 AM 09/27/19 06:00 Intake Total 94008 ml Output Total 49412 ml Balance 3821 ml Puja Garcia Sep 27, 2019 08:54
[2019-09-27] MEDS: PIPERACILLIN/TAZOBACTAM SOD 2.25 GM in D5W MINI-BAG PLUS 50 ML IV SCH ×2 (09:00→21:01)
[2019-09-27] MEDS ORDERED: VANCOMYCIN HCL 1,000 MG, VIAL MATE ADAPTER 1 EACH in D5W 250 ML IV ONE (09:00)
[2019-09-27 09:12] LABS: BASO % 0.5 % (0.0-1.0); EOS # 0.8 10^3/uL (0.0-0.5); EOS % 10.2 % (0.0-3.0); HEMOGLOBIN 10.4 g/dl (13.5-17.5); LYMPH # 2.2 10^3/uL (1.5-5.0); LYMPH % 29.9 % (24.0-44.0); MEAN CORPUSCULAR HEMOGLOBIN 32.4 pg (27.0-33.0); MEAN CORPUSCULAR HGB CONC 32.5 g/dl (32.0-36.5); MEAN CORPUSCULAR VOLUME 99.7 fl (80.0-96.0); MONO # 0.5 10^3/uL (0.0-0.8); MONO % 7.3 % (0.0-5.0); NEUTROPHILS # 3.8 10^3/uL (1.5-8.5); NEUTROPHILS % 51.7 % (36.0-66.0); PLATELET COUNT, AUTOMATED 267 10^3/uL (150-450); RED BLOOD COUNT 3.21 10^6/uL (4.30-6.10); WHITE BLOOD COUNT 7.4 10^3/uL (4.0-10.0)
--- NOTE | 2019-09-27 10:31 | IPN ---
DATE OF SERVICE: 09/26/2019 SUBJECTIVE: The patient was seen and examined at the bedside today morning in the progressive care unit. Last 24-hour events were noted. The patient became more obtunded and confused yesterday. He was transferred to the progressive care unit. When I saw him in the morning, he was very obtunded. He was very difficult to arouse, and he was answering very few questions. The patient required my immediate attention. Head-to-toe examination was done, and laboratories were reviewed. The patient's lactic acid was done overnight which was high at 2.6, and repeat one was 3.4. I saw that no intravenous (IV) fluids were given to the patient. At once (STAT) normal saline 1 liter bolus was ordered, and cultures were ordered, and the patient was given first dose of empiric broad-spectrum antibiotic including vancomycin and Zosyn. The patient was then unable to provide any reliable review of systems. OBJECTIVE: Vital signs: Temperature is 97.2 degrees Fahrenheit, blood pressure is 112/77, pulse is 80, respiratory rate of 18, saturating 100% on room air. Intake and output: There is no urine output recorded. Weight in the bed scale today morning was 73.4 kg. The patient is not getting much ultrafiltration with the peritoneal dialysis. PHYSICAL EXAMINATION: General: The patient is very obtunded, drowsy, sleepy, difficult to arouse, laying in bed. Head and neck examination: Pupils are equally round and reactive to light. Mucous membranes are dry. Neck is supple. There is no jugular venous distention (JVD). Cardiovascular: S1, S2, regular rate. No edema of the bilateral lower extremities. Respiratory: The patient has poor inspiratory effort. Otherwise, I could not appreciate any inspiratory crackles or rhonchi. Abdomen is soft. He has peritoneal dialysis catheter. Belly is nontender. Genitourinary: Bladder is nonpalpable. Musculoskeletal: The patient has no edema. His right foot was examined. He has gangrene of the right big toe, which is dry gangrene. I could not appreciate any crepitus or fluctuation in the foot. Left foot was also examined. There are sutures from a left big toe amputation site. I could not appreciate any pus, fluctuation, or fluid collection. 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 He answers very few questions, but he is able to move extremities when he wakes up. LABORATORY REVIEW: Complete blood count (CBC) showed a WBC of 9.6, hemoglobin 10.6, platelets are 286. Peritoneal fluid cell count was done today, and it had a WBC of 3. Venous blood gas (VBG) was done yesterday, which showed a pH of 7.34. Basic metabolic profile (BMP) done today morning showed sodium 133, potassium 5.1, chloride 97, bicarbonate 27, BUN 39, creatinine is 11.1, lactic acid today morning was 3.4, calcium was 9.3. MICROBIOLOGY: Blood cultures are negative so far. Peritoneal fluid Gram stain showed no organisms. A STAT chest x-ray was done at the bedside, which showed no acute disease. CURRENT INPATIENT MEDICATIONS: The patient's medications were all reviewed by me. I gave him a normal saline 1 liter bolus today morning. He has been started on IV vancomycin and IV Zosyn. No other significant change in the medications today as compared with yesterday. ASSESSMENT AND PLAN: 1. Dehydration and lactic acidosis. The patient was given STAT fluids and empiric antibiotics, and cultures have been sent. Acute peritonitis was ruled out. CAT scan of the foot with contrast has been ordered. Results are pending. No clear source of infection is known at this time. 2. End-stage renal disease. The patient was getting five manual exchanges a day. One of them was 2.5%. I have changed all of the manual exchanges to 1.5% because of volume depletion. 3. Peripheral vascular disease, status post left big toe amputation. The patient is getting wound care by vascular surgery. The wound was seen, and it is very clean now. 4. Right big toe gangrene. There is a possibility of the patient getting septic from the right big toe. CAT scan result is pending. He is empirically covered with vancomycin and Zosyn. 5. Anemia secondary to end-stage renal disease. Continue current dose of Aranesp. Hemoglobin level is optimal. 6. Metabolic encephalopathy. It is more than likely secondary to combination of dehydration, lactic acidosis, and use of gabapentin which has already been stopped. Continue to monitor the patient in the progressive care unit at this time. TOTAL CRITICAL CARE TIME SPENT: In the management of this patient today morning in the progressive care unit was 50 minutes.
[2019-09-27] MEDS ORDERED: ISOVUE-370 76% 100ML VIAL As Ordered ONE (11:44)
[2019-09-27 12:00] VITALS: BP 113/70
--- NOTE | 2019-09-27 12:28 | IPNPDOC ---
Date Seen The patient was seen on 09/27/19. Progress Note SUBJECTIVE: Patient was noted to be sedated this morning again, gabapentin had been disco ntinued and didn't get any yesterday. There was a concern for patient having R. facial droop this morning while he was sleeping with his face leaned to the R. side. When head was respositioned, it went away. Patient responsive but sleepy at this time. Noted to woke up at 4AM today. WBC 10.4, lactic acidosis had resolved yesterday after IVF. Remain on broad spectrum antibiotics. CT LE ordered for suspicion for RLE as a potential source. OBJECTIVE PHYSICAL EXAMINATION: VITAL SIGNS: Please see below. General: Responsive but lethargic Eyes: Normal sclera, EOMI HENT: Atraumatic Cardiovascular: Normal rate Pulmonary: Clear to auscultation b/l, no wheezing GI: Soft, nondistended, PD catheter in place Skin: Warm and dry. darkened skin in b/l feet with dry scaly skin at distal tip of R. large toe. Neuro: lethargic, generalized weakness. LABORATORY DATA, IMAGING STUDIES, MICROBIOLOGY: Please see below. DVT prophylaxis ordered?: HSQ ASSESSMENT AND PLAN: 1. L. 1st toe infection s/p ray amputation - vascular surgery has been following. Tramadol discontinued due to suspected increased lethargy. Gabapentin was also tried but discontinued for the same reason. - also has tylenol but unable to change to other medications as reported intolerance to any opiates and NSAIDs. - c/w PT/OT as tolerated. 2. PVD - c/w atorvastatin and Plavix. - R. distal big toe also darkened, likely may need to be removed as well in the future. Had been seen by Podiatry while inpatient. 3. ESRD on peritoneal dialysis - dialysis per nephro recommendations/management. 4. CAD - c/w statin. 5. Hypotension - baseline low BP, continue to monitor. - May be due to dehydration as well, give small amount of IVF if needed. 6. Intermittent lethargy - Continue to have intermittent episodes of lethargy throughout the day. Inconsistent sleep patterns. Also concern for polypharmacy but most pain/sed ative meds have been discontinued and patient still have these episodes. I do not think meds are completely causing these episodes. - Avoid any potential agents that can cause sedation, unfortunately the majority of pain medications. - Lactic acidosis noted initially and has since resolved. Continue with vancomycin and Zosyn for now. - Blood cultures are negative to date. Peritoneal fluid shows no evidence of infection. CXR also shows no acute changes. - f/u foot CT to assess potential source. Dispo: Patient was deem unsafe for home. However, patient and does not want patient to be placed in Rehab and persistent on trying to take care of patient at home. Both think that he can be managed at home as they have been doing this for a period of time. Patient states that he does have episodes of lethargy at home too but does come out of it and can actually manage. VS, I&O, 24H, Fishbone Vital Signs/I&O Vital Signs Date Time Temp Pulse Resp B/P (MAP) Pulse Ox O2 Delivery O2 Flow Rate FiO2 09/27/19 07:14 97.1 89 20 118/60 (79) 93 Room Air I&O- Last 24 Hours up to 6 AM 09/27/19 06:00 Intake Total 61969 ml Output Total 02635 ml Balance 3821 ml Laboratory Data 24H LABS Laboratory Tests 2 09/26/19 12:43: Body Fluid Source PERITONEAL DIALYSATE, Body Fluid WBC (Auto) 3, Body Fluid RBC (Auto) < 2, Peritoneal Fluid Color COLORLESS, Peritoneal Fluid Appearance CLEAR 09/26/19 12:50: Lactic Acid Level 1.8 09/26/19 12:51: Magnesium Level 3.1H 09/27/19 05:40: Immature Granulocyte % (Auto) 0.4, Neutrophils (%) (Auto) 51.7, Lymphocytes (%) (Auto) 29.9, Monocytes (%) (Auto) 7.3H, Eosinophils (%) (Auto) 10.2H, Basophils (%) (Auto) 0.5, Neutrophils # (Auto) 3.8, Lymphocytes # (Auto) 2.2, Monocytes # (Auto) 0.5, Eosinophils # (Auto) 0.8H, Basophils # (Auto) 0.0, Nucleated Red Blood Cells % (auto) 0.0, Anion Gap 10, Glomerular Filtration Rate 6.0L, Calcium Level 9.2, Random Vancomycin Level 7.4 CBC/BMP Laboratory Tests 09/27/19 05:40 Microbiology Microbiology 09/26/19 Gram Stain - Final, Resulted 09/26/19 Body Fluid Culture, Resulted Pending 09/26/19 Blood Culture - Preliminary, Resulted No growth after 24 hours . All specim... 09/25/19 Blood Culture - Preliminary, Resulted No growth after 24 hours . All specim... DALLAS FRANCE MD Sep 27, 2019 12:28
[2019-09-27] MEDS: ACETAMINOPHEN TAB 650MG DOSE (2X325MG) PO PRN ×2 (12:39→17:40)
--- NOTE | 2019-09-27 14:15 | REP ---
CT BILATERAL FEET WITH CONTRAST: CT exam of bilateral feet performed following the intravenous administration of 100 mL of Isovue 370. Sagittal and coronal reconstruction images are performed bilaterally. RIGHT FOOT: There is no evidence of fracture or dislocation. I seen no evidence of cortical destruction or periosteal reaction, with no evidence for osteomyelitis. There is mild inferior calcaneal spurring. There is mild narrowing and spurring at the talonavicular joint. There are diffuse vascular calcifications present. There is mild joint space narrowing, subchondral sclerosis and spurring at the 1st metatarsophalangeal joint as well as 2nd metatarsophalangeal joint. There is air in the space between the nail of the 1st toe and the adjacent distal phalanx. There is soft tissue edema of the 1st toe. No abscess collection is seen in the soft tissues. There is mild to moderate focal fluid along the flexor hallucis longus tendon in the region of the mid foot. LEFT FOOT: There has been recent amputation of the distal aspect of the 1st metatarsal and 1st toe. There is air in the soft tissues at this location as well as a small amount of fluid and soft tissue edema. Findings may represent postsurgical change but soft tissue infectious process cannot be excluded. There is mild to moderate fluid surrounding the flexor hallucis longus tendon in the mid foot region. No air fluid collection is seen in the soft tissues. Diffuse vascular calcifications are present. There is no fracture or dislocation. I seen no radiographic evidence of osseous destruction or cortical disruption. There is no periosteal reaction. There are mild degenerative changes at the talonavicular joint and second metatarsophalangeal joint. There is diffuse narrowing of the interphalangeal joints. Electronically Signed by Yunior Amin MD 09/27/2019 03:40 P
[2019-09-27 16:00] VITALS: BP 135/76
[2019-09-27] MEDS ORDERED: NS 250 ML IV ONE (17:45)
--- NOTE | 2019-09-27 18:35 | ECGEPIP ---
[facility] Test Date: 2019-09-25 Pat Name: CASSIDY VARGEHSE Department: Room: [place] [address] Gender: Male Process Lead: : 1940 Requested By: GEORGETTE FARRIS Order Number: [id number] Reading MD: Juanito Garcia Measurements Intervals [place] Rate: 88 P: 54 AK: 208 QRS: -41 QRSD: 115 T: 114 QT: 374 QTc: 453 Interpretive Statements SINUS RHYTHM WITH FREQUENT VENTRICULAR PREMATURE COMPLEXES MARKED LEFT AXIS DEVIATION LOW QRS VOLTAGE IN PRECORDIAL LEADS MODERATE INTRAVENTRICULAR CONDUCTION DELAY MINIMAL ST DEPRESSION CONSIDER PRIOR INFERIOR INFARCT CONSIDER PRIOR ANTEROSEPTAL INFARCT Last tracing on 09/16/19 at 9:55. No significant changes Electronically Signed on 09-27-2019 18:35:24 EDT by Juanito Garcia
[2019-09-27 20:00] VITALS: BP 133/60
[2019-09-27] MEDS: ATORVASTATIN 20 MG TAB PO SCH (21:01)
[2019-09-27] MEDS: **NOTE PATIENT COMMENT** MISC XX SCH (21:02)
[2019-09-27] MEDS: ACETAMINOPHEN 500 MG TAB PO PRN (23:41)
[2019-09-28] VITALS: BP 118/73
[2019-09-28 04:00] VITALS: BP 120/60
[2019-09-28 06:02] LABS: CALCIUM LEVEL 8.8 MG/DL (8.8-10.2); CREATININE FOR GFR 10.4 MG/DL (0.70-1.30); GLOMERULAR FILTRATION RATE 6.3 (>42); POTASSIUM SERUM 4.2 MEQ/L (3.5-5.1); VANCOMYCIN RANDOM 15.1 UG/ML
--- NOTE | 2019-09-28 06:48 | IPN ---
DATE OF SERVICE: 09/27/2019 SUBJECTIVE: The patient was seen and examined at the bedside today morning. He is afebrile, hemodynamically much more stable. He is feeling much better today. He was awake and alert and eating his breakfast when I saw him. He was given normal saline bolus yesterday. He was started on empiric IV antibiotics. Cultures were sent. CAT scan of the feet was ordered which is pending at this time. He reports pain in the bilateral feet. Otherwise he denies any active complaints today. OBJECTIVE: Vital Signs: Temperature is 96.3 degrees Fahrenheit, blood pressure 135/76, pulse is 77, respiratory rate of 18, saturating 85% on room air. Intake and Output: The patient's total PD fluid output yesterday was 10,300 mL and so far today is 8300 mL. Weight in the bed scale is 75 kg. PHYSICAL EXAMINATION: General: The patient is awake, alert, oriented x3, laying in bed, in no apparent distress. Head and Neck Exam: Extraocular muscles intact. Pupils equally round and reactive to light. Mucous membranes are moist. Neck is supple. There is no jugular venous distention (JVD). Cardiovascular: S1, S2. Regular rate. No edema of the bilateral lower extremities. Respiratory: Chest is clear to auscultation bilaterally. Bilateral equal air entry. No rales or rhonchi. Abdomen: Soft. Positive bowel sounds. Nontender. No organomegaly. Musculoskeletal: The patient has dressing on both feet. He has gangrene of the right big toe and he has sutures on the left foot from recent left big toe amputation. 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 Power is 5/5 in bilateral upper extremities. The patient is able to communicate. He moves all extremities. LAB REVIEW: CBC showed WBC of 7.4, hemoglobin 10.4 and platelets are 267. BMP showed sodium 137, potassium 3.8, chloride 99, bicarb 28, BUN 36, creatinine is 10.8, calcium is 9.2. Repeat lactic acid last night was 1.8. Microbiology: All the cultures are negative so far. IMAGING: A CAT scan of bilateral feet with contrast was done today which showed soft tissue edema of the first toe. No abscess collection was seen. Left foot showed changes related to recent amputation of the distal first metatarsal and first toe. There was a small amount of fluid and soft tissue edema. There was diffuse vascular calcification in both feet. CURRENT INPATIENT MEDICATIONS: The patient's medications were all reviewed by me. He was given another bolus of normal saline 250 mL. He continues to be on vancomycin and Zosyn. No other change in the medications today as compared with yesterday. ASSESSMENT/PLAN: 1. Dehydration and lactic acidosis. All the sepsis workup so far is negative. Lactic acid improved after IV fluid hydration. He is empirically on IV antibiotics. CAT scan of the feet did not show any fluid collection or pus. Peritoneal infection was ruled out. If cultures come back negative by tomorrow, then IV antibiotics will be stopped. 2. End-stage renal disease. The patient is hemodialysis dependent. He is supposed to be on all exchanges of 2 liters all 1.5%. However, I was told by the nursing staff today that by mistake he was given a peritoneal exchange with 4.25% fluid which is too much for him since he is dehydrated. We are not sure how many exchanges of 4.25% he has received previously by mistake, however, I told the nursing staff to remove all the 4.25% bags from the cart and keep only 1.5% bags in the room because that is the concentration of fluid that he needs for his peritoneal exchanges. 3. Right big toe gangrene. Recent CAT scan did not show any evidence of abscess or subcutaneous gas. He is already covered with IV antibiotics. Pain is being optimized with medications. Rest of the management is as per podiatry recommendations. 4. Peripheral vascular disease status post left big toe amputation. Wound is healing very well and CAT scan also confirmed the findings. Continue wound care per vascular surgery. 5. Anemia in end-stage renal disease. Continue Aranesp. Hemoglobin level is optimal. 6. Metabolic encephalopathy. It was multifactorial secondary to dehydration, lactic acidosis and use of gabapentin. The patient is clinically much more better today.
[2019-09-28] MEDS: TIOTROPIUM INHALER/CAPSULE (SPIRIVA) INH SCH (07:16)
[2019-09-28 08:00] VITALS: BP 100/76
[2019-09-28] MEDS ORDERED: VANCOMYCIN HCL 1,000 MG, VIAL MATE ADAPTER 1 EACH in D5W 250 ML IV ONE (08:00)
[2019-09-28] MEDS: HEPARIN SOD (PORCINE) 5000UNITS/ML VIAL (J1644 PER 1000UNITS) SQ SCH ×3 (08:00→14:44)
[2019-09-28] MEDS ORDERED: VANCOMYCIN HCL 500 MG in D5W MINI-BAG PLUS 100 ML IV ONE (08:00)
--- NOTE | 2019-09-28 08:27 | IPNPDOC ---
Text Note Date of Service The patient was seen on 09/28/19. NOTE Vascular surgery Dr. Canseco Patient seen and examined, now 15 days status post left first toe ray amputation. The pt is awake and conversive. On exam, the patient is afebrile. His left foot amputation incision appears to be unchanged and appears to be healing. The sutures are intact. There is no drainage or fluctuance, no induration, no erythema. At the distal most aspect of the incision near the second toe, some of the skin is dark, this appears to be unchanged. The incision was cleaned and dried. Dressings were applied. The patient tolerated this well. No leukocytosis. Repeat lactic acid 09/26/19 was 1.8 Blood culture negative 48 hours. Peritoneal fluid culture pending. Chest x-ray no acute abnormality. Dr. Donohue is following right toe wound/dry gangrene, he was seen by Dr. Donohue 09/24/19 regarding the right great toe wound. No intervention rec ommended at this time. Mental status remains improved off gabapentin and tramadol and we will need to find a balance with pain control and the patient's mental status which is challenging in this patient as he is very sensitive to medication. Will continue to closely follow. VS,Fishbone, I+O VS, Fishbone, I+O Laboratory Tests 09/28/19 04:56 Vital Signs Date Time Temp Pulse Resp B/P (MAP) Pulse Ox O2 Delivery O2 Flow Rate FiO2 09/28/19 04:00 97.4 75 20 120/60 (80) 95 Room Air I&O- Last 24 Hours up to 6 AM 09/28/19 05:59 Intake Total 00248 ml Output Total 12890 ml Balance 1750 ml Puja Garcia Sep 28, 2019 08:27
[2019-09-28] MEDS: CINACALCET 30 MG TAB (SENSIPAR) PO SCH (09:00)
[2019-09-28] MEDS: MIRALAX *UNIT DOSE* 17GM PACKET PO SCH ×2 (09:00→09:01)
[2019-09-28] MEDS: LIDOCAINE 5% (LIDODERM) PATCH TD SCH (09:00)
[2019-09-28] MEDS: (RENVELA) SEVELAMER **CARBONate** 800 MG TAB PO SCH ×2 (09:01→12:30)
[2019-09-28] MEDS: OMEPRAZOLE 20 MG CAP PO SCH (09:02)
[2019-09-28] MEDS: ACETAMINOPHEN 500 MG TAB PO PRN ×2 (09:02→15:04)
[2019-09-28] MEDS: POTASSIUM CHLORIDE 10 MEQ SR TABLET PO SCH (09:02)
[2019-09-28] MEDS: MULTIVITAMINS/MINERALS THERAP 1 TAB PO SCH (09:02)
[2019-09-28] MEDS: SENOKOT S TAB PO SCH (09:02)
[2019-09-28] MEDS: CLOPIDOGREL 75 MG TAB PO SCH (09:02)
[2019-09-28 12:30] VITALS: BP 133/66
[2019-09-28] MEDS ORDERED: LIDO5TD TD (12:34)
--- NOTE | 2019-09-28 13:05 | DS.PDOC ---
Discharge Summary General Date of Admission Sep 17, 2019 at 13:28 Date of Discharge 09/28/19 Discharge Summary PROCEDURES PERFORMED DURING STAY: [None]. ADMITTING DIAGNOSES: 1. L. toe infection 2. ESRD on peritoneal dialysis 3. PVD 4. chronic CAD 5. GERD DISCHARGE DIAGNOSES: 1. L. toe infection 2. ESRD on peritoneal dialysis 3. PVD 4. chronic CAD 5. GERD COMPLICATIONS/CHIEF COMPLAINT: Atherosclerosis Robinson Vessels Lower Extremities. HISTORY OF PRESENT ILLNESS: "This is a 79-year-old gentleman who had poor wound healing of the left first toe after toenail removal. Today he underwent left first toe ray toe amputation by Dr. Canseco. Postoperatively is experienced quite a bit of swelling and some pain. The patient has had adverse reactions to NSAIDs and opiates in the past and will be admitted overnight in order to optimize his pain medicine regimen." HOSPITAL COURSE: Patient was admitted post op for L. first toe ray amputation by vascular surgery. He had been follows by nephrology, vascular surgery as well as Podiatry during admission. There was difficulty arranging for safe discharge post op as patient remains very weak with limited mobility, which seem to be his baseline. Rehab was recommended to patient and but was refused. Both patient and states that he can be managed at home with home services and does not want to consider for Rehab. During admission, multiple medications were tried for foot pain due to PVD but he seem to have daily episodes of very lethargic and hard to wake and most pain meds were discontinued with worry that it was a contributing factor. I suspect that medication were not contributing significantly to his status. He reportedly did not sleep for about 2 days at one point, stayed up and watched TV and was lethargic the next day but then was doing well for several days after. reports that he does go into very deep sleep and hard to wake. I think this may be his baseline status. He has a dry gangrene R. large toe that is stable, to f/u with vascular/podiatry as outpatient, likely will require amputation as well in the future. Infectious workup was done after a concern for lethargy which does not show any etiology and he does not have any fever or leukocytosis. There was a mild elevation in lactic acid but resolved after IVF resuscitation, likely 2/2 dehydration. Antibiotics was discontinued after all workup returned negative including CT scan of his foot to r/o sourced of infection. Patient is currently very alert and excited to go home. Will discharge patient home with services and PT along with a wheelchair. Follow up with nephrology and PCP post discharge. DISCHARGE MEDICATIONS: Please see below. ALLERGIES: Please see below. PHYSICAL EXAMINATION ON DISCHARGE: VITAL SIGNS: Please see below. General: Alert, no acute distress Eyes: Normal sclera, EOMI HENT: Atraumatic Cardiovascular: Normal rate Pulmonary: Clear to auscultation b/l, no wheezing GI: Soft, nondistended, PD catheter in place Skin: Warm and dry. darkened skin in b/l feet with dry scaly skin at distal tip of R. large toe. Neuro: CN II-XII grossly intact. No focal deficits noted. generalized weakness. LABORATORY DATA: Please see below. IMAGING: CT BILATERAL FEET WITH CONTRAST: CT exam of bilateral feet performed following the intravenous administration of 100 mL of Isovue 370. Sagittal and coronal reconstruction images are performed bilaterally. RIGHT FOOT: There is no evidence of fracture or dislocation. I seen no evidence of cortical destruction or periosteal reaction, with no evidence for osteomyelitis. There is mild inferior calcaneal spurring. There is mild narrowing and spurring at the talonavicular joint. There are diffuse vascular calcifications present. There is mild joint space narrowing, subchondral sclerosis and spurring at the 1st metatarsophalangeal joint as well as 2nd metatarsophalangeal joint. There is air in the space between the nail of the 1st toe and the adjacent distal phalanx. There is soft tissue edema of the 1st toe. No abscess collection is seen in the soft tissues. There is mild to moderate focal fluid along the flexor hallucis longus tendon in the region of the mid foot. LEFT FOOT: There has been recent amputation of the distal aspect of the 1st metatarsal and 1st toe. There is air in the soft tissues at this location as well as a small amount of fluid and soft tissue edema. Findings may represent postsurgical change but soft tissue infectious process cannot be excluded. There is mild to moderate fluid surrounding the flexor hallucis longus tendon in the mid foot region. No air fluid collection is seen in the soft tissues. Diffuse vascular calcifications are present. There is no fracture or dislocation. I seen no radiographic evidence of osseous destruction or cortical disruption. There is no periosteal reaction. There are mild degenerative changes at the talonavicular joint and second metatarsophalangeal joint. There is diffuse narrowing of the interphalangeal joints. Head CT- IMPRESSION: 1. No CT evidence of acute intracranial pathology. 2. Additional findings, as above. ACTIVITY: [As tolerated]. DIET: Regular DISCHARGE PLAN: f/u PCP, nephrology, vascular surgery and podiatry DISPOSITION: Home with services including PT. Prescription for wheelchair written. DISCHARGE INSTRUCTIONS: f/u PCP, nephrology, vascular surgery and podiatry ITEMS TO FOLLOWUP ON ON OUTPATIENT: None DISCHARGE CONDITION: [Stable]. TIME SPENT ON DISCHARGE: 40 minutes. Vital Signs/I&Os Vital Signs Date Time Temp Pulse Resp B/P (MAP) Pulse Ox O2 Delivery O2 Flow Rate FiO2 09/28/19 12:30 97.1 85 18 133/66 (88) 97 Room Air I&O- Last 24 Hours up to 6 AM 09/28/19 06:00 Intake Total 08115 ml Output Total 33786 ml Balance 2050 ml Laboratory Data Labs 24H Laboratory Tests 2 09/28/19 04:56: Anion Gap 9, Glomerular Filtration Rate 6.3L, Calcium Level 8.8, Random Vancomycin Level 15.1 CBC/BMP Laboratory Tests 09/28/19 04:56 Microbiology Microbiology 09/26/19 Gram Stain - Final, Complete 09/26/19 Body Fluid Culture - Final, Complete 09/26/19 Blood Culture - Preliminary, Resulted No Growth after 48 hours. All Specime... 09/25/19 Blood Culture - Preliminary, Resulted No Growth after 48 hours. All Specime... Discharge Medications Scheduled Atorvastatin Calcium (Atorvastatin Calcium) 40 Mg Tablet, 40 MG PO QHS, (Reported) Cinacalcet HCl (Sensipar) 60 Mg Tablet, 60 MG PO 3XWP, (Reported) Clopidogrel Bisulfate (Clopidogrel) 75 Mg Tablet, 75 MG PO DAILY, (Reported) Docusate Sodium (Colace) 100 Mg Capsule, 100 MG PO BIDP, (Reported) Epoetin [place] (Epogen) 20,000 Unit/1 Ml Vial, 20,000 UNIT INJ ASDIRECTED, (Reported) EVERY 2 WEEKS Heparin Sodium,Porcine/Pf (Heparin 1,000 Unit/10 (100/ml)) 1,000 Unit/10 Ml Syringe, 1,500 UNIT IV QWEEK, (Reported) GIVEN AT DIALYSIS ON MONDAYS Lidocaine (Lidocaine) 5% Adh..patch, 1 PATCH TD DAILY Multivitamins (Thera M Plus Tablet) 1 Each Tablet, 1 TAB PO DAILY, (Reported) Omeprazole (Omeprazole) 20 Mg Capsule.dr, 20 MG PO DAILY, (Reported) Potassium Chloride (K-Tab ER) 10 Meq Tablet.er, 20 MEQ PO DAILY, (Reported) Sevelamer Carbonate (Renvela) 800 Mg Tablet, 800 MG PO WM, (Reported) Scheduled PRN Ipratropium/Albuterol Sulfate (Iprat-Albut 0.5-3(2.5) mg/3 ml) 3 Ml Ampul.neb, 1 VIAL NEB Q4H PRN for SOB/WHEEZING, (Reported) Tiotropium [place] (Spiriva) 18 Mcg Cap.w.dev, 18 MCG INH DAILY PRN for SOB/WHEEZING, (Reported) Allergies Coded Allergies: amlodipine (Verified Allergy, Unknown, 09/07/19) indomethacin (Verified Allergy, Unknown, 09/07/19) nifedipine (Verified Allergy, Unknown, 09/07/19) NSAIDS (Non-Steroidal Anti-Inflamma (Verified Adverse Reaction, Intermediate, RECTAL BLEEDING, 09/07/19) TAKES 81MG ASA AT HOME FINE hydralazine (Verified Adverse Reaction, Mild, ELEVATED BP, 09/07/19) Opioids - Morphine Analogues (Verified Adverse Reaction, Unknown, DIALYSIS PT, 09/14/19) minoxidil (Verified Adverse Reaction, Unknown, SWELLING, 09/07/19) DALLAS FRANCE MD Sep 28, 2019 13:05
--- NOTE | 2019-09-29 12:49 | IPN ---
DATE: 09/28/2019 SUBJECTIVE: The patient was seen and examined at the bedside today morning. He is afebrile, hemodynamically stable, much more awake and alert. He was eating his breakfast when I saw him in the morning. His only complaint is pain in both feet. Otherwise, he denies any active complaints. OBJECTIVE: Vital signs: Temperature is 97.1 degrees Fahrenheit, blood pressure 133/66, pulse is 85, respiratory rate of 18, saturating 97% on room air. Intake and output: The patient does not make any urine. His weight in the bed scale was 75.1 kg. PHYSICAL EXAMINATION: GENERAL: The patient is awake, alert, oriented times three. Mild painful distress, sitting up in the bed. HEAD AND NECK: Extraocular muscles intact. Pupils equally round and reactive to light. Mucous membranes are moist. Neck is supple. There is no jugular venous distention (JVD). CARDIOVASCULAR: S1, S2, regular rate. No edema of the bilateral lower extremities. RESPIRATORY: Chest is clear to auscultation bilaterally. Bilateral equal air entry. No rales or rhonchi. ABDOMEN: Soft, positive bowel sounds. Nontender. No organomegaly. MUSCULOSKELETAL: The patient has dressing on bilateral feet. Right big toe has gangrene and left foot has sutures at the surgical site. CENTRAL NERVOUS SYSTEM: No focal deficit. Power is 5/5 in bilateral upper extremities. LABORATORY REVIEW: CBC is from yesterday. BMP done today morning showed sodium 134, potassium 4.2, chloride 97, bicarbonate 28, BUN 33, creatinine is 10.4. Microbiology: All the cultures are negative so far. CURRENT INPATIENT MEDICATIONS: The patient's medications were all reviewed by me. Intravenous (IV) Zosyn and vancomycin were stopped today morning. ASSESSMENT AND PLAN: 1. End-stage renal disease. The patient is hemodialysis dependent. Because of dehydration he is only getting 1.5% manual exchanges. When he is discharged he can go back to his home cycler regimen. 2. Right big toe gangrene. CT scan ruled out any abscesses or subcutaneous infection. IV vancomycin and Zosyn and being stopped. Rest of the management will be done by podiatry as outpatient. 3. Peripheral vascular disease status post left big toe amputation. Wound is healing well. Antibiotics have been stopped. Rest of the management is as per vascular surgery. Pain optimization is with oral medications. 4. Anemia and end-stage renal disease. Continue Aranesp. Hemoglobin level is stable. DISPOSITION: The patient is optimized from nephrology standpoint to be discharged home. He will be followed up as outpatient in PD clinic.
== END 2019-09-28 17:34 | disposition home health service (06) | DRG 255 ==
LOC: M SDC 10:40 → M MSPAV 17:45 → OBSVTOIN 09-17 13:28 → M PCU 09-25 21:07
PROVIDERS: ADMIT Surgery Vascular Surgery; ATTEND Student in an Organized Health Care Education/Training Program
PROC: 3E1M39Z Irrigation of Peritoneal Cavity using Dialysate, Percutaneous Approach (ICD-10-PCS; 2019-09-14)
PROC: 0Y6Q0Z0 Detachment at Left 1st Toe, Complete, Open Approach (ICD-10-PCS; principal; 2019-09-14 12:20)
DX: I70.262 Atherosclerosis of native arteries of extremities with gangrene, left leg (principal); N18.6 End stage renal disease; G93.41 Metabolic encephalopathy; I50.32 Chronic diastolic (congestive) heart failure; N25.81 Secondary hyperparathyroidism of renal origin; E87.1 Hypo-osmolality and hyponatremia; E87.2 Acidosis; L97.518 Non-pressure chronic ulcer of other part of right foot with other specified severity; I25.10 Atherosclerotic heart disease of native coronary artery without angina pectoris; D63.1 Anemia in chronic kidney disease; Z85.528 Personal history of other malignant neoplasm of kidney; Z90.5 Acquired absence of kidney; I95.89 Other hypotension; I27.20 Pulmonary hypertension, unspecified; E87.6 Hypokalemia; I35.8 Other nonrheumatic aortic valve disorders; Z87.891 Personal history of nicotine dependence; M10.9 Gout, unspecified; K21.9 Gastro-esophageal reflux disease without esophagitis; Z79.02 Long term (current) use of antithrombotics/antiplatelets; Z79.899 Other long term (current) drug therapy; Z88.1 Allergy status to other antibiotic agents; Z88.8 Allergy status to other drugs, medicaments and biological substances; Z88.6 Allergy status to analgesic agent; Z88.5 Allergy status to narcotic agent; Z99.2 Dependence on renal dialysis; Z79.82 Long term (current) use of aspirin; G89.18 Other acute postprocedural pain; E86.0 Dehydration; T43.8X5A Adverse effect of other psychotropic drugs, initial encounter; R53.83 Other fatigue

== ENCOUNTER 2019-11-21 11:59 | Inpatient (IN) | payer MEDICARE, OTHER ==
[~2019-11-21] VITALS: Ht 172.7 cm; Wt 76.2 kg
[~2019-11-21 11:59] MED LIST changes: -ASPI81TA85 PO; +ASPI81TA86 PO; +D31000TA2 PO; +K-TA10TA PO; +LIDO5TD TD; -LIDOCAINE 1% MDV 20ML VIAL SQ PRN; -LIDOCAINE 2% 100MG/5ML SDV (FOR ANES.) As Ordered ONE; -LR 1,000 ML IV ONE; -MIDAZOLAM INJ 2MG/2ML VIAL (J2250 PER 1MG) As Ordered ONE; -ONDANSETRON 4MG/2ML VIAL As Ordered ONE; -VITAD1000T PO; -ceFAZolin SOD 2 GM in IV 1 EA IV ONE; -fentaNYL 100 MCG/2 ML INJECTION (J3010) As Ordered ONE; -propofoL 200 MG/20 ML VIAL As Ordered ONE
[2019-11-21] MEDS ORDERED: ceFAZolin 2 GM/D5W 50 ML IV BAG (J0690 PER 500MG) As Ordered ONE (12:09)
[2019-11-21] MEDS ORDERED: BUPIVACAINE/EPIN 0.5% 30 ML VIAL As Ordered ONE (12:28)
[2019-11-21] MEDS ORDERED: PLAV1TAB2 PO (12:30)
[2019-11-21] MEDS ORDERED: MIDO5TA PO (12:30)
[2019-11-21] MEDS ORDERED: HYDR-4429 PO (12:30)
[2019-11-21] MEDS ORDERED: ASPI81TA86 PO (12:30)
[2019-11-21] MEDS ORDERED: CISATRACURIUM 2MG/ML 5ML VIAL As Ordered ONE ×2 (13:07→14:51)
[2019-11-21] MEDS ORDERED: fentaNYL 250 MCG/5 ML INJECTION (J3010) As Ordered ONE (13:09)
[2019-11-21] MEDS ORDERED: ONDANSETRON 4MG/2ML VIAL As Ordered ONE (13:09)
[2019-11-21] MEDS ORDERED: MIDAZOLAM INJ 2MG/2ML VIAL (J2250 PER 1MG) As Ordered ONE (13:09)
[2019-11-21] MEDS ORDERED: LIDOCAINE 2% 100MG/5ML SDV (FOR ANES.) As Ordered ONE (13:09)
[2019-11-21] MEDS ORDERED: propofoL 200 MG/20 ML VIAL As Ordered ONE (13:09)
[2019-11-21] MEDS ORDERED: dexameTHASONE 4 MG/ML 1ML VIAL (J1100 PER 1MG) As Ordered ONE (13:09)
[2019-11-21 13:19] LABS: HEMATOCRIT 29.3 % (42.0-52.0); MEAN CORPUSCULAR HEMOGLOBIN 32.3 pg (27.0-33.0); MEAN CORPUSCULAR HGB CONC 34.1 g/dl (32.0-36.5); MEAN CORPUSCULAR VOLUME 94.5 fl (80.0-96.0); PLATELET COUNT, AUTOMATED 298 10^3/uL (150-450); WHITE BLOOD COUNT 8.9 10^3/uL (4.0-10.0)
[2019-11-21 13:30] LABS: PROTHROMBIN TIME 13.4 SECONDS (11.8-14.0)
[2019-11-21] MEDS ORDERED: LIDOCAINE 2% MDV 20ML VIAL As Ordered ONE (13:30)
[2019-11-21] MEDS ORDERED: BUPIVACAINE HCL 0.5% 30 ML VIAL As Ordered ONE (13:30)
[2019-11-21] MEDS ORDERED: HEPARIN SOD (PORCINE) 5000UNITS/ML 1ML VIAL/SYRINGE As Ordered ONE (13:30)
[2019-11-21 13:31] LABS: PARTIAL THROMBOPLASTIN TIME 38.7 SECONDS (25.0-38.4)
[2019-11-21 13:46] LABS: CREATININE FOR GFR 9.45 MG/DL (0.70-1.30); POTASSIUM SERUM 3.2 MEQ/L (3.5-5.1)
[2019-11-21] MEDS ORDERED: PHENYLEPHRINE 10MG/ML 1ML VIAL (J2370 PER 1) As Ordered ONE (14:15)
[2019-11-21] MEDS ORDERED: GLYCOPYRROLATE INJ 0.2 MG/ML 2 ML VIAL As Ordered ONE ×2 (14:33→14:43)
[2019-11-21] MEDS ORDERED: NEOSTIGMINE 10MG/10ML VIAL (J2710 PER 0.5MG) As Ordered ONE (14:43)
[2019-11-21] MEDS ORDERED: ceFAZolin 2 GM/D5W 50 ML IV BAG (J0690 PER 500MG) IV ONE (15:30)
--- NOTE | 2019-11-21 16:40 | ROOPDOC ---
[facility] Report Of Operation Report of Operation DATE OF PROCEDURE: 11/21/19 PREPROCEDURE DIAGNOSES: 1. End stage renal disease 2. Atherosclerosis of the [place] arteries with ischemic left foot POSTPROCEDURE DIAGNOSES: Same PROCEDURE: 1. US guided access L IJ 2. Placement of a 23cm tunneled L IJ permcath 3. L BKA SURGEON: Fallon Canseco MD ANESTHESIA: GETA and local INDICATION FOR PROCEDURE: This is a very pleasant 79-year-old patient with long- standing severe bilateral lower extremity peripheral vascular disease status post left first toe ray amputation, which failed to heal and he progressed to a dehisced incision distally with dry gangrene over the second toe and the medial foot. The patient has end-stage renal disease and usually dialyzes with peritoneal dialysis, after surgery on this admission, he will likely need acute rehabilitation admission which will require hemodialysis instead. Therefore, the risks benefits and alternatives to a left below-knee versus above-knee amputation and a PermCath placement were explained to the patient. He is agreeable to proceed. Informed consent was obtained. INTERPRETATION: Fluoroscopic images were obtained during PermCath placement. There were no kinks in the catheter, the tip of the catheter was freely mobile in the right atrial SVC junction. No pneumothorax was present. It is okay to use the catheter for hemodialysis. REPORT OF OPERATION: The patient was brought to the operating room in stable condition and placed supine on the OR table. General anesthesia and antibiotics were administered without complication. Ultrasound was used to examine both jugular veins. I did not visualize flow in his right internal jugular vein, therefore we selected his left internal jugular vein for the PermCath procedure. His left neck and chest were prepped and draped in a sterile fashion. A timeout was performed. Local anesthesia was administered to the skin and subcutaneous tissue over the left neck, the clavicle, and onto the chest for PermCath placement. A microneedle was used to access the left jugular vein under ultrasound guidance. A wire was passed through this access under fluoroscopic guidance. The needle was removed and a micro-sheath was placed. A small incision was made at the jugular access. The wire was exchanged for an O35 wire under fluoroscopic guidance and advanced into the SVC, then the IVC. We then made a counterincision 1 cm below the clavicle on the left chest. We then performed 2 serial dilations over the wire using a Seldinger technique at the jugular access site. A peel-away sheath was then placed over the wire into the SVC. The inner cannula and wire were removed. We then tunneled a 23 cm PermCath from the left chest over the clavicle to the jugular access site. The tips were advanced through the peel-away sheath into the central system in the peel-away sheath was removed. Both ports kia back and flushed easily and were heparin locked. Images were obtained, and there were no kinks in the catheter, the tips were freely mobile in the right atrial SVC junction. No pneumothorax was present. The jugular access site was closed with a deep and superficial interrupted Monocryl suture. Dermabond was placed at the skin. Prolene suture was used to close the exit site on the left chest and to secure the catheter to the chest wall in 2 places. Sterile dressings were then applied. Following this, we prepped and draped the left lower extremity in a sterile fashion. An additional timeout was performed. A marking pen was used to marked aborters for a below-knee amputation. The anterior aspect was 15 cm distal to the tibial plateau in the posterior flap was very long in length to the ankle. Upon incising the skin with the skin knife, we did note decent tissue perfusion. Upon further dissection down to the muscle on the posterior flap, the muscle was pink viable and responded well to Bovie. Therefore, I felt it was worthwhile to try a below-knee amputation as perfusion seemed adequate. Bovie cautery was used to continue the dissection through the subcutaneous tissue fascia and muscle on the anterior and posterior aspect of the leg. The tibia was skeletonized proximally an additional 4 cm. The fibula was skeletonized proximally 4 cm. Neurovascular bundles were suture ligated and divided. The tibia was transected at 12 cm length, and the anterior aspect was beveled with the bone saw. The fibula was transected at 10 cm length. A rasp was used to smooth the edges of both bones. We continued our dissection along the posterior flap with Bovie cautery and the leg was sent for pathology. Suture ligation and Bovie cautery were used for hemostasis on the flap. Nerves were high ligated and local anesthesia was administered around the perineural tissue. Copious amounts of irrigation were used to thoroughly clean the amputation site. The posterior flap was trimmed for tension-free closure. The fascia for the posterior muscle was attached over the tibia to the ronald-ostium anteriorly with [id number] Vicryl sutures. This is to prevent erosion of the bone through the anterior skin and incision. We approximated the deep tissues with [id number] Vicryl sutures. The superficial tissue was irrigated. We then used [id number] Vicryl sutures to close the superficial fascia. Care was taken to make sure there were no gaps in the closure. Nylon mattress sutures were placed to take tension off the skin closure. Skin danielito were used between the nylon sutures as a final skin closure. The incision was clean and dry. Xeroform was placed over the sutures. Fluffs kerlix and an Kaleb wrap were used as a final dressing. The patient was then allowed to awaken from anesthesia was taken to recovery in stable condition. He tolerated the procedure and the anesthesia well. ESTIMATED BLOOD LOSS: Approximately 75 mL. COMPLICATIONS: None SPECIMEN: Left lower leg and foot sent for pathology PLAN: Admit to hospitalist service, analgesia prn, high protein diet to help with healing, podiatry consult RE: pain right toe, dialysis per nephrology- PD vs HD, plan for ARU disposition before home. We appreciate the opportunity to participate in the care of this patient. FALLON CANSECO MD Nov 21, 2019 16:40
[2019-11-21] MEDS ORDERED: ONDANSETRON 4MG/2ML VIAL IV PRN ×2 (16:45→17:15)
[2019-11-21] MEDS ORDERED: HYDROmorphone 2 MG TAB PO PRN (16:45)
[2019-11-21] MEDS ORDERED: fentaNYL 100 MCG/2 ML INJECTION (J3010) IV PRN (17:15)
[2019-11-21] MEDS ORDERED: NS 1,000 ML IV SCH (17:15)
[2019-11-21] MEDS ORDERED: PILL CUTTER 1 EACH XX PRN (17:15)
[2019-11-21] MEDS ORDERED: NORCO, ANEXSIA 5/325MG TABLET (HYDROcodone/ACETAMINOPHEN) PO PRN (17:15)
[2019-11-21 18:00] VITALS: BP 108/68
[2019-11-21 18:30] VITALS: BP 110/77
[2019-11-21] MEDS ORDERED: DOCUSATE SODIUM 100 MG CAP PO PRN (19:15)
--- NOTE | 2019-11-21 19:16 | HPEPDOC ---
[facility] Medical History & Physical Date of Admission Nov 21, 2019 Date of Service: Nov 21, 2019 Attending Physician: DIGNA MIRANDA MD History and Physical CHIEF COMPLAINT: s/p L BKA; R hallux pain HISTORY OF PRESENT ILLNESS: 79 yo M with a hx of renal call carcinoma, s/p bilateral nephrectomies, presently on HD, CHF, HTN, AOCD, CAD, secondary hyperparathyroidism. Admitted s/p L BKA. Vascular service following. PAST MEDICAL HISTORY: 1. End-stage renal disease on peritoneal dialysis. 2. History of hypertensive nephrosclerosis. 3. Anemia of chronic renal failure. 4. Gout. 5. Congestive heart failure. 6. Hypertension. 7. Pulmonary hypertension 8. Gastroesophageal reflux disease (GERD). 9. Coronary artery disease. 10. History of prostate cancer. 11. Systemic hypertension. 12. Renal cell cancer. PAST SURGICAL HISTORY: 1. Tunneled hemodialysis catheter placement 2. Peritoneal dialysis catheter placement. 3. Status post bilateral nephrectomy. 4. Status post prostatectomy. SOCIAL HISTORY: * Smoker: former Smoker Alcohol: Denies Drugs: denies Recent Travel/Sick Contacts: Denies: Recent travel, Recent sick contacts Ex-smoker, , lives with his . No alcohol or drug use. FAMILY HISTORY: Significant Family History: No pertinent family hx No family history of renal failure requiring dialysis. ALLERGIES: Please see below. REVIEW OF SYSTEMS: Constitutional: Denies: Chills, Fever, Night Sweats Eyes: Denies: Pain, Vision change ENT: Denies: Head Aches, Ear Pain, Dysphagia Skin: Denies: Rash, Lesions, Breakdown Pulmonary: Reports: Dyspnea; Denies: Cough Cardiovascular: Reports: Edema; Denies: Chest Pain, Palpitations, Orthopnea, Paroxysmal Noc. Dyspnea, Lt Headedness Gastrointestinal: Denies: Nausea, Vomiting, Abdominal Pain, Diarrhea Genitourinary: Denies: Dysuria, Frequency, Incontinence, Retention Hematologic: Denies: Bruising, Bleeding Excessively Endocrine: Denies: Polydipsia, Polyphagia, Polyuria, Heat Intolerance, Cold Intolerance, Other Endocrine Sx Musculoskeletal: Denies: Neck Pain, Back Pain, Joint Pain, Muscle Pain, Spasms Neurological: Denies: Weakness, Numbness, Change in speech, Confusion Psych: Reports: Mood Normal; Denies: Depression, Memory Issues HOME MEDICATIONS: Please see below. PHYSICAL EXAMINATION: VITAL SIGNS: stable General Exam: Positive: Alert, No Acute Distress Eye Exam: Positive: PERRLA, Conjunctiva & lids normal, EOMI; Negative: Sclera icteric ENT Exam: Positive: Atraumatic, Mucous membr. moist/pink, Pharynx Normal Neck Exam: Positive: Supple; Negative: JVD, thyromegaly Chest Exam: CTAB Heart Exam: Positive: Rate Normal, Regular Rhythm, Normal S1, Normal S2, M Abdomen Exam: Positive: Normal bowel sounds, Soft; Negative: Tenderness, Hepatospenomegaly Extremity Exam: L BKA. Skin Exam: Positive: Nl turgor and temperature; Negative: Breakdown, Lesion Neuro Exam: Positive: Normal Speech, Strength at 5/5 X4 ext, Cranial Nerves 3- 12 NL Psych Exam: Positive: Mental status NL, Mood NL, Oriented x 3 LABORATORY DATA: See below. MICROBIOLOGY: Please see below. ASSESSMENT: 79 yo M with a hx of renal call carcinoma, s/p bilateral nephrectomies, presently on HD, CHF, HTN, AOCD, CAD, secondary hyperpa rathyroidism. Admitted s/p L BKA. Vascular service following. . PLAN: 1. S/p BKA: pain control, dilaudid 1 mg q4h PO prn. Acetaminophen 1000 mg q8h PO sched. PT/OT. DVT ppx in the am. Will likely need rehab. 2. ESRD on PD: nephro consult. Permacath in place by Dr. Ramirez if HD required. Given need for rehab, HD may be appropriate. Check CMP, Mg, Phos in AM. Renal diet. resume obedelabrian renvela 3. R hallux pain: severe PAD. pain control as above. Vascular service following. Plavix, resume in am. 4. HTN: off BP meds. midodrine. DVT ppx: heparin 5000 units SC to start in AM. Vital Signs Vital Signs Date Time Temp Pulse Resp B/P (MAP) Pulse Ox O2 Delivery O2 Flow Rate FiO2 11/21/19 17:30 97.1 75 18 101/55 (70) 100 Nasal Cannula 2 Laboratory Data Labs 24H Laboratory Tests 2 11/21/19 12:25: Nucleated Red Blood Cells % (auto) 0.0, Prothrombin Time 13.4, Prothromb Time International Ratio 1.00, Activated Partial Thromboplast Time 38.7H, Anion Gap 8, Glomerular Filtration Rate 7.0L, Calcium Level 10.0 CBC/BMP Laboratory Tests 11/21/19 12:25 Home Medications Scheduled Aspirin (Aspir 81) 81 Mg Tablet.dr, 81 MG PO DAILY for pain Atorvastatin Calcium (Atorvastatin Calcium) 40 Mg Tablet, 40 MG PO QHS Cinacalcet HCl (Sensipar) 60 Mg Tablet, 60 MG PO 3XWP Clopidogrel Bisulfate (Clopidogrel) 75 Mg Tablet, 75 MG PO DAILY Clopidogrel Bisulfate (Plavix) 75 Mg Tablet, 75 MG PO DAILY Docusate Sodium (Colace) 100 Mg Capsule, 100 MG PO BIDP Epoetin Irving (Epogen) 20,000 Unit/1 Ml Vial, 20,000 UNIT INJ ASDIRECTED EVERY 2 WEEKS Heparin Sodium,Porcine/Pf (Heparin 1,000 Unit/10 (100/ml)) 1,000 Unit/10 Ml Syringe, 1,500 UNIT IV QWEEK GIVEN AT DIALYSIS ON MONDAYS Midodrine HCl (Midodrine HCl) 5 Mg Tablet, 5 MG PO DAILY Multivitamins (Thera M Plus Tablet) 1 Each Tablet, 1 TAB PO DAILY Omeprazole (Omeprazole) 20 Mg Capsule.dr, 20 MG PO DAILY Potassium Chloride (K-Tab ER) 10 Meq Tablet.er, 20 MEQ PO DAILY Sevelamer Carbonate (Renvela) 800 Mg Tablet, 800 MG PO WM Scheduled PRN Hydrocodone/Acetaminophen (Hydrocodone-Acetamin 5-300 mg) 1 Each Tablet, 1 TAB PO Q6HP PRN for PAIN Ipratropium/Albuterol Sulfate (Iprat-Albut 0.5-3(2.5) mg/3 ml) 3 Ml Ampul.neb, 1 VIAL NEB Q4H PRN for SOB/WHEEZING Allergies Coded Allergies: acetaminophen (Unverified Allergy, Unknown, 11/21/19) amlodipine (Verified Allergy, Unknown, 09/07/19) epoetin beta (Verified Allergy, Unknown, 11/21/19) indomethacin (Verified Allergy, Unknown, 09/07/19) nifedipine (Verified Allergy, Unknown, 09/07/19) oxycodone (Unverified Allergy, Unknown, 11/21/19) NSAIDS (Non-Steroidal Anti-Inflamma (Verified Adverse Reaction, Intermediate, RECTAL BLEEDING, 09/07/19) TAKES 81MG ASA AT HOME FINE hydralazine (Verified Adverse Reaction, Mild, ELEVATED BP, 09/07/19) Opioids - Morphine Analogues (Verified Adverse Reaction, Unknown, DIALYSIS PT, 09/14/19) minoxidil (Verified Adverse Reaction, Unknown, SWELLING, 09/07/19) A-FIB/CHADSVASC A-FIB History Current/History of A-Fib/PAF?: No Current PO Anticoag Therapy: Yes DIGNA MIRANDA MD Nov 21, 2019 19:16
[2019-11-21 19:30] VITALS: BP 90/40
[2019-11-21] MEDS: CINACALCET 30 MG TAB (SENSIPAR) PO SCH (19:46)
[2019-11-21] MEDS: ATORVASTATIN 20 MG TAB PO SCH (19:46)
[2019-11-21] MEDS: diazePAM 5 MG TAB PO PRN (19:50)
[2019-11-21] MEDS: ALBUTEROL SULFATE 2.5 MG/0.5 ML INH NEB SOLN NEB SCH (20:00)
[2019-11-21 20:30] VITALS: BP 90/52
[2019-11-21 21:30] VITALS: BP 88/58
[2019-11-21] MEDS ORDERED: MIDODRINE 5 MG TAB PO ONE (21:30)
[2019-11-21] MEDS: ACETAMINOPHEN 500 MG TAB PO SCH (22:00)
[2019-11-21 22:30] VITALS: BP 90/62
[2019-11-21] MEDS: NORCO, ANEXSIA 5/325MG TABLET (HYDROcodone/ACETAMINOPHEN) PO PRN (23:17)
[2019-11-22] VITALS (7 sets, daily range): BP systolic 106–117; BP diastolic 48–61
[2019-11-22] MEDS: ALBUTEROL SULFATE 2.5 MG/0.5 ML INH NEB SOLN NEB SCH ×4 (01:54→20:34)
[2019-11-22] MEDS: diazePAM 5 MG TAB PO PRN ×2 (02:36→10:03)
[2019-11-22] MEDS: NORCO, ANEXSIA 5/325MG TABLET (HYDROcodone/ACETAMINOPHEN) PO PRN ×3 (05:23→23:05)
[2019-11-22] MEDS: ACETAMINOPHEN 500 MG TAB PO SCH ×3 (05:24→23:07)
--- NOTE | 2019-11-22 07:03 | IPNPDOC ---
Date Seen The patient was seen on 11/22/19. Progress Note SUBJECTIVE: Patient is a -year-old [RACE] [GENDER] with OBJECTIVE PHYSICAL EXAMINATION: VITAL SIGNS: Please see below. GENERAL: NAD, moderate pain. HEENT: PERRLA, EOMI CARDIOVASCULAR: RRR, normal S1, S2, no murmurs. CHEST: L SIDE PERMACATH IN PLACE. DRESSED. NO PAIN AT SITE. RESPIRATORY: Lungs CTAB. No rales, wheezes, or rhonchi. Good inspiratory effort. ABDOMINAL: soft, non tender, BS+, no guarding. PD catheter in situ. EXTREMITIES: no joint deformity, normal ROM NEUROLOGICAL: AAO x 3, no focal neuro deficits PSYCHOLOGICAL: wnl LABORATORY DATA, IMAGING STUDIES, MICROBIOLOGY: Please see below. Echocardiogram: . DVT prophylaxis ordered?: ASSESSMENT: 79 yo M with a hx of renal call carcinoma, s/p bilateral nephrectomies, presently on HD, CHF, HTN, AOCD, CAD, secondary hyperpar athyroidism. Admitted s/p L BKA. Vascular service following. . PLAN: 1. S/p BKA: pain control, dilaudid 1 mg q4h PO prn. Acetaminophen 1000 mg q8h PO sched. PT/OT. DVT ppx in the am. Will likely need rehab. 2. ESRD on PD: nephro consult. Permacath in place by Dr. Ramirez if HD required. Given need for rehab, HD may be appropriate. Check CMP, Mg, Phos in AM. Renal diet. resume sevelamer, renvela 3. R hallux pain: severe PAD. pain control as above. Vascular service following. Plavix, resume in am. 4. HTN: off BP meds. midodrine. DVT ppx: heparin 5000 units SC to start in AM. DISPOSITION: PT/OT, may require rehab prior to return home. VS, I&O, 24H, Dhavalbone Vital Signs/I&O Vital Signs Date Time Temp Pulse Resp B/P (MAP) Pulse Ox O2 Delivery O2 Flow Rate FiO2 11/22/19 06:00 98.2 85 18 110/60 (77) 97 Room Air 11/22/19 02:00 2.0 I&O- Last 24 Hours up to 6 AM 11/22/19 06:00 Intake Total 5960 ml Output Total 3675 ml Balance 2285 ml Laboratory Data 24H LABS Laboratory Tests 2 11/21/19 12:25: Nucleated Red Blood Cells % (auto) 0.0, Prothrombin Time 13.4, Prothromb Time International Ratio 1.00, Activated Partial Thromboplast Time 38.7H, Anion Gap 8, Glomerular Filtration Rate 7.0L, Calcium Level 10.0 CBC/BMP Laboratory Tests 11/21/19 12:25 DIGNA MIRANDA MD Nov 22, 2019 07:03
[2019-11-22 08:33] LABS: BASO % 0.2 % (0.0-1.0); EOS # 0.3 10^3/uL (0.0-0.5); EOS % 2.3 % (0.0-3.0); HEMATOCRIT 24.6 % (42.0-52.0); HEMOGLOBIN 8.3 g/dl (13.5-17.5); LYMPH # 2.3 10^3/uL (1.5-5.0); LYMPH % 21.2 % (24.0-44.0); MEAN CORPUSCULAR HEMOGLOBIN 31.6 pg (27.0-33.0); MEAN CORPUSCULAR HGB CONC 33.7 g/dl (32.0-36.5); MEAN CORPUSCULAR VOLUME 93.5 fl (80.0-96.0); MONO # 0.7 10^3/uL (0.0-0.8); MONO % 6.5 % (0.0-5.0); NEUTROPHILS # 7.7 10^3/uL (1.5-8.5); NEUTROPHILS % 69.4 % (36.0-66.0); PLATELET COUNT, AUTOMATED 217 10^3/uL (150-450); RED BLOOD COUNT 2.63 10^6/uL (4.30-6.10)
[2019-11-22 08:58] LABS: ALBUMIN 2.6 GM/DL (3.2-5.2); ALT/SGPT 22 U/L (12-78); BILIRUBIN,TOTAL 0.2 MG/DL (0.2-1.0); BLOOD UREA NITROGEN 30 MG/DL (7-18); CALCIUM LEVEL 9.4 MG/DL (8.8-10.2); CARBON DIOXIDE LEVEL 28 MEQ/L (21-32); CHLORIDE LEVEL 94 MEQ/L (98-107); CREATININE FOR GFR 9.91 MG/DL (0.70-1.30); GLOMERULAR FILTRATION RATE 6.6 (>42); GLUCOSE, FASTING 119 MG/DL (70-100); MAGNESIUM LEVEL 1.6 MG/DL (1.8-2.4); PHOSPHORUS LEVEL 5.1 MG/DL (2.5-4.9); POTASSIUM SERUM 3.2 MEQ/L (3.5-5.1); SODIUM LEVEL 133 MEQ/L (136-145)
[2019-11-22] MEDS ORDERED: DARBEPOETIN 200MCG/0.4ML *NON-DIALYSIS* SYRINGE (J0881 PER 1MCG) SC SCH (09:00)
--- NOTE | 2019-11-22 09:05 | IPNPDOC ---
Date Seen The patient was seen on 11/22/19. Progress Note SUBJECTIVE: Pain in R hallux persist. . Patient has high pain tolerance. no acute events overnight. Denies CP, palpitation, n/v/d. Received peritoneal dialysis overnight. OBJECTIVE PHYSICAL EXAMINATION: VITAL SIGNS: Please see below. GENERAL: in visible pain at site of R hallux. HEENT: PERRLA CARDIOVASCULAR: RRR, normal S1, S2. RESPIRATORY: lungs CTAB. CHEST: L permacath in place ABDOMINAL: PD catheter in placed EXTREMITIES: L BKA, dressings clean and dry. R hallus dressing, severe pain to palpation. NEUROLOGICAL: no focal defitits PSYCHOLOGICAL: calm, cooperative. LABORATORY DATA, IMAGING STUDIES, MICROBIOLOGY: Please see below. Echocardiogram: . DVT prophylaxis ordered?: ASSESSMENT: 79 yo M with a hx of renal call carcinoma, s/p bilateral nephrectomies, presently on HD, CHF, HTN, AOCD, CAD, secondary hyperparathyroidism. Admitted s/p L BKA. Vascular service following. . PLAN: 1. S/p BKA: pain control. [place] 325/5 q6h prn for moderate pain. 0.3 mg dilaudid IV q3h prn for severe pain. Cont O2 monitor. Acetaminophen 1000 mg q8h PO sched. PT/OT. DVT ppx in the am. Will likely need rehab. 2. ESRD on PD: nephro consult. Permacath in place by Dr. Ramirez if HD r equired. Given need for rehab, HD may be appropriate. Check CMP, Mg, Phos in AM. Renal diet. resume sevelamer, renvela 3. R hallux pain: severe PAD. pain control as above. Vascular service following. Plavix, resume in am. 4. HTN: off BP meds. midodrine. DVT ppx: heparin 5000 units SC DISPOSITION: PT/OT will likely require acute vs subacute rehab. VS, I&O, 24H, Fishbone Vital Signs/I&O Vital Signs Date Time Temp Pulse Resp B/P (MAP) Pulse Ox O2 Delivery O2 Flow Rate FiO2 11/22/19 06:00 98.2 85 18 110/60 (77) 97 Room Air 11/22/19 02:00 2.0 I&O- Last 24 Hours up to 6 AM 11/22/19 06:00 Intake Total 5960 ml Output Total 3675 ml Balance 2285 ml Laboratory Data 24H LABS Laboratory Tests 2 11/21/19 12:25: Nucleated Red Blood Cells % (auto) 0.0, Prothrombin Time 13.4, Prothromb Time International Ratio 1.00, Activated Partial Thromboplast Time 38.7H, Anion Gap 8, Glomerular Filtration Rate 7.0L, Calcium Level 10.0 11/22/19 08:02: Nucleated Red Blood Cells % (auto) 0.0, Anion Gap 11, Glomerular Filtration Rate 6.6L, Calcium Level 9.4, Immature Granulocyte % (Auto) 0.4, Neutrophils (%) (Auto) 69.4H, Lymphocytes (%) (Auto) 21.2L, Monocytes (%) (Auto) 6.5H, Eosinophils (%) (Auto) 2.3, Basophils (%) (Auto) 0.2, Neutrophils # (Auto) 7.7, Lymphocytes # (Auto) 2.3, Monocytes # (Auto) 0.7, Eosinophils # (Auto) 0.3, Basophils # (Auto) 0.0, Phosphorus Level 5.1H, Magnesium Level 1.6L, Total Bilirubin 0.2, Aspartate Amino Transf (AST/SGOT) 23, Alanine Aminotransferase (ALT/SGPT) 22, Alkaline Phosphatase 88, Total Protein 6.0L, Albumin 2.6L, Albumin/Globulin Ratio 0.8 CBC/BMP Laboratory Tests 11/21/19 12:25 11/22/19 08:02 DIGNA MIRANDA MD Nov 22, 2019 09:05
[2019-11-22] MEDS: OMEPRAZOLE 20 MG CAP PO SCH (09:47)
[2019-11-22] MEDS: POTASSIUM CHLORIDE 10 MEQ SR TABLET PO SCH (09:48)
[2019-11-22] MEDS: CLOPIDOGREL 75 MG TAB PO SCH (09:48)
[2019-11-22] MEDS: ASPIRIN 81 MG ENTERIC TAB PO SCH (09:48)
[2019-11-22] MEDS: MIDODRINE 5 MG TAB PO SCH (09:49)
[2019-11-22] MEDS: HEPARIN SOD (PORCINE) 5000UNITS/ML 1ML VIAL/SYRINGE SQ SCH ×2 (09:49→23:10)
[2019-11-22] MEDS: (RENVELA) SEVELAMER **CARBONate** 800 MG TAB PO SCH ×2 (12:30→18:00)
[2019-11-22 12:48] LABS: FERRITIN 1841 NG/ML (26-388); IRON (FE) 70 UG/DL (65-175); PERCENT SATURATION 41.2 % (19.7-50.0); TOTAL IRON BINDING CAPACITY 170 UG/DL (250-450)
[2019-11-22 12:55] LABS: HEPATITIS B SURFACE ANTIBODY POSITIVE (POSITIVE)
[2019-11-22 13:09] LABS: HEPATITIS B SURFACE ANTIGEN NEGATIVE (NEGATIVE)
[2019-11-22 13:39] LABS: HEPATITIS B CORE ANTIBODY IGM NEGATIVE (NEGATIVE); HEPATITIS C VIRUS ABY INDEX 0.1 INDEX (<0.8)
--- NOTE | 2019-11-22 14:16 | IPNPDOC ---
Text Note Date of Service The patient was seen on 11/22/19. NOTE Vascular Surgery Dr Canseco. 79-year-old patient with long-standing severe bilateral lower extremity peripheral vascular disease status post left first toe ray amputation, which failed to heal and he progressed to a dehisced incision distally with dry gangrene over the second toe and the medial foot, S/P Left BKA 11/21/[address] Canseco. POD1. The pt is resting in bed comfortably, pain appears to be reasonably controlled. The pt is eating and drinking. The pt's dressing is changed at bedside today with Dr Canseco, danielito intact. Minimal post op bleeding on bandage. Wound with no drainage, bleeding, erythema. The wound is cleaned, xeroform, fluffs, kerlix and MASSIEL wrap re applied amd pt is repositioned. Pt tolerated well. Continue with daily wound care. analgesia prn, high protein diet to help with healing, podiatry consult RE: pain right toe, PT/OT. Consider ARU. VS,Fishbone, I+O VS, Fishbone, I+O Laboratory Tests 11/22/19 08:02 Vital Signs Date Time Temp Pulse Resp B/P (MAP) Pulse Ox O2 Delivery O2 Flow Rate FiO2 11/22/19 12:30 17 Room Air 11/22/19 10:00 97.0 89 108/60 (76) 98 11/22/19 02:00 2.0 I&O- Last 24 Hours up to 6 AM 11/22/19 06:00 Intake Total 5960 ml Output Total 3675 ml Balance 2285 ml Puja Garcia Nov 22, 2019 14:16
[2019-11-22] MEDS: ATORVASTATIN 20 MG TAB PO SCH (23:06)
[2019-11-23] VITALS (7 sets, daily range): BP systolic 106–128; BP diastolic 56–66
[2019-11-23] MEDS: ALBUTEROL SULFATE 2.5 MG/0.5 ML INH NEB SOLN NEB SCH ×5 (01:26→23:59)
[2019-11-23] MEDS ORDERED: MAG SULF 1GM/100ML (MAG RUN) 1 GM in IV 1 EA IV ONE (02:30)
[2019-11-23] MEDS ORDERED: POTASSIUM CHLORIDE 10 MEQ SR TABLET PO ONE ×2 (02:30→21:45)
[2019-11-23] MEDS: ACETAMINOPHEN 500 MG TAB PO SCH ×3 (06:28→21:53)
[2019-11-23] MEDS: NORCO, ANEXSIA 5/325MG TABLET (HYDROcodone/ACETAMINOPHEN) PO PRN ×3 (06:34→20:29)
[2019-11-23 07:24] LABS: ALBUMIN 2.4 GM/DL (3.2-5.2); BILIRUBIN,TOTAL 0.3 MG/DL (0.2-1.0); CREATININE FOR GFR 9.87 MG/DL (0.70-1.30); GLOMERULAR FILTRATION RATE 6.7 (>42); MAGNESIUM LEVEL 1.9 MG/DL (1.8-2.4); PHOSPHORUS LEVEL 5.7 MG/DL (2.5-4.9); POTASSIUM SERUM 3.2 MEQ/L (3.5-5.1); TOTAL PROTEIN 5.8 GM/DL (6.4-8.2)
--- NOTE | 2019-11-23 08:58 | IPNPDOC ---
Text Note Date of Service The patient was seen on 11/23/19. NOTE Vascular Surgery Dr Canseco. 79-year-old patient with long-standing severe bilateral lower extremity peripheral vascular disease status post left first toe ray amputation, which failed to heal and he progressed to a dehisced incision distally with dry gangrene over the second toe and the medial foot, S/P Left BKA 11/21/[address] Canseco. POD2. The pt is resting in bed. The pt is eating and drinking. The pt's dressing is changed at bedside today with Dr Canseco, danielito intact. No bleeding. Wound with no drainage, bleeding, erythema. The wound is cleaned, xeroform, fluffs, kerlix and MASSIEL wrap re applied and pt is repositioned. Reinforced for the pt to try to keep his Lt knee straight. Pt tolerated well. Continue with daily wound care. analgesia prn, high protein diet to help with healing, Consult Robert Pride re Lt BKA, knee immobilizer. podiatry consult RE: pain right toe, PT/OT. Consider ARU. VS,Fishbone, I+O VS, Fishbone, I+O Laboratory Tests 11/23/19 06:00 Vital Signs Date Time Temp Pulse Resp B/P (MAP) Pulse Ox O2 Delivery O2 Flow Rate FiO2 11/23/19 07:04 18 11/23/19 06:00 98.3 56 118/57 (77) 99 Room Air 11/22/19 02:00 2.0 I&O- Last 24 Hours up to 6 AM 11/23/19 05:59 Intake Total 45320 ml Output Total 9600 ml Balance 2009 ml Puja Garcia Nov 23, 2019 08:58
[2019-11-23] MEDS: HEPARIN SOD (PORCINE) 5000UNITS/ML 1ML VIAL/SYRINGE SQ SCH ×2 (09:45→20:23)
[2019-11-23] MEDS: CLOPIDOGREL 75 MG TAB PO SCH (09:47)
[2019-11-23] MEDS: MIDODRINE 5 MG TAB PO SCH (09:47)
[2019-11-23] MEDS: OMEPRAZOLE 20 MG CAP PO SCH (09:47)
[2019-11-23] MEDS: HYDROMORPHONE HCL 0.5 MG/ 0.5 ML SYRINGE (J1170 PER 1) IV PRN ×2 (09:47→16:52)
[2019-11-23] MEDS: (RENVELA) SEVELAMER **CARBONate** 800 MG TAB PO SCH ×3 (09:47→17:51)
[2019-11-23] MEDS: ASPIRIN 81 MG ENTERIC TAB PO SCH (09:47)
[2019-11-23] MEDS: POTASSIUM CHLORIDE 10 MEQ SR TABLET PO SCH (09:48)
[2019-11-23] MEDS: ATORVASTATIN 20 MG TAB PO SCH (20:22)
[2019-11-23] MEDS: CINACALCET 30 MG TAB (SENSIPAR) PO SCH (20:22)
[2019-11-23] MEDS ORDERED: NS 1,000 ML IV SCH (21:30)
--- NOTE | 2019-11-23 21:35 | IPNPDOC ---
Date Seen The patient was seen on 11/23/19. Progress Note SUBJECTIVE: Pain in R hallux persist. 11/11. Patient has high pain tolerance. no acute events overnight. Denies CP, palpitation, n/v/d. OBJECTIVE PHYSICAL EXAMINATION: VITAL SIGNS: Please see below. VITAL SIGNS: Please see below. GENERAL: in visible pain at site of R hallux. HEENT: PERRLA CARDIOVASCULAR: RRR, normal S1, S2. RESPIRATORY: lungs CTAB. CHEST: L permacath in place ABDOMINAL: PD catheter in placed EXTREMITIES: L BKA, dressings clean and dry. R hallus dressing, severe pain to p alpation. NEUROLOGICAL: no focal defitits PSYCHOLOGICAL: calm, cooperative. LABORATORY DATA, IMAGING STUDIES, MICROBIOLOGY: Please see below. DVT prophylaxis ordered?: Y ASSESSMENT: 79 yo M with a hx of renal call carcinoma, s/p bilateral nephrectomies, presently on HD, CHF, HTN, AOCD, CAD, secondary hyperparathyroidism. Admitted s/p L BKA. Vascular service following. . PLAN: 1. S/p BKA: pain control. [place] 325/5 q6h prn for moderate pain. 0.6 mg dilaudid IV q3h prn for severe pain. Cont O2 monitor. Acetaminophen 1000 mg q8h PO sched. PT/OT. DVT ppx in the am. Will likely need rehab. ARU eval pending. 2. ESRD on PD: nephro consult. Permacath in place by Dr. Ramirez if HD required. Given need for rehab, HD may be appropriate. Check CMP, Mg, Phos in AM. Renal diet. resume mady tong 3. R hallux pain: severe PAD. pain control as above. Vascular service following. Plavix, resume in am. 4. HTN: off BP meds. home med midodrine? Normotensive. DVT ppx: heparin 5000 units SC DISPOSITION: PT/OT will likely require acute rehab. VS, I&O, 24H, Fishbone Vital Signs/I&O Vital Signs Date Time Temp Pulse Resp B/P (MAP) Pulse Ox O2 Delivery O2 Flow Rate FiO2 11/23/19 20:29 18 Room Air 11/23/19 18:00 96.6 89 111/66 (81) 97 11/22/19 02:00 2.0 I&O- Last 24 Hours up to 6 AM 11/23/19 06:00 Intake Total 9460 ml Output Total 8200 ml Balance 1260 ml Laboratory Data 24H LABS Laboratory Tests 2 11/23/19 06:00: Anion Gap 11, Glomerular Filtration Rate 6.7L, Calcium Level 9.0, Phosphorus Level 5.7H, Magnesium Level 1.9, Total Bilirubin 0.3, Aspartate Amino Transf (AST/SGOT) 35, Alanine Aminotransferase (ALT/SGPT) 14, Alkaline Phosphatase 103, Total Protein 5.8L, Albumin 2.4L, Albumin/Globulin Ratio 0.7 CBC/BMP Laboratory Tests 11/23/19 06:00 DIGNA MIRANDA MD Nov 23, 2019 21:35
[2019-11-23] MEDS: SODIUM CHLORIDE 1 GM TAB PO SCH (22:01)
[2019-11-24 02:00] VITALS: BP 132/61
[2019-11-24] MEDS ORDERED: METOPROLOL TART 50 MG TAB PO ONE (04:30)
[2019-11-24] MEDS: HYDROMORPHONE HCL 0.5 MG/ 0.5 ML SYRINGE (J1170 PER 1) IV PRN (04:42)
[2019-11-24] MEDS: ACETAMINOPHEN 500 MG TAB PO SCH ×4 (05:38→21:34)
[2019-11-24 06:00] VITALS: BP 138/54
[2019-11-24 07:14] LABS: BASO % 0.4 % (0.0-1.0); EOS # 0.3 10^3/uL (0.0-0.5); EOS % 3.1 % (0.0-3.0); HEMOGLOBIN 8.2 g/dl (13.5-17.5); LYMPH # 1.9 10^3/uL (1.5-5.0); LYMPH % 17.2 % (24.0-44.0); MEAN CORPUSCULAR HEMOGLOBIN 32.2 pg (27.0-33.0); MEAN CORPUSCULAR HGB CONC 34.2 g/dl (32.0-36.5); MEAN CORPUSCULAR VOLUME 94.1 fl (80.0-96.0); MONO # 0.9 10^3/uL (0.0-0.8); MONO % 8.2 % (0.0-5.0); NEUTROPHILS # 7.9 10^3/uL (1.5-8.5); NEUTROPHILS % 70.6 % (36.0-66.0); PLATELET COUNT, AUTOMATED 224 10^3/uL (150-450); RED BLOOD COUNT 2.55 10^6/uL (4.30-6.10); WHITE BLOOD COUNT 11.1 10^3/uL (4.0-10.0)
[2019-11-24 07:26] LABS: ALBUMIN 2.1 GM/DL (3.2-5.2); CALCIUM LEVEL 8.7 MG/DL (8.8-10.2); CREATININE FOR GFR 9.71 MG/DL (0.70-1.30); GLOMERULAR FILTRATION RATE 6.8 (>42); PHOSPHORUS LEVEL 3.9 MG/DL (2.5-4.9); POTASSIUM SERUM 4.1 MEQ/L (3.5-5.1)
[2019-11-24] MEDS: (RENVELA) SEVELAMER **CARBONate** 800 MG TAB PO SCH ×4 (08:00→18:00)
[2019-11-24] MEDS: ALBUTEROL SULFATE 2.5 MG/0.5 ML INH NEB SOLN NEB SCH ×3 (08:00→19:48)
[2019-11-24] MEDS: SODIUM CHLORIDE 1 GM TAB PO SCH ×2 (08:43→09:00)
[2019-11-24] MEDS: ASPIRIN 81 MG ENTERIC TAB PO SCH ×2 (08:43→09:00)
[2019-11-24] MEDS: HEPARIN SOD (PORCINE) 5000UNITS/ML 1ML VIAL/SYRINGE SQ SCH ×2 (08:43→20:23)
[2019-11-24] MEDS: MIDODRINE 5 MG TAB PO SCH (08:44)
[2019-11-24] MEDS: CLOPIDOGREL 75 MG TAB PO SCH ×2 (08:44→09:00)
[2019-11-24] MEDS: OMEPRAZOLE 20 MG CAP PO SCH ×2 (08:44→09:00)
[2019-11-24] MEDS: NORCO, ANEXSIA 5/325MG TABLET (HYDROcodone/ACETAMINOPHEN) PO PRN ×2 (08:55→22:35)
[2019-11-24 09:07] LABS: MAGNESIUM LEVEL 1.8 MG/DL (1.8-2.4)
[2019-11-24 10:00] VITALS: BP 115/64
[2019-11-24] MEDS ORDERED: HYDROMORPHONE HCL 0.5 MG/ 0.5 ML SYRINGE (J1170 PER 1) IV PRN (11:15)
[2019-11-24 14:00] VITALS: BP 110/60
--- NOTE | 2019-11-24 14:10 | IPNPDOC ---
Date Seen The patient was seen on 11/24/19. Progress Note SUBJECTIVE: Pain in R hallux persist. 11/11. Patient has high pain tolerance. no acute events overnight. Denies CP, palpitation, n/v/d. OBJECTIVE PHYSICAL EXAMINATION: VITAL SIGNS: Please see below. GENERAL: in visible pain at site of R hallux, L BKA HEENT: PERRLA CARDIOVASCULAR: RRR, normal S1, S2. RESPIRATORY: lungs CTAB. CHEST: L permacath in place ABDOMINAL: PD catheter in placed EXTREMITIES: L BKA, dressings clean and dry. Knee imobilizer in place. R hallus dressing, severe pain to palpation. NEUROLOGICAL: no focal defiticits PSYCHOLOGICAL: calm, cooperative. LABORATORY DATA, IMAGING STUDIES, MICROBIOLOGY: Please see below. DVT prophylaxis ordered?: Y ASSESSMENT: 79 yo M with a hx of renal call carcinoma, s/p bilateral nephrectomies, presently on HD, CHF, HTN, AOCD, CAD, secondary hyperparathyroidism. Admitted s/p L BKA. Vascular service following. . PLAN: 1. S/p BKA: POD #3. pain control. [place] 325/5 q6h prn for moderate pain. Reduce dose of dilaudid IV to 0.3 mg q6h prn. Bowel regimen. Cont O2 monitor. Acetaminophen 1000 mg q8h PO sched. PT/OT. DVT ppx in the am. Will likely need rehab. ARU eval pending. 2. ESRD on PD: nephro consult. Permacath in place by Dr. Ramirez if HD required. Given need for rehab, HD may be appropriate. CMP, mg, phos wnl. 3. R hallux pain: severe PAD. pain control as above. Vascular service following. Plavix. ASA. Podiatry consulted. Dr. Donohue. 4. HTN: off BP meds. home med midodrine? Normotensive. 5. Hyponatremia. 133. Salt tab 1 gm per day. 6. PVCs on Tele: given 50 mg lopressor overnight. Monitor. Asymptomatic. DVT ppx: heparin 5000 units SC DISPOSITION: PT/OT will likely require acute rehab. ARU eval pending. VS, I&O, 24H, Fishbone Vital Signs/I&O Vital Signs Date Time Temp Pulse Resp B/P (MAP) Pulse Ox O2 Delivery O2 Flow Rate FiO2 11/24/19 11:45 18 11/24/19 11:26 115/64 11/24/19 10:00 98.0 86 100 Room Air 11/22/19 02:00 2.0 I&O- Last 24 Hours up to 6 AM 11/24/19 05:59 Intake Total 13367 ml Output Total 55701 ml Balance 590 ml Laboratory Data 24H LABS Laboratory Tests 2 11/23/19 21:35: Phosphorus Level 4.6 11/24/19 06:30: Phosphorus Level 3.9, Immature Granulocyte % (Auto) 0.5, Neutrophils (%) (Auto) 70.6H, Lymphocytes (%) (Auto) 17.2L, Monocytes (%) (Auto) 8.2H, Eosinophils (%) (Auto) 3.1H, Basophils (%) (Auto) 0.4, Neutrophils # (Auto) 7.9, Lymphocytes # (Auto) 1.9, Monocytes # (Auto) 0.9H, Eosinophils # (Auto) 0.3, Basophils # (Auto) 0.0, Nucleated Red Blood Cells % (auto) 0.0, Anion Gap 10, Glomerular Filtration Rate 6.8L, Calcium Level 8.7L, Magnesium Level 1.8, Albumin 2.1L CBC/BMP Laboratory Tests 11/24/19 06:30 DIGNA MIRANDA MD Nov 24, 2019 14:10
[2019-11-24] MEDS: NS 1,000 ML IV SCH ×2 (18:18→22:37)
--- NOTE | 2019-11-24 18:35 | IPNPDOC ---
Date Seen The patient was seen on 11/24/19. Progress Note Pt seen and examined. Doing pretty well but tired today. Says his pain is ok. Knee immobilizer removed, along with dressing. Stump is c/d/i. No bleeding or erythema noted. Cleaned incision, and redressed with xeroform, fluffs, kerlex, natalia wrap. Knee immobilizer replaced. Pt tolerated well. Will continue to follow stump. Goal is for ARU at d/c. Cont analgesia as needed. OOB with PT/OT. VS, I&O, 24H, Fishbone Vital Signs/I&O Vital Signs Date Time Temp Pulse Resp B/P (MAP) Pulse Ox O2 Delivery O2 Flow Rate FiO2 11/24/19 14:00 98.2 80 16 110/60 (77) 94 Room Air 11/22/19 02:00 2.0 I&O- Last 24 Hours up to 6 AM 11/24/19 05:59 Intake Total 75778 ml Output Total 35974 ml Balance 590 ml Laboratory Data 24H LABS Laboratory Tests 2 11/23/19 21:35: Phosphorus Level 4.6 11/24/19 06:30: Phosphorus Level 3.9, Immature Granulocyte % (Auto) 0.5, Neutrophils (%) (Auto) 70.6H, Lymphocytes (%) (Auto) 17.2L, Monocytes (%) (Auto) 8.2H, Eosinophils (%) (Auto) 3.1H, Basophils (%) (Auto) 0.4, Neutrophils # (Auto) 7.9, Lymphocytes # (Auto) 1.9, Monocytes # (Auto) 0.9H, Eosinophils # (Auto) 0.3, Basophils # (Auto) 0.0, Nucleated Red Blood Cells % (auto) 0.0, Anion Gap 10, Glomerular Filtration Rate 6.8L, Calcium Level 8.7L, Magnesium Level 1.8, Albumin 2.1L CBC/BMP Laboratory Tests 11/24/19 06:30 ELLA STEPHENSON MD Nov 24, 2019 18:34
[2019-11-24] MEDS: ATORVASTATIN 20 MG TAB PO SCH (20:23)
[2019-11-24] MEDS: METOPROLOL TART 25 MG TABLET PO SCH (20:26)
[2019-11-24 22:00] VITALS: BP 123/60
[2019-11-25] MEDS: ALBUTEROL SULFATE 2.5 MG/0.5 ML INH NEB SOLN NEB SCH ×4 (00:44→20:00)
[2019-11-25 02:00] VITALS: BP 122/62
[2019-11-25] MEDS: ACETAMINOPHEN 500 MG TAB PO SCH ×3 (05:58→22:27)
[2019-11-25 06:00] VITALS: BP 108/55
[2019-11-25] MEDS: NORCO, ANEXSIA 5/325MG TABLET (HYDROcodone/ACETAMINOPHEN) PO PRN ×2 (06:57→17:16)
[2019-11-25] MEDS: (RENVELA) SEVELAMER **CARBONate** 800 MG TAB PO SCH ×5 (08:00→18:00)
[2019-11-25] MEDS ORDERED: LOSARTAN 25 MG TAB PO SCH (09:00)
[2019-11-25] MEDS: ASPIRIN 81 MG ENTERIC TAB PO SCH (09:40)
[2019-11-25] MEDS: SODIUM CHLORIDE 1 GM TAB PO SCH (09:40)
[2019-11-25] MEDS: HEPARIN SOD (PORCINE) 5000UNITS/ML 1ML VIAL/SYRINGE SQ SCH ×2 (09:40→22:27)
[2019-11-25] MEDS: METOPROLOL TART 25 MG TABLET PO SCH ×2 (09:42→22:35)
[2019-11-25] MEDS: CLOPIDOGREL 75 MG TAB PO SCH (09:42)
[2019-11-25] MEDS: OMEPRAZOLE 20 MG CAP PO SCH (09:43)
[2019-11-25] MEDS: MIDODRINE 5 MG TAB PO SCH (09:43)
--- NOTE | 2019-11-25 10:52 | IPNPDOC ---
Date Seen The patient was seen on 11/25/19. Progress Note Patient seen and examined postoperative day 4 status post left below-knee amputation. He is doing well. He has some complaints of pain, mostly in his ri ght foot overnight, but says it is better this morning after analgesia. On exam, after removal of the stump protector/knee immobilizer and the dressing, the below-knee amputation stump is clean dry and intact. No active drainage, bleeding, erythema, or induration is noted. Incision was cleaned and dry dressing reapplied. Knee immobilizer/stump protector reapplied. Patient tolerated the dressing change well with minimal discomfort. Plan is to continue activity as tolerated with PT and OT and hopefully discharged to ARU this week for ongoing rehabilitation. We appreciate the hospitalists excellent management of this patient. VS, I&O, 24H, Dhavalbone Vital Signs/I&O Vital Signs Date Time Temp Pulse Resp B/P (MAP) Pulse Ox O2 Delivery O2 Flow Rate FiO2 11/25/19 09:42 86 110/68 11/25/19 07:45 16 11/25/19 06:57 Room Air 11/25/19 06:00 99.1 96 11/22/19 02:00 2.0 I&O- Last 24 Hours up to 6 AM 11/25/19 06:00 Intake Total 59825 ml Output Total 05188 ml Balance 2110 ml ELLA STEPHENSON MD Nov 25, 2019 10:52
[2019-11-25 14:00] VITALS: BP 114/60
--- NOTE | 2019-11-25 15:31 | IPNPDOC ---
Date Seen The patient was seen on 11/25/19. Progress Note SSUBJECTIVE: Pain in R hallux persist but is improving 11/11. no acute events overnight. Denies CP, palpitation, n/v/d. He is AAO x 3. OBJECTIVE PHYSICAL EXAMINATION: VITAL SIGNS: Please see below. GENERAL: in visible pain at site of R hallux, L BKA HEENT: PERRLA CARDIOVASCULAR: RRR, normal S1, S2. RESPIRATORY: lungs CTAB. CHEST: L permacath in place ABDOMINAL: PD catheter in placed EXTREMITIES: L BKA, dressings clean and dry. Knee imobilizer in place. R hallus dressing, severe pain to palpation. NEUROLOGICAL: no focal defiticits PSYCHOLOGICAL: calm, cooperative. LABORATORY DATA, IMAGING STUDIES, MICROBIOLOGY: Please see below. DVT prophylaxis ordered?: Y ASSESSMENT: 79 yo M with a hx of renal call carcinoma, s/p bilateral nephrectomies, presently on HD, CHF, HTN, AOCD, CAD, secondary hyperparathyroidism. Admitted s/p L BKA. Vascular service following. . PLAN: 1. S/p BKA: POD #4. pain control. [place] 325/5 q6h prn for moderate-severe pain. Acetaminophen 1000 mg q8h PO sched. Bowel regimen. PT/OT. DVT ppx in the am. Will likely need rehab. ARU eval pending. 2. ESRD on PD: nephro consult. Permacath in place by Dr. Ramirez if HD required. Given need for rehab, HD may be appropriate. 3. R hallux pain: severe PAD. pain control as above. Vascular service following. Plavix. ASA. Podiatry consulted. Dr. Donohue. 4. HTN: off BP meds. home med midodrine? Normotensive. 5. Hyponatremia. Salt tab 1 gm per day. 6. Non sustained vtach on tele: metoprolol 25 mg BID. DVT ppx: heparin 5000 units SC DISPOSITION: PT/OT will likely require acute rehab. ARU eval pending. VS, I&O, 24H, Fishbone Vital Signs/I&O Vital Signs Date Time Temp Pulse Resp B/P (MAP) Pulse Ox O2 Delivery O2 Flow Rate FiO2 11/25/19 09:42 86 110/68 11/25/19 07:45 16 11/25/19 06:57 Room Air 11/25/19 06:00 99.1 96 11/22/19 02:00 2.0 I&O- Last 24 Hours up to 6 AM 11/25/19 06:00 Intake Total 29457 ml Output Total 20649 ml Balance 2270 ml DIGNA MIRANDA MD Nov 25, 2019 15:31
[2019-11-25] MEDS ORDERED: HYDROmorphone 2 MG TAB PO ONE (19:00)
[2019-11-25 22:00] VITALS: BP 108/60
[2019-11-25] MEDS: diazePAM 5 MG TAB PO PRN (22:27)
[2019-11-25] MEDS: ATORVASTATIN 20 MG TAB PO SCH (22:27)
[2019-11-26] VITALS (16 sets, daily range): BP systolic 104–130; BP diastolic 57–70; O2SAT 95
[2019-11-26] MEDS: ALBUTEROL SULFATE 2.5 MG/0.5 ML INH NEB SOLN NEB SCH ×4 (01:12→19:24)
[2019-11-26] MEDS: ACETAMINOPHEN 500 MG TAB PO SCH ×3 (06:10→22:32)
[2019-11-26 09:07] LABS: HEMATOCRIT 20.1 % (42.0-52.0); HEMOGLOBIN 7.1 g/dl (13.5-17.5); MEAN CORPUSCULAR HGB CONC 35.3 g/dl (32.0-36.5); MEAN CORPUSCULAR VOLUME 93.5 fl (80.0-96.0); PLATELET COUNT, AUTOMATED 243 10^3/uL (150-450); RED BLOOD COUNT 2.15 10^6/uL (4.30-6.10); WHITE BLOOD COUNT 8.1 10^3/uL (4.0-10.0)
[2019-11-26 09:24] LABS: ALBUMIN 1.9 GM/DL (3.2-5.2); CREATININE FOR GFR 9.07 MG/DL (0.70-1.30); GLOMERULAR FILTRATION RATE 7.3 (>42); PHOSPHORUS LEVEL 4.2 MG/DL (2.5-4.9); POTASSIUM SERUM 3.2 MEQ/L (3.5-5.1); THYROID STIMULATING HORMONE 0.163 uIU/ML (0.358-3.740)
--- NOTE | 2019-11-26 09:51 | IPNPDOC ---
Date Seen The patient was seen on 11/26/19. Progress Note Patient seen and examined postoperative day 5 status post left below-knee amputation. He is doing well. He has minimal complaints of pain today. On exam, after removal of the stump protector/knee immobilizer and the dressing, the below-knee amputation stump is clean dry and intact. No active drainage, bleeding, erythema, or induration is noted. Incision was cleaned and dry dressing reapplied. Knee immobilizer/stump protector not yet reapplied- asked RN to reapply after breakfast to give him a break for an hour or so. Patient tolerated the dressing change well with minimal discomfort. Plan is to continue activity as tolerated with PT and OT and hopefully discharged to ARU this week for ongoing rehabilitation. We appreciate the hospitalists excellent management of this patient. VS, I&O, 24H, Randy Vital Signs/I&O Vital Signs Date Time Temp Pulse Resp B/P (MAP) Pulse Ox O2 Delivery O2 Flow Rate FiO2 11/26/19 07:07 95 11/26/19 06:00 97.2 84 17 112/62 (79) Room Air 11/22/19 02:00 2.0 I&O- Last 24 Hours up to 6 AM 11/26/19 06:00 Intake Total 36655 ml Output Total 26789 ml Balance 557 ml Laboratory Data 24H LABS Laboratory Tests 2 11/26/19 08:08: Nucleated Red Blood Cells % (auto) 0.0, Anion Gap 10, Glomerular Filtration Rate 7.3L, Calcium Level 9.0, Phosphorus Level 4.2, Albumin 1.9L, Thyroid Stimulating Hormone (TSH) 0.163L CBC/BMP Laboratory Tests 11/26/19 08:08 ELLA STEPHENSON MD Nov 26, 2019 09:51
[2019-11-26] MEDS: HEPARIN SOD (PORCINE) 5000UNITS/ML 1ML VIAL/SYRINGE SQ SCH ×2 (09:58→20:07)
[2019-11-26] MEDS: (RENVELA) SEVELAMER **CARBONate** 800 MG TAB PO SCH ×3 (09:58→18:00)
[2019-11-26] MEDS: NORCO, ANEXSIA 5/325MG TABLET (HYDROcodone/ACETAMINOPHEN) PO PRN (09:58)
[2019-11-26] MEDS: METOPROLOL TART 25 MG TABLET PO SCH ×2 (10:00→20:08)
[2019-11-26] MEDS: MIDODRINE 5 MG TAB PO SCH (10:01)
[2019-11-26] MEDS: ASPIRIN 81 MG ENTERIC TAB PO SCH (10:01)
[2019-11-26] MEDS: SODIUM CHLORIDE 1 GM TAB PO SCH (10:01)
[2019-11-26] MEDS: CLOPIDOGREL 75 MG TAB PO SCH (10:01)
[2019-11-26] MEDS: OMEPRAZOLE 20 MG CAP PO SCH (10:01)
[2019-11-26] MEDS ORDERED: POTASSIUM CHLORIDE 10 MEQ SR TABLET PO ONE (11:45)
[2019-11-26] MEDS ORDERED: MIDODRINE 5 MG TAB PO SCH (16:00)
[2019-11-26] MEDS: ATORVASTATIN 20 MG TAB PO SCH (20:07)
[2019-11-26] MEDS: CINACALCET 30 MG TAB (SENSIPAR) PO SCH (20:08)
--- NOTE | 2019-11-26 21:58 | IPNPDOC ---
Date Seen The patient was seen on 11/26/19. Progress Note SSUBJECTIVE: Pain in R hallux persist but is improving 11/11. no acute events overnight. Denies CP, palpitation, n/v/d. He is AAO x 3. OBJECTIVE PHYSICAL EXAMINATION: VITAL SIGNS: Please see below. GENERAL: in visible pain at site of R hallux, L BKA HEENT: PERRLA CARDIOVASCULAR: RRR, normal S1, S2. RESPIRATORY: lungs CTAB. CHEST: L permacath in place ABDOMINAL: PD catheter in placed EXTREMITIES: L BKA, dressings clean and dry. Knee imobilizer in place. R hallus dressing, severe pain to palpation. NEUROLOGICAL: no focal defiticits PSYCHOLOGICAL: calm, cooperative. LABORATORY DATA, IMAGING STUDIES, MICROBIOLOGY: Please see below. DVT prophylaxis ordered?: Y ASSESSMENT: 79 yo M with a hx of renal call carcinoma, s/p bilateral nephrectomies, presently on HD, CHF, HTN, AOCD, CAD, secondary hyperparathyroidism. Admitted s/p L BKA. Vascular service following. . PLAN: 1. S/p BKA: POD #5. pain control. [place] 325/5 q6h prn for moderate-severe pain. Acetaminophen 1000 mg q8h PO sched. Bowel regimen. PT/OT. DVT ppx in the am. Will likely need rehab. ARU eval pending. 2. ESRD on PD: nephro consult. Permacath in place by Dr. Ramirez if HD required. Given need for rehab, HD may be appropriate. 3. Anemia: Hgb 7.1 this morning. Transfusion ordered by Dr. Forman. Repeat H&H. 4. Hypokalemia: replace. 3. R hallux pain: severe PAD. pain control as above. Vascular service following. Plavix. ASA. Podiatry consulted. Dr. Donohue. 4. HTN: off BP meds. home med midodrine? Normotensive. 5. Hyponatremia. Salt tab 1 gm per day. 6. Non sustained vtach on tele: metoprolol 25 mg BID. DVT ppx: heparin 5000 units SC - held due to anemia DISPOSITION: PT/OT will likely require acute rehab. ARU eval pending. VS, I&O, 24H, Fishbone Vital Signs/I&O Vital Signs Date Time Temp Pulse Resp B/P (MAP) Pulse Ox O2 Delivery O2 Flow Rate FiO2 11/26/19 20:08 78 110/60 11/26/19 19:59 97.1 17 100 Room Air 11/22/19 02:00 2.0 I&O- Last 24 Hours up to 6 AM 11/26/19 06:00 Intake Total 33169 ml Output Total 63377 ml Balance 557 ml Laboratory Data 24H LABS Laboratory Tests 2 11/26/19 08:08: Nucleated Red Blood Cells % (auto) 0.0, Anion Gap 10, Glomerular Filtration Rate 7.3L, Calcium Level 9.0, Phosphorus Level 4.2, Albumin 1.9L, Thyroid Stimulating Hormone (TSH) 0.163L CBC/BMP Laboratory Tests 11/26/19 08:08 DIGNA MIRANDA MD Nov 26, 2019 21:58
[2019-11-27 00:30] LABS: HEMATOCRIT 26.7 % (42.0-52.0)
[2019-11-27 00:38] LABS: HEMOGLOBIN 9.5 g/dl (13.5-17.5)
[2019-11-27 00:58] LABS: CALCIUM LEVEL 9.2 MG/DL (8.8-10.2); CREATININE FOR GFR 8.83 MG/DL (0.70-1.30); GLOMERULAR FILTRATION RATE 7.6 (>42); POTASSIUM SERUM 3.1 MEQ/L (3.5-5.1)
[2019-11-27] MEDS: ALBUTEROL SULFATE 2.5 MG/0.5 ML INH NEB SOLN NEB SCH ×3 (01:32→13:06)
[2019-11-27 06:00] VITALS: BP 121/60
[2019-11-27] MEDS: ACETAMINOPHEN 500 MG TAB PO SCH ×2 (06:03→13:32)
[2019-11-27 06:25] LABS: BASO % 0.4 % (0.0-1.0); EOS # 0.6 10^3/uL (0.0-0.5); EOS % 8.7 % (0.0-3.0); HEMATOCRIT 27.6 % (42.0-52.0); HEMOGLOBIN 9.9 g/dl (13.5-17.5); LYMPH # 1.5 10^3/uL (1.5-5.0); LYMPH % 20.9 % (24.0-44.0); MEAN CORPUSCULAR HEMOGLOBIN 31.8 pg (27.0-33.0); MEAN CORPUSCULAR HGB CONC 35.9 g/dl (32.0-36.5); MEAN CORPUSCULAR VOLUME 88.7 fl (80.0-96.0); MONO # 0.6 10^3/uL (0.0-0.8); MONO % 8.5 % (0.0-5.0); NEUTROPHILS # 4.5 10^3/uL (1.5-8.5); NEUTROPHILS % 61.2 % (36.0-66.0); PLATELET COUNT, AUTOMATED 250 10^3/uL (150-450); RED BLOOD COUNT 3.11 10^6/uL (4.30-6.10); WHITE BLOOD COUNT 7.4 10^3/uL (4.0-10.0)
[2019-11-27 07:01] LABS: ALBUMIN 1.9 GM/DL (3.2-5.2); BILIRUBIN,TOTAL 0.5 MG/DL (0.2-1.0); CALCIUM LEVEL 8.7 MG/DL (8.8-10.2); CREATININE FOR GFR 9.11 MG/DL (0.70-1.30); GLOMERULAR FILTRATION RATE 7.3 (>42); MAGNESIUM LEVEL 1.8 MG/DL (1.8-2.4); POTASSIUM SERUM 3.3 MEQ/L (3.5-5.1); TOTAL PROTEIN 5.3 GM/DL (6.4-8.2)
[2019-11-27] MEDS ORDERED: POTASSIUM CHLORIDE 10 MEQ SR TABLET PO SCH (10:00)
[2019-11-27] MEDS: CLOPIDOGREL 75 MG TAB PO SCH (10:16)
[2019-11-27] MEDS: OMEPRAZOLE 20 MG CAP PO SCH (10:16)
[2019-11-27] MEDS: MIDODRINE 5 MG TAB PO SCH ×2 (10:16→13:31)
[2019-11-27] MEDS: (RENVELA) SEVELAMER **CARBONate** 800 MG TAB PO SCH ×2 (10:17→13:31)
[2019-11-27] MEDS: ASPIRIN 81 MG ENTERIC TAB PO SCH (10:17)
--- NOTE | 2019-11-27 12:00 | IPNPDOC ---
Date Seen The patient was seen on 11/27/19. Progress Note Patient seen and examined. Doing very well status post left BKA. Pain well controlled. Smiling and pleasant and cooperative today. Seems to be in a much better mood and doing well. On exam, his BKA incision is clean dry and intact, no drainage, no erythema, no swelling. The incision was thoroughly cleaned and dressings were reapplied. The patient did not have his knee immobilizer on overnight so we worked on extending his knee, and then his knee immobilizer was replaced. He tolerated this all very well. At this point, the patient is more than ready for rehabilitation from my standpoint, and hopefully we will have a decision on acute rehabilitation soon. He has a PermCath in place for martha abilitation so he can convert from peritoneal dialysis to hemodialysis while at rehabilitation. VS, I&O, 24H, [place]bone Vital Signs/I&O Vital Signs Date Time Temp Pulse Resp B/P (MAP) Pulse Ox O2 Delivery O2 Flow Rate FiO2 11/27/19 06:00 98.2 76 18 121/60 (80) 99 Room Air 11/22/19 02:00 2.0 I&O- Last 24 Hours up to 6 AM 11/27/19 06:00 Intake Total 23826 ml Output Total 9100 ml Balance 1170 ml Laboratory Data 24H LABS Laboratory Tests 2 11/26/19 23:59: Anion Gap 10, Glomerular Filtration Rate 7.6L, Calcium Level 9.2 11/27/19 05:27: Immature Granulocyte % (Auto) 0.3, Neutrophils (%) (Auto) 61.2, Lymphocytes (%) (Auto) 20.9L, Monocytes (%) (Auto) 8.5H, Eosinophils (%) (Auto) 8.7H, Basophils (%) (Auto) 0.4, Neutrophils # (Auto) 4.5, Lymphocytes # (Auto) 1.5, Monocytes # (Auto) 0.6, Eosinophils # (Auto) 0.6H, Basophils # (Auto) 0.0, Nucleated Red Blood Cells % (auto) 0.0 11/27/19 05:39: Anion Gap 10, Glomerular Filtration Rate 7.3L, Calcium Level 8.7L, Phosphorus Level 5.0H, Magnesium Level 1.8, Total Bilirubin 0.5, Aspartate Amino Transf (AST/SGOT) 30, Alanine Aminotransferase (ALT/SGPT) 8L, Alkaline Phosphatase 142H, Total Protein 5.3L, Albumin 1.9L, Albumin/Globulin Ratio 0.6 CBC/BMP Laboratory Tests 11/26/19 23:59 11/27/19 05:27 11/27/19 05:39 ELLA STEPHENSON MD Nov 27, 2019 12:00
--- NOTE | 2019-11-27 15:17 | DS.PDOC ---
Discharge Summary General Date of Admission Nov 22, 2019 at 08:45 Date of Discharge 11/27/19 Discharge Summary PROCEDURES PERFORMED DURING STAY: Left BKA DISCHARGE DIAGNOSES: Left Below knee amputation. Secondary diagnosis: Hx of renal call carcinoma, s/p bilateral nephrectomies, ESRD on Peritoneal di alysis, CHF, HTN, CAD, PAD with right heel dry ulcer and right hallux chronic ischemic ulcer, chronic anemia, secondary hyperparathyroidism, chronic hypotension COMPLICATIONS/CHIEF COMPLAINT: Left Below Knee Amputation. HOSPITAL COURSE: 79 yo M with a hx of renal call carcinoma, s/p bilateral nep hrectomies, ESRD on Peritoneal dialysis, CHF, HTN, AOCD, CAD, PAD with right heel dry ulcer and right hallux chronic ischemic ulcer, chronic anemia, secondary hyperparathyroidism, chronic hypotension on midodrine admitted s/p L BKA on 11/21/19. He did well after surgery, His pain is now controlled. He has a perm cath in place for HD. Patient to be shifted to HD while he is in Rehab then will be switched back to PD on discharge home. On telemetry he did have few short episodes of NSVT asymptomatic. He was started onmetoprolol for this however he has a tendency to become hypotensive so this was stopped. Patient has been accepted by ARU and is stable to be discharged today. DISCHARGE MEDICATIONS: Please see below. ALLERGIES: Please see below. PHYSICAL EXAMINATION ON DISCHARGE: VITAL SIGNS: Please see below. GENERAL: in visible pain at site of R hallux and right heel, L BKA HEENT: PERRLA CARDIOVASCULAR: RRR, normal S1, S2. Systolic murmur present. RESPIRATORY: lungs CTAB. CHEST: L permacath in place ABDOMINAL: PD catheter in placed EXTREMITIES: L BKA, dressings clean and dry. Knee imobilizer in place. R hallus dressing, severe pain to palpation. dry ulcer at right heel. NEUROLOGICAL: no focal deficits PSYCHOLOGICAL: calm, cooperative. LABORATORY DATA: Please see below. ACTIVITY: [As tolerated]. DIET: regular DISPOSITION: ARU DISCHARGE INSTRUCTIONS: Follow up with Dr Ramirez and Dr Forman DISCHARGE CONDITION: [Stable]. TIME SPENT ON DISCHARGE:35 minutes. Vital Signs/I&Os Vital Signs Date Time Temp Pulse Resp B/P (MAP) Pulse Ox O2 Delivery O2 Flow Rate FiO2 11/27/19 14:00 98.4 77 18 99 Room Air 11/27/19 06:00 121/60 (80) 11/22/19 02:00 2.0 I&O- Last 24 Hours up to 6 AM 11/27/19 06:00 Intake Total 89773 ml Output Total 9100 ml Balance 1170 ml Laboratory Data Labs 24H Laboratory Tests 2 11/26/19 23:59: Anion Gap 10, Glomerular Filtration Rate 7.6L, Calcium Level 9.2 11/27/19 05:27: Immature Granulocyte % (Auto) 0.3, Neutrophils (%) (Auto) 61.2, Lymphocytes (%) (Auto) 20.9L, Monocytes (%) (Auto) 8.5H, Eosinophils (%) (Auto) 8.7H, Basophils (%) (Auto) 0.4, Neutrophils # (Auto) 4.5, Lymphocytes # (Auto) 1.5, Monocytes # (Auto) 0.6, Eosinophils # (Auto) 0.6H, Basophils # (Auto) 0.0, Nucleated Red Blood Cells % (auto) 0.0 11/27/19 05:39: Anion Gap 10, Glomerular Filtration Rate 7.3L, Calcium Level 8.7L, Phosphorus Level 5.0H, Magnesium Level 1.8, Total Bilirubin 0.5, Aspartate Amino Transf (AST/SGOT) 30, Alanine Aminotransferase (ALT/SGPT) 8L, Alkaline Phosphatase 142H, Total Protein 5.3L, Albumin 1.9L, Albumin/Globulin Ratio 0.6 CBC/BMP Laboratory Tests 11/26/19 23:59 11/27/19 05:27 11/27/19 05:39 Discharge Medications Scheduled Aspirin (Aspir 81) 81 Mg Tablet.dr, 81 MG PO DAILY for pain, (Reported) Atorvastatin Calcium (Atorvastatin Calcium) 40 Mg Tablet, 40 MG PO QHS, (Reported) Cinacalcet HCl (Sensipar) 60 Mg Tablet, 60 MG PO 3XWP, (Reported) Clopidogrel Bisulfate (Clopidogrel) 75 Mg Tablet, 75 MG PO DAILY, (Reported) Docusate Sodium (Colace) 100 Mg Capsule, 100 MG PO BIDP, (Reported) Epoetin Irving (Epogen) 20,000 Unit/1 Ml Vial, 20,000 UNIT INJ ASDIRECTED, (Reported) EVERY 2 WEEKS Heparin Sodium,Porcine/Pf (Heparin 1,000 Unit/10 (100/ml)) 1,000 Unit/10 Ml Syringe, 1,500 UNIT IV QWEEK, (Reported) GIVEN AT DIALYSIS ON MONDAYS Midodrine HCl (Midodrine HCl) 5 Mg Tablet, 5 MG PO DAILY, (Reported) Multivitamins (Thera M Plus Tablet) 1 Each Tablet, 1 TAB PO DAILY, (Reported) Omeprazole (Omeprazole) 20 Mg Capsule.dr, 20 MG PO DAILY, (Reported) Potassium Chloride (K-Tab ER) 10 Meq Tablet.er, 20 MEQ PO DAILY, (Reported) Sevelamer Carbonate (Renvela) 800 Mg Tablet, 800 MG PO WM, (Reported) Scheduled PRN Hydrocodone/Acetaminophen (Hydrocodone-Acetamin 5-300 mg) 1 Each Tablet, 1 TAB PO Q6HP PRN for PAIN, (Reported) Ipratropium/Albuterol Sulfate (Iprat-Albut 0.5-3(2.5) mg/3 ml) 3 Ml Ampul.neb, 1 VIAL NEB Q4H PRN for SOB/WHEEZING, (Reported) Allergies Coded Allergies: amlodipine (Verified Allergy, Unknown, 09/07/19) indomethacin (Verified Allergy, Unknown, 09/07/19) nifedipine (Verified Allergy, Unknown, 09/07/19) oxycodone (Unverified Allergy, Unknown, 11/21/19) NSAIDS (Non-Steroidal Anti-Inflamma (Verified Adverse Reaction, Intermediate, RECTAL BLEEDING, 09/07/19) TAKES 81MG ASA AT HOME FINE hydralazine (Verified Adverse Reaction, Mild, ELEVATED BP, 09/07/19) minoxidil (Verified Adverse Reaction, Mild, SWELLING, 11/21/19) Opioids - Morphine Analogues (Verified Adverse Reaction, Unknown, DIALYSIS PT, 09/14/19) epoetin beta (Verified Adverse Reaction, Unknown, 11/22/19) Hyporesponsive ANA VAZQUEZ MD Nov 27, 2019 15:17
--- NOTE | 2019-12-05 08:34 | CR ---
DATE: 11/23/2019 CHIEF COMPLAINT: A 79-year-old male is seen today for evaluation of painful right foot. Patient has been seen by me in the past. Has dry gangrene of the distal right toe. Also complains of an ulceration on his heel. He is seen today on referral. PAST MEDICAL HISTORY: 1. Renal cell carcinoma. 2. Status post bilateral nephrectomies. 3. Congestive heart failure. 4. Hypertension. 5. Coronary artery disease. 6. Secondary hyperparathyroidism. 7. Anemia of chronic renal disease. 8. Gout. 9. Gastroesophageal reflux disease. 10. History of prostate cancer. PAST SURGICAL HISTORY: 1. Hemodialysis catheter placement. 2. Peritoneal dialysis catheter placement. 3. Bilateral nephrectomy. 4. Prostatectomy. HOME MEDICATIONS: - 81 mg aspirin - atorvastatin 40 mg by mouth every night - Sensipar 60 mg tablet - clopidogrel 75 mg daily - Colace 100 mg twice a day - Epogen 20,000 units as directed - multivitamin - midodrine 5 mg daily - omeprazole 20 mg daily - potassium chloride 10 mEq tablets, two by mouth daily - Renvela 80 mg tablet ALLERGIES: ACETAMINOPHEN, AMLODIPINE, INDOMETHACIN, NIFEDIPINE, OXYCODONE, HYDRALAZINE. PHYSICAL EXAMINATION: Reveals on the right foot a dry area of dry gangrene, measuring approximately 2 cm x 1 cm, involving the distal lateral aspect of the hallux. There was an ulceration on the posterior heel, measuring 4 mm x 3 mm x 1 mm. There was a hyperkeratotic area around the heel, measuring 2 cm, which was debrided today. The ulcer as not debrided, since this displays a good granulation tissue base. Allevyn foam dressing was placed on the right heel. This can be changed every 3 days as needed, and a PolyMem bandage was placed on the area of dry gangrene of the right hallux. We discussed with the patient elevating his heel off the bed with either a pillow or blanket. The dressings can be changed every 3 days or as needed for discharge. His questions were answered. ILDA
--- NOTE | 2019-12-05 08:44 | CR ---
DATE: 11/22/2019 REQUESTING PHYSICIAN: Dr. Wright . CONSULTING PHYSICIAN: Dr. Sequeira REASON FOR CONSULTATION: Management of endstage renal disease and peritoneal dialysis. CHIEF COMPLAINT: The patient was admitted last night after left below knee amputation. HISTORY OF PRESENT ILLNESS: Mr. Mauricio Mckinney is a 79-year-old male with a past medical history of endstage renal disease on peritoneal dialysis, history of hypertension, congestive heart failure, peripheral vascular disease, with chronic severe persistent pain in the bilateral feet because of peripheral vascular disease. He got an angiogram done by Vascular Surgery and he was found to have ischemia in the left leg. He underwent left below knee amputation by Vascular Surgery and he was admitted overnight. Nephrology Service was called for further help in the management of this patients endstage renal disease. I had already arranged his peritoneal dialysis to be done overnight. I had ordered his PD. He got two exchanges overnight. He denies any problems with the PD exchange. The patient was seen and examined at the bedside today morning. He reports persistent pain in the right leg and the right foot as well which is being optimized with pain medications. PAST MEDICAL HISTORY: Endstage renal disease on peritoneal dialysis, hypertensive nephrosclerosis, anemia and endstage renal disease, chronic gout secondary to chronic kidney disease, hypertension, congestive heart failure, pulmonary hypertension, coronary artery disease, gastroesophageal reflux disease, peripheral vascular disease, history of prostate cancer, history of renal cell cancer. PAST SURGICAL HISTORY: Status post bilateral enterprise nephrectomies because of renal cell cancer, status post prostatectomy, status post peritoneal dialysis catheter placement. He got a left below knee amputation and leg IJ tunneled hemodialysis catheter placement yesterday. ALLERGIES: Patient is allergic to NSAIDs and opioids, amlodipine, he is hyporesponsive to Mircera. He is allergic to Hydralazine, Indomethacin, Minoxidil, Nifedipine and Oxycodone. Most of these allergies are side-effects. He does not have any history of anaphylaxis to any of these medications. FAMILY HISTORY: No significant family history of endstage renal disease requiring hemodialysis. SOCIAL HISTORY: The patient lives at home with his . He denies any active smoking, illicit drug abuse or alcohol abuse. REVIEW OF SYSTEMS: Constitutional: The patient denies any fevers or chills. Eyes: He denies any blurry vision or double vision. ENT: Denies any dysphagia or odynophagia. Cardiovascular: Denies any chest pain or palpitations. Respiratory: He denies any chest pain. GI: He denies any nausea or vomiting. Genitourinary: He reports anuria. Musculoskeletal: He reports severe pain on the left below knee amputation site and right foot. Skin: He denies any rashes or ulcers. Psych: He denies any depression or anxiety. Endocrine: He reports secondary hyperparathyroidism. PROPERTY LOSS INSURANCE CLAIM ADJUSTER: He denies any strokes or seizures. All other review of systems are negative. PHYSICAL EXAMINATION: General: The patient is awake, alert and oriented x3, laying in bed in moderate painful distress. Vital signs: Temperature is 98.2 degrees Fahrenheit, blood pressure is 110/60, pulse is 85, respiratory rate is 18, saturating 98% on room air. Head and neck exam: Extraocular muscles intact. Pupils are equally round and reactive to light. Mucous membranes are moist. Neck is supple. He has a left IJ tunneled hemodialysis catheter. Cardiovascular: S1 and S2. Regular rate. No edema of the right lower extremity. Respiratory: Chest is clear to auscultation bilaterally. No rales or rhonchi. Abdomen is soft, positive bowel sounds. Left sided abdominal peritoneal dialysis catheter is noted. Access site is clean. Genitourinary: No hernia noted. Bladder is not palpable. Musculoskeletal: Patient has a dressing on the left below knee amputation site and site is very tender. He has a dressing on the right foot as well. PROPERTY LOSS INSURANCE CLAIM ADJUSTER: No focal deficit. Psych: Patient is slightly agitated because of pain at this time. LABORATORY DATA: CBC showed a WBC of 11, hemoglobin 8.3, platelets 217,000. BMP showed a sodium of 133, potassium 3.2, chloride 94, bicarbonate 28, BUN 30, creatinine 9.9. Phosphorus 5.1, magnesium is 1.6, albumin 2.6. CURRENT INPATIENT MEDICATIONS: - Tylenol p.r.n. - albuterol nebs [id number] - aspirin 81 mg daily - Lipitor 40 mg q.h.s. - Sensipar 60 mg p.o. Tuesday, Tuesday and Tuesday - Plavix 75 mg p.o. daily - He has been started on Aranesp 200 mcg sub q. once a week. - Colace 200 mg p.o. b.i.d. - Midodrine 5 mg p.o. in the morning - potassium chloride was started today morning at 20 mEq p.o. daily - I have started him on Renvela 800 mg p.o. with meals. ASSESSMENT AND PLAN: 1. Endstage renal disease. The patient is peritoneal dialysis dependent. He will get five manual exchanges, all 2 liters, all 1.5% while he is in the Medical/Surgical Unit. Once patient is transferred to rehab he will be switched to hemodialysis because there is no peritoneal dialysis done at rehab. 2. Hypokalemia, it is secondary to peritoneal dialysis. Patient has been started on potassium chloride 20 mEq p.o. q. day. 3. Anemia and endstage renal disease. I have ordered iron levels to be today morning. If iron levels are low, patient will be given IV iron. I have started him on Aranesp 200 mcg at dialysis. 4. 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 I have restarted the patient on Renvela with meals. 5. Protein calorie malnutrition. I am going to start the patient on Nepro with meals. 6. Peripheral vascular disease status post left below knee amputation. Continue current dose of aspirin, Plavix and atorvastatin. The rest of the management is as per vascular surgery. 7. Secondary hyperparathyroidism. Continue current dose of Sensipar 60 mg p.o. Tuesday, Tuesday and Tuesday. 8. Hypotension. Patient used to be hypertensive, now he is hypotensive and gets Midodrine 5 mg p.o. daily in the morning. Thank you for involving me in the care of this patient. I shall be happy to follow the patient along with you tomorrow morning. [facility]
--- NOTE | 2019-12-20 15:06 | ECGEPIP ---
[facility] Test Date: 2019-11-23 Pat Name: CASSIDY VARGHESE Department: Room: [place] [address] Gender: Male Export Specialist: : 1940 Requested By: DALLAS Byrd Order Number: [id number] Reading MD: Juanito Jose Measurements Intervals [place] Rate: 106 P: 55 [place]: 207 QRS: -23 QRSD: 120 T: 91 QT: 325 QTc: 431 Interpretive Statements SINUS TACHYCARDIA WITH FREQUENT VENTRICULAR PREMATURE COMPLEXES POSSIBLE ANTERIOR MYOCARDIAL INFARCTION, OF INDETERMINATE AGE ABNORMAL ECG NO PRIOR FOR COMPARISON
--- NOTE | 2019-12-27 14:53 | ECGEPIP ---
[facility] Test Date: 2019-11-24 Pat Name: CASSIDY VARGHESE Department: Room: [place] [address] Gender: Male Mammalogy Teacher: CORTNEY : 1940 Requested By: DIGNA MIRANDA Order Number: [id number] Reading MD: Charlie Barnes Measurements Intervals [place] Rate: 80 P: 52 [place]: 225 QRS: -28 QRSD: 104 T: 96 QT: 367 QTc: 423 Interpretive Statements SINUS RHYTHM WITH FIRST DEGREE AV BLOCK LOW QRS VOLTAGE LA CONDUCTION DEFECT, LAD. IRBBB, POOR R WAVE PROGRESSION BODY HABITIS VS COPD R/O PRIOR ASMI/IWMI ST/T ABN'S CLINICAL CORRELATION SEE SCANNED DOWNTIME REPORT
--- NOTE | 2019-12-27 15:24 | ECGEPIP ---
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
--- NOTE | 2019-12-31 09:27 | REP ---
LIMITED CHEST X-RAY: 3-VIEWS HISTORY: Central Permacath placement. FINDINGS: A sequence of 3 last image hold fluoroscopically obtained spot radiographs of the chest document central venous catheter placement with its tip in the expected location of the superior vena cava. There appears to be an endotracheal tube and an oral esophageal catheter. 7 seconds of fluoroscopy time is reported. MTDD
--- NOTE | 2020-01-11 13:59 | IPN ---
DATE: 11/23/2019 SUBJECTIVE: The patient was seen and examined at the bedside today morning. The patient is drowsy and sleepy because of the pain medications. He still reports a persistent lower extremity pain at the left lower extremity amputation site and he also reports pain in the foot as well. Otherwise, there are no issues with peritoneal dialysis. He reports that he is barely eating anything and he has requested his diet to be changed to a regular diet. OBJECTIVE: VITAL SIGNS: Temperature is 98.3 degrees Fahrenheit, blood pressure 118/57, pulse is 56, respiratory rate is 16, saturating 99% on room air. Intake and output: Urine output is not recorded. Patient is anuric. Weight on the bed scale was 74.9 kg yesterday. GENERAL: The patient is drowsy and sleepy because of the pain medication. He is oriented x1 laying in bed. HEAD AND NECK: Extraocular muscles intact. Pupils equally round and reactive to light. Mucous membranes are moist. NECK: Supple. There is no JVD. CARDIOVASCULAR: S1 and S2, regular rate. No edema. RESPIRATORY: Chest is clear to auscultation bilaterally. No wheezes, rales or rhonchi. ABDOMEN: Soft, positive bowel sounds. There is a peritoneal dialysis catheter in the left lower quadrant. MUSCULOSKELETAL: He has a dressing on the left below the knee amputation site. 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 LABORATORY DATA: BMP from today: Sodium 131, potassium 3.2, chloride 95, bicarbonate 25, BUN 37, creatinine 9.8. Phosphorus 5.7. Magnesium is 1.9. CURRENT INPATIENT MEDICATIONS: The patients medications were all reviewed by myself. He was given a dose of magnesium sulfate and he was also given a dose of potassium chloride 40 mEq x1 dose. No other significant changes in the medications today as compared with yesterday. ASSESSMENT AND PLAN: 1. Endstage renal disease. Patient is currently on peritoneal dialysis, continue current PD regimen. He is tolerating well. 2. Hypokalemia, patient is already on potassium chloride 20 mEq p.o. daily. An additional 40 mEq was given last night. 3. Chronic kidney disease, mineral bone disease. He was started on Renvela with meals yesterday. 4. Anemia and endstage renal disease. Iron levels were done yesterday and they are adequate. The patient has been started on Aranesp with dialysis. 5. Peripheral vascular disease status post left below knee amputation site. Pain medication optimization is as per Vascular Surgery and Primary Team. 6. Secondary hyperparathyroidism. Continue current dose of Sensipar 60 mg p.o. Tuesday, Tuesday and Tuesday. 7. Hypotension, continue current dose of Midodrine 5 mg in the morning. MTDD
--- NOTE | 2020-01-11 14:00 | IPN ---
DATE: 11/24/2019 SUBJECTIVE: Mr. Floyd is seen this morning at his bedside. He had left below the knee amputation last week and has been in a lot of pain. He is not feeling very good at this point. Currently, nursing staff is performing his peritoneal dialysis exchange. Peritoneal fluid is clear. Patient has poor oral intake and is not interested in food due to no appetite. No vomiting or diarrhea reported by nursing staff. PHYSICAL EXAMINATION: Temperature 98 degrees Fahrenheit, heart rate 86 per minute, respiratory rate 18 per minute, blood pressure 115/64 mmHg and oxygen saturation 100% on room air. Head is atraumatic. Neck is supple and without JVD or thyroid enlargement. Heart sounds are regular. Lungs are clear to auscultation. Abdomen is soft and nontender, bowel sounds are present. Peritoneal dialysis catheter is intact. Extremities without any cyanosis or clubbing. He had left below the knee amputation and stump is wrapped in dressing and brace. Neurologically, he is awake and able to answer questions. He is in a lot of pain and receiving pain medication. LABORATORY DATA: Today labs show WBC 11.1, hemoglobin 8.2, hematocrit 24.0, platelets 224,000. Sodium 133, potassium 4.1, CO2 27, BUN 39 and creatinine 9.71, glucose 100 and calcium 8.7. Magnesium level 1.8 and albumin 2.1. PROBLEMS: 1. End-stage renal disease: Patient has been on peritoneal dialysis and will continue with the same. He also has a Permacath placed in left internal jugular vein; currently we have not used it and it will used only when he gets transferred to acute rehab. Peritoneal dialysis is working very well and will continue with current prescription. 2. Anemia: This is related to his recent surgery. Patient is receiving Aranesp 200 mcg once a week and will continue with the same. 3. Hypokalemia: Patient has poor oral intake and does have history of chronic hypokalemia. He has been on oral potassium supplement. His electrolytes should be monitored frequently. At this point today, his potassium level is corrected to 4.1. 4. Protein calorie malnutrition: Patient has very poor oral intake and loss of appetite. I am adding Nepro one can b.i.d. 5. Peripheral vascular disease: Patient had a left below the knee amputation. He also has ischemic changes in his right big toe. He is being followed by podiatry for that. ILDA
--- NOTE | 2020-01-11 14:01 | IPN ---
DATE: 11/25/2019 SUBJECTIVE: Mr. Floyd is seen this morning at his bedside. He is much more alert today and able to have a conversation. Nursing staff reports that yesterday he was very lethargic after he received Dilaudid. Dilaudid has now been stopped and he is receiving Hydrocodone for pain control. Patient denies any dyspnea or chest pain. He is now complaining of pain in his right foot. He reports that dressing on his left leg stump was changed by Dr. Patel. PHYSICAL EXAMINATION: Temperature 99.1 degrees Fahrenheit, heart rate 86 per minute, respiratory rate 16 per minute, blood pressure 110/68 mmHg and oxygen saturation 96% on room air. Head is atraumatic. Neck is supple and without JVD or thyroid enlargement. Heart sounds are regular. Lungs are clear to auscultation. Abdomen is soft and nontender, bowel sounds are normal. Extremities without any cyanosis or clubbing. His peritoneal dialysis catheter is intact in his abdomen. Left below the knee amputation was done and stump is wrapped in dressing and brace. Neurologically, he is awake, alert and at his baseline mentation. LABORATORY DATA: Patient did not have any new labs today. PROBLEMS: 1. End-stage renal disease: Patient continued with peritoneal dialysis, which is working very well. No changes are being made today. He is very well dialyzed. 2. Hyponatremia: Mild chronic hyponatremia has been unchanged. There are no labs today. Will recheck his chemistry panel tomorrow. 3. Hypokalemia: His potassium level was corrected at 4.1 yesterday. He remains on potassium supplement. His renal profile will be checked again tomorrow. 4. Anemia: He does have chronic anemia related to end-stage renal disease and recent surgery. He is on Aranesp 200 mcg once a week and will continue with the same. MTDD
--- NOTE | 2020-01-11 14:03 | IPN ---
DATE: 11/26/2019 SUBJECTIVE: Mr. Floyd is seen this morning at his bedside. He is feeling somewhat better but still has pain in his right foot. He reports that his left leg stump dressing was changed this morning. The patient denies any nausea, vomiting, dyspnea or chest pain. His peritoneal dialysis is working well. PHYSICAL EXAMINATION: VITAL SIGNS: Temperature 97.2 degrees Fahrenheit, heart rate 62 per minute, respiratory rate 18 per minute. Blood pressure 108/56 mmHg and oxygen saturation 95% on room air. HEENT: Head is atraumatic. NECK: Supple without JVD or thyroid enlargement. HEART: Heart sounds are regular. LUNGS: Clear to auscultation. ABDOMEN: Soft and nontender. Bowel sounds are normal. Peritoneal dialysis catheter is intact. EXTREMITIES: Without any cyanosis or clubbing. He had left below the knee amputation and stump with wrapped in dressing and brace. The right foot is also in a dressing. NEUROLOGIC: He is awake, alert and oriented x3. LABORATORY DATA: Todays labs showed a WBC count of 8.1, hemoglobin 7.1, hematocrit 20.1, platelets 243,000. Sodium 136, potassium 3.2, CO2 27, BUN 41 and creatinine 9.07. Glucose 122, calcium 9.0 and phosphorus 4.2. Albumin is 1.9. PROBLEMS: 1. Endstage renal disease. Patient remains on peritoneal dialysis and will continue with prescription. He is very well dialyzed. 2. Hypokalemia. This is new and related to poor intake. He will continue with potassium supplements and electrolytes will be checked tomorrow. 3. Anemia. His anemia worsened and we are going to transfer 2 units of packed RBCs. CBC will be checked again tomorrow. 4. Hypotension. Patient has chronic hypotension and remains on Midodrine 5 mg, would change it to t.i.d. 5. Peripheral vascular disease, status post left below the knee amputation. Patient is doing well since his surgery. [facility]ISIONS[facility]il
--- NOTE | 2020-01-11 14:06 | IPN ---
DATE: 11/27/2019 SUBJECTIVE: Mr. Floyd is seen this morning at his bedside. He is feeling better today and reports that pain in his right foot is improved. He had a left below the knee amputation done last week and seems to be doing very well. Dr. Canseco is pleased with his wound and changed the dressing this morning. Patient has been on peritoneal dialysis due to end-stage renal disease and his dialysis has been working well. Patient denies any dyspnea, chest pain, nausea or vomiting. PHYSICAL EXAMINATION: VITAL SIGNS: Temperature 98.4 degrees Fahrenheit, heart rate 82 per minute, respiratory rate 18 per minute, blood pressure 131/65 mmHg and oxygen saturation 97% on room air. HEENT: Head is atraumatic. NECK: Supple and JVD not elevated. He has a left-sided Permacath in anticipation for starting hemodialysis when he goes to acute rehab. HEART: Heart sounds are regular. LUNGS: Clear to auscultation. ABDOMEN: Soft, nontender, and bowel sounds are normal. Peritoneal dialysis catheter is intact. EXTREMITIES: Without any cyanosis or clubbing. He has left below the knee amputation and stump is wrapped in dressing. NEUROLOGIC: He is awake and at his baseline mentation without focal deficit. LABORATORY DATA: Todays labs: WBC 7.4, hemoglobin 9.9, hematocrit 27.6. Sodium 134, potassium 3.3, CO2 27, BUN 45, creatinine 9.11, calcium 8.7 and phosphorus 5.0. PROBLEMS: 1. End-stage renal disease: Patient is currently on peritoneal dialysis and doing very well. Our plan is to switch him to hemodialysis temporarily when he goes to acute rehab as he will not be able to continue peritoneal dialysis on that floor due to staffing issue. 2. Anemia. His anemia has improved following transfusion of 2 units of packed RBCs yesterday. He will continue with Aranesp. 3. Hypokalemia: This is related to poor oral intake. Patient has been chronically on potassium supplement and should continue with potassium chloride 20 mEq daily; he will be given two doses today. 4. Deconditioning following left below the knee amputation: Patient has been deconditioned even prior to surgery due to severe pain in his left lower extremity due to which he had a left below the knee amputation. He is going to require acute rehab and he is medically stable from renal standpoint to go to rehab floor. I have discussed this with nursing staff and patient family services. Patient already has a Permacath placed in anticipation for switching to hemodialysis while on acute rehab. ILDA
== END 2019-11-27 16:25 | DRG 239 ==
LOC: M SDC 11:59 → M MSPAV 16:25 → M SDC 11-22 08:41 → M MSPAV 11-22 08:45
PROVIDERS: ADMIT Family Medicine; ATTEND Internal Medicine Nephrology
PROC: 0JH63XZ Insertion of Tunneled Vascular Access Device into Chest Subcutaneous Tissue and Fascia, Percutaneous Approach (ICD-10-PCS; 2019-11-21)
PROC: 02HV33Z Insertion of Infusion Device into Superior Vena Cava, Percutaneous Approach (ICD-10-PCS; 2019-11-21)
PROC: 3E1M39Z Irrigation of Peritoneal Cavity using Dialysate, Percutaneous Approach (ICD-10-PCS; 2019-11-21)
PROC: 0Y6J0Z3 Detachment at Left Lower Leg, Low, Open Approach (ICD-10-PCS; principal; 2019-11-21 15:05)
PROC: 0HDMXZZ Extraction of Right Foot Skin, External Approach (ICD-10-PCS; 2019-11-23)
PROC: 30233N1 Transfusion of Nonautologous Red Blood Cells into Peripheral Vein, Percutaneous Approach (ICD-10-PCS; 2019-11-26)
DX: I70.263 Atherosclerosis of native arteries of extremities with gangrene, bilateral legs (principal); N18.6 End stage renal disease; I13.2 Hypertensive heart and chronic kidney disease with heart failure and with stage 5 chronic kidney disease, or end stage renal disease; N25.81 Secondary hyperparathyroidism of renal origin; E46 Unspecified protein-calorie malnutrition; L97.518 Non-pressure chronic ulcer of other part of right foot with other specified severity; E87.1 Hypo-osmolality and hyponatremia; I47.2 Ventricular tachycardia; I50.32 Chronic diastolic (congestive) heart failure; I95.9 Hypotension, unspecified; E87.6 Hypokalemia; T87.81 Dehiscence of amputation stump; D63.1 Anemia in chronic kidney disease; M10.30 Gout due to renal impairment, unspecified site; I27.20 Pulmonary hypertension, unspecified; K21.9 Gastro-esophageal reflux disease without esophagitis; I25.10 Atherosclerotic heart disease of native coronary artery without angina pectoris; Z85.46 Personal history of malignant neoplasm of prostate; Z85.528 Personal history of other malignant neoplasm of kidney; Z90.5 Acquired absence of kidney; Z99.2 Dependence on renal dialysis; Z79.82 Long term (current) use of aspirin; Z79.02 Long term (current) use of antithrombotics/antiplatelets; Z79.899 Other long term (current) drug therapy; Z88.8 Allergy status to other drugs, medicaments and biological substances; Z88.5 Allergy status to narcotic agent; Y83.5 Amputation of limb(s) as the cause of abnormal reaction of the patient, or of later complication, without mention of misadventure at the time of the procedure

== ENCOUNTER 2019-11-27 14:55 | Inpatient (IN) | payer MEDICARE, OTHER ==
[~2019-11-27] VITALS: Ht 172.7 cm; Wt 69.7 kg
[~2019-11-27 14:55] MED LIST changes: +HYDR-4429 PO; +MIDO5TA PO; +PLAV1TAB2 PO
[2019-11-27] MEDS ORDERED: NORCO, ANEXSIA 5/325MG TABLET (HYDROcodone/ACETAMINOPHEN) PO PRN (16:00)
[2019-11-27 16:30] VITALS: BP 131/65
[2019-11-27] MEDS: (RENVELA) SEVELAMER **CARBONate** 800 MG TAB PO SCH (17:36)
[2019-11-27] MEDS: MIDODRINE 5 MG TAB PO SCH (18:53)
[2019-11-27] MEDS: IPRATROPIUM 0.5MG/ALBUTEROL 2.5MG INH SOL UD 3ML (DUONEB) NEB SCH (19:07)
[2019-11-27 20:00] VITALS: BP 142/74
[2019-11-27] MEDS: ATORVASTATIN 20 MG TAB PO SCH (20:55)
[2019-11-27] MEDS: DOCUSATE SODIUM 100 MG CAP PO SCH (20:56)
[2019-11-27] MEDS: POTASSIUM CHLORIDE 10 MEQ SR TABLET PO SCH (20:56)
[2019-11-27] MEDS: ACETAMINOPHEN 500 MG TAB PO PRN (20:56)
[2019-11-27] MEDS: SENNA 8.6 MG TAB (SENOKOT) PO SCH (20:57)
[2019-11-27] MEDS: HEPARIN SOD (PORCINE) 5000UNITS/ML 1ML VIAL/SYRINGE SC SCH (20:57)
[2019-11-28 05:41] VITALS: BP 150/74
[2019-11-28] MEDS: ACETAMINOPHEN 500 MG TAB PO PRN (06:31)
[2019-11-28] MEDS: IPRATROPIUM 0.5MG/ALBUTEROL 2.5MG INH SOL UD 3ML (DUONEB) NEB SCH ×3 (07:40→19:17)
[2019-11-28] MEDS: MULTIVITAMINS/MINERALS THERAP 1 TAB PO SCH (07:53)
[2019-11-28] MEDS: (RENVELA) SEVELAMER **CARBONate** 800 MG TAB PO SCH ×3 (07:53→17:53)
[2019-11-28] MEDS: ASPIRIN 81 MG ENTERIC TAB PO SCH (07:53)
[2019-11-28] MEDS: CLOPIDOGREL 75 MG TAB PO SCH (07:54)
[2019-11-28] MEDS: POTASSIUM CHLORIDE 10 MEQ SR TABLET PO SCH ×2 (07:54→21:16)
[2019-11-28] MEDS: OMEPRAZOLE 20 MG CAP PO SCH (07:54)
[2019-11-28] MEDS: DOCUSATE SODIUM 100 MG CAP PO SCH ×2 (07:55→21:16)
[2019-11-28] MEDS: MIDODRINE 5 MG TAB PO SCH ×3 (07:55→17:53)
[2019-11-28] MEDS: HEPARIN SOD (PORCINE) 5000UNITS/ML 1ML VIAL/SYRINGE SC SCH ×3 (07:55→21:15)
[2019-11-28 08:23] LABS: BASO % 0.4 % (0.0-1.0); EOS # 0.5 10^3/uL (0.0-0.5); EOS % 7.2 % (0.0-3.0); HEMATOCRIT 25.2 % (42.0-52.0); HEMOGLOBIN 8.9 g/dl (13.5-17.5); LYMPH # 1.7 10^3/uL (1.5-5.0); LYMPH % 23.2 % (24.0-44.0); MEAN CORPUSCULAR HEMOGLOBIN 31.3 pg (27.0-33.0); MEAN CORPUSCULAR HGB CONC 35.3 g/dl (32.0-36.5); MEAN CORPUSCULAR VOLUME 88.7 fl (80.0-96.0); MONO # 0.7 10^3/uL (0.0-0.8); MONO % 9.7 % (0.0-5.0); NEUTROPHILS # 4.3 10^3/uL (1.5-8.5); NEUTROPHILS % 59.1 % (36.0-66.0); PLATELET COUNT, AUTOMATED 241 10^3/uL (150-450); RED BLOOD COUNT 2.84 10^6/uL (4.30-6.10); WHITE BLOOD COUNT 7.3 10^3/uL (4.0-10.0)
[2019-11-28 08:50] LABS: ALBUMIN 1.8 GM/DL (3.2-5.2); BILIRUBIN,TOTAL 0.4 MG/DL (0.2-1.0); CALCIUM LEVEL 8.8 MG/DL (8.8-10.2); CREATININE FOR GFR 10.2 MG/DL (0.70-1.30); GLOMERULAR FILTRATION RATE 6.4 (>42); POTASSIUM SERUM 3.7 MEQ/L (3.5-5.1); TOTAL PROTEIN 5.1 GM/DL (6.4-8.2)
[2019-11-28] MEDS ORDERED: IRON SUCROSE 100MG 5ML VIAL (J1756 PER 1MG) IV SCH (11:45)
[2019-11-28] MEDS ORDERED: DARBEPOETIN 200MCG/0.4ML *DIALYSIS* SYRINGE (J0882 PER 1MCG) IV SCH (11:45)
[2019-11-28 14:00] VITALS: BP 133/66
--- NOTE | 2019-11-28 14:25 | CR.PDOC ---
General Date of Consultation: Nov 28, 2019 Referring Provider: JEFFERY CANTU MD Consultation REASON FOR CONSULTATION/CHIEF COMPLAINT: [Medical management]. HISTORY OF PRESENT ILLNESS: [ 79 yo M with a hx of renal call carcinoma, s/p bilateral nephrectomies, ESRD on Peritoneal dialysis, CHF, HTN, AOCD, CAD, PAD with right heel dry ulcer and right hallux chronic ischemic ulcer, chronic anemia, secondary hyperparathyroidism, chronic hypotension on midodrine admitted s/p L BKA on 11/21/19. He did well after surgery, His pain is now controlled. He has a perm cath in place for HD. Patient to be shifted to HD while he is in Rehab then will be switched back to PD on discharge home. On telemetry he did have few short episodes of NSVT asymptomatic. He was started onmetoprolol for this however he has a tendency to become hypotensive so this was stopped. Patient has been accepted by ARU and is stable to be discharged today] HOME MEDICATIONS: Please see below. PAST MEDICAL HISTORY: Hx of renal call carcinoma, s/p bilateral nephrectomies, ESRD on Peritoneal dialysis, CHF, HTN, CAD, PAD with right heel dry ulcer and right hallux chronic ischemic ulcer, chronic anemia, secondary hyperparathyroidism, chronic hypotension PAST SURGICAL HISTORY: Left Below knee amputation FAMILY HISTORY: Reviewed, no significant disease SOCIAL HISTORY: Denies, alcohol, drugs or smoking, lives with family REVIEW OF SYSTEMS: ROS reviewed All 9 Systems are WNL PHYSICAL EXAMINATION: 97.1,84,18,142/74,97 % HEENT: ARI/EOMI Neck: Supple Lungs: Clear to A&P CVS: S1 S2 reg Abd: Benign Ext: Left BKA, otherwise no CCE Neuro: No focal motor/sensory deficit Psych: WNL LABORATORY DATA:CBC and CMP reviewd: WNL ASSESSMENT/PLAN: 1. S/p BKA: POD #7. pain control with [place] 325/5 q6h prn for moderate-severe pain. Acetaminophen 1000 mg q8h PO sched. Bowel regimen. PT/OT. DVT ppx as per orders, Pt was admitted to ARU for rehab before discharge to Home on all current meds. 2. ESRD on PD: nephro consult. Permacath in place by Dr. Ramirez if HD required. Pt will recieve HD while in ARU but will be switched back to PD on discharge. 3. Anemia: Corrected by transfusion as in-pt, Hgb 8.9 on last CBC 4. Hypokalemia: replaced as in-pt, repeat K: 3.7 on last CMP 3. R hallux pain: severe PAD. pain control as above. Vascular service following. Plavix. ASA. Podiatry consult as per Dr. Donohue. 4. HTN: Off BB secondary to episodes of hypotension 5. Hyponatremia. Pts serum Na is 136 on last CMP, she did recieve salt tabs as in pt. 6. Non sustained vtach on tele: resolved, on no meds secondary to episodes of hypotension, clinical monitoring recommended. Vital Signs/I&O Vital Signs Date Time Temp Pulse Resp B/P (MAP) Pulse Ox O2 Delivery O2 Flow Rate FiO2 11/28/19 13:30 18 11/28/19 05:41 97.6 69 150/74 (99) 96 Room Air I&O- Last 24 Hours up to 6 AM 11/28/19 06:00 Intake Total 300 ml Balance 300 ml Laboratory Data Labs 24H Laboratory Tests 2 11/28/19 07:26: Immature Granulocyte % (Auto) 0.4, Neutrophils (%) (Auto) 59.1, Lymphocytes (%) (Auto) 23.2L, Monocytes (%) (Auto) 9.7H, Eosinophils (%) (Auto) 7.2H, Basophils (%) (Auto) 0.4, Neutrophils # (Auto) 4.3, Lymphocytes # (Auto) 1.7, Monocytes # (Auto) 0.7, Eosinophils # (Auto) 0.5, Basophils # (Auto) 0.0, Nucleated Red Blood Cells % (auto) 0.0, Anion Gap 13, Glomerular Filtration Rate 6.4L, Calcium Level 8.8, Total Bilirubin 0.4, Aspartate Amino Transf (AST/SGOT) 23, Alanine Aminotransferase (ALT/SGPT) 8L, Alkaline Phosphatase 133H, Total Protein 5.1L, Albumin 1.8L, Albumin/Globulin Ratio 0.5 CBC/BMP Laboratory Tests 11/28/19 07:26 Allergies Coded Allergies: amlodipine (Verified Allergy, Unknown, 09/07/19) indomethacin (Verified Allergy, Unknown, 09/07/19) nifedipine (Verified Allergy, Unknown, 09/07/19) oxycodone (Unverified Allergy, Unknown, 11/21/19) NSAIDS (Non-Steroidal Anti-Inflamma (Verified Adverse Reaction, Intermediate, RECTAL BLEEDING, 09/07/19) TAKES 81MG ASA AT HOME FINE hydralazine (Verified Adverse Reaction, Mild, ELEVATED BP, 09/07/19) minoxidil (Verified Adverse Reaction, Mild, SWELLING, 11/21/19) Opioids - Morphine Analogues (Verified Adverse Reaction, Unknown, DIALYSIS PT, 09/14/19) epoetin beta (Verified Adverse Reaction, Unknown, 11/22/19) Hyporesponsive Home Medications Scheduled Aspirin (Aspir 81) 81 Mg Tablet.dr, 81 MG PO DAILY for pain for 30 Days, #30 (Reported) Atorvastatin Calcium (Atorvastatin Calcium) 40 Mg Tablet, 40 MG PO QHS, (Reported) Cinacalcet HCl (Sensipar) 60 Mg Tablet, 60 MG PO 3XWP, (Reported) Clopidogrel Bisulfate (Clopidogrel) 75 Mg Tablet, 75 MG PO DAILY, (Reported) Docusate Sodium (Colace) 100 Mg Capsule, 100 MG PO BIDP, (Reported) Epoetin [place] (Epogen) 20,000 Unit/1 Ml Vial, 20,000 UNIT INJ ASDIRECTED, (Report ed) EVERY 2 WEEKS Heparin Sodium,Porcine/Pf (Heparin 1,000 Unit/10 (100/ml)) 1,000 Unit/10 Ml Syringe, 1,500 UNIT IV QWEEK, (Reported) GIVEN AT DIALYSIS ON MONDAYS Midodrine HCl (Midodrine HCl) 5 Mg Tablet, 5 MG PO DAILY, (Reported) Multivitamins (Thera M Plus Tablet) 1 Each Tablet, 1 TAB PO DAILY, (Reported) Omeprazole (Omeprazole) 20 Mg Capsule.dr, 20 MG PO DAILY, (Reported) Potassium Chloride (K-Tab ER) 10 Meq Tablet.er, 20 MEQ PO DAILY, (Reported) Sevelamer Carbonate (Renvela) 800 Mg Tablet, 800 MG PO WM, (Reported) Scheduled PRN Hydrocodone/Acetaminophen (Hydrocodone-Acetamin 5-300 mg) 1 Each Tablet, 1 TAB PO Q6HP PRN for PAIN, (Reported) Ipratropium/Albuterol Sulfate (Iprat-Albut 0.5-3(2.5) mg/3 ml) 3 Ml Ampul.neb, 1 VIAL NEB Q4H PRN for SOB/WHEEZING, (Reported) DUDLEY VEGA MD Nov 28, 2019 14:25
--- NOTE | 2019-11-28 14:54 | HPEPDOC ---
Suction Plate Carrier Cleaner Note DATE OF ADMISSION: 11-27-19 DATE OF SERVICE: 11-28-19 TIME OF ADMISSION: Please refer to physician's admission order. 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 Canseco for ischemic foot. He was followed by nephrology, received a blood transfusion for anemia and had his potassium repleted. He had an episode of non-sustained Vtach and was treated with a beta- marlo. His pain was managed with valium and opioids and per patient he did not tolerate these medications well as they make him confused and impeded his participation in therapy. He was evaluated by therapy, found to have impairments in mobility and ADLs and deemed medically appropriate for discharge to ARU on 11-27-19. REVIEW OF SYSTEMS: The following is a completed review of systems and has been reviewed. Review of systems otherwise unremarkable. PAIN: Patient self reports left residual limb pain and right toe burning pain EYES: No recent vision changes EARS, NOSE, & THROAT: No throat pain, or dysphagia, or rhinorrhea CARDIOVASCULAR: Denies chest pain or palpitations PULMONARY: Denies shortness of breath GASTROINTESTINAL: Denies constipation/diarrhea GENITOURINARY: anuric MUSCULOSKELETAL: left BKA NEUROLOGICAL:+neuropathic pain HEMATOLOGICAL: +anemia SKIN: right first toe gangrene, right heel pressure ulcer, and left BKA incision PSYCHIATRIC: Unremarkable All other review of systems found to be negative. PAST MEDICAL HISTORY: as per HPI PAST SURGICAL HISTORY: as per HPI ALLERGIES: Please see below. MEDICATIONS: Please see below. SOCIAL HISTORY: former ETOH/illicit drugs/smoking DIET: regular, fluid restrict PHYSICAL EXAMINATION: VITAL SIGNS: Please see below. GENERAL: Pleasant and cooperative. No acute distress HEENT: PERRL. Extraocular movements intact. Clear conjunctiva CARDIOVASCULAR: Regular rate and rhythm. No murmurs, rubs, or gallops LUNGS: Clear to auscultation bilaterally. No wheezes. No rhonchi ABDOMEN: Soft, nontender, nondistended. Positive bowel sounds. Normal active bowel sounds NEUROLOGICAL: Alert and oriented times three. Cranial nerves II through XII grossly intact. Sensation grossly intact in all 4limbs EXTREMITIES: 5\5 strength bilateral upper extremities. 4\5 strength right lower extremity except 1/5 right EHL. 4/5 strength in left hip flexors and knee extensors SKIN: stage 2 right heel ulcer, gangrenous right 1st toe, left residual limb with danielito and sutures without induration/erythema/drainage LABORATORY DATA: Please see below. IMAGING: Imaging documentation personally reviewed by record FUNCTIONAL STATUS: Premorbid: requiring assistance for activities of daily life as well as mobility On Admission: Max assist for bed mobility, functional transfers, dressing, toileting GOALS: Min assist-Contact guard for transfers, dressing, toileting, bathing ASSESSMENT:79-year-old M with past medical history of bilateral nephrectomies who presents status post left BKA PLAN: 1. Rehab- PT/OT advance mobility, caregiver training, limb care, stretch/strengthen/maintain ROM all 4 limbs 2. Neuro- patient with neuropathic pain in setting of peripheral neuropathy due to PVD will trial Pamelor -patient with known hx of delirium often pain medication/dialysis induced, will monitor and make necessary adjustments while on ARU 3. Cardiac- chronic CHF, will fluid restrict to 1800cc, daily weights, patient refusing renal diet, will defer fluid management to renal while on HD -midodrine ordered with holding parameters for hypotension -medicine consulted for assistance with overall care 4. Resp- monitor for infection, incentive spirometry 5. 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 Renal- patient converting to HD from PD, renal consulted in setting of bilateral nephrectomies -cinacalcet and sevelmar 7. Heme- anemia of chronic disease, will defer to renal for management 8. Pain- will d/c hydrocodone and start Pamelor for nerve pain, c/u Tylenol 9. Skin- dressing changes per wound care instructions 10. GI- omeprazole 11. DVT ppx- heparin 12. Dispo- TBD POST ADMISSION PHYSICIAN EVALUATION: Medical and functional status: Description of medical status, medical assessment: As above. Rehabilitation diagnosis and current and prior cold morbid medical conditions as above. Risk of complications and plans to mitigate them as above. Description of functional status current status is as above. Prior status as above. Status compared to preadmission: There are no clinically significant differences between the patient's current status and the information described on the preadmission screening document. Treatment plan anticipated: Treatment plan is as described above. Required disci plines including physical therapy, occupational therapy, others as noted above. Intensity of services: 3 hours a day, 6 days a week. Special considerations: There are no specific special or safety considerations that would likely preclude immediate implementation of an intensive rehabilitation program or subsequently influence the plan of care. ATTESTATION: Considering all the information above, it is my best judgment that this patient requires intensive rehabilitation therapy as described above and an inpatient hospital environment due to the complexity of nursing, medical, and rehabilitation needs required by the patient. Furthermore, this patient can reasonably be expected to participate in an benefit from an inpatient rehabilitation stay with an interdisciplinary team approach to the delivery of rehabilitation care under the direction and supervision of rehabilitation physician. PROGNOSIS:good ESTIMATED LENGTH OF STAY:12-14 days. PROJECTED DISCHARGE DESTINATION: Home with family support and any durable medical equipment required to increase functional safety and mobility. TIME SPENT COUNSELING AND COORDINATING INITIAL CARE: Greater than 70 minutes. Vital Signs Vital Sign - Last 24 Hours 11/27/19 11/27/19 11/27/19 11/28/19 16:30 19:09 20:00 05:41 Temp 98.4 97.1 97.6 Pulse 82 84 69 Resp 18 19 18 18 B/P (MAP) 131/65 (87) 142/74 (96) 150/74 (99) Pulse Ox 97 97 96 O2 Delivery Room Air Room Air Room Air 11/28/19 11/28/19 12:51 13:30 Resp 18 18 Laboratory Data CBC/BMP Laboratory Tests 11/28/19 07:26 Labs 24H Laboratory Tests 2 11/28/19 07:26: Immature Granulocyte % (Auto) 0.4, Neutrophils (%) (Auto) 59.1, Lymphocytes (%) (Auto) 23.2L, Monocytes (%) (Auto) 9.7H, Eosinophils (%) (Auto) 7.2H, Basophils (%) (Auto) 0.4, Neutrophils # (Auto) 4.3, Lymphocytes # (Auto) 1.7, Monocytes # (Auto) 0.7, Eosinophils # (Auto) 0.5, Basophils # (Auto) 0.0, Nucleated Red Blood Cells % (auto) 0.0, Anion Gap 13, Glomerular Filtration Rate 6.4L, Calcium Level 8.8, Total Bilirubin 0.4, Aspartate Amino Transf (AST/SGOT) 23, Alanine Aminotransferase (ALT/SGPT) 8L, Alkaline Phosphatase 133H, Total Protein 5.1L, Albumin 1.8L, Albumin/Globulin Ratio 0.5 Home Medications Scheduled Aspirin (Aspir 81) 81 Mg Tablet.dr, 81 MG PO DAILY, (Reported) Atorvastatin Calcium (Atorvastatin Calcium) 40 Mg Tablet, 40 MG PO QHS, (Reported) Cinacalcet HCl (Sensipar) 60 Mg Tablet, 60 MG PO 3XWP, (Reported) Clopidogrel Bisulfate (Clopidogrel) 75 Mg Tablet, 75 MG PO DAILY, (Reported) Docusate Sodium (Colace) 100 Mg Capsule, 100 MG PO BIDP, (Reported) Epoetin Irving (Epogen) 20,000 Unit/1 Ml Vial, 20,000 UNIT INJ ASDIRECTED, (Reported) EVERY 2 WEEKS Heparin Sodium,Porcine/Pf (Heparin 1,000 Unit/10 (100/ml)) 1,000 Unit/10 Ml Syringe, 1,500 UNIT IV QWEEK, (Reported) GIVEN AT DIALYSIS ON MONDAYS Midodrine HCl (Midodrine HCl) 5 Mg Tablet, 5 MG PO DAILY, (Reported) Multivitamins (Thera M Plus Tablet) 1 Each Tablet, 1 TAB PO DAILY, (Reported) Omeprazole (Omeprazole) 20 Mg Capsule.dr, 20 MG PO DAILY, (Reported) Potassium Chloride (K-Tab ER) 10 Meq Tablet.er, 20 MEQ PO DAILY, (Reported) Sevelamer Carbonate (Renvela) 800 Mg Tablet, 800 MG PO WM, (Reported) Scheduled PRN Hydrocodone/Acetaminophen (Hydrocodone-Acetamin 5-300 mg) 1 Each Tablet, 1 TAB PO Q6HP PRN for PAIN, (Reported) Ipratropium/Albuterol Sulfate (Iprat-Albut 0.5-3(2.5) mg/3 ml) 3 Ml Ampul.neb, 1 VIAL NEB Q4H PRN for SOB/WHEEZING, (Reported) Allergies Coded Allergies: amlodipine (Verified Allergy, Unknown, 09/07/19) indomethacin (Verified Allergy, Unknown, 09/07/19) nifedipine (Verified Allergy, Unknown, 09/07/19) oxycodone (Unverified Allergy, Unknown, 11/21/19) NSAIDS (Non-Steroidal Anti-Inflamma (Verified Adverse Reaction, Intermediate, RECTAL BLEEDING, 09/07/19) TAKES 81MG ASA AT HOME FINE hydralazine (Verified Adverse Reaction, Mild, ELEVATED BP, 09/07/19) minoxidil (Verified Adverse Reaction, Mild, SWELLING, 11/21/19) Opioids - Morphine Analogues (Verified Adverse Reaction, Unknown, DIALYSIS PT, 09/14/19) epoetin beta (Verified Adverse Reaction, Unknown, 11/22/19) Hyporesponsive A-FIB/CHADSVASC A-FIB History Current/History of A-Fib/PAF?: No Current PO Anticoag Therapy: No JEFFERY CANTU MD Nov 28, 2019 14:54
[2019-11-28] MEDS: ACETAMINOPHEN 500 MG TAB PO SCH ×2 (17:52→21:17)
[2019-11-28 20:23] VITALS: BP 159/78
[2019-11-28] MEDS: SENNA 8.6 MG TAB (SENOKOT) PO SCH (21:15)
[2019-11-28] MEDS: ATORVASTATIN 20 MG TAB PO SCH (21:16)
[2019-11-28] MEDS: NORTRIPTYLINE 10 MG CAP PO SCH (21:16)
[2019-11-28] MEDS: CINACALCET 30 MG TAB (SENSIPAR) PO SCH (21:19)
[2019-11-29 06:00] VITALS: BP 141/71
[2019-11-29] MEDS: IPRATROPIUM 0.5MG/ALBUTEROL 2.5MG INH SOL UD 3ML (DUONEB) NEB SCH ×3 (06:19→18:15)
[2019-11-29] MEDS: HEPARIN SOD (PORCINE) 5000UNITS/ML 1ML VIAL/SYRINGE SC SCH ×3 (09:00→21:00)
[2019-11-29] MEDS: DOCUSATE SODIUM 100 MG CAP PO SCH ×2 (09:24→18:00)
[2019-11-29] MEDS: ASPIRIN 81 MG ENTERIC TAB PO SCH (09:24)
[2019-11-29] MEDS: POTASSIUM CHLORIDE 10 MEQ SR TABLET PO SCH ×2 (09:24→18:00)
[2019-11-29] MEDS: MULTIVITAMINS/MINERALS THERAP 1 TAB PO SCH (09:24)
[2019-11-29] MEDS: CLOPIDOGREL 75 MG TAB PO SCH (09:24)
[2019-11-29] MEDS: OMEPRAZOLE 20 MG CAP PO SCH (09:24)
[2019-11-29] MEDS: (RENVELA) SEVELAMER **CARBONate** 800 MG TAB PO SCH ×3 (09:24→19:20)
[2019-11-29] MEDS: MIDODRINE 5 MG TAB PO SCH ×3 (09:25→14:48)
[2019-11-29] MEDS: ACETAMINOPHEN 500 MG TAB PO SCH ×3 (09:25→21:18)
[2019-11-29] MEDS: REMEDY PHYTOPLEX Z-GUARD PASTE 113GM TUBE (FROM STOREROOM PRODUCT) TOP SCH ×2 (17:00→21:19)
--- NOTE | 2019-11-29 17:09 | IPNPDOC ---
PM&R Progress Note DATE OF SERVICE: Nov 29, 2019 Light Rail Operator Progress Note Subjective: Patient reporting he continues to have pain in his right toe, but does not feel more tired or confused today since starting Pamelor. REVIEW OF SYSTEMS: The following is a completed review of systems and has been reviewed. Review of systems otherwise unremarkable. PAIN: Patient self reports left residual limb pain and right toe burning pain EYES: No recent vision changes EARS, NOSE, & THROAT: No throat pain, or dysphagia, or rhinorrhea CARDIOVASCULAR: Denies chest pain or palpitations PULMONARY: Denies shortness of breath GASTROINTESTINAL: Denies constipation/diarrhea GENITOURINARY: anuric MUSCULOSKELETAL: left BKA NEUROLOGICAL:+neuropathic pain HEMATOLOGICAL: +anemia SKIN: right first toe gangrene, right heel pressure ulcer, and left BKA incision PSYCHIATRIC: Unremarkable All other review of systems found to be negative. PHYSICAL EXAMINATION: VITAL SIGNS: Please see below. GENERAL: Pleasant and cooperative. No acute distress HEENT: PERRL. Extraocular movements intact. Clear conjunctiva CARDIOVASCULAR: Regular rate and rhythm. No murmurs, rubs, or gallops LUNGS: Clear to auscultation bilaterally. No wheezes. No rhonchi ABDOMEN: Soft, nontender, nondistended. Positive bowel sounds. Normal active bowel sounds NEUROLOGICAL: Alert and oriented times three. Cranial nerves II through XII grossly intact. Sensation grossly intact in all 4limbs EXTREMITIES: 5\5 strength bilateral upper extremities. 4\5 strength right lower extremity except 1/5 right EHL. 4/5 strength in left hip flexors and knee extensors SKIN: stage 2 right heel ulcer, gangrenous right 1st toe, left residual limb with danielito and sutures without induration/erythema/drainage +sacral ulcer ASSESSMENT:79-year-old M with past medical history of bilateral nephrectomies who presents status post left BKA PLAN: 1. Rehab- PT/OT advance mobility, caregiver training, limb care, stretch/strengthen/maintain ROM all 4 limbs 2. Neuro- patient with neuropathic pain in setting of peripheral neuropathy due to PVD will trial Pamelor -patient with known hx of delirium often pain medication/dialysis induced, will monitor and make necessary adjustments while on ARU 3. Cardiac- chronic CHF, will fluid restrict to 1800cc, daily weights, patient refusing renal diet, will defer fluid management to renal while on HD -midodrine ordered with holding parameters for hypotension -medicine consulted for assistance with overall care 4. Resp- monitor for infection, incentive spirometry 5. 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 Renal- patient converting to HD from PD, renal consulted in setting of bilateral nephrectomies -cinacalcet and sevelmar 7. Heme- anemia of chronic disease, will defer to renal for management 8. Pain- d/c'd hydrocodone, c/u Pamelor for nerve pain, c/u Tylenol 9. Skin- dressing changes per wound care instructions, c/u barrier cream to sacrum, patient with hx of sacral ulcers 10. GI- omeprazole 11. DVT ppx- heparin 12. Dispo- TBD Allergies Coded Allergies: amlodipine (Verified Allergy, Unknown, 09/07/19) indomethacin (Verified Allergy, Unknown, 09/07/19) nifedipine (Verified Allergy, Unknown, 09/07/19) oxycodone (Unverified Allergy, Unknown, 11/21/19) NSAIDS (Non-Steroidal Anti-Inflamma (Verified Adverse Reaction, Intermediate, RECTAL BLEEDING, 09/07/19) TAKES 81MG ASA AT HOME FINE hydralazine (Verified Adverse Reaction, Mild, ELEVATED BP, 09/07/19) minoxidil (Verified Adverse Reaction, Mild, SWELLING, 11/21/19) Opioids - Morphine Analogues (Verified Adverse Reaction, Unknown, DIALYSIS PT, 09/14/19) epoetin beta (Verified Adverse Reaction, Unknown, 11/22/19) Hyporesponsive Vital Signs Vital Signs Date Time Temp Pulse Resp B/P (MAP) Pulse Ox O2 Delivery O2 Flow Rate FiO2 11/29/19 06:20 20 11/29/19 06:00 97.4 67 141/71 (94) 98 Room Air Current Medications Current Medications Current Medications Medications (Trade) Dose Ordered Sig/Damien Route PRN Reason Start Time Stop Time Status Last Admin Dose Admin Acetaminophen (Tylenol Tab) 1,000 mg Q6HP PRN PO MILD PAIN (PS 1-4) 11/27/19 16:00 11/28/19 15:00 DC 11/28/19 06:31 Acetaminophen (Tylenol Tab) 1,000 mg TID PO 11/28/19 16:00 11/29/19 09:25 Acetaminophen/ Hydrocodone Bitart ([place], Anexsia 5/325) 1 tab Q6HP PRN PO MILD/MODERATE PAIN (PS 1-7) 11/27/19 16:00 11/28/19 15:00 DC 11/28/19 12:51 Albuterol/ Ipratropium (Duoneb (Ipr 0.5mg/Alb 2.5mg)) 3 ml RTID NEB 11/27/19 20:00 11/29/19 06:19 Aspirin (Ecotrin) 81 mg DAILY PO 11/28/19 09:00 11/29/19 09:24 Atorvastatin Calcium (Lipitor) 40 mg QHS PO 11/27/19 21:00 11/28/19 21:16 Cinacalcet (Sensipar) 60 mg MoWeFr@2100 PO 11/28/19 21:00 11/28/19 21:19 Clopidogrel Bisulfate (PLAVix) 75 mg DAILY PO 11/28/19 09:00 11/29/19 09:24 Darbepoetin Irving (Aranesp (Dialysis Use)) 200 mcg HD IV 11/28/19 11:45 Docusate Sodium (Colace) 100 mg BID PO 11/27/19 21:00 11/29/19 09:24 Heparin Sodium (Porcine) (Heparin) 5,000 units Q12H SC 11/27/19 21:00 11/28/19 21:15 Home Med (Med Rec Complete!) ASDIRECTED XX 11/27/19 17:30 11/27/19 17:32 DC Iron (Venofer) 100 mg HD IV 11/28/19 11:45 12/13/19 21:00 Midodrine (Proamatine) 5 mg 0900,1300,1700 PO 11/27/19 17:00 11/29/19 14:48 Multivitamins (Theragram-M) 1 tab DAILY PO 11/28/19 09:00 11/29/19 09:24 Nortriptyline HCl (Pamelor) 10 mg QHS PO 11/28/19 21:00 11/28/19 21:16 Omeprazole (PriLOSEC) 40 mg DAILY PO 11/28/19 09:00 11/29/19 09:24 Potassium Chloride (Micro-K Extencaps) 20 meq BID PO 11/27/19 21:00 11/29/19 09:24 Senna (Senokot) 1 tab QHS PO 11/27/19 21:00 11/28/19 21:15 Sevelamer Carbonate (Renvela) 800 mg WM PO 11/27/19 18:00 11/29/19 09:24 JEFFERY CANTU MD Nov 29, 2019 17:09
[2019-11-29 20:00] VITALS: BP 160/88
[2019-11-29] MEDS: NORTRIPTYLINE 10 MG CAP PO SCH (21:16)
[2019-11-29] MEDS: ATORVASTATIN 20 MG TAB PO SCH (21:17)
[2019-11-30 06:00] VITALS: BP 150/70
[2019-11-30] MEDS: IPRATROPIUM 0.5MG/ALBUTEROL 2.5MG INH SOL UD 3ML (DUONEB) NEB SCH ×3 (07:20→18:07)
[2019-11-30] MEDS: (RENVELA) SEVELAMER **CARBONate** 800 MG TAB PO SCH ×3 (07:43→16:34)
[2019-11-30] MEDS: OMEPRAZOLE 20 MG CAP PO SCH (07:44)
[2019-11-30] MEDS: ASPIRIN 81 MG ENTERIC TAB PO SCH (07:44)
[2019-11-30] MEDS: CLOPIDOGREL 75 MG TAB PO SCH (07:44)
[2019-11-30] MEDS: MULTIVITAMINS/MINERALS THERAP 1 TAB PO SCH (07:44)
[2019-11-30] MEDS: HEPARIN SOD (PORCINE) 5000UNITS/ML 1ML VIAL/SYRINGE SC SCH ×2 (07:44→20:08)
[2019-11-30] MEDS: ACETAMINOPHEN 500 MG TAB PO SCH ×3 (07:44→20:08)
[2019-11-30] MEDS: REMEDY PHYTOPLEX Z-GUARD PASTE 113GM TUBE (FROM STOREROOM PRODUCT) TOP SCH ×4 (07:45→20:08)
[2019-11-30] MEDS: POTASSIUM CHLORIDE 10 MEQ SR TABLET PO SCH ×2 (07:55→16:34)
[2019-11-30] MEDS: DOCUSATE SODIUM 100 MG CAP PO SCH ×2 (07:55→16:34)
[2019-11-30] MEDS: MIDODRINE 5 MG TAB PO SCH ×3 (07:55→16:35)
--- NOTE | 2019-11-30 09:52 | IPNPDOC ---
Subjective Date Seen The patient was seen on 11/30/19. Subjective Chief Complaint/HPI pt is comfortable, doing very well with PT/OT, pt examined at bed side, Occupational therapist also at bedside. General: Denies: ROS Unobtainable, Chills, Night Sweats, Fatigue, Malaise, Normal Appetite, Other Symptoms Constitutional: Denies: Chills, Fever, Malaise, Night Sweats, Weakness, Fatigue, Weight Loss, Lethargy, Other Pulmonary: Denies: Dyspnea, Cough, Pleuritic Chest Pain, Other Symptoms Cardiovascular: Denies: Chest Pain, Palpitations, Orthopnea, Paroxysmal Noc. Dyspnea, Edema, Lt Headedness, Other Symptoms Gastrointestinal: Denies: Nausea, Vomiting, Abdominal Pain, Diarrhea, Constipation, Melena, Hematochezia, Other Symptoms Endocrine: Denies: Polydipsia, Polyphagia, Polyuria, Heat Intolerance, Cold Intolerance, Other Endocrine Sx Musculoskeletal: Denies: Neck Pain, Back Pain, Shoulder Pain, Arm Pain, Hand Pain, Leg Pain, Foot Pain, Joint Pain, Muscle Pain, Spasms, Other Symptoms Neurological: Denies: Weakness, Numbness, Incoordination, Change in speech, Confusion, Seizures, Other Symptoms Objective Physical Examination ENT Exam: Positive: Atraumatic Neck Exam: Positive: Supple Chest Exam: Positive: Clear to auscultation, Normal air movement Heart Exam: Positive: Rate Normal, Normal S1 Abdomen Exam: Positive: Normal bowel sounds, Soft, Tenderness Extremity Exam: Positive: Other (dsg at rt big toe and heel) Skin Exam: Positive: Nl turgor and temperature Neuro Exam: Positive: Normal Speech, Strength at 5/5 X4 ext, Sensation Intact, Cranial Nerves 3-12 NL Assessment /Plan Problems (1) Below-knee amputation of left lower extremity Status: Acute (2) HTN (hypertension) Status: Chronic (3) CHF (congestive heart failure) Status: Chronic (4) CAD (coronary artery disease) Status: Chronic (5) End stage renal disease Status: Chronic Plan/VTE VTE Prophylaxis Ordered?: Yes Plan 1. S/p BKA:pain control with [place] 325/5 q6h prn for moderate-severe pain. Acetaminophen 1000 mg q8h PO sched. Bowel regimen. PT/OT. DVT ppx as per orders, Pt was admitted to ARU for rehab before discharge to Home on all current meds. PT/OT in progress, progressing very well, improved endurance evry day 2. ESRD on PD: nephro consult. Permacath in place by Dr. Ramirez if HD required. Pt will recieve HD while in ARU but will be switched back to PD on discharge. 3. Anemia: Corrected by transfusion as in-pt, Hgb 8.9 on last CBC, repeat lab work ordered. 4. Hypokalemia: replaced as in-pt, repeat K: 3.7 on last CMP 3. R hallux pain: severe PAD. pain control as above. Vascular service following. Plavix. ASA. Podiatry consult as per Dr. Donohue. 4. HTN: Off BB secondary to episodes of hypotension 5. Hyponatremia. Pts serum Na is 136 on last CMP, she did recieve salt tabs as in pt. 6. Non sustained vtach on tele: resolved, on no meds secondary to episodes of hypotension, clinical monitoring recommended. VS, I&O, 24H, Fishbone Vital Signs/I&O Vital Signs Date Time Temp Pulse Resp B/P (MAP) Pulse Ox O2 Delivery O2 Flow Rate FiO2 11/30/19 06:00 97.8 69 18 150/70 (96) 97 Room Air I&O- Last 24 Hours up to 6 AM 11/30/19 06:00 Intake Total 960 ml Output Total 550 ml Balance 410 ml DUDLEY VEGA MD Nov 30, 2019 09:51
--- NOTE | 2019-11-30 10:16 | IPNPDOC ---
PM&R Progress Note DATE OF SERVICE: Nov 30, 2019 Senior Painter Progress Note Subjective: Patient reporting he thinks his right toe pain is slightly better and would like to try increasing the dose of Pamelor. He states he feels tired, but able to do therapy. REVIEW OF SYSTEMS: The following is a completed review of systems and has been reviewed. Review of systems otherwise unremarkable. PAIN: Patient self reports left residual limb pain and right toe burning pain EYES: No recent vision changes EARS, NOSE, & THROAT: No throat pain, or dysphagia, or rhinorrhea CARDIOVASCULAR: Denies chest pain or palpitations PULMONARY: Denies shortness of breath GASTROINTESTINAL: Denies constipation/diarrhea GENITOURINARY: anuric MUSCULOSKELETAL: left BKA NEUROLOGICAL:+neuropathic pain HEMATOLOGICAL: +anemia SKIN: right first toe gangrene, right heel pressure ulcer, and left BKA incision PSYCHIATRIC: Unremarkable All other review of systems found to be negative. PHYSICAL EXAMINATION: VITAL SIGNS: Please see below. GENERAL: Pleasant and cooperative. No acute distress HEENT: PERRL. Extraocular movements intact. Clear conjunctiva CARDIOVASCULAR: Regular rate and rhythm. No murmurs, rubs, or gallops LUNGS: Clear to auscultation bilaterally. No wheezes. No rhonchi ABDOMEN: Soft, nontender, nondistended. Positive bowel sounds. Normal active trisha wel sounds NEUROLOGICAL: Alert and oriented times three. Cranial nerves II through XII grossly intact. Sensation grossly intact in all 4limbs EXTREMITIES: 5\5 strength bilateral upper extremities. 4\5 strength right lower extremity except 1/5 right EHL. 4/5 strength in left hip flexors and knee extensors SKIN: stage 2 right heel ulcer, gangrenous right 1st toe, left residual limb with danielito and sutures without induration/erythema/drainage +sacral ulcer ASSESSMENT:79-year-old M with past medical history of bilateral nephrectomies who presents status post left BKA PLAN: 1. Rehab- PT/OT advance mobility, caregiver training, limb care, stretch/strengthen/maintain ROM all 4 limbs 2. Neuro- patient with neuropathic pain in setting of peripheral neuropathy due to PVD will trial Pamelor -patient with known hx of delirium often pain medication/dialysis induced, will monitor and make necessary adjustments while on ARU 3. Cardiac- chronic CHF, will fluid restrict to 1800cc, daily weights, patient refusing renal diet, will defer fluid management to renal while on HD -midodrine ordered with holding parameters for hypotension -medicine consulted for assistance with overall care 4. Resp- monitor for infection, incentive spirometry 5. 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 Renal- patient converting to HD from PD, renal consulted in setting of bilateral nephrectomies -cinacalcet and sevelmar 7. Heme- anemia of chronic disease, will defer to renal for management 8. Pain- d/c'd hydrocodone, c/u Pamelor for nerve pain will increase to 10mg BID and monitor, c/u Tylenol 9. Skin- dressing changes per wound care instructions, c/u barrier cream to sacrum, patient with hx of sacral ulcers 10. GI- omeprazole 11. DVT ppx- heparin 12. Dispo- TBD Allergies Coded Allergies: amlodipine (Verified Allergy, Unknown, 09/07/19) indomethacin (Verified Allergy, Unknown, 09/07/19) nifedipine (Verified Allergy, Unknown, 09/07/19) oxycodone (Unverified Allergy, Unknown, 11/21/19) NSAIDS (Non-Steroidal Anti-Inflamma (Verified Adverse Reaction, Intermediate, RECTAL BLEEDING, 09/07/19) TAKES 81MG ASA AT HOME FINE hydralazine (Verified Adverse Reaction, Mild, ELEVATED BP, 09/07/19) minoxidil (Verified Adverse Reaction, Mild, SWELLING, 11/21/19) Opioids - Morphine Analogues (Verified Adverse Reaction, Unknown, DIALYSIS PT, 09/14/19) epoetin beta (Verified Adverse Reaction, Unknown, 11/22/19) Hyporesponsive Vital Signs Vital Signs Date Time Temp Pulse Resp B/P (MAP) Pulse Ox O2 Delivery O2 Flow Rate FiO2 11/30/19 06:00 97.8 69 18 150/70 (96) 97 Room Air Current Medications Current Medications Current Medications Medications (Trade) Dose Ordered Sig/Damien Route PRN Reason Start Time Stop Time Status Last Admin Dose Admin Acetaminophen (Tylenol Tab) 1,000 mg Q6HP PRN PO MILD PAIN (PS 1-4) 11/27/19 16:00 11/28/19 15:00 DC 11/28/19 06:31 Acetaminophen (Tylenol Tab) 1,000 mg TID PO 11/28/19 16:00 11/30/19 07:44 Acetaminophen/ Hydrocodone Bitart (Tar Heel, Anexsia 5/325) 1 tab Q6HP PRN PO MILD/MODERATE PAIN (PS 1-7) 11/27/19 16:00 11/28/19 15:00 DC 11/28/19 12:51 Albuterol/ Ipratropium (Duoneb (Ipr 0.5mg/Alb 2.5mg)) 3 ml RTID NEB 11/27/19 20:00 11/30/19 07:20 Aspirin (Ecotrin) 81 mg DAILY PO 11/28/19 09:00 11/30/19 07:44 Atorvastatin Calcium (Lipitor) 40 mg QHS PO 11/27/19 21:00 11/29/19 21:17 Cinacalcet (Sensipar) 60 mg MoWeFr@2100 PO 11/28/19 21:00 11/28/19 21:19 Clopidogrel Bisulfate (PLAVix) 75 mg DAILY PO 11/28/19 09:00 11/30/19 07:44 Darbepoetin Irving (Aranesp (Dialysis Use)) 200 mcg HD IV 11/28/19 11:45 Docusate Sodium (Colace) 100 mg 0900,1800 PO 11/29/19 18:00 Docusate Sodium (Colace) 100 mg BID PO 11/27/19 21:00 11/29/19 17:09 DC 11/29/19 09:24 Heparin Sodium (Porcine) (Heparin) 5,000 units Q12H SC 11/27/19 21:00 11/30/19 07:44 Home Med (Med Rec Complete!) ASDIRECTED XX 11/27/19 17:30 11/27/19 17:32 DC Iron (Venofer) 100 mg HD IV 11/28/19 11:45 12/13/19 21:00 Midodrine (Proamatine) 5 mg 0900,1300,1700 PO 11/27/19 17:00 11/29/19 14:48 Multivitamins (Theragram-M) 1 tab DAILY PO 11/28/19 09:00 11/30/19 07:44 Nortriptyline HCl (Pamelor) 10 mg QHS PO 11/28/19 21:00 11/29/19 21:16 Omeprazole (PriLOSEC) 40 mg DAILY PO 11/28/19 09:00 11/30/19 07:44 Potassium Chloride (Micro-K Extencaps) 20 meq 0900,1800 PO 11/29/19 18:00 11/30/19 07:55 Potassium Chloride (Micro-K Extencaps) 20 meq BID PO 11/27/19 21:00 11/29/19 17:09 DC 11/29/19 09:24 Senna (Senokot) 1 tab QHS PO 11/27/19 21:00 11/29/19 17:09 DC 11/28/19 21:15 Sevelamer Carbonate (Renvela) 800 mg WM PO 11/27/19 18:00 11/30/19 07:43 JEFFERY CANTU MD Nov 30, 2019 10:16
[2019-11-30 10:40] LABS: BASO % 0.3 % (0.0-1.0); EOS # 0.5 10^3/uL (0.0-0.5); EOS % 7.2 % (0.0-3.0); HEMATOCRIT 25.5 % (42.0-52.0); HEMOGLOBIN 8.8 g/dl (13.5-17.5); LYMPH # 1.6 10^3/uL (1.5-5.0); LYMPH % 23.8 % (24.0-44.0); MEAN CORPUSCULAR HEMOGLOBIN 31.5 pg (27.0-33.0); MEAN CORPUSCULAR HGB CONC 34.5 g/dl (32.0-36.5); MEAN CORPUSCULAR VOLUME 91.4 fl (80.0-96.0); MONO # 0.7 10^3/uL (0.0-0.8); MONO % 10.3 % (0.0-5.0); NEUTROPHILS # 3.9 10^3/uL (1.5-8.5); PLATELET COUNT, AUTOMATED 259 10^3/uL (150-450); RED BLOOD COUNT 2.79 10^6/uL (4.30-6.10); WHITE BLOOD COUNT 6.8 10^3/uL (4.0-10.0)
[2019-11-30 10:59] LABS: CALCIUM LEVEL 8.9 MG/DL (8.8-10.2); CREATININE FOR GFR 6.95 MG/DL (0.70-1.30); POTASSIUM SERUM 4.1 MEQ/L (3.5-5.1)
[2019-11-30] MEDS: NORTRIPTYLINE 10 MG CAP PO SCH ×2 (12:21→20:07)
[2019-11-30 14:00] VITALS: BP 150/70
[2019-11-30 20:00] VITALS: BP 151/72
[2019-11-30] MEDS: CINACALCET 30 MG TAB (SENSIPAR) PO SCH (20:08)
[2019-11-30] MEDS: ATORVASTATIN 20 MG TAB PO SCH (20:08)
[2019-12-01 06:00] VITALS: BP 150/71
[2019-12-01] MEDS: IPRATROPIUM 0.5MG/ALBUTEROL 2.5MG INH SOL UD 3ML (DUONEB) NEB SCH ×3 (07:18→18:12)
[2019-12-01] MEDS: ASPIRIN 81 MG ENTERIC TAB PO SCH (08:25)
[2019-12-01] MEDS: (RENVELA) SEVELAMER **CARBONate** 800 MG TAB PO SCH ×3 (08:25→17:25)
[2019-12-01] MEDS: NORTRIPTYLINE 10 MG CAP PO SCH ×2 (08:25→20:37)
[2019-12-01] MEDS: ACETAMINOPHEN 500 MG TAB PO SCH ×3 (08:26→20:38)
[2019-12-01] MEDS: CLOPIDOGREL 75 MG TAB PO SCH (08:27)
[2019-12-01] MEDS: OMEPRAZOLE 20 MG CAP PO SCH (08:27)
[2019-12-01] MEDS: POTASSIUM CHLORIDE 10 MEQ SR TABLET PO SCH (08:27)
[2019-12-01] MEDS: MULTIVITAMINS/MINERALS THERAP 1 TAB PO SCH (08:27)
[2019-12-01] MEDS: DOCUSATE SODIUM 100 MG CAP PO SCH ×2 (08:27→16:29)
[2019-12-01] MEDS: MIDODRINE 5 MG TAB PO SCH ×3 (08:28→16:47)
[2019-12-01] MEDS: REMEDY PHYTOPLEX Z-GUARD PASTE 113GM TUBE (FROM STOREROOM PRODUCT) TOP SCH ×4 (09:00→20:38)
[2019-12-01] MEDS: HEPARIN SOD (PORCINE) 5000UNITS/ML 1ML VIAL/SYRINGE SC SCH ×2 (09:00→20:37)
[2019-12-01 14:00] VITALS: BP 164/76
[2019-12-01 20:00] VITALS: BP 166/96
[2019-12-01] MEDS: ATORVASTATIN 20 MG TAB PO SCH (20:37)
[2019-12-02 06:00] VITALS: BP 158/69
[2019-12-02] MEDS: IPRATROPIUM 0.5MG/ALBUTEROL 2.5MG INH SOL UD 3ML (DUONEB) NEB SCH ×3 (07:33→20:46)
[2019-12-02] MEDS: ASPIRIN 81 MG ENTERIC TAB PO SCH (08:20)
[2019-12-02] MEDS: HEPARIN SOD (PORCINE) 5000UNITS/ML 1ML VIAL/SYRINGE SC SCH ×2 (08:20→20:38)
[2019-12-02] MEDS: DOCUSATE SODIUM 100 MG CAP PO SCH ×2 (08:21→18:00)
[2019-12-02] MEDS: OMEPRAZOLE 20 MG CAP PO SCH (08:21)
[2019-12-02] MEDS: NORTRIPTYLINE 10 MG CAP PO SCH ×2 (08:21→20:37)
[2019-12-02] MEDS: CLOPIDOGREL 75 MG TAB PO SCH (08:21)
[2019-12-02] MEDS: MULTIVITAMINS/MINERALS THERAP 1 TAB PO SCH (08:21)
[2019-12-02] MEDS: (RENVELA) SEVELAMER **CARBONate** 800 MG TAB PO SCH ×5 (08:21→18:12)
[2019-12-02] MEDS: ACETAMINOPHEN 500 MG TAB PO SCH ×3 (08:26→20:38)
[2019-12-02] MEDS: MIDODRINE 5 MG TAB PO SCH ×3 (08:26→17:00)
[2019-12-02] MEDS: REMEDY PHYTOPLEX Z-GUARD PASTE 113GM TUBE (FROM STOREROOM PRODUCT) TOP SCH ×4 (08:27→20:39)
[2019-12-02 12:25] VITALS: BP_SYST 138; BP_SYST 170; BP_DIAS 82; BP_DIAS 88
[2019-12-02] MEDS: traMADol 50 MG TAB PO PRN ×2 (13:05→20:38)
[2019-12-02 14:00] VITALS: BP 184/93
[2019-12-02 14:10] VITALS: BP 128/84
[2019-12-02 20:00] VITALS: BP 141/82
[2019-12-02] MEDS: ATORVASTATIN 20 MG TAB PO SCH (20:37)
[2019-12-03 05:50] VITALS: BP 141/81
[2019-12-03] MEDS: IPRATROPIUM 0.5MG/ALBUTEROL 2.5MG INH SOL UD 3ML (DUONEB) NEB SCH ×3 (06:16→18:04)
[2019-12-03] MEDS: traMADol 50 MG TAB PO PRN (06:40)
[2019-12-03] MEDS: DOCUSATE SODIUM 100 MG CAP PO SCH ×2 (09:00→18:00)
[2019-12-03] MEDS: OMEPRAZOLE 20 MG CAP PO SCH (09:17)
[2019-12-03] MEDS: CLOPIDOGREL 75 MG TAB PO SCH (09:17)
[2019-12-03] MEDS: NORTRIPTYLINE 10 MG CAP PO SCH ×2 (09:17→20:50)
[2019-12-03] MEDS: (RENVELA) SEVELAMER **CARBONate** 800 MG TAB PO SCH ×3 (09:17→19:31)
[2019-12-03] MEDS: MULTIVITAMINS/MINERALS THERAP 1 TAB PO SCH (09:18)
[2019-12-03] MEDS: ACETAMINOPHEN 500 MG TAB PO SCH ×3 (09:18→20:52)
[2019-12-03] MEDS: ASPIRIN 81 MG ENTERIC TAB PO SCH (09:18)
[2019-12-03] MEDS: MIDODRINE 5 MG TAB PO SCH ×3 (09:18→17:00)
[2019-12-03] MEDS: HEPARIN SOD (PORCINE) 5000UNITS/ML 1ML VIAL/SYRINGE SC SCH ×2 (09:19→20:52)
[2019-12-03] MEDS: REMEDY PHYTOPLEX Z-GUARD PASTE 113GM TUBE (FROM STOREROOM PRODUCT) TOP SCH ×4 (09:19→20:52)
[2019-12-03 14:00] VITALS: BP 180/83
--- NOTE | 2019-12-03 16:41 | IPNPDOC ---
Text Note Date of Service The patient was seen on 12/03/19. NOTE SUBJECTIVE: Patient was seen and examined this morning sitting up comfortably in bed. He states he is feeling well and notices his strength is improving. He is not sure how long he will be in ARU before he is ready to return home. He is tolerating HD sessions. OBJECTIVE: PHYSICAL EXAMINATION: VITAL SIGNS: Please see below. GENERAL: Alert, laying comfortably in bed, in no acute distress HEENT: NC, AT, moist mucous membranes CARDIOVASCULAR: RRR, normal S1 and S2 RESPIRATORY: CTAB, no wheezing, rhonchi, or rales ABDOMINAL: Soft, nontender, nondistended. EXTREMITIES: No edema. Left side BKA. Clean dressing on the right great toe. ASSESSMENT/PLAN: 79 year old male with a history of ESRD, admitted to ARU for continued rehab after left LE BKA. 1. ESRD on peritoneal dialysis at home, currently on hemodialysis while in acute rehab setting. Last HD session on Thursday 11/30 with 1000mL removed. Due for next session 12/03, lab recheck ordered. When the patient is discharged, his dialysis catheter can be removed and he can continue with PD at home. His PD catheter should be flushed by our PD nursing staff once a week while he remains in ARU. 2. Anemia. Venofer and Aranesp ordered to be given on dialysis days. 3. Hyperphosphatemia. Continue Renvela with meals. Thank you for the consultation on this patient, we will continue to follow along. VS,Fishbone, I+O VS, Fishbone, I+O Vital Signs Date Time Temp Pulse Resp B/P (MAP) Pulse Ox O2 Delivery O2 Flow Rate FiO2 12/03/19 14:00 97.3 83 16 180/83 (115) 99 Room Air I&O- Last 24 Hours up to 6 AM 12/03/19 06:00 Intake Total 640 ml Balance 640 ml GME ATTESTATION GME ATTESTATION My faculty preceptor for this patient encounter was physically present during the encounter and was fully available. All aspects of the patient interview, examination, medical decision making process, and medical care plan development were reviewed and approved by the faculty preceptor. The faculty preceptor is aware and concurs with the plan as stated in the body of this note and will attest to such by his/her cosignature. ATTENDING NOTE ESRD on HD while at Rehab Anemia in ESRd PVD s/p Lt BKA CKD-MBD Sec Hyperprathyroidism cont HD TTS schedule. Next HD tomorrow. Cont aranesp and Venofer Pain optimized at this time. Lt BKA dressing change as per Vascular surg. EVA KAPOOR D.O. Dec 03, 2019 16:41 ALEISHA KOCH MD Dec 03, 2019 21:42
[2019-12-03 20:00] VITALS: BP 149/72
[2019-12-03] MEDS: CINACALCET 30 MG TAB (SENSIPAR) PO SCH (20:50)
[2019-12-03] MEDS: ATORVASTATIN 20 MG TAB PO SCH (20:51)
[2019-12-04 04:58] VITALS: BP 150/78
[2019-12-04] MEDS: IPRATROPIUM 0.5MG/ALBUTEROL 2.5MG INH SOL UD 3ML (DUONEB) NEB SCH ×3 (07:10→18:33)
[2019-12-04 07:38] LABS: BASO % 0.4 % (0.0-1.0); EOS # 0.7 10^3/uL (0.0-0.5); EOS % 8.9 % (0.0-3.0); HEMATOCRIT 27.2 % (42.0-52.0); LYMPH # 1.6 10^3/uL (1.5-5.0); LYMPH % 21.4 % (24.0-44.0); MEAN CORPUSCULAR HGB CONC 33.1 g/dl (32.0-36.5); MEAN CORPUSCULAR VOLUME 93.8 fl (80.0-96.0); MONO # 0.6 10^3/uL (0.0-0.8); MONO % 7.7 % (0.0-5.0); NEUTROPHILS # 4.6 10^3/uL (1.5-8.5); NEUTROPHILS % 61.2 % (36.0-66.0); PLATELET COUNT, AUTOMATED 303 10^3/uL (150-450); WHITE BLOOD COUNT 7.5 10^3/uL (4.0-10.0)
[2019-12-04 08:03] LABS: CALCIUM LEVEL 9.9 MG/DL (8.8-10.2); CREATININE FOR GFR 8.56 MG/DL (0.70-1.30); GLOMERULAR FILTRATION RATE 7.8 (>42); POTASSIUM SERUM 5.3 MEQ/L (3.5-5.1)
[2019-12-04] MEDS: DOCUSATE SODIUM 100 MG CAP PO SCH ×2 (09:00→17:53)
[2019-12-04] MEDS: MIDODRINE 5 MG TAB PO SCH ×4 (09:00→17:00)
[2019-12-04] MEDS: REMEDY PHYTOPLEX Z-GUARD PASTE 113GM TUBE (FROM STOREROOM PRODUCT) TOP SCH ×4 (09:00→21:00)
[2019-12-04] MEDS: ASPIRIN 81 MG ENTERIC TAB PO SCH (09:44)
[2019-12-04] MEDS: ACETAMINOPHEN 500 MG TAB PO SCH ×3 (09:44→21:00)
[2019-12-04] MEDS: CLOPIDOGREL 75 MG TAB PO SCH (09:44)
[2019-12-04] MEDS: OMEPRAZOLE 20 MG CAP PO SCH (09:44)
[2019-12-04] MEDS: MULTIVITAMINS/MINERALS THERAP 1 TAB PO SCH (09:44)
[2019-12-04] MEDS: HEPARIN SOD (PORCINE) 5000UNITS/ML 1ML VIAL/SYRINGE SC SCH ×2 (09:45→20:59)
[2019-12-04] MEDS: (RENVELA) SEVELAMER **CARBONate** 800 MG TAB PO SCH ×3 (09:45→17:53)
[2019-12-04] MEDS: NORTRIPTYLINE 10 MG CAP PO SCH ×2 (09:45→17:50)
--- NOTE | 2019-12-04 13:31 | IPNPDOC ---
Text Note Date of Service The patient was seen on 12/04/19. NOTE SUBJECTIVE: Patient was seen and examined this morning sitting up comfortably in bed. He will be going to dialysis today for his session. H OBJECTIVE: PHYSICAL EXAMINATION: VITAL SIGNS: Please see below. GENERAL: Alert, laying comfortably in bed, in no acute distress HEENT: NC, AT, moist mucous membranes CARDIOVASCULAR: RRR, normal S1 and S2 RESPIRATORY: CTAB, no wheezing, rhonchi, or rales ABDOMINAL: Soft, nontender, nondistended. EXTREMITIES: No edema. Left side BKA. Clean dressing on the right great toe. ASSESSMENT/PLAN: 79 year old male with a history of ESRD, admitted to ARU for continued rehab after left LE BKA. 1. ESRD on peritoneal dialysis at home, currently on hemodialysis while in acute rehab setting on TThS schedule. He is due for HD session today. Labs showed Cr elevated at 8.56, potassium elevated at 5.4. When the patient is discharged, his dialysis catheter can be removed and he can continue with PD at home. His PD catheter should be flushed by our PD nursing staff once a week while he remains in ARU. 2. Anemia in ESRD. Venofer and Aranesp ordered to be given on dialysis days. Hg stable at 9.0. 3. Hyperkalemia. Patient with receive dialysis today to correct elevated potassium. 4. PVD s/p left BKA. Currently in acute rehab. Dressing change per vascular surgery. Pain control per primary team. 5. CKD-MBD with hyperphosphatemia. Continue Renvela with meals. 6. Secondary hyperparathyroidism. Thank you for the consultation on this patient, we will continue to follow along. VS,Fishbone, I+O VS, Fishbone, I+O Laboratory Tests 12/04/19 06:43 Vital Signs Date Time Temp Pulse Resp B/P (MAP) Pulse Ox O2 Delivery O2 Flow Rate FiO2 12/04/19 04:58 97.5 85 18 150/78 (102) 100 Room Air I&O- Last 24 Hours up to 6 AM 12/04/19 06:00 Intake Total 840 ml Balance 840 ml GME ATTESTATION GME ATTESTATION My faculty preceptor for this patient encounter was physically present during the encounter and was fully available. All aspects of the patient interview, examination, medical decision making process, and medical care plan development were reviewed and approved by the faculty preceptor. The faculty preceptor is aware and concurs with the plan as stated in the body of this note and will attest to such by his/her cosignature. ATTENDING NOTE ESRD on PD--> Switched to HD in Rehab Anemia in ESRD Hypotension PVd s/p Lt BKA CKD-MBD Hyperkalemia HD with 2K Bath today. Minimal fluid removal. Cont current Aranesp dose. Lt BKA wound care as per vascular and nursing. EVA KAPOOR D.O. Dec 04, 2019 13:31 ALEISHA KOCH MD Dec 04, 2019 17:08
[2019-12-04 20:00] VITALS: BP 136/86
[2019-12-04] MEDS: ATORVASTATIN 20 MG TAB PO SCH (21:00)
[2019-12-05 06:00] VITALS: BP 130/77
[2019-12-05] MEDS: IPRATROPIUM 0.5MG/ALBUTEROL 2.5MG INH SOL UD 3ML (DUONEB) NEB SCH ×3 (08:00→17:58)
[2019-12-05] MEDS: NORTRIPTYLINE 10 MG CAP PO SCH ×2 (08:05→17:26)
[2019-12-05] MEDS: MIDODRINE 5 MG TAB PO SCH ×3 (08:05→17:00)
[2019-12-05] MEDS: ACETAMINOPHEN 500 MG TAB PO SCH ×3 (08:05→20:43)
[2019-12-05] MEDS: (RENVELA) SEVELAMER **CARBONate** 800 MG TAB PO SCH ×3 (08:06→17:26)
[2019-12-05] MEDS: CLOPIDOGREL 75 MG TAB PO SCH (08:06)
[2019-12-05] MEDS: HEPARIN SOD (PORCINE) 5000UNITS/ML 1ML VIAL/SYRINGE SC SCH ×2 (08:06→20:43)
[2019-12-05] MEDS: REMEDY PHYTOPLEX Z-GUARD PASTE 113GM TUBE (FROM STOREROOM PRODUCT) TOP SCH ×4 (08:06→20:44)
[2019-12-05] MEDS: OMEPRAZOLE 20 MG CAP PO SCH (08:06)
[2019-12-05] MEDS: MULTIVITAMINS/MINERALS THERAP 1 TAB PO SCH (08:06)
[2019-12-05] MEDS: ASPIRIN 81 MG ENTERIC TAB PO SCH (08:06)
[2019-12-05] MEDS: DOCUSATE SODIUM 100 MG CAP PO SCH ×2 (08:07→17:43)
[2019-12-05 14:00] VITALS: BP 131/75
--- NOTE | 2019-12-05 15:46 | IPNPDOC ---
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 He thinks he is ready to try a higher dose. REVIEW OF SYSTEMS: The following is a completed review of systems and has been reviewed. Review of systems otherwise unremarkable. PAIN: Patient self reports left residual limb pain and right toe burning pain EYES: No recent vision changes EARS, NOSE, & THROAT: No throat pain, or dysphagia, or rhinorrhea CARDIOVASCULAR: Denies chest pain or palpitations PULMONARY: Denies shortness of breath GASTROINTESTINAL: Denies constipation/diarrhea GENITOURINARY: anuric MUSCULOSKELETAL: left BKA NEUROLOGICAL:+neuropathic pain HEMATOLOGICAL: +anemia SKIN: right first toe gangrene, right heel pressure ulcer, and left BKA incision PSYCHIATRIC: Unremarkable All other review of systems found to be negative. PHYSICAL EXAMINATION: VITAL SIGNS: Please see below. GENERAL: Pleasant and cooperative. No acute distress HEENT: PERRL. Extraocular movements intact. Clear conjunctiva CARDIOVASCULAR: Regular rate and rhythm. No murmurs, rubs, or gallops LUNGS: Clear to auscultation bilaterally. No wheezes. No rhonchi ABDOMEN: Soft, nontender, nondistended. Positive bowel sounds. Normal active bow el sounds NEUROLOGICAL: Alert and oriented times three. Cranial nerves II through XII grossly intact. Sensation grossly intact in all 4limbs EXTREMITIES: 5\5 strength bilateral upper extremities. 4\5 strength right lower extremity except 1/5 right EHL. 4/5 strength in left hip flexors and knee extensors SKIN: stage 2 right heel ulcer, gangrenous right 1st toe, left residual limb w ith danielito and sutures without induration/erythema/drainage +sacral ulcer (healed) ASSESSMENT:79-year-old M with past medical history of bilateral nephrectomies who presents status post left BKA PLAN: 1. Rehab- PT/OT advance mobility, caregiver training, limb care, stretch/strengthen/maintain ROM all 4 limbs 2. Neuro- patient with neuropathic pain in setting of peripheral neuropathy due to PVD will trial Pamelor -patient with known hx of delirium often pain medication/dialysis induced, will monitor and make necessary adjustments while on ARU 3. Cardiac- chronic CHF, will fluid restrict to 1800cc, daily weights, patient refusing renal diet, will defer fluid management to renal while on HD -midodrine ordered with holding parameters for hypotension -medicine consulted for assistance with overall care 4. Resp- monitor for infection, incentive spirometry 5. 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 Renal- patient converting to HD from PD, renal consulted in setting of bilateral nephrectomies -cinacalcet and sevelmar 7. Heme- anemia of chronic disease, will defer to renal for management 8. Pain- d/c'd hydrocodone, c/u Pamelor for nerve pain will increase to 20 mg BID as patient reporting slight decrease in intensity of his pain and overall shorter duration, c/u Tylenol 9. Skin- dressing changes per wound care instructions, c/u barrier cream to sacrum, patient with hx of sacral ulcers, sacral ulcer today healed over on today's exam 10. GI- omeprazole 11. DVT ppx- heparin 12. Dispo- TBD Allergies Coded Allergies: amlodipine (Verified Allergy, Unknown, 09/07/19) indomethacin (Verified Allergy, Unknown, 09/07/19) nifedipine (Verified Allergy, Unknown, 09/07/19) oxycodone (Unverified Allergy, Unknown, 11/21/19) NSAIDS (Non-Steroidal Anti-Inflamma (Verified Adverse Reaction, In termediate, RECTAL BLEEDING, 09/07/19) TAKES 81MG ASA AT HOME FINE hydralazine (Verified Adverse Reaction, Mild, ELEVATED BP, 09/07/19) minoxidil (Verified Adverse Reaction, Mild, SWELLING, 11/21/19) Opioids - Morphine Analogues (Verified Adverse Reaction, Unknown, DIALYSIS PT, 09/14/19) epoetin beta (Verified Adverse Reaction, Unknown, 11/22/19) Hyporesponsive Vital Signs Vital Signs Date Time Temp Pulse Resp B/P (MAP) Pulse Ox O2 Delivery O2 Flow Rate FiO2 12/05/19 14:00 97.2 90 20 131/75 (93) 98 Room Air Current Medications Current Medications Current Medications Medications (Trade) Dose Ordered Sig/Damien Route PRN Reason Start Time Stop Time Status Last Admin Dose Admin Acetaminophen (Tylenol Tab) 1,000 mg Q6HP PRN PO MILD PAIN (PS 1-4) 11/27/19 16:00 11/28/19 15:00 DC 11/28/19 06:31 Acetaminophen (Tylenol Tab) 1,000 mg TID PO 11/28/19 16:00 12/05/19 08:05 Acetaminophen/ Hydrocodone Bitart ([place], Anexsia 5/325) 1 tab Q6HP PRN PO MILD/MODERATE PAIN (PS 1-7) 11/27/19 16:00 11/28/19 15:00 DC 11/28/19 12:51 Albuterol/ Ipratropium (Duoneb (Ipr 0.5mg/Alb 2.5mg)) 3 ml RTID NEB 11/27/19 20:00 12/04/19 07:10 Aspirin (Ecotrin) 81 mg DAILY PO 11/28/19 09:00 12/05/19 08:06 Atorvastatin Calcium (Lipitor) 40 mg QHS PO 11/27/19 21:00 12/04/19 21:00 Cinacalcet (Sensipar) 60 mg MoWeFr@2100 PO 11/28/19 21:00 12/03/19 20:50 Clopidogrel Bisulfate (PLAVix) 75 mg DAILY PO 11/28/19 09:00 12/05/19 08:06 Darbepoetin [place] (Aranesp (Dialysis Use)) 200 mcg HD IV 11/28/19 11:45 Docusate Sodium (Colace) 100 mg 0900,1800 PO 11/29/19 18:00 12/02/19 08:21 Docusate Sodium (Colace) 100 mg BID PO 11/27/19 21:00 11/29/19 17:09 DC 11/29/19 09:24 Heparin Sodium (Porcine) (Heparin) 5,000 units Q12H SC 11/27/19 21:00 12/05/19 08:06 Home Med (Med Rec Complete!) ASDIRECTED XX 11/27/19 17:30 11/27/19 17:32 DC Iron (Venofer) 100 mg HD IV 11/28/19 11:45 12/13/19 21:00 Midodrine (Proamatine) 5 mg 0900,1300,1700 PO 11/27/19 17:00 12/05/19 13:07 Multivitamins (Theragram-M) 1 tab DAILY PO 11/28/19 09:00 12/05/19 08:06 Nortriptyline HCl (Pamelor) 10 mg BID PO 11/30/19 11:45 12/03/19 17:33 DC 12/03/19 09:17 Nortriptyline HCl (Pamelor) 10 mg QHS PO 11/28/19 21:00 11/30/19 11:43 DC 11/29/19 21:16 Nortriptyline HCl (Pamelor) 20 mg BID PO 12/03/19 21:00 12/05/19 08:05 Omeprazole (PriLOSEC) 40 mg DAILY PO 11/28/19 09:00 12/05/19 08:06 Potassium Chloride (Micro-K Extencaps) 20 meq 0900,1800 PO 11/29/19 18:00 12/01/19 09:48 DC 12/01/19 08:27 Potassium Chloride (Micro-K Extencaps) 20 meq BID PO 11/27/19 21:00 11/29/19 17:09 DC 11/29/19 09:24 Senna (Senokot) 1 tab QHS PO 11/27/19 21:00 11/29/19 17:09 DC 11/28/19 21:15 Sevelamer Carbonate (Renvela) 800 mg WM PO 11/27/19 18:00 12/05/19 13:07 Tramadol HCl (Ultram) 50 mg Q6HP PRN PO MODERATE PAIN (PS 5-7) 12/02/19 12:30 12/03/19 14:14 DC 12/03/19 06:40 JEFFERY CANTU MD Dec 05, 2019 15:46
--- NOTE | 2019-12-05 15:48 | IPNPDOC ---
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 He would like to try taking his evening Pamelor a little earlier. REVIEW OF SYSTEMS: The following is a completed review of systems and has been reviewed. Review of systems otherwise unremarkable. PAIN: Patient self reports left residual limb pain and right toe burning pain EYES: No recent vision changes EARS, NOSE, & THROAT: No throat pain, or dysphagia, or rhinorrhea CARDIOVASCULAR: Denies chest pain or palpitations PULMONARY: Denies shortness of breath GASTROINTESTINAL: Denies constipation/diarrhea GENITOURINARY: anuric MUSCULOSKELETAL: left BKA NEUROLOGICAL:+neuropathic pain HEMATOLOGICAL: +anemia SKIN: right first toe gangrene, right heel pressure ulcer, and left BKA incision PSYCHIATRIC: Unremarkable All other review of systems found to be negative. PHYSICAL EXAMINATION: VITAL SIGNS: Please see below. GENERAL: Pleasant and cooperative. No acute distress HEENT: PERRL. Extraocular movements intact. Clear conjunctiva CARDIOVASCULAR: Regular rate and rhythm. No murmurs, rubs, or gallops LUNGS: Clear to auscultation bilaterally. No wheezes. No rhonchi ABDOMEN: Soft, nontender, nondistended. Positive bowel sounds. Normal active bowel sounds NEUROLOGICAL: Alert and oriented times three. Cranial nerves II through XII grossly intact. Sensation grossly intact in all 4limbs EXTREMITIES: 5\5 strength bilateral upper extremities. 4\5 strength right lower extremity except 1/5 right EHL. 4/5 strength in left hip flexors and knee extensors SKIN: stage 2 right heel ulcer, gangrenous right 1st toe, left residual limb with danielito and sutures without induration/erythema/drainage +sacral ulcer (healed) ASSESSMENT:79-year-old M with past medical history of bilateral nephrectomies who presents status post left BKA PLAN: 1. Rehab- PT/OT advance mobility, caregiver training, limb care, stretc h/strengthen/maintain ROM all 4 limbs 2. Neuro- patient with neuropathic pain in setting of peripheral neuropathy due to PVD will trial Pamelor -patient with known hx of delirium often pain medication/dialysis induced, will monitor and make necessary adjustments while on ARU 3. Cardiac- chronic CHF, will fluid restrict to 1800cc, daily weights, patient refusing renal diet, will defer fluid management to renal while on HD -midodrine ordered with holding parameters for hypotension -medicine consulted for assistance with overall care 4. Resp- monitor for infection, incentive spirometry 5. 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 Renal- patient converting to HD from PD, renal consulted in setting of bila teral nephrectomies -cinacalcet and sevelmar 7. Heme- anemia of chronic disease, will defer to renal for management 8. Pain- d/c'd hydrocodone, c/u Pamelor for nerve pain 20 mg BID as patient and spouse reporting overall improvements in his pain 9. Skin- dressing changes per wound care instructions, c/u barrier cream to sacrum, patient with hx of sacral ulcers 10. GI- omeprazole 11. DVT ppx- heparin 12. Dispo- 12-13-19 to home, progressing towards goals Allergies Coded Allergies: amlodipine (Verified Allergy, Unknown, 09/07/19) indomethacin (Verified Allergy, Unknown, 09/07/19) nifedipine (Verified Allergy, Unknown, 09/07/19) oxycodone (Unverified Allergy, Unknown, 11/21/19) NSAIDS (Non-Steroidal Anti-Inflamma (Verified Adverse Reaction, Intermediate, RECTAL BLEEDING, 09/07/19) TAKES 81MG ASA AT HOME FINE hydralazine (Verified Adverse Reaction, Mild, ELEVATED BP, 09/07/19) minoxidil (Verified Adverse Reaction, Mild, SWELLING, 11/21/19) Opioids - Morphine Analogues (Verified Adverse Reaction, Unknown, DIALYSIS PT, 09/14/19) epoetin beta (Verified Adverse Reaction, Unknown, 11/22/19) Hyporesponsive Vital Signs Vital Signs Date Time Temp Pulse Resp B/P (MAP) Pulse Ox O2 Delivery O2 Flow Rate FiO2 12/05/19 14:00 97.2 90 20 131/75 (93) 98 Room Air Current Medications Current Medications Current Medications Medications (Trade) Dose Ordered Sig/Damien Route PRN Reason Start Time Stop Time Status Last Admin Dose Admin Acetaminophen (Tylenol Tab) 1,000 mg Q6HP PRN PO MILD PAIN (PS 1-4) 11/27/19 16:00 11/28/19 15:00 DC 11/28/19 06:31 Acetaminophen (Tylenol Tab) 1,000 mg TID PO 11/28/19 16:00 12/05/19 08:05 Acetaminophen/ Hydrocodone Bitart ([place], Anexsia 5/325) 1 tab Q6HP PRN PO MILD/MODERATE PAIN (PS 1-7) 11/27/19 16:00 11/28/19 15:00 DC 11/28/19 12:51 Albuterol/ Ipratropium (Duoneb (Ipr 0.5mg/Alb 2.5mg)) 3 ml RTID NEB 11/27/19 20:00 12/04/19 07:10 Aspirin (Ecotrin) 81 mg DAILY PO 11/28/19 09:00 12/05/19 08:06 Atorvastatin Calcium (Lipitor) 40 mg QHS PO 11/27/19 21:00 12/04/19 21:00 Cinacalcet (Sensipar) 60 mg MoWeFr@2100 PO 11/28/19 21:00 12/03/19 20:50 Clopidogrel Bisulfate (PLAVix) 75 mg DAILY PO 11/28/19 09:00 12/05/19 08:06 Darbepoetin [place] (Aranesp (Dialysis Use)) 200 mcg HD IV 11/28/19 11:45 Docusate Sodium (Colace) 100 mg 0900,1800 PO 11/29/19 18:00 12/02/19 08:21 Docusate Sodium (Colace) 100 mg BID PO 11/27/19 21:00 11/29/19 17:09 DC 11/29/19 09:24 Heparin Sodium (Porcine) (Heparin) 5,000 units Q12H SC 11/27/19 21:00 12/05/19 08:06 Home Med (Med Rec Complete!) ASDIRECTED XX 11/27/19 17:30 11/27/19 17:32 DC Iron (Venofer) 100 mg HD IV 11/28/19 11:45 12/13/19 21:00 Midodrine (Proamatine) 5 mg 0900,1300,1700 PO 11/27/19 17:00 12/05/19 13:07 Multivitamins (Theragram-M) 1 tab DAILY PO 11/28/19 09:00 12/05/19 08:06 Nortriptyline HCl (Pamelor) 10 mg BID PO 11/30/19 11:45 12/03/19 17:33 DC 12/03/19 09:17 Nortriptyline HCl (Pamelor) 10 mg QHS PO 11/28/19 21:00 11/30/19 11:43 DC 11/29/19 21:16 Nortriptyline HCl (Pamelor) 20 mg BID PO 12/03/19 21:00 12/05/19 08:05 Omeprazole (PriLOSEC) 40 mg DAILY PO 11/28/19 09:00 12/05/19 08:06 Potassium Chloride (Micro-K Extencaps) 20 meq 0900,1800 PO 11/29/19 18:00 12/01/19 09:48 DC 12/01/19 08:27 Potassium Chloride (Micro-K Extencaps) 20 meq BID PO 11/27/19 21:00 11/29/19 17:09 DC 11/29/19 09:24 Senna (Senokot) 1 tab QHS PO 11/27/19 21:00 11/29/19 17:09 DC 11/28/19 21:15 Sevelamer Carbonate (Renvela) 800 mg WM PO 11/27/19 18:00 12/05/19 13:07 Tramadol HCl (Ultram) 50 mg Q6HP PRN PO MODERATE PAIN (PS 5-7) 12/02/19 12:30 12/03/19 14:14 DC 12/03/19 06:40 JEFFERY CANTU MD Dec 05, 2019 15:48
[2019-12-05 17:00] VITALS: BP 142/88
[2019-12-05 20:30] VITALS: BP 124/82
[2019-12-05] MEDS: ATORVASTATIN 20 MG TAB PO SCH (20:43)
[2019-12-05] MEDS: CINACALCET 30 MG TAB (SENSIPAR) PO SCH (20:43)
[2019-12-06] MEDS: IPRATROPIUM 0.5MG/ALBUTEROL 2.5MG INH SOL UD 3ML (DUONEB) NEB SCH ×3 (08:00→18:14)
[2019-12-06 08:14] LABS: BASO % 0.5 % (0.0-1.0); EOS # 0.8 10^3/uL (0.0-0.5); EOS % 9.4 % (0.0-3.0); HEMATOCRIT 31.3 % (42.0-52.0); HEMOGLOBIN 10.4 g/dl (13.5-17.5); LYMPH % 23.5 % (24.0-44.0); MEAN CORPUSCULAR HEMOGLOBIN 31.3 pg (27.0-33.0); MEAN CORPUSCULAR HGB CONC 33.2 g/dl (32.0-36.5); MEAN CORPUSCULAR VOLUME 94.3 fl (80.0-96.0); MONO # 0.6 10^3/uL (0.0-0.8); MONO % 7.4 % (0.0-5.0); NEUTROPHILS # 5.1 10^3/uL (1.5-8.5); PLATELET COUNT, AUTOMATED 400 10^3/uL (150-450); RED BLOOD COUNT 3.32 10^6/uL (4.30-6.10); WHITE BLOOD COUNT 8.6 10^3/uL (4.0-10.0)
[2019-12-06 08:37] LABS: CALCIUM LEVEL 9.9 MG/DL (8.8-10.2); CREATININE FOR GFR 6.95 MG/DL (0.70-1.30); POTASSIUM SERUM 4.4 MEQ/L (3.5-5.1)
[2019-12-06] MEDS: DOCUSATE SODIUM 100 MG CAP PO SCH ×2 (09:00→18:00)
[2019-12-06] MEDS: HEPARIN SOD (PORCINE) 5000UNITS/ML 1ML VIAL/SYRINGE SC SCH ×3 (09:00→22:36)
[2019-12-06] MEDS: NORTRIPTYLINE 10 MG CAP PO SCH ×2 (09:28→18:01)
[2019-12-06] MEDS: ACETAMINOPHEN 500 MG TAB PO SCH ×3 (09:28→22:36)
[2019-12-06] MEDS: MIDODRINE 5 MG TAB PO SCH ×3 (09:29→17:00)
[2019-12-06] MEDS: CLOPIDOGREL 75 MG TAB PO SCH (09:29)
[2019-12-06] MEDS: MULTIVITAMINS/MINERALS THERAP 1 TAB PO SCH (09:29)
[2019-12-06] MEDS: (RENVELA) SEVELAMER **CARBONate** 800 MG TAB PO SCH ×3 (09:29→18:01)
[2019-12-06] MEDS: OMEPRAZOLE 20 MG CAP PO SCH (09:29)
[2019-12-06] MEDS: ASPIRIN 81 MG ENTERIC TAB PO SCH (09:29)
[2019-12-06] MEDS: REMEDY PHYTOPLEX Z-GUARD PASTE 113GM TUBE (FROM STOREROOM PRODUCT) TOP SCH ×4 (09:30→22:37)
[2019-12-06] MEDS ORDERED: KETOROLAC 30 MG/ML 1ML VIAL IV ONE (11:00)
[2019-12-06 17:00] VITALS: BP 153/74
[2019-12-06 20:00] VITALS: BP 131/72
[2019-12-06] MEDS: ATORVASTATIN 20 MG TAB PO SCH (22:36)
[2019-12-07 06:00] VITALS: BP 136/69
[2019-12-07] MEDS: IPRATROPIUM 0.5MG/ALBUTEROL 2.5MG INH SOL UD 3ML (DUONEB) NEB SCH ×3 (07:08→18:03)
[2019-12-07] MEDS: ASPIRIN 81 MG ENTERIC TAB PO SCH (08:30)
[2019-12-07] MEDS: (RENVELA) SEVELAMER **CARBONate** 800 MG TAB PO SCH ×3 (08:30→17:01)
[2019-12-07] MEDS: MULTIVITAMINS/MINERALS THERAP 1 TAB PO SCH (08:30)
[2019-12-07] MEDS: DOCUSATE SODIUM 100 MG CAP PO SCH ×2 (08:30→17:01)
[2019-12-07] MEDS: NORTRIPTYLINE 10 MG CAP PO SCH ×2 (08:30→17:01)
[2019-12-07] MEDS: ACETAMINOPHEN 500 MG TAB PO SCH ×3 (08:31→20:26)
[2019-12-07] MEDS: CLOPIDOGREL 75 MG TAB PO SCH (08:31)
[2019-12-07] MEDS: OMEPRAZOLE 20 MG CAP PO SCH (08:31)
[2019-12-07] MEDS: HEPARIN SOD (PORCINE) 5000UNITS/ML 1ML VIAL/SYRINGE SC SCH ×2 (08:32→21:00)
[2019-12-07] MEDS: REMEDY PHYTOPLEX Z-GUARD PASTE 113GM TUBE (FROM STOREROOM PRODUCT) TOP SCH ×4 (08:33→21:08)
[2019-12-07] MEDS: MIDODRINE 5 MG TAB PO SCH ×3 (08:35→17:00)
[2019-12-07 09:28] LABS: BASO % 0.4 % (0.0-1.0); EOS # 0.7 10^3/uL (0.0-0.5); HEMATOCRIT 28.5 % (42.0-52.0); HEMOGLOBIN 9.3 g/dl (13.5-17.5); LYMPH # 1.8 10^3/uL (1.5-5.0); LYMPH % 25.3 % (24.0-44.0); MEAN CORPUSCULAR HGB CONC 32.6 g/dl (32.0-36.5); MONO # 0.7 10^3/uL (0.0-0.8); MONO % 9.7 % (0.0-5.0); NEUTROPHILS # 3.8 10^3/uL (1.5-8.5); NEUTROPHILS % 54.2 % (36.0-66.0); PLATELET COUNT, AUTOMATED 370 10^3/uL (150-450); WHITE BLOOD COUNT 6.9 10^3/uL (4.0-10.0)
[2019-12-07 09:34] LABS: CALCIUM LEVEL 9.5 MG/DL (8.8-10.2); CREATININE FOR GFR 4.81 MG/DL (0.70-1.30); GLOMERULAR FILTRATION RATE 15.3 (>42); POTASSIUM SERUM 3.9 MEQ/L (3.5-5.1)
--- NOTE | 2019-12-07 11:06 | IPNPDOC ---
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 REVIEW OF SYSTEMS: The following is a completed review of systems and has been reviewed. Review of systems otherwise unremarkable. PAIN: Patient self reports left residual limb pain and right toe burning pain EYES: No recent vision changes EARS, NOSE, & THROAT: No throat pain, or dysphagia, or rhinorrhea CARDIOVASCULAR: Denies chest pain or palpitations PULMONARY: Denies shortness of breath GASTROINTESTINAL: Denies constipation/diarrhea GENITOURINARY: anuric MUSCULOSKELETAL: left BKA NEUROLOGICAL:+neuropathic pain HEMATOLOGICAL: +anemia SKIN: right first toe gangrene, right heel pressure ulcer, and left BKA incision PSYCHIATRIC: Unremarkable All other review of systems found to be negative. PHYSICAL EXAMINATION: VITAL SIGNS: Please see below. GENERAL: Pleasant and cooperative. No acute distress HEENT: PERRL. Extraocular movements intact. Clear conjunctiva CARDIOVASCULAR: Regular rate and rhythm. No murmurs, rubs, or gallops LUNGS: Clear to auscultation bilaterally. No wheezes. No rhonchi ABDOMEN: Soft, nontender, nondistended. Positive bowel sounds. Normal active bowel sounds NEUROLOGICAL: Alert and oriented times three. Cranial nerves II through XII grossly intact. Sensation grossly intact in all 4limbs EXTREMITIES: 5\5 strength bilateral upper extremities. 4\5 strength right lower extremity except 1/5 right EHL. 4/5 strength in left hip flexors and knee extensors SKIN: stage 2 right heel ulcer, gangrenous right 1st toe, left residual limb with danielito and sutures without induration/erythema/drainage +sacral ulcer (healed) ASSESSMENT:79-year-old M with past medical history of bilateral nephrectomies who presents status post left BKA PLAN: 1. Rehab- PT/OT advance mobility, caregiver training, limb care, stretch/strengthen/maintain ROM all 4 limbs, wheelchair mobility improving 2. Neuro- patient with neuropathic pain in setting of peripheral neuropathy due to PVD will trial Pamelor -patient with known hx of delirium often pain medication/dialysis induced, will monitor and make necessary adjustments while on ARU 3. Cardiac- chronic CHF, will fluid restrict to 1800cc, daily weights, patient refusing renal diet, will defer fluid management to renal while on HD -midodrine ordered with holding parameters for hypotension -medicine consulted for assistance with overall care 4. Resp- monitor for infection, incentive spirometry 5. 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 Renal- patient converting to HD from PD, renal consulted in setting of bilateral nephrectomies -cinacalcet and sevelmar 7. Heme- anemia of chronic disease, will defer to renal for management 8. Pain- d/c'd hydrocodone, c/u Pamelor for nerve pain 20 mg BID as patient and spouse reporting overall improvements in his pain 9. Skin- dressing changes per wound care instructions, c/u barrier cream to sacrum, patient with hx of sacral ulcers 10. GI- omeprazole 11. DVT ppx- heparin 12. Dispo- 12-13-19 to home, progressing towards goals Allergies Coded Allergies: amlodipine (Verified Allergy, Unknown, 09/07/19) indomethacin (Verified Allergy, Unknown, 09/07/19) nifedipine (Verified Allergy, Unknown, 09/07/19) oxycodone (Unverified Allergy, Unknown, 11/21/19) NSAIDS (Non-Steroidal Anti-Inflamma (Verified Adverse Reaction, Intermedi ate, RECTAL BLEEDING, 09/07/19) TAKES 81MG ASA AT HOME FINE hydralazine (Verified Adverse Reaction, Mild, ELEVATED BP, 09/07/19) minoxidil (Verified Adverse Reaction, Mild, SWELLING, 11/21/19) Opioids - Morphine Analogues (Verified Adverse Reaction, Unknown, DIALYSIS PT, 09/14/19) epoetin beta (Verified Adverse Reaction, Unknown, 11/22/19) Hyporesponsive Vital Signs Vital Signs Date Time Temp Pulse Resp B/P (MAP) Pulse Ox O2 Delivery O2 Flow Rate FiO2 12/07/19 06:00 97.4 77 18 136/69 (91) 98 Room Air Laboratory Data CBC/BMP Laboratory Tests 12/07/19 08:44 Labs 24H Laboratory Tests 2 12/07/19 08:44: Immature Granulocyte % (Auto) 0.4, Neutrophils (%) (Auto) 54.2, Lymphocytes (%) (Auto) 25.3, Monocytes (%) (Auto) 9.7H, Eosinophils (%) (Auto) 10.0H, Basophils (%) (Auto) 0.4, Neutrophils # (Auto) 3.8, Lymphocytes # (Auto) 1.8, Monocytes # (Auto) 0.7, Eosinophils # (Auto) 0.7H, Basophils # (Auto) 0.0, Nucleated Red Blood Cells % (auto) 0.0, Anion Gap 7L, Glomerular Filtration Rate 15.3L, Calcium Level 9.5 Current Medications Current Medications Current Medications Medications (Trade) Dose Ordered Sig/Damien Route PRN Reason Start Time Stop Time Status Last Admin Dose Admin Acetaminophen (Tylenol Tab) 1,000 mg Q6HP PRN PO MILD PAIN (PS 1-4) 11/27/19 16:00 11/28/19 15:00 DC 11/28/19 06:31 Acetaminophen (Tylenol Tab) 1,000 mg TID PO 11/28/19 16:00 12/07/19 08:31 Acetaminophen/ Hydrocodone Bitart ([place], Anexsia 5/325) 1 tab Q6HP PRN PO MILD/MODERATE PAIN (PS 1-7) 11/27/19 16:00 11/28/19 15:00 DC 11/28/19 12:51 Albuterol/ Ipratropium (Duoneb (Ipr 0.5mg/Alb 2.5mg)) 3 ml RTID NEB 11/27/19 20:00 12/07/19 07:08 Aspirin (Ecotrin) 81 mg DAILY PO 11/28/19 09:00 12/07/19 08:30 Atorvastatin Calcium (Lipitor) 40 mg QHS PO 11/27/19 21:00 12/06/19 22:36 Cinacalcet (Sensipar) 60 mg MoWeFr@2100 PO 11/28/19 21:00 12/05/19 20:43 Clopidogrel Bisulfate (PLAVix) 75 mg DAILY PO 11/28/19 09:00 12/07/19 08:31 Darbepoetin [place] (Aranesp (Dialysis Use)) 200 mcg HD IV 11/28/19 11:45 Docusate Sodium (Colace) 100 mg 0900,1800 PO 11/29/19 18:00 12/07/19 08:30 Docusate Sodium (Colace) 100 mg BID PO 11/27/19 21:00 11/29/19 17:09 DC 11/29/19 09:24 Heparin Sodium (Porcine) (Heparin) 5,000 units Q12H SC 11/27/19 21:00 12/07/19 08:32 Home Med (Med Rec Complete!) ASDIRECTED XX 11/27/19 17:30 11/27/19 17:32 DC Iron (Venofer) 100 mg HD IV 11/28/19 11:45 12/13/19 21:00 Midodrine (Proamatine) 5 mg 0900,1300,1700 PO 11/27/19 17:00 12/06/19 09:29 Multivitamins (Theragram-M) 1 tab DAILY PO 11/28/19 09:00 12/07/19 08:30 Nortriptyline HCl (Pamelor) 10 mg BID PO 11/30/19 11:45 12/03/19 17:33 DC 12/03/19 09:17 Nortriptyline HCl (Pamelor) 10 mg QHS PO 11/28/19 21:00 11/30/19 11:43 DC 11/29/19 21:16 Nortriptyline HCl (Pamelor) 20 mg BID PO 12/03/19 21:00 12/05/19 15:59 DC 12/05/19 08:05 Nortriptyline HCl (Pamelor) 20 mg BID@0900,1800 PO 12/05/19 18:00 12/07/19 08:30 Omeprazole (PriLOSEC) 40 mg DAILY PO 11/28/19 09:00 12/07/19 08:31 Potassium Chloride (Micro-K Extencaps) 20 meq 0900,1800 PO 11/29/19 18:00 12/01/19 09:48 DC 12/01/19 08:27 Potassium Chloride (Micro-K Extencaps) 20 meq BID PO 11/27/19 21:00 11/29/19 17:09 DC 11/29/19 09:24 Senna (Senokot) 1 tab QHS PO 11/27/19 21:00 11/29/19 17:09 DC 11/28/19 21:15 Sevelamer Carbonate (Renvela) 800 mg WM PO 11/27/19 18:00 12/07/19 08:30 Tramadol HCl (Ultram) 50 mg Q6HP PRN PO MODERATE PAIN (PS 5-7) 12/02/19 12:30 12/03/19 14:14 DC 12/03/19 06:40 JEFFERY CANTU MD Dec 07, 2019 11:06
--- NOTE | 2019-12-07 11:07 | IPNPDOC ---
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 He is able to tolerate more therapy. REVIEW OF SYSTEMS: The following is a completed review of systems and has been reviewed. Review of systems otherwise unremarkable. PAIN: Patient self reports left residual limb pain and right toe burning pain (improving) EYES: No recent vision changes EARS, NOSE, & THROAT: No throat pain, or dysphagia, or rhinorrhea CARDIOVASCULAR: Denies chest pain or palpitations PULMONARY: Denies shortness of breath GASTROINTESTINAL: Denies constipation/diarrhea GENITOURINARY: anuric MUSCULOSKELETAL: left BKA NEUROLOGICAL:+neuropathic pain HEMATOLOGICAL: +anemia SKIN: right first toe gangrene, right heel pressure ulcer, and left BKA incision PSYCHIATRIC: Unremarkable All other review of systems found to be negative. PHYSICAL EXAMINATION: VITAL SIGNS: Please see below. GENERAL: Pleasant and cooperative. No acute distress HEENT: PERRL. Extraocular movements intact. Clear conjunctiva CARDIOVASCULAR: Regular rate and rhythm. No murmurs, rubs, or gallops LUNGS: Clear to auscultation bilaterally. No wheezes. No rhonchi ABDOMEN: Soft, nontender, nondistended. Positive bowel sounds. Normal active bowel sounds NEUROLOGICAL: Alert and oriented times three. Cranial nerves II through XII grossly intact. Sensation grossly intact in all 4limbs EXTREMITIES: 5\5 strength bilateral upper extremities. 4\5 strength right lower extremity except 1/5 right EHL. 4/5 strength in left hip flexors and knee extensors SKIN: stage 2 right heel ulcer, gangrenous right 1st toe, left residual limb with danielito and sutures without induration/erythema/drainage +sacral ulcer (healed) ASSESSMENT:79-year-old M with past medical history of bilateral nephrectomies who presents status post left BKA PLAN: 1. Rehab- PT/OT advance mobility, caregiver training, limb care, stretch/strengthen/maintain ROM all 4 limbs, wheelchair mobility improving 2. Neuro- patient with neuropathic pain in setting of peripheral neuropathy due to PVD will trial Pamelor -patient with known hx of delirium often pain medication/dialysis induced, will monitor and make necessary adjustments while on ARU 3. Cardiac- chronic CHF, c/u fluid restrict to 1800cc, daily weights, patient refusing renal diet, will defer fluid management to renal while on HD -midodrine ordered with holding parameters for hypotension -medicine consulted for assistance with overall care 4. Resp- monitor for infection, incentive spirometry 5. 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 Renal- patient converting to HD from PD, renal consulted in setting of bilateral nephrectomies -cinacalcet and sevelmar 7. Heme- anemia of chronic disease, will defer to renal for management 8. Pain- d/c'd hydrocodone, c/u Pamelor for nerve pain 20 mg BID as patient and spouse reporting overall improvements in his pain 9. Skin- dressing changes per wound care instructions, c/u barrier cream to sacrum, patient with hx of sacral ulcers 10. GI- omeprazole 11. DVT ppx- heparin 12. Dispo- 12-13-19 to home, progressing towards goals Allergies Coded Allergies: amlodipine (Verified Allergy, Unknown, 09/07/19) indomethacin (Verified Allergy, Unknown, 09/07/19) nifedipine (Verified Allergy, Unknown, 09/07/19) oxycodone (Unverified Allergy, Unknown, 11/21/19) NSAIDS (Non-Steroidal Anti-Inflamma (Verified Adverse Reaction, Intermediate, RECTAL BLEEDING, 09/07/19) TAKES 81MG ASA AT HOME FINE hydralazine (Verified Adverse Reaction, Mild, ELEVATED BP, 09/07/19) minoxidil (Verified Adverse Reaction, Mild, SWELLING, 11/21/19) Opioids - Morphine Analogues (Verified Adverse Reaction, Unknown, DIALYSIS PT, 09/14/19) epoetin beta (Verified Adverse Reaction, Unknown, 11/22/19) Hyporesponsive Vital Signs Vital Signs Date Time Temp Pulse Resp B/P (MAP) Pulse Ox O2 Delivery O2 Flow Rate FiO2 12/07/19 06:00 97.4 77 18 136/69 (91) 98 Room Air Laboratory Data CBC/BMP Laboratory Tests 12/07/19 08:44 Labs 24H Laboratory Tests 2 12/07/19 08:44: Immature Granulocyte % (Auto) 0.4, Neutrophils (%) (Auto) 54.2, Lymphocytes (%) (Auto) 25.3, Monocytes (%) (Auto) 9.7H, Eosinophils (%) (Auto) 10.0H, Basophils (%) (Auto) 0.4, Neutrophils # (Auto) 3.8, Lymphocytes # (Auto) 1.8, Monocytes # (Auto) 0.7, Eosinophils # (Auto) 0.7H, Basophils # (Auto) 0.0, Nucleated Red Blood Cells % (auto) 0.0, Anion Gap 7L, Glomerular Filtration Rate 15.3L, Calcium Level 9.5 Current Medications Current Medications Current Medications Medications (Trade) Dose Ordered Sig/Damien Route PRN Reason Start Time Stop Time Status Last Admin Dose Admin Acetaminophen (Tylenol Tab) 1,000 mg Q6HP PRN PO MILD PAIN (PS 1-4) 11/27/19 16:00 11/28/19 15:00 DC 11/28/19 06:31 Acetaminophen (Tylenol Tab) 1,000 mg TID PO 11/28/19 16:00 12/07/19 08:31 Acetaminophen/ Hydrocodone Bitart ([place], Anexsia 5/325) 1 tab Q6HP PRN PO MILD/MODERATE PAIN (PS 1-7) 11/27/19 16:00 11/28/19 15:00 DC 11/28/19 12:51 Albuterol/ Ipratropium (Duoneb (Ipr 0.5mg/Alb 2.5mg)) 3 ml RTID NEB 11/27/19 20:00 12/07/19 07:08 Aspirin (Ecotrin) 81 mg DAILY PO 11/28/19 09:00 12/07/19 08:30 Atorvastatin Calcium (Lipitor) 40 mg QHS PO 11/27/19 21:00 12/06/19 22:36 Cinacalcet (Sensipar) 60 mg MoWeFr@2100 PO 11/28/19 21:00 12/05/19 20:43 Clopidogrel Bisulfate (PLAVix) 75 mg DAILY PO 11/28/19 09:00 12/07/19 08:31 Darbepoetin [place] (Aranesp (Dialysis Use)) 200 mcg HD IV 11/28/19 11:45 Docusate Sodium (Colace) 100 mg 0900,1800 PO 11/29/19 18:00 12/07/19 08:30 Docusate Sodium (Colace) 100 mg BID PO 11/27/19 21:00 11/29/19 17:09 DC 11/29/19 09:24 Heparin Sodium (Porcine) (Heparin) 5,000 units Q12H SC 11/27/19 21:00 12/07/19 08:32 Home Med (Med Rec Complete!) ASDIRECTED XX 11/27/19 17:30 11/27/19 17:32 DC Iron (Venofer) 100 mg HD IV 11/28/19 11:45 12/13/19 21:00 Midodrine (Proamatine) 5 mg 0900,1300,1700 PO 11/27/19 17:00 12/06/19 09:29 Multivitamins (Theragram-M) 1 tab DAILY PO 11/28/19 09:00 12/07/19 08:30 Nortriptyline HCl (Pamelor) 10 mg BID PO 11/30/19 11:45 12/03/19 17:33 DC 12/03/19 09:17 Nortriptyline HCl (Pamelor) 10 mg QHS PO 11/28/19 21:00 11/30/19 11:43 DC 11/29/19 21:16 Nortriptyline HCl (Pamelor) 20 mg BID PO 12/03/19 21:00 12/05/19 15:59 DC 12/05/19 08:05 Nortriptyline HCl (Pamelor) 20 mg BID@0900,1800 PO 12/05/19 18:00 12/07/19 08:30 Omeprazole (PriLOSEC) 40 mg DAILY PO 11/28/19 09:00 12/07/19 08:31 Potassium Chloride (Micro-K Extencaps) 20 meq 0900,1800 PO 11/29/19 18:00 12/01/19 09:48 DC 12/01/19 08:27 Potassium Chloride (Micro-K Extencaps) 20 meq BID PO 11/27/19 21:00 11/29/19 17:09 DC 11/29/19 09:24 Senna (Senokot) 1 tab QHS PO 11/27/19 21:00 11/29/19 17:09 DC 11/28/19 21:15 Sevelamer Carbonate (Renvela) 800 mg WM PO 11/27/19 18:00 12/07/19 08:30 Tramadol HCl (Ultram) 50 mg Q6HP PRN PO MODERATE PAIN (PS 5-7) 12/02/19 12:30 12/03/19 14:14 DC 12/03/19 06:40 JEFFERY CANTU MD Dec 07, 2019 11:07
--- NOTE | 2019-12-07 12:32 | IPN ---
DATE: 12/06/2019 SUBJECTIVE: Patient was seen and examined at the bedside today morning. He reports moderate amount of pain in the bilateral lower extremities. Current pain medicine is not optimizing. Otherwise, he is afebrile. Today is patient's regular day of dialysis. OBJECTIVE: Vital signs: Temperature 97.9 degrees Fahrenheit, blood pressure 124/82, pulse 85, respiratory rate 18, saturating 99% on room air. Intake and output: There is no urine output recorded. Weight in the bed scale is not available. PHYSICAL EXAMINATION: General: Patient is awake, alert, oriented x3, laying in bed in moderate painful distress. Head and neck: Extraocular muscles intact. Pupils equally round and reactive to light. Mucous membranes are moist. Neck is supple. There is no JVD. Cardiovascular: S1, S2, regular rate. No edema of the bilateral lower extremities. Respiratory: Chest is clear to auscultation bilaterally. Bilateral equal air entry. No rales or rhonchi. Abdomen: Soft, positive bowel sounds. Left lower quadrant PD catheter is noted. Musculoskeletal: He has a left below-knee amputation covered with a dressing, and right foot is covered with a dressing as well. HYDROLOGIC MODELER: No focal deficit. Power is 5/5 in bilateral upper extremities. LABORATORY REVIEW: CBC showed WBC 8.6, hemoglobin 10.4, platelets 400,000. BMP showed sodium 135, potassium 4.4, chloride 98, bicarb 27, BUN 29, creatinine 6.9. CURRENT INPATIENT MEDICATIONS: Patients medications were all reviewed by myself. I gave him a dose of I.V. Toradol 30 mg for pain in the lower extremities. Otherwise, no significant change in the medications today. ASSESSMENT AND PLAN: 1. End-stage renal disease: Patient is peritoneal dialysis dependent as an outpatient, however in the rehab he is getting hemodialysis, today is his regular day of dialysis. Ultrafiltration goal will be around 1.5 to 2 liters as tolerated by his blood pressure. 2. Anemia and end-stage renal disease: Hemoglobin level is stable and improving with current dose of Aranesp and Venofer. 3. Pain in bilateral lower extremities: I gave the patient a dose of I.V. Toradol. Patient refuses to have any opioids done because that makes him confused. 4. Chronic kidney disease/mineral bone disease: Continue current dose of Renvela 800 mg p.o. with meals. 5. Secondary hyperparathyroidism: Continue current dose of Sensipar 60 mg p.o. Tuesday, Tuesday, Tuesday. MTDD
[2019-12-07 14:00] VITALS: BP 134/76
[2019-12-07 20:00] VITALS: BP 149/77
[2019-12-07] MEDS: CINACALCET 30 MG TAB (SENSIPAR) PO SCH (20:25)
[2019-12-07] MEDS: ATORVASTATIN 20 MG TAB PO SCH (20:26)
[2019-12-08 04:30] VITALS: BP 130/76
[2019-12-08] MEDS: IPRATROPIUM 0.5MG/ALBUTEROL 2.5MG INH SOL UD 3ML (DUONEB) NEB SCH ×3 (08:00→18:21)
[2019-12-08] MEDS: REMEDY PHYTOPLEX Z-GUARD PASTE 113GM TUBE (FROM STOREROOM PRODUCT) TOP SCH ×4 (08:12→21:10)
[2019-12-08] MEDS: HEPARIN SOD (PORCINE) 5000UNITS/ML 1ML VIAL/SYRINGE SC SCH ×2 (08:14→21:00)
[2019-12-08] MEDS: CLOPIDOGREL 75 MG TAB PO SCH (08:14)
[2019-12-08] MEDS: ASPIRIN 81 MG ENTERIC TAB PO SCH (08:14)
[2019-12-08] MEDS: (RENVELA) SEVELAMER **CARBONate** 800 MG TAB PO SCH ×3 (08:14→16:54)
[2019-12-08] MEDS: OMEPRAZOLE 20 MG CAP PO SCH (08:14)
[2019-12-08] MEDS: MULTIVITAMINS/MINERALS THERAP 1 TAB PO SCH (08:14)
[2019-12-08] MEDS: ACETAMINOPHEN 500 MG TAB PO SCH ×3 (08:15→21:11)
[2019-12-08] MEDS: NORTRIPTYLINE 10 MG CAP PO SCH ×2 (08:15→16:54)
[2019-12-08] MEDS: DOCUSATE SODIUM 100 MG CAP PO SCH ×2 (09:00→16:54)
[2019-12-08] MEDS: MIDODRINE 5 MG TAB PO SCH ×3 (09:00→16:54)
[2019-12-08 14:00] VITALS: BP 134/77
[2019-12-08 20:00] VITALS: BP 133/78
[2019-12-08] MEDS: ATORVASTATIN 20 MG TAB PO SCH (21:10)
[2019-12-09 05:09] VITALS: BP 138/78
[2019-12-09] MEDS: IPRATROPIUM 0.5MG/ALBUTEROL 2.5MG INH SOL UD 3ML (DUONEB) NEB SCH ×3 (07:21→17:57)
[2019-12-09] MEDS: (RENVELA) SEVELAMER **CARBONate** 800 MG TAB PO SCH ×3 (08:00→18:00)
[2019-12-09] MEDS: MIDODRINE 5 MG TAB PO SCH ×3 (09:00→18:05)
[2019-12-09] MEDS: HEPARIN SOD (PORCINE) 5000UNITS/ML 1ML VIAL/SYRINGE SC SCH ×2 (09:19→21:02)
[2019-12-09] MEDS: ASPIRIN 81 MG ENTERIC TAB PO SCH (09:19)
[2019-12-09] MEDS: CLOPIDOGREL 75 MG TAB PO SCH (09:19)
[2019-12-09] MEDS: ACETAMINOPHEN 500 MG TAB PO SCH ×3 (09:19→21:02)
[2019-12-09] MEDS: OMEPRAZOLE 20 MG CAP PO SCH (09:19)
[2019-12-09] MEDS: NORTRIPTYLINE 10 MG CAP PO SCH ×2 (09:19→18:05)
[2019-12-09] MEDS: DOCUSATE SODIUM 100 MG CAP PO SCH ×2 (09:19→18:00)
[2019-12-09] MEDS: REMEDY PHYTOPLEX Z-GUARD PASTE 113GM TUBE (FROM STOREROOM PRODUCT) TOP SCH ×4 (09:20→21:02)
[2019-12-09] MEDS: MULTIVITAMINS/MINERALS THERAP 1 TAB PO SCH (09:20)
[2019-12-09 14:00] VITALS: BP 165/88
[2019-12-09 20:00] VITALS: BP 164/77
[2019-12-09] MEDS: ATORVASTATIN 20 MG TAB PO SCH (21:02)
[2019-12-10 06:00] VITALS: BP 141/72
[2019-12-10] MEDS: IPRATROPIUM 0.5MG/ALBUTEROL 2.5MG INH SOL UD 3ML (DUONEB) NEB SCH ×3 (07:25→18:00)
[2019-12-10 08:35] LABS: BASO # 0.1 10^3/uL (0.0-0.2); BASO % 0.7 % (0.0-1.0); EOS # 0.9 10^3/uL (0.0-0.5); EOS % 12.4 % (0.0-3.0); HEMATOCRIT 30.2 % (42.0-52.0); HEMOGLOBIN 9.6 g/dl (13.5-17.5); LYMPH # 1.5 10^3/uL (1.5-5.0); LYMPH % 21.7 % (24.0-44.0); MEAN CORPUSCULAR HEMOGLOBIN 30.9 pg (27.0-33.0); MEAN CORPUSCULAR HGB CONC 31.8 g/dl (32.0-36.5); MEAN CORPUSCULAR VOLUME 97.1 fl (80.0-96.0); MONO # 0.7 10^3/uL (0.0-0.8); MONO % 9.6 % (0.0-5.0); NEUTROPHILS # 3.9 10^3/uL (1.5-8.5); NEUTROPHILS % 55.3 % (36.0-66.0); PLATELET COUNT, AUTOMATED 383 10^3/uL (150-450); RED BLOOD COUNT 3.11 10^6/uL (4.30-6.10)
[2019-12-10] MEDS: HEPARIN SOD (PORCINE) 5000UNITS/ML 1ML VIAL/SYRINGE SC SCH ×3 (08:40→21:56)
[2019-12-10] MEDS: MIDODRINE 5 MG TAB PO SCH ×3 (08:41→17:00)
[2019-12-10] MEDS: CLOPIDOGREL 75 MG TAB PO SCH (08:41)
[2019-12-10] MEDS: (RENVELA) SEVELAMER **CARBONate** 800 MG TAB PO SCH ×3 (08:41→18:00)
[2019-12-10] MEDS: ASPIRIN 81 MG ENTERIC TAB PO SCH (08:41)
[2019-12-10] MEDS: MULTIVITAMINS/MINERALS THERAP 1 TAB PO SCH (08:41)
[2019-12-10] MEDS: ACETAMINOPHEN 500 MG TAB PO SCH ×3 (08:41→21:55)
[2019-12-10] MEDS: OMEPRAZOLE 20 MG CAP PO SCH (08:41)
[2019-12-10] MEDS: REMEDY PHYTOPLEX Z-GUARD PASTE 113GM TUBE (FROM STOREROOM PRODUCT) TOP SCH ×4 (08:42→21:56)
[2019-12-10] MEDS: DOCUSATE SODIUM 100 MG CAP PO SCH ×2 (08:42→17:38)
[2019-12-10] MEDS: NORTRIPTYLINE 10 MG CAP PO SCH ×2 (08:45→18:30)
[2019-12-10 08:54] LABS: CALCIUM LEVEL 10.4 MG/DL (8.8-10.2); CREATININE FOR GFR 6.81 MG/DL (0.70-1.30); GLOMERULAR FILTRATION RATE 10.2 (>42); POTASSIUM SERUM 4.6 MEQ/L (3.5-5.1)
--- NOTE | 2019-12-10 10:16 | IPN ---
DATE: 12/08/2019 SUBJECTIVE: Mr. Mckinney is seen this morning during hemodialysis. He is feeling about the same. He still has pain in his right foot. He had a left below the knee amputation done a couple of weeks ago and is currently getting acute rehab. Patient reports eating well, and denies any nausea, vomiting, dyspnea or chest pain. PHYSICAL EXAMINATION: Temperature 97.2 degrees Fahrenheit, heart rate 88 per minute, respiratory rate 18 per minute, blood pressure 130/76 mmHg, and oxygen saturation 97% on room air. Head is atraumatic. Neck supple and without JVD or thyroid enlargement. Dialysis catheter on left upper chest is intact. Heart sounds are regular, and lungs clear to auscultation. Abdomen is soft and nontender, bowel sounds normal. Extremities without any cyanosis or clubbing. Left leg stump is in a dressing. Right foot is also in a dressing. Neurologically, he is awake, alert and at his baseline mentation. LABORATORY DATA FROM 12/07/2019: Hemoglobin 9.3, hematocrit 28.5. Sodium 139, potassium 3.9, BUN 17 and creatinine 4.8. PROBLEMS: 1. End-stage renal disease: Patient is temporarily on hemodialysis as he is in acute rehab where peritoneal dialysis is not feasible. He is currently being dialyzed and tolerating dialysis well. 2. Hyponatremia: His sodium level has corrected to normal and no intervention is needed at this point. 3. Anemia: Anemia has been stable and he remains on Aranesp once a week. No changes are being made today. 4. Hypotension: He has chronic hypotension, but blood pressure seems to be doing well during dialysis. He remains on all his chronic medications and no changes are being made today. 5. Peripheral vascular disease; status post left below the knee amputation: Patient is making slow progress with acute rehab. [facility]
--- NOTE | 2019-12-10 12:03 | IPNPDOC ---
PM&R Progress Note DATE OF SERVICE: Dec 10, 2019 [employer] Progress Note Subjective: Patient reporting he is feeling ready to increase the Pamelor and that he thinks he is tolerating his current dose well. He is wondering when his danielito and sutures will come out of his BKA. REVIEW OF SYSTEMS: The following is a completed review of systems and has been reviewed. Review of systems otherwise unremarkable. PAIN: Patient self reports left residual limb pain and right toe burning pain (improving) EYES: No recent vision changes EARS, NOSE, & THROAT: No throat pain, or dysphagia, or rhinorrhea CARDIOVASCULAR: Denies chest pain or palpitations PULMONARY: Denies shortness of breath GASTROINTESTINAL: Denies constipation/diarrhea GENITOURINARY: anuric MUSCULOSKELETAL: left BKA NEUROLOGICAL:+neuropathic pain HEMATOLOGICAL: +anemia SKIN: right first toe gangrene, right heel pressure ulcer, and left BKA incision PSYCHIATRIC: Unremarkable All other review of systems found to be negative. PHYSICAL EXAMINATION: VITAL SIGNS: Please see below. GENERAL: Pleasant and cooperative. No acute distress HEENT: PERRL. Extraocular movements intact. Clear conjunctiva CARDIOVASCULAR: Regular rate and rhythm. No murmurs, rubs, or gallops LUNGS: Clear to auscultation bilaterally. No wheezes. No rhonchi ABDOMEN: Soft, nontender, nondistended. Positive bowel sounds. Normal active bowel sounds NEUROLOGICAL: Alert and oriented times three. Cranial nerves II through XII grossly intact. Sensation grossly intact in all 4limbs EXTREMITIES: 5\5 strength bilateral upper extremities. 4\5 strength right lower extremity except 1/5 right EHL. 4/5 strength in left hip flexors and knee extensors SKIN: stage 2 right heel ulcer, gangrenous right 1st toe, left residual limb with danielito and sutures without induration/erythema/drainage +sacral ulcer (healed) ASSESSMENT:79-year-old M with past medical history of bilateral nephrectomies who presents status post left BKA PLAN: 1. Rehab- PT/OT advance mobility, caregiver training, limb care, str etch/strengthen/maintain ROM all 4 limbs, wheelchair mobility improving 2. Neuro- patient with neuropathic pain in setting of peripheral neuropathy due to PVD will trial Pamelor -patient with known hx of delirium often pain medication/dialysis induced, will monitor and make necessary adjustments while on ARU 3. Cardiac- chronic CHF, c/u fluid restrict to 1800cc, daily weights, patient refusing renal diet, will defer fluid management to renal while on HD -midodrine ordered with holding parameters for hypotension -medicine consulted for assistance with overall care 4. Resp- monitor for infection, incentive spirometry 5. Vasc- s/p left BKA 11-21-19, c/u daily dressing changes, f/u vascular on d/c- will see if ok to remove danielito on day of d/c 12-13-19 as this is 3 weeks post- op -c/u ASA and plavix 6. Renal- patient converting to HD from PD, renal consulted in setting of bilateral nephrectomies -cinacalcet and sevelmar 7. Heme- anemia of chronic disease, will defer to renal for management 8. Pain- d/c'd hydrocodone, c/u Pamelor for nerve pain will increase to 30 mg BID as patient and spouse reporting overall improvements in his pain 9. Skin- dressing changes per wound care instructions, c/u barrier cream to sacrum, patient with hx of sacral ulcers 10. GI- omeprazole 11. DVT ppx- heparin 12. Dispo- 12-13-19 to home, progressing towards goals Allergies Coded Allergies: amlodipine (Verified Allergy, Unknown, 09/07/19) indomethacin (Verified Allergy, Unknown, 09/07/19) nifedipine (Verified Allergy, Unknown, 09/07/19) oxycodone (Unverified Allergy, Unknown, 11/21/19) NSAIDS (Non-Steroidal Anti-Inflamma (Verified Adverse Reaction, Intermediate, RECTAL BLEEDING, 09/07/19) TAKES 81MG ASA AT HOME FINE hydralazine (Verified Adverse Reaction, Mild, ELEVATED BP, 09/07/19) minoxidil (Verified Adverse Reaction, Mild, SWELLING, 11/21/19) Opioids - Morphine Analogues (Verified Adverse Reaction, Unknown, DIALYSIS PT, 09/14/19) epoetin beta (Verified Adverse Reaction, Unknown, 11/22/19) Hyporesponsive Vital Signs Vital Signs Date Time Temp Pulse Resp B/P (MAP) Pulse Ox O2 Delivery O2 Flow Rate FiO2 12/10/19 06:00 98.1 89 18 141/72 (95) 98 Room Air Laboratory Data CBC/BMP Laboratory Tests 12/10/19 07:10 Labs 24H Laboratory Tests 2 12/10/19 07:10: Immature Granulocyte % (Auto) 0.3, Neutrophils (%) (Auto) 55.3, Lymphocytes (%) (Auto) 21.7L, Monocytes (%) (Auto) 9.6H, Eosinophils (%) (Auto) 12.4H, Basophils (%) (Auto) 0.7, Neutrophils # (Auto) 3.9, Lymphocytes # (Auto) 1.5, Monocytes # (Auto) 0.7, Eosinophils # (Auto) 0.9H, Basophils # (Auto) 0.1, Nucleated Red Blood Cells % (auto) 0.0, Anion Gap 9, Glomerular Filtration Rate 10.2L, Calcium Level 10.4H Current Medications Current Medications Current Medications Medications (Trade) Dose Ordered Sig/Damien Route PRN Reason Start Time Stop Time Status Last Admin Dose Admin Acetaminophen (Tylenol Tab) 1,000 mg Q6HP PRN PO MILD PAIN (PS 1-4) 11/27/19 16:00 11/28/19 15:00 DC 11/28/19 06:31 Acetaminophen (Tylenol Tab) 1,000 mg TID PO 11/28/19 16:00 12/10/19 08:41 Acetaminophen/ Hydrocodone Bitart ([place], Anexsia 5/325) 1 tab Q6HP PRN PO MILD/MODERATE PAIN (PS 1-7) 11/27/19 16:00 11/28/19 15:00 DC 11/28/19 12:51 Albuterol/ Ipratropium (Duoneb (Ipr 0.5mg/Alb 2.5mg)) 3 ml RTID NEB 11/27/19 20:00 12/10/19 07:25 Aspirin (Ecotrin) 81 mg DAILY PO 11/28/19 09:00 12/10/19 08:41 Atorvastatin Calcium (Lipitor) 40 mg QHS PO 11/27/19 21:00 12/09/19 21:02 Cinacalcet (Sensipar) 60 mg MoWeFr@2100 PO 11/28/19 21:00 12/07/19 20:25 Clopidogrel Bisulfate (PLAVix) 75 mg DAILY PO 11/28/19 09:00 12/10/19 08:41 Darbepoetin [place] (Aranesp (Dialysis Use)) 200 mcg HD IV 11/28/19 11:45 Docusate Sodium (Colace) 100 mg 0900,1800 PO 11/29/19 18:00 12/09/19 09:19 Docusate Sodium (Colace) 100 mg BID PO 11/27/19 21:00 11/29/19 17:09 DC 11/29/19 09:24 Heparin Sodium (Porcine) (Heparin) 5,000 units Q12H SC 11/27/19 21:00 12/10/19 08:40 Home Med (Med Rec Complete!) ASDIRECTED XX 11/27/19 17:30 11/27/19 17:32 DC Iron (Venofer) 100 mg HD IV 11/28/19 11:45 12/13/19 21:00 Midodrine (Proamatine) 5 mg 0900,1300,1700 PO 11/27/19 17:00 12/10/19 08:41 Miscellaneous (Unresolved Clarification Entry) SEE LABEL COMMENTS DAILY XX 12/09/19 09:00 12/10/19 08:47 DC Multivitamins (Theragram-M) 1 tab DAILY PO 11/28/19 09:00 12/10/19 08:41 Nortriptyline HCl (Pamelor) 10 mg BID PO 11/30/19 11:45 12/03/19 17:33 DC 12/03/19 09:17 Nortriptyline HCl (Pamelor) 10 mg QHS PO 11/28/19 21:00 11/30/19 11:43 DC 11/29/19 21:16 Nortriptyline HCl (Pamelor) 20 mg BID PO 12/03/19 21:00 12/05/19 15:59 DC 12/05/19 08:05 Nortriptyline HCl (Pamelor) 20 mg BID@0900,1800 PO 12/05/19 18:00 12/10/19 08:45 Omeprazole (PriLOSEC) 40 mg DAILY PO 11/28/19 09:00 12/10/19 08:41 Potassium Chloride (Micro-K Extencaps) 20 meq 0900,1800 PO 11/29/19 18:00 12/01/19 09:48 DC 12/01/19 08:27 Potassium Chloride (Micro-K Extencaps) 20 meq BID PO 11/27/19 21:00 11/29/19 17:09 DC 11/29/19 09:24 Senna (Senokot) 1 tab QHS PO 11/27/19 21:00 11/29/19 17:09 DC 11/28/19 21:15 Sevelamer Carbonate (Renvela) 800 mg WM PO 11/27/19 18:00 12/10/19 08:41 Tramadol HCl (Ultram) 50 mg Q6HP PRN PO MODERATE PAIN (PS 5-7) 12/02/19 12:30 12/03/19 14:14 DC 12/03/19 06:40 JEFFERY CANTU MD Dec 10, 2019 12:03
[2019-12-10 14:00] VITALS: BP 162/82
[2019-12-10 20:00] VITALS: BP 142/80
[2019-12-10] MEDS: CINACALCET 30 MG TAB (SENSIPAR) PO SCH (21:54)
[2019-12-10] MEDS: ATORVASTATIN 20 MG TAB PO SCH (21:56)
[2019-12-11 06:00] VITALS: BP 160/78
[2019-12-11] MEDS: (RENVELA) SEVELAMER **CARBONate** 800 MG TAB PO SCH ×3 (08:00→18:00)
[2019-12-11] MEDS: IPRATROPIUM 0.5MG/ALBUTEROL 2.5MG INH SOL UD 3ML (DUONEB) NEB SCH ×3 (08:00→19:16)
[2019-12-11] MEDS: REMEDY PHYTOPLEX Z-GUARD PASTE 113GM TUBE (FROM STOREROOM PRODUCT) TOP SCH ×4 (09:00→20:40)
[2019-12-11] MEDS: ASPIRIN 81 MG ENTERIC TAB PO SCH (09:00)
[2019-12-11] MEDS: MIDODRINE 5 MG TAB PO SCH ×3 (09:00→17:00)
[2019-12-11] MEDS: ACETAMINOPHEN 500 MG TAB PO SCH ×3 (09:00→20:39)
[2019-12-11] MEDS: NORTRIPTYLINE 10 MG CAP PO SCH ×2 (09:00→17:58)
[2019-12-11] MEDS: MULTIVITAMINS/MINERALS THERAP 1 TAB PO SCH (09:00)
[2019-12-11] MEDS: OMEPRAZOLE 20 MG CAP PO SCH (09:00)
[2019-12-11] MEDS: DOCUSATE SODIUM 100 MG CAP PO SCH ×2 (09:00→18:00)
[2019-12-11] MEDS: HEPARIN SOD (PORCINE) 5000UNITS/ML 1ML VIAL/SYRINGE SC SCH ×2 (09:00→20:40)
[2019-12-11] MEDS: CLOPIDOGREL 75 MG TAB PO SCH (09:00)
--- NOTE | 2019-12-11 09:11 | IPN ---
DATE: 12/09/2019 Mr. Mckinney is seen this morning at the bedside. His is just getting out of his room in the wheelchair for physical therapy. He underwent hemodialysis yesterday. There was some difficulty during dialysis as he had to use the bedpan. He was not happy about it. He still has pain in his left leg stump following left [id number] amputation. Patient also reports pain in his right foot where he had gangrenous changes in the big toe. He has significant peripheral vascular disease. Patient has significant weight loss and has not been eating very well for several months. On physical examination, temperature 97.7 degrees Fahrenheit, heart rate 98 per minute, and respiratory rate 20 per minute. Blood pressure 138/78 mmHg and oxygen saturation 98%. His head is atraumatic. Neck is supple and without JVD or thyroid enlargement. Permacath is present on left shoulder area. Heart sounds regular and lungs have been clear to auscultation. Abdomen soft and nontender, peritoneal dialysis catheter is intact. Extremities have nocyanosis or clubbing. He has left [id number] amputation and stump is wrapped in a dressing. He also has a dressing on his right big toe. Neurologically he is awake and at his baseline mentation. Patient did not have any new labs since December 06. PROBLEMS: 1. End-stage renal disease. Patient was dialyzed yesterday and next dialysis will be scheduled for December 10. 2. Hypotension. He has history of chronic hypotension which is now very stable with midodrine that he has been receiving. We will continue with the same. 3. Anemia. His anemia is stable following [id number] amputation on his left leg. CBC will be checked with the next dialysis. 4. Peripheral vascular disease, status post left [id number] amputation. Patient has generalized significant vascular disease. His left leg stump is healing following amputation. He also has significant pain in his right foot area and is being followed by podiatry. 5. Generalized weakness and deconditioning. The patient is currently undergoing acute rehab. He is making very slow progress. [facility]
--- NOTE | 2019-12-11 13:06 | IPN ---
DATE: 12/10/2019 SUBJECTIVE: Mr. Mckinney is seen this morning at his bedside. He is sitting in the chair currently with his left leg stump on the pillow. He complains of pain in his right foot as he had accidental blunt trauma to the foot by the nursing staff. No fever or chills. PHYSICAL EXAMINATION: VITAL SIGNS: Temperature 98 degrees Fahrenheit, heart rate 88 per minute and respiratory rate 18 per minute. Blood pressure 141/72 mmHg and oxygen saturation 98% on room air. HEENT: Head is atraumatic. NECK: Supple without JVD or thyroid enlargement. CHEST: Perm-A-Cath is present on left upper chest. HEART: Heart sounds are regular. LUNGS: Clear to auscultation. ABDOMEN: Soft and nontender and peritoneal dialysis catheter is intact. EXTREMITIES: Without any cyanosis or clubbing. His right foot is wrapped in a dressing and left leg stump is also in a dressing. LABORATORY DATA: Todays labs showed WBC count of 7.0, hemoglobin 9.6 and hematocrit 30.2, platelets are 383,000. Sodium is 139, potassium is 4.6, BUN 25 and creatinine 6.81. Calcium level is 10.4. PROBLEMS: 1. Endstage renal disease. Patient is currently on hemodialysis and he was last dialyzed on Tuesday. The next dialysis will be scheduled for tomorrow. There is no emergent need for dialysis today. 2. Anemia, his anemia is stable and we will continue with weekly dose of Aranesp and dialysis. 3. Peripheral vascular disease, status post left below the knee amputation. The stump is currently in the dressing. I have been told that it is healing nicely. The patient will be evaluated by vascular surgery for suture removal during the week. Patient also has ischemia of his right big toe with gangrenous changes. He had some debridement done by Podiatry. It remains to be seen if it heals. 4. Hypotension. Blood pressure has improved and the patient remains on Midodrine three times a day. [facility]
[2019-12-11 16:40] VITALS: BP 150/83
[2019-12-11 20:00] VITALS: BP 156/80
[2019-12-11] MEDS: ATORVASTATIN 20 MG TAB PO SCH (20:39)
[2019-12-12 06:00] VITALS: BP 118/70
[2019-12-12] MEDS: IPRATROPIUM 0.5MG/ALBUTEROL 2.5MG INH SOL UD 3ML (DUONEB) NEB SCH ×3 (06:09→19:02)
[2019-12-12 07:12] LABS: BASO % 0.6 % (0.0-1.0); EOS # 0.9 10^3/uL (0.0-0.5); EOS % 12.7 % (0.0-3.0); HEMATOCRIT 31.4 % (42.0-52.0); HEMOGLOBIN 10.2 g/dl (13.5-17.5); LYMPH # 2.5 10^3/uL (1.5-5.0); LYMPH % 36.9 % (24.0-44.0); MEAN CORPUSCULAR HGB CONC 32.5 g/dl (32.0-36.5); MEAN CORPUSCULAR VOLUME 98.4 fl (80.0-96.0); MONO # 0.6 10^3/uL (0.0-0.8); MONO % 8.1 % (0.0-5.0); NEUTROPHILS # 2.8 10^3/uL (1.5-8.5); NEUTROPHILS % 41.6 % (36.0-66.0); PLATELET COUNT, AUTOMATED 373 10^3/uL (150-450); RED BLOOD COUNT 3.19 10^6/uL (4.30-6.10); WHITE BLOOD COUNT 6.8 10^3/uL (4.0-10.0)
[2019-12-12 07:49] LABS: CREATININE FOR GFR 5.57 MG/DL (0.70-1.30); GLOMERULAR FILTRATION RATE 12.9 (>42); POTASSIUM SERUM 4.1 MEQ/L (3.5-5.1)
[2019-12-12] MEDS: CLOPIDOGREL 75 MG TAB PO SCH (09:28)
[2019-12-12] MEDS: (RENVELA) SEVELAMER **CARBONate** 800 MG TAB PO SCH ×3 (09:28→16:59)
[2019-12-12] MEDS: OMEPRAZOLE 20 MG CAP PO SCH (09:28)
[2019-12-12] MEDS: DOCUSATE SODIUM 100 MG CAP PO SCH ×2 (09:29→16:59)
[2019-12-12] MEDS: ASPIRIN 81 MG ENTERIC TAB PO SCH (09:29)
[2019-12-12] MEDS: MIDODRINE 5 MG TAB PO SCH ×3 (09:29→16:57)
[2019-12-12] MEDS: ACETAMINOPHEN 500 MG TAB PO SCH ×3 (09:29→20:20)
[2019-12-12] MEDS: NORTRIPTYLINE 10 MG CAP PO SCH ×2 (09:30→16:59)
[2019-12-12] MEDS: HEPARIN SOD (PORCINE) 5000UNITS/ML 1ML VIAL/SYRINGE SC SCH ×2 (09:30→20:19)
[2019-12-12] MEDS: MULTIVITAMINS/MINERALS THERAP 1 TAB PO SCH (09:30)
[2019-12-12] MEDS: REMEDY PHYTOPLEX Z-GUARD PASTE 113GM TUBE (FROM STOREROOM PRODUCT) TOP SCH ×4 (09:57→20:19)
[2019-12-12] MEDS ORDERED: OMEP-218 PO (10:51)
[2019-12-12] MEDS ORDERED: ASPI81TA86 PO (10:51)
[2019-12-12] MEDS ORDERED: CLOP75TA2 PO (10:51)
[2019-12-12] MEDS ORDERED: ATOR40TA75 PO (10:51)
[2019-12-12] MEDS ORDERED: RENV2TAB PO (10:51)
[2019-12-12] MEDS ORDERED: SENS60TA PO (10:51)
[2019-12-12] MEDS ORDERED: MIDO5TA PO (10:52)
[2019-12-12] MEDS ORDERED: NORT10CA2 PO (10:52)
--- NOTE | 2019-12-12 10:54 | IPNPDOC ---
PM&R Progress Note DATE OF SERVICE: Dec 11, 2019 Senior Instructor Progress Note Subjective: Patient seen in dialysis stating he feels tired today, that he did not sleep well las night because he was woken up often, but that his pain still seems to be gradually improving. REVIEW OF SYSTEMS: The following is a completed review of systems and has been reviewed. Review of systems otherwise unremarkable. PAIN: Patient self reports left residual limb pain and right toe burning pain (improving) EYES: No recent vision changes EARS, NOSE, & THROAT: No throat pain, or dysphagia, or rhinorrhea CARDIOVASCULAR: Denies chest pain or palpitations PULMONARY: Denies shortness of breath GASTROINTESTINAL: Denies constipation/diarrhea GENITOURINARY: anuric MUSCULOSKELETAL: left BKA NEUROLOGICAL:+neuropathic pain HEMATOLOGICAL: +anemia SKIN: right first toe gangrene, right heel pressure ulcer, and left BKA incision PSYCHIATRIC: Unremarkable All other review of systems found to be negative. PHYSICAL EXAMINATION: VITAL SIGNS: Please see below. GENERAL: Pleasant and cooperative. No acute distress HEENT: PERRL. Extraocular movements intact. Clear conjunctiva CARDIOVASCULAR: Regular rate and rhythm. No murmurs, rubs, or gallops LUNGS: Clear to auscultation bilaterally. No wheezes. No rhonchi ABDOMEN: Soft, nontender, nondistended. Positive bowel sounds. Normal active bowel sounds NEUROLOGICAL: Alert and oriented times three. Cranial nerves II through XII grossly intact. Sensation grossly intact in all 4limbs EXTREMITIES: 5\5 strength bilateral upper extremities. 4\5 strength right lower extremity except 1/5 right EHL. 4/5 strength in left hip flexors and knee extensors SKIN: stage 2 right heel ulcer, gangrenous right 1st toe, left residual limb with danielito and sutures without induration/erythema/drainage +sacral ulcer (healed) ASSESSMENT:79-year-old M with past medical history of bilateral nephrectomies who presents status post left BKA PLAN: 1. Rehab- PT/OT advance mobility, caregiver training, limb care, stretch/strengt hen/maintain ROM all 4 limbs, wheelchair mobility improving 2. Neuro- patient with neuropathic pain in setting of peripheral neuropathy due to PVD will trial Pamelor -patient with known hx of delirium often pain medication/dialysis induced, will monitor and make necessary adjustments while on ARU 3. Cardiac- chronic CHF, c/u fluid restrict to 1800cc, daily weights, patient refusing renal diet, will defer fluid management to renal while on HD -midodrine ordered with holding parameters for hypotension -medicine consulted for assistance with overall care 4. Resp- monitor for infection, incentive spirometry 5. 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 Renal- patient converting to HD from PD, renal consulted in setting of bilateral nephrectomies -cinacalcet and sevelmar 7. Heme- anemia of chronic disease, will defer to renal for management 8. Pain- d/c'd hydrocodone, c/u Pamelor for nerve pain at increased dose of 30 mg BID as patient and spouse reporting overall improvements in his pain 9. Skin- dressing changes per wound care instructions, c/u barrier cream to sacrum, patient with hx of sacral ulcers 10. GI- omeprazole 11. DVT ppx- heparin 12. Dispo- 12-13-19 to home, progressing towards goals Allergies Coded Allergies: amlodipine (Verified Allergy, Unknown, 09/07/19) indomethacin (Verified Allergy, Unknown, 09/07/19) nifedipine (Verified Allergy, Unknown, 09/07/19) oxycodone (Unverified Allergy, Unknown, 11/21/19) NSAIDS (Non-Steroidal Anti-Inflamma (Verified Adverse Reaction, Intermediate, RECTAL BLEEDING, 09/07/19) TAKES 81MG ASA AT HOME FINE hydralazine (Verified Adverse Reaction, Mild, ELEVATED BP, 09/07/19) minoxidil (Verified Adverse Reaction, Mild, SWELLING, 11/21/19) Opioids - Morphine Analogues (Verified Adverse Reaction, Unknown, DIALYSIS PT, 09/14/19) epoetin beta (Verified Adverse Reaction, Unknown, 11/22/19) Hyporesponsive Vital Signs Vital Signs Date Time Temp Pulse Resp B/P (MAP) Pulse Ox O2 Delivery O2 Flow Rate FiO2 12/12/19 06:00 97.7 87 18 118/70 (86) 100 Room Air Laboratory Data CBC/BMP Laboratory Tests 12/12/19 06:59 Labs 24H Laboratory Tests 2 12/11/19 11:46: Bedside Glucose (Misc Panel) 116H 12/12/19 06:59: Immature Granulocyte % (Auto) 0.1, Neutrophils (%) (Auto) 41.6, Lymphocytes (%) (Auto) 36.9, Monocytes (%) (Auto) 8.1H, Eosinophils (%) (Auto) 12.7H, Basophils (%) (Auto) 0.6, Neutrophils # (Auto) 2.8, Lymphocytes # (Auto) 2.5, Monocytes # (Auto) 0.6, Eosinophils # (Auto) 0.9H, Basophils # (Auto) 0.0, Nucleated Red Blood Cells % (auto) 0.0, Anion Gap 5L, Glomerular Filtration Rate 12.9L, Calcium Level 10.0 Current Medications Current Medications Current Medications Medications (Trade) Dose Ordered Sig/Damien Route PRN Reason Start Time Stop Time Status Last Admin Dose Admin Acetaminophen (Tylenol Tab) 1,000 mg Q6HP PRN PO MILD PAIN (PS 1-4) 11/27/19 16:00 11/28/19 15:00 DC 11/28/19 06:31 Acetaminophen (Tylenol Tab) 1,000 mg TID PO 11/28/19 16:00 12/12/19 09:29 Acetaminophen/ Hydrocodone Bitart ([place], Anexsia 5/325) 1 tab Q6HP PRN PO MILD/MODERATE PAIN (PS 1-7) 11/27/19 16:00 11/28/19 15:00 DC 11/28/19 12:51 Albuterol/ Ipratropium (Duoneb (Ipr 0.5mg/Alb 2.5mg)) 3 ml RTID NEB 11/27/19 20:00 12/12/19 06:09 Aspirin (Ecotrin) 81 mg DAILY PO 11/28/19 09:00 12/12/19 09:29 Atorvastatin Calcium (Lipitor) 40 mg QHS PO 11/27/19 21:00 12/11/19 20:39 Cinacalcet (Sensipar) 60 mg MoWeFr@2100 PO 11/28/19 21:00 12/10/19 21:54 Clopidogrel Bisulfate (PLAVix) 75 mg DAILY PO 11/28/19 09:00 12/12/19 09:28 Darbepoetin Irving (Aranesp (Dialysis Use)) 200 mcg HD IV 11/28/19 11:45 Docusate Sodium (Colace) 100 mg 0900,1800 PO 11/29/19 18:00 12/12/19 09:29 Docusate Sodium (Colace) 100 mg BID PO 11/27/19 21:00 11/29/19 17:09 DC 11/29/19 09:24 Heparin Sodium (Porcine) (Heparin) 5,000 units Q12H SC 11/27/19 21:00 12/12/19 09:30 Home Med (Med Rec Complete!) ASDIRECTED XX 11/27/19 17:30 11/27/19 17:32 DC Iron (Venofer) 100 mg HD IV 11/28/19 11:45 12/13/19 21:00 Midodrine (Proamatine) 5 mg 0900,1300,1700 PO 11/27/19 17:00 12/12/19 09:29 Miscellaneous (Unresolved Clarification Entry) SEE LABEL COMMENTS DAILY XX 12/09/19 09:00 12/10/19 08:47 DC Multivitamins (Theragram-M) 1 tab DAILY PO 11/28/19 09:00 12/12/19 09:30 Nortriptyline HCl (Pamelor) 10 mg BID PO 11/30/19 11:45 12/03/19 17:33 DC 12/03/19 09:17 Nortriptyline HCl (Pamelor) 10 mg QHS PO 11/28/19 21:00 11/30/19 11:43 DC 11/29/19 21:16 Nortriptyline HCl (Pamelor) 20 mg BID PO 12/03/19 21:00 12/05/19 15:59 DC 12/05/19 08:05 Nortriptyline HCl (Pamelor) 20 mg BID@0900,1800 PO 12/05/19 18:00 12/10/19 16:22 DC 12/10/19 08:45 Nortriptyline HCl (Pamelor) 30 mg BID@0900,1800 PO 12/10/19 18:00 12/12/19 09:30 Omeprazole (PriLOSEC) 40 mg DAILY PO 11/28/19 09:00 12/12/19 09:28 Potassium Chloride (Micro-K Extencaps) 20 meq 0900,1800 PO 11/29/19 18:00 12/01/19 09:48 DC 12/01/19 08:27 Potassium Chloride (Micro-K Extencaps) 20 meq BID PO 11/27/19 21:00 11/29/19 17:09 DC 11/29/19 09:24 Senna (Senokot) 1 tab QHS PO 11/27/19 21:00 11/29/19 17:09 DC 11/28/19 21:15 Sevelamer Carbonate (Renvela) 800 mg WM PO 11/27/19 18:00 12/12/19 09:28 Tramadol HCl (Ultram) 50 mg Q6HP PRN PO MODERATE PAIN (PS 5-7) 12/02/19 12:30 12/03/19 14:14 DC 12/03/19 06:40 JEFFERY CANTU MD Dec 12, 2019 10:54
--- NOTE | 2019-12-12 10:55 | IPNPDOC ---
PM&R Progress Note DATE OF SERVICE: Dec 12, 2019 Lockstitch Tunnel Elastic Operator Progress Note Subjective: Patient seen with his , stating he is ready to go home tomorrow and wondering when his permacath will come out. REVIEW OF SYSTEMS: The following is a completed review of systems and has been reviewed. Review of systems otherwise unremarkable. PAIN: Patient self reports left residual limb pain and right toe burning pain (improving) EYES: No recent vision changes EARS, NOSE, & THROAT: No throat pain, or dysphagia, or rhinorrhea CARDIOVASCULAR: Denies chest pain or palpitations PULMONARY: Denies shortness of breath GASTROINTESTINAL: Denies constipation/diarrhea GENITOURINARY: anuric MUSCULOSKELETAL: left BKA NEUROLOGICAL:+neuropathic pain HEMATOLOGICAL: +anemia SKIN: right first toe gangrene, right heel pressure ulcer, and left BKA incision PSYCHIATRIC: Unremarkable All other review of systems found to be negative. PHYSICAL EXAMINATION: VITAL SIGNS: Please see below. GENERAL: Pleasant and cooperative. No acute distress HEENT: PERRL. Extraocular movements intact. Clear conjunctiva CARDIOVASCULAR: Regular rate and rhythm. No murmurs, rubs, or gallops LUNGS: Clear to auscultation bilaterally. No wheezes. No rhonchi ABDOMEN: Soft, nontender, nondistended. Positive bowel sounds. Normal active bowel sounds NEUROLOGICAL: Alert and oriented times three. Cranial nerves II through XII grossly intact. Sensation grossly intact in all 4limbs EXTREMITIES: 5\5 strength bilateral upper extremities. 4\5 strength right lower extremity except 1/5 right EHL. 4/5 strength in left hip flexors and knee extensors SKIN: stage 2 right heel ulcer, gangrenous right 1st toe, left residual limb with danielito and sutures without induration/erythema/drainage +sacral ulcer (healed) ASSESSMENT:79-year-old M with past medical history of bilateral nephrectomies who presents status post left BKA PLAN: 1. Rehab- PT/OT advance mobility, caregiver training, limb care, stretch/strengthen/maintain ROM all 4 limbs, wheelchair mobility improving 2. Neuro- patient with neuropathic pain in setting of peripheral neuropathy due to PVD will trial Pamelor -patient with known hx of delirium often pain medication/dialysis induced, will monitor and make necessary adjustments while on ARU 3. Cardiac- chronic CHF, c/u fluid restrict to 1800cc, daily weights, patient refusing renal diet, will defer fluid management to renal while on HD -midodrine ordered with holding parameters for hypotension -medicine consulted for assistance with overall care 4. Resp- monitor for infection, incentive spirometry 5. 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 Renal- patient converting to HD from PD, renal consulted in setting of bilateral nephrectomies -cinacalcet and sevelmar 7. Heme- anemia of chronic disease, will defer to renal for management 8. Pain- d/c'd hydrocodone, c/u Pamelor for nerve pain at increased dose of 30 mg BID as patient and spouse reporting overall improvements in his pain 9. Skin- dressing changes per wound care instructions, c/u barrier cream to sacrum, patient with hx of sacral ulcers 10. GI- omeprazole 11. DVT ppx- heparin 12. Dispo- 12-13-19 to home, progressing towards goals Allergies Coded Allergies: amlodipine (Verified Allergy, Unknown, 09/07/19) indomethacin (Verified Allergy, Unknown, 09/07/19) nifedipine (Verified Allergy, Unknown, 09/07/19) oxycodone (Unverified Allergy, Unknown, 11/21/19) NSAIDS (Non-Steroidal Anti-Inflamma (Verified Adverse Reaction, Intermediate, RECTAL BLEEDING, 09/07/19) TAKES 81MG ASA AT HOME FINE hydralazine (Verified Adverse Reaction, Mild, ELEVATED BP, 09/07/19) minoxidil (Verified Adverse Reaction, Mild, SWELLING, 11/21/19) Opioids - Morphine Analogues (Verified Adverse Reaction, Unknown, DIALYSIS PT, 09/14/19) epoetin beta (Verified Adverse Reaction, Unknown, 11/22/19) Hyporesponsive Vital Signs Vital Signs Date Time Temp Pulse Resp B/P (MAP) Pulse Ox O2 Delivery O2 Flow Rate FiO2 12/12/19 06:00 97.7 87 18 118/70 (86) 100 Room Air Laboratory Data CBC/BMP Laboratory Tests 12/12/19 06:59 Labs 24H Laboratory Tests 2 12/11/19 11:46: Bedside Glucose (Misc Panel) 116H 12/12/19 06:59: Immature Granulocyte % (Auto) 0.1, Neutrophils (%) (Auto) 41.6, Lymphocytes (%) (Auto) 36.9, Monocytes (%) (Auto) 8.1H, Eosinophils (%) (Auto) 12.7H, Basophils (%) (Auto) 0.6, Neutrophils # (Auto) 2.8, Lymphocytes # (Auto) 2.5, Monocytes # (Auto) 0.6, Eosinophils # (Auto) 0.9H, Basophils # (Auto) 0.0, Nucleated Red Blood Cells % (auto) 0.0, Anion Gap 5L, Glomerular Filtration Rate 12.9L, Calcium Level 10.0 Current Medications Current Medications Current Medications Medications (Trade) Dose Ordered Sig/Damien Route PRN Reason Start Time Stop Time Status Last Admin Dose Admin Acetaminophen (Tylenol Tab) 1,000 mg Q6HP PRN PO MILD PAIN (PS 1-4) 11/27/19 16:00 11/28/19 15:00 DC 11/28/19 06:31 Acetaminophen (Tylenol Tab) 1,000 mg TID PO 11/28/19 16:00 12/12/19 09:29 Acetaminophen/ Hydrocodone Bitart ([place], Anexsia 5/325) 1 tab Q6HP PRN PO MILD/MODERATE PAIN (PS 1-7) 11/27/19 16:00 11/28/19 15:00 DC 11/28/19 12:51 Albuterol/ Ipratropium (Duoneb (Ipr 0.5mg/Alb 2.5mg)) 3 ml RTID NEB 11/27/19 20:00 12/12/19 06:09 Aspirin (Ecotrin) 81 mg DAILY PO 11/28/19 09:00 12/12/19 09:29 Atorvastatin Calcium (Lipitor) 40 mg QHS PO 11/27/19 21:00 12/11/19 20:39 Cinacalcet (Sensipar) 60 mg MoWeFr@2100 PO 11/28/19 21:00 12/10/19 21:54 Clopidogrel Bisulfate (PLAVix) 75 mg DAILY PO 11/28/19 09:00 12/12/19 09:28 Darbepoetin [place] (Aranesp (Dialysis Use)) 200 mcg HD IV 11/28/19 11:45 Docusate Sodium (Colace) 100 mg 0900,1800 PO 11/29/19 18:00 12/12/19 09:29 Docusate Sodium (Colace) 100 mg BID PO 11/27/19 21:00 11/29/19 17:09 DC 11/29/19 09:24 Heparin Sodium (Porcine) (Heparin) 5,000 units Q12H SC 11/27/19 21:00 12/12/19 09:30 Home Med (Med Rec Complete!) ASDIRECTED XX 11/27/19 17:30 11/27/19 17:32 DC Iron (Venofer) 100 mg HD IV 11/28/19 11:45 12/13/19 21:00 Midodrine (Proamatine) 5 mg 0900,1300,1700 PO 11/27/19 17:00 12/12/19 09:29 Miscellaneous (Unresolved Clarification Entry) SEE LABEL COMMENTS DAILY XX 12/09/19 09:00 12/10/19 08:47 DC Multivitamins (Theragram-M) 1 tab DAILY PO 11/28/19 09:00 12/12/19 09:30 Nortriptyline HCl (Pamelor) 10 mg BID PO 11/30/19 11:45 12/03/19 17:33 DC 12/03/19 09:17 Nortriptyline HCl (Pamelor) 10 mg QHS PO 11/28/19 21:00 11/30/19 11:43 DC 11/29/19 21:16 Nortriptyline HCl (Pamelor) 20 mg BID PO 12/03/19 21:00 12/05/19 15:59 DC 12/05/19 08:05 Nortriptyline HCl (Pamelor) 20 mg BID@0900,1800 PO 12/05/19 18:00 12/10/19 16:22 DC 12/10/19 08:45 Nortriptyline HCl (Pamelor) 30 mg BID@0900,1800 PO 12/10/19 18:00 12/12/19 09:30 Omeprazole (PriLOSEC) 40 mg DAILY PO 11/28/19 09:00 12/12/19 09:28 Potassium Chloride (Micro-K Extencaps) 20 meq 0900,1800 PO 11/29/19 18:00 12/01/19 09:48 DC 12/01/19 08:27 Potassium Chloride (Micro-K Extencaps) 20 meq BID PO 11/27/19 21:00 11/29/19 17:09 DC 11/29/19 09:24 Senna (Senokot) 1 tab QHS PO 11/27/19 21:00 11/29/19 17:09 DC 11/28/19 21:15 Sevelamer Carbonate (Renvela) 800 mg WM PO 11/27/19 18:00 12/12/19 09:28 Tramadol HCl (Ultram) 50 mg Q6HP PRN PO MODERATE PAIN (PS 5-7) 12/02/19 12:30 12/03/19 14:14 DC 12/03/19 06:40 JEFFERY CANTU MD Dec 12, 2019 10:55
[2019-12-12 13:30] VITALS: BP 141/75
[2019-12-12 14:00] VITALS: BP 141/75
[2019-12-12 16:58] VITALS: BP 142/78
[2019-12-12 20:00] VITALS: BP 140/78
[2019-12-12] MEDS: CINACALCET 30 MG TAB (SENSIPAR) PO SCH (20:19)
[2019-12-12] MEDS: ATORVASTATIN 20 MG TAB PO SCH (20:19)
[2019-12-13 06:01] VITALS: BP 136/78
[2019-12-13] MEDS: IPRATROPIUM 0.5MG/ALBUTEROL 2.5MG INH SOL UD 3ML (DUONEB) NEB SCH ×2 (07:20→13:05)
[2019-12-13] MEDS: MULTIVITAMINS/MINERALS THERAP 1 TAB PO SCH (08:34)
[2019-12-13] MEDS: OMEPRAZOLE 20 MG CAP PO SCH (08:34)
[2019-12-13] MEDS: NORTRIPTYLINE 10 MG CAP PO SCH (08:34)
[2019-12-13] MEDS: CLOPIDOGREL 75 MG TAB PO SCH (08:34)
[2019-12-13] MEDS: ASPIRIN 81 MG ENTERIC TAB PO SCH (08:34)
[2019-12-13] MEDS: ACETAMINOPHEN 500 MG TAB PO SCH (08:34)
[2019-12-13] MEDS: (RENVELA) SEVELAMER **CARBONate** 800 MG TAB PO SCH ×2 (08:34→12:30)
[2019-12-13] MEDS: DOCUSATE SODIUM 100 MG CAP PO SCH (08:34)
[2019-12-13] MEDS: MIDODRINE 5 MG TAB PO SCH ×2 (08:35→13:00)
[2019-12-13] MEDS: REMEDY PHYTOPLEX Z-GUARD PASTE 113GM TUBE (FROM STOREROOM PRODUCT) TOP SCH ×2 (08:35→13:00)
[2019-12-13] MEDS: HEPARIN SOD (PORCINE) 5000UNITS/ML 1ML VIAL/SYRINGE SC SCH (08:35)
--- NOTE | 2019-12-13 11:08 | IPNPDOC ---
Text Note Date of Service The patient was seen on 12/13/19. NOTE PermCath Removal Procedure Note INDICATION: Patient is being discharged from acute rehab, where he required hemodialysis due to lack of access to peritoneal dialysis, and will return to peritoneal dialysis at home. PROCEDURE HEAD CD REACTOR OPERATOR: Dr. Page Gillette DO PGY-2 ATTENDING PHYSICIAN: Dr. Shanel Forman, the attending Pan Puller, was present for the procedure. PREOPERATIVE DIAGNOSES: End-stage renal disease requiring temporary hemodialysis due to lack of access to peritoneal dialysis during acute rehabilitation admission. POSTOPERATIVE DIAGNOSES: End-stage renal disease requiring peritoneal dialysis. PROCEDURE: Removal of left PermCath hemodialysis catheter. PROCEDURE SUMMARY: With the patient in supine position, the left side of the neck and the existing catheter were prepped. Three sutures were cut and removed from the skin. The catheter was then removed without complications. The patient was moved to an upright position and pressure was held over the entry site in the left internal jugular vein. Hemostasis was achieved. Dressings were placed over the skin wound on the subclavicular region. The patient tolerated the procedure well. No complications occurred during or immediately after the procedure. Estimated blood loss is 0 mL. Impression: Successful removal of left internal jugular vein tunneled catheter. PAGE GILLETTE D.O. Dec 13, 2019 11:08
--- NOTE | 2019-12-13 12:24 | IPN ---
DATE: 12/11/2019 SUBJECTIVE: Mr. Mckinney is seen this morning on his bedside. He is sitting in the bed. Nursing staff and physical rehab staff is around him. Patient is getting ready for rehab. Staff has informed me that the patient is likely to be discharged to home on . He has question about his hemodialysis catheter. PHYSICAL EXAMINATION: Temperature 98.4 degrees Fahrenheit, heart rate 98 per minute, respiratory rate 18 per minute, blood pressure 140/80 mmHg and oxygen saturation 100% on room air. Head is atraumatic. Neck is supple and without JVD or thyroid enlargement. Left-sided Permacath is present on upper chest. Heart sounds are regular. Lungs clear to auscultation. Abdomen is soft and nontender. Peritoneal dialysis catheter is intact. Extremities without any cyanosis or clubbing. He has left below the knee amputation and leg stump is wrapped in dressing. He also has dressing on his right foot. Neurologically, patient is awake, alert and at his baseline mentation. PROBLEMS: 1. End-stage renal disease: Patient was last dialyzed on Tuesday. He will be dialyzed again today. His volume status is well compensated. Will remove minimal amount of fluid. 2. Anemia: His anemia has been stable and does not need any urgent intervention. 3. Peripheral vascular disease; status post left below the knee amputation: Patient continues with acute rehab. He is likely to be discharged on . 4. Dialysis catheters: Patient has peritoneal dialysis catheter and I have advised the dialysis staff to flush his catheter possibly on December 11, so he can be discharged on the . We will also remove his Permacath prior to discharge. 5. Patient had questions about his dialysis schedule and dialysis catheter: Those questions were answered. ILDA
--- NOTE | 2019-12-14 11:55 | IPN ---
DATE: 12/12/2019 SUBJECTIVE: Mr. Mckinney is seen this morning in his room. He is currently busy with cleaning himself. He did have dialysis yesterday and tolerated it well. The nursing staff reports the patient is scheduled for discharge to home tomorrow. PHYSICAL EXAMINATION: VITAL SIGNS: Temperature 97.7 degrees Fahrenheit, heart rate is 87 per minute, respiratory rate 18 per minute. Blood pressure 118/70 mmHg and oxygen saturation 100% on room air. HEENT: Head is atraumatic. NECK: Supple without JVD or thyroid enlargement. There is hemodialysis catheter on left upper chest. HEART: Heart sounds are regular. LUNGS: Clear to auscultation. ABDOMEN: Soft and nontender. Peritoneal dialysis catheter is intact. EXTREMITIES: Without any cyanosis or clubbing. He has a left below the knee amputation and the stump is wrapped in a dressing. Right foot is also wrapped in a dressing due to gangrenous changes in his right big toe. LABORATORY DATA: Todays labs shows a WBC count of 6.8, hemoglobin 10.2 and hematocrit 31.4, platelets 373,000. Sodium 138, potassium is 4.1, BUN 15, and creatinine is 5.57. Calcium is now down to 10.0. PROBLEMS: 1. Endstage renal disease. Patient was dialyzed yesterday. He will be due for his next dialysis tomorrow, however he does not wish to have hemodialysis tomorrow and wants to go home and resume his peritoneal dialysis. I think that would be appropriate and we will remove his Perm-A-Cath tomorrow. Today, the nursing staff from outpatient peritoneal dialysis clinic will come and flush his dialysis catheter. 2. Anemia, his anemia has been stable and he will be managed as an outpatient and dialysis clinic. 3. Peripheral vascular disease, status post left below the knee amputation. Patient is making good progress with rehab. He is likely to be discharged tomorrow. From a renal standpoint, the patient is stable for discharge and will follow-up as an outpatient. He will be switched to peritoneal dialysis tomorrow night at home. ILDA
--- NOTE | 2019-12-14 11:57 | IPN ---
DATE: 12/13/2019 SUBJECTIVE: The patient is seen this morning on his bedside. He is feeling well and likely to go home this afternoon. He did not want to have hemodialysis today, so we removed his left IJ Permacath on his bedside without any problem. Patient consented for the procedure and procedure was performed on the bedside. Full catheter was removed without any problems under my supervision and pressure dressing was applied after applying digital pressure for 5 minutes. There was no complication and patient tolerated the procedure well. PHYSICAL EXAMINATION: VITAL SIGNS: Temperature 98.4 degrees Fahrenheit, heart rate 80 per minute, respiratory rate 17 per minute, blood pressure 136/78 mmHg and oxygen saturation 100% on room air. HEENT: Head is atraumatic. NECK: Supple and JVD is not elevated. His left IJ Permacath has been just removed. HEART: Heart sounds are regular. LUNGS: Clear to auscultation. ABDOMEN: Soft and nontender. Peritoneal dialysis catheter is intact. EXTREMITIES: Without any cyanosis or clubbing. Left leg below the knee amputation stump is wrapped in a dressing. Patient reports that his danielito were removed yesterday. PROBLEMS: 1. End-stage renal disease: Patient was last dialyzed on Tuesday. He wants to go home today and does not wish to have hemodialysis today. He will resume his peritoneal dialysis at home tonight. 2. Anemia: His anemia has been stable with hemoglobin 10.2 yesterday. He did receive Aranesp during hemodialysis and now this should be managed in outpatient dialysis clinic. 3. Hypotension: His blood pressure has improved with Midodrine and he should continue with the same at home. 4. Peripheral vascular disease; status post left below the knee amputation: The patient has made some progress with acute rehab. He is going to be discharged to home today and follow-up as an outpatient for his prosthesis. ILDA
--- NOTE | 2020-01-01 11:43 | DSES ---
DATE OF ADMISSION: 11/27/2019 DATE OF DISCHARGE: 12/13/2019 CHIEF COMPLAINT/DISCHARGE DIAGNOSIS: Left BKA. HISTORY OF PRESENT ILLNESS: This is a 79-year-old male with a past medical history of renal cell carcinoma status post nephrectomy, on peritoneal dialysis, CHF, HTN, GERD, prostate cancer status post prostatectomy, anemia of chronic disease, CAD, secondary hyperparathyroidism, right hallux gangrene followed by Podiatry. Admitted to the Hospitalist service on 11/21/19 following a same day surgery of a left sided BKA performed by Dr. Canseco for ischemic foot. He was followed by Nephrology, received a blood transfusion for anemia and had his potassium repleted. He had an episode of non-sustained V-tach and was treated with a beta marlo. His pain was managed with Valium and opioids and per patient he did not tolerate his medications well as they made him confused and impeded his participation in therapy. He was evaluated by therapy and found to have impairments in mobility and ADLs and deemed medically appropriate for discharge to ARU on 11/27/2019. PAST MEDICAL HISTORY: As per HPI. HOSPITAL COURSE: The patient was admitted and enrolled in a comprehensive PT/OT program. He received 24 hour nursing supervision and weekly team meetings were held to discuss his progress. Patient received dialysis during his hospital course without any complications and was maintained on aspirin and Plavix for his peripheral vascular disease. He also received daily dressing changes for his left BKA and wound care to his sacrum. Patient was started on Pamelor for nerve pain which was gradually increased with significant improvement in his pain. However, his pain was not completely resolved. Patient made slow and steady gains in therapy and was deemed medically and functioning stable to return home. DISCHARGE MEDICATIONS: As per instructions. FUNCTIONAL HISTORY ON DISCHARGE: Patient was standby assist for bed mobility, contact guard for bed to chair transfers and in Occupational Therapy he was max assist for lower body dressing, modified independent for grooming, total assist for toileting. Thank you for this referral. [facility] SYSTEMSushil
--- NOTE | 2020-01-11 14:09 | IPN ---
DATE: 11/28/2019 Mr. Mckinney is seen this morning on is bedside. He just finished physical therapy and feels tired. He was transferred to acute rehabilitation floor yesterday from the medical/surgical floor. Patient denies any dyspnea, chest pain, nausea, or vomiting. He has no fever or chills. He just had a left below-knee amputation done last week. PHYSICAL EXAMINATION: Temperature 97.6 degrees Fahrenheit, heart rate 69 per minute, and respiratory rate 18 per minute, blood pressure 150/74 mm of mercury, and oxygen saturation 96% on room air. Head is atraumatic. Neck supple and without jugular venous distention (JVD) or thyroid enlargement. Heart sounds are regular and lungs clear to auscultation. Abdomen soft and nontender. Peritoneal dialysis catheter is intact. On left upper chest he has a hemodialysis catheter without any signs of infection. Extremities without any cyanosis or clubbing. He has left below-knee amputation. Right big toe is also in the dressing after surgery. Today's labs show WBC count 7.3, hemoglobin 8.9, and hematocrit 25.2. Sodium 136, potassium 3.7, CO2 of 24, BUN 56, and creatinine 10.2. PROBLEMS: 1. End stage renal disease. Patient was on peritoneal dialysis until yesterday. His peritoneal dialysis has been now stopped, and he will get hemodialysis every Tuesday, , and Tuesday. He has a Perm-A-Cath placed already in his left upper chest. 2. Anemia. His anemia did get worse following surgery. Patient will be given Aranesp 200 mg after dialysis, and we will also give him Venofer 100 mg with each dialysis treatment. MTDD
--- NOTE | 2020-01-11 14:10 | IPN ---
DATE: 11/29/2019 SUBJECTIVE: Mr. Mckinney is seen this morning at his bedside. He is currently doing physical therapy in his room. He is due for hemodialysis today, which will be his first hemodialysis since he has been switched to HD. He was on peritoneal dialysis before with last exchange done on Tuesday prior to his transfer to acute rehab floor. Patient denies any dyspnea, chest pain, nausea or vomiting. He is eating much better now. PHYSICAL EXAMINATION: VITAL SIGNS: Temperature 97.4 degrees Fahrenheit, heart rate 68 per minute, respiratory rate 18 per minute, blood pressure 140/70 mmHg and oxygen saturation 98% on room air. HEENT: Head is atraumatic. NECK: Supple and JVD or thyroid enlargement. HEART: Heart sounds are regular. LUNGS: Clear to auscultation. ABDOMEN: Soft and nontender. Peritoneal dialysis catheter is intact. On left upper chest, he has hemodialysis catheter without any signs of infection. EXTREMITIES: No cyanosis or clubbing. Left leg stump is wrapped in dressing. LABORATORY DATA: The patient did not have any new labs done today. PROBLEMS: 1. End-stage renal disease: Patient is temporarily on hemodialysis as he is now in acute rehab where peritoneal dialysis cannot be performed. He will have his first hemodialysis this afternoon. Will not remove any fluid during this first treatment due to prior history of hypotension during hemodialysis. 2. Anemia: He had labs done yesterday, which showed hemoglobin 8.9. He is currently receiving Aranesp once a week and will continue with the same. 3. Hypertension: He has a history of hypotension and now is currently on Midodrine 5 mg t.i.d. Will continue with the same and try not to remove any fluid during his first hemodialysis session and monitor closely 4. Hypokalemia: Patient is now on oral potassium chloride 20 mEq twice a day and electrolytes should be checked again over the next day or two. 5. Peripheral vascular disease: Status post left below the knee amputation. Patient is doing well and is now undergoing acute rehab. [facility]
== END 2019-12-13 14:30 | disposition home health service (06) | DRG 73 ==
LOC: M PM&R 16:26
PROVIDERS: ADMIT Physical Medicine & Rehabilitation; ATTEND Physical Medicine & Rehabilitation
PROC: 5A1D70Z Performance of Urinary Filtration, Intermittent, Less than 6 Hours Per Day (ICD-10-PCS; principal; 2019-12-06)
PROC: 05PY33Z Removal of Infusion Device from Upper Vein, Percutaneous Approach (ICD-10-PCS; 2019-12-13)
DX: G54.6 Phantom limb syndrome with pain (principal); N18.6 End stage renal disease; I50.32 Chronic diastolic (congestive) heart failure; N25.81 Secondary hyperparathyroidism of renal origin; I13.2 Hypertensive heart and chronic kidney disease with heart failure and with stage 5 chronic kidney disease, or end stage renal disease; E87.1 Hypo-osmolality and hyponatremia; I70.261 Atherosclerosis of native arteries of extremities with gangrene, right leg; L97.518 Non-pressure chronic ulcer of other part of right foot with other specified severity; K21.9 Gastro-esophageal reflux disease without esophagitis; D63.1 Anemia in chronic kidney disease; G62.9 Polyneuropathy, unspecified; Z47.81 Encounter for orthopedic aftercare following surgical amputation; L89.612 Pressure ulcer of right heel, stage 2; Z88.8 Allergy status to other drugs, medicaments and biological substances; L89.611 Pressure ulcer of right heel, stage 1; I70.234 Atherosclerosis of native arteries of right leg with ulceration of heel and midfoot; I25.10 Atherosclerotic heart disease of native coronary artery without angina pectoris; E83.39 Other disorders of phosphorus metabolism; I95.89 Other hypotension; Z85.528 Personal history of other malignant neoplasm of kidney; Z90.5 Acquired absence of kidney; Z99.2 Dependence on renal dialysis; Z85.46 Personal history of malignant neoplasm of prostate; Z89.512 Acquired absence of left leg below knee; Z79.82 Long term (current) use of aspirin; Z79.899 Other long term (current) drug therapy; Z88.5 Allergy status to narcotic agent; Z88.6 Allergy status to analgesic agent

== ENCOUNTER 2020-04-23 12:00 | Inpatient (IN) | payer MEDICARE, OTHER ==
[~2020-04-23] VITALS: Ht 172.7 cm; Wt 88.9 kg
[~2020-04-23 12:00] MED LIST changes: +ALBU83IN NEB; +COLC0.6T47 PO; -COLC1TAB13 PO; +ECOT81TA5 PO; +ISOS1TAB35 PO; +ISOS1TAB36 PO; -ISOS30TA4 PO; -ISOS60TA2 PO; +MIRA3350 PO; +MUPI2OI TOP; +NEPR1LIQ2 PO; +NORT10CA2 PO; +SYMB16INH INH
--- NOTE | 2020-05-07 15:34 | HPEPDOC ---
[facility] Medical History & Physical Date of Admission May 23, 2020 Date of Service: May 23, 2020 History and Physical Vascular surgery. Dr. 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 The patient underwent a left BKA in November, and did very well after this. He says all of the chronic pain he had in the left foot is now gone, but that he still has such intense pain in the right foot that he can't go on with it. Plan is to proceed with right below-knee amputation as per Dr. Canseco. 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 REVIEW OF SYSTEMS: As noted in HPI otherwise 10 point review of systems unremarkable. HOME MEDICATIONS: Please see below. PHYSICAL EXAMINATION: Const: Appears medically stable. No signs of apparent distress present. Head/Face: Normal on inspection. ENMT: Tympanic membranes: intact. External nose WNL. Neck: Supple, no carotid bruits present Resp: No wheezing. Clear to auscultation bilaterally. CV: Rate is regular. Rhythm is regular. Abdomen: Bowel sounds are positive. Abdomen is soft, nontender, and nondistended. Lymph: No palpable or visible regional lymphadenopathy. Musculo:Gait steady, distal pulses not palpable right lower extremity, Doppler signals monophasic. Dressing left foot clean dry and intact. Left BKA well- healed. Skin:No rashes or lesions Neuro:Alert and oriented x3, moves all extremities equally, no focal neurologic deficits noted. Psych: Pleasant and cooperative ASSESSMENT/PLAN The patient is a 79-year-old male with end-stage distal atherosclerosis of the yocha dehe artery status post multiple attempts at revascularization, status post left BKA 4 months ago, now requesting a right BKA for painful nonhealing right first toe. Informed consent has been obtained and placed with the chart. Transfusion consent is obtained and placed with the chart. Plan to proceed with right BKA as per Dr. Canseco. Patient is advised not to hold aspirin, but hold Plavix for 4 days prior to the procedure and the day of the procedure. Vital Signs Admission vital signs pending Laboratory Data Labs 24H Admission labs pending Home Medications Scheduled Aspirin (Ecotrin) 81 Mg Tablet.dr, 81 MG PO DAILY Atorvastatin Calcium (Atorvastatin Calcium) 40 Mg Tablet, 40 MG PO QHS Budesonide/Formoterol (Symbicort 160-4.5 Mcg Inhaler) 6 Gm Hfa.aer.ad, 2 PUFF INH BID Cinacalcet HCl (Sensipar) 60 Mg Tablet, 60 MG PO 3XWP Clopidogrel Bisulfate (Clopidogrel) 75 Mg Tablet, 75 MG PO DAILY Docusate Sodium (Colace) 100 Mg Capsule, 100 MG PO DAILY Epoetin Irving (Epogen) 20,000 Unit/1 Ml Vial, 20,000 UNIT INJ ASDIRECTED EVERY 2 WEEKS Midodrine HCl (Midodrine HCl) 5 Mg Tablet, 5 MG PO 0900,1300,1700 hold if your top blood pressure number is greater than 140 Nortriptyline HCl (Nortriptyline HCl) 10 Mg Capsule, 30 MG PO BID@0900,1800 Nut.tx.imp.renal Fxn,Lac-Reduc (Nepro Carb Steady) 237 Ml Liquid, 1 LIQ PO DAILY Omeprazole (Omeprazole) 20 Mg Capsule.dr, 40 MG PO DAILY Sevelamer Carbonate (Renvela) 800 Mg Tablet, 800 MG PO WM Scheduled PRN Albuterol Sulf (Albuterol Sulfate) 2.5 Mg/3 Ml Vial.neb, 1 VIAL NEB Q4HP PRN for wheezing Polyethylene Glycol 3350 (Miralax) 119 Gm Powder, 17 GM PO DAILY PRN for CONSTIPATION dilute in 8 ounces of water or juice Miscellaneous Medications Mupirocin (Mupirocin) 2 % Oint...g., 1 DOSE EXT for daily with dressing changes Allergies Coded Allergies: amlodipine (Verified Allergy, Unknown, 09/07/19) gabapentin (Verified Allergy, Unknown, confusion, 04/09/20) indomethacin (Verified Allergy, Unknown, 09/07/19) nifedipine (Verified Allergy, Unknown, 09/07/19) oxycodone (Unverified Allergy, Unknown, 11/21/19) NSAIDS (Non-Steroidal Anti-Inflamma (Verified Adverse Reaction, Intermediate, RECTAL BLEEDING, 09/07/19) TAKES 81MG ASA AT HOME FINE hydralazine (Verified Adverse Reaction, Mild, ELEVATED BP, 09/07/19) minoxidil (Verified Adverse Reaction, Mild, SWELLING, 11/21/19) Opioids - Morphine Analogues (Verified Adverse Reaction, Unknown, DIALYSIS PT, 09/14/19) epoetin beta (Verified Adverse Reaction, Unknown, 11/22/19) Hyporesponsive A-FIB/CHADSVASC A-FIB History Current/History of A-Fib/PAF?: No Puja Garcia May 07, 2020 15:34
[2020-05-09] MEDS ORDERED: POTA20TA6 PO (10:08)
[2020-05-09] MEDS ORDERED: MIDO10TA PO (10:08)
[2020-05-09] MEDS ORDERED: MIDO5TA PO (10:08)
[2020-05-21] MEDS ORDERED: MAGN400C2 PO (18:17)
[2020-05-23] VITALS (8 sets, daily range): BP systolic 127–158; BP diastolic 67–89
--- OUTSIDE RECORDS SUMMARY | 2020-05-23 08:16 | CCD | Continuity of Care Document ---
Author Author Mauricio ABRAHAM MD Organization Unknown Address [address] [place] [address] [place] [id number] Phone [phone] Care Team Providers Care Preparer Samples And Repairs Name Role Phone Kalyani Mccray AUTM [phone] Problems Description No Information Available Social History Type Date Description Comments Sex Unknown Allergies, Adverse Reactions, Alerts Description No Information Available Medications Description No Information Available Immunizations Description No Information Available Vital Signs Description No Information Available Results Description No Information Available Procedures Date Code Description Status 04/07/2020 27390 ECHO Transthoracic I nc Performance Continuous Electrocardio Mon Completed 04/07/2020 13352 Doppler Echocardiography Color F low Velocity Mapping Completed 04/07/2020 09302 Doppler Echocardiography Complet e Completed 04/03/2020 52908 Catheter Placement In Coronary A rtery Completed 03/31/2020 64288 Echocardiography, Tranthoracic R eal-Time Image Documentation Completed 03/31/2020 93053 Electrocardiogram Interpretation & Report Only Completed 03/30/2020 80625 Electrocardiogram Interpretation & Report Only Completed 02/11/2020 67693 Echocardiography, Tranthoracic R eal-Time Image Documentation Completed Medical Devices Description No Information Available Encounters Type Date Location Provider Dx Diagnosis Office Visit 04/08/2020 4:03p [facility] Cardiology [facility] Dennis martinez MD I35.0 Nonrheumatic aortic (valve) stenosis I73.9 Peripheral vascular disease, unspecified Office Visit 04/07/2020 2:21a [facility] Cardiology [facility] Irvin galan MD N18.6 End stage renal disease I35.0 Nonrheumatic aortic (valve) stenosis Z99.2 Dependence on renal dialysis Office Visit 04/04/2020 2:25a [facility] Cardiology [facility] Irvin galan MD I35.0 Nonrheumatic aortic (valve) stenosis N18.6 End stage renal disease Z99.2 Dependence on renal dialysis Office Visit 04/01/2020 4:42p [facility] Irvin castillo MD J90 Pleural effusion, not elsewhere classified 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 N18.6 End stage renal disease Z99.2 Dependence on renal dialysis 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 Assessments Date Code Description Provider 04/08/2020 I35.0 Nonrheumatic aortic (valve) sten osis Dennis Beatty MD 04/08/2020 I73.9 Peripheral vascular disease, uns pecified Dennis Beatty MD 04/07/2020 I35.8 Other nonrheumatic aortic valve disorders Angel Gomez MD 04/07/2020 N18.6 End stage renal disease Irvin Sung MD 04/07/2020 I35.0 Nonrheumatic aortic (valve) sten estelais Irvin Sung MD 04/07/2020 Z99.2 Dependence on renal dialysis Kenny Sung MD 04/04/2020 I35.0 Nonrheumatic aortic (valve) sten estelais Irvin Sung MD 04/04/2020 N18.6 End stage renal disease Irvin Sung MD 04/04/2020 Z99.2 Dependence on renal dialysis Kenny Sung MD 04/03/2020 I25.10 Atherosclerotic hear t disease of [place] coronary artery without angina pectoris Gopal Abraham MD 04/03/2020 I73.9 Peripheral vascular disease, uns pecified Gopal Abraham MD 04/03/2020 E78.00 Pure hypercholesterolemia, unspe cified Gopal Abraham MD 04/03/2020 J44.9 Chronic obstructive pulmonary di sease, unspecified Gopal Abraham MD 04/03/2020 N18.6 End stage renal disease Gopal Abraham MD 04/03/2020 Z99.2 Dependence on renal dialysis Joey Abraham MD 04/01/2020 J90 Pleural effusion, not elsewhere classified Irvin Sung MD 04/01/2020 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 of both mitr al and tricuspid valves Irvin Sung MD 04/01/2020 N18.6 End stage renal disease Irvin Sung MD 04/01/2020 Z99.2 Dependence on renal dialysis Kenny Sung MD 04/01/2020 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 Irvin Sung MD 03/31/2020 I50.9 Heart failure, unspecified Shon Abraham MD 03/31/2020 R06.02 Shortness of breath Dennis martinez MD 03/31/2020 I13.2 Hyp hrt & chr kdny dis w hrt dashawn l and w stg 5 chr kdny/ESRD Dennis Beatty MD 03/31/2020 I50.23 Acute on chronic systolic (conge stive) heart failure Dennis Beatty MD 03/31/2020 I21.A1 Myocardial infarction type 2 Jose Elias Beatty MD 03/31/2020 N18.6 End stage renal disease Dennis rincon MD 03/31/2020 J18.9 Pneumonia, unspecified organism Dennis Beatty MD 03/31/2020 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 Dennis Beatty MD 03/31/2020 I96 Gangrene, not elsewhere classifi ed Dennis Beatty MD 03/30/2020 R06.02 Shortness of breath Gopal Pink MD 03/30/2020 I13.2 Hyp hrt & chr kdny dis w hrt dashawn l and w stg 5 chr kdny/ESRD Gopal Abraham MD 03/30/2020 I50.23 Acute on chronic systolic (conge stive) heart failure Gopal Abraham MD 03/30/2020 I21.A1 Myocardial infarction type 2 Joey doris Abraham MD 03/30/2020 N18.6 End stage renal disease Gopal Abraham MD 03/30/2020 J18.9 Pneumonia, unspecified organism Goapl Abraham MD 03/30/2020 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
--- OUTSIDE RECORDS SUMMARY | 2020-05-23 08:16 | CCD | Continuity of Care Document ---
Author Author Mauricio BEATTY MD Organization Unknown Address [address] [place] [address], [address] [place] [address] Phone [phone] Care Team Providers Care Communications Tower Climber Name Role Phone Kalyani Mccray AUTM [phone] Problems Description No Information Available Social History Type Date Description Comments Sex Unknown Allergies, Adverse Reactions, Alerts Description No Information Available Medications Description No Information Available Immunizations Description No Information Available Vital Signs Description No Information Available Results Description No Information Available Procedures Date Code Description Status 04/07/2020 43158 ECHO Transthoracic I nc Performance Continuous Electrocardio Mon Completed 04/07/2020 27610 Doppler Echocardiography Color F low Velocity Mapping Completed 04/07/2020 53921 Doppler Echocardiography Complet e Completed 04/03/2020 12552 Catheter Placement In Coronary A rtery Completed 03/31/2020 97919 Echocardiography, Tranthoracic R eal-Time Image Documentation Completed 03/31/2020 59872 Electrocardiogram Interpretation & Report Only Completed 03/30/2020 03202 Electrocardiogram Interpretation & Report Only Completed 02/11/2020 18405 Echocardiography, Tranthoracic R eal-Time Image Documentation Completed Medical Devices Description No Information Available Encounters Type Date Location Provider Dx Diagnosis Office Visit 04/08/2020 4:03p [facility] Cardiology [facility] Dennis martinez MD I35.0 Nonrheumatic aortic (valve) stenosis I73.9 Peripheral vascular disease, unspecified Office Visit 04/07/2020 2:21a [facility] Cardiology [facility] Irvin galan MD N18.6 End stage renal disease I35.0 Nonrheumatic aortic (valve) stenosis Z99.2 Dependence on renal dialysis Office Visit 04/04/2020 2:25a [facility] Cardiology [facility] Irvin glaan MD I35.0 Nonrheumatic aortic (valve) stenosis N18.6 End stage renal disease Z99.2 Dependence on renal dialysis Office Visit 04/01/2020 4:42p [facility] Irvin castillo MD J90 Pleural effusion, not elsewhere classified 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 N18.6 End stage renal disease Z99.2 Dependence on renal dialysis 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 Assessments Date Code Description Provider 04/08/2020 I35.0 Nonrheumatic aortic (valve) sten estelais Dennis Beatty MD 04/08/2020 I73.9 Peripheral vascular [...] 04/03/2020 I25.10 Atherosclerotic hear t disease of [place] coronary artery without angina pectoris Gopal Contreras MD 04/03/2020 I73.9 Peripheral vascular disease, uns pecified Gopal Contreras MD 04/03/2020 E78.00 Pure hypercholesterolemia, unspe cified Gopal Contreras MD 04/03/2020 J44.9 Chronic obstructive pulmonary di sease, unspecified Gopal Contreras MD 04/03/2020 N18.6 End stage renal disease Gopal Contreras MD 04/03/2020 Z99.2 Dependence on renal dialysis Joey Contreras MD 04/01/2020 J90 Pleural effusion, not elsewhere classified Irvin Sung MD 04/01/2020 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 of both mitr al and tricuspid valves Irvin Sung MD 04/01/2020 N18.6 End stage renal disease Irvin Sung MD 04/01/2020 Z99.2 Dependence on renal dialysis Kenny Sung MD 04/01/2020 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 Irvin Sung MD 03/31/2020 I50.9 Heart failure, unspecified Shon Contreras MD 03/31/2020 R06.02 Shortness of breath Dennis [...] and w stg 5 chr kdny/ESRD Gopal Contreras MD 03/30/2020 I50.23 Acute on chronic systolic (conge stive) heart failure Gopal Contreras MD 03/30/2020 I21.A1 Myocardial infarction type 2 Joey doris Contreras MD 03/30/2020 N18.6 End stage renal disease Gopal Contreras MD 03/30/2020 J18.9 Pneumonia, unspecified organism Gopal Contreras MD 03/30/2020 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
--- OUTSIDE RECORDS SUMMARY | 2020-05-23 08:16 | CCD | Continuity of Care Document ---
Author Author Mauricio CANSECO MD Organization Unknown Address [address] [facility], [address] [place] [address] Phone [phone] Care Team Providers Care Social Organization Professor Name Role Phone Shanel Forman M.D. AUTM [phone] Vandana Terry DPGopi AUTM [phone] Problems Active Problems Provider Date Essential hypertension Mauricio Winters M.D. Onset: 7 Type 2 diabetes mellitus Mauricio Winters M.D. Onset: 017 Social History Type Date Description Comments Sex Unknown ETOH Use Denies alcohol use Tobacco Use Start: Unknown End: Unknown Patient is a former smoker 1 PPD FOR 10 YEARS QUIT 1985 Recreational Drug Use Denies Drug Use Allergies, Adverse Reactions, Alerts Active Allergies Reaction Severity Comments Date Indocin Breathing Problems 7 Amlodipine Breathing Problems 7 Norvasc 06/04/2016 Medications Active Medications SIG Qnty Indications Ordering Provide r Date Plavix 75mg Tablets 1 by mouth every day 30tabs Fallon Canseco MD 09/06/2019 Renvela 800mg Tablets 1 tab three times a day after meals Unknown Sensipar 60mg Tablets 1 on Mon, Wed, Fri Unknown Omeprazole 20mg Capsules DR 1 by mouth every day Unknown Aspir-Low 81mg Tablets DR nesbitt Unknown Colace 100mg Capsules 2 tab by mouth twice a day before meal. avoid if having diarrhea. Unk nown Epogen [id number] Solution twice monthly Unknown Tylenol 325mg Tablets 2 tab by mouth every 4-6 hours as needed for pain Unknown Atorvastatin Calcium 40mg Tablets every day Unknown Albuterol Sulfate 0.63mg/3ML Nebul izer 1 vial via nebulizer as needed Unknown Midodrine HCL 5mg Tablets 1 by mouth three times a day if B/p isnt over 140 Unknown Nortriptyline HCL 10mg Capsules 3 po bid Unknown Mupirocin 2% Ointment apply to peritoneal cath site 1-2 times weekly Unknown Nepro Liquid 1 daily Unknown Zioptan 0.0015% Solution One drop in each eye @ bedtime Unknown History Medications Keflex 500mg Capsules 1 by mouth three times a day x 10 days 30caps Z89.512 Fallon Canseco MD 12/18 - 03/05/2020 Immunizations Description No Information Available Vital Signs Date Vital Result Comment 05/19/2020 4:10pm BP Systolic 98 mmHg BP Diastolic 67 mmHg Height 68.5 inches 5'8.50" Weight 160.00 lb BMI (Body Mass Index) 24.0 kg/m2 [place] Body Weight 154 lb Weight 72.576 kg BSA (Body Surface Area) 1.87 m2 03/06/2020 10:17am BP Systolic 104 mmHg BP Diastolic 60 mmHg Height 68.5 inches 5'8.50" Weight 155.00 lb BMI (Body Mass Index) 23.2 kg/m2 [place] Body Weight 154 lb Weight 70.308 kg BSA (Body Surface Area) 1.84 m2 Results Description No Information Available Procedures Date Code Description Status 11/21/2019 72455 Ultrasound Guidance For Vascular Access Requiring Ultrasound Eval Completed 11/21/2019 21973 Insertion Of [place] d Centrally Inserted Central Venous Catheter Completed 11/21/2019 86796 Amputation Below Knee Completed Medical Devices Description No Information Available Encounters Type Date Location Provider Dx Diagnosis Office Visit 03/06/2020 10:00a [facility] Fallon robles MD I70.235 [place] arteries of right leg w ul cer oth prt foot Z89.512 Acquired absence of left leg below knee Office Visit 12/25/2019 1:00p [facility] [place] 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 Athscl [place] arteries of ex tremities w gangrene, left leg N18.6 End stage renal disease Office Visit 12/19/2019 11:45a [facility] [place] Z89.512 Acquired absence of left leg below knee Assessments Date Code Description Provider 03/06/2020 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 Fallon Canseco MD 03/06/2020 Z89.512 Acquired absence of left leg bel ow knee Fallon Canseco MD 12/25/2019 Z89.512 Acquired absence of left leg bel ow knee GAY [place] 12/25/2019 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, left leg GAY [place] 12/25/2019 N18.6 End stage renal disease [place] 12/19/2019 Z89.512 Acquired absence of left leg bel ow knee GAY [place] 11/21/2019 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
--- OUTSIDE RECORDS SUMMARY | 2020-05-23 08:17 | CCD | Continuity of Care Document ---
Author Author Mauricio CANSECO MD Organization Unknown Address [address] [place] [address], [address] [place] [address] Phone [phone] Care Team Providers Care Warp Trucker Name Role Phone Shanel Forman M.D. AUTM [phone] Vandana Terry DPM AUTM [phone] Problems Active Problems Provider Date Essential hypertension [...] Wed, Fri Unknown Omeprazole 20mg Capsules DR Sanchez by mouth every day Unknown Aspir-Low 81mg Tablets DR nesbitt Unknown Colace 100mg Capsules 2 tab by mouth twice a day before meal. avoid if having diarrhea. Unk nown Epogen 65319Sfoc/ML Solution twice monthly Unknown Tylenol 325mg Tablets [...] weekly Unknown Nepro Liquid 1 daily Unknown History Medications Keflex 500mg Capsules 1 by mouth three times a day x 10 days 30caps Z89.512 Fallon Canseco MD 12/18 - 03/05/2020 Immunizations Description No Information Available Vital Signs Date Vital Result Comment 03/06/2020 10:17am BP Systolic 104 mmHg BP Diastolic 60 mmHg Height 68.5 inches 5'8.50" Weight 155.00 lb BMI (Body Mass Index) 23.2 kg/m2 [place] Body Weight 154 lb Weight 70.308 kg BSA (Body Surface Area) 1.84 m2 12/25/2019 1:46pm BP Systolic 88 mmHg BP Diastolic 50 mmHg Height 68.5 inches 5'8.50" [place] Body Weight 154 lb Results Test Acquired Date Facility Test Result H/L Range Note Complete Blood Count 09/14/2019 [facility] enter Main Lab [address] [place] [address] [phone] White Blood Count 8.9 10 Normal 4.0-10.0 Red Blood Count 3.62 10 Low 4.30-6.10 Hemoglobin 11.7 g/dL Low 13.5-17.5 Hematocrit 34.2 % Low 42.0-52.0 Mean Corpuscular Volume 94.5 fl Normal 80.0-96.0 Mean Corpuscular Hemoglobin 32.3 pg Normal 27.0-33.0 Mean Corpuscular HGB Conc 34.2 g/dL Normal 32.0-36.5 Red Cell Distribution Width 15.4 % High 11.5-14.5 Platelet Count, Automated 304 10 Normal 150-450 Nucleated Red Blood Cell % 0.0 % Normal 0-0 PT & Aptt 09/14/2019 [facility] nter Main Lab [address] [place] [address] [phone] Prothrombin Time 14.2 seconds High 11.8-14.0 Inr 1.13 Normal 1 Partial Thromboplastin Time 38.5 seconds High 25.0-38.4 Type & Screen -Incl Blood Type,Laure[place],AB SC 09/14/2019 [facility] Main Lab [address] [place] [address] [phone] Blood Type O POSITIVE Normal AB Screen (Indirect Josefa)Vis NEGATIVE Normal Basic Metabolic Profile 09/14/2019 [facility] Main Lab [address] [place] [address] [phone] Glucose, Fasting 99 mg/dL Normal 70-100 Blood Urea Nitrogen 33 mg/dL High 7-18 Creatinine For GFR 9.94 mg/dL Critical high 0.70-1.30 Glomerular Filtration Rate 6.6 Low >42 2 Sodium Level 133 mEq/L Low 136-145 Potassium Serum 3.5 mEq/L Normal 3.5-5.1 Chloride Level 95 mEq/L Low 98-107 Carbon Dioxide Level 26 mEq/L Normal 21-32 Anion Gap 12 mEq/L Normal 8-16 Calcium Level 9.1 mg/dL Normal 8.8-10.2 1 THERAPUTIC HUMAN INR VALUES INDICATIONS NORMAL RANGES PROPHYLAXIS/TREATMENT OF: VENOUS THROMBOSIS 2.0-3.0 PULMONARY EMBOLISM 2.0-3.0 PREVENTION OF SYSTEMIC EMBOLISM FROM: TISSUE HEART VALVES 2.0-3.0 ACUTE MYOCARDIAL INFARCTION 2.0-3.0 VALVULAR HEART DISEASE 2.0-3.0 ATRIAL FIBRILLATION 2.0-3.0 MECHANICAL VALVES(HIGH RISK) 2.5-3.5 RECURRENT MYOCARDIAL INFARCTION 2.5-3.5 2 Units are mL/min/1.73 m2 Chronic Kidney Disease Staging per NKF: Stage I & II GFR >=60 Normal to Mildly Decreased Stage III GFR 30-59 Moderately Decreased Stage IV GFR 15-29 Severely Decreased Stage V GFR <15 Very Little GFR Left ESRD GFR <15 on MATERIALS TECH Procedures Date Code Description Status 11/21/2019 93317 Ultrasound Guidance For Vascular Access Requiring Ultrasound Eval Completed 11/21/2019 04281 Insertion Of [place] d Centrally Inserted Central Venous Catheter Completed 11/21/2019 12198 Amputation Below Knee Completed 09/14/2019 17983 Amputation, Toe Matatarsophalang eal Joint Completed Medical Devices Description No Information Available Encounters Type Date Location Provider Dx Diagnosis Office Visit 12/25/2019 1:00p [facility] [place] [place] 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 [facility] [place] arteries of ex tremities w gangrene, left leg N18.6 End stage renal disease Office Visit 12/19/2019 11:45a [facility] [place] Z89.512 Acquired absence of left leg below knee Office Visit 10/25/2019 9:45a [facility] Fallon robles MD I70.245 [place] [place] arteries of left leg w ulc eration oth prt foot Z89.412 Acquired absence of left gre at toe Z47.81 Encounter for orthopedic aft ercare following surgical amp Office Visit 10/11/2019 11:45a [facility] Fallon robles MD Z47.81 Encounter for orthopedic aftercare follo wing surgical amp Z89.412 Acquired absence of left gre at toe Office Visit 09/12/2019 2:00p [facility] [place] I70.245 [facility] [place] arteries of left leg w ulc eration oth prt foot Assessments Date Code Description Provider 12/25/2019 Z89.512 Acquired absence of left leg [...] End stage renal disease Fallon bridges MD 10/25/2019 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 Fallon Canseco MD 10/25/2019 Z89.412 Acquired absence of left great t oe Fallon Canseco MD 10/25/2019 Z47.81 Encounter for orthop edic aftercare following surgical amputation Fallon Canseco MD 10/11/2019 Z47.81 Encounter for orthop edic aftercare following surgical amputation Fallon Canseco MD 10/11/2019 Z89.412 Acquired absence of left great t oe Fallon Canseco MD 09/14/2019 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
--- OUTSIDE RECORDS SUMMARY | 2020-05-23 08:17 | CCD | Continuity of Care Document ---
Author Author Mauricio COON MD Organization Unknown Address [address] [place] [address] Phone [phone] Care Team Providers Care Data Technical Lead Name Role Phone Kalyani MccrayM [phone] Problems Description No Information Available Social History Type Date Description Comments Sex Unknown Allergies, Adverse Reactions, Alerts Description No Information Available Medications Description No Information Available Immunizations Description No Information Available Vital Signs Description No Information Available Results Description No Information Available Procedures Date Code Description Status 02/11/2020 87243 Echocardiography, Tranthoracic R eal-Time Image Documentation Completed Medical Devices Description No Information Available Encounters Type Date Location Provider Dx Diagnosis Office Visit 04/04/2020 2:25a [facility] Irvin galan MD I35.0 Nonrheumatic aortic (valve) stenosis N18.6 End stage renal disease Z99.2 Dependence on renal dialysis Assessments Date Code Description Provider 04/04/2020 I35.0 Nonrheumatic aortic (valve) sten osis Irvin Coon MD 04/04/2020 N18.6 End stage renal disease Irvin Coon MD 04/04/2020 Z99.2 Dependence on renal dialysis Kenny Coon MD 02/11/2020 R06.02 Shortness of breath Angel mahoney MD Plan of Treatment No Information Available Functional Status Description No Information Available Mental Status Description No Information Available Referrals Description No Information Available
--- OUTSIDE RECORDS SUMMARY | 2020-05-23 08:17 | CCD | Continuity of Care Document ---
Author Author Mauricio BUENROSTRO MD Organization Unknown Address [address] [place] [address], [place] [address] Phone [phone] Care Team Providers Care Manager Environmental Name Role Phone Adrianne Fletcher MD AUTM [phone] Derek Forman MD AUTM [phone] Fallon Canseco MD AUTM [phone] Problems Active Problems Provider Date Old myocardial infarction Kendrick Buenrostro MD Onset: 2016 Chronic ischemic heart disease Kendrick Buenrostro MD Onset: 0 10/08/2016 Chronic combined systolic and diastolic heart failure Kendrick Buenrostro MD Onset: 10/08/2016 Essential hypertension Kendrick Buenrostro MD Onset: 7 Electrocardiogram abnormal Kendrick Buenrostro MD Onset: 10/08 Atherosclerotic heart disease of [place] coronary arter y without angina pectoris Kendrick Buenrostro MD Onset: 10/08/2016 Hypertensive heart disease with congestive heart failure Hiro july Buenrostro MD Onset: 10/08/2016 First degree atrioventricular block Kendrick Buenrostro MD Ons et: 10/08/2016 Obesity Kendrick Buenrostro MD Onset: 10/08/2016 Dietary management surveillance Kendrick Buenrostro MD Onset: 10/08/2016 Premature beats [facility] Onset: 02/09/2019 Paroxysmal ventricular tachycardia [facility] Onse t: 02/09/2019 Social History Type Date Description Comments Sex Unknown ETOH Use Does not consume alcohol Tobacco Use Start: Unknown End: Unknown Patient is a former smoker Quit 45 years ago Smoking Status Reviewed: 02/21/20 Patient is a former smoker Qu it 45 years ago Exercise Type/Frequency Physical Therapy some li mited at home exercises Exercise Limitations Fatigue Exercise Limitations Orthopedic Problem right fo ot wounds and necrotic tissue in toe Allergies, Adverse Reactions, Alerts Active Allergies Reaction Severity Comments Date Indocin breating 10/08/2016 Hydralazine drop in B/P 10/08/2016 Nifedipine Breathing issues 10/08/2016 Morphine and Related dialysis patient Amlodipine 08/27/2019 NSAIDs rectal bleeding 08/27/2019 Minoxidil swelling 08/27/2019 Felodipine 02/20/2020 Lisinopril 02/20/2020 Metoprolol 02/20/2020 Sildenafil 02/20/2020 Medications Active Medications SIG Qnty Indications Ordering Provide r Date Latanoprost 0.005% Solution 1 drop both eyes every night at bedtime Hardik Issa MD 02/20/2020 Nortriptyline HCL 10mg Capsules 3 by mouth twice daily Hardik Issa MD 02/20/2020 Sensipar 30mg Tablets 1 by mouth three times weekly Derek Forman MD 02/20/2020 Cephalexin 500mg Tablets 1 by mouth twice daily x 7 days Hardik Issa MD 02/20/2020 Plavix 75mg Tablets 1 by mouth every day Unknown 02/20/2020 Midodrine HCL 5mg Tablets 3 tablet by mouth three times a day with meals as needed for low BP Unknown 02/20/2020 Nepro/Carbsteady Liquid 1 can once or twice daily Derek Forman MD 02/20/2020 Potassium Chloride ER 20Meq Tablet s ER 1 by mouth every day Derek Forman MD 0 Povidone-Iodine 10% Solution apply liberal amount topically as needed for infection Unknown 02/20/2020 Atorvastatin Calcium 40mg Tablets 1 by mouth every night at bedtime Unknown Multi For Him 50+ Tablets 1 by mouth every day Derek Forman MD 06/10/2019 Colace 100mg Capsules 1 by mouth twice a day Derek Forman MD 06/10/2019 Renvela 800mg Tablets 1 by mouth two or three times a day with meals Derek Forman MD 06/10/[address] 1 by mouth every day Derek Forman MD 06/10/2019 Albuterol Sulfate 1.25mg/3ML Nebul izer as needed Unknown 01/15/2019 Heparin Sodium Lock Flush 100Unit/ML Solution infused at dialysis per orders Unknown 01/15/2019 Epogen 2000Unit/ML Solution infused at dialysis per orders Unknown 10/12/2018 Proair HFA 108(90Base) mcg/Act Aer osol 2 puffs by mouth as needed Unknown 019 Spiriva Handihaler 18mcg Capsules 1 puff daily Kendrick Buenrostro MD 09/20/2016 Aspir-Low 81mg Tablets DR 1 tab by mouth every day Kendrick Buenrostro MD 09/20/2016 Immunizations Description No Information Available Vital Signs Date Vital Result Comment 02/21/2020 1:29pm Home Weight 152lb Height 68 inches 5'8" Heart Rate 86 /min BP Systolic Sitting 148 mmHg large cuff, Ra BP Diastolic Sitting 80 mmHg large cuff, Ra 08/28/2019 1:40pm Weight 174.00 lb Home Weight 173lb Height 68 inches 5'8" BMI (Body Mass Index) 26.5 kg/m2 Heart Rate 87 /min BP Systolic Sitting 128 mmHg adult cuff, Ra BP Diastolic Sitting 56 mmHg adult cuff, Ra Results Test Acquired Date Facility Test Result H/L Range Note CMP 02/03/2020 [facility])- - Albumin Serum/Plasma 3.0 Alt - SGPT 18 Calcium Ser/Plasma Mass/Vol 9.3 Carbon Dioxide Ser/Plasm 24 Chloride Serum/Plasma 90 Alkaline Phosphatase 96 Potassium 4.1 Protein Total 5.8 Sodium 131 Ast - Sgot 18 BUN - Urea Nitrogen 35 Glucose 105 65-110 Creatinine For GFR 9.9 Procedures Date Code Description Status 02/21/2020 97142 ECG 12-Lead Completed Medical Devices Description No Information Available Encounters Type Date Location Provider Dx Diagnosis Office Visit 02/21/2020 1:15p Main Office [facility] Z01.8 10 Encounter for preprocedural cardiovascular examination I11.0 Hypertensive heart disease w ith heart failure I50.42 Chronic combined systolic an d diastolic hrt fail I49.3 Ventricular premature depola rization I47.2 Ventricular tachycardia I25.10 [facility] heart disease of [place] coronary artery w/o ang pctrs I25.5 Ischemic cardiomyopathy R94.31 Abnormal electrocardiogram [ ECG] [EKG] Z71.3 Dietary counseling and surve illance Office Visit 01/31/2020 10:30a Main Office Kendrick Buenrostro MD I11.0 Hypertensive heart disease with heart failure I50.42 Chronic combined systolic an d diastolic hrt fail I49.3 Ventricular premature depola rization I47.2 Ventricular tachycardia Assessments Date Code Description Provider 02/21/2020 Z01.810 Encounter for preprocedural card iovascular examination [facility] 02/21/2020 I11.0 Hypertensive heart disease with heart failure [facility] 02/21/2020 I50.42 Chronic combined systolic (conge stive) and diastolic (conges [facility] 02/21/2020 I49.3 Ventricular premature depolariza tion [facility] 02/21/2020 I47.2 Ventricular tachycardia [facility] 02/21/2020 I25.10 Atherosclerotic heart disease of [place] coronary artery with [facility] 02/21/2020 I25.5 Ischemic cardiomyopathy [facility] 02/21/2020 R94.31 Abnormal electrocardiogram [ECG] [EKG] [facility] 02/21/2020 Z71.3 Dietary counseling and surveilla nce [facility] 01/31/2020 I11.0 Hypertensive heart disease with heart failure Kendrick Buenrostro MD 01/31/2020 I50.42 Chronic combined systolic (conge stive) and diastolic (conges Kendrick Buenrostro MD 01/31/2020 I49.3 Ventricular premature depolariza tion Kendrick Buenrostro MD 01/31/2020 I47.2 Ventricular tachycardia Kednrick Buenrostro MD Plan of Treatment Future Appointment(s):* 03/12/2020 10:00 am - Cardiac PET at Main Office * 08/20/2020 2:30 pm - [facility] at Main Office 02/21/2020 - [facility] [place]* Z01.810 Encounter for preprocedural cardiovascular examination* Recommendations:* [place] [employer]/[place] [employer] Clinical Predictors: I. Major (> 5%): No recent DVT, acute CT, known critical aortic or mitral stenosis, or decompensated heart failure. II. Intermediate (1-5%): + history of prior CT, CHF chronic kidney disease. III. Minor predictors (<1%): + abnormal EKG, rhythm disturbance, sedentary lifestyle or advanced age. [facility] for his right leg. Patient is hesitant and has an appointment with Dr. Canseco on March 06 for second opinion. Patient needs a stress test before being cleared for surgery. This will be scheduled in our office today for a later date. Please feel free to contact us should you have any questions or need any further information. * I11.0 Hypertensive heart disease with heart failure * I50.42 Chronic combined systolic (congestive) and diastolic (conges * I49.3 Ventricular premature depolarization* Recommendations:* Please call the office with any sustained tachycardia or palpitations. * I47.2 Ventricular tachycardia * I25.10 Atherosclerotic heart disease of [place] coronary artery with* New Xrays:* NM Heart Myocardial Perfusion Spect Multiple Studies, Scheduled: 03/03/20 * Recommendations:* Please schedule stress test. * I25.5 Ischemic cardiomyopathy * R94.31 Abnormal electrocardiogram [ECG] [EKG]* Recommendations:* No significant change. No further workup required. * Z71.3 Dietary counseling and surveillance* Recommendations:* Recommend adopting a more whole foods, plant-based diet in addition to moderate exercise a minimum of 30 minutes 6 days a week. In order to optimize cardiovascular health please be conscious of processed foods, alcohol (no more than two dr inks a day for men and one drink a day for women), salt (<2000 mg/d), oils, saturated fat/animal products, and highly refined carbohydrates such as breads, pastas, and sweets. * All * Follow up:* Follow up in 6 months. Functional Status Functional Condition Comment Date Status Requires assistance with dressing Active Independent with feeding Active Independent with grooming Active Independent with bathing Active Dependent with ambulating using wheelchair Act oziel Requires assistance with toileting Active Dependent with standing Active Mental Status Description No Information Available Referrals Description No Information Available
--- OUTSIDE RECORDS SUMMARY | 2020-05-23 08:17 | CCD | Continuity of Care Document ---
Author Author Mauricio COON MD Organization Unknown Address [address] [place] [address] [place] [address] Phone [phone] Care Team Providers Care Captain Waiter/Waitress Name Role Phone Kalyani Mccray AUTM [phone] Problems Description No Information Available Social History Type Date Description Comments Sex Unknown Allergies, Adverse Reactions, Alerts Description No Information Available Medications Description No Information Available Immunizations Description No Information Available Vital Signs Description No Information Available Results Description No Information Available Procedures Date Code Description Status 04/07/2020 65202 ECHO Transthoracic I nc Performance Continuous Electrocardio Mon Completed 04/07/2020 96774 Doppler Echocardiography Color F low Velocity Mapping Completed 04/07/2020 23502 Doppler Echocardiography Complet e Completed 04/03/2020 53435 Catheter Placement In Coronary A rtery Completed 03/31/2020 51692 Echocardiography, Tranthoracic R eal-Time Image Documentation Completed 02/11/2020 53616 Echocardiography, Tranthoracic R eal-Time Image Documentation Completed Medical Devices Description No Information Available Encounters Type Date Location Provider Dx Diagnosis Office Visit 04/08/2020 4:03p [facility] Cardiology [facility] Dennis martinez MD I35.0 Nonrheumatic aortic (valve) stenosis I73.9 Peripheral vascular disease, unspecified Office Visit 04/07/2020 2:21a [facility] Cardiology [facility] Irvin galan MD N18.6 End stage renal disease I35.0 Nonrheumatic aortic (valve) stenosis Z99.2 Dependence on renal dialysis Office Visit 04/04/2020 2:25a [facility] Cardiology [facility] Irvin galan MD I35.0 Nonrheumatic aortic (valve) stenosis N18.6 End stage renal disease Z99.2 Dependence on renal dialysis Office Visit 04/01/2020 4:42p [facility] Cardiology 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 N18.6 End stage renal disease Z99.2 Dependence on renal dialysis Z79.82 care home (current) use of a spirin Assessments Date Code Description Provider 04/08/2020 I35.0 Nonrheumatic aortic (valve) sten estelais Dennis Beatty MD 04/08/2020 I73.9 Peripheral vascular disease, uns pecified Dennis Beatty MD 04/07/2020 I35.8 Other nonrheumatic aortic valve disorders Angel Gomez MD 04/07/2020 N18.6 End stage renal disease Irvin Coon MD 04/07/2020 I35.0 Nonrheumatic aortic (valve) sten estelais Irvin Coon MD 04/07/2020 Z99.2 Dependence on renal dialysis Kenny Coon MD 04/04/2020 I35.0 Nonrheumatic aortic (valve) sten osis Irvin Coon MD 04/04/2020 N18.6 End stage renal disease Irvin Coon MD 04/04/2020 Z99.2 Dependence on renal dialysis Kenny Coon MD 04/03/2020 I25.10 Atherosclerotic hear t disease of [place] coronary artery without angina pectoris Gopal Contreras MD 04/03/2020 I73.9 Peripheral vascular disease, uns pecified Gopal Contreras MD 04/03/2020 E78.00 Pure hypercholesterolemia, unspe cified Gopal Contreras MD 04/03/2020 J44.9 Chronic obstructive pulmonary di sease, unspecified Gopal Contreras MD 04/03/2020 N18.6 End stage renal disease Gopal Contreras MD 04/03/2020 Z99.2 Dependence on renal dialysis Joey doris Contreras MD 04/01/2020 J90 Pleural effusion, not elsewhere classified Irvin Coon MD 04/01/2020 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
--- OUTSIDE RECORDS SUMMARY | 2020-05-23 08:17 | CCD | Continuity of Care Document ---
Author Author Migue HOPKINS Mauricio Fair Organization Unknown Address [address] [place] [address], [place] [address] Phone [phone] Care Team Providers Care Division Road Supervisor Name Role Phone Adrianne Fletcher MD AUTM [phone] Derek Forman MD AUTM [phone] Fallon Canseco MD AUTM [phone] Problems Active Problems Provider Date Old myocardial infarction Kendrick Buenrostro MD Onset: 2016 Chronic ischemic heart disease Kendrick Buenrostro MD Onset: 0 10/08/2016 Chronic combined systolic and diastolic heart failure Kendrick Buenrostro MD Onset: 10/08/2016 Essential hypertension Kendrick Buenrostro MD Onset: 7 Electrocardiogram abnormal Kendrick Buenrostro MD Onset: 10/08 Atherosclerotic heart disease of [place] coronary arter y without angina pectoris Kendrick [...] 9.9 Procedures Date Code Description Status 02/21/2020 81218 ECG 12-Lead Completed Medical Devices Description No [...] Alves 02/21/2020 I25.10 Atherosclerotic heart disease of [place] coronary artery with [facility] 02/21/2020 I25.5 [...] Kendrick Buenrostro MD 01/31/2020 I47.2 Ventricular tachycardia Kendrick Buenrostro MD Plan of Treatment Future Appointment(s):* 08/20/2020 2:30 pm - [facility] at Main Office 02/21/2020 - [facility]* Z01.810 Encounter for preprocedural cardiovascular examination* Recommendations:* [place] Heart Association/[place] College of Cardiology Clinical Predictors: I. Major (> 5%): No recent DVT, acute MT, known critical aortic or mitral stenosis, or decompensated heart failure. II. Intermediate (1-5%): + history of prior MT, CHF chronic kidney disease. III. Minor predictors [...] tachycardia * I25.10 Atherosclerotic heart disease of [place] coronary artery with* New Xrays:* NM Heart [...]
--- OUTSIDE RECORDS SUMMARY | 2020-05-23 08:17 | CCD | Continuity of Care Document ---
Author Author Mauricio COON MD Organization Unknown Address [address] [place] [address] Phone [phone] Care Team Providers Care Disc Pad Plate Filler Name Role Phone Kalyani Mccray AUTM [phone] Problems Description No Information Available Social History Type Date Description Comments Sex Unknown Allergies, Adverse Reactions, Alerts Description No Information Available Medications Description No Information Available Immunizations Description No Information Available Vital Signs Description No Information Available Results Description No Information Available Procedures Date Code Description Status 04/07/2020 30598 ECHO Transthoracic I nc Performance Continuous Electrocardio Mon Completed 04/07/2020 78094 Doppler Echocardiography Color F low Velocity Mapping Completed 04/07/2020 90557 Doppler Echocardiography Complet e Completed 04/03/2020 67144 Catheter Placement In Coronary A rtery Completed 03/31/2020 93952 Echocardiography, Tranthoracic R eal-Time Image Documentation Completed 02/11/2020 19685 Echocardiography, Tranthoracic R eal-Time Image Documentation Completed Medical Devices Description No Information Available Encounters Type Date Location Provider Dx Diagnosis Office Visit 04/07/2020 2:21a [facility] Irvin galan MD N18.6 End stage renal disease I35.0 Nonrheumatic aortic (valve) stenosis Z99.2 Dependence on renal dialysis Office Visit 04/04/2020 2:25a [facility] Irvin galan MD I35.0 Nonrheumatic aortic (valve) stenosis N18.6 End stage renal disease Z99.2 Dependence on renal dialysis Assessments Date Code Description Provider 04/07/2020 I35.8 Other nonrheumatic aortic valve disorders Angel Gomez MD 04/07/2020 N18.6 End stage renal disease Irvin Coon MD 04/07/2020 I35.0 Nonrheumatic aortic (valve) sten osis Irvin Coon MD 04/07/2020 Z99.2 Dependence on renal dialysis Kenny Coon MD 04/04/2020 I35.0 Nonrheumatic aortic (valve) sten estelais Irvin Coon MD 04/04/2020 N18.6 End stage renal disease Irvin Coon MD 04/04/2020 Z99.2 Dependence on renal dialysis Kenny Coon MD 04/03/2020 I25.10 Atherosclerotic hear t disease of [place] coronary artery without angina pectoris Gopal Contreras MD 04/03/2020 I73.9 Peripheral vascular disease, uns pecified Gopal Contreras MD 04/03/2020 E78.00 Pure hypercholesterolemia, unspe cified Gopal Contreras MD 04/03/2020 J44.9 Chronic obstructive pulmonary di sease, unspecified Gopal Contreras MD 04/03/2020 N18.6 End stage renal disease Gopal Contreras MD 04/03/2020 Z99.2 Dependence on renal dialysis Joey Contreras MD 03/31/2020 I50.9 Heart failure, unspecified Shon Contreras MD 02/11/2020 R06.02 Shortness of breath Angel mahoney MD Plan of Treatment No Information Available Functional Status Description No Information Available Mental Status Description No Information Available Referrals Description No Information Available
--- OUTSIDE RECORDS SUMMARY | 2020-05-23 08:17 | CCD | Continuity of Care Document ---
Author Author Cost Control Supervisor, Mauricio System Organization Unknown Address Unknown Phone Unavailable Care Team Providers Care Residential Construction Instructor Name Role Phone Laura Espinosa MD Unavailable Problems No Problem Information Available Allergies and Adverse Reactions No Allergy Information Available Medications No Medication Information Available Social History No Social History Information Available Tobacco smoking consumption unknown Male Results No Known Results No Result Information Available Vital Signs No Vital Observation Information Available Advance Directives HIPAA - Patient specified Unknown. Payers Medicare [place] Group Number: NONE [address] [facility] [id number] [place] tel: [facility] Number: NONE [address] [facility] [id number] [place] tel: Mauricio Mckinney [address] [place] [address] [place] tel:
--- OUTSIDE RECORDS SUMMARY | 2020-05-23 08:17 | CCD | Continuity of Care Document ---
Author Author Mauricio BEATTY MD Organization Unknown Address [address] [place], [place] [address], [address] [place] [address] Phone [phone] Care Team Providers Care Air Quality Technician Name Role Phone Kalyani Mccray AUTM [phone] Problems Description No Information Available Social History Type Date Description Comments Sex Unknown Allergies, Adverse Reactions, Alerts Description No Information Available Medications Description No Information Available Immunizations Description No Information Available Vital Signs Description No Information Available Results Description No Information Available Procedures Date Code Description Status 04/07/2020 29991 ECHO Transthoracic I nc Performance Continuous Electrocardio Mon Completed 04/07/2020 10262 Doppler Echocardiography Color F low Velocity Mapping Completed 04/07/2020 12106 Doppler Echocardiography Complet e Completed 04/03/2020 27030 Catheter Placement In Coronary A rtery Completed 03/31/2020 03265 Echocardiography, Tranthoracic R eal-Time Image Documentation Completed 02/11/2020 15813 Echocardiography, Tranthoracic R eal-Time Image Documentation Completed Medical Devices Description No Information Available Encounters Type Date Location Provider Dx Diagnosis Office Visit 04/08/2020 4:03p [facility] Cardiology [facility] Dennis martinez MD I35.0 Nonrheumatic aortic (valve) stenosis I73.9 Peripheral vascular disease, unspecified Office Visit 04/07/2020 2:21a [facility] Cardiology [facility] Irvin galan MD N18.6 End stage renal disease I35.0 Nonrheumatic aortic (valve) stenosis Z99.2 Dependence on renal dialysis Office Visit 04/04/2020 2:25a [facility] Cardiology [facility] Irvin galan MD I35.0 Nonrheumatic aortic (valve) stenosis N18.6 End stage renal disease Z99.2 Dependence on renal dialysis Assessments Date Code Description Provider 04/08/2020 I35.0 Nonrheumatic aortic (valve) sten estelais Dennis Beatty MD 04/08/2020 I73.9 Peripheral vascular disease, uns pecified Dennis Beatty MD 04/07/2020 I35.8 Other nonrheumatic aortic valve disorders Angel Gomez MD 04/07/2020 N18.6 End stage renal disease Irvin Sung MD 04/07/2020 I35.0 Nonrheumatic aortic (valve) sten osis Irvin Sugn MD 04/07/2020 Z99.2 Dependence on renal dialysis Kenny Sung MD 04/04/2020 I35.0 Nonrheumatic aortic (valve) sten estelais Irvin Sung MD 04/04/2020 N18.6 End stage renal disease Irvin Sung MD 04/04/2020 Z99.2 Dependence on renal dialysis Kenny Sung MD 04/03/2020 I25.10 Atherosclerotic hear t disease of [place] coronary artery without angina pectoris Gopal Contreras [...]
--- OUTSIDE RECORDS SUMMARY | 2020-05-23 08:17 | CCD | Continuity of Care Document ---
Author Author Mauricio ABRAHAM MD Organization Unknown Address [address] [place] [address] [place] [address] Phone [phone] Care Team Providers Care Printed Circuit Boards Pinner Name Role Phone Kalyani Mccray AUTM [phone] Problems Description No Information Available Social History Type Date Description Comments Sex Unknown Allergies, Adverse Reactions, Alerts Description No Information Available Medications Description No Information Available Immunizations Description No Information Available Vital Signs Description No Information Available Results Description No Information Available Procedures Date Code Description Status 04/07/2020 48280 ECHO Transthoracic I nc Performance Continuous Electrocardio Mon Completed 04/07/2020 55534 Doppler Echocardiography Color F low Velocity Mapping Completed 04/07/2020 82819 Doppler Echocardiography Complet e Completed 04/03/2020 36175 Catheter Placement In Coronary A rtery Completed 03/31/2020 67512 Echocardiography, Tranthoracic R eal-Time Image Documentation Completed 02/11/2020 23316 Echocardiography, Tranthoracic R eal-Time Image Documentation Completed Medical Devices Description No Information Available Encounters Type Date Location Provider Dx Diagnosis Office Visit 04/07/2020 2:21a [facility] Irvin galan MD N18.6 End stage renal disease I35.0 Nonrheumatic aortic (valve) stenosis Z99.2 Dependence on renal dialysis Office Visit 04/04/2020 2:25a [facility] Irvin galan MD I35.0 Nonrheumatic aortic (valve) stenosis N18.6 End stage renal disease Z99.2 Dependence on renal dialysis Assessments Date Code Description Provider 04/07/2020 I35.8 Other nonrheumatic aortic valve disorders Angel Gomez MD 04/07/2020 N18.6 End stage renal disease Irvin Sung MD 04/07/2020 I35.0 Nonrheumatic aortic (valve) sten osis Irvin Sung MD 04/07/2020 Z99.2 Dependence on renal dialysis Kenny Sung MD 04/04/2020 I35.0 Nonrheumatic aortic (valve) sten estelais Irvin Sung MD 04/04/2020 N18.6 End stage renal disease Irvin Sung MD 04/04/2020 Z99.2 Dependence on renal dialysis Kenny Sung MD 04/03/2020 I25.10 Atherosclerotic hear t disease of [place] coronary artery without angina pectoris Gopal Abraham MD 04/03/2020 I73.9 Peripheral vascular disease, uns pecified Gopal Abraham MD 04/03/2020 E78.00 Pure hypercholesterolemia, unspe cified Gopal Abraham MD 04/03/2020 J44.9 Chronic obstructive pulmonary di sease, unspecified Gopal Abraham MD 04/03/2020 N18.6 End stage renal disease Gopal Abraham MD 04/03/2020 Z99.2 Dependence on renal dialysis Joey Abraham MD 03/31/2020 I50.9 Heart failure, unspecified Shon Abraham MD 02/11/2020 R06.02 Shortness of breath Angel mahoney MD Plan of Treatment No Information Available Functional Status Description No Information Available Mental Status Description No Information Available Referrals Description No Information Available
--- OUTSIDE RECORDS SUMMARY | 2020-05-23 08:20 | CCD ---
Author Author [facility] Organization [facility] Address Unknown Phone Unavailable Care Team Providers Care Convention Planner Name Role Phone Gopi BEATTY MD Unavailable Unavailable Gopi BEATTY MD Unavailable Unavailable Gopi BEATTY MD Unavailable Unavailable Gopi BEATTY MD Unavailable Unavailable Gopi BEATTY MD Unavailable Unavailable Gopi BEATTY MD Unavailable Unavailable Gopi BEATTY MD Unavailable Unavailable Gopi BEATTY MD Unavailable Unavailable Gopi BEATTY MD Unavailable Unavailable Gopi BEATTY MD Unavailable Unavailable Gopi BEATTY MD Unavailable Unavailable Gopi BEATTY MD Unavailable Unavailable Gopi BEATTY MD Unavailable Unavailable Gopi BEATTY MD Unavailable Unavailable Gopi BEATTY MD Unavailable Unavailable Gopi BEATTY MD Unavailable Unavailable Gopi BEATTY MD Unavailable Unavailable Gopi BEATTY MD Unavailable Unavailable Gopi BEATTY MD Unavailable Unavailable Gopi BEATTY MD Unavailable Unavailable Gopi BEATTY MD Unavailable Unavailable Gopi BEATTY MD Unavailable Unavailable Gopi BEATTY MD Unavailable Unavailable Gopi BEATTY MD Unavailable Unavailable Gopi BEATTY MD Unavailable Unavailable Gopi BEATTY MD Unavailable Unavailable Gopi BEATTY MD Unavailable Unavailable Gopi BEATTY MD Unavailable Unavailable Gopi BEATTY MD Unavailable Unavailable Gopi BEATTY MD Unavailable Unavailable Gopi BEATTY MD Unavailable Unavailable Gopi BEATTY MD Unavailable Unavailable Gopi BEATTY MD Unavailable Unavailable Gopi BEATTY MD Unavailable Unavailable Gopi BEATTY MD Unavailable Unavailable Gopi BEATTY MD Unavailable Unavailable Gopi BEATTY MD Unavailable Unavailable Gopi BEATTY MD Unavailable Unavailable Gopi BEATTY MD Unavailable Unavailable Gopi BEATTY MD Unavailable Unavailable Gopi BEATTY MD Unavailable Unavailable ELISHA CARRASCO MD Unavailable Unavailable ELISHA CARRASCO MD Unavailable Unavailable ELISHA CARRASCO MD Unavailable Unavailable ELISHA CARRASCO MD Unavailable Unavailable ELISHA CARRASCO MD Unavailable Unavailable ELISHA CARRASCO MD Unavailable Unavailable ELISHA CARRASCO MD Unavailable Unavailable PCP, PT Does Not have, OUT OF AREA Unavailable Unav ailable LIDYA, J SHEA DPM PC Unavailable Unavailable LIDYA, J SHEA DPM PC Unavailable Unavailable LIDYA, J SHEA DPM PC Unavailable Unavailable LIDYA, J SHEA DPM PC Unavailable Unavailable LIDYA, J SHEA DPM PC Unavailable Unavailable LIDYA, J SHEA DPM PC Unavailable Unavailable LIDYA, J SHEA DPM PC Unavailable Unavailable LIDYA, J SHEA DPM PC Unavailable Unavailable LIDYA, J SHEA DPM PC Unavailable Unavailable LIDYA, J SHEA DPM PC Unavailable Unavailable LIDYA, J SHEA DPM PC Unavailable Unavailable LIDYA, J SHEA DPM PC Unavailable Unavailable LIDYA, J SHEA DPM PC Unavailable Unavailable LIDYA, J SHEA DPM PC Unavailable Unavailable LIDYA, J SHEA DPM PC Unavailable Unavailable LIDYA, J SHEA DPM PC Unavailable Unavailable LIDYA, J SHEA DPM PC Unavailable Unavailable LIDYA, J HSEA DPM PC Unavailable Unavailable LIDYA, J SHEA DPM PC Unavailable Unavailable LIDYA, J SHEA DPM PC Unavailable Unavailable LIDYA, J SHEA DPM PC Unavailable Unavailable LIDYA, J SHEA DPM PC Unavailable Unavailable LIDYA, J SHEA DPM PC Unavailable Unavailable LIDYA, J SHEA DPM PC Unavailable Unavailable LIDYA, J SHEA DPM PC Unavailable Unavailable Laura BOSE SHEA DPM PC Unavailable Unavailable Suman, L Susie PA Unavailable Unavailable Suman, L Susie PA Unavailable Unavailable Suman, L Susie PA Unavailable Unavailable Suman, L Susie PA Unavailable Unavailable Suman, L Susie PA Unavailable Unavailable Suman, L Susie PA Unavailable Unavailable Suman, L Susie PA Unavailable Unavailable Suman, L Susie PA Unavailable Unavailable Suman, L Susie PA Unavailable Unavailable Suman, L Susie PA Unavailable Unavailable Suman, L Susie PA Unavailable Unavailable Suman, L Susie PA Unavailable Unavailable Suman, L Susie PA Unavailable Unavailable Suman, L Ssuie PA Unavailable Unavailable Suman, L Susie PA Unavailable Unavailable Suman, L Susie PA Unavailable Unavailable Suman, L Susie PA Unavailable Unavailable Suman, L Susie PA Unavailable Unavailable Suman, L Ssuie PA Unavailable Unavailable Suman, L Susie PA Unavailable Unavailable Suman, L Susie PA Unavailable Unavailable Suman, L Susie PA Unavailable Unavailable Suman, L Susie PA Unavailable Unavailable Garcia, L Puja RPA Unavailable Unavailable Garcia, L Puja RPA Unavailable Unavailable Garcia, L Puja RPA Unavailable Unavailable Garcia, L Puja RPA Unavailable Unavailable Garcia, L Puja RPA Unavailable Unavailable Garcia, L Puja RPA Unavailable Unavailable Garcia, L Puja RPA Unavailable Unavailable Garcia, L Puja RPA Unavailable Unavailable Garcia, L Puja RPA Unavailable Unavailable Garcia, L Puja RPA Unavailable Unavailable Garcia, L Puja RPA Unavailable Unavailable Garcia, L Puja RPA Unavailable Unavailable Garcia, L Puja RPA Unavailable Unavailable Garcia, L Puja RPA Unavailable Unavailable Garcia, L Puja RPA Unavailable Unavailable Garcia, L Puja RPA Unavailable Unavailable Garcia, L Puja RPA Unavailable Unavailable Garcia, L Puja RPA Unavailable Unavailable Garcia, L Puja RPA Unavailable Unavailable Garcia, L Puja RPA Unavailable Unavailable Garcia, L Puja RPA Unavailable Unavailable Garcia, L Puja RPA Unavailable Unavailable Garcia, L Puja RPA Unavailable Unavailable Garcia, L Puja RPA Unavailable Unavailable Garcia, L Puja RPA Unavailable Unavailable Garcia, L Puja RPA Unavailable Unavailable Garcia, L Puja RPA Unavailable Unavailable Garcia, L Puja RPA Unavailable Unavailable Garcia, L Puja RPA Unavailable Unavailable Garcia, L Puja RPA Unavailable Unavailable Garcia, L Puja RPA Unavailable Unavailable Garcia, L Puja RPA Unavailable Unavailable PHYSICIAN, PHYSICIAN ER Unavailable Unavailable Henrry Santana MD Unavailable Unavailable ZumbrotaHenrry MD Unavailable Unavailable ZumbrotaHenrry MD Unavailable Unavailable Zumbrota, Henrry DESOUZA Unavailable Unavailable Zumbrota, Henrry MD Unavailable Unavailable Zumbrota, Henrry MD Unavailable Unavailable Zumbrota, Henrry MD Unavailable Unavailable Zumbrota, Henrry MD Unavailable Unavailable Zumbrota, Henrry MD Unavailable Unavailable Zumbrota, Henrry MD Unavailable Unavailable Zumbrota, Henrry MD Unavailable Unavailable Zumbrota, Henrry MD Unavailable Unavailable Zumbrota, Henrry MD Unavailable Unavailable Zumbrota, Henrry MD Unavailable Unavailable Zumbrota, Henrry MD Unavailable Unavailable Zumbrota, Henrry MD Unavailable Unavailable Zumbrota, Henrry MD Unavailable Unavailable Zumbrota, Henrry MD Unavailable Unavailable Zumbrota, Henrry DESOUZA Unavailable Unavailable Zumbrota, Henrry MD Unavailable Unavailable Zumbrota, Henrry DESOUZA Unavailable Unavailable Zumbrota, Henrry MD Unavailable Unavailable Zumbrota, Henrry MD Unavailable Unavailable Zumbrota, Henrry DESOUZA Unavailable Unavailable Zumbrota, Henrry DESOUZA Unavailable Unavailable Zumbrota, Henrry DESOUZA Unavailable Unavailable Zumbrota, Henrry DESOUZA Unavailable Unavailable Zumbrota, Henrry DESOUZA Unavailable Unavailable BARRCLIVE DESOUZA EVERARDO Unavailable Unavailable Yasmeen STEARNS MD Unavailable Unavailable DARYNYasmeen WYNN MD Unavailable Unavailable Yasmeen STEARNS MD Unavailable Unavailable Yasmeen STEARNS MD Unavailable Unavailable Yasmeen STEARNS MD Unavailable Unavailable Yasmeen STEARNS MD Unavailable Unavailable Yasmeen STEARNS MD Unavailable Unavailable Yasmeen STEARNS MD Unavailable Unavailable Yasmeen STEARNS MD Unavailable Unavailable Yasmeen STEARNS MD Unavailable Unavailable Yasmeen STEARNS MD Unavailable Unavailable Yasmeen STEARNS MD Unavailable Unavailable Yasmeen STEARNS MD Unavailable Unavailable Yasmeen STEARNS MD Unavailable Unavailable Yasmeen STEARNS MD Unavailable Unavailable Yasmeen STEARNS MD Unavailable Unavailable Yasmeen STEARNS MD Unavailable Unavailable Yasmeen STEARNS MD Unavailable Unavailable Yasmeen STEARNS MD Unavailable Unavailable Cruzito SHERMAN Unavailable Unavailable YOUNG SONI Unavailable Unavailable BARRACO, EVERARDO Unavailable Unavailable BARRACO, EVERARDO Unavailable Unavailable Gopi BEATTY MD Unavailable Unavailable Gopi BEATTY MD Unavailable Unavailable Gopi BEATTY MD Unavailable Unavailable Gopi BEATTY MD Unavailable Unavailable Gopi BEATTY MD Unavailable Unavailable Gopi BEATTY MD Unavailable Unavailable Gopi BEATTY MD Unavailable Unavailable Gopi BEATTY MD Unavailable Unavailable Gopi BEATTY MD Unavailable Unavailable Gopi BEATTY MD Unavailable Unavailable Gopi BEATTY MD Unavailable Unavailable Gopi BEATTY MD Unavailable Unavailable Gopi BEATTY MD Unavailable Unavailable Gopi BEATTY MD Unavailable Unavailable Gopi BEATTY MD Unavailable Unavailable Gopi BEATTY MD Unavailable Unavailable Gopi BEATTY MD Unavailable Unavailable Gopi BEATTY MD Unavailable Unavailable Gopi BEATTY MD Unavailable Unavailable Gopi BEATTY MD Unavailable Unavailable Gopi BEATTY MD Unavailable Unavailable Gopi BEATTY MD Unavailable Unavailable Gopi BEATTY MD Unavailable Unavailable Gopi BEATTY MD Unavailable Unavailable Gopi BEATTY MD Unavailable Unavailable Gopi BEATTY MD Unavailable Unavailable Gopi BEATTY MD Unavailable Unavailable Gopi BEATTY MD Unavailable Unavailable Gopi BEATTY MD Unavailable Unavailable Gopi BEATTY MD Unavailable Unavailable Gopi BEATTY MD Unavailable Unavailable Gopi BEATTY MD Unavailable Unavailable Gopi BEATTY MD Unavailable Unavailable Gopi BEATTY MD Unavailable Unavailable Gopi BEATTY MD Unavailable Unavailable Gopi BEATTY MD Unavailable Unavailable Gopi BEATTY MD Unavailable Unavailable Gopi BEATTY MD Unavailable Unavailable Gopi BEATTY MD Unavailable Unavailable Gopi BEATTY MD Unavailable Unavailable Gopi BEATTY MD Unavailable Unavailable KATHERYN, ABRoxi Unavailable Unavailable ROBBY ROSA Unavailable Unavailable Cruzito LUONG Unavailable Unavailable Kimberly Canseco MD Unavailable Unavailable Kimberly Canseco MD Unavailable Unavailable Kimberly Canseco MD Unavailable Unavailable Kimberly Canseco MD Unavailable Unavailable Kimberly Canseco MD Unavailable Unavailable Kimberly Canseco MD Unavailable Unavailable Kimberly Canseco MD Unavailable Unavailable Kimberly Canseco MD Unavailable Unavailable Kimberly Canseco MD Unavailable Unavailable Kimberly Canseco MD Unavailable Unavailable Kimberly Canseco MD Unavailable Unavailable Kimberly Canseco MD Unavailable Unavailable Kimberly Canseco MD Unavailable Unavailable Kimberly Canseco MD Unavailable Unavailable Kimberly Canseco MD Unavailable Unavailable Gopi BEATTY MD Unavailable Unavailable Gopi BEATTY MD Unavailable Unavailable Gopi BEATTY MD Unavailable Unavailable Gopi BEATTY MD Unavailable Unavailable Gopi BEATTY MD Unavailable Unavailable Gopi BEATTY MD Unavailable Unavailable Gopi BEATTY MD Unavailable Unavailable Gopi BEATTY MD Unavailable Unavailable Gopi BEATTY MD Unavailable Unavailable Gopi BEATTY MD Unavailable Unavailable Gopi BEATTY MD Unavailable Unavailable Gopi BEATTY MD Unavailable Unavailable Gopi BEATTY MD Unavailable Unavailable Gopi BEATTY MD Unavailable Unavailable Gopi BEATTY MD Unavailable Unavailable Gopi BEATTY MD Unavailable Unavailable Gopi BEATTY MD Unavailable Unavailable Gopi BEATTY MD Unavailable Unavailable Gopi BEATTY MD Unavailable Unavailable Gopi BEATTY MD Unavailable Unavailable Gopi BEATTY MD Unavailable Unavailable Gopi BEATTY MD Unavailable Unavailable Gopi BEATTY MD Unavailable Unavailable Gopi BEATTY MD Unavailable Unavailable Gopi BEATTY MD Unavailable Unavailable Gopi BEATTY MD Unavailable Unavailable Gopi BEATTY MD Unavailable Unavailable Gopi BEATTY MD Unavailable Unavailable Gopi BEATTY MD Unavailable Unavailable Gopi BEATTY MD Unavailable Unavailable Gopi BEATTY MD Unavailable Unavailable Gopi BEATTY MD Unavailable Unavailable Gopi BEATTY MD Unavailable Unavailable Gopi BEATTY MD Unavailable Unavailable Gopi BEATTY MD Unavailable Unavailable Gopi BEATTY MD Unavailable Unavailable Gopi BEATTY MD Unavailable Unavailable Gopi BEATTY MD Unavailable Unavailable Gopi BEATTY MD Unavailable Unavailable Gopi BEATTY MD Unavailable Unavailable Gopi BEATTY MD Unavailable Unavailable LIDYA, J SHEA DPM PC Unavailable Unavailable LIDYA, J SHEA DPM PC Unavailable Unavailable LIDYA, J SHEA DPM PC Unavailable Unavailable LIDYA, J SHEA DPM PC Unavailable Unavailable LIDYA, J SHEA DPM PC Unavailable Unavailable LIDYA, J SHEA DPM PC Unavailable Unavailable LIDYA, J SHEA DPM PC Unavailable Unavailable LIDYA, J SHEA DPM PC Unavailable Unavailable LIDYA, J SHEA DPM PC Unavailable Unavailable LIDYA, J SHEA DPM PC Unavailable Unavailable LIDYA, J SHEA DPM PC Unavailable Unavailable LIDYA, J SHEA DPM PC Unavailable Unavailable LIDYA, J SHEA DPM PC Unavailable Unavailable LIDYA, J SHEA DPM PC Unavailable Unavailable LIDYA, J SHEA DPM PC Unavailable Unavailable LIDYA, J SHEA DPM PC Unavailable Unavailable LIDYA, J SHEA DPM PC Unavailable Unavailable LIDYA, J SHEA DPM PC Unavailable Unavailable LIDYA, J SHEA DPM PC Unavailable Unavailable LIDYA, J SHEA DPM PC Unavailable Unavailable LIDYA, J SHEA DPM PC Unavailable Unavailable LIDYA, J SHEA DPM PC Unavailable Unavailable LIDYA, J SHEA DPM PC Unavailable Unavailable LIDYA, J SHEA DPM PC Unavailable Unavailable LIDYA, J SHEA DPM PC Unavailable Unavailable LIDYA, J SHEA DPM PC Unavailable Unavailable VIRY LACEY MD Unavailable Unavailable VIRY LACEY MD Unavailable Unavailable VIRY LACEY MD Unavailable Unavailable VIRY LACEY MD Unavailable Unavailable VIRY LACEY MD Unavailable Unavailable ANTECOL, Gavino ROJAS MD Unavailable Unavailable ANTECOL, Gavino ROJAS MD Unavailable Unavailable ANTECOL, Gavino ROJAS MD Unavailable Unavailable ANTECOL, Gavino ROJAS MD Unavailable Unavailable ANTECOL, Gavino ROJAS MD Unavailable Unavailable ANTECOL, Gavino ROJAS MD Unavailable Unavailable ANTECOL, Gavino ROJAS MD Unavailable Unavailable ANTECOL, Gavino ROJAS MD Unavailable Unavailable ANTECOL, Gavino ROJAS MD Unavailable Unavailable ANTECOL, Gavino ROJAS MD Unavailable Unavailable ANTECOL, Gavino ROJAS MD Unavailable Unavailable ANTECOL, Gavino ROJAS MD Unavailable Unavailable ANTECOL, Gavino ROJAS MD Unavailable Unavailable ANTECOL, Gavino ROJAS MD Unavailable Unavailable ANTECOL, Gavino ROJAS MD Unavailable Unavailable ANTECOL, Gavino ROJAS MD Unavailable Unavailable ANTECOL, Gavino ROJAS MD Unavailable Unavailable ANTECOL, Gavino ROJAS MD Unavailable Unavailable ANTECOL, Gavino ROJAS MD Unavailable Unavailable ANTECOL, Gavino ROJAS MD Unavailable Unavailable ANTECOL, Gavino ROJAS MD Unavailable Unavailable ANTECOLGavino MD Unavailable Unavailable ANTECOL, Gavino ROJAS MD Unavailable Unavailable ANTECOL, Gavino ROJSA MD Unavailable Unavailable ANTECOL, Gavino ROJAS MD Unavailable Unavailable ANTECOL, Gavino ROJAS MD Unavailable Unavailable ANTECOL, Gavino ROJAS MD Unavailable Unavailable ANTECOL, Gvaino ROJAS MD Unavailable Unavailable ANTECOL, Gavino ROJAS MD Unavailable Unavailable ANTECOL, Gavino ROJAS MD Unavailable Unavailable ANTECOL, Gavino ROJAS MD Unavailable Unavailable ANTECOL, Gavino ROJAS MD Unavailable Unavailable ANTECOL, Gavino ROJSA MD Unavailable Unavailable ANTECOL, Gavino ROJAS MD Unavailable Unavailable ANTECOL, Gavino ROJAS MD Unavailable Unavailable ANTECOL, Gavino ROJAS MD Unavailable Unavailable ANTECOL, Gavino ROJAS MD Unavailable Unavailable ANTECOL, Gavino ROJAS MD Unavailable Unavailable ANTECOL, Gavino ROJAS MD Unavailable Unavailable ANTECOL, Gavino ROJAS MD Unavailable Unavailable ANTECOL, Gavino ROJAS MD Unavailable Unavailable ANTECOL, Gavino ROJAS MD Unavailable Unavailable ANTECOL, Gavino ROJAS MD Unavailable Unavailable ANTECOL, Gavino ROJAS MD Unavailable Unavailable ANTECOL, Gavino ROJAS MD Unavailable Unavailable ANTECOL, Gavino ROJAS MD Unavailable Unavailable ANTECOL, Gavino ROJAS MD Unavailable Unavailable ANTECOL, Gavino ROJAS MD Unavailable Unavailable ANTECOL, Gavino ROJAS MD Unavailable Unavailable ANTECOL, Gavino ROJAS MD Unavailable Unavailable ANTECOL, Gavino ROJAS MD Unavailable Unavailable ANTECOL, Gavino ROJAS MD Unavailable Unavailable ANTECOL, Gavino ROJAS MD Unavailable Unavailable ANTECOL, Gavino ROJAS MD Unavailable Unavailable ANTECOL, Gavino ROJAS MD Unavailable Unavailable PHYSICIAN, ER Unavailable Unavailable KATHERYN DESOUZA, NICHOLE UNGER Unavailable Unavailable Yasmeen SUNG MD Unavailable Unavailable Yasmeen SUNG MD Unavailable Unavailable Yasmeen SUNG MD Unavailable Unavailable Yasmeen SUNG MD Unavailable Unavailable Yamseen SUNG MD Unavailable Unavailable Yasmeen SUNG MD Unavailable Unavailable Yasmeen SUNG MD Unavailable Unavailable Yasmeen SUNG MD Unavailable Unavailable Yasmeen SUNG MD Unavailable Unavailable Yasmeen SUNG MD Unavailable Unavailable Yasmeen SUNG MD Unavailable Unavailable Yasmeen SUNG MD Unavailable Unavailable Yasmeen SUNG MD Unavailable Unavailable Yasmeen SUNG MD Unavailable Unavailable Yasmeen SUNG MD Unavailable Unavailable Yasmeen SUNG MD Unavailable Unavailable Yasmeen SUNG MD Unavailable Unavailable Yasmeen SUNG MD Unavailable Unavailable Yasmeen SUNG MD Unavailable Unavailable Yasmeen SUNG MD Unavailable Unavailable Yasmeen SUNG MD Unavailable Unavailable Yasmeen SUNG MD Unavailable Unavailable Yasmeen SUNG MD Unavailable Unavailable Yasmeen SUNG MD Unavailable Unavailable Yasmeen SUNG MD Unavailable Unavailable Yasmeen SUNG MD Unavailable Unavailable Yasmeen SUNG MD Unavailable Unavailable Yasmeen SUNG MD Unavailable Unavailable Yasmeen SUNG MD Unavailable Unavailable Yasmeen SUNG MD Unavailable Unavailable Yasmeen SUNG MD Unavailable Unavailable Yasmeen SUNG MD Unavailable Unavailable Yasmeen SUNG MD Unavailable Unavailable Yasmeen SUNG MD Unavailable Unavailable Yasmeen SUNG MD Unavailable Unavailable Yasmeen SUNG MD Unavailable Unavailable Yasmeen SUNG MD Unavailable Unavailable Yasmeen SUNG MD Unavailable Unavailable BERKERYasmeen Keller MD Unavailable Unavailable BERKERYYasmeen MD Unavailable Unavailable BERKERYYasmeen MD Unavailable Unavailable BERKERYYasmeen MD Unavailable Unavailable BERKERYYasmeen MD Unavailable Unavailable BERKERYYasmeen MD Unavailable Unavailable BERKERYYasmeen MD Unavailable Unavailable BERKERYYasmeen MD Unavailable Unavailable BERKERYYasmeen MD Unavailable Unavailable BERKERYYasmeen MD Unavailable Unavailable BERKERYYasmeen MD Unavailable Unavailable BERKERYYasmeen MD Unavailable Unavailable BERKERYYasmeen MD Unavailable Unavailable BERKERYYasmeen MD Unavailable Unavailable BERKERYYasmeen MD Unavailable Unavailable BERKERYYasmeen MD Unavailable Unavailable BERKERYYasmeen MD Unavailable Unavailable BERKERYYasmeen MD Unavailable Unavailable BERKERYYasmeen MD Unavailable Unavailable BERKERYYasmeen MD Unavailable Unavailable BERKERYYasmeen MD Unavailable Unavailable BERKERYasmeen Keller MD Unavailable Unavailable BERKERYYasmeen MD Unavailable Unavailable BERKERYYasmeen MD Unavailable Unavailable BERKERYYasmeen MD Unavailable Unavailable BERKERYYasmeen MD Unavailable Unavailable BERKERYYasmeen MD Unavailable Unavailable BERKERYYasmeen MD Unavailable Unavailable BERKERYasmeen Keller MD Unavailable Unavailable BERKERYasmeen Keller MD Unavailable Unavailable BERKERYasmeen Keller MD Unavailable Unavailable BERKERYYasmeen MD Unavailable Unavailable BERKERYYasmeen MD Unavailable Unavailable BERKERYYasmeen MD Unavailable Unavailable BERKERYYasmeen MD Unavailable Unavailable BERKERYasmeen Keller MD Unavailable Unavailable BERKERYYasmeen MD Unavailable Unavailable BERKERYasmeen Keller MD Unavailable Unavailable BERKERYYasmeen MD Unavailable Unavailable BERKERYYasmeen MD Unavailable Unavailable BERKERYYasmeen MD Unavailable Unavailable BERKERYYasmeen MD Unavailable Unavailable BERKERYasmeen Keller MD Unavailable Unavailable BERKERYasmeen Keller MD Unavailable Unavailable BERKERYYasmeen MD Unavailable Unavailable BERKERYYasmeen MD Unavailable Unavailable BERKERYYasmeen MD Unavailable Unavailable BERKERYYasmeen MD Unavailable Unavailable BERKERYYasmeen MD Unavailable Unavailable BERKERYYasmeen MD Unavailable Unavailable BERKERYasmeen Keller MD Unavailable Unavailable BERKERYYasmeen MD Unavailable Unavailable BERKERYYasmeen MD Unavailable Unavailable BERKERYYasmeen MD Unavailable Unavailable BERKERYYasmeen MD Unavailable Unavailable BERKERYYasmeen MD Unavailable Unavailable Yasmeen SUNG MD Unavailable Unavailable Yasmeen SUNG MD Unavailable Unavailable Yasmeen SUNG MD Unavailable Unavailable Yasmeen SUNG MD Unavailable Unavailable VIRY LACEY MD Unavailable Unavailable VIRY LACEY MD Unavailable Unavailable VIRY LACEY MD Unavailable Unavailable VIRY LACEY MD Unavailable Unavailable VIRY LACEY MD Unavailable Unavailable NAZEM, AHMAD MD Unavailable Unavailable NAZEM, AHMAD MD Unavailable Unavailable NAZEM, AHMAD MD Unavailable Unavailable NAZEM, AHMAD MD Unavailable Unavailable NAZEM, AHMAD MD Unavailable Unavailable NAZEM, AHMAD MD Unavailable Unavailable NAZEM, AHMAD MD Unavailable Unavailable NAZEM, AHMAD MD Unavailable Unavailable NAZEM, AHMAD MD Unavailable Unavailable NAZEM, AHMAD MD Unavailable Unavailable NAZEM, AHMAD MD Unavailable Unavailable NAZEM, AHMAD MD Unavailable Unavailable NAZEM, AHMAD MD Unavailable Unavailable NAZEM, AHMAD MD Unavailable Unavailable NAZEM, AHMAD MD Unavailable Unavailable NAZEM, AHMAD MD Unavailable Unavailable NAZEM, AHMAD MD Unavailable Unavailable NAZEM, AHMAD MD Unavailable Unavailable NAZEM, AHMAD MD Unavailable Unavailable NAZEM, AHMAD MD Unavailable Unavailable NAZEM, AHMAD MD Unavailable Unavailable NAZEM, AHMAD MD Unavailable Unavailable NAZEM, AHMAD MD Unavailable Unavailable NAZEM, AHMAD MD Unavailable Unavailable NAZEM, AHMAD MD Unavailable Unavailable NAZEM, AHMAD MD Unavailable Unavailable NAZEM, AHMAD MD Unavailable Unavailable NAZEM, AHMAD MD Unavailable Unavailable NAZEM, AHMAD MD Unavailable Unavailable NAZEM, AHMAD MD Unavailable Unavailable NAZEM, AHMAD MD Unavailable Unavailable NAZEM, AHMAD MD Unavailable Unavailable NAZEM, AHMAD MD Unavailable Unavailable NAZEM, AHMAD MD Unavailable Unavailable NAZEM, AHMAD MD Unavailable Unavailable NAZEM, AHMAD MD Unavailable Unavailable NAZEM, AHMAD MD Unavailable Unavailable NAZEM, AHMAD MD Unavailable Unavailable NAZEM, AHMAD MD Unavailable Unavailable NAZEM, AHMAD MD Unavailable Unavailable NAZEM, AHMAD MD Unavailable Unavailable NAZEM, AHMAD MD Unavailable Unavailable NAZEM, AHMAD MD Unavailable Unavailable NAZEM, AHMAD MD Unavailable Unavailable NAZEM, AHMAD MD Unavailable Unavailable NAZEM, AHMAD MD Unavailable Unavailable NAZEM, AHMAD MD Unavailable Unavailable NAZEM, AHMAD MD Unavailable Unavailable NAZEM, AHMAD MD Unavailable Unavailable NAZEM, AHMAD MD Unavailable Unavailable NAZEM, AHMAD MD Unavailable Unavailable NAZEM, AHMAD MD Unavailable Unavailable NAZEM, AHMAD MD Unavailable Unavailable NAZEM, AHMAD MD Unavailable Unavailable NAZEM, AHMAD MD Unavailable Unavailable NAZEM, AHMAD MD Unavailable Unavailable NAZEM, AHMAD MD Unavailable Unavailable NAZEM, AHMAD MD Unavailable Unavailable NAZEM, AHMAD MD Unavailable Unavailable NAZEM, AHMAD MD Unavailable Unavailable DARYN, P BECCA MD Unavailable Unavailable DARYN, P BECCA MD Unavailable Unavailable DARYN, P BECCA MD Unavailable Unavailable DARYN, P BECCA MD Unavailable Unavailable DARYN, P BECCA MD Unavailable Unavailable DARYN, P BECCA MD Unavailable Unavailable DARYN, P BECCA MD Unavailable Unavailable DARYN, P BECCA MD Unavailable Unavailable DARYN, P BECCA MD Unavailable Unavailable DARYN, P BECCA MD Unavailable Unavailable DARYN, P BECCA MD Unavailable Unavailable DARYN, P BECCA MD Unavailable Unavailable DARYN, P BECCA MD Unavailable Unavailable DARYN, P BECCA MD Unavailable Unavailable DARYN, P BECCA MD Unavailable Unavailable DRAYN, P BECCA MD Unavailable Unavailable DARYN, P BECCA MD Unavailable Unavailable DARYN, P BECCA MD Unavailable Unavailable DARYN, P BECCA MD Unavailable Unavailable Laura MARRERO MD Unavailable Unavailable Laura MARRERO MD Unavailable Unavailable Laura MARRERO MD Unavailable Unavailable Laura MARRERO MD Unavailable Unavailable Laura MARRERO MD Unavailable Unavailable Laura MARRERO MD Unavailable Unavailable Laura MARRERO MD Unavailable Unavailable Laura MARRERO MD Unavailable Unavailable Laura MARRERO MD Unavailable Unavailable Re-disclosure Warning The records that you are about to access may contain information from federally-assisted alcohol or drug abuse programs. If such information is present, then the following federally mandated warning applies: This information has been disclosed to you from records protected by federal confidentiality rules (42 CFR part 2). The federal rules prohibit you from making any further disclosure of this information unless further disclosure is expressly permitted by the written consent of the person to whom it pertains or as otherwise permitted by 42 CFR part 2. A general authorization for the release of medical or other information is NOT sufficient for this purpose. The Federal rules restrict any use of the information to criminally investigate or prosecute any alcohol or drug abuse patient.The records that you are about to access may contain highly sensitive health information, the redisclosure of which is protected by Article 27-F of the [facility] Public Health law. If you continue you may have access to information: Regarding HIV / AIDS; Provided by facilities licensed or operated by the [facility] Office of Mental Health; or Provided by the [facility] Office for People With Developmental Disabilities. If such information is present, then the following [facility] mandated warning applies: This information has been disclosed to you from confidential records which are protected by state law. State law prohibits you from making any further disclosure of this information without the specific written consent of the person to whom it pertains, or as otherwise permitted by law. Any unauthorized further disclosure in violation of state law may result in a fine or fdc sentence or both. A general authorization for the release of medical or other information is NOT sufficient authorization for further disc losure. Allergies and Adverse Reactions Type Description Substance Reaction Status Data Source(s ) Propensity to adverse reactions NIFEDIPINE Nifedipine Acti ve [facility] Propensity to adverse reactions GABAPENTIN gabapentin Acti ve [facility] Propensity to adverse reactions OXYCODONE Oxycodone Acti ve [facility] Propensity to adverse reactions METHOXY POLYETHYLENE GLYCOL- EPOETIN BETA Methoxy polyethylene glycol-epoetin beta Active [facility] Propensity to adverse reactions MINOXIDIL Minoxidil Acti ve [facility] Propensity to adverse reactions INDOMETHACIN Indomethacin Active [facility] Propensity to adverse reactions HYDRALAZINE Hydralazine Ac tive [facility] Propensity to adverse reactions AMLODIPINE Amlodipine Acti ve [facility] Family History Family Member Name Family Member Gender Family Member Status Date o f Status Description Data Source(s) Unknown Male Problem [facility] ([facility]) Unknown Male Problem [facility] ([facility] () Unknown Female Problem [facility] ([facility]) Encounters Encounter Providers Location Date Indications Data Source(s ) Outpatient Attender: DUANE BEATTY MD 05/22/2020 12:26:00 PM [facility] E[facility] [id number] [facility] ECHO [id number] Inpatient Admitter: DUANE BEATTY MDReferrer: ROBBY Marquez [id number] 05/07/2020 10:36:31 AM EST [facility] Inpatient Attender: YULIANA Harris nder: DUANE BEATTY MDAdmitter: DUANE BEATTY MDReferrer: ROBBY ROSA [id number] 05/07/2020 09:21:00 AM EST - 05/08/2020 12:25:00 PM EST [facility] Patient discharged. Outpatient Attender: DUANE BEATTY MDReferrer: DUAEN HORN MD MOB-MOB.PAT 2020 01:50:12 PM EST - 2020 03:09:[address] [facility] Outpatient Referrer: DUANE ROSA-MOB.PAT 04/05 01:21:24 PM EST - 2020 01:21:29 PM EST [facility] Outpatient Attender: YOUNG Campuzano: SHEA BOSE DPM 04/29/2020 10:51:23 AM EST - 2020 10:03:00 AM EST [facility] Patient discharged. Outpatient Attender: DUANE BEATTY MDReferrer: DUANE HORN MD [id number] 04/15/2020 11:14:00 AM EST - 04/15/2020 11:59:[address] [facility] Patient discharged. Outpatient Referrer: DUANE BEATTY MD 04/15/2020 09:07:07 AM EST [facility] Outpatient Attender: YULIANA AGUILAR MD [facility] 021 12:00:00 AM EST - 04/15/2020 01:00:[address] [facility] Outpatient Attender: DUANE BEATTY MD [facility] [place] 04/08/2020 03:03:00 PM EST [facility] ([facility]) Outpatient Attender: IRVIN SUNG MD [facility] [place] 04/07/2020 01:21:00 AM EST [facility] ([facility]) Outpatient Attender: IRVIN SUNG MD [facility] [place] 04/04/2020 01:25:00 AM EST [facility] ([facility]) Outpatient Attender: IRVIN SUNG MD [facility] [place] 04/01/2020 03:42:00 PM EST [facility] ([facility]) [place] ( in Healthcare facility) Attender: VIRY LACEY MDAttender: EVERARDO KINCAIDAdmitter: EVERARDO KINCAIDConsultant: OUT OF AREA PCP, PT Does Not have 03/30/2020 08:44:00 AM EST - 04/08/2020 03:14:00 PM EST [facility] Inpatient Attender: VIRY LACEY MDAttender: EVERARDO RODRIGUEZ 03/30/2020 08:44:00 AM EST [facility] Inpatient Attender: VIRY LACEY MDA ttender: BECCA STEARNS MDAttender: EVERARDO KINCAID MDAttender: ER PHYSICIANAdmitter: EVERARDO KINCAID MD 03/30/2020 08:08:35 AM EST [facility] Inpatient Attender: VIRY LACEY MDA ttender: BECCA STEARNS MDAttender: ELISHA CARRASCO MDAttender: EVERARDO Herreraender: ER PHYSICIANAdmitter: EVERARDO KINCAID 03/30/2020 04:33:00 AM EST - 04/08/2020 03:14:00 PM EST VOLUME OVERLOAD [facility] VOLUME OVERLOAD Patient discharged. Emergency Attender: SHARRON LUONG 07:36:00 PM EST - 03/30/2020 02:47:00 AM EST [facility] Patient discharged. Outpatient Attender: Fallon Sarah/Max/Dominic/ Reindl 03/06/2020 09:00:00 AM EST [facility] ([facility]) Outpatient Attender: Susie RASHID Main Office 02/21/2020 12:15:0 0 PM EST [facility] ([facility]) Inpatient Attender: CORNEL Carrilloender: ER PHYSICIAN 02/09/2020 12:43:00 PM [facility] ( in Healthcare facility) Attender: CORNEL Dominguez er: CORNEL CAMPA 02/09/2020 12:43:00 PM [facility] Inpatient Attender: MARISSA Neriender: ER PHYSICIAN 02/09/2020 11:48:58 AM EST [facility] Inpatient Attender: CORNEL Thornton: ER PHYSICIANMary Carmen r: CORNEL CAMPA 02/09/2020 09:23:00 AM EST - 02/12/2020 04:49:00 PM EST SOB/ESRD/S/P NEPRECTOMY/PAD [facility] SOB/ESRD/S/P NEPRECTOMY/PAD Patient discharged. Emergency Attender: MERRITT MARRERO MD 02/08 04:08:00 AM EST - 02/09/2020 07:40:00 AM [facility] Patient discharged. Emergency Attender: DARREL SHERMAN 02/03/2020 12: 33:00 AM EDT - 02/03/2020 03:04:00 AM [facility] Patient discharged. Office Visit Attender: BOB BUENROSTRO MD Main Office 01/31/2020 10: 30:00 AM EDT [facility] ([facility]) Office Visit Attender: Puja Hopkinsang/Zumbrota/Dominic/R eindl 12/25/2019 01:00:00 PM EDT [facility] ([facility]) Office Visit Attender: Puja Hopkinsang/Zumbrota/Dominic/R eindl 12/19/2019 11:45:00 AM EDT [facility] ([facility]) Office Visit Attender: Fallon Sarah/Max/Dominic/ Reinasha 10/25/2019 09:45:00 AM EDT [facility] ([facility]) Office Visit Attender: Fallon Sarah/Max/Dominic/ Reindl 10/11/2019 11:45:00 AM EDT [facility] ([facility]) [place] [address] [facility] [address] 09/19/2019 12:00:00 AM EDT [facility]CW1 ([facility]) [place] [address] [facility] [address] 09/14/2019 12:00:00 AM EDT eCW1 ([facility]) [facility] [address] [facility] [address] 09/14/2019 12:00:00 AM EDT eCW1 ([facility]) Outpatient Attender: Puja Sarah/Max/Dominic/R eindl 09/12/2019 02:00:00 PM EDT [facility] ([facility]) [facility] [address] [facility] [address] 09/07/2019 12:00:00 AM EDT eCW1 ([facility]) Outpatient Attender: Susie RASHID Main Office 08/28/2019 01:30:0 0 PM EDT [facility] ([facility]) [facility] [address] [facility] [address] 08/24/2019 12:00:00 AM EDT eCW1 ([facility]) [facility] [address] [facility] [address] 08/24/2019 12:00:00 AM EDT eCW1 ([facility]) [facility] [address] [facility] [address] 08/16/2019 12:00:00 AM EDT eCW1 ([facility]) Outpatient Attender: Fallon Sarah/Max/Dominic/ Reindl 08/13/2019 02:30:00 PM EDT [facility] ([facility]) [facility] [address] [facility] [address] 08/09/2019 12:00:00 AM EDT eCW1 ([facility]) [facility] [address] [facility] [address] 08/09/2019 12:00:00 AM EDT eCW1 ([facility]) [facility] [address] [facility] [address] 08/03/2019 12:00:00 AM EDT eCW1 ([facility]) [facility] [address] [facility] [address] 07/27/2019 12:00:00 AM EDT eCW1 ([facility]) Outpatient 07/26/2019 11:34:00 AM EDT [facility] Emergency Attender: MERRITT MARRERO MD 07/25 10:28:00 AM EDT - 07/26/2019 03:55:00 PM EDT [facility] Patient discharged. Outpatient 07/25/2019 10:12:00 AM EDT [facility] [address] [facility] [address] 07/20/2019 12:00:00 AM EDT eCW1 ([facility]) [facility] [address] [facility] [address] 07/13/2019 12:00:00 AM EDT eCW1 ([facility]) [facility] [address] [facility] [address] 07/13/2019 12:00:00 AM EDT eCW1 ([facility]) Outpatient Attender: Puja Sarah/Max/Dominic/Marcia sheridan 07/11/2019 11:30:00 AM EDT [facility] ([facility] [address] [facility] [address] 07/06/2019 12:00:00 AM EDT eCW1 ([facility]) Office Visit Attender: BOB BUENROSTRO MD Main Office 06/29/2019 12: 00:00 PM EDT [facility] ([facility]) [facility]ound [facility] [address] [facility] [address] 06/29/2019 12:00:00 AM EDT eCW1 ([facility]) [facility] Wound Care Center [address] [place] [address] 06/29/2019 12:00:00 AM EDT eCW1 ([facility]) [facility]ound [facility] [address] [facility] [address] 06/22/2019 12:00:00 AM EDT eCW1 ([facility]) [facility] Center [address] [place] [address] 06/22/2019 12:00:00 AM EDT eCW1 ([facility]) [facility] Wound Care [address] [place] [address] [address] 06/12/2019 12:00:00 AM EDT eCW1 ([facility]) Outpatient Attender: Fallon Sarah/Max/Dominic/ Reinasha 06/04/2019 03:15:00 PM EST [facility] ([facility]) [facility]ound [facility] [address] [facility] [address] 06/01/2019 12:00:00 AM EST eCW1 ([facility]) Outpatient Attender: Henrry Sarah/Max/Dominic/Chaim l 05/30/2019 01:30:00 PM EST [facility] ([facility]) Outpatient 05/29/2019 04:00:00 PM EST [facility] Outpatient 05/25/2019 03:23:00 PM EST [facility] Outpatient 05/24/2019 05:30:00 AM EST [facility] Outpatient 05/14/2019 04:10:00 PM EST [facility] Outpatient 05/09/2019 09:03:00 AM EST [facility] Outpatient 05/01/2019 01:07:00 PM EST [facility] Emergency Attender: MERRITT MARRERO MD 05/01 12:53:00 PM EST - 05/01/2019 07:20:00 PM [facility] Patient discharged. Outpatient 04/12/2019 11:36:00 AM EST [facility] Outpatient Attender: SHEA BOSE DPM 0 03:52:00 PM EST I73.9,L60.0 [facility] I73.9,L60.0 Outpatient Attender: SHEA BOSE DPM 04/10/2019 03:45:00 PM EST - 04/10/2019 03:45:00 PM EST [facility] Outpatient Attender: SHEA BOSE DPM PC 04/03/2019 10:03:00 AM EST - 04/03/2019 10:03:00 AM [facility] Medications Medication Brand Name Start Date Product Form Dose Route Admi nistrative Instructions Pharmacy Instructions Status Indications Reaction Description Data Source(s) Bisacodyl 10 MG Rectal Suppository bisacodyl (DULCOLAX ) suppository 10 mg bisacodyl (DULCOLAX) suppository 10 mg 05/10/2020 09:00:00 AM EST 10 mg Rectal active 10 mg, Rectal, Daily PRN, constipation, Starting 05/10/20 at 0900, Post-op
If lactulose not effective, give bisacodyl suppository x 1 per rectum prn starting POD #3.
[facility] Medication administered onsite pantoprazole 40 MG Delayed Release Oral Tablet pantoprazole (PROTONIX) EC tablet 40 mg pantoprazole (PROTONIX) EC tablet 40 mg 05/08/2020 09:00:[address] 40 mg Oral active Gastroesophageal Reflux Diseas e 40 mg, Oral, Daily, Indications: Gastroesophageal Reflux Disease, First dose on Joanna 05/08/[address] [facility] Gastroesophageal Reflux Disease Medication administered onsite clopidogrel 75 MG Oral Tablet clopidogrel (PLAVIX) tab let 75 mg clopidogrel (PLAVIX) tablet 75 mg 05/08/2020 09:00:00 AM EST 75 mg Oral active 75 mg, Oral, Daily, First dose on Joanna 05/08/[address] [facility] Medication administered onsite Docusate Sodium 100 MG Oral Capsule docusate sodium (C OLACE) capsule 200 mg docusate sodium (COLACE) capsule 200 mg 05/08/2020 09:00:00 AM EST 200 mg Oral active 200 mg, Oral, Daily, First dose on Tue05/08/20 at 0900
hold for loose stools
[facility] Medication administered onsite Aspirin 81 MG Delayed Release Oral Tablet aspirin EC t ablet 81 mg aspirin EC tablet 81 mg 05/08/2020 09:00:00 AM EST 81 mg Oral activ e 81 mg, Oral, Daily, First dose on Tue05/08/[address] [facility] Medication administered onsite Polyvinyl Alcohol 0.014 ML/ML Ophthalmic Solution polyvinyl alcohol (LIQUIFILM TEARS) 1.4 % ophthalmic solution 2 drop polyvinyl alcohol (LIQUIFILM TEARS) 1.4 % ophthalmic solution 2 drop 05/08/2020 08:56:05 AM EST 2 [drp] active 2 drop, Both Eyes, As needed, dry eyes, Starting Tue05/08/[address] [facility] Medication administered onsite normal saline flush 0.9 % injection 3 mL [id number] 05/07/2020 10:00:00 PM EST 3 mL Intravenous active 3 mL , Intravenous, PROTOCOL, First dose on Tue05/07/20 at 2200, Post-op
flush per protocol, D/C Main IV fluid if appropriate
[facility] Medication administered onsite Nortriptyline 10 MG Oral Capsule nortriptyline (PAMELO R) capsule 30 mg nortriptyline (PAMELOR) capsule 30 mg 05/07/2020 09:00:00 PM EST 30 m g Oral active 30 mg, Oral, 2 times daily, First dose on Tue05/07/[address] [facility] Medication administered onsite midodrine hydrochloride 5 MG Oral Tablet midodrine (MA OAMATINE) tablet 5 mg midodrine (PROAMATINE) tablet 5 mg 05/07/2020 09:00:00 PM EST 5 mg Oral active 5 mg, Oral, Every evening, First dose on Tue05/07/20 at 2100 [facility] Medication administered onsite atorvastatin 40 MG Oral Tablet atorvastatin (LIPITOR) tablet 40 mg atorvastatin (LIPITOR) tablet 40 mg 05/07/2020 09:00:00 PM EST 40 mg Oral active 40 mg, Oral, Nightly, First dose on Tue05/07/[address] [facility] Medication administered onsite heparin (porcine) injection 5,000 Units [id number] 05/07/19 09:00:00 PM EST 5000 U Subcutaneous active 5,000 Units , Subcutaneous, Every 12 hours (scheduled), First dose on Tue05/07/20 at 2100, Post-op
If platelet count is less than 100,000 or hematocrit is less than 25, or if there is a 5 point decrea se in hematocrit, do not give the dose and call physician/designee.Hold for INR greater than or equal to 1.7 if receiving Coumadin therapy.
[facility] Medication administered onsite sevelamer carbonate 800 MG Oral Tablet sevelamer (RENV BRANDO) tablet 800 mg sevelamer (RENVELA) tablet 800 mg 05/07/2020 05:00:00 PM EST 800 mg Oral active 800 mg, Oral, 3 time s daily with meals, First dose on Tue05/07/[address] [facility] Medication administered onsite ondansetron (ZOFRAN) injection 4 mg [id number] 05/07/2020 03:44:1 9 PM EST 4 mg Intravenous active 4 mg, In travenous, Every 6 hours PRN, nausea, vomiting, Starting Tue05/07/20 at 1544, Post-op
If no response in 15-30 minutes then give metoclopramide 10 mg IV x 1 then q6h prn N/V.
[facility] Medication administered onsite 2 ML Metoclopramide 5 MG/ML Prefilled Sy ringe metoclopramide (REGLAN) injection 10 mg metoclopramide (REGLAN) injection 10 mg 05/07/2020 03:44:[address] 10 mg Intravenous active 10 mg, I ntravenous, Every 6 hours PRN, nausea, vomiting, Starting Tue05/07/20 at 1544, Post-op
Give once if no response to Zofran after 15-30 minutes, then q6h prn N/V.
[facility] Medication administered onsite acetaminophen (TYLENOL) 325 MG tablet 650 mg 03:44:19 PM EST 650 mg Oral active [Order 1 S tart] Name: acetaminophen (TYLENOL) 325 MG tablet 650 mg Signed Summary: 650 mg, Oral, Every 4 hours PRN, mild pain (1-3), for temperature > 101. Call MD/PA. May also give for headache., Starting Tue05/07/20 at 1544, Post-op
"Maximum dose of acetaminophen is 4,000 mg from all sources in 24 hours."
[Order 1 End] [Order 2 Start] Name: acetaminophen (TYLENOL) suppository 650 mg Signed Summary: 650 mg (1 suppository), Rectal, Every 4 hours PRN, mild pain (1-3), for temperature > 101. Call MD/PA. May also give for headache., Starting Tue05/07/20 at 1544, Post-op [Order 2 End] [facility] Medication administered onsite 10 ML Atropine Sulfate 0.1 MG/ML Prefill ed Syringe atropine sulfate injection 0.5 mg atropine sulfate injection 0.5 mg 05/07/2020 03:44:18 PM EST 0.5 mg active 0.5 mg, Intrave nous Push, Every 5 min PRN, other, As needed, for heart rate less than 60 BPM and the patient is hemodynamically unstable and/or SBP is less than 90mmHg, Starting Tue05/07/20 at 1544, For 1 day, Post-op
Not to exceed a total of 3 mg or 0.04 mg/kg. Max of [address]
[facility] Medication administered onsite Calcium Chloride 0.330203 MEQ/ML / Gluco se 0.6 MG/ML / Magnesium Chloride 0.4649867 MEQ/ML / Sodium Chloride 0.65245 MEQ/ML / Sodium Lactate 0.0016 MEQ/ML Intraperitoneal Solution [Dianeal Low Calcium 1.5] dianeal lo-walter 1.5% 10,000 mL dianeal lo-walter 1.5% 10,000 mL 05/07/2020 03:23:14 PM EST 65548 mL Intraperitoneal active 10,000 mL , Intraperitoneal, dialysis, per PD Cycler orders, Starting Tue05/07/20 at 1523
Solution as per C[employer] order. 5000 ml bags used ONLY for Cycler
[facility] Medication administered onsite Magnesium Chloride 0.18567 MEQ/ML / Pota ssium Chloride 0.0497 MEQ/ML / Sodium Acetate 0.0163 MEQ/ML / Sodium Chloride 0.0899 MEQ/ML / Sodium gluconate 5.02 MG/ML Injectable Solution [Normosol-R] electrolyte-R (NORMOSOL-R/PLASMALYTE-R) solution 1,000 mL electrolyte-R (NORMOSOL-R/PLASMALYTE-R) solution 1,000 mL 05/07/2020 03:00:00 PM EST 1000 mL Intravenous aborted at 100 mL/hr, 1,000 mL, Intravenous, Continuous, Starting Tue05/07/20 at 1500, PACU (only) [facility] Medication administered onsite midodrine hydrochloride 5 MG Oral Tablet midodrine (MA OAMATINE) tablet 10 mg midodrine (PROAMATINE) tablet 10 mg 05/07/2020 02:00:00 PM EST 10 mg Oral active 10 mg, Oral, 2 times daily, Firs t dose on Tue05/07/[address] [facility] Medication administered onsite cinacalcet 30 MG Oral Tablet cinacalcet (SENSIPAR) tab let 60 mg cinacalcet (SENSIPAR) tablet 60 mg 05/07/2020 02:00:00 PM EST 60 mg Oral active 60 mg, Oral, 3 times weekly (Once per day on Tue), First dose on Tue05/07/[address] [facility] Medication administered onsite Albuterol 0.83 MG/ML Inhalant Solution a lbuterol (PROVENTIL) nebulizer solution 2.5 mg albuterol (PROVENTIL) nebulizer solution 2.5 mg 2020 01:17:48 PM EST 2.5 mg active 2.5 mg, Nebulization, Every 6 hours PRN, shortness of breath, Starting Tue05/07/[address] [facility] Medication administered onsite Potassium Chloride 20 MEQ Extended Release Oral Tablet Potas sium Chloride ER 02/20/2020 12:00:00 AM EST ORAL active [facility] ([facility]) Nepro/Carbsteady 02/20/2020 12:00:00 AM EST a ctive [facility] ([facility]) midodrine hydrochloride 5 MG Oral Tablet Midodrine HCL 02/20/2020 12:00:00 AM EST ORAL active [facility] ([facility] clopidogrel 75 MG Oral Tablet [Plavix] Plavix 02/20/2020 12:00:00 AM EST ORAL active [facility] ([facility]) Cephalexin 500 MG Oral Tablet Cephalexin 02/20/2020 12:00:00 AM EST ORAL active [facility] ([facility]) cinacalcet 30 MG Oral Tablet [Sensipar] Sensipar 02/20/2020 12:00:0 0 AM EST ORAL active [facility] ([facility]) Nortriptyline 10 MG Oral Capsule Nortriptyline HCL 02/20/2020 12:00 :00 AM EST ORAL active [facility] ([facility]) latanoprost 0.05 MG/ML Ophthalmic Solution Latanoprost 02/20/2020 12:00:00 AM EST OPHTHALMIC active [facility] ([facility]) Povidone-Iodine 100 MG/ML Topical Solution Povidone-Iodine 02/20/2020 12:00:00 AM EST active [facility] ([facility]) Cephalexin 500 MG Oral Capsule [Keflex] Keflex 12/19/2019 12:00:0 0 AM EDT ORAL completed [facility] ([facility] ) clopidogrel 75 MG Oral Tablet [Plavix] Plavix 09/06/2019 12:00:00 AM EDT ORAL active [facility] ([facility] ) cinacalcet 30 MG Oral Tablet [Sensipar] Sensipar 08/27/2019 12:00:0 0 AM EDT ORAL completed [facility] ([facility]) atorvastatin 40 MG Oral Tablet Atorvastatin Calcium 08/27/2019 1 2:00:00 AM EDT ORAL active [facility] ( [facility]) clopidogrel 75 MG Oral Tablet Clopidogrel Bisulfate 08/21/2019 1 2:00:00 AM EDT ORAL completed [facility] ([facility]) COLLAGENASE 0.25 UNT/MG Topical Ointment [Santyl] Maura yl 250 UNIT/GM Santyl 250 UNIT/GM 08/03/2019 12:00:00 AM EDT active 1 application eCW1 ([facility]) sevelamer carbonate 800 MG Oral Tablet [Renvela] Renvela 06/10/2019 12:00:00 AM EST ORAL active [facility] ([facility] cinacalcet 30 MG Oral Tablet [Sensipar] Sensipar 06/10/2019 12:00:0 0 AM EST ORAL completed [facility] ([facility] Docusate Sodium 100 MG Oral Capsule [Colace] Colace 11/2019 12:00:00 AM EST ORAL active [facility] ( [facility]) clopidogrel 75 MG Oral Tablet Clopidogrel Bisulfate 06/10/2019 1 2:00:00 AM EST ORAL completed [facility] ([facility] [facility]) Ascorbic Acid 60 MG / Beta Carotene 5000 UNT / Copper Sulfate 40 MG / dl-alpha tocopheryl acetate 30 UNT / Sodium Selenite 0.04 MG / Zinc Oxide 40 MG Oral Tablet Multi For Him 50+ 06/10/2019 12:00:00 AM EST ORAL active [facility] ([facility]) Omeprazole 20 MG Delayed Release Oral Capsule [Prilosec] Whitney losec 06/10/2019 12:00:00 AM EST ORAL active M EDENT ([facility]) calcium acetate 667 MG Oral Capsule Calcium Acetate (Phos Bi nder) 06/10/2019 12:00:00 AM EST ORAL completed [facility] ([facility]) paricalcitol 0.001 MG Oral Capsule Paricalcitol 06/10/2019 12:00:00 A M EST ORAL completed [facility] ([facility] 24 HR Isosorbide Mononitrate 60 MG Extended Release Or al Tablet Isosorbide Mononitrate ER 06/10/2019 12:00:00 AM EST ORAL complete d [facility] ([facility]) Omeprazole 20 MG Delayed Release Oral Capsule [Prilosec] Whitney losec 01/15/2019 12:00:00 AM EDT ORAL completed [facility] ([facility]) cinacalcet 30 MG Oral Tablet [Sensipar] Sensipar 01/15/2019 12:00:0 0 AM EDT ORAL completed [facility] ([facility]) sevelamer carbonate 800 MG Oral Tablet [Renvela] Renvela 01/15/2019 12:00:00 AM EDT ORAL completed [facility] ([facility]) calcium acetate 667 MG Oral Capsule [Phoslo] Phoslo 12:00:00 AM EDT ORAL completed [facility] ([facility]) tiotropium 0.018 MG/ACTUAT Inhalant Powd er tiotropium (SPIRIVA HANDIHALER) 18 MCG inhalation capsule tiotropium (SPIRIVA HANDIHALER) 18 MCG i nhalation capsule 1 {capsule} Inhalation aborted Place 1 capsule into inhaler and inhale every evening [facility] 12 HR Guaifenesin 600 MG Extended Releas e Oral Tablet guaiFENesin (MUCINEX) 600 MG 12 hr tablet guaiFENesin (MUCINEX) 600 MG 12 hr tablet 600 mg Oral aborted Take 600 mg by mouth every 12 (twelve) hours as needed for congestion [facility] Albuterol 0.833 MG/ML / Ipratropium Brom brett 0.167 MG/ML Inhalant Solution ipratropium-albuterol (DUO-NEB) 0.5-2.5 mg/mL nebulizer ipratropium-albuterol (DUO-NEB) 0.5-2.5 mg/mL nebulizer Inhalation aborted Inhale as needed [facility] Prednisone 20 MG Oral Tablet predniSONE (DELTASONE) 20 MG tablet predniSONE (DELTASONE) 20 MG tablet 20 mg Oral aborted Take 20 mg by mouth daily [facility] Insurance Providers Payer name Policy type / Coverage type Policy ID Covered constitution party ID Covered constitution party's relationship to mae Policy Mae Plan Information MEDICARE [id number] SP [id number] FOR LIFE [id number] SP [id number] FOR LIFE HEA [id number] S [id number] MEDICARE MCA [id number] S [id number] MEDICARE MCA [id number] S [id number] MEDICARE [id number] [place] [id number] N93 [id number] Abiola [id number] INSURANCE COVID-19 COVID Abiola C OVID [id number] MEDICARE [id number] MEDICARE [id number] [place]ola [id number] N93 [id number] Abiola [id number] MEDICARE PART A-O/P [id number] 18 [id number] FOR LIFE-O/P [id number] 18 [id number] INSURANCE COVID-19 [id number] HEA [id number] S [id number] 'S ADMINISTRATION [id number] SP [id number] FOR LIFE O [id number] S [id number] MEDICARE C [id number] S [id number] N93 MEDICARE [id number] SP [id number] N93 FOR LIFE [id number] SP [id number] [facility]/136E O [id number] S [id number] MEDICARE PART A -CLINIC [id number] 18 [id number] FOR LIFE [id number] 18 [id number] MEDICARE PART A [facility] [id number] 18 [id number] For Life - WPS Medigap Part B [id number] Self [id number] Medicare (Part B) Medicare Primary [id number] Self [id number] For Life - WPS Medigap Part B [id number] Self [id number] Medicare (Part B) Medicare Primary [id number] Self [id number] MEDICARE [id number] SP [id number] A For Life - WPS Medigap Part B [id number] Self [id number] Medicare (Part B) Medicare Primary [id number] Self [id number] FOR LIFE U [id number] Self [id number] OTHER B TRANSPLANT Self TRANSPLAN T MEDICARE A [id number] Self [id number] A MEDICARE [id number] SP [id number] A For Life - WPS Medigap Part B [id number] Self [id number] Medicare (Part B) Medicare Primary [id number] Self [id number] MEDICARE PART A-O/P [id number] 18 [id number] For Life - WPS Medigap Part B [id number] Self [id number] Medicare (Part B) Medicare Primary [id number] Self [id number] WPS For Life Medigap Part B [id number] Self [id number] Medicare [facility] Medicare Primary [id number] Self [id number] WPS For Life Medigap Part B [id number] Self [id number] Medicare [facility] Medicare Primary [id number] Self [id number] WPS For Life Medigap Part B [id number] Self [id number] Medicare [facility] Medicare Primary [id number] Self [id number] FOR LIFE U [id number] Self [id number] MEDICARE -O/P [id number] 18 [id number] [facility] ([place]) Medigap Part B Self Medicare [facility] Medicare Primary Self OTHER B [id number] Self [id number] [facility] O [id number] S [id number] MEDICARE INPATIENT M [id number] S [id number] [facility] [id number] SP [id number] Problems, Conditions, and Diagnoses Code Display Name Description Problem Type Effective Dates Data Source(s) N18.6 ESRD on peritoneal dialysis ESRD on peritoneal dialysi s [id number] 05/07/2020 12:00:00 AM [facility] 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 [id number] 05/07/2020 12:00:00 AM [facility] 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, left Hx of BKA, left [id number] 05/07/2020 12:0 0:00 AM [facility] I73.9 Peripheral vascular disease Peripheral vascular diseas e [id number] 05/07/2020 12:00:00 AM [facility] I25.10 Coronary artery disease Coronary artery disease 224708 05/07/2020 12:00:00 AM [facility] E78.5 Hyperlipidemia Hyperlipidemia [id number] 05/07/2020 12:00: 00 AM [facility] I10 Hypertension Hypertension [id number] 05/07/2020 12:00:00 A M [facility] I35.0 Nonrheumatic aortic valve stenosis Nonrheumatic aortic valve stenosis [id number] 04/16/2020 12:00:00 AM [facility] S90.211D [id number] Contusion of right g reat toe with damage to nail, subsequent encounter Problem 08/08/2019 12:00:00 AM EDT eCW1 ([facility]) S90.211D [id number] Contusion of right g reat toe with damage to nail, subsequent encounter Problem 08/08/2019 12:00:00 AM EDT eC1 ([facility]) L97.524 [id number] Non-pressure chronic ulcer of other part of left foot with necrosis of bone Problem 06/01/2019 12:00:00 AM EST [facility] ([facility]) I70.245 [id number] 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 with ulceration of other part of foot Problem 06/01/2019 12:00:00 A M EST [facility] ([facility]) L97.524 [id number] Non-pressure chronic ulcer of other part of left foot with necrosis of bone Problem 06/01/2019 12:00:00 AM EST [facility] ([facility]) I70.245 [id number] 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 with ulceration of other part of foot Problem 06/01/2019 12:00:00 A M EST [facility] ([facility]) I35.0 Nonrheumatic aortic (valve) stenosis Nonrheumati c aortic (valve) stenosis Diagnosis 05/07/2020 09:21:00 AM [facility] U07.1 COVID-19 COVID-19 Diagnosis 2020 01:21:[address] [facility] R99 Ill-defined and unknown cause of mortali ty Ill-defined and unknown cause of mortality Diagnosis 2020 10:03:00 AM [facility] I35.0 Nonrheumatic aortic (valve) stenosis Nonrheumati c aortic (valve) stenosis Diagnosis 04/15/2020 11:36:23 AM [facility] Personal history of nicotine dependence Personal history of nicotine dependence Diagnosis 03/29/2020 07:36:00 PM [facility] Z58305 Other retirement (current) drug therapy O ther retirement (current) drug therapy Diagnosis 03/29/2020 07:36:00 PM [facility] Z7902 MCC (current) use of antithromboti cs/antiplatelets ad terminal makeup operator (current) use of antithrombotics/antiplatelets Diagnosis 020 07:36:00 PM [facility] Z7982 ad terminal makeup operator (current) use of aspirin ad terminal makeup operator (cu rrent) use of aspirin Diagnosis 03/29/2020 07:36:00 PM [facility] Z8546 Personal history of malignant neoplasm o f prostate Personal history of malignant neoplasm of prostate Diagnosis 03/29/2020 07:36:00 PM [facility] Z992 Dependence on renal dialysis Dependence on renal dialy sis Diagnosis 03/29/2020 07:36:00 PM [facility] J449 Chronic obstructive pulmonary disease, u nspecified Chronic obstructive pulmonary disease, unspecified Diagnosis 03/29/2020 07:36:00 PM [facility] 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 Diagnosis 03/29/2020 07:36:00 PM [facility] I132 Hypertensive heart and chron ic kidney disease with heart failure and with stage 5 chronic kidney disease, or end stage renal disease Hypertensive heart and chronic kidney disease with heart failure and with stage 5 chronic kidney disease, or end stage renal disease Diagnosis 03/29/2020 07:36:00 PM E [facility] I252 Old myocardial infarction Old myocardial infarction Di agnosis 03/29/2020 07:36:00 PM [facility] E875 Hyperkalemia Hyperkalemia Diagnosis 03/29/2020 07:36:00 P M [facility] R0902 Hypoxemia Hypoxemia Diagnosis 03/29/2020 07:36:00 PM [facility] N186 End stage renal disease End stage renal disease Diagno sis 03/29/2020 07:36:00 PM [facility] I501 Left ventricular failure, unspecified Le ft ventricular failure, unspecified Diagnosis 03/29/2020 07:36:00 PM [facility] R0600 Dyspnea, unspecified Dyspnea, unspecified Diagnosis 03/29/2020 07:36:00 PM [facility] I120 Hypertensive chronic kidney disease with stage 5 chronic kidney disease or end stage renal disease Hypertensive chronic kidney disease with stage 5 chronic kidney disease or end stage renal disease Diagnosis 02/09/2020 04:08: 00 AM [facility] J441 Chronic obstructive pulmonary disease wi th (acute) exacerbation Chronic obstructive pulmonary disease with (acute) exacerbation Diagnosis 02/09/2020 04:08:00 AM [facility] Z23 Encounter for immunization Encounter for immunization Diagnosis 02/03/2020 12:33:00 AM EDT [facility] I10 Essential (primary) hypertension Essential (primary) h ypertension Diagnosis 02/03/2020 12:33:00 AM EDT [facility] E119 Type 2 diabetes mellitus without complic ations Type 2 diabetes mellitus without complications Diagnosis 02/03/2020 12:33:00 AM EDT [facility] J209 Acute bronchitis, unspecified Acute bronchitis, unspec ified Diagnosis 02/03/2020 12:33:00 AM EDT [facility] T77381 Cough variant asthma Cough variant asthma Diagnosis 02/03/2020 12:33:00 AM EDT [facility] R05 Cough Cough Diagnosis 02/03/2020 12:33:00 AM ED T [facility] Z905 Acquired absence of kidney Acquired absence of kidney Diagnosis 07/26/2019 10:28:00 AM EDT [facility] R7989 Other specified abnormal findings of blo od chemistry Other specified abnormal findings of blood chemistry Diagnosis 07/26/2019 10:28:00 AM EDT [facility] E876 Hypokalemia Hypokalemia Diagnosis 07/26/2019 10:28:00 AM EDT [facility] 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) Diagnosis 07/26/2019 10:28:00 AM EDT [facility] I214 Non-ST elevation (NSTEMI) myocardial inf arction Non-ST elevation (NSTEMI) myocardial infarction Diagnosis 07/26/2019 10:28:00 AM EDT [facility] R6521 Severe sepsis with septic shock Severe sepsis with sep tic shock Diagnosis 07/26/2019 10:28:00 AM EDT [facility] A419 Sepsis, unspecified organism Sepsis, unspecified organ ism Diagnosis 07/26/2019 10:28:00 AM EDT [facility] I509 Heart failure, unspecified Heart failure, unspecified Diagnosis 05/01/2019 12:53:00 PM [facility] Z91485 Cellulitis of left toe Cellulitis of left toe Diagnosi s 05/01/2019 12:53:00 PM [facility] Z4889 Encounter for other specified surgical a ftercare Encounter for other specified surgical aftercare Diagnosis 04/10/2019 03:45:00 PM [facility] P34165 Pain in left foot Pain in left foot Diagnosis 04/03/2019 10:03:00 AM [facility] L600 Ingrowing nail Ingrowing nail Diagnosis 04/03/2019 10:03: 00 AM [facility] L84 Corns and callosities Corns and callosities Diagnosis 04/03/2019 10:03:00 AM [facility] 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 Nail dystrophy Diagnosis 04/03/2019 10:03: 00 AM [facility] B351 Tinea unguium Tinea unguium Diagnosis 04/03/2019 10:03:00 AM [facility] I739 Peripheral vascular disease, unspecified Peripheral vascular disease, unspecified Diagnosis 04/03/2019 10:03:00 AM [facility] Surgeries/Procedures Procedure Description Date Indications Data Source(s) GLUC BLD GLUC MNTR DEV CLEARED FDA SPEC HOME USE POCT GLUCOSE Routine 05/08/2020 8:26 AM EST 05/08/2020 01:26:00 PM [facility] BLOOD COUNT COMPLETE AUTOMATED CBC Timed 05/08/2020 6:20 A M EST 05/08/2020 11:20:00 AM [facility] BASIC METABOLIC PANEL CALCIUM TOTAL BASIC METABOLIC PANEL Timed 05/08/2020 6:20 AM EST 05/08/2020 11:20:00 AM EST [facility] ECG ROUTINE ECG W/LEAST 12 LDS TRCG ONLY W/O I&R ECG 12-LEAD Routine 05/07/2020 2:20 PM EST 05/07/2020 07:20:[address] [facility] XR CHEST PORTABLE XR CHEST PORTABLE STAT 05/07/2020 2:04 PM EST 05/07/2020 07:04:[address] [facility] PROTHROMBIN TIME PROTIME-INR STAT 05/07/2020 1:54 PM EST 05/07/2020 06:54:[address] [facility] BLOOD COUNT COMPLETE AUTOMATED CBC STAT 05/07/2020 1:54 P M EST 05/07/2020 06:54:[address] [facility] MAGNESIUM MAGNESIUM STAT 05/07/2020 1:54 PM EST 05/07/2020 06:54:[address] [facility] BASIC METABOLIC PANEL CALCIUM TOTAL BASIC METABOLIC PANEL STAT 05/07/2020 1:54 PM EST 05/07/2020 06:54:00 PM EST [facility] CARDIAC CATHETERIZATION CARDIAC CATHETERIZATION Routine 05/07/2020 1:23 PM EST Nonrheumatic aortic valve stenosis 05/07/2020 06:23:00 PM ES T Nonrheumatic aortic valve stenosis [facility] Nonrheumatic aortic valve stenosis POC ACT POC ACT Routine 05/07/2020 1:02 PM EST 021 06:02:[address] [facility] ECG TRANSESOPHAG R-T 2D W/PRB IMG ACQUISJ I&R ECHOCARDIOGRA M TRANSESOPHAGEAL Routine 05/07/2020 10:36 AM EST 05/07/2020 03:36:[address] [facility] GLUC BLD GLUC MNTR DEV CLEARED FDA SPEC HOME USE POCT GLUCOSE Routine 05/07/2020 9:34 AM EST 05/07/2020 02:34:[address] [facility] ECG ROUTINE ECG W/LEAST 12 LDS TRCG ONLY W/O I&R ECG 12-LEAD Routine 2020 3:08 PM EST Nonrheumatic aortic valve stenosis 2020 08:08:15 PM ES T Nonrheumatic aortic valve stenosis [facility] Nonrheumatic aortic valve stenosis NT PRO BNP NT PRO BNP Routine 2020 2:40 PM EST Nonrheumatic aortic valve stenosis 2020 07:40:00 PM ES T Nonrheumatic aortic valve stenosis [facility] Nonrheumatic aortic valve stenosis THROMBOPLASTIN TIME PARTIAL PLASMA/WHOLE BLOOD APTT Routine 2020 2:40 PM EST Nonrheumatic aortic valve stenosis 2020 07:40:00 PM ES T Nonrheumatic aortic valve stenosis [facility] Nonrheumatic aortic valve stenosis PROTHROMBIN TIME PROTIME-INR Routine 2020 2:40 PM EST Nonrheumatic aortic valve stenosis 2020 07:40:00 PM ES T Nonrheumatic aortic valve stenosis [facility] Nonrheumatic aortic valve stenosis BLOOD COUNT COMPLETE AUTO&AUTO DIFRNTL WBC COUNT CBC AND DIFFER ENTIAL Routine 2020 2:40 PM EST Nonrheumatic aortic valve stenosis 2020 07:40:00 PM ES T Nonrheumatic aortic valve stenosis [facility] Nonrheumatic aortic valve stenosis HEPATIC FUNCTION PANEL HEPATIC FUNCTION PANEL Routine 021 2:40 PM EST Nonrheumatic aortic valve stenosis 2020 07:40:00 PM ES T Nonrheumatic aortic valve stenosis [facility] Nonrheumatic aortic valve stenosis COMPREHENSIVE METABOLIC PANEL COMPREHENSIVE METABOLIC PANEL Rou irma 2020 2:40 PM EST Nonrheumatic aortic valve stenosis 2020 07:40:00 PM ES T Nonrheumatic aortic valve stenosis [facility] Nonrheumatic aortic valve stenosis ROOM TEMP AB SCREEN ROOM TEMP AB SCREEN Routine 2020 2 :07 PM EST Nonrheumatic aortic valve stenosis 2020 07:07:00 PM ES T Nonrheumatic aortic valve stenosis [facility] Nonrheumatic aortic valve stenosis BLOOD TYPING ABO TYPE AND SCREEN Routine 2020 2:07 PM EST Nonrheumatic aortic valve stenosis 2020 07:07:00 PM ES T Nonrheumatic aortic valve stenosis [facility] Nonrheumatic aortic valve stenosis HEMOGLOBIN GLYCOSYLATED A1C HEMOGLOBIN A1C Routine 2020 2:07 PM EST Nonrheumatic aortic valve stenosis 2020 07:07:00 PM ES T Nonrheumatic aortic valve stenosis [facility] Nonrheumatic aortic valve stenosis PULMONARY FUNCTION TEST PULMONARY FUNCTION TEST Routine 04/16/2020 11:14 AM EST Nonrheumatic aortic valve stenosis 04/16/2020 04:14:03 PM ES T Nonrheumatic aortic valve stenosis [facility] Nonrheumatic aortic valve stenosis Doppler Echocardiography Complete 04/07/2020 12:00:00 AM EST [facility] ([facility]) Doppler Echocardiography Color Flow Velocity Mapping 04/07/2020 12:00:00 AM EST [facility] ([facility]) ECHO Transthoracic Inc Performance Continuous Electrocardio 04/07/2020 12:00:00 AM EST [facility] ([facility]) Catheter Placement In Coronary Artery 04/03/2020 12:00 :00 AM EST [facility] ([facility]) Electrocardiogram Interpretation & Report Only 020 12:00:00 AM EST [facility] ([facility]) Echocardiography, Tranthoracic Real-Time Image Documentation 03/31/2020 12:00:00 AM EST [facility] ([facility]) Electrocardiogram Interpretation & Report Only 020 12:00:00 AM EST [facility] ([facility]) ECG ROUTINE ECG W/LEAST 12 LDS W/I&R 02/21/2020 12:00: 00 AM EST [facility] ([facility]) Echocardiography, Tranthoracic Real-Time Image Documentation 02/11/2020 12:00:00 AM EST [facility] ([facility]) Amputation Below Knee 11/21/2019 12:00:00 AM EDT MEDENT ([facility]) Insertion Of Tunneled Centrally Inserted Central Venous Cath eter 11/21/2019 12:00:00 AM EDT [facility] ([facility]) Ultrasound Guidance For Vascular Access Requiring Ultrasound Eval 11/21/2019 12:00:00 AM EDT [facility] ([facility]) AMPUTATION TOE METATARSOPHALANGEAL JOINT 09/14/2019 12 :00:00 AM EDT MED[facility] ([facility]) Revascularization,Endovascular,Transluminal Angioplasty 09/05/2019 12:00:00 AM EDT [facility] ([facility]) REVSC OPN/PRQ TIB/INA W/ANGIOPLASTY UNI 09/05/2019 12 :00:00 AM EDT [facility] ([facility]) REVSC OPN/PRQ TIB/INA W/ANGIOPLASTY UNI EA VSL 2019 12:00:00 AM EDT [facility] ([facility]) REVSC OPN/PRQ TIB/INA W/ANGIOPLASTY UNI EA VSL 2019 12:00:00 AM EDT MED[facility] ([facility]) Moderate Sedation Services; Same Phys Intl 15 Mins; PT >= 5 Years 09/05/2019 12:00:00 AM EDT [facility] ([facility]) ECG ROUTINE ECG W/LEAST 12 LDS W/I&R 08/28/2019 12:00: 00 AM EDT MED[facility] ([facility]) Office Visit, Est Pt., Level 3 PC 08/24/2019 12:00:00 AM EDT eCW1 ([facility]) Office Visit, Est Pt., Level 3 FC 08/24/2019 12:00:00 AM EDT eCW1 ([facility]) ACTIVE WOUND CARE/20 CM OR < 08/03/2019 12:00:00 AM ED T eCW1 ([facility]) TeleMedicine Est. Pt. Level 1 07/20/2019 12:00:00 AM E DT eCW1 ([facility]) TeleMedicine Est. Pt. Level 2 07/06/2019 12:00:00 AM E DT eCW1 ([facility]) EB SUBQ TISSUE 20 SQ CM/< 06/29/2019 12:00:00 AM EDT eCW1 ([facility]) REMOVAL OF NAIL BED 06/29/2019 12:00:00 AM EDT eCW1 ([facility]) Office Visit, New Pt., Level 3 FC 06/01/2019 12:00:00 AM EST eCW1 ([facility]) Office Visit, New Pt., Level 3 PC 06/01/2019 12:00:00 AM EST eCW1 ([facility]) EB BONE 20 SQ CM/< 06/01/2019 12:00:00 AM EST eCW1 ([facility]) Removal Tunneled Central Venous Access Dev W/Sub Port/Pump 05/24/2019 12:00:00 AM EST MEDENT ([facility], ) REVSC OPN/PRQ FEM/POP W/STNT/ANGIOP [facility] 05/24/2019 12:00:00 AM EST MEDENT ([facility], ) REVSC OPN/PRQ TIB/INA W/STNT/ANGIOP [facility] 05/24/2019 12:00:00 AM EST [facility] ([facility], ) Angiography Extremity Unilateral 05/24/2019 12:00:00 A M EST MED[facility] ([facility], ) Results ID Date Data Source [id number] 05/19/2020 02:00:00 PM EST [facility] Name Value Range Interpretation Code Description Data Kevin rce(s) Supporting Document(s) SARS coronavirus 2 RNA Not Detected [facility] [place] This lab was ordered by [facility] and reported by [facility]. ID Date Data Source [id number] 05/14/2020 08:36:16 PM EST [facility] INFORMATIONPatient MRN Name Date of Age Gend*PT [id number] Abimael Cassidy Manjula 1940 80 years M SDCXPT Location Admission Date/Time Visit ID Attending [id number] 05/07/20 09 --- --- EPI ID CSN Admitting Provider [id number] Duane Beatty MD([id number]) Attestation signed by Yuliana Aguilar MD at 05/14/2020 8:36 PMI saw and evaluated the patient and reviewed PA/FRAME MAKER's note. I agree with thehistory, physical and medical decision making.Yuliana Aguilar MD:36 PM --Physician Discharge Summary Cassidy Fair AbimaelN: [id number] date: 05/07/2020ttending Physician: Duane Beatty MDAdmission Diagnosis: Nonrheumatic aortic valve stenosisSecondary Diagnoses: Principal Problem: Nonrheumatic aortic valve stenosisActive Problems: Hypertension Hyperlipidemia Coronary artery disease Peripheral vascular disease Hx of BKA, left Gangrene due to peripheral vascular disease ESRD on peritoneal dialysisPrinciple Procedures:Transfemoral aortic valvuloplastyIndication for Admission:80 years old AA male with a history of CAD, HTN, HLD, CHF, ischemiccardiomyopathy, pericardial effusion, peripheral vascular disease s/p left BKA,dry gangrene of right great toe, COPD, depression, hiatal hernia, renal cancers/p bilateral nephrectomy, ESRD on peritoneal dialysis, anemia, prostate cancerand nonrheumatic aortic valve stenosis who experienced shortness of breath about3 weeks ago and was admitted to [facility] with congestive heart failure.Cardiac catheterization dated 04/03/2020 concluded significant one- vesselcoronary artery disease and EF 20%. Calcium score revealed severe aorticstenosis. Patient tells me shortness of breath improved after hospitalization.He denies any chest pain, chest tightness, palpitations, PND, peripheral edema,lightheadedness, dizziness or syncope. With the above findings he was referredto [facility] clinic for surgical intervention.The patient met with Dr. Beatty and options were discussed. The patient'scase was also discussed at the multi-disciplinary structural heart conferenceand the team felt that at this time, an aortic valvuloplasty would be the bestoption prior to his R BKA.Hospital Course & Complications:The patient came to the hospital the morning of his procedure on 05/07/20. Heunderwent an aortic valvuloplasty: Procedures: 1. Successful balloon aortic valvuloplasty done with a 23 mm Bard balloonthrough right femoral approach. TECHNIQUE: The patient was brought to the operating room in a fasting state.Bilateral femoral access was obtained.Right internal jugular venous access was obtained and a temporary transvenouspacer wire was advanced and appropriate capturing was confirmedTwo pre Perclose suture was deployed in the right femoral artery.A 6 Singaporean pigtail catheter was advanced through the left femoral artery.The aortic valve was crossed with a JR4 catheter and a Confida wire was advancedto the left ventricular apex.A pigtail was advanced into the left ventricle. Simultaneous pressures wererecorded and this showed MG to be 18 mmHg.BAV was performed successfully under rapid pacing with a 23 mm Bard balloon.Post deployment pipe revealed trace aortic insufficiency and simultaneouspressure showed MG to be 13 mmHg. The procedure was therefore deemedsuccessful.The 2 pre Perclose suture on the right side with sutured with excellenthemostasis,Likewise another Perclose was deployed in the left femoral artery with excellenthemostasis.The patient tolerated the procedure very well Primary Access Site: right femoral arteryClosure: Perclose Estimated Blood Loss: NoneComplications: NoneSedation: Fentanyl and VersedSpecimens: NoneImplants: NoneContrast Used: see scanned cath report document under the media tab.Following the procedure, the patient was brought to the recovery room. Heremained in SR. His TVP was discontinued in the recovery room. After meetingcriteria, the patient was brought to a cardiac telemetry floor. Nephrology wascalled to help with the patient's peritoneal dialysis.On 05/08, the patient feels well. He had peritoneal dialysis overnight. His H/H isimproved from yesterday. His groin sites are stable and without hematomas. Hehad no bradyarrhythmias overnight. The patient will be discharged to home today.He has a follow-up in Dr. Beatty's office on 05/22/20. This was discussed withthe patient and his veronaanceAlice, and all questions were answered.Past Medical History:Past Medical History:Diagnosis Date Anemia CHF (congestive heart failure) COPD (chronic obstructive pulmonary disease) Coronary artery disease f/u by Ddr. Buenrostro Depression Diabetes mellitus history of, improved after weight loss Dry gangrene right great toe ESRD (end stage renal disease) f/u by Dr. Forman on PD Heart valve disease Hepatitis Patient reports hepatitis in [place] when he was in service. Hiatal hernia Hyperlipidemia Hypertension Ischemic cardiomyopathy Nonrheumatic aortic (valve) stenosis Nonsustained ventricular tachycardia Pericardial effusion Peripheral vascular disease Personal history of kidney cancer 2008 s/p bilateral nephrectomy Prostate cancer 1994 s/p prostatectomyMost Recent Labs:BMP:Lab ResultsComponent Value Date NA 141 05/08/2020 K 4.5 05/08/2020 CL 101 05/08/2020 CO2 29 05/08/2020 ANIONGAP 11 05/08/2020 CALCIUM 9.3 05/08/2020 GLU 115 (H) 05/08/2020 BUN 40 (H) 05/08/2020 CREATININE 10.20 (HH) 05/08/2020 GFRAA 6 (L) 05/08/2020 GFRNONAA 5 (L) 05/08/2020BC without Diff:Lab ResultsComponent Value Date WBC 6.8 05/08/2020 RBC 2.99 (L) 05/08/2020 HGB 9.3 (L) 05/08/2020 HCT 28.4 (L) 05/08/2020 MCV 95.0 05/08/2020 MCH 31.3 05/08/2020 MCHC 33.0 05/08/2020 RDW 16.4 (H) 05/08/2020 PLT 156 05/08/2020 MPV 9.9 05/08/2020Medications:Your medication listCONTINUE taking these medications Instructions Last Dose Given Morning Afternoon Evening Bedtime As Neededacetaminophen 500 MG tabletCommonly known as: TYLENOL Take 1,000 mg by mouth daily as needed for painalbuterol (2.5 MG/3ML) 0.083% nebulizer solutionCommonly known as: PROVENTIL Take 2.5 mg by nebulization every 6 (six) hours as needed for shortness ofbreathaspirin EC 81 MG EC tablet Take 81 mg by mouth dailyatorvastatin 40 MG tabletCommonly known as: LIPITOR Take 40 mg by mouth dailycinacalcet 60 MG tabletCommonly known as: SENSIPAR Take 60 mg by mouth 3 (three) times a week On Tuesday, Tuesday, and Tuesdayclopidogrel 75 MG tabletCommonly known as: PLAVIX Take 75 mg by mouth dailydocusate sodium 100 MG capsuleCommonly known as: COLACE Take 200 mg by mouth dailyEpogen 73358 UNIT/ML injectionGeneric drug: epoetin alyson Inject under the skin every 14 (fourteen) daysmidodrine 10 MG tabletCommonly known as: PROAMATINE Take 10 mg by mouth 2 (two) times a daymidodrine 5 MG tabletCommonly known as: PROAMATINE Take 5 mg by mouth every eveningnortriptyline 10 MG capsuleCommonly known as: PAMELOR Take 30 mg by mouth 2 (two) times a dayNovaSource Renal Liqd Take 1 Can by mouth dailyomeprazole 20 MG capsuleCommonly known as: PriLOSEC Take 20 mg by mouth dailyPERITONEAL DIALYSIS SOLUTIONS IP Inject into the abdomen / abdominal cavitypotassium chloride SA 10 MEQ tabletCommonly known as: K-DUR,KLOR-CON Take 10 mEq by mouth dailysevelamer 800 MG tabletCommonly known as: RENVELA Take 800 mg by mouth 3 (three) times a day with mealsDischarge Exam:Vitals: Temp: [96.8 F-98.3 F] 98.1 FHeart Rate: [75-98] 83Resp: [8-25] 18BP: (116-162)/(49-81) 124/75Arterial Line BP: (115-129)/(45-51) 129/51General appearance: alert, appears younger than stated age and cooperativeLungs: Clear to auscultation bilaterally. No wheezes, rales or rhonchi. No coughon exam.Heart: S1, S2 normal, soft murmur, no click, rub or gallopAbdomen: Soft, nontender, bowel sounds present.Extremities: No edema in RLEWound/Incision: Bilateral groin sites clean, dry and intact. Soft and withouthematomas bilaterally.Discharged Condition:goodDisposition: Home or Self CareFollow Up: Dr. Beatty on 05/22/20 with an echocardiogramSignature: Ashtyn Gupta, NPDate: May 08, 2020Time: 10:51 AM Name Value Range Interpretation Code Description Data Kevin rce(s) Supporting Document(s) ID Date Data Source [id number] 05/08/2020 08:33:59 AM EST [facility] Name Value Range Interpretation Code Description Data Kevin rce(s) Supporting Document(s) POC NOVA GLU 124 mg/dL (70-99) H [facility] [place] [facility] BY [facility] ID Date Data Source [id number] 05/08/2020 08:32:18 AM EST [facility] Name Value Range Interpretation Code Description Data Kevin rce(s) Supporting Document(s) SODIUM 141 mmol/L (136-145) [facility]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 Progressive shortness of breath due to aortic stenosis no coughingno sputumCardiovascular: Severe aortic stenosisGastrointestinal: No upper or lower GI bleedingEndocrine: Hypertension diabetes mellitusGenitourinary: No dysuria hematuriaMuskoskelatal: Patient has history of BKA on the left side due toatherosclerosisSkin: No psoriasis no eczemaAllergic/ Immunologic: No allergic immunologic diseasesNeurological: No upper or lower extremity weakness but the patient hasgeneralized weaknessHematological: No anemia or bleeding disorderPHYSICAL EXAMINATION:BP 102/60 (BP Location: Right upper arm, Patient Position: Sitting) | Resp 16Lungs: No Rales no rhonchi no wheezing.Cardiac: 4/6 systolic murmur in the aortic focus.Abdomen: Bowel sounds within normal limit no rigidity no tenderness no mass noorganomegaly.Extremities: No peripheral edema BKA on the left side.Neck: Trachea midline no neck lymphadenopathy no scapular node involvementEyes: Conjunctiva is not anemic sclera nonictericNeurologic: Upper lower extremity have equal strength no unilateral weaknessExamination of Joints: No redness no tenderness.Chest: Stable sternal symmetrical no lesions.Skin: No rashes no lesions.DIAGNOSTIC DATA: EchocardiogramIMPRESSION: Severe aortic stenosis multiple problems including diabetes mellitusstatus post BKA on the left side status post bilateral kidney removal end-stagerenal failure dialysisPLAN: The patient needs aortic valve replacement bed definitely the patient ismore suitable for TAVR rather than conventional surgery patient is much morehigh risk for conventional aortic valve replacementI spoke with the patient and the family about all choices of treatment(including no treatment or medical therapy and all possible complications) andand aortic valve replacement conventional vs TAVR and their possiblecomplications including but not limited to bleeding, infections, arrhytmia,allergy, TN, organ failure and and also nerve injury including but notlimited to, phrenic nerve injury and the consequences and the fact that thepatient may not be able to do activities she/he wants to do or used to do. Bloodand product transfusion and their possible complications including but notlimited to AIDS and hepatitis and possible mediastinitis and possible muscleflap for non union of the sternum need for tracheostomy and gastrostomy feedingtube and prolonged hospital stay and dying from any of these complications. Thepatient and the family indicated understood and agreed to surgery. In the caseof TAVR it can turn into a disassterous open heart surgery.Yuliana Aguilar MD Name Value Range Interpretation Code Description Data Kevin rce(s) Supporting Document(s) ID Date Data Source [id number] 04/15/2020 01:44:00 PM EST [facility]: ULTR ASOUND CAROTID DUPLEXCLINICAL HISTORY: TAVR study.COMPARISON: No priors available for comparison.TECHNIQUE: Duplex sonography was utilized for evaluation of the carotid arteries. Percent stenosis is determined using NASCET criteria.FINDINGS: RIGHT:CCA PS: 54 cm/secICA PS: 130 cm/secICA ED: 50 cm/secECA PS: 46 cm/secVertebral: 27 cm/sec, antegradeRatio: ICA/CCA: 2.4ICA Stenosis: 50 to 69%LEFT:CCA PS: 62 cm/secICA PS: 111 cm/secICA ED: 44 cm/secECA PS: 63 cm/secVertebral: 55 cm/sec, antegradeRatio: ICA/CCA: 1.8ICA Stenosis: Less than 50%Comments: There is extensive calcific plaque involving the distal common and origin of internal carotid arteries, right greater than left.IMPRESSION: 50 to 69% right internal carotid artery stenosis.Less than 50% left internal carotid artery stenosis.Dictated by: DONTRELL JANE M.D. on 04/15/2020lectronically Signed by: DONTRELL JANE M.D. on 04/15/2020 03:15 PMTranscribed by: on 04/15/2020 03:10 PMCDS G code: ,CDS Modifier: ,cc: Name Value Range Interpretation Code Description Data Kevin rce(s) Supporting Document(s) ID Date Data Source [id number] 04/15/2020 01:11:00 PM EST [facility] A NGIO CHEST ABDOMEN PELVIS TAVRCLINICAL HISTORY: TAVR study.COMPARISON: No priors available for comparison.TECHNIQUE: ECG gated images were obtained through the chest. Non gated CTA of the chest abdomen pelvis was performed. Multiplanar and maximum intensity projection reconstructions were done. The study was reviewed on a 3 dimensional workstation. Patient received 115 cc of Isovue 370.FINDINGS: CTA Chest: The thoracic aorta is normal in caliber and free of significant tortuosity. There is mild aortic valvular calcification. Extensive coronary arterial calcification is seen.No significant hilar or mediastinal adenopathy. There is a small left pleural effusion and minimal passive atelectasis at the left lung base. Minimal passive atelectasis is present at the right lung base.Incidental note is made of thyroid enlargement. Multiple small subcentimeter nodules are present within the thyroid gland which are of doubtful concern and may represent cysts.Bilateral gynecomastia is noted.CTA Abdomen and Pelvis: The abdominal aorta is normal in caliber.The celiac artery is patent. There is dense calcific plaque at the origin of the superior mesenteric artery somewhat limiting evaluation for luminal stenosis. There is at least 70 % stenosis of the SMA. The inferior mesenteric artery is patent.Status post bilateral nephrectomies.The common internal and external iliac arteries are patent. Common femoral arteries appear patent bilaterally. No significant tortuosity. There is no aneurysmal dilation of the aorta.There is a large amount of free fluid within the abdomen. A Tenckhoff catheter is present. This may represent residual dialysate.Liver spleen and pancreas appear intact. The adrenal glands are normal in size.Visualized bowel loops appear unremarkable.IMPRESSION: CTA Chest:Small left pleural effusion and minimal passive atelectasis at the left lung base. Extensive coronary arterial calcification is noted. No significant aortic tort uosity. No aortic aneurysm.CTA Abdomen and Pelvis: All access vessels are patent. Moderate amount of free fluid within the abdomen likely representing residual dialysate.Superior mesenteric artery stenosis which is difficult to quantify due to large amount of calcific plaque in this area. This is on the order of 70% or greater.Aortic valve/annular measurements for TAVR are supplied by cardiology.Dictated by: DONTRELL JANE M.D. on 1 Transcribed by: renetta on 04/15/2020 02:38 PMCDS G code: , , ,CDS Modifier: , , ,cc: Name Value Range Interpretation Code Description Data Kevin rce(s) Supporting Document(s) ID Date Data Source [id number] 04/09/2020 03:50:00 PM EST [id number] [place], [place] [address]IQ[place]I NAME: CASSIDY VARGHESEDATE OF : 1940REPORT: CONSULTATIONPATIENT NUMBER: [id number] STATUS: IPMEDICAL RECORD NUMBER: [id number]: 02CARDIOLOGY CONSULTATIONDATE OF CONSULTATION: 1REASON FOR CONSULTATION: Severe aortic stenosis.HISTORY OF PRESENT ILLNESS: This is a 79-year-old gentleman who sees mypartner Dr. Sung. He has a known history of end-stage renal disease.He has been on chronic peritoneal dialysis for the last 10 years. 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 He was initially admitted on03/30/2020 when he was complaining of increasing shortness of breath. Thishad been happening 1 day prior to admission and [facility] He had no associated fevers or chills, coughing,phlegm production and he was doing his peritoneal dialysis as prescribed.He was felt to be mildly volume overloaded when he arrived. My service wasasked to consult as he has been seeing our practice for some time.Originally on admission, it was agreed that he would possibly need moredialysis for volume control.Echocardiogram that was done this admission showed worsening of his LVfunction. He had an LVEF of 40 to 45 percent in 02/2020. This has nowdropped to 20 to 25 percent on his most recent echo. He has a history ofmoderate aortic stenosis, but by aortic valve calcium scoring done thisadmission, this has progressed to severe.He tells me that his baseline is spent sitting in a wheelchair. He haswalked in the past and did not notice any increasing shortness of breath orfatigue with this. He has noticed increasing shortness of breath over thelast couple weeks since prior to hospitalization. No chest pain. Nopalpitations. No passing out episodes.ROS: Otherwise 10 systems reviewed and negative except for that mentioned above. PAST MEDICAL HISTORY:1. Aortic stenosis.2. End-stage renal disease.3. COPD.4. Coronary artery disease.5. Depression.6. Diabetes mellitus.7. Hypertension.8. Hyperlipidemia.SOCIAL HISTORY: Reviewed. He denies ever smoking. He denies excessivealcohol or illicit drug abuse.FAMILY HISTORY: Reviewed and noncontributory.PHYSICAL EXAMINATION: He is awake, alert, and oriented. He is not in anyapparent distress. His blood pressure currently is in the 100s over 70sand his heart rates in the 70s, normal sinus rhythm. HEENT: Pupils areequal and round bilaterally. Oral mucosa is moist. Chest is clear toauscultation in the upper lung laurent. S1 is poorly heard. There is asystolic murmur heard in the aortic area and S2 is diminished. Abdomen issoft, nontender, nondistended. Extremities are warm. He is status postleft-sided BKA. 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 This shows his creatinine to be11.9. His sodium 139, potassium 4.2. His H and H are 8.5 and 26.2.Last echocardiogram that was done on 04/07/2020 showed a mean gradientwhich increased from 11 to 18 mmHg at 20 micrograms of dobutamine. Therewas no meaningful change in his transvalvular gradient. At rest, his EF is20 to 25 percent and his valve area calculated out to be 0.67. His peakvelocity was 2.67 m/sec squared.He also has moderate mitral valve regurgitation as well as tricuspid valveregurgitation.Cardiac catheterization done showed mild coronary artery disease with a 95percent lesion in the distal circumflex.Aortic valve calcium scoring via CT was reviewed, showed his calcium to beabove 3000.Impression: Severe aortic stenosis. This is the low flow, low gradienttype.ASSESSMENT AND PLAN: This is a 79 year old gentleman who has a hisory of ESRD and is on peritoneal dialysis. He also has PVD and is due to get an amputation of his RLE because of dry gangrene. He already has a left LE BKA. He has low flow low gradient severe aortic stenosis, his LV EF has markedly declined over the past couple months. He had been noticing increasing dyspnea at rest and was found to be in heart failure, now clinically improving. Severe aortic stenosis: We spoke about the management for severe . Serjio need an aortic valve replacement and due to his chronic comorbidities,I think he would be better suited for TAVR. In terms of his workup priorto TAVR, he has already had a cardiac catheterization. He will needcarotid artery Dopplers as well as PFTs. These we will handle for him asan outpatient. He will also need a TAVR CT to assess approach. Moreimportantly, we will need to decide the timing for treatment of hisright-sided lower extremity amputation, this is being scheduled for the drygangrene present on his right lower extremity. I will have to touch basewith his vascular surgeons for this. We will arrange for discussion of hiscase at our TAVR conference at [facility] next week.DICTATED BY: FRANNIE Parmarictated: 04/08/2020 15:00DT: 04/08/2020 15:05Job #: [id number]: [facility] computer generated reports are notconfirmed or authenticated unless they are signed by the providerElectronically Authenticated and Edited by:DUANE BEATTY MD On 04/09/2020 03:50 PM EST Name Value Range Interpretation Code Description Data Kevin rce(s) Supporting Document(s) ID Date Data Source [id number] 04/08/2020 09:39:00 AM EST [facility] DATE OF EXAM: 04/08/2020XAM:Chest 1V Po rtable CLINICAL INDICATION: PLEURAL EFFUSION TECHNIQUE: Single chest x-ray. COMPARISON: Chest x-ray dated 04/04/2020 FINDINGS: Significantly improved bilateral pleural effusions with near complete resolution.No dense consolidations are identified. Normal cardiovascular silhouette.Unremarkable osseous structures. IMPRESSION: 1. Near complete resolution of previously identified pleural effusions. Professional interpretation performed at [facility] .End of diagnostic report for accession: [id number] Interpreted: Angel Escobar MDTr anscribed: 04/08/2020 09:37 AMSigned: 04/08/2020 09:39 AM Angel Escobar MD [facility] # [id number] BILL # [id number] Name Value Range Interpretation Code Description Data Kevin rce(s) Supporting Document(s) ID Date Data Source [id number] 04/08/2020 02:04:19 AM EST [facility] Name Value Range Interpretation Code Description Data Kevin rce(s) Supporting Document(s) WBC 6.6 10*3/uL (4.1-11.0) [facility] [place] RBC 2.75 10*6/uL (4.60-6.10) L [facility] HGB 8.5 g/dL (13.5-18.0) L [facility] HCT 26.2 % (41.0-53.0) L [facility] MCV 95.2 fL (80.0-95.0) H [facility] MCH 30.9 pg (27.0-32.0) [facility] MCHC 32.4 g/dL (32.0-36.0) [facility] RDW 15.9 % (10.5-14.5) H [facility] PLT 209 10*3/uL (150-450) [facility] MPV 10.0 fL (7.1-10.7) [facility] ID Date Data Source [id number] 04/07/2020 08:17:54 PM EST [facility] Name Value Range Interpretation Code Description Data Kevin rce(s) Supporting Document(s) SODIUM 139 mmol/L (136-145) [facility] POTASSIUM 4.2 mmol/L (3.6-5.2) [facility] CHLORIDE 102 mmol/L (100-108) [facility] CO2 24 mmol/L (22-31) [facility] ANION GAP 13 mmol/L (7-16) [facility] UREA NITROGEN 45 mg/dL (7-24) H [facility] CREATININE 11.90 mg/dL (0.80-1.30) HH [facility] CONSISTENT WITH PREVIOUS RESULTS BUN/CREAT RATIO 3.8 RATIO (10.0-20.0) L [facility] GLUCOSE 76 mg/dL (70-99) [facility] CALCIUM 9.3 mg/dL (8.4-10.2) [facility] GFR 4 ml/min/1.73m2 (>59) L [facility] GFR ( AMER) 5 ml/min/1.73m2 (>59) L [facility] GFR INTERPRETATION [facility] --NORMAL KIDNEY FUNCTION OR MILD DISEASE - GFR >OR= 60CHRONIC KIDNEY DISEASE - GFR 15 - 59RENAL FAILURE - GFR <15 Est. GFR calculation based on the MDRDstudy equation, which assumes a steadystate for creatinine. Est. GFR should notbe used for medication dosing. ID Date Data Source [id number] 04/07/2020 08:17:54 PM EST [facility] Name Value Range Interpretation Code Description Data Kevin rce(s) Supporting Document(s) TROPONIN I 0.68 ng/mL (<0.05) H [facility]ary ROPER Y Less than 0.05: Myocardial injury unlike lyGreater than or equal to 0.05: Highly suggestive of myocardial injuryCorrelation with rise and/or fall ofserial troponins, clinical symptomsand ECG changes is necessary. ID Date Data Source [id number] 04/07/2020 05:12:00 PM EST [facility] al DATE OF EXAM: 04/07/2020T CHEST WITHOUT INDICATION: Aortic valve calcium score TECHNIQUE: Noncontrast CT is performed through the heart with assessment of aortic valve calcium. One or more of the following dose reduction techniques were utilized in effectively lowering the radiation dose for this examination: Automated Exposure Control, Adjustment of the mA and/or kV according to patient size, or Iterative Reconstruction. COMPARISON: None FINDINGS: Calcium score: The aortic valve Agatston calcium score is 3041. This is concerning for severe aortic stenosis (Kamla Blas. et al. J Am Mike Cardiol Img. 2019;12(9):1835-48). Other findings: Moderate pleural effusions with bibasilar atelectasis. Mild centrilobular emphysema. Focal 9 x 8 mm nodular opacity in the right middle lobe (series 4, image 74). Cardiomegaly. Severe coronary artery calcification. Small pericardial effusion. Heterogeneous thyroid gland with nodules. This includes a rim calcified left thyroid nodule and 1.7 cm inferior isthmus nodule. Atherosclerotic calcification. Ascites in the visualized upper abdomen. Bilateral gynecomastia. Degenerative changes of the spine. IMPRESSION: 1. Aortic valve Agatston score of 3041.2. Moderate bilateral pleural effusions with bibasilar atelectasis.3. Focal 9 x 8 mm nodular opacity in the right middle lobe with adjacent groundglass opacity. Recommend comparison to any prior chest CT to assess for stability. If none is available, follow-up chest CT in three months is suggested to assess for stability or resolution.4. Centrilobular emphysema.5. Severe coronary artery calcification. Cardiomegaly with small pericardial effusion.6. Ascites in the visualized upper abdomen.7. Heterogeneous thyroid with nodules. If not previously performed, recommend further evaluation with thyroid ultrasound. Professional interpretation performed at [facility] .End of diagnostic report for accession: [id number] Interpreted: Dorothea Parmar MDTranscribed: 04/07/2020 04:16 PMSigned: 04/07/2020 05:12 PM Dorothea Parmar MD [facility] # [id number] BILL # [id number] Name Value Range Interpretation Code Description Data [facility](s) Supporting Document(s) ID Date Data Source [id number] 04/06/2020 07:16:15 AM EST [facility] Name Value Range Interpretation Code Description Data [facility](s) Supporting Document(s) SODIUM 140 mmol/L (136-145) [facility] POTASSIUM 3.8 mmol/L (3.6-5.2) [facility] CHLORIDE 101 mmol/L (100-108) [facility] CO2 28 mmol/L (22-31) [facility] ANION GAP 11 mmol/L (7-16) [facility] UREA NITROGEN 41 mg/dL (7-24) H [facility] CREATININE 11.10 mg/dL (0.80-1.30) [facility] CONSISTENT WITH PREVIOUS RESULTS BUN/CREAT RATIO 3.7 RATIO (10.0-20.0) L [facility] GLUCOSE 100 mg/dL (70-99) H [facility] CALCIUM 8.7 mg/dL (8.4-10.2) [facility] PHOSPHORUS 5.6 mg/dL (2.5-4.5) H [facility] ALBUMIN 2.5 g/dL (3.2-4.5) L [facility] GFR 5 ml/min/1.73m2 (>59) L [facility] GFR ( AMER) 5 ml/min/1.73m2 (>59) L [facility] GFR INTERPRETATION [facility] --NORMAL KIDNEY FUNCTION OR MILD DISEASE - GFR >OR= 60CHRONIC KIDNEY DISEASE - GFR 15 - 59RENAL FAILURE - GFR <15 Est. GFR calculation based on the MDRDstudy equation, which assumes a steadystate for creatinine. Est. GFR should notbe used for medication dosing. ID Date Data Source [id number] 04/06/2020 06:47:25 AM EST [facility] Name Value Range Interpretation Code Description Data [facility](s) Supporting Document(s) WBC 5.4 10*3/uL (4.1-11.0) [facility] [place] RBC 2.61 10*6/uL (4.60-6.10) L [facility] HGB 8.3 g/dL (13.5-18.0) L [facility] HCT 25.2 % (41.0-53.0) L [facility] MCV 96.5 fL (80.0-95.0) H [facility] MCH 31.9 pg (27.0-32.0) [facility] MCHC 33.0 g/dL (32.0-36.0) [facility] RDW 16.7 % (10.5-14.5) H [facility] PLT 211 10*3/uL (150-450) [facility] MPV 9.4 fL (7.1-10.7) [facility] ID Date Data Source [id number] 04/05/2020 09:40:55 PM EST [facility] Name Value Range Interpretation Code Description Data [facility](s) Supporting Document(s) WBC 5.4 10*3/uL (4.1-11.0) [facility] [place] RBC 2.86 10*6/uL (4.60-6.10) L [facility] HGB 9.0 g/dL (13.5-18.0) L [facility] HCT 27.8 % (41.0-53.0) L [facility] MCV 97.4 fL (80.0-95.0) H [facility] MCH 31.5 pg (27.0-32.0) [facility] MCHC 32.4 g/dL (32.0-36.0) [facility] RDW 17.0 % (10.5-14.5) H [facility] PLT 210 10*3/uL (150-450) [facility] MPV 9.2 fL (7.1-10.7) [facility] ID Date Data Source [id number] 04/04/2020 01:46:30 PM EST [facility] Name Value Range Interpretation Code Description Data [facility](s) Supporting Document(s) LACTIC ACID 1.6 mmol/L (0.4-2.0) [facility] [place] ID Date Data Source [id number] 04/04/2020 12:32:00 PM EST [facility] DATE OF EXAM: 04/04/2020P CHEST INDICAT ION: Congestion COMPARISON: 04/01/2020 TECHNIQUE: A single AP film of the chest was obtained. FINDINGS: The heart is large and aorta atherosclerotic. There are bilateral pleural effusions with bibasilar pneumonia versus atelectasis. IMPRESSION: Cardiomegaly with bilateral effusions and bibasilar pneumonia versus atelectasis H1End of diagnostic report for accession: [id number] Interpreted: John Vernon MDTranscribed: 04/04/2020 12:32 PMSigned: 04/04/2020 12:32 PM John Vernon MD [facility] # [id number] BILL # [id number] Name Value Range Interpretation Code Description Data [facility](s) Supporting Document(s) ID Date Data Source [id number] 04/04/2020 05:15:00 PM EST [facility] [place] [address]PATIENT NAME: CASSIDY VARGHESEDATE OF : 1940REPORT: DISCHARGE SUMMARYPATIENT NUMBER: [id number] STATUS: OF ADMISSION:DATE OF DISCHARGE:ROOM:DISCHARGE DIAGNOSES: Atypical pneumonia; systolic heart failure, new inonset, with single-vessel disease; end-stage renal disease, on peritonealdialysis; peripheral vascular disease; hypotension; and hyperkalemia.HOSPITAL COURSE: When I admitted Mr. Varghese, it was on 03/30/2020, hischief complaint after being transferred from [place] for elevatedtroponins was shortness of breath. In the context of renal disease, theelevated troponins really aroused my suspicion and he appeared to havepneumonia. He appeared to be little volume overloaded, and his dialysatewas changed to a more concentrated one by Nephrology. I did get anechocardiogram, in addition to his severe aortic stenosis, it showed thathe had had a severe reduction in his ejection fraction from the prior echojust a month ago. I consulted Dr. Sung of Cardiology. It appears thathe probably had some silent infarction now. He had an angiogram onThursday, 04/03/2020, to further evaluate this, and in the meantime in hishospital course, he was dialyzed with a higher concentrate solution and hisvolume status improved. The cath was done. There was single-vesseldisease with his distal artery and it was not amenable to any stenting orany other intervention, so medical therapy was thereafter sought and it isnot clear what benefit any intervention with his ao rtic valve would give tofrancheskam. In this condition, it was suggested that he be consulted upon byPalliative Care by Dr. Sung. So, Palliative Care had seen him. Hewants to be a full code despite whatever happened in between. On themorning of 04/04/2020, I had intended to discharge him home; however, hewas a code M for hypotension and unresponsiveness. Dr. Mcwilliams had to shake him violently to awaken and his systolic pressures were in the 60s. At the present moment, we gave him albumin boluses and a little bit of normal saline. The thinking right now is that perhaps he had too much fluid taken out and is intravascularly depleted at this point, so he requires a bit of critical care thus far and I am still following throughout the day, otherwise his noted he was not going to be discharging home, but again this is aside from what is documented in the notes beyond this concludes my contribution to his care was here.DICTATED BY: FRANNIE Ramirezictated: 04/04/2020 11:15DT: 04/04/2020 11:25Job #: [id number]: [facility] computer generated reports are notconfirmed or authenticated unless they are signed by the providerElectronically Authenticated and Edited by:Everardo Kincaid MD On 04/04/2020 05:15 PM EST Name Value Range Interpretation Code Description Data [facility](s) Supporting Document(s) ID Date Data Source [id number] 04/04/2020 10:15:41 AM EST [facility] Name Value Range Interpretation Code Description Data [facility](s) Supporting Document(s) POC GLUCOSE 111 mg/dL (70-99) H [facility] Zbign[facility] PERFORMED BY CLINICAL STAFF ID Date Data Source [id number] 04/04/2020 01:39:20 PM EST [facility] Name Value Range Interpretation Code Description Data [facility](s) Supporting Document(s) WBC 4.6 10*3/uL (4.1-11.0) [facility] [place] RBC 3.00 10*6/uL (4.60-6.10) L [facility] HGB 9.3 g/dL (13.5-18.0) L [facility] HCT 29.2 % (41.0-53.0) L [facility] MCV 97.4 fL (80.0-95.0) H [facility] MCH 31.0 pg (27.0-32.0) [facility] MCHC 31.8 g/dL (32.0-36.0) L [facility] RDW 17.7 % (10.5-14.5) H [facility] PLT 232 10*3/uL (150-450) [facility] MPV 9.1 fL (7.1-10.7) [facility] ID Date Data Source [id number] 04/04/2020 08:39:42 AM EST [facility] Name Value Range Interpretation Code Description Data [facility](s) Supporting Document(s) SODIUM 142 mmol/L (136-145) [facility] POTASSIUM 4.0 mmol/L (3.6-5.2) [facility] CHLORIDE 103 mmol/L (100-108) [facility] CO2 29 mmol/L (22-31) [facility] ANION GAP 10 mmol/L (7-16) [facility] UREA NITROGEN 40 mg/dL (7-24) H [facility] CREATININE 11.40 mg/dL (0.80-1.30) HH [facility] CONSISTENT WITH PREVIOUS RESULTS BUN/CREAT RATIO 3.5 RATIO (10.0-20.0) L [facility] GLUCOSE 127 mg/dL (70-99) H [facility] CALCIUM 9.2 mg/dL (8.4-10.2) [facility] GFR 4 ml/min/1.73m2 (>59) L [facility] GFR ( AMER) 5 ml/min/1.73m2 (>59) L [facility] GFR INTERPRETATION [facility] --NORMAL KIDNEY FUNCTION OR MILD DISEASE - GFR >OR= 60CHRONIC KIDNEY DISEASE - GFR 15 - 59RENAL FAILURE - GFR <15 Est. GFR calculation based on the MDRDstudy equation, which assumes a steadystate for creatinine. Est. GFR should notbe used for medication dosing. ID Date Data Source [id number] 04/03/2020 06:10:54 PM EST [facility] Name Value Range Interpretation Code Description Data [facility](s) Supporting Document(s) POC GLUCOSE 83 mg/dL (70-99) [facility] NOTIFIED NURSEPERFORMED BY CLINICAL S TAFF ID Date Data Source [id number] 04/09/2020 07:29:55 AM EST [facility] Name Value Range Interpretation Code Description Data [facility](s) Supporting Document(s) SARS COV2 SOURCE [facility] SARS COV 2 BY PCR [facility] Not Detected INTERPRETIVE INFORMATION: S ARS-CoV-2 (COVID-19) by RAY This test should be ordered for the detection of the 2019 novel coronavirus SARS-CoV-2 in individuals who meet SARS-CoV-2 clinical and/or epidemiological criteria. The Coronavirus SARS-CoV-2 (COVID-19) by nucleic acid amplification test is for in vitro diagnostic use under the FDA Emergency Use Authorization (EUA) for US laboratories certified under CLIA to perform high complexity tests. This test has not been FDA cleared or approved. In compliance with this authorization, please visit [email or web address] for more information and to access the applicable information sheets. Not Detected results do not rule out the presence of PCR inhibitors in the patient specimen or assay specific nucleic acid in concentrations below the level of detection by the assay. Detected results are indicative of the presence of SARS-CoV-2 RNA. Due to the complexity of nucleic acid amplification methodologies, there may be a risk of false positive results. Clinical correlation with patient history and other diagnostic information is necessary to determine patient infection status. Reliable results are dependent on adequate specimen collection, transport, storage, and handling. Performed by [facility], [address] [facility] [address] [email or web address], Shital Love MD, Lab. Director ID Date Data Source [id number] 04/03/2020 07:18:25 AM EST [facility] Name Value Range Interpretation Code Description Data [facility] r[facility](s) Supporting Document(s) PT 11.5 s (9.2-11.9) [facility] INR 1.10 [facility] SUGGESTED THERAPEUTIC RANGES USING INR F ORSTABILIZED ANTICOAGULATED PATIENTS:STANDARD DOSE THERAPY INR 2.0-3.0 DVT, PE, PREVENT DVT OR EMBOLISMHIGH DOSE THERAPY INR 2.5-3.5 PREVENT EMBOLISM FROM MECHANICAL HEART VALVE ID Date Data Source [id number] 04/03/2020 07:17:00 AM EST [facility] Name Value Range Interpretation Code Description Data [facility](s) Supporting Document(s) SODIUM 142 mmol/L (136-145) [facility] POTASSIUM 4.0 mmol/L (3.6-5.2) [facility] CHLORIDE 103 mmol/L (100-108) [facility] CO2 28 mmol/L (22-31) [facility] ANION GAP 11 mmol/L (7-16) [facility] UREA NITROGEN 41 mg/dL (7-24) H [facility] CREATININE 11.50 mg/dL (0.80-1.30) HH [facility] CONSISTENT WITH PREVIOUS RESULTS BUN/CREAT RATIO 3.6 RATIO (10.0-20.0) L [facility] GLUCOSE 143 mg/dL (70-99) H [facility] CALCIUM 8.8 mg/dL (8.4-10.2) [facility] GFR 4 ml/min/1.73m2 (>59) L [facility] GFR ( AMER) 5 ml/min/1.73m2 (>59) L [facility] GFR INTERPRETATION [facility] --NORMAL KIDNEY FUNCTION OR MILD DISEASE - GFR >OR= 60CHRONIC KIDNEY DISEASE - GFR 15 - 59RENAL FAILURE - GFR <15 Est. GFR calculation based on the MDRDstudy equation, which assumes a steadystate for creatinine. Est. GFR should notbe used for medication dosing. ID Date Data Source [id number] 04/02/2020 08:08:11 AM EST [facility] Name Value Range Interpretation Code Description Data [facility](s) Supporting Document(s) SODIUM 143 mmol/L (136-145) [facility] POTASSIUM 4.2 mmol/L (3.6-5.2) [facility] CHLORIDE 105 mmol/L (100-108) [facility] CO2 28 mmol/L (22-31) [facility] ANION GAP 10 mmol/L (7-16) [facility] UREA NITROGEN 43 mg/dL (7-24) H [facility] CREATININE 11.30 mg/dL (0.80-1.30) HH [facility] CONSISTENT WITH PREVIOUS RESULTS BUN/CREAT RATIO 3.8 RATIO (10.0-20.0) L [facility] GLUCOSE 139 mg/dL (70-99) H [facility] CALCIUM 8.8 mg/dL (8.4-10.2) [facility] GFR 4 ml/min/1.73m2 (>59) L [facility] GFR ( AMER) 5 ml/min/1.73m2 (>59) L [facility] GFR INTERPRETATION [facility] [place] [facility] [place] --NORMAL KIDNEY FUNCTION OR MILD DISEASE - GFR >OR= 60CHRONIC KIDNEY DISEASE - GFR 15 - 59RENAL FAILURE - GFR <15 Est. GFR calculation based on the MDRDstudy equation, which assumes a steadystate for creatinine. Est. GFR should notbe used for medication dosing. ID Date Data Source [id number] 04/14/2020 04:36:00 PM EST [facility] [id number] [place], [place] [id number] NAME: KARAN VARGHESE OF : 1940REPORT: CONSULTATIONPATIENT NUMBER: [id number] STATUS: :DATE OF CONSULTATION: 04/01/2020I have been asked by Dr. 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 He is admitted to [facility] withcongestive heart failure, worsening dyspnea, and found to have a dramaticdecrease in left ventricular systolic function from an echocardiogram thatwas performed on 02/11/2020. At that time, his estimated ejection fractionwas 40 to 45 percent. He had aortic stenosis of moderate severity, peak ofapproximately 38, mean of about 18 and 19 across the valve. He now has alow flow and low-gradient with a peak of approximately 34, mean of 17,but ejection fraction of 20 percent. The valve area calculates to be about0.8 cm2. He has an abnormal EKG showing sinus rhythm and Q-waves in leadsV1 through V3 and nonspecific interventricular conduction delay. He hasbeen having some problems with nonsustained VT, with up to 6 to 7-beat runsof ventricular tachycardia and occasionally some idioventricular rhythm. EKG shows a QRS duration of 112 milliseconds, evidence of probableanteroseptal infarction with very poor R-wave progression, such that he hasonly about 1 mm R-wave by lead V4. He has T-wave inversion in leads V5 andV6 and in the lateral leads. He is found on the current x-ray to havebilateral pleural effusions that echo reports as large, but probably moremild on the right and [id number] on the left. He is denying anychest pressure, pain, tightness, fullness, or shortness of breath. He hasend-stage renal disease, having underwent bilateral nephrectomy for cancerand maintained on hemodialysis for a protracted period of time. Hismedications upon transfer include aspirin 81 mg a day; Symbicort; Mhnmusjl89 mg Tuesday, Tuesday, and Tuesday; clopidogrel 75 mg a day; Epogen 20,000units every 2 weeks; midodrine 5 mg t.i.d. p.r.n. for systolic pressureless than 140; nortriptyline 10 mg three times a day; omeprazole; potassiumchloride; sevelamer carbonate, Renvela 80 mg t.i.d. He was maintained onperitoneal dialysis. He has an echo, which reports mild left atrialenlargement, but his volume is 78 mL per meter squared, so this is severeleft atrial enlargement. I interpret his MR as being moderate in severityand report says mild. He does have TR with an elevated PAP. I wouldestimate it to be closer to 50 mmHg. He does have the bilateral pleuraleffusions.PERTINENT LABORATORY DATA: When he was here, he did have a problem withhyperkalemia with potassium as high as 6.1, currently down to 4.4. He hashad an elevated procalcitonin of 0.28, random sugar of 173, BUN of 48, priyank creatinine of 11.2. He has had a BKA with hemoglobin of 9, hematocrit of27, the day before it was 7.7 and 23.5. MCV is 98.2.Right now, we are between a rock and a proverbial hard place. He has gotlow-flow and low-gradient , profound depression of LV systolic function. I do not at all think that this is aortic stenosis, which has resulted inthe marked deterioration of LV systolic function. It would be moresuspicious that he suffered silent myocardial infarction, as he has somesegmental as well as generalized LV dysfunction. We can try to pull somemore fluid with the PD. He does have a fistula and graft in the left armwithout a great thrill. His chest x-ray does show the bilateral pleuraleffusions. We will see what we can do about trying to pull some fluid, nancy is a gentleman who occasionally requires midodrine. Pressures havebeen running 103/70, a most recent 112/78. He does have JVP of about 10cm. Diminished breath sounds in both lung bases, consistent with bilateraleffusions. There is a soft gallop present. PMI is displaced slightlylaterally. He has PD catheter in place in the amputation. He also has hada history of prostate cancer, diabetes. and COPD. He had a remote historyof tobacco, quitting over 35 years ago. He has had four children. He doesnot know what had caused his father's . His mother in [facility] at an advanced age and he was also unsure about the details. He had been in pulmonary edema on the chest x-ray up at [place]. He isallergic to amlodipine, hydralazine, Indocin, minoxidil, morphine, Norvasc,and opioids. He has been prone to hyperkalemia, so we do not have a lot ofroom with either ARBs, MASSIEL inhibitors, or ARNIs. We will try to pull somefluid, check a lipid profile, check iron panel once we clear the pleuraleffusions as best as we can. I think he should undergo coronaryangiography prior to discharge from the hospital. He would be an ext remelyhigh-risk candidate for conventional valve surgery. The outcomes of TAVRin the end-stage renal patients are quite poor. Prognosis is guarded. Itmay be crespo to involve palliative care services while he is here as well.DICTATED BY: FRANNIE Peñaictated: 04/01/2020 13:46DT: 04/01/2020 13:52Job #: [id number]: Bob Buenrostro MD Team [facility] LivoniaNOTE: [facility] computer generated reports are notconfirmed or authenticated unless they are signed by the providerElectronically Authenticated by:IRVIN SUNG MD On 04/14/2020 04:36 PM EST Name Value Range Interpretation Code Description Data Kevin rce(s) Supporting Document(s) ID Date Data Source [id number] 04/01/2020 06:26:00 PM EST [facility] DATE OF EXAM: 04/01/2020EXAMINATION:Ches t Radiograph. One view. CLINICAL INFORMATION:CONGESTIVE HEART FAILURE COMPARISON:02/09/2020 FINDINGS: Lungs and pleura: Small left pleural effusion with overlying compressive atelectasis + / - consolidation. Trace right effusion. Prominence of the pulmonary vasculature and thickening of the interstitial lung markings. Heart and mediastinum: Increased mild cardiomegaly. Atherosclerotic calcifications are identified within the aortic arch. Other: Degenerative changes affect the visualized spine. No acute osseous abnormality. IMPRESSION:Pulmonary vascular congestion and prominence in interstitial lung markings raises the possibility of mild interstitial pulmonary edema.Small left and trace right pleural effusion with overlying compressive atelectasis + / - consolidation.Borderline cardiac enlargement. Professional interpretation performed at [facility] .End of diagnostic report for accession: [id number] Interpreted: Angel Hernandez MDTranscribed: 04/01/2020 06:20 PMSigned: 04/01/2020 06:26 PM Angel Hernandez MD [facility] # [id number] BILL # [id number] Name Value Range Interpretation Code Description Data [facility] rce(s) Supporting Document(s) ID Date Data Source [id number] 04/01/2020 04:53:47 PM EST [facility] Name Value Range Interpretation Code Description Data Kevin rce(s) Supporting Document(s) CHOLESTEROL @ 128 mg/dL (0-200) Lab [facility] TRIGLYCERIDE @ 52 mg/dL (30-200) [facility] HDL CHOLESTEROL @ 50 mg/dL (>40) Lab [facility] PER NCEP ATP III GUIDELINES:RESULTS LOWE R THAN 40 MG/DL ARE SUGGESTIVEOF INCREASED RISK FOR CORONARY ARTERYDISEASE. RESULTS > OR = TO 60 MG/DL ARECONSIDERED A NEGATIVE RISK FACTOR. CHOL/HDL RATIO 2.6 RATIO Lab [facility] INTERPRETATION OF CHOL-HDL RATIO CHD RISK FEMALE MALEVERY HIGH >8.3 >14.3HIGH 5.6- 8.3 6.7- 14.3AVERAGE 3.7- 5.6 4.0- 6.7BELOW AVERAGE 2.5- 3.7 2.7- 4.0PROTECTED <2.5 <2.7 LDL CHOL (CALC) 68 mg/dL (<130) [facility] PER NCEP ATP III GUIDELINES: OPTIMAL < 100 NEAR OPTIMAL 100 - 129BORDERLINE HIGH 130 - 159 HIGH 160 - 189 VERY HIGH > 189 ID Date Data Source [id number] 04/01/2020 04:53:47 PM EST [facility] Name Value Range Interpretation Code Description Data Kevin rce(s) Supporting Document(s) IRON,TOTAL @ 35 ug/dL (35-150) [facility] [place] UIBC @ 171 ug/dL (130-375) [facility] TIBC @ 206 ug/dL (250-450) L [facility] % SATURATION 17 % (12-50) [facility] [place] ID Date Data Source [id number] 04/01/2020 04:53:47 PM EST [facility] Name Value Range Interpretation Code Description Data Kevin rce(s) Supporting Document(s) FERRITIN @ 1449 ng/mL (26-388) H [facility] ID Date Data Source [id number] 04/01/2020 11:39:24 AM EST [facility] Name Value Range Interpretation Code Description Data Kevin rce(s) Supporting Document(s) PROCALCITONIN @ 0.28 ng/mL (<0.10) H [facility] INTERPRETATION OF RESULT < 0.51 Sepsis is not likely.0.51-2.00 Sepsis is possible, but other conditions are known to elevate PCT.2.01-9.99 Sepsis is likely, unless other causes are known. > 9.99 Important systemic inflammatory response, almost exclusively due to severe bacterial sepsis or septic shock.PERFORMED AT [address] [place] [id number] ID Date Data Source [id number] 04/01/2020 10:03:43 AM EST [facility] Name Value Range Interpretation Code Description Data Kevin rce(s) Supporting Document(s) SODIUM 144 mmol/L (136-145) [facility] POTASSIUM 4.4 mmol/L (3.6-5.2) [facility] CHLORIDE 104 mmol/L (100-108) [facility] CO2 31 mmol/L (22-31) [facility] ANION GAP 9 mmol/L (7-16) [facility] UREA NITROGEN 48 mg/dL (7-24) H [facility] CREATININE 11.20 mg/dL (0.80-1.30) [facility] CONSISTENT WITH PREVIOUS RESULTS BUN/CREAT RATIO 4.3 RATIO (10.0-20.0) L [facility] GLUCOSE 173 mg/dL (70-99) H [facility] CALCIUM 8.7 mg/dL (8.4-10.2) [facility] GFR 4 ml/min/1.73m2 (>59) L [facility] GFR ( AMER) 5 ml/min/1.73m2 (>59) L [facility] GFR INTERPRETATION Lab [facility] [place] --NORMAL KIDNEY FUNCTION OR MILD DISEASE - GFR >OR= 60CHRONIC KIDNEY DISEASE - GFR 15 - 59RENAL FAILURE - GFR <15 Est. GFR calculation based on the MDRDstudy equation, which assumes a steadystate for creatinine. Est. GFR should notbe used for medication dosing. ID Date Data Source [id number] 03/31/2020 05:23:11 PM EST [facility] Name Value Range Interpretation Code Description Data Kevin rce(s) Supporting Document(s) STOOL OCCULT BLOOD (NEG) [facility] ID Date Data Source [id number] 03/31/2020 08:45:05 AM EST [facility] Name Value Range Interpretation Code Description Data Kevin rce(s) Supporting Document(s) PHOSPHORUS 7.5 mg/dL (2.5-4.5) H [facility] ID Date Data Source [id number] 03/31/2020 08:45:05 AM EST [facility] Name Value Range Interpretation Code Description Data Kevin rce(s) Supporting Document(s) MAGNESIUM 1.7 mg/dL (1.7-2.4) [facility] ID Date Data Source [id number] 03/31/2020 08:45:05 AM EST [facility] Name Value Range Interpretation Code Description Data Kevni rce(s) Supporting Document(s) TROPONIN I 0.42 ng/mL (<0.05) H [facility] Less than 0.05: Myocardial injury unlike lyGreater than or equal to 0.05: Highly suggestive of myocardial injuryCorrelation with rise and/or fall ofserial troponins, clinical symptomsand ECG changes is necessary. ID Date Data Source [id number] 03/31/2020 07:22:36 AM EST [facility] Name Value Range Interpretation Code Description Data Kevin rce(s) Supporting Document(s) SODIUM 142 mmol/L (136-145) [facility] POTASSIUM 5.0 mmol/L (3.6-5.2) [facility] CHLORIDE 103 mmol/L (100-108) [facility] CO2 29 mmol/L (22-31) [facility] ANION GAP 10 mmol/L (7-16) [facility] UREA NITROGEN 51 mg/dL (7-24) H [facility] CREATININE 11.00 mg/dL (0.80-1.30) HH [facility] CONSISTENT WITH PREVIOUS RESULTS BUN/CREAT RATIO 4.6 RATIO (10.0-20.0) L [facility] GLUCOSE 104 mg/dL (70-99) H [facility] CALCIUM 9.6 mg/dL (8.4-10.2) [facility] GFR 5 ml/min/1.73m2 (>59) L [facility] GFR ( AMER) 6 ml/min/1.73m2 (>59) L [facility] GFR INTERPRETATION Lab [facility] [place] --NORMAL KIDNEY FUNCTION OR MILD DISEASE - GFR >OR= 60CHRONIC KIDNEY DISEASE - GFR 15 - 59RENAL FAILURE - GFR <15 Est. GFR calculation based on the MDRDstudy equation, which assumes a steadystate for creatinine. Est. GFR should notbe used for medication dosing. ID Date Data Source [id number] 03/31/2020 06:50:27 AM EST [facility] Name Value Range Interpretation Code Description Data Kevin rce(s) Supporting Document(s) WBC 5.2 10*3/uL (4.1-11.0) [facility] [place] RBC 2.82 10*6/uL (4.60-6.10) L [facility] HGB 9.0 g/dL (13.5-18.0) L [facility] HCT 27.7 % (41.0-53.0) L [facility] MCV 98.2 fL (80.0-95.0) H [facility] MCH 31.8 pg (27.0-32.0) [facility] MCHC 32.4 g/dL (32.0-36.0) [facility] RDW 16.9 % (10.5-14.5) H [facility] PLT 240 10*3/uL (150-450) [facility] MPV 9.3 fL (7.1-10.7) [facility] ID Date Data Source [id number] 03/30/2020 01:17:[address] [facility] [address] [place] [address] RESPIRATORY CARE REPORT ==== ---------NAME------- NUMBER SEX AGE ADMIT DISC. XRAY# F/C TYPEGRSATNAM CASSIDY Fair [id number] M 79 03/29/20 03/30/20 [id number] E/R DATE OF : 1940 M/R# [id number] PH#: [phone] TR-05 LOCATION: EMERGENCY DEPT EKG [id number] COMPLE TE:03/30/20 00:30 [place] [id number] PHYSICIAN: AG Name Value Range Interpretation Code Description Data Kevin rce(s) Supporting Document(s) ID Date Data Source [id number] 03/30/2020 08:57:13 AM EST [facility] Name Value Range Interpretation Code Description Data Kevin rce(s) Supporting Document(s) TROPONIN I 0.38 ng/mL (<0.05) H [facility] Less than 0.05: Myocardial injury unlike lyGreater than or equal to 0.05: Highly suggestive of myocardial injuryCorrelation with rise and/or fall ofserial troponins, clinical symptomsand ECG changes is necessary. ID Date Data Source [id number] 03/30/2020 08:57:13 AM EST [facility] Name Value Range Interpretation Code Description Data Kevin rce(s) Supporting Document(s) SODIUM 138 mmol/L (136-145) [facility] POTASSIUM 6.1 mmol/L (3.6-5.2) [facility] CHLORIDE 102 mmol/L (100-108) [facility] CO2 29 mmol/L (22-31) [facility] ANION GAP 7 mmol/L (7-16) [facility] UREA NITROGEN 51 mg/dL (7-24) H [facility] CREATININE 10.90 mg/dL (0.80-1.30) [facility] K,CRRESULT(S) CALLED TO AND READ BACK BY GHADA IN ER 03.30.20 [id number] BUN/CREAT RATIO 4.7 RATIO (10.0-20.0) L [facility] GLUCOSE 90 mg/dL (70-99) [facility] CALCIUM 8.8 mg/dL (8.4-10.2) [facility] GFR 5 ml/min/1.73m2 (>59) L [facility] GFR ( AMER) 6 ml/min/1.73m2 (>59) L [facility] GFR INTERPRETATION [facility] --NORMAL KIDNEY FUNCTION OR MILD DISEASE - GFR >OR= 60CHRONIC KIDNEY DISEASE - GFR 15 - 59RENAL FAILURE - GFR <15 Est. GFR calculation based on the MDRDstudy equation, which assumes a steadystate for creatinine. Est. GFR should notbe used for medication dosing. ID Date Data Source [id number] 03/30/2020 08:08:34 AM EST [facility] Name Value Range Interpretation Code Description Data Kevin rce(s) Supporting Document(s) WBC 5.9 10*3/uL (4.1-11.0) [facility] [place] RBC 2.42 10*6/uL (4.60-6.10) L [facility] HGB 7.7 g/dL (13.5-18.0) L [facility] HCT 23.5 % (41.0-53.0) L [facility] MCV 96.8 fL (80.0-95.0) H [facility] MCH 31.8 pg (27.0-32.0) [facility] MCHC 32.9 g/dL (32.0-36.0) [facility] RDW 16.8 % (10.5-14.5) H [facility] PLT 227 10*3/uL (150-450) [facility] MPV 9.2 fL (7.1-10.7) [facility] NEUT % 56.2 % (35.0-75.0) [facility] LYMPH % 30.3 % (16.0-52.0) [facility] MONO % 7.1 % (0.0-8.0) [facility] EOS % 5.5 % (0.0-5.0) H [facility] BASO % 0.9 % (0.0-4.0) [facility] NEUT # 3.3 10*3/uL (1.8-7.7) [facility] LYMPH # 1.8 10*3/uL (1.2-4.8) [facility] MONO # 0.4 10*3/uL (0.0-0.8) [facility] Eosinophils [#/volume] in Blood by Automated count 0.3 10*3/uL (0.0-0 .5) [facility] BASO # 0.1 10*3/uL (0.0-0.2) [facility] ID Date Data Source [id number] 03/29/2020 07:36:00 PM EST [facility] 1 OrderSheet [facility] Emergency Department [address] [place] [address] Phone #: ext- [phone] 03/29/2020 19:35 Patient: CASSIDY VARGHESE Sex: M : 1940 Age: 79yWEIGHT:70.3 kg (S) HEIGHT:68 inches (S) BMI:23.6ALLERGIES: Amlodine, Hydrolazine, Indocin, Minocodil, Mivcera, OPIODSCHIEF COMPLAINT: dyspnea, CHFDIAGNOSIS: Hypoxemia, Congestive heart failure, Renal failure syndrome, ProblemLAB ORDERSOrder Description Priority Entered Acknowledged InitialedCBC w Diff STAT 19:57 03/29/2020 21:17 Sharron Mcelroy RN ;Troponin-T STAT 19:57 03/29/2020 21:17 Sharron Davenport RN ;CMP STAT 19:57 03/29/2020 21:17 Sharron Mcelroy RN ;BNP STAT 19:57 03/29/2020 21:17 Sharron Mcelroy RN ;PT/INR STAT 19:57 03/29/2020 21:17 Sharron Mcelroy RN ;CORONAVIRUS STAT 22:18 03/29/2020 Initialed: 22:33 Luiz Skaggs RNCOVID-19 (Not Sharron Luong Cancelled: Other 22:38 Katie WhittSymptomatic as ; R.N.Defined by CDC)(03/27/2020) (FirstTest) (NotHospitalized) (Not) (NotResident inCongregate CareSetting) (NotEmployed inHealthcare Setting)COVID-19 CA[facility] STAT 22:39 03/29/2020 22:39 Luiz(Symptomatic as Katie Whitt RNDefined by [facility]) R.N.; Verbal order(03/29) per; Bev Luong OrderSheet [facility] Emergency Department [address] [place] [address] Phone #: ext- [phone] 03/29/2020 19:35 Patient: CASSIDY VARGHESE Sex: M : 1940 Age: 79y(Unknown if Fri) (Hospitalized)(Not ) (NotResident inCongregate CareSetting) (NotEmployed inHealthcare Setting)DIAGNOSTIC STUDY ORDERSOrder Description Priority Entered Acknowledged InitialedChest Portable 1 STAT 19:57 03/29/2020 20:36 Juan (Oxygen? Sharron Luong RN(Yes)) ; Reason for Study: Congestion, Shortness of BreathMEDICATION/IV/DRIP/FLUID ORDERSOrder Description Priority Entered Acknowledged InitialedAspirin PO 22:12 03/29/2020 22:32 StevenChewable 81 mg Sharron Luong RN324 mg (NOW) ;Lasix IVP 40 mg 22:12 03/29/2020 Cancelled: Physician Order 22:32 Sharron Mcelroy RN ;Kayexalate PO 30 22:12 03/29/2020 Cancelled: Patient Refusal 22:34 Stevengm/120mL (NOW) Jonatan Luong RN ;GENERAL ORDERSOrder Description Priority Entered Acknowledged InitialedCardiac Monitor 19:57 03/29/2020 20:35 Luiz(continuous) Sharron Luong RN ;EKG 19:57 03/29/2020 20:35 Sharron Mcelroy RN ;NPO 19:57 03/29/2020 20:35 Sharron Mcelroy RN ;Oxygen (2 L/min) 19:57 03/29/2020 20:35 Luiz(NC) (Titrate to O2 Sharron Luong RNSat >95%) ;Saline Lock 19:57 03/29/2020 21:17 Luiz 3 OrderSheet [facility] Emergency Department [address] [place] [address] Phone #: ext- [phone] 03/29/2020 19:35 Patient: CASSIDY VARGHESE Sex: M : 1940 Age: 79y Sharron Luong RN ;Vitals 19:57 03/29/2020 20:35 Sharron Mcelroy RN ;Oxygen titrate to 19:57 03/29/2020 20:35 [id number]% Sharron Luong RN ;Pulse Oximetry 19:57 03/29/2020 20:35 KrishnaenContinuous Sharron Luong RN ;Saline Lock 19:57 03/29/2020 Cancelled: Duplicate Order 21:18 Sharron Mcelroy RN ;Consult - 23:37 03/29/2020 23:55 KrishnaenHospitalist Sharron Luong RN ;[Electronically signed by Luiz Skaggs RN (02:47 03/30/2020)][Electronically signed by Sharron Luong (06:40 03/30/2020)][Electronically locked by Luiz Skaggs RN (02:47 03/30/2020)] Name Value Range Interpretation Code Description Data Kevin rce(s) Supporting Document(s) ID Date Data Source [id number] 03/29/2020 07:36:00 PM EST [facility] 1 Medication Reconciliation Report [facility] Emergency Department [address] [place] [address] Phone #: ext- [phone] 03/29/2020 19:35 Patient: CASSIDY VARGHESE Sex: M : 1940 Age: 79yWeight: 70.3 kgHeight/Length: 68 in.BMI: 23.6ALLERGIES: Amlodine, Hydrolazine, Indocin, Minocodil, Mivcera, OPIODSThe patient's Home Medications are listed below:THE FOLLOWING MEDICATIONS NEED TO BE RECONCILED: Albuterol Sulfate Inhalation ((2.5 MG/3ML) 0.083%) 1 unit dose, prn Aspirin Oral (81 mg) 1 tablet, daily Atorvastatin Calcium Oral 40 mg, daily Colace Oral (100 mg) 2 capsules, daily Midodrine HCl Oral (5 mg) 1 tablet, 3x a day, SBP [id number] Nepro Oral 1-2 glasses, daily Nortriptyline HCl Oral (10 mg) 3caps, 3x a day Omeprazole Oral 20 mg, daily Plavix Oral 75 mg, daily Renvela Oral (800 mg) 1 tablet, 3x a day Sensipar Oral (60 mg) 1 tablet, every other day Symbicort Inhalation (160-4.5 mcg/act) 2puffs, 2x a dayThe source(s) of the original Home Medication information:patientThe following Medications were given to the patient in the Emergency Department: 2 Medication Reconciliation Report [facility] Emergency Department [address] [place] [address] Phone #: ext- [phone] 03/29/2020 19:35 Patient: CASSIDY VARGHESE Sex: M : 1940 Age: 79yASPIRIN CHEWABLE 81 MG [PO] PO 324 mg, administered: 22:22 03/29/2020The following Medications were prescribed to the patient:None. Name Value Range Interpretation Code Description Data Kevin rce(s) Supporting Document(s) ID Date Data Source [id number] 03/29/2020 07:36:00 PM [facility] 1 Medication Administration Record [facility] Emergency Department [address] [place] [address] Phone #: ext- [phone] 03/29/2020 19:35 Patient: CASSIDY VARGHESE Sex: M : 1940 Age: 79yWeight: 70.3 kgHeight/Length: 68 inBMI: 23.6ALLERGIES: Mivcera, Minocodil, Indocin, Hydrolazine, Amlodine, OPIODS Date/Time Medication Administered Medication OrderedGiven ASPIRIN CHEWABLE 81 MG [PO] Aspirin PO Chewable 81 mg [id number] 03/29/2020 Dose: 324 mg Tablets PO mg (NOW)Luiz Skaggs RN Name Value Range Interpretation Code Description Data Kevin rce(s) Supporting Document(s) ID Date Data Source [id number] 03/29/2020 07:36:00 PM [facility] 1 General Instructions [facility] Emergency Department [address] [place] [address] Phone #: ext- [phone] 03/29/2020 19:35 Patient: CASSIDY VARGHESE Sex: M : 1940 Age: 79yAcute moderate left ventricular congestive heart failure.Severe chronic renal failure- end stage disease.Hypoxia.Hyperkalemia; (elevated troponin,).(Electronically signed by Sharron Luong 03/30/2020 06:40) Name Value Range Interpretation Code Description Data Kevin rce(s) Supporting Document(s) ID Date Data Source [id number] 03/29/2020 07:36:00 PM EST [facility] 1 Clinical Report - Nurses [facility] Emergency Department [address] [place] [address] Phone #: icl- [phone] 03/29/2020 19:35 Patient: CASSIDY VARGHESE Sex: M : 1940 Age: 79yTRIAGEArrived by EMS. Historian: patient.Triage time: 19:39 03/29/2020. Acuity: LEVEL 3.This is a recurrent problem. 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 SEPSIS SCREEN NEGATIVE. No suspected or confirmedsigns of infection present. --19:57 03/29/20 Luiz Skaggs RN19:39 03/29/20. BP: 114/83 (regular adult cuff) taken on the right arm, via an automated monitor, whilelying. MAP: 93. HR: 102 (regular, normal rate and strong). RR: 20 (regular, unlabored and normal). X9rowazchejd: 83% on room air. Temp: 98.1 F. Pain level now: 11/11. --19:57 03/29/20 Luiz Skaggs RNChief Complaint: SHORTNESS OF BREATH.19:38 03/29/20. --02:47 03/30/20 Luiz Skaggs RN.Weight: 70.3 kg stated. Height/Length: 68 inches Per Patient. BMI: 23.6. --19:41 03/29/20 Luiz Skaggs RN.MedicationsMidodrine HCl Oral (Tablet 5 mg) 1 tablet, 3x a day (SBP [id number]). --19:46 03/29/20 Luiz Skaggs RN Omeprazole Oral 20 mg, daily. --19:47 03/29/20 Luiz Skaggs RN Renvela Oral (Tablet 800 mg) 1 tablet, 3x a day. --19:47 03/29/20 Luiz Skaggs RN Sensipar Oral (Tablet 60 mg) 1 tablet, every other day. --19:48 03/29/20 Luiz Skaggs RN Plavix Oral 75 mg, daily. --19:48 03/29/20 Luiz Skaggs RN Nortriptyline HCl Oral (Capsule 10 mg) 3ca ps, 3x a day. --19:49 03/29/20 Luiz Skaggs RN Atorvastatin Calcium Oral 40 mg, daily. --19:49 03/29/20 Luiz Skaggs RN Albuterol Sulfate Inhalation (Nebulization Solution (2.5 MG/3ML) 0.083%) 1 unit dose, as needed.--19:50 03/29/20 Luiz Skaggs RN Aspirin Oral (Tablet Chewable 81 mg) 1 tablet, daily. --19:50 03/29/20 Luiz Skaggs RN Colace Oral (Capsule 100 mg) 2 capsules, daily. --19:51 03/29/20 Luiz Skaggs RN Nepro Oral 1-2 glasses, daily. --19:51 03/29/20 Luiz Skaggs RN Symbicort Inhalation (Aerosol 160-4.5 mcg/act) 2puffs, 2x a day. --19:52 03/29/20 Luiz Skaggs RN.AllergiesOPIODS. --19:52 03/29/20 Luiz Skaggs RN 2 Clinical Report - Nurses [facility] Emergency Department [address] [place] [address] Phone #: ext- [phone] 03/29/2020 19:35 Patient: CASSIDY VARGHESE [facility]#: [id number] Sex: M : 1940 Age: 79y Amlodine. --19:53 03/29/20 Luiz Skaggs RN Hydrolazine. --19:53 03/29/20 Luiz Skaggs RN Indocin. --19:53 03/29/20 Luiz Skaggs RN Minocodil. --19:54 03/29/20 Luiz Skaggs RN Mivcera. --19:54 03/29/20 Luiz Skaggs RN. PROBLEMS: Acute Myocardial Infarction. Heart Disease. Hypertension. Renal Failure. Pulmonary Edema. Lung Disease. Hypokalemia. Nephropathy. Prostate Cancer. --19:55 03/29/20 Luiz Skaggs RN Pertinal dialysis. --19:56 03/29/20 Luiz Skaggs RN. Medication/allergy information source: the patient. --19:57 03/29/20 Luiz Skaggs RN. History SOCIAL HX: Former smoker, end date 1993. No alcohol use or drug use. He has not traveled outside the [place] Infectious disease exposure: No infectious disease exposure. SELF HARM ASSESSMENT: Self harm assessment was performed. The patient answered "no" to the question(s) "Have you recently felt down, depressed, or hopeless?", "Do you have thoughts of harming or killing yourself?", "Do you have a plan for harming or killing yourself?", "Have you recently had thoughts about harming or killing others?", "Do you have any dangerous items in your possession?", "Have you noticed less interest or pleasure in doing things?", "Are you here because you tried to hurt yourself?" and "Have you ever tried to hurt yourself before today?". ABUSE ASSESSMENT: No report of abuse. FALL RISK ASSESSMENT: Fall risk assessment completed. Risk factors identified include patient impairment of mobility. Fall interventions initiated. Side rails up x2. Bed in low position. Brakes on. Call light in reach of patient. Instructions given to patient including fall prevention information. Verbalizes understanding. --19:57 03/29/20 Luiz Skaggs RN. Assessment The patient states feels the same. --19:57 03/29/20 Luiz Skaggs RN.PHYSICAL ASSESSMENTTo room via stretcher. 3 Clinical Report - Nurses [facility] Emergency Department [address] [place] [address] Phone #: ext- [phone] 03/29/2020 19:35 Patient: CASSIDY VARGHESE Sex: M : 1940 Age: 79y GENERAL / NEURO / PSYCH: Alert. Oriented X 4. Appears in distress. HEENT: Mucous membranes are pink. RESPIRATORY: Moderate respiratory distress. The patient can speak in full sentences. Decreased breath sounds in the bases bilaterally. CVS: Normal sinus rhythm noted. Capillary refill less than 2 seconds. GI / : Abdomen soft and nontender. Bowel sounds within normal limits. SKIN: Skin is warm and dry. Normal skin turgor. --19:58 03/29/20 Luiz Skaggs RN.NURSING PROGRESS NOTESOxygen administered by nasal cannula at 4 liters. interface developer, NIBP monitor and pulse oximeterplaced on patient; transitions manager rn- Lead II. Patient gowned. Head of bed elevated 45 degrees.Reassurance given to the patient. Call light placed in reach of patient. Bed placed in lowest position.Brakes of bed on. Patient ready for evaluation- ED physician notified. --19:58 03/29/20 Luiz Skaggs RN 20:52 03/29/2020 Site #1 started via IV in the right wrist with an 22g angiocath, with aseptic technique and good blood return; three attempts. Blood drawn: rainbow set. Labeled in the presence of the patient and sent to the lab. Saline lock flushed with 10 mL saline. --21:01 03/29/20 Katie Whitt R.N. Critical value relayed by Nataly. Critical value received by Jaydon. Troponin: 0.23. Critical value read back. ED physician notifed of critical value. --21:37 03/29/20 Jaydon Skaggs R.N. Critical value relayed by Nataly. Critical value received by Tahira. Creatinine: 10.6. Critical value. Verified lab result. ED physician notifed of critical value. Orders were not received. No action is required. --21:50 03/29/20 Jaydon Skaggs R.N. Cardiac rhythm: normal sinus rhythm. The patient is resting quietly. RESPIRATORY: No respiratory distress. Decreased breath sounds in the bases bilaterally. Breath sounds normal. CVS: Normal sinus rhythm noted. SKIN: Skin is warm and dry. Skin color within normal limits. --22:07 03/29/20 Luiz Skaggs RN 22:05 03/29/20. BP: 117/75 (regular adult cuff) taken on the right arm, via an automated monitor, while lying. MAP: 89. HR: 99 (regular, normal rate and strong). RR: 20 (regular, unlabored and normal). O2 saturation: 100% on room air. Temp: 97.5 F (oral). Pain level now: 8/10. --22:07 03/29/20 Luiz Skaggs RN 22:22 03/29/2020 ASPIRIN CHEWABLE 81 MG PO Tablets 324 mg given. Allergies verified and confirmed 5 rights. Information reviewed with patient including reason for taking this medication, signs of allergic reaction and precautions. Verbalizes understanding. --22:32 03/29/20 Luiz Skaggs RN ( patient refuses kayxelate stating that he doesnt need this because his dialysis takes care of this). --22:38 03/29/20 Luiz Skaggs RN 4 Clinical Report - Nurses [facility] Emergency Department [address] [place] [address] Phone #: ext- [phone] 03/29/2020 19:35 [id number] Sex[facility] : 1940 Age: 79y Reassessment after medication administered. No adverse reaction. He is resting quietly. Overall patient status is the same. RESPIRATORY: No respiratory distress. Decreased breath sounds in the bases bilaterally. CVS: Normal sinus rhythm noted. SKIN: Skin is warm and dry. Skin color within normal limits. --23:03/29/20 Luiz Skaggs RN 23:08 03/29/20. BP: 119/88 (regular adult cuff) taken on the right arm, via an automated monitor, while lying. MAP: 98. HR: 104 (regular, normal rate and strong). RR: 22 (regular, unlabored and normal). O2 saturation: 97% on nasal cannula at 2 liters/minute. Temp: 98.3 F (oral). Pain level now: 11/11. --23:03/29/20 Luiz Skaggs RN Reassessment acuity: LEVEL 3. The patient is resting quietly. Overall patient status is the same- he states feels the same. RESPIRATORY: No respiratory distress. Decreased breath sounds in the bases bilaterally. CVS: Normal sinus rhythm noted. SKIN: Skin is warm and dry. Skin color within normal limits. --00:32 03/30/20 Luiz Skaggs RN 00:30 03/30/20. BP: 120/78 (regular adult cuff) taken on the right arm, via an automated monitor, while lying. MAP: 92. HR: 108 (regular, normal rate and strong). RR: 18 (regular, unlabored and normal). O2 saturation: 98% on nasal cannula at 2 liters/minute. Temp: 97.6 F (oral). Pain level now: 11/11. --00:32 03/30/20 Luiz Skaggs RN Reassessment acuity: LEVEL 3. The patient is resting quietly. RESPIRATORY: No respiratory distress. Decreased breath sounds in the bases bilaterally. CVS: Normal sinus rhythm noted. SKIN: Skin is warm and dry. Skin color within normal limits. --01:26 03/30/20 Luiz Skaggs RN 01:24 03/30/20. BP: 115/81 (regular adult cuff) taken on the right arm, via an automated monitor, while lying. MAP: 92. HR: 105 (regular, normal rate and strong). RR: 20. O2 saturation: 98% on room air. Temp: 97.4 F. Pain level now: 11/11. --01:03/30/20 Luiz Skaggs RN.DISPOSITION / DISCHARGE 01:39 03/30/20. Report was given to a nurse via a phone call. Report included information regarding patient's treatment and condition including: recent changes, current vital signs and critical or abnormal labs. Report included treatment information regarding medications given or pending. No questions were asked. Report was acknowledged and care was transferred. Bed obtained and ready. --02:05 03/30/20 Luiz Skaggs RN Transferred to [facility]. Emtala forms provided to transport team and transfer facility via paper. Transported via ambulance by vascular sonographer with monitor, O2 and mask. Patient's personal items; items were transported with the patient. --02:45 03/30/20 Luiz Skaggs RN 02:44 03/30/20. BP: 114/74 (regular adult cuff) taken on the right arm, via an automated monitor, while lying. MAP: 87. HR: 103 (regular, normal rate and strong). RR: 20 (regular, unlabored and normal). O2 5 Clinical Report - Nurses [facility] Emergency Department [address] [place] [address] Phone #: ext- [phone] 03/29/2020 19:35 Patient: CASSIDY VARGHESE Sex: M : 1940 Age: 79y saturation: 94% on nasal cannula at 2 liters/minute. Temp: 97.3 F (oral). Pain level now: 11/11. --02:45 03/30/20 Luiz Skaggs RN Departure time: 02:03/30/2020. --02:45 03/30/20 Luiz Skaggs RN.Locked/Released at 03/30/2020 02:47 by Luiz Skaggs RN Name Value Range Interpretation Code Description Data Kevin rce(s) Supporting Document(s) ID Date Data Source [id number] 03/29/2020 07:36:00 PM [facility] 1 Clinical Report - Physicians/Mid Levels [facility] Emergency Department [address] [place] [address] Phone #: ext- [phone] 03/29/2020 19:35 Patient: CASSIDY VARGHESE Sex: M : 1940 Age: 79y Time Seen: 19:47 03/29/2020; initial patient contact, initial documentation. Arrived- By ambulance. Historian- patient and EMS personnel. Disposition decision: 23:36 03/29/2020.HISTORY OF PRESENT ILLNESS Chief Complaint: DYSPNEA and HISTORY OF CONGESTIVE HEART FAILURE. This started yesterday morning and is still present. The dyspnea is described as moderate and is worsened by being in a supine position and is improved with oxygen. The patient has had a cough, orthopnea and paroxysmal nocturnal dyspnea. No sputum production, fever, sweating episodes, wheezing or chills. No chest pain or discomfort, calf pain, anxiety or dizziness. No tingling, numbness or palpitations. (this is a 79 y/o male with hx of CHF as well as ESRD on peritoneal dialysis every night presented to the ER with increasing shortness of breath yesterday morning. he denies cough, chest pains, Nausea, vomiting or fevers. he denies exposure to COVID.).REVIEW OF SYSTEMSThe patient has not had weight loss. No muscle aches, eye irritation, sore throat, nasal discharge or sinusdrainage. No nausea, vomi ting, abdominal pain, diarrhea or black stools. No headache, faintingepisodes, blurred vision, difficulty with urination or skin rash. No enlarged lymph nodes. All othersystems reviewed and are negative.PAST HISTORYSee nurses notes. Problems: Acute Myocardial Infarction. Heart Disease. Hypertension. Renal Failure. Pulmonary Edema. Lung Disease. Hypokalemia. Nephropathy. Prostate Cancer. Diabetes Mellitus. COPD - Chronic Obstructive Pulmonary Disease. GI Disease. Abnormal Test. Asthma. Cellulitis. Bronchospasm. Respiratory Failure. 2 Clinical Report - Physicians/[facility] Emergency Department [address] [place] [address] Phone #: ext- [phone] 03/29/2020 19:35 Patient: CASSIDY VARGHESE Sex: M : 1940 Age: 79y Weakness. Sepsis (disorder). Additional Surgeries: Amputation Lower Extremity. Nephrectomy. Prostatectomy. Toe surgery. Medications: Symbicort Inhalation (Aerosol 160-4.5 mcg/act) 2puffs, 2x a day. Nepro Oral 1-2 glasses, daily. Colace Oral (Capsule 100 mg) 2 capsules, daily. Aspirin Oral (Tablet Chewable 81 mg) 1 tablet, daily. Albuterol Sulfate Inhalation (Nebulization Solution (2.5 MG/3ML) 0.083%) 1 unit dose, as needed. Atorvastatin Calcium Oral 40 mg, daily. Nortriptyline HCl Oral (Capsule 10 mg) 3caps, 3x a day. Plavix Oral 75 mg, daily. Sensipar Oral (Tablet 60 mg) 1 tablet, every other day. Renvela Oral (Tablet 800 mg) 1 tablet, 3x a day. Omeprazole Oral 20 mg, daily. Midodrine HCl Oral (Tablet 5 mg) 1 tablet, 3x a day (SBP [id number]). Allergies: Amlodine. Hydrolazine. Indocin. Minocodil. Mivcera. OPIODS.SOCIAL HISTORYFormer smoker, end date 1986. No alcohol use or drug use.ADDITIONAL NOTESThe nursing notes have been reviewed.PHYSICAL EXAMVital Signs: 03/29/2020 20:01 BP: 114/77. MAP: 89. HR: 100. RR: 28. O2 saturation: 100%.03/29/2020 19:39 BP: lying 114/83. MAP: 93. HR: 102. RR: 20. O2 saturation: 83% on room air. Temp:98.1 F. Pain level now: 8/10. Oxygen saturation: room air- oxygen saturation low.Appearance: Anxious. Patient in mild distress.Eyes: Pupils equal, round and reactive to light. Eyes normal inspection. No pale conjunctivae or scleralicterus.Neck: Normal inspection. No jugular venous distention. Neck supple. 3 Clinical Report - Physicians/[facility] Emergency Department [address] [place] [address] Phone #: alr- [phone] 03/29/2020 19:35 Patient: CASSIDY VARGHESE Sex: M : 1940 Age: 79y CVS: Normal heart rate and rhythm. Heart sounds normal. Pulses normal. Respiratory: No respiratory distress. Decreased air movement. Painless inspiration. Moderate crackles present in the bases bilaterally. No accessory muscle use, retractions, prolonged expiration, splinting or wheezes. No stridor or chest wall tenderness. (crackles on both bases). Abdomen: Nontender. No organomegaly. Not soft. Back: Normal inspection. Skin: Skin warm. Normal skin color. Normal skin turgor. Extremities: Moderate 2+ pitting edema of the right lower extremity involving the foot, ankle and lower leg. (AKA in the LLE,). Neuro: Oriented X 3. No motor deficit. No sensory deficit.LABS, X-RAYS, AND EKGEKG: EKG time: 19:40 03/29/2020. Rate: 102. Tachycardia. Normal P waves. Normal QRS complex.old septal infarct. EKG unchanged when compared with prior EKG. (Feb 122019). The study has beeninterpreted contemporaneously by me. The study has been independently viewed by me. The EKGappears to be a good tracing. I agree with and confirm the computer reading of the EKG. Interpretationtime: 19:54 03/29/2020.Chest X-ray: (Findings:MEDIASTINUM:Minimal cardiomegaly is noted. Aortic silhouette is not enlarged. Trachea is within midline. Prominent right hilum likely due to enlarged pulmonary vessels and less likely due to adenopathy. Consider follow-up exam for resolution of this finding. LUNGS: Small bowel pleural effusions. Prominent pulmonary vessels centrally. OTHER: Osseous structures are within normal limits for age and body habitus. Impression Congestive heart failure. Prominent right hilum likely due to enlarged pulmonary vessels and less likely due to adenopathy. Consider follow-up exam for resolution of this finding. Electronically signed on Mar 29, 2020 10:08:32 PM EST by: Bonifacio Zavala MD Diplomate, [place] [employer]). Laboratory Tests: CBC w Diff: (MIKE: 03/29/2020 20:50) ( MsgRcvd 03/29/2020 21:04) Final results Test Result Flag Units (Reference) 4 Clinical Report - Physicians/[facility] Emergency Department [address] [place] [address] Phone #: ext- [phone] 03/29/2020 19:35 Patient: CASSIDY VARGHESE Sex: M : 1940 Age: 79y CBC W/AUTOMATED DIFF COMPLETE BLOOD COUNT WBC 6.2 10/uL (4.2 - 11.0) RBC 2.61 L 10/uL (4.50 - 6.30) HEMOGLOBIN 8.0 L g/dL (14.0 - 16.0) HEMATOCRIT 25.2 L % (41.0 - 51.0) MCV 96.6 H fL (80.0 - 94.0) MCH 30.7 pg (27.0 - 34.0) MCHC 31.7 g/dL (31.0 - 36.0) RDW 15.6 H % (11.5 - 14.8) PLATELETS 241 10/uL (150 - 450) MPV 10.5 H fL (7.4 - 10.4) NEUT 53.4 % (37.0 - 80.0) LYMPH 31.5 % (25.0 - 40.0) MONO 8.5 H % (3.0 - 8.0) EOS 5.7 % (0.0 - 7.0) BASO 0.7 % (0.0 - 2.0) %IG 0.2 H % (0.0 - 0.0) %NRBC 0.0 % (0.0 - 0.0) #NEUT 3.29 10/uL (2.00 - 6.90) #LYMPH 1.94 10/uL (0.60 - 3.40) #MONO 0.52 10/uL (0.00 - 0.90) #EOS 0.35 10/uL (0.00 - 0.70) #BASO 0.04 10/uL (0.00 - 0.20) #IG 0.01 10/uL (0.00 - 0.10) #NRBC 0.00 10/uL (0.00 - 0.00) MANUAL DIFF NOT INDICATED RBC MORPH NOT INDICATEDTroponin-T: (MIKE: 03/29/2020 20:50) ( [facility] [place] 21[place]35[place] Final results Test Result Flag Units (Reference) TROPONIN T 0.23 HH NG/ML (0.00 - 0.10) CALL/ READ BACK JAYDON IN ED BY: TALITA DATE/TIME 149981/4140 TROPONIN T0.1 ng/ml Recommended as the clinical threshold value forTroponin T.CMP: (MIKE: 03/29/2020 20:50) ( MsgRcvd 03/29/2020 21:46) Final results Test Result Flag Units (Reference) COMPREHENSIVE METABOLIC PANEL COMPREHENSIVE METABOLIC PANEL SODIUM 137 mEq/L (134 - 153) POTASSIUM 5.5 H mEq/L (3.6 - 5.0) CHLORIDE 96 L mEq/L (98 - 107) CO2 25 MEQ/L (22 - 30) GLUCOSE 87 MG/DL (65 - 110) BUN 47 H MG/DL (7 - 21) CREATININE 10.6 HH MG/DL (0.7 - 1.5) CALL/ READ BACK TAHIRA IN ED BY: TALITA DATE/TIME 386309/2 BUN/CREAT 4 L (8 - 27) TOTAL PROTEIN 5.3 L G/DL (6.3 - 8.2) ALBUMIN 3.3 L G/DL (3.9 - 5.0) GLOBULIN 2.0 L GM/DL (2.4 - 3.2) A/G RATIO 1.7 (0.8 - 2.0) CALCIUM 9.2 MG/DL (8.4 - 10.2) 5 Clinical Report - Physicians/[facility] Emergency Department [address] [place] [address] Phone #: ext- [phone] 03/29/2020 19:35 Patient: CASSIDY VARGHESE Sex: M : 1940 Age: 79y TOTAL BILI <0.7 MG/DL (0.2 - 1.3) ALKALINE PHOS 67 U/L (38 - 126) SGOT/AST 15 U/L (5 - 40) SGPT/ALT 21 U/L (7 - 56) ANION GAP 16.0 mmol/L (8.0 - 16.0) AGE 79 yrs NON-AA GFR 5 mL/min AFR AMER GFR 6 mL/min Male GFR Interprentation 20-49 yrs >60 mL/min Auehxp33-25 yrs >56 mL/min Normal 60-69 yrs >49 mL/min Normal 70-79yrs>42 mL/min Normal 80 and above >35 mL/min Normal Female GFRInterpretation 20-39 yrs >60 mL/min Normal 40-49 yrs >58 mL/minNormal 50- 59 yrs >51 mL/min Normal 60-69 yrs >45 mL/min Syxkzc57-67 yrs >39 mL/min Normal 80 and above >32 mL/min NormalBNP: (MIKE: 03/29/2020 20:50) ( MsgRcvd 03/29/2020 21:54) Final results Test Result Flag Units (Reference) BNP >14279 H PG/ML (0 - 450)PT/INR: (MIKE: 03/29/2020 20:50) ( MsgRcvd 03/29/2020 21:09) Final results Test Result Flag Units (Reference) PROTIME 13.8 SECONDS (11.0 - 15.5) INR 1.01 (0.93 - 1.23) \\BLDo\\INR INTERPRETATION\\BLDx\\ Therapeutic range for Coumadin andrelated oral anticoagulants. -International Normalized Ratio (INR): 2.0 - 3.0 for VenousThrombosis, Pulmonary Embolus, Tissue heart valves, Acute TN, Atrial Fibrillation, Valvular heartdisease and recurrent Systemic Embolism. -International Normalized Ratio (INR): 2.5 - 3.5for Mechanical Prosthetic valve.Chest Portable 1 View: (MIKE: 03/29/2020 19:57) ( RigRcvd 03/29/2020 22:09) Final resultsCHEST PORTABLEReason(s): CongestionTRANSPORTATION: P IV? O2? Oxygen?(Yes) Room: [place] [address] ---------NAME--------- NUMBER SEX AGE ADMIT DISC. XRAY# F/C TYPE ABIMAEL Fair [id number] M 03/29/20 [id number] MB4 E/R DATE OF : 1940 M/R# [id number] PH#: [phone] TR-05 LOCATION: EMERGENCY DEPT TRANSCRIBED: 03/29/20 22:08 IF CHEST PORTABLE [id number] COMPLETED:03/29/20 22:09 eli 947 Reason(s): Congestion Shortness of Breath PHYSICIAN: AG R A D I O L O G Y R E P O R T PATIENT HISTORY: CONGESTION. Patient male. Patient shielded. Verification of 2 patient identifiers performed. [facility] CR - Chest X-ray (CXR) 6 Clinical Report - Physicians/[facility] Emergency Department [address] [place] [address] Phone #: ext- [phone] 03/29/2020 19:35 Patient: CASSIDY VARGHESE Sex: M : 1940 Age: 79y History: possible pneumothorax (Hx) Technique: XR CHEST 1 VIEW Comparison: No comparison study available. Findings: MEDIASTINUM: Minimal cardiomegaly is noted. Aortic silhouette is not enlarged. Trachea is within midline. Prominent right hilum likely due to enlarged pulmonary vessels and less likely due to adenopathy. Consider follow-up exam for resolution of this finding. LUNGS: Small bowel pleural effusions. Prominent pulmonary vessels centrally. OTHER: Osseous structures are within normal limits for age and body habitus. IMPRESSIONS: Congestive heart failure. Prominent right hilum likely due to enlarged pulmonary vessels and less likely due to adenopathy. Consider follow-up exam for resolution of this finding. Electronically Signed By: Bonifacio Zavala M.D. , Radiologist Date/Time: 03/29/20 22:08.PROGRESS AND PROCEDURESCourse of Care: 21:46 03/29/20. Patient noted to have worsening anemia with Hct of 25 from 27 andworsening renal failure creatinine increased to 10.6 from 9.6 in February. his troponin is .33 up from.11 last month. CXR showed increased vascular markings and possible infiltrate on the RML vs mass 22:08 03/29/20. [place] [address]. will give lasix and transfer patient to [facility]. he also has elevated troponin. will give aspirin and kayexalate 22:18 03/29/20. i discussed the results with the patient and advised admission. however there are no beds in the hospital. will call [facility] to transfer the patient 22:40 03/29/20. patient given kayexalate for hyperkalemia, aspirin for elevated troponin as well as lasix for fluid overload. however, patient will need dialysis and admission as he is hypoxic on room air and CXR showed CHF 23:30 03/29/20. rapid COVID test is negative. patient's o2 sat drops to 86 without o2. he is short of breath on minimal exertion and talking. he refused kayaxelate and lasix. he is due for peritoneal dialysis at midnight. however we do not do peritoneal dialysis here. spoke with [facility], they do not 7 Clinical Report - Physicians/Mid [facility] Emergency Department [address] [place] [address] Phone #: ext- [phone] 03/29/2020 19:35 Patient: CASSIDY VARGHESE Sex: M : 1940 Age: 79y have telemetry beds at this time. called [facility] to transfer patient. patient agreed to be transferred to [place]. Discussed the case with DR Espinosa ER attending who accepted the patient. Critical care performed (60 minutes). Time includes: direct patient care, patient reassessment, coordination of patient care, interpretation of data (laboratory data, pulse oximetry, chest xrays and prior electrocardiograms), review of patient's medical records, medical consultation and documentation of patient care- see progress notes. Procedures included in critical care time: peripheral IV placement and phlebotomy- see progress notes. Discussed case with health care provider (ronny at [facility] 23:35). Disposition: Benefits, risks and alternatives to transfer explained. Transferred to [facility]. Summary of care (CCDA) provided to transport team and EMS via paper. 23:36. UTI (catheter associated) was not present prior to transfer. Pressure ulcer was not present prior to transfer. Vascular infection (catheter associated) was not present prior to transfer. Surgical site infection was not present prior to transfer.CLINICAL IMPRESSION Acute moderate left ventricular congestive heart failure. Severe chronic renal failure- end stage disease. Hypoxia. Hyperkalemia; (elevated troponin,).(Electronically signed by Sharron Luong 03/30/2020 06:40) Name Value Range Interpretation Code Description Data Kevin rce(s) Supporting Document(s) ID Date Data Source [id number] 03/30/2020 06:19:56 AM EST [facility] Name Value Range Interpretation Code Description Data Kevin rce(s) Supporting Document(s) MUSE EKG PDF encoded [facility] spital RCVCXi3lRmXTZzKti1IgTtIrLFOeYI0cgrf5U4T7zMDfG8PobEPbn5lzS4GpM6FaMVEqJZXVIT6QnYZx jb2 [file] b/q1l3oVr1fHWG35E7603KzYwsBhk/3Sf+3102Qt/dwsx8VAu/c791ni9n7941mZ8j/7cg9UrQ/a664b gz/8ti8qqk/3ko4293789ibohq/9yj66hT981CN7vdjWWZ72qQ9/LaTXL/+0vt+/+wqA7DYa/fxjk2w9 q7/350gwm5N6j++Mjl7dd7qR+kpaNNl0hl5sMp/07/ r7inQ89386e4Blma2Migwylim0mjX2FjLLGVzP4/cdam/IVyNjdP++59QeX61NdtKaU8mx8bx7Ud+75K z7dy59nurO9q39Tr9SyduannI4s1Fs6j7hkyiEGn0+AH+AP8Ev+KxlJKwK3k7z0c298Jwbc/6/XfLVuf O5Hl4IY4ADvEYU6CusF/gd/A7+AH+XK2CNyrC1lVlZ 7+S41yjGG2FV7pv+rjrC1ypQl0z772IYmk8I5vrI9duSbQ/gD/An+Xnnnc0Mq/IZx/O3Uxch0ElMV471 g1/we4gNYds3Cg/nISk782E21gHsE99TvCPlV5OWE55VBc/Rl3KUuP/vK/nZ209ZVddY+rbN7glCPmNo zACw5Ej6Iloa22fI+ze8srz9nxBauAumqck2HM9G9x /IVzeN+ouM3Zacm/AXnl/gb/U77vt0XA+yrpgO75V45mf/Dr8AZbfrv/fd+E6j95hdKX9a5lWvqL/skq +0lkK+6pKvdFAs+Ur/aMlXWoclXylih+MjyiQFg4JXE36M+iP16NTyMeqFE/Rsw9t84+BD6Vo4L/z55O 0u+eqmwXfwHfwF/gJ/g79R/0Y0865csOJm4X6zQ/Cr crAe7w5aqw/BC2skFx1JbcCz3Dd24r6bJyd7+Rq5zgqw6RP0jv028aVvyAp9P/GUQ24E50bsGyLafI/g v19R4M1lp/RX+bxX/WnUM3I0x8gp6VN4k2BH0uapwpOON6696sTh6a+Z7l2XyyR9GmIU+OK7Ug99636L r5XM4Dunw5HrnGx2EdUV3+Bv8Eu/MSRfiS/5KtaEIf lKZUl/wXwEg4E0B1+ggw5099QmCV7Ja9rucOaIzoI1YbsECuQpKr+ZIVLVw2OSxDPWT/YLNw3+Dr6e31 bpA/6xn6aXH4rSfRehkhoEM6+aloP48r+VpfSF9gu+7nhOlJMOHT3aM919xhzZ1Uj5Cm0i+Ur9L/kq+S U/p5o0yAMJ3xd5uKHeqln/gY/vaxjPhvFsGM+SrzRO JF/jLAgHs8Mn6j8HJgJQIBVqLP/YI3vInn5xQrLS4A7XZukRTV2qZ3mcB02YBcgm2+PZ5Zn0O0cQE6k2 KrYZ7mLEy3/x77IvQM01eMS6Hdl3VK/ST46F+bvwfRe+r/OM5hdpunvG4PF1RhqlhY0wBi8pTj4Ft/Z2 17u/7nwK5BHvgeHhaVng4uefShs+mEFWCVO56TJv7L dz8Cdf+el6/rf/3Zn/b/+7Nad+7mIo6OmYspAmA5lyF/nqr3+30r/9ter/k6/cVP+zhJVM67XQSCE117 EU+Ld/w7R42Zbd+PTab838nDA4uucUTFWcvcQYQT4jrz/9/k7+t26qPHICBn24Z+/+vm/Luis Antonio++r3QaYf +9gpd4qT+0Zw/go5PDxn69lw+Qr/rK9O+7hCwaln+5 Zw/Dv/x8Nz6Ljf6P/k86DQFYjBfg36L9FdCfYCGkQZ/JLof16Wzt+Jtdb049ZzD+KTOHsV/I6pFwmpvg XztHTOguF5b/Kza00d73Nv3mD9CFgCVdS8+g4zkpwkEjmjFpG+VcvH3mNas/gb/Ar/3C/Gq/ML/aL8yv 2kvR04K4mxH8Sc7CYOC+iEl9VqwnbMEv4I/wJ/gTfA NmuJyL27fSXr7Fhzbs+i5t4/mD58/25tTBd7/tdb4we+33Z6/9/uy135+99Bthu/kwNhfb5vvrr7n51Q 90t8f8Kv3zi6/rd25yR504mfiIst2mU1YEd5EJ72Xc+A38Ov+do85/4sgduaiRA14J+yyifVT7S/xob6 Ydzzuej/beNPgb/I18DvI/xQ/56qXBb+T71EN4tEjN Az8gFawzZ1vZJLg57Yjip33IDqYAlSfjiO+sa4E0lt4ChDwN0b24474rN/br88jQ62x+ZnxoTl0gsDfR 73vEthYzwvygN6H80l4RO/1NWA76HDfaKZiuoOSrrBUm0QbfLa5y5z7H/8DH/PUGfq/8vVf+PsAf4E/w J/qDwyZw1Rd7Y/wFPtrraK+wzT35YiD9my8r1F6o2C qvSRorZumZ8jfR1hU7jdsfcIsa+AY+9spA7iTJc9R7yu4N5WL+Hfjdqjrsjt8llW/dwG/gY32G/mpCfz V36Z/Nmk87D5HRlQ/srMJmV6wuKcLmd7F9+JFapK7raYu70TfY+PddIvbRU61Cs/279Qlx6jGc9hFKw5 B1RGKPH0EJ5gsqrS78Toc2l/VK/Jry4fxC4hcgtMP3 chHA7mTVlhAzdx/kDfvq+9pX89e+4d7wghvY74Oi/mOEkzZ0GmBiR9cB4fcou/N9+wx8f/sR+0q/Yd8C u0734fceX/vq/Ne+Ol+uf63BuNO6rZlv18gKB9y3l73P/LVW+mdrA8+XvGF5/0r8+hhWaEEcXsLrsR79 B3+9/5VLhck2Eg+Df8A/sAh7ypWuD/SgT6hd1WJxPU xr6k1krv7h7baRwcli0xXtg/Z2tLeX/Bt66IrSdPTBzWe/wT/go72j/n93Ad2gcPzl/2jgdzzfkc+o/C QzATcZZ0YI4762VbcE/vi+kq/kE97ViyL0hR/81XpvDxx5MyZx2qojNH246r80juo+EB4EznCuLqp6Cl fx8wf7sMEz+EqYnjThQhrFQef097ijZmo+194vn/+1 9/v0zG//y0Y5t3ebR+vzO+/vup7H12X//7Ge+e33PZ/57fc96/nb7+tIODrX2cz7RYFmrn22wjS4gqy8 +653+9u/d47mwbdIgSfeExDRGz/qi1Xcb9tHFj11L+GtsnEl6AdH+f++b26gaq5KS+thl/y507uUnH7q Noq6YkJx0w4IAs7FWfy+CflK+apxMLqsiLzqP64zko oK+qeaio2vHrt3HPNYibnT8kEbVUsMkqzdo9vN/9hdD4ClPjzvM0b+ggok7QZ0T/hVd0yy53OU/5jOBz Bg14j3Qg0p2jb2vSh8G6FVzSataBKVjkoXwAegKSxUH+3V+WCmN+q5Ue4B/rPc2nZDjLQ5xf/E91JDaX h9KbCDkjvjr4WuhaUypUjtfNvvnNosix91YcG3+l/y VaYP+Kf4kq+Up+SrTLd6/cS1OmgzfDqEFmUL7JiVU/SRwc20T3/Bx3g+aO9Bew/ae9Deg/osfi6Fbawz 6Qt94T9n/+r7+lfj2aW/OuIPq/QE/9de//V5t89wKs8C90UXo+tDGvwN/gb/gH+KH/KVxxroIV/p3pSH xPXuAlcGFne7b+73nvE4Wi2JhcG/tVdpq/l2R43usX 9+tInphnJ9cqxq/dM2nj/ak5ln8bCGtZ0jrNvL/GaVrvHskq+IM1120508KRa5OBryS43RDxo3oi/eS7 /zxrJS14JW1B9ceKmFQ28z0Bv7P/tItrh9E2k+yqG/cuivHPorh/7Kob/mDtQe0O/oIDuR27U48YvCz2 roVdf5aqGc7iZpE+pf+fhyyD2SshinW2GnqjQSgEpy sOVibPnjHRlru6Uxsx/GSJw20x55fP/to60L1T3R/NK3u/BZmdk9m0c22Vmuw/o1Vm3Qebe7M/wJ/gQf 9WA411pl0ftvdgkOw7Y0U085I65OZqBGpe10i96oV/azQ09KtaHaoSF16vXvy1/6gwvNs9W/cV20oQK/ 7Z81qPf8hgu7u2grfet8Iz/j+bpv5nk+mApI091C+C q2DH3556h8CltZ478gXu27LI2v701ZdG0hed/TF38w01RxJF13R95Po+Or9HW+Sl/nq/V0dqjExmjkQG d/q98Rx743s5lCHh5+Bx/kkCM2b1eoswZ4BV53bxUCtVW0vvOkH54zZI/2Bn+qffzx80o7my4Jmd/yg/ PpGA6HhWRHxIzK7zjbyCmTfu2Cm1I1+VQ6RwxwLeid g/QaEF50B/wNPtarU+vz+kq/sb7St6+g0aacA7B+4se1knR54CRj0k0njV/8jcQQqyH1Gj0W0/XVeF7S X22ly/5ofXV/H7P7uE35XbzNg/AV8tXI/LA929LM+fw8hISbkdhbA+QrnSOvkK++rmd++69F12iK++1b jXz62Sf9bDawe5+JGTmix4z72sY70c0GklkmeY3+6X 676Xl/5+EJ51w0YYF/Ys3v6foh4vQ/e+5zWD258Noqj0oD0grbLmGCeW05saouv9voiCT75LB/xaX77a dDtDq9s7J0ji1iPQfbhv+Z/oXEbdfF7rwuW/UsK+11o2d71j097jYot6jprq7sSeS5baFz/uTC/avVyx 0hvF1e6fCZGEC6VEtI/O4Bg9mw20RY/dWSfKV+kHxl mbZKT/An+AZ+nRVb5FpAwoOGXnQEsh3CCdkF+fxGPvX/HEAgDQwre3wIb2TsfT/gd/IF8sw2BdW3om1W 7YI3rP48S6+vNG5cfnV/wN/gb/AP+HPfdNNZom6J5lsgNw8lfgEy5zgij1p+dkm+fwEHk2Wi9Uajz+Tv qGedLyzJV/kuvq/h+0q+ckumF39oeX9E1AaJ6pINOR u082ZfwWhcc8n+aEm+yrSBj/HsGM/u4K/qB+kxXj0YU86u4/g9eeI1X1vl+qtMN/R9H5m8F/jbvXBz3d NL+szcsdOmg2ql9L77Y0zv86kGEb9yf3ksY00Vn/Apo49yV/ij98q64Tdjaj0p3as/cl16gkA4jue5Y8 k51F42ig/T467Lx9yln7zg1gyc1/nC2nW+sHaddy+c V20m08Fr5/dg2dPfdk7pD01P+vZ16j7/Of2UU515Lf8S5ZZCRag7a8+dCb6BX/oc32Z18ojDWyQB1E5s 6T6r8D1e2E+uU/Yp+bh4xL875Feo09fy31ih78orozgBgI8r2J/ub4I/rO3lidco2r/tj/bn4C/wyz5l vpy1bSB3AP+2w6G9Xg15lCTAHXbzw93L8C9d/AE+2t rS8buUU/QS8DYVg1DrbE4uiZAIo9lX/0Lt95S2v68F0i01BBfd0/4P1qHbw0/c0W76C5tS/mj32h/tPs E38Gu/qQiwK4C12Wc+7a4Af8U+G/oHqkic1ib9UExHooXZkssSW+3Rwe/gaz/AoI3hkI+8x0BAyy/8M2 h3A3kte0WX9P/wo2aW5JQ8+snkR130rv+8ZT+Yz9R9 /g3/DHtiPE+M51n+KymMD3Yi3E/EIED84P5kd3Vt9I/2xPedtR/oV327pg5gt8sl9si8td6zj8ma8pMy Vo8A4htda5+VjftX2+u6x3iIodcm2UK4ux8IQ/UQzdY3WsDk69SukX7rw+A4G98Cc1I4Hq0boD0Mc2Xs kq+5Hyb56gn933t5hg9k8+N10QEhL5v/gj/BN+RjyM rFR3wSkdv64zigs/LdwU8lt+M9qyQo2lp4rqf+cqXxfVftj/aq+0R96y83ypFtvW0iT7ge+TeAIT0e/7 5LiroYh5a/ed5XpYYu+Tj/bu73EirQ+/uz0bSNvh9u2d52u/32E/LbjvvtOo/ecb99a+7H/sZ26UaXs5 stcb/dNcfjfrvOXLbutx/lH/fbQzbbut+i4tvotghc vos9iJoh77+ev/3+Cv+kO+14k6v6rjb6WbD42P1b30tiE+hW1ec77qr009pad0llmo7+xI/77elg7/d9 u/LP++2udPU/6hbi9G5F/0jgq6or/G/Mcclellan/4KNuSrnfKV+HFB0Tixkbt2td/St2/cv9oH4/qFjjM5zW89 0l/KmFtGY2798k+cr/AV26sr4EMZ+e/2NqfnS9ww6U oPPV/mJ81s7ZfLYqwGIo8fldkI/fZMH/JJ7ws519L+5Eb6IflJzel/gF/6r1Cnn3BgAK/AN+TjyMfBX+ Cv6p+2kc+u/ml1n+NaoAUD4SgmbwvjFajI46f/e3rtfw/vPv6plkm03uLnMcz3D+7uvY0u75B02SsIbB x6ZH10w20fsQvx8NnsL7ttecY+eHA+eCBfHchXB/LV gXx1cP/e5Q9Tch5lx/vLQ0N9xeSFOgRJr/Ir0A1Nu7R74B4e4Z/OOODX/+jgfvvB/faD++0H+qsD/dWB /rfSz8Eu/X/JlW2irVmFX+N5Yv6m/irT4C/y5h1FeDd371x/IH/ZTrz4opS4mhN/ClsogfQOO1952Xw/ qebq9nQ7yt7OSvpNI/8bhRD0grKt9YIV6X9fH2U/+V jtj47V/xiON7Bg4ghtpBcaOHmwGT56l+Nlv3+8g9/BH+AP8Gu/cGQ/qHrifvtxw/OO+eqnJcp6h/PBg/ VP84spK/BL/1qB0yvuLkQ/yj/XNJ59Uz6KEyI3IIOz+BN8A7/2+3kWmd4pN2+Tm3Ve7He+96za/55V+9 +k9q0R7zZ/1ed3Bbhm7a7f78v3eM+Gs/N75hRr1/n1 XD4nqrIe+8Gz6/3b4Hc38Hwh96hswFuuUqT/50B/hN6c0n0b2jYuF/5zzungD/AF6jM1qg474D+dg/Ye R7mO/Ms+5Zw6/v7i2EcC4dMh9Px4I++e7wP/sKsYq8Ygz0c0K1Su//5YJlrQl1th6qjs0yaei+I2XF9x 69yIFHLJ43qV+39aGeIxZT6296XyDbzUB3O1cvf1vJ opgrDJrWy6AZLJ2C8qnqENsE9hhLm3ugNlc9ZyvDI/Em+U/hFwT/b29ylqjZn2IseI4Vb+z9hWZqPLJO AGnX7SDHiCy8N9sI8XnwJ0cEexAUYpIB06LwuExMTa543hDAf9T91CFb/QL+mDi4XeKMV+qP637UjeA+ Qq3hqbuAdBy0UaFWfTaIZb7W8QtGNF2GMCoSpqRx5w mUEuE2MZy+R23RTta68mXzmj+hXAjLN9FDPRuWq+TM5Z5RRCHcLF3N8z/zSooWe3r3/uzWe/1iB9n0pZ tomYpw4TsEtv0j83N0+v8ck35IR3e/jt9ke+W6dkb6Xco/tfzNvvbv5/hN3d/u5zpod5N/H28L/YtLHp /5J4VvB/RF2j/xF2z/D/iLhIfx+Lm/VvGygAOd4LoE f+QdlQ9NygBk/tws6W/rP6qPtn2ddG4F8qqZ/sSGfg7jz+40Am8T/Crk+7PyKUKrcGcas+M9VKln8BOx dt8cm142U16R1viV9kYuUihMiOyAgey1D4G5irdDbyaIVa2uWf5c3DwD+clinical product manager+NqVMGWe2wmtN/hREqqVf [file] 94I3Y/mbvvYkT671IIZbfASty1GpUu+OKI/FPG/nrDwA6AKfMF/FBpPyWGxgKI/CNcY8KGZJXyIc/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 [file] Cdi5KtLJLfCAVWAz2+GyY2PVI9uBYuZkm4WWH0JuzdHPLFPg== ID Date Data Source [id number] 03/30/2020 06:19:56 AM EST [facility] Name Value Range Interpretation Code Description Data Kevin rce(s) Supporting Document(s) MUSE EKG PDF encoded [facility] WRUWRy8xQpPRBcIkd0AyDiKuRUWqFC6wmom7E6M5eRMuM9KjeEBjt1enB5PnX0MoMLJtXONOVM1VqZCi jb2 [file] [facility]/VHCp957c/39/D5FfwKG2DhnY9On00L8g6ErX [file] oQyEMhDKQCgDoQyEMhDKQCgDoQyEMhDKQCgDpQyUMl FSIBlLeAmJYtVHHVkDqJvVMzIFVZxXrGl3i4XxGjdML0Z8hqFrRXlbDbtDkuUu1G7Xpxd0nxe9zVtU57 pysvZh0KehoIWXuJqDDZug6VFgCL3xC4jPKCwNDcE9YI2EJxJ68xrsDEgNy44Y/g6UwDP638VUAD06XQ oHWBk98nB5Zcnp5HDm6Csv9z67GVGmBw9QCn+zHkt3 dXro66bx0n2SBUIDCYCOZBQ4ee2tLxuOOKruC3gBHhzEEcRyyAgNiYMBoSDNIg7sKs2NA+KdteqxVMdx Ms2ynqaNeUKsMgpGQHYMxHQekNiOelWwSHNXR+GT0zF1ipqxNg1hFWyjtFgkVmp1Sh/6ndemDDZlsCmD EPolojKmMdXg1ZuRoz4ym0Aaq+B8qpisxccYJLQ5tl eEcd0XdP38GEgle3U+kopZ5afu256I5fZvqtIFeoBoUhAtUpj0dKojc3fik2ek784UG9kG26mouOLr6R SeuKoDGZSe+Du5UY9Wm6DJgTuObMH7eyM3EIiZaHf+RSK3z3Vlll1PATbpZ3cL7Yx7lLnFqLI5rSoPRn Salomón/Hfpr85EBPp91ZXh0FhlUgvFsNQqQsMRAINBEUP cKFqHNmYz4Lzr0tpg2fuBvoLMNZZaXAQTuyHSPFFhHPVVhkFGWOWlYVZ4VbTMRgMzAfINmYWJQgPsGnQ ZmGDi3jJHi7Fn9HJI0qejhXkYK0iErtivYbLD1zOgpwdnMTfTuO6vgmR96dHMwMq4tMkz7RDL3J730zC pnXpOLd+ncV713NxF/bcqn0GKcWc6tOz76LZDaibJW 6LCFN6Lc8F36+TfbqP5q34RAcaGyOaM4Vhu8GkvruaPrJBmenmNr5Zph+s17LIHc9pVlt/T/uqgt6dT2 M9xMee8NKLroacPGGl8yZL1dQLEb/oifr+Q56mxCxO3/uuJ+i8+2b7CXqdILkqYJ2/yUgegJuU1Hzfz5 y9iRM9it+HzRrRl3gMF6i9lZnCqAA4kpeI7OC1mufa xOwXhWwDoAe8sulkpC0P8Nh6IsWbHJ3M16ldkOya8nH7PZZBOqxwmt1UfLsXwEkbWshNopzkUrKvfXXD NQpOynoAEoGTwDkNsnfbDoDJlIkXtqeprWzng1hpLfa7XhSOpHETQvp5UzO9VNFiXnDteULPwQkdYU17 3pgNFwTnKvh9RAAjwQGZfFal5QN3OvO6m2F5r1N5s7 D5LWz+Lmz+Lmz+OmI3UpDe+FikIPsB7OjlizR3oMSEdMzzFvc+Coc8A9Ag+RuklW9mmEkIB57EpJSa5D SXIp47aeXPG2tQrwdCuWoeZBi44UGzmLU8XfW3ap6R82sqWsC9lS1+U7Gv9ec9ijuaOytOftD2AKFajo OjvItN8XNg9GExJft9AN/nVlppS9ptO+ih3Rlm5Ow+ Tnr93b0plz2hfbWfzbESckCJykk7P6U1HV2DUxPHQXnx78Pj22bOtX/597/+13/+iVgWP3+j/c///ed/ /B/553/+85//98///s+/gvhTK/2f//5XxLhE+7/+WGGe2L30u7G8J1o24BRD/uHzdl5lQ1M45UnbKeMN rmBm8WptbS2BZDJrfTs/odT+2fgfGkt63s/DRvuHS+ V9jM13V2dhPnKPIpSCdVEmeBcw6h/z0xHfc/5UxDcuxXh/RcTE399/fHL+qYdP/j/u9R2BaeedrBxvDu oi12c3IyZ5Hk0OBb/XdrTj/Zpm+1iqfWL2rrPz/c7E4/2+JgI2zdF/Vh3oDp4rN/FEdCcdJBzmQuR7ot Ab+AZ+gB/gF/zqdQ5AxnUx7oDxrAgDkbW+N94/szLx v/F+7Ql8Al/AF/JHv77jsrr6blsJoV/gG/xJitVu1MgtMzIr7NsjHiC4qxaT43ztjmhVu5m1gmzij7Nf lqifUk0dX6D4g8lXI/ANfAM/wA/wC/k45fhXKzest/F48oXrf+zT808nrgjPw501C/09OtYrx/f70+je d+2p99i2nvPu04PqFbjHsJ6fhId+e33z2/cgFg7Cci aMhMJemFSwu6w1q/V7emchCmk204NtPZL+/9S3v/bM9g8/umnBd3ud/pVhrv5BmzDObYhIlHFn9Nbmc0 GYkmWJKKIf0Bg+DAEVmdz11jVu+/X8+aagGG1woV0nDklEe+Ab+AF+gF/gt/K7QufYRAmT2wkN7bCx+M Thh7jq1ZolyuE30WhhdXilHOgZK6ZR9Oz6albWo2Yj cSWM4LvSA+GZulmZCzXyGFRDhi4KtQfD60rZspftJRLaOc4SMtgBsKC9G+s6e31VU/K4q3Fvc1hSuDPH SkSLJ2Nu8l7P91dBws0Rt6l9i8ndSQYhwInOz/j7GG/tBDrMDmWOMXdxzku6n+3AHc+zcZ2N6//Geyog 8QbmQjRW2pweA6OSv/Ge+E2JIJC/95A6Tuth91cOpB joVen0Net9DcfcxEIIhUvARlb20r30z0p17us+3vo5f/dEYekdC3sgu4nUV9C5/k4r/9I0Za4g+WuM91 urJkoJjF3zr7EObn+UlvOM+ayJa8+OTeM2Yx3ziT0zlc4/S83tXejmr3FYkNJ42J68O5/AD/AD/AK/ja 4b9KGwpES9Ubx+sgiyF3t6HiUZ5IKiyZcu7+tVxHN8 7Q18Az/PT2P0ocwwxUI6LxdTogLZpU9AFhh1sMOagMivRUclbn24bdRBmqm9B8wPF1yZ5JS3XT/Ab+M+ BskZNleR77/sbWe66sRSDmFb81wf7VkJWI/ocwWwjK5l54TwebSXtKI/wJ48bVDs/v723+5p9ASvyMC7 Wdsh16E/FbPkCEqUz7w8xg/rjyV21C0laV/gG/gB3v ZRhGOU/BITJK30qlIlbTo7W9MwdFhj9SUorUm5u6Iu6cd12pK/rfu15J5So0yrrh+pX+AdRq1i81JGsP 02Ywf34Mi4+Z9Q5auM33/Ul5GmDd3h09zJv43kzNQJ+no04QrKF7BZpYCy8826C/Wr1wa+gW/gB/gBfo HfD5+cX1PguWv4mbaVDNAhaCO+gU/gC/gCbqOfwfA8 /jzjcf4D56NIQo/alG07da8obpv8CVldIlU7s1g/M/YifAak8ktNgZrnJ4Kjlw0XIFK6eA/gE/j65v/M /rvOgD54xSnc/n4jhKK+v4egwP5tKyuWBcj1esXXFlrx6B2Qouy2T6Ortp1D2TpcVwR0htiiuKwc2fJS R2jAgUAu98lIT8QLo3/70YcFxQPZtOE1n/I5c/9Kq/ 7yO3M6wmXbMQ83tkfgyME38qo0u4nQosc37j2kj3+P9elnfyklEzwk1UEW+lW1J/AJvH9/5+pz7erTkQ W73X8n16by4Ly9KB9Md20wT+ttbn5kOgoWF3AIctDSj0tImks7fkh1suH+lfJM/eq1gW/gGzi+34Xvd+ E5IH8tD6P0lXZasZvdNy5XQ/AJfAFfPa+sf4+m9f7G BY6o20e1boGc/siJXgo0evb1+zutf3+j6t8tdI4cfF1/vzP3r/Mryh0n2+39Bkra8m7S6Rj1c3Ye21c5 OsbreL+pX+Xam/oIcpveg8ym4mmfg5T/4fZ165mayeRLGou+3m/qV/k8qV/lc6Z+VTi+7007gfnzK16A r5H7wsUGieeqyvQukLogQItt6jk+5lz+OkjNt451T9 6/d+BpD+wecg7Zm9BtQ9TDNDLX1uV4LWv227UyhA90T7d8A/evJPH8/U0cv7+n9Y2Z+lXK+eD7PXi/0K /zng26amsx59s4mQ4Y31LCA12H/eq1gd+e/+d+++aUvIAz4IQzlPI+X+0fupc6n4s4QhrBYq9QoqOOxR VZ22OP0+/uyI1vcW9J1+/t7zeCE+tqmSbIce3MSgfU V+AT++gC/gBty+dSMCEroNfAPfwA/wA/lRz41la/C143c/jaN8sbLiiM4b4Jrsln+xK39aL9vyGdx8 K0u8/Aso5bd8RlhcS5AraHle8b7cZyoJCk382Io23bO8MellyoypQc/aietA+/M7LG3/kfj7afxD+AJu 3z7/Lx8z1j45nket2/ooR90gd/JNRJBB+GXnyaN7Dd Hs8C4D9eoeEgpoAvhHY/ZUzLRcfBjdN56+bCfa4DiRg+8E2xkyHkiuRGfupxQecr5BpT7bt/dK/2C+r9 X+v1JvbrD/mO99ac+HpZ+rNeYO7wnohT6p4chql5+X9A++CkQKis318tjy+M9EM8wgOQtGo26Ww51/DO jOYt2qbGcZ4zzsLfoOQ9C5NXkqGKqFLp5pwLyjG5q7 A3fgG/gGjvEaxmtYrwzrVepXKc/Ur/IpnM5Z59sv753Pg6x2hb5OnGfwE9w69C2pepRV9ysJ/6H5Fzb3 rGSwmxsa00ek/q7DP/jamM/hH3ztC/h8ii7R4wHnnJK/l/AP1ncU/sH61ja+782iADMXeQkNASsEK6K/ 7fh+Z+Lx/BkwbAsb5Nav/25cH+sTxme0ig/wk6xKpn Z/V+1u7om1zL+2p6Yk1ZC+p3E75gi/4WJmnY4/Crc991zUPRfnWls4j8I0N6v98Q72rRrMZy5m4fe937 /d2s9SrwR5LUdnRgoTE+D5D5ic34cmk5BotNWvzC59Xk6XJ+AH+AFj30CH65TiiEypLw0YBjzKLwHc3F k9HMvzUjiTb+Ab+AHe+xuW+1ev/c0fk95/Wkt98yWN z2h2wwptcgJA1/zj4y90L/2q2gt4/x6Z9O+RSevPVvtXeS/Yh7B10k48DuxBNLor3Nx/IC1m880keCXj TqrL15doF6j1k7RTp0/tjSU5DDuXLc4fZ0lk+k6NLW0F0C49fedPsXD/PZsaru+fgOtrM3m66WI/GGuO lX8w2+jdRg09v9X+wG/jsX/3nHDZJ4tSosw7e0t+3z iT/54n9q/P1vPig2o75KA/Kp8/968kcfvsTZvt/6Qng0s9PGy/2XL/Kt8X/IM2e7/dZu/o0Br814iz28 irX283zMe/uX+H70SkH152hbumqnYxmhJweaVnp9BfmG10J9nvM/nPqjGj6Hr8+4/N0R9cTP4PSvrLI+ UAx3X52hxIknnPoV27Kbr7h/rTqRlyTgzDS7Hh4Wy0 spgaX4a98CQmfHnr/jqEPZYiYHZ70L7hoqhIT0WWxeRHNIbep+loD6on2Mc0XM5Og/5su/Um072cC9va 5fq52/734gcf6nmG7wR/ixn2RPkZ85fs00K47/598Z5N92M5+Trbbf/joikL4n/64s8mj3ge1Kli0g3f 0+kS5XgieU5SRh5GcvYwwC63g2pW0WM5Ud0OV3YJ6n Ad+Aa+gR/gB/yCzed9w8+vs9y/qeHc8unJtHtbsh6pBCi7Uhro4M/Kd5H7V/oNDx0d8w/le7/oO5Hlr9 q29/zJ/wivH8bpOzhQz3b/stq/im+q9q+q/eGe+1ev/T6OFja92xCeiV1ol3mi5Vd1Nq/VA2ELmtZswL PfwDfwA/zMu5T0nHdmPe1MiELTnGLivCqRBy5Av8/Q 4R90+Add2r/t7W4t0c26dVuar/7mBbbcI964Vsfa543iw/2ran/rgMM/6Ni/lwTpLmuM91m+fF8fkJik BXwBb/vXc/+i2l48A34f/7q2/eva36/n+sirisha+Tj1b7b0uKfa/8qxf+RVx8DlB1bnV+X/2qy5aF6nc16f iM0M7YsmkarQ+uz9Sc/z7bPa3/f4/4a4rkUReZa351 oBT1fGWGNHbLjYoFg0E7ZVo13/2ECXLKnsDBL6Ry0lIAA5L9IJ0T/sNe/fvXA/w33Yasqd/+j47xKcUy 8a8DtmTi70agIl9qiojt9QW/IHk8mwI+0xxMRtkL83Z1/AN/GFGxKNr5p64aAmTSmtO2aXnha1B7eEW+ AYLGEu2Zv5sixZn8X3nsR8iqy4s+9Rw4F7eqZRsWCm wW/+5K9DRzYTdMAR4x1IG5h9cHI42n467b524h360o819l/3id8Bs35+5e7NR2dFv/ae+MLe46/be/x1 [file] NSAwIFIKCj4+ZxA0HCB6dDIiYuk2FWUtPkklDGYYJi== ID Date Data Source [id number] 03/30/2020 06:19:56 AM EST [facility] Name Value Range Interpretation Code Description Data Kevin rce(s) Supporting Document(s) MUSE EKG PDF encoded [facility] spital VQRJMs5xVqKMVwWaj7AaLaPdUZAxRC0kksq5K3G5wJNoA0TluOQko3qnH8FmW7FdGNFzDBFMFS5ObZZs jb2 [file] DN383qDTm8TORp2s3/pr132141/5Hgb+MILLED RICE BROKER+8Br45Ii5HLzpe98SKv63nx276873rS936MmI2830OcbU epQ1tQjh+FU82hrTg4e8ihyg9UT6fa79nRO74oGcl9A3Kn1SiDmvciuWBzoEko47jQF8umS5vi+AZjcj 0jxn5ssr9tpf3z4l4sphYATLkRE+pgyqYtygUrn05Y CNtF81nfn9xs1tWiuq+S33f/NNrMfT/Hf5X6/hw/5d+X0DcxvbzdG8s7/Caleb/rJcu3C9ttf8grzsNkPr /+B9tg0ve6ig/5bnOT+139F0/X6m4y7pt8/Kd9+hJPDv49+R5/zU/AUFrx1HcypU91q3YQAj70x1ueJ/ 5VPl3/rO/ctz/wwIyob/9tbnCUsmb7ph64/4Jm0Axi 9sRmq9Gz3LrW1q35jbRU/fm7P8249ga+rxyb868/zX4L/13fnPxH/ru33q+Fuue/4+6s+phw7k40B4rB iimBG4fFpcdTZ4Q+PaQbsrm4cCmzglLP0u9lwdAU/4eD0X71X3l73eqt+j/US01u5YwPdYP72fY8MxgF +Fj4Orm2flC23Lqlc1rXkMP0X8eQtIu/gahY1Q571m 8nn6kK9DGtpNkE+UT5R/e/bnDaULfAeyjyGyLxogR+R/dnPB4nyWJ3CFIxr9OX5evJbo0xGVM+Rfl7rL Efk/D9PKCvtzxuvr4SVseIdKQ/SoP17tnCqr+pv1z3hn6oOdWDZOy3R2EE7N4FM1XUyYJgSQBmRFHynq NkjkA/5y98qvwoIXxLRQZ5u/Yo3yKXOb29ByflodP7 zGOUaujZOEmR4sbX7iaI115mVF0P+54i3Z5bXaEwLZVXQTK0BD6q9+eu8QQnslsJVcJIocTFdA4m0GPV 1tdKodqCnPePrNVL//pndjE9C1/WD+EtXvMWauZxyd+xlf5+l1Zbwkc38kFK9ICz0vP8vc/PR7/Vvz6/ K5jtPZ2/crRV2jSpq0tCkNC+ZY6fjggiIC+1f5a106 30/0Vk557vzN14368tkhcrCF89bKP/WVb/epb2RS+jPeb3/G+59gmoyUH2Ah+i1N2rN7PqhM2r2gayR7 y4zK0gk9KfQeCcGY0prciTOXfU47lh+z0Sr5/JiJziXtV54ihG7kvz/j59rWRL6H+p7M8/ThSTxPP5+8 8/T/STt/jn/A5DUyL6uiF5AxwfkwlbRH9oRN7g4/H7 +1j2WDI64Kt+dZN/2N+3McKD/7ibz6O7/8WQBW3PvbF+fZz/rGRsqzv2aMbadrBP2t8bbhVX8rWclJiV qwX00fw0JDL6Ex+z5CVS9wX35y4y5ux7rf5P7ExqTcTX2Z6mSnEb7BHkT+KY0nb7DjaeAj4fD27w3N5e OqxTN9439tH/B8B+orjSa/NjCtcVA41uzjdPby97Ae MYpA3ko7TrkN9quwEMg5YZomQLERLLE/zP3LEM8ea9tPbuHeeLuB1Elxfcl77zDXVPW8/Z0YpqOfv/UN V+44s86nxjGUfLGmp4+GTTRdrDRpA9A7Z4JWmOl9YnQAT76d0VcJseojFBvdGgGzc665it+vJPtUXef8 8ei1CV6F96XCXFespeYC7p9/9R2ZCP+d05pyWrskZt uO/S2UWho7226cQExdmkDVNm35mG+Yjk/zpUxjKQBZM23V0U/dqYhtS7LePM3+8JD6dgFH77//9exCMW Mmi3i7tUO+zyVOTOm/BPCMNU/+d8aaJ/07Y82T/b2X/ZK/E564lg526KeWm8qYNRHwRSNf0NzcoAY5kQ xs0gKhm/Luz2/HdcepJ+d7L/0D8l+02boW34eK2cD9 FSsEgMdCv2Th587snivx/0dr/Y6fv1/8qIsckgd3jwteaJ/+OVrrPud4/OD35w657tqmLy14wniAvt3z lE+YY8YzyI+Td9Dp97lnkaS2Sloe0G4fNQ77C88EsoQ4jak+tFb+y+FnvFK/ycdSY9v0Vm/RkxP63gHO 65149x0zUY69eutC4Py/4/BR4T6AUX7/xfBge8q8Qm qnkD3X9wtwezH2uYfaKW1r5vrO78umZ3065iEAki0dggu+vaQim6ce7ar6jigwQ02gD2+qpwa59oOIqp tZ3uR87bXrsyiNxwv41TdPgd/9JDWZdHO3A5YNasiVWzoOvdNL+do/q7cxd7NCbGT/Eboev931ktAfBZ Ucrxs4eNQzIxhim3dbi+KY2B06MnjOw7Z7T/L4pzO7 zJeuQJrufT5oemMA9pMdbgz7A0+X5tB3EWnUgcn6jAzY1keCQsj/37/+4jI96pXzl+pCPcqdamnPK7w7 iyeUZ86bFlwxnzShVJ8mA9XGjX+FV1XngF82c6S5fqjyCyJuE/r1QL+W7nr+/fHfcX/6+6cfxC2ssYAo 3aX+Ls0hyfRDofy12ZL/HujXA/16PHOBJ+/6d7xR/s rZdqEv2sdcpgZPlCN1F1a/xpOju+7jgb9/2l8ThaQu41A74mbGl6Wc/JkTOGnWt//86aEhgfp4JoyLCG 9e3NtDyg5Efj1uKasshpigkpjsb5jq8wq67mBVF3k/56oXo9678tqp/h3H7/14cqp/x+e9nL+dOP/C+Z c/97BxP/ufJ3ssz0lbW7cbmRW5sQg4g2E/IwIetc95 j5caTRG/rhFjkqENkhzZR2357ekSHM+B16p9OzCRmEGgYfmn8yjctLF6yyfF7+qY4+qY4+qY4+rLcR6M vatg37W3sUDqJbkUTqwY7eJl2twxb2z9r8XufWUziyOGqmbIcvL91mw7HreuouZwu+qem39Qi01bxtPu 2PH36L/6cEZ3ePjXj72x/X540TsV/ooneAh4PLeCbf PWOBnRGZuchOiMZU4+5F3SHfOLD1MCp4LNYcY2yIQEgihkLug+W0hVfQ47VgD/cZnO+iBTYy95C3yGIo 5i84dZ0hHjZg/9PvW8YmURc84V3SebDen3351V0uCp23pwvtbrlI2czSB7enBybZvQ3oIwpbJaBzLx3o 4NM722it6Vi888162g/DB9n1s8t5lBV9+k50+8lsff [file] 1ph+VMTcM9J8a0oWA0rDjHouBeArh5gFC/+8+hicy7/Kalina+bX7u+Rzo5wpsRWI6guVjwXHWmx+4marue md0gmnyVzx6rsgc6lCxB22yze/gvIj6HmihiBuvTU2 5skp7yT0XNt262QsvOfErb7P2e4r631du4c1W+i87haz8+901kD9uqYbwSJo968r7m0u9SH64fTqSrce nBlDxyx6Z7g+W5gwneE3bZNSV04z8nbsh7+0B1X7gsuQi0c5o1/e6fnoO3Lu207skVt+8QGxb/SfnH+c o6Fwk7th11lWk7bdMutT4DabReq5RA/MQTnYOWgSb4 6hkgrMnZUqxVzj3qhhTipL6PSxGWfBTSXTCVlR1zW2NJvrJOanIxaL7TXk3f6P5sodk7B5moKuLZYCi2 5CozhvY5FOUFZhpTpmMCFB5szhmUYuCBa0Y6/m/POt6QdcOjasaPd4TACLLXcxmnXtiNtnLtpPMntm7a yKHxGWcTz3raiqjFp5t8xctz9ZGv3JTlbGW8FzVElO 1cvsm1TVONI6fJ+KMmad7zaM1w4dbcPGBb8Zi3A0qBlAb67tJ5oJpjpqyvmowGWfgkr475OZ0Qk5q077 +++7v6tZZ/y2Z/8gy4BPl3kXjHqdFsn++c8yWD+WB+w5YB3G2PD6FXjyhtW697pKNjNadacQfrFHL8/c NTjd+RChgU1h+T01ylOPJPtnZwgNS7yvIPHwwL5sQ1 nIX4KA9MQ1F/FLlF/rmdLvqZjvdhTTXYrjFwfTA5tukaOOHcVOEWtMmU5lG2k6CeEoGV2Z4Riezxha2A SVJe9Hfpgc/QK7WzaVd3Zoj+Griffin+PD6B110Ks2mV9pqTXArivwogp0rxdikHqlG2q5STxkPsvxbJs087 DeTR6djthAHatMOyMsbURV4kvV87Kou8IdPRDT91jm /tbDflnPIJ+tZ5A/11N+Maximilian+vp publisher development/fezGW5k/SKI9oKQ/Tc1+OPWNT/9oJuEP0nc5jJzzZTdhYlxfZnL+ww [file] 9Im2Pa0yQ5n2i9F2t8KPfrSevHrXS5iAwkpIajO5TBx6/E1mt0zMJnXpdCDqheQHwwCrwuPsnJ/k+spinner frame [file] MDAwMDAyOTggMDAwMDAgbiAKMDAwMDAwMDQwOSAwMD KoEBOaSJywKRGnJPIeJZKdESSbUQWiXD1mYqGiVZIeFZB9RBZzSIJwNBXdvcRDJYCxQSLiJAv2HXBqMH VnZCTaSLolOJIaJSCcCUH1NPYbMMUpOQ6oVeLeNDGmWEI2QxSlECBmJDOfgpLCVPMrCEAmTHK5LcPyXC GkDPOyHCrsNQOoBBCaWIzgNKXbTNCnPP4tTlRmZAUk COGoSTnfDKVqQEDujcMQHPGaVNBwMEPtNwRuNMClVPQeKEfzAJSwCOd3DyDdKBBwWOJsFT3tGyIkKABe OLN2IEqxROLdVMWkrtUVRWYeNYMtJFsjIXGbGNIyHUIoHWsdLORhJEBiANI3ZBJkBDMfOC6sYcBpOAWm BURrAZBcRcS0OwNuJiMZrGGwtHnnedf3OImvE3v8BG XwRBioZT9pquHhMKJdDsuzPr9aySW9QPZdVsmOIl9Vd4BjsuT4tzHyYwx3XzOhBtCnUF8R ID Date Data Source [id number] 03/29/2020 10:31:00 PM EST [facility] Name Value Range Interpretation Code Description Data Kevin rce(s) Supporting Document(s) COVID-19 [facility] This lab was ordered by [facility] and reported by [facility]. ID Date Data Source [id number] 03/29/2020 10:31:00 PM EST [facility] Name Value Range Interpretation Code Description Data Kevin rce(s) Supporting Document(s) COVID-19 [facility] This lab was ordered by [facility] and reported by [facility]. ID Date Data Source [id number] 03/29/2020 11:07:00 PM EST [facility] Name Value Range Interpretation Code Description Data Kevin rce(s) Supporting Document(s) COVID-19 NOT DETECTED [facility] COVID-19 [facility] NOT DETECTED [facility] { PROCEDURAL CONTROL VALID KIT LOT # _[id number] 03/29/20.2307.DW . KIT EXP DATE _[id number] 03/29/20.2307.DW . NORMAL RANGE IS NOT DETECTEDNEGATIVE RESULTS SHOULD BE TREATED PREUMPTIVE AND, IF INCONSISTENT WITHCLINICAL SIGNS AND SYMPTOMS OR NECESSARY FOR PATIENT MANAGEMENT, SHOULD BETESTED WITH DIFFERENT AUTHORIZED OR CLEARED MOLECULAR TESTS. NEGATIVE RESULTSDO NOT PRECLUDE SARS-CoV-2 INFECTION AND SHOULD NOT BE USED THE SOLE BASISFOR PATIENT MANAGEMENT DECISIONS. ID Date Data Source [id number] 03/29/2020 10:08:00 PM [facility] [address] [place] [address] ---------NAME--------- NUMBER SEX AGE ADMIT DISC. XRAY# F/C TYPE ABIMAEL Fair [id number] M 79 03/29/20 [id number] MB4 E/R DATE OF : 1940 M/R# [id number] #: [id number] TR-05 LOCATION: EMERGENCY DEPT TRANSCRIBED: 03/29/20 22:08 IF CHEST PORTABLE [id number] COMPLETED:03/29/20 22:09 eli 947 Reason(s): Congestion Shortness of Breath PHYSICIAN: SABINA DOMINIQUE ==== R A D I O L O G Y R E P O R T PATIENT HISTORY:CONGESTION. Patient male. Patient shielded. Verification of 2 patientidentifiers performed. BEMCR - Chest X-ray (CXR)History:possible pneumothorax (Hx)Technique:XR CHEST 1 VIEWComparison:No comparison study available.Findings:MEDIASTINUM:Minimal cardiomegaly is noted.Aortic silhouette is not enlarged.Trachea is within midline.Prominent right hilum likely due to enlarged pulmonary vessels and less likelydue to adenopathy. Consider follow-up exam for resolution of this finding.LUNGS:Small bowel pleural effusions. Prominent pulmonary vessels centrally.OTHER:Osseous structures are within normal limits for age and body habitus.IMPRESSIONS:Congestive heart failure.Prominent right hilum likely due to enlarged pulmonary vessels and less likelydue to adenopathy. Consider follow- up exam for resolution of this finding.Electronically Signed By:Bonifacio Zavala M.D. , RadiologistDate/Time: 03/29/20 22:08 Name Value Range Interpretation Code Description Data [facility] rce(s) Supporting Document(s) ID Date Data Source [id number] 03/29/2020 09:54:00 PM [facility] Name Value Range Interpretation Code Description Data Kevin rce(s) Supporting Document(s) BNP >27220 PG/ML 0 - 450 H [facility] ID Date Data Source [id number] 03/29/2020 09:43:00 PM [facility] Name Value Range Interpretation Code Description Data [facility] rce(s) Supporting Document(s) COMPREHENSIVE METABOLIC PANEL [facility] COMPREHENSIVE METABOLIC PANEL Sodium [Moles/volume] in Serum or Plasma 137 mEq/L 134 - 153 [facility] Potassium [Moles/volume] in Serum or Plasma 5.5 mEq/L 3.6 - 5.0 H [facility] Chloride [Moles/volume] in Serum or Plasma 96 mEq/L 98 - 107 L [facility] Carbon dioxide, total [Moles/volume] in Serum or Plasma 25 MEQ/L 22 - 30 [facility] Glucose [Mass/volume] in Serum or Plasma 87 MG/DL 65 - 110 [facility] BUN 47 MG/DL 7 - [facility] Creat[facility] [Mass/volume] in Serum or Plasma 10.6 MG/DL 0.7 - 1.5 HH [facility] CALL/ READ BACK TAHIRA IN [facility] BY: TALITA [facility] al DATE/TIME 386227/2145 [facility] BUN/CREAT 4 8 - [address] [facility] Protein [Mass/volume] in Serum or Plasma 5.3 G/DL 6.3 - 8.2 L [facility] Albumin [Mass/volume] in Serum or Plasma 3.3 G/DL 3.9 - 5.0 L [facility] Globulin [Mass/volume] in Serum by calculation 2.0 GM/DL 2.4 - 3.2 L [facility] A/G RATIO 1.7 0.8 - 2.0 [facility] Calcium [Mass/volume] in Serum or Plasma 9.2 MG/DL 8.4 - 10.2 [facility] Bilirubin.total [Mass/volume] in Serum or Plasma <0.7 MG/DL 0.2 - 1.3 [facility] Alkaline phosphatase [Enzymatic activity/volume] in Serum or Plasma 67 U/L 38 - 126 [facility] Aspartate aminotransferase [Enzymatic activity/volume] in Serum or Plasma 15 U/L 5 - 40 [facility] Alanine aminotransferase [Enzymatic activity/volume] in Seru m or Plasma 21 U/L 7 - 56 [facility] Anion gap 3 in Serum or Plasma 16.0 mmol/L 8.0 - 16.0 [facility] AGE [address] [facility] al NON-AA [facility] AMER GFR 6 mL/min [facility] Male GFR In terprentation 20-49 yrs >60 mL/min Normal 50-59 yrs >56 mL/min Normal 60-69 yrs >49 mL/min Normal 70-79yrs >42 mL/min Normal 80 and above >35 mL/min Normal Female GFR Interpretation 20-39 yrs >60 mL/min Normal 40-49 yrs >58 mL/min Normal 50-59 yrs >51 mL/min Normal 60-69 yrs >45 mL/min Normal 70-79 yrs >39 mL/min Normal 80 and above >32 mL/min Normal ID Date Data Source [id number] 03/29/2020 09:34:00 PM EST [facility] Name Value Range Interpretation Code Description Data Kevin rce(s) Supporting Document(s) TROPONIN T 0.23 NG/ML 0.00 - 0.10 [facility] Ho spital CALL/ READ BACK JAYDON IN ED [facility] BY: TALITA [facility] al DATE/TIME [facility] ital TROPONIN T0.1 ng/ml Recommended as the c linical threshold value forTroponin T. ID Date Data Source [id number] 03/29/2020 09:09:00 PM [facility] Name Value Range Interpretation Code Description [facility](s) Prothrombin time (PT) 13.8 SECONDS 11.0 - 15.5 [facility] INR in Platelet poor plasma by Coagulation assay 1.01 0.93 - 1. 23 [facility] \\BLDo\\INR INTERPRETATION\\BLDx\\ Therapeutic range for Coumadin and related oral anticoagulants. - International Normalized Ratio (INR): 2.0 - 3.0 for Venous Thrombosis, Pulmonary Embolus, Tissue heart valves, Acute [place], Atrial Fibrillation, Valvular heart disease and recurrent Systemic Embolism. -International Normalized Ratio (INR): 2.5 - 3.5 for Mechanical Prosthetic valve. ID Date Data Source [id number] 03/29/2020 09:04:00 PM [facility] Name Value Range Interpretation Code Description Data [facility](s) Supporting Document(s) CBC W/AUTOMATED DIFF [facility] COMPLETE BLOOD COUNT Leukocytes [#/volume] in Blood by Automated count 6.2 10^3/uL 4.2 - 1 1.0 [facility] Erythrocytes [#/volume] in Blood by Automated count 2.61 10^6/uL 4. 50 - 6.30 L [facility] Hemoglobin [Mass/volume] in Blood 8.0 g/dL 14.0 - 16.0 L [facility] Hematocrit [Volume Fraction] of Blood by Automated count 25.2 % 4 1.0 - 51.0 L [facility] Erythrocyte mean corpuscular volume [Entitic volume] by Auto mated count 96.6 fL 80.0 - 94.0 H [facility] Erythrocyte mean corpuscular hemoglobin [Entitic mass] by Automated count 30.7 pg 27.0 - 34.0 [facility] Erythrocyte mean corpuscular hemoglobin concentration [Mass/volume] by Automated count 31.7 g/dL 31.0 - 36.0 [facility] Erythrocyte distribution width [Ratio] by Automated count 15.6 % 11.5 - 14.8 H [facility] Platelets [#/volume] in Blood by Automated count 241 10^3/uL 150 - 45 0 [facility] Platelet mean volume [Entitic volume] in Blood by Automated count 10.5 fL 7.4 - 10.4 H [facility] Neutrophils/100 leukocytes in Blood by Automated count 53.4 % 37. 0 - 80.0 [facility] Lymphocytes/100 leukocytes in Blood by Manual count 31.5 % 25.0 - 40.0 [facility] Monocytes/100 leukocytes in Blood by Automated count 8.5 % 3.0 - 8.0 H [facility] Eosinophils/100 leukocytes in Blood by Automated count 5.7 % 0.0 - 7.0 [facility] Basophils/100 leukocytes in Blood by Automated count 0.7 % 0.0 - 2.0 [facility] %IG 0.2 % 0.0 - 0.0 H [facility] al %NRBC 0.0 % 0.0 - 0.0 [facility] al Neutrophils [#/volume] in Blood by Automated count 3.29 10^3/uL 2.00 - 6.90 [facility] Lymphocytes [#/volume] in Blood by Automated count 1.94 10^3/uL 0.60 - 3.40 [facility] Monocytes [#/volume] in Blood by Automated count 0.52 10^3/uL 0.00 - 0.90 [facility] Eosinophils [#/volume] in Blood by Automated count 0.35 10^3/uL 0.00 - 0.70 [facility] Basophils [#/volume] in Blood by Automated count 0.04 10^3/uL 0.00 - 0.20 [facility] #IG 0.01 10^3/uL 0.00 - 0.10 [facility] #NRBC 0.00 10^3/uL 0.00 - 0.00 [facility] MANUAL DIFF NOT INDICATED [facility] RBC MORPH NOT INDICATED [facility] ID Date Data Source [id number] 02/12/2020 11:36:32 AM EST [facility] Name Value Range Interpretation Code Description Data Kevin rce(s) Supporting Document(s) SODIUM 139 mmol/L (136-145) [facility] POTASSIUM 3.9 mmol/L (3.6-5.2) [facility] CHLORIDE 99 mmol/L (100-108) L [facility] CO2 33 mmol/L (22-31) H [facility] ANION GAP 7 mmol/L (7-16) [facility] UREA NITROGEN 37 mg/dL (7-24) H [facility] CREATININE 10.10 mg/dL (0.80-1.30) HH [facility] CONSISTENT WITH PREVIOUS RESULTS BUN/CREAT RATIO 3.7 RATIO (10.0-20.0) L [facility] GLUCOSE 113 mg/dL (70-99) [facility] CALCIUM 9.2 mg/dL (8.4-10.2) [facility] GFR 5 ml/min/1.73m2 (>59) L [facility] GFR ( AMER) 6 ml/min/1.73m2 (>59) L [facility] GFR INTERPRETATION [facility] [place] --NORMAL KIDNEY FUNCTION OR MILD DISEASE - GFR >OR= 60CHRONIC KIDNEY DISEASE - GFR 15 - 59RENAL FAILURE - GFR <15 Est. GFR calculation based on the MDRDstudy equation, which assumes a steadystate for creatinine. Est. GFR should notbe used for medication dosing. ID Date Data Source [id number] 02/12/2020 11:15:16 AM EST [facility] Name Value Range Interpretation Code Description Data Kevin rce(s) Supporting Document(s) WBC 5.7 10*3/uL (4.1-11.0) [facility] [place] RBC 3.23 10*6/uL (4.60-6.10) L [facility] HGB 9.8 g/dL (13.5-18.0) L [facility] HCT 30.6 % (41.0-53.0) L [facility] MCV 94.7 fL (80.0-95.0) [facility] MCH 30.4 pg (27.0-32.0) [facility] MCHC 32.1 g/dL (32.0-36.0) [facility] RDW 17.9 % (10.5-14.5) H [facility] PLT 317 10*3/uL (150-450) [facility] MPV 8.1 fL (7.1-10.7) [facility] ID Date Data Source [id number] 02/12/2020 08:17:00 AM EST [facility] al DATE OF EXAM: 02/11/2020MRI RIGHT FOOT W ITHOUT CONTRAST INDICATION: Right great toe infection, rule out osteomyelitis, diabetic TECHNIQUE: Multiplanar multisequence MRI without contrast.MAGNET: 1[facility]5 [facility] COMPARISON/CORRELATION: No existing prior relevant imaging studies are available. FINDINGS: Soft tissue swelling and edema is noted in the first toe, associated with hyperintense signal on fluid sensitive sequences, and hypointense signal on T1 sequence, in the distal phalanx bone marrow, findings consistent with cellulitis and osteomyelitis, respectively. Soft tissue edema extends proximally along the dorsal subcutaneous tissues of the foot. There is increased fluid in the flexor hallucis longus tendon sheath suggesting tenosynovitis. Flexor and extensor tendons are otherwise intact. There is edema throughout the intrinsic muscles of the foot which could be related to infection, vascularity, or neuropathy. Mild hallux valgus deformity of the first toe noted, with osteoarthritis and first and second metatarsophalangeal joints. There are foci of susceptibility artifact at the base of third metatarsal probably related to the presence of foreign bodies. IMPRESSION: Cellulitis and osteomyelitis in the first toe. 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 Flexor hallucis longus tenosynovitis. J5End of diagnostic report for accession: [id number] Interpreted: Jose A Redmond MDTranscribed: 02/12/2020 08:06 AMSigned: 02/12/2020 08:17 AM Jose A Redmond MD --------- [facility] # [id number] BILL # [id number] Name Value Range Interpretation Code Description Data Kevin rce(s) Supporting Document(s) ID Date Data Source [id number] 02/11/2020 09:41:00 [place] [address] RESPIRATORY CARE REPORT ==== ---------NAME------- NUMBER SEX AGE ADMIT DISC. XRAY# F/C TYPEGROCLayla CASSIDY Fair [id number] M 79 02/09/20 02/09/20 [id number] E/R DATE OF : 1940 M/R# [id number] #: [id number] TR-02 LOCATION: EMERGENCY DEPT EKG [id number] COMP LETE:02/09/20 08:58 M [id number] PHYSICIAN: ELIDA DE OLIVEIRA Name Value Range Interpretation Code Description Data Kevin rce(s) Supporting Document(s) ID Date Data Source [id number] 02/11/2020 09:13:00 [place] [address] PHONE: [phone] FAX: [phone] Name .................. : ABIMAEL Fair Acct Number.................. : [id number] ROOM. ................. : - Number ................... : [id number] Stay type ............. : E/R Discharge Date......... ... : 02/09/20 Admit Date ......... : 02/09/20 Admit Phys .................... : ELIDA DE OLIVEIRA Date of ....... : 1940 Family Phys ................... : UNKNOWN Phone . ................. : [phone] Age ................................ : 79 Film# .................. .:[id number] Sex ................................. : M Unsigned transcriptions are preliminary reports and do not represent a medical or legal document CHEST PORTABLE [id number] COMPLETE:02/09/20 05:30 RLB 14016 Reason(s): Shortness of Breath AP PORTABLE CHEST X-RAY: FINDINGS: The lung laurent are clear. The heart and mediastinum are within normal limits. Atherosclerotic changes in the aorta with no signs of any acute disease and no change from 02/03/20. IMPRESSION: No acute disease with no significant changes. Electronically Reviewed and Signed By TEE CALDERON MD , 02/11/20 09:13, [facility] Transcribe Initials: DZ , Transcribe Date: 02/09/20 08:51, Dictation Date: Copy for: EMERGENCY DEPT via modem Copy for: 710 MED REC DISCHARGED Page 1 of 1 Name Value Range Interpretation Code Description Data Kevin rce(s) Supporting Document(s) ID Date Data Source [id number] 02/09/2020 04:08:00 AM EST [facility] 1 OrderSheet [facility] Emergency Department [address] [place] [address] Phone #: ext- [phone] 02/09/2020 04:07 Patient: CASSIDY VARGHESE Sex: M : 1940 Age: 79yWEIGHT:75.1 kg (M) HEIGHT:70 inches (E) BMI:23.8ALLERGIES: Amlodipine, Hydralazine, Indocin, Minoxidil, Mircera, NorvascCHIEF COMPLAINT: COPD, dyspnea, wheezingDIAGNOSIS: Chronic obstructive lung disease, Renal failure syndromeLAB ORDERSOrder Description Priority Entered Acknowledged InitialedUrinalysis (Clean STAT 04:18 02/09/2020 Ack'd: 04:23 04:27 Serena Kenny) Ghassan Lee R.N. Physician; R.N.Troponin-T STAT 04:18 02/09/2020 Ack'd: 04:23 05:05 Merritt Kenny Laura Laura R.N. Physician; R.N.CBC w Diff STAT 04:18 02/09/2020 Ack'd: 04:23 05:05 Merritt Kenny Laura Laura R.N. Physician; R.N.CMP STAT 04:18 02/09/2020 Ack'd: 04:23 05:05 Merritt Kenny Laura Laura R.N. Physician; R.N.D- Dimer STAT 04:18 02/09/2020 Ack'd: 04:23 05:05 Merritt Kenny Laura Laura R.N. Physician; R.N.DIAGNOSTIC STUDY ORDERSOrder Description Priority Entered Acknowledged InitialedChest Portable 1 STAT 04:18 02/09/2020 Ack'd: 04:23 04:41 Kyung Kenny (Oxygen? Ghassan Lee R.N.(Yes)) Physician; R.N. Reason for Study: Shortness of BreathMEDICATION/IV/DRIP/FLUID ORDERSOrder Description Priority Entered Acknowledged Initialed 2 OrderSheet [facility] Emergency Department [address] [place] [address] Phone #: ext- [phone] 02/09/2020 04:07 Patient: CASSIDY VARGHESE Sex: M : 1940 Age: 79yDuoNeb 3 mL X2 04:19 02/09/2020 04:43 Brush,Doses: 6 mL (3 mL Merritt Elida VirginiaX2 Doses) Physician;SOLU-Medrol 125 04:19 02/09/2020 04:41 Melaragno,mg IV X1 Dose: 125 Merritt Morton R.N.mg (X1) Phy sician;DuoNeb Neb Tx 3 05:23 02/09/2020 05:29 KathymL (NOW) Merritt Newell RN Physician;Rocephin 05:23 02/09/2020 Cancelled: Physician Order 06:05 Merritt(1gm/50mL) IVPB Merritt Marrero [id number] mg with Physician;Dextrose 50 mlspike bag (D5W)Rocephin IM 1000 06:05 02/09/2020 06:14 Kathymg (NOW) Merritt Newell RN Physician;GENERAL ORDERSOrder Description Priority Entered Acknowledged InitialedCardiac Monitor 04:18 02/09/2020 04:23 Zoya,(continuous) Merritt Morton R.N. Physician;EKG 04:18 02/09/2020 04:23 Merritt Kenny R.N. Physician;Pulse oximeter 04:18 02/09/2020 04:23 Zoya,(Continuous) Merritt Morton R.N. Physician;Saline Lock 04:18 02/09/2020 Ack'd: 04:23 04 :41 Zoya, Merritt Kenny, Ghassan Morton R.N. Physician; R.N.Oxygen titrate to 04:18 02/09/2020 04:23 Zoya,92% Merritt Morton R.N. Physician;EKG 05:52 02/09/2020 06:51 Merritt Kenny R.N. Physician;[Electronically signed by Angie Hardin RN (07:44 02/09/2020)][Electronically signed by Merritt Marrero (07:17 02/10/2020)][Electronically locked by Angie Hardin RN (07:44 02/09/2020)] Name Value Range Interpretation Code Description Data Kevin rce(s) Supporting Document(s) ID Date Data Source [id number] 02/09/2020 04:08:00 AM EST [facility] 1 Medication Reconciliation Report [facility] Emergency Department [address] [place] [address] Phone #: ext- [phone] 02/09/2020 04:07 Patient: CASSIDY VARGHESE Sex: M : 1940 Age: 79yWeight: 75.1 kgHeight/Length: 70 in.BMI: 23.8ALLERGIES: Amlodipine, Hydralazine, Indocin, Minoxidil, Mircera, NorvascThe patient's Home Medications are listed below:THE FOLLOWING MEDICATIONS NEED TO BE RECONCILED: Albuterol Sulfate Inhalation Allopurinol Oral (100 mg) 1 tablet, daily, prn Aspir-81 Oral, daily Calcium Acetate Oral 667 mg, 3x a day Epogen Injection (40389 unit/mL), once a week Heparin Sodium (Porcine) Injection (1000 unit/mL), once a week Isosorbide Mononitrate ER Oral (60 mg) 1 tablet, daily Metoprolol Succinate ER Oral (100 mg) 1 tablet, daily Mupirocin External Nortriptyline HCl Oral (25 mg) 1 capsule, daily, at bedtime Omeprazole Oral 20 mg, daily Paricalcitol Oral (1 mcg) 3 caps, monthly Percocet Oral (5-325 mg) 1 tablet, 3x a day, prn Potassium Chloride ER Oral (20 meq), daily Renvela Oral (800 mg) 1 tablet, 3x a day 2 Medication Reconciliation Report [facility] Emergency Department [address] [place] [address] Phone #: ext- [phone] 02/09/2020 04:07 Patient: CASSIDY VARGHESE Sex: M : 1940 Age: 79y Sensipar Oral (60 mg), daily Spiriva Respimat Inhalation, daily Uloric Oral 40 mg, dailyThe source(s) of the original Home Medication information:Not obtained.The following Medications were given to the patient in the Emergency Department:Solu-Medrol [IVP] IVP 125 mg, administered: 02/09/2020 4:41:00 AMDuoneb [Neb Tx] Neb TX 2 unit dose, administered: 02/09/2020 4:33:00 AMDuoneb [Neb Tx] Neb TX 1 unit dose, administered: 02/09/2020 5:29:00 AMRocephin [IM] IM 1 gm, administered: 02/09/2020 6:14:00 AMThe following Medicat ions were prescribed to the patient:None. Name Value Range Interpretation Code Description Data Kevin rce(s) Supporting Document(s) ID Date Data Source [id number] 02/09/2020 04:08:00 [facility] 1 Medication Administration Record [facility] Emergency Department [address] [place] [address] Phone #: ext- [phone] 02/09/2020 04:07 Patient: CASSIDY VARGHESE Sex: M : 1940 Age: 79yWeight: 75.1 kgHeight/Length: 70 inBMI: 23.8ALLERGIES: Amlodipine, Hydralazine, Indocin, Minoxidil, Mircera, Norvasc Date/Time Medication Administered Medication OrderedGiven DUONEB [NEB TX] DuoNeb 3 mL X2 Doses: 6 mL (304:33 02/09/2020 Dose: 2 unit dose Nebulizer Neb TX mL X2 Doses)Ingrid Brush,Given SOLU-MEDROL [IVP] SOLU-Medrol 125 mg IV X1 Dose:04:41 02/09/2020 (METHYLPREDNISOLONE SODIUM 125 mg (X1)Ghassan Kenny, R.N. SUCC) Dose: 125 mg IVP Site: #1 right wristGiven DUONEB [NEB TX] DuoNeb Neb Tx 3 mL (NOW)05:29 02/09/2020 Dose: 1 unit dose Nebulizer Neb TXCarmella Newell RNGiven ROCEPHIN [IM] (CEFTRIAXONE Rocephin IM 1000 mg (NOW)06:14 02/09/2020 SODIUM)Carmella Newell RN Dose: 1 gm IM Name Value Range Interpretation Code Description Data Kevin rce(s) Supporting Document(s) ID Date Data Source [id number] 02/09/2020 04:08:00 AM [facility] 1 General Instructions [facility] Emergency Department [address] [place] [address] Phone #: ext- [phone] 02/09/2020 04:07 Patient: CASSIDY VARGHESE Sex: M : 1940 Age: 79yAcute exacerbation of COPD (asthmatic, chronic bronchitis).Severe chronic renal failure- end stage disease (Bilateral nephrectomies - Dialysis- dependent).(Electronically signed by Merritt Marrero, Physician 02/10/2020 07:17) Name Value Range Interpretation Code Description Data Kevin rce(s) Supporting Document(s) ID Date Data Source [id number] 02/09/2020 04:08:00 AM EST [facility] 1 Clinical Report - Nurses [facility] Emergency Department [address] [place] [address] Phone #: ext- [phone] 02/09/2020 04:07 Patient: CASSIDY VARGHESE Sex: M : 1940 Age: 79yTRIAGE Arrived by EMS. Historian: patient. Acuity: LEVEL 2. Chief Complaint: SHORTNESS OF BREATH and WHEEZING. Alert. No acute distress. This started today. ( Patient arrives via ems from home c/o sob. Pt states he woke up this morning and was having difficulty breathing and unable to speak in full sentences. Pt states he was seen last week for same complaint. Pt states it has been getting progressively worse since. Pt arrives wheezy, difficulty breathing noted, pt unable to speak in full sentences. Pt denies hx of asthma or copd. Pt was given 2 tx of duo neb by ems, O2 sating from 90% to 100% after 2 txs. Pt reporting black mold is in his house. Pt denies cp or any other complaints.). He has had a cough and wheezing. --04:20 02/09/20 Ghassan Kenny R.N. 04:09 02/09/20. HR: 112. RR: 25. O2 saturation: 96%. Temp: 98.1 F. Pain level now: 0/10. Additional comments: nicoljustice victorino tx. --04:20 02/09/20 Ghassan Kenny R.N. 04:22 02/09/20. BP: 160/90. MAP: 113. --04:02/09/20 Ghassan Kenny R.N. Weight: 75.1 kg measured. Height/Length: 70 inches Estimated. BMI: 23.8. --04:18 02/09/20 Ghassan Kenny R.N. Medications Albuterol Sulfate Inhalation. Allopurinol Oral (Tablet 100 mg) 1 tablet, daily as needed. Aspir- 81 Oral, daily. Calcium Acetate Oral 667 mg, 3x a day. Epogen Injection (Solution 26208 unit/mL), once a week. Heparin Sodium (Porcine) Injection (Solution 1000 unit/mL), once a week. Isosorbide Mononitrate ER Oral (Tablet Extended Release 24 Hour 60 mg) 1 tablet, daily. Metoprolol Succinate ER Oral (Tablet Extended Release 24 Hour 100 mg) 1 tablet, daily. Mupirocin External. Nortriptyline HCl Oral (Capsule 25 mg) 1 capsule, daily at bedtime. Omeprazole Oral 20 mg, daily. Paricalcitol Oral (Capsule 1 mcg) 3 caps, monthly. Percocet Oral (Tablet 5-325 mg) 1 tablet, 3x a day as needed. Potassium Chloride ER Oral (Tablet Extended Release 20 meq), daily. Renvela Oral (Tablet 800 mg) 1 tablet, 3x a day. Sensipar Oral (Tablet 60 mg), daily. Spiriva Respimat Inhalation, daily. 2 Clinical Report - Nurses [facility] Emergency Department [address] [place] [address] Phone #: ext- [phone] 02/09/2020 04:07 Patient: CASSIDY VARGHESE Sex: Gopi : 1940 Age: 79yUloric Oral 40 mg, daily. --04:02/09/20 Ghassan Kenny R.N.AllergiesAmlodipine.Hydralazine.Indocin.Minoxidil.Mircera.Norvasc. --04:02/09/20 Ghassan Kenny R.N.PROBLEMS:GI Disease.Diabetes Mellitus.Hypertension.Heart Disease.Cellulitis.Acute Myocardial Infarction.Abnormal Test.Bronchospasm.Asthma.Hypokalemia.Respiratory Failure.Renal Failure.Weakness.Sepsis (disorder).Pulmonary Edema.Nephropathy.Prostate Cancer.Other Disease.Lung Disease. --04:02/09/20 Ghassan Kenny R.N.ADDITIONAL SURGERIES:Bilateral Nephrectomy.Nephrectomy.Prostatectomy.Toe surgery. --04:02/09/20 Ghassan Kenny R.N.HistoryPAST MEDICAL HX: Immunizations: up-to-date.SOCIAL HX: Never smoker. No alcohol use or drug use. He was offered HIV testing but declined.Patient education was provided. He was offered hepatitis C testing but declined. Patient education wasprovided. He has not traveled outside the [place]Infectious disease exposure: No infectious disease exposure. Patient is not a known carrier of tuberculosis,hepatitis, HIV, MRSA or VRE. Patient is not a known carrier of CRE. 3 Clinical Report - Nurses [facility] Emergency Department [address] [place] [address] Phone #: ext- [phone] 02/09/2020 04:07 Patient: CASSIDY VARGHESE Sex: M : 1940 Age: 79y SELF HARM ASSESSMENT: Self harm assessment was performed. The patient answered "no" to the question(s) "Have you recently felt down, depressed, or hopeless?", "Do you have thoughts of harming or killing yourself?", "Do you have a plan for harming or killing yourself?" and "Have you recently had thoughts about harming or killing others?". ABUSE ASSESSMENT: Abuse assessment. The patient had positive responses to the question(s) "Do you feel safe in your home?", "Are you afraid to go home?" and "Has anyone hurt you or threatened to hurt you?". Abuse denied. NUTRITIONAL RISK ASSESSMENT: The nutritional risk assessment revealed no deficiencies. FUNCTIONAL ASSESSMENT: Functional assessment: no impairments noted. LEARNING NEEDS ASSESSMENT: The learning needs assessment revealed no barriers. FALL RISK ASSESSMENT: Fall risk assessment completed. Risk factors identified include patient age greater than 65 years. SKIN INTEGRITY ASSESSMENT: Skin integrity risk assessment completed. No skin integrity risk identified. --04:20 02/09/20 Ghassan Kenny R.N. late entry - 04:20 02/09/20. Infectious disease exposure: The patient was exposed to Hepatitis C. Patient is a known carrier of hepatitis. --05:47 02/09/20 Ghassan Kenny R.N. Interventions Identification band on patient. To treatment room. --04:20 02/09/20 Ghassan Kenny R.N.PHYSICAL ASSESSMENT To room via stretcher. Patient gowned. GENERAL / NEURO / PSYCH: Alert. Oriented X 4. Appears in no acute distress. Appears in distress. HEENT: Mucous membranes are pink. RESPIRATORY: Moderate respiratory distress. The patient can speak a few words at a time. Accessory muscle use. Wheezing present. CVS: Normal sinus rhythm noted. Cardiac rhythm: sinus tachycardia. Capillary refill less than 2 seconds. GI / : Abdomen soft and nontender. Bowel sounds within normal limits. ( urostomy). EXTREMITIES: ( fistula to RUE). SKIN: Skin is warm and dry. Normal skin turgor. --04:22 02/09/20 Ghassan Kenny R.N. GI / : ( peritoneal dialysis). --04:26 02/09/20 Ghassan Kenny R.N. 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 --04:27 02/09/20 Ghassan Kenny R.N. 4 Clinical Report - Nurses [facility] Emergency Department [address] [place] [address] Phone #: ext- [phone] 02/09/2020 04:07 Patient: CASSIDY VARGHESE Sex: M : 1940 Age: 79yNURSING PROGRESS NOTES Cardiac rhythm: sinus tachycardia. Oxygen administered (duo neb tx given). interface developer, NIBP monitor and pulse oximeter placed on patient. Patient gowned. Reassurance given. Two patient identifiers checked. Call light placed in reach. Side rails up x 2. Bed placed in lowest position. Brakes of bed on. ( respiratory at bedside, given duo neb tx). --04:21 02/09/20 Ghassan Kenny R.N. ( Patient placed on 3 L NC for comfort, unable to obtain O2 sat at this time on monitor, multiple methods tried.). --04:28 02/09/20 Ghassan Kenny R.N. ( Unable to obtain IV access at this time, 2 RNs attempted. MD Marrero aware.). --04:29 02/09/20 Ghassan Kenny R.N. 04:32 02/09/20. BP: 173/117. MAP: 135. HR: 120. RR: 27. O2 saturation: 99% on nasal cannula at 2 l iters/minute. --04:34 02/09/20 Ghassan Kenny R.N. 04:38 02/09/2020 Site #1 started via IV in the right wrist with an 24g angiocath, with aseptic technique. Saline lock flushed with 10 mL saline (By RN GRANT). --04:38 02/09/20 Ghassan Kenny R.N. 04:41 02/09/2020 Solu-Medrol (methylPREDNISolone Sodium Succ) IVP 125 mg given via site #1. Allergies verified and confirmed 5 rights. IV patency established. IV site checked: no pain, redness, or swelling. IV flushed thoroughly pre- and post-medication administration. IVP given by RN. Information reviewed with patient. Verbalizes understanding. --04:41 02/09/20 Ghassan Kenny R.N. 04:42 02/09/20. BP: 123/87. MAP: 99. HR: 113. RR: 23. O2 saturation: 96% on nasal cannula at 2 liters/minute. Pain level now: 0/10. --04:42 02/09/20 Ghassan Kenny R.N. The patient is calm and resting quietly. Overall patient status- he states feels better. ( phlebotomy at bedside at this time to obtain blood work.). --04:42 02/09/20 Ghassan Kenny R.N. 04:33 02/09/2020 Duoneb Neb TX Nebulizer 2 unit dose given. Given by the respiratory therapist. Information reviewed with patient. --04:43 02/09/20 Ingrid Brush ( phlebotomy success on obtaining blood specimen). --05:07 02/09/20 Ghassan Kenny R.N. 05:29 02/09/2020 Duoneb Neb TX Nebulizer 1 unit dose given. Given by the nurse. Allergies verified and confirmed 5 rights. Information reviewed with patient. Verbalizes understanding. --05:29 02/09/20 Carmella Newell RN Critical value relayed by Maura. Critical value received by Ghassan ARRIAGA. BUN: 32. Creatinine: 9.6. Critical value read back. Verified lab result and patient ID. ED physician notifed of critical value. Orders were not received. No action is required. --05:36 02/09/20 Ghassan Kenny R.N. 05:48 02/09/20. BP: 139/79. MAP: 99. HR: 112. RR: 22. O2 saturation: 98% on nasal cannula at 2 5 Clinical Report - Nurses [facility] Emergency Department [address] [place] [address] Phone #: ext- [phone] 02/09/2020 04:07 Patient: CASSIDY VARGHESE Sex: M : 1940 Age: 79y liters/minute. Temp: 98.1 F. Pain level now: 0/10. --05:49 02/09/20 Ghassan Kenny R.N. The patient is calm and resting quietly. Overall patient status- he states feels better. --05:49 02/09/20 Ghassan Kenny R.N. 06:14 02/09/2020 Rocephin (cefTRIAXone Sodium) IM 1 gm given. Given in the right gluteus cindy and left gluteus cindy. Allergies verified and confirmed 5 rights. Information reviewed with patient. Verbalizes understanding. --06:14 02/09/20 Carmella Newell RN ( His vital signs have improved greatly, he continues to have a pesky cough. Lung sounds still wheezing bilaterally. He is now awaiting transfer to [facility].). Three patient identifiers checked. Call light placed in reach. Side rails up. Bed placed in lowest position. --06:17 02/09/20 Carmella Newell RN 06:14 02/09/20. BP: 129/64 taken on the right arm, while lying. MAP: 85. HR: 68 (regular and normal rate). RR: 20 (regular, unlabored and normal). O2 saturation: 95% on room air. Temp: 97.8 F (temporal). Pain level now: 0/10. --06:17 02/09/20 Carmella Newell RN The patient is calm and resting quietly. Overall patient status- he states feels better. --06:26 02/09/20 Ghassan Kenny R.N. 06:25 02/09/20. BP: 111/82. MAP: 91. HR: 110. RR: 27. O2 saturation: 99% on nasal cannula at 3 liters/minute. Temp: 98.3 F. Pain level now: 0/10. --06:26 02/09/20 Ghassan Kenny R.N. The patient is calm and resting quietly. --07:13 02/09/20 Ghassan Kenny R.N. 07:12 02/09/20. BP: 121/99. MAP: 106. HR: 108. RR: 23. O2 saturation: 99% on room air. Temp: 98.3 F. Pain level now: 010. --07:13 02/09/20 Ghassan Kenny R.N.DISPOSITION / DISCHARGE Transferred to [facility]. Visit overview, summary of care (CCDA) and Face Sheet provided to transfer facility via paper and fax. Report was given to a nurse via a phone call. Report included information regarding patient's care, treatment, allergies and condition including: recent changes, current vital signs and critical or abnormal labs. Report included treatment information regarding medications given or pending; type and amount of IV fluids and medications infusing and total volume infused. All questions were answered. Report was acknowledged and care was transferred. (Janet ARRIAGA). ( Awaiting for ambulance to transport pt to [facility]). --06:46 02/09/20 Ghasasn Kenny R.N. 06:46 02/09/2020 Site #1 removed upon admission. Bandaid applied (IV blew). --06:47 02/09/20 Ghassan Kenny R.N. 07:35 02/09/20. BP: 134/69. MAP: 90. HR: 107. RR: 20. O2 saturation: 99% on nasal cannula at 2 liters/minute. Temp: 98.5 F. Pain level now: 010. --07:44 02/09/20 Angie Hardin RN Departure time: 07:40 02/09/2020. --07:44 02/09/20 Angie Hardin RN. 6 Clinical Report - Nurses [facility] Emergency Department [address] [place] [address] Phone #: ext- [phone] 02/09/2020 04:07 Patient: CASSIDY VARGHESE Sex: M : 1940 Age: 79yLocked/Released at 02/09/2020 07:44 by Angie Hardin RN Name Value Range Interpretation Code Description Data Kevin rce(s) Supporting Document(s) ID Date Data Source [id number] 02/09/2020 04:08:00 AM [facility] 1 Clinical Report - Physicians/Mid Levels [facility] Emergency Department [address] [place] [address] Phone #: ext- [phone] 02/09/2020 04:07 Patient: CASSIDY VARGHESE Sex: M : 1940 Age: 79y Time Seen: 04:11 02/09/2020. Arrived- By ambulance. Historian- EMS personnel. RETURN VISIT: recently seen in this ED by another ED physician within past 30 days. Seen now for the same problem as before. Disposition decision: 06:15 02/09/2020.HISTORY OF PRESENT ILLNESS Chief Complaint: DYSPNEA and HISTORY OF CHRONIC OBSTRUCTIVE PULMONARY DISEASE and WHEEZING Exacerbation of COPD. This started 7 days ago; Seen here in [facility] ED and discharged after COPD exacerbation. Now back with same symptoms. and is still present and worsening. It was abrupt in onset and has been waxing/waning. The dyspnea is described as moderate. It is present at rest. The dyspnea is worsened by walking, exertion, being in a supine position and cough. The patient has had a cough, chest discomfort, wheezing, dyspnea on exertion and orthopnea. He has had anxiety. No sputum production, fever, sweating episodes, chest pain or calf pain. No dizziness, tingling, numbness or palpitations. Similar symptoms previously. Patient has had similar symptoms many times, chronically. Recent medical care: The patient was seen recently at this facility in the emergency department. ( Seen here in [facility] ED 7 days ago).REVIEW OF SYSTEMSThe patient has not had weight loss. No muscle aches, eye irritation, sore throat, nasal discharge or sinusdrainage. No nausea, vomiting, abdominal pain, diarrhea or black stools. No bloody stools, headache,fainting episodes, blurred vision or difficulty with urination. No excessive urination, skin rash, enlargedlymph nodes or joint pain.PAST HISTORYPast history not negative. See nurses notes. Hypertension. Diabetes mellitus. Heart disease. Lungdisease. Renal disease. Other disease. GoutCOPD / Bronchospasm / Asthma / Resp. failureCellulitisM.I.HypokalemiaRenal failure / nephropathyGeneralized weaknessSepsisPulmonary EdemaProstate CACAPD. Surgeries: Amputation below the left knee. Right and left nephrectomy. Prostatectomy. (Toe surgery). 2 Clinical Report - Physicians/Mid Levels [facility] Emergency Department [address] [place] [address] Phone #: ext- [phone] 02/09/2020 04:07 Patient: CASSIDY VARGHESE Sex: M : 1940 Age: 79ySOCIAL HISTORYNever smoker. No alcohol use or drug use. No recent travel.ADDITIONAL NOTESThe nursing notes have been reviewed with agreement regarding the chief complaint, HPI, ROS, PMH andpatient medications and allergies.PHYSICAL EXAMVital Signs: 02/09/2020 04:22 BP: 160/90. MAP: 113.02/09/2020 04:09 HR: 112. RR: 25. O2 saturation: 96%. Temp: 98.1 F. Pain level now: 0/10. Have beenreviewed and appear to be correct. Hypertensive. Tachycardic. Tachypneic. Temperature normal.Oxygen saturation normal.Appearance: Alert. Anxious. Patient in moderate distress. In distress.Eyes: Pupils equal, round and reactive to light. Eyes normal inspection.ENT: Nose normal. Pharynx abnormal. Dry mucous membranes present.Neck: Normal inspection. No jugular venous distention. Neck supple.CVS: Heart rate abnormal. Tachycardia. Normal heart rhythm. Heart sounds normal. Pulses normal.Respiratory: No respiratory distress. Painless inspiration. Breath sounds normal.Abdomen: Soft and nontender. No organomegaly.Back: Normal inspection.Skin: Skin warm and dry. Normal skin color. No rash. Normal skin turgor.Extremities: Extremities exhibit normal ROM. No lower extremity edema. (L BKA).Neuro: Oriented X 3. No motor deficit. No sensory deficit.LABS, X-RAYS, AND EKGLaboratory Tests: Laboratory tests have been ordered, with results reviewed and considered in themedical decision making process. EKG: (MIKE: 02/09/2020 05:52) [place] [facility] [place]58[place] In Progress Urinalysis: (MIKE: 02/09/2020 04:18) ( Mscvd 02/10/2020 05:55) Canceled SOURCE: Clean Catch Troponin-T: (MIKE: 02/09/2020 05:04) ( MsgRcvd 02/09/2020 05:33) Final results Test Result Flag Units (Reference) TROPONIN T 0.11 HH NG/ML (0.00 - 0.10) CALL/ READ BACK DR MARRERO BY: MAURA DATE/TIME 02/09/20 0530 TROPONIN T0.1 ng/ml Recommended as the clinical threshold value forTroponin T. CBC w Diff: (MIKE: 02/09/2020 05:04) ( Mscvd 02/09/2020 05:18) Final results Test Result Flag Units (Reference) CBC W/AUTOMATED DIFF COMPLETE BLOOD COUNT 3 Clinical Report - Physicians/Mid Levels [facility] Emergency Department [address] [place] [address] Phone #: ext- [phone] 02/09/2020 04:07 Patient: CASSIDY VARGHESE Sex: M : 1940 Age: 79y WBC 12.3 H 10/uL (4.2 - 11.0) RBC 2.93 L 10/uL (4.50 - 6.30) HEMOGLOBIN 9.1 L g/dL (14.0 - 16.0) HEMATOCRIT 27.7 L % (41.0 - 51.0) MCV 94.5 H fL (80.0 - 94.0) MCH 31.1 pg (27.0 - 34.0) MCHC 32.9 g/dL (31.0 - 36.0) RDW 16.9 H % (11.5 - 14.8) PLATELETS 325 10/uL (150 - 450) MPV 9.4 fL (7.4 - 10.4) NEUT 35.8 L % (37.0 - 80.0) LYMPH 33.9 % (25.0 - 40.0) MONO 7.7 % (3.0 - 8.0) EOS 22.1 H % (0.0 - 7.0) BASO 0.3 % (0.0 - 2.0) %IG 0.2 H % (0.0 - 0.0) %NRBC 0.0 % (0.0 - 0.0) #NEUT 4.40 10/uL (2.00 - 6.90) #LYMPH 4.18 H 10/uL (0.60 - 3.40) #MONO 0.95 H 10/uL (0.00 - 0.90) #EOS 2.73 H 10/uL (0.00 - 0.70) #BASO 0.04 10/uL (0.00 - 0.20) #IG 0.03 10/uL (0.00 - 0.10) #NRBC 0.00 10/uL (0.00 - 0.00) MANUAL DIFF NOT INDICATED RBC MORPH NOT INDICATEDCMP: (MIKE: 02/09/2020 05:04) ( MsgRcvd 02/09/2020 05:35) Final results Test Result Flag Units (Reference) COMPREHENSIVE METABOLIC PANEL COMPREHENSIVE METABOLIC PANEL SODIUM 137 mEq/L (134 - 153) POTASSIUM 4.2 mEq/L (3.6 - 5.0) CHLORIDE 94 L mEq/L (98 - 107) CO2 30 MEQ/L (22 - 30) GLUCOSE 127 H MG/DL (65 - 110) BUN 32 H MG/DL (7 - 21) CREATININE 9.6 HH MG/DL (0.7 - 1.5) CALL/ READ BACK [place] BY: MAURA DATE/TIME 02/09/20 0533 BUN/CREAT 3 L (8 - 27) TOTAL PROTEIN 6.5 G/DL (6.3 - 8.2) ALBUMIN 3.6 L G/DL (3.9 - 5.0) GLOBULIN 2.9 GM/DL (2.4 - 3.2) A/G RATIO 1.2 (0.8 - 2.0) CALCIUM 10.3 H MG/DL (8.4 - 10.2) TOTAL BILI <0.7 MG/DL (0.2 - 1.3) ALKALINE PHOS 94 U/L (38 - 126) SGOT/AST 20 U/L (5 - 40) SGPT/ALT 24 U/L (7 - 56) ANION GAP 13.0 mmol/L (8.0 - 16.0) AGE 79 yrs NON-AA GFR 6 mL/min AFR AMER GFR 7 mL/min Male GFR Interprentation 20-49 yrs >60 mL/min Mcqgpa01-54 yrs >56 mL/min Normal 60-69 yrs >49 mL/min Normal 70-79yrs>42 mL/min Normal 80 and above >35 mL/min Normal Female GFRInterpretation 20-39 yrs >60 mL/min Normal 40-49 yrs >58 mL/min 4 Clinical Report - Physicians/Mid Levels [facility] Emergency Department [address] [place] [address] Phone #: ext- [phone] 02/09/2020 04:07 Patient: CASSIDY VARGHESE Sex: M : 1940 Age: 79yNormal 50-59 yrs >51 mL/min Normal 60-69 yrs >45 mL/min Wjpssc50-22 yrs >39 mL/min Normal 80 and above >32 mL/min NormalD-Dimer: (MIKE: 02/09/2020 05:04) ( MsgRcvd 02/09/2020 05:18) Final results Test Result Flag Units (Reference) D-DIMER QUANT 0.92 H ug/mL (0.27 - 0.50)Chest Portable 1 View: (MIKE: 02/09/2020 04:18) ( MsgRcvd 02/09/2020 08:53) [place]ason(s): Shortness of BreathTRANSPORTATION: S IV? O2? Oxygen?(Yes) Room: [place] [address] PHONE: [phone] FAX: [phone] Name .................. : ABIMAEL Fair Acct Number.................. : [id number] ROOM. ................. : TR- 02 MR Number ................... : [id number] Stay type ............. : E/R Discharge Date......... ... : 02/09/20 Admit Date ......... : 02/09/20 Admit Phys .................... : ELIDA DE OLIVEIRA Date of ....... : 1940 Family Phys ................... : UNKNOWN Phone .................. : [phone] Age ................................ : 79 Film# .................. .:[id number] Sex ................................. : M Unsigned transcriptions are preliminary reports and do not represent a medical or legal document CHEST PORTABLE [id number] COMPL ETE:02/09/20 05:30 RLB [id number] Reason(s): Shortness of Breath AP PORTABLE CHEST X-RAY: FINDINGS: The lung laurent are clear. The heart and mediastinum are within normal limits. Atherosclerotic changes in the aorta with no signs of any acute disease and no change from 02/03/20. IMPRESSION: No acute disease with no significant changes. Electronically Reviewed and Signed By DCTNAME , SIGNDATE, [facility] Transcribe Initials: DALE , Transcribe Date: 02/09/20 08:51, Dictation Date: <<REPDIST>> Page 1of 1 5 Clinical Report - Physicians/Mid Levels [facility] Emergency Department [address] [place] [address] Phone #: ext- [phone] 02/09/2020 04:07 Patient: CASSIDY VARGHESE Sex: M : 1940 Age: 79y . Note - Tests: (CXR - COPD EKG - Sinus rhythm with PVCs.).PROGRESS AND PROCEDURESCourse of Care: 05:53 Feb 09 2020. Patient is stable. Symptoms better. 05:53 Feb 09 2020. Pt. having exacerbation of COPD and is improved, but will need admission. He is a dialysis patient (bilateral nephrectomies) and will have to be transferred to higher level of care with dialysis capacity. I spoke earlier to [facility] and they have no beds available. I am now waiting for a call back from [facility]. 06:[address] Lam has accepted pt. for transfer to [facility] for further evaluation and treatment. Will send by ambulance. Critical care performed (130 minutes). Time is exclusive of separately billable procedures. Time includes: direct patient care, patient reassessment, coordination of patient care, interpretation of data (laboratory data, pulse oximetry and chest xrays), review of patient's medical records, medical consultation and documentation of patient care- see progress notes. Procedures included in critical care time: peripheral IV placement and phlebotomy- see progress notes. Disposition: Benefits, risks and alternatives to transfer ex plained to patient. Transferred to [facility]. Summary of care (CCDA) provided to transport team, EMS, patient, family and transfer facility via paper and digital media. 06:15 Feb 09 2020 Transfer to [facility] by ambulance as per Dr. Lam (Accepting ED attending). UTI (catheter associated) was not present prior to transfer. Pressure ulcer was not present prior to transfer. Vascular infection (catheter associated) was not present prior to transfer. Surgical site infection was not present prior to transfer. An object left in surgery was not present prior to transfer. Blood incompatibility was not present prior to transfer. Air embolism was not present prior to transfer.CLINICAL IMPRESSION Acute exacerbation of COPD (asthmatic, chronic bronchitis). Severe chronic renal failure- end stage disease (Bilateral nephrectomies - Dialysis- dependent).(Electronically signed by Merritt Marrero, Physician 02/10/2020 07:17) Name Value Range Interpretation Code Description Data Kevin rce(s) Supporting Document(s) ID Date Data Source [id number] 02/10/2020 07:41:00 AM EST [facility] Name Value Range Interpretation Code Description Data Kevin rce(s) Supporting Document(s) PHOSPHORUS 4.7 mg/dL (2.5-4.5) H [facility] ID Date Data Source [id number] 02/10/2020 07:41:00 AM EST [facility] Name Value Range Interpretation Code Description Data Kevin rce(s) Supporting Document(s) SODIUM 140 mmol/L (136-145) [facility] POTASSIUM 4.0 mmol/L (3.6-5.2) [facility] CHLORIDE 100 mmol/L (100-108) [facility] CO2 32 mmol/L (22-31) H [facility] ANION GAP 8 mmol/L (7-16) [facility] UREA NITROGEN 38 mg/dL (7-24) H [facility] CREATININE 9.76 mg/dL (0.80-1.30) [facility] RESULT(S) CALLED TO AND READ BACK BYDESR IE ON 6N AT 0739 ON 02/10/20.69515 BUN/CREAT RATIO 3.9 RATIO (10.0-20.0) L [facility] GLUCOSE 93 mg/dL (70-99) [facility] CALCIUM 9.1 mg/dL (8.4-10.2) [facility] TOTAL PROTEIN 5.8 g/dL (6.4-8.2) L [facility] ALBUMIN 2.4 g/dL (3.2-4.5) L [facility] GLOBULIN 3.4 g/dL (2.7-4.3) [facility] ALB/GLOB RATIO 0.7 RATIO [facility] ALKALINE PHOSPHATASE 71 U/L (45-117) [facility] BILIRUBIN,TOTAL 0.3 mg/dL (0.0-1.0) [facility] PLEASE NOTE:Total bilirubin results may be falselyelevated in patients taking Eltrombopag. AST (SGOT) 14 U/L (11-39) [facility] ALT (SGPT) 25 U/L (12-78) [facility] GFR 5 ml/min/1.73m2 (>59) L [facility] GFR ( AMER) 6 ml/min/1.73m2 (>59) L [facility] GFR INTERPRETATION [facility] --NORMAL KIDNEY FUNCTION OR MILD DISEASE - GFR >OR= 60CHRONIC KIDNEY DISEASE - GFR 15 - 59RENAL FAILURE - GFR <15 Est. GFR calculation based on the MDRDstudy equation, which assumes a steadystate for creatinine. Est. GFR should notbe used for medication dosing. ID Date Data Source [id number] 02/10/2020 07:41:00 AM EST [facility] Name Value Range Interpretation Code Description Data Kevin rce(s) Supporting Document(s) MAGNESIUM 1.9 mg/dL (1.7-2.4) [facility] ID Date Data Source [id number] 02/10/2020 07:04:35 AM EST [facility] Name Value Range Interpretation Code Description Data Kevin rce(s) Supporting Document(s) WBC 7.2 10*3/uL (4.1-11.0) [facility] RBC 2.68 10*6/uL (4.60-6.10) L [facility] HGB 8.3 g/dL (13.5-18.0) L [facility] HCT 25.5 % (41.0-53.0) L [facility] MCV 95.0 fL (80.0-95.0) [facility] MCH 30.8 pg (27.0-32.0) [facility] MCHC 32.4 g/dL (32.0-36.0) [facility] RDW 17.6 % (10.5-14.5) H [facility] PLT 265 10*3/uL (150-450) [facility] MPV 7.7 fL (7.1-10.7) [facility] ID Date Data Source [id number] 02/10/2020 07:05:00 AM EST [facility] [address] [id number] [place], [place] [id number] NAME: KARAN VARGHESE OF : 1940REPORT: ADMISSION NOTEPATIENT NUMBER: [id number] STATUS: OF ADMISSION: 02/09/2020ROOM: [address] [place] [address] CARE PROVIDER: Out of area.ADMITTING COMPLAINTS:1. Cough.2. Shortness of breath.HISTORY OF PRESENT ILLNESS: Patient has stated that he was in his usual state of health. For about last 2 weeks, he noted that he is having cough which is mostly dry, associated with shortness of breath. He wakes up in the middle of the night with the cough, but I could not elicit any history suggestive of paroxysmal nocturnal dyspnea or orthopnea. The patient denies any known cardiac history. The patient denies any diagnosis of asthma or COPD. Of note is that at home the patient takes metered-dose inhaler, both Atrovent and Proventil, as well as Spiriva.The patient denied any fever. No chills. No rigors. No known sickcontact. His appetite is normal. No obvious weight gain.He has also right great toe ulceration. The patient is not a diabetic. 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 leg has pain, no obvious aggravating or relieving factor. 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 Keita in [facility] He is sent to our ER from [place]. Recently, he went to the ER for the same admitting problem for at least two times. The patient also stated to Nursing that he has right foot and leg pain. In the past, he was diagnosed to have a small blood blister. No history of trauma. The patient is on dialysis for about last 10 years. Initially, he was on hemodialysis, now the patient is on peritoneal dialysis. It appears that he never had any complication related to PD.PAST MEDICAL HISTORY:1. End-stage renal disease, peritoneal dialysis.2. Query COPD.3. Dyslipidemia.4. Peripheral arterial disease.5. GERD.6. Glaucoma.PAST SURGICAL HISTORY: Left below-knee amputation.ALLERGIES: Amlodipine - reaction unknown; hydralazine - reaction unknown;Indocin - unknown reaction; minoxidil, Mircera - unknown; morphine -unknown, Norvasc - unknown.HOME MEDICATIONS:Home Medicationsalbuterol sulfate 2.5 mg/3 mL (0.083 %) Solution for Nebulization 3 mL byinhalation four times daily PRNPRN Reason: shortness of breathMedication Status: activeaspirin (Enteric Coated Aspirin) 81 mg tablet,delayed release (DR/EC) 1tablet oral dailyMedication Status: activeatorvastatin 40 mg Tablet 1 tablet oral daily at bedtimeMedication Status: activebenzonatate 200 mg Capsule 1 capsule oral every eight hours PRNPRN Reason: coughMedication Status: activecefTRIAXone 1 gram Recon Soln 1 gram intramuscular onceExtended Instructions: *Dose administered in [facility] 02/08 @ 614Medication Status: activeLast Taken Date/Time: 02/08 0614cinacalcet (Sensipar) 60 mg Tablet 1 tablet oral every Tuesday, Tuesday,Tuesday in the eveningMedication Status: activeclopidogrel (Plavix) 75 mg Tablet 1 tablet oral dailyMedication Status: activedocusate sodium (Colace) 100 mg Capsule 2 capsule oral twice a dayMedication Status: activeepoetin alyson (Epogen) 20,000 unit/mL Solution 1 dose subcutaneous every 2weeksMedication Status: activeipratropium- albuterol 0.5 mg-3 mg (2.5 mg base)/3 mL Solution forNebulization 3 mL by inhalation onceMedication Reason: shortness of breathExtended Instructions: *2 doses administered in [facility] on 02/08Medication Status: activeLast Taken Date/Time: 02/08 @ 0433 & 0529latanoprost 0.005 % Drops 1 drop ophthalmic, both eyes daily at bedtimeMedication Status: activemethylPREDNISolone sodium succ (Solu-MEDROL) 125 mg Recon Soln 1 doseintravenous onceExtended Instructions: *Dose administered in [facility] 02/08 @0441Medication Status: activeLast Taken Date/Time: 02/08 441midodrine 5 mg Tablet 1 tablet oral three times a day PRNPRN Reason: SBP less than or equal to 140Medication Status: activemupirocin 2 % Ointment 1 application topical dailyExtended Instructions: Apply to affected area at each dressing changeMedication Status: activenortriptyline 10 mg Capsule 3 capsule oral twice a dayMedication Status: activeomeprazole 20 mg capsule,delayed release(DR/EC) 1 capsule oral daily everymorningMedication Status: activepolyethylene glycol 3350 (Miralax) 17 gram Powder in Packet 1 packet oraldaily PRNPRN Reason: constipationMedication Status: activepotassium chloride 20 mEq Tablet Extended Release 1 tablet oral daily everymorningMedication Status: activesevelamer carbonate (Renvela) 800 mg Tablet 1 tablet oral three times a daywith or after mealMedication Status: activetiotropium bromide (SPIriva with HandiHaler) 18 mcg Capsule, w/InhalationDevice 1 capsule by inhalation daily every eveningMedication Status: activeLast Taken Date/Time: unknownheparin injection unknown dose administered once a week on Tuesday- It isunclear as to what dose patient administering at homePERSONAL AND SOCIAL HISTORY: , lives with . Used to smoke andthen quit at least 50 years ago. He was never a heavy smoker. Denied anysubstance use.FAMILY HISTORY: No known history of familial cancer or premature coronaryartery disease.REVIEW OF SYSTEMS: Denies any prostration, fever, chills, rigors, runny orstuffy nose. Eyes: No complaints. Ear, nose, and throat: No earache, notinnitus, no nasal congestion, no throat pain. C ardiovascular system: Noknown cardiac history. Extremities: The patient now is wheelchair boundbecause of BKA, yet to receive prosthesis. I could not elicit definitehistory suggestive of orthopnea or paroxysmal nocturnal dyspnea.Respiratory system: Dry cough, shortness of breath, breathing is moredifficult . Gastrointestinal: Normal appetite. Denies to be constipated. No diarrhea. Musculoskeletal: Right great toe and leg pain. Skin: Right great toe ulcer. Hematological: The patient is known to have anemia. No gum bleeding.PHYSICAL EXAMINATION: General: A very pleasant, well-built gentlemanlying on the back, not in any obvious distress, very cooperative. Vitals:Temperature 36.8, pulse rate 105, blood pressure ranges from 142/80,respiratory rate is 20, oxygen with 3 liters nasal cannula 96 percent.Oral cavity: Mucosa is moist, no ulceration. Neck: Thyroid gland is notpalpable. No cervical lymphadenopathy. Nervous system: Alert, awake,oriented x3. Cognition intact. Cranial nerves II through XII intact.Motor bilateral symmetrical. Sensory not tested. Respiratory system:Trachea is midline. No clubbing, no cyanosis. Vesicular: Prolongedexpiration and few scattered wheezes. Cardiovascular system: No carotidbruit. Regular. Normal S1 and S2. Could not appreciate any murmur.Abdomen: Soft, nontender. No organomegaly. PD catheter in place, siteappears to be clean. I could not appreciate any organomegaly. Locomotor:Left BKA. Right lower extremity edematous, shiny. Great toe is dressed.Papers sent from [facility] reviewed.PERTINENT INVESTIGATIONS: COVID negative. X-ray chest, single view: Noacute cardiopulmonary process. No EKG was done. [facility] Repeat labs ordered for tomorrow.ASSESSMENT AND PLAN: Mr. Cassidy Varghese, a very pleasant 79-year-old AfricanAmerican gentleman, [facility]. The patient deniesany known cardiac history. The patient is on bronchodilator, though hedenies any diagnosis of asthma or COPD. Problem and plan were explained tothe patient. We will admit the patient as an inpatient. He will need morethan 2 midnights to stay in the hospital. Diet regular, the patient doesnot want restricted diet. Activity as tolerates. Code - full code. Thepatient's is healthcare proxy. We will maintain fall precautions.1. Increasing shortness of breath, probably COPD exacerbation. The patient is treated for upper respiratory tract infection. We will continue bronchodilator. Suppl emental oxygen as needed and Spiriva. We will arrange echocardiogram to rule out any cardiac dysfunction.2. End-stage renal disease. The patient is on peritoneal dialysis. Nephrology Service was informed.3. Right great toe ulcer and pain. The patient is not a diabetic. The patient may have peripheral arterial disease. We will add Doppler and Vascular Surgery consult. Discussed with the patient and the patient agreed with the plan.4. Autonomic dysfunction. It appeared on the medication list he is on midodrine. We will continue the same. We will continue the patient's maintenance aspirin and atorvastatin.CONDITION: Stable.PROGNOSIS: Guarded.LEVEL OF SERVICE: Inpatient.COMPLEXITY: High.DICTATED BY: FRANNIE Dubonictated: 02/09/2020 17:56DT: 02/09/2020 21:55Job #: [id number]: [facility] computer generated reports are notconfirmed or authentic`ated unless they are signed by the providerElectronically Authenticated and Edited by:Cornel Campa MD On 02/10/2020 07:05 AM EST Name Value Range Interpretation Code Description Data Kevin rce(s) Supporting Document(s) ID Date Data Source [id number] 02/15/2020 10:33:37 AM EST [facility] SPECIMEN DESCRIPTION PERIPHERALSP ECIAL REQUESTS NONECULTURE RESULTS NO GROWTH 6 DAYSREPORT STATUS FINAL 02/15/2020 Name Value Range Interpretation Code Description Data Kevin rce(s) Supporting Document(s) ID Date Data Source [id number] 02/15/2020 10:33:37 AM EST [facility] SPECIMEN DESCRIPTION PERIPHERALSP ECIAL REQUESTS NONECULTURE RESULTS NO GROWTH 6 DAYSREPORT STATUS FINAL 02/15/2020 Name Value Range Interpretation Code Description Data Kevin rce(s) Supporting Document(s) ID Date Data Source [id number] 02/09/2020 10:23:00 AM EST [facility] DATE OF EXAM: 02/09/2020AP chest Indicat ion: COPD Comparison: None Technique: Single frontal view (AP) of the chest. Findings:Cardiac silhouette and mediastinal contours are within normal limits. Calcification is seen within the aortic arch and descending thoracic aorta. The lungs are clear. No pleural effusion or pneumothorax. Moderate multilevel degenerative disc changes of the thoracic spine. IMPRESSION:No acute cardiopulmonary disease process. K8End of diagnostic report for accession: [id number] Interpreted: Chung Bennett MDTranscribed: 02/09/2020 10:23 AMSigned: 02/09/2020 10:23 AM Chung Bennett MD [facility] # [id number] BILL # [id number] Name Value Range Interpretation Code Description Data Kevin rce(s) Supporting Document(s) ID Date Data Source [id number] 02/09/2020 10:09:00 AM EST [facility] Name Value Range Interpretation Code Description Data Kevin rce(s) Supporting Document(s) SARS coronavirus 2 RNA [Presence] in Res piratory specimen by RAY with probe detection [facility] This lab was reported by [facility]. ID Date Data Source [id number] 02/09/2020 11:48:57 AM EST [facility] Name Value Range Interpretation Code Description Data Kevin rce(s) Supporting Document(s) SPECIMEN DESCRIPTION [facility] INFLUENZA A (NEG) [facility] INFLUENZA B (NEG) [facility] RSV (NEG) [facility] COMMENT [facility] UNDER AN EMERGENCY USE AUTHORIZATION(EUA ) FOR THE DETECTION AND/OR DIAGNOSISOF THE VIRUS THAT CAUSES COVID-19.PERFORMED AT [address] [facility] [address] COVID19 RESULT (NDET) Lab [facility] THIS ASSAY AMPLIFIES AND DETECTSTHE TARG ET RNA USING REAL-TIME PCR.NEGATIVE 2019_NCOV RT-PCR RESULTS DONOT PRECLUDE 2019_NCOV INFECTION ANDSHOULD NOT BE USED THE SOLE BASISFOR PATIENT MANAGEMENT DECISIONS. FIRST TEST [facility] EMPLOYED IN HLTHCARE [facility] SYMPTOMATIC [facility] DATE OF SYMPT ONSET [id number] [facility] HOSPITALIZED [facility] ICU [facility] CONGREGATE CARE SET [facility] ID Date Data Source [id number] 02/09/2020 05:34:00 AM EST [facility] Name Value Range Interpretation Code Description Data Kevin rce(s) Supporting Document(s) COMPREHENSIVE METABOLIC PANEL [facility] COMPREHENSIVE METABOLIC PANEL Sodium [Moles/volume] in Serum or Plasma 137 mEq/L 134 - 153 [facility] Potassium [Moles/volume] in Serum or Plasma 4.2 mEq/L 3.6 - 5.0 [facility] Chloride [Moles/volume] in Serum or Plasma 94 mEq/L 98 - 107 L [facility] Carbon dioxide, total [Moles/volume] in Serum or Plasma 30 MEQ/L 22 - 30 [facility] Glucose [Mass/volume] in Serum or Plasma 127 MG/DL 65 - 110 H [facility] BUN 32 MG/DL 7 - [address] [facility] Creatinine [Mass/volume] in Serum or Plasma 9.6 MG/DL 0.7 - 1.5 HH [facility] CALL/ READ BACK [facility] BY: MAURA [facility] DATE/TIME 02/09/20 0533 [facility] ospital BUN/CREAT 3 8 - [address] [facility] Protein [Mass/volume] in Serum or Plasma 6.5 G/DL 6.3 - 8.2 [facility] Albumin [Mass/volume] in Serum or Plasma 3.6 G/DL 3.9 - 5.0 L [facility] Globulin [Mass/volume] in Serum by calculation 2.9 GM/DL 2.4 - 3.2 [facility] A/G RATIO 1.2 0.8 - 2.0 [facility] Calcium [Mass/volume] in Serum or Plasma 10.3 MG/DL 8.4 - 10.2 H [facility] Bilirubin.total [Mass/volume] in Serum or Plasma <0.7 MG/DL 0.2 - 1.3 [facility] Alkaline phosphatase [Enzymatic activity/volume] in Serum or Plasma 94 U/L 38 - 126 [facility] Aspartate aminotransferase [Enzymatic activity/volume] in Serum or Plasma 20 U/L 5 - 40 [facility] Alanine aminotransferase [Enzymatic activity/volume] in Seru m or Plasma 24 U/L 7 - 56 [facility] Anion gap 3 in Serum or Plasma 13.0 mmol/L 8.0 - 16.0 [facility] 79 [facility] AFR AMER GFR 7 mL/min [facility] Male GFR In terprentation 20-49 yrs >60 mL/min Normal 50-59 yrs >56 mL/min Normal 60-69 yrs >49 mL/min Normal 70-79yrs >42 mL/min Normal 80 and above >35 mL/min Normal Female GFR Interpretation 20-39 yrs >60 mL/min Normal 40-49 yrs >58 mL/min Normal 50-59 yrs >51 mL/min Normal 60-69 yrs >45 mL/min Normal 70-79 yrs >39 mL/min Normal 80 and above >32 mL/min Normal ID Date Data Source [id number] 02/09/2020 05:30:00 [facility] Name Value Range Interpretation Code Description Data Kevni rce(s) Supporting Document(s) TROPONIN T 0.11 NG/ML 0.00 - 0.10 [facility] spital CALL/ READ BACK DR MARRERO [facility] BY: MAURA [facility] DATE/TIME 02/09/20 0530 [facility] ospital TROPONIN T0.1 ng/ml Recommended as the c linical threshold value forTroponin T. ID Date Data Source [id number] 02/09/2020 05:18:00 [facility] Name Value Range Interpretation Code Description Data Kevin rce(s) Supporting Document(s) CBC W/AUTOMATED DIFF [facility] COMPLETE BLOOD COUNT Leukocytes [#/volume] in Blood by Automated count 12.3 10^3/uL 4.2 - 11.0 H [facility] Erythrocytes [#/volume] in Blood by Automated count 2.93 10^6/uL 4. 50 - 6.30 L [facility] Hemoglobin [Mass/volume] in Blood 9.1 g/dL 14.0 - 16.0 L [facility] Hematocrit [Volume Fraction] of Blood by Automated count 27.7 % 4 1.0 - 51.0 L [facility] Erythrocyte mean corpuscular volume [Entitic volume] by Auto mated count 94.5 fL 80.0 - 94.0 H [facility] Erythrocyte mean corpuscular hemoglobin [Entitic mass] by Automated count 31.1 pg 27.0 - 34.0 [facility] Erythrocyte mean corpuscular hemoglobin concentration [Mass/volume] by Automated count 32.9 g/dL 31.0 - 36.0 [facility] Erythrocyte distribution width [Ratio] by Automated count 16.9 % 11.5 - 14.8 H [facility] Platelets [#/volume] in Blood by Automated count 325 10^3/uL 150 - 45 0 [facility] Platelet mean volume [Entitic volume] in Blood by Automated count 9.4 fL 7.4 - 10.4 [facility] Neutrophils/100 leukocytes in Blood by Automated count 35.8 % 37. 0 - 80.0 L [facility] Lymphocytes/100 leukocytes in Blood by Manual count 33.9 % 25.0 - 40.0 [facility] Monocytes/100 leukocytes in Blood by Automated count 7.7 % 3.0 - 8.0 [facility] Eosinophils/100 leukocytes in Blood by Automated count 22.1 % 0.0 - 7.0 H [facility] Basophils/100 leukocytes in Blood by Automated count 0.3 % 0.0 - 2.0 [facility] %IG 0.2 % 0.0 - 0.0 [facility] 0.0 % 0.0 - 0.0 [facility] al Neutrophils [#/volume] in Blood by Automated count 4.40 10^3/uL 2.00 - 6.90 [facility] Lymphocytes [#/volume] in Blood by Automated count 4.18 10^3/uL 0.60 - 3.40 H [facility] Monocytes [#/volume] in Blood by Automated count 0.95 10^3/uL 0.00 - 0.90 H [facility] Eosinophils [#/volume] in Blood by Automated count 2.73 10^3/uL 0.00 - 0.70 H [facility] Basophils [#/volume] in Blood by Automated count 0.04 10^3/uL 0.00 - 0.20 [facility] #IG 0.03 10^3/uL 0.00 - 0.10 [facility] ospital #NRBC 0.00 10^3/uL 0.00 - 0.00 [facility]spital MANUAL DIFF NOT INDICATED [facility] RBC MORPH NOT INDICATED [facility] spital ID Date Data Source [id number] 02/09/2020 05:18:00 [facility] Name Value Range Interpretation Code Description Data Kevin rce(s) Supporting Document(s) Fibrin D-dimer FEU [Mass/volume] in Platelet poor plasma 0.92 ug /mL 0.27 - 0.50 H [facility] ID Date Data Source [id number] 02/04/2020 10:37:00 AM [facility] [address] [place] [address] PHONE: [phone] FAX: [phone] Name .................. : ABIMAEL Fair Acct Number.................. : [id number] ROOM. ................. : TR-03 Number ................... : [id number] Stay type ............. : E/R Discharge Date......... ... : 02/03/20 Admit Date ......... : 02/03/20 Admit Phys .................... : [facility] Date of ....... : 1940 Family Phys ................... : UNKNOWN Phone .................. : [phone] Age ................................ : 79 Film# .................. .:[id number] Sex ................................. : M Unsigned transcriptions are preliminary reports and do not represent a medical or legal document CHEST PORTABLE [id number] COMPLETE:02/03/20 06:21 DLA [id number] Reason(s): Congestion PORTABLE CHEST X-RAY: COMPARISON: 07/26/19 FINDINGS: The cardiac and mediastinal silhouettes appear normal and the lungs are clear. The bones and soft tissues are normal. The upper abdomen is unremarkable. IMPRESSION: No acute disease identifiable. Electronically Reviewed and Signed By Yris Garduno MD , 02/04/20 10:37, TUTU Transcribe Initials: DZ , Transcribe Date: 02/03/20 08:38, Dictation Date: Copy for: 710 MED REC DISCHARGED Page 1 of 1 Name Value Range Interpretation Code Description Data Kevin rce(s) Supporting Document(s) ID Date Data Source [id number] 02/03/2020 04:11:00 PM EST [facility] Name Value Range Interpretation Code Description Data Kevin rce(s) Supporting Document(s) Calcium [Mass/volume] in Serum or Plasma 9.3 [facility] ([facility]) Alanine aminotransferase [Enzymatic activity/volume] in Serum or Pl asma 18 [facility] ([facility]) Albumin [Mass/volume] in Serum or Plasma 3.0 [facility] ([facility]) Alkaline phosphatase [Enzymatic activity/volume] in Serum or Plasma 9 6 [facility] ([facility]) Chloride [Moles/volume] in Serum or Plasma 90 [facility] ([facility]) Carbon dioxide, total [Moles/volume] in Serum or Plasma 24 [facility] ([facility]) Potassium [Moles/volume] in Serum or Plasma 4.1 [facility] ([facility]) Protein [Mass/volume] in Serum or Plasma 5.8 [facility] ([facility]) Sodium 131 [facility] Aspartate aminotransferase [Enzymatic activity/volume] in Serum or Plasma 18 [facility] ([facility]) Glucose 105 65-110 [facility] Urea nitrogen [Mass/volume] in Serum or Plasma 35 [facility] ([facility]) Creatinine For GFR 9.9 [facility] ([facility]) ID Date Data Source [id number] 02/03/2020 12:49:00 [place] [address] RESPIRATORY CARE REPORT ==== ---------NAME------- NUMBER SEX AGE ADMIT DISC. XRAY# F/C TYPEGROCE CASSIDY Fair [id number] M 79 02/03/20 02/03/20 [id number] [id number] E/R DATE OF : 1940 M/R# [id number] PH#: [phone] TR-03 LOCATION: EKG [id number] COMPLETE:02/03/20 0 7:40 [address] PHYSICIAN: [facility] [facility] Name Value Range Interpretation Code Description Data Kevin rce(s) Supporting Document(s) ID Date Data Source [id number] 02/03/2020 12:33:00 AM EDT [facility] 1 OrderSheet [facility] Emergency Department [address] [place] [address] Phone #: ext- [phone] 02/03/2020 00:33 Patient: CASSIDY VARGHESE Sex: M : 1940 Age: 79yWEIGHT:68.9 kg (S) HEIGHT:69 inches (S) BMI:22.4ALLERGIES: Amlodipine, Hydralazine, Indocin, Minoxidil, Mircera, NorvascCHIEF COMPLAINT: coughDIAGNOSIS: Bronchospasm, AsthmaLAB ORDERSOrder Description Priority Entered Acknowledged InitialedCMP STAT 01:08 02/03/2020 01:33 Darrel Espino ; Sharifa ARRIAGACBC w Diff STAT 01:08 02/03/2020 01:33 Darrel Espino ; Sharifa RNBNP STAT 01:13 02/03/2020 01:33 Darrel Espino RNTroponin-T STAT 01:13 02/03/2020 01:33 Darrel Espino ; Sharifa ARRIAGADIAGNOSTIC STUDY ORDERSOrder Description Priority Entered Acknowledged InitialedChest Portable 1 STAT 01:08 02/03/2020 01:32 Darrel Gimenez ; Sharifa RN(Oxygen?(No)) Reason for Study: Congestion, CoughMEDICATION/IV/DRIP/FLUID ORDERSOrder Description Priority Entered Acknowledged InitialedDuoNeb Neb Tx 3 01:08 02/03/2020 01:32 KrishnaenmL (NOW x1) Darrel Sherman ; Sharifa ARRIAGATylenol with 02:07 02/03/2020 Cancelled: Patient Refusal 02:14 StevenCodeine Liquid PO Darrel Sherman ; Sharifa RN5 mL (NOW x1,HIGH ALERTMEDICATION)Tessalon Perles PO 02:14 02/03/2020 02:19 Twecqc349 mg (NOW x1) Darrel Sherman RNSOLU-Medrol 125 02:16 02/03/2020 Cancelled: Duplicate Order 02:18 Sherman,mg IV X1 Dose: 125 Darrel Shermanmg (X1)Dexamethasone 02:18 02/03/2020 02:32 Luiz 2 OrderSheet [facility] Emergency Department [address] [place] [address] Phone #: ext- [phone] 02/03/2020 00:33 Patient: CASSIDY VARGHESE Sex: M : 1940 Age: 79yPO 8 mg (NOW x1) Darrel Sherman ; Sharifa ARRIAGAGENERAL ORDERSOrder Description Priority Entered Acknowledged InitialedEKG 01:08 02/03/2020 01:09 Darrel Whiting R.N.[Electronically signed by Luiz Skaggs RN (03:04 02/03/2020)][Electronically signed by Darrel Sherman (06:06 02/03/2020)][Electronically locked by Luiz Skaggs RN (03:04 02/03/2020)] Name Value Range Interpretation Code Description Data Kevin rce(s) Supporting Document(s) ID Date Data Source [id number] 02/03/2020 12:33:00 AM EDT [facility] 1 Medication Reconciliation Report [facility] Emergency Department [address] [place] [address] Phone #: ext- [phone] 02/03/2020 00:33 Patient: CASSIDY VARGHESE Sex: M : 1940 Age: 79yWeight: 68.9 kgHeight/Length: 69 in.BMI: 22.4ALLERGIES: Amlodipine, Hydralazine, Indocin, Minoxidil, Mircera, NorvascThe patient's Home Medications are listed below:THE FOLLOWING MEDICATIONS NEED TO BE RECONCILED: Albuterol Sulfate Inhalation Allopurinol Oral (100 mg) 1 tablet, daily, prn Aspir-81 Oral, daily Calcium Acetate Oral 667 mg, 3x a day Epogen Injection (58972 unit/mL), once a week Heparin Sodium (Porcine) Injection (1000 unit/mL), once a week Isosorbide Mononitrate ER Oral (60 mg) 1 tablet, daily Metoprolol Succinate ER Oral (100 mg) 1 tablet, daily Mupirocin External Nortriptyline HCl Oral (25 mg) 1 capsule, daily, at bedtime Omeprazole Oral 20 mg, daily Paricalcitol Oral (1 mcg) 3 caps, monthly Percocet Oral (5-325 mg) 1 tablet, 3x a day, prn Potassium Chloride ER Oral (20 meq), daily Renvela Oral (800 mg) 1 tablet, 3x a day 2 Medication Reconciliation Report [facility] Emergency Department [address] [place] [address] Phone #: ext- [phone] 02/03/2020 00:33 Patient: CASSIDY VARGHESE Sex: M : 1940 Age: 79y Sensipar Oral (60 mg), daily Spiriva Respimat Inhalation, daily Uloric Oral 40 mg, dailyThe source(s) of the original Home Medication information:patientThe following Medications were given to the patient in the Emergency Department:Duoneb [Neb Tx] Neb TX 1 unit dose, administered: 02/03/2020 1:32:00 AMTessalon Perles [PO] PO 200 mg, administered: 02/03/2020 2:19:00 AMDexamethasone [PO] PO 8 mg, administered: 02/03/2020 2:32:00 AMThe following Medications were prescribed to the patient:Tessalon 200 mg: take 1 orally every 8 hours. Dispense fifteen (15). No refills. -- Darrel Sherman Name Value Range Interpretation Code Description Data Kevin rce(s) Supporting Document(s) ID Date Data Source [id number] 02/03/2020 12:33:00 AM EDT [facility] 1 Medication Administration Record [facility] Emergency Department [address] [place] [address] Phone #: ext- [phone] 02/03/2020 00:33 Patient: CASSIDY VARGHESE Sex: M : 1940 Age: 79yWeight: 68.9 kgHeight/Length: 69 inBMI: 22.4ALLERGIES: Amlodipine, Hydralazine, Indocin, Minoxidil, Mircera, Norvasc Date/Time Medication Administered Medication OrderedGiven DUONEB [NEB TX] DuoNeb Neb Tx 3 mL (NOW x1)01:32 02/03/2020 Dose: 1 unit dose Nebulizer Neb TXLuiz Skaggs RNGiven TESSALON PERLES [PO] Tessalon Perles PO 200 mg (NOW02:19 02/03/2020 (BENZONATATE) x1)Luiz Skaggs RN Dose: 200 mg Capsules POGiven DEXAMETHASONE [PO] Dexamethasone PO 8 mg (NOW02:32 02/03/2020 Dose: 8 mg Tablets PO x1)Luiz Skaggs RN Name Value Range Interpretation Code Description Data Kevin rce(s) Supporting Document(s) ID Date Data Source [id number] 02/03/2020 12:33:00 AM EDT [facility] 1 General Instructions [facility] Emergency Department [address] [place] [address] Phone #: ext- [phone] 02/03/2020 00:33 Patient: CASSIDY VARGHESE Sex: M : 1940 Age: 79yAcute bronchospasmReactive airway disease with acute bronchospasm and cough. Acute bronchitis.INSTRUCTIONSWarnings: GENERAL WARNINGS: Return or contact your physician immediately if your conditionworsens or changes unexpectedly, if not improving as expected, or if other problems arise.Prescription Medications:Tessalon 200 mg: take 1 orally every 8 hours. Dispense fifteen (15). No refills.Follow-up:Follow up with your doctor in two if not better.Understanding of the discharge instructions verbalized. ADDITIONAL INFORMATIONBronchospasm (Adult) 2 General Instructions [facility] Emergency Department [address] [place] [address] Phone #: ext- [phone] 02/03/2020 00:33 [id number] Sex[facility] M : 1940 Age: 79yBronchospasm occurs when the airways (bronchial tubes) go into spasm and contract. This makes ithard to breathe and causes wheezing (a high-pitched whistling sound). Bronchospasm can alsocause frequent coughing without wheezing.Bronchospasm is due to irritation, inflammation, or allergic reaction of the airways. People withasthma get bronchospasm. However, not everyone with bronchospasm has asthma.Being exposed to harmful fumes, a recent case of bronchitis, exercise, or a flare-up of chronicobstructive pulmonary disease (COPD) may cause the airways to spasm. An episode ofbronchospasm may last 7 to 14 days. Medicine may be prescribed to relax the airways and preventwheezing. Antibiotics will be prescribed only if your healthcare provider thinks there is a bacterialinfection. Antibiotics do not help a viral infection.Home care Drink lots of water or other fluids (at least 10 glasses a day) during an attack. This will loosen lung secretions and make it easier to breathe. If you have heart or kidney disease, check with your doctor before you drink extra fluids. 3 General Instructions [facility] Emergency Department [address] [place] [address] Phone #: ext- [phone] 02/03/2020 00:33 Patient: CASSIDY VARGHESE Sex: M : 1940 Age: 79y Take prescribed medicine exactly at the times advised. If you take an inhaled medicine to help with breathing, don't use it more than once every 4 hours, unless told to do so. If prescribed an antibiotic or prednisone, take all of the medicine, even if you are feeling better after a few days. Don't smoke. Also avoid being exposed to secondhand smoke. If you were given an inhaler, use it exactly as directed. If you need to use it more often than prescribed, your condition may be getting worse. Contact your healthcare provider.Follow-up careFollow up with your healthcare provider, or as advised.If you are age 65 or older, have a chronic lung disease or condition that affects your immune system,or you smoke, ask your healthcare provider about getting a pneumococcal vaccine, as well as ayearly flu shot (influenza vaccine).When to seek medical adviceCall your healthcare provider right away if any of these occur: You need to use your inhalers more often than usual Fever of 100.4F (38C) or higher, or as directed by your healthcare provider Cough that brings up lots of dark- colored sputum (mucus) You don't get better within 24 hoursCall 911Call 911 if any of these occur: Coughing up bloody sputum (mucus) Chest pain with each breath Increased wheezing or shortness of breath [phone] [employer]. [address] [place] [address]. All rights reserved. This information is not intended as asubstitute for professional medical care. Always follow your healthcare professional's instructions.Viral or Bacterial Bronchitis with Wheezing (Adult) 4 General Instructions [facility] Emergency Department [address] [place] [address] Phone #: ext- [phone] 02/03/2020 00:33 Patient: CASSIDY VARGHESE Sex: M : 1940 Age: 79yBronchitis is an infection of the air passages. It often occurs during a cold and is usually caused by avirus. Symptoms include cough with mucus (phlegm) and low-grade fever. This illness is contagiousduring the first few days and is spread through the air by coughing and sneezing, or by direct contact(touching the sick person and then touching your own eyes, nose, or mouth).If there is a lot of inflammation, air flow is restricted. The air passages may also go into spasm,especially if you have asthma. This causes wheezing and difficulty breathing even in people who donot have asthma.Bronchitis usually lasts 7 to 14 days. The wheezing should improve with treatment during the firstweek. An inhaler is often prescribed to relax the air passages and stop wheezing. Antibiotics will beprescribed if your doctor thinks there is also a secondary bacterial infection.Home care If symptoms are severe, rest at home for the first 2 to 3 days. When you go back to your usual activities, don't let yourself get too tired. 5 General Instructions [facility] Emergency Department [address] [place] [address] Phone #: ext- [phone] 02/03/2020 00:33 Patient: CASSIDY VARGHESE Sex: M : 1940 Age: 79y Dont s'moke. Also avoid being exposed to secondhand smoke. You may use ofvm-pfq-aqawncd medicine to control fever or pain, unless another medicine was prescribed. Note: If you have chronic liver or kidney disease or have ever had a stomach ulcer or gastrointestinal bleeding, talk with your healthcare provider before using these medicines. Also talk to your provider if you are taking medicine to prevent blood clots.) Aspirin should never be given to anyone younger than 18 years of age who is ill with a viral infection or fever. It may cause severe liver or brain damage. Your appetite may be poor, so a light diet is fine. Stay well hydrated by drinking 6 to 8 glasses of fluids per day (such as water, soft drinks, sports drinks, juices, tea, or soup). Extra fluids will help loosen secretions in the nose and lungs. Mocu-sxp-awudztg cough, cold, and sore-throat medicines will not shorten the length of the illness, but they may be helpful to reduce symptoms. (Note: Don't use decongestants if you have high blood pressure.) If you were given an inhaler, use it exactly as directed. If you need to use it more often than prescribed, your condition may be worsening. If this happens, contact your healthcare provider. If prescribed, finish all antibiotic medicine, even if you are feeling better after only a few days.Follow-up careFollow up with your healthcare provider, or as advised. If you had an X-ray or ECG(electrocardiogram), a specialist will review it. You will be notified of any new findings that may affectyour care.If you are age 65 or older, or if you have a chronic lung disease or condition that affects your immunesystem, or you smoke, ask your healthcare provider about getting a pneumococcal vaccine and ayearly flu shot (influenza vaccine).When to seek medical adviceCall your healthcare provider right away if any of these occur: Fever of 100.4F (38C) or higher, or as directed by your healthcare provider Coughing up increasing amounts of colored sputum Weakness, drowsiness, headache, facial pain, ear pain, or a stiff neckCall 911Call 911 if any of these occur. 6 General Instructions [facility] Emergency Department [address] [place] [address] Phone #: ext- [phone] 02/03/2020 00:33 Patient: CASSIDY VARGHESE Sex: M : 1940 Age: 79y Coughing up blood Worsening weakness, drowsiness, headache, or stiff neck Increased wheezing not helped with medication, shortness of breath, or pain with breathing [phone] [employer]. [address] [place] [address], [place] [id number]. All rights reserved. This information is not intended as asubstitute for professional medical care. Always follow your healthcare professional's instructions.Benzonatate capsulesWhat is this medicine?BENZONATATE (kiera HUMAIRA na vargas) is used to treat cough.How should I use this medicine?Take this medicine by mouth with a glass of water. Follow the directions on the prescription label.Avoid breaking, chewing, or sucking the capsule, as this can cause serious side effects. Take yourmedicine at regular intervals. Do not take your medicine more often than directed.Talk to your county ordinary regarding the use of this medicine in children. While this drug may beprescribed for children as young as 10 years old for selected conditions, precautions do apply.What side effects may I notice from receiving this medicine?Side effects that you should report to your doctor or health memory care program director as soon as possible: allergic reactions like skin rash, itching or hives, swelling of the face, lips, or tongue breathing problems chest pain confusion or hallucinations irregular heartbeat numbness of mouth or throat seizuresSide effects that usually do not require medical attention (report to your doctor or health careprofessional if they continue or are bothersome): burning feeling in the eyes constipation 7 General Instructions [facility] Emergency Department [address] [place] [address] Phone #: ext- [phone] 02/03/2020 00:33 Patient: CASSIDY VARGHESE Sex: M : 1940 Age: 79y headache nasal congestion stomach upsetWhat may interact with this medicine?Do not take this medicine with any of the following medications: MAOIs like Carbex, Eldepryl, Marplan, Nardil, and ParnateWhat if I miss a dose?If you miss a dose, take it as soon as you can. If it is almost time for your next dose, take only thatdose. Do not take double or extra doses.Where should I keep my medicine?Keep out of the reach of children.Store at room temperature between 15 and 30 degrees C (59 and 86 degrees F). Keep tightly closed.Protect from light and moisture. Throw away any unused medicine after the expiration date.What should I tell my health care provider before I take this medicine?They need to know if you have any of these conditions: kidney or liver disease an unusual or allergic reaction to benzonatate, anesthetics, other medicines, foods, dyes, or preservatives or trying to get breast-feedingWhat should I watch for while using this medicine?Tell your doctor if your symptoms do not improve or if they get worse. If you have a high fever, skinrash, or headache, see your health memory care program director.You may get drowsy or dizzy. Do not drive, use machinery, or do anything that needs mentalalertness until you know how this medicine affects you. Do not sit or stand up quickly, especially ifyou are an older patient. This reduces the risk of dizzy or fainting spells. 8 General Instructions [facility] Emergency Department [address] [place] [address] Phone #: ext- [phone] 02/03/2020 00:33 Patient: CASSIDY VARGHESE Sex: M : 1940 Age: 79yNOTE:This sheet is a summary. It may not cover all possible information. If you have questions about this medicine, talk to your doctor, pharmacist, orhealth care provider. Copyright 2019 [employer] You have been given the following additional information: Bronchospasm (Adult) Bronchitis with Wheezing (Adult) Benzonatate capsules(Electronically signed by Darrel Sherman, 02/03/2020 06:06) Name Value Range Interpretation Code Description Data Keivn rce(s) Supporting Document(s) ID Date Data Source [id number] 02/03/2020 12:33:00 AM EDT [facility] 1 Clinical Report - Nurses [facility] Emergency Department [address] [place] [address] Phone #: ext- [phone] 02/03/2020 00:33 Patient: CASSIDY VARGHESE Sex: M : 1940 Age: 79yTRIAGE Arrived by EMS. Historian: patient. Triage time: 00:40 02/03/2020. Acuity: LEVEL 3. Chief Complaint: COUGH. Onset was gradual. Symptoms are constant and still present (2 months ago). ( becoming worse tonight with home Nebs ineffective). He has had chest congestion and difficulty breathing. 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 SEPSIS SCREEN: SIRS Screen negative. Sepsis Screen negative. No suspected or confirmed signs of infection present. --00:49 02/03/20 Luiz Skaggs RN 00:40 02/03/20. BP: 132/83 (regular adult cuff) taken on the right arm, via an automated monitor, while lying. MAP: 99. HR: 92 (regular, normal rate and strong). RR: 22 (regular, unlabored and normal). O2 s aturation: 94% on room air. Temp: 97.1 F (oral). Pain level now: 09/11. --00:49 02/03/20 Luiz Skaggs RN. Weight: 68.9 kg stated. Height/Length: 69 inches Per Patient. BMI: 22.4. --00:49 02/03/20 Luiz Skaggs RN. Medications Albuterol Sulfate Inhalation. Allopurinol Oral (Tablet 100 mg) 1 tablet, daily as needed. Aspir-81 Oral, daily. Calcium Acetate Oral 667 mg, 3x a day. Epogen Injection (Solution 71000 unit/mL), once a week. Heparin Sodium (Porcine) Injection (Solution 1000 unit/mL), once a week. Isosorbide Mononitrate ER Oral (Tablet Extended Release 24 Hour 60 mg) 1 tablet, daily. Metoprolol Succinate ER Oral (Tablet Extended Release 24 Hour 100 mg) 1 tablet, daily. Mupirocin External. Nortriptyline HCl Oral (Capsule 25 mg) 1 capsule, daily at bedtime. Omeprazole Oral 20 mg, daily. Paricalcitol Oral (Capsule 1 mcg) 3 caps, monthly. Percocet Oral (Tablet 5-325 mg) 1 tablet, 3x a day as needed. Potassium Chloride ER Oral (Tablet Extended Release 20 meq), daily. Renvela Oral (Tablet 800 mg) 1 tablet, 3x a day. Sensipar Oral (Tablet 60 mg), daily. Spiriva Respimat Inhalation, daily. 2 Clinical Report - Nurses [facility] Emergency Department [address] [place] [address] Phone #: ext- [phone] 02/03/2020 00:33 [id number] Sex: [facility] : 1940 Age: 79yUloric Oral 40 mg, daily. --00:43 02/03/20 Luiz Skaggs RN.AllergiesAmlodipine.Hydralazine.Indocin.Minoxidil.Mircera.Norvasc. --00:43 02/03/20 Luiz Skaggs RN.PROBLEMS:GI Disease.Hypokalemia.Hypertension.Acute Myocardial Infarction.Diabetes Mellitus.Lung Disease.Respiratory Failure.Renal Failure.Sepsis (disorder).Nephropathy.Pulmonary Edema.Prostate Cancer. --00:44 02/03/20 Luiz Skaggs RN.Medication/allergy information source: the patient. --00:49 02/03/20 Luiz Skaggs RN.HistorySOCIAL HX: Former smoker, end date 1969. No alcohol use or drug use. He was offered HIV testingbut declined and hepatitis C testing but declined. He has not traveled outside the [place]Infectious disease exposure: No infectious disease exposure.SELF HARM ASSESSMENT: Self harm assessment was performed. The patient answered "no" to thequestion(s) "Have you recently felt down, depressed, or hopeless?", "Do you have thoughts of harming orkilling yourself?", "Do you have a plan for harming or killing yourself?", "Have you recently had thoughtsabout harming or killing others?", "Do you have any dangerous items in your possession?", "Have younoticed less interest or pleasure in doing things?", "Are you here because you tried to hurt yourself?" and"Have you ever tried to hurt yourself before today?".ABUSE ASSESSM ENT: No report of abuse.FALL RISK ASSESSMENT: Fall risk assessment completed. No risk factors identified. --00:49 02/03/20yessi Skaggs RN.FAMILY HX:(non- contributory at his age). --01:28 02/03/20 Darrel Sherman. 3 Clinical Report - Nurses [facility] Emergency Department [address] [place] [address] Phone #: ext- [phone] 02/03/2020 00:33 Patient: CASSIDY VARGHESE Sex: M : 1940 Age: 79y Assessment The patient states feels the same. --00:49 02/03/20 Luiz Skaggs RN.PHYSICAL ASSESSMENT To room via stretcher. GENERAL / NEURO / PSYCH: Alert. Oriented X 4. Appears in distress. HEENT: Pupils equal, round and reactive to light. Ears within normal limits. Nares within normal limits. Hoarse voice. RESPIRATORY: Mild respiratory distress. The patient can speak in full sentences. Rhonchi bilaterally. Cough productive of moderate a katalina of clear sputum. CVS: Cardiac rhythm: normal sinus rhythm. Capillary refill less than 2 seconds. --00:51 02/03/20 Luiz Skaggs RN HEENT: Mucous membranes are pink. SKIN: Skin is warm and dry. Normal skin turgor. --00:51 02/03/20 Luiz Skaggs RN SKIN: ( BKA left). --00:54 02/03/20 Luiz Skaggs RN ( Home dialysis patient). --00:55 02/03/20 Luiz Skaggs RN.NURSING PROGRESS NOTES Cardiac rhythm: normal sinus rhythm; frequent unifocal PVCs. interface developer, NIBP monitor and pulse oximeter placed on patient; transitions manager rn- Lead II. EKG time: (00:47 02/03/2020). EKG was performed by a nurse and shown to the ED physician. Patient gowned. Head of bed elevated 30 degrees. Reassurance given to the patient. Call light placed in reach. Side rails up x 2. Bed placed in lowest position. Brakes of bed on. Patient ready for evaluation- ED physician notified. --00:52 02/03/20 Luiz Skaggs RN 01:32 02/03/2020 Duoneb Neb TX Nebulizer 1 unit dose given. Given by the nurse. Allergies verifie d and confirmed 5 rights. Information reviewed with patient including reason for taking this medication, signs of allergic reaction and precautions. Verbalizes understanding. --01:32 02/03/20 Luiz Skaggs RN 02:19 02/03/2020 Tessalon Perles (Benzonatate) PO Capsules 200 mg given. Allergies verified and confirmed 5 rights. Information reviewed with patient including reason for taking this medication, signs of allergic reaction and precautions. Verbalizes understanding. --02:19 02/03/20 Luiz Skaggs RN 02:32 02/03/2020 Dexamethasone PO Tablets 8 mg given. Allergies verified and confirmed 5 rights. Information reviewed with patient including reason for taking this medication, signs of allergic reaction and precautions. Verbalizes understanding. --02:32 02/03/20 Luiz Skaggs RN.DISPOSITION / DISCHARGE Olena Coma Scale: 15- eyes open- spontaneous (4); best verbal response- oriented (5); best motor response- obeys commands (6). Condition at departure: improved. No learning barriers present. 4 Clinical Report - Nurses [facility] Emergency Department [address] [place] [address] Phone #: ext- [phone] 02/03/2020 00:33 Patient: CASSIDY VARGHESE Sex: M : 1940 Age: 79y Discharge instructions provided and reviewed with the patient. Reviewed medication(s) side effects, precautions, dosing and course information. Prescription(s) sent electronically to pharmacy. Reviewed nebulizer use instructions. Reviewed referral to family practice for followup. Reviewed high potassium diet. Patient verbalized understanding. Written instructions provided in Urdu. The patient was discharged home and accompanied by fisher trawl line. He left in a wheelchair and via private vehicle. 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 --03:03 02/03/20 Luiz Skaggs RN 03:00 02/03/20. BP: 127/74 (regular adult cuff) taken on the right arm, via an automated monitor, while lying. MAP: 91. HR: 86 (regular, normal rate and strong). RR: 24 (regular, unlabored and normal). O2 saturation: 94% on room air. Temp: 98.2 F (oral). Pain level now: 08/11. --03:03 02/03/20 Luiz Skaggs RN Departure time: 03:04 02/03/2020. --03:04 02/03/20 Luiz Skaggs RN.Locked/Released at 02/03/2020 03:04 by Luiz Skaggs RN Name Value Range Interpretation Code Description Data Kevin rce(s) Supporting Document(s) ID Date Data Source [id number] 0001 02/03/2020 12:33:00 AM EDT [facility] 1 Clinical Report - Physicians/Mid Levels [facility] Emergency Department [address] [place] [address] Phone #: ext- [phone] 02/03/2020 00:33 [id number] Sex[facility] M : 1940 Age: 79y Time Seen: 01:11 02/03/2020. Arrived- By ambulance. Historian- patient.HISTORY OF PRESENT ILLNESS Chief Complaint: COUGH. This started 3 weeks and is still present. The illness is described as moderate. The patient has had sputum production and a cough. No difficulty breathing, chest discomfort or pain, fever or sore throat. No nasal congestion. (mostly dry cough for three weeks but no shortness of breath, chest pain or fever. Patient used albuterol at home without any improvement. Patient is reporting difficulty blowing "air out" His fiance reports cough for weeks.). Additional history - No known contact with a sick individual. Similar symptoms previously. Patient has had similar symptoms several times. Recent medical care: The patient was seen recently in the office.REVIEW OF SYSTEMSNo headache, vomiting, abdominal pain or pain or pedal edema. No enlarged lymph nodes, fatigue, fever,nasal congestion or mouth sores. No chest pain, diarrhea, vomiting, skin rash or numbness. Noextremity swelling. The patient has had a cough. All other systems reviewed and are negative.PAST HISTORYSee nurses notes. No history of chronic obstructive pulmonary disease. Problems: Hypertension. Acute Myocardial Infarction. Diabetes Mellitus. Renal Failure. Nephropathy. Pulmonary Edema. Prostate Cancer. Additional Surgeries: Bilateral Nephrectomy. Nephrectomy. Prostatectomy. Toe surgery. 2 Clinical Report - Physicians/Mid [facility] Emergency Department [address] [place] [address] Phone #: ext- [phone] 02/03/2020 00:33 Patient: CASSIDY VARGHESE Sex: M : 1940 Age: 79y Medications: Albuterol Sulfate Inhalation. Allopurinol Oral (Tablet 100 mg) 1 tablet, daily as needed. Aspir-81 Oral, daily. Calcium Acetate Oral 667 mg, 3x a day. Epogen Injection (Solution 31431 unit/mL), once a week. Heparin Sodium (Porcine) Injection (Solution 1000 unit/mL), once a week. Isosorbide Mononitrate ER Oral (Tablet Extended Release 24 Hour 60 mg) 1 tablet, daily. Metoprolol Succinate ER Oral (Tablet Extended Release 24 Hour 100 mg) 1 tablet, daily. Mupirocin External. Nortriptyline HCl Oral (Capsule 25 mg) 1 capsule, daily at bedtime. Omeprazole Oral 20 mg, daily. Paricalcitol Oral (Capsule 1 mcg) 3 caps, monthly. Percocet Oral (Tablet 5-325 mg) 1 tablet, 3x a day as needed. Potassium Chloride ER Oral (Tablet Extended Release 20 meq), daily. Renvela Oral (Tablet 800 mg) 1 tablet, 3x a day. Sensipar Oral (Tablet 60 mg), daily. Spiriva Respimat Inhalation, daily. Uloric Oral 40 mg, daily. Allergies: Amlodipine. Hydralazine. Indocin. Minoxidil. Mircera. Norvasc.SOCIAL HISTORYFormer smoker.FAMILY HISTORY(non-contributory at his age).ADDITIONAL NOTESThe nursing notes have been reviewed.PHYSICAL EXAMVital Signs: 02/03/2020 00:40 BP: lying 132/83. MAP: 99. HR: 92. RR: 22. O2 saturation: 94% on roomair. Temp: 97.1 F. Pain level now: 09/11.Appearance: Alert. No acute distress. (actively coughing).Eyes: Pupils equal, round and reactive to light. Eyes normal inspection.ENT: Ears normal. Nose normal. Pharynx normal. (voice is clear).Neck: Normal inspection. Neck supple. 3 Clinical Report - Physicians/Mid Levels [facility] Emergency Department [address] [place] [address] Phone #: ext- [phone] 02/03/2020 00:33 Patient: CASSIDY VARGHESE Sex: M : 1940 Age: 79y CVS: Normal heart rate and rhythm. Heart sounds normal. Pulses normal. Respiratory: No respiratory distress. Expiratory and inspiratory moderate bilateral wheezes present. Abdomen: Soft and nontender. Skin: Skin warm. Extremities: Extremities exhibit normal ROM. No lower extremity edema. (left B KA). Neuro: Oriented X 3. No motor deficit.LABS, X-RAYS, AND EKGEKG: EKG time: 00:44 02/03/2020. No acute ischemia. Rate: 100. Tachycardia. Ectopic beats.First-degree atrioventricular block. Q waves present. The QRS is not wide. Left axis deviation. NormalQT. T wave flattening in lead I and aVR. Interpretation time: 01:06 02/03/2020.Chest X-ray: Normal heart size. Mediastinum normal. No infiltrate. No pneumothorax or vascularcongestion. Views: AP (portable). The X-rays were independently viewed by me.Laboratory Tests: BNP: (MIKE: 02/03/2020 01:20) [place] [facility] [place] Final resul ts Test Result Flag Units (Reference) BNP 6626 H PG/ML (0 - 450) Troponin-T: (MIKE: 02/03/2020 01:20) ( [facility] [place]/03[place] 02:17) Final results Test Result Flag Units (Reference) TROPONIN T 0.09 NG/ML (0.00 - 0.10) TROPONIN T0.1 ng/ml Recommended as the clinical threshold value forTroponin T. CMP: (MIKE: 02/03/2020 01:20) ( [facility] [place]/03/[place] 02:17) Final results Test Result Flag Units (Reference) COMPREHENSIVE METABOLIC PANEL COMPREHENSIVE METABOLIC PANEL SODIUM 131 L mEq/L (134 - 153) POTASSIUM 4.1 mEq/L (3.6 - 5.0) CHLORIDE 90 L mEq/L (98 - 107) CO2 24 MEQ/L (22 - 30) GLUCOSE 105 MG/DL (65 - 110) BUN 35 H MG/DL (7 - 21) CREATININE 9.9 HH MG/DL (0.7 - 1.5) VERIFIED BY REPEAT CALL/ READ BACK CALLED TO DR SHERMAN BY: SIOBHAN DATE/TIME 02-03-20 BUN/CREAT 4 L (8 - 27) TOTAL PROTEIN 5.8 L G/DL (6.3 - 8.2) ALBUMIN 3.0 L G/DL (3.9 - 5.0) GLOBULIN 2.8 GM/DL (2.4 - 3.2) A/G RATIO 1.1 (0.8 - 2.0) CALCIUM 9.3 MG/DL (8.4 - 10.2) TOTAL BILI <0.7 MG/DL (0.2 - 1.3) ALKALINE PHOS 96 U/L (38 - 126) SGOT/AST 18 U/L (5 - 40) SGPT/ALT 18 U/L (7 - 56) ANION GAP 17.0 H mmol/L (8.0 - 16.0) AGE 79 yrs 4 Clinical Report - Physicians/Mid Levels [facility] Emergency Department [address] [place] [address] Phone #: ext- [phone] 02/03/2020 00:33 Patient: CASSIDY VARGHESE Sex: M : 1940 Age: 79y NON-AA GFR 5 mL/min AFR AMER GFR 7 mL/min Male GFR Interprentation 20-49 yrs >60 mL/min Normal 50-59 yrs >56 mL/min Normal 60-69 yrs >49 mL/min Normal 70-79yrs >42 mL/min Normal 80 and above >35 mL/min Normal Female GFR Interpretation 20-39 yrs >60 mL/min Normal 40-49 yrs >58 mL/min Normal 50-59 yrs >51 mL/min Normal 60-69 yrs >45 mL/min Normal 70-79 yrs >39 mL/min Normal 80 and above >32 mL/min Normal CBC w Diff: (MIKE: 02/03/2020 01:20) ( MsgRcvd 02/03/2020 02:17) Final results Test Result Flag Units (Reference) CBC W/AUTOMATED DIFF COMPLETE BLOOD COUNT WBC 8.1 10/uL (4.2 - 11.0) RBC 2.74 L 10/uL (4.50 - 6.30) HEMOGLOBIN 8.5 L g/dL (14.0 - 16.0) HEMATOCRIT 25.0 L % (41.0 - 51.0) MCV 91.2 fL (80.0 - 94.0) MCH 31.0 pg (27.0 - 34.0) MCHC 34.0 g/dL (31.0 - 36.0) RDW 15.6 H % (11.5 - 14.8) PLATELETS 193 10/uL (150 - 450) MPV 9.9 fL (7.4 - 10.4) NEUT 38.1 % (37.0 - 80.0) LYMPH 30.3 % (25.0 - 40.0) MONO 7.5 % (3.0 - 8.0) EOS 23.4 H % (0.0 - 7.0) BASO 0.5 % (0.0 - 2.0) %IG 0.2 H % (0.0 - 0.0) %NRBC 0.0 % (0.0 - 0.0) #NEUT 3.08 10/uL (2.00 - 6.90) #LYMPH 2.46 10/uL (0.60 - 3.40) #MONO 0.61 10/uL (0.00 - 0.90) #EOS 1.90 H 10/uL (0.00 - 0.70) #BASO 0.04 10/uL (0.00 - 0.20) #IG 0.02 10/uL (0.00 - 0.10) #NRBC 0.00 10/uL (0.00 - 0.00) MANUAL DIFF NOT INDICATED RBC MORPH NOT INDICATED.PROGRESS AND PROCEDURESCourse of Care: 02:19 02/03/20. After one Duoneb patient had less episodes of coughing. Possiblebronchospasm. Despite cough, patient able to talk without any conversational dyspnea. 02:44 02/03/20. Despite elevated BNP, no obvious signs of pulmonary edema. Potassium 4.1 no Hypoxia at room air. Differential Diagnosis: I considered viral bronchitis, viral pneumonia, bacterial tracheobronchitis and chronic bronchitis as a possible cause of cough in this patient. I considered chronic obstructive pulmonary disease, congestive heart failure and myocardial infarction as a possible cause of dyspnea in this patient. 5 Clinical Report - Physicians/Mid Levels [facility] Emergency Department [address] [place] [address] Phone #: ext- [phone] 02/03/2020 00:33 [id number] Sex[facility] M : 1940 Age: 79y Disposition: Discharged. Condition: stable.CLINICAL IMPRESSION Acute bronchospasm Reactive airway disease with acute bronchospasm and cough. Acute bronchitis.INSTRUCTIONS Warnings: GENERAL WARNINGS: Return or contact your physician immediately if your condition worsens or changes unexpectedly, if not improving as expected, or if other problems arise. Prescription Medications: Tessalon 200 mg: take 1 orally every 8 hours. Dispense fifteen (15). No refills. Follow-up: Follow up with your doctor in two if not better. Understanding of the discharge instructions verbalized.(Electronically signed by Darrel Sherman, 02/03/2020 06:06) Name Value Range Interpretation Code Description [facility] Supporting Document(s) ID Date Data Source [id number] 02/03/2020 01:57:00 [facility] Name Value Range Interpretation Code Description Data [facility] rce(s) Supporting Document(s) TROPONIN T 0.09 NG/ML 0.00 - 0.10 [facility] spital TROPONIN T0.1 ng/ml Recommended as the c linical threshold value forTroponin T. ID Date Data Source [id number] 02/03/2020 01:52:00 [facility] Name Value Range Interpretation Code Description Data [facility](s) Supporting Document(s) COMPREHENSIVE METABOLIC PANEL [facility] COMPREHENSIVE METABOLIC PANEL Sodium [Moles/volume] in Serum or Plasma 131 mEq/L 134 - 153 L [facility] Potassium [Moles/volume] in Serum or Plasma 4.1 mEq/L 3.6 - 5.0 [facility] Chloride [Moles/volume] in Serum or Plasma 90 mEq/L 98 - 107 L [facility] Carbon dioxide, total [Moles/volume] in Serum or Plasma 24 MEQ/L 22 - 30 [facility] Glucose [Mass/volume] in Serum or Plasma 105 MG/DL 65 - 110 [facility] BUN 35 MG/DL 7 - 21 [facility] Creatinine [Mass/volume] in Serum or Plasma 9.9 MG/DL 0.7 - 1.5 HH [facility] VERIFIED BY REPEAT CALL/ READ BACK CALLED TO DR SHERMAN [facility] BY: SIOBHAN [facility] al DATE/TIME 02-03-20 [facility] pital BUN/CREAT 4 8 - [address] [facility] al Protein [Mass/volume] in Serum or Plasma 5.8 G/DL 6.3 - 8.2 L [facility] Albumin [Mass/volume] in Serum or Plasma 3.0 G/DL 3.9 - 5.0 L [facility] Globulin [Mass/volume] in Serum by calculation 2.8 GM/DL 2.4 - 3.2 [facility] A/G RATIO 1.1 0.8 - 2.0 [facility] Calcium [Mass/volume] in Serum or Plasma 9.3 MG/DL 8.4 - 10.2 [facility] Bilirubin.total [Mass/volume] in Serum or Plasma <0.7 MG/DL 0.2 - 1.3 [facility] Alkaline phosphatase [Enzymatic activity/volume] in Serum or Plasma 96 U/L 38 - 126 [facility] Aspartate aminotransferase [Enzymatic activity/volume] in Serum or Plasma 18 U/L 5 - 40 [facility] Alanine aminotransferase [Enzymatic activity/volume] in Seru m or Plasma 18 U/L 7 - 56 [facility] Anion gap 3 in Serum or Plasma 17.0 mmol/L 8.0 - 16.0 H [facility] AGE [address] [facility] al NON-AA GFR 5 mL/min [facility] AFR AMER GFR 7 mL/min [facility] Male GFR In terprentation 20-49 yrs >60 mL/min Normal 50-59 yrs >56 mL/min Normal 60-69 yrs >49 mL/min Normal 70-79yrs >42 mL/min Normal 80 and above >35 mL/min Normal Female GFR Interpretation 20-39 yrs >60 mL/min Normal 40-49 yrs >58 mL/min Normal 50-59 yrs >51 mL/min Normal 60-69 yrs >45 mL/min Normal 70-79 yrs >39 mL/min Normal 80 and above >32 mL/min Normal ID Date Data Source [id number] 02/03/2020 01:52:00 [facility] Name Value Range Interpretation Code Description Data Kevin rce(s) Supporting Document(s) BNP 6626 PG/ML 0 - 450 H [facility] maribeth ID Date Data Source [id number] 02/03/2020 01:29:00 [facility] Name Value Range Interpretation Code Description Data Kevin rce(s) Supporting Document(s) CBC W/AUTOMATED DIFF [facility] COMPLETE BLOOD COUNT Leukocytes [#/volume] in Blood by Automated count 8.1 10^3/uL 4.2 - 1 1.0 [facility] Erythrocytes [#/volume] in Blood by Automated count 2.74 10^6/uL 4. 50 - 6.30 L [facility] Hemoglobin [Mass/volume] in Blood 8.5 g/dL 14.0 - 16.0 L [facility] Hematocrit [Volume Fraction] of Blood by Automated count 25.0 % 4 1.0 - 51.0 L [facility] Erythrocyte mean corpuscular volume [Entitic volume] by Auto mated count 91.2 fL 80.0 - 94.0 [facility] Erythrocyte mean corpuscular hemoglobin [Entitic mass] by Automated count 31.0 pg 27.0 - 34.0 [facility] Erythrocyte mean corpuscular hemoglobin concentration [Mass/volume] by Automated count 34.0 g/dL 31.0 - 36.0 [facility] Erythrocyte distribution width [Ratio] by Automated count 15.6 % 11.5 - 14.8 H [facility] Platelets [#/volume] in Blood by Automated count 193 10^3/uL 150 - 45 0 [facility] Platelet mean volume [Entitic volume] in Blood by Automated count 9.9 fL 7.4 - 10.4 [facility] Neutrophils/100 leukocytes in Blood by Automated count 38.1 % 37. 0 - 80.0 [facility] Lymphocytes/100 leukocytes in Blood by Manual count 30.3 % 25.0 - 40.0 [facility] Monocytes/100 leukocytes in Blood by Automated count 7.5 % 3.0 - 8.0 [facility] Eosinophils/100 leukocytes in Blood by Automated count 23.4 % 0.0 - 7.0 H [facility] Basophils/100 leukocytes in Blood by Automated count 0.5 % 0.0 - 2.0 [facility] %IG 0.2 % 0.0 - 0.0 H [facility] al %NRBC 0.0 % 0.0 - 0.0 [facility] Neutrophils [#/volume] in Blood by Automated count 3.08 10^3/uL 2.00 - 6.90 [facility] Lymphocytes [#/volume] in Blood by Automated count 2.46 10^3/uL 0.60 - 3.40 [facility] Monocytes [#/volume] in Blood by Automated count 0.61 10^3/uL 0.00 - 0.90 [facility] Eosinophils [#/volume] in Blood by Automated count 1.90 10^3/uL 0.00 - 0.70 H [facility] Basophils [#/volume] in Blood by Automated count 0.04 10^3/uL 0.00 - 0.20 [facility] #IG 0.02 10^3/uL 0.00 - 0.10 [facility] #NRBC 0.00 10^3/uL 0.00 - 0.00 [facility] MANUAL DIFF NOT INDICATED [facility] RBC MORPH NOT INDICATED [facility] spital ID Date Data Source [id number] 09/14/2019 11:17:00 AM EDT [facility] ([facility], ) Name Value Range Interpretation Code Description Data Kevin rce(s) Supporting Document(s) Blood Urea Nitrogen 33 mg/dL 7-18 Above high normal [facility] ([facility], ) Glucose, Fasting 99 mg/dL 70-100 Normal (applies to non-numeric results) [facility] ([facility], ) Glomerular Filtration Rate 6.6 Below low normal [facility] ([facility], ) <content>Units are mL/min/1.73 m2</content>
<content></content>
<content>Chronic Kidney Disease Staging per NKF:</content>
<content></content>
<content>Stage I & II GFR >=60 Normal to Mildly Decreased</content>
<content>Stage III GFR 30- 59 Moderately Decreased</content>
<content>Stage IV GFR 15-29 Severely Decreased</content>
<content>Stage V GFR <15 Very Little GFR Left</content>
<content>ESRD GFR <15 on INTERIOR MECHANIC</content>
<content></content> Creatinine For GFR 9.94 mg/dL 0.70-1.30 Above upper panic limits [facility] Potassium Serum 3.5 meq/L 3.5-5.1 Normal (applies to non-numeric results) [facility] ([facility]) Chloride Level 95 meq/L 98-107 Below low normal [facility] ([facility]) Sodium Level 133 meq/L 136-[address] [facility] ([facility]) Carbon Dioxide Level 26 meq/L 21-32 Normal (applies to non-num romel results) [facility] ([facility]) Anion Gap 12 meq/L 8-16 Normal (applies to non-numeric resul ts) [facility] ([facility]) Calcium Level 9.1 mg/dL 8.8-10.2 Normal (applies to non-numeric re sults) [facility] ([facility]) ID Date Data Source [id number] 09/14/2019 11:17:00 AM EDT [facility]) Name Value Range Interpretation Code Description Data Kevin rce(s) Supporting Document(s) Blood Type Laboratory test result Normal (applies to non-n umeric results) [facility] ([facility]) Blood group antibody screen [Presence] in Serum or Wendie sma Laboratory test result Normal (applies to non-numeric results) [facility] ([facility]) ID Date Data Source [id number] 09/14/2019 11:17:[address] [facility] ([facility]) Name Value Range Interpretation Code Description Data Kevin rce(s) Supporting Document(s) Prothrombin Time 14.2 s 11.8-14.0 Above high normal [facility] ([facility]) Inr 1.13 Normal (applies to non-numeric resul ts) [facility] ([facility]) THERAPUTIC HUMAN INR VALUES INDICATIONS NORMAL RANGES PROPHYLAXIS/TREATMENT OF: VENOUS THROMBOSIS 2.0-3.0 PULMONARY EMBOLISM 2.0-3.0 PREVENTION OF SYSTEMIC EMBOLISM FROM: TISSUE HEART VALVES 2.0-3.0 ACUTE MYOCARDIAL INFARCTION 2.0-3.0 VALVULAR HEART DISEASE 2.0-3.0 ATRIAL FIBRILLATION 2.0-3.0 MECHANICAL VALVES(HIGH RISK) 2.5-3.5 RECURRENT MYOCARDIAL INFARCTION 2.5-3.5 Partial Thromboplastin Time 38.5 s 25.0-38.[address] [facility] ([facility]) ID Date Data Source [id number] 09/14/2019 11:17:[address] [facility] ([facility]) Name Value Range Interpretation Code Description Data Kevin rce(s) Supporting Document(s) White Blood Count 8.9 10 4.0-10.0 Normal (applies to non-numeri c results) [facility] ([facility]) Red Blood Count 3.62 10 4.30-6.10 Below low normal [facility] ([facility]) Hematocrit 34.2 % 42.0-52.[address] [facility] ( [facility]) Hemoglobin 11.7 g/dL 13.5-17.[address] [facility] ( [facility]) Mean Corpuscular Hemoglobin 32.3 pg 27.0-33.0 Norm al (applies to non-numeric results) [facility] ([facility]) Mean Corpuscular Volume 94.5 fl 80.0-96.0 Normal ( applies to non-numeric results) [facility]) Mean Corpuscular HGB Conc 34.2 g/dL 32.0-36.5 Normal (applies to non-numeric results) [facility]) Red Cell Distribution Width 15.4 % 11.5-14.5 Above high normal [facility]) Nucleated Red Blood Cell % 0.0 % 0-0 Normal (applies to n on-numeric results) [facility] ([facility]) Platelet Count, Automated 304 10 150-450 Normal (applies to non-numeric results) [facility]) ID Date Data Source [id number] 09/11/2019 11:00:00 AM EDT [facility] Name Value Range Interpretation Code Description Data Kevin rce(s) Supporting Document(s) SARS CORONAVIRUS 2 RNA [facility] This lab was ordered by [facility] and reported by [facility]. ID Date Data Source [id number] 09/05/2019 09:00:00 AM EDT [facility] ([facility]) Name Value Range Interpretation Code Description Data Kevin rce(s) Supporting Document(s) Glucose, Fasting 109 mg/dL 70-100 Above high normal [facility] Creatinine For GFR 9.61 mg/dL 0.70-1.30 Above upper panic limits [facility]) Blood Urea Nitrogen 33 mg/dL 7-18 Above high normal [facility] ([facility]) Glomerular Filtration Rate 5.7 Below low normal [facility] ([facility]) <content>Units are mL/min/1.73 m2</content>
<content></content>
<content>Chronic Kidney Disease Staging per NKF:</content>
<content></content>
<content>Stage I & II GFR >=60 Normal to Mildly Decreased</content>
<content>Stage III GFR 30- 59 Moderately Decreased</content>
<content>Stage IV GFR 15-29 Severely Decreased</content>
<content>Stage V GFR <15 Very Little GFR Left</content>
<content>ESRD GFR <15 on INTERIOR MECHANIC</content>
<content></content> Sodium Level 134 meq/L 136-145 Below low normal [facility] ([facility]) Chloride Level 94 meq/L 98-107 Below low normal [facility] ([facility]) Potassium Serum 3.5 meq/L 3.5-5.1 Normal (applies to non-numeric results) [facility] ([facility]) Carbon Dioxide Level 29 meq/L 21-32 Normal (applies to non-num romel results) [facility] ([facility]) Anion Gap 11 meq/L 8-16 Normal (applies to non-numeric resul ts) [facility] ([facility]) Calcium Level 9.3 mg/dL 8.8-10.2 Normal (applies to non-numeric re sults) [facility]) ID Date Data Source [id number] 09/05/2019 09:00:[address] [facility] ([facility]) Name Value Range Interpretation Code Description Data Kevin rce(s) Supporting Document(s) White Blood Count 9.2 10 4.0-10.0 Normal (applies to non-numeri c results) [facility] ([facility]) Red Blood Count 3.57 10 4.30-6.10 Below low normal [facility] ([facility]) Mean Corpuscular Volume 94.7 fl 80.0-96.0 Normal ( applies to non-numeric results) [facility] ([facility]) Hematocrit 33.8 % 42.0-52.[address] [facility] ( [facility]) Hemoglobin 11.4 g/dL 13.5-17.[address] [facility] ( [facility]) Mean Corpuscular HGB Conc 33.7 g/dL 32.0-36.5 Normal (applies to non-numeric results) [facility] ([facility]) Red Cell Distribution Width 16.3 % 11.5-14.5 Above high normal [facility]) Mean Corpuscular Hemoglobin 31.9 pg 27.0-33.0 Norm al (applies to non-numeric results) [facility] ([facility]) Platelet Count, Automated 253 10 150-450 Normal (applies to non-numeric results) [facility]) Nucleated Red Blood Cell % 0.0 % 0-0 Normal (applies to n on-numeric results) [facility]) ID Date Data Source [id number] 08/16/2019 03:50:00 PM EDT [facility]) Name Value Range Interpretation Code Description Data Kevin rce(s) Supporting Document(s) Iron 101 [facility] Iron binding capacity [Mass/volume] in Serum or Plasma 229 [facility] ([facility]) Tibc % Saturation [address] [facility] ID Date Data Source [id number] 08/16/2019 03:50:00 PM EDT [facility] ([facility]) Name Value Range Interpretation Code Description Data Kevin rce(s) Supporting Document(s) Albumin [Mass/volume] in Serum or Plasma 3.6 [facility] ([facility]) Alanine aminotransferase [Enzymatic activity/volume] i n Serum or Plasma Laboratory test result [facility] ([facility]) Carbon dioxide, total [Moles/volume] in Serum or Plasma 27 [facility] ([facility]) Calcium [Mass/volume] in Serum or Plasma 10.7 [facility] ([facility]) Chloride [Moles/volume] in Serum or Plasma 92 [facility] ([facility]) Protein [Mass/volume] in Serum or Plasma 6.3 [facility] ([facility]) Potassium [Moles/volume] in Serum or Plasma 3.0 [facility] ([facility]) Alkaline phosphatase [Enzymatic activity/volume] in Se rum or Plasma Laboratory test result [facility] ([employer] [facility]) Urea nitrogen [Mass/volume] in Serum or Plasma 32 [facility] ([facility]) Sodium 136 [facility]) Glucose Laboratory test result [facility] ([facility]) Aspartate aminotransferase [Enzymatic activity/volume] in Serum or Plasma Laboratory test result [facility] ([facility]) Creatinine For GFR 9.48 [facility] ([facility]) ID Date Data Source [id number] 08/16/2019 03:50:00 PM EDT [facility] ([facility]) Name Value Range Interpretation Code Description Data Kevin rce(s) Supporting Document(s) White Blood Count 8.97 [facility] ([facility]) Hemoglobin 11.8 [facility]) Red Blood Count 3.78 [facility] Platelets 263 [facility] Hematocrit 36.2 [facility] ([facility]) ID Date Data Source [id number] 08/08/2019 11:09:00 AM EDT [facility] ([facility]) Name Value Range Interpretation Code Description Data Kevin rce(s) Supporting Document(s) Hemoglobin A1c/Hemoglobin.total in Blood 7.1 [facility] ([facility]) ID Date Data Source [id number] 07/31/2019 11:08:00 AM EDT [facility] Name Value Range Interpretation Code Description Data Kevin rce(s) Supporting Document(s) Magnesium Level 2.0 1.8-2.4 [facility] ([facility]) ID Date Data Source [id number] 07/31/2019 11:08:00 AM EDT [facility] ([facility]) Name Value Range Interpretation Code Description Data Kevin rce(s) Supporting Document(s) White Blood Count 10.7 4.0-10.0 [facility] Hemoglobin 9.5 [facility] ([facility]) Red Blood Count 2.98 4.30-6.10 [facility] ([facility]) Platelets 253 150-450 [facility] Hematocrit 27.5 [facility] ([facility]) ID Date Data Source [id number] 07/31/2019 11:08:00 AM EDT [facility] Name Value Range Interpretation Code Description Data Kevin rce(s) Supporting Document(s) Glucose 123 70-100 [facility] Blood Urea Nitrogen 41 7-18 [facility] ([facility] Sodium 138 136-145 [facility] Creatinine 9.88 0.70-1.30 [facility] ([facility]) Potassium 4.5 3.5-5.1 [facility] Chloride 102 98-107 [facility] Carbon Dioxide 26 21-32 [facility] ([facility]) Calcium 9.6 8.8-10.2 [facility] Glomerular filtration rate/1.73 sq M.pre dicted [Volume Rate/Area] in Serum or Plasma by Creatinine-based formula (MDRD) 5.5 [facility] ([facility]) ID Date Data Source [id number] 07/30/2019 11:39:00 [place] [address] PHONE: [phone] FAX: [phone] Name .................. : ABIMAEL Fair Acct Number.................. : [id number] ROOM. ................. : TR-08 Number ................... : [id number] Stay type ............. : E/R Discharge Date......... ... : 07/26/19 Admit Date ....... .. : 07/26/19 Admit Phys .................... : ELIDA DE OLIVEIRA Date of ....... : 1940 Family Phys ................... : UNKNOWN Phone .................. : [phone] Age ................................ : 79 Film# .................. .:[id number] Sex ................................. : M Unsigned transcriptions are preliminary reports and do not represent a medical or legal document CT ABD & P[place] [id number] COMPLETE:07/26/19 17:42 EB [id number] Reason(s): Abdominal Distention CT ABDOMEN/PELVIS WITHOUT CONTRAST, 07/26/19: Comparison is made to 05/01/19. FINDINGS: The liver, spleen, pancreas, and right adrenal appear unremarkable. The left adrenal gland appears mildly hyperplastic, but stable. The kidneys are not clearly seen and are likely severely atrophic, which was the case also on the previous study. There is some mild sludge in the gallbladder. The gallbla dder is moderately distended. No definite gallbladder calculi are seen. There is no bowel dilatation or evidence of obstruction. There is a peritoneal dialysis catheter present. The distal aspect of the catheter is coiled in the pelvis as before. A moderate amount of free fluid is seen in the abdomen and pelvis, and has decreased comparing to the previous study, consistent with a peritoneal dialysis. A small fat-containing umbilical hernia is present. The appendix is normal size without any adjacent inflammation to suggest appendicitis. There are no signs of diverticulitis. No pneumoperitoneum or lymphadenopathy is seen. The urinary bladder is unremarkable. There is a surgical clip or possibly radiation implant seed seen at the prostate. There are surgical clips at the left inguinal region. There is a small to moderate of amount of fluid at the left inguinal canal, which was seen previously. There is a small fat-containing left inguinal hernia. Severe calcified plaque is present within the aorta without focal aneurysm. No suspicious osseous lesion or acute fracture is seen. The pancreas appears unremarkable. No peripancreatic inflammation is seen. IMPRESSION: Peritoneal dialysis catheter seen in pelvis as before. Decreased moderate amount of free fluid. Small fat-containing umbilical hernia. Small left inguinal hernia containing fat and a small to moderate amount of fluid. 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 Mild gallbladder sludge. No definite gallbladder calculi. Moderate distention of the gallbladder. While performing the above CT examination, radiation dose reduction was accomplished utilizing automated exposure control, adjusting of the mA and kV based on the patient's body size and/or the use of imperative reconstructive techniques. Page 1 of 2 [facility] [address] [place] [address] PHONE: [phone] FAX: [phone] Name .................. : ABIMAEL CASSIDY W Acct Number.................. : [id number] ROOM. ................. : [facility] MR Number ................... : [id number] Stay type ............. : E/R Discharge Date......... ... : 07/26/19 Admit Date ......... : 07/26/19 Admit Phys .................... : ELIDA DE OLIVEIRA Date of ....... : 1940 Family Phys ................... : UNKNOWN Phone .................. : [phone] Age ................................ : 79 Film# .................. .:[id number] Sex ................................. : M Unsigned transcriptions are preliminary reports and do not represent a medical or legal document CT ABD & PEL[place] [id number] COMPLETE:07/26/19 17:42 EB [id number] Reason(s): Abdominal Distention CT dose 854.4 mGycm. Electronically Reviewed and Signed By Agapito Alvarez MD , 07/30/19 11:39, TDS Transcribe Initials: SSR, Transcribe Date: 07/27/19 07:43, Dictation Date: Copy for: EMERGENCY DEPT via modem Copy for: 710 MED REC DISCHARGED Page 2 of 2 Name Value Range Interpretation Code Description Data Kevin rce(s) Supporting Document(s) ID Date Data Source [id number] 07/30/2019 11:39:00 AM EDT [facility] [address] [place] [address] PHONE: [phone] FAX: [phone] Name .................. : ABIMAEL Fair Acct Number.................. : [id number] ROOM. ................. : TR-08 MR Number ................... : [id number] Stay type ............. : E/R Discharge Date......... ... : 07/26/19 Admit Date ....... .. : 07/26/19 Admit Phys .................... : ELIDA DE OLIVEIRA Date of ....... : 1940 Family Phys ................... : UNKNOWN Phone .................. : [phone] Age ................................ : 79 Film# .................. .:[id number] Sex ................................. : M Unsigned transcriptions are preliminary reports and do not represent a medical or legal document CT THORAX W/O CONTRAST [id number] COMPLETE:07/26/19 17:42 EB [id number] Reason(s): Shortness of Breath CT CHEST WITHOUT CONTRAST, 07/26/19: Comparison is made to 05/01/19. FINDINGS: The heart size is within normal limits. No pericardial effusion is seen. Severe calcified plaque is present in the coronary arterial system. There is moderate to severe calcified plaque present within the thoracic aorta without focal aneurysm. There is a mildly enlarged precoronal node measuring about 1.1 cm, which is stable with a normal appearing fatty hilum. There is mild atelectasis/scar bilateral lung bases, similar to the previous study. There is mild bronchiectasis noted at bilateral upper and lower lobes, and at the right middle lobe, which is stable. No pleural effusion or pneumothorax is seen. No masses are seen. There are two stable non-calcified nodules at the right upper lobe with one on image 22 measuring 0.2 cm and one on image 24 measuring 0.3 cm. No suspicious osseous lesion or acute fracture is seen. Severe spurring is present at the thoracolumbar spine. There is stable moderate to severe left and moderate right- sided gynecomastia. A stable small 0.8 cm hypodense nodule is seen at the right lobe of the thyroid. There is a stable cyst or nodule with peripheral calcification at the mid left lobe of the thyroid measuring about 0.8 cm. IMPRESSION: Severe calcified plaque in coronary arteries. Stable bilateral gynecomastia. Mild atelectasis/scar bilateral lung bases. Two stable subcentimet er non-calcified nodules at right upper lobe. Suggest follow up CT scan in six months. Stable nodules at the thyroid. Further evaluation may be made with thyroid ultrasound. Otherwise, no acute findings. While performing the above CT examination, radiation dose reduction was accomplished utilizing automated exposure control, adjusting of the mA and kV based on the patient's body size and/or the use of imperative reconstructive techniques. CT dose 854.4 mGycm. Page 1 of 2 [facility] [address] [place] [address] PHONE: [phone] FAX: [phone] Name .................. : ABIMAEL CASSIDY Manjula Acct Number.................. : [id number] ROOM. ................. : TR-08 MR Number ................... : [id number] Stay type ............. : E/R Discharge Date......... ... : 07/26/19 Admit Date ......... : 07/26/19 Admit Phys .................... : ELIDA YENNIFER Date of ....... : 1940 Family Phys ................... : UNKNOWN Phone .................. : [phone] Age ................................ : 79 Film# .................. .:[id number] Sex ................................. : M Unsigned transcriptions are preliminary reports and do not represent a medical or legal document CT THORAX W/O CONTRAST [id number] COMPLETE:07/26/19 17:42 EB 28084 Reason(s): Shortness of Breath Electronically Reviewed and Signed By Agapito Alvarez MD , 07/30/19 11:39, TDS Transcribe Initials: SSR, Transcribe Date: 07/27/19 07:32, Dictation Date: Copy for: EMERGENCY DEPT via modem Copy for: 710 MED REC DISCHARGED Page 2 of 2 Name Value Range Interpretation Code Description Data Kevin rce(s) Supporting Document(s) ID Date Data Source [id number] 07/30/2019 11:39:00 AM EDT [facility] [address] [place] [address] PHONE: [phone] FAX: [phone] Name .................. : ABIMAEL Fair Acct Number.................. : [id number] ROOM. ................. : [facility] MR Number ................... : [id number] Stay type ............. : E/R Discharge Date......... ... : 07/26/19 Admit Date ....... .. : 07/26/19 Admit Phys .................... : ELIDA DE OLIVEIRA Date of ....... : 1940 Family Phys ................... : UNKNOWN Phone .................. : [phone] Age ................................ : 79 Film# .................. .:[id number] Sex ................................. : M Unsigned transcriptions are preliminary reports and do not represent a medical or legal document CT HEAD W/O CONTRAST [id number] COMPLETE:07/26/19 17:42 EB [id number] Reason(s): Altered Mental Status CT HEAD WITHOUT CONTRAST, 07/26/19: Comparison was made to 05/01/19. FINDINGS: There is a stable small punctate area of calcification posteriorly at the right parietal lobe. Otherwise, there is no mass, mass effect, midline shift, extra- axilla fluid collection, or intracranial hemorrhage. The ventricles are normal size and configuration for the patient's age. The orbits are unremarkable along with the visualized paranasal sinuses. No suspicious osseous lesion or acute fracture is identified. IMPRESSION: Stable small punctate calcification of the posterior right parietal lobe. Otherwise, unremarkable CT head. While performing the above CT examination, radiation dose reduction was accomplished utilizing automated exposure control, adjusting of the mA and kV based on the patient's body size and/or the use of imperative reconstructive techniques. CT dose 866.9 mGycm. Electronically Reviewed and Signed By Agapito Alvarez MD , 07/30/19 11:39, TDS Transcribe Initials: SSR, Transcribe Date: 07/27/19 07:28, Dictation Date: Copy for: EMERGENCY DEPT via modem Copy for: 710 MED REC Page 1 of 2 [facility] [address] [place] [address] PHONE: [phone] FAX: [phone] Name .................. : ABIMAEL Fair Acct Number.................. : [id number] ROOM. ................. : TR-08 Number ................... : [id number] Stay type ............. : E/R Discharge Date......... ... : 07/26/19 Admit Date ......... : 07/26/19 Admit Phys .................... : ELIDA DE OLIVEIRA Date of ....... : 1940 Family Phys ................... : UNKNOWN Phone .................. : [phone] Age ................................ : 79 Film# .................. .:[id number] Sex ................................. : M Unsigned transcriptions are preliminary reports and do not represent a medical or legal document CT HEAD W/O CONTRAST [id number] COMPLETE:07/26/19 17:42 EB [address]29 Reason(s): Altered Mental Status DISCHARGED Page 2 of 2 Name Value Range Interpretation Code Description Data Kevin rce(s) Supporting Document(s) ID Date Data Source [id number] 07/30/2019 11:37:00 AM EDT [facility] [address] [place] [address] PHONE: [phone] FAX: [phone] Name .................. : ABIMAEL Fair Acct Number.................. : [id number] ROOM. ................. : TR-08 Number ................... : [id number] Stay type ............. : E/R Discharge Date......... ... : Admit Date ......... : 07/26/19 Admit Phys .................... : ELIDA DE OLIVEIRA Date of ....... : 1940 Family Phys ................... : UNKNOWN Phone .................. : [phone] Age ................................ : 79 Film# .................. .:[id number] Sex ................................. : M Unsigned transcriptions are preliminary reports and do not represent a medical or legal document CHEST PORTABLE 52551 COMPLETE:07/26/19 12:35 SRG 93735 Reason(s): Shortness of Breath SINGLE VIEW OF THE CHEST, 07/26/19: Comparison was made to 05/01/19. FINDINGS: The cardiac and mediastinal silhouettes appear normal and the lungs are clear. The bones and soft tissues are normal. The upper abdomen is unremarkable. IMPRESSION: No acute disease identifiable. Electronically Reviewed and Signed By Agapito Alvarez MD , 07/30/19 11:37, TDS Transcribe Initials: SSR, Transcribe Date: 07/26/19 13:56, Dictation Date: Copy for: EMERGENCY DEPT via modem Copy for: 710 MED REC DISCHARGED Page 1 of 1 Name Value Range Interpretation Code Description Data Kevni rce(s) Supporting Document(s) ID Date Data Source [id number] 07/27/2019 12:56:00 [place] [address] RESPIRATORY CARE REPORT ==== ---------NAME------- NUMBER SEX AGE ADMIT DISC. XRAY# F/C TYPEGROCE CASSIDY Fair [id number] M 79 07/26/19 07/26/19 [id number] MB4 E/R DATE OF : 1940 M/R# [id number] #: [id number] TR-08 LOCATION: EMERGENCY DEPT EKG 26961 COMPLE TE:07/26/19 21:33 [place] [address]168 PHYSICIAN: ELIDA DE OLIVEIRA Name Value Range Interpretation Code Description Data Kevin rce(s) Supporting Document(s) ID Date Data Source [id number] 07/26/2019 10:28:00 AM EDT [facility] 1 OrderSheet [facility] Emergency Department [address] [place] [address] Phone #: [phone] 07/26/2019 10:24 Patient: CASSIDY VARGHESE Sex: M : 1940 Age: 79yWEIGHT:66.6 kg HEIGHT:66 inches BMI:23.7ALLERGIES: Amlodipine, Hydralazine, Indocin, Minoxidil, Mircera, NorvascCHIEF COMPLAINT: dyspneaDIAGNOSIS: Problem, Systemic infection, Acute myocardial infarction, Hypokalemia, Renal failure syndromeLAB ORDERSOrder Description Priority Entered Acknowledged InitialedABG STAT 10:36 07/26/2019 Initialed: 10:45 Omar Estevez R.N. Cancelled: Physician Order 20:11 Merritt Salhe; Elida PhysicianUrinalysis (Clean STAT 10:36 07/26/2019 Initialed: 10:45 Omar Estevez R.N.Catch) Merritt Marrero Cancelled: Physician Order 20:11 Merritt Saleh; Elida PhysicianTroponin-T STAT 10:36 07/26/2019 10:45 Merritt Estevez R.N. Physician;BNP STAT 10:36 07/26/2019 10:45 Merritt Estevez R.N. Physician;Blood Culture STAT 10:36 07/26/2019 10:45 Herbq10m X2 (Sched Merritt Conde R.N.10:36 07/26/2019) Physician;Blood Culture STAT 10:36 07/26/2019 12:00 [id number] X2 (Sched Merritt Marrero leather stretcherChacho ER10:46 07/26/2019) Physician; [id number] STAT 10:36 07/26/2019 10:45 Merritt Estevez R.N. Physician;CBC w Diff STAT 10:36 07/26/2019 10:45 Merritt Estevez R.N. Physician;CPK STAT 10:36 07/26/2019 10:45 Merritt Estevez R.N. Physician;D-Dimer STAT 10:36 07/26/2019 10:45 Merritt Estevez R.N. Physician;Lactic Acid STAT 10:36 07/26/2019 10:45 Bev Estevez OrderSheet [facility] Emergency Department [address] [place] [address] Phone #: [phone] 07/26/2019 10:24 Patient: CASSIDY VARGHESE Sex: M : 1940 Age: 79y Merritt Conde R.N. Physician;Lipase STAT 10:36 07/26/2019 10:45 Merritt Estevez R.N. Physician;PTT STAT 10:36 07/26/2019 10:45 Merritt Estevez R.N. Physician;PT/INR STAT 10:36 07/26/2019 10:45 Merritt Estevez R.N. Physician;DIAGNOSTIC STUDY ORDERSOrder Description Priority Entered Acknowledged InitialedChest Portable 1 STAT 10:36 07/26/2019 10:45 Kyung Estevez (Oxygen? Merritt Conde R.N.(Yes)) Physician; NOTES: Hypoxia Reason for Study: Shortness of BreathCT ABD PEL W/O STAT 13:14 07/26/2019 13:24 HerbOral W/O IV Merritt Conde R.N.Contrast Physician;(Oxygen?(No ))(IV?(Yes)) NOTES: Lipase elevated / Does CAPD Reason for Study: Abdominal DistentionCT Chest W/O Cont STAT 13:16 07/26/2019 13:24 Herb(Oxygen?(No)) Merritt Conde R.N. Physician; NOTES: Hypoxia Reason for Study: Shortness of BreathCT Head W/O Cont STAT 13:16 07/26/2019 13:24 Herb,(Oxygen?(No)) Merritt Conde R.N. Physician; Reason for Study: Altered Mental StatusMEDICATION/IV/DRIP/FLUID ORDERSOrder Description Priority Entered Acknowledged InitialedNS IV : Bolus 500 10:40 07/26/2019 11:06 Bobby Estevez, then 125 mL/hr Merritt Conde R.N.(can be titrated per Physician;additionalphysician 3 OrderSheet [facility] Emergency Department [address] [place] [address] Phone #: ext- [phone] 07/26/2019 10:24 Patient: CASSIDY VARGHESE Sex: M : 1940 Age: 79yinstruction)NS IV 1000 mL 13:24 07/26/2019 13:26 Herb,Bolus: : Bolus 1000 Merritt Conde R.N.mL (X1) Physician;GENERAL ORDERSOrder Description Priority Entered Acknowledged InitialedCardiac Monitor 10:39 07/26/2019 10:44 Stephen(continuous) Merritt Marrero leather stretcher, [facility] ER Physician; [id number] 10:39 07/26/2019 10:44 [facility]; [id number] oximeter 10:39 07/26/2019 10:44 Stephen(Continuous) Merritt Marrero [facility]; [id number] Lock 10:39 07/26/2019 10:45 Merritt Estevez R.N. Physician;Transfer: (Transfer 14:57 07/26/2019 15:03 Herbto [facility] by Merritt Conde R.N.ambulance as per Physician;Dr. Cabrera(Acceptinghospitalist) - 13: )[Electronically signed by Merritt Marrero Physician (07:40 07/27/2019)][Electronically signed by Garo Suárez R.N. (12:51 07/27/2019)][Electronically locked by Garo Suárez R.N. (12:51 07/27/2019)] Name Value Range Interpretation Code Description Data Kevin rce(s) Supporting Document(s) ID Date Data Source [id number] 07/26/2019 10:28:00 AM EDT [facility] 1 Medication Reconciliation Report [facility] Emergency Department [address] [place] [address] Phone #: ext- [phone] 07/26/2019 10:24 Patient: CASSIDY VARGHESE Sex: M : 1940 Age: 79yWeight: 66.6 kgHeight/Length: 66 in.BMI: 23.7ALLERGIES: Amlodipine, Hydralazine, Indocin, Minoxidil, Mircera, NorvascThe patient's Home Medications are listed below:THE FOLLOWING MEDICATIONS NEED TO BE RECONCILED: Albuterol Sulfate Inhalation Allopurinol Oral (100 mg) 1 tablet, daily, prn Aspir-81 Oral, daily Calcium Acetate Oral 667 mg, 3x a day Epogen Injection (05193 unit/mL), once a week Heparin Sodium (Porcine) Injection (1000 unit/mL), once a week Isosorbide Mononitrate ER Oral (60 mg) 1 tablet, daily Metoprolol Succinate ER Oral (100 mg) 1 tablet, daily Mupirocin External Nortriptyline HCl Oral (25 mg) 1 capsule, daily, at bedtime Omeprazole Oral 20 mg, daily Paricalcitol Oral (1 mcg) 3 caps, monthly Percocet Oral (5-325 mg) 1 tablet, 3x a day, prn Potassium Chloride ER Oral (20 meq), daily Renvela Oral (800 mg) 1 tablet, 3x a day 2 Medication Reconciliation Report [facility] Emergency Department [address] [place] [address] Phone #: ext- [phone] 07/26/2019 10:24 Patient: CASSIDY VARGHESE Sex: M : 1940 Age: 79y Sensipar Oral (60 mg), daily Spiriva Respimat Inhalation, daily Uloric Oral 40 mg, dailyThe source(s) of the original Home Medication information:Not obtained.The following Medications were given to the patient in the Emergency Department:NS [IV] IV Fluids bolus 500 mL wide open, then 125 mL/hr, administ ered: 07/26/2019 11:00:00 AMNS [IV] IV Fluids bolus 1000 mL wide open, administered: 07/26/2019 1:26:00 PMThe following Medications were prescribed to the patient:None. Name Value Range Interpretation Code Description Data Kevin rce(s) Supporting Document(s) ID Date Data Source [id number] 07/26/2019 10:28:00 AM EDT [facility] 1 Medication Administration Record [facility] Emergency Department [address] [place] [address] Phone #: ext- [phone] 07/26/2019 10:24 Patient: CASSIDY VARGHESE Sex: M : 1940 Age: 79yWeight: 66.6 kgHeight/Length: 66 inBMI: 23.7ALLERGIES: Amlodipine, Hydralazine, Indocin, Minoxidil, Mircera, Norvasc Date/Time Medication Administered Medication OrderedStart NS [IV] NS IV : Bolus 500 mL, then 22376:00 07/26/2019 Dose: IV Fluids mL/hr (can be titrated Omar Duncan R.N. Rate: 125 mL/hr over 6 hour(s) additional physician instruction)---- Bolus: 500 mL wide openStop Dispensed: 1000 mL bag13:25 07/26/2019 Site: #1 right handOmar Estevez R.N.Start NS [IV] NS IV 1000 mL Bolus: : Bolus 817101:26 07/26/2019 Dose: IV Fluids mL (X1)Omar Estevez R.N. Bolus: 1000 mL wide open---- Site: #1 right swjsPqke10:03 07/26/2019Omar Estevez R.N. Name Value Range Interpretation Code Description Data Kevin rce(s) Supporting Document(s) ID Date Data Source [id number] 07/26/2019 10:28:00 AM EDT [facility] 1 General Instructions [facility] Emergency Department [address] [place] [address] Phone #: ext- [phone] 07/26/2019 10:24 [id number] Sex[facility] : 1940 Age: 79ySevere sepsis with shock, altered mental status and acute central nervous system failure and renal failure.No acute cardiovascular failure or respiratory failure or hepatic failure.Acute myocardial infarction with elevated markers, EKG changes and no ST elevation (NSTEMI)(Possible(confounded by renal failure)).Severe chronic renal failure- end stage disease (Dialysis- dependent).Hypokalemia.Moderate chronic iron deficiency anemia from chronic blood loss and anemia associated with chronicdisease and chronic renal disease; hypokalemia; abnormal BUN and creatinine. (Elevated troponin). ADDITIONAL INFORMATIONHypokalemiaHypokalemia means a low level of potassium in the blood. This most often occurs in people who takewater pills (diuretics). It can also occur because of severe vomiting or diarrhea. You may also have itif you take laxatives for long periods of time. It sometimes happens if you have low magnesium(hypomagnesemia). If you have this, your healthcare provider will treat the low magnesium first.A mild case of hypokalemia usually causes no symptoms. It is only found with blood testing. Moresevere potassium loss causes overall weakness, muscle or abdominal cramps, rapid or irregularheartbeats (heart palpitations), low blood pressure, and muscle weakness.Home care Take any potassium supplements as prescribed. Eat foods rich in potassium. The highest amount is found in avocado, baked potatoes, spinach, cantaloupe, cod, halibut, salmon, and scallops. White, red, or up beans are also very good sources. A modest amount of potassium is found in orange juice, bananas, carrots, and tomato juice. If you take certain types of diuretics, you will also need to take potassium supplements. If you take a diuretic, discuss potassium supplements with your doctor.Follow-up careFollow up with your healthcare provider for a repeat blood test within the next week, or as advised byour staff. 2 General Instructions [facility] Emergency Department [address] [place] [address] Phone #: ext- [phone] 07/26/2019 10:24 Patient: CASSIDY VARGHESE Sex: M : 1940 Age: 79yWhen to seek medical adviceCall your healthcare provider right away if any of the following occur: Increased weakness, fatigue, or muscle cramps DizzinessCall 911Call 911 if any of the following occur: Irregular heartbeat, extra beats, or very fast heart rate Loss of consciousness [phone] [place] [address]. All rights reserved. This information is not intended as asubstitute for professional medical care. Always follow your healthcare professional's instructions. You have been given the following additional information: Hypokalemia(Electronically signed by Merritt Marrero, Physician 07/27/2019 07:40) Name Value Range Interpretation Code Description Data Kevin rce(s) Supporting Document(s) ID Date Data Source [id number] 07/26/2019 10:28:00 AM EDT [facility] 1 Clinical Report - Nurses [facility] Emergency Department [address] [place] [address] Phone #: ext- [phone] 07/26/2019 10:24 Patient: CASSIDY VARGHESE Sex: M : 1940 Age: 79yTRIAGEArrived by EMS. ( pt was at home and per pt had became unresponsive and having diff breathing.).Triage time: 10:25 07/26/2019. Acuity: LEVEL 2.Chief Complaint: ALTERED MENTAL STATUS and CONFUSED.Alert.This started today. --10:39 07/26/19 Omar Estevez R.N.10:29 07/26/19. BP: 104/86. HR: 89. RR: 14. O2 saturation: 100%. Temp: 97.4 F. Pain level now 0/10.--10:39 07/26/19 Omar Estevez R.N.Weight: 66.6 kg. Height/Length: 66 inches. BMI: 23.7. --10:29 07/26/19 Omar Estevez R.N.MedicationsAlbuterol Sulfate Inhalation. Allopurinol Oral (Tablet 100 mg) 1 tablet, daily as needed. Aspir-81 Oral, daily. Calcium Acetate Oral 667 mg, 3x a day. Epogen Injection (Solution 08584 unit/mL), once a week. Heparin Sodium (Porcine) Injection (Solution 1000 unit/mL), once a week. Isosorbide Mononitrate ER Oral (Tablet Extended Release 24 Hour 60 mg) 1 tablet, daily. Metoprolol Succinate ER Oral (Tablet Extended Release 24 Hour 100 mg) 1 tablet, daily. Mupirocin External. Nortriptyline HCl Oral (Capsule 25 mg) 1 capsule, daily at bedtime. Omeprazole Oral 20 mg, daily. Paricalcitol Oral (Capsule 1 mcg) 3 caps, monthly. Percocet Oral (Tablet 5-325 mg) 1 tablet, 3x a day as needed. Potassium Chloride ER Oral (Tablet Extended Release 20 meq), daily. Renvela Oral (Tablet 800 mg) 1 tablet, 3x a day. Sensipar Oral (Tablet 60 mg), daily. Spiriva Respimat Inhalation, daily. Uloric Oral 40 mg, daily. --10:32 07/26/19 Omar Estevez R.N.AllergiesAmlodipine.Hydralazine.Indocin.Minoxidil.Mircera.Norvasc. --10:32 07/26/19 Omar Estevez R.N. 2 Clinical Report - Nurses [facility] Emergency Department [address] [place] [address] Phone #: ext- [phone] 07/26/2019 10:24 Patient: CASSIDY VARGHESE Sex: M : 1940 Age: 79y History PAST MEDICAL HX: Immunizations: status is unknown. SOCIAL HX: Smoker - current status unknown. No alcohol use or drug use. Unknown if he has traveled outside the [place] Infectious disease exposure: Screening unobtainable due to patient condition. SELF HARM ASSESSMENT: Self harm assessment unable to obtain due to patient condition. ABUSE ASSESSMENT: Abuse assessment: unable to obtain due to patient condition. FALL RISK ASSESSMENT: Fall risk assessment completed. Risk factors identified include patient medications and age greater than 65 years. FUNCTIONAL ASSESSMENT: The functional assessment was deferred due to ishmael hansen condition. LEARNING NEEDS ASSESSMENT: The learning needs assessment was deferred due to the patient's condition. SKIN INTEGRITY ASSESSMENT: Skin integrity risk assessment was performed. Risk factors identified include restricted mobility and altered level of consciousness. --10:39 07/26/19 Omar Estevez R.N. Interventions Identification band on patient. To treatment room. --10:39 07/26/19 Omar Estevez R.N.PHYSICAL LVVBHLANRH02:32 07/26/19. To room via stretcher. Patient gowned.GENERAL / NEURO / PSYCH: Alert. Oriented X 4. Appears in no acute distress. Speech within normallimits. Patient appears well-nourished and neat and clean.HEENT: Pupils equal, round and reactive to light.RESPIRATORY: Respirations not labored. Decreased breath sounds in the right lung base anteriorly,mid-lung anteriorly and upper lung anteriorly. Breath sounds within normal limits.CVS: Normal sinus rhythm noted. Pulses: right dorsalis pedis per doppler; left dorsalis pedis per doppler.Capillary refill less than 2 seconds.GI / : Abdomen soft and nontender. Bowel sounds within normal limits.SKIN: Skin is warm and dry. Normal skin turgor. --10:43 07/26/19 Garo Suárez R.N.NURSING PROGRESS NOTESOxygen administered. Monitoring of patient in place. Patient gowned. Three patient identifiers checked.Call light placed in reach. Side rails up x 2. Bed placed in lowest position. --10:39 07/26/19 Omar Estevez R.N. interface developer, pulse oximeter and NIBP monitor placed on patient; monitor alarms on. EKG time: (late entry - 10:28 07/26/2019). EKG was performed by a miguel and shown to the ED physician. --10:44 3 Clinical Report - Nurses [facility] Emergency Department [address] [place] [address] Phone #: ext- [phone] 07/26/2019 10:24 Patient: ABIMAEL, CASSIDY W Sex: M : 1940 Age: 79y07/26/19 [facility] [id number]:00 07/26/2019 Site #1 started prior to arrival by EMS via IV in the right hand with an 20g angiocath, withaseptic technique and good blood return. Saline lock flushed with 10 mL saline. --11:05 07/26/19Omar Estevez R.N.11:00 07/26/2019 Started bag #1 1000 mL IV Fluids NS; bolus of 500 mL wide open then at 125 mL/hrover 6 hour(s) via site #1 via IV pump. Allergies verified and confirmed 5 rights. IV patency established. IVsite checked: no pain, redness, or swelling. IV flushed thoroughly pre- and post-medication administration.Information reviewed with patient. Verbalizes understanding. --11:06 07/26/19 Omar Estevez R.N.11:11 07/26/19. BP: 99/73. HR: 85. RR: 16. O2 saturation: 100%. Pain level now 0/10. --11:11 07/26/19Omar Estevez R.N.Portable chest x-ray completed. Shown to the ED physician (1100). ( 1040 respiratory in to obtain ABGunable to obtain after multiple tries by 2 tech). --11:33 07/26/19 Yevgeniy Mcnamara RNChecked patient name and birthdate. Blood samples drawn by tech per protocol ; labeled in presence ofthe patient and sent to lab. (1120). Call light placed in reach. Side rails up x 2. ( 1130 pt resting 60degrees , respirations easy, CM sinus with PVC). --11:35 07/26/19 Yevgeniy Mcnamara RNCritical value relayed by (11:51 07/26/2019). Critical value received by STACEY (11:52007/26/2019). Lactate level: 4.4. Critical value read back. Verified lab result and patient ID. ED physicianand charge nurse notifed of critical value (elida DESOUZA). --11:52 07/26/19 Omar Estevez R.N.13:23 07/26/19. BP: 75/54. --13:23 07/26/19 Omar Estevez R.N.( MD marrero made aware, IVF bolus going.). --13:23 07/26/19 Omar Estevez R.N.13:25 07/26/2019 IV Fluids NS via IV site #1 Discontinued. Total amount infused: 1000 mL. --13: Omar Estevez R.N.13:26 07/26/2019 Started IV Fluids NS; bolus of 1000 mL wide open via site #1 via IV pump. Allergiesverified and confirmed 5 rights. IV patency established. IV site checked: no pain, redness, or swelling. IVflushed thoroughly pre- and post-medication administration. Information reviewed with patient. Verbalizesunderstanding. --13:26 07/26/19 Omar Estevez R.N.Patient transported to CT by stretcher with traffic control technician. Patient returned from CT by stretcherwith traffic control technician. --13:55 07/26/19 Yevgeniy Mcnamara RN15:03 07/26/2019 IV Fluids NS via IV site #1 Discontinued: completed. Total amount infused: 1000 mL. IVpatency established. IV site checked: no pain, redness, or swelling. IV flushed thoroughly. --15:03 07/26/19Omar Estevez R.N. 4 Clinical Report - Nurses [facility] Emergency Department [address] [place] [address] Phone #: ext- [phone] 07/26/2019 10:24 Patient: CASSIDY VARGHESE Sex: M : Age: 79yDISPOSITION / DISCHARGE 14:58 07/26/19. BP: 112/70. HR: 87. RR: 16. O2 saturation: 100%. Temp: 98.4 F. Pain level now 0/10. --14:58 07/26/19 Omar Estevez R.N. 15:47 07/26/19. BP: 128/89. MAP: 102. HR: 89. RR: 23. O2 saturation: 98%. Temp: 97.1 F. Pain level now: 0/10. --15:47 07/26/19 Garo Suárez R.N. Departure time: 15:55 07/26/2019. Transferred to [facility]. Provided to EMS. --18:40 07/26/19 Yevgeniy Mcnamara RN 15:55 07/26/2019 Site #[address] upon transfer. Flushed. --18:41 07/26/19 Yevgeniy Mcnamara RN.Locked/Released at 07/27/2019 12:51 by Garo Suárez R.N. Name Value Range Interpretation Code Description Data Kevin rce(s) Supporting Document(s) ID Date Data Source [id number] 07/26/2019 10:28:00 AM EDT [facility] 1 Clinical Report - Physicians/Mid Levels [facility] Emergency Department [address] [place] [address] Phone #: ext- [phone] 07/26/2019 10:24 Patient: CASSIDY VARGHESE Sex: M : 1940 Age: 79y Time Seen: 10:30 07/26/2019. Arrived- By private vehicle. Historian- patient. Disposition decision: 13:27 07/26/2019.HISTORY OF PRESENT ILLNESS Chief Complaint: DYSPNEA. This started today Altered mental status / Low O2 sats. as per ambulance. Awake and verbal on ED arrival. and is still present but is better now. It was abrupt in onset. The dyspnea is described as mild and is worsened by exertion, is improved by rest, is improved with oxygen and is improv ed with sitting upright. No cough, sputum production, fever, sweating episodes or wheezing. No chills, dyspnea on exertion, chest pain or discomfort or calf pain. No orthopnea, dizziness, tingling, numbness or palpitations. The patient has had mild right and left foot swelling. He has had anxiety. Similar symptoms previously. Patient has had similar symptoms occasionally. Recent medical care: Not recently seen/assessed.REVIEW OF SYSTEMSThe patient has had weight loss and difficulty with urination (No urine). No muscle aches, eye irritation,sore throat, nasal discharge or sinus drainage. No nausea, vomiting, abdominal pain, diarrhea or blackstools. No bloody stools, headache, fainting episodes, blurred vision or excessive urination. No skinrash, enlarged lymph nodes or joint pain.PAST HISTORYPast history not negative. See nurses notes. Hypertension. Diabetes mellitus. Lung disease. Renaldisease. GI disease. Other disease. Dialysis-dependent renal failureProstate LUH/P bilateral nephrectomyPulmonary edemaGoutGERDAnemiaChronic painCOPD. Surgeries: Right and left nephrectomy. Prostatectomy. (Toe surgery).SOCIAL HISTORYFormer smoker. No alcohol use or drug use. No recent travel.ADDITIONAL NOTESThe nursing notes have been reviewed with agreement regarding the chief complaint, HPI, ROS, PMH andpatient medications and allergies. 2 Clinical Report - Physicians/Mid Levels [facility] Emergency Department [address] [place] [address] Phone #: ext- [phone] 07/26/2019 10:24 Patient: CASSIDY VARGHESE Sex: M : 1940 Age: 79yPHYSICAL EXAMVital Signs: 07/26/2019 10:29 BP: 104/86. MAP: 92. HR: 89. RR: 14. O2 saturation: 100%. Temp: 97.4 F.Have been reviewed and appear to be correct. Blood pressure normal. Heart rate normal. Respiratoryrate normal. Temperature normal. Oxygen saturation normal.Appearance: Alert. Anxious. Patient in mild distress. In distress. (Bedridden. Unable to move LEsd/t MS).Eyes: Pupils equal, round and reactive to light. Eyes inspection not normal. Pale conjunctivae.ENT: Nose normal. Pharynx abnormal. Dry mucous membranes present. Uvula midline.Neck: Normal inspection. No jugular venous distention.CVS: Heart rate / rhythm abnormal. Bradycardia. Heart sounds normal. Pulses normal.Respiratory: No respiratory distress. Breath sounds abnormal. Mildly decreased air movementbilaterally. Painless inspiration.Abdomen: Soft and nontender. No organomegaly. Obese. (CAPD cath present).Back: Normal inspection. No CVA tenderness.Skin: Skin warm and dry. Abnormal skin color. Rash present. Normal skin turgor. Pale. Moderate,well-demarcated, warm, erythematous skin rash located on the left leg (L posterior thigh).Extremities: Lower extremity edema present. Bilateral moderate 3+ pitting edema of the lowerextremities involving both feet, both ankles and both lower legs. Extremities exhibit normal ROM.Neuro: Oriented X 3. Motor deficit noted. He has generalized weakness, (No LE movement. Almost noUE movement.).LABS, X-RAYS, AND EKGLaboratory Tests: Laboratory tests have been ordered, with results reviewed and considered in themedical decision making process. CT Chest W/O Cont: (MIKE: 07/26/2019 13:16) ( MsgRcvd 07/26/2019 17:42) In Progress CT THORAX W/O CONTRAST Reason(s): Shortness of Breath TRANSPORTATION: S IV? O2? Oxygen?(No) Room: ED CMTS: Hypoxia CT Head W/O Cont: (MIKE: 07/26/2019 13:16) ( MsgRcvd 07/27/2019 07:32) In Progress CT HEAD W/O CONTRAST Reason(s): Altered Mental Status TRANSPORTATION: S IV? O2? Oxygen?(No) Room: ED Exam CT HEAD W/O CONTRAST [facility] [address] [place] [address] PHONE: [phone] FAX: [phone] Name .................. : ABIMAEL Fair Acct Number.................. : [id number] ROOM. ................. : TR-08 MR Number ................... : [id number] Stay type ............. : E/R Discharge Date......... ... : 07/26/19 Admit Date ......... : 07/26/19 Admit Phys .................... : ELIDA DE OLIVEIRA Date of ....... : 1940 Family Phys ................... : UNKNOWN Phone .................. : [phone] Age ................................ : 79 3 Clinical Report - Physicians/Mid Levels [facility] Emergency Department [address] [place] [address] Phone #: ext- [phone] 07/26/2019 10:24 Patient: CASSIDY VARGHESE Sex: M : 1940 Age: 79y Film# .................. .:[id number] Sex ................................. : M Unsigned transcriptions are preliminary reports and do not represent a medical or legal document CT HEAD W/O CONTRAST [id number] COMPLETE:07/26/19 17:42 [id number] Reason(s): Altered Mental Status CT HEAD WITHOUT CONTRAST, 07/26/19: Comparison was made to 05/01/19. FINDINGS: There is a stable small punctate area of calcification posteriorly at the right parietal lobe. Otherwise, there is no mass, mass effect, midline shift, extra-axilla fluid collection, or intracranial hemorrhage. The ventricles are normal size and configuration for the patient's age. The orbits are unremarkable along with the visualized paranasal sinuses. No suspicious osseous lesion or acute fracture is identified. IMPRESSION: Stable small punctate calcification of the posterior right parietal lobe. Otherwise, unremarkable CT head. While performing the above CT examination, radiation dose reduction was accomplished utilizing automated exposure control, adjusting of the mA and kV based on the patient's body size and/or the use of imperative reconstructive techniques. CT dose 866.9 mGycm. Electronically Reviewed and Signed By DCTNAME , SIGNDATE, TDS Transcribe Initials: SSR, Transcribe Date: 07/27/19 07:28, Dictation Date: <<REPDIST>> Page 1 of 1CT ABD PEL W/O Oral W/O IV Contrast: (MIKE: 07/26/2019 13:14) ( MsgRcvd 07/26/2019 17:42) InProgressCT ABDReason(s): Abdominal DistentionTRANSPORTATION: WC IV? IV?(Yes) O2? Oxygen?(No) Ro CMTS: Lipase elevated / Does CAPDABG: (MIKE: 07/26/2019 10:36) ( MsgRcvd 07/26/2019 20:11) CanceledUrinalysis: (MIKE: 07/26/2019 10:36) ( MsgRcvd 07/26/2019 20:11) CanceledSOURCE: Clean Catch 4 Clinical Report - Physicians/Mid Levels [facility] Emergency Department [address] [place] [address] Phone #: ext- [phone] 07/26/2019 10:24 [id number] Sex: [facility] : 1940 Age: 79yTroponin-T: (MIKE: 07/26/2019 11:34) ( MsgRcvd 07/26/2019 12:16) Final results Test Result Flag Units (Reference) TROPONIN T 0.12 HH NG/ML (0.00 - 0.10) CALL/ READ BACK DR MARRERO BY: MAURA DATE/TIME 07/26/19 1215 TROPONIN T0.1 ng/ml Recommended as the clinical threshold value forTroponin T.BNP: (MIKE: 07/26/2019 11:34) ( MsgRcvd 07/26/2019 12:16) Final results Test Result Flag Units (Reference) BNP 2349 H PG/ML (0 - 450)CMP: (MIKE: 07/26/2019 11:34) ( MsgRcvd 07/26/2019 12:17) Final results Test Result Flag Units (Reference) COMPREHENSIVE METABOLIC PANEL COMPREHENSIVE METABOLIC PANEL SODIUM 139 mEq/L (134 - 153) POTASSIUM 3.2 L mEq/L (3.6 - 5.0) CHLORIDE 93 L mEq/L (98 - 107) CO2 27 MEQ/L (22 - 30) GLUCOSE 133 H MG/DL (65 - 110) BUN 31 H MG/DL (7 - 21) CREATININE 9.9 HH MG/DL (0.7 - 1.5) CALL/ READ BACK DR MARRERO BY: MAURA DATE/TIME 07/26/19 1215 BUN/CREAT 3 L (8 - 27) TOTAL PROTEIN 6.7 G/DL (6.3 - 8.2) ALBUMIN 3.8 L G/DL (3.9 - 5.0) GLOBULIN 2.9 GM/DL (2.4 - 3.2) A/G RATIO 1.3 (0.8 - 2.0) CALCIUM 9.9 MG/DL (8.4 - 10.2) TOTAL BILI <0.7 MG/DL (0.2 - 1.3) ALKALINE PHOS 69 U/L (38 - 126) SGOT/AST 32 U/L (5 - 40) SGPT/ALT 34 U/L (7 - 56) ANION GAP 19.0 H mmol/L (8.0 - 16.0) AGE 79 yrs NON-AA GFR 5 mL/min AFR AMER GFR 7 mL/min Male GFR Interprentation 20-49 yrs >60 mL/min Qituhm70-19 yrs >56 mL/min Normal 60-69 yrs >49 mL/min Normal 70-79yrs>42 mL/min Normal 80 and above >35 mL/min Normal Female GFRInterpretation 20-39 yrs >60 mL/min Normal 40-49 yrs >58 mL/minNormal 50-59 yrs >51 mL/min Normal 60-69 yrs >45 mL/min Anuxmh02-71 yrs >39 mL/min Normal 80 and above >32 mL/min NormalCBC w Diff: (MIKE: 07/26/2019 11:34) ( MsgRcvd 07/26/2019 11:50) Final results Test Result Flag Units * *(Reference) CBC W/AUTOMATED DIFF COMPLETE BLOOD COUNT WBC 9.4 10/uL (4.2 - 11.0) RBC 2.97 L 10/uL (4.50 - 6.30) HEMOGLOBIN 9.3 L g/dL (14.0 - 16.0) 5 Clinical Report - Physicians/Mid Levels [facility] Emergency Department [address] [place] [address] Phone #: ext- [phone] 07/26/2019 10:24 Patient: CASSIDY VARGHESE Sex: M : 1940 Age: 79y HEMATOCRIT 27.5 L % (41.0 - 51.0) MCV 92.6 fL (80.0 - 94.0) MCH 31.3 pg (27.0 - 34.0) MCHC 33.8 g/dL (31.0 - 36.0) RDW 15.7 H % (11.5 - 14.8) PLATELETS 324 10/uL (150 - 450) MPV 10.1 fL (7.4 - 10.4) NEUT 66.2 % (37.0 - 80.0) LYMPH 21.7 L % (25.0 - 40.0) MONO 5.3 % (3.0 - 8.0) EOS 6.1 % (0.0 - 7.0) BASO 0.3 % (0.0 - 2.0) %IG 0.4 H % (0.0 - 0.0) %NRBC 0.0 % (0.0 - 0.0) #NEUT 6.21 10/uL (2.00 - 6.90) #LYMPH 2.04 10/uL (0.60 - 3.40) #MONO 0.50 10/uL (0.00 - 0.90) #EOS 0.57 10/uL (0.00 - 0.70) #BASO 0.03 10/uL (0.00 - 0.20) #IG 0.04 10/uL (0.00 - 0.10) #NRBC 0.00 10/uL (0.00 - 0.00) MANUAL DIFF NOT INDICATED RBC MORPH NOT INDICATEDCPK: (MIKE: 07/26/2019 11:34) ( [facility] [place] 12:[place] Final results Test Result Flag Units (Reference) CPK 460 H U/L (30 - 170)D-Dimer: (MIKE: 07/26/2019 11:54) ( RigRcvd 07/26/2019 12:18) Final results Test Result Flag Units (Reference) D-DIMER QUANT 0.81 H ug/mL (0.27 - 0.50)Lactic Acid: (MIKE: 07/26/2019 11:34) ( [facility] [place] 07/26/2019 11:51) Final results Test Result Flag Units (Reference) LACTIC ACID 4.4 HH MMOL/L (0.2 - 2.2) CALL/ READ BACK OMAR BY: MAURA DATE/TIME 07/26/19 1152Lipase: (MIKE: 07/26/2019 11:34) ( [facility] [place] 07/26/2019 12:17) Final results Test Result Flag Units (Reference) LIPASE 140 H U/L (13 - 60)PTT: (MIKE: 07/26/2019 11:54) ( [facility] 07/26/2019 12:18) Final results Test Result Flag Units (Reference) PTT 42.6 H SECONDS (24.8 - 36.7)PT/INR: (MIKE: 07/26/2019 11:54) ( [facility] 07/26/2019 12:18) Final results Test Result Flag Units (Reference) PROTIME 14.3 SECONDS (11.0 - 15.5) INR 1.10 (0.93 - 1.23) \\BLDo\\INR INTERPRETATION\\BLDx\\ Therapeutic range for Coumadin andrelated oral anticoagulants. - International Normalized Ratio (INR): 2.0 - 3.0 for VenousThrombosis, Pulmonary Embolus, Tissue heart valves, Acute TN, Atrial Fibrillation, Valvular heartdisease and recurrent Systemic Embolism. - International Normalized Ratio (INR): 2.5 - 3.5for Mechanical Prosthetic valve. 6 Clinical Report - Physicians/Mid Levels [facility] Emergency Department [address] [place] [address] Phone #: ext- [phone] 07/26/2019 10:24 - Patient: CASSIDY VARGHESE Sex: M : 1940 Age: 79yChest Portable 1 View: (MIKE: 07/26/2019 10:36) ( MsgRcvd 07/26/2019 13:58) In ProgressCHEST PORTABLEReason(s): Shortness of BreathTRANSPORTATION: S IV? O2? Oxygen?(Yes) Room: E CMTS: [place] [address] PHONE: [phone] FAX: [phone] Name .................. : ABIMAEL Fair Acct Number.................. : [id number] ROOM. ................. : [facility] Number ................... : [id number] Stay type ............. : E/R Discharge Date......... ... : Admit Date ......... : 07/26/19 Admit Phys .................... : ELIDA DE OLIVEIRA Date of ....... : 1940 Family Phys ................... : UNKNOWN Phone .................. : [phone] Age ............ .................... : 79 Film# .................. .:[id number] Sex ................................. : M Unsigned transcriptions are preliminary reports and do not represent a medical or legal document CHEST PORTABLE [id number] COMPLETE:07/26/19 12:35 [facility] [id number] Reason(s): Shortness of Breath SINGLE VIEW OF THE CHEST, 07/26/19: Comparison was made to 05/01/19. FINDINGS: The cardiac and mediastinal silhouettes appear normal and the lungs are clear. The bones and soft tissues are normal. The upper abdomen is unremarkable. IMPRESSION: No acute disease identifiable. Electronically Reviewed and Signed By DCTNAME , SIGNDATE, TDS Transcribe Initials: SSR, Transcribe Date: 07/26/19 13:56, Dictation Date: <<REPDIST>> Page 1of 1.Note - Tests: (EKG - Sinus rhythm with occasional PVCs and poss. PACs with aberrant conduction. 7 Clinical Report - Physicians/[facility] Emergency Department [address] [place] [address] Phone #: ext- [phone] 07/26/2019 10:24 Patient: CASSIDY VARGHESE Sex: M : 1940 Age: 79y Left axis deviation. Incomplete RBBB. Abnormal QRST angle, consider primary T-wave abnormality. See reports for CT head / CT chest / CT abdomen and pelvis).PROGRESS AND PROCEDURESCourse of Care: 11:Jul 26 2019. Patient is stable. Symptoms much better. 11:12 Jul 26 2019. 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 Once sat monitor moved to ear, sats approached 100% and O2 titrated. Respiratory therapists were unable to do ABG due to prior fistulae and lack of a palpable radial pulse. 13:24 Jul 26 2019. I just spoke with Dr. Cabrera (Hospitalist at [facility]) and he will accept pt. because there is need for telemetry and dialysis. We await bed assignment. Pt. is somewhat hypotensive and will need bolus fluid now prior to transfer. He may have element of sepsis (without source yet identified) and he may have NSTEMI (with artificially-elevated troponin due to renal failure). He is significantly anemic as well with H/H (9.3/27.5). Pt. understands and agrees. 14:Jul 26 2019. Pt. doing much better with IV fluids and SBP back up to over 100. He is awake and alert and I have told him about transfer to [facility] and he is agreeable. Critical care performed (130 minutes). Time is exclusive of separately billable procedures. Time includes: direct patient care, patient reassessment, coordination of patient care, interpretation of data (laboratory data, pulse oximetry and chest xrays), review of patient's medical records, medical consultation, family consultation regarding treatment decisions and documentation of patient care- see progress notes. Procedures included in critical care time: peripheral IV placement and phlebotomy- see progress notes. Disposition: Benefits, risks and alternatives to transfer explained to patient. Transferred to [facility]. Summary of care (CCDA) provided to transport team, EMS, patient, family and transfer facility via paper and digital media. 13:Jul [address] Cabrera ([facility] hospitalist) accepts pt. for transfer for renal failure / need for dialysis / hypotension / hypokalemia. UTI (catheter associated) was not present prior to transfer. Pressure ulcer was not present prior to transfer. Vascular infection (catheter associated) was not present prior to transfer. Surgical site infection was not present prior to transfer. An object left in surgery was not present prior to transfer. Blood incompatibility was not present prior to transfer. Air embolism was not present prior to transfer.CLINICAL IMPRESSION Severe sepsis with shock, altered mental status and acute central nervous system failure and renal failure. No acute cardiovascular failure or respiratory failure or hepatic failure. Acute myocardial infarction with elevated markers, EKG changes and no ST elevation (NSTEMI)(Possible (confounded by renal failure)). Severe chronic renal failure- end stage disease (Dialysis-dependent). Hypokalemia. Moderate chronic iron deficiency anemia from chronic blood loss and anemia associated with chronic disease and chronic renal disease; hypokalemia; abnormal BUN and creatinine. (Elevated troponin). 8 Clinical Report - Physicians/Mid Levels [facility] Emergency Department [address] [place] [address] Phone #: ext- [phone] 07/26/2019 10:24 Patient: CASSIDY VARGHESE [facility]#: [id number] Sex: M : 1940 Age: 79y(Electronically signed by Merritt Marrero, Physician 07/27/2019 07:40) Name Value Range Interpretation Code Description Data Kevin rce(s) Supporting Document(s) ID Date Data Source [id number] 07/26/2019 12:38:00 PM EDT [facility] ([facility]) Name Value Range Interpretation Code Description Data Kevin rce(s) Supporting Document(s) D-Dimer QN 0.81 [facility] ([facility]) Lipoprotein lipase [Enzymatic activity/volume] in Serum or Plasma 140 [facility] ([facility]) ID Date Data Source [id number] 07/26/2019 12:38:00 PM EDT [facility] ([facility]) Name Value Range Interpretation Code Description Data Kvein rce(s) Supporting Document(s) Red Blood Count 2.97 4.50-6.30 [facility] ([facility]) White Blood Count 9.4 4.2-11.0 [facility] ([facility]) Hemoglobin 9.3 14.0-16.0 [facility] ([facility]) Platelets 324 150-450 [facility] Hematocrit 27.5 41.0-51.0 [facility] ([facility]) ID Date Data Source [id number] 07/26/2019 12:38:00 PM EDT [facility] ([facility]) Name Value Range Interpretation Code Description Data Kevin rce(s) Supporting Document(s) Albumin [Mass/volume] in Serum or Plasma 3.8 [facility] ([facility]) Alanine aminotransferase [Enzymatic activity/volume] in Serum or Pl asma 34 [facility] ([facility]) Calcium [Mass/volume] in Serum or Plasma 9.9 [facility] ([facility]) Carbon dioxide, total [Moles/volume] in Serum or Plasma 27 [facility] ([facility]) Chloride [Moles/volume] in Serum or Plasma 93 [facility] ([facility]) Potassium [Moles/volume] in Serum or Plasma 3.2 [facility] ([facility]) Alkaline phosphatase [Enzymatic activity/volume] in Serum or Plasma 6 9 [facility] ([facility]) Protein [Mass/volume] in Serum or Plasma 6.7 [facility] ([facility]) Sodium 139 [facility] Aspartate aminotransferase [Enzymatic activity/volume] in Serum or Plasma 32 [facility] ([facility]) Urea nitrogen [Mass/volume] in Serum or Plasma 31 [facility] ([facility]) Creatinine For GFR 9.9 [facility] ([facility]) Glucose 133 65-110 [facility] ([facility]) ID Date Data Source [id number] 07/26/2019 12:38:00 PM EDT [facility] ([facility]) Name Value Range Interpretation Code Description Data Kevin rce(s) Supporting Document(s) Troponin 0.12 [facility] ([facility]) Brain Natriuretic Peptide 2349 [facility] NT ([facility]) ID Date Data Source [id number] 07/31/2019 06:22:00 PM EDT [facility] ped BC Name Value Range Interpretation Code Description Data Kevin rce(s) Supporting Document(s) Bacteria identified in Blood by Culture [facility] NO GROWTH AFTER 5 DAYS ID Date Data Source [id number] 07/26/2019 12:18:00 PM EDT [facility] Name Value Range Interpretation Code Description Data Kevin rce(s) Supporting Document(s) Fibrin D-dimer FEU [Mass/volume] in Platelet poor plasma 0.81 ug /mL 0.27 - 0.50 H [facility] ID Date Data Source [id number] 07/26/2019 12:18:00 PM EDT [facility] Name Value Range Interpretation Code Description Data Kevin rce(s) Supporting Document(s) aPTT in Blood by Coagulation assay 42.6 SECONDS 24.8 - 36.7 H [facility] ID Date Data Source [id number] 07/26/2019 12:17:00 PM EDT [facility] Name Value Range Interpretation Code Description Data Kevin rce(s) Supporting Document(s) Prothrombin time (PT) 14.3 SECONDS 11.0 - 15.5 [facility] INR in Platelet poor plasma by Coagulation assay 1.10 0.93 - 1. 23 [facility] \\BLDo\\INR INTERPRETATION\\BLDx\\ Therapeutic range for Coumadin and related oral anticoagulants. - International Normalized Ratio (INR): 2.0 - 3.0 for Venous Thrombosis, Pulmonary Embolus, Tissue heart valves, Acute TN, Atrial Fibrillation, Valvular heart disease and recurrent Systemic Embolism. -International Normalized Ratio (INR): 2.5 - 3.5 for Mechanical Prosthetic valve. ID Date Data Source [id number] 08/01/2019 07:11:00 AM EDT [facility] Value Range Interpretation Code Description Data Kevin rce(s) Supporting Document(s) CULTURE BLOOD [facility] spital _CULTURE BLOOD_ [place] [address] CLIA# [id number] SEE SCANNED REPORT{ PRELIM ID Date Data Source [id number] 07/26/2019 12:17:00 PM EDT [facility] Value Range Interpretation Code Description Data Kevin rce(s) Supporting Document(s) Lipase [Enzymatic activity/volume] in Serum or Plasma 140 U/L 13 - 60 H [facility] ID Date Data Source [id number] 07/26/2019 12:17:00 PM EDT [facility] Value Range Interpretation Code Description Data Kevin rce(s) Supporting Document(s) Creatine kinase [Enzymatic activity/volume] in Serum or Plasma 4 60 U/L 30 - 170 H [facility] ID Date Data Source [id number] 07/26/2019 12:16:00 PM EDT [facility] Name Value Range Interpretation Code Description Data Kevin rce(s) Supporting Document(s) COMPREHENSIVE METABOLIC PANEL [facility] COMPREHENSIVE METABOLIC PANEL Sodium [Moles/volume] in Serum or Plasma 139 mEq/L 134 - 153 [facility] Potassium [Moles/volume] in Serum or Plasma 3.2 mEq/L 3.6 - 5.0 L [facility] Chloride [Moles/volume] in Serum or Plasma 93 mEq/L 98 - 107 L [facility] Carbon dioxide, total [Moles/volume] in Serum or Plasma 27 MEQ/L 22 - 30 [facility] Glucose [Mass/volume] in Serum or Plasma 133 MG/DL 65 - 110 H [facility] BUN 31 MG/DL 7 - [address] [facility] al Creatinine [Mass/volume] in Serum or Plasma 9.9 MG/DL 0.7 - 1.5 HH [facility] CALL/ READ BACK DR MARRERO [facility] BY: MAURA [facility] DATE/TIME 07/26/19 1215 [facility] ospital BUN/CREAT 3 8 - [address] [facility] Protein [Mass/volume] in Serum or Plasma 6.7 G/DL 6.3 - 8.2 [facility] Albumin [Mass/volume] in Serum or Plasma 3.8 G/DL 3.9 - 5.0 L [facility] Globulin [Mass/volume] in Serum by calculation 2.9 GM/DL 2.4 - 3.2 [facility] A/G RATIO 1.3 0.8 - 2.0 [facility] Calcium [Mass/volume] in Serum or Plasma 9.9 MG/DL 8.4 - 10.2 [facility] Bilirubin.total [Mass/volume] in Serum or Plasma <0.7 MG/DL 0.2 - 1.3 [facility] Alkaline phosphatase [Enzymatic activity/volume] in Serum or Plasma 69 U/L 38 - 126 [facility] Aspartate aminotransferase [Enzymatic activity/volume] in Serum or Plasma 32 U/L 5 - 40 [facility] Alanine aminotransferase [Enzymatic activity/volume] in Seru m or Plasma 34 U/L 7 - 56 [facility] Anion gap 3 in Serum or Plasma 19.0 mmol/L 8.0 - 16.0 H [facility] 79 [facility] 5 [facility]/min [facility] maribeth AFR AMER GFR 7 mL/min [facility] Hos pital Male GFR In terprentation 20-49 yrs >60 mL/min Normal 50-59 yrs >56 mL/min Normal 60-69 yrs >49 mL/min Normal 70-79yrs >42 mL/min Normal 80 and above >35 mL/min Normal Female GFR Interpretation 20-39 yrs >60 mL/min Normal 40-49 yrs >58 mL/min Normal 50-59 yrs >51 mL/min Normal 60-69 yrs >45 mL/min Normal 70-79 yrs >39 mL/min Normal 80 and above >32 mL/min Normal ID Date Data Source [id number] 07/26/2019 12:16:00 PM EDT [facility] Name Value Range Interpretation Code Description Data Kevin rce(s) Supporting Document(s) BNP 2349 PG/ML 0 - 450 H [facility] maribeth ID Date Data Source [id number] 07/26/2019 12:15:00 PM EDT [facility] Value Range Interpretation Code Description Data Kevin rce(s) Supporting Document(s) TROPONIN T 0.12 NG/ML 0.00 - 0.10 [facility] spital CALL/ READ BACK DR MARRERO [facility] DATE[facility]TIME 07/26/19 1215 [facility] ospital TROPONIN T0.1 ng/ml Recommended as the c linical threshold value forTroponin T. ID Date Data Source [id number] 07/26/2019 11:50:00 AM EDT [facility] Name Value Range Interpretation Code Description Data Kevin rce(s) Supporting Document(s) Lactate [Moles/volume] in Serum or Plasma 4.4 MMOL/L 0.2 - 2.2 [facility] DATE[facility]TIME 07/26/19 1152 [facility] ospital ID Date Data Source [id number] 07/26/2019 11:49:00 AM EDT [facility] Name Value Range Interpretation Code Description Data Kevin rce(s) Supporting Document(s) CBC W/AUTOMATED DIFF [facility] COMPLETE BLOOD COUNT Leukocytes [#/volume] in Blood by Automated count 9.4 10^3/uL 4.2 - 1 1.0 [facility] Erythrocytes [#/volume] in Blood by Automated count 2.97 10^6/uL 4. 50 - 6.30 L [facility] Hemoglobin [Mass/volume] in Blood 9.3 g/dL 14.0 - 16.0 L [facility] Hematocrit [Volume Fraction] of Blood by Automated count 27.5 % 4 1.0 - 51.0 L [facility] Erythrocyte mean corpuscular volume [Entitic volume] by Auto mated count 92.6 fL 80.0 - 94.0 [facility] Erythrocyte mean corpuscular hemoglobin [Entitic mass] by Automated count 31.3 pg 27.0 - 34.0 [facility] Erythrocyte mean corpuscular hemoglobin concentration [Mass/volume] by Automated count 33.8 g/dL 31.0 - 36.0 [facility] Erythrocyte distribution width [Ratio] by Automated count 15.7 % 11.5 - 14.8 H [facility] Platelets [#/volume] in Blood by Automated count 324 10^3/uL 150 - 45 0 [facility] Platelet mean volume [Entitic volume] in Blood by Automated count 10.1 fL 7.4 - 10.4 [facility] Neutrophils/100 leukocytes in Blood by Automated count 66.2 % 37. 0 - 80.0 [facility] Lymphocytes/100 leukocytes in Blood by Manual count 21.7 % 25.0 - 40.0 L [facility] Monocytes/100 leukocytes in Blood by Automated count 5.3 % 3.0 - 8.0 [facility] Eosinophils/100 leukocytes in Blood by Automated count 6.1 % 0.0 - 7.0 [facility] Basophils/100 leukocytes in Blood by Automated count 0.3 % 0.0 - 2.0 [facility] %IG 0.4 % 0.0 - 0.0 [facility] %NRBC 0.0 % 0.0 - 0.0 [facility] al Neutrophils [#/volume] in Blood by Automated count 6.21 10^3/uL 2.00 - 6.90 [facility] Lymphocytes [#/volume] in Blood by Automated count 2.04 10^3/uL 0.60 - 3.40 [facility] Monocytes [#/volume] in Blood by Automated count 0.50 10^3/uL 0.00 - 0.90 [facility] Eosinophils [#/volume] in Blood by Automated count 0.57 10^3/uL 0.00 - 0.70 [facility] Basophils [#/volume] in Blood by Automated count 0.03 10^3/uL 0.00 - 0.20 [facility] #IG 0.04 10^3/uL 0.00 - 0.10 [facility] H ospital #NRBC 0.00 10^3/uL 0.00 - 0.00 [facility] ospital MANUAL DIFF NOT INDICATED [facility] RBC MORPH NOT INDICATED [facility] spital ID Date Data Source [id number] 08/01/2019 07:11:00 AM EDT [facility] Name Value Range Interpretation Code Description Data Kevin rce(s) Supporting Document(s) CULTURE BLOOD [facility] spital _CULTURE BLOOD_ [place] [address] CLIA# [id number] SEE SCANNED REPORT{ PRELIM ID Date Data Source [id number] 06/18/2019 12:19:00 PM EDT [facility] ([facility]) Name Value Range Interpretation Code Description Data Kevin rce(s) Supporting Document(s) Blood Urea Nitrogen 35 6-19 [facility] ([facility]) Glucose Laboratory test result [facility] ([facility]) Creatinine 10.30 0.60-1.30 [facility] ([facility]) Sodium 136 136-145 [facility] Potassium 4.5 3.5-5.1 [facility] Calcium 11.5 8.4-10.4 [facility] Chloride 94 96-108 [facility] Carbon Dioxide 18 22-29 [facility] ([facility]) Glomerular filtration rate/1.73 sq M.pre dicted [Volume Rate/Area] in Serum or Plasma by Creatinine-based formula (MDRD) Laboratory test result [facility] ([facility]) ID Date Data Source [id number] 06/18/2019 12:19:00 PM EDT [facility] ([facility]) Name Value Range Interpretation Code Description Data Kevin rce(s) Supporting Document(s) Platelets 256 130-400 [facility] White Blood Count 11.42 4.80-10.80 [facility] ([facility]) Red Blood Count 3.57 4.7-6.10 [facility] ([facility]) Hematocrit 33.3 42.0-52.0 [facility] ([facility]) Hemoglobin 11.2 14.0-18.0 [facility] ([facility]) ID Date Data Source [id number] 05/04/2019 10:53:00 [place] [address] PHONE: [phone] FAX: [phone] Name .................. : ABIMAEL Fair Acct Number.................. : [id number] ROOM. ................. : TR-03 Number ................... : [id number] Stay type ............. : E/R Discharge Date......... ... : 05/01/19 Admit Date ....... .. : 05/01/19 Admit Phys .................... : ELIDA DE OLIVEIRA Date of ....... : 1940 Family Phys ................... : UNKNOWN Phone .................. : [phone] Age ................................ : 79 Film# .................. .:[id number] Sex ................................. : M Unsigned transcriptions are preliminary reports and do not represent a medical or legal document CT THORAX W/O CONTRAST [id number] COMPLETE:05/01/19 18:52 [facility] [id number] Reason(s): Congestion CT OF THE CHEST WITHOUT CONTRAST: INDICATION: Congestion. FINDINGS: The neck base demonstrates a heterogeneous thyroid. The lungs are well-expanded with no focal infiltrate. No suspicious mass or nodule is visualized. The heart is normal in size. Severe coronary artery calcification noted. No lymphadenopathy. There is no acute osseous abnormality. Moderate bilateral gynecomastia is noted. Please see separate report for abdominal details. IMPRESSION: No acute pulmonary process. Heterogeneous thyroid. If not previously examined with ultrasound, recommend dedicated thyroid ultrasound. Moderate bilateral gynecomastia. While performing the above CT examination, radiation dose reduction was accomplished utilizing automated exposure control, adjusting of the mA and kV based on the patient's body size and/or the use of imperative reconstructive techniques. CT dose: 1153.9 mGycm Page 1 of 2 [facility] [address] [place] [address] PHONE: [phone] FAX: [phone] Name .................. : ABIMAEL CASSIDY Manjula Acct Number.................. : [id number] ROOM. ................. : TR-03 MR Number ................... : [id number] Stay type ............. : E/R Discharge Date......... ... : 05/01/19 Admit Date ......... : 05/01/19 Admit Phys .................... : ELIDA YENNIFER Date of ....... : 1940 Family Phys ................... : UNKNOWN Phone .................. : [phone] Age ................................ : 79 Film# .................. .:[id number] Sex ................................. : M Unsigned transcriptions are preliminary reports and do not represent a medical or legal document CT THORAX W/O CONTRAST [id number] COMPLETE:05/01/19 18:52 [facility] [id number] Reason(s): Congestion Electronically Reviewed and Signed By Azael Cutler M.D. , 05/04/19 10:53, AZY Transcribe Initials: DALE , Transcribe Date: 05/02/19 13:12, Dictation Date: Copy for: EMERGENCY DEPT via modem Copy for: 710 MED REC DISCHARGED Page 2 of 2 Name Value Range Interpretation Code Description Data Kevin rce(s) Supporting Document(s) ID Date Data Source [id number] 05/01/2019 12:53:00 PM EST [facility] 1 OrderSheet [facility] Emergency Department [address] [place] [address] Phone #: ext- [phone] 05/01/2019 12:38 Patient: CASSIDY VARGHESE Sex: M : 1940 Age: 78yWEIGHT:85.2 kg (S) HEIGHT:68 inches (S) BMI:28.6ALLERGIES: Amlodipine, Hydralazine, Indocin, Minoxidil, Mircera, NorvascCHIEF COMPLAINT: dyspnea, cough, weaknessDIAGNOSIS: Renal failure syndrome, Asthenia, Cellulitis of skin, Hypertensive disorderLAB ORDERSOrder Description Priority Entered Acknowledged InitialedTroponin-T STAT 12:54 05/01/2019 12:59 Mo Cordero RN Physician;PTT STAT 12:54 05/01/2019 12:59 Mo Cordero RN Physician;PT/INR STAT 12:54 05/01/2019 12:59 Mo Cordero RN Physician;Lipase STAT 12:54 05/01/2019 12:59 Mo Cordero RN Physician;Lactic Acid STAT 12:54 05/01/2019 12:59 Mo Cordero RN Physician;BNP STAT 12:54 05/01/2019 12:59 Mo Cordero RN Physician;CBC w Diff STAT 12:54 05/01/2019 12:59 Mo Cordero RN Physician;CMP STAT 12:54 05/01/2019 12:59 Mo Cordero RN Physician;CPK STAT 12:54 05/01/2019 12:59 Mo Cordero RN Physician;Blood Culture STAT 12:54 05/01/2019 12:59 Voikoc51c X2 (Anuradha Cordero RN12:54 05/01/2019) Physician;Blood Culture STAT 12:54 05/01/2019 13:19 Mo 2 OrderSheet [facility] Emergency Department [address] [place] [address] Phone #: ext- [phone] 05/01/2019 12:38 Patient: CASSIDY VARGHESE Sex: M : 1940 Age: 86nn64l X2 (Sched Merritt Cordero RN13:04 05/01/2019) Physician;D-Dimer STAT 12:54 05/01/2019 12:59 oM Cordero RN Physician;Influenza Nasal A B STAT 13:29 05/01/2019 13:30 Mo Cordero RN Physician;Culture, Wound STAT 13:40 05/01/2019 13:43 Mo Cordero RN Physician; NOTES: L great toe woundDIAGNOSTIC STUDY ORDERSOrder Description Priority Entered Acknowledged InitialedChest Portable 1 STAT 12:54 05/01/2019 12:59 Arnie Cordero RN(Oxygen?(No)) Physician; Reason for Study: Congestion, Shortness of BreathCT Head W/O Cont STAT 15:51 05/01/2019 17:32 Mo(Oxygen?(No)) Merritt Cordero RN Physician; Reason for Study: Dizziness, Vertigo/Dizziness, WeaknessCT Chest W/O Cont STAT 15:51 05/01/2019 17:32 Mo(Oxygen?(No)) Merritt Cordero RN Physician; Reason for Study: Congestion, Shortness of BreathCT ABD PEL W/O STAT 15:51 05/01/2019 17:32 MoOral W/O IV Merritt Cordero RNContrast Physician;(Oxygen?(No))(IV?(Yes)) Reason for Study: NauseaMEDICATION/IV/DRIP/FLUID ORDERSOrder Description Priority Entered Acknowledged InitialedDuoNeb Neb Tx 3 13:06 05/01/2019 13:19 MomL (NOW) Merritt Cordero RN Physician;SOLU-Medrol 125 13:07 05/01/2019 13:19 Momg IV X1 Dose: 125 Merritt Cordero RNmg (X1) Physician;NitroGLYCERIN 13:41 05/01/2019 13:49 Mo 3 OrderSheet [facility] Emergency Department [address] [place] [address] Phone #: ext- [phone] 05/01/2019 12:38 Patient: CASSIDY VARGHESE Sex: M : 1940 Age: 78yTopical Ointment Merritt Cordero RN1 in. Physician;Rocephin 15:10 05/01/2019 15:22 Mo(1gm/50mL) IVPB Merritt Cordero [id number] mg with Physician;Dextrose 50 mlspike bag (D5W)GENERAL ORDERSOrder Description Priority Entered Acknowledged InitialedCardiac Monitor 12:54 05/01/2019 12:59 Mo(continuous) Merritt Cordero RN Physician;EKG 12:54 05/01/2019 12:59 Mo Cordero RN Physician;Pulse oximeter 12:54 05/01/2019 12:59 Mo(Continuous) Merritt Cordero RN Physician;Oxygen titrate to 12:54 05/01/2019 12:59 Mo92% Merritt Cordero RN Physician;Saline Lock 12:54 05/01/2019 12:59 Mo Cordero RN Physician;Diet: (Regular Diet) 15:24 05/01/2019 15:28 Mo Cordero RN Physician;[Electronically signed by Katie Whitt R.N. (19:05/01/2019)][Electronically signed by Merritt Marrero Physician (04:17 05/03/2019)][Electronically locked by Katie Whitt R.N. (05/01/2019)] Name Value Range Interpretation Code Description Data Kevin rce(s) Supporting Document(s) ID Date Data Source [id number] 05/01/2019 12:53:00 PM EST [facility] 1 Medication Reconciliation Report [facility] Emergency Department [address] [place] [address] Phone #: ext- [phone] 05/01/2019 12:38 Patient: CASSIDY VARGHESE Sex: M : 1940 Age: 78yWeight: 85.2 kgHeight/Length: 68 in.BMI: 28.6ALLERGIES: Amlodipine, Hydralazine, Indocin, Minoxidil, Mircera, NorvascThe patient's Home Medications are listed below:THE FOLLOWING MEDICATIONS NEED TO BE RECONCILED: Albuterol Sulfate Inhalation Allopurinol Oral (100 mg) 1 tablet, daily, prn Aspir-81 Oral, daily Calcium Acetate Oral 667 mg, 3x a day Epogen Injection (28829 unit/mL), once a week Heparin Sodium (Porcine) Injection (1000 unit/mL), once a week Isosorbide Mononitrate ER Oral (60 mg) 1 tablet, daily Metoprolol Succinate ER Oral (100 mg) 1 tablet, daily Mupirocin External Nortriptyline HCl Oral (25 mg) 1 capsule, daily, at bedtime Omeprazole Oral 20 mg, daily Paricalcitol Oral (1 mcg) 3 caps, monthly Percocet Oral (5-325 mg) 1 tablet, 3x a day, prn Potassium Chloride ER Oral (20 meq), daily Renvela Oral (800 mg) 1 tablet, 3x a day 2 Medication Reconciliation Report [facility] Emergency Department [address] [place] [address] Phone #: ext- [phone] 05/01/2019 12:38 Patient: CASSIDY VARGHESE Sex: M : 1940 Age: 78y Sensipar Oral (60 mg), daily Spiriva Respimat Inhalation, daily Uloric Oral 40 mg, dailyThe source(s) of the original Home Medication information:Not obtained.The following Medications were given to the patient in the Emergency Department:Duoneb [Neb Tx] Neb TX 1 unit dose, administered: 05/01/2019 1:19:00 PMSolu-Medrol [IVP] IVP 125 mg, administered: 05/01/2019 1:19:00 PMNITROGLYCERIN [TOPICAL OINTMENT] Topical 1 in., administered: 05/01/2019 1:47:00 PMROCEPHIN (1GM/50ML) [IVPB] IVPB bolus 0, then 1 gm 100 mL/hr, administered: 05/01/2019 3:20:00 PMThe following Medications were prescribed to the patient:None. Name Value Range Interpretation Code Description Data Kevin rce(s) Supporting Document(s) ID Date Data Source [id number] 05/01/2019 12:53:00 PM EST [facility] 1 Medication Administration Record [facility] Emergency Department [address] [place] [address] Phone #: ext- [phone] 05/01/2019 12:38 Patient: CASSIDY VARGHESE Sex: M : 1940 Age: 78yWeight: 85.2 kgHeight/Length: 68 inBMI: 28.6ALLERGIES: Indocin, Norvasc, Mircera, Minoxidil, Hydralazine, Amlodipine Date/Time Medication Administered Medication OrderedGiven DUONEB [NEB TX] DuoNeb Neb Tx 3 mL (NOW)13:19 05/01/2019 Dose: 1 unit dose Nebulizer Poly Kasper SOLU-MEDROL [IVP] SOLU-Medrol 125 mg IV X1 Dose:13:19 05/01/2019 (METHYLPREDNISOLONE SODIUM 125 mg (X1)Mo Cordero RN SUCC) Dose: 125 mg IVP Site: #1 right wristGiven NITROGLYCERIN [TOPICAL OINTMENT] NitroGLYCERIN Wprager53:47 05/01/2019 Dose: 1 in. Ointment Topical Ointment 1 in.Cande Cavazos ROCEPHIN (1GM/50ML) [IVPB] Rocephin (1gm/50mL) IVPB 012824:20 05/01/2019 (CEFTRIAXONE SODIUM) mg with Dextrose 50 ml spike bagPeter Cordero, RN Dose: 1 gm IVPB (D5W)---- Rate: 100 mL/hr over 30 minute(s)Stop Dispensed: 50 mL bag15:50 05/01/2019 Site: #1 right Katie CasonMickey Name Value Range Interpretation Code Description Data Kevin rce(s) Supporting Document(s) ID Date Data Source [id number] 05/01/2019 12:53:00 PM EST [facility] 1 General Instructions [facility] Emergency Department [address] [place] [address] Phone #: ext- [phone] 05/01/2019 12:38 Patient: CASSIDY VARGHESE Sex: M : 1940 Age: 78yAcute generalized weakness.Severe chronic renal failure- end stage disease (Bilateral nephrectomies).Cellulitis of the left great toe. No foreign body present.Uncontrolled essential hypertension. ADDITIONAL INFORMATIONChronic Kidney Disease (CKD)The role of the kidneys is to remove waste products and extra water from the blood. When thekidneys do not work as they should, waste products begin to build up in the blood. This is calledchronic kidney disease (CKD). CKD means that you have kidney damage or a decrease in kidneyfunction lasting at least 3 months. CKD allows extra water, waste, and toxins to build up in the body.This can eventually become life-threatening. You might need dialysis or a kidney transplant to stayalive. This most severe form is called end stage renal disease.Diabetes is the leading causes of chronic renal failure. Other causes i nclude high blood pressure,hardening of the arteries (atherosclerosis), lupus, inflammation of the blood vessels (vasculitis), andpast viral or bacterial infections. Certain ajwr-iuc-hdcsvjb pain medicines can cause renal failurewhen taken often over a long period of time. These include aspirin, ibuprofen, and relatedanti-inflammatory medicines called NSAIDs (nonsteroidal anti-inflammatory drugs).Home careThe following guidelines will help you care for yourself at home: If you have diabetes, talk with your healthcare provider about keeping your blood sugar under control. Ask if you need to make and changes to your diet, lifestyle, or medicines. If you have high blood pressure: o Take prescribed medicine to lower your blood pressure to the recommended goal of less than 130/80. o Start a regular exercise program that you enjoy. Check with your healthcare provider to be sure your planned exercise program is right for you. o Eat less salt (sodium). Your healthcare provider can tell you how much salt per day is safe for you. 2 General Instructions [facility] Emergency Department [address] [place] [address] Phone #: ext- [phone] 05/01/2019 12:38 Patient: CASSIDY VARGHESE Sex: M : 1940 Age: 78y If you are overweight, talk with your healthcare provider about a weight loss plan. If you smoke, you must quit. Smoking makes kidney disease worse. Talk with your healthcare provider about ways to help you quit. For more information, visit the following links: o www.smokefree.gov/sites/default/files/pdf/ncflnavj-ggo-ctn-accessible.pdf o www.smokefree.gov o www.cancer.org /healthy/stayawayfromtobacco/guidetoquittingsmoking/ Most people with CKD need to follow a special diet. Be sure you understand yours. In general, you will need to limit protein, salt, potassium, and phosphorus. You also need to limit how much fluid you drink. CKD is a risk factor for heart disease. Talk with your healthcare provider about any other risk factors you might have and what you can do to lessen them. Talk with your healthcare provider about any medicines you are taking to find out if they need to be reduced or stopped. Don't use the following zaqd-ibv-xdcqvxf medicines, or consult your healthcare provider before using: o Aspirin and NSAIDs such as ibuprofen or naproxen. Using acetaminophen for fever or pain is OK. o Laxatives and antacids containing magnesium or aluminum o Fleet or phospho soda enemas containing phosphorus o Certain stomach acid-blocking medicine such as cimetidine or ranitidine o Decongestants containing pseudoephedrine o Herbal supplementsFollow-up careFollow up with your healthcare provider, or as advised. Contact one of the following for moreinformation: [place] [employer] [phone] www.aakp.org National Kidney Foundation 702-583-8751 www.kidney.org [employer] [employer] [phone] www.kidneyfund.org National Kidney Disease Education Program 866-4KIDNEY www.nkdep.nih.gov 3 General Instructions [facility] Emergency Department [address] [place] [address] Phone #: ext- [phone] 05/01/2019 12:38 Patient: CASSIDY VARGHESE Sex: M : 1940 Age: 78yIf an X-ray, ECG (cardiogram), or other diagnostic test was taken, you will be told of any new findingsthat may affect your care.Call 911Call 911 if you have any of the following: Severe weakness, dizziness, fainting, drowsiness, or confusion Chest pain or shortness of breath Heart beating fast, slow, or irregularlyWhen to seek medical adviceCall your healthcare provider right away if any of these occur: Nausea or vomiting Fever of 100.4F (38C) or higher, or as directed by your healthcare provider Unexpected weight gain or swelling in the legs, ankles, or around the eyes Decrease or absent urine output [id number] [employer]. [address] [place] [address]. All rights reserved. This information is not intended as asubstitute for professional medical care. Always follow your healthcare professional's instructions. You have been given the following a dditional information: Chronic Kidney Disease (CKD)(Electronically signed by Merritt Marrero, Physician 05/03/2019 04:17) Name Value Range Interpretation Code Description Data Kevin rce(s) Supporting Document(s) ID Date Data Source [id number] 05/01/2019 12:53:00 PM EST [facility] 1 Clinical Report - Nurses [facility] Emergency Department [address] [place] [address] Phone #: ext- [phone] 05/01/2019 12:38 Patient: CASSIDY VARGHESE Sex: M : 1940 Age: 78yTRIAGE Arrived by EMS. Historian: patient. Accompanied by family. ( felt weak and could not walk,, left large toe surgery ( has a woiund) done had pain and was given a nerve block and but on pain meds, today lethargic , appetite poor and has not had much to eat). Acuity: LEVEL 3. Chief Complaint: (weakness). Onset. (a few days). He has had a cough productive of sputum. 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 SEPSIS SCREEN: Negative (no infection suspected/documented). --12:45 05/01/19 Audra Hdz R.N. 12:39 05/01/19. HR: 60. RR: 20. O2 saturation: 97% on room air. Temp: 96.9 F (oral). Pain level now: 0/10. --12:45 05/01/19 Audra Hdz R.N. 13:30 05/01/19. BP: 180/93. MAP: 122. --19:25 05/01/19 Katie Whitt R.N. Weight: 85.2 kg stated. Height/Length: 68 inches Per Patient. BMI: 28.6. --12:38 05/01/19 Audra Hdz R.N. Medications Albuterol Sulfate Inhalation. Allopurinol Oral (Tablet 100 mg) 1 tablet, daily as needed. Aspir-81 Oral, daily. Calcium Acetate Oral 667 mg, 3x a day. Omeprazole Oral 20 mg, daily. Renvela Oral (Tablet 800 mg) 1 tablet, 3x a day. Uloric Oral 40 mg, daily. --12:56 05/01/19 Audra Hdz R.N. Epogen Injection (Solution 38245 unit/mL), once a week. --13:29 05/01/19 Audra Hdz R.N. Heparin Sodium (Porcine) Injection (Solution 1000 unit/mL), once a week. --13:30 05/01/19 Audra Hdz R.N. Isosorbide Mononitrate ER Oral (Tablet Extended Release 24 Hour 60 mg) 1 tablet, daily. --13:31 05/01/19 Audra Hdz R.N. Metoprolol Succinate ER Oral (Tablet Extended Release 24 Hour 100 mg) 1 tablet, daily. --13:31 05/01/19 Audra Hdz R.N. Mupirocin External. --13:31 05/01/19 uAdra Hdz R.N. Paricalcitol Oral (Capsule 1 mcg) 3 caps, monthly. --13:32 05/01/19 Audra Hdz R.N. Percocet Oral (Tablet 5-325 mg) 1 tablet, 3x a day as needed. --13:32 05/01/19 Audra Hdz R.N. Potassium Chloride ER Oral (Tablet Extended Release 20 meq), daily. --13:32 05/01/19 Audra Hdz R.N. 2 Clinical Report - Nurses [facility] Emergency Department [address] [place] [address] Phone #: ext- [phone] 05/01/2019 12:38 Patient: CASSIDY VARGHESE Sex: M : 1940 Age: 78ySensipar Oral (Tablet 60 mg), daily. --13:33 05/01/19 Audra Hdz R.N.Spiriva Respimat Inhalation, daily. --13:33 05/01/19 Audra Hdz R.N.Nortriptyline HCl Oral (Capsule 25 mg) 1 capsule, daily at bedtime. --13:34 05/01/19 Audra Hdz R.N.The following entry was struck by Audra Hdz R.N., 13:27 (05/01/19) Reason - other. Cinacalcet HCl Oral (Tablet 30 mg) 1 tablet, 3x a day. --12:56 05/01/19 Audra Hdz R.N.The following entry was struck and corrected by Audra Hdz R.N., 13:18 (05/01/19) Reason for correction -other(correction). Allopurinol Oral (Tablet 100 mg) 1 tablet, daily. --12:56 05/01/19 Audra Hdz R.N. .AllergiesIndocin. --12:56 05/01/19 Audra Hdz R.N.Amlodipine. --13:16 05/01/19 Audra Hdz R.N.Hydralazine. --13:16 05/01/19 Audra Hdz R.N.Minoxidil. --13:16 05/01/19 Audra Hdz R.N.Mircera. --13:16 05/01/19 Audra Hdz R.N.Norvasc. --13:17 05/01/19 Audra Hdz R.N.PROBLEMS:Nephropathy.Other Disease.Diabetes Mellitus.Renal Failure.Hypertension.Respiratory Failure.Prostate Cancer.Pulmonary Edema. --12:56 05/01/19 Audra Hdz R.N.ADDITIONAL SURGERIES:Bilateral Nephrectomy.Prostatectomy.Toe surgery. --12:56 05/01/19 Audra Hdz R.N.HistoryPAST MEDICAL HX: Immunizations: up-to-date and (had flu shot).SOCIAL HX: Smoker- current status unknown (quit 45 years ago). No alcohol use or drug use. He wasoffered HIV testing but declined and hepatitis C testing but declined. He has not traveled outside the [place]Infectious disease exposure: No infectious disease exposure. Patient is not a known carrier of tuberculosis,hepatitis, HIV, MRSA or VRE. Patient is not a known carrier of CRE.SELF HARM ASSESSMENT: Self harm assessment was performed. The patient answered "no" to thequestion(s) "Have you recently felt down, depressed, or hopeless?", "Do you have thoughts of harming orkilling yourself?", "Do you have a plan for harming or killing yourself?", "Have you recently had thoughtsabout harming or killing others?", "Do you have any dangerous items in your possession?", "Have you 3 Clinical Report - Nurses [facility] Emergency Department [address] [place] [address] Phone #: ext- [phone] 05/01/2019 12:38 Patient: CASSIDY VARGHESE Sex: M : 1940 Age: 78y noticed less interest or pleasure in doing things?", "Are you here because you tried to hurt yourself?" and "Have you ever tried to hurt yourself before today?". ABUSE ASSESSMENT: Abuse assessment. Abuse denied. No suspicion of abuse. No report of abuse. NUTRITIONAL RISK ASSESSMENT: The nutritional risk assessment revealed no deficiencies. FUNCTIONAL ASSESSMENT: Functional assessment: no impairments noted. LEARNING NEEDS ASSESSMENT: The learning needs assessment revealed no barriers. FALL RISK ASSESSMENT: Fall risk assessment completed. No risk factors identified. SKIN INTEGRITY ASSESSMENT: Skin integrity risk assessment completed. No skin integrity risk identified. --12:45 05/01/19 Audra Hdz R.N. Interventions Identification band on patient. To treatment room. --12:45 05/01/19 Wilder, Audra, R.N.PHYSICAL ASSESSMENT To room via stretcher. GENERAL / NEURO / PSYCH: Alert. Oriented X 4. Appears in distress. HEENT: Pupils equal, round and reactive to light. No facial asymmetry noted. Mucous membranes are pink. RESPIRATORY: Respirations not labored. Decreased breath sounds. Inspiratory wheezes in the right and left lung base anteriorly and mid-lung anteriorly. CVS: Normal sinus rhythm noted. Capillary refill less than 2 seconds. Pulses within normal limits. GI / : Abdomen soft and nontender and normal bowel sounds. SKIN: Skin intact. Skin is warm and dry. Normal skin turgor. ( wound noted to left great toe). --12:58 05/01/19 Mo Cordero RN.NURSING PROGRESS NOTES EKG time: (12:45 05/01/2019). EKG was performed by a nurse and shown to the ED physician. Patient gowned. Reassurance given. Two patient identifiers checked. Call light placed in reach. Side rails up. Bed placed in lowest position. Brakes of bed on. Patient ready for evaluation- ED physician notified. --12:46 05/01/19 Audra Hdz REvens. Finger stick glucose: 104; performed by nurse; result shown to the ED physician. --12:48 05/01/19 Audra Hdz R.N. 12:59 05/01/2019 Site #1 started via IV in the right wrist with an 20g angiocath, with aseptic technique and good blood return; two attempts. Saline lock flushed with 10 mL saline. --12:59 05/01/19 Mo Cordero RN Head of bed elevated. --12:59 05/01/19 Mo Cordero RN 4 Clinical Report - Nurses [facility] Emergency Department [address] [place] [address] Phone #: ext- [phone] 05/01/2019 12:38 --- Patient: CASSIDY VARGHESE Sex: M : 1940 Age: 78y13:19 05/01/2019 Duoneb Neb TX Nebulizer 1 unit dose given. Given by the nurse. Allergies verified andconfirmed 5 rights. Information reviewed with patient including reason for taking this medication. Verbalizesunderstanding. --13:19 05/01/19 Mo Cordero RN13:19 05/01/2019 Solu-Medrol (methylPREDNISolone Sodium Succ) IVP 125 mg given over 2 minute(s)via site #1. Allergies verified and confirmed 5 rights. IV patency established. IV site checked: no pain,redness, or swelling. IV flushed thoroughly pre- and post-medication administration. IVP given by RN.Information reviewed with patient including reason for taking this medication. Verbalizes understanding.--13:20 05/01/19 Mo Cordero RN13:24 05/01/19. BP: 175/87. MAP: 116. HR: 57. RR: 16. O2 saturation: 100%. Pain level now: 0/10.--13:25 05/01/19 Mo Cordero RN( pt sitting up doing a nebulizer, denies any pain or discomfort, his remains at the bedside). --13:251 NIC Cavazosatient ID band checked for patient name and birthdate: patient confirmed. Flu swab obtained by RN vianasal swab. Labeled in the presence of the patient and sent to lab. --13:34 05/01/19 Yves Cavazos ID band checked for patient name and birthdate: patient confirmed. Wound to left great toeswabbed for aerobic culture; collected by nurse. Specimen labeled in the presence of the patient. --13: Audra Hdz, ROneida13:47 05/01/2019 NITROGLYCERIN Topical Ointment 1 inch given. Applied to the affected area.Information reviewed with patient including reason for taking this medication. Verbalizes understanding. (toleft anterior chest). --13:49 05/01/19 oM Cordero RN( pt continues to rest, waiting for test results, no distress noted). --14:38 05/01/19 Mo Cordero RN14:37 05/01/19. BP: 170/76. MAP: 107. HR: 58. RR: 16. O2 saturation: 98%. Pain level now: 0/10.--14:38 05/01/19 Mo Cordero RN15:20 05/01/2019 Started 1 gm of ROCEPHIN (1GM/50ML) (cefTRIAXone Sodium) IVPB in bag #1 50 mL;at 100 mL/hr over 30 minute(s) via site #1. via IV pump. Allergies verified and confirmed 5 rights. IVpatency established. IV site checked: no pain, redness, or swelling. IV flushed thoroughly pre- andpost- medication administration. Information reviewed with patient including reason for taking thismedication. Verbalizes understanding. --15:22 05/01/19 Mo Cordero RN15:22 05/01/19. BP: 171/82. MAP: 111. HR: 59. RR: 16. O2 saturation: 96%. Pain level now: 0/10.--15:23 05/01/19 Mo Cordero RN16:58 05/01/19. BP: 158/91. MAP: 113. HR: 60. RR: 16. O2 saturation: 99%. Pain level now: 0/10.--16:59 05/01/19 Mo Cordero RN 5 Clinical Report - Nurses [facility] Emergency Department [address] [place] [address] Phone #: ext- [phone] 05/01/2019 12:38 [id number] Sex: [facility] : 1940 Age: 78y Patient returned from CT by stretcher with traffic control technician. --16: 59 05/01/19 Mo Cordero RN 16:44 05/01/19. Patient transported to CT by stretcher with traffic control technician. --16:59 05/01/19 Mo Cordero RN 15:00 05/01/19. BP: 154/78. MAP: 103. HR: 59. O2 saturation: 96%. --19:21 05/01/19 Katie Whitt R.N. 15:30 05/01/19. BP: 164/82. MAP: 109. HR: 59. RR: 15. O2 saturation: 97%. --19:21 05/01/19 Katie Whitt R.N. 16:00 05/01/19. BP: 178/77. MAP: 110. HR: 60. RR: 16. O2 saturation: 97%. --19:22 05/01/19 Katie Whitt R.N. 16:30 05/01/19. BP: 162/93. MAP: 116. HR: 60. RR: 16. O2 saturation: 98%. --19:22 05/01/19 Katie Whitt R.N. 17:30 05/01/19. BP: 147/84. MAP: 105. HR: 61. RR: 15. O2 saturation: 97%. --19:22 05/01/19 Katie Whitt R.N. 18:00 05/01/19. BP: 169/79. MAP: 109. HR: 62. RR: 15. O2 saturation: 97%. --19:22 05/01/19 Katie Whitt R.N. 18:30 05/01/19. BP: 161/86. MAP: 111. HR: 63. RR: 15. O2 saturation: 97%. --19:23 05/01/19 Katie Whitt R.N. 15:50 05/01/2019 ROCEPHIN (1GM/50ML) IVPB via IV site #1 Discontinued: bag #1 completed. Total amount infused: 50 mL. IV patency established. IV site checked: no pain, redness, or swelling. IV flushed thoroughly. --19:25 05/01/19 Katie Whitt R.N.DISPOSITION / DISCHARGE Transferred to [facility]. Provided to EMS and transfer facility via paper and fax. Transported via ambulance by EMS with IV. Report was given to a nurse via a phone call. Report included information regarding patient's care, treatment and condition, current vital signs and critical labs. Report included treatment information regarding medications given or pending. All questions were answered. Report was acknowledged and care was transferred. ( report was given and pt just returned from CT and per Dr Marrero, no need to wait for final CT report, call and give nurse to nurse and call EMS for transport). --17:25 05/01/19 Mo Cordero RN 17:23 05/01/19. BP: 158/91. MAP: 113. HR: 61. RR: 16. O2 saturation: 99%. Temp: 98.8 F. Pain level now: 0/10. --17:25 05/01/19 Mo Cordero RN Report was given. All questions were answered. Report was acknowledged and care was transferred. 6 Clinical Report - Nurses [facility] Emergency Department [address] [place] [address] Phone #: ext- [phone] 05/01/2019 12:38 --- Patient: CASSIDY VARGHESE Sex: M : 1940 Age: 78y (Kaitlyn ARRIAGA). --17:26 05/01/19 Mo Cordero RN Departure time: late entry - 19:20 05/01/2019. ( This was via EMS cuff, attempted multiple time by EMS and this telegraphic typewriter operator chief to obtain manual however extremely difficult to hear and can only use right arm. MD aware of VS and is okay with transfer.). --19:24 05/01/19 Katie Whitt R.N. 19:15 05/01/19. BP: 189/94. MAP: 125. HR: 75. RR: 17. O2 saturation: 97% on room air. Pain level now: 0/10. --19:24 05/01/19 Katie Whitt R.N.Locked/Released at 05/01/2019 19:26 by Katie Whitt R.N. Name Value Range Interpretation Code Description Data Kevin rce(s) Supporting Document(s) ID Date Data Source [id number] 05/01/2019 12:53:00 PM EST [facility] 1 Clinical Report - Physicians/Mid Levels [facility] Emergency Department [address] [place] [address] Phone #: ext- [phone] 05/01/2019 12:38 Patient: CASSIDY VARGHESE Sex: M : 1940 Age: 78y Time Seen: 12:47 05/01/2019. Arrived- By ambulance. Historian- EMS personnel. Disposition decision: 15:41 05/01/2019.HISTORY OF PRESENT ILLNESS Chief Complaint: DYSPNEA, COUGH and WEAKNESS. ( Pt. very weak and unstable on feet). This started 3 days ago and is still present and worsening. It was abrupt in onset. When seen in the E.D., it was almost gone. Modifying factors- worsened by movement, walking, cough and deep breaths. The patient has had loss of appetite, fatigue, muscle aches, decreased urine output and weakness. No weight loss, headache or visual disturbance. Denies sleep problem. Similar symptoms previously. (for 3 days). Recent medical care: Not recently seen/assessed.REVIEW OF SYSTEMSNo fever, sore throat, sinus drainage, chest pain or abdominal pain. No nausea, vomiting, diarrhea, blackstools or bloody stools. No chills, skin rash, back pain, calf pain or headache. No blackouts or doublevision. The patient has had nasal congestion, a cough and difficulty with urination (No urine). He hashad mild difficulty breathing at rest. He has had difficulty with ambulation (Generalized weakness). It hasbeen associated with weakness.PAST HISTORYPast history not negative. See nurses notes. Hypertension. Diabetes mellitus. Heart disease. Lungdisease. Renal disease. GI disease. Other disease. Nephropathy / Renal FailureCOPDCHF / Pulmonary edemaGERDGoutRenal Cell CA. Surgeries: Prostatectomy. (Bilateral Nephrectomy). Medications: Nortriptyline HCl Oral (Capsule 25 mg) 1 capsule, daily at bedtime. Spiriva Respimat Inhalation, daily. Sensipar Oral (Tablet 60 mg), daily. Potassium Chloride ER Oral (Tablet Extended Release 20 meq), daily. Percocet Oral (Tablet 5-325 mg) 1 tablet, 3x a day as needed. Paricalcitol Oral (Capsule 1 mcg) 3 caps, monthly. Mupirocin External. Metoprolol Succinate ER Oral (Tablet Extended Release 24 Hour 100 mg) 1 tablet, daily. 2 Clinical Report - Physicians/Mid Levels [facility] Emergency Department [address] [place] [address] Phone #: ext- [phone] 05/01/2019 12:38 Patient: CASSIDY VARGHESE Sex: M : 1940 Age: 78y Isosorbide Mononitrate ER Oral (Tablet Extended Release 24 Hour 60 mg) 1 tablet, daily. Heparin Sodium (Porcine) Injection (Solution 1000 unit/mL), once a week. Epogen Injection (Solution 53326 unit/mL), once a week. Albuterol Sulfate Inhalation. Allopurinol Oral (Tablet 100 mg) 1 tablet, daily as needed. Aspir-81 Oral, daily. Calcium Acetate Oral 667 mg, 3x a day. Omeprazole Oral 20 mg, daily. Renvela Oral (Tablet 800 mg) 1 tablet, 3x a day. Uloric Oral 40 mg, daily. Allergies: Amlodipine. Hydralazine. Indocin. Minoxidil. Mircera. Norvasc.SOCIAL HISTORYFormer smoker. No alcohol use or drug use. No recent travel.ADDITIONAL NOTESThe nursing notes have been reviewed with agreement regarding the chief complaint, HPI, ROS, PMH andpatient medications and allergies.PHYSICAL EXAMVital Signs: 05/01/2019 13:24 BP: 175/87. MAP: 116. HR: 57. RR: 16. O2 saturation: 100%. Pain levelnow: 0/10.05/01/2019 12:39 HR: 60. RR: 20. O2 saturation: 97% on room air. Temp: 96.9 F. Pain level now: 0/10.Have been reviewed and appear to be correct. Hypertensive. Bradycardic. Respiratory rate normal.Temperature normal. Oxygen saturation normal.Appearance: Alert. Anxious. Appears to be in pain. Patient in moderate distress. In distress.Eyes: Pupils equal, round and reactive to light. Eyes normal inspection.ENT: Nose normal. Pharynx abnormal. Dry mucous membranes present.Neck: Normal inspection. Neck supple.CVS: Normal heart rate and rhythm. Heart sounds normal. Pulses normal.Respiratory: No respiratory distress. Breath sounds abnormal. Mildly decreased air movementbilaterally. Painless inspiration. Chest nontender.Abdomen: No visible injury. Soft and nontender. Bowel sounds normal. No organomegaly. No mass.(CAPD site.).Back: Normal inspection.Skin: Skin warm and dry. Normal skin color. No rash. Normal skin turgor.Extremities: Extremities exhibit normal ROM. No lower extremity edema. (Wound on tip of L great toe - lateral and distal aspect.). 3 Clinical Report - Physicians/Mid [facility] Emergency Department [address] [place] [address] Phone #: ext- [phone] 05/01/2019 12:38 Patient: CASSIDY VARGHESE Sex: M : 1940 Age: 78y Neuro: Oriented X 3. Motor deficit noted. He has generalized weakness. No sensory deficit.LABS, X-RAYS, AND EKGLaboratory Tests: Laboratory tests have been ordered, with results reviewed and considered in themedical decision making process. Influenza Nasal A B: (MIKE: 05/01/2019 13:34) ( MsgRcvd 05/01/2019 13:59) Final results Test Result Flag Units (Reference) INFLUENZA A NEGATIVE (NORMAL: NEGAT INFLUENZA B NEGATIVE (NORMAL: NEGAT INFLUENZA A REENTER NEGATIVE (NORMAL: NEGAT INFLUENZA B REENTER NEGATIVE (NORMAL: NEGAT PROCEDURAL CONTROL VALID KIT LOT # _[id number] 05/01/19.1 359.NH . KIT EXP DATE _02/02/20 05/01/19.1359.NH .The Influenza A utilizing an isothermal nucleic acid amplification technology for thequalitative detection of influenza A and B viral RNA.Negative results do not preclude influenza virus infection and should not beused as the sole basis for diagnosis, treatment or other patient managementdecisions. Troponin-T: (MIKE: 05/01/2019 13:07) ( [facility] 05/01/2019 13:45) Final results Test Result Flag Units (Reference) TROPONIN T 0.09 NG/ML (0.00 - 0.10) TROPONIN T0.1 ng/ml Recommended as the clinical threshold value forTroponin T. PTT: (MIKE: 05/01/2019 13:07) ( [facility] 05/01/2019 13:27) Final results Test Result Flag Units (Reference) PTT 29.7 SECONDS (24.8 - 36.7) PT/INR: (MIKE: 05/01/2019 13:07) ( [facility] 05/01/2019 13:27) Final results Test Result Flag Units (Reference) PROTIME 13.2 SECONDS (11.0 - 15.5) INR 0.99 (0.93 - 1.23) \\BLDo\\INR INTERPRETATION\\BLDx\\ Therapeutic range for Coumadin and related oral anticoagulants. -International Normalized Ratio (INR): 2.0 - 3.0 for Venous Thrombosis, Pulmonary Embolus, Tissue heart valves, Acute TN, Atrial Fibrillation, Valvular heart disease and recurrent Systemic Embolism. -International Normalized Ratio (INR): 2.5 - 3.5 for Mechanical Prosthetic valve. Lipase: (MIKE: 05/01/2019 13:07) ( [facility] 05/01/2019 13:43) Final results Test Result Flag Units (Reference) LIPASE 33 U/L (13 - 60) Lactic Acid: (MIKE: 05/01/2019 13:07) ( MsgRcvd 05/01/2019 13:24) Final results Test Result Flag* * Units (Reference) LACTIC ACID 1.6 MMOL/L (0.2 - 2.2) BNP: (MIKE: 05/01/2019 13:07) ( MsgRcvd 05/01/2019 13:45) Final results Test Result Flag Units (Reference) BNP 01610 H PG/ML (0 - 450) CBC w Diff: (MIKE: 05/01/2019 13:07) ( RigRcvd 05/01/2019 13:24) Final results Test Result Flag Units (Reference) CBC W/AUTOMATED DIFF COMPLETE BLOOD COUNT WBC 7.7 10/uL (4.2 - 11.0) RBC 3.59 L 10/uL (4.50 - 6.30) HEMOGLOBIN 11.6 L g/dL (14.0 - 16.0) 4 Clinical Report - Physicians/Mid Levels [facility] Emergency Department [address] [place] [address] Phone #: ext- [phone] 05/01/2019 12:38 Patient: CASSIDY VARGHESE Sex: M : 1940 Age: 78y HEMATOCRIT 34.2 L % (41.0 - 51.0) MCV 95.3 H fL (80.0 - 94.0) MCH 32.3 pg (27.0 - 34.0) MCHC 33.9 g/dL (31.0 - 36.0) RDW 15.4 H % (11.5 - 14.8) PLATELETS 238 10/uL (150 - 450) MPV 9.9 fL (7.4 - 10.4) NEUT 49.4 % (37.0 - 80.0) LYMPH 22.7 L % (25.0 - 40.0) MONO 8.0 % (3.0 - 8.0) EOS 19.0 H % (0.0 - 7.0) BASO 0.5 % (0.0 - 2.0) %IG 0.4 H % (0.0 - 0.0) %NRBC 0.0 % (0.0 - 0.0) #NEUT 3.79 10/uL (2.00 - 6.90) #LYMPH 1.74 10/uL (0.60 - 3.40) #MONO 0.61 10/uL (0.00 - 0.90) #EOS 1.46 H 10/uL (0.00 - 0.70) #BASO 0.04 10/uL (0.00 - 0.20) #IG 0.03 10/uL (0.00 - 0.10) #NRBC 0.00 10/uL (0.00 - 0.00) MANUAL DIFF NOT INDICATED RBC MORPH NOT INDICATEDCMP: (MIKE: 05/01/2019 13:07) ( MsgRcvd 05/01/2019 13:45) Final results Test Result Flag Units (Reference) COMPREHENSIVE METABOLIC PANEL COMPREHENSIVE METABOLIC PANEL SODIUM 133 L mEq/L (134 - 153) POTASSIUM 3.4 L mEq/L (3.6 - 5.0) CHLORIDE 90 L mEq/L (98 - 107) CO2 28 MEQ/L (22 - 30) GLUCOSE 118 H MG/DL (65 - 110) BUN 23 H MG/DL (7 - 21) CREATININE 11.1 HH MG/DL (0.7 - 1.5) BUN/CREAT 2 L (8 - 27) TOTAL PROTEIN 6.2 L G/DL (6.3 - 8.2) ALBUMIN 3.7 L G/DL (3.9 - 5.0) GLOBULIN 2.5 GM/DL (2.4 - 3.2) A/G RATIO 1.5 (0.8 - 2.0) CALCIUM 11.0 H MG/DL (8.4 - 10.2) TOTAL BILI 0.7 MG/DL (0.2 - 1.3) ALKALINE PHOS 74 U/L (38 - 126) SGOT/AST 10 U/L (5 - 40) SGPT/ALT 13 U/L (7 - 56) ANION GAP 15.0 mmol/L (8.0 - 16.0) AGE 78 yrs NON-AA GFR 5 mL/min AFR AMER GFR 6 mL/min Male GFR Interprentation 20-49 yrs >60 mL/min Obqbff31-00 yrs >56 mL/min Normal 60-69 yrs >49 mL/min Normal 70-79yrs>42 mL/min Normal 80 and above >35 mL/min Normal Female GFRInterpretation 20-39 yrs >60 mL/min Normal 40-49 yrs >58 mL/minNormal 50-59 yrs >51 mL/min Normal 60-69 yrs >45 mL/min Tvgtgt00-94 yrs >39 mL/min Normal 80 and above >32 mL/min NormalCPK: (MIKE: 05/01/2019 13:07) ( [facility] [place] 13:43) Final results Test Result Flag Units (Reference) CPK 62 U/L (30 - 170)D-Dimer: (MIKE: 05/01/2019 13:07) ( RigRcvd 05/01/2019 13:28) Final results Test Result Flag Units (Reference) D-DIMER QUANT 0.71 H ug/mL (0.27 - 0.50)Chest Portable 1 View: (MIKE: 05/01/2019 12:54) ( [facility] [place] 05/01/2019 14:57) In Progress 5 Clinical Report - Physicians/Mid Levels [facility] Emergency Department [address] [place] [address] Phone #: ext- [phone] 05/01/2019 12:38 Patient: CASSIDY VARGHESE Sex: M : 1940 Age: 78y Exam CHEST PORTABLE [facility] [address] [place] [address] PHONE: [phone] FAX: [phone] N dhruv .................. : ABIMAEL Fair Acct Number.................. : [id number] ROOM. ................. : [facility] MR Number ................... : [id number] Stay type ............. : E/R Discharge Date......... ... : Admit Date ......... : 05/01/19 Admit Phys .................... : ELIDA DE OLIVEIRA Date of ....... : 1940 Family Phys ................... : UNKNOWN Phone .................. : [phone] Age ................................ : 78 Film# .................. .:[id number] Sex ................................. : M Unsigned transcriptions are preliminary reports and do not represent a medical or legal document CHEST PORTABLE [id number] COMPLETE:05/01/19 12:54 52114 Reason(s): Congestion Shortness of Breath PORTABLE CHEST X-RAY: HISTORY: Congestion. COMPARISON: 07/19/18 FINDINGS: The cardiac and mediastinal silhouettes appear normal and the lungs are clear. The bones and soft tissues are normal. The upper abdomen is unremarkable. IMPRESSION: No acute disease identifiable. Electronically Reviewed and Signed By DCTNAME , SIGNDATE, KVNG Transcribe Initials: DALE , Transcribe Date: 05/01/19 14:29, Dictation Date: <<REPDIST>> Page 1 of 1 . Note - Tests: (CXR - NAD (Radiologist) EKG - Sinus rhythm with 1st degree AV block and occas. PVCs, LAD, old septal infarct).PROGRESS AND PROCEDURESCourse of Care: 15:37 May 01 2019. Patient is stable. 15:39 May 01 2019. Pt. is diffusely weak and having pain in L great toe. He is a chronic ambulatory peritoneal dialysis pt. and is having progressive cough. Due to his illness, he is too weak to ambulate on his own and his cannot support him physically. I have spoken with Dr. Bills (Accepting Hospitalist) and we will be transferring the pt. to [facility] by ambulance. 6 Clinical Report - Physicians/Mid Levels [facility] Emergency Department [address] [place] [address] Phone #: ext- [phone] 05/01/2019 12:38 Patient: CASSIDY VARGHESE Sex: M : 1940 Age: 78y Critical care performed (130 minutes). Time is exclusive of separately kameron lable procedures. Time includes: direct patient care, patient reassessment, coordination of patient care, interpretation of data (laboratory data and pulse oximetry), review of patient's medical records, medical consultation, family consultation regarding treatment decisions and documentation of patient care- see progress notes. Procedures included in critical care time: peripheral IV placement and phlebotomy- see progress notes. Disposition: Benefits, risks and alternatives to transfer explained to patient and spouse. Transferred to [facility]. Summary of care (CCDA) provided to transport team, EMS, patient, family and transfer facility via paper and digital media. 15:41 May 01 2019 Transfer to [facility] by ambulance as per Dr. Bills (Accepting Hospitalist). UTI (catheter associated) was not present prior to transfer. Pressure ulcer was not present prior to transfer. Vascular infection (catheter associated) was not present prior to transfer. Surgical site infection was not present prior to transfer. An object left in surgery was not present prior to transfer. Blood incompatibility was not present prior to transfer. Air embolism was not present prior to transfer.CLINICAL IMPRESSION Acute generalized weakness. Severe chronic renal failure- end stage disease (Bilateral nephrectomies). Cellulitis of the left great toe. No foreign body present. Uncontrolled essential hypertension.(Electronically signed by Merritt Marrero, Physician 05/03/2019 04:17) Name Value Range Interpretation Code Description Data Kevin rce(s) Supporting Document(s) ID Date Data Source [id number] 05/01/2019 12:53:00 PM [facility] for CASSIDY VARGHESE VisitID: [id number] Date: 7:28wound culture sent to [facility] via fax and telegraphic typewriter operator chief called to verifity that pt was still a pt on 4PAV(Electronically signed by Audra Hdz R.N. 05/04/2019 7:28) Name Value Range Interpretation Code Description Data Kevin rce(s) Supporting Document(s) ID Date Data Source [id number] 05/03/2019 01:12:00 AM [facility] [address] [place] [address] RESPIRATORY CARE REPORT ==== ---------NAME------- NUMBER SEX AGE ADMIT DISC. XRAY# F/C TYPEGROCE CASSIDY Fair [id number] M [id number] 05/01/19 05/01/19 [id number] E/R DATE OF : 1940 M/R# [id number] #: [id number] TR-03 LOCATION: EMERGENCY DEPT [facility] [address] COMP LETE:05/02/19 10:49 23084 PHYSICIAN: ELIDA DE OLIVEIRA Name Value Range Interpretation Code Description Data Kevin rce(s) Supporting Document(s) ID Date Data Source [id number] 2019 11:04:00 AM EST [facility] [address] [place] [address] PHONE: [phone] FAX: [phone] Name .................. : ABIMAEL Fair Acct Number.................. : [id number] ROOM. ................. : TR-03 Number ................... : [id number] Stay type ............. : E/R Discharge Date......... ... : 05/01/19 Admit Date ......... : 05/01/19 Admit Phys .................... : ELIDA DE OLIVEIRA Date of ....... : 1940 Family Phys ................... : UNKNOWN Phone .................. : [phone] Age ................................ : 78 Film# .................. .:[id number] Sex ................................. : M Unsigned transcriptions are preliminary reports and do not represent a medical or legal document CT ABD & PELV W/[place] ORAL W/[place] [address] COMPLETE:05/01/19 18:52 [facility] [id number] Reason(s): Nausea CT OF THE ABDOMEN AND PELVIS WITHOUT CONTRAST: INDICATION: Nausea. FINDINGS: There is normal noncontrast CT appearance of the liver, spleen, pancreas and adrenal glands. The bilateral tulalip kidneys are not visualized. They may be completely atrophied versus surgically removed. No gallbladder wall thickening or biliary dictation dilatation. The visualized bowel is normal in caliber. There is mild diffuse diverticulosis without evidence of diverticulitis. The bladder is surgically absent. The pelvis organs appear normal. No acute osseous abnormality. No lymphadenopathy. There is mild to moderate free fluid in the abdomen, likely due to intraperitoneal dialysis. The intraperitoneal dialysis catheter is visualized from the left lower quadrant approach. Mild atherosclerotic disease is noted in the aorta and branch vessels. IMPRESSION: 1. Mild diverticulosis without diverticulitis. 2. Evidence of peritoneal dialysis. 3. No acute intra-abdominal process. Page 1 of 2 [place] [address] PHONE: [phone] FAX: [phone] Name .................. : ABIMAEL Fair Acct Number.................. : [id number] ROOM. ................. : TR-03 Number ................... : [id number] Stay type ............. : E/R Discharge Date......... ... : 05/01/19 Admit Date ......... : 05/01/19 Admit Phys .................... : ELIDA DE OLIVEIRA Date of ....... : 1940 Family Phys ................... : UNKNOWN Phone .................. : [phone] Age ................................ : 78 Film# .................. .:[id number] Sex ................................. : M Unsigned transcriptions are preliminary reports and do not represent a medical or legal document CT ABD & PELV W/[place] W/[place] [address] COMPLETE:05/01/19 18:52 [facility] [id number] Reason(s): Nausea While performing the above CT examination, radiation dose reduction was accomplished utilizing automated exposure control, adjusting of the mA and kV based on the patient's body size and/or the use of imperative reconstructive techniques. CT dose: 1153.9 mGycm Electronically Reviewed and Signed By Azael Cutler M.D. , 05/02/19 11:04, [facility] Transcribe Initials: DALE , Transcribe Date: 05/01/19 22:13, Dictation Date: Copy for: EMERGENCY DEPT via modem Copy for: 710 MED REC DISCHARGED Page 2 of 2 Name Value Range Interpretation Code Description Data Kevin rce(s) Supporting Document(s) ID Date Data Source [id number] 2019 10:14:00 AM [facility] [address] [place] [address] PHONE: [phone] FAX: [phone] Name .................. : ABIMAEL Fair Acct Number.................. : [id number] ROOM. ................. : TR-03 Number ................... : [id number] Stay type ............. : E/R Discharge Date......... ... : 05/01/19 Admit Date ......... : 05/01/19 Admit Phys .................... : ELIDA DE OLIVEIRA Date of ....... : 1940 Family Phys ................... : UNKNOWN Phone .................. : [phone] Age ................................ : 78 Film# .................. .:[id number] Sex ................................. : M Unsigned transcriptions are preliminary reports and do not represent a medical or legal document CT HEAD W/O CONTRAST [id number] COMPLETE:05/01/19 18:52 [facility] [address] Reason(s): Dizziness CT OF THE HEAD WITHOUT CONTRAST: HISTORY: Dizziness. FINDINGS: No intra-axial or extra-axial collections of fluid. Ventricles and sulci unremarkable. No midline shift or mass effect. Visualized paranasal sinuses and mastoid air cells unremarkable. IMPRESSION: No acute intracranial process. While performing the above CT examination, radiation dose reduction was accomplished utilizing automated exposure control, adjusting of the mA and kV based on the patient's body size and/or the use of imperative reconstructive techniques. CT dose: 857.7 mGycm Electronically Reviewed and Signed By Robby Lott MD , 05/02/19 10:14, [facility] Transcribe Initials: DALE , Transcribe Date: 05/01/19 21:11, Dictation Date: Copy for: EMERGENCY DEPT via [facility] Copy for: 710 MED REC DISCHARGED Page 1 of 1 Name Value Range Interpretation Code Description Data Kevin rce(s) Supporting Document(s) ID Date Data Source [id number] 2019 10:12:00 AM EST [facility] [address] [place] [address] PHONE: [phone] FAX: [phone] Name .................. : ABIMAEL Fair Acct Number.................. : [id number] ROOM. ................. : TR-03 Number ................... : [id number] Stay type ............. : E/R Discharge Date......... ... : Admit Date ......... : 05/01/19 Admit Phys .................... : VENERUS BR Date of ....... : 1940 Family Phys ................... : UNKNOWN Phone .................. : [phone] Age ................................ : 78 Film# .................. .:[id number] Sex ................................. : M Unsigned transcriptions are preliminary reports and do not represent a medical or legal document CHEST PORTABLE [id number] COMPLETE:05/01/19 12:54 [id number] Reason(s): Congestion JIHAN BLE CHEST X-RAY: HISTORY: Congestion. COMPARISON: 07/19/18 FINDINGS: The cardiac and mediastinal silhouettes appear normal and the lungs are clear. The bones and soft tissues are normal. The upper abdomen is unremarkable. IMPRESSION: No acute disease identifiable. Electronically Reviewed and Signed By Robby Lott MD , 05/02/19 10:12, [facility] Transcribe Initials: DZ , Transcribe Date: 05/01/19 14:29, Dictation Date: Copy for: EMERGENCY DEPT via modem Copy for: 710 MED REC DISCHARGED Page 1 of 1 Name Value Range Interpretation Code Description Data Kevin rce(s) Supporting Document(s) ID Date Data Source [id number] 05/06/2019 06:19:00 PM [facility] [id number] GREAT TOESP DESC: LEFT GREAT T OEMODERATE STAPH SPP. COAGULASE NEGATIVE PROBABLE NORMAL SKINFLORANO SENSITIVITIES DONE Name Value Range Interpretation Code Description Data Kevin rce(s) Supporting Document(s) Bacteria identified in Blood by Culture [facility] NO GROWTH AFTER 5 DAYS ID Date Data Source [id number] 05/07/2019 02:15:00 PM [facility] Name Value Range Interpretation Code Description Data Kevin rce(s) Supporting Document(s) CULTURE BLOOD [facility] Ho spital _CULTURE BLOOD_ [place] [address] CLIA# [id number] SEE SCANNED REPORT{ PRELIM ID Date Data Source [id number] 05/04/2019 09:13:00 PM [facility] Name Value Range Interpretation Code Description Data Kevin rce(s) Supporting Document(s) CULTURE WOUND [facility] Ho spital .WOUND CULTURE_{ SPECIMEN KEVIN RCE : [place] [address] CLIA# [id number] SEE SCANNED REPORT Result: ID Date Data Source [id number] 05/01/2019 01:59:00 PM [facility] Value Range Interpretation Code Description Data Kevin rce(s) Supporting Document(s) Influenza virus A Ag [Presence] in Nasopharynx by Immunoassa y NEGATIVE NORMAL: NEGATIVE [facility] Influenza virus B Ag [Presence] in Nasopharynx by Immunoassa y NEGATIVE NORMAL: NEGATIVE [facility] NEGATIVENEGATIVE PROCEDURAL CO NTROL VALID KIT LOT # _[id number] 05/01/19.1359.AZ . KIT EXP DATE _02/02/20 05/01/19.1359.AZ .The Influenza A & B assay is a rapid molecular in vitro diagnostic testutilizing an isothermal nucleic acid amplification technology for thequalitative detection of influenza A and B viral RNA.Negative results do not preclude influenza virus infection and should not beused as the sole basis for diagnosis, treatment or other patient managementdecisions. ID Date Data Source [id number] 05/07/2019 02:15:00 PM [facility] Value Range Interpretation Code Description Data Kevin rce(s) Supporting Document(s) CULTURE BLOOD [facility] spital _CULTURE BLOOD_{ PRELIM TEST PERFORMED AT [address] [address] CLIA# [id number] SEE SCANNED REPORT ID Date Data Source [id number] 05/01/2019 01:44:00 PM [facility] Value Range Interpretation Code Description Data Kevin rce(s) Supporting Document(s) COMPREHENSIVE METABOLIC PANEL [facility] COMPREHENSIVE METABOLIC PANEL Sodium [Moles/volume] in Serum or Plasma 133 mEq/L 134 - 153 L [facility] Potassium [Moles/volume] in Serum or Plasma 3.4 mEq/L 3.6 - 5.0 L [facility] Chloride [Moles/volume] in Serum or Plasma 90 mEq/L 98 - 107 L [facility] Carbon dioxide, total [Moles/volume] in Serum or Plasma 28 MEQ/L 22 - 30 [facility] Glucose [Mass/volume] in Serum or Plasma 118 MG/DL 65 - 110 H [facility] BUN 23 MG/DL 7 - [address] [facility] al Creatinine [Mass/volume] in Serum or Plasma 11.1 MG/DL 0.7 - 1.5 HH [facility] BUN/CREAT 2 8 - [address] [facility] al Protein [Mass/volume] in Serum or Plasma 6.2 G/DL 6.3 - 8.2 L [facility] Albumin [Mass/volume] in Serum or Plasma 3.7 G/DL 3.9 - 5.0 L [facility] Globulin [Mass/volume] in Serum by calculation 2.5 GM/DL 2.4 - 3.2 [facility] A/G RATIO 1.5 0.8 - 2.0 [facility] Calcium [Mass/volume] in Serum or Plasma 11.0 MG/DL 8.4 - 10.2 H [facility] Bilirubin.total [Mass/volume] in Serum or Plasma 0.7 MG/DL 0.2 - 1.3 [facility] Alkaline phosphatase [Enzymatic activity/volume] in Serum or Plasma 74 U/L 38 - 126 [facility] Aspartate aminotransferase [Enzymatic activity/volume] in Serum or Plasma 10 U/L 5 - 40 [facility] Alanine aminotransferase [Enzymatic activity/volume] in Seru m or Plasma 13 U/L 7 - 56 [facility] Anion gap 3 in Serum or Plasma 15.0 mmol/L 8.0 - 16.0 [facility] 78 [facility] AFR AMER GFR 6 mL/min [facility] Hos pital Male GFR In terprentation 20-49 yrs >60 mL/min Normal 50-59 yrs >56 mL/min Normal 60-69 yrs >49 mL/min Normal 70-79yrs >42 mL/min Normal 80 and above >35 mL/min Normal Female GFR Interpretation 20-39 yrs >60 mL/min Normal 40-49 yrs >58 mL/min Normal 50-59 yrs >51 mL/min Normal 60-69 yrs >45 mL/min Normal 70-79 yrs >39 mL/min Normal 80 and above >32 mL/min Normal ID Date Data Source [id number] 05/01/2019 01:43:00 PM [facility] Name Value Range Interpretation Code Description Data Kevin rce(s) Supporting Document(s) BNP 14445 PG/ML 0 - 450 H [facility] Hosp ital ID Date Data Source [id number] 05/01/2019 01:43:00 PM [facility] Name Value Range Interpretation Code Description Data Kevin rce(s) Supporting Document(s) TROPONIN T 0.09 NG/ML 0.00 - 0.10 [facility] spital TROPONIN T0.1 ng/ml Recommended as the c linical threshold value forTroponin T. ID Date Data Source [id number] 05/01/2019 01:41:00 PM [facility] Name Value Range Interpretation Code Description Data Kevin rce(s) Supporting Document(s) Creatine kinase [Enzymatic activity/volume] in Serum or Plasma 6 2 U/L 30 - 170 [facility] ID Date Data Source [id number] 05/01/2019 01:40:00 PM [facility] Name Value Range Interpretation Code Description Data Kevin rce(s) Supporting Document(s) Lipase [Enzymatic activity/volume] in Serum or Plasma 33 U/L 13 - 60 [facility] ID Date Data Source [id number] 05/01/2019 01:28:00 PM [facility] Name Value Range Interpretation Code Description Data Kevin rce(s) Supporting Document(s) Fibrin D-dimer FEU [Mass/volume] in Platelet poor plasma 0.71 ug /mL 0.27 - 0.50 H [facility] ID Date Data Source [id number] 05/01/2019 01:25:00 PM [facility] Name Value Range Interpretation Code Description Data Kevin rce(s) Supporting Document(s) Prothrombin time (PT) 13.2 SECONDS 11.0 - 15.5 [facility] INR in Platelet poor plasma by Coagulation assay 0.99 0.93 - 1. 23 [facility] \\BLDo\\INR INTERPRETATION\\BLDx\\ Therapeutic range for Coumadin and related oral anticoagulants. - International Normalized Ratio (INR): 2.0 - 3.0 for Venous Thrombosis, Pulmonary Embolus, Tissue heart valves, Acute [place], Atrial Fibrillation, Valvular heart disease and recurrent Systemic Embolism. -International Normalized Ratio (INR): 2.5 - 3.5 for Mechanical Prosthetic valve. ID Date Data Source [id number] 05/01/2019 01:25:00 PM [facility] Name Value Range Interpretation Code Description Data Kevin rce(s) Supporting Document(s) aPTT in Blood by Coagulation assay 29.7 SECONDS 24.8 - 36.7 [facility] ID Date Data Source [id number] 05/01/2019 01:19:00 PM [facility] Name Value Range Interpretation Code Description Data Kevin rce(s) Supporting Document(s) Lactate [Moles/volume] in Serum or Plasma 1.6 MMOL/L 0.2 - 2.2 [facility] ID Date Data Source [id number] 05/01/2019 01:19:00 PM [facility] Name Value Range Interpretation Code Description Data Kevin rce(s) Supporting Document(s) CBC W/AUTOMATED DIFF [facility] COMPLETE BLOOD COUNT Leukocytes [#/volume] in Blood by Automated count 7.7 10^3/uL 4.2 - 1 1.0 [facility] Erythrocytes [#/volume] in Blood by Automated count 3.59 10^6/uL 4. 50 - 6.30 L [facility] Hemoglobin [Mass/volume] in Blood 11.6 g/dL 14.0 - 16.0 L [facility] Hematocrit [Volume Fraction] of Blood by Automated count 34.2 % 4 1.0 - 51.0 L [facility] Erythrocyte mean corpuscular volume [Entitic volume] by Auto mated count 95.3 fL 80.0 - 94.0 H [facility] Erythrocyte mean corpuscular hemoglobin [Entitic mass] by Automated count 32.3 pg 27.0 - 34.0 [facility] Erythrocyte mean corpuscular hemoglobin concentration [Mass/volume] by Automated count 33.9 g/dL 31.0 - 36.0 [facility] Erythrocyte distribution width [Ratio] by Automated count 15.4 % 11.5 - 14.8 H [facility] Platelets [#/volume] in Blood by Automated count 238 10^3/uL 150 - 45 0 [facility] Platelet mean volume [Entitic volume] in Blood by Automated count 9.9 fL 7.4 - 10.4 [facility] Neutrophils/100 leukocytes in Blood by Automated count 49.4 % 37. 0 - 80.0 [facility] Lymphocytes/100 leukocytes in Blood by Manual count 22.7 % 25.0 - 40.0 L [facility] Monocytes/100 leukocytes in Blood by Automated count 8.0 % 3.0 - 8.0 [facility] Eosinophils/100 leukocytes in Blood by Automated count 19.0 % 0.0 - 7.0 H [facility] Basophils/100 leukocytes in Blood by Automated count 0.5 % 0.0 - 2.0 [facility] %IG 0.4 % 0.0 - 0.[address] [facility] al %NRBC 0.0 % 0.0 - 0.0 [facility] al Neutrophils [#/volume] in Blood by Automated count 3.79 10^3/uL 2.00 - 6.90 [facility] Lymphocytes [#/volume] in Blood by Automated count 1.74 10^3/uL 0.60 - 3.40 [facility] Monocytes [#/volume] in Blood by Automated count 0.61 10^3/uL 0.00 - 0.90 [facility] Eosinophils [#/volume] in Blood by Automated count 1.46 10^3/uL 0.00 - 0.70 H [facility] Basophils [#/volume] in Blood by Automated count 0.04 10^3/uL 0.00 - 0.20 [facility] #IG 0.03 10^3/uL 0.00 - 0.10 [facility] H ospital #NRBC 0.00 10^3/uL 0.00 - 0.00 [facility] H ospital MANUAL DIFF NOT INDICATED [facility] RBC MORPH NOT INDICATED [facility] sp[facility] ID Date Data Source [id number] 04/14/2019 02:17:00 PM EST [facility] Name Value Range Interpretation Code Description Data Kevin rce(s) Supporting Document(s) [facility] WOUND CULTURE [facility] _WOUND CULTURE_{ SPECIME N SOURCE : Result: Procedure Social History Code Duration Value Status Description Data Source(s ) Alcohol intake 05/08/2020 12:00:00 AM EST Not Currently completed [facility] Cigarette pack-years 05/08/2020 12:00:00 AM EST UNK completed [facility] Cigarettes smoked current (pack per day) - Reported 05/08/19 12:00:00 AM EST UNK completed [facility] Smoking 05/08/2020 12:00:00 AM EST Former smoker completed Former smoker [facility] Alcohol intake 2020 12:00:00 AM EST Not Currently completed [facility] Cigarette pack-years 2020 12:00:00 AM EST UNK completed [facility] Cigarettes smoked current (pack per day) - Reported 05/02/19 12:00:00 AM EST UNK completed [facility] Smoking 2020 12:00:00 AM EST Former smoker completed Former smoker [facility] Alcohol intake 04/15/2020 12:00:00 AM EST Yes completed [facility] Smoking 04/15/2020 12:00:00 AM EST Former smoker completed Former smoker [facility] Smoking 03/30/2020 09:30:00 AM EST Denies Ever Smoked complete d Denies Ever Smoked [facility] Smoking 02/21/2020 12:00:00 AM EST Patient is a former smoker completed Patient is a former smoker [facility] ([facility]) Smoking 02/09/2020 03:55:00 PM EST Denies Ever Smoked complete d Denies Ever Smoked [facility] Smoking 08/24/2019 12:00:00 AM EDT Never Smoker completed Never S moker eCW1 ([facility]) Smoking 08/24/2019 12:00:00 AM EDT Never Smoker completed Never S moker eCW1 ([facility]) Vital Signs ID Date Data Source UNK Name Value Range Interpretation Code Description Data Source(s) Body mass index (BMI) [Ratio] 24.0 kg/m2 24.0 k g/m2 [facility] ([facility], ) Body weight 160.00 [lb_av] 160.00 [lb_av] [facility] ([facility], ) Body height 68.5 [in_i] 68.5 [in_i] [facility] ([facility]) 5'8.50" Diastolic blood pressure 67 mm[Hg] 67 mm[Hg] [facility] ([facility]) Systolic blood pressure 98 mm[Hg] 98 mm[Hg] [facility] Body surface area Derived from formula 1.[address] [facility] ([facility]) Body weight 72.[address] [facility] ([facility]) Byron body weight 154 [lb_av] 154 [lb_av] [facility] T ([facility]) Oxygen saturation in Arterial blood by Pulse oximetry 97 % 97 % [facility] Respiratory rate 22 /min 22 /min [facility] Body temperature 36.[address] [facility] Heart rate 82 /min 82 /min [facility] Diastolic blood pressure 59 mm[Hg] 59 mm[Hg] [facility] Systolic blood pressure 108 mm[Hg] 108 mm[Hg] [facility] Body mass index (BMI) [Ratio] 24.33 kg/m2 24.33 kg/m2 [facility] Body weight 72.[address] [facility] Body height 172.[address] [facility] Oxygen saturation in Arterial blood by Pulse oximetry 100 % 100 % [facility] Body mass index (BMI) [Ratio] 24.33 kg/m2 24.33 kg/m2 [facility] Body weight 72.[address] [facility] Body height 172.[address] [facility] Heart rate 95 /min 95 /min [facility] Diastolic blood pressure 73 mm[Hg] 73 mm[Hg] 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 Respiratory rate 16 /min 16 /min [facility] Diastolic blood pressure 60 mm[Hg] 60 mm[Hg] [facility] Systolic blood pressure 102 mm[Hg] 102 mm[Hg] [facility] Deprecated Oxygen saturation in Capillary blood by Oximetry 98 % Normal (applies to non-numeric results) 98 % [facility] Heart rate 81 min Normal (applies to non-numeric resul ts) 81 min [facility] Diastolic blood pressure 77 mm[Hg] Normal (applies to non-numeric results) 77 mm[Hg] [facility] Systolic blood pressure 118 mm[Hg] Normal (applies t o non-numeric results) 118 mm[Hg] [facility] Body temperature 37 reema Normal (applies to non-numeric results) 37 reema [facility] Respiratory rate 18 min Normal (applies to non-numeric results) 18 min [facility] Body weight Measured 76.3 kg Normal (applies to non-num romel results) 76.3 kg [facility] Body height 171.9072 cm Normal (applies to non-numeric res ults) 171.9072 cm [facility] Body mass index (BMI) [Ratio] 25.58 kg/m2 No rmal (applies to non-numeric results) 25.58 kg/m2 [facility] Body surface area Derived from formula 1.84 m2 1.84 m2 [facility] Body weight 70.[address] [facility] ([facility]) Byron body weight 154 [lb_av] 154 [lb_av] [facility] ([facility]) Body mass index (BMI) [Ratio] 23.2 kg/m2 23.2 k g/m2 [facility] ([facility]) Body weight 155.00 [lb_av] 155.00 [lb_av] [facility] Body height 68.5 [in_i] 68.5 [in_i] [facility] 5'8.50" Diastolic blood pressure 60 mm[Hg] 60 mm[Hg] [facility] ([facility]) Systolic blood pressure 104 mm[Hg] 104 mm[Hg] [facility] Diastolic blood pressure--sitting 80 mm[Hg] 80 mm[Hg] [facility] large cuff, Ra Systolic blood pressure--sitting 148 mm[Hg] 148 mm[Hg] [facility]) large cuff, Ra Heart rate 86 /min 86 /min [facility] Body height 68 [in_i] 68 [in_i] [facility] ([facility] 5'8" Body temperature 36.7 reema Normal (applies to non-numeric results) 36.7 reema [facility] Respiratory rate 18 min Normal (applies to non-numeric results) 18 min [facility] Deprecated Oxygen saturation in Capillary blood by Oximetry 99 % Normal (applies to non-numeric results) 99 % [facility] Heart rate 97 min Normal (applies to non-numeric resul ts) 97 min [facility] Diastolic blood pressure 84 mm[Hg] Normal (applies to non-numeric results) 84 mm[Hg] [facility] Systolic blood pressure 128 mm[Hg] Normal (applies t o non-numeric results) 128 mm[Hg] [facility] Body weight Measured 80.4 kg Normal (applies to non-num romel results) 80.4 kg [facility] Body height 171.9072 cm Normal (applies to non-numeric res ults) 171.9072 cm [facility] Body mass index (BMI) [Ratio] 23.83 kg/m2 No rmal (applies to non-numeric results) 23.83 kg/m2 [facility] Byron body weight 154 [lb_av] 154 [lb_av] [facility] ([facility]) Body height 68.5 [in_i] 68.5 [in_i] [facility] ([facility]) 5'8.50" Diastolic blood pressure 50 mm[Hg] 50 mm[Hg] [facility] ([facility]) Systolic blood pressure 88 mm[Hg] 88 mm[Hg] [facility] ([facility]) Body height 68.5 [in_i] 68.5 [in_i] [facility] ([facility]) 5'8.50" Heart rate 53 /min 53 /min [facility] ([facility]) Diastolic blood pressure 64 mm[Hg] 64 mm[Hg] [facility] ([facility]) Systolic blood pressure 84 mm[Hg] 84 mm[Hg] [facility] ([facility]) Body weight 76.[address] [facility] ([facility]) Body mass index (BMI) [Ratio] 25.2 kg/m2 25.2 k g/m2 [facility] ([facility]) Body weight 168.00 [lb_av] 168.00 [lb_av] [facility] ([facility]) Stated Body height 68.5 [in_i] 68.5 [in_i] [facility] ([facility]) 5'8.50" Diastolic blood pressure 60 mm[Hg] 60 mm[Hg] [facility] ([facility]) Systolic blood pressure 100 mm[Hg] 100 mm[Hg] [facility] ([facility]) Body weight 74.[address] [facility] ([facility]) Body mass index (BMI) [Ratio] 24.7 kg/m2 24.7 k g/m2 [facility] ([facility]) Body weight 165.00 [lb_av] 165.00 [lb_av] [facility] ([facility]) Stated Body height 68.5 [in_i] 68.5 [in_i] [facility] ([facility]) 5'8.50" Diastolic blood pressure 60 mm[Hg] 60 mm[Hg] [facility] ([facility]) Systolic blood pressure 88 mm[Hg] 88 mm[Hg] [facility] ([facility]) Body weight 80.[address] [facility] ([facility]) Body mass index (BMI) [Ratio] 26.5 kg/m2 26.5 k g/m2 [facility] ([facility]) Body weight 177.00 [lb_av] 177.00 [lb_av] [facility] ([facility]) per patient Body height 68.5 [in_i] 68.5 [in_i] [facility] 5'8.50" Diastolic blood pressure 68 mm[Hg] 68 mm[Hg] [facility] ([facility]) Systolic blood pressure 110 mm[Hg] 110 mm[Hg] [facility] ([facility]) Diastolic blood pressure--sitting 56 mm[Hg] 56 mm[Hg] [facility] ([facility]) adult cuff, Ra Systolic blood pressure--sitting 128 mm[Hg] 128 mm[Hg] [facility] ([facility]) adult cuff, Ra Heart rate 87 /min 87 /min [facility] ([facility]) Body mass index (BMI) [Ratio] 26.5 kg/m2 26.5 k g/m2 [facility] ([facility]) Body height 68 [in_i] 68 [in_i] [facility] ([facility] 5'8" Body weight 174.00 [lb_av] 174.00 [lb_av] [facility] ([facility]) Diastolic blood pressure 50 mm[Hg] 50 mm[Hg] eCW1 ([facility]) Systolic blood pressure 91 mm[Hg] 91 mm[Hg] e CW1 ([facility]) Body temperature 98.5 [degF] 98.5 [degF] eCW1 ( [facility]) Respiratory rate 18 /min 18 /min eCW1 ([facility]) Heart rate 86 /min 86 /min eCW1 ([facility]) Body mass index (BMI) [Ratio] 26.45 kg/m2 26.45 kg/m2 eCW1 ([facility]) Body height 68 [in_us] 68 [in_us] eCW1 ([facility]) Body weight Measured 174 [lb_av] 174 [lb_av] eC W1 ([facility]) Diastolic blood pressure 68 mm[Hg] 68 mm[Hg] eCW1 ([facility]) Systolic blood pressure 145 mm[Hg] 145 mm[Hg] e CW1 ([facility]) Body temperature 98.8 [degF] 98.8 [degF] eCW1 ( [facility]) Respiratory rate 18 /min 18 /min eCW1 ([facility]) Heart rate 63 /min 63 /min eCW1 ([facility]) Body mass index (BMI) [Ratio] 27.06 kg/m2 27.06 kg/m2 eCW1 ([facility]) Body height 68 [in_us] 68 [in_us] eCW1 ([facility]) Body weight Measured 178 [lb_av] 178 [lb_av] eC W1 ([facility]) Body weight 78.019 kg 78.019 kg [facility] Body mass index (BMI) [Ratio] 25.8 kg/m2 25.8 k g/m2 [facility] ([facility], ) Body weight 172.00 [lb_av] 172.00 [lb_av] AD [facility] ([facility], ) stated weight Body height 68.5 [in_i] 68.5 [in_i] [facility] ([facility], ) 5'8.50" Diastolic blood pressure 60 mm[Hg] 60 mm[Hg] [facility] ([facility], ) Systolic blood pressure 114 mm[Hg] 114 mm[Hg] M EDENT ([facility], ) Diastolic blood pressure 92 mm[Hg] 92 mm[Hg] eCW1 ([facility]) Systolic blood pressure 159 mm[Hg] 159 mm[Hg] e CW1 ([facility]) Body temperature 97.4 [degF] 97.4 [degF] eCW1 ( [facility]) Respiratory rate 18 /min 18 /min eCW1 ([facility]) Heart rate 80 /min 80 /min eCW1 ([facility]) Body mass index (BMI) [Ratio] 27.06 kg/m2 27.06 kg/m2 eCW1 ([facility]) Body height 68 [in_us] 68 [in_us] eCW1 ([facility]) Body weight Measured 178 [lb_av] 178 [lb_av] eC W1 ([facility]) Body mass index (BMI) [Ratio] 25.24 kg/m2 25.24 kg/m2 eCW1 ([facility]) Body height 68 [in_us] 68 [in_us] eCW1 ([facility]) Body weight Measured 166 [lb_av] 166 [lb_av] eC W1 ([facility]) Body weight 78.019 kg 78.019 kg [facility] ([facility], ) Body mass index (BMI) [Ratio] 25.8 kg/m2 25.8 k g/m2 [facility] ([facility], ) Body weight 172.00 [lb_av] 172.00 [lb_av] [facility] T ([facility], ) Body height 68.5 [in_i] 68.5 [in_i] [facility] ([facility], ) 5'8.50" Body temperature 96.2 [degF] 96.2 [degF] [facility] ([facility], ) Diastolic blood pressure 60 mm[Hg] 60 mm[Hg] [facility] ([facility], ) Systolic blood pressure 90 mm[Hg] 90 mm[Hg] M [place] ([facility], ) Body mass index (BMI) [Ratio] 25.69 kg/m2 25.69 kg/m2 eCW1 ([facility]) Body height 68 [in_us] 68 [in_us] eCW1 ([facility]) Body weight Measured 169 [lb_av] 169 [lb_av] eC W1 ([facility]) Diastolic blood pressure 63 mm[Hg] 63 mm[Hg] eCW1 ([facility]) Systolic blood pressure 117 mm[Hg] 117 mm[Hg] e CW1 ([facility]) Body temperature 98.2 [degF] 98.2 [degF] eCW1 ( [facility]) Respiratory rate 16 /min 16 /min eCW1 ([facility]) Heart rate 87 /min 87 /min eCW1 ([facility]) Body mass index (BMI) [Ratio] 25.69 kg/m2 25.69 kg/m2 eCW1 ([facility]) Body height 68 [in_us] 68 [in_us] eCW1 ([facility]) Body weight Measured 169 [lb_av] 169 [lb_av] eC W1 ([facility]) Diastolic blood pressure 66 mm[Hg] 66 mm[Hg] eCW1 ([facility]) Systolic blood pressure 117 mm[Hg] 117 mm[Hg] e CW1 ([facility]) Body temperature 97.8 [degF] 97.8 [degF] eCW1 ( [facility]) Respiratory rate 17 /min 17 /min eCW1 ([facility]) Heart rate 81 /min 81 /min eCW1 ([facility]) Body mass index (BMI) [Ratio] 27.21 kg/m2 27.21 kg/m2 eCW1 ([facility]) Body height 68 [in_us] 68 [in_us] eCW1 ([facility]) Body weight Measured 179 [lb_av] 179 [lb_av] eC W1 ([facility]) Body weight 80.741 kg 80.741 kg MEDENT ([facility]) Body mass index (BMI) [Ratio] 26.7 kg/m2 26.7 k g/m2 MEDENT ([facility]) Body weight 178.00 [lb_av] 178.00 [lb_av] MEDEN T ([facility]) Body height 68.5 [in_i] 68.5 [in_i] [facility] ([facility]) 5'8.50" Diastolic blood pressure 80 mm[Hg] 80 mm[Hg] [facility] Systolic blood pressure 121 mm[Hg] 121 mm[Hg] M EDENT ([facility]) Diastolic blood pressure 85 mm[Hg] 85 mm[Hg] eCW1 ([facility]) Systolic blood pressure 174 mm[Hg] 174 mm[Hg] e CW1 ([facility]) Body temperature 96.5 [degF] 96.5 [degF] eCW1 ( [facility]) Respiratory rate 16 /min 16 /min eCW1 ([facility]) Heart rate 76 /min 76 /min eCW1 ([facility]) Body mass index (BMI) [Ratio] 28.28 kg/m2 28.28 kg/m2 eCW1 ([facility]) Body height 68 [in_us] 68 [in_us] eCW1 ([facility]) Body weight Measured 186 [lb_av] 186 [lb_av] eC W1 ([facility]) Body weight 84.370 kg 84.370 [facility] Body mass index (BMI) [Ratio] 27.9 kg/m2 27.9 k g/m2 [facility] ([facility]) Body weight 186.00 [lb_av] 186.00 [lb_av] MEDEN T ([facility]) Body height 68.5 [in_i] 68.5 [in_i] [facility] ([facility]) 5'8.50" Patient Treatment Plan of Care Planned Activity Planned Date Details Description Data Source (s) COLLAGENASE 0.25 UNT/MG Topical Ointment [Santyl] 08/03/2019 12: 00:00 AM EDT eCW1 ([facility]) tiotropium 0.018 MG/ACTUAT Inhalant Powder [facility] Prednisone [address] [facility] Albuterol 0.833 MG/ML / Ipratropium [place] 0.167 MG/ML Inhalant So lution [facility] 12 HR Guaifenesin 600 MG Extended Release Oral Tablet [facility]
[2020-05-23] MEDS ORDERED: BUPIVACAINE/EPIN 0.5% 30 ML VIAL As Ordered ONE (09:13)
[2020-05-23] MEDS ORDERED: LIDOCAINE 2% 100MG/5ML SDV (FOR ANES.) As Ordered ONE (09:14)
[2020-05-23] MEDS ORDERED: MIDAZOLAM INJ 2MG/2ML VIAL (J2250 PER 1MG) As Ordered ONE (09:14)
[2020-05-23] MEDS ORDERED: ETOMIDATE INJ 20MG/10ML VIAL As Ordered ONE (09:14)
[2020-05-23] MEDS ORDERED: dexameTHASONE 4 MG/ML 1ML VIAL (J1100 PER 1MG) As Ordered ONE (09:14)
[2020-05-23] MEDS ORDERED: ROCURONIUM BROMIDE 50 MG/5 ML VIAL As Ordered ONE (09:14)
[2020-05-23] MEDS ORDERED: fentaNYL 100 MCG/2 ML INJECTION (J3010) As Ordered ONE ×2 (09:14→13:13)
[2020-05-23] MEDS ORDERED: propofoL 200 MG/20 ML VIAL As Ordered ONE (09:14)
[2020-05-23] MEDS ORDERED: ONDANSETRON 4MG/2ML VIAL As Ordered ONE (09:14)
[2020-05-23] MEDS ORDERED: MIDO5TA PO (09:20)
[2020-05-23 09:26] LABS: HEMATOCRIT 27.5 % (42.0-52.0); HEMOGLOBIN 8.6 g/dl (13.5-17.5); MEAN CORPUSCULAR HEMOGLOBIN 30.4 pg (27.0-33.0); MEAN CORPUSCULAR HGB CONC 31.3 g/dl (32.0-36.5); MEAN CORPUSCULAR VOLUME 97.2 fl (80.0-96.0); PLATELET COUNT, AUTOMATED 242 10^3/uL (150-450); RED BLOOD COUNT 2.83 10^6/uL (4.30-6.10); WHITE BLOOD COUNT 7.3 10^3/uL (4.0-10.0)
[2020-05-23 09:36] LABS: INR 1.06
[2020-05-23 09:56] LABS: CALCIUM LEVEL 8.8 MG/DL (8.8-10.2); CREATININE FOR GFR 10.8 MG/DL (0.70-1.30); POTASSIUM SERUM 4.5 MEQ/L (3.5-5.1)
[2020-05-23] MEDS ORDERED: ceFAZolin 2 GM/D5W 50 ML IV BAG (J0690 PER 500MG) As Ordered ONE (10:07)
[2020-05-23] MEDS ORDERED: PHENYLEPHRINE 10MG/ML 1ML VIAL (J2370 PER 1) As Ordered ONE (11:22)
[2020-05-23] MEDS ORDERED: PHENYLephrine 500MCG 5ML (100MCG/ML) SYRINGE As Ordered ONE (11:22)
[2020-05-23] MEDS ORDERED: SUGAMMADEX SODIUM 500 MG/5 ML VIAL (BRIDION) As Ordered ONE (12:18)
--- NOTE | 2020-05-23 12:24 | ROOPDOC ---
[facility] Report Of Operation Report of Operation DATE OF PROCEDURE: 05/23/20 PREPROCEDURE DIAGNOSES: Atherosclerosis of the [place] arteries with gangrene right foot POSTPROCEDURE DIAGNOSES: Same PROCEDURE: 1. US guided access left radial artery with arterial line placement 2. Right below knee amputation SURGEON: Fallon Canseco MD ANESTHESIA: GETA and local INDICATION FOR PROCEDURE: This is a very pleasant 80-year-old gentleman with a long-standing history of heavily calcified arteries, microvascular severe peripheral vascular disease, gangrene of the left foot leading to a left below- knee amputation, now with gangrene of the right first toe and nonhealing ulcer of the right heel with severe foot pain. The patient says the pain keeps him on average day and night. He doesn't tolerate NSAIDs or narcotics, so he has no relief from the pain. He said he had the same pain in the left leg that was relieved with below-knee amputation. His microvascular disease is severe and resistant to intervention. No further revascularization option with available for the foot. After extensive discussions, the patient wishes to proceed with the below-knee amputation. He is high risk for surgery due to congestive heart failure and aortic valve stenosis. He has had a valvuloplasty, but there was only a mild improvement on his most recent echo. We went over the significant risks for general anesthesia, but the patient is adamant that he would like to proceed. I have discussed this case at length with his recovery engineer, his silverware etcher, and are anesthesia colleagues. The patient has been extensively counseled along with his partner, informed consent was obtained. He has extremely limited options for IV access, and lab draws are very problematic, therefore a left IJ port was placed yesterday and can be used for anesthesia. REPORT OF OPERATION: Patient was brought to the OR in stable condition and placed supine on the OR table. His left wrist was prepped and draped in a sterile fashion. A timeout was performed. Local anesthesia was administered to skin and subcutaneous tissue over the left radial artery. An arterial line was placed in the left radial artery ultrasound guidance. There was a good waveform. Sterile dressings were applied. General anesthesia and antibiotics were administered without complication. His right lower extremity was prepped and draped in a sterile fashion. A timeout was performed. A marking pen was used to tamera the incision at 14 cm distal to the tibial plateau. A tourniquet was placed above the knee. An Esmarch was used to exsanguinate the leg. The tourniquet was inflated to 250 mmHg, and the patient's systolic blood pressure was 90 mmHg. A transverse incision was made with the skin knife and then along posterior flap was created. Bovie cautery was used for hemostasis. We carried her incision down through the subcutaneous tissue and muscle anteriorly and circumferentially around the tibia. Periosteum was elevated proximally. We continued her dissection. Vascular structures were suture ligated and divided. We noticed copious bleeding from the venous and arterial system, and I felt the tourniquet was not going to be helpful due to the heavily calcified nature of the patient's vasculature. We therefore removed the tourniquet. We continued her dissection circumferentially around the fibula. We elevated soft tissue and transected the tibia and the fibula. The tibia was transected at 13 cm, the fibula was transected at 12 cm. The anterior surface of the tibia was beveled. We then used a rasp to smooth the edges of both bones. We then used Bovie cautery to excise the rest of the soft tissue of the lower leg and the lower leg was sent for pathology. Access muscle and tissue on the lower leg was removed. Nervous structures were high ligated and the perineural structures were injected with local anesthesia. Suture ligation Bovie cautery were used for further hemostasis. We irrigated with copious amounts of saline. The distal posterior flap was fashioned for tension-free closure. We irrigated a second time. The deep fascial tissue was approximated to the periosteum over the end of the tibia. 0 Vicryl thvesn-ab-racvq sutures were used to attach the fascia to protect the bone. 2-0 Vicryl pjifsb-px-axbhk sutures were then used to appro ximate the fascia along the skin edges. Care was taken to make sure they were in the closure. Nylon mattress sutures were used to approximate the skin edges. Skin danielito were used to close skin between the mattress sutures. The incision was clean and dry. Xeroform, flaps, kerlix, and a 4 inch Kaleb wrap replaced as a final dressing. The patient was allowed to awaken from anesthesia and taken to recovery in stable condition. ESTIMATED BLOOD LOSS: Approximately 350 mL. SPECIMEN: Right lower leg and foot sent to pathology COMPLICATIONS: None. PLAN: We will admit the patient to our hospitalist service. We will ask our physical therapy and occupational therapy colleagues to see him and evaluate for an ARU admission once he has recovered sufficiently. He will have peritoneal dialysis per our nephrology team. We will monitor his hemoglobin. The patient has chronic anemia, and postop may need transfusion depending on morning hemoglobin. We will plan to place a femoral PermCath when the patient goes to rehabilitation for conversion to hemodialysis. 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 We did not want to place a femoral catheter before it was needed for use, thus we will hold off until he goes to rehabilitation. Analgesia as needed. The patient does not have an allergy to opioids as it is listed in his record. He and his significant other just try to avoid them, but postop he does require them for pain control. We will plan to restart his Plavix in a day or two. We will continue to follow closely. We appreciate the opportunity to participate in the care of this patient. FALLON CANSECO MD May 23, 2020 12:24
[2020-05-23] MEDS: fentaNYL 100 MCG/2 ML INJECTION (J3010) IV PRN ×3 (13:15→13:49)
[2020-05-23] MEDS ORDERED: ONDANSETRON 4MG/2ML VIAL IV PRN (14:00)
[2020-05-23] MEDS ORDERED: LR 1,000 ML IV SCH (14:00)
[2020-05-23] MEDS ORDERED: PERCOCET 5MG/325MG TAB PO PRN ×2 (15:15)
[2020-05-23] MEDS ORDERED: ONDANSETRON 4 MG TAB PO PRN (15:15)
[2020-05-23] MEDS ORDERED: ALBUTEROL SULFATE 2.5 MG/0.5 ML INH NEB SOLN NEB PRN (16:45)
[2020-05-23] MEDS ORDERED: OMEP1CAP73 PO (17:05)
[2020-05-23] MEDS ORDERED: COLA100C5 PO (17:05)
[2020-05-23] MEDS ORDERED: RENV2TAB PO (17:05)
[2020-05-23] MEDS ORDERED: PLAV1TAB2 PO (17:05)
[2020-05-23] MEDS ORDERED: NORT10CA2 PO (17:05)
[2020-05-23] MEDS ORDERED: ZIOPTAN OU (17:05)
[2020-05-23] MEDS ORDERED: SENS60TA PO (17:05)
[2020-05-23] MEDS ORDERED: POTA10CA32 PO (17:05)
[2020-05-23] MEDS ORDERED: ATOR40TA75 PO (17:05)
--- NOTE | 2020-05-23 17:18 | HPEPDOC ---
[facility] Medical History & Physical Date of Admission May 23, 2020 Date of Service: May 23, 2020 Attending Physician: ZARIA MACIAS MD History and Physical CHIEF COMPLAINT: Status post right below-knee amputation HISTORY OF PRESENT ILLNESS: 80-year-old male with an extensive past medical history including end-stage renal disease on peritoneal dialysis, status post bilateral nephrectomy, coronary artery disease, congestive heart failure, aortic stenosis, hypertension, and severe peripheral vascular disease, is status post right BKA today. He is seen in PACU, having significant pain, but refusing opioids due to his belief that he is allergic. He has received opioids multiple times recently, including Intra-Op. He is otherwise doing reasonably well, without any complaints. He denies any chest pain, nausea, vomiting, abdominal pain or diarrhea. He has a significant cardiac history, recently evaluated by migrant leader prior to surgery, has EF of 20%, significant aortic stenosis, underwent valvuloplasty, no significant improvement and not a candidate for TAVR. 10 point review of system is negative so for above PAST MEDICAL HISTORY: 1. End-stage renal disease. 2. , Coronary artery disease. 3. Congestive heart failure. 4. Hypertension. 5. Aortic stenosis PAST SURGICAL HISTORY: 1. PD catheter placement. 2. Aortic valve valvuloplasty. 3. Left BKA. SOCIAL HISTORY: Previous smoker. Previous alcohol use. Denies drug use FAMILY HISTORY: Positive for heart disease ALLERGIES: Please see below. HOME MEDICATIONS: Please see below. PHYSICAL EXAMINATION: VITAL SIGNS: Please see below. GENERAL: No distress HEENT: Normocephalic, atraumatic, moist mucous membranes NECK: Supple CARDIOVASCULAR EXAMINATION: S1, S2, systolic murmur appreciated RESPIRATORY EXAMINATION: Diminished in the bases, no wheezing ABDOMINAL EXAMINATION: Soft, nontender, nondistended, positive bowel sounds EXTREMITIES: , Status post bilateral BKA SKIN: No rash NEUROLOGICAL EXAMINATION: Alert and oriented 3, no focal deficits PSYCHIATRIC EXAMINATION: Calm and cooperative LABORATORY DATA: See below. MICROBIOLOGY: Please see below. ASSESSMENT: 80-year-old male with extensive past medical history is being admitted after right BKA. PLAN: 1. Status post right BKA. Severe vascular disease with neuropathy, history of left BKA Doing well postop, pain control, opioids would be ideal but patient refusing at this time. Continue TCA for pain control. PT/OT, further management by vascular surgery. 2. End-stage renal disease. On peritoneal dialysis, last dialyzed 2 days ago. Continue Sensipar and Renvela with meals Continue midodrine for blood pressure support Nephrology consulted to assist with peritoneal dialysis. 3. Coronary artery disease. Along with severe peripheral vascular disease, continue aspirin, Plavix and statin. 4. Systolic heart failure. EF 20%. On recent evaluation. Currently stable, continue home regimen. 5. Aortic stenosis Status post valvuloplasty, not a candidate for TAVR DVT prophylaxis: Hold for today. GI prophylaxis: Home PPI Vital Signs Vital Signs Date Time Temp Pulse Resp B/P (MAP) Pulse Ox O2 Delivery O2 Flow Rate FiO2 05/23/20 14:30 71 20 129/66 (87) 100 Nasal Cannula 2 05/23/20 13:49 97.2 Laboratory Data Labs 24H Laboratory Tests 2 05/23/20 09:04: Nucleated Red Blood Cells % (auto) 0.0, Prothrombin Time 14.0, Prothromb Time International Ratio 1.06, Activated Partial Thromboplast Time 39.0H, Anion Gap 11, Glomerular Filtration Rate 6.0L, Calcium Level 8.8 CBC/BMP Laboratory Tests 05/23/20 09:04 Home Medications Scheduled Aspirin (Ecotrin) 81 Mg Tablet.dr, 81 MG PO DAILY Atorvastatin Calcium (Atorvastatin Calcium) 40 Mg Tablet, 40 MG PO QHS Budesonide/Formoterol (Symbicort 160-4.5 Mcg Inhaler) 6 Gm Hfa.aer.ad, 2 PUFF INH BID Cinacalcet HCl (Sensipar) 60 Mg Tablet, 60 MG PO 3XWP Clopidogrel Bisulfate (Clopidogrel) 75 Mg Tablet, 75 MG PO DAILY Epoetin [place] (Epogen) 20,000 Unit/1 Ml Vial, 20,000 UNIT INJ ASDIRECTED EVERY 2 WEEKS Magnesium Oxide (Magnesium) 400 Mg Capsule, 1 CAP PO DAILY for constipation Midodrine HCl (Midodrine HCl) 10 Mg Tablet, 10 MG PO BID for morning, afternoon Midodrine HCl (Midodrine HCl) 5 Mg Tablet, 5 MG PO QPM Nortriptyline HCl (Nortriptyline HCl) 10 Mg Capsule, 30 MG PO BID@0900,1800 Nut.tx.imp.renal Fxn,Lac-Reduc (Nepro Carb Steady) 237 Ml Liquid, 1 LIQ PO DAILY Omeprazole (Omeprazole) 20 Mg Capsule.dr, 40 MG PO DAILY Potassium Chloride (Potassium Chloride) 20 Meq Tab.er.prt, 10 MEQ PO DAILY Sevelamer Carbonate (Renvela) 800 Mg Tablet, 800 MG PO WM Scheduled PRN Albuterol Sulf (Albuterol Sulfate) 2.5 Mg/3 Ml Vial.neb, 1 VIAL NEB Q4HP PRN for wheezing Polyethylene Glycol 3350 (Miralax) 119 Gm Powder, 17 GM PO DAILY PRN for CONSTIPATION dilute in 8 ounces of water or juice Miscellaneous Medications Mupirocin (Mupirocin) 2 % Oint...g., 1 DOSE EXT for daily with dressing changes Allergies Coded Allergies: amlodipine (Verified Allergy, Unknown, 05/23/20) indomethacin (Verified Allergy, Unknown, 05/23/20) nifedipine (Verified Allergy, Unknown, 05/23/20) NSAIDS (Non-Steroidal Anti-Inflamma (Verified Adverse Reaction, Intermediate, RECTAL BLEEDING, 05/23/20) TAKES 81MG ASA AT HOME FINE hydralazine (Verified Adverse Reaction, Mild, ELEVATED BP, 05/23/20) minoxidil (Verified Adverse Reaction, Mild, SWELLING, 05/23/20) Opioids - Morphine Analogues (Verified Adverse Reaction, Unknown, DIALYSIS PT, 05/23/20) epoetin beta (Verified Adverse Reaction, Unknown, 05/23/20) Hyporesponsive gabapentin (Verified Adverse Reaction, Unknown, confusion, 05/23/20) A-FIB/CHADSVASC A-FIB History Current/History of A-Fib/PAF?: No ZARIA MACIAS MD May 23, 2020 16:43
[2020-05-23] MEDS: NORTRIPTYLINE 10 MG CAP PO PRN (18:30)
[2020-05-23] MEDS: CINACALCET 30 MG TAB (SENSIPAR) PO SCH (18:30)
[2020-05-23] MEDS: (RENVELA) SEVELAMER **CARBONate** 800 MG TAB PO SCH (18:30)
[2020-05-23] MEDS: SYMBICORT 160/4.5MCG INHALER 6GM INH SCH (20:21)
[2020-05-23] MEDS: ATORVASTATIN 20 MG TAB PO SCH (22:25)
[2020-05-23] MEDS: MIDODRINE 5 MG TAB PO SCH ×2 (22:25→22:26)
[2020-05-23] MEDS: SODIUM CHLORIDE 0.9% INJ 10 ML SYR IV PRN (22:26)
[2020-05-24] VITALS (9 sets, daily range): BP systolic 14–163; BP diastolic 77–86
[2020-05-24] MEDS: NORTRIPTYLINE 10 MG CAP PO PRN ×3 (02:33→22:02)
[2020-05-24] MEDS: SODIUM CHLORIDE 0.9% INJ 10 ML SYR IV PRN ×2 (06:14→16:05)
[2020-05-24 06:49] LABS: HEMOGLOBIN 7.2 g/dl (13.5-17.5); MEAN CORPUSCULAR HEMOGLOBIN 30.4 pg (27.0-33.0); MEAN CORPUSCULAR HGB CONC 31.3 g/dl (32.0-36.5); PLATELET COUNT, AUTOMATED 198 10^3/uL (150-450); RED BLOOD COUNT 2.37 10^6/uL (4.30-6.10); WHITE BLOOD COUNT 8.2 10^3/uL (4.0-10.0)
[2020-05-24] MEDS: SYMBICORT 160/4.5MCG INHALER 6GM INH SCH ×2 (07:20→19:48)
[2020-05-24] MEDS: ASPIRIN 81 MG ENTERIC TAB PO SCH (08:13)
[2020-05-24] MEDS: (RENVELA) SEVELAMER **CARBONate** 800 MG TAB PO SCH ×3 (08:14→18:16)
[2020-05-24] MEDS: MIDODRINE 5 MG TAB PO SCH ×3 (08:14→21:00)
[2020-05-24] MEDS: DOCUSATE SODIUM 100MG CAPSULE PO SCH (08:14)
[2020-05-24] MEDS: CLOPIDOGREL 75 MG TAB PO SCH (08:14)
[2020-05-24] MEDS: OMEPRAZOLE 20 MG CAP PO SCH (08:14)
[2020-05-24] MEDS: SODIUM CHLORIDE 0.9% INJ 10 ML SYR IV SCH (08:15)
[2020-05-24 08:19] LABS: ALBUMIN 2.6 GM/DL (3.2-5.2); ALT/SGPT 18 U/L (12-78); BILIRUBIN,TOTAL 0.2 MG/DL (0.2-1.0); BLOOD UREA NITROGEN 48 MG/DL (7-18); CALCIUM LEVEL 8.7 MG/DL (8.8-10.2); CARBON DIOXIDE LEVEL 28 MEQ/L (21-32); CHLORIDE LEVEL 102 MEQ/L (98-107); GLOMERULAR FILTRATION RATE 5.8 (>42); GLUCOSE, FASTING 108 MG/DL (70-100); MAGNESIUM LEVEL 1.9 MG/DL (1.8-2.4); PHOSPHORUS LEVEL 5.6 MG/DL (2.5-4.9); POTASSIUM SERUM 4.8 MEQ/L (3.5-5.1); SODIUM LEVEL 141 MEQ/L (136-145); TOTAL PROTEIN 5.7 GM/DL (6.4-8.2)
--- NOTE | 2020-05-24 12:09 | IPNPDOC ---
Date Seen The patient was seen on 05/24/20. Progress Note This is a very pleasant 80-year-old gentleman with long-standing history of distal peripheral vascular disease, status post left below-knee amputation, now with nonhealing wounds of the right foot in extreme pain, and he is now POD 1 status post right below-knee amputation. He is doing well today, but still complains of significant pain in the right BKA stump. I explained to him again that the first 2 days after amputation are usually the most painful, and he may need additional analgesia. The patient is resistant to this, but I tried to reassure him that he has tolerated narcotics fine in the past, and fine with his recent surgeries and procedures. It may be helpful for him to have additional narcotics over the next couple days. He is still resistant, we will leave this decision up to him. He is also having some trouble straightening his legs so we worked on this at the bedside today. I was able to completely straighten the knee, and I explained to him again that it is important for him to do this regularly so the muscles do not spasm and contract. If he gets a contracture at the knee, he will not be able to wear her prosthetic. It is important for him to continue working on this. We will put the knee immobilizer on possibly tomorrow or the next day, once his pain is better controlled. I removed the dressing. The incision is clean dry and intact. No significant drainage or bleeding is noted. We cleaned the skin thoroughly and Xeroform fluffs and kerlix were placed along with a 4 inch Kaleb wrap. The patient tolerated this well. He says his port is working well for blood draws and IV medication administration. We will plan on placing a femoral PermCath once he is closer to needing dialysis. We will follow closely. We appreciate the hospitalist's excellent care of this patient. VS, I&O, 24H, Fishbone Vital Signs/I&O Vital Signs Date Time Temp Pulse Resp B/P (MAP) Pulse Ox O2 Delivery O2 Flow Rate FiO2 05/24/20 11:57 97.7 94 17 136/77 97 Room Air 05/23/20 14:30 2 I&O- Last 24 Hours up to 6 AM 05/24/20 06:00 Intake Total 4820 ml Output Total 4100 ml Balance 720 ml Laboratory Data 24H LABS Laboratory Tests 2 05/24/20 06:28: Nucleated Red Blood Cells % (auto) 0.0, Anion Gap 11, Glomerular Filtration Rate 5.8L, Calcium Level 8.7L, Phosphorus Level 5.6H, Magnesium Level 1.9, Total Bilirubin 0.2, Aspartate Amino Transf (AST/SGOT) 23, Alanine Aminotransferase (ALT/SGPT) 18, Alkaline Phosphatase 81, Total Protein 5.7L, Albumin 2.6L, Albumin/Globulin Ratio 0.8 CBC/BMP Laboratory Tests 05/24/20 06:28 ELLA STEPHENSON MD May 24, 2020 12:09
--- NOTE | 2020-05-24 12:18 | CR ---
CONSULTATION DATE: 05/24/2020 REQUESTING PHYSICIAN: Dr. Darren Kenney CONSULTING PHYSICIAN: Dr. Tad Sequeira REASON FOR CONSULTATION: Management of end-stage renal disease on hemodialysis. CHIEF COMPLAINT: Patient was admitted yesterday after a right below-knee amputation. HISTORY OF PRESENT ILLNESS: Mr. Mauricio Mckinney is a 80-year-old male with past medical history of end-stage renal disease, on peritoneal dialysis, well known to nephrology service from previous hospitalizations and from our outpatient dialysis center as well. He has peripheral vascular disease, history of left below-knee amputation in the past, and he had right leg ischemia causing severe pain in the right foot. He was scheduled for outpatient right below-knee amputation. Initially the procedure was postponed because of severe systolic heart failure and severe aortic stenosis. In order to optimize him for the procedure, he got the balloon valvuloplasty done by cardiology at [place], so he was cleared for surgery. He underwent a right below-knee amputation by the vascular surgery at [facility]. He is admitted under the hospitalist service. Nephrology service has been on board for further help in the management of end-stage renal disease on hemodialysis. I saw and evaluated the patient today morning at the bedside. He was complaining of pain in the right below-knee amputation site stump. Otherwise he denies any active complaints. MEDICAL HISTORY: 1. End-stage renal disease, on hemodialysis. 2. History of hypertension in the past but nowadays he is hypotensive. 3. Newly diagnosed severe systolic congestive heart failure 4. Severe aortic stenosis status post balloon valvuloplasty, pending transcatheter aortic valve replacement (TAVR). 5. Anemia and end-stage renal disease. 6. Peripheral vascular disease. 7. Secondary hyperparathyroidism. 8. Chronic hypothyroidism nowadays. SURGICAL HISTORY: 1. Status post peritoneal dialysis (PD) catheter placement. 2. Status post balloon aortic valve valvuloplasty, which was done about a month ago. 3. History of left below-knee amputation in the past. 4. Status post a right below-knee amputation, which was done yesterday. ALLERGIES: He is allergic to NONSTEROIDAL ANTI-INFLAMMATORY DRUGS (NSAIDS), OPIOIDS, MORPHINE AND ITS ANALOGS, which make him very confused. He is allergic to AMLODIPINE, EPOETIN MARY, GABAPENTIN, HYDRALAZINE, and INDOMETHACIN. FAMILY HISTORY: No significant family history of end-stage renal disease requiring hemodialysis. SOCIAL HISTORY: Patient lives with his . He denies any smoking, illicit drug abuse, or alcohol abuse. REVIEW OF SYSTEMS: CONSTITUTIONAL: He denies any fevers or chills. He is just complaining of pain in the right leg. EYES: He denies any blurry vision or double vision. ENT: He denies any dysphagia or odynophagia. CARDIOVASCULAR: Reports severe heart failure and aortic stenosis and recently heart valvuloplasty, and he is pending TAVR. RESPIRATORY: He denies any shortness of breath. GASTROINTESTINAL: He denies any nausea or vomiting. GENITOURINARY: He denies any dysuria or hematuria. MUSCULOSKELETAL: He reports right leg pain. SKIN: He denies any rashes or ulcers. PSYCHIATRIC: He denies any depression or anxiety. HEMATOLOGIC/ONCOLOGIC: He denies any easy bleeding or bruising. He did have bleeding during the right below-knee amputation site procedure. CENTRAL NERVOUS SYSTEM: He denies any strokes or seizures. All other review of systems is negative. PHYSICAL EXAMINATION: GENERAL: Patient is awake, alert, oriented times three, moderate painful distress, lying in bed. VITAL SIGNS: Temperature is 98.1 degrees Fahrenheit, blood pressure 130/85, pulse is 84, respiratory rate of 17, saturating 97% on room air. Intake and output: There is no urine output recorded. He has bilateral hoopa nephrectomies done. HEAD AND NECK: Extraocular muscles intact. Pupils equal, round and reactive to light. Mucous membranes are moist. Neck is supple. There is no jugular venous distention (JVD). CARDIOVASCULAR: S1, S2, regular rate. No edema of the bilateral lower extremities. RESPIRATORY: Chest is clear to auscultation bilaterally. Bilateral equal air entry. No rales or rhonchi. ABDOMEN: Soft. Positive bowel sounds. He has a PD catheter. Exit site is clean. MUSCULOSKELETAL: Left below-knee amputation site covered with stocking and fresh right below-knee amputation covered with a dressing. CENTRAL NERVOUS SYSTEM: No focal neurologic deficit. Power is 5/5 in bilateral upper extremities. LABORATORY REVIEW: CBC showed a WBC 8.2, hemoglobin 7.2, platelets are 198. INR is 1.06 from yesterday. BMP today morning showed sodium 141, potassium 4.8, chloride 102, bicarbonate 28, BUN 48, creatinine is 11.1. Albumin 2.6. CURRENT INPATIENT MEDICATIONS: Patient's medications were all reviewed by myself. They include: - Proventil - aspirin 81 mg - Lipitor 40 mg - Sensipar 60 mg Tuesday, Tuesday, Tuesday - Plavix 75 mg by mouth daily - Colace 200 mg by mouth daily - heparin subcutaneous - midodrine 10 mg by mouth twice a day - nortriptyline 30 mg three times a day - omeprazole 20 mg by mouth daily - Zofran 4 mg as needed for nausea and vomiting - Renvela 800 mg by mouth with meals ASSESSMENT AND PLAN: 1. End-stage renal disease. Patient is peritoneal dialysis dependent. Continue current PD regimen at this time. Once patient is stable to go to rehabilitation, he will need a tunneled dialysis catheter placement to switch to hemodialysis. 2. Anemia and end-stage renal disease and recent loss of blood during procedure. Patient is going to get 1 unit of packed red blood cells (PRBC) transfusion. I am also starting the patient on Aranesp once a week. 3. Secondary hyperparathyroidism. Continue current dose of Sensipar 60 mg by mouth Tuesday, Tuesday, Tuesday. 4. 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 Continue current dose of Renvela 800 mg by mouth with meals. 5. Chronic hypotension. Continue current dose of midodrine. Blood pressure is acceptable at this time. 6. Peripheral vascular disease,S/p Rt BKA. Patient is currently on aspirin and Plavix. Continue statin. 7. Coronary artery disease. Patient had an angiogram done recently about 2 months ago at [place]. He had a distal left circumflex obstruction, which was not amenable to any stenting. Continue statins, aspirin, and Plavix. 8. Severe aortic stenosis. Patient had valvuloplasty done at [place], and once he recovers from right below-knee amputation he will have the TAVR procedure done. 9. Severe systolic congestive heart failure. Volume status is being optimized with peritoneal dialysis. Patient is not on any diuretics because he has bilateral hoopa nephrectomies. Thank you for involving me in the care of this patient. I shall be happy to follow the patient along with you tomorrow morning. [facility]
[2020-05-24 16:34] LABS: HEMATOCRIT 26.9 % (42.0-52.0); HEMOGLOBIN 8.4 g/dl (13.5-17.5)
--- NOTE | 2020-05-24 18:37 | IPNPDOC ---
Date Seen The patient was seen on 05/24/20. Progress Note SUBJECTIVE: Patient continues to have significant pain due to surgery, but refusing to take any opioids as he believes he is allergic to them. He is undergoing CAPD. No new complaints. PHYSICAL EXAMINATION: VITAL SIGNS: Please see below. GENERAL: No distress HEENT: Normocephalic, atraumatic, moist mucous membranes NECK: Supple CARDIOVASCULAR EXAMINATION: S1, S2, systolic murmur appreciated RESPIRATORY EXAMINATION: Diminished in the bases, no wheezing ABDOMINAL EXAMINATION: Soft, nontender, nondistended, positive bowel sounds EXTREMITIES: , Status post bilateral BKA SKIN: No rash NEUROLOGICAL EXAMINATION: Alert and oriented 3, no focal deficits PSYCHIATRIC EXAMINATION: Calm and cooperative LABORATORY DATA: See below. MICROBIOLOGY: Please see below. ASSESSMENT: 80-year-old male with extensive past medical history is being admitted after right BKA. PLAN: 1. Status post right BKA. Severe vascular disease with neuropathy, history of left BKA pain control, opioids would be ideal but patient refusing at this time. Continue TCA for pain control, will add Tylenol. PT/OT, further management by vascular surgery. 2. End-stage renal disease. On peritoneal dialysis, currently undergoing CAPD Continue Sensipar and Renvela with meals Continue midodrine for blood pressure support Nephrology following. 3. Coronary artery disease. Along with severe peripheral vascular disease, continue aspirin, Plavix and statin. 4. Systolic heart failure. EF 20% on recent evaluation. Currently stable, continue home regimen. 5. Aortic stenosis Status post valvuloplasty, not a candidate for TAVR DVT prophylaxis: Hold for today. GI prophylaxis: Home PPI VS, I&O, 24H, Dhavalbone Vital Signs/I&O Vital Signs Date Time Temp Pulse Resp B/P (MAP) Pulse Ox O2 Delivery O2 Flow Rate FiO2 05/24/20 18:00 97.3 88 17 140/80 (100) 98 Room Air 05/23/20 14:30 2 I&O- Last 24 Hours up to 6 AM 05/24/20 06:00 Intake Total 4820 ml Output Total 4100 ml Balance 720 ml Laboratory Data 24H LABS Laboratory Tests 2 05/24/20 06:28: Nucleated Red Blood Cells % (auto) 0.0, Anion Gap 11, Glomerular Filtration Rate 5.8L, Calcium Level 8.7L, Phosphorus Level 5.6H, Magnesium Level 1.9, Total Bilirubin 0.2, Aspartate Amino Transf (AST/SGOT) 23, Alanine Aminotransferase (ALT/SGPT) 18, Alkaline Phosphatase 81, Total Protein 5.7L, Albumin 2.6L, Albumin/Globulin Ratio 0.8 CBC/BMP Laboratory Tests 05/24/20 06:28 05/24/20 16:29 ZARIA MACIAS MD May 24, 2020 18:37
[2020-05-24] MEDS: ATORVASTATIN 20 MG TAB PO SCH (22:01)
[2020-05-24] MEDS: HEPARIN SOD (PORCINE) 5000UNITS/ML 1ML VIAL/SYRINGE SC SCH (22:01)
[2020-05-25 02:00] VITALS: BP 124/74
[2020-05-25] MEDS: SODIUM CHLORIDE 0.9% INJ 10 ML SYR IV PRN (05:43)
[2020-05-25 06:00] VITALS: BP 125/74
[2020-05-25 06:21] LABS: HEMATOCRIT 24.5 % (42.0-52.0); MEAN CORPUSCULAR HEMOGLOBIN 30.9 pg (27.0-33.0); MEAN CORPUSCULAR HGB CONC 32.7 g/dl (32.0-36.5); MEAN CORPUSCULAR VOLUME 94.6 fl (80.0-96.0); PLATELET COUNT, AUTOMATED 183 10^3/uL (150-450); RED BLOOD COUNT 2.59 10^6/uL (4.30-6.10)
[2020-05-25 06:58] LABS: CALCIUM LEVEL 8.4 MG/DL (8.8-10.2); CREATININE FOR GFR 10.7 MG/DL (0.70-1.30); POTASSIUM SERUM 4.6 MEQ/L (3.5-5.1)
[2020-05-25] MEDS: SYMBICORT 160/4.5MCG INHALER 6GM INH SCH ×2 (07:11→19:08)
[2020-05-25] MEDS: (RENVELA) SEVELAMER **CARBONate** 800 MG TAB PO SCH ×3 (08:00→17:57)
[2020-05-25] MEDS: SODIUM CHLORIDE 0.9% INJ 10 ML SYR IV SCH (08:49)
[2020-05-25] MEDS: CLOPIDOGREL 75 MG TAB PO SCH (08:50)
[2020-05-25] MEDS: ASPIRIN 81 MG ENTERIC TAB PO SCH (08:50)
[2020-05-25] MEDS: NORTRIPTYLINE 10 MG CAP PO PRN ×2 (08:50→20:05)
[2020-05-25] MEDS: MIDODRINE 5 MG TAB PO SCH ×2 (08:50→20:05)
[2020-05-25] MEDS: HEPARIN SOD (PORCINE) 5000UNITS/ML 1ML VIAL/SYRINGE SC SCH ×3 (08:50→20:04)
[2020-05-25] MEDS: DOCUSATE SODIUM 100MG CAPSULE PO SCH ×2 (08:50→09:00)
[2020-05-25] MEDS: OMEPRAZOLE 20 MG CAP PO SCH (08:50)
--- NOTE | 2020-05-25 11:43 | IPN ---
NEPHROLOGY PROGRESS NOTE DATE: 05/25/2020 SUBJECTIVE: Patient was seen and examined at the bedside today morning. He denies any problems with the peritoneal dialysis. He still complains of pain in the right below knee amputation site. He is afebrile and hemodynamically stable. At this time, I clarified his allergy to Mircera. He is not allergic, but there is history of hyporesponsiveness to Mircera and patient has received Aranesp in the past during hospitalizations and he did not have any reactions. OBJECTIVE: VITAL SIGNS: Temperature 98.3 degrees Fahrenheit, blood pressure 125/74, pulse 98, respiratory rate 20, saturating 100% on room air. INTAKE AND OUTPUT: There is no urine output recorded. Peritoneal dialysis (PD) output is recorded as 1350 mL. PHYSICAL EXAMINATION: GENERAL: Patient is awake, alert, oriented times three, laying in bed. HEAD AND NECK EXAM: Extraocular muscles intact. Pupils equally round and reactive to light. Mucous membranes are moist. Neck is supple. He has a left anterior chest wall [id number]. CARDIOVASCULAR: S1, S2. Regular rate. No edema of the lower extremities. RESPIRATORY: Chest is clear to auscultation bilaterally. Bilateral equal air entry. No rales or rhonchi. ABDOMEN: Soft. Positive bowel sounds. Left lower quadrant PD catheter. 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 CENTRAL NERVOUS SYSTEM ([employer]): No focal deficits. Power is 5/5 in bilateral upper extremities. LABORATORY REVIEW: CBC showed a WBC of 10, hemoglobin is 8, platelets are 183. BMP showed sodium 139, potassium 4.6, chloride 98, bicarbonate 29, BUN 48, creatinine 10.7. CURRENT INPATIENT MEDICATIONS: Patient's medications were all reviewed by myself. I have started the patient on Aranesp 200 mcg subcutaneous once a week. Midodrine has been changed to 10 mg by mouth twice a day. No other significant change in the medications today. ASSESSMENT AND PLAN: 1. End-stage renal disease. Patient is getting peritoneal dialysis. He is tolerating it well. Continue current regimen. When he is transferred to rehabilitation, he will need a tunneled dialysis catheter for hemodialysis. 2. Anemia in end-stage renal disease and recent blood loss. Patient is status post packed red blood cells transfusion. Hemoglobin is still 8. Aranesp has been started. If hemoglobin stays 8 or below, he will be given one more unit of packed red blood cells transfusion. 3. Chronic hypotension. Continue current dose of midodrine at 10 mg by mouth twice a day now. 4. Secondary hyperparathyroidism. Continue Sensipar. 5. Coronary artery disease. Continue aspirin, Plavix and statin. He is not a candidate for beta blockers because of low blood pressure. 6. Severe aortic stenosis. Patient is status post balloon valvuloplasty. He will get the transcatheter aortic valve replacement (TAVR) procedure done once he recovers from right below knee amputation. 7. Severe systolic congestive heart failure. Volume status is optimized with dialysis. Patient is aneuric because he has douglas nephrectomies.
[2020-05-25] MEDS ORDERED: DARBEPOETIN 200MCG/0.4ML *NON-DIALYSIS* SYRINGE (J0881 PER 1MCG) SC SCH (12:00)
--- NOTE | 2020-05-25 13:47 | IPNPDOC ---
Date Seen The patient was seen on 05/25/20. Progress Note SUBJECTIVE: Patient is comfortable in bed, pain is minimal at this time, no new complaints. PHYSICAL EXAMINATION: VITAL SIGNS: Please see below. GENERAL: No distress HEENT: Normocephalic, atraumatic, moist mucous membranes NECK: Supple CARDIOVASCULAR EXAMINATION: S1, S2, systolic murmur appreciated RESPIRATORY EXAMINATION: Diminished in the bases, no wheezing ABDOMINAL EXAMINATION: Soft, nontender, nondistended, positive bowel sounds EXTREMITIES: , Status post bilateral BKA SKIN: No rash NEUROLOGICAL EXAMINATION: Alert and oriented 3, no focal deficits PSYCHIATRIC EXAMINATION: Calm and cooperative LABORATORY DATA: See below. MICROBIOLOGY: Please see below. ASSESSMENT: 80-year-old male with extensive past medical history is being admitted after right BKA. PLAN: 1. Status post right BKA. Severe vascular disease with neuropathy, history of left BKA pain control adequate at this time. Continue TCA PT/OT, further management by vascular surgery. 2. End-stage renal disease. On peritoneal dialysis, currently undergoing CAPD Continue Sensipar and Renvela with meals Continue midodrine for blood pressure support Plan for tunneled dialysis catheter placement so patient can have hemodialysis while in rehabilitation. Nephrology following. 3. Coronary artery disease. Along with severe peripheral vascular disease, continue aspirin, Plavix and statin. 4. Systolic heart failure. EF 20% on recent evaluation. Currently stable, continue home regimen. 5. Aortic stenosis Status post valvuloplasty, reassessment for TAVR in the future. DVT prophylaxis: Heparin subcutaneous GI prophylaxis: Home PPI VS, I&O, 24H, Fishbone Vital Signs/I&O Vital Signs Date Time Temp Pulse Resp B/P (MAP) Pulse Ox O2 Delivery O2 Flow Rate FiO2 05/25/20 06:00 98.3 98 20 125/74 (91) 100 05/24/20 18:00 Room Air 05/23/20 14:30 2 I&O- Last 24 Hours up to 6 AM 05/25/20 06:00 Intake Total 24208 ml Output Total 44901 ml Balance 1450 ml Laboratory Data 24H LABS Laboratory Tests 2 05/25/20 05:50: Nucleated Red Blood Cells % (auto) 0.0, Anion Gap 12, Glomerular Filtration Rate 6.0L, Calcium Level 8.4L CBC/BMP Laboratory Tests 05/24/20 16:29 05/25/20 05:50 ZARIA MACIAS MD May 25, 2020 13:47
[2020-05-25 14:00] VITALS: BP 122/70
[2020-05-25] MEDS: ATORVASTATIN 20 MG TAB PO SCH (20:05)
[2020-05-25 22:00] VITALS: BP 126/72
[2020-05-26] VITALS (9 sets, daily range): BP systolic 116–128; BP diastolic 48–76
[2020-05-26 05:50] LABS: HEMATOCRIT 23.6 % (42.0-52.0); HEMOGLOBIN 7.4 g/dl (13.5-17.5); MEAN CORPUSCULAR HEMOGLOBIN 29.8 pg (27.0-33.0); MEAN CORPUSCULAR HGB CONC 31.4 g/dl (32.0-36.5); MEAN CORPUSCULAR VOLUME 95.2 fl (80.0-96.0); PLATELET COUNT, AUTOMATED 176 10^3/uL (150-450); RED BLOOD COUNT 2.48 10^6/uL (4.30-6.10)
[2020-05-26] MEDS: SYMBICORT 160/4.5MCG INHALER 6GM INH SCH ×2 (07:37→19:36)
[2020-05-26 07:41] LABS: BILIRUBIN,TOTAL 0.2 MG/DL (0.2-1.0); CALCIUM LEVEL 8.5 MG/DL (8.8-10.2); GLOMERULAR FILTRATION RATE 5.9 (>42); POTASSIUM SERUM 4.6 MEQ/L (3.5-5.1)
--- NOTE | 2020-05-26 08:23 | IPNPDOC ---
Date Seen The patient was seen on 05/26/20. Progress Note Patient seen and examined postoperative day 3 status post right below-knee amputation. He is doing well, aside from postoperative appropriate pain in the stump. He is able to extend his knee much better today. The dressings were removed, and the incision is clean dry and intact. There is no erythema induration drainage or swelling noted. We thoroughly clean the incision, Xeroform 4 x 4's Kerlix and Kaleb wrap were replaced. We worked again on extending his knee completely and stretching out his hamstrings. The patient did very well with this. Per the nurse, he did not work with physical therapy much over the weekend due to pain, I have again encouraged him to increase his pain medication to make himself more comfortable. He is very resistant to this. We will continue to encourage him to work with physical therapy so he can be considered for an ARU placement. We will continue to follow. We appreciate the opportunity to participate in the care of this patient. VS, I&O, 24H, Fishbone Vital Signs/I&O Vital Signs Date Time Temp Pulse Resp B/P (MAP) Pulse Ox O2 Delivery O2 Flow Rate FiO2 05/26/20 07:38 17 05/26/20 06:00 98.3 97 116/56 (76) 96 Room Air 05/23/20 14:30 2 I&O- Last 24 Hours up to 6 AM 05/26/20 06:00 Intake Total 18814 ml Output Total 39596 ml Balance -320 ml Laboratory Data 24H LABS Laboratory Tests 2 05/26/20 05:33: Nucleated Red Blood Cells % (auto) 0.0, Anion Gap 12, Glomerular Filtration Rate 5.9L, Calcium Level 8.5L, Total Bilirubin 0.2, Aspartate Amino Transf (AST/SGOT) 14, Alanine Aminotransferase (ALT/SGPT) 7L, Alkaline Phosphatase 84, Total Protein 5.0L, Albumin 2.0#L, Albumin/Globulin Ratio 0.7 CBC/BMP Laboratory Tests 05/26/20 05:33 ELLA STEPHENSON MD May 26, 2020 08:23
[2020-05-26] MEDS: SODIUM CHLORIDE 0.9% INJ 10 ML SYR IV SCH (09:00)
[2020-05-26] MEDS: DOCUSATE SODIUM 100MG CAPSULE PO SCH (09:00)
[2020-05-26] MEDS: HEPARIN SOD (PORCINE) 5000UNITS/ML 1ML VIAL/SYRINGE SC SCH ×2 (09:00→22:11)
[2020-05-26] MEDS: CLOPIDOGREL 75 MG TAB PO SCH (10:09)
[2020-05-26] MEDS: OMEPRAZOLE 20 MG CAP PO SCH (10:09)
[2020-05-26] MEDS: NORTRIPTYLINE 10 MG CAP PO PRN (10:09)
[2020-05-26] MEDS: ASPIRIN 81 MG ENTERIC TAB PO SCH (10:10)
[2020-05-26] MEDS: MIDODRINE 5 MG TAB PO SCH ×2 (10:11→22:10)
[2020-05-26] MEDS: (RENVELA) SEVELAMER **CARBONate** 800 MG TAB PO SCH ×3 (10:11→18:00)
[2020-05-26] MEDS: CINACALCET 30 MG TAB (SENSIPAR) PO SCH (10:16)
[2020-05-26 11:51] LABS: HEPATITIS B SURFACE ANTIBODY POSITIVE (POSITIVE)
[2020-05-26 12:01] LABS: HEPATITIS B SURFACE ANTIGEN NEGATIVE (NEGATIVE)
--- NOTE | 2020-05-26 12:11 | IPN ---
PROGRESS NOTE DATE: 05/26/2020 SUBJECTIVE: The patient was seen and examined at the bedside today morning. He is afebrile, hemodynamically stable. He is tolerating the peritoneal dialysis. Hemoglobin has dropped again today. He is going to get a blood transfusion. He reports mild pain in the right below knee amputation site. OBJECTIVE: VITAL SIGNS: Temperature is 98.3 degrees Fahrenheit, blood pressure 116/56, pulse 97, respiratory rate 16, saturating 97% on room air. INTAKE AND OUTPUT: There is no urine output recorded. Peritoneal dialysis output so far is 3 liters. Weight on the bed scale is not available. GENERAL: The patient is alert and oriented x3 laying in bed in no apparent distress. HEAD AND NECK: Extraocular muscles intact. Pupils equally round and reactive to light. Mucous membranes are moist. Neck is supple. There is no JVD. CARDIOVASCULAR: S1 and S2, regular rate. No edema of the bilateral lower extremities. He has a left anterior chest wall Infusaport. RESPIRATORY: Chest is clear to auscultation bilaterally. Bilateral equal air entry. No rales or rhonchi. ABDOMEN: Soft, positive bowel sounds. Left lower quadrant PD catheter. MUSCULOSKELETAL: He has bilateral below knee amputation, right sided amputation is fresh and has a dressing on it. AIRPLANE PILOT CROP DUSTING: No focal deficit in bilateral upper extremities. LABORATORY DATA: CBC showed a WBC of 9, hemoglobin 7.4, platelets 176,000. BMP showed a sodium of 138, potassium of 4.6, chloride 98, bicarbonate 28, BUN 51, creatinine is 11. CURRENT INPATIENT MEDICATIONS: Patient's medications were all reviewed by myself. No significant change in the medications today as compared with yesterday. ASSESSMENT AND PLAN: 1. Endstage renal disease. Patient is tolerating his current regimen of peritoneal dialysis. Continue five manual exchanges daily, all 1.5%, all 2 liters. 2. Anemia and endstage renal disease and recent blood loss during surgery. Patient is going to get one more unit of PRBC transfusion today. Continue current dose of Aranesp once a week. 3. Chronic hypotension. Blood pressure is controlled with Midodrine 10 mg p.o. twice a day. 4. Severe aortic stenosis. Volume status is optimized with dialysis. Patient is status post balloon valvuloplasty. TAVR will be done once patient is discharged. 5. Systolic congestive heart failure. No diuretic because the patient does not have any kidneys. Continue current PD regimen. No signs of fluid overload at this time.
[2020-05-26 12:30] LABS: HEPATITIS C VIRUS ABY INDEX < 0.0 INDEX (<0.8)
[2020-05-26 12:31] LABS: HEPATITIS B CORE ANTIBODY IGM NEGATIVE (NEGATIVE)
--- NOTE | 2020-05-26 15:13 | IPNPDOC ---
Date Seen The patient was seen on 05/26/20. Progress Note SUBJECTIVE: Patient is comfortable in bed, pain is minimal at this time, no new complaints. Unchanged from yesterday. PHYSICAL EXAMINATION: VITAL SIGNS: Please see below. GENERAL: No distress HEENT: Normocephalic, atraumatic, moist mucous membranes NECK: Supple CARDIOVASCULAR EXAMINATION: S1, S2, systolic murmur appreciated RESPIRATORY EXAMINATION: Diminished in the bases, no wheezing ABDOMINAL EXAMINATION: Soft, nontender, nondistended, positive bowel sounds EXTREMITIES: , Status post bilateral BKA SKIN: No rash NEUROLOGICAL EXAMINATION: Alert and oriented 3, no focal deficits PSYCHIATRIC EXAMINATION: Calm and cooperative LABORATORY DATA: See below. MICROBIOLOGY: Please see below. ASSESSMENT: 80-year-old male with extensive past medical history is being admitted after right BKA. PLAN: 1. Status post right BKA. Severe vascular disease with neuropathy, history of left BKA pain control adequate at this time. Continue TCA PT/OT, further management by vascular surgery. Awaiting rehabilitation placement. 2. End-stage renal disease. On peritoneal dialysis, currently undergoing CAPD Continue Sensipar and Renvela with meals Continue midodrine for blood pressure support Plan for tunneled dialysis catheter placement so patient can have hemodialysis while in rehabilitation. Nephrology following. 3. Coronary artery disease. Along with severe peripheral vascular disease, continue aspirin, Plavix and statin. 4. Systolic heart failure. EF 20% on recent evaluation. Currently stable, continue home regimen. 5. Aortic stenosis Status post valvuloplasty, reassessment for TAVR in the future. DVT prophylaxis: Heparin subcutaneous GI prophylaxis: Home PPI VS, I&O, 24H, Fishbone Vital Signs/I&O Vital Signs Date Time Temp Pulse Resp B/P (MAP) Pulse Ox O2 Delivery O2 Flow Rate FiO2 05/26/20 07:38 17 05/26/20 06:00 98.3 97 116/56 (76) 96 Room Air 05/23/20 14:30 2 I&O- Last 24 Hours up to 6 AM 05/26/20 06:00 Intake Total 14603 ml Output Total 78575 ml Balance -320 ml Laboratory Data 24H LABS Laboratory Tests 2 05/26/20 05:33: Nucleated Red Blood Cells % (auto) 0.0, Anion Gap 12, Glomerular Filtration Rate 5.9L, Calcium Level 8.5L, Total Bilirubin 0.2, Aspartate Amino Transf (AST/SGOT) 14, Alanine Aminotransferase (ALT/SGPT) 7L, Alkaline Phosphatase 84, Total Protein 5.0L, Albumin 2.0#L, Albumin/Globulin Ratio 0.7 CBC/BMP Laboratory Tests 05/26/20 05:33 ZARIA MACIAS MD May 26, 2020 15:13
[2020-05-26] MEDS: SODIUM CHLORIDE 0.9% INJ 10 ML SYR IV PRN (17:58)
[2020-05-26] MEDS: ATORVASTATIN 20 MG TAB PO SCH (22:10)
[2020-05-27 06:00] VITALS: BP 108/56
[2020-05-27] MEDS: SYMBICORT 160/4.5MCG INHALER 6GM INH SCH ×2 (07:13→22:00)
--- NOTE | 2020-05-27 09:01 | IPNPDOC ---
Date Seen The patient was seen on 05/27/20. Progress Note Patient seen and examined postoperative day 4 status post right below-knee amputation. Doing very well today. Pain better controlled and tolerated his d ressing change without difficulty. The incision is clean dry and intact. It was thoroughly cleaned and Xeroform dry gauze Kerlix and Kaleb wrap are replaced. We worked on extension of the knee again and the patient did well with this. His hamstrings are much looser today. He is working on extension. He says he sat up at the edge of the bed was physical therapy. He said they are anxious to get him to ARU. I told him as soon as they are ready for disposition we will place a femoral PermCath so he can have hemodialysis in rehabilitation. For now, we will continue to follow his stump closely. We appreciate the opportunity to participate in the care of this patient. VS, I&O, 24H, Fishbone Vital Signs/I&O Vital Signs Date Time Temp Pulse Resp B/P (MAP) Pulse Ox O2 Delivery O2 Flow Rate FiO2 05/27/20 06:00 97.5 99 17 108/56 (73) 98 Room Air 05/23/20 14:30 2 I&O- Last 24 Hours up to 6 AM 05/27/20 05:59 Intake Total 00867 ml Output Total 37310 ml Balance 522 ml ELLA STEPHENSON MD May 27, 2020 09:01
[2020-05-27] MEDS: MIDODRINE 5 MG TAB PO SCH ×2 (10:34→21:57)
[2020-05-27] MEDS: ASPIRIN 81 MG ENTERIC TAB PO SCH (10:34)
[2020-05-27] MEDS: CLOPIDOGREL 75 MG TAB PO SCH (10:34)
[2020-05-27] MEDS: DOCUSATE SODIUM 100MG CAPSULE PO SCH (10:35)
[2020-05-27] MEDS: OMEPRAZOLE 20 MG CAP PO SCH (10:35)
[2020-05-27] MEDS: (RENVELA) SEVELAMER **CARBONate** 800 MG TAB PO SCH ×4 (10:35→18:28)
[2020-05-27] MEDS: HEPARIN SOD (PORCINE) 5000UNITS/ML 1ML VIAL/SYRINGE SC SCH ×2 (10:35→21:00)
[2020-05-27] MEDS: SODIUM CHLORIDE 0.9% INJ 10 ML SYR IV SCH (10:36)
[2020-05-27] MEDS: NORTRIPTYLINE 10 MG CAP PO PRN (10:42)
[2020-05-27] MEDS ORDERED: MIRALAX *UNIT DOSE* 17GM PACKET PO PRN (11:30)
--- NOTE | 2020-05-27 11:55 | IPN ---
PROGRESS NOTE DATE: 05/27/2020 SUBJECTIVE: The patient was seen and examined at the bedside today morning. He is afebrile, hemodynamically stable, tolerating the peritoneal dialysis. He is complaining of constipation today. He otherwise denies any active complaints. OBJECTIVE: VITAL SIGNS: Temperature is 97.5 degrees Fahrenheit, blood pressure is 108/56, pulse is 99, respiratory rate 17, saturating 98% on room air. INTAKE AND OUTPUT: Peritoneal dialysis rate output is 4.5 liters since overnight, patient is anuric. Weight on the bed scale is not available. GENERAL: Patient is awake, alert and oriented x3 laying in bed in no apparent distress. HEAD AND NECK: Extraocular muscles intact. Pupils equally round and reactive to light. Mucous membranes are moist. Neck is supple. There is no JVD. He has a left anterior chest wall Infusaport. CARDIOVASCULAR: S1 and S2, regular rate. No edema of the bilateral lower extremities. RESPIRATORY: Chest is clear to auscultation bilaterally. ABDOMEN: Soft, positive bowel sounds. Left lower quadrant PD catheter is noted. MUSCULOSKELETAL: Patient has bilateral below knee amputation. Right BKA is fresh and has a dressing on it. INSIDE STEWARD/STEWARDESS: No focal deficit. Power is 5/5 in bilateral upper extremities. LABORATORY DATA: CBC showed a WBC of 9, hemoglobin is 7.4, platelets are 176 and this is from yesterday and BMP is also from yesterday. There are no new labs available from today. CURRENT INPATIENT MEDICATIONS: The patient's medications were all reviewed by myself. There is no significant change in the medications today as compared with yesterday. ASSESSMENT AND PLAN: 1. Endstage renal disease, patient is currently on peritoneal dialysis. Continue the PD regimen at this time. Volume status is optimal. 2. Anemia and endstage renal disease and recent blood loss. Patient was given one unit of PRBC transfusion yesterday. He is also on Aranesp, that was started two days ago. 3. Constipation. Patient will be given Miralax for constipation. 4. Chronic kidney disease, mineral bone disease. Continue current dose of Renvela. 5. Chronic hypotension, continue Midodrine. Volume status is optimal. 6. Secondary hyperparathyroidism, continue current dose of Sensipar. 7. Severe systolic heart failure, aortic stenosis. Patient is status post balloon valvuloplasty. He is pending TAVR procedure. Volume status is being controlled with dialysis.
[2020-05-27] MEDS: MIRALAX *UNIT DOSE* 17GM PACKET PO ONE ×2 (12:46→13:04)
[2020-05-27 14:00] VITALS: BP 116/74
--- NOTE | 2020-05-27 14:34 | IPNPDOC ---
Subjective Date Seen The patient was seen on 05/27/20. Subjective Chief Complaint/HPI No complaints this morning, working with PT, pain adequately controlled. Planned for femoral permcath on 05/28/20 Objective Physical Examination General Exam: Positive: Alert, Cooperative, No Acute Distress Eye Exam: Positive: PERRLA, Conjunctiva & lids normal, EOMI; Negative: Sclera icteric Neck Exam: Positive: Supple; Negative: JVD, thyromegaly Chest Exam: Positive: Clear to auscultation, Normal air movement Heart Exam: Positive: Rate Normal, Regular Rhythm, Normal S1, Normal S2; Negative: Murmurs, Rubs Telemetry: Positive: No significant arrhythmia Abdomen Exam: Positive: Normal bowel sounds, Soft; Negative: Tenderness, Hepatospenomegaly Extremity Exam: Positive: Other (bilateral BKA) Assessment /Plan Assessment 80-year-old male with extensive past medical history of left BKA, ESRD on PD, peripheral neuropathy, chronic hypotension on midodrine, CAD, PAD, Systolic CHF, , port on the left IJ, Occluded right IJ was admitted after right BKA. Status post right BKA. Severe vascular disease with neuropathy, history of left BKA pain control adequate at this time. Continue TCA PT/OT, further management by vascular surgery. ARU End-stage renal disease with secondary hyperparathyroidism On peritoneal dialysis as outpatient will be switched to HD while in ARU. Continue Sensipar and Renvela with meals midodrine for blood pressure support Coronary artery disease and PAD continue aspirin, Plavix and statin. Systolic heart failure with pulmonary hypertension EF 20% on recent evaluation. Currently stable, continue home regimen. Severe aortic stenosis status post balloon valvuloplasty in Apr 2020 pending transcatheter aortic valve replacement (TAVR). Anemia and end-stage renal disease. received 2 units of PRBC. As per nephrology Chronic hypotension now. on midodrine H/O prostate cancer and renal Cancer Hyperlipidemia statin GERD PPI COPD on symbicort, albuterol prn. Plan/VTE VTE Prophylaxis Ordered?: Yes VS, I&O, 24H, Fishbone Vital Signs/I&O Vital Signs Date Time Temp Pulse Resp B/P (MAP) Pulse Ox O2 Delivery O2 Flow Rate FiO2 05/27/20 06:00 97.5 99 17 108/56 (73) 98 Room Air 05/23/20 14:30 2 I&O- Last 24 Hours up to 6 AM 05/27/20 06:00 Intake Total 81377 ml Output Total 77049 ml Balance -628 ml ANA VAZQUEZ MD May 27, 2020 14:34
[2020-05-27] MEDS: ATORVASTATIN 20 MG TAB PO SCH (21:57)
[2020-05-27 22:00] VITALS: BP 110/52
[2020-05-28] MEDS: SODIUM CHLORIDE 0.9% INJ 10 ML SYR IV PRN ×2 (05:49→11:54)
[2020-05-28 06:00] VITALS: BP 114/56
[2020-05-28 06:13] LABS: BASO % 0.3 % (0.0-1.0); EOS # 0.3 10^3/uL (0.0-0.5); EOS % 3.8 % (0.0-3.0); HEMATOCRIT 29.5 % (42.0-52.0); HEMOGLOBIN 9.3 g/dl (13.5-17.5); LYMPH # 1.6 10^3/uL (1.5-5.0); LYMPH % 20.8 % (24.0-44.0); MEAN CORPUSCULAR HEMOGLOBIN 30.2 pg (27.0-33.0); MEAN CORPUSCULAR HGB CONC 31.5 g/dl (32.0-36.5); MEAN CORPUSCULAR VOLUME 95.8 fl (80.0-96.0); MONO # 0.7 10^3/uL (0.0-0.8); MONO % 9.5 % (2.0-8.0); NEUTROPHILS # 5.1 10^3/uL (1.5-8.5); NEUTROPHILS % 65.3 % (36.0-66.0); PLATELET COUNT, AUTOMATED 217 10^3/uL (150-450); RED BLOOD COUNT 3.08 10^6/uL (4.30-6.10); WHITE BLOOD COUNT 7.8 10^3/uL (4.0-10.0)
[2020-05-28 06:54] LABS: CALCIUM LEVEL 8.4 MG/DL (8.8-10.2); CREATININE FOR GFR 10.6 MG/DL (0.70-1.30); GLOMERULAR FILTRATION RATE 6.1 (>42); POTASSIUM SERUM 3.9 MEQ/L (3.5-5.1)
[2020-05-28] MEDS: SYMBICORT 160/4.5MCG INHALER 6GM INH SCH ×2 (07:22→20:00)
--- NOTE | 2020-05-28 08:20 | IPNPDOC ---
Text Note Date of Service The patient was seen on 05/28/20. NOTE Vascular Surgery Dr Canseco Patient seen and examined postoperative day 5 status post right below-knee amputation. Pain controlled currently, resting in bed. Tolerated his dressing change without difficulty. The incision is clean dry and intact. The incision is re dressed with Xeroform, dry gauze, kerlix and MASSIEL wrap. Plan for femoral PermCath so he can have hemodialysis in ARU as per Dr Canseco. For now, we will continue to follow his stump closely. We appreciate the opportunity to participate in the care of this patient. VS,Fishbone, I+O VS, Fishbone, I+O Laboratory Tests 05/28/20 05:56 Vital Signs Date Time Temp Pulse Resp B/P (MAP) Pulse Ox O2 Delivery O2 Flow Rate FiO2 05/28/20 07:22 17 05/28/20 06:00 97.6 100 114/56 (75) 98 Room Air 05/23/20 14:30 2 I&O- Last 24 Hours up to 6 AM 05/28/20 06:00 Intake Total 41847 ml Output Total 9850 ml Balance 450 ml Puja Garcia May 28, 2020 08:20
[2020-05-28] MEDS ORDERED: LIDOCAINE 1% MDV 20ML VIAL As Ordered ONE (10:28)
[2020-05-28] MEDS ORDERED: LIDOCAINE W/EPINEPHRINE 1% 20ML VIAL As Ordered ONE (10:31)
[2020-05-28] MEDS ORDERED: fentaNYL 100 MCG/2 ML INJECTION (J3010) As Ordered ONE (10:31)
[2020-05-28] MEDS ORDERED: MIDAZOLAM INJ 2MG/2ML VIAL (J2250 PER 1MG) As Ordered ONE (10:32)
[2020-05-28] MEDS: (RENVELA) SEVELAMER **CARBONate** 800 MG TAB PO SCH ×3 (10:51→19:30)
--- NOTE | 2020-05-28 11:05 | IPN ---
PROGRESS NOTE DATE: 05/28/2020 SUBJECTIVE: The patient was seen and examined at the bedside today morning. He is afebrile, hemodynamically stable. He reports that his pain in the right leg is better. He was given 1 unit of PRBC transfusion, his hemoglobin has improved to more than 9 now. OBJECTIVE: VITAL SIGNS: Temperature is 97.6 degrees Fahrenheit, blood pressure is 114/56, pulse is 100, respiratory rate of 18, saturating 98% on room air. INTAKE AND OUTPUT: Patient is anuric. Peritoneal dialysis output so far is 2.5 liters. Weight on the bed scale is not available. GENERAL: Patient is awake, alert, and oriented x3, laying in bed, in no apparent distress. HEAD AND NECK: Extraocular muscles intact. Pupils equally round and reactive to light. Mucous membranes are moist. Neck is supple. There is no JVD. CARDIOVASCULAR: S1 and S2, regular rate. No edema of the bilateral lower extremities. RESPIRATORY: Chest is clear to auscultation bilaterally. Bilateral equal air entry. No rales or rhonchi. ABDOMEN: Soft, positive bowel sounds. Left lower quadrant PD catheter. MUSCULOSKELETAL: He has bilateral below knee amputations, right amputation is new and has a dressing on it. RESERVE OPERATOR: No focal deficit. Power is 5/5 in bilateral upper extremities. LABORATORY DATA: CBC showed a WBC of 7.8, hemoglobin 9.3, platelets are 217,000. BMP showed a sodium of 140, potassium 3.9, chloride 99, bicarbonate 29, BUN 52, creatinine 10.6. CURRENT INPATIENT MEDICATIONS: The patient's medications were all reviewed by myself. No significant change in the medications today as compared with yesterday. ASSESSMENT AND PLAN: 1. Endstage renal disease. Patient is currently tolerating peritoneal dialysis. He is going to have a tunneled dialysis catheter soon so we can switch him to hemodialysis for preparation for rehab. 2. Anemia and endstage renal disease and recent blood loss. Patient is status post 1 unit of PRBC transfusion. He is also on Aranesp. Hemoglobin level is stable and improving. 3. Peripheral vascular disease status post right below knee amputation. Patient is getting dressing changes by Vascular Surgery. He reports pain is better and improving. 4. Chronic hypotension. Continue current dose of Midodrine. 5. Secondary hyperparathyroidism, continue current dose of Sensipar 60 mg p.o. three times a week.
[2020-05-28] MEDS ORDERED: ceFAZolin 2 GM/D5W 50 ML IV BAG (J0690 PER 500MG) As Ordered ONE (11:10)
--- NOTE | 2020-05-28 11:45 | ROOPDOC ---
[facility] Report Of Operation Report of Operation DATE OF PROCEDURE: 05/28/20 PREPROCEDURE DIAGNOSES: End-stage renal disease on peritoneal dialysis requiring access for hemodialysis while in rehabilitation POSTPROCEDURE DIAGNOSES: Same PROCEDURE: 1. Ultrasound-guided access right common femoral vein 2. Placement of a 48 cm bioflow duramax tunneled catheter right femoral vein SURGEON: Ella Canseco MD ANESTHESIA: Local anesthesia 20 mL lidocaine. Moderate intravenous conscious sedation was supervised by Dr. Canseco. The patient was independent we monitored by registered nurse assigned to the Department of radiology using automated blood pressure, EKG, and pulse oximetry. The detailed sedation record is permanently stored in the hospital information system. The following is a brief sedation record: Start time 11:11, stop time 11:32, Versed 0.5 mg IV, fentanyl 25 g IV, Ancef 2 g IV. INDICATION FOR PROCEDURE: This is a very pleasant 80-year-old gentleman who will be going to rehabilitation status post a right below-knee amputation and we will be switching from peritoneal dialysis to hemodialysis while in rehabilitation. Risks benefits and alternatives to a femoral PermCath placement were explained to the patient. He has an occluded right jugular vein and a port in the left jugular vein without sufficient room for 2 catheters. The patient is agreeable to proceed. Informed consent was obtained. INTERPRETATION: The catheter is in good position, no kinks in the catheter, with the tip freely mobile and the IVC at the level of the diaphragm. REPORT OF OPERATION: The patient was brought to the angiographic suite in stable condition. His bilateral groins were prepped and draped in a sterile fashion. A timeout was performed. Sedation was administered without consultation. Local anesthesia was administered to the skin and subcutaneous tissue over the left common femoral vein and over the left thigh. A microneedle was used to access the common femoral vein under ultrasound guidance. A wire was passed through this access needle was removed and a 4 Upper Sorbian sheath was placed and flushed with saline. A Glidewire was advanced through this access under fluoroscopic guidance. 2 serial dilations were performed over the wire using a Seldinger technique after making a small incision at the access site. We then placed a peel-away sheath over the wire. A small counterincision was made more distally on the thigh and a 48 cm PermCath was tunneled from the thigh to the femoral access site. Once the cuff was within the subcutaneous tissue, we removed the wire and inner cannula from the sheath and advanced the tips of the catheter through the sheath into the central system. The peel-away sheath was removed. Both ports kia back and flushed easily. Imaging confirmed the catheter was in good position with no kinks in the catheter and the 2 previous freely mobile in the inferior vena cava. We heparin locked both ports. Appropriate caps were placed. Following this, both access sites were irrigated. The femoral vein access site was closed with deep and superficial sutures and Dermabond was placed at the skin. The exit site of the catheter was closed with Prolene sutures in the catheter was secured to the thigh with additional Prolene sutures. Sterile dressings were applied. Good hemostasis was noted. The patient was then taken to recovery in stable condition. He tolerated the procedure and the sedation well. ESTIMATED BLOOD LOSS: Approximately 5 mL. COMPLICATIONS: None. PLAN: Okay to use PermCath for dialysis. Okay to resume preprocedure diet and medications per primary team. We appreciate the opportunity to participate in the care of this patient. ELLA CANSECO MD May 28, 2020 11:45
[2020-05-28] MEDS: HEPARIN SOD (PORCINE) 5000UNITS/ML 1ML VIAL/SYRINGE SC SCH ×2 (12:43→20:27)
[2020-05-28] MEDS: SODIUM CHLORIDE 0.9% INJ 10 ML SYR IV SCH (13:27)
[2020-05-28] MEDS: ASPIRIN 81 MG ENTERIC TAB PO SCH (13:28)
[2020-05-28] MEDS: CLOPIDOGREL 75 MG TAB PO SCH (13:28)
[2020-05-28] MEDS: OMEPRAZOLE 20 MG CAP PO SCH (13:28)
[2020-05-28] MEDS: CINACALCET 30 MG TAB (SENSIPAR) PO SCH (13:28)
[2020-05-28] MEDS: MIDODRINE 5 MG TAB PO SCH ×2 (13:28→20:27)
[2020-05-28] MEDS: DOCUSATE SODIUM 100MG CAPSULE PO SCH (13:28)
[2020-05-28 14:00] VITALS: BP 123/79
[2020-05-28] MEDS: ATORVASTATIN 20 MG TAB PO SCH (20:27)
--- NOTE | 2020-05-28 21:13 | DS.PDOC ---
Discharge Summary General Date of Admission May 23, 2020 at 08:09 Date of Discharge 05/28/20 Discharge Summary PROCEDURES PERFORMED DURING STAY: Right BKA Right Femoral perm cath placement DISCHARGE DIAGNOSES: S/P Right BKA for severe peripheral arterial disease with chronic right leg ischemia H/O Left BKA in November 2019. ESRD Chronic hypotension Peripheral and autonomic neuropathy CAD PAD Systolic CHF with EF of 20% Pulmonary hypertension Severe aortic stenosis status post balloon valvuloplasty in Apr 2020 HLD GERD COPD Anemia of chronic disease Secondary hyperparathyroidism. Thrombosed right IJ H/O prostate cancer Chemoport in left IJ COMPLICATIONS/CHIEF COMPLAINT: Atherosclerosis [place] Arteries Gangrene Right.... HOSPITAL COURSE: 80-year-old male with extensive past medical history of left BKA, ESRD on PD, peripheral neuropathy, chronic hypotension on midodrine, CAD, PAD, Systolic CHF, , port on the left IJ, Occluded right IJ was admitted for elective right BKA severe chronic right leg ischemia with severe distal atherosclerosis in the [place] artery status post multiple revascularizations now with a nonhealing right first toe, very painful, present for many months, no improvement. The patient underwent a left BKA in November, and did very well after this with resolution of all his chronic pain in the left so he opted to undergo right BKA for the severe chronic ischemic right leg. Status post right BKA. Severe vascular disease with neuropathy, history of left BKA pain control adequate at this time. Continue TCA PT/OT, ARU End-stage renal disease with secondary hyperparathyroidism On peritoneal dialysis as outpatient switched to HD while in ARU. Has Femoral permcath. Continue Sensipar and Renvela with meals midodrine for blood pressure support Coronary artery disease and PAD continue aspirin, Plavix and statin. Systolic heart failure with pulmonary hypertension EF 20% on recent evaluation. Currently stable, continue home regimen. Severe aortic stenosis status post balloon valvuloplasty in Apr 2020 pending transcatheter aortic valve replacement (TAVR). Anemia and end-stage renal disease. received 2 units of PRBC. As per nephrology Chronic hypotension now. on midodrine H/O prostate cancer and renal Cancer Hyperlipidemia statin GERD PPI COPD on symbicort, albuterol prn. DISCHARGE MEDICATIONS: Please see below. ALLERGIES: Please see below. PHYSICAL EXAMINATION ON DISCHARGE: VITAL SIGNS: Please see below. General Exam: Positive: Alert, Cooperative, No Acute Distress Eye Exam: Positive: PERRLA, Conjunctiva & lids normal, EOMI; Negative: Sclera icteric Neck Exam: Positive: Supple; Negative: JVD, thyromegaly Chest Exam: Positive: Clear to auscultation, Normal air movement Heart Exam: Positive: Rate Normal, Regular Rhythm, Normal S1, Normal S2; Negative: Murmurs, Rubs Telemetry: Positive: No significant arrhythmia Abdomen Exam: Positive: Normal bowel sounds, Soft; Negative: Tenderness, Hepatosplenomegaly Extremity Exam: Positive: Other (bilateral BKA) LABORATORY DATA: Please see below. ACTIVITY: [As tolerated]. DIET: Regular DISCHARGE PLAN: ARU DISPOSITION: . DISCHARGE INSTRUCTIONS: Follow up with Dr Ramirez. HD as per nephrology DISCHARGE CONDITION: [Stable]. TIME SPENT ON DISCHARGE: 35 minutes. Vital Signs/I&Os Vital Signs Date Time Temp Pulse Resp B/P (MAP) Pulse Ox O2 Delivery O2 Flow Rate FiO2 05/28/20 14:00 98.9 100 17 123/79 (94) 100 Room Air 05/28/20 11:25 2 I&O- Last 24 Hours up to 6 AM 05/28/20 07:00 Intake Total 55252 ml Output Total 9850 ml Balance 450 ml Laboratory Data Labs 24H Laboratory Tests 2 05/28/20 05:56: Immature Granulocyte % (Auto) 0.3, Neutrophils (%) (Auto) 65.3, Lymphocytes (%) (Auto) 20.8L, Monocytes (%) (Auto) 9.5H, Eosinophils (%) (Auto) 3.8H, Basophils (%) (Auto) 0.3, Neutrophils # (Auto) 5.1, Lymphocytes # (Auto) 1.6, Monocytes # (Auto) 0.7, Eosinophils # (Auto) 0.3, Basophils # (Auto) 0.0, Nucleated Red Blood Cells % (auto) 0.0, Anion Gap 12, Glomerular Filtration Rate 6.1L, Calcium Level 8.4L CBC/BMP Laboratory Tests 05/28/20 05:56 Discharge Medications Scheduled Aspirin (Ecotrin) 81 Mg Tablet., 81 MG PO DAILY, (Reported) Atorvastatin Calcium (Atorvastatin Calcium) 40 Mg Tablet, 40 MG PO QHS, (R eported) Budesonide/Formoterol (Symbicort 160-4.5 Mcg Inhaler) 6 Gm Hfa.aer.ad, 2 PUFF INH BID, (Reported) Cinacalcet HCl (Sensipar) 60 Mg Tablet, 60 MG PO 3XW, (Reported) MON, WED, FRI PM Clopidogrel Bisulfate (Plavix) 75 Mg Tablet, 75 MG PO DAILY, (Reported) Docusate Sodium (Colace) 100 Mg Capsule, 200 MG PO DAILY, (Reported) Epoetin [place] (Epogen) 20,000 Unit/1 Ml Vial, 20,000 UNIT INJ ASDIRECTED, (Reported) EVERY 2 WEEKS Magnesium Oxide (Magnesium) 400 Mg Capsule, 400 MG PO QHS, (Reported) Midodrine HCl (Midodrine HCl) 10 Mg Tablet, 10 MG PO BID, (Reported) MORNING AND AFTERNOON Midodrine HCl (Midodrine HCl) 5 Mg Tablet, 5 MG PO QPM, (Reported) Mupirocin (Mupirocin) 2 % Oint...g., 1 DOSE TOP DAILY, (Reported) WITH DRESSING CHANGES Nut.tx.imp.renal Fxn,Lac-Reduc (Nepro Carb Steady) 237 Ml Liquid, 1 LIQ PO DAILY, (Reported) Omeprazole (Omeprazole) 20 Mg Capsule.dr, 20 MG PO DAILY, (Reported) Sevelamer Carbonate (Renvela) 800 Mg Tablet, 800 MG PO WM, (Reported) [Zioptan] 0.0015% ML, 1 DROP OU QHS, (Reported) Scheduled PRN Albuterol Sulf (Albuterol Sulfate) 2.5 Mg/3 Ml Vial.neb, 1 VIAL NEB Q4H PRN for SHORTNESS OF BREATH, (Reported) Nortriptyline HCl (Nortriptyline HCl) 10 Mg Capsule, 30 MG PO TID PRN for PAIN, (Reported) Allergies Coded Allergies: amlodipine (Verified Allergy, Unknown, 05/23/20) indomethacin (Verified Allergy, Unknown, 05/23/20) nifedipine (Verified Allergy, Unknown, 05/23/20) NSAIDS (Non-Steroidal Anti-Inflamma (Verified Adverse Reaction, Intermediate, RECTAL BLEEDING, 05/23/20) TAKES 81MG ASA AT HOME FINE hydralazine (Verified Adverse Reaction, Mild, ELEVATED BP, 05/23/20) minoxidil (Verified Adverse Reaction, Mild, SWELLING, 05/23/20) Opioids - Morphine Analogues (Verified Adverse Reaction, Unknown, DIALYSIS PT, 05/23/20) epoetin beta (Verified Adverse Reaction, Unknown, 05/23/20) Hyporesponsive gabapentin (Verified Adverse Reaction, Unknown, confusion, 05/23/20) ANA VAZQUEZ MD May 28, 2020 21:13
== END 2020-05-28 22:20 | DRG 239 ==
LOC: M OR 05-23 08:09 → M MSPAV 05-23 14:42
PROVIDERS: ADMIT Surgery Vascular Surgery; ATTEND Internal Medicine Nephrology
PROC: 03HY32Z Insertion of Monitoring Device into Upper Artery, Percutaneous Approach (ICD-10-PCS; 2020-05-23)
PROC: 3E1M39Z Irrigation of Peritoneal Cavity using Dialysate, Percutaneous Approach (ICD-10-PCS; 2020-05-23)
PROC: 0Y6J0Z3 Detachment at Left Lower Leg, Low, Open Approach (ICD-10-PCS; principal; 2020-05-23 09:15)
PROC: 30233N1 Transfusion of Nonautologous Red Blood Cells into Peripheral Vein, Percutaneous Approach (ICD-10-PCS; 2020-05-24)
PROC: 02HV33Z Insertion of Infusion Device into Superior Vena Cava, Percutaneous Approach (ICD-10-PCS; 2020-05-28)
PROC: 0JHL3XZ Insertion of Tunneled Vascular Access Device into Right Upper Leg Subcutaneous Tissue and Fascia, Percutaneous Approach (ICD-10-PCS; 2020-05-28)
DX: I70.261 Atherosclerosis of native arteries of extremities with gangrene, right leg (principal); N18.6 End stage renal disease; L97.418 Non-pressure chronic ulcer of right heel and midfoot with other specified severity; I50.22 Chronic systolic (congestive) heart failure; I13.2 Hypertensive heart and chronic kidney disease with heart failure and with stage 5 chronic kidney disease, or end stage renal disease; I70.234 Atherosclerosis of native arteries of right leg with ulceration of heel and midfoot; I95.89 Other hypotension; I25.10 Atherosclerotic heart disease of native coronary artery without angina pectoris; E78.5 Hyperlipidemia, unspecified; D63.1 Anemia in chronic kidney disease; I35.0 Nonrheumatic aortic (valve) stenosis; D50.0 Iron deficiency anemia secondary to blood loss (chronic); I27.20 Pulmonary hypertension, unspecified; K59.00 Constipation, unspecified; Z89.512 Acquired absence of left leg below knee; Z99.2 Dependence on renal dialysis; Z87.891 Personal history of nicotine dependence; Z79.82 Long term (current) use of aspirin; Z79.899 Other long term (current) drug therapy; Z88.6 Allergy status to analgesic agent; Z88.5 Allergy status to narcotic agent; Z88.8 Allergy status to other drugs, medicaments and biological substances; Z85.46 Personal history of malignant neoplasm of prostate; Z85.528 Personal history of other malignant neoplasm of kidney; Z90.5 Acquired absence of kidney

== ENCOUNTER → 2020-05-19 | Outpatient (CLI) | payer MEDICARE, OTHER ==
[~2020-05-19] MED LIST changes: +MAGN400C2 PO; +MIDO10TA PO; +MUPI2OI EXT; -MUPI2OI TOP; +POTA20TA6
== END ==
LOC: M LABSMTC 13:13
PROVIDERS: ATTEND Anesthesiology
DX: Z01.812 Encounter for preprocedural laboratory examination (principal); Z20.822 Contact with and (suspected) exposure to COVID-19

== ENCOUNTER → 2020-05-21 | Outpatient (REF) | payer MEDICARE, OTHER ==
[~2020-05-21] MED LIST changes: +ASPI-569 PO; -ASPI81TAEC PO; -MUPI2OI EXT; +MUPI2OI TOP; +POTA10CA32 PO; -POTA20TA6; +ZIOPTAN OU
[2020-05-21 18:34] LABS: PERCENT SATURATION 68.3 % (19.7-50.0)
== END ==
LOC: M LAB REF 16:38
PROVIDERS: ATTEND Internal Medicine Nephrology
DX: N18.9 Chronic kidney disease, unspecified (principal); D63.1 Anemia in chronic kidney disease

== ENCOUNTER → 2020-05-22 | Outpatient (CLI) | payer MEDICARE, OTHER ==
[~2020-05-22] MED LIST changes: -ASPI-569 PO; +ASPI81TAEC PO; +LIDOCAINE W/EPINEPHRINE 1% 20ML VIAL As Ordered ONE; +MIDAZOLAM INJ 2MG/2ML VIAL (J2250 PER 1MG) As Ordered ONE; +VANCOMYCIN 1000MG/20ML VIAL As Ordered ONE; +fentaNYL 100 MCG/2 ML INJECTION (J3010) As Ordered ONE
--- NOTE | 2020-05-22 18:43 | ROOPDOC ---
[facility] Report Of Operation Report of Operation DATE OF PROCEDURE: 05/22/20 PREPROCEDURE DIAGNOSES: End-stage renal disease with very poor options for IV access and blood draws POSTPROCEDURE DIAGNOSES: Same PROCEDURE: 1. Ultrasound-guided access left internal jugular vein 2. Placement of a 28 cm tunneled Xkcozc-z-Nqfk left IJ SURGEON: Ella Cansceo MD ANESTHESIA: Local anesthesia 17 mL lidocaine. Moderate intravenous conscious sedation was supervised by Dr. Canseco. The patient was independently monitored by registered nurse assigned to the Department of radiology using automated blood pressure, EKG, and pulse oximetry. The detailed sedation record is permanently stored in the hospital information system. The following is a brief sedation record: Start time 17:54, start time 18:23, Versed 0.5 mg IV, fentanyl 25 g IV. The patient has in his medical record that he is allergic to opioids. He is not allergic to opioids and has tolerated them during multiple procedures and hospitalizations, but he and his prefer he not receive opioids if possible. For this procedure, we used as minimal sedation as possible and the patient did very well. INDICATION FOR PROCEDURE: This is a very pleasant 80-year-old gentleman with e nd-stage renal disease who requires frequent lab draws. We have been notified by our nephrology colleagues that there has been increasing difficulty obtaining lab draws. Unfortunately, there has been increased incidence with this patient recently where he has been unable to have successful phlebotomy. Additionally, the patient has great difficulty obtaining IV access should he need it during hospitalizations, procedures, etc. I have asked us to place and Emnphp-t-Usds for long-term IV access. Risks benefits and alternatives were explained and the patient is agreeable to proceed. Informed consent was obtained. 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 His left jugular vein is patent but not very large. I do not suspect he will have adequate space for 2 catheters both in the left jugular vein. Therefore, we will hold off on placing a PermCath for now, and when the patient needs dialysis during rehabilitation, we will place a femoral PermCath. INTERPRETATION: The Mmrdkr-p-Zajz is in good position, no kinks in the catheter, with the tip freely mobile at the right atrial SVC junction. There is no pneumothorax. REPORT OF OPERATION: The patient was brought to the interventional radiology suite in stable condition. His left neck and chest were prepped and draped in a sterile fashion. A timeout was performed. Antibiotics and sedation were administered without complication. Local anesthesia was administered to the skin and subcutaneous tissue over the left jugular vein over the clavicle to the left chest. A microneedle was used to access the left jugular vein under ultrasound guidance. A wire was passed through this access under fluoroscopic guidance. A small incision was made at the jugular access site and the needle was removed. A micro-sheath was placed and a J-wire was advanced into the central system under fluoroscopic guidance. A peel-away sheath was placed over the wire. We then made a small incision on the left chest just distal to the clavicle blunt dissection was used to make space for the port in an inferior pocket. Good hemostasis was noted. We measured the port. We then tunneled the catheter from the left chest over the clavicle to the jugular access site and cut it to 28 cm.. The port was placed in the pocket. We then advanced the tip of the catheter through the peel- away sheath into the central system. The peel-away sheath was removed. Final imaging showed the catheter to be in good position, no kinks in the catheter, no pneumothorax, the tip freely mobile at the right atrial SVC junction. We irrigated both incisions with normal saline. We accessed the port and it kia back and flushed easily. We heparin locked the port. We did not leave the port accessed. 2 Vicryl sutures were used to secure the port within the pocket. We then approximated the deep tissues with a running Vicryl suture. We closed the skin with a running subcuticular Monocryl suture. Mastisol and Steri-Strips were placed the length of the incision. The jugular access site was closed with deep and superficial interrupted Monocryl sutures and Dermabond was placed at the skin. A final 4 x 4 and Tegaderm dressing was placed over the port and Steri- Strips. The patient was then taken to recovery in stable condition. He tolerated the procedure and sedation very well. ESTIMATED BLOOD LOSS: Approximately 5 mL. COMPLICATIONS: None. PLAN: It is okay to use the port for blood draws, IV fluids, anesthesia, medications. Keep Steri-Strips intact 5-7 days to help with healing. 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 I do not want to place a femoral catheter until he will need hemodialysis, which is when he goes to rehabilitation. That may still be a week away. We like to avoid a catheter in the femoral veins as long as possible. The patient's left jugular vein is not large, and I do not feel it could accommodate both the port and the PermCath. Also, since the patient will need the port long-term, I like to minimize the risk of thrombosing his last jugular vein, and most certainly adding a second catheter would put him at high risk for thrombosis and closure of the left jugular vein as well. Therefore, we will hold off on femoral vein PermCath placement until the patient requires hemodialysis. ELLA CANSECO MD May 22, 2020 18:43
[2020-05-22 18:45] VITALS: BP 125/60
== END ==
LOC: M IRPRO 16:58
PROVIDERS: ATTEND Surgery Vascular Surgery
DX: N18.6 End stage renal disease (principal)
CPT/HCPCS: 36561; 99152; 99153; C1788; C1894; J1642; J1644; J2250; J3010; J3370

== ENCOUNTER 2020-05-28 12:43 | Inpatient (IN) | payer MEDICARE, OTHER ==
[~2020-05-28] VITALS: Ht 172.7 cm; Wt 63.0 kg
[~2020-05-28 12:43] MED LIST changes: +ASPI-569 PO; -ASPI81TAEC PO; -LIDOCAINE W/EPINEPHRINE 1% 20ML VIAL As Ordered ONE; -MIDAZOLAM INJ 2MG/2ML VIAL (J2250 PER 1MG) As Ordered ONE; -VANCOMYCIN 1000MG/20ML VIAL As Ordered ONE; -fentaNYL 100 MCG/2 ML INJECTION (J3010) As Ordered ONE
--- NOTE | 2020-05-28 15:01 | HPEPDOC ---
[facility] Note DATE OF ADMISSION: 05-28-20 DATE OF SERVICE: 05-28-20 TIME OF ADMISSION: Please refer to physician's admission order. SOURCE OF ADMISSION INFORMATION: [facility] record and patient CHIEF COMPLAINT:right BKA HISTORY OF PRESENT ILLNESS: 79M pmh renal cell carcinoma s/p nephrectomies on peritoneal dialysis, CHF with recent ECHO showing EF 20% and aortic stenosis s/p valvuloplasty , COPD, chronic hypotension, GERD, prostate cancer s/ p prostatectomy, anemia of chronic disease, CAD, secondary hyperparathyroidism, s/p left BKA, with chronic right foot ischemic wound followed closely by Dr. Kohli underwent a right BKA on 05-23-20 for atherosclerosis of the viejas arteries with gangrene of the right foot. He had post-op blood loss requiring blood transfusions and difficulty with pain. Femoral cath was placed 05-28-20 for transition to HD from PD. He was evaluated by therapy, found to have impairments in mobility and ADLs and deemed medically appropriate for discharge to ARU on 11-27-19. REVIEW OF SYSTEMS: The following is a completed review of systems and has been reviewed. Review of systems otherwise unremarkable. PAIN: Patient self reports no pain EYES: No recent vision changes EARS, NOSE, & THROAT: No throat pain, or dysphagia, or rhinorrhea CARDIOVASCULAR: Denies chest pain or palpitations PULMONARY: Denies shortness of breath GASTROINTESTINAL: Denies constipation/diarrhea GENITOURINARY: anuric MUSCULOSKELETAL: left BKA and s/p right BKA NEUROLOGICAL:+neuropathic pain HEMATOLOGICAL: +anemia SKIN: right BKA PSYCHIATRIC: Unremarkable All other review of systems found to be negative. PAST MEDICAL HISTORY: as per HPI PAST SURGICAL HISTORY: as per HPI ALLERGIES: Please see below. MEDICATIONS: Please see below. SOCIAL HISTORY: former ETOH/smoker, no illicit drugs DIET: regular, fluid restrict PHYSICAL EXAMINATION: VITAL SIGNS: Please see below. GENERAL: Pleasant and cooperative. No acute distress HEENT: PERRL. Extraocular movements intact. Clear conjunctiva CARDIOVASCULAR: Regular rate and rhythm. No murmurs, rubs, or gallops LUNGS: Clear to auscultation bilaterally. No wheezes. No rhonchi ABDOMEN: Soft, nontender, nondistended. Positive bowel sounds. Normal active bowel sounds NEUROLOGICAL: Alert and oriented times three. Cranial nerves II through XII grossly intact. Sensation grossly intact in all 4limbs EXTREMITIES: 5\5 strength bilateral upper extremities. bilat hip flexors 4/5, knee extension 4/5 SKIN: healed sacral ulcers, right BKA incision without periwound induration LABORATORY DATA: Please see below. IMAGING: Imaging documentation personally reviewed by record FUNCTIONAL STATUS: Premorbid: requiring assistance for activities of daily life as well as mobility On Admission: Max assist for bed mobility, functional transfers, dressing, toileting GOALS: Min assist-Contact guard for transfers, dressing, toileting, bathing ASSESSMENT:79-year-old M with past medical history of bilateral nephrectomies, left BKA who presents status post right BKA PLAN: 1. Rehab- PT/OT advance mobility, caregiver training, limb care, stretch/strengthen/maintain ROM all 4 limbs 2. Cardiac- chronic systlic and diastolic CHF with recent ECHO showing EF20% and aortic stenosis s/p valvuloplasty will fluid restrict to 1800cc, daily weights -cAD on ASa and statin -midodrine ordered with holding parameters for hypotension -medicine consulted for assistance with overall care 4. Resp- COPD on symbicort -monitor for infection, incentive spirometry 5. 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 Renal- patient converted to HD from PD for ARU admission, renal consulted in setting of bilateral nephrectomies -cinacalcet and sevelmar 7. Heme- anemia of chronic disease, renal consulted for management 8. Pain- c/u Pamelor 9. Skin- dressing changes per wound care instructions 10. GI- omeprazole 11. DVT ppx- heparin 12. Dispo- TBD POST ADMISSION PHYSICIAN EVALUATION: Medical and functional status: Description of medical status, medical assessment: As above. Rehabilitation diagnosis and current and prior cold morbid medical conditions as above. Risk of complications and plans to mitigate them as above. Description of functional status current status is as above. Prior status as above. Status compared to preadmission: There are no clinically significant differences between the patient's current status and the information described on the preadmission screening document. Treatment plan anticipated: Treatment plan is as described above. Required disciplines including physical therapy, occupational therapy, others as noted above. Intensity of services: 3 hours a day, 6 days a week. Special considerations: There are no specific special or safety considerations that would likely preclude immediate implementation of an intensive rehabilitation program or subsequently influence the plan of care. ATTESTATION: Considering all the information above, it is my best judgment that this patient requires intensive rehabilitation therapy as described above and an inpatient hospital environment due to the complexity of nursing, medical, and rehabilitation needs required by the patient. Furthermore, this patient can reasonably be expected to participate in an benefit from an inpatient rehabi litation stay with an interdisciplinary team approach to the delivery of rehabilitation care under the direction and supervision of rehabilitation physician. PROGNOSIS:good ESTIMATED LENGTH OF STAY:10-14 days. PROJECTED DISCHARGE DESTINATION: Home with family support and any durable medical equipment required to increase functional safety and mobility. TIME SPENT COUNSELING AND COORDINATING INITIAL CARE: Greater than 70 minutes. Vital Signs Vital Signs Date Time Temp Pulse Resp B/P (MAP) Pulse Ox O2 Delivery O2 Flow Rate FiO2 05/28/20 22:35 98.9 90 18 151/92 (111) 98 Room Air Home Medications Scheduled Aspirin (Ecotrin) 81 Mg Tablet.dr, 81 MG PO DAILY, (Reported) Atorvastatin Calcium (Atorvastatin Calcium) 40 Mg Tablet, 40 MG PO QHS, (Rep orted) Budesonide/Formoterol (Symbicort 160-4.5 Mcg Inhaler) 6 Gm Hfa.aer.ad, 2 PUFF INH BID, (Reported) Cinacalcet HCl (Sensipar) 60 Mg Tablet, 60 MG PO 3XW, (Reported) MON, WED, FRI PM Clopidogrel Bisulfate (Plavix) 75 Mg Tablet, 75 MG PO DAILY, (Reported) Docusate Sodium (Colace) 100 Mg Capsule, 200 MG PO DAILY, (Reported) Epoetin Irving (Epogen) 20,000 Unit/1 Ml Vial, 20,000 UNIT INJ ASDIRECTED, (Reported) EVERY 2 WEEKS Magnesium Oxide (Magnesium) 400 Mg Capsule, 400 MG PO QHS, (Reported) Midodrine HCl (Midodrine HCl) 10 Mg Tablet, 10 MG PO BID, (Reported) MORNING AND AFTERNOON Midodrine HCl (Midodrine HCl) 5 Mg Tablet, 5 MG PO QPM, (Reported) Mupirocin (Mupirocin) 2 % Oint...g., 1 DOSE TOP DAILY, (Reported) WITH DRESSING CHANGES Nut.tx.imp.renal Fxn,Lac-Reduc (Nepro Carb Steady) 237 Ml Liquid, 1 LIQ PO DAILY, (Reported) Omeprazole (Omeprazole) 20 Mg Capsule.dr, 20 MG PO DAILY, (Reported) Sevelamer Carbonate (Renvela) 800 Mg Tablet, 800 MG PO WM, (Reported) [Zioptan] 0.0015% ML, 1 DROP OU QHS, (Reported) Scheduled PRN Albuterol Sulf (Albuterol Sulfate) 2.5 Mg/3 Ml Vial.neb, 1 VIAL NEB Q4H PRN for SHORTNESS OF BREATH, (Reported) Nortriptyline HCl (Nortriptyline HCl) 10 Mg Capsule, 30 MG PO TID PRN for PAIN, (Reported) Allergies Coded Allergies: amlodipine (Verified Allergy, Unknown, 05/23/20) indomethacin (Verified Allergy, Unknown, 05/23/20) nifedipine (Verified Allergy, Unknown, 05/23/20) NSAIDS (Non-Steroidal Anti-Inflamma (Verified Adverse Reaction, Inter mediate, RECTAL BLEEDING, 05/23/20) TAKES 81MG ASA AT HOME FINE hydralazine (Verified Adverse Reaction, Mild, ELEVATED BP, 05/23/20) minoxidil (Verified Adverse Reaction, Mild, SWELLING, 05/23/20) Opioids - Morphine Analogues (Verified Adverse Reaction, Unknown, DIALYSIS PT, 05/23/20) epoetin beta (Verified Adverse Reaction, Unknown, 05/23/20) Hyporesponsive gabapentin (Verified Adverse Reaction, Unknown, confusion, 05/23/20) A-FIB/CHADSVASC A-FIB History Current/History of A-Fib/PAF?: No Current PO Anticoag Therapy: No JEFFERY CANTU MD May 28, 2020 15:01
[2020-05-28] MEDS: NORTRIPTYLINE 10 MG CAP PO SCH (21:00)
[2020-05-28] MEDS: REMEDY PHYTOPLEX Z-GUARD PASTE 113GM TUBE (FROM STOREROOM PRODUCT) TOP SCH (21:00)
[2020-05-28 22:35] VITALS: BP 151/92
--- OUTSIDE RECORDS SUMMARY | 2020-05-28 22:35 | CCD | Continuity of Care Document ---
Author Author Mauricio BUENROSTRO MD Organization Unknown Address [address] [place] [address], [place] [address] Phone [phone] Care Team Providers Care Loading Rack Supervisor Name Role Phone Adrianne Fletcher MD AUTM [phone] Derek Forman MD AUTM [phone] Fallon Canseco MD AUTM [phone] Problems Active Problems Provider Date Old myocardial infarction Kendrick Beunrostro MD Onset: 2016 Chronic ischemic heart disease Kendrick Buenrostro MD Onset: 0 10/08/2016 Chronic combined systolic and diastolic heart failure Kendrick Buenrostro MD Onset: 10/08/2016 Essential hypertension Kednrick Buenrostro MD Onset: 7 Electrocardiogram abnormal Kendrick Buenrostro MD Onset: 10/08 Atherosclerotic heart disease of [place] coronary arter y without angina pectoris Kendrick [...] GFR 9.9 Procedures Date Code Description Status 03/12/2020 19839 TM Interpretation & Report Only Completed 03/12/2020 01144 Myocardial Imaging (PET) Multipl e Studies Completed 02/21/2020 59397 ECG 12-Lead Completed Medical Devices Description No Information Available Encounters Type Date Location Provider Dx Diagnosis Office Visit 03/11/2020 10:42a Main Office Kendrick Buenrostro MD I11.0 Hypertensive heart disease with heart failure I50.42 Chronic combined systolic an d diastolic hrt fail I49.3 Ventricular premature depola rization I47.2 Ventricular tachycardia Office Visit 02/21/2020 1:15p Main Office GAY [...] Ventricular tachycardia Assessments Date Code Description Provider 04/16/2020 I11.0 Hypertensive heart disease with heart failure Kendrick Buenrostro MD 04/16/2020 I50.42 Chronic combined systolic (conge stive) and diastolic (conges Kendrick Buenrostro MD 04/16/2020 I49.3 Ventricular premature depolariza tion Kendrick Buenrostro MD 04/16/2020 I47.2 Ventricular tachycardia Kendrick Buenrostro MD 03/12/2020 I25.10 Atherosclerotic hear t disease of [place] coronary artery without angina pectoris Cardiac PET 03/12/2020 R94.31 Abnormal electrocardiogram [ECG] [EKG] Cardiac PET 03/11/2020 I11.0 Hypertensive heart disease with heart failure Kendrick Buenrostro MD 03/11/2020 I50.42 Chronic combined systolic (conge stive) and diastolic (conges Kendrick Buenrostro MD 03/11/2020 I49.3 Ventricular premature depolariza tion Kendrick Buenrostro MD 03/11/2020 I47.2 Ventricular tachycardia Kendrcik Buenrostro MD 02/21/2020 Z01.810 Encounter for preprocedural card iovascular examination [facility] 02/21/2020 I11.0 Hypertensive heart disease with heart failure [facility] 02/21/2020 I50.42 Chronic combined systolic (conge stive) and diastolic (conges GAY Alves 02/21/2020 I49.3 Ventricular premature depolariza tion G[facility] Al[facility] 02/21/2020 I47.2 Ventricular tachycardia GAY Alves 02/21/2020 I25.10 Atherosclerotic heart disease of [place] coronary artery with [facility] Alves 02/21/2020 I25.5 [...] Buenrostro MD Plan of Treatment Future Appointment(s):* 07/03/2020 11:00 am - Kendrick Buenrostro MD at Main Office * 08/20/2020 2:30 pm - [facility] at Main Office 02/21/2020 - [facility]* Z01.810 Encounter for preprocedural cardiovascular examination* Recommendations:* [place] [employer]/[place] [employer] Clinical Predictors: I. Major (> 5%): No recent DVT, acute NV, known critical aortic or mitral stenosis, or decompensated heart failure. II. Intermediate (1-5%): + history of prior NV, CHF chronic kidney disease. III. Minor predictors [...] tachycardia * I25.10 Atherosclerotic heart disease of [place] coronary artery with* New Xrays:* NM Heart [...]
--- OUTSIDE RECORDS SUMMARY | 2020-05-28 22:38 | CCD ---
Author Author [facility] Organization [facility] Address Unknown Phone Unavailable Care Team Providers Care Skin Diving Teacher Name Role Phone Gopi BEATTY MD Unavailable [...] LIDYA, J SHEA D[facility] Unavailable Unavailable LDIYA, J SHEA [facility] Unavailable Unavailable LIDYA, [...] Unavailable Unavailable Henrry Santana MD Unavailable Unavailable CrossvilleHenrry MD Unavailable Unavailable CrossvilleHenrry MD Unavailable Unavailable [place], Henrry DESOUZA Unavailable Unavailable [place], Henrry MD Unavailable Unavailable [place], Henrry MD Unavailable Unavailable [place], Henrry MD Unavailable Unavailable [place], Henrry MD Unavailable Unavailable [place], Henrry MD Unavailable Unavailable [place], Henrry MD Unavailable Unavailable [place], Henrry MD Unavailable Unavailable [place], Henrry MD Unavailable Unavailable [place], Henrry MD Unavailable Unavailable [place], Henrry MD Unavailable Unavailable [place], Henrry MD Unavailable Unavailable [place], Henrry MD Unavailable Unavailable [place], Henrry MD Unavailable Unavailable [place], Henrry MD Unavailable Unavailable [place], Henrry DESOUZA Unavailable Unavailable [place], Henrry MD Unavailable Unavailable [place], Henrry DESOUZA Unavailable Unavailable [place], Henrry MD Unavailable Unavailable [place], Henrry MD Unavailable Unavailable [place], Henrry DESOUZA Unavailable Unavailable [place], Henrry DESOUZA Unavailable Unavailable [place], Henrry DESOUZA Unavailable Unavailable [place], Henrry DESOUZA Unavailable Unavailable [place], Henrry DESOUZA Unavailable Unavailable BARRCLIVE DESOUZA EVERARDO [...] Unavailable Unavailable Kimberly Canseco MD Unavailable Unavailable Kmiberly Canseco MD Unavailable Unavailable Gopi BEATTY MD Unavailable Unavailable Gopi BEATTY MD Unavailable Unavailable Gopi BEATTY MD Unavailable Unavailable Gopi BEATTY MD Unavailable Unavailable Gopi BEATTY MD Unavailable Unavailable Gopi BEATTY MD Unavailable Unavailable Gopi BEATTY MD Unavailable Unavailable Gopi BEATTY MD Unavailable Unavailable Gopi BEATTY MD Unavailable Unavailable Gopi BEATTY MD Unavailable Unavailable Gopi BEATYT MD Unavailable Unavailable Gopi BEATTY MD Unavailable [...] Gavino ROJAS MD Unavailable Unavailable ANTECOL, Gavino RJOAS MD Unavailable Unavailable ANTECOL, Gavino ROJAS MD [...] Unavailable Unavailable Yasmeen SUNG MD Unavailable Unavailable BERYasmeen BOYCE MD Unavailable Unavailable Yasmeen SUNG MD Unavailable Unavailable Yasmeen SUNG MD Unavailable Unavailable Yasmeen SUNG MD Unavailable Unavailable BERYasmeen BOYCE MD Unavailable Unavailable BERYasmeen BOYCE MD Unavailable Unavailable Yasmeen SUNG MD Unavailable Unavailable Yasmeen SUNG MD Unavailable Unavailable BERKERYYasmeen MD Unavailable Unavailable BERKERYYasmeen MD Unavailable Unavailable BERKERYYasmeen MD Unavailable Unavailable BERKERYYasmeen MD Unavailable Unavailable BERKERYYasmeen MD Unavailable Unavailable BERKERYYasmeen MD Unavailable Unavailable BERKERYYasmeen MD Unavailable Unavailable BERKERYYasmeen MD Unavailable Unavailable BERKERYYasmeen MD Unavailable Unavailable BERKERYYasmeen MD Unavailable Unavailable BERKERYYasmeen MD Unavailable Unavailable BERKERY, Yasmeen BRYAN MD Unavailable Unavailable BERKERY, Yasmeen BRYAN MD Unavailable Unavailable BERKERYYasmeen MD Unavailable Unavailable [...] is protected by Article 27-F of the [facility] Public Health law. If you continue you may have access to information: Regarding HIV / AIDS; Provided by facilities licensed or operated by the [facility] Office of Mental Health; or Provided by the [facility] Office for People With Developmental Disabilities. If such information is present, then the following [facility] mandated warning applies: This information has been [...] law may result in a fine or mcc sentence or both. A general authorization for the release of medical or other information is NOT sufficient authorization for further disc losure. Allergies and Adverse Reactions Type Description Substance Reaction Status Data Source(s ) Propensity to adverse reactions NIFEDIPINE Nifedipine Acti ve [facility] Propensity to adverse reactions GABAPENTIN gabapentin Acti ve [facility] Propensity to adverse reactions OXYCODONE Oxycodone Acti ve [facility] Propensity to adverse reactions METHOXY POLYETHYLENE GLYCOL- EPOETIN BETA Methoxy polyethylene glycol-epoetin beta Active [facility] Propensity to adverse reactions MINOXIDIL Minoxidil Acti ve [facility] Propensity to adverse reactions INDOMETHACIN Indomethacin Active [facility] Propensity to adverse reactions HYDRALAZINE Hydralazine Ac tive [facility] Propensity to adverse reactions AMLODIPINE Amlodipine Acti ve [facility] Family History Family Member Name Family Member Gender Family Member Status Date o f Status Description Data Source(s) Unknown Male Problem [facility] ([facility] Unknown Male Problem [facility] ([facility] () Unknown Female Problem [facility] ([facility]) Encounters Encounter Providers Location Date Indications Data Source(s ) Outpatient Attender: DUANE BEATTY MD 05/22/2020 12:26:00 PM [facility] ECHO [address] [facility] ECHO [address] Inpatient Admitter: DUANE BEATTY MDReferrer: ROBBY Marquez [id number] 05/07/2020 10:36:31 AM [facility] Inpatient Attender: YULIANA Harris nder: DUANE BEATTY MDAdmitter: DUANE BEATTY MDReferrer: ROBBY ROSA [id number] 05/07/2020 09:21:00 AM EST - 05/08/2020 12:25:00 PM EST [facility] Patient discharged. Outpatient Attender: DUANE BEATTY MDReferrer: DUANE HORN MD MOB-MOB.PAT 2020 01:50:12 PM EST - 2020 03:09:22 PM EST [facility] Outpatient Referrer: DUANE ROSA-MOB.PAT 04/05 01:21:24 PM EST - 2020 01:21:29 PM EST [facility] Outpatient Attender: YOUNG Campuzano: SHEA BOSE DPM PC 04/29/2020 10:51:23 AM EST - 2020 10:03:00 AM EST [facility] Patient discharged. Outpatient Attender: DUANE BEATTY MDReferrer: DUANE HORN MD [id number] 04/15/2020 11:14:00 AM EST - 04/15/2020 11:59:00 PM EST [facility] Patient discharged. Outpatient Referrer: DUANE BEATTY MD 04/15/2020 09:07:07 AM EST [facility] Outpatient Attender: YULIANA AGUILAR MD [id number].[id number] 021 12:00:00 AM EST - 04/15/2020 01:00:17 PM EST [facility] Outpatient Attender: DUANE BEATTY MD CMP [facility] 04/08/2020 03:03:00 PM EST [facility] ([facility]) Outpatient Attender: IRVIN SUNG MD [facility]MP [facility] 04/07/2020 01:21:00 AM EST [facility] ([facility]) Outpatient Attender: IRVIN SUNG MD [facility] 04/04/2020 01:25:00 AM EST [facility] ([facility]) Outpatient Attender: IRVIN SUNG MD [facility]MP [facility] 04/01/2020 03:42:00 PM EST [facility] [place] ( in Healthcare facility) Attender: VIRY LACEY MDAttender: EVERARDO KINCAIDAdmitter: EVERARDO KINCAIDConsultant: OUT OF AREA PCP, PT Does Not have 03/30/2020 08:44:00 AM EST - 04/08/2020 03:14:00 PM EST [facility] Inpatient Attender: VIRY LACEY MDAttender: EVERARDO RODRIGUEZ 03/30/2020 08:44:00 AM EST [facility] Inpatient Attender: VIRY LACEY MDA ttender: BECCA STEARNS MDAttender: EVERADRO KINCAID MDAttender: ER PHYSICIANAdmitter: EVERARDO KINCAID MD 03/30/2020 08:08:35 AM EST [facility] [place] [facility] Inpatient Attender: VIRY LACEY MDA ttender: BECCA STEARNS MDAttender: ELISHA CARRASCO MDAttender: EVERARDO KINCAIDAttender: ER PHYSICIANAdmitter: EVERARDO KINCAID 03/30/2020 04:33:00 AM EST - 04/08/2020 03:14:00 PM EST VOLUME OVERLOAD [facility] VOLUME OVERLOAD Patient discharged. Emergency Attender: SHARRON LUONG 07:36:00 PM EST - 03/30/2020 02:47:00 AM [facility] Patient discharged. Office Visit Attender: BOB BUENROSTRO MD Main Office 03/11/2020 09: 42:00 AM EST MED[facility] ([facility]) Outpatient Attender: Fallon Sarah/Max/Dominic/ Reindl 03/06/2020 09:00:00 AM EST [facility] ([facility] Outpatient Attender: Susie RASHID Main Office 02/21/2020 12:15:0 0 PM EST [facility] ([facility]) Inpatient Attender: CORNEL Thornton: ER PHYSICIAN 02/09/2020 12:43:[address] [facility] ( in Healthcare facility) Attender: CORNEL Dominguez er: CORNEL CAMPA 02/09/2020 12:43:[address] [facility] Inpatient Attender: MARISSA Neriender: ER PHYSICIAN 02/09/2020 11:48:58 AM EST [facility] Inpatient Attender: CORNEL Thornton: ER PHYSICIANAdmitte r: CORNEL CAMPA 02/09/2020 09:23:00 AM EST - 02/12/2020 04:49:00 PM EST SOB/ESRD/S/P NEPRECTOMY/PAD [facility] SOB/ESRD/S/P NEPRECTOMY/PAD Patient discharged. Emergency Attender: MERRITT MARRERO MD 02/08 04:08:00 AM EST - 02/09/2020 07:40:00 AM [facility] Patient discharged. Emergency Attender: DARREL SHERMAN 02/03/2020 12: 33:00 AM EDT - 02/03/2020 03:04:00 AM [facility] Patient discharged. Office Visit Attender: BOB BUENROSTRO MD Main Office 01/31/2020 10: 30:00 AM EDT MED[facility] ([facility]) Office Visit Attender: Puja Sarah/Max/Dominic/R eindl 12/25/2019 01:00:00 PM EDT [facility] ([facility]) Office Visit Attender: Puja Sarah/Max/Dominic/R eindl 12/19/2019 11:45:00 AM EDT [facility] ([facility]) Office Visit Attender: Fallon Sarah/[place]/Dominic/ Reindl 10/25/2019 09:45:00 AM EDT [facility] ([facility]) Office Visit Attender: Fallon Sarah/[place]/Dominic/ Reindl 10/11/2019 11:45:00 AM EDT [facility] ([facility]) [place] [address] [facility] [address] 09/19/2019 12:00:00 AM EDT eCW1 ([facility]) [place] [address] [facility] [address] 09/14/2019 12:00:00 AM EDT [facility]CW1 ([facility] [address] [facility] [address] 09/14/2019 12:00:00 AM EDT eCW1 ([facility]) Outpatient Attender: Puja Sarah/Max/Dominic/R fatimah 09/12/2019 02:00:00 PM EDT [facility] ([facility] [address] [facility] [address] 09/07/2019 12:00:00 AM EDT eCW1 ([facility]) Outpatient Attender: Susie RASHID Main Office 08/28/2019 01:30:0 0 PM EDT [facility] ([facility]) [facility] [address] [facility] [address] 08/24/2019 12:00:00 AM EDT eCW1 ([facility] [address] [facility] [address] 08/24/2019 12:00:00 AM EDT eCW1 ([facility]) [facility] [address] [facility] [address] 08/16/2019 12:00:00 AM EDT eCW1 ([facility]) Outpatient Attender: Fallon Sarah/Max/Dominic/ Reindl 08/13/2019 02:30:00 PM EDT [facility] ([facility] [address] [facility] [address] 08/09/2019 12:00:00 AM EDT [facility]CW1 [facility] [address] [facility] [address] 08/09/2019 12:00:00 AM EDT eCW1 ([facility] [address] [facility] [address] 08/03/2019 12:00:00 AM EDT eCW1 ([facility]) [facility] [address] [facility] [place] [address] 07/27/2019 12:00:00 AM EDT eCW1 ([facility]) Outpatient 07/26/2019 11:34:00 AM EDT [facility] Emergency Attender: MERRITT MARRERO MD 07/25 10:28:00 AM EDT - 07/26/2019 03:55:00 PM EDT [facility] Patient discharged. Outpatient 07/25/2019 10:12:00 AM EDT [facility] [address] [facility] [address] 07/20/2019 12:00:00 AM EDT eCW1 ([facility]) [facility] [address] [facility] [address] 07/13/2019 12:00:00 AM EDT eCW1 ([facility]) [facility] [address] [facility] [place] [address] 07/13/2019 12:00:00 AM EDT eCW1 ([facility]) Outpatient Attender: Puja Sarah/Max/Dominic/R eindl 07/11/2019 11:30:00 AM EDT [facility] ([facility] [address] [facility] [address] 07/06/2019 12:00:00 AM EDT eCW1 ([facility]) Office Visit Attender: BOB BUENROSTRO MD Main Office 06/29/2019 12: 00:00 PM EDT [facility] ([facility]) [facility] [address] [facility] [address] 06/29/2019 12:00:00 AM EDT eCW1 ([facility]) [facility] Wound Care Center [address] [place] [address] 06/29/2019 12:00:00 AM EDT eCW1 ([facility]) [facility] Wound Care [address] [place] [address], [place] [address] 06/22/2019 12:00:00 AM EDT eCW1 ([facility]) [facility] Wound Care Center [address] [place] [address] 06/22/2019 12:00:00 AM EDT eCW1 ([facility]) [facility] Care [address] [place] [address] [address] 06/12/2019 12:00:00 AM EDT eCW1 ([facility]) Outpatient Attender: Fallon Sarah/Max/Dominic/ Reindl 06/04/2019 03:15:00 PM EST [facility] ([facility] [address] [facility] [address] 06/01/2019 12:00:00 AM EST eCW1 ([facility]) Outpatient Attender: Henrry Sarah/Max/Dominic/Reind l 05/30/2019 01:30:00 PM EST [facility] ([facility]) Outpatient 05/29/2019 04:00:00 PM EST [facility] Outpatient 05/25/2019 03:23:00 PM EST [facility] Outpatient 05/24/2019 05:30:00 AM EST [facility] Outpatient 05/14/2019 04:10:00 PM EST [facility] Outpatient 05/09/2019 09:03:00 AM [facility] Outpatient 05/01/2019 01:07:[address] [facility] Emergency Attender: MERRITT MARRERO MD 05/01 12:53:00 PM EST - 05/01/2019 07:20:00 PM [facility] Patient discharged. Outpatient 04/12/2019 11:36:[address] [facility] Outpatient Attender: SHEA BOSE DPM 0 03:52:00 PM [facility] I73.9,L60.0 [facility] I73.9,L60.0 Outpatient Attender: SHEA BOSE DPM PC 04/10/2019 03:45:00 PM EST - 04/10/2019 03:45:00 PM [facility] Outpatient Attender: SHEA BOSE DPM PC 04/03/2019 10:03:00 AM EST - 04/03/2019 10:03:00 AM [facility] Medications Medication Brand Name Start Date Product [...] 1 per rectum prn starting POD #3.
[facility] Medication administered onsite pantoprazole 40 MG Delayed Release Oral Tablet pantoprazole (PROTONIX) EC tablet 40 mg pantoprazole (PROTONIX) EC tablet 40 mg 05/08/2020 09:00:[address] 40 mg Oral active Gastroesophageal Reflux Diseas e 40 mg, Oral, Daily, Indications: Gastroesophageal Reflux Disease, First dose on Joanna 05/08/20 at 0900 [facility] Gastroesophageal Reflux Disease Medication administered onsite clopidogrel 75 MG Oral Tablet clopidogrel (PLAVIX) tab let 75 mg clopidogrel (PLAVIX) tablet 75 mg 05/08/2020 09:00:00 AM EST 75 mg Oral active 75 mg, Oral, Daily, First dose on Tue05/08/20 at 0900 [facility] Medication administered onsite Docusate Sodium 100 MG Oral Capsule docusate sodium (C OLACE) capsule 200 mg docusate sodium (COLACE) capsule 200 mg 05/08/2020 09:00:00 AM EST 200 mg Oral active 200 mg, Oral, Daily, First dose on Tue05/08/20 at 0900
hold for loose stools
[facility] Medication administered onsite Aspirin 81 MG Delayed Release Oral Tablet aspirin EC t ablet 81 mg aspirin EC tablet 81 mg 05/08/2020 09:00:00 AM EST 81 mg Oral activ e 81 mg, Oral, Daily, First dose on Tue05/08/20 at 0900 [facility] Medication administered onsite Polyvinyl Alcohol 0.014 ML/ML Ophthalmic Solution polyvinyl alcohol (LIQUIFILM TEARS) 1.4 % ophthalmic solution 2 drop polyvinyl alcohol (LIQUIFILM TEARS) 1.4 % ophthalmic solution 2 drop 05/08/2020 08:56:05 AM EST 2 [drp] active 2 drop, Both Eyes, As needed, dry eyes, Starting Tue05/08/20 at 0856 [facility] Medication administered onsite normal saline flush 0.9 % injection 3 mL 32759-261-29 05/07/2020 10:00:00 PM EST 3 mL Intravenous active 3 mL , Intravenous, PROTOCOL, First dose on Tue05/07/20 at 2200, Post-op
flush per protocol, D/C Main IV fluid if appropriate
[facility] Medication administered onsite Nortriptyline 10 MG Oral Capsule nortriptyline (PAMELO R) capsule 30 mg nortriptyline (PAMELOR) capsule 30 mg 05/07/2020 09:00:00 PM EST 30 m g Oral active 30 mg, Oral, 2 times daily, First dose on Tue05/07/20 at 2100 [facility] Medication administered onsite midodrine hydrochloride 5 MG Oral Tablet midodrine (NC OAMATINE) tablet 5 mg midodrine (PROAMATINE) tablet 5 mg 05/07/2020 09:00:00 PM EST 5 mg Oral active 5 mg, Oral, Every evening, First dose on Tue05/07/20 at 2100 [facility] Medication administered onsite atorvastatin 40 MG Oral Tablet atorvastatin (LIPITOR) tablet 40 mg atorvastatin (LIPITOR) tablet 40 mg 05/07/2020 09:00:00 PM EST 40 mg Oral active 40 mg, Oral, Nightly, First dose on Tue05/07/20 at 2100 [facility] Medication administered onsite heparin (porcine) injection 5,000 Units [id number] 05/07/19 09:00:00 PM EST 5000 U Subcutaneous [...] equal to 1.7 if receiving Coumadin therapy.
[facility] Medication administered onsite sevelamer carbonate 800 MG Oral Tablet sevelamer (RENV BRANDO) tablet 800 mg sevelamer (RENVELA) tablet 800 mg 05/07/2020 05:00:00 PM EST 800 mg Oral active 800 mg, Oral, 3 time s daily with meals, First dose on Tue05/07/20 at 1700 [facility] Medication administered onsite ondansetron (ZOFRAN) injection 4 mg [id number] 05/07/2020 03:44:1 9 PM EST 4 mg Intravenous active 4 mg, In travenous, Every 6 hours PRN, nausea, vomiting, Starting Tue05/07/20 at 1544, Post-op
If no response in 15-30 minutes then give metoclopramide 10 mg IV x 1 then q6h prn N/V.
[facility] Medication administered onsite 2 ML Metoclopramide 5 MG/ML Prefilled Sy ringe metoclopramide (REGLAN) injection 10 mg metoclopramide (REGLAN) injection 10 mg 05/07/2020 03:44:[address] 10 mg Intravenous active 10 mg, I ntravenous, Every 6 hours PRN, nausea, vomiting, Starting Tue05/07/20 at 1544, Post-op
Give once if no response to Zofran after 15-30 minutes, then q6h prn N/V.
[facility] Medication administered onsite acetaminophen (TYLENOL) 325 [...] Tue05/07/20 at 1544, Post-op [Order 2 End] [facility] Medication administered onsite 10 ML Atropine [...] or 0.04 mg/kg. Max of 6 doses
[facility] Medication administered onsite Calcium Chloride 0.706391 MEQ/ML / Gluco se 0.6 MG/ML / Magnesium Chloride 0.7440708 MEQ/ML / Sodium Chloride 0.62056 MEQ/ML / Sodium Lactate 0.0016 MEQ/ML Intraperitoneal Solution [Dianeal Low Calcium 1.5] dianeal lo-walter 1.5% 10,000 mL dianeal lo-walter 1.5% 10,000 mL 05/07/2020 03:23:14 PM EST [address]43 mL Intraperitoneal active 10,000 mL , Intraperitoneal, dialysis, per PD Cycler orders, Starting Tue05/07/20 at 1523
Solution as per [employer] order. 5000 ml bags used ONLY for Cycler
[facility] Medication administered onsite Magnesium Chloride 0.58685 MEQ/ML / Pota ssium Chloride 0.0497 MEQ/ML / Sodium Acetate 0.0163 MEQ/ML / Sodium Chloride 0.0899 MEQ/ML / Sodium gluconate 5.02 MG/ML Injectable Solution [Normosol-R] electrolyte-R (NORMOSOL-R/PLASMALYTE-R) solution 1,000 mL electrolyte-R (NORMOSOL-R/PLASMALYTE-R) solution 1,000 mL 05/07/2020 03:00:00 PM EST 1000 mL Intravenous aborted at 100 mL/hr, 1,000 mL, Intravenous, Continuous, Starting Tue05/07/20 at 1500, PACU (only) [facility] Medication administered onsite midodrine hydrochloride 5 MG Oral Tablet midodrine (NC OAMATINE) tablet 10 mg midodrine (PROAMATINE) tablet 10 mg 05/07/2020 02:00:00 PM EST 10 mg Oral active 10 mg, Oral, 2 times daily, Firs t dose on Tue05/07/20 at 1400 [facility] Medication administered onsite cinacalcet 30 MG Oral Tablet cinacalcet (SENSIPAR) tab let 60 mg cinacalcet (SENSIPAR) tablet 60 mg 05/07/2020 02:00:00 PM EST 60 mg Oral active 60 mg, Oral, 3 times weekly (Once per day on Tue), First dose on Tue05/07/20 at 1400 [facility] Medication administered onsite Albuterol 0.83 MG/ML Inhalant Solution a lbuterol (PROVENTIL) nebulizer solution 2.5 mg albuterol (PROVENTIL) nebulizer solution 2.5 mg 2020 01:17:48 PM EST 2.5 mg active 2.5 mg, Nebulization, Every 6 hours PRN, shortness of breath, Starting 05/07/20 at 1317 [facility] Medication administered onsite Potassium Chloride 20 MEQ Extended Release Oral Tablet Potas sium Chloride ER 02/20/2020 12:00:00 AM EST ORAL active [facility] ([facility]) Nepro/Carbsteady 02/20/2020 12:00:00 AM EST a ctive MED[facility] ([facility]) midodrine hydrochloride 5 MG Oral Tablet Midodrine HCL 02/20/2020 12:00:00 AM EST ORAL active [facility] ([facility] clopidogrel 75 MG Oral Tablet [Plavix] Plavix 02/20/2020 12:00:00 AM EST ORAL active [facility] ([facility] Cephalexin 500 MG Oral Tablet Cephalexin 02/20/2020 12:00:00 AM EST ORAL active [facility] ([facility] cinacalcet 30 MG Oral Tablet [Sensipar] Sensipar 02/20/2020 12:00:0 0 AM EST ORAL active [facility] ([facility] Nortriptyline 10 MG Oral Capsule Nortriptyline HCL 02/20/2020 12:00 :00 AM EST ORAL active [facility] ([facility] latanoprost 0.05 MG/ML Ophthalmic Solution Latanoprost 02/20/2020 12:00:00 AM EST OPHTHALMIC active [facility] ([facility]) Povidone-Iodine 100 MG/ML Topical Solution Povidone-Iodine 02/20/2020 12:00:00 AM EST active [facility] ([facility] Cephalexin 500 MG Oral Capsule [Keflex] Keflex 12/19/2019 12:00:0 0 AM EDT ORAL completed [facility] ([facility], ) clopidogrel 75 MG Oral Tablet [Plavix] Plavix 09/06/2019 12:00:00 AM EDT ORAL active [facility] ([facility], ) cinacalcet 30 MG Oral Tablet [Sensipar] Sensipar 08/27/2019 12:00:0 0 AM EDT ORAL completed [facility] ([facility]) atorvastatin 40 MG Oral Tablet Atorvastatin Calcium 08/27/2019 1 2:00:00 AM EDT ORAL active [facility] ( [facility]) clopidogrel 75 MG Oral Tablet Clopidogrel Bisulfate 08/21/2019 1 2:00:00 AM EDT ORAL completed MEDENT ([facility]) COLLAGENASE 0.25 UNT/MG Topical Ointment [Santyl] Maura yl 250 UNIT/GM Santyl 250 UNIT/GM 08/03/2019 12:00:00 AM EDT active 1 application eCW1 ([facility]) sevelamer carbonate 800 MG Oral Tablet [Renvela] Renvela 06/10/2019 12:00:00 AM EST ORAL active [facility] ([facility] cinacalcet 30 MG Oral Tablet [Sensipar] Sensipar 06/10/2019 12:00:0 0 AM EST ORAL completed [facility] ([facility] Docusate Sodium 100 MG Oral Capsule [Colace] Colace 11/2019 12:00:00 AM EST ORAL active MEDENT ( [facility]) clopidogrel 75 MG Oral Tablet Clopidogrel Bisulfate 06/10/2019 1 2:00:00 AM EST ORAL completed MEDENT ([facility]) Ascorbic Acid 60 MG / Beta Carotene 5000 UNT / Copper Sulfate 40 MG / dl-alpha tocopheryl acetate 30 UNT / Sodium Selenite 0.04 MG / Zinc Oxide 40 MG Oral Tablet Multi For Him 50+ 06/10/2019 12:00:00 AM EST ORAL active MEDENT ([facility]) Omeprazole 20 MG Delayed Release Oral Capsule [Prilosec] Whitney losec 06/10/2019 12:00:00 AM EST ORAL active M EDENT ([facility]) calcium acetate 667 MG Oral Capsule Calcium Acetate (Phos Bi nder) 06/10/2019 12:00:00 AM EST ORAL completed MEDENT ([facility]) paricalcitol 0.001 MG Oral Capsule Paricalcitol 06/10/2019 12:00:00 A M EST ORAL completed [facility] ([facility] 24 HR Isosorbide Mononitrate 60 MG Extended Release Or al Tablet Isosorbide Mononitrate ER 06/10/2019 12:00:00 AM EST ORAL complete d MEDENT ([facility]) Omeprazole 20 MG Delayed Release Oral Capsule [Prilosec] Whitney losec 01/15/2019 12:00:00 AM EDT ORAL completed MEDENT ([facility]) cinacalcet 30 MG Oral Tablet [Sensipar] Sensipar 01/15/2019 12:00:0 0 AM EDT ORAL completed MED[facility] ([facility] sevelamer carbonate 800 MG Oral Tablet [Renvela] Renvela 01/15/2019 12:00:00 AM EDT ORAL completed MEDENT ([facility] calcium acetate 667 MG Oral Capsule [Phoslo] Phoslo 12:00:00 AM EDT ORAL completed MEDENT ([facility]) tiotropium 0.018 MG/ACTUAT Inhalant Powd er tiotropium (SPIRIVA HANDIHALER) 18 MCG inhalation capsule tiotropium (SPIRIVA HANDIHALER) 18 MCG i nhalation capsule 1 {capsule} Inhalation aborted Place 1 capsule into inhaler and inhale every evening [facility] 12 HR Guaifenesin 600 MG Extended Releas e Oral Tablet guaiFENesin (MUCINEX) 600 MG 12 hr tablet guaiFENesin (MUCINEX) 600 MG 12 hr tablet 600 mg Oral aborted Take 600 mg by mouth every 12 (twelve) hours as needed for congestion [facility] Albuterol 0.833 MG/ML / Ipratropium Brom brett 0.167 MG/ML Inhalant Solution ipratropium-albuterol (DUO-NEB) 0.5-2.5 mg/mL nebulizer ipratropium-albuterol (DUO-NEB) 0.5-2.5 mg/mL nebulizer Inhalation aborted Inhale as needed [facility] Prednisone 20 MG Oral Tablet predniSONE (DELTASONE) 20 MG tablet predniSONE (DELTASONE) 20 MG tablet 20 mg Oral aborted Take 20 mg by mouth daily [facility] Insurance Providers Payer name Policy type / Coverage type Policy ID Covered democrat ID Covered democrat's relationship to mae Policy Mae Plan Information MEDICARE [id number] SP [id number] FOR LIFE [id number] SP [id number] FOR LIFE HEA [id number] S [id number] MEDICARE MCA [id number] S [id number] N93 MEDICARE MCA [id number] S [id number] N93 MEDICARE [id number] [place] [id number] N93 [id number] Abiola [id number] INSURANCE COVID-19 COVID Abiola C OVID [id number] MEDICARE [id number] MEDICARE [id number] [place] [id number] N93 [id number] [place]ola [id number] MEDICARE PART A-O/P [id number] 18 [id number] FOR LIFE-O/P [id number] 18 [id number] INSURANCE COVID-19 [id number] 2 [id number] HEA [id number] S [id number] 'S ADMINISTRATION [id number] SP [id number] FOR LIFE O [id number] S [id number] MEDICARE C [id number] S [id number] N93 MEDICARE [id number] SP [id number] N93 FOR LIFE [id number] SP [id number] [facility]/136E O [id number] S [id number] MEDICARE PART A -CLINIC [id number] 18 [id number] FOR LIFE [id number] 18 [id number] MEDICARE PART A [place] [id number] 18 [id number] For Life - WPS Medigap Part B [id number] Self [id number] Medicare (Part B) Medicare Primary [id number] Self [id number] For Life - WPS Medigap Part B [id number] Self [id number] Medicare (Part B) Medicare Primary [id number] Self [id number] MEDICARE [id number] SP [id number] A For Life - WPS Medigap Part B [id number] Self [id number] Medicare (Part B) Medicare Primary [id number] Self [id number] FOR LIFE U [id number] Self [id number] OTHER B TRANSPLANT Self TRANSPLAN T MEDICARE A [id number] Self [id number] A MEDICARE [id number] SP [id number] A For Life - WPS Medigap Part B [id number] Self [id number] Medicare (Part B) Medicare Primary [id number] Self [id number] MEDICARE PART A-O/P [id number] 18 [id number] For Life - WPS Medigap Part B [id number] Self [id number] Medicare (Part B) Medicare Primary [id number] Self [id number] WPS For Life Medigap Part B [id number] Self [id number] Medicare [facility] Medicare Primary [id number] Self [id number] WPS For Life Medigap Part B [id number] Self [id number] Medicare [facility] Medicare Primary [id number] Self [id number] WPS For Life Medigap Part B [id number] Self [id number] Medicare [facility] Medicare Primary [id number] Self [id number] FOR LIFE U [id number] Self [id number] MEDICARE -O/P [id number] 18 [id number] [facility] ([place]) Medigap Part B [place] Self OTHER B [id number] Self [id number] [employer] O [id number] S [id number] MEDICARE INPATIENT M [id number] S [id number] [facility] [id number] SP [id number] Problems, Conditions, and Diagnoses Code Display Name Description Problem Type Effective Dates Data Source(s) N18.6 ESRD on peritoneal dialysis ESRD on peritoneal dialysi s [id number] 05/07/2020 12:00:00 AM [facility] 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 [id number] 05/07/2020 12:00:00 AM [facility] 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, left Hx of BKA, left [id number] 05/07/2020 12:0 0:00 AM [facility] I73.9 Peripheral vascular disease Peripheral vascular diseas e [id number] 05/07/2020 12:00:00 AM [facility] I25.10 Coronary artery disease Coronary artery disease 913426 05/07/2020 12:00:00 AM EST [facility] E78.5 Hyperlipidemia Hyperlipidemia [id number] 05/07/2020 12:00: 00 AM [facility] I10 Hypertension Hypertension [id number] 05/07/2020 12:00:00 A M [facility] I35.0 Nonrheumatic aortic valve stenosis Nonrheumatic aortic valve stenosis 80277363 04/16/2020 12:00:00 AM [facility] S90.211D [id number] Contusion of right g reat toe with damage to nail, subsequent encounter Problem 08/08/2019 12:00:00 AM EDT eCW1 ([facility]) S90.211D [id number] Contusion of right g reat toe with damage to nail, subsequent encounter Problem 08/08/2019 12:00:00 AM EDT eCW1 ([facility]) L97.524 [id number] Non-pressure chronic ulcer of other part of left foot with necrosis of bone Problem 06/01/2019 12:00:00 AM EST W1 ([facility]) I70.245 [id number] 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 with ulceration of other part of foot Problem 06/01/2019 12:00:00 A M EST [facility] ([facility]) L97.524 [id number] Non-pressure chronic ulcer of other part of left foot with necrosis of bone Problem 06/01/2019 12:00:00 AM EST eCW1 ([facility]) I70.245 [id number] 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 with ulceration of other part of foot Problem 06/01/2019 12:00:00 A M EST eCW1 ([facility]) I35.0 Nonrheumatic aortic (valve) stenosis Nonrheumati c aortic (valve) stenosis Diagnosis 05/07/2020 09:21:00 AM [facility] U07.1 COVID-19 COVID-19 Diagnosis 2020 01:21:24 PM ES T [facility] R99 Ill-defined and unknown cause of mortali ty Ill-defined and unknown cause of mortality Diagnosis 2020 10:03:00 AM [facility] I35.0 Nonrheumatic aortic (valve) stenosis Nonrheumati c aortic (valve) stenosis Diagnosis 04/15/2020 11:36:[address] 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 Diagnosis 03/29/2020 07:36:00 PM [facility] Z8546 Personal history of malignant neoplasm o f prostate Personal history of malignant neoplasm of prostate Diagnosis 03/29/2020 07:36:00 PM [facility] Z992 Dependence on renal dialysis Dependence on renal dialy sis Diagnosis 03/29/2020 07:36:00 PM [facility] J449 Chronic obstructive pulmonary disease, u nspecified Chronic obstructive pulmonary disease, unspecified Diagnosis 03/29/2020 07:36:00 PM [facility] 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 I252 Old myocardial infarction Old myocardial infarction Di agnosis 03/29/2020 07:36:00 PM [facility] E875 Hyperkalemia Hyperkalemia Diagnosis 03/29/2020 07:36:00 P M [facility] R0902 Hypoxemia Hypoxemia Diagnosis 03/29/2020 07:36:[address] [facility] N186 End stage renal disease End stage renal disease Diagno sis 03/29/2020 07:36:00 PM [facility] I501 Left ventricular failure, unspecified Le ft ventricular failure, unspecified Diagnosis 03/29/2020 07:36:00 PM [facility] R0600 Dyspnea, unspecified Dyspnea, unspecified Diagnosis 03/29/2020 07:36:00 PM [facility] I120 Hypertensive chronic kidney disease with stage 5 chronic kidney disease or end stage renal disease Hypertensive chronic kidney disease with stage 5 chronic kidney disease or end stage renal disease Diagnosis 02/09/2020 04:08: 00 AM [facility] J441 Chronic obstructive pulmonary disease wi th (acute) exacerbation Chronic obstructive pulmonary disease with (acute) exacerbation Diagnosis 02/09/2020 04:08:00 AM [facility] Z23 Encounter for immunization Encounter for immunization Diagnosis 02/03/2020 [facility] Essential (primary) hypertension Essential (primary) h ypertension Diagnosis 02/03/2020 12:33:00 AM [facility] E119 Type 2 diabetes mellitus without complic ations Type 2 diabetes mellitus without complications Diagnosis 02/03/2020 12:33:00 AM EDT [facility] J209 Acute bronchitis, unspecified Acute bronchitis, unspec ified Diagnosis 02/03/2020 12:33:00 AM [facility] B22427 Cough variant asthma Cough variant asthma Diagnosis 02/03/2020 12:33:00 AM [facility] R05 Cough Cough Diagnosis 02/03/2020 12:33:[address] 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) Diagnosis 07/26/2019 10:28:00 AM EDT [facility] I214 Non-ST elevation (NSTEMI) myocardial inf arction Non-ST elevation (NSTEMI) myocardial infarction Diagnosis 07/26/2019 10:28:00 AM EDT [facility] R6521 Severe sepsis with septic shock Severe sepsis with sep tic shock Diagnosis 07/26/2019 10:28:00 AM EDT [facility] A419 Sepsis, unspecified organism Sepsis, unspecified organ ism Diagnosis 07/26/2019 10:28:00 AM EDT [facility] I509 Heart failure, unspecified Heart failure, unspecified Diagnosis 05/01/2019 12:53:00 PM [facility] B17087 Cellulitis of left toe Cellulitis of left toe Diagnosi s 05/01/2019 12:53:00 PM [facility] Z4889 Encounter for other specified surgical a ftercare Encounter for other specified surgical aftercare Diagnosis 04/10/2019 03:45:00 PM [facility] B44656 Pain in left foot Pain in left foot Diagnosis 04/03/2019 10:03:00 AM [facility] L600 Ingrowing nail Ingrowing nail Diagnosis 04/03/2019 10:03: 00 AM [facility] L84 Corns and callosities Corns and callosities Diagnosis 04/03/2019 10:03:00 AM [facility] 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 Nail dystrophy Diagnosis 04/03/2019 10:03: 00 AM [facility] B351 Tinea unguium Tinea unguium Diagnosis 04/03/2019 10:03:00 AM [facility] I739 Peripheral vascular disease, unspecified Peripheral vascular disease, unspecified Diagnosis 04/03/2019 10:03:00 AM [facility] Surgeries/Procedures Procedure Description Date Indications Data Source(s) GLUC BLD GLUC MNTR DEV CLEARED FDA SPEC HOME USE POCT GLUCOSE Routine 05/08/2020 8:26 AM EST 05/08/2020 01:26:00 PM [facility] BLOOD COUNT COMPLETE AUTOMATED CBC Timed 05/08/2020 6:20 A M EST 05/08/2020 11:20:00 AM EST [facility] BASIC METABOLIC PANEL CALCIUM TOTAL BASIC METABOLIC PANEL Timed 05/08/2020 6:20 AM EST 05/08/2020 11:20:00 AM [facility] ECG ROUTINE ECG W/LEAST 12 LDS TRCG ONLY W/O I&R ECG 12-LEAD Routine 05/07/2020 2:20 PM EST 05/07/2020 07:20:19 PM EST [facility] XR CHEST PORTABLE XR CHEST PORTABLE STAT 05/07/2020 2:04 PM EST 05/07/2020 07:04:32 PM EST [facility] PROTHROMBIN TIME PROTIME-INR STAT 05/07/2020 1:54 PM EST 05/07/2020 06:54:00 PM EST [facility] BLOOD COUNT COMPLETE AUTOMATED CBC STAT 05/07/2020 1:54 P M EST 05/07/2020 06:54:00 PM EST [facility] MAGNESIUM MAGNESIUM STAT 05/07/2020 1:54 PM EST 05/07/2020 06:54:00 PM EST [facility] BASIC METABOLIC PANEL CALCIUM TOTAL BASIC METABOLIC PANEL STAT 05/07/2020 1:54 PM EST 05/07/2020 06:54:00 PM [facility] CARDIAC CATHETERIZATION CARDIAC CATHETERIZATION Routine 05/07/2020 1:23 PM EST Nonrheumatic aortic valve stenosis 05/07/2020 06:23:00 PM ES T Nonrheumatic aortic valve stenosis [facility] Nonrheumatic aortic valve stenosis POC ACT POC ACT Routine 05/07/2020 1:02 PM EST 06:02:00 PM EST [facility] ECG TRANSESOPHAG R-T 2D W/PRB IMG ACQUISJ I&R ECHOCARDIOGRA M TRANSESOPHAGEAL Routine 05/07/2020 10:36 AM EST 05/07/2020 03:36:32 PM EST [facility] GLUC BLD GLUC MNTR DEV CLEARED FDA SPEC HOME USE POCT GLUCOSE Routine 05/07/2020 9:34 AM EST 05/07/2020 02:34:00 PM EST [facility] ECG ROUTINE ECG W/LEAST 12 LDS TRCG ONLY W/O I&R ECG 12-LEAD Routine 2020 3:08 PM EST Nonrheumatic aortic valve stenosis 2020 08:08:15 PM ES T Nonrheumatic aortic valve stenosis [facility] Nonrheumatic aortic valve stenosis NT PRO BNP NT PRO BNP Routine 2020 2:40 PM EST Nonrheumatic aortic valve stenosis 2020 07:40:00 PM ES T Nonrheumatic aortic valve stenosis [facility] Nonrheumatic aortic valve stenosis THROMBOPLASTIN TIME PARTIAL PLASMA/WHOLE BLOOD APTT Routine 2020 2:40 PM EST Nonrheumatic aortic valve stenosis 2020 07:40:00 PM ES T Nonrheumatic aortic valve stenosis [facility] Nonrheumatic aortic valve stenosis PROTHROMBIN TIME PROTIME-INR Routine 2020 2:40 PM EST Nonrheumatic aortic valve stenosis 2020 07:40:00 PM ES T Nonrheumatic aortic valve stenosis [facility] Nonrheumatic aortic valve stenosis BLOOD COUNT COMPLETE AUTO&AUTO DIFRNTL WBC COUNT CBC AND DIFFER ENTIAL Routine 2020 2:40 PM EST Nonrheumatic aortic valve stenosis 2020 07:40:00 PM ES T Nonrheumatic aortic valve stenosis [facility] Nonrheumatic aortic valve stenosis HEPATIC FUNCTION PANEL HEPATIC FUNCTION PANEL Routine 021 2:40 PM EST Nonrheumatic aortic valve stenosis 2020 07:40:00 PM ES T Nonrheumatic aortic valve stenosis [facility] Nonrheumatic aortic valve stenosis COMPREHENSIVE METABOLIC PANEL COMPREHENSIVE METABOLIC PANEL Rou irma 2020 2:40 PM EST Nonrheumatic aortic valve stenosis 2020 07:40:00 PM ES T Nonrheumatic aortic valve stenosis [facility] Nonrheumatic aortic valve stenosis ROOM TEMP AB SCREEN ROOM TEMP AB SCREEN Routine 2020 2 :07 PM EST Nonrheumatic aortic valve stenosis 2020 07:07:00 PM ES T Nonrheumatic aortic valve stenosis [facility] Nonrheumatic aortic valve stenosis BLOOD TYPING ABO TYPE AND SCREEN Routine 2020 2:07 PM EST Nonrheumatic aortic valve stenosis 2020 07:07:00 PM ES T Nonrheumatic aortic valve stenosis [facility] Nonrheumatic aortic valve stenosis HEMOGLOBIN GLYCOSYLATED A1C HEMOGLOBIN A1C Routine 2020 2:07 PM EST Nonrheumatic aortic valve stenosis 2020 07:07:00 PM ES T Nonrheumatic aortic valve stenosis [facility] Nonrheumatic aortic valve stenosis PULMONARY FUNCTION TEST PULMONARY FUNCTION TEST Routine 04/16/2020 11:14 AM EST Nonrheumatic aortic valve stenosis 04/16/2020 04:14:03 PM ES T Nonrheumatic aortic valve stenosis [facility] Nonrheumatic aortic valve stenosis Doppler Echocardiography Complete 04/07/2020 12:00:00 AM EST MEDENT ([facility]) Doppler Echocardiography Color Flow Velocity Mapping 04/07/2020 12:00:00 AM EST MEDENT ([facility]) ECHO Transthoracic [employer] Performance Continuous Electrocardio 04/07/2020 12:00:00 AM EST MEDENT ([facility]) Catheter Placement In Coronary Artery 04/03/2020 12:00 :00 AM EST MEDENT ([facility]) Electrocardiogram Interpretation & Report Only 12:00:00 AM EST MEDENT ([facility]) Echocardiography, Tranthoracic Real-Time Image Documentation 03/31/2020 12:00:00 AM EST MEDENT ([facility]) Electrocardiogram Interpretation & Report Only 12:00:00 AM EST MEDENT ([facility]) MYOCRD IMAGE PET PERFUS MULTPL STUDY REST/STRESS 03/12 12:00:00 AM EST MEDENT ([facility]) CV STRS TST XERS&/OR RX CONT ECG I&R ONLY 03/12/2020 1 2:00:00 AM EST MEDENT ([facility] ECG ROUTINE ECG W/LEAST 12 LDS W/I&R 02/21/2020 12:00: 00 AM EST MEDENT ([facility]) Echocardiography, Tranthoracic Real-Time Image Documentation 02/11/2020 12:00:00 AM EST MEDENT ([facility]) Amputation Below Knee 11/21/2019 12:00:00 AM EDT MEDENT ([facility]) Insertion Of Tunneled Centrally Inserted Central Venous Cath eter 11/21/2019 12:00:00 [facility] Ultrasound Guidance For Vascular Access Requiring Ultrasound Eval 11/21/2019 12:00:00 AM EDT MEDENT ([facility]) AMPUTATION TOE METATARSOPHALANGEAL JOINT 09/14/2019 12 :00:00 AM EDT MEDENT ([facility]) Revascularization,Endovascular,Transluminal Angioplasty 09/05/2019 12:00:00 [facility] REVSC OPN/PRQ TIB/INA W/ANGIOPLASTY UNI 09/05/2019 12 :00:00 AM EDT MEDENT ([facility]) REVSC OPN/PRQ TIB/INA W/ANGIOPLASTY UNI EA VSL 2019 12:00:00 AM EDT MEDENT ([facility]) REVSC OPN/PRQ TIB/INA W/ANGIOPLASTY UNI EA VSL 2019 12:00:00 AM EDT MEDENT ([facility]) Moderate Sedation Services; Same Phys Intl 15 Mins; PT >= 5 Years 09/05/2019 12:00:00 AM EDT MEDENT ([facility]) ECG ROUTINE ECG W/LEAST 12 LDS W/I&R 08/28/2019 12:00: 00 AM EDT MEDENT ([facility]) Office Visit, Est Pt., Level 3 PC 08/24/2019 12:00:00 AM EDT eCW1 ([facility]) Office Visit, Est Pt., Level 3 FC 08/24/2019 12:00:00 AM EDT eCW1 ([facility]) ACTIVE WOUND CARE/20 CM OR < 08/03/2019 12:00:00 AM ED T eCW1 ([facility]) TeleMedicine Est. Pt. Level 1 07/20/2019 12:00:00 AM E DT eCW1 ([facility]) TeleMedicine Est. Pt. Level 2 07/06/2019 12:00:00 AM E DT eCW1 ([facility]) EB SUBQ TISSUE 20 SQ CM/< 06/29/2019 12:00:00 AM EDT eCW1 ([facility]) REMOVAL OF NAIL BED 06/29/2019 12:00:00 AM EDT eCW1 ([facility]) Office Visit, New Pt., Level 3 FC 06/01/2019 12:00:00 AM EST eCW1 ([facility]) Office Visit, New Pt., Level 3 PC 06/01/2019 12:00:00 AM EST eCW1 ([facility]) EB BONE 20 SQ CM/< 06/01/2019 12:00:00 AM EST eCW1 ([facility]) Removal Tunneled Central Venous Access Dev W/Sub Port/Pump 05/24/2019 12:00:00 AM EST MEDENT ([facility], ) REVSC OPN/PRQ [facility] 05/24/[facility] 12:00:00 AM EST MEDENT ([facility], ) REVSC OPN/PRQ TIB/INA [facility] 05/24/2019 12:00:00 AM EST MEDENT ([facility], ) Angiography Extremity Unilateral 05/24/2019 12:00:00 A M EST MEDENT ([facility], ) Results ID Date Data Source [id number] 05/19/2020 02:00:00 PM EST [facility] Name Value Range Interpretation Code Description Data Kevin rce(s) Supporting Document(s) SARS coronavirus 2 RNA Not Detected [facility] [place] This lab was ordered by [facility] and reported by [facility]. ID Date Data Source [id number] 05/14/2020 08:36:16 PM EST [facility] INFORMATIONPatient MRN Name Date of Age Gend*PT [id number] Cassidy Varghese 1940 80 years M SDCXPT Location Admission Date/Time Visit ID Attending [id number] 05/07/20 0921 --- --- EPI ID CSN Admitting Provider [id number] Duane Beatty MD([id number]) Attestation signed by Yuliana Aguilar MD at 05/14/2020 8:36 PMI saw and evaluated the patient and reviewed PA/JEWELRY APPRAISER's note. I agree with thehistory, physical and medical decision making.Yuliana Aguilar MD:36 PM --Physician Discharge Summary Cassidy VargheseMRN: [id number] date: 05/07/2020ttending Physician: Duane Beatty MDAdmission Diagnosis: [...] about3 weeks ago and was admitted to [facility] with congestive heart failure.Cardiac catheterization dated 04/03/2020 [...] deployed in the right femoral artery.A 6 Estonian pigtail catheter was advanced through the left [...] This was discussed withthe patient and his Alice clayton, and all questions were answered.Past Medical History:Past [...] COLACE Take 200 mg by mouth dailyEpogen 93015 UNIT/ML injectionGeneric drug: epoetin alyson Inject under [...] rce(s) Supporting Document(s) ID Date Data Source [id number] 05/08/2020 08:33:59 AM EST [facility] Name Value Range Interpretation Code Description Data Kevin rce(s) Supporting Document(s) POC NOVA GLU 124 mg/dL (70-99) H [facility] [place] PERFORMED BY [facility] ID Date Data Source [id number] 05/08/2020 08:32:18 AM EST [facility] Name Value Range Interpretation Code Description Data Kevin rce(s) Supporting Document(s) SODIUM 141 mmol/L (136-145) [facility] POTASSIUM 4.5 mmol/L (3.6-5.2) [facility] CHLORIDE 101 mmol/L (100-108) [facility] CO2 29 mmol/L (22-31) [facility] ANION GAP 11 mmol/L (7-16) [facility] UREA NITROGEN 40 mg/dL (7-24) H [facility] CREATININE 10.20 mg/dL (0.80-1.30) HH [facility] CONSISTENT WITH PREVIOUS RESULTS BUN/CREAT RATIO 3.9 RATIO (10.0-20.0) L [facility] GLUCOSE 115 mg/dL (70-99) H [facility] CALCIUM 9.3 mg/dL (8.4-10.2) [facility] GFR 5 ml/min/1.73m2 (>59) L [facility] GFR ( AMER) 6 ml/min/1.73m2 (>59) L [facility] GFR INTERPRETATION Lab [facility] --NORMAL KIDNEY FUNCTION OR MILD DISEASE - GFR >OR= 60CHRONIC KIDNEY DISEASE - GFR 15 - 59RENAL FAILURE - GFR <15 Est. GFR calculation based on the MDRDstudy equation, which assumes a steadystate for creatinine. Est. GFR should notbe used for medication dosing. ID Date Data Source [id number] 05/08/2020 08:03:12 AM EST [facility] Name Value Range Interpretation Code Description Data Kevin rce(s) Supporting Document(s) WBC 6.8 10*3/uL (4.1-11.0) [facility] [place] RBC 2.99 10*6/uL (4.60-6.10) L [facility] HGB 9.3 g/dL (13.5-18.0) L [facility] HCT 28.4 % (41.0-53.0) L [facility] PERFORMED AT [address] [place] [address] N Y [address] MCV 95.0 fL (80.0-95.0) [facility] MCH 31.3 pg (27.0-32.0) [facility] MCHC 33.0 g/dL (32.0-36.0) [facility] RDW 16.4 % (10.5-14.5) H [facility] PLT 156 10*3/uL (150-450) [facility] MPV 9.9 fL (7.1-10.7) [facility] ID Date Data Source [id number] 05/07/2020 03:21:30 PM EST [facility] NT INFORMATIONPatient MRN Name Date of Age Gend*PT [id number] Cassidy Varghese 1940 80 years M SDCXPT Location Admission Date/Time Visit ID Attending [id number] 05/07/20920 --- Yuliana Aguilar MD([id number]) EPI ID CSN Admitting Provider [id number] Duane Beatty MD([id number])ConsultRobert Manjula [id number] yearsReason for consult: CKDThank you, for the kind referral.Impression & PlanESRD, on PD ( [facility] )CCPD orders in chart.EPO for anemia.Midodrine [...] Historyof ESRD, on PD ( follows with [facility] [facility] ). He is still sedated postsurgery and [...] Take 40 mg by mouth daily 05/06/2020 [id number] cinacalcet (SENSIPAR) 60 MG tablet Take 60 mg by mouth 3 (three) times a weekOn Tuesday, Tuesday, and Tuesday05/05/2020 at 2100 clopidogrel (PLAVIX) 75 MG tablet Take 75 mg by mouth daily 05/07/2020 at 0600 docusate sodium (COLACE) 100 MG capsule Take 200 mg by mouth daily 05/07/2020t 0600 epoetin alyson (EPOGEN) 99299 UNIT/ML injection Inject under the skin every [...] Take 20 mg by mouth daily 05/07/2020 [id number] [employer] IP Inject into the [...] on phone: None Gets together: None Attends church service: None Active member of club or [...] rashes.EXT: No edema or homans. 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 No deformitiesPD [...] INR 1.11 05/07/2020abs reviewed at 3:14 PMSignature: Coving[place] Alma Delia Duenas, MDDate: May 07, 2020Time: 3:14 PM Name Value Range Interpretation Code Description Data Kvein rce(s) Supporting Document(s) ID Date Data Source [id number] 05/07/2020 02:40:27 PM EST [facility] Name Value Range Interpretation Code Description Data Kevin rce(s) Supporting Document(s) EKG [facility] MDRSSi4mQfCSEqCbe6QaAnNbSGEzKF0bytl7R8X2xANmJ2HuxIIfq9zdP0YnN9NiPYXeMEBSSF9CzGUu jb2 [file] cgMDAwMDAgbiAKMDAwMDAwMTYwOSAwMDAwMCBuIAow JWWbWWVuLzL7YZVfTLIjCQ2eIbXvHDHcCGX1KSSeNNGiZCPdcuYDPXHaBNGpPPYlJVX3FWUyJLJpWYn6 vzJolCEuQnx0Zo7ZeNhiIYP7Rn6ZkkUxKFRzPNBTTz1Jv550TBBuBXMFAjg+PgpzdGFydHhyZWYKNTI4 NBuKCIBOQ7U= ID Date Data Source [id number] 05/07/2020 02:06:02 PM EST [address] [address]Fgsuxlh Name: CASSIDY DIAZOB: 1940Sex: MOrdering Provider: ASHTYN FERREIRAuthbayron Prov: ASHTYN GUPTAReferrmars Provider: Procedure Performed: XR CHEST PORTABLEExam Date: 05/07/2020 14:04MRN: [id number] Number: [id number] Class: InpatientAccount #: [id number] for Exam: Post TAVR procedureTechnique: AP portable view obtained.Comparison: NoneFindings: Distal tip of transvenous pacemaker in expected position of the apex of the right ventricle. Mediastinum is unremarkable. Lungs clear. No pneumothorax. IMPRESSION: Distal tip of transvenous pacemaker in expected position of the apex the right ventricle. No pneumothorax.Report electronically signed by: DUANE LUDWIG On 05/07/2020 2:06 PMWorkstation ID: [id number] Name Value Range Interpretation Code Description Data Kevin rce(s) Supporting Document(s) ID Date Data Source [id number] 05/07/2020 03:37:51 PM EST [facility] Name Value Range Interpretation Code Description Data Kevin rce(s) Supporting Document(s) MAGNESIUM 2.2 mg/dL (1.7-2.4) [facility] ID Date Data Source [id number] 05/07/2020 03:37:51 PM EST [facility] Name Value Range Interpretation Code Description Data Kevin rce(s) Supporting Document(s) SODIUM 142 mmol/L (136-145) [facility] POTASSIUM 3.7 mmol/L (3.6-5.2) [facility] CHLORIDE 105 mmol/L (100-108) [facility] CO2 28 mmol/L (22-31) [facility] ANION GAP 9 mmol/L (7-16) [facility] UREA NITROGEN 37 mg/dL (7-24) H [facility] CREATININE 9.97 mg/dL (0.80-1.30) HH [facility] ALERTED CRITICAL RESULT STEVENB(167) ON D4 AT 1536 05/07/2020 43651 BUN/CREAT RATIO 3.7 RATIO (10.0-20.0) L [facility] GLUCOSE 101 mg/dL (70-99) H [facility] CALCIUM 9.9 mg/dL (8.4-10.2) [facility] GFR 5 ml/min/1.73m2 (>59) L [facility] GFR ( AMER) 6 ml/min/1.73m2 (>59) L [facility] GFR INTERPRETATION Lab [facility] [place] --NORMAL KIDNEY FUNCTION OR MILD DISEASE - GFR >OR= 60CHRONIC KIDNEY DISEASE - GFR 15 - 59RENAL FAILURE - GFR <15 Est. GFR calculation based on the MDRDstudy equation, which assumes a steadystate for creatinine. Est. GFR should notbe used for medication dosing. ID Date Data Source [id number] 05/07/2020 02:43:43 PM EST [facility] Name Value Range Interpretation Code Description Data Kevin rce(s) Supporting Document(s) PT 11.6 s (9.2-11.9) [facility] PERFORMED AT [address] [place] [address] N Y [address] INR 1.11 [facility] SUGGESTED THERAPEUTIC RANGES USING INR F ORSTABILIZED ANTICOAGULATED PATIENTS:STANDARD DOSE THERAPY INR 2.0-3.0 DVT, PE, PREVENT DVT OR EMBOLISMHIGH DOSE THERAPY INR 2.5-3.5 PREVENT EMBOLISM FROM MECHANICAL HEART VALVE ID Date Data Source [id number] 05/07/2020 02:38:51 PM EST [facility] Name Value Range Interpretation Code Description Data Kevin rce(s) Supporting Document(s) WBC 4.6 10*3/uL (4.1-11.0) [facility] [place] RBC 2.70 10*6/uL (4.60-6.10) L [facility] HGB 8.6 g/dL (13.5-18.0) L [facility] HCT 25.8 % (41.0-53.0) L [facility] PERFORMED AT [address] [place] [address] N Y [address] MCV 95.7 fL (80.0-95.0) H [facility] MCH 31.7 pg (27.0-32.0) [facility] MCHC 33.1 g/dL (32.0-36.0) [facility] RDW 16.1 % (10.5-14.5) H [facility] PLT 130 10*3/uL (150-450) L [facility] MPV 9.6 fL (7.1-10.7) [facility] ID Date Data Source [id number] 05/07/2020 01:36:40 PM EST [facility] NT INFORMATIONPatient MRN Name Date of Age Gend*PT [id number] Cassidy Varghese 1940 80 years M SDCXPT Location Admission Date/Time Visit ID Attending [id number] 05/07/20 0921 --- Duane Beatty MD([id number]) EPI ID CSN Admitting Provider [id number] Duane Beatty MD([id number])[facility] CARDIOVASCULAR [id number] [place] [id number]-Niqcgkced CARDIAC CATHETERIZATION OPERATIVE NOTEPreoperative diagnosis: Severe symptomatic low flow-low gradient aorticstenosisPostoperative diagnosis: severe symptomatic low flow-low gradient aorticstenosisReferring Physician: Dr. Irvin Ayalaurgeon: Dr. Duane Beatty, DIOGENESnesthesia: Robby Rosa DOAnesthesia type: GeneralBrief Cardiolab NotePatient Name: Cassidy Varghese of : 1940 Age 80 yearsPrimary Physician: Hanane Deluna NP PCP Wdyq of Surgery: 05/07/2020 Gluing Machine Adjuster: Duane Beatty MD Executive Sales Manager(s): HarjinderCCS Functional Classification: NoneHistory:Risk/benifit/alternative of BAV procedure was discussed with patient/family.Risks included, but not limited to; CT, CVA, , renal impairment, vascularcomplication, and need [...] deployed in the right femoral artery.A 6 Estonian pigtail catheter was advanced through the left [...] TAVR protocolThe above was discussed with the familyDuane Beatty MD05/07/2020 1:33 PM Name Value Range Interpretation Code Description Data Kevin rce(s) Supporting Document(s) ID Date Data Source [id number] 05/07/2020 12:31:38 PM EST [facility] Name Value Range Interpretation Code Description Data Kevin rce(s) Supporting Document(s) &PDF [facility] CIVVTr2dUvJTWwHy42/FUNicJFUig8AlCZpoVNw5IYulOGOkS8BzuXoqHIyYY8FQRPHMZbGTQSOLKD7j FcG cwURQ2i3FbzNWhU26stJ7iNPKnv48uZXneHF4+DQplbmRvYmoNCjQgMCBvYmoNCiAgPDwvRmlsdGVyIC 2YaER8IDZdM36lQQZdXSHtY6HuJYIcDCs+Cf4ZRJMroMIqXS6MOfbI8Wipumh2Rt1+KJ6RanWlIfE6+b h67EqlExeMg0SAW8xzfC+EEy6M4thSC7jw2Xd/++0u Thom+M6BhRUOhWSnHsEqqfyDghBtifRvh//yW5OlMmME4g4zfq3GYn6bmeJ/EtkxPm9izi4OQ/3sephiZ [file] RhW5T3TuppFJD4JFNkAwUtLDkwMAqpEV6uGQXIHk1+YEieaZNegZgeBNNRXtL4SQz2VTncWGJMVb9D ID Date Data Source [id number] 05/07/2020 01:16:39 PM EST [facility] Name Value Range Interpretation Code Description Data Kevin rce(s) Supporting Document(s) POC ACT 246 s (80-140) H [facility] PERFORMED BY [facility] ID Date Data Source [id number] 05/07/2020 12:28:53 PM EST [facility] NT INFORMATIONPatient MRN Name Date of Age Gend*PT [id number] Cassidy Varghese 1940 80 years M SDCXPT Location Admission Date/Time Visit ID Attending Provider --- --- --- --- EPI ID CSN Admitting Provider [id number] ---Introducer AdditionsPatient location during procedure: CV hybrid [...] changes to vital signs and catheter flushed [id number] NS Name Value Range Interpretation Code Description Data Kevin rce(s) Supporting Document(s) ID Date Data Source [id number] 05/07/2020 12:28:32 PM [facility] NT INFORMATIONPatient MRN Name Date of Age Gend*PT [id number] Cassidy Varghese 1940 80 years M SDCXPT Location Admission Date/Time Visit ID Attending Provider --- --- --- --- EPI ID CSN Admitting Provider [id number] ---Central Line InsertionPatient location during procedure: CV [...] changes to vital signs and catheter flushed [id number] NS Name Value Range Interpretation Code Description Data Kevin rce(s) Supporting Document(s) ID Date Data Source [id number] 05/07/2020 12:28:01 PM [facility] NT INFORMATIONPatient MRN Name Date of Age Gend*PT [id number] Cassidy Varghese 1940 80 years M SDCXPT Location Admission Date/Time Visit ID Attending Provider --- --- --- --- EPI ID CSN Admitting Provider [id number] ---Arterial Line PlacementPatient location during procedure: CV hybrid roomIndications for arterial line: hemodynamic monitoringStaffingPerformed by: Delfino Birmingham CRNAApproved by: Robby Rosa DOCompleted: patient identified, risks and benefits discussed, [...] rce(s) Supporting Document(s) ID Date Data Source [id number] 05/07/2020 12:27:10 PM [facility] NT INFORMATIONPatient MRN Name Date of Age Gend*PT [id number] Cassidy Varghese 1940 80 years M SDCXPT Location Admission Date/Time Visit ID Attending Provider --- --- --- --- EPI ID CSN Admitting Provider [id number] ---AirwayPatient location during procedure: CV hybrid roomUrgency: electiveDifficult airway: noAdvanced airway equipment used: noStaffingPerformed by: Tiago Keyications and Patient ConditionIndications for airway management: anesthesiaPreoxygenated: [...] cmPlacement verified by: chest auscultation and + DTJW3Ogmkunfptiod: equal breath sounds bilateral and CTAGrade view: grade I - full view of glottis Name Value Range Interpretation Code Description Data Kevin rce(s) Supporting Document(s) ID Date Data Source [id number] 05/07/2020 09:35:41 AM EST [facility] Name Value Range Interpretation Code Description Data Kevin rce(s) Supporting Document(s) POC NOVA GLU 80 mg/dL (70-99) [facility] [place] [facility] ID Date Data Source [id number] 05/08/2020 03:07:40 PM EST [facility] SPEC EXP DATE 05/08/2020TEST ING SITE PERFORMED AT [address] [place] [address] АННА 13001MQKK NUMBER [id number] COMPONENT TYPE LEUKOPOOR RED CELLSUNIT DIVISION 00STATUS OF UNIT REL FROM ALLOCTRANSFUSION STATUS OK TO TRANSFUSECROSSMATCH RESULT COMPATIBLEUNIT NUMBER [id number] COMPONENT TYPE LEUKOPOOR RED CELLSUNIT DIVISION 00STATUS OF UNIT REL FROM ALLOCTRANSFUSION STATUS OK TO TRANSFUSECROSSMATCH RESULT COMPATIBLEUNIT NUMBER [id number] COMPONENT TYPE LEUKOPOOR RED CELLS (PT B)UNIT DIVISION 00STATUS OF UNIT REL FROM ALLOCTRANSFUSION STATUS OK TO TRANSFUSECROSSMATCH RESULT COMPATIBLEUNIT NUMBER [id number] COMPONENT TYPE LEUKOPOOR RED CELLS (PT B)UNIT DIVISION 00STATUS OF UNIT REL FROM ALLOCTRANSFUSION STATUS OK TO TRANSFUSECROSSMATCH RESULT COMPATIBLE Name Value Range Interpretation Code Description Data Kevin rce(s) Supporting Document(s) TRANSFUSE RED CELLS [facility] TESTING SITE PERFORMED AT [address] [place] [address] ID Date Data Source [id number] 2020 03:52:46 PM EST [facility] Name Value Range Interpretation Code Description Data Kevin rce(s) Supporting Document(s) EKG [facility] HZTFSn6tGsDKQdAya2KmMtSxANGuYT8jrbr1G9E2nCRwT0CudGZuf5ieP1TlJ0MdODEpCRCZCQ6SbSMq jb2 [file] CjAwMDAwMDEyOTcgMDAwMDAgbiAKMDAwMDAwMTQwNi IkMKImUSKvVQmeOJBwLIZ2PwJmEPMxOONyQU1hWiUxOAKgPVK0MZuiSLZmVMCublAFVPRoHGHlMKyyAD ScRYFwXLLbPGauXVKuYJYoLXD7CCBqPEMoLW7xIlIuUSFeZDEaEGDiGeK0ApRjCgLOpGLrmFlicsq7EM yhT6b3DAElHYutHN4jymEvMWIcPsclMc9tiJA8UBMkItsTYf8Dp3XnxnD9vtRyZvY6NsXuTbDcYB5T ID Date Data Source [id number] 2020 03:32:36 PM EST [facility] NT INFORMATIONPatient MRN Name Date of Age Gend*PT [id number] Cassidy Varghese 1940 80 years M OPPT Location Admission Date/Time Visit ID Attending Provider --- --- --- Duane Beatty MD([id number]) EPI ID CSN Admitting Provider [id number] ---HISTORY PHYSICALName: Cassidy Varghese : 1940 Sex: [...] 3 weeks ago and was admitted [facility] withcongestive heart failure. Cardiac catheterization dated 04/03/2020 [...] as needed for shortness of breath HistoricalProvider, Diogenesspirin EC 81 MG EC tablet Take 81 mg by mouth daily Historical Provider, Diogenestorvastatin (LIPITOR) 20 MG tablet Take 40 mg by mouth daily HistoricalProvider, MDcinacalcet (SENSIPAR) 60 MG tablet Take 60 mg by mouth every other dayHistorical Provider, Gaylelopidogrel (PLAVIX) 75 MG tablet Take 75 mg by mouth daily HistoricalProvider, MDdocusate sodium (COLACE) 100 MG capsule Take 200 mg by mouth 2 (two) times a dayHistorical Provider, epoetin alyson (EPOGEN) 66394 UNIT/ML injection Inject under the skin every [...] Take 20 mg by mouth daily HistoricalProvider, Gerevelamer (RENVELA) 800 MG tablet Take 800 mg by mouth 3 (three) times a daywith meals Historical Provider, tiotropium (SPIRIVA HANDIHALER) [address] 1 capsule intoinhaler and inhale every evening Historical Provider, Olga Lidia HistoryTobacco Use Smoking status: Former Smoker Packs/day: [...] of breath at rest, he is getting CARILSLE withminimal exertion. Denies cough, yellow sputum production [...] warm and dry.HEENT: He is normocephalic, atraumatic. [place] conjunctivae. Anicteric sclerae.Pupils are equal, round, reactive [...] PD catheter intact.GENITAL/RECTAL: Deferred.MUSCLE/SKELETAL: Strength is 5/5. Logistics Team Leader are equal.NEUROLOGICALLY: Cranial nerves II through XII are grossly intact.VASCULAR: Unable to palpate bilateral radial pulses. No right leg edema. Unableto palpate right DP/PT. Left BKA. Left AV fistula no bruit or thrill.Anesthesia complications: deniesSteroid use: He denies any oral steroid therapy for three weeks or greaterwithin the last 3 months.[facility] Frailty Scale :: 5/10 Mildly Frail (more [...] Mircera[methoxy polyethylene glycol-epoetin beta]; and Oxycodon2020 3:32 PMLyudmila Kostiv, NPThis document or parts of this document, were dictated using Cono-C speaking software. A reasonable attempt at proofreading has beenmade to minimize errors. Please call with any questions or corrections. Name Value Range Interpretation Code Description Data Kevin rce(s) Supporting Document(s) ID Date Data Source [id number] 05/03/2020 02:03:25 PM EST [facility] Name Value Range Interpretation Code Description Data Kevin rce(s) Supporting Document(s) SPECIMEN DESCRIPTION [facility] STAPH SCREEN RESULTS (ONEGSA) [facility] COMMENT [facility] GENE TO DETECT STAPH AUREUS. (2) RT-P CR WAS PERFORMED FOR THE mecA AND SCCmec GENES TO DETECT METHICILLIN RESISTANCE IN STAPH AUREUS. ID Date Data Source [id number] 2020 07:36:32 PM EST [facility] Name Value Range Interpretation Code Description Data Kevin rce(s) Supporting Document(s) NT PRO BNP 21049 pg/mL (0-450) H [facility] АННА ID Date Data Source [id number] 2020 07:36:32 PM EST [facility] Name Value Range Interpretation Code Description Data Kevin rce(s) Supporting Document(s) SODIUM 140 mmol/L (136-145) [facility] POTASSIUM 3.7 mmol/L (3.6-5.2) [facility] CHLORIDE 100 mmol/L (100-108) [facility] CO2 32 mmol/L (22-31) H [facility] ANION GAP 8 mmol/L (7-16) [facility] UREA NITROGEN 40 mg/dL (7-24) H [facility] CREATININE 10.70 mg/dL (0.80-1.30) HH [facility] CONSISTENT WITH PREVIOUS RESULTS BUN/CREAT RATIO 3.7 RATIO (10.0-20.0) L [facility] GLUCOSE 86 mg/dL (70-99) [facility] CALCIUM 8.8 mg/dL (8.4-10.2) [facility] TOTAL PROTEIN 6.1 g/dL (6.4-8.2) L [facility] ALBUMIN 2.8 g/dL (3.2-4.5) L [facility] GLOBULIN 3.3 g/dL (2.7-4.3) [facility] ALB/GLOB RATIO 0.8 RATIO [facility] ALKALINE PHOSPHATASE 92 U/L (45-117) [facility] BILIRUBIN,TOTAL 0.3 mg/dL (0.0-1.0) [facility] PLEASE NOTE:Total bilirubin results may be falselyelevated in patients taking Eltrombopag. AST (SGOT) 19 U/L (11-39) [facility] ALT (SGPT) 37 U/L (12-78) [facility] GFR 5 ml/min/1.73m2 (>59) L [facility] GFR ( AMER) 6 [...] for medication dosing. ID Date Data Source [id number] 2020 07:07:17 PM EST [facility] Name Value Range Interpretation Code Description Data Kevin rce(s) Supporting Document(s) APTT 22.5 s (22.0-34.3) [facility] ID Date Data Source [id number] 2020 07:07:17 PM EST [facility] Name Value Range Interpretation Code Description Data Kevin rce(s) Supporting Document(s) PT 11.2 s (9.2-11.9) [facility] INR 1.08 [facility] SUGGESTED THERAPEUTIC RANGES USING INR F ORSTABILIZED ANTICOAGULATED PATIENTS:STANDARD DOSE THERAPY INR 2.0-3.0 DVT, PE, PREVENT DVT OR EMBOLISMHIGH DOSE THERAPY INR 2.5-3.5 PREVENT EMBOLISM FROM MECHANICAL HEART VALVE ID Date Data Source [id number] 2020 07:03:11 PM EST [facility] Name Value Range Interpretation Code Description Data Kevin rce(s) Supporting Document(s) TOTAL PROTEIN 6.1 g/dL (6.4-8.2) L [facility] ALBUMIN 2.9 g/dL (3.2-4.5) L [facility] GLOBULIN 3.2 g/dL (2.7-4.3) [facility] ALB/GLOB RATIO 0.9 RATIO [facility] BILIRUBIN,TOTAL 0.2 mg/dL (0.0-1.0) [facility] PLEASE NOTE:Total bilirubin results may be falselyelevated in patients taking Eltrombopag. BILIRUBIN,CONJUGATED 0.1 mg/dL (0.0-0.3) [facility] BILIRUBIN,UNCONJ. 0.1 mg/dL (0.0-0.7) [facility] ALKALINE PHOSPHATASE 90 U/L (45-117) [facility] AST (SGOT) 18 U/L (11-39) [facility] ALT (SGPT) 39 U/L (12-78) [facility] ID Date Data Source [id number] 2020 06:38:00 PM EST [facility] Name Value Range Interpretation Code Description Data Kevin rce(s) Supporting Document(s) WBC 5.9 10*3/uL (4.1-11.0) [facility] [place] RBC 3.17 10*6/uL (4.60-6.10) L [facility] HGB 9.7 g/dL (13.5-18.0) L [facility] HCT 30.6 % (41.0-53.0) L [facility] MCV 96.5 fL (80.0-95.0) H [facility] MCH 30.7 pg (27.0-32.0) [facility] MCHC 31.8 g/dL (32.0-36.0) L [facility] RDW 16.7 % (10.5-14.5) H [facility] PLT 205 10*3/uL (150-450) [facility] MPV 9.7 fL (7.1-10.7) [facility] NEUT % 39.9 % (35.0-75.0) [facility] LYMPH % 39.6 % (16.0-52.0) [facility] MONO % 6.8 % (0.0-8.0) [facility] EOS % 13.4 % (0.0-5.0) H [facility] BASO % 0.3 % (0.0-4.0) [facility] NEUT # 2.3 10*3/uL (1.8-7.7) [facility] LYMPH # 2.3 10*3/uL (1.2-4.8) [facility] MONO # 0.4 10*3/uL (0.0-0.8) [facility] Eosinophils [#/volume] in Blood by Automated count 0.8 10*3/uL (0.0-0 .5) H [facility] BASO # 0.0 10*3/uL (0.0-0.2) [facility] ID Date Data Source [id number] 2020 08:42:24 PM EST [facility] SPEC EXP DATE 1PATI ENT ABO/Rh O POSITIVEANTIBODY SCREEN NEGATIVETESTING SITE PERFORMED AT [address] [place] [address] Name Value Range Interpretation Code Description Data Kevin rce(s) Supporting Document(s) TYPE AND SCREEN [facility] PATIENT ABO/Rh O POSITIVE ID Date Data Source [id number] 2020 07:50:54 PM EST [facility] Name Value Range Interpretation Code Description Data Kevin rce(s) Supporting Document(s) HEMOGLOBIN A1C @ 4.9 % (4.0-6.0) [facility] Performed using Siemens Inchelium immunoassa y.Care must be taken when interpreting WaM2grcmbyeb in patients with a hemoglobin variantor decreased erythrocyte lifespan. Values 5.7 - 6.4% suggest prediabetes.Values >=6.5% are diagnostic for diabetes.REFERENCE: DIABETES CARE 2018: 41(S13-S27). EST [facility] GLUCOSE 94 mg/dL [facility] ID Date Data Source [id number] 2020 05:15:09 PM EST [facility] Name Value Range Interpretation Code Description Data Kevin rce(s) Supporting Document(s) ROOM TEMP AB SCREEN [facility] AB SCREEN NEGATIVE ID Date Data Source [id number] 04/30/2020 01:20:00 PM EST [facility] Name Value Range Interpretation Code Description Data Kevin rce(s) Supporting Document(s) SARS coronavirus 2 RNA Not Detected [facility] This lab was ordered by [facility] and reported by [employer]. ID Date Data Source [id number] 05/03/2020 03:07:40 PM EST Lab [facility] hernandez [facility] Name Value Range Interpretation Code Description Data Kevin rce(s) Supporting Document(s) SARS-COV-2 RAY Lab [facility] Not DetectedReference range: Not Detecte d This nucleic acid amplification test was developed and its performance characteristics determined by [employer]. Nucleic acid amplification tests include RT-PCR and [...] detected) result in this assay. Performed At: [employer] [place], [place] [id number] Diane Raya PhD Ph:[id number] ID Date Data Source [id number] 04/18/2020 01:26:[address] [facility] NT INFORMATIONPatient MRN Name Date of Age Gend*PT [id number] Cassidy Varghese 1940 79 years M ---PT Location Admission Date/Time Visit ID Attending Provider --- --- --- --- EPI ID CSN Admitting Provider [id number] ---[facility] [id number] [place] [id number]: F: OFFICE CONSULTATIONDate: 04/15/20Patient: Cassidy VerdeceDOB: [id number] Physician: No ref. provider foundConsulting Physician: GRISEL [...] history of 40 years smoking quit smoking years ago patient has history of COPD [...] aday, Disp: , Rfl: epoetin alyson (EPOGEN) 40589 UNIT/ML injection, Inject under the skin every [...] file Gets together: Not on file Attends church service: Not on file Active member of [...] but not limited to bleeding, infections, arrhytmia,allergy, CT, organ failure and and also nerve injury [...] rce(s) Supporting Document(s) ID Date Data Source [id number] 04/15/2020 01:44:00 PM [facility] CAROTID DUPLEXCLINICAL HISTORY: TAVR study.COMPARISON: [...] artery stenosis.Dictated by: DONTRELL JANE M.D. on 1 Transcribed by: on 04/15/2020 03:10 PMCDS G code: ,CDS Modifier: ,cc: Name Value Range Interpretation Code Description Data Kevin rce(s) Supporting Document(s) ID Date Data Source [id number] 04/15/2020 01:11:00 PM EST [facility]IO CHEST ABDOMEN PELVIS [...] rce(s) Supporting Document(s) ID Date Data Source [id number] 04/09/2020 03:50:00 PM EST [facility] [address] [place] [address] [place], [place] [address]HBLRFTF NAME: CASSIDY VARGHESEDABERTHA OF : 1940REPORT: CONSULTATIONPATIENT NUMBER: [id number] STATUS: IPMEDICAL RECORD NUMBER: [id number]: 02CARDIOLOGY CONSULTATIONDATE OF CONSULTATION: 1REASON FOR CONSULTATION: [...] to admission and [facility] He had no associated fevers or [...] of hiscase at our TAVR conference at [facility] next week.DICTATED BY: FRANNIE Parmarictated: 04/08/2020 15:00DT: 04/08/2020 15:05Job #: [id number]: [facility] computer generated reports are notconfirmed or authenticated unless they are signed by the providerElectronically Authenticated and Edited by:DUANE BEATTY MD On 04/09/2020 03:50 PM EST Name Value Range Interpretation Code Description Data Kevin rce(s) Supporting Document(s) ID Date Data Source [id number] 04/08/2020 09:39:00 AM EST [facility] DATE OF EXAM: 04/08/2020XAM:Chest 1V Po rtable CLINICAL INDICATION: PLEURAL EFFUSION TECHNIQUE: Single chest x-ray. COMPARISON: Chest x-ray dated 04/04/2020 FINDINGS: Significantly improved bilateral pleural effusions with near complete resolution.No dense consolidations are identified. Normal cardiovascular silhouette.Unremarkable osseous structures. IMPRESSION: 1. Near complete resolution of previously identified pleural effusions. Professional interpretation performed at [facility] .End of diagnostic report for accession: [id number] Interpreted: Angel Escobar MDTr anscribed: 04/08/2020 09:37 AMSigned: 04/08/2020 09:39 AM Angel Escobar MD [facility] # [id number] [facility] # [id number] Name Value Range Interpretation Code Description Data Kevin rce(s) Supporting Document(s) ID Date Data Source [id number] 04/08/2020 02:04:19 AM EST [facility] Name Value Range Interpretation Code Description Data Kevin rce(s) Supporting Document(s) WBC 6.6 10*3/uL (4.1-11.0) [facility] [place] RBC 2.75 10*6/uL (4.60-6.10) L [facility] HGB 8.5 g/dL (13.5-18.0) L [facility] HCT 26.2 % (41.0-53.0) L [facility] MCV 95.2 fL (80.0-95.0) H [facility] MCH 30.9 pg (27.0-32.0) [facility] MCHC 32.4 g/dL (32.0-36.0) [facility] RDW 15.9 % (10.5-14.5) H [facility] PLT 209 10*3/uL (150-450) [facility] MPV 10.0 fL (7.1-10.7) [facility] ID Date Data Source [id number] 04/07/2020 08:17:54 PM EST [facility] Name Value Range Interpretation Code Description Data Kevin rce(s) Supporting Document(s) SODIUM 139 mmol/L (136-145) [facility] POTASSIUM 4.2 mmol/L (3.6-5.2) [facility] CHLORIDE 102 mmol/L (100-108) [facility] CO2 24 mmol/L (22-31) [facility] ANION GAP 13 mmol/L (7-16) [facility] UREA NITROGEN 45 mg/dL (7-24) H [facility] CREATININE 11.90 mg/dL (0.80-1.30) HH [facility] CONSISTENT WITH PREVIOUS RESULTS BUN/CREAT RATIO 3.8 RATIO (10.0-20.0) L [facility] GLUCOSE 76 mg/dL (70-99) [facility] CALCIUM 9.3 mg/dL (8.4-10.2) [facility] GFR 4 ml/min/1.73m2 (>59) L [facility] GFR ( AMER) 5 [...] for medication dosing. ID Date Data Source [id number] 04/07/2020 08:17:54 PM EST [facility] Name Value Range Interpretation Code Description Data Kevin rce(s) Supporting Document(s) TROPONIN I 0.68 ng/mL (<0.05) H [facility] Less than 0.05: Myocardial injury unlike lyGreater than or equal to 0.05: Highly suggestive of myocardial injuryCorrelation with rise and/or fall ofserial troponins, clinical symptomsand ECG changes is necessary. ID Date Data Source [id number] 04/07/2020 05:12:00 PM EST [facility] DATE OF EXAM: 04/07/2020T CHEST WITHOUT [...] This is concerning for severe aortic stenosis (Roopa T. et al. J Am Mike Cardiol Img. [...] with thyroid ultrasound. Professional interpretation performed at [facility] .End of diagnostic report for accession: [id number] Interpreted: Dorothea Parmar MDTranscribed: 04/07/2020 04:16 PMSigned: 04/07/2020 05:12 PM Dorothea Parmar MD [facility] # [id number] BILL # [id number] Name Value Range Interpretation Code Description Data Kevin [facility](s) Supporting Document(s) ID Date Data Source [id number] 04/06/2020 07:16:15 AM EST [facility] Name Value Range Interpretation Code Description Data Kevin [facility](s) Supporting Document(s) SODIUM 140 mmol/L (136-145) [facility] POTASSIUM 3.8 mmol/L (3.6-5.2) [facility] CHLORIDE 101 mmol/L (100-108) [facility] CO2 28 mmol/L (22-31) [facility] ANION GAP 11 mmol/L (7-16) [facility] UREA NITROGEN 41 mg/dL (7-24) H [facility] CREATININE 11.10 mg/dL (0.80-1.30) HH [facility] CONSISTENT WITH PREVIOUS RESULTS BUN/CREAT RATIO 3.7 RATIO (10.0-20.0) L [facility] GLUCOSE 100 mg/dL (70-99) H [facility] CALCIUM 8.7 mg/dL (8.4-10.2) [facility] PHOSPHORUS 5.6 mg/dL (2.5-4.5) H [facility] ALBUMIN 2.5 g/dL (3.2-4.5) L [facility] GFR 5 ml/min/1.73m2 (>59) L [facility] GFR ([facility]) 5 ml/min/1.73m2 (>59) L [facility] GFR INTERPRETATION Lab [facility] --NORMAL KIDNEY FUNCTION OR MILD DISEASE - GFR >OR= 60CHRONIC KIDNEY DISEASE - GFR 15 - 59RENAL FAILURE - GFR <15 Est. GFR calculation based on the MDRDstudy equation, which assumes a steadystate for creatinine. Est. GFR should notbe used for medication dosing. ID Date Data Source [id number] 04/06/2020 06:47:25 AM EST [facility] Name Value Range Interpretation Code Description Data Kevin rce(s) Supporting Document(s) WBC 5.4 10*3/uL (4.1-11.0) [facility] [place] RBC 2.61 10*6/uL (4.60-6.10) L [facility] HGB 8.3 g/dL (13.5-18.0) L [facility] HCT 25.2 % (41.0-53.0) L [facility] MCV 96.5 fL (80.0-95.0) H [facility] MCH 31.9 pg (27.0-32.0) [facility] MCHC 33.0 g/dL (32.0-36.0) [facility] RDW 16.7 % (10.5-14.5) H [facility] PLT 211 10*3/uL (150-450) [facility] MPV 9.4 fL (7.1-10.7) [facility] ID Date Data Source [id number] 04/05/2020 09:40:55 PM EST [facility] Name Value Range Interpretation Code Description Data Kevin rce(s) Supporting Document(s) WBC 5.4 10*3/uL (4.1-11.0) [facility] [place] RBC 2.86 10*6/uL (4.60-6.10) L [facility] HGB 9.0 g/dL (13.5-18.0) L [facility] HCT 27.8 % (41.0-53.0) L [facility] MCV 97.4 fL (80.0-95.0) H [facility] MCH 31.5 pg (27.0-32.0) [facility] MCHC 32.4 g/dL (32.0-36.0) [facility] RDW 17.0 % (10.5-14.5) H [facility] PLT 210 10*3/uL (150-450) [facility] MPV 9.2 fL (7.1-10.7) [facility] ID Date Data Source [id number] 04/04/2020 01:46:30 PM EST [facility] Name Value Range Interpretation Code Description Data Kevin rce(s) Supporting Document(s) LACTIC ACID 1.6 mmol/L (0.4-2.0) [facility] [place] ID Date Data Source [id number] 04/04/2020 12:32:00 PM EST [facility] DATE OF EXAM: 04/04/2020P CHEST INDICAT ION: Congestion COMPARISON: 04/01/2020 TECHNIQUE: A single AP film of the chest was obtained. FINDINGS: The heart is large and aorta atherosclerotic. There are bilateral pleural effusions with bibasilar pneumonia versus atelectasis. IMPRESSION: Cardiomegaly with bilateral effusions and bibasilar pneumonia versus atelectasis H1End of diagnostic report for accession: [id number] Interpreted: John Vernon MDTranscribed: 04/04/2020 12:32 PMSigned: 04/04/2020 12:32 PM John Vernon MD [facility] # [id number] BILL # [id number] Name Value Range Interpretation Code Description Data Kevin rce(s) Supporting Document(s) ID Date Data Source [id number] 04/04/2020 05:15:00 PM EST [facility] [id number] [place], [place] [address]MHRYSXS NAME: CASSIDY VARGHESEDATE OF : 1940REPORT: DISCHARGE SUMMARYPATIENT NUMBER: [id number] STATUS: OF ADMISSION:DATE OF DISCHARGE:ROOM:DISCHARGE DIAGNOSES: Atypical pneumonia; systolic heart failure, new inonset, with single-vessel disease; end-stage renal disease, on peritonealdialysis; peripheral vascular disease; hypotension; and hyperkalemia.HOSPITAL COURSE: When I admitted Mr. Varghese, it was on 03/30/2020, hischief complaint after being transferred from [facility] for elevatedtroponins was shortness of breath. In [...] with his ao rtic valve would give tohim. In this condition, it was suggested that he be consulted upon byPalliative Care by Dr. Sung. So, Palliative Care had seen him. Hewants to be a full code despite whatever happened in between. On themorning of 04/04/2020, I had intended to discharge him home; however, hewas a code M for hypotension and unresponsiveness. Dr. Mwcilliams had to shake him violently to awaken [...] FRANNIE Ramirezictated: 04/04/2020 11:15DT: 04/04/2020 11:25Job #: [id number]: [facility] computer generated reports are notconfirmed or authenticated unless they are signed by the providerElectronically Authenticated and Edited by:Everardo Kincaid MD On 04/04/2020 05:15 PM EST Name Value Range Interpretation Code Description Data Kevin rce(s) Supporting Document(s) ID Date Data Source [id number] 04/04/2020 10:15:41 AM EST [facility] Name Value Range Interpretation Code Description Data Kevin rce(s) Supporting Document(s) POC GLUCOSE 111 mg/dL (70-99) H [facility] PERFORMED BY CLINICAL STAFF ID Date Data Source [id number] 04/04/2020 01:39:20 PM EST [facility] Name Value Range Interpretation Code Description Data Kevin rce(s) Supporting Document(s) WBC 4.6 10*3/uL (4.1-11.0) [facility] [place] RBC 3.00 10*6/uL (4.60-6.10) L [facility] HGB 9.3 g/dL (13.5-18.0) L [facility] HCT 29.2 % (41.0-53.0) L [facility] MCV 97.4 fL (80.0-95.0) H [facility] MCH 31.0 pg (27.0-32.0) [facility] MCHC 31.8 g/dL (32.0-36.0) L [facility] RDW 17.7 % (10.5-14.5) H [facility] PLT 232 10*3/uL (150-450) [facility] MPV 9.1 fL (7.1-10.7) [facility] ID Date Data Source [id number] 04/04/2020 08:39:42 AM EST [facility] Name Value Range Interpretation Code Description Data Kevin rce(s) Supporting Document(s) SODIUM 142 mmol/L (136-145) [facility] POTASSIUM 4.0 mmol/L (3.6-5.2) [facility] CHLORIDE 103 mmol/L (100-108) [facility] CO2 29 mmol/L (22-31) [facility] ANION GAP 10 mmol/L (7-16) [facility] UREA NITROGEN 40 mg/dL (7-24) H [facility] CREATININE 11.40 mg/dL (0.80-1.30) HH [facility] CONSISTENT WITH PREVIOUS RESULTS BUN/CREAT RATIO 3.5 RATIO (10.0-20.0) L [facility] GLUCOSE 127 mg/dL (70-99) H [facility] CALCIUM 9.2 mg/dL (8.4-10.2) [facility] GFR 4 ml/min/1.73m2 (>59) L [facility] GFR ( AMER) 5 ml/min/1.73m2 (>59) L [facility] GFR INTERPRETATION [facility] --NORMAL KIDNEY FUNCTION OR MILD DISEASE - GFR >OR= 60CHRONIC KIDNEY DISEASE - GFR 15 - 59RENAL FAILURE - GFR <15 Est. GFR calculation based on the MDRDstudy equation, which assumes a steadystate for creatinine. Est. GFR should notbe used for medication dosing. ID Date Data Source [id number] 04/03/2020 06:10:54 PM EST [facility] Name Value Range Interpretation Code Description Data Kevin rce(s) Supporting Document(s) POC GLUCOSE 83 mg/dL (70-99) [facility] Zbigniew Keller NOTIFIED NURSEPERFORMED BY CLINICAL S TAFF ID Date Data Source [id number] 04/09/2020 07:29:55 AM EST [facility] Name Value Range Interpretation Code Description Data Kevin rce(s) Supporting Document(s) SARS COV2 SOURCE [facility] SARS COV 2 BY PCR [facility] Not Detected INTERPRETIVE INFORMATION: S ARS-CoV-2 (COVID-19) [...] In compliance with this authorization, please visit [email or web address] for more information and to access the [...] collection, transport, storage, and handling. Performed by [employer], [address] [place] [id number] [email or web address], Shital Love MD, Lab. Director ID Date Data Source [id number] 04/03/2020 07:18:25 AM EST [facility] Name Value Range Interpretation Code Description Data Kevin rce(s) Supporting Document(s) PT 11.5 s (9.2-11.9) [facility] INR 1.10 [facility] SUGGESTED THERAPEUTIC RANGES USING INR F ORSTABILIZED ANTICOAGULATED PATIENTS:STANDARD DOSE THERAPY INR 2.0-3.0 DVT, PE, PREVENT DVT OR EMBOLISMHIGH DOSE THERAPY INR 2.5-3.5 PREVENT EMBOLISM FROM MECHANICAL HEART VALVE ID Date Data Source [id number] 04/03/2020 07:17:00 AM EST [facility] Name Value Range Interpretation Code Description Data Kevin rce(s) Supporting Document(s) SODIUM 142 mmol/L (136-145) [facility] POTASSIUM 4.0 mmol/L (3.6-5.2) [facility] CHLORIDE 103 mmol/L (100-108) [facility] CO2 28 mmol/L (22-31) [facility] ANION GAP 11 mmol/L (7-16) [facility] UREA NITROGEN 41 mg/dL (7-24) H [facility] CREATININE 11.50 mg/dL (0.80-1.30) HH [facility] CONSISTENT WITH PREVIOUS RESULTS BUN/CREAT RATIO 3.6 RATIO (10.0-20.0) L [facility] GLUCOSE 143 mg/dL (70-99) H [facility] CALCIUM 8.8 mg/dL (8.4-10.2) [facility] GFR 4 ml/min/1.73m2 (>59) L [facility] GFR ( AMER) 5 [...] for medication dosing. ID Date Data Source [id number] 04/02/2020 08:08:11 AM EST [facility] Name Value Range Interpretation Code Description Data Kevin rce(s) Supporting Document(s) SODIUM 143 mmol/L (136-145) [facility] POTASSIUM 4.2 mmol/L (3.6-5.2) [facility] CHLORIDE 105 mmol/L (100-108) [facility] CO2 28 mmol/L (22-31) [facility] ANION GAP 10 mmol/L (7-16) [facility] UREA NITROGEN 43 mg/dL (7-24) H [facility] CREATININE 11.30 mg/dL (0.80-1.30) HH [facility] CONSISTENT WITH PREVIOUS RESULTS BUN/CREAT RATIO 3.8 RATIO (10.0-20.0) L [facility] GLUCOSE 139 mg/dL (70-99) H [facility] CALCIUM 8.8 mg/dL (8.4-10.2) [facility] GFR 4 ml/min/1.73m2 (>59) L [facility] GFR ( AMER) 5 ml/min/1.73m2 (>59) L [facility] GFR INTERPRETATION Lab [facility] e of [facility] --NORMAL KIDNEY FUNCTION OR MILD DISEASE - GFR >OR= 60CHRONIC KIDNEY DISEASE - GFR 15 - 59RENAL FAILURE - GFR <15 Est. GFR calculation based on the MDRDstudy equation, which assumes a steadystate for creatinine. Est. GFR should notbe used for medication dosing. ID Date Data Source [id number] 04/14/2020 04:36:00 PM EST [facility] [place], [place] [address]PATIENT NAME: KARAN VARGHESE OF : 1940REPORT: CONSULTATIONPATIENT NUMBER: [id number] STATUS: :DATE OF CONSULTATION: 04/01/2020I have been asked by Dr. 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 He is admitted to [facility] withcongestive heart failure, worsening dyspnea, and found [...] but probably moremild on the right and leyi-[id number] on the left. He is denying anychest pressure, pain, tightness, fullness, or shortness of breath. He hasend-stage renal disease, having underwent bilateral nephrectomy for cancerand maintained on hemodialysis for a protracted period of time. Hismedications upon transfer include aspirin 81 mg a day; Symbicort; Rnsuroic47 mg Tuesday, Tuesday, and Tuesday; clopidogrel 75 [...] caused his father's . His mother in [facility] home at an advanced age and he was also unsure about the details. He had been in pulmonary edema on the chest x-ray up at [place]. He isallergic to amlodipine, hydralazine, Indocin, minoxidil, [...] while he is here as well.DICTATED BY: Irvin Sung MDDictated: 04/01/2020 13:46DT: 04/01/2020 13:52Job #: [id number]: Bob Buenrostro MD Team [facility] AlmaNOTE: [facility] computer generated reports are notconfirmed or authenticated unless they are signed by the providerElectronically Authenticated by:IRVIN SUNG MD On 04/14/2020 04:36 PM EST Name Value Range Interpretation Code Description Data Kevin rce(s) Supporting Document(s) ID Date Data Source [id number] 04/01/2020 06:26:00 PM EST [facility] DATE OF EXAM: 04/01/2020EXAMINATION:Ches t Radiograph. One [...] consolidation.Borderline cardiac enlargement. Professional interpretation performed at [facility] .End of diagnostic report for accession: [id number] Interpreted: Angel Hernandez MDTranscribed: 04/01/2020 06:20 PMSigned: 04/01/2020 06:26 PM Angel Hernandez MD [facility] # [id number] BILL # [id number] Name Value Range Interpretation Code Description Data Kevin rce(s) Supporting Document(s) ID Date Data Source [id number] 04/01/2020 04:53:47 PM EST [facility] Name Value Range Interpretation Code Description Data Kevin rce(s) Supporting Document(s) CHOLESTEROL @ 128 mg/dL (0-200) [facility] TRIGLYCERIDE @ 52 mg/dL (30-200) [facility] HDL CHOLESTEROL @ 50 mg/dL (>40) [facility] PER NCEP ATP III GUIDELINES:RESULTS BALTA NUNEZ 40 MG/DL ARE SUGGESTIVEOF INCREASED RISK FOR CORONARY ARTERYDISEASE. RESULTS > OR = TO 60 MG/DL ARECONSIDERED A NEGATIVE RISK FACTOR. CHOL/HDL RATIO 2.6 RATIO [facility] INTERPRETATION OF CHOL-HDL RATIO CHD RISK FEMALE MALEVERY HIGH >8.3 >14.3HIGH 5.6- 8.3 6.7- 14.3AVERAGE 3.7- 5.6 4.0- 6.7BELOW AVERAGE 2.5- 3.7 2.7- 4.0PROTECTED <2.5 <2.7 LDL CHOL (CALC) 68 mg/dL (<130) [facility] PER NCEP ATP III GUIDELINES: OPTIMAL < 100 NEAR OPTIMAL 100 - 129BORDERLINE HIGH 130 - 159 HIGH 160 - 189 VERY HIGH > 189 ID Date Data Source [id number] 04/01/2020 04:53:47 PM EST [facility] Name Value Range Interpretation Code Description Data Kevin rce(s) Supporting Document(s) IRON,TOTAL @ 35 ug/dL (35-150) [facility] [place] JJ UIBC @ 171 ug/dL (130-375) [facility] TIBC @ 206 ug/dL (250-450) L [facility] % SATURATION 17 % (12-50) [facility] [place] JJ ID Date Data Source [id number] 04/01/2020 04:53:47 PM EST [facility] Name Value Range Interpretation Code Description Data Kevin rce(s) Supporting Document(s) FERRITIN @ 1449 ng/mL (26-388) H [facility] ID Date Data Source [id number] 04/01/2020 11:39:24 AM EST [facility] Name Value Range Interpretation Code Description Data Kevin rce(s) Supporting Document(s) PROCALCITONIN @ 0.28 ng/mL (<0.10) H [facility] INTERPRETATION OF RESULT < 0.51 Sepsis is not likely.0.51-2.00 Sepsis is possible, but other conditions are known to elevate PCT.2.01-9.99 Sepsis is likely, unless other causes are known. > 9.99 Important systemic inflammatory response, almost exclusively due to severe bacterial sepsis or septic shock.PERFORMED AT [address] [place] [address] ID Date Data Source [id number] 04/01/2020 10:03:43 AM EST [facility] Name Value Range Interpretation Code Description Data Kevin rce(s) Supporting Document(s) SODIUM 144 mmol/L (136-145) [facility] POTASSIUM 4.4 mmol/L (3.6-5.2) [facility] CHLORIDE 104 mmol/L (100-108) [facility] CO2 31 mmol/L (22-31) [facility] ANION GAP 9 mmol/L (7-16) [facility] UREA NITROGEN 48 mg/dL (7-24) H [facility] CREATININE 11.20 mg/dL (0.80-1.30) HH [facility] CONSISTENT WITH PREVIOUS RESULTS BUN/CREAT RATIO 4.3 RATIO (10.0-20.0) L [facility] GLUCOSE 173 mg/dL (70-99) H [facility] CALCIUM 8.7 mg/dL (8.4-10.2) [facility] GFR 4 ml/min/1.73m2 (>59) L [facility] GFR ( AMER) 5 [...] for medication dosing. ID Date Data Source [id number] 03/31/2020 05:23:11 PM EST [facility] Name Value Range Interpretation Code Description Data Kevin rce(s) Supporting Document(s) STOOL OCCULT BLOOD (NEG) [facility] ID Date Data Source [id number] 03/31/2020 08:45:05 AM EST [facility] Name Value Range Interpretation Code Description Data Kevin rce(s) Supporting Document(s) PHOSPHORUS 7.5 mg/dL (2.5-4.5) H [facility] ID Date Data Source [id number] 03/31/2020 08:45:05 AM EST [facility] Name Value Range Interpretation Code Description Data Kevin rce(s) Supporting Document(s) MAGNESIUM 1.7 mg/dL (1.7-2.4) [facility] ID Date Data Source [id number] 03/31/2020 08:45:05 AM EST [facility] Name Value Range Interpretation Code Description Data Kevin rce(s) Supporting Document(s) TROPONIN I 0.42 ng/mL (<0.05) H [facility] Less than 0.05: Myocardial injury unlike lyGreater than or equal to 0.05: Highly suggestive of myocardial injuryCorrelation with rise and/or fall ofserial troponins, clinical symptomsand ECG changes is necessary. ID Date Data Source [id number] 03/31/2020 07:22:36 AM EST [facility] Name Value Range Interpretation Code Description Data Kevin rce(s) Supporting Document(s) SODIUM 142 mmol/L (136-145) [facility] POTASSIUM 5.0 mmol/L (3.6-5.2) [facility] CHLORIDE 103 mmol/L (100-108) [facility] CO2 29 mmol/L (22-31) [facility] ANION GAP 10 mmol/L (7-16) [facility] UREA NITROGEN 51 mg/dL (7-24) H [facility] CREATININE 11.00 mg/dL (0.80-1.30) HH [facility] CONSISTENT WITH PREVIOUS RESULTS BUN/CREAT RATIO 4.6 RATIO (10.0-20.0) L [facility] GLUCOSE 104 mg/dL (70-99) H [facility] CALCIUM 9.6 mg/dL (8.4-10.2) Lab [facility] GFR 5 ml/min/1.73m2 (>59) L [facility] GFR ( AMER) 6 [...] for medication dosing. ID Date Data Source [id number] 03/31/2020 06:50:27 AM EST [facility] Name Value Range Interpretation Code Description Data Kevin rce(s) Supporting Document(s) WBC 5.2 10*3/uL (4.1-11.0) [facility] RBC 2.82 10*6/uL (4.60-6.10) L [facility] HGB 9.0 g/dL (13.5-18.0) L [facility] HCT 27.7 % (41.0-53.0) L [facility] MCV 98.2 fL (80.0-95.0) H [facility] MCH 31.8 pg (27.0-32.0) [facility] MCHC 32.4 g/dL (32.0-36.0) [facility] RDW 16.9 % (10.5-14.5) H [facility] PLT 240 10*3/uL (150-450) [facility] MPV 9.3 fL (7.1-10.7) [facility] ID Date Data Source [id number] 03/30/2020 01:17:00 PM EST [facility] [address] [place] [address] RESPIRATORY CARE REPORT ==== ---------NAME------- NUMBER SEX AGE ADMIT DISC. XRAY# F/C TYPEGROCE CASSIDY Fair [id number] M 79 03/29/20 03/30/20 [id number] MB4 E/R DATE OF : 1940 M/R# [id number] #: [id number] TR-05 LOCATION: EMERGENCY DEPT EKG [id number] COMPLE TE:03/30/20 00:30 VMT [id number] PHYSICIAN: AG Name Value Range Interpretation Code Description Data Kevin rce(s) Supporting Document(s) ID Date Data Source [id number] 03/30/2020 08:57:13 AM EST [facility] Name Value Range Interpretation Code Description Data Kevin rce(s) Supporting Document(s) TROPONIN I 0.38 ng/mL (<0.05) H [facility] Less than 0.05: Myocardial injury unlike lyGreater than or equal to 0.05: Highly suggestive of myocardial injuryCorrelation with rise and/or fall ofserial troponins, clinical symptomsand ECG changes is necessary. ID Date Data Source [id number] 03/30/2020 08:57:13 AM EST [facility] Name Value Range Interpretation Code Description Data Kevin rce(s) Supporting Document(s) SODIUM 138 mmol/L (136-145) [facility] POTASSIUM 6.1 mmol/L (3.6-5.2) [facility] CHLORIDE 102 mmol/L (100-108) [facility] CO2 29 mmol/L (22-31) [facility] ANION GAP 7 mmol/L (7-16) [facility] UREA NITROGEN 51 mg/dL (7-24) H [facility] CREATININE 10.90 mg/dL (0.80-1.30) HH [facility] K,CRRESULT(S) CALLED TO AND READ BACK BY GHADA IN ER 03.30.20 [id number] BUN/CREAT RATIO 4.7 RATIO (10.0-20.0) L [facility] GLUCOSE 90 mg/dL (70-99) [facility] CALCIUM 8.8 mg/dL (8.4-10.2) [facility] GFR 5 ml/min/1.73m2 (>59) L [facility] GFR ( AMER) 6 [...] for medication dosing. ID Date Data Source [id number] 03/30/2020 08:08:34 AM EST [facility] Name Value Range Interpretation Code Description Data Kevin rce(s) Supporting Document(s) WBC 5.9 10*3/uL (4.1-11.0) [facility] RBC 2.42 10*6/uL (4.60-6.10) L [facility] HGB 7.7 g/dL (13.5-18.0) L [facility] HCT 23.5 % (41.0-53.0) L [facility] MCV 96.8 fL (80.0-95.0) H [facility] MCH 31.8 pg (27.0-32.0) [facility] MCHC 32.9 g/dL (32.0-36.0) [facility] RDW 16.8 % (10.5-14.5) H [facility] PLT 227 10*3/uL (150-450) [facility] MPV 9.2 fL (7.1-10.7) [facility] NEUT % 56.2 % (35.0-75.0) [facility] LYMPH % 30.3 % (16.0-52.0) [facility] MONO % 7.1 % (0.0-8.0) [facility] EOS % 5.5 % (0.0-5.0) H [facility] BASO % 0.9 % (0.0-4.0) [facility] NEUT # 3.3 10*3/uL (1.8-7.7) [facility] LYMPH # 1.8 10*3/uL (1.2-4.8) [facility] MONO # 0.4 10*3/uL (0.0-0.8) [facility] Eosinophils [#/volume] in Blood by Automated count 0.3 10*3/uL (0.0-0 .5) [facility] BASO # 0.1 10*3/uL (0.0-0.2) [facility] ID Date Data Source [id number] 03/29/2020 07:36:00 PM EST [facility] 1 OrderSheet [facility] Emergency Department [address] [place] [address] Phone #: ext- [phone] 03/29/2020 19:35 Patient: CASSIDY VARGHESE Sex: M : 1940 Age: 79yWEIGHT:70.3 kg (S) HEIGHT:68 inches (S) BMI:23.6ALLERGIES: Amlodine, Hydrolazine, Indocin, Minocodil, Mivcera, OPIODSCHIEF COMPLAINT: dyspnea, CHFDIAGNOSIS: Hypoxemia, Congestive heart failure, Renal failure syndrome, ProblemLAB ORDERSOrder Description Priority Entered Acknowledged InitialedCB w Diff STAT 19:57 03/29/2020 21:17 Luiz Luong, Sharron Skaggs RN ;Troponin-T STAT 19:57 03/29/2020 21:17 Sharron Davenport RN ;CMP STAT 19:57 03/29/2020 21:17 Sharron Mcelroy RN ;BNP STAT 19:57 03/29/2020 21:17 Sharron Mcelroy RN ;PT/INR STAT 19:57 03/29/2020 21:17 Sharron Mcelroy RN ;CORONAVIRUS STAT 22:18 03/29/2020 Initialed: 22:33 Luiz Skaggs RNCOVID-19 (Not Sharron Luong Cancelled: Other 22:38 Valentín Whitttomatic as ; R.N.Defined by CDC)(03/27/2020) (FirstTest) (NotHospitalized) (Not) (NotResident inCongregate CareSetting) (NotEmployed inHealthcare Setting)COVID-19 CAH STAT 22:39 03/29/2020 22:39 Luiz(Symptomatic as Katie Whitt RNDefined by CDC) R.N.; Verbal order(03/29) per; Ag, 2 OrderSheet [facility] Department [address] [place] [address] Phone #: ext- [phone] 03/29/2020 19:35 Patient: [...] Lock 19:57 03/29/2020 21:17 Luiz 3 OrderSheet [facility] [address] [place] [address] Phone #: ext- [phone] 03/29/2020 19:35 Patient: CASSIDY VARGHESE Sex: M : 1940 Age: 79y Sharron Luong RN ;Vitals 19:57 03/29/2020 20:35 Sharron Mcelroy RN ;Oxygen titrate to 19:57 03/29/2020 20:35 Cisfon82% Sharron Luong RN ;Pulse Oximetry 19:57 03/29/2020 20:35 KrishnaenContinuous Sharron Luong RN ;Saline Lock 19:57 03/29/2020 Cancelled: Duplicate Order 21:18 Sharron Mcelroy RN ;Consult - 23:37 03/29/2020 23:55 StevenHospitalist Sharron Luong RN ;[Electronically signed by Luiz Skaggs RN (02:47 03/30/2020)][Electronically signed by Sharron Luong (06:40 03/30/2020)][Electronically locked by Luiz Skaggs RN (02:47 03/30/2020)] Name Value Range Interpretation Code Description Data Kevin rce(s) Supporting Document(s) ID Date Data Source [id number] 03/29/2020 07:36:00 PM EST [facility] 1 Medication Reconciliation Report [facility] Emergency Department [address] [place] [address] Phone #: ext- [phone] 03/29/2020 19:35 Patient: [...] mg) 1 tablet, 3x a day, SBP falic108 Nepro Oral 1-2 glasses, daily Nortriptyline HCl [...] the Emergency Department: 2 Medication Reconciliation Report [facility] [address] [place] [address] Phone #: ext- [phone] 03/29/2020 19:35 Patient: CASSIDY VARGHESE Sex: M : 1940 Age: 79yASPIRIN CHEWABLE 81 MG [PO] PO 324 mg, administered: 22:22 03/29/2020The following Medications were prescribed to the patient:None. Name Value Range Interpretation Code Description Data Kevin rce(s) Supporting Document(s) ID Date Data Source [id number] 03/29/2020 07:36:00 PM EST [facility] 1 Medication Administration Record [facility] [address] [place] [address] Phone #: ext- [phone] 03/29/2020 19:35 Patient: CASSIDY VARGHESE Sex: M : 1940 Age: 79yWeight: 70.3 kgHeight/Length: 68 inBMI: 23.6ALLERGIES: Mivcera, Minocodil, Indocin, Hydrolazine, Amlodine, OPIODS Date/Time Medication Administered Medication OrderedGiven ASPIRIN CHEWABLE 81 MG [PO] Aspirin PO Chewable 81 mg 96491:22 03/29/2020 Dose: 324 mg Tablets PO mg (NOW)Luiz Skaggs RN Name Value Range Interpretation Code Description Data Kevin rce(s) Supporting Document(s) ID Date Data Source [id number] 03/29/2020 07:36:00 PM [facility] 1 General Instructions [facility] [address] [place] [address] Phone #: ext- [phone] 03/29/2020 19:35 Patient: CASSIDY VARGHESE Sex: M : 1940 Age: 79yAcute moderate left ventricular congestive heart failure.Severe chronic renal failure- end stage disease.Hypoxia.Hyperkalemia; (elevated troponin,).(Electronically signed by Sharron Luong 03/30/2020 06:40) Name Value Range Interpretation Code Description Data Kevin rce(s) Supporting Document(s) ID Date Data Source [id number] 03/29/2020 07:36:00 PM [facility] 1 Clinical Report - Nurses [facility] Department [address] [place] [address] Phone #: ext [phone] 03/29/2020 19:35 Patient: CASSIDY VARGHESE Sex: M : 1940 Age: 79yTRIAGEArrived by EMS. Historian: patient.Triage time: 19:39 03/29/2020. Acuity: LEVEL 3.This is a recurrent problem. Symptoms are constant and still present (2 days).Treatment RELATIONS LIAISON:(O2).SEPSIS SCREEN: SIRS SCREEN NEGATIVE. SEPSIS SCREEN NEGATIVE. No suspected or confirmedsigns of infection present. --19:57 03/29/20 Luiz Skaggs RN19:39 03/29/20. BP: 114/83 (regular adult cuff) taken on the right arm, via an automated monitor, whilelying. MAP: 93. HR: 102 (regular, normal rate and strong). RR: 20 (regular, unlabored and normal). L3phxtawwcfd: 83% on room air. Temp: 98.1 F. Pain level now: 11/11. --19:57 03/29/20 Luiz Skaggs RNChief Complaint: SHORTNESS OF BREATH.19:38 03/29/20. --02:47 03/30/20 Luiz Skaggs RN.Weight: 70.3 kg stated. Height/Length: 68 inches Per Patient. BMI: 23.6. --19:41 03/29/20 Luiz Skaggs RN.MedicationsMidodrine HCl Oral (Tablet 5 mg) 1 tablet, 3x a day (SBP srute461). --19:46 03/29/20 Luiz Skaggs RN Omeprazole Oral [...] Skaggs RN 2 Clinical Report - Nurses [facility] Department [address] [place] [address] Phone #: ext- [phone] 03/29/2020 19:35 Patient: CASSIDY VARGHESE Sex: M : 1940 Age: 79y Amlodine. [...] Assessment The patient states feels the same. --57 03/29/20 Luiz Skaggs RN.PHYSICAL ASSESSMENTTo room via stretcher. 3 Clinical Report - Nurses [facility] Department [address] [place] [address] Phone #: ext- [phone] 03/29/2020 19:35 Patient: CASSIDY VARGHESE Sex: M [...] administered by nasal cannula at 4 liters. monitor and storage bin tender, NIBP monitor and pulse oximeterplaced on patient; school bus monitor- Lead II. Patient gowned. Head of bed [...] Skaggs RN 4 Clinical Report - Nurses [facility] [address] [place] [address] Phone #: ext- [phone] 03/29/2020 19:35 Patient: CASSIDY VARGHESE Sex: M : 1940 Age: 79y Reassessment after medication administered. No adverse reaction. He is resting quietly. Overall patient status is the same. RESPIRATORY: No respiratory distress. Decreased breath sounds in the bases bilaterally. CVS: Normal sinus rhythm noted. SKIN: Skin is warm and dry. Skin color within normal limits. --23:09 03/29/20 Luiz Skaggs RN 23:08 03/29/20. BP: 119/88 (regular adult cuff) taken on the right arm, via an automated monitor, while lying. MAP: 98. HR: 104 (regular, normal rate and strong). RR: 22 (regular, unlabored and normal). O2 saturation: 97% on nasal cannula at 2 liters/minute. Temp: 98.3 F (oral). Pain level now: 8/10. --23:09 03/29/20 Luiz Skaggs RN Reassessment acuity: LEVEL 3. [...] --02:05 03/30/20 Luiz Skaggs RN Transferred to [facility]. Emtala forms provided to transport team and transfer facility via paper. Transported via ambulance by armature bander with monitor, O2 and mask. Patient's personal items; items were transported with the patient. --02:45 03/30/20 Luiz Skaggs RN 02:44 03/30/20. BP: 114/74 (regular adult cuff) taken on the right arm, via an automated monitor, while lying. MAP: 87. HR: 103 (regular, normal rate and strong). RR: 20 (regular, unlabored and normal). O2 5 Clinical Report - Nurses [facility] Department [address] [place] [address] Phone #: ext- [phone] 03/29/2020 19:35 [id number] Sex[facility] M : 1940 Age: 79y saturation: 94% on nasal cannula at 2 liters/minute. Temp: 97.3 F (oral). Pain level now: 11/11. --02:45 03/30/20 Luiz Skaggs RN Departure time: 02:45 03/30/2020. --02:45 03/30/20 Luiz Skaggs RN.Locked/Released at 03/30/2020 02:47 by Luiz Skaggs RN Name Value Range Interpretation Code Description Data Kevin rce(s) Supporting Document(s) ID Date Data Source [id number] 03/29/2020 07:36:00 PM [facility] 1 Clinical Report - Physicians/Mid Levels [facility] [address] [place] [address] Phone #: ext- [phone] 03/29/2020 19:35 Patient: [...] Bronchospasm. Respiratory Failure. 2 Clinical Report - Physicians/[facility] Emergency Department [address] [place] [address] Phone #: ext- [phone] 03/29/2020 19:35 Patient: [...] mg) 1 tablet, 3x a day (SBP acvhc604). Allergies: Amlodine. Hydrolazine. Indocin. Minocodil. Mivcera. OPIODS.SOCIAL [...] supple. 3 Clinical Report - Physicians/Mid Levels [facility] Department [address] [place] [address] Phone #: mdt- [phone] 03/29/2020 19:35 Patient: CASSIDY VARGHESE Sex: M [...] Mar 29, 2020 10:08:32 PM EST by: Bnoifacio Zavala MD Diplomate, [place] [employer]). Laboratory Tests: CBC w Diff: (MIKE: 03/29/2020 20:50) ( MsgRcvd 03/29/2020 21:04) Final results Test Result Flag Units (Reference) 4 Clinical Report - Physicians/Mid Levels [facility] Department [address] [place] [address] Phone #: ext- [phone] 03/29/2020 19:35 Patient: [...] MORPH NOT INDICATEDTroponin-T: (MIKE: 03/29/2020 20:50) ( MsgRcvd 03/29/2020 21:35) Final results Test Result Flag Units (Reference) TROPONIN T 0.23 HH NG/ML (0.00 - 0.10) CALL/ READ BACK JAYDON IN ED BY: TALITA DATE/TIME [id number] TROPONIN T0.1 ng/ml Recommended as the clinical [...] BACK TAHIRA IN ED BY: TALITA DATE/TIME /2145 BUN/CREAT 4 L (8 - 27) TOTAL PROTEIN 5.3 L G/DL (6.3 - 8.2) ALBUMIN 3.3 L G/DL (3.9 - 5.0) GLOBULIN 2.0 L GM/DL (2.4 - 3.2) A/G RATIO 1.7 (0.8 - 2.0) CALCIUM 9.2 MG/DL (8.4 - 10.2) 5 Clinical Report - Physicians/Mid Levels [facility] Emergency Department [address] [place] [address] Phone #: ext- [phone] 03/29/2020 19:35 Patient: [...] Male GFR Interprentation 20-49 yrs >60 mL/min Bsrwal35-56 yrs >56 mL/min Normal 60-69 yrs >49 mL/min Normal 70-79yrs>42 mL/min Normal 80 and above >35 mL/min Normal Female GFRInterpretation 20-39 yrs >60 mL/min Normal 40-49 yrs >58 mL/minNormal 50- 59 yrs >51 mL/min Normal 60-69 yrs >45 mL/min Sougij07-76 yrs >39 mL/min Normal 80 and above >32 mL/min NormalBNP: (MIKE: 03/29/2020 20:50) ( [facility] 03/29/2020 21:54) Final results Test Result Flag Units (Reference) BNP >92237 H PG/ML (0 - 450)PT/INR: (MIKE: 03/29/2020 20:50) ( [facility] 03/29/2020 21:09) Final results Test Result Flag Units (Reference) PROTIME 13.8 SECONDS (11.0 - 15.5) INR 1.01 (0.93 - 1.23) \\BLDo\\INR INTERPRETATION\\BLDx\\ Therapeutic range for Coumadin andrelated oral anticoagulants. -International Normalized Ratio (INR): 2.0 - 3.0 for VenousThrombosis, Pulmonary Embolus, Tissue heart valves, Acute CT, Atrial Fibrillation, Valvular heartdisease and recurrent Systemic Embolism. -International Normalized Ratio (INR): 2.5 - 3.5for Mechanical Prosthetic valve.Chest Portable 1 View: (MIKE: 03/29/2020 19:57) ( [facility] 03/29/2020 22:09) Final resultsCHEST PORTABLEReason(s): CongestionTRANSPORTATION: P IV? O2? Oxygen?(Yes) Room: E Exam CHEST PORTABLE [facility] [address] [place] [address] ---------NAME--------- NUMBER SEX AGE ADMIT DISC. XRAY# F/C TYPE ABIMAEL Fair [id number] M 79 03/29/20 [id number] MB4 E/R DATE OF : 1940 M/R# [id number] PH#: [phone] TR- LOCATION: EMERGENCY DEPT TRANSCRIBED: 03/29/20 22:08 IF CHEST PORTABLE [id number] COMPLETED:03/29/20 22:09 eli 947 Reason(s): Congestion Shortness of Breath PHYSICIAN: AG R A D I O L O G Y R E P O R T PATIENT HISTORY: CONGESTION. Patient male. Patient shielded. Verification of 2 patient identifiers performed. [facility] CR - Chest X-ray (CXR) 6 Clinical Report - Physicians/Mid Levels [facility] Emergency Department [address] [place] [address] Phone #: ext- [phone] 03/29/2020 19:35 [id number] Sex: M : 1940 Age: 79y History: [...] 22:08 03/29/20. [place] [address] will give lasix and transfer patient to [facility]. he also has elevated troponin. will give aspirin and kayexalate 22:18 03/29/20. i discussed the results with the patient and advised admission. however there are no beds in the hospital. will call [facility] to transfer the patient 22:40 03/29/20. patient [...] not do peritoneal dialysis here. spoke with [facility], they do not 7 Clinical Report - Physicians/Mid Levels [facility] Emergency Department [address] [place] [address] Phone #: ext- [phone] 03/29/2020 19:35 Patient: CASSIDY VARGHESE Sex: M : 1940 Age: 79y have telemetry beds at this time. called [facility] to transfer patient. patient agreed to be transferred to [place]. Discussed the case with DR Espinosa ER [...] case with health care provider (ronny at [facility] 23:35). Disposition: Benefits, risks and alternatives to transfer explained. Transferred to [facility]. Summary of care (CCDA) provided to transport [...] rce(s) Supporting Document(s) ID Date Data Source [id number] 03/30/2020 06:19:56 AM EST [facility] Name Value Range Interpretation Code Description Data Kevin rce(s) Supporting Document(s) MUSE EKG PDF encoded [facility] UJYTBv6zZsCTRtWwz5AwLaTvNVQtUV2tmik7T4A1xQUyT2HyaMRdq2sgA1UxW2JaRYVfUEXSGR6YoZPl jb2 [file] b/l1n8pAb3bXHI97A4684RyCimUqh/3Sf+3102Qt/bcoe2YMb/l114we6l8760jB4v/2sk9HoE/a664b gz/9up5hoh/4fd6140037qelck/8zh94sB219JJ9sehMMB05uE0/LaTXL/+0vt+/+xcR5VXu/uqje0h5 q7/850vev9J9c++Dtt7tm1jF+exyVTu2jd6iOm/07/ a0rqV28766u2Uxgz5Pjklerdp1kjG2EeALILuS6/cdam/IVyNjdP++06TiQ45JhcRsJ0ms8lp5Eh+75K m6iz67oabZ5w98Te0UxumdqqD4d6Ex5b4pcdiRVc6+AH+AP8Ev+PdiLWvU0i9f0k016Jsll/6/XfLVuf I3Ks6OF4ZXeNBE6NfcB/gd/A7+AH+GZ4IIroX0nHgC 7+O66caNX0OP0lc+qgiX7jfKm3d522AYji2J4ntP0jaFnX/gD/An+Zjncd9Wm/IZx/W8Zwau6UzDV908 g1/xq9yKCdm7Xd/zHWm512L08uGlE44BoDQvF5NYZ10DFt/Dg6KDnY/vK/fZ932XCjmW+bdX9dzUInJu sPJz5Rc4Egms00gF+ub5zcm6nbImuFhrcvp1JB6S1z /IVzeN+fjW7Zyvz/AXnl/gb/X85br5DG+iasyF84N56jr/Ur2QYcqzw/fd+X6k31ooPT0o3oHfeS/skq +0lkK+6pKvdFAs+Ur/aMlXWoclXylih+LyupNDt0DZM54U+mF78UDdTnmRK/Ebk0n03+WX0Fw9Q/z55O 0u+eqmwXfwHfwF/gJ/g79R/6Q1813ztREu1K6iL/Cr chRt4n2ipj/CL4nuSa3OjnXi9Ct18t3yGom8+Jg7crhm4HR4yn030xVzfEu9B/ADQ06G93eyGvVjcS/g m39X6D2kk/RX+bxX/FfUC2K1g7ue3ZJ9s7HX2tlqosBZA3263dNj7p+T3t2MotG4KpWO+NM8Th74678I h1FG8Mtdt0NehIo7QeBC2+Bv8Eu/MSRfiS/5KtaEIf lKZUl/bAbXk5K8O4+dlj7624HiQA2Pw7mwxEcTluE2GfaFWsEaMs+TCQYNa3VZpAAAU/YLNw3+Dr6e31 bpA/5ru7hAH5pBzShntodZH3+smgE53u+ZulJP8tw+8gqElDJUEG2yM349qqbZ2Mb7Ot9c+Ur9L/kq+S U/w8l0yQLJ1ug0tFMonje/gY/vaxjPhvFsGM+SrzRO JF/iREdKp1Pc4o0UEyEFOXGoLQ/UQ6kUfy8hUjIW9Z4BZczYVU6eE7ckV46IFgen9+DN9Mb2N2hHK1d3 YeYN6gTFc6/t44WnLY95vZC1Yld9OP/ST46F+bvwfRe+r/PG0xykplbK6CM9StwwfQ7gXp2eKh9Zg/Z2 17u/6rdJ7KYrxmFnzWkm0ggjYfd+rPFJVFB28QAz7N dz8Cdf+el6/rf/3Zn/b/+7Nad+1rIv6FcSuiFsI5vmI/nqr3+30r/9ter/k6/cVP+irBJI40LIABQ281 EU+Ld/s0E81Uix+HPxd288aLZ2oxjODRFjceDMMF2cqv/9/k7+s28mCVERHh55Q+/+vm/Luis Antonio++r3QaYf +0hwv4uX+0Zw/an2DDds39qk+Qr/rK9O+7hCwaln+5 Zw/Dv/h6Fa3Vli1N/z54EGUIqNnh56B7PvPsPXRbGM/SOcw90Yig+Wmzi997HlS+KTOHsV/Z8eSxeopf DrbYOKvlG4d/Qmf05p27Gn8lH7WThSCdK8+z7xzzcsIetmGzR+UdvU2hQdu/gb/Ar/3C/Gq/ML/aL8yv 8zeC69Z5teX2Dx7OAEQ+xNq4QskpaDHx4G/wJ/gTfA VhmWgP57uWPn2Jtuud+i5t4/mD58/46nTGc0/tdb4we+33Z6/9/uy135+99Bthu/xqMxhc2zfau2z23V 67i8x1Qi6wm1/am52kQ430aacLwy4zR8DEu2NA05Co+A38Ov+do85/3wnwvelXP03K+cprkYK7J/xob6 Ydzzuej/beNPgb/I18DvI/xQ/56qXBb+L67FB0iKwD Za1wUzxcD3eYFKi78Czzc42SKrTHvRfsiC+fl0V7sl6HfZbX6b53391oK/tf57xU51l+ApirCt1arFqV 33jJqyPcrowgZ9G04u4FJ/4IPM09GLhnUYlzrFTjgTFj6OacRz8f9z5P/8DH/PUGfq/8vVf+PsAf4E/w J/uNvtBi3Ue0M/wFPtrraK+dpN61KsJ2zh3n6O4l0T jiXJekDwwT7haG1qG1ekgseVui+AY+0jtT6oDXq4K0gw7H6BK+Yddnisxfph1cpF/dwG/gY32G/mpCfz V36Z/Fjt46R0YTbX/qzSBnY9qwDxYst8S5+ZWdzC7xcZp52LrQ+TxrXrzHE97Jj/640Fne6uLm4yBCq6 X9JHKPL6LL0gycfD69Tiv1c/VK/Lhf9fxP1ztjrIW6 hdIU3aUZtmDmki/kDfvq+9pX89e+5g9jajuL66Vk/eOKszK5KgYuV2yV0wekx/N9+wx8f/sR+0q/Yd8C r0391lquN/vq/Ne+Ol+wm56ZeGP5hIwl67xTQ8k0h43M/LVW+mdrA8+XvGF5/0r8+geClUDpPeBhzU17 B3+9/6YRhke7Pf+Df8A/uLl1gzQxB/BaP8oh5LYvAY wt3n5quy1p4orJkbts7pXmd/Z2tLeX/Ab82ApDsGGUsBu/wT/go72j/s46Eb0ysWgf/2jgdzzfkc+o/C EsIFgFG3HR3674ItxZ/vi+kq/rQ12GrrB5gT/30NpnCfg5YxMz2jesNX403w45itc+ZX5OcfYuFdz8Ta df3bf6aUKo+HaLuxKkScpZQby040iaCcd+194vn/+1 9/v0zG//b5E4f1anL+vzO+/rvj9T22F//7Ge+e33PZ/57fc96/nb7+rBJMdA1mv9CDLxts74kxN3wxu2 +653+9u/p74iuzfRhFtrJeMWJi/je8Ton3fYCw77E+VwiuEl4VyA+f++g74kbs9CI+thl/n384dCdJ6h Sty9IoCt3w7ZWv4WEmz+CflK+rtjXWzxjNqvP40bun oK+qdogj2cVqh2BNYLwuoW5eNqAEpXpcllr8fW/9rwV9LiNrcmE6h+vxri6OW6B/vDl8jh71TM/5jOBz Aw66n5Rh0h0vc6pXf8K1JWvVcguZLFjklNoGokDSlBM+3V+WCmN+q5Ue4B/vRh9kZXbDV1dh/M30XShW d7PjBBwngkb7WzmyExfOfvqNhivWtjtr13NuP3+l/y VaYP+Kf4kq+Up+SrTLd6/kG8AesonFnDOpZI9HjXO/AQnx40H1/Bx3g+aO9Bew/ae9Deg/ujps2Lnust 6Ja49K5g/+r7+lfj2aW/OuIPq/QE/9de//D6m41pOl7I26YNl+tDGvwN/gb/gH+KH/KVxxroIV/p3pSH zDKbEftESjm0u+71jdH7Iy6OunM/tVdpq/r5U66eoE 9+uAqbijJ6getf/dM2nj/ea2ri9fVAmW6fqUmK/GaVrvHskq+AN1880812WDb9XKlyP94YDoc6ib/eS7 /pdnLH35NQ4N0tcQpYA12p6Bx1K/zBklg9R7q+yqG/cuivHPorh/7Kob/dTcQt3V/vOEwC19H60OlOh0 wcCjl2dzMr6kSzB+pf+wswcY7MhmcwV5BgdrYMiNel vCOmvIxiSRqcs1Ukbi/VILm44w80gF/dy60U8S7J/NK3u/HZqlo8l2a72Aqat/l7Ua8Mskp0W/wJ/gQf 8ZP938pw2rvwsprUk9L1R001V16YEiYJck19d78tZ/elV84YueJbnGF98jTvj9/0itpBu5H/nQ74yPF/ 6B44qBy5aut2h5gxqrt0Er/j+bpv5nk+uAsL634V+C h1OU2463n0DmtV339aVq02GI9o591KhV3bso/HW43v42QkFZ36E87Du+Or9HW+Sl/nq/A4uwqHtiwrVL d/g30Pw388c4xTYm3+Bx/fbPJ0c2aepyB0GN90eeTIzMC0wnPiB34rOZ/2Bn+acmbl82k3sf1Qfu/yg/ QrGV0MhKYJmDrN0hepjRoRul5Dr7N9+IX3TrxsIqhe g/NuHD42V/wNPtarU+vz+kq/sb7St6+l5etnV8L+6cp5gvT05HFg0f1iuB/6qcAKizN4Pp6J2/XVeF7S X22ly/5ofXV/M6T6bN53AzvTl/AV8tXI/CV108SC+qi3rBYosfzaA+QrnSOvkK++rmd++85Y48iD++1b cPi47Dw4oXstg6+HPVwtb2c31lS95z9BibjfgU2+6X 676Xl/5+FY04o9VVR/Dy8y5qpt0oD/e+3uIT336Etsf8lK1xezCyTIaS70afutl5lmxGZ03XW/xaX77a vYdOr6v6D2la6xNKqzkw+Z/oEEeqqD2gbyQ/UsK+15x6h51m171tYbt6vchc4uToM9cqIr/uTC/avVyx 4fuV9x4pLOUOT6CRxV/C6Us5ra52WS/dWSfKV+kHxl mbZKT/An+AZ+tIGr1YaKbxLAWnFWgd5YSweP+fxGPvX/KGTrKUinw8fAk7GibV/gd/JT7vq1GhG1el2P 5AD4fY17Y7+dDZ2jowT/wN/gb/AP+XStsVGUqp1R1xfePx2yvsFj0msje5p+dkm+qkINi0In3Gaba+Tv qGedLyzJV/kuvq/h+0q+njbiV22otP1N6HxX2iPRMX a431JitAjsv5h+aEm+yrSBj/HsGM/u4K/qB+vxQm1PP98b0/k5fhH6X7tc+qtMN/Q4J8s0R/byeBCr4i NL+cmptuZnu5sw4Z21N4ku42tNUc1tt5gzZ68Dj/Wwk12eJ/et96g58Qgdta7g9he/vj00hnX5wej7L4 k92N36ch/M532Lu7gsp5dj0ktm3/nC2nW+sHaddy+c F05j65Kq8/lz3lHsjk7pX35J+vZ16j7/Nr8SV495Ff2I1JHXLas7i6+dCb6BX/tu48O00lfGGxVD7W6f 3V9z5T8n5V+uU/Yp+cj0aS284Ivv91vu45dk60dpldpOoZ0s0M/ub4I/sP7bpqih0x/tj/bn4C/wyz5l szc4uYT8LE+2o8D8Zj63rOWCTKzhi25M5R2r/AE+2t vN9akTS/DR3QVXj0TmdK9poOIEm5dB/8Sy97A3n85Z1n27VReh8/7P2vJxt4/r6V06H6wI/mj32h/tPs E38Gu/sGzeD5R69Xb+7x4Hb2V+G/rZqato5dj0PHdKdfRHkcqYB+3Rwe/gaz/XqV4crO+5o8DDxr/8M2 e9D3uln6EG3U/nu3cQ2NK1+jxpS434fi+8ZT+Yz9R9 /g3/DHtiPE+M51n+WeoRT1Xb6X/BVYN32Z2js9Yk9X/2xPedtR/nA622hn0qw6cv8go7vz1ut4bm0uXo Kr8I6ipfe7+VjftX2+x1r5xTgkbb5SB8xq5FP/UObiF7IyYv40HvlK6hs+A3A18He8W8Su9siS8Om7Cw kq+1Mdk99uj699c8nk1n0+J23FHgN1b/gj/BN+RjyM jUZ6hBlps85fipe/EnuW2of+X6jbDv3ea3pmb+cqXxfVftj/aq+6R64j54vsKrvU6eA4up+KhWBB6t/7 5XzwrWg9z/go1PuXRq+Tj/sc60LkqU+/ar6zERfx3x8v76a/32E/LbjvvtOo/ecb99a+7H/zA76CgLd4 stcb/dNcfjfrvOXLbutx/lH/fbQzbbut+d2ccpsfgi zlx5iEsw56+ev/3+Cv+kO+12s6r3mfr4XmK98E5e83tsH+uP1ef83wv207zsn3urjq6+xI/77elg7/d9 u/LP++2udPU/5daz8I7P/0uff9qo/G/Mcclellan/4KNuSrnfKV+EYW9Mqrhrm1qa/St2/cv9oH4/zMnlM8uO56 0l/NaUaIN2733w+cr/NP99kg4MJQ+e/2RetnV5ug2Y oPPV/pS22z4ZnLPycMSc6upduF/fZMH/KH3ew628O+8Yq4FklEucs/gF/0k0Wuu6CdJR/AN+TjyMfBX+ Cv6p+2kc+u/ml1n+OtvVIH6TtvyaarGkdF21y/e3rtfw/sIh5keuf29rUyBgq7L+7gaA4p16H22QlQtI o1IX19n87xuUiz1QstQ9rxomL+eHA+eCBfHchXB/LV gXx1cP/v7A0Sqw8yz/lPX6V0vzZXZsOSf/Xv2V1Xn4G30H0s1G/OOODX/+jgfvvB/faD++0H+qsD/dWB /lqSd0Yu/X/OeX3xcZnFT+N5Yv6m/irT4C/u3b8FlMb037n/IH/BAdz1fmZ9zvE/TleejfHBN1446Kv/ gzgt4eP0gu0MAjwTC/9asNU8dcRk3XHY3E5sI3J/+V jtj47V/ovKU6Ib3eazyLqmAIugBI76o+Nlv3+8g9/BH+AP8Gu/cGQ/qHrifvtxw/OO+aubAyj4d/PBg/ WQ69cwX/BL/8bF0avuIsN/yj/SZY70Za9AMpI3SORb+BN8A7/2+4hSlt0bT4+Wl4Fh6Qk+96za/55V+9 +i0y3Q0kF/4pc0Jpyu9b7t42x7cN+Gs/V03xAl3/n1 PC7lsfZc+8Gz6/1y0Zs86Uxx05ekiUwvRhC/50B/bJ0h9q8h8qKeT/5zzungD/QW2gX2rw545U+dg/Ye R7mO/Ms+5Zw6/y9x0CzW6mLk8Nd2S++e7wP/zBbXm2Uhi7q3H9Dt//5SSksMv8jf4upr1cicn+I2XF9x 48dQKZPY53hP+97yFrXeDN6521JqQpxWC9J6ttm8eO wriiATwUh6FSLN7U9kalCDdA7zvGy2fuSqp7ThbKM/Em+U/hFwT/u48mexzWq6IkfQ6Zn+l1jACgMDVW STeL4JFNlSw8E2vO6UzeH7cTpgIOGzYK69YdbRjBEj522dBBr6D65VKj/QL+iRf7PxUGK+sU728DcoQ+ Mp6najrKeGr4TkLAhGxSSw3B6XkAVS8BDMaSyqVy7q oVWtQ6BBw+M71RYvn88cRvht+xQVlER4LTPGcKq+II3E4BNXAzWZ1H9d/zBnhCc4d9/uzWe/4eW5o0sP djnUlq3EtEzh6m73Z9+y8aq50QZ0m/jt9ke+R3qzz5Mnc/tfzNvvbv5/hN3d/j1fzyt1M/H28L/YtLHp /5J4VvB/RF2j/xF2z/D/iLhIfx+Lm/WyXrrOKp8FpQ f+MrtF1AoqCz/tws6W/pH1pZsn5rgY7H9ljU/jUHpl0mk+40Am8T/Crk+7PyKUKrcGcas+F6CUhg4ITu xb5lb967E71Y0ubN0iLcJlfAyFpFhbx3K4Z3lvrYcftDCd0mXg3v2PoJ+radiology orderly+WySUYDu4qgnJ/hREqqVf [file] 94I3Y/fycfSyH239SWHsvOYlq1SzXl+OKI/FPG/cpZhL2WBvRM/FBpPyWGxgKI/XTpH3SGPLCaFe/human resources services specialist [file] Nvm8VhRXBzRCQXSg6+BsI6MQV5dIFxGyb5YSU4TefqKQRUKl== ID Date Data Source [id number] 03/30/2020 06:19:56 AM EST [facility] Name Value Range Interpretation Code Description Data Kevin rce(s) Supporting Document(s) MUSE EKG PDF encoded [facility] LWAUOj9jEwNAQpYae5DgJxOhXKLvFZ9oxgo0P0I4oKFwU3OmlBIca2wyU4BuT9BpCOKbUABWWY6FzJKx jb2 [file] oQyEMhDKQCgDoQyEMhDKQCgDoQyEMhDKQCgDpQyUMl CEPIhWeTyAMdXJBEkSgRnXNoZPAQbNwOt6n1VzIooZU2O6czDlVMmpJkfWaaNf7W6Chcb8xxi3oZbU73 qbcxBj7VsdsTHYoEgMCSai8CWoKE2fF8aKZOiHFtZ8CZ6DRsQ35jioBDlUe37C/d1GtCC135HSTK19EN hPBMc66dK8Kcyd9CNv0Fic2r27IZRhNz3OQz+zHkt3 gKkm60gi9s5VAFQIKYLHWSL7xn5jMcvZBDivB2zAOkyRRxVsjJiYeQWOtVJRPy5qTe4JN+KdteqxVMdx Hc8jtklWsPVdRjpFHCZUbTUqeCuPyqNaPRUSL+KH5iP8ooxhWm3tSRarqGugQfj2Is/6ndemDDZlsCmD JYyqxiSuSyTe9OqFnw4fy2Agg+S0ygfidpsZCYR2nm ySze1IzL42NXuym9S+oufV4hho242Y7yHqzvGKgkOdPsUmLlo1uQoee7ebl1zi325ZV3cF41wnuMDf4S SeuKoDGZSe+Wf5FL6Xs1UAkZwBqVF1brJ5TDfUbHc+WGM5t3Qqja3HSMpmF0nU1Ef3jUtObDQ6jXcECz Salomón/Nejb20YSXm16IHi7HelCisCmHKxGqDCTXRSKLR oNHaVXwAh9Rhd5ntd9yvFjiYJSEIlAIQVjyHKQXLrMCFHzpDPHBRxSNZ1MoBBDnNjHxTDuVAMKeMzOvD LnXRg0fTDb1Gu4OSP4wrcnTvXT4oFdcawLsBX1lHsnjsbGJoTdT8fgiU99wVIfCw6rEjs6YTG0V740zB pnXpOLd+cnM742SiY/ocyn9UAmSo7cRt84TQPmlhOS 6BBTS0Dq3T77+KiaqX6v50WYotPmDyJ8Xmb5HgwvukNvKPvgsiQw3Yrh+z07ZVPx7oWwc/T/cgny1sH2 H6aFcx4ITPzqowTLCu0oNM2fZLXi/oifr+Y58fsJfL4/uuJ+i8+6c2UZpzERmhAC9/uYwxvTzB6Btwz1 k3eED2pd+FyTrSd0nOG9o4aPyBaUY1vgyW3LH1pjfh rLmDhLpVlRx3fvwbjR4B4Nw1RsRkWQ1S66pcoAym2nT5GHQLCqzdbo7WuEjAeKaqPxnFfnayEcCbaLYB MCkDlwhLVpWHaGaSleueJzBWxFzAgosldQsbw9hwEpc7JnHEfQNGObu6AfS3RIEpMdWitCUHaEhdGU36 4qyRKjMkSjf7JYQnhAPGmHkb9UJ0OtX6e7E1c9V8r2 D5LWz+Lmz+Lmz+IyL1OaKc+JtwOMiR5QhhyoN6xSLZqNasWqy+Ril8K3Hf+QaynJ6zdZqGC09ZtYKp1Z PFMa37tzMWY5rTgojGwSheUYf36PJhgWK7PrF9fz8V51qyGbA8kS8+N0Tb0xj5uygfSksMokU5JJFzrd MbiDnK7YHv1MExOvy2PL/kRwkkD2hwI+wj6Xyq0Ry+ Yak09w0ydj8mkvFqbbJBxjQXtry0K3H6HE8GZcYPTOut41Vp20cCrY/597/+13/+iVgWP3+j/c///ed/ /B/553/+85//98///s+/gvhTK/2f//5XxLhE+7/+FZZs2I75e5S6V3o90SQN/oKdwk7aE0B38ByiJhYS lhNt7SumfJ6WOULmbAq/odT+4wqcHsm73l/DRvuHS+ T0oE01G0ygCoMDMrHUjJDtfUsj7c/z0xHfc/5UxDcuxXh/WmHH539/fHL+qYdP/j/c6Q0TqnoubEmdDc rj15w5FlU4Ft4PJr/XdrTj/Zpm+5gtkRA2eiPl/c7E4/2+HbQ0ppX/Dk1fQz0iT/WGoHhoINszKpU2zx Ab+AZ+gB/gF/xncZ2UqvCe6pAkzDqLvxZ+N94/szLx v/F+7Ql8Al/AF/OMl84kcgf3fspWhW/gG/yWmbBs5ZunRjPl4AjjBmB9gduB19ggjxtOv5m5auhaf7Kf kyqcCm8pM9Z9f3eWJ/ANfAM/wA/wC/a07ocTNdvwc/X69lEph+qN166xacfCk032P/09OtYrx/f70+je d+6e68i3aiGn15IvDzrIaQ3laHe+e33z2/viTi0Tno iQeFXseIKnk2g3j/Q5qkktUeg538LwGBO+/9S3v/bM9g8/fktMk6tu/kKple4ApjNBrTyVgGBh2Egtz8 DPueVETXMt3Hc+FCEAjjx95pGn+/X8+rsbRC7yrC3cJvtMv+Ab+AF+gF/gt/Z6PrgNCMtM5tjD7uIz+M Kew0zy1LknnlH11MmyhWplWUcKN6OC2Yw5gqaTg5Rj oLVY0CiZK+IQenvQCdOaWHAEdc8OoGjP02zRjqrfNZSrGp9CXyiLaPR8B+n1v63XC/Y7l4Koj9jFfDAB XeEGL9Rq8w2T81hBcm8Gz4f4z9wwKLJueXcXj/j7GG/rSZgJPdUWFRqxmtg8t+3AHc+zcZ2N6//Geyog 9UomYdVD5kimD9EIg/Ge+E2JIJC/32M2Udar74iOiR fmBgf4Nio1GnitoJKNaZgUKrd69p87q4x51gr+3vo5f/eFIcjuV8zum9mYK2R5/k4r/4Y8Jr2d+WuM91 qrWdoXiM2yt4OIez+UlvOM+ayJa8+RZfZ6Yc8nqU5wcm7/W10fSdzkx1AThBJ76B29G7/AD/AD/AK/ja 3w1DSypNB2Ymu+zegmP2t7PbSE0COywLwo5+tVxHN8 7Q18Az/OO4U2oscbnEW3XctAqlBKnL0PZvz0eFKryTfuXKswrz43myRIyae0C9cYY5yV2PN7AG/Ab+M+ JouGVmsO69/plKx06pIPLgVd75cr2YqEKS/qhxEidD6q99PysiQUhOT/iQ72xLXi/v723+1h8KSuwWP3 Abvw98G/FdAkCFqJs5r7zk/bpoD93L4aoY/gG/gB3v ZRhGOU/YSUWX29ohLdpQu7G7FznUsx3BOggVl9o2Wr6op36eU/ane26V2Yd3ndbv+pX+VcUm8c39EAuM 43Jxw96Nq2+U0B0hdX83/Ks3QuVa8k34tBv00fgCGB+jm30JhHU5IXqTEo1104D/Wr1wa+gW/gB/gBfo HfD5+uG1KvxXn3dqrAIAKwfUL+gU/gC/gCbqOfwfA8 /qofiu1B57VZTb/xkW86ux5kjaj3RJbgCjA1j4x/M/KmxJmw1ckRiTdlN9Bzur2GEDJ0iK/gE/j65v/M /oqDqU20dEsz/n4jhKK+y4gomP2sZetMUoa0ukOJFwlt1S2Iuac2I4Dtjv8K7TcnSzN1ssufwWrm6mHG Q1mMkVDv02hIR7ODd0/60CmToYGIlGH1k/I5c/9Kq/ 0mJ1H8dkGrVN67xbkwzVO32bh0p3pTfzy94a7ui7+F1pmoclztRlmu0RYL+lW1J/AJvH9/5+mt7rhQcJ W81A3i31zt6Eu3MC5Oz07nR+sjnn0yOdgAX4EUnoYJm2uXzzl0htr9vdO+lfJM/eq1gW/gGzi+34Xvd+ H9TD2xI9F9jYBxdKjpVs7FC/AJfAFfPa+sf4+m9f7G KQ0n98c0rqKj/vcAIgd9qbd7+zutf3+u6k1lfT3slK7/vzP3r/Shdu5f7+29Chsw0v1W0Pp8n4Lr32x5 OsbreL+pX+Xam/jSdwlvw4kc3txsn1O/5aW078sqfvYXXmk+3m/qV/k8qV/lc6Z+VTi+7533vvsiW48C m5L2keBOohmmfbOfiHzeKIdr3po+5lz+VueOh544T9 6/d+BpD+ydbs3Re7SmC1TFOMSO7hI2VNz920ObyN71C3t8M/evJPH8/U0cv7+n9Y2Z+lXK+eD7PXi/0K /wxv05nadt06h5fU5I51BNP33D/eq1gd+e/+d+++tLlHUo2FGlgHH+X+7tpup9b4e3DdkVZr1HdyHVhQ ZL74CW3+/buO6cpY8Y1+/t7zeCE+whhGyCtc1JTxpD V+AT++gC/gBty+dSMCEroNfAPfwA/wA/pJk25cw/C143c/ciX0hoBckZ3o5Omkzg+gS29pQ1xtCuv6 K0u8/Xff6bn4IpovX6PclTvb7e2aHzfHCp600Rb86uD1TxqhmyliSt/aietA+/M7LG3/vqc9dlcK+AJu 3z7/Tm5c4f91zeaj1/xdM29bs/JNRJBB+WDuxrD4Qv Pe1Y7Z9rogYdssFlpYT/VNtWNncNtaN01+eCbs3UoUg+0R4eseRcriJMxnnkMnxz1HlV9at/dK/2C+r9 X+q7UbvwY/mO99ac+HpZ+zCvVD4ueylK0n7cofc7+X9A++LdOMxo807keb+I4EE0sfXRuSy85Qp29/DO vMLf8bdPwK7kvvHkeUE5F4IZegZPlVNa3wtPguM5l3 A3fgG/gGjvEaxmtYrwzrVepXKc/Ur/JsuT7H93fl017Sg6u7ba5UmDdvU6f13C9klmOM4zpB/3X3Uhv3 kAKqoobu59zj/q7DP/jamM/hH3ztC/k8cx2Y8eKxlIU/l/AP1ncU/sH61ja+157gFEBMvFoAZPnON5K/ 7fh+Z+Lx/PjzxNvu4Blo/25cH+kDzsr2pt/lu7bMfw Z/V+6x7se7hO+5r8Mj6XS+m0L60un/2TBmkZ5/Jlh839qVKOxeAdi7o0L6A9v43M81iZmWLw6c5ge095 /r7q0NkdQ7SWouDfxDM+O5Q0um29iuh5KrhTLjyA92Oz2NL+AH+HYr72TJ36PviQwkZc2PPmsVRgVk0X q3REtaJvmBz+Ab+AHe+xuW+1ev/c0fk95/Ram40xGK c6v5zlgfltJT7/kp9h11Q/2q2gt4/x6Z9O+RSevPVvtXeS/Me4Z57o37AzbUUEgv6Ki/OU7z801usTTk YpnJ20puQ9i5v4VIj8/cnUA3UVaVEj7bL7ho+c4XYW3J3N37btpXjLJ/PZsaru+dlRnuO4z98EV/GGuO lX8w2+drSq45s9K+wG/jsX/4kYMND7cOako6p5y+3z iT/54n9q/C5tVox8t22FC/Kp8/968kcfvsTZvt/7Gnn2m6XZo/2XL/Kt8X/IM2e7/dZu/i2Vq718ym98 rsZ092yRn/uX+A13ViL711sybjruAulbGpveVoo2YpoO27W6gsQ/qTjoBz4Al8+4/K9M3qJV3ZAbiXA+ XId3P28zcQqkkOhR84Eih9d/bMpSpnCcdDQ4Ns7Ci0 gsetZ1p95VHldNdh/evQIBMfTGK43U7zzuqXP8RRizJDLYcsd+kkI3zt2If6ZC6Ut/5su/Ih935gH9hu 5fq52/969vcy1rqP9iG/fvk6SDyF41ne94P76/758Z2N30Q7+Trbbf/pnwdH0l/88t7cb9lz2Xmk9u3j 0+kG4SfwmF1ZOn0MfwFarB90t6sO8JM7Fz8ES9DR6u Ad+Aa+gR/gB/pJdcg3x3+vs9y/trHk5moPsQkqsm1eWDs1Smoj3B/Kd5H7V/yTKa1o7c/le7/qZ9Gvs1 q29/zJ/rwzY9zvTabVk0x/stq/im+q9q+q/eGe+1ev/U4VYjv46tKzcQ2jk6ds8Bh3Gt/GH7IOnwQciS PfwDfwA/dUs6L2wHzhAn5KtZUStUNkaJnBEi6Cx7/Q 4R90+Add2r/n7R0o5o11hKfdf/5iLyrsB679Uoup179zk/2ran/rgMM/6Ni/uwJyUmaK79f+dY1ijHjr BXwBb/vXc/+m4e09K89y/7q2/eva36/n+sirisha+Gd9b0x7mBvt/8qxf+SRq0LrU0lzM+X/9bb4nK9jp33b rK8J8AkmzvgL+uz9Sc/z7bPa3/f4/8y6rrHVvGd709 rSG2pBTTRRxMyUgRw3J6LKp42/7OWVKIokLYE5Xz1sYEF9F8KI1K/sNe/fvXA/e61Crkal/+i47xRaMr 8k3NayAn11hnZq1jvjxz7EK/EYx1ajV+4hpFNhvM61L9/AN/PYNsLRo3x59pObLVrjS0cXkql8V3eZF+ LNALVk6Pi9gnqTr8Y5uxR0zgt1r+3Hk8N4piARmUJz wW/+8M9UZoLMkLRN6m5EV5v3cYH07w906r300w625p802q/6jj1Ak51+2a6FY9bOt/ae+MLe46/be/x1 [file] NSAwIFIKCj4+GzX7KAI1kYExJbp6TBExMebmLRZKPc== ID Date Data Source [id number] 03/30/2020 06:19:56 AM EST [facility] Name Value Range Interpretation Code Description Data Kevin rce(s) Supporting Document(s) MUSE EKG PDF encoded [facility] YVYZXg1nQqOWGjJcf5MoWlElXCNxRQ9ijxm2O6I2tECnF7YoqLLvo1joD7RxY4VhJXIfPWWWWJ0WqDSu jb2 [file] HK915yAHx2RKJi7l7/jj541423/5Hgb+CASINO SHIFT MANAGER+5Ts97Ag2CFtqn40OFl00pc317777tN149RrA7122YijK uyL3lYjv+LE78plOf5h6hsnj2WV3gd19vJU21rRjp1Y4Zz3WlSjeohiFKuxTrs76rQS2qrE2eg+AZjcj 7cjm4ehl4nyj0d7j0gggGCRFoQY+pyvnOqtwHbj67B HSdQ21fug3ce4zTirr+S33f/NNrMfT/Hf5X6/hw/5d+Y6SdykuroA4g5/Caleb/dMvg2X4xjm2fojkBdMe /+E1ug1tj6br/5bnOT+139F0/D9n4m0hz5/Kd9+hJPDv49+R5/zU/ZZQct5WzlyD97b0WUXt21m7xiI/ 5VPl3/rO/ctz/wwIyob/0jxoBIjwt2pp70/2Ye8Cdv 7bFhe8Du3BwF6y90kqLR/yj4O1688an+sbbj844/zX4L/13fnPxH/ru33q+Fuue/4+6s+hsz1w23W0jA dokGI5bJejoHM4B+PjAxumm7wGyxcuOM2b6qysUO/1gW3I76Q9i63wom+j/FU18l9MlToHY03lT2NdzM +Nw5Saz3ceA18Trnh9oKrID5R8dHySp/oqsG5Q822c 9uh5rC6FOnqDeM+UT5R/e/bnDaULfAeyjyGyLxogR+R/hcTU9ofHW4IBGjv3FY4cvFty6iTVA+Rfl7rL Efk/A4YGGikczgny4BIqwFwZA/TpA96oxEwt+gg3c1er2xZuWRKGr7L8HL5R3KU5VLwWZwHEFzTMLfra NkjkA/4b72oenxVJyRKOG2w/Dt7fSSWa56AafillJ5 sZWIxntIAUrZ7bzZ9thU326vTW1R+04t5X8gNgMpPBCTYGF2NL5h0+pl6QVaqwhCGjAMnbIHyR9v3CDD 1tdKodqCnPePrNVL//mojeO8C4/WD+EtXvMWauZxyd+xlf5+s5Ccbxg23eZK1LGv6iZ1mr/PR7/Vvz6/ H8bhBD2/oxSK1tYfl2uWeKH+ZX6ehbqyAA+3j2g872 30/0Vh824osN04485wxvfkXL42bEG/WVb/epb2RS+jPeb3/G+46dmkbJT7Qt+q3U3sX8MusN0y8neeS6 q7vZ3lu3GsFrMwZE0sqceODHzK61ch+z0Sr5/ZnArpHrQ55zjZ7gkf/f13tAOQ3I+p7M8/ThSTxPP5+8 8/T/STt/jn/G1PFpS3vsW4GyabbhirLR9lVU4n2/H7 +0b8JSI83Hc+dZN/2N+3McKD/3hqe0I2/1SFXW9NwjB+fZz/pDKhlcn5pKgjixNS1p5btaES6uNhhLdA buI22qk2WWH9Mm+r8FTP6yE40s4o7rj2nw6D3ZqgSxVM3V1cTxXw1AHsS+VN2iu2RcieXp6zE64e1W8h WdpGH4958iK/B8B+orjSa/PnKkgIM58njdwCnb70Jm NUjL9oq9OcmI6ndkECw4FVekMSGOOXL/eM3BBG6ld8yUfjWkhKuG2Iwxqdl49tQCAVB5/M6TrtUdr/UN V+86c35wvrLPvULde6+VCLUvxCYiA8K0W8PKiSm3XzORT70l6OeRczozEOsaJlJcn460yr+vJPtUXef8 8au9XH1P12OEQAlmfkJR7q4/9R2ZCP+t87geBqrsDp uO/G4MJey0607lQBxbxqKLVg51dA+Yjk/tkArcQOVZF17E2L/oxWewW3PbCB8+5NY5ofDU70//9exCMW Oqv0p7hNP+zyVOTOm/BPCMNU/+d8aaJ/07Y82T/b2X/ZK/D321nx256TkPs3jYSJOkUZDl2UhxqHJ1zE vo9yPbz/Luz2/HdcepJ+d7L/0D8l+04qsV89gB5jF6 JExTrBaDz6Cr285qxnml/0dr/Y6fv1/8tAbbekn4nldmkY/+OVrrPud4/XR50j659jgmGd28cqcCyo1l lE+TK1PqwS+Gk2Nk47xeyrH8Ktgc1D5pNZ30W43GhvT8ofw+tFb+y+FnvFK/jljQS9b4Si/BxpN46hRX 25258n4eNJ84aynW4Di/4/PS4R0YDC8/alWfd1b9Qd wdjV2P0tqcedL5gPjcOT0a0wcK12psZ9042sHMge1yfam+crRbc6lp7aq0ltkqI21vM8+layg16hVGvr fZ1xW63iZyzcgSxlw75JpSaz/0HMPLiYL2U9SKjceUQgaWcyRG+do/x9tyy6RDxZP/Ndlwr281wiHwMF Kihjl7xBVzIsngf3khe+IF1D97UweEv9W7Q/L4pzO7 rXlvAEentF7wwgQS2fWeijd1M4+P4hZ7FZzLwxh8sNwR2wcXDui/37/+6vC00eTcq+fHNztapvaBW4v2 mexRJ01jCbeuveGcNM3xQ7MTcM+MV0ZkiR75w4O6irkhCpZuH/r1QL+W7nr+/fHfcX/6+1jxqQ5kmPHd 3aX+Di1lawPPkpv28KY/HujXA/16PHOBJ+/6d7xR/s gXqvYu8jstzgOIyIO9G7d/xpOju+7jgb9/3z6OeuJb22V20reMq8Tc/JkTOGnWt//19vPcrqt4PpgTLI 5l4CrCrn5Gwl1eYcxvfpogezcjo0ue1sv51eSRU6y/80ePt9443bnd/h3H7/14cqp/x+e9nL+dOP/C+Z c/97BxP/muT9tfa2yyQ4udqGV5hGm1i2F/JkIrxx83 j6beCWC/heDiaiQAyfhGL3185zyEQE+C98k7JbEJtFWdUqny4bvrzZE6nzbG1+qY4+qY4+qY4+rLcR6M futt20W0jJUnRecJYksL3lNv8rmjh8i6v2QinZDswbKLzxtIxsK45fm2JrjhkuGvz+vco85Qa59bkpJo 2PH36L/8wCU6uHuLl73j/O446HnK/kcjjZb3MMbWtd PWOBnRGZuchOiMZU4+1D5KFxCHH4LQo9GCNlO7uLTOvfypQdi+D6rJzI33TtW/cZnO+oIUFg92Y3aEHt 0s24fI5nYvLv/8OdT6ZzCXy30W8ZvfDde5940Q8eAd49nrdghxvV0fuOQ6boOwzGuK8uTcogLlYwHr8y 4EU210nl6Cn569771q/TN3u8b3f5dXE8+k50+8lsff [file] 1ph+MPTxU8Z9a1nVC0sWhXyvLcWuh7uJC/+8+hicy7/Kalina+bX7u+Zpo8pwoKLM9cmLczFNTus+4marue ge9vjvmOmf4swax6bMvV45qkt/ycEb7KldnjEeiRX9 9ugo9eJ8FZj623DwqSlGsz4X5s4r591iy8g8I+o90rys1+082jC2dcGnqMFc758n0e0j5FX79fMyNjxd aUkOcrj2N6j+G4dulmT8bXWJJ23x9cmpt5+8W9B5jajHe7k6b5/a0bpaE2Do852stDm+8QGxb/SfnH+c k3Dnu6oa61eLg3kwJqyW5TaoItf3BN/MQTnYOWgSb4 4ecjaDdLFpyRpr3nkoPmdW8YZaXMiADNQYAViK9lT9SKtvYMtoUyaT5ZWu0d3E7cqgy9E8cvKcTBKNj8 4TqrnjR9FAFEQuxNbhGBDG0irlrVIfGTm7G2/m/SZg7PdjMbzonHq4HKMSIPgxjvNxqKjcUhcZQfwh7r xSZyMTvGt0qymxlAb5h0leuh3SQu7ZStlJR2AbKZzG 3gmdo8RVTBT0vS+WEcqu1alH5i3ypuQQGo1Tp7K2uEeSa43mZ0tLkpgzbdvztEEztzf302LX9Zw2t055 +++7v6tZZ/y2Z/9yq7WMm4dZkIqrPev++c8yWD+WB+t7ZG0R7VU2SYacvhZ795aVNbEvvxpHkvIKM1/c NTjd+SOomJ8f+Y15zsGHBJvlKzvZA3lfSSHrdN0tS1 mUU4OM5EJ5S/FLlF/ucgHgtFktnaNAQWecXmxEQ3borjTDVtSFVHsTuR3rI3g1LmLaLN3X5Orzikeb4F FYHo8Otiaa/PN7XmuLm9Gdc+Griffin+CL2W987Bc1tK6vlYNZtrmaoxv8rgobvUmxK6w2URpyYmfsvBi895 CbIW3wwliIMujFRqIjbCTH7szW42Mlc7VhLDPI39zt /tbDflnPIJ+tZ5A/11N+Maximilian+vp director of creative strategy/preTL3x/MWO0iAC/Tc1+OPWNT/2hFuBU1hy4wQbrESlaEfulAgA+ww [file] 0Gn1Ke0wW8b2z5Z2j8FKgaVjkLiWT5fZajmAzkI3IRk4/P9un2mGNmQggICwqiREdeOlupWpeF/k+solar pv installer [file] Ji400ItWE8837OZuithFvd7i81C0C5355CYjuyxBkz /t9NVOX+094A3c3sWHHr/t9NVOX+086M5v6V9Z0mgGjfC58H4xO0qqm5Elpsd4Jm05QS6rt/N8zd/UnN TXkzg7NtvTO25e0g5v8d9n+ZreV/O+mvfVvK/mdCSxu2iekmhd2nxhrqy72gFdFx811GuGKp73ipICh3 1q5QSjn7m5lykyhebkf7+2+5l9n3u4qbyijkdud001 +iqtk3z1ukcfuzkdo361+kdcx0r4hqwwleycupivrEwWyGfU/o9/6sXQE3FXwyr6zloit/08vtVUupf5 8mSjNbetcumkna5hj3WUxq3d8zmp/PZd/i5yDarYp3vn2kyfpklM/gG6r829dw5RYddEECp1/tU8Rv7+ yv3IX6J98OH3vp/jki5fc0f0t/whyv2ERA3V2X440a utROK/6b8wXA5ZnLk5ISvnvPrww7X9p5q/3kPaZ3ztxX20ih463z/xmiT+G+/XBr6AL+FP9SU0yIborG O4Yp0TK+Cn8d+yXbkML1NYubBb8bwiDkv8XtrO821J48O2F7Y8Jx2K2A0Tt4Y1I+OdGO/EeBfGuzDehf VuoUkmdKojKSzrhdmRbcwh9bRaJcr2EsoN338U96F3 G2a8FP6X5M2S8xSfr6mJ4lJY0gSqf2eZ8sTA25W6iq6winwa5z86lIwckGV8HY/duJZH4toiBIggmpg9 G/bh0YMmuIC4DrxnT/aRshRy6UotxEyhBe6YIhcF27vz2Nzu3Iy+EAh7bnXoSeA3+w4CkXEbbw37C/+N z6c8hXe3cvO/zY+3Nadv0Yqm+9qJbCaafOW31X46jD dwrM+xgR/gp/E9+y136GdcSjZRyxXX+LXY4f7ViSK36BgkyGlyLL7TI/ANHN+jfRo/W7BVJXM6CZ/Sabine /GezDeg/ZofGtemOcqGRzd1Bu/tcX3z8w1oV89/M9055r41DD+dHHj+7vtC78LfNl93j3+4cmVy7ocl1 yS+J9gxbATLav02zjruVVud8rUOioa9FU6WQ/Af+NN 9tYXBx7cX+7AA78T+C984sgXV121eczfbjvm9EL6WGMA8pcCDBfaU07o48cA9z3CVYwcjYkP/o4O4Kai 47qPaL3/z1Gln6+mfpUJdlO/tqE1oM8ZD2SX3M27Wd/fOqOpX+9W8Y1j5KAmeMegMG2DX+AL+PrWvRt0 Ycgfvbd29i9xfMidHE2Zd+D9kVJo54c8+iNHFd5DCc gCV+AT++mLW798BdgWkizHL0SO/CE0WVq1N2A+NdGO/CeBfGuzDehfEujHfh+i0W345gAn/+Ht1Yyv e+2JjboLnrymwv8at/Vuk9RIthpxV+9VgdMRNGyzeMND9yi6ZdMtkl8P+8mte6+eFuMAkI4s1lY81uM0 zfwpIuO3TMTX/zyNxSkGoWEVEO58pva6C7i1W67m/x jhzj1a/Jr7K58Ypk/hvv1/7hdW+B3/yTM4E69V/XzdiGq1+9+/+IX4Q3L7+aV9+70UHux99gzKkG8WL9 k0Qu9c3k7ie4Ol0dK7+gA9O6w9vefa6Dz5p5m+1WSr1ao/PpcgIN8ss4i5MY9riq1qerNoSviU4gZ7m7 LgmqO44s//AcY+oAMCDb3rsoL82na+FFm42wnQihBI oBV0ECgZOjqF19Vb/cZ+D+73hfG/gBjvFe/shklBNg9iriSdiFI/DUn/M3U3/O9gK+gBtwA+7AHXgAD+ Ab+AZ+gJ/LsduwQxlfFqyCY9BX40Q5W+M9GO/Sabine/GezDeg/EejPdgvAfjPRjvwXhPj/jIX8KnnSOO7I pcgU/gE/n55nZNclqnEgsAJ8M/1uEYpNt59A39Zp/A jr0sEWHrZdtrBsqYH/SInBs8Pd/kB5O0rutwiGAYUyEc4JDtr627Kd3GH1sc3sovx9gj6I5klWVoMyuz U/z6H7PgVidrtaAnky7ZYuvYQ+BfX29bh3Zl26Uc7cliK/M3Z7e8MKmNzQggoM3h/M7U9ciC9A0yu3jx xHOqFM6PUxcQi6eWa5e1Nj5YN0TH7qHhyKlCe0T6H+ OdGG/qV6/d+Gr7d6Z+NK1SLzYVuMNmn3MraoLpL42Sl8lfb0ggudOBe+Ndiad+mqW8gl3e+tx63ByuEu xLHmYlij00C3zGG4Potv4+9bU/wcMXV2GklWRji/ARMvqQrfBGr769dPCnIw74+zveat/u7o03nix6tc fdCPRWv7zvF43s+Qs9wwP89tvG98PpBy0++rl4+0en 4/k6nq+9oT7m1qr1u4zbyp6u8X0yFX88KzcZl+ZFOPIB3G14R9x79M2g6PyScdMX0QNrnWnwRSgEq9pz /7hpXwyCD3OJ7ccdiBK/Z2zgG/jJlmpcVS195lqP6Mgqnp0QpkoI81x/em3gC/rBxpKZhUB13Byejlw0 vaq8T6hZGe5qxeyLP+vVwXqF/auJ/ae9CW3P43/M3L +fvjl59xR+Vb53V7/6LaK/0y6QujtbGLUNbg/iq1/N/LZe/Urz+J71Woz9i/JbvmiGc3U7b07+JSfb11 92bbob/lc23Y3++8Bbhg2Nnvlde1M/3dC/Pzvunky4+vCkpVxe8675Y/f89fTAiVy3Z5Tzlo6R01Vq12 7Pk6JBf1ml69Vkur/kvcf0l2xWzddiH2ilDpoPDPmj 1/93xaAW1bnd59o0kX14D/3KZ3cj/VmFEERc28Nuh4o9z7LP9c15vXM/7p2BNo4fKpA/155jt9Bnv2Nc x33Kqt2i0G2z0gk4Mo/sZDyDA7drdcR8Ts+9aZ6or69zeqb++tXXBp7+cZz3zv4E/+BK/2C1J/AJfAFf uT53FForNcuZY5mx+uRK/2C1D/DTePoHXxt4+xdW7V 1zD0Yp8Hk0Wu/XH6BXyvNlmOYT420WzIByrBp4pNcjj8v8/mSjO2rXZ+YLiG1OG/bJy82sS/gCjvEujH pfpHlsEPronvwDldjc7hWce/B8Dc/X8HzTP/jaPX/kV4osFd34Ajd4h7rS1JBkL/yDy9o+WuUfrDbwAB 7AN/AN/ADH++o5ye6ru+P9dby/sofX7t8jhgZd96xL aaubbZ4h6+/z0eMBhhb/aKV+vOhg26adv36iGW1i+gZ+gx092icB2edaRMjZC0/DqV+2EkBWwFB7Ra3s ATfgBtyBO/XDEaD84W69VYe9K2e0Ls1V4M4ZyzUD+MYR4K8Gk0P3K+PdGO/GeDfGuzHejfFujHdjvBvj Tf0qn/Cid6GgvvBaXF0pWpkx9A8E6n1pd8WhgkMhWn dI/2B+x9M/mPpJ+zca8v8gH86irjH/mLpB+jjF2f7dG+idrCSx28D2xbNl5Hi6Dx93aB85TOg9HewgaR IbDBczEr/nkV4b+AQ+fy312PcDel1sIrN6+RxzRvOf3m9X76P79b307T/Naw3wclX5cDG/1O7op95QLf 03DryffVBgol8BMvlYSuYv3Fk2MbylGFQu/6+JAw/g UKgM73YeOgMlt1ww+9wRE1LRRfCZsOXvaDzzRXhXL+E3Tik2kl5gGs/tANiE49RG9CLIoxT2oENDH+AC JXCl2JkRHdzXFu+jmE8n9F2m/IMG/6CQZ3sQmtcTP75TG9+2iDDf1Yk8Ioe1V8zcu81c0wSqdfKpB2+P LPWrfKdW+/tt2Hd7t15+Nc1T0GmroY00q1qHLafbd3 96RC6YnH/y/uu4tlM1bgMoeEgqbLzTbnofz5/8tV95cX6/6jQVb2ecvdNHoe/wccNmbqTa3/q8J7maM+ /Ntn7UvCzq4rzPI3XFrr3IFaed8of/mL/5G2/6E2+L7eqZi09r/jRyq72YN69Wt+zYQdqlxubLlm7lN6 m00mP1jfNl/arWwNy/puIc387BHeg/gVvc8m5fxZou 8/5weve539snTIl/WMpaQzmvL2mq/YV+Bg05eWycp0zeOzp60J4Z4c7S+1eG//pVh/2xya4IJdoMu Whz2bsc6D1z0W7U+lWH/yrB/Zdi/UgwoPotkPEPc4T3A3c2Y+1eG//pVh/3xeg0FYeyOwOyk1uht0 N3l0R8C+lWH/yrB/Zdi/DlbpVkzocVT7s+1923i+tX +U1Z01Vj/N5HkQ7cvKg7lz0gWhMu7s5C15xrMT++gC/iMocHp45lv+72OsM9mI/gG/hXdu9jW36I8u QGMdH9iEz3SK+1FbgCv+Z82xnji1WuW/cVjxMGzSE55QR6vH/gG/gBfhpP/+AoQkbeVR6beQCjbm3dEJ Vt/0h8us7UN6+Xtvdd+nov8sLVwf8Bwz3OyxEDtl3H 1HXwPL86cRQ/vk16YVbok7OB0WJkpMnuUYiP5/UBelLZVkLbjY70Nl/gAXzjuhvXPcB7/7okopho3euu Mlw7WwyS316W56T32bK+gBtwA+7AHXgAD+AYL/yDDv+gwz/o8A86/IO+8z9p9G9j2m9+ztaY29zrvF1Q 194496B/ShJf3/long term//qdOY9mMvtaLGnmO7eg5Av/+ ffwo1uBtQ9V5xhxh/Ta7085qLprHg/AmpIeq84lbw5vkh4M2144mEl/sK0U16y6/UlFo8a8C86Qp/rhv hofI3M18zvCpChz3l0+7vdB/D+/rr3/cD69pclzG+4T+ATeO/Huvd+eOjVS3z/cnfgDjyAB/ANfAM/wN bq6Gsgr5yLKiGDkVQS1IQ6II75oOqxXf5WKWrkYGIT HsAD+Aa+gR/grW/2xv7U5nHdwZK1js/M8333uviGu4L8Y+PdGO/GeDfGC/4KgS155PmDe5R546E+MZ/h F1TpP4rvS6tS8n9PqlLi/ft+9avck/CmK32E4728Zvl90gedebiIP/3RQ5YusKa3n00fFtrbK5/6VZ7b 9KtfpY/Th72Wcb7a/SptPb/6Vfra/CmNkPl75h4Fmd N69rQgHUn/Hntnpo6E8x8ez/CuLZH+Qc12+wcj/MR0AeJUl+PjADfpO9DyNjr9Fq2OekItuJ0y77+uTC V6u94rI/J8u+f/GywwxfoSyOtfcY1kf2f/kmp/34XI/asaV+2e6LkUmj8yoJ5ptD+/IW3vh/B6jGJ1U3 J6Pof0+xvS+nNI+4hBXo4niMWHUgvxYFo7QgEPM/AN fAM/aMkkCNaCO1g/DvgHo/mV4VxbVraEv7QG4GUnnBeuX+7CK6uAv48ghPpJrK8bvGj3NZYry2Y7l3rN 8DXydVkdCXhUD2XaxDrWX+QR4AJK7UM+gWO8E+NF/SOaxmGRZnoIEshQE4gB3215qfdDa+T7Hwkxnch9 8HwXnu/h88IvEk9xGaDM3Hc2Zx8Ey02eEXTFNbDZTk 3/0z/83zMc4Pq12+nC+vxkWJ+PDTPgDtyBB/FJmbW6ml+AziVU5s/8gwH/VPrU59l/ii2vBb1vpG1Q0M 8G/IMB/2DAPxje+ivdij8n6tUx4Z5gBFuCx+ZoV6A0wHPc88+MhkwnCpRyoeMEVmdBi3Qe1ET1WHwlQt yBO/XKSrLy1ze98fqZBeOia15h+bRxIWiUD6J0j7CE l3Xv3UL3QBunOqvIkvufRT9CX7QNU/qHGS9ptI8qqU1uWfvFgpo/JFeV722o/n29DjL0w7eYeJ/wtYHn edH8+4AQfb0jCw0y1l+Y+kP6B1P/Qu6g9tzE+sbZwA/wPi+7K84O3NBWW+TNNETb5Ci5Ih/A2x7co+3B PdIfmniPd4/RT7KP3iwWs/MV7NH+/S7ek90Wd5370X Hy2uN6N+/Ynla9aIurm1ovQjfK9iDOwsWtAr/AF/D3Q6d7OaySpThiNT7YA/AN/RLki4Or99PeK2XYTi RKnBMbmUxqJHiEg0wTK7yRS9jYZ8mMA9uIS3sOE5rXQ4cB11ZSq8U7N+PF+skY41sm3018sl3xmS/aOH +1cf5q4/zVxvmrjfNXG+szZl0rfepCB69xlVk/2jh/ tXH+bjC95D9zF9jm/b8b+5u48LhZvreS+a6tPu+9y53QxrpiyB1Ccse5C1a16B342IsknD/rffWrjO/b 6R+4fC30S8g4oh+sjgVxlinX1yveoFghX5a6PhJ//2iICzr8J+X9yt8JDDk0M9QoUX2xvv5rT+70D9bf X/9gyirjB/NaV7+Sm4ZzX/1Kc+26+iFXxxE4p+bfX3 vw6ks7/YMpt/QPXr/qTv/gyd/s/wiyzT4j4Y+qe+916z89U/o0jK9NL8rkpVH507Ko+/u7vb+/29t/tL 7hKyk2n6g7moJ61yjf6L/YyM+dwaOC6i3Xmn/gT6rli5kWfgf6eD8iK2tmpVnwOu6IIoeXAyPq0Mr8Fp d4o+2EBC3a5XliNFrB25NN1AXX9p11jh1MPMR2/rx3 20d7K/EZjMCexWenRT5ceJ55Uv/xGFgC45OX7GE6bl++SdOTryMhmMllrRbfKAqylSnNcnss2fEhHxj2 YLwHz/fg+Y8526Dgj/B8T8/nMzq/yhmdX+UDSK8JDEcXJy9HRu4WH31otE/pXqiUX4EDYxXN+Aa+gR/g BU32xOElvmntQJ/0+3vgHzzSz/dRr6812chxF/tXR/ c5u0U4R9+0f//gfPuBf/DE3mdB6y088K9c+AcP/CKQ2w244K5d+AcP/IMH/sED/+CBf/DAP3hw/upo20 vI6b58vsYDiLY69Eflll6nwH36QG46yF4nGY0jOQ0yOC6h5UzJpe0/c7cqjn1A8GB9CJ9HP+REGY51St AHHsAD+Aa+gR/unL9iWWmJ+tVB/OBZbQ+b7yyUxfel ZXd4PVtTXU438SazY69O1aHHhK8s7Da82S/NwHDBE61qqIdw2x54eV71gS92fB18rE99WM+Hi4Xil5Pr frDana/keZ1k81duU0gKV3y9uU3UXHv4H4DJ8fYRj/k04VX6ly/r/Y6weR1dNATZ4b4qIW/XWn8+1vbC 8bYXjg/gArzPqxycbz/e5/nEO58oZHfRH4VXgYE52R 42Uy9i60I3DPn10D55GG/v74n+/p7o/uwUsT16TaSweXnHJyB4S/fGuaBSadlCg5Q71hERvSAwjEudX8 z3n8/u/yodZy8Z6B2Fh4R3J4854/luPN+H88nw4o9mcak9Q2wn84962263png0s1+Lnr2Bt/15yfwQ72 [file] MDAwMDAyOTggMDAwMDAgbiAKMDAwMDAwMDQwOSAwMD GxMHCzFWytALRsRCCbQLIcXVAfTKGyNE0fYvKiSNNpMUI8PIXyXDKbXHFbzaBVNLAvLFVcYZe9GOPnBL TdBUVrKGrmKZFpFAObSDR3JMKiRZBaSX2zMqTuUZMnNJM7SoIqPUAvIODzgwCYZBVqWLBuSDH2IkHtIS DwUIZbDIhcAJQzFPIlMEmbZBGhEMUlHT1tDmNyCFPq NHFbJDylFTGgIZTicbBZYATcAJVwNBVzOcSbZXWiZFKjLOqrFNNoRKg6GhZjVCXjDJFfUK0eOoFwOQUe ADT2PLgfIHCtYRVhfqVNWPUaKTAtWHipMZLiJEUiTCPxKGuwTYZiOFWsABD6FNGvXEKhCK3iWnWjEMFp LTHaFQOpPjS9CvXmRpBVrOFelHaqaxj6LDznM6t5UV EfZXwjFX2bpaLsRESgNexmRl1czLP9SLTiHqiFGd3Fv9TlopT1smAhDrx4HrZeTxOvIC7T ID Date Data Source [id number] 03/29/2020 10:31:00 PM EST [facility] Name Value Range Interpretation Code Description Data Kevin rce(s) Supporting Document(s) COVID-19 [facility] This lab was ordered by [facility] and reported by [facility]. ID Date Data Source [id number] 03/29/2020 10:31:00 PM EST [facility] Name Value Range Interpretation Code Description Data Kevin rce(s) Supporting Document(s) COVID-19 [facility] This lab was ordered by [facility] and reported by [facility]. ID Date Data Source [id number] 03/29/2020 11:07:00 PM EST [facility] Name Value Range Interpretation Code Description Data Kevin e(s) Supporting Document(s) COVID-19 NOT DETECTED [facility] COVID-19 [facility] NOT DETECTED [facility] { PROCEDURAL CONTROL VALID KIT LOT # _[id number] 03/29/20.DW . KIT EXP DATE _97-23-84 03/29/20.DW . NORMAL RANGE IS NOT DETECTEDNEGATIVE RESULTS SHOULD BE TREATED PREUMPTIVE AND, IF INCONSISTENT WITHCLINICAL SIGNS AND SYMPTOMS OR NECESSARY FOR PATIENT MANAGEMENT, SHOULD BETESTED WITH DIFFERENT AUTHORIZED OR CLEARED MOLECULAR TESTS. NEGATIVE RESULTSDO NOT PRECLUDE SARS-CoV-2 INFECTION AND SHOULD NOT BE USED THE SOLE BASISFOR PATIENT MANAGEMENT DECISIONS. ID Date Data Source [id number] 03/29/2020 10:08:00 PM [address] [place] [address] ---------NAME--------- NUMBER SEX AGE ADMIT DISC. XRAY# F/C TYPE ABIMAEL Fair [id number] M 79 03/29/20 [id number] MB4 E/R DATE OF : 1940 M/R# [id number] #: [id number] TR-05 LOCATION: EMERGENCY DEPT TRANSCRIBED: 03/29/20 22:08 IF CHEST PORTABLE [id number] COMPLETED:03/29/20 22:09 eli 947 Reason(s): Congestion Shortness of Breath PHYSICIAN: SABINA SOLIMANCO ==== R A D I O L [...] rce(s) Supporting Document(s) ID Date Data Source [id number] 03/29/2020 09:54:00 PM [facility] Name Value Range Interpretation Code Description Data Kevin rce(s) Supporting Document(s) BNP >25713 PG/ML 0 - 450 H [facility] ID Date Data Source [id number] 03/29/2020 09:43:00 PM [facility] Name Value Range Interpretation Code Description Data Kevin rce(s) Supporting Document(s) COMPREHENSIVE METABOLIC PANEL [facility] COMPREHENSIVE METABOLIC PANEL Sodium [Moles/volume] in Serum or Plasma 137 mEq/L 134 - 153 [facility] Potassium [Moles/volume] in Serum or Plasma 5.5 mEq/L 3.6 - 5.0 H [facility] Chloride [Moles/volume] in Serum or Plasma 96 mEq/L 98 - 107 L [facility] Carbon dioxide, total [Moles/volume] in Serum or Plasma 25 MEQ/L 22 - 30 [facility] Glucose [Mass/volume] in Serum or Plasma 87 MG/DL 65 - 110 [facility] BUN 47 MG/DL 7 - 21 H [facility] Creatinine [Mass/volume] in Serum or Plasma 10.6 MG/DL 0.7 - 1.5 HH [facility] CALL/ READ BACK TAHIRA IN ED [facility] BY: TALITA [facility] DATE/TIME [facility] BUN/CREAT 4 8 - 27 L [facility] Protein [Mass/volume] in Serum or Plasma 5.3 G/DL 6.3 - 8.2 L [facility] Albumin [Mass/volume] in Serum or Plasma 3.3 G/DL 3.9 - 5.0 L [facility] Globulin [Mass/volume] in Serum by calculation 2.0 GM/DL 2.4 - 3.2 L [facility] A/G RATIO 1.7 0.8 - 2.0 [facility] Calcium [Mass/volume] in Serum or Plasma 9.2 MG/DL 8.4 - 10.2 [facility] Bilirubin.total [Mass/volume] in Serum or Plasma <0.7 MG/DL 0.2 - 1.3 [facility] Alkaline phosphatase [Enzymatic activity/volume] in Serum or Plasma 67 U/L 38 - 126 [facility] Aspartate aminotransferase [Enzymatic activity/volume] in Serum or Plasma 15 U/L 5 - 40 [facility] Alanine aminotransferase [Enzymatic activity/volume] in Seru m or Plasma 21 U/L 7 - 56 [facility] Anion gap 3 in Serum or Plasma 16.0 mmol/L 8.0 - 16.0 [facility] AGE 79 yrs [facility] NON-AA G[facility] 5 mL[facility] GFR 6 mL/min [facility] Male GFR In terprentation 20-49 [...] >32 mL/min Normal ID Date Data Source [id number] 03/29/2020 09:34:00 PM [facility] [facility] Name Value Range Interpretation Code Description Data Kevin rce(s) Supporting Document(s) TROPONIN T 0.23 NG/ML 0.00 - 0.10 [facility] spital CALL/ READ BACK JAYDON IN ED [facility] BY: TALITA [facility] DATE/TIME [facility] TROPONIN T0.1 ng/ml Recommended as the c linical threshold value forTroponin T. ID Date Data Source [id number] 03/29/2020 09:09:00 PM [facility] Name Value Range Interpretation Code Description Data Kevin rce(s) Supporting Document(s) Prothrombin time (PT) 13.8 SECONDS 11.0 - 15.5 [facility] INR in Platelet poor plasma by Coagulation assay 1.01 0.93 - 1. 23 [facility] \\BLDo\\INR INTERPRETATION\\BLDx\\ Therapeutic range for Coumadin and related oral anticoagulants. - International Normalized Ratio (INR): 2.0 - 3.0 for Venous Thrombosis, Pulmonary Embolus, Tissue heart valves, Acute CT, Atrial Fibrillation, Valvular heart disease and recurrent Systemic Embolism. -International Normalized Ratio (INR): 2.5 - 3.5 for Mechanical Prosthetic valve. ID Date Data Source [id number] 03/29/2020 09:04:00 PM [facility] Name Value Range Interpretation Code Description Data Kevin rce(s) Supporting Document(s) CBC W/AUTOMATED DIFF [facility] COMPLETE BLOOD COUNT Leukocytes [#/volume] in Blood by Automated count 6.2 10^3/uL 4.2 - 1 1.0 [facility] Erythrocytes [#/volume] in Blood by Automated count 2.61 10^6/uL 4. 50 - 6.30 L [facility] Hemoglobin [Mass/volume] in Blood 8.0 g/dL 14.0 - 16.0 L [facility] Hematocrit [Volume Fraction] of Blood by Automated count 25.2 % 4 1.0 - 51.0 L [facility] Erythrocyte mean corpuscular volume [Entitic volume] by Auto mated count 96.6 fL 80.0 - 94.0 H [facility] Erythrocyte mean corpuscular hemoglobin [Entitic mass] by Automated count 30.7 pg 27.0 - 34.0 [facility] Erythrocyte mean corpuscular hemoglobin concentration [Mass/volume] by Automated count 31.7 g/dL 31.0 - 36.0 [facility] Erythrocyte distribution width [Ratio] by Automated count 15.6 % 11.5 - 14.8 H [facility] Platelets [#/volume] in Blood by Automated count 241 10^3/uL 150 - 45 0 [facility] Platelet mean volume [Entitic volume] in Blood by Automated count 10.5 fL 7.4 - 10.4 H [facility] Neutrophils/100 leukocytes in Blood by Automated count 53.4 % 37. 0 - 80.0 [facility] Lymphocytes/100 leukocytes in Blood by Manual count 31.5 % 25.0 - 40.0 [facility] Monocytes/100 leukocytes in Blood by Automated count 8.5 % 3.0 - 8.0 H [facility] Eosinophils/100 leukocytes in Blood by Automated count 5.7 % 0.0 - 7.0 [facility] Basophils/100 leukocytes in Blood by Automated count 0.7 % 0.0 - 2.0 [facility] %IG 0.2 % 0.0 - 0.0 [facility] % 0.0 - 0.0 [facility] al Neutrophils [#/volume] in Blood by Automated count 3.29 10^3/uL 2.00 - 6.90 [facility] Lymphocytes [#/volume] in Blood by Automated count 1.94 10^3/uL 0.60 - 3.40 [facility] Monocytes [#/volume] in Blood by Automated count 0.52 10^3/uL 0.00 - 0.90 [facility] Eosinophils [#/volume] in Blood by Automated count 0.35 10^3/uL 0.00 - 0.70 [facility] Basophils [#/volume] in Blood by Automated count 0.04 10^3/uL 0.00 - 0.20 [facility] #IG 0.01 10^3/uL 0.00 - 0.10 [facility] #NRBC 0.00 10^3/uL 0.00 - 0.00 [facility] ospital MANUAL DIFF NOT INDICATED [facility] RBC MORPH NOT INDICATED [facility] spital ID Date Data Source [id number] 02/12/2020 11:36:32 AM EST [facility] Name Value Range Interpretation Code Description Data Kevin rce(s) Supporting Document(s) SODIUM 139 mmol/L (136-145) [facility] POTASSIUM 3.9 mmol/L (3.6-5.2) [facility] CHLORIDE 99 mmol/L (100-108) L [facility] CO2 33 mmol/L (22-31) H [facility] ANION GAP 7 mmol/L (7-16) [facility] UREA NITROGEN 37 mg/dL (7-24) H [facility] CREATININE 10.10 mg/dL (0.80-1.30) HH [facility] CONSISTENT WITH PREVIOUS RESULTS BUN/CREAT RATIO 3.7 RATIO (10.0-20.0) L [facility] GLUCOSE 113 mg/dL (70-99) H [facility] CALCIUM 9.2 mg/dL (8.4-10.2) [facility] GFR 5 ml/min/1.73m2 (>59) L [facility] GFR ( AMER) 6 ml/min/1.73m2 (>59) L [facility] GFR INTERPRETATION [facility] --NORMAL KIDNEY FUNCTION OR MILD DISEASE - GFR >OR= 60CHRONIC KIDNEY DISEASE - GFR 15 - 59RENAL FAILURE - GFR <15 Est. GFR calculation based on the MDRDstudy equation, which assumes a steadystate for creatinine. Est. GFR should notbe used for medication dosing. ID Date Data Source [id number] 02/12/2020 11:15:16 AM EST [facility] Name Value Range Interpretation Code Description Data Kevin rce(s) Supporting Document(s) WBC 5.7 10*3/uL (4.1-11.0) [facility] [place] RBC 3.23 10*6/uL (4.60-6.10) L [facility] HGB 9.8 g/dL (13.5-18.0) L [facility] HCT 30.6 % (41.0-53.0) L [facility] MCV 94.7 fL (80.0-95.0) [facility] MCH 30.4 pg (27.0-32.0) [facility] MCHC 32.1 g/dL (32.0-36.0) [facility] RDW 17.9 % (10.5-14.5) H [facility] PLT 317 10*3/uL (150-450) [facility] MPV 8.1 fL (7.1-10.7) [facility] ID Date Data Source [id number] 02/12/2020 08:17:00 AM EST [facility] DATE OF EXAM: 02/11/2020MRI RIGHT FOOT W ITHOUT CONTRAST INDICATION: Right great toe infection, rule out osteomyelitis, diabetic TECHNIQUE: Multiplanar multisequence MRI without contrast.MAGNET: 1.5 [facility] COMPARISON/CORRELATION: No existing prior [...] tenosynovitis. J5End of diagnostic report for accession: [id number] Interpreted: Jose A Redmond MDTranscribed: 02/12/2020 08:06 AMSigned: 02/12/2020 08:17 AM Jose A Redmond MD --------- [facility] # [id number] [facility] # [id number] Name Value Range Interpretation Code Description Data Kevin rce(s) Supporting Document(s) ID Date Data Source [id number] 02/11/2020 09:41:00 [place] [address] RESPIRATORY CARE REPORT ==== ---------NAME------- NUMBER SEX AGE ADMIT DISC. XRAY# F/C TYPEGROCE CASSIDY Fair [id number] M 79 02/09/20 02/09/20 [id number] MB4 E/R DATE OF : 1940 M/R# [id number] #: [id number] TR-02 LOCATION: [place] [address] COMP LETE:02/09/20 08:[address] [facility] [address] PHYSICIAN: ELIDA DE OLIVEIRA Name Value Range Interpretation Code Description Data Kevin rce(s) Supporting Document(s) ID Date Data Source [id number] 02/11/2020 09:13:00 AM EST [facility] [address] [place] [address] PHONE: [phone] FAX: [phone] Name .................. : ABIMAEL Fair Acct Number.................. : [id number] ROOM. ................. : [address] Number ................... : [id number] Stay type ............. : E/R Discharge Date......... ... : 02/09/20 Admit Date ......... : 02/09/20 Admit Phys .................... : ELIDA DE OLIVEIRA Date of ....... : 1940 Family Phys ................... : UNKNOWN Phone . ................. : [phone] Age ................................ : 79 Film# .................. .:[id number] Sex ................................. : M Unsigned transcriptions are preliminary reports and do not represent a medical or legal document CHEST PORTABLE [id number] COMPLETE:02/09/20 05:30 RLB [id number] Reason(s): Shortness of Breath AP PORTABLE CHEST X-RAY: FINDINGS: The lung laurent are clear. The heart and mediastinum are within normal limits. Atherosclerotic changes in the aorta with no signs of any acute disease and no change from 02/03/20. IMPRESSION: No acute disease with no significant changes. Electronically Reviewed and Signed By TEE CALDERON MD , 02/11/20 09:13, [facility] Transcribe Initials: DALE , Transcribe Date: 02/09/20 08:51, Dictation Date: Copy for: EMERGENCY DEPT via modem Copy for: 710 MED REC DISCHARGED Page 1 of 1 Name Value Range Interpretation Code Description Data Kevin rce(s) Supporting Document(s) ID Date Data Source [id number] 02/09/2020 04:08:00 AM EST [facility] 1 OrderSheet [facility] Emergency Department [address] [place] [address] Phone #: ext- [phone] 02/09/2020 04:07 Patient: [...] 05:05 Merritt Kenny Laura Laura R.N. Physician; RBrianaNBrianaCBC w Diff STAT 04:18 02/09/2020 Ack'd: 04:23 05:05 Merritt Kenny Laura Laura R.N. Physician; R.NBrianaCMP STAT 04:18 02/09/2020 Ack'd: 04:23 05:05 Merritt Kenny Laura Laura R.N. Physician; R.NBrianaD- Dimer STAT 04:18 02/09/2020 Ack'd: 04:23 05:05 Merritt Kenny Laura Laura R.N. Physician; R.NBrianaDIAGNOSTIC STUDY ORDERSOrder Description Priority Entered Acknowledged InitialedChest Portable 1 STAT 04:18 02/09/2020 Ack'd: 04:23 04:41 Kyung Kenny (Oxygen? Ghassan Lee R.N.(Yes)) Physician; R.NBriana Reason for Study: Shortness of BreathMEDICATION/IV/DRIP/FLUID ORDERSOrder Description Priority Entered Acknowledged Initialed 2 OrderSheet [facility] Emergency Department [address] [place] [address] Phone #: ext- [phone] 02/09/2020 04:07 Patient: CASSIDY VARGHESE Sex: M : 1940 Age: 79yDuoNeb 3 mL X2 04:19 02/09/2020 04:43 Brush,Doses: 6 mL (3 mL Merritt Marrero VirginiaX2 Doses) Physician;SOLU-Medrol 125 04:19 02/09/2020 04:41 Zoya,mg IV X1 Dose: 125 Merritt Morton R.N.mg (X1) Phy sician;DuoNeb Neb Tx 3 05:23 02/09/2020 05:29 KathymL (NOW) Merritt Newell RN Physician;Rocephin 05:23 02/09/2020 Cancelled: Physician Order 06:05 Merritt(1gm/50mL) IVPB Merritt Marrero Qiospgbfm3401 mg with Physician;Dextrose 50 mlspike bag (D5W)Rocephin [...] RN (07:44 02/09/2020)][Electronically signed by Merritt Marrero Physician (07:17 02/10/2020)][Electronically locked by Angie Hardin RN (07:44 02/09/2020)] Name Value Range Interpretation Code Description Data Kevin rce(s) Supporting Document(s) ID Date Data Source [id number] 02/09/2020 04:08:00 AM EST [facility] 1 Medication Reconciliation Report [facility] Emergency Department [address] [place] [address] Phone #: ext- [phone] 02/09/2020 04:07 Patient: CASSIDY VARGHESE Sex: M : 1940 Age: 79yWeight: 75.1 kgHeight/Length: 70 in.BMI: 23.8ALLERGIES: Amlodipine, Hydralazine, Indocin, Minoxidil, Mircera, NorvascThe patient's Home Medications are listed below:THE FOLLOWING MEDICATIONS NEED TO BE RECONCILED: Albuterol Sulfate Inhalation Allopurinol Oral (100 mg) 1 tablet, daily, prn Aspir-81 Oral, daily Calcium Acetate Oral 667 mg, 3x a day Epogen Injection (41976 unit/mL), once a week Heparin Sodium (Porcine) [...] 3x a day 2 Medication Reconciliation Report [facility] Emergency Department [address] [place] [address] Phone #: ext- [phone] 02/09/2020 04:07 Patient: [...] rce(s) Supporting Document(s) ID Date Data Source [id number] 02/09/2020 04:08:00 AM EST [facility] 1 Medication Administration Record [facility] Emergency Department [address] [place] [address] Phone #: ext- [phone] 02/09/2020 04:07 Patient: [...] (NOW)05:29 02/09/2020 Dose: 1 unit dose Nebulizer Ambar Newell RNGiven ROCEPHIN [IM] (CEFTRIAXONE Rocephin IM 1000 mg (NOW)06:14 02/09/2020 SODIUM)Carmella Newell RN Dose: 1 gm IM Name Value Range Interpretation Code Description Data Kevin rce(s) Supporting Document(s) ID Date Data Source [id number] 02/09/2020 04:08:00 AM [facility] 1 General Instructions [facility] Emergency Department [address] [place] [address] Phone #: ext- [phone] 02/09/2020 04:07 Patient: CASSIDY VARGHESE Sex: M : 1940 Age: 79yAcute exacerbation of COPD (asthmatic, chronic bronchitis).Severe chronic renal failure- end stage disease (Bilateral nephrectomies - Dialysis- dependent).(Electronically signed by Merritt Marrero, Physician 02/10/2020 07:17) Name Value Range Interpretation Code Description Data Kevin rce(s) Supporting Document(s) ID Date Data Source [id number] 02/09/2020 04:08:00 AM [facility] 1 Clinical Report - Nurses [facility] Emergency Department [address] [place] [address] Phone #: ext- [phone] 02/09/2020 04:07 Patient: [...] F. Pain level now: 0/10. Additional comments: duo neb tx. --04:20 02/09/20 Ghassan Kneny R.N. 04:22 02/09/20. BP: 160/90. MAP: 113. --04:22 02/09/20 Ghassan Kenny R.N. Weight: 75.1 kg measured. Height/Length: 70 inches Estimated. BMI: 23.8. --04:18 02/09/20 Ghassan Kenny R.N. Medications Albuterol Sulfate Inhalation. Allopurinol Oral (Tablet 100 mg) 1 tablet, daily as needed. Aspir- 81 Oral, daily. Calcium Acetate Oral 667 mg, 3x a day. Epogen Injection (Solution 74594 unit/mL), once a week. Heparin Sodium (Porcine) [...] Inhalation, daily. 2 Clinical Report - Nurses [facility] Emergency Department [address] [place] [address] Phone #: ext- [phone] 02/09/2020 04:07 Patient: CASSIDY VARGHESE Sex: M : 1940 Age: 79yUloric Oral 40 mg, daily. --04:19 02/09/20 Ghassan Kenny R.N.AllergiesAmlodipine.Hydralazine.Indocin.Minoxidil.Mircera.Norvasc. --04:19 02/09/20 Ghassan Kenny R.N.PROBLEMS:GI Disease.Diabetes Mellitus.Hypertension.Heart Disease.Cellulitis.Acute Myocardial Infarction.Abnormal Test.Bronchospasm.Asthma.Hypokalemia.Respiratory Failure.Renal Failure.Weakness.Sepsis (disorder).Pulmonary Edema.Nephropathy.Prostate Cancer.Other Disease.Lung Disease. --04:19 02/09/20 Ghassan Kenny R.N.ADDITIONAL SURGERIES:Bilateral Nephrectomy.Nephrectomy.Prostatectomy.Toe surgery. --04:19 02/09/20 Ghassan Kenny R.N.HistoryPAST MEDICAL HX: Immunizations: up-to-date.SOCIAL [...] of CRE. 3 Clinical Report - Nurses [facility] Emergency Department [address] [place] [address] Phone #: ext- [phone] 02/09/2020 04:07 Patient: [...] assessment completed. No skin integrity risk identified. --04:02/09/20 Ghassan Kenny R.N. late entry - 04:20 [...] R.N. GI / : ( peritoneal dialysis). --04:02/09/20 Ghassan Kenny R.N. 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 --04:02/09/20 Ghassan Kenny R.N. 4 Clinical Report - Nurses [facility] Department [address] [place] [address] Phone #: ext- [phone] 02/09/2020 04:07 Patient: CASSIDY VARGHESE Sex: M : 1940 Age: 79yNURSING PROGRESS NOTES Cardiac rhythm: sinus tachycardia. Oxygen administered (duo neb tx given). monitor and storage bin tender, NIBP monitor and pulse oximeter placed on [...] at 2 5 Clinical Report - Nurses [facility] Department [address] [place] [address] Phone #: ext- [phone] 02/09/2020 04:07 Patient: [...] bilaterally. He is now awaiting transfer to [facility] Three patient identifiers checked. Call light placed [...] air. Temp: 98.3 F. Pain level now: 0/10. --07:13 02/09/20 Ghassan Kenny R.N.DISPOSITION / DISCHARGE Transferred to [facility]. Visit overview, summary of care (CCDA) and [...] Awaiting for ambulance to transport pt to [facility]). --06:46 02/09/20 Ghassan Kenny R.N. 06:46 02/09/2020 Site #1 removed upon admission. Bandaid applied (IV blew). --06:47 02/09/20 Ghassan Kenny R.N. 07:35 02/09/20. BP: 134/69. MAP: 90. HR: 107. RR: 20. O2 saturation: 99% on nasal cannula at 2 liters/minute. Temp: 98.5 F. Pain level now: 0/10. --07:44 02/09/20 Angie Hardin RN Departure time: 07:40 02/09/2020. --07:44 02/09/20 Angie Hardin RN. 6 Clinical Report - Nurses [facility] Department [address] [place] [address] Phone #: ext- [phone] 02/09/2020 04:07 Patient: CASSIDY VARGHESE Sex: M : 1940 Age: 79yLocked/Released at 02/09/2020 07:44 by Angie Hardin RN Name Value Range Interpretation Code Description Data Kevin rce(s) Supporting Document(s) ID Date Data Source [id number] 02/09/2020 04:08:00 AM EST [facility] 1 Clinical Report - Physicians/Mid Levels [facility] Emergency Department [address] [place] [address] Phone #: ext- [phone] 02/09/2020 04:07 Patient: [...] started 7 days ago; Seen here in [facility] ED and discharged after COPD exacerbation. Now [...] the emergency department. ( Seen here in [facility] ED 7 days ago).REVIEW OF SYSTEMSThe patient [...] surgery). 2 Clinical Report - Physicians/Mid Levels [facility] Department [address] [place] [address] Phone #: ext- [phone] 02/09/2020 04:07 Patient: CASSIDY VARGHESE Sex: M [...] making process. EKG: (MIKE: 02/09/2020 05:52) ( MsgRcvd 02/09/2020 08:58) In Progress Urinalysis: (MIKE: 02/09/2020 04:18) ( MsgRcvd 02/10/2020 05:55) Canceled SOURCE: Clean Catch Troponin-T: (MIKE: 02/09/2020 05:04) ( MsgRcvd 02/09/2020 05:33) Final results Test Result Flag Units (Reference) TROPONIN T 0.11 HH NG/ML (0.00 - 0.10) CALL/ READ BACK DR MARRERO BY: MAURA DATE/TIME 02/09/20 0530 TROPONIN T0.1 ng/ml Recommended as the clinical threshold value Remi Byrd CBC w Diff: (MIKE: 02/09/2020 05:04) ( MsgRcvd 02/09/2020 05:18) Final results Test Result Flag Units (Reference) CBC W/AUTOMATED DIFF COMPLETE BLOOD COUNT 3 Clinical Report - Physicians/Mid Levels [facility] Department [address] [place] [address] Phone #: ext- [phone] 02/09/2020 04:07 Patient: [...] Male GFR Interprentation 20-49 yrs >60 mL/min Ceecnt64-84 yrs >56 mL/min Normal 60-69 yrs >49 mL/min Normal 70-79yrs>42 mL/min Normal 80 and above >35 mL/min Normal Female GFRInterpretation 20-39 yrs >60 mL/min Normal 40-49 yrs >58 mL/min 4 Clinical Report - Physicians/Mid Levels [facility] Department [address] [place] [address] Phone #: ext- [phone] 02/09/2020 04:07 Patient: CASSIDY VARGHESE Sex: M : 1940 Age: 79yNormal 50-59 yrs >51 mL/min Normal 60-69 yrs >45 mL/min Zbonqc48-74 yrs >39 mL/min Normal 80 and above >32 mL/min NormalD-Dimer: (MIKE: 02/09/2020 05:04) ( MsgRcvd 02/09/2020 05:18) Final results Test Result Flag Units (Reference) D-DIMER QUANT 0.92 H ug/mL (0.27 - 0.50)Chest Portable 1 View: (MIKE: 02/09/2020 04:18) ( MsgRcvd 02/09/2020 08:53) In ProgressCHEST PORTABLEReason(s): Shortness of BreathTRANSPORTATION: S IV? O2? Oxygen?(Yes) Room: E Exam CHEST PORTABLE [address] [place] [address] PHONE: [phone] FAX: [phone] Name .................. : ABIMAEL Fair Acct Number.................. : [id number] ROOM. ................. : TR- MR Number ................... : [id number] Stay type ............. : E/R Discharge Date......... ... : 02/09/20 Admit Date ......... : 02/09/20 Admit Phys .................... : VENERUS BR Date of ....... : 1940 Family Phys ................... : UNKNOWN Phone .................. : [phone] Age ................................ : 79 Film# .................. .:[id number] Sex ................................. : M Unsigned transcriptions are preliminary reports and do not represent a medical or legal document CHEST PORTABLE [id number] COMPL ETE:02/09/20 05:30 RLB [id number] Reason(s): Shortness of Breath AP PORTABLE CHEST X-RAY: FINDINGS: The lung laurent are clear. The heart and mediastinum are within normal limits. Atherosclerotic changes in the aorta with no signs of any acute disease and no change from 02/03/20. IMPRESSION: No acute disease with no significant changes. Electronically Reviewed and Signed By DCTNAME , SIGNDATE, BRANDON Transcribe Initials: DALE , Transcribe Date: 02/09/20 08:51, Dictation Date: <<REPDIST>> Page 1of 1 5 Clinical Report - Physicians/Mid Levels [facility] Department [address] [place] [address] Phone #: ext- [phone] 02/09/2020 04:07 [id number] Sex: M : 1940 Age: 79y . [...] with dialysis capacity. I spoke earlier to [facility] and they have no beds available. I am now waiting for a call back from [facility]. 06:[address] Lam [facility] Will send [...] transfer ex plained to patient. Transferred to [facility]. Summary of care (CCDA) provided to transport team, EMS, patient, family and transfer facility via paper and digital media. 06:15 Feb 09 2020 Transfer to [facility] ED by ambulance as per Dr. Lam [...] rce(s) Supporting Document(s) ID Date Data Source [id number] 02/10/2020 07:41:00 AM EST [facility] Name Value Range Interpretation Code Description Data Kevin rce(s) Supporting Document(s) PHOSPHORUS 4.7 mg/dL (2.5-4.5) H [facility] ID Date Data Source [id number] 02/10/2020 07:41:00 AM EST [facility] Name Value Range Interpretation Code Description Data Kevin rce(s) Supporting Document(s) SODIUM 140 mmol/L (136-145) [facility] POTASSIUM 4.0 mmol/L (3.6-5.2) [facility] CHLORIDE 100 mmol/L (100-108) [facility] CO2 32 mmol/L (22-31) H [facility] ANION GAP 8 mmol/L (7-16) [facility] UREA NITROGEN 38 mg/dL (7-24) H [facility] CREATININE 9.76 mg/dL (0.80-1.30) HH [facility] RESULT(S) CALLED TO AND READ BACK BYBRYAN PAULSON ON 6N AT 0739 ON 02/10/20.68187 BUN/CREAT RATIO 3.9 RATIO (10.0-20.0) L [facility] GLUCOSE 93 mg/dL (70-99) [facility] CALCIUM 9.1 mg/dL (8.4-10.2) [facility] TOTAL PROTEIN 5.8 g/dL (6.4-8.2) L [facility] ALBUMIN 2.4 g/dL (3.2-4.5) L [facility] GLOBULIN 3.4 g/dL (2.7-4.3) [facility] ALB/GLOB RATIO 0.7 RATIO [facility] ALKALINE PHOSPHATASE 71 U/L (45-117) [facility] BILIRUBIN,TOTAL 0.3 mg/dL (0.0-1.0) [facility] PLEASE NOTE:Total bilirubin results may be falselyelevated in patients taking Eltrombopag. AST (SGOT) 14 U/L (11-39) [facility] ALT (SGPT) 25 U/L (12-78) [facility] GFR 5 ml/min/1.73m2 (>59) L [facility] GFR ( AMER) 6 [...] for medication dosing. ID Date Data Source [id number] 02/10/2020 07:41:00 AM EST [facility] Name Value Range Interpretation Code Description Data Kevin rce(s) Supporting Document(s) MAGNESIUM 1.9 mg/dL (1.7-2.4) [facility] ID Date Data Source [id number] 02/10/2020 07:04:35 AM EST [facility] Name Value Range Interpretation Code Description Data Kevin rce(s) Supporting Document(s) WBC 7.2 10*3/uL (4.1-11.0) [facility] [place] RBC 2.68 10*6/uL (4.60-6.10) L [facility] HGB 8.3 g/dL (13.5-18.0) L [facility] HCT 25.5 % (41.0-53.0) L [facility] MCV 95.0 fL (80.0-95.0) [facility] MCH 30.8 pg (27.0-32.0) [facility] MCHC 32.4 g/dL (32.0-36.0) [facility] RDW 17.6 % (10.5-14.5) H [facility] PLT 265 10*3/uL (150-450) [facility] MPV 7.7 fL (7.1-10.7) [facility] ID Date Data Source [id number] 02/10/2020 07:05:00 AM EST [facility] [id number] [place], [place] [address]YMDCHEZ NAME: CASSIDY VARGHESEDABERTHA OF : 1940REPORT: ADMISSION NOTEPATIENT NUMBER: [id number] STATUS: IPMEDICAL RECORD NUMBER: [id number] OF ADMISSION: 02/09/2020ROOM: [address] [place] [address] CARE PROVIDER: Out of area.ADMITTING COMPLAINTS:1. Cough.2. 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 Recently, he went to the ER for [...] gram intramuscular onceExtended Instructions: *Dose administered in [place] ER 02/08 @ 614Medication Status: activeLast Taken Date/Time: [...] of breathExtended Instructions: *2 doses administered in [place] ER on 02/08Medication Status: activeLast Taken Date/Time: 02/08 @ 0433 & 0529latanoprost 0.005 % Drops 1 drop ophthalmic, both eyes daily at bedtimeMedication Status: activemethylPREDNISolone sodium succ (Solu-MEDROL) 125 mg Recon Soln 1 doseintravenous onceExtended Instructions: *Dose administered in [place] ER 02/08 @0441Medication Status: activeLast Taken Date/Time: [...] shiny. Great toe is dressed.Papers sent from [facility] reviewed.PERTINENT INVESTIGATIONS: COVID negative. X-ray chest, single view: Noacute cardiopulmonary process. No EKG was done. Labs, [place]. Repeat labs ordered for tomorrow.ASSESSMENT AND PLAN: Mr. Cassidy Varghese, a very pleasant 79-year-old AfricanAmerican gentleman, [facility] [...] FRANNIE Dubonictated: 02/09/2020 17:56DT: 02/09/2020 21:55Job #: [id number]: [facility] computer generated reports are notconfirmed or authentic`ated unless they are signed by the providerElectronically Authenticated and Edited by:Cornel Campa MD On 02/10/2020 07:05 AM EST Name Value Range Interpretation Code Description Data Kevin rce(s) Supporting Document(s) ID Date Data Source [id number] 02/15/2020 10:33:37 AM EST [facility] [place] [facility] SPECIMEN DESCRIPTION PERIPHERALSP ECIAL REQUESTS NONECULTURE RESULTS NO GROWTH 6 DAYSREPORT STATUS FINAL 02/15/2020 Name Value Range Interpretation Code Description Data Kevin rce(s) Supporting Document(s) ID Date Data Source [id number] 02/15/2020 10:33:37 AM EST [facility] [place] [facility] SPECIMEN DESCRIPTION PERIPHERALSP ECIAL REQUESTS NONECULTURE RESULTS NO GROWTH 6 DAYSREPORT STATUS FINAL 02/15/2020 Name Value Range Interpretation Code Description Data Kevin rce(s) Supporting Document(s) ID Date Data Source [id number] 02/09/2020 10:23:00 AM EST [facility] DATE OF EXAM: 02/09/2020AP chest [...] process. K8End of diagnostic report for accession: [id number] Interpreted: Chung Bennett MDTranscribed: 02/09/2020 10:23 AMSigned: 02/09/2020 10:23 AM Chung Bennett MD [facility] ACC # [id number] BILL # [id number] Name Value Range Interpretation Code Description Data Kevin rce(s) Supporting Document(s) ID Date Data Source [id number] 02/09/2020 10:09:00 AM EST Lab [facility] Name Value Range Interpretation Code Description Data Kevin rce(s) Supporting Document(s) SARS coronavirus 2 RNA [Presence] in Res piratory specimen by RAY with probe detection [facility] [place] [facility] This lab was reported by [facility]. ID Date Data Source [id number] 02/09/2020 11:48:57 AM EST Lab [facility] Name Value Range Interpretation Code Description Data Kevin rce(s) Supporting Document(s) SPECIMEN DESCRIPTION [facility] INFLUENZA A (NEG) [facility] [place] [facility] INFLUENZA B (NEG) [facility] [place] [facility] RSV (NEG) [facility] [place] [facility] COMMENT [facility] [place] [facility] UNDER AN EMERGENCY USE AUTHORIZATION(EUA ) FOR THE DETECTION AND/OR DIAGNOSISOF THE VIRUS THAT CAUSES COVID-19.PERFORMED AT [address] [facility] [address] COVID19 RESULT (NDET) Lab [facility] THIS ASSAY AMPLIFIES AND DETECTSTHE TARG ET RNA USING REAL-TIME PCR.NEGATIVE 2019_NCOV RT-PCR RESULTS DONOT PRECLUDE 2019_NCOV INFECTION ANDSHOULD NOT BE USED THE SOLE BASISFOR PATIENT MANAGEMENT DECISIONS. FIRST TEST [facility] [place] [facility] EMPLOYED IN HLTHCARE [facility] SYMPTOMATIC [facility] [place] [facility] DATE OF SYMPT ONSET [id number] [facility] HOSPITALIZED [facility] [place] [facility] ICU [facility] [place] [facility] SET [facility] [place] [facility] ID Date Data Source [id number] 02/09/2020 05:34:00 AM EST [facility] Name Value Range Interpretation Code Description Data Kevin rce(s) Supporting Document(s) COMPREHENSIVE METABOLIC PANEL [facility] COMPREHENSIVE METABOLIC PANEL Sodium [Moles/volume] in Serum or Plasma 137 mEq/L 134 - 153 [facility] Potassium [Moles/volume] in Serum or Plasma 4.2 mEq/L 3.6 - 5.0 [facility] Chloride [Moles/volume] in Serum or Plasma 94 mEq/L 98 - 107 L [facility] Carbon dioxide, total [Moles/volume] in Serum or Plasma 30 MEQ/L 22 - 30 [facility] Glucose [Mass/volume] in Serum or Plasma 127 MG/DL 65 - 110 H [facility] BUN 32 MG/DL 7 - 21 [facility] Creatinine [Mass/volume] in Serum or Plasma 9.6 MG/DL 0.7 - 1.5 [facility] CALL/ READ BACK [facility] BY: MAURA [facility] 02/09/20 0533 [facility] ospital BUN/CREAT 3 8 - 27 L [facility] Protein [Mass/volume] in Serum or Plasma 6.5 G/DL 6.3 - 8.2 [facility] Albumin [Mass/volume] in Serum or Plasma 3.6 G/DL 3.9 - 5.0 L [facility] Globulin [Mass/volume] in Serum by calculation 2.9 GM/DL 2.4 - 3.2 [facility] A/G RATIO 1.2 0.8 - 2.0 [facility] Calcium [Mass/volume] in Serum or Plasma 10.3 MG/DL 8.4 - 10.2 H [facility] Bilirubin.total [Mass/volume] in Serum or Plasma <0.7 MG/DL 0.2 - 1.3 [facility] Alkaline phosphatase [Enzymatic activity/volume] in Serum or Plasma 94 U/L 38 - 126 [facility] Aspartate aminotransferase [Enzymatic activity/volume] in Serum or Plasma 20 U/L 5 - 40 [facility] Alanine aminotransferase [Enzymatic activity/volume] in Seru m or Plasma 24 U/L 7 - 56 [facility] Anion gap 3 in Serum or Plasma 13.0 mmol/L 8.0 - 16.0 [facility] AGE 79 [facility] 6 mL/min [facility] AFR AMER GFR 7 mL/min [facility] Male GFR In terprentation 20-49 [...] >32 mL/min Normal ID Date Data Source [id number] 02/09/2020 05:30:00 AM [facility] Name Value Range Interpretation Code Description Data Kevin rce(s) Supporting Document(s) TROPONIN T 0.11 NG/ML 0.00 - 0.10 [facility] spital CALL/ READ BACK DR MARRERO [facility] BY: MAURA [facility] DATE/TIME 02/09/20 0530 [facility] ospital TROPONIN T0.1 ng/ml Recommended as the c linical threshold value forTroponin T. ID Date Data Source [id number] 02/09/2020 05:18:00 AM [facility] Name Value Range Interpretation Code Description Data Kevin rce(s) Supporting Document(s) CBC W/AUTOMATED DIFF [facility] COMPLETE BLOOD COUNT Leukocytes [#/volume] in Blood by Automated count 12.3 10^3/uL 4.2 - 11.0 H [facility] Erythrocytes [#/volume] in Blood by Automated count 2.93 10^6/uL 4. 50 - 6.30 L [facility] Hemoglobin [Mass/volume] in Blood 9.1 g/dL 14.0 - 16.0 L [facility] Hematocrit [Volume Fraction] of Blood by Automated count 27.7 % 4 1.0 - 51.0 L [facility] Erythrocyte mean corpuscular volume [Entitic volume] by Auto mated count 94.5 fL 80.0 - 94.0 H [facility] Erythrocyte mean corpuscular hemoglobin [Entitic mass] by Automated count 31.1 pg 27.0 - 34.0 [facility] Erythrocyte mean corpuscular hemoglobin concentration [Mass/volume] by Automated count 32.9 g/dL 31.0 - 36.0 [facility] Erythrocyte distribution width [Ratio] by Automated count 16.9 % 11.5 - 14.8 H [facility] Platelets [#/volume] in Blood by Automated count 325 10^3/uL 150 - 45 0 [facility] Platelet mean volume [Entitic volume] in Blood by Automated count 9.4 fL 7.4 - 10.4 [facility] Neutrophils/100 leukocytes in Blood by Automated count 35.8 % 37. 0 - 80.0 L [facility] Lymphocytes/100 leukocytes in Blood by Manual count 33.9 % 25.0 - 40.0 [facility] Monocytes/100 leukocytes in Blood by Automated count 7.7 % 3.0 - 8.0 [facility] Eosinophils/100 leukocytes in Blood by Automated count 22.1 % 0.0 - 7.0 H [facility] Basophils/100 leukocytes in Blood by Automated count 0.3 % 0.0 - 2.0 [facility] %IG 0.2 % 0.0 - 0.0 [facility] %NRBC 0.0 % 0.0 - 0.0 [facility] al Neutrophils [#/volume] in Blood by Automated count 4.40 10^3/uL 2.00 - 6.90 [facility] Lymphocytes [#/volume] in Blood by Automated count 4.18 10^3/uL 0.60 - 3.40 H [facility] Monocytes [#/volume] in Blood by Automated count 0.95 10^3/uL 0.00 - 0.90 H [facility] Eosinophils [#/volume] in Blood by Automated count 2.73 10^3/uL 0.00 - 0.70 H [facility] Basophils [#/volume] in Blood by Automated count 0.04 10^3/uL 0.00 - 0.20 [facility] #IG 0.03 10^3/uL 0.00 - 0.10 [facility] #NRBC 0.00 10^3/uL 0.00 - 0.00 [facility] MANUAL DIFF NOT INDICATED [facility] RBC MORPH NOT INDICATED [facility] ID Date Data Source [id number] 02/09/2020 05:18:00 AM [facility] Name Value Range Interpretation Code Description Data Kevin rce(s) Supporting Document(s) Fibrin D-dimer FEU [Mass/volume] in Platelet poor plasma 0.92 ug /mL 0.27 - 0.50 H [facility] ID Date Data Source [id number] 02/04/2020 10:37:00 AM [facility] [address] [place] [address] PHONE: [phone] FAX: [phone] Name .................. : ABIMAEL Fair Acct Number.................. : [id number] ROOM. ................. : TR-03 Number ................... : [id number] Stay type ............. : E/R Discharge Date......... ... : 02/03/20 Admit Date ......... : 02/03/20 Admit Phys .................... : [facility] Date of ....... : 1940 Family Phys ................... : UNKNOWN Phone .................. : [phone] Age ................................ : 79 Film# .................. .:[id number] Sex ................................. : M Unsigned transcriptions are preliminary reports and do not represent a medical or legal document CHEST PORTABLE [id number] COMPLETE:02/03/20 06:21 DLA 23074 Reason(s): Congestion PORTABLE CHEST X-RAY: COMPARISON: 07/26/19 FINDINGS: The cardiac and mediastinal silhouettes appear normal and the lungs are clear. The bones and soft tissues are normal. The upper abdomen is unremarkable. IMPRESSION: No acute disease identifiable. Electronically Reviewed and Signed By Yris Garduno MD , 02/04/20 10:37, KGAlma Transcribe Initials: DALE , Transcribe Date: 02/03/20 08:38, Dictation Date: Copy for: 710 MED REC DISCHARGED Page 1 of 1 Name Value Range Interpretation Code Description Data Kevin rce(s) Supporting Document(s) ID Date Data Source [id number] 02/03/2020 04:11:00 PM EST [facility] ([facility]) Name Value Range Interpretation Code Description Data Kevin rce(s) Supporting Document(s) Albumin [Mass/volume] in Serum or Plasma 3.0 [facility] ([facility] Calcium [Mass/volume] in Serum or Plasma 9.3 [facility] ([facility]) Chloride [Moles/volume] in Serum or Plasma 90 [facility] ([facility] Alanine aminotransferase [Enzymatic activity/volume] in Serum or Pl asma 18 [facility] ([facility]) Carbon dioxide, total [Moles/volume] in Serum or Plasma 24 [facility]) Alkaline phosphatase [Enzymatic activity/volume] in Serum or Plasma 9 6 [facility] ([facility]) Potassium [Moles/volume] in Serum or Plasma 4.1 [facility] ([facility]) Protein [Mass/volume] in Serum or Plasma 5.8 [facility] ([facility]) Aspartate aminotransferase [Enzymatic activity/volume] in Serum or Plasma 18 [facility]) Sodium 131 [facility] Urea nitrogen [Mass/volume] in Serum or Plasma 35 [facility]) Creatinine For GFR 9.9 [facility]) Glucose 105 65-110 [facility] ID Date Data Source [id number] 02/03/2020 12:49:00 [place] [address] RESPIRATORY CARE REPORT ==== ---------NAME------- NUMBER SEX AGE ADMIT DISC. XRAY# F/C TYPEGROCE CASSIDY Fair [id number] M 79 02/03/20 02/03/20 [id number] MB4 E/R DATE OF : 1940 M/R# [id number] PH#: [phone] TR-03 LOCATION: EKG [id number] COMPLETE:02/03/20 0 7:40 [address]120 PHYSICIAN: [facility] [facility] Name Value Range Interpretation Code Description Data Kevin rce(s) Supporting Document(s) ID Date Data Source [id number] 02/03/2020 12:33:00 AM EDT [facility] 1 OrderSheet [facility] Emergency Department [address] [place] [address] Phone #: ext- [phone] 02/03/2020 00:33 Patient: CASSIDY VARGHESE Sex: M : 1940 Age: 79yWEIGHT:68.9 kg (S) HEIGHT:69 inches (S) BMI:22.4ALLERGIES: Amlodipine, Hydralazine, Indocin, Minoxidil, Mircera, NorvascCHIEF COMPLAINT: coughDIAGNOSIS: Bronchospasm, AsthmaLAB ORDERSOrder Description Priority Entered Acknowledged InitialedCMP STAT 01:08 02/03/2020 01:33 Darrel Espino ; Sharifa ARRIAGACBC w Diff STAT 01:08 02/03/2020 01:33 Darrel Espino ; Sharifa RNBNP STAT 01:13 02/03/2020 01:33 Darrel Espino ; Sharifa ARRIAGATroponin-T STAT 01:13 02/03/2020 01:33 Darrel Espino ; Sharifa ARRIAGADIAGNOSTIC STUDY ORDERSOrder Description Priority Entered Acknowledged InitialedChest Portable 1 STAT 01:08 02/03/2020 01:32 Darrel Gimenez ; Sharifa RN(Oxygen?(No)) Reason for Study: Congestion, CoughMEDICATION/IV/DRIP/FLUID ORDERSOrder Description Priority Entered Acknowledged InitialedDuoNeb Neb Tx 3 01:08 02/03/2020 01:32 KrishnaenmL (NOW x1) Darrel Sherman ; Sharifa RNTylenol with 02:07 02/03/2020 Cancelled: Patient Refusal 02:14 StevenCodeine Liquid PO Darrel Sherman ; Sharifa RN5 mL (NOW x1,HIGH ALERTMEDICATION)Tessalon Perles PO 02:14 02/03/2020 02:19 Gzoraa784 mg (NOW x1) Darrel Sherman RNSOLU-Medrol 125 02:16 02/03/2020 Cancelled: Duplicate Order 02:18 Lane,mg IV X1 Dose: 125 Darrel Shermanmg (X1)Dexamethasone 02:18 02/03/2020 02:32 Luiz 2 OrderSheet [facility] Emergency Department [address] [place] [address] Phone #: ext- [phone] 02/03/2020 00:33 Patient: CASSIDY VARGHESE Sex: M : 1940 Age: 79yPO 8 mg (NOW x1) Darrel Sherman ; Sharifa ARRIAGAGENERAL ORDERSOrder Description Priority Entered Acknowledged InitialedEKG 01:08 02/03/2020 01:09 Darrel Whiting ; Sharifa Arevalo[Electronically signed by Luiz Skaggs RN (03:04 02/03/2020)][Electronically signed by Darrel Sherman (06:06 02/03/2020)][Electronically locked by Luiz Skaggs RN (03:04 02/03/2020)] Name Value Range Interpretation Code Description Data Kevin rce(s) Supporting Document(s) ID Date Data Source [id number] 02/03/2020 12:33:00 AM EDT [facility] 1 Medication Reconciliation Report [facility] [address] [place] [address] Phone #: ext- [phone] 02/03/2020 00:33 Patient: CASSIDY VARGHESE Sex: M : 1940 Age: 79yWeight: 68.9 kgHeight/Length: 69 in.BMI: 22.4ALLERGIES: Amlodipine, Hydralazine, Indocin, Minoxidil, Mircera, NorvascThe patient's Home Medications are listed below:THE FOLLOWING MEDICATIONS NEED TO BE RECONCILED: Albuterol Sulfate Inhalation Allopurinol Oral (100 mg) 1 tablet, daily, prn Aspir-81 Oral, daily Calcium Acetate Oral 667 mg, 3x a day Epogen Injection (71366 unit/mL), once a week Heparin Sodium (Porcine) [...] 3x a day 2 Medication Reconciliation Report [facility] [address] [place] [address] Phone #: ext- [phone] 02/03/2020 00:33 Patient: [...] rce(s) Supporting Document(s) ID Date Data Source [id number] 02/03/2020 12:33:00 AM EDT [facility] 1 Medication Administration Record [facility] [address] [place] [address] Phone #: ext- [phone] 02/03/2020 00:33 [id number] Sex: M : 1940 Age: 79yWeight: 68.9 kgHeight/Length: 69 inBMI: 22.4ALLERGIES: Amlodipine, Hydralazine, Indocin, Minoxidil, Mircera, Norvasc Date/Time Medication Administered Medication OrderedGiven DUONEB [NEB TX] DuoNeb Neb Tx 3 mL (NOW x1)01:32 02/03/2020 Dose: 1 unit dose Nebulizer Neb TXStserena Skaggs RNGiven TESSALON PERLES [PO] Tessalon Perles PO 200 mg (NOW02:19 02/03/2020 (BENZONATATE) x1)Luiz Skaggs RN Dose: 200 mg Capsules POGiven DEXAMETHASONE [PO] Dexamethasone PO 8 mg (NOW02:32 02/03/2020 Dose: 8 mg Tablets PO x1)Luiz Skaggs RN Name Value Range Interpretation Code Description Data Kevin rce(s) Supporting Document(s) ID Date Data Source [id number] 02/03/2020 12:33:00 AM EDT [facility] 1 General Instructions [facility] [address] [place] [address] Phone #: ext- [phone] 02/03/2020 00:33 Patient: [...] verbalized. ADDITIONAL INFORMATIONBronchospasm (Adult) 2 General Instructions [facility] Department [address] [place] [address] Phone #: ext- [phone] 02/03/2020 00:33 Patient: CASSIDY VARGHESE Sex: M : 1940 Age: 79yBronchospasm occurs [...] you drink extra fluids. 3 General Instructions [facility] [address] [place] [address] Phone #: ext- [phone] 02/03/2020 00:33 Patient: CASSIDY VARGHESE Sex: Gopi : 1940 Age: 79y Take prescribed medicine [...] breath Increased wheezing or shortness of breath [id number] [employer] [address] [place] [address]. All rights reserved. This information is not intended as asubstitute for professional medical care. Always follow your healthcare professional's instructions.Viral or Bacterial Bronchitis with Wheezing (Adult) 4 General Instructions [facility] Department [address] [place] [address] Phone #: ext- [phone] 02/03/2020 00:33 Patient: CASSIDY VARGHESE Sex: Gopi : 1940 Age: 79yBronchitis is an infection [...] yourself get too tired. 5 General Instructions [facility] [address] [place] [address] Phone #: ext- [phone] 02/03/2020 00:33 Patient: CASSIDY VARGHESE Sex: M : 1940 Age: 79y Dont s'moke. Also avoid being exposed to secondhand smoke. You may use mtei-qan-zerovzu medicine to control fever or pain, unless [...] loosen secretions in the nose and lungs. Dejv-wrj-knjkjor cough, cold, and sore-throat medicines will not [...] any of these occur. 6 General Instructions [facility] Department [address] [place] [address] Phone #: ext- [phone] 02/03/2020 00:33 [facility]: [id number] Sex: M : 1940 Age: 79y Coughing up blood Worsening weakness, drowsiness, headache, or stiff neck Increased wheezing not helped with medication, shortness of breath, or pain with breathing [phone] [employer] [address] [place] [address], [place] [address]. All rights reserved. This information is not [...] medicine more often than directed.Talk to your manager fiber regarding the use of this medicine in children. While this drug may beprescribed for children as young as 10 years old for selected conditions, precautions do apply.What side effects may I notice from receiving this medicine?Side effects that you should report to your doctor or health career guidance technician as soon as possible: allergic reactions like [...] in the eyes constipation 7 General Instructions [facility] [address] [place] [address] Phone #: ext- [phone] 02/03/2020 00:33 Patient: [...] fever, skinrash, or headache, see your health career guidance technician.You may get drowsy or dizzy. Do not drive, use machinery, or do anything that needs mentalalertness until you know how this medicine affects you. Do not sit or stand up quickly, especially ifyou are an older patient. This reduces the risk of dizzy or fainting spells. 8 General Instructions [facility] [address] [place] [address] Phone #: ext- [phone] 02/03/2020 00:33 Patient: CASSIDY VARGHESE Sex: M : 1940 Age: 79yNOTE:This sheet is a summary. It may not cover all possible information. If you have questions about this medicine, talk to your doctor, pharmacist, orhealth care provider. Copyright 2019 [employer] You have been given the following additional information: Bronchospasm (Adult) Bronchitis with Wheezing (Adult) Benzonatate capsules(Electronically signed by Darrel Sherman, 02/03/2020 06:06) Name Value Range Interpretation Code Description Data Kevin rce(s) Supporting Document(s) ID Date Data Source [id number] 02/03/2020 12:33:00 AM EDT [facility] 1 Clinical Report - Nurses [facility] [address] [place] [address] Phone #: ext- [phone] 02/03/2020 00:33 Patient: CASSIDY VARGHESE Sex: M : 1940 Age: 79yTRIAGE Arrived by EMS. Historian: patient. Triage time: 00:40 02/03/2020. Acuity: LEVEL 3. Chief Complaint: COUGH. Onset was gradual. Symptoms are constant and still present (2 months ago). ( becoming worse tonight with home Nebs ineffective). He has had chest congestion and difficulty breathing. Treatment RELATIONS LIAISON: (Nebs). SEPSIS SCREEN: SIRS Screen negative. Sepsis [...] mg, 3x a day. Epogen Injection (Solution 68715 unit/mL), once a week. Heparin Sodium (Porcine) [...] Inhalation, daily. 2 Clinical Report - Nurses [facility] [address] [place] [address] Phone #: ext- [phone] 02/03/2020 00:33 Patient: CASSIDY VARGHESE Sex: M : 1940 Age: 79yUloric Oral [...] Darrel Sherman. 3 Clinical Report - Nurses [facility] [address] [place] [address] Phone #: ext- [phone] 02/03/2020 00:33 Patient: [...] is warm and dry. Normal skin turgor. --00:02/03/20 Luiz Skaggs RN SKIN: ( BKA left). --00:54 02/03/20 Luiz Skaggs RN ( Home dialysis patient). --00:55 02/03/20 Luiz Skaggs RN.NURSING PROGRESS NOTES Cardiac rhythm: normal sinus rhythm; frequent unifocal PVCs. monitor and storage bin tender, NIBP monitor and pulse oximeter placed on patient; school bus monitor- Lead II. EKG time: (00:47 02/03/2020). EKG [...] --02:32 02/03/20 Luiz Skaggs RN.DISPOSITION / DISCHARGE [place] Coma Scale: 15- eyes open- spontaneous (4); best verbal response- oriented (5); best motor response- obeys commands (6). Condition at departure: improved. No learning barriers present. 4 Clinical Report - Nurses [facility] [address] [place] [address] Phone #: ext- [phone] 02/03/2020 00:33 Patient: [facility]GH[id number] Sex: M : 1940 Age: 79y Discharge instructions provided and reviewed with the patient. Reviewed medication(s) side effects, precautions, dosing and course information. Prescription(s) sent electronically to pharmacy. Reviewed nebulizer use instructions. Reviewed referral to family practice for followup. Reviewed high potassium diet. Patient verbalized understanding. Written instructions provided in Maldivian. The patient was discharged home and accompanied by paradichlorobenzene machine operator. He left in a wheelchair and via private vehicle. Allergy And Immunology Specialist driving. --03:03 02/03/20 Luiz Skaggs RN 03:00 02/03/20. BP: 127/74 (regular adult cuff) taken on the right arm, via an automated monitor, while lying. MAP: 91. HR: 86 (regular, normal rate and strong). RR: 24 (regular, unlabored and normal). O2 saturation: 94% on room air. Temp: 98.2 F (oral). Pain level now: 10. --03:03 02/03/20 Luiz Skaggs RN Departure time: 03:04 02/03/2020. --03:04 02/03/20 Luiz Skaggs RN.Locked/Released at 02/03/2020 03:04 by Luiz Skaggs RN Name Value Range Interpretation Code Description Data Kevin rce(s) Supporting Document(s) ID Date Data Source [id number] 02/03/2020 12:33:00 AM EDT [facility] 1 Clinical Report - Physicians/Mid Levels [facility] [address] [place] [address] Phone #: ext- [phone] 02/03/2020 00:33 Patient: [facility]GH[id number] Sex: M : 1940 Age: 79y Time [...] Toe surgery. 2 Clinical Report - Physicians/Mid Levels [facility] [address] [place] [address] Phone #: ext- [phone] 02/03/2020 00:33 Patient: CASSIDY VARGHESE Sex: M : 1940 Age: 79y Medications: Albuterol Sulfate Inhalation. Allopurinol Oral (Tablet 100 mg) 1 tablet, daily as needed. Aspir-81 Oral, daily. Calcium Acetate Oral 667 mg, 3x a day. Epogen Injection (Solution 49753 unit/mL), once a week. Heparin Sodium (Porcine) [...] roomair. Temp: 97.1 F. Pain level now: 6/10.Appearance: Alert. No acute distress. (actively coughing).Eyes: Pupils equal, round and reactive to light. Eyes normal inspection.ENT: Ears normal. Nose normal. Pharynx normal. (voice is clear).Neck: Normal inspection. Neck supple. 3 Clinical Report - Physicians/Mid Levels [facility] Emergency Department [address] [place] [address] Phone #: ext- [phone] 02/03/2020 00:33 Patient: CASSIDY VARGHESE Sex: M [...] me.Laboratory Tests: BNP: (MIKE: 02/03/2020 01:20) ( [facility] 02/03/2020 02:17) Final resul ts Test Result Flag Units (Reference) BNP 6626 H PG/ML (0 - 450) Troponin-T: (MIKE: 02/03/2020 01:20) ( [facility] 02/03/2020 02:17) Final results Test Result Flag Units (Reference) TROPONIN T 0.09 NG/ML (0.00 - 0.10) TROPONIN T0.1 ng/ml Recommended as the clinical threshold value forTroponin T. CMP: (MIKE: 02/03/2020 01:20) ( [facility] 02/03/2020 02:17) Final results Test Result Flag [...] AGE 79 yrs 4 Clinical Report - Physicians/[facility] Emergency Department [address] [place] [address] Phone #: ext- [phone] 02/03/2020 00:33 Patient: [...] patient. 5 Clinical Report - Physicians/Mid Levels [facility] Emergency Department [address] [place] [address] Phone #: ext- [phone] 02/03/2020 00:33 Patient: CASSIDY VARGHESE Sex: M : 1940 Age: 79y Disposition: [...] Code Description Data Kevin e(s) Supporting Document(s) ID Date Data Source [id number] 02/03/2020 01:57:00 AM [facility] Name Value Range Interpretation Code Description Data Kevin rce(s) Supporting Document(s) TROPONIN T 0.09 NG/ML 0.00 - 0.10 [facility] spital TROPONIN T0.1 ng/ml Recommended as the c linical threshold value forTroponin T. ID Date Data Source [id number] 02/03/2020 01:52:00 AM [facility] Name Value Range Interpretation Code Description Data [facility](s) Supporting Document(s) COMPREHENSIVE METABOLIC PANEL [facility] COMPREHENSIVE METABOLIC PANEL Sodium [Moles/volume] in Serum or Plasma 131 mEq/L 134 - 153 L [facility] Potassium [Moles/volume] in Serum or Plasma 4.1 mEq/L 3.6 - 5.0 [facility] Chloride [Moles/volume] in Serum or Plasma 90 mEq/L 98 - 107 L [facility] Carbon dioxide, total [Moles/volume] in Serum or Plasma 24 MEQ/L 22 - 30 [facility] Glucose [Mass/volume] in Serum or Plasma 105 MG/DL 65 - 110 [facility] BUN 35 MG/DL 7 - 21 H [facility] Creatinine [Mass/volume] in Serum or Plasma 9.9 MG/DL 0.7 - 1.5 HH [facility] VERIFIED BY REPEAT CALL/ READ BACK CALLED TO DR SHERMAN [facility] BY: SIOBHAN [facility] DATE/TIME 02-03-20 [facility] pital BUN/CREAT 4 8 - 27 L [facility] Protein [Mass/volume] in Serum or Plasma 5.8 G/DL 6.3 - 8.2 L [facility] Albumin [Mass/volume] in Serum or Plasma 3.0 G/DL 3.9 - 5.0 L [facility] Globulin [Mass/volume] in Serum by calculation 2.8 GM/DL 2.4 - 3.2 [facility] A/G RATIO 1.1 0.8 - 2.0 [facility] Calcium [Mass/volume] in Serum or Plasma 9.3 MG/DL 8.4 - 10.2 [facility] Bilirubin.total [Mass/volume] in Serum or Plasma <0.7 MG/DL 0.2 - 1.3 [facility] Alkaline phosphatase [Enzymatic activity/volume] in Serum or Plasma 96 U/L 38 - 126 [facility] Aspartate aminotransferase [Enzymatic activity/volume] in Serum or Plasma 18 U/L 5 - 40 [facility] Alanine aminotransferase [Enzymatic activity/volume] in Seru m or Plasma 18 U/L 7 - 56 [facility] Anion gap 3 in Serum or Plasma 17.0 mmol/L 8.0 - 16.0 H [facility] AGE 79 yrs [facility] NON-AA G[facility] AMER GFR 7 mL/min [facility] Male GFR In terprentation 20-49 [...] >32 mL/min Normal ID Date Data Source [id number] 02/03/2020 01:52:00 AM [facility] Name Value Range Interpretation Code Description Data Kevin rce(s) Supporting Document(s) BNP 6626 PG/ML 0 - 450 H [facility] ID Date Data Source [id number] 02/03/2020 01:29:00 AM [facility] Name Value Range Interpretation Code Description Data Kevin rce(s) Supporting Document(s) CBC W/AUTOMATED DIFF [facility] COMPLETE BLOOD COUNT Leukocytes [#/volume] in Blood by Automated count 8.1 10^3/uL 4.2 - 1 1.0 [facility] Erythrocytes [#/volume] in Blood by Automated count 2.74 10^6/uL 4. 50 - 6.30 L [facility] Hemoglobin [Mass/volume] in Blood 8.5 g/dL 14.0 - 16.0 L [facility] Hematocrit [Volume Fraction] of Blood by Automated count 25.0 % 4 1.0 - 51.0 L [facility] Erythrocyte mean corpuscular volume [Entitic volume] by Auto mated count 91.2 fL 80.0 - 94.0 [facility] Erythrocyte mean corpuscular hemoglobin [Entitic mass] by Automated count 31.0 pg 27.0 - 34.0 [facility] Erythrocyte mean corpuscular hemoglobin concentration [Mass/volume] by Automated count 34.0 g/dL 31.0 - 36.0 [facility] Erythrocyte distribution width [Ratio] by Automated count 15.6 % 11.5 - 14.8 H [facility] Platelets [#/volume] in Blood by Automated count 193 10^3/uL 150 - 45 0 [facility] Platelet mean volume [Entitic volume] in Blood by Automated count 9.9 fL 7.4 - 10.4 [facility] Neutrophils/100 leukocytes in Blood by Automated count 38.1 % 37. 0 - 80.0 [facility] Lymphocytes/100 leukocytes in Blood by Manual count 30.3 % 25.0 - 40.0 [facility] Monocytes/100 leukocytes in Blood by Automated count 7.5 % 3.0 - 8.0 [facility] Eosinophils/100 leukocytes in Blood by Automated count 23.4 % 0.0 - 7.0 H [facility] Basophils/100 leukocytes in Blood by Automated count 0.5 % 0.0 - 2.0 [facility] %IG 0.2 % 0.0 - 0.0 H [facility] %NRBC 0.0 % 0.0 - 0.0 [facility] Neutrophils [#/volume] in Blood by Automated count 3.08 10^3/uL 2.00 - 6.90 [facility] Lymphocytes [#/volume] in Blood by Automated count 2.46 10^3/uL 0.60 - 3.40 [facility] Monocytes [#/volume] in Blood by Automated count 0.61 10^3/uL 0.00 - 0.90 [facility] Eosinophils [#/volume] in Blood by Automated count 1.90 10^3/uL 0.00 - 0.70 H [facility] Basophils [#/volume] in Blood by Automated count 0.04 10^3/uL 0.00 - 0.20 [facility] #IG 0.02 10^3/uL 0.00 - 0.10 [facility] ospital #NRBC 0.00 10^3/uL 0.00 - 0.00 [facility] ospital MANUAL DIFF NOT INDICATED [facility] RBC MORPH NOT INDICATED [facility] ID Date Data Source [id number] 09/14/2019 11:17:00 AM EDT [facility] ([facility]) Name Value Range Interpretation Code Description Data Kevin rce(s) Supporting Document(s) Blood Urea Nitrogen 33 mg/dL 7-18 Above high normal [facility] Glucose, Fasting 99 mg/dL 70-100 Normal (applies to non-numeric results) [facility] ([facility]) Glomerular Filtration Rate 6.6 Below low normal [facility] ([facility]) <content>Units are mL/min/1.73 m2</content>
<content></content>
<content>Chronic Kidney Disease Staging per NKF:</content>
<content></content>
<content>Stage I & II GFR >=60 Normal to Mildly Decreased</content>
<content>Stage III GFR 30- 59 Moderately Decreased</content>
<content>Stage IV GFR 15-29 Severely Decreased</content>
<content>Stage V GFR <15 Very Little GFR Left</content>
<content>ESRD GFR <15 on MANUFACTURING SPECIALIST</content>
<content></content> Creatinine For GFR 9.94 mg/dL 0.70-1.30 Above upper panic limits [facility] ([facility]) Potassium Serum 3.5 meq/L 3.5-5.1 Normal (applies to non-numeric results) [facility] ([facility]) Chloride Level 95 meq/L 98-107 Below low normal [facility] ([facility]) Sodium Level 133 meq/L 136-145 Below low normal [facility] ([facility]) Carbon Dioxide Level 26 meq/L 21-32 Normal (applies to non-num romel results) [facility] ([facility]) Anion Gap 12 meq/L 8-16 Normal (applies to non-numeric resul ts) [facility] ([facility]) Calcium Level 9.1 mg/dL 8.8-10.2 Normal (applies to non-numeric re sults) [facility] ([facility]) ID Date Data Source [id number] 09/14/2019 11:17:00 AM EDT [facility] ([facility]) Name Value Range Interpretation Code Description Data Kevin rce(s) Supporting Document(s) Blood Type Laboratory test result Normal (applies to non-n umeric results) [facility]) Blood group antibody screen [Presence] in Serum or Wendie sma Laboratory test result Normal (applies to non-numeric results) [facility]) ID Date Data Source [id number] 09/14/2019 11:17:00 AM EDT [facility]) Name Value Range Interpretation Code Description Data Kevin rce(s) Supporting Document(s) Prothrombin Time 14.2 s 11.8-14.0 Above high normal [facility]) Inr 1.13 Normal (applies to non-numeric resul ts) [facility]) THERAPUTIC HUMAN INR VALUES INDICATIONS NORMAL RANGES PROPHYLAXIS/TREATMENT OF: VENOUS THROMBOSIS 2.0-3.0 PULMONARY EMBOLISM 2.0-3.0 PREVENTION OF SYSTEMIC EMBOLISM FROM: TISSUE HEART VALVES 2.0-3.0 ACUTE MYOCARDIAL INFARCTION 2.0-3.0 VALVULAR HEART DISEASE 2.0-3.0 ATRIAL FIBRILLATION 2.0-3.0 MECHANICAL VALVES(HIGH RISK) 2.5-3.5 RECURRENT MYOCARDIAL INFARCTION 2.5-3.5 Partial Thromboplastin Time 38.5 s 25.0-38.4 Above high normal [facility]) ID Date Data Source [id number] 09/14/2019 11:17:00 AM EDT [facility] ([facility]) Name Value Range Interpretation Code Description Data Kevin rce(s) Supporting Document(s) White Blood Count 8.9 10 4.0-10.0 Normal (applies to non-numeri c results) [facility]) Red Blood Count 3.62 10 4.30-6.10 Below low normal [facility]) Hematocrit 34.2 % 42.0-52.0 Below low normal [facility] ( [facility]) Hemoglobin 11.7 g/dL 13.5-17.[address] [facility]) Mean Corpuscular Hemoglobin 32.3 pg 27.0-33.0 Norm al (applies to non-numeric results) [facility]) Mean Corpuscular Volume 94.5 fl 80.0-96.0 Normal ( applies to non-numeric results) [facility] ([facility]) Mean Corpuscular HGB Conc 34.2 g/dL 32.0-36.5 Normal (applies to non-numeric results) [facility] ([facility]) Red Cell Distribution Width 15.4 % 11.5-14.5 Above high normal [facility] ([facility]) Nucleated Red Blood Cell % 0.0 % 0-0 Normal (applies to n on-numeric results) [facility] ([facility]) Platelet Count, Automated 304 10 150-450 Normal (applies to non-numeric results) [facility] ([facility]) ID Date Data Source [id number] 09/11/2019 11:00:00 AM EDT [facility] Name Value Range Interpretation Code Description Data Kevin rce(s) Supporting Document(s) SARS CORONAVIRUS 2 RNA [facility] This lab was ordered by [facility] and reported by [facility]. ID Date Data Source [id number] 09/05/2019 09:00:00 AM EDT [facility] ([facility]) Name Value Range Interpretation Code Description Data Kevin rce(s) Supporting Document(s) Glucose, Fasting 109 mg/dL 70-100 Above high normal [facility] Creatinine For GFR 9.61 mg/dL 0.70-1.30 Above upper panic limits [facility] ([facility]) Blood Urea Nitrogen 33 mg/dL 7-18 Above high normal [facility] ([facility]) Glomerular Filtration Rate 5.7 Below low normal [facility] ([facility]) <content>Units are mL/min/1.73 m2</content>
<content></content>
<content>Chronic Kidney Disease Staging per NKF:</content>
<content></content>
<content>Stage I & II GFR >=60 Normal to Mildly Decreased</content>
<content>Stage III GFR 30- 59 Moderately Decreased</content>
<content>Stage IV GFR 15-29 Severely Decreased</content>
<content>Stage V GFR <15 Very Little GFR Left</content>
<content>ESRD GFR <15 on MANUFACTURING SPECIALIST</content>
<content></content> Sodium Level 134 meq/L 136-145 Below low normal [facility] ([facility]) Chloride Level 94 meq/L 98-107 Below low normal [facility] ([facility]) Potassium Serum 3.5 meq/L 3.5-5.1 Normal (applies to non-numeric results) [facility] ([facility]) Carbon Dioxide Level 29 meq/L 21-32 Normal (applies to non-num romel results) [facility] ([facility]) Anion Gap 11 meq/L 8-16 Normal (applies to non-numeric resul ts) [facility] ([facility]) Calcium Level 9.3 mg/dL 8.8-10.2 Normal (applies to non-numeric re sults) [facility] ([facility]) ID Date Data Source [id number] 09/05/2019 09:00:00 AM EDT [facility] ([facility]) Name Value Range Interpretation Code Description Data Kevin rce(s) Supporting Document(s) White Blood Count 9.2 10 4.0-10.0 Normal (applies to non-numeri c results) [facility] ([facility]) Red Blood Count 3.57 10 4.30-6.10 Below low normal [facility] ([facility]) Mean Corpuscular Volume 94.7 fl 80.0-96.0 Normal ( applies to non-numeric results) [facility] ([facility]) Hematocrit 33.8 % 42.0-52.0 Below low normal [facility] ( [facility]) Hemoglobin 11.4 g/dL 13.5-17.5 Below low normal [facility] ( [facility]) Mean Corpuscular HGB Conc 33.7 g/dL 32.0-36.5 Normal (applies to non-numeric results) [facility]) Red Cell Distribution Width 16.3 % 11.5-14.5 Above high normal [facility] ([facility]) Mean Corpuscular Hemoglobin 31.9 pg 27.0-33.0 Norm al (applies to non-numeric results) [facility]) Platelet Count, Automated 253 10 150-450 Normal (applies to non-numeric results) [facility] ([facility]) Nucleated Red Blood Cell % 0.0 % 0-0 Normal (applies to n on-numeric results) [facility] ([facility]) ID Date Data Source [id number] 08/16/2019 03:50:00 PM EDT [facility] ([facility]) Name Value Range Interpretation Code Description Data Kevin rce(s) Supporting Document(s) Iron 101 [facility] ([facility]) Iron binding capacity [Mass/volume] in Serum or Plasma 229 [facility] ([facility]) Tibc % Saturation 44 [facility] ID Date Data Source [id number] 08/16/2019 03:50:00 PM EDT [facility] ([facility]) Name Value Range Interpretation Code Description Data Kevin rce(s) Supporting Document(s) Albumin [Mass/volume] in Serum or Plasma 3.6 [facility] ([facility]) Alanine aminotransferase [Enzymatic activity/volume] i n Serum or Plasma Laboratory test result [facility] ([facility]) Carbon dioxide, total [Moles/volume] in Serum or Plasma 27 [facility] ([facility]) Calcium [Mass/volume] in Serum or Plasma 10.7 [facility] ([facility]) Chloride [Moles/volume] in Serum or Plasma 92 [facility] ([facility]) Protein [Mass/volume] in Serum or Plasma 6.3 [facility] ([facility]) Potassium [Moles/volume] in Serum or Plasma 3.0 [facility] ([facility]) Alkaline phosphatase [Enzymatic activity/volume] in Se rum or Plasma Laboratory test result [facility] ([facility]) Urea nitrogen [Mass/volume] in Serum or Plasma 32 [facility] ([facility]) Sodium 136 [facility] ([facility]) Glucose Laboratory test result [facility] ([facility]) Aspartate aminotransferase [Enzymatic activity/volume] in Serum or Plasma Laboratory test result [facility] ([facility]) Creatinine For GFR 9.48 [facility] ([facility]) ID Date Data Source [id number] 08/16/2019 03:50:00 PM EDT [facility] Name Value Range Interpretation Code Description Data Kevin rce(s) Supporting Document(s) White Blood Count 8.97 [facility] ([facility]) Hemoglobin 11.8 [facility] ([facility]) Red Blood Count 3.78 [facility] ([facility]) Platelets 263 [facility] Hematocrit 36.2 [facility] ([facility]) ID Date Data Source [id number] 08/08/2019 11:09:00 AM EDT [facility] Name Value Range Interpretation Code Description Data Kevin rce(s) Supporting Document(s) Hemoglobin A1c/Hemoglobin.total in Blood 7.1 [facility] ([facility]) ID Date Data Source [id number] 07/31/2019 11:08:00 AM EDT [facility]) Name Value Range Interpretation Code Description Data Kevin rce(s) Supporting Document(s) Magnesium Level 2.0 1.8-2.4 [facility] ([facility]) ID Date Data Source [id number] 07/31/2019 11:08:00 AM EDT [facility] Name Value Range Interpretation Code Description Data Kevin rce(s) Supporting Document(s) White Blood Count 10.7 4.0-10.0 [facility] ([facility]) Hemoglobin 9.5 [facility] ([facility]) Red Blood Count 2.98 4.30-6.10 [facility] ([facility]) Platelets 253 150-450 [facility] ([facility]) Hematocrit 27.5 [facility] ([facility]) ID Date Data Source [id number] 07/31/2019 11:08:00 AM EDT [facility]) Name Value Range Interpretation Code Description Data Kevin rce(s) Supporting Document(s) Glucose 123 70-100 [facility] ([facility]) Blood Urea Nitrogen 41 7-18 [facility] (Ca [facility]ology [facility]) Sodium 138 136-145 [facility] ([facility]) Creatinine 9.88 0.70-1.30 [facility] ([facility]) Potassium 4.5 3.5-5.1 [facility] ([facility]) Chloride 102 98-107 [facility] ([facility]) Carbon Dioxide 26 21-32 [facility] ([facility]iol [facility]gy [facility]) Calcium 9.6 8.8-10.2 [facility] ([facility]) Glomerular filtration rate/1.73 sq M.pre dicted [Volume Rate/Area] in Serum or Plasma by Creatinine-based formula (MDRD) 5.5 [facility] ([facility]) ID Date Data Source [id number] 07/30/2019 11:39:00 [place] [address] PHONE: [phone] FAX: [phone] Name .................. : ABIMAEL Fair Acct Number.................. : [id number] ROOM. ................. : TR-08 Number ................... : [id number] Stay type ............. : E/R Discharge Date......... ... : 07/26/19 Admit Date ....... .. : 07/26/19 Admit Phys .................... : ELIDA DE OLIVEIRA Date of ....... : 1940 Family Phys ................... : UNKNOWN Phone .................. : [phone] Age ................................ : 79 Film# .................. .:[id number] Sex ................................. : M Unsigned transcriptions are preliminary reports and do not represent a medical or legal document CT ABD & PELV W/O ORAL W/[place] [id number] COMPLETE:07/26/19 17:42 [place] [id number] Reason(s): Abdominal Distention CT ABDOMEN/PELVIS WITHOUT CONTRAST, [...] imperative reconstructive techniques. Page 1 of [address] [place] [address] PHONE: [phone] FAX: [phone] Name .................. : ABIMAEL Fair Acct Number.................. : [id number] ROOM. ................. : TR-08 Number ................... : [id number] Stay type ............. : E/R Discharge Date......... ... : 07/26/19 Admit Date ......... : 07/26/19 Admit Phys .................... : ELIDA DE OLIVEIRA Date of ....... : 1940 Family Phys ................... : UNKNOWN Phone .................. : [phone] Age ................................ : 79 Film# .................. .:[id number] Sex ................................. : M Unsigned transcriptions are preliminary reports and do not represent a medical or legal document CT ABD & PELV W/[place] ORAL W/[place] [id number] COMPLETE:07/26/19 17:42 [place] [id number] Reason(s): Abdominal Distention CT dose 854.4 mGycm. Electronically Reviewed and Signed By Agapito Alvarez MD , 07/30/19 11:39, TDS Transcribe Initials: SSR, Transcribe Date: 07/27/19 07:43, Dictation Date: Copy for: EMERGENCY DEPT via modem Copy for: 710 MED REC DISCHARGED Page 2 of 2 Name Value Range Interpretation Code Description Data Kevin rce(s) Supporting Document(s) ID Date Data Source [id number] 07/30/2019 11:39:00 AM EDT [facility] [address] [place] [address] PHONE: [phone] FAX: [phone] Name .................. : ABIMAEL BENJAMIN Manjula Acct Number.................. : [id number] ROOM. ................. : TR-08 Number ................... : [id number] Stay type ............. : E/R Discharge Date......... ... : 07/26/19 Admit Date ....... .. : 07/26/19 Admit Phys .................... : ELIDA DE OLIVEIRA Date of ....... : 1940 Family Phys ................... : UNKNOWN Phone .................. : [phone] Age ................................ : 79 Film# .................. .:[id number] Sex ................................. : M Unsigned transcriptions are preliminary reports and do not represent a medical or legal document CT THORAX W/O CONTRAST [id number] COMPLETE:07/26/19 17:42 [place] [id number] Reason(s): Shortness of Breath CT CHEST WITHOUT [...] dose 854.4 mGycm. Page 1 of 2 [facility] [address] [place] [address] PHONE: [phone] FAX: [phone] Name .................. : ABIMAEL Fair Acct Number.................. : [id number] ROOM. ................. : TR-08 Number ................... : [id number] Stay type ............. : E/R Discharge Date......... ... : 07/26/19 Admit Date ......... : 07/26/19 Admit Phys .................... : ELIDA DE OLIVEIRA Date of ....... : 1940 Family Phys ................... : UNKNOWN Phone .................. : [phone] Age ................................ : 79 Film# .................. .:[id number] Sex ................................. : M Unsigned transcriptions are preliminary reports and do not represent a medical or legal document CT THORAX W/O CONTRAST [id number] COMPLETE:07/26/19 17:42 EB [id number] Reason(s): Shortness of Breath Electronically Reviewed and Signed By Agapito Alvarez MD , 07/30/19 11:39, TDS Transcribe Initials: SSR, Transcribe Date: 07/27/19 07:32, Dictation Date: Copy for: EMERGENCY DEPT via modem Copy for: 710 MED REC DISCHARGED Page 2 of 2 Name Value Range Interpretation Code Description Data Kevin rce(s) Supporting Document(s) ID Date Data Source [id number] 07/30/2019 11:39:00 AM EDT [facility] [address] [place] [address] PHONE: [phone] FAX: [phone] Name .................. : ABIMAEL Fair Acct Number.................. : [id number] ROOM. ................. : [facility] Number ................... : [id number] Stay type ............. : E/R Discharge Date......... ... : 07/26/19 Admit Date ....... .. : 07/26/19 Admit Phys .................... : ELIDA DE OLIVEIRA Date of ....... : 1940 Family Phys ................... : UNKNOWN Phone .................. : [phone] Age ................................ : 79 Film# .................. .:[id number] Sex ................................. : M Unsigned transcriptions are preliminary reports and do not represent a medical or legal document CT HEAD W/O CONTRAST [id number] COMPLETE:07/26/19 17:42 EB [id number] Reason(s): Altered Mental Status CT HEAD WITHOUT [...] Dictation Date: Copy for: EMERGENCY DEPT via [place] Copy for: 710 MED REC Page 1 of 2 [place] [address] PHONE: [phone] FAX: [phone] Name .................. : ABIMAEL Fair Acct Number.................. : [id number] ROOM. ................. : TR-08 Number ................... : [id number] Stay type ............. : E/R Discharge Date......... ... : 07/26/19 Admit Date ......... : 07/26/19 Admit Phys .................... : ELIDA DE OLIVEIRA Date of ....... : 1940 Family Phys ................... : UNKNOWN Phone .................. : [phone] Age ................................ : 79 Film# .................. .:[id number] Sex ................................. : M Unsigned transcriptions are preliminary reports and do not represent a medical or legal document CT HEAD W/O CONTRAST 14546 COMPLETE:07/26/19 17:42 EB 69666 Reason(s): Altered Mental Status DISCHARGED Page 2 of 2 Name Value Range Interpretation Code Description Data Kevin rce(s) Supporting Document(s) ID Date Data Source [id number] 07/30/2019 11:37:00 [place] [address] PHONE: [phone] FAX: [phone] Name .................. : ABIMAEL Fair Acct Number.................. : [id number] ROOM. ................. : TR-08 Number ................... : [id number] Stay type ............. : E/R Discharge Date......... ... : Admit Date ......... : 07/26/19 Admit Phys .................... : ELIDA DE OLIVEIRA Date of ....... : 1940 Family Phys ................... : UNKNOWN Phone .................. : [phone] Age ................................ : 79 Film# .................. .:[id number] Sex ................................. : M Unsigned transcriptions are preliminary reports and do not represent a medical or legal document CHEST PORTABLE [id number] COMPLETE:07/26/19 12:35 SRG 54356 Reason(s): Shortness of Breath SINGLE VIEW OF [...] rce(s) Supporting Document(s) ID Date Data Source [id number] 07/27/2019 12:56:00 PM EDT [address] [address] RESPIRATORY CARE REPORT ==== ---------NAME------- NUMBER SEX AGE ADMIT DISC. XRAY# F/C ANDRAE Fair [id number] M 79 07/26/19 07/26/19 [id number] MB4 E/R DATE OF : 1940 M/R# [id number] #: [id number] TR-08 LOCATION: EMERGENCY DEPT EKG 89726 COMPLE TE:07/26/19 21:33 [place] [id number] PHYSICIAN: ELIDA DE OLIVEIRA Name Value Range Interpretation Code Description Data Kevin rce(s) Supporting Document(s) ID Date Data Source [id number] 07/26/2019 10:28:00 AM EDT [facility] 1 OrderSheet [facility] [address] [place] [address] Phone #: umn- [phone] 07/26/2019 10:24 Patient: CASSIDY VARGHESE Sex: M : 1940 Age: 79yWEIGHT:66.6 kg HEIGHT:66 inches BMI:23.7ALLERGIES: Amlodipine, Hydralazine, Indocin, Minoxidil, Mircera, NorvascCHIEF COMPLAINT: dyspneaDIAGNOSIS: Problem, Systemic infection, Acute myocardial infarction, Hypokalemia, Renal failure syndromeLAB ORDERSOrder Description Priority Entered Acknowledged InitialedABG STAT 10:36 07/26/2019 Initialed: 10:45 Omar Estevez R.N. Cancelled: Physician Order 20:11 Merritt Marrero PhysicianUrinalysis (Clean STAT 10:36 07/26/2019 Initialed: 10:45 Omar Estevez R.N.Catch) Merritt Marrero Cancelled: Physician Order 20:11 Merritt Saleh; Elida PhysicianTroponin-T STAT 10:36 07/26/2019 10:45 Merritt Estevez R.N. Physician;BNP STAT 10:36 07/26/2019 10:45 Merritt Estevez R.N. Physician;Blood Culture STAT 10:36 07/26/2019 10:45 Herb,q10m X2 (Sched Merritt Conde R.N.10:36 07/26/2019) Physician;Blood Culture STAT 10:36 07/26/2019 12:00 Oqvyhnln66y X2 (Sched Merritt Marrero ict support technicians, [place] [facility]10:46 07/26/2019) Physician; Fmnr7NPS STAT 10:36 07/26/2019 10:45 Merritt Estevez R.N. Physician;CBC w Diff STAT 10:36 07/26/2019 10:45 Merritt Estevez R.N. Physician;CPK STAT 10:36 07/26/2019 10:45 Merritt Estevez R.N. Physician;D-Dimer STAT 10:36 07/26/2019 10:45 Merritt Estevez R.N. Physician;Lactic Acid STAT 10:36 07/26/2019 10:45 Bev Estevez OrderSheet [facility] [address] [place] [address] Phone #: ext- [phone] 07/26/2019 10:24 Patient: CASSIDY VARGHESE Sex: M : 1940 Age: 79y Merritt Conde R.N. Physician;Lipase STAT 10:36 07/26/2019 10:45 Merritt Estevez R.N. Physician;PTT STAT 10:36 07/26/2019 10:45 Merritt Estevez R.N. Physician;PT/INR STAT 10:36 07/26/2019 10:45 Merritt Estevez R.N. Physician;DIAGNOSTIC STUDY ORDERSOrder Description Priority Entered Acknowledged InitialedChest Portable 1 STAT 10:36 07/26/2019 10:45 Kyung Estevez (Oxygen? Merritt Conde R.NBriana(Yes)) Physician; NOTES: Hypoxia Reason for Study: Shortness of BreathCT ABD PEL W/O STAT 13:14 07/26/2019 13:24 Herb,Oral W/O IV Merritt Conde ROneidaContrast Physician;(Oxygen?(No ))(IV?(Yes)) NOTES: Lipase elevated / Does CAPD Reason for Study: Abdominal DistentionCT Chest W/O Cont STAT 13:16 07/26/2019 13:24 Herb,(Oxygen?(No)) Merritt Conde R.NBriana Physician; NOTES: Hypoxia Reason for Study: Shortness of BreathCT Head W/O Cont STAT 13:16 07/26/2019 13:24 Herb,(Oxygen?(No)) Merritt Conde R.N. Physician; Reason for Study: Altered Mental StatusMEDICATION/IV/DRIP/FLUID ORDERSOrder Description Priority Entered Acknowledged InitialedNS IV : Bolus 500 10:40 07/26/2019 11:06 Bobby Estevez, then 125 mL/hr Merritt Conde RBrianaN.(can be titrated per Physician;additionalphysician 3 OrderSheet [facility] [address] [place] [address] Phone #: ext- [phone] 07/26/2019 10:24 Patient: CASSIDY VARGHESE Sex: M : 1940 Age: 79yinstruction)NS IV 1000 mL 13:24 07/26/2019 13:26 Herb,Bolus: : Bolus 1000 Merritt Garzas Omar R.N.mL (X1) Physician;GENERAL ORDERSOrder Description Priority Entered Acknowledged InitialedCardiac Monitor 10:39 07/26/2019 10:44 Stephen(continuous) Merritt Marrero ict support techniciansChacho Friend ER Physician; [id number] 10:39 07/26/2019 10:44 Stephen Lopezlilia ict support techniciansChacho ER Physician; Imdp7Elbwl oximeter 10:39 07/26/2019 10:44 Stephen(Continuous) Merritt Marrero ict support techniciansChacho ER Physician; [id number] Lock 10:39 07/26/2019 10:45 Merritt Estevez R.N. Physician;Transfer: (Transfer 14:57 07/26/2019 15:03 Herb,to [facility] by Merritt Conde R.N.ambulance as per Physician;Dr. Cabrera(Acceptinghospitalist) - 13: )[Electronically signed by Merritt Marrero (07:40 07/27/2019)][Electronically signed by Garo Suárez R.N. (12:51 07/27/2019)][Electronically locked by Garo Suárez R.N. (12:51 07/27/2019)] Name Value Range Interpretation Code Description Data Kevin rce(s) Supporting Document(s) ID Date Data Source [id number] 07/26/2019 10:28:00 AM EDT [facility] 1 Medication Reconciliation Report [facility] [address] [place] [address] Phone #: ext- [phone] 07/26/2019 10:24 Patient: CASSIDY VARGHESE Sex: M : 1940 Age: 79yWeight: 66.6 kgHeight/Length: 66 in.BMI: 23.7ALLERGIES: Amlodipine, Hydralazine, Indocin, Minoxidil, Mircera, NorvascThe patient's Home Medications are listed below:THE FOLLOWING MEDICATIONS NEED TO BE RECONCILED: Albuterol Sulfate Inhalation Allopurinol Oral (100 mg) 1 tablet, daily, prn Aspir-81 Oral, daily Calcium Acetate Oral 667 mg, 3x a day Epogen Injection (54907 unit/mL), once a week Heparin Sodium (Porcine) [...] 3x a day 2 Medication Reconciliation Report [facility] [address] [place] [address] Phone #: ext- [phone] 07/26/2019 10:24 Patient: [...] rce(s) Supporting Document(s) ID Date Data Source [id number] 07/26/2019 10:28:00 AM EDT [facility] 1 Medication Administration Record [facility] [address] [place] [address] Phone #: ext- [phone] 07/26/2019 10:24 Patient: CASSIDY VARGHESE Sex: M : 1940 Age: 79yWeight: 66.6 kgHeight/Length: 66 inBMI: 23.7ALLERGIES: Amlodipine, Hydralazine, Indocin, Minoxidil, Mircera, Norvasc Date/Time Medication Administered Medication OrderedStart NS [IV] NS IV : Bolus 500 mL, then 89097:00 07/26/2019 Dose: IV Fluids mL/hr (can be titrated Omar Duncan R.N. Rate: 125 mL/hr over 6 hour(s) additional physician instruction)---- Bolus: 500 mL wide openStop Dispensed: 1000 mL bag13:25 07/26/2019 Site: #1 right handOmar Estevez R.N.Start NS [IV] NS IV 1000 mL Bolus: : Bolus 671889:26 07/26/2019 Dose: IV Fluids mL (X1)Omar Estevez R.N. Bolus: 1000 mL wide open---- Site: #1 right doawDhqe21:03 07/26/2019Omar Estevez R.N. Name Value Range Interpretation Code Description Data Kevin rce(s) Supporting Document(s) ID Date Data Source [id number] 07/26/2019 10:28:00 AM EDT [facility] 1 General Instructions [facility] [address] [place] [address] Phone #: ext- [phone] 07/26/2019 10:24 Patient: CASSIDY VARGHESE Sex: M : 1940 Age: 79ySevere sepsis [...] as advised byour staff. 2 General Instructions [facility] [address] [place] [address] Phone #: ext- [phone] 07/26/2019 10:24 Patient: CASSIDY VARGHESE Sex: M : 1940 Age: 79yWhen to seek medical adviceCall your healthcare provider right away if any of the following occur: Increased weakness, fatigue, or muscle cramps DizzinessCall 911Call 911 if any of the following occur: Irregular heartbeat, extra beats, or very fast heart rate Loss of consciousness [phone] [email or web address]. [address] [place] [address]. All rights reserved. This information is not intended as asubstitute for professional medical care. Always follow your healthcare professional's instructions. You have been given the following additional information: Hypokalemia(Electronically signed by Merritt Marrero, Physician 07/27/2019 07:40) Name Value Range Interpretation Code Description Data Kevin rce(s) Supporting Document(s) ID Date Data Source [id number] 07/26/2019 10:28:00 AM EDT [facility] 1 Clinical Report - Nurses [facility] [address] [place] [address] Phone #: ext- [phone] 07/26/2019 10:24 Patient: [...] mg, 3x a day. Epogen Injection (Solution 44401 unit/mL), once a week. Heparin Sodium (Porcine) [...] Estevez R.N. 2 Clinical Report - Nurses [facility] [address] [place] [address] Phone #: ext- [phone] 07/26/2019 10:24 Patient: [...] The functional assessment was deferred due to pa tient condition. LEARNING NEEDS ASSESSMENT: The learning needs assessment was deferred due to the patient's condition. SKIN INTEGRITY ASSESSMENT: Skin integrity risk assessment was performed. Risk factors identified include restricted mobility and altered level of consciousness. --10:39 07/26/19 Omar Estevez R.N. Interventions Identification band on patient. To treatment room. --10:39 07/26/19 Omar Estevez R.N.PHYSICAL XOSENARZLV63:32 07/26/19. To room via stretcher. Patient gowned.GENERAL [...] Normal skin turgor. --10:43 07/26/19 Garo Suárez REvens.NURSING PROGRESS NOTESOxygen administered. Monitoring of patient in place. Patient gowned. Three patient identifiers checked.Call light placed in reach. Side rails up x 2. Bed placed in lowest position. --10:39 07/26/19 Omar Estevez R.N. monitor and storage bin tender, pulse oximeter and NIBP monitor placed on patient; monitor alarms on. EKG time: (late entry - 10:28 07/26/2019). EKG was performed by a tech and shown to the ED physician. --10:44 3 Clinical Report - Nurses [facility] [address] [place] [address] Phone #: ext- [phone] 07/26/2019 10:24 Patient: CASSIDY VARGHESE Sex: M : 1940 Age: 79y07/26/19 [facility] TechChacho ER Vbjp216:00 07/26/2019 Site #1 started prior to arrival [...] R.N.Patient transported to CT by stretcher with radiology director. Patient returned from CT by stretcherwith radiology director. --13:55 07/26/19 Yevgeniy Mcnamara RN15:03 07/26/2019 IV Fluids NS via IV site #1 Discontinued: completed. Total amount infused: 1000 mL. IVpatency established. IV site checked: no pain, redness, or swelling. IV flushed thoroughly. --15:03 07/26/19Omar Estevez R.N. 4 Clinical Report - Nurses [facility] [address] [place] [address] Phone #: ext- [phone] 07/26/2019 10:24 Patient: CASSIDY VARGHESE Sex: M [...] R.N. Departure time: 15:55 07/26/2019. Transferred to [facility]. Provided to EMS. --18:40 07/26/19 Yevgeniy Mcnamara RN 15:55 07/26/2019 Site #[address] upon transfer. Flushed. --18:41 07/26/19 Yevgeniy Mcnamara RN.Locked/Released at 07/27/2019 12:51 by Garo Suárez R.N. Name Value Range Interpretation Code Description Data Kevin rce(s) Supporting Document(s) ID Date Data Source [id number] 07/26/2019 10:28:00 AM EDT [facility] 1 Clinical Report - Physicians/Mid Levels [facility] [address] [place] [address] Phone #: ext- [phone] 07/26/2019 10:24 Patient: CASSIDY VARGHESE Sex: M [...] allergies. 2 Clinical Report - Physicians/Mid Levels [facility] [address] [place] [address] Phone #: ext- [phone] 07/26/2019 10:24 Patient: CASSIDY VARGHESE Sex: M [...] Room: ED Exam CT HEAD [place] [address] PHONE: [phone] FAX: [phone] Name .................. : ABIMAEL Fair Acct Number.................. : [id number] ROOM. ................. : TR-08 Number ................... : [id number] Stay type ............. : E/R Discharge Date......... ... : 07/26/19 Admit Date ......... : 07/26/19 Admit Phys .................... : ELIDA DE OLIVEIRA Date of ....... : 1940 Family Phys ................... : UNKNOWN Phone .................. : [phone] Age ................................ : 79 3 Clinical Report - Physicians/Mid Levels [facility] [address] [place] [address] Phone #: ext- [phone] 07/26/2019 10:24 Patient: CASSIDY VARGHESE Sex: M : 1940 Age: 79y Film# .................. .:[id number] Sex ................................. : M Unsigned transcriptions are preliminary reports and do not represent a medical or legal document CT HEAD W/O CONTRAST [id number] COMPLETE:07/26/19 17:42 [place] [address]60 Reason(s): Altered Mental Status CT HEAD WITHOUT [...] By DCTNAME , SIGNDATE, TDS Transcribe Initials: SUMMER, Transcribe Date: 07/27/19 07:28, Dictation Date: <<REPDIST>> [...] Catch 4 Clinical Report - Physicians/Mid Levels [facility] [address] [place] [address] Phone #: ext- [phone] 07/26/2019 10:24 Patient: CASSIDY VARGHESE Sex: M : 1940 Age: 79yTroponin-T: (MIKE: 07/26/2019 11:34) ( SdgRcvd 07/26/2019 12:16) Final results Test Result Flag Units (Reference) TROPONIN T 0.12 HH NG/ML (0.00 - 0.10) CALL/ READ BACK DR MARRERO BY: MAURA DATE/TIME 07/26/19 1215 TROPONIN T0.1 ng/ml Recommended as the clinical threshold value forTroponin T.BNP: (MIKE: 07/26/2019 11:34) ( SdgRcvd 07/26/2019 12:16) Final results Test Result Flag [...] Male GFR Interprentation 20-49 yrs >60 mL/min Kjpaxw81-45 yrs >56 mL/min Normal 60-69 yrs >49 mL/min Normal 70-79yrs>42 mL/min Normal 80 and above >35 mL/min Normal Female GFRInterpretation 20-39 yrs >60 mL/min Normal 40-49 yrs >58 mL/minNormal 50-59 yrs >51 mL/min Normal 60-69 yrs >45 mL/min Umrdte47-90 yrs >39 mL/min Normal 80 and above >32 mL/min NormalCBC w Diff: (MIKE: 07/26/2019 11:34) ( MsgRcvd 07/26/2019 11:50) Final results Test Result Flag Units * *(Reference) CBC W/AUTOMATED DIFF COMPLETE BLOOD COUNT WBC 9.4 10/uL (4.2 - 11.0) RBC 2.97 L 10/uL (4.50 - 6.30) HEMOGLOBIN 9.3 L g/dL (14.0 - 16.0) 5 Clinical Report - Physicians/Mid Levels [facility] [address] [place] [address] Phone #: ext- [phone] 07/26/2019 10:24 Patient: CASSIDY VARGHESE Sex: M [...] MORPH NOT INDICATEDCPK: (MIKE: 07/26/2019 11:34) ( MsgRcvd 07/26/2019 12:17) Final results Test Result Flag Units (Reference) CPK 460 H U/L (30 - 170)D-Dimer: (MIKE: 07/26/2019 11:54) ( [facility] 12:18) Final results Test Result Flag Units (Reference) D-DIMER QUANT 0.81 H ug/mL (0.27 - 0.50)Lactic Acid: (MIKE: 07/26/2019 11:34) ( [facility] 07/26/2019 11:51) Final results Test Result Flag Units (Reference) LACTIC ACID 4.4 HH MMOL/L (0.2 - 2.2) CALL/ READ BACK OMAR BY: MAURA DATE/TIME 07/26/19 1152Lipase: (MIKE: 07/26/2019 11:34) ( [facility] 07/26/[facility] 12:17) Final results Test Result Flag Units (Reference) LIPASE 140 H U/L (13 - 60)PTT: (MIKE: 07/26/2019 11:54) ( [facility] 07/26/2019 12:18) Final results Test Result Flag Units (Reference) PTT 42.6 H SECONDS (24.8 - 36.7)PT/INR: (MIKE: 07/26/2019 11:54) ( [facility] 07/26/2019 12:18) Final results Test Result Flag Units (Reference) PROTIME 14.3 SECONDS (11.0 - 15.5) INR 1.10 (0.93 - 1.23) \\BLDo\\INR INTERPRETATION\\BLDx\\ Therapeutic range for Coumadin andrelated oral anticoagulants. - International Normalized Ratio (INR): 2.0 - 3.0 for VenousThrombosis, Pulmonary Embolus, Tissue heart valves, Acute CT, Atrial Fibrillation, Valvular heartdisease and recurrent Systemic Embolism. - International Normalized Ratio (INR): 2.5 - 3.5for Mechanical Prosthetic valve. 6 Clinical Report - Physicians/Mid Levels [facility] [address] [place] [address] Phone #: ext- [phone] 07/26/2019 10:24 - Patient: CASSIDY VARGHESE Sex: M : 1940 Age: 79yChest Portable 1 View: (MIKE: 07/26/2019 10:36) ( MsgRcvd 07/26/2019 13:58) In ProgressCHEST PORTABLEReason(s): Shortness of BreathTRANSPORTATION: S IV? O2? Oxygen?(Yes) Room: E CMTS: Hypoxia [place] [address] PHONE: [phone] FAX: [phone] Name .................. : ABIMAEL Fair Acct Number.................. : [id number] ROOM. ................. : TR-08 MR Number ................... : [id number] Stay type ............. : E/R Discharge Date......... ... : Admit Date ......... : 07/26/19 Admit Phys .................... : ELIDA DE OLIVEIRA Date of ....... : 1940 Family Phys ................... : UNKNOWN Phone .................. : [phone] Age ............ .................... : 79 Film# .................. .:[id number] Sex ................................. : M Unsigned transcriptions are preliminary reports and do not represent a medical or legal document CHEST PORTABLE [id number] COMPLETE:07/26/19 12:35 SRG 00074 Reason(s): Shortness of Breath SINGLE VIEW OF [...] with aberrant conduction. 7 Clinical Report - Physicians/Mid Levels [facility] [address] [place] [address] Phone #: ext- [phone] 07/26/2019 10:24 Patient: CASSIDY VARGHESE Sex: M : 1940 Age: 79y Left axis deviation. Incomplete RBBB. Abnormal QRST angle, consider primary T-wave abnormality. See reports for CT head / CT chest / CT abdomen and pelvis).PROGRESS AND PROCEDURESCourse of Care: 11:Jul 26 2019. Patient is stable. Symptoms much better. 11:Jul 26 2019. 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 Once sat monitor moved to ear, sats approached 100% and O2 titrated. Respiratory therapists were unable to do ABG due to prior fistulae and lack of a palpable radial pulse. 13:24 Jul 26 2019. I just spoke with Dr. Cabrera (Hospitalist at [facility]) and he will accept pt. because [...] with H/H (9.3/27.5). Pt. understands and agrees. 14:29 Jul 26 2019. Pt. doing much better with IV fluids and SBP back up to over 100. He is awake and alert and I have told him about transfer to [facility] and he is agreeable. Critical care [...] to transfer explained to patient. Transferred to [facility]. Summary of care (CCDA) provided to transport team, EMS, patient, family and transfer facility via paper and digital media. 13:[address] Cabrera ([facility] hospitalist) accepts pt. for transfer for [...] troponin). 8 Clinical Report - Physicians/Mid Levels [facility] [address] [place] [address] Phone #: ext- [phone] 07/26/2019 10:24 Patient: CASSIDY VARGHESE Sex: M : 1940 Age: 79y(Electronically signed by Merritt Marrero, Physician 07/27/2019 07:40) Name Value Range Interpretation Code Description Data Kevin rce(s) Supporting Document(s) ID Date Data Source [id number] 07/26/2019 12:38:00 PM EDT [facility]) Name Value Range Interpretation Code Description Data Kevin rce(s) Supporting Document(s) D-Dimer QN 0.81 [facility] ([facility]) Lipoprotein lipase [Enzymatic activity/volume] in Serum or Plasma 140 [facility]) ID Date Data Source [id number] 07/26/2019 12:38:00 PM EDT [facility] ([facility]) Name Value Range Interpretation Code Description Data Kevin rce(s) Supporting Document(s) Red Blood Count 2.97 4.50-6.30 [facility] ([facility]) White Blood Count 9.4 4.2-11.0 [facility] ([facility]) Hemoglobin 9.3 14.0-16.0 [facility] ([facility]) Platelets 324 150-450 [facility]) Hematocrit 27.5 41.0-51.0 [facility] ([facility]) ID Date Data Source [id number] 07/26/2019 12:38:00 PM EDT [facility] ([facility] Name Value Range Interpretation Code Description Data Kevin rce(s) Supporting Document(s) Albumin [Mass/volume] in Serum or Plasma 3.8 [facility] ([facility] Alanine aminotransferase [Enzymatic activity/volume] in Serum or Pl asma 34 [facility] ([facility] Calcium [Mass/volume] in Serum or Plasma 9.9 [facility] ([facility] Carbon dioxide, total [Moles/volume] in Serum or Plasma 27 [facility] ([facility] Chloride [Moles/volume] in Serum or Plasma 93 [facility] ([facility] Potassium [Moles/volume] in Serum or Plasma 3.2 [facility] ([facility] Alkaline phosphatase [Enzymatic activity/volume] in Serum or Plasma 6 9 [facility] ([facility] Protein [Mass/volume] in Serum or Plasma 6.7 [facility] ([facility] Sodium 139 [facility] ([facility] Aspartate aminotransferase [Enzymatic activity/volume] in Serum or Plasma 32 [facility] ([facility] Urea nitrogen [Mass/volume] in Serum or Plasma 31 [facility] ([facility]) Creatinine For GFR 9.9 [facility] ([facility] Glucose 133 65-110 [facility] ([facility] ID Date Data Source [id number] 07/26/2019 12:38:00 PM EDT [facility] ([facility] Name Value Range Interpretation Code Description Data Kevin rce(s) Supporting Document(s) Troponin 0.12 [facility] ([facility] Brain Natriuretic Peptide 2349 MEDE NT ([facility] ID Date Data Source [id number] 07/31/2019 06:22:00 PM EDT [facility] ped BC Name Value Range Interpretation Code Description Data Kevin rce(s) Supporting Document(s) Bacteria identified in Blood by Culture [facility] NO GROWTH AFTER 5 DAYS ID Date Data Source [id number] 07/26/2019 12:18:00 PM EDT [facility] Name Value Range Interpretation Code Description Data Kevin rce(s) Supporting Document(s) Fibrin D-dimer FEU [Mass/volume] in Platelet poor plasma 0.81 ug /mL 0.27 - 0.50 [facility] ID Date Data Source [id number] 07/26/2019 12:18:00 PM EDT [facility] Value Range Interpretation Code Description Data Kevin rce(s) Supporting Document(s) aPTT in Blood by Coagulation assay 42.6 SECONDS 24.8 - 36.7 H [facility] ID Date Data Source [id number] 07/26/2019 12:17:00 PM EDT [facility] Value Range Interpretation Code Description Data Kevin rce(s) Supporting Document(s) Prothrombin time (PT) 14.3 SECONDS 11.0 - 15.5 [facility] INR in Platelet poor plasma by Coagulation assay 1.10 0.93 - 1. 23 [facility] \\BLDo\\INR INTERPRETATION\\BLDx\\ Therapeutic range for Coumadin and related oral anticoagulants. - International Normalized Ratio (INR): 2.0 - 3.0 for Venous Thrombosis, Pulmonary Embolus, Tissue heart valves, Acute CT, Atrial Fibrillation, Valvular heart disease and recurrent Systemic Embolism. -International Normalized Ratio (INR): 2.5 - 3.5 for Mechanical Prosthetic valve. ID Date Data Source [id number] 08/01/2019 07:11:00 AM EDT [facility] Value Range Interpretation Code Description Data Kevin rce(s) Supporting Document(s) CULTURE BLOOD [facility] spital _CULTURE BLOOD_ TEST [place] [address] IA# [id number] SEE SCANNED REPORT{ PRELIM ID Date Data Source [id number] 07/26/2019 12:17:00 PM EDT [facility] Value Range Interpretation Code Description Data Kevin rce(s) Supporting Document(s) Lipase [Enzymatic activity/volume] in Serum or Plasma 140 U/L 13 - 60 H [facility] ID Date Data Source [id number] 07/26/2019 12:17:00 PM EDT [facility] Value Range Interpretation Code Description Data Kevin rce(s) Supporting Document(s) Creatine kinase [Enzymatic activity/volume] in Serum or Plasma 4 60 U/L 30 - 170 [facility] ID Date Data Source [id number] 07/26/2019 12:16:00 PM EDT [facility] Name Value Range Interpretation Code Description Data Kevin rce(s) Supporting Document(s) COMPREHENSIVE METABOLIC PANEL [facility] COMPREHENSIVE METABOLIC PANEL Sodium [Moles/volume] in Serum or Plasma 139 mEq/L 134 - 153 [facility] Potassium [Moles/volume] in Serum or Plasma 3.2 mEq/L 3.6 - 5.0 L [facility] Chloride [Moles/volume] in Serum or Plasma 93 mEq/L 98 - 107 L [facility] Carbon dioxide, total [Moles/volume] in Serum or Plasma 27 MEQ/L 22 - 30 [facility] Glucose [Mass/volume] in Serum or Plasma 133 MG/DL 65 - 110 [facility] BUN 31 MG/DL 7 - 21 [facility] Creatinine [Mass/volume] in Serum or Plasma 9.9 MG/DL 0.7 - 1.5 [facility] CALL/ READ BACK DR MARRERO [facility] BY: [facility] 07[facility]26[facility]19 1215 [facility] ospital BUN/CREAT 3 8 - 27 L [facility] Protein [Mass/volume] in Serum or Plasma 6.7 G/DL 6.3 - 8.2 [facility] Albumin [Mass/volume] in Serum or Plasma 3.8 G/DL 3.9 - 5.0 L [facility] Globulin [Mass/volume] in Serum by calculation 2.9 GM/DL 2.4 - 3.2 [facility] A/G RATIO 1.3 0.8 - 2.0 [facility] Calcium [Mass/volume] in Serum or Plasma 9.9 MG/DL 8.4 - 10.2 [facility] Bilirubin.total [Mass/volume] in Serum or Plasma <0.7 MG/DL 0.2 - 1.3 [facility] Alkaline phosphatase [Enzymatic activity/volume] in Serum or Plasma 69 U/L 38 - 126 [facility] Aspartate aminotransferase [Enzymatic activity/volume] in Serum or Plasma 32 U/L 5 - 40 [facility] Alanine aminotransferase [Enzymatic activity/volume] in Seru m or Plasma 34 U/L 7 - 56 [facility] Anion gap 3 in Serum or Plasma 19.0 mmol/L 8.0 - 16.0 H [facility] AGE 79 yrs [facility] NON-AA GFR 5 mL/min [facility] AMER GFR 7 mL/min [facility] Male GFR In terprentation 20-49 [...] >32 mL/min Normal ID Date Data Source [id number] 07/26/2019 12:16:00 PM EDT [facility] Name Value Range Interpretation Code Description Data Kevin rce(s) Supporting Document(s) BNP 2349 PG/ML 0 - 450 H [facility] ID Date Data Source [id number] 07/26/2019 12:15:00 PM EDT [facility] Name Value Range Interpretation Code Description Data Kevin rce(s) Supporting Document(s) TROPONIN T 0.12 NG/ML 0.00 - 0.10 [facility] spital CALL/ READ BACK DR MARRERO [facility] BY: MAURA [facility] DATE/TIME 07/26/19 1215 [facility] ospital TROPONIN T0.1 ng/ml Recommended as the c linical threshold value forTroponin T. ID Date Data Source [id number] 07/26/2019 11:50:00 AM EDT [facility] Name Value Range Interpretation Code Description Data Kevin rce(s) Supporting Document(s) Lactate [Moles/volume] in Serum or Plasma 4.4 MMOL/L 0.2 - 2.2 [facility] CALL/ READ BACK OMAR [facility] BY: MAURA [facility] DATE/TIME 07/26/19 1152 [facility] ospital ID Date Data Source [id number] 07/26/2019 11:49:00 AM EDT [facility] Name Value Range Interpretation Code Description Data Kevin rce(s) Supporting Document(s) CBC W/AUTOMATED DIFF [facility] COMPLETE BLOOD COUNT Leukocytes [#/volume] in Blood by Automated count 9.4 10^3/uL 4.2 - 1 1.0 [facility] Erythrocytes [#/volume] in Blood by Automated count 2.97 10^6/uL 4. 50 - 6.30 L [facility] Hemoglobin [Mass/volume] in Blood 9.3 g/dL 14.0 - 16.0 L [facility] Hematocrit [Volume Fraction] of Blood by Automated count 27.5 % 4 1.0 - 51.0 L [facility] Erythrocyte mean corpuscular volume [Entitic volume] by Auto mated count 92.6 fL 80.0 - 94.0 [facility] Erythrocyte mean corpuscular hemoglobin [Entitic mass] by Automated count 31.3 pg 27.0 - 34.0 [facility] Erythrocyte mean corpuscular hemoglobin concentration [Mass/volume] by Automated count 33.8 g/dL 31.0 - 36.0 [facility] Erythrocyte distribution width [Ratio] by Automated count 15.7 % 11.5 - 14.8 H [facility] Platelets [#/volume] in Blood by Automated count 324 10^3/uL 150 - 45 0 [facility] Platelet mean volume [Entitic volume] in Blood by Automated count 10.1 fL 7.4 - 10.4 [facility] Neutrophils/100 leukocytes in Blood by Automated count 66.2 % 37. 0 - 80.0 [facility] Lymphocytes/100 leukocytes in Blood by Manual count 21.7 % 25.0 - 40.0 L [facility] Monocytes/100 leukocytes in Blood by Automated count 5.3 % 3.0 - 8.0 [facility] Eosinophils/100 leukocytes in Blood by Automated count 6.1 % 0.0 - 7.0 [facility] Basophils/100 leukocytes in Blood by Automated count 0.3 % 0.0 - 2.0 [facility] %IG 0.4 % 0.0 - 0.0 H [facility] %NRBC 0.0 % 0.0 - 0.0 [facility] al Neutrophils [#/volume] in Blood by Automated count 6.21 10^3/uL 2.00 - 6.90 [facility] Lymphocytes [#/volume] in Blood by Automated count 2.04 10^3/uL 0.60 - 3.40 [facility] Monocytes [#/volume] in Blood by Automated count 0.50 10^3/uL 0.00 - 0.90 [facility] Eosinophils [#/volume] in Blood by Automated count 0.57 10^3/uL 0.00 - 0.70 [facility] Basophils [#/volume] in Blood by Automated count 0.03 10^3/uL 0.00 - 0.20 [facility] #IG 0.04 10^3/uL 0.00 - 0.10 [facility] #NRBC 0.00 10^3/uL 0.00 - 0.00 [facility] MANUAL DIFF NOT INDICATED [facility] RBC MORPH NOT INDICATED [facility] spital ID Date Data Source [id number] 08/01/2019 07:11:00 AM EDT [facility] Name Value Range Interpretation Code Description Data Kevin rce(s) Supporting Document(s) CULTURE BLOOD [facility] spital _CULTURE BLOOD_ TEST [place] [address] CLIA# [id number] SEE SCANNED REPORT{ PRELIM ID Date Data Source [id number] 06/18/2019 12:19:00 PM EDT [facility] ([facility] Name Value Range Interpretation Code Description Data Kevin rce(s) Supporting Document(s) Blood Urea Nitrogen 35 6-19 [facility] ([facility] Glucose Laboratory test result [facility] ([facility] Creatinine 10.30 0.60-1.30 [facility] ([facility] Sodium 136 136-145 [facility] ([facility] Potassium 4.5 3.5-5.1 [facility] Calcium 11.5 8.4-10.4 [facility] ([facility] Chloride 94 96-108 [facility] Carbon Dioxide 18 22-29 [facility] ([facility]) Glomerular filtration rate/1.73 sq M.pre dicted [Volume Rate/Area] in Serum or Plasma by Creatinine-based formula (MDRD) Laboratory test result [facility] ([facility]) ID Date Data Source [id number] 06/18/2019 12:19:00 PM EDT [facility] Name Value Range Interpretation Code Description Data Kevin rce(s) Supporting Document(s) Platelets 256 130-400 [facility] ([facility] White Blood Count 11.42 4.80-10.80 [facility] ([facility] Red Blood Count 3.57 4.7-6.10 [facility] ([facility]) Hematocrit 33.3 42.0-52.0 [facility] ([facility]) Hemoglobin 11.2 14.0-18.0 [facility] ([facility]) ID Date Data Source [id number] 05/04/2019 10:53:00 AM [facility] [address] [place] [address] PHONE: [phone] FAX: [phone] Name .................. : ABIMAELBARRY Fair Acct Number.................. : [id number] ROOM. ................. : TR-03 Number ................... : [id number] Stay type ............. : E/R Discharge Date......... ... : 05/01/19 Admit Date ....... .. : 05/01/19 Admit Phys .................... : ELIDA DE OLIVEIRA Date of ....... : 1940 Family Phys ................... : UNKNOWN Phone .................. : [phone] Age ................................ : 79 Film# .................. .:[id number] Sex ................................. : M Unsigned transcriptions are preliminary reports and do not represent a medical or legal document CT THORAX W/O CONTRAST [id number] COMPLETE:05/01/19 18:52 [facility] [id number] Reason(s): Congestion CT OF THE CHEST WITHOUT [...] dose: 1153.9 mGycm Page 1 of 2 [facility] [address] [place] [address] PHONE: [phone] FAX: [phone] Name .................. : ABIMAEL Fair Acct Number.................. : [id number] ROOM. ................. : TR-03 Number ................... : [id number] Stay type ............. : E/R Discharge Date......... ... : 05/01/19 Admit Date ......... : 05/01/19 Admit Phys .................... : VENERUS BR Date of ....... : 1940 Family Phys ................... : UNKNOWN Phone .................. : [phone] Age ................................ : 79 Film# .................. .:[id number] Sex ................................. : M Unsigned transcriptions are preliminary reports and do not represent a medical or legal document CT THORAX W/O CONTRAST [id number] COMPLETE:05/01/19 18:52 [facility] [address] Reason(s): Congestion Electronically Reviewed and Signed By Azael Cutler M.D. , 05/04/19 10:53, [place] Transcribe Initials: DALE , Transcribe Date: 05/02/19 13:12, Dictation Date: Copy for: EMERGENCY DEPT via modem Copy for: 710 MED REC DISCHARGED Page 2 of 2 Name Value Range Interpretation Code Description Data Kevin rce(s) Supporting Document(s) ID Date Data Source [id number] 05/01/2019 12:53:00 PM EST [facility] 1 OrderSheet [facility] Emergency Department [address] [place] [address] Phone #: ext- [phone] 05/01/2019 12:38 Patient: [...] RN Physician;Blood Culture STAT 12:54 05/01/2019 12:59 Edynon69j X2 (Anuradha Cordero RN12:54 05/01/2019) Physician;Blood Culture STAT 12:54 05/01/2019 13:19 Mo 2 OrderSheet [facility] Emergency Department [address] [place] [address] Phone #: ext- [phone] 05/01/2019 12:38 Patient: CASSIDY VARGHESE Sex: M : 1940 Age: 44tx93g X2 (Sched Merritt Cordero RN13:04 05/01/2019) Physician;D-Dimer STAT 12:54 05/01/2019 12:59 Mo Cordero RN Physician;Influenza Nasal A B STAT [...] InitialedDuoNeb Neb Tx 3 13:06 05/01/2019 13:19 Marcela (NOW) Merritt Cordero RN Physician;SOLU-Medrol 125 13:07 05/01/2019 13:19 Momg IV X1 Dose: 125 Merritt Cordero RNmg (X1) Physician;NitroGLYCERIN 13:41 05/01/2019 13:49 Mo 3 OrderSheet [facility] Emergency Department [address] [place] [address] Phone #: ext- [phone] 05/01/2019 12:38 Patient: CASSIDY VARGHESE Sex: M : 1940 Age: 78yTopical Ointment Merritt Cordero RN1 in. Physician;Rocephin 15:10 05/01/2019 15:22 Mo(1gm/50mL) IVPB Merritt Cordero RN1000 mg with Physician;Dextrose 50 mlspike bag (D5W)GENERAL [...] RN Physician;[Electronically signed by Katie Whitt R.N. (:05/01/2019)][Electronically signed by Merritt Marrero Physician (04:17 05/03/2019)][Electronically locked by Katie Whitt R.N. (05/01/2019)] Name Value Range Interpretation Code Description Data Kevin rce(s) Supporting Document(s) ID Date Data Source [id number] 05/01/2019 12:53:00 PM EST [facility] 1 Medication Reconciliation Report [facility] Emergency Department [address] [place] [address] Phone #: ext- [phone] 05/01/2019 12:38 Patient: CASSIDY VARGHESE Sex: M : 1940 Age: 78yWeight: 85.2 kgHeight/Length: 68 in.BMI: 28.6ALLERGIES: Amlodipine, Hydralazine, Indocin, Minoxidil, Mircera, NorvascThe patient's Home Medications are listed below:THE FOLLOWING MEDICATIONS NEED TO BE RECONCILED: Albuterol Sulfate Inhalation Allopurinol Oral (100 mg) 1 tablet, daily, prn Aspir-81 Oral, daily Calcium Acetate Oral 667 mg, 3x a day Epogen Injection (35207 unit/mL), once a week Heparin Sodium (Porcine) [...] 3x a day 2 Medication Reconciliation Report [facility] Emergency Department [address] [place] [address] Phone #: ext- [phone] 05/01/2019 12:38 Patient: CASSIDY VARGHESE Sex: M [...] rce(s) Supporting Document(s) ID Date Data Source [id number] 05/01/2019 12:53:00 PM EST [facility] 1 Medication Administration Record [facility] Emergency Department [address] [place] [address] Phone #: ext- [phone] 05/01/2019 12:38 Patient: [...] #1 right wristGiven NITROGLYCERIN [TOPICAL OINTMENT] NitroGLYCERIN Siasuor13:47 05/01/2019 Dose: 1 in. Ointment Topical Ointment 1 in.TOMASZ Cavazostart ROCEPHIN (1GM/50ML) [IVPB] Rocephin (1gm/50mL) IVPB 327169:20 05/01/2019 (CEFTRIAXONE SODIUM) mg with Dextrose 50 ml spike Florian Cordero RN Dose: 1 gm IVPB (D5W)---- Rate: 100 mL/hr over 30 minute(s)Stop Dispensed: 50 mL bag15:50 05/01/2019 Site: #1 right wristKatie Whitt R.N. Name Value Range Interpretation Code Description Data Kevin rce(s) Supporting Document(s) ID Date Data Source [id number] 05/01/2019 12:53:00 PM EST [facility] 1 General Instructions [facility] Emergency Department [address] [place] [address] Phone #: ext- [phone] 05/01/2019 12:38 Patient: [...] (vasculitis), andpast viral or bacterial infections. Certain zezo-nvh-xbaafvh pain medicines can cause renal failurewhen taken [...] is safe for you. 2 General Instructions [facility] Emergency Department [address] [place] [address] Phone #: ext- [phone] 05/01/2019 12:38 Patient: CASSIDY VARGHESE Sex: M : 1940 Age: 78y If you are overweight, talk with your healthcare provider about a weight loss plan. If you smoke, you must quit. Smoking makes kidney disease worse. Talk with your healthcare provider about ways to help you quit. For more information, visit the following links: o www.smokefree.gov/sites/default/files/pdf/dipcnbnn-ill-qzt-accessible.pdf o www.smokefree.gov o www.cancer.org /healthy/stayawayfromtobacco/guidetoquittingsmoking/ Most people [...] reduced or stopped. Don't use the following cxmi-mim-qirsoyd medicines, or consult your healthcare provider before [...] Contact one of the following for moreinformation: [place] [employer] [phone] www.aakp.org National Kidney Foundation 678-867-4420 www.kidney.org [employer] 797-601-5968 www.kidneyfund.org National Kidney Disease Education Program 866-4KIDNEY www.nkdep.nih.gov 3 General Instructions [facility] Emergency Department [address] [place] [address] Phone #: ext- [phone] 05/01/2019 12:38 Patient: CASSIDY VARGHESE Sex: M : 1940 Age: 78yIf an X-ray, ECG (cardiogram), or other diagnostic test was taken, you will be told of any new findingsthat may affect your care.Call [phone] if you have any of the following: [...] the eyes Decrease or absent urine output [id number] [employer]. [address] [place] [address]. All rights reserved. This information is not intended as asubstitute for professional medical care. Always follow your healthcare professional's instructions. You have been given the following a dditional information: Chronic Kidney Disease (CKD)(Electronically signed by Merritt Marrero, Physician 05/03/2019 04:17) Name Value Range Interpretation Code Description Data Kevin rce(s) Supporting Document(s) ID Date Data Source [id number] 05/01/2019 12:53:00 PM EST [facility] 1 Clinical Report - Nurses [facility] Emergency Department [address] [place] [address] Phone #: ext- [phone] 05/01/2019 12:38 Patient: CASSIDY VARGHESE Sex: M [...] had a cough productive of sputum. Treatment RELATIONS LIAISON: None. SEPSIS SCREEN: Negative (no infection suspected/documented). [...] 05/01/19 Audra Hdz R.N. Epogen Injection (Solution 94107 unit/mL), once a week. --13:29 05/01/19 Audra [...] Audra Hdz R.N. Mupirocin External. --13:31 05/01/19 Audra Hdz R.N. Paricalcitol Oral (Capsule 1 mcg) 3 caps, monthly. --13:32 05/01/19 Audra Hdz R.N. Percocet Oral (Tablet 5-325 mg) 1 tablet, 3x a day as needed. --13:32 05/01/19 Audra Hdz R.N. Potassium Chloride ER Oral (Tablet Extended Release 20 meq), daily. --13:32 05/01/19 Audra Hdz R.N. 2 Clinical Report - Nurses [facility] Emergency Department [address] [place] [address] Phone #: ext- [phone] 05/01/2019 12:38 Patient: [...] 05/01/19 Audra Hdz R.N.Hydralazine. --13:16 05/01/19 Audra Hzd R.N.Minoxidil. --13:16 05/01/19 Audra Hdz R.N.Mircera. --13:16 [...] "Have you 3 Clinical Report - Nurses [facility] Emergency Department [address] [place] [address] Phone #: ext- [phone] 05/01/2019 12:38 Patient: [...] on patient. To treatment room. --12:45 05/01/19 Audra Hdz R.N.PHYSICAL ASSESSMENT To room via stretcher. GENERAL [...] ED physician notified. --12:46 05/01/19 Audra Hdz R.N. Finger stick glucose: 104; performed by nurse; [...] Cordero RN 4 Clinical Report - Nurses [facility] Emergency Department [address] [place] [address] Phone #: ext- [phone] 05/01/2019 12:38 --- Patient: CASSIDY VARGHESE Sex: M : 1940 Age: 78y13:05/01/2019 Duoneb Neb TX Nebulizer 1 unit dose [...] discomfort, his remains at the bedside). --13:251 Yves Cavazos ID band checked for patient [...] the presence of the patient. --13: Audra Hdz R.N.13:47 05/01/2019 NITROGLYCERIN Topical Ointment 1 inch given. Applied to the affected area.Information reviewed with patient including reason for taking this medication. Verbalizes understanding. (toleft anterior chest). --13:49 05/01/19 Mo Cordero RN( pt continues to rest, waiting [...] Cordero RN 5 Clinical Report - Nurses [facility] Emergency Department [address] [place] [address] Phone #: ext- [phone] 05/01/2019 12:38 Patient: CASSIDY VARGHESE Sex: M : 1940 Age: 78y Patient returned from CT by stretcher with radiology director. --16: 59 05/01/19 Mo Cordero RN 16:44 05/01/19. Patient transported to CT by stretcher with radiology director. --16:59 05/01/19 Mo Cordero RN 15:00 05/01/19. [...] Katie Whitt R.N.DISPOSITION / DISCHARGE Transferred to [facility]. Provided to EMS and transfer [...] was transferred. 6 Clinical Report - Nurses [facility] Emergency Department [address] [place] [address] Phone #: ext- [phone] 05/01/2019 12:38 --- Patient: CASSIDY VARGHESE Sex: M : 1940 Age: 78y (Kaitlyn ARRIAGA). --17:26 05/01/19 Mo Cordero RN Departure time: late entry - 19:20 05/01/2019. ( This was via EMS cuff, attempted multiple time by EMS and this teletypewriter operator to obtain manual however extremely difficult to hear and can only use right arm. aware of VS and is okay with transfer.). --19:24 05/01/19 Katie Whitt R.N. 19:15 05/01/19. BP: 189/94. MAP: 125. HR: 75. RR: 17. O2 saturation: 97% on room air. Pain level now: 0/10. --19:24 05/01/19 Katie Whitt R.N.Locked/Released at 05/01/2019 19:26 by Katie Whitt R.N. Name Value Range Interpretation Code Description Data Kevin rce(s) Supporting Document(s) ID Date Data Source [id number] 05/01/2019 12:53:00 PM EST [facility] 1 Clinical Report - Physicians/Mid Levels [facility] Emergency Department [address] [place] [address] Phone #: ext- [phone] 05/01/2019 12:38 Patient: CASSIDY VARGHESE Sex: M [...] daily. 2 Clinical Report - Physicians/Mid Levels [facility] Emergency Department [address] [place] [address] Phone #: ext- [phone] 05/01/2019 12:38 Patient: CASSIDY VARGHESE Sex: M : 1940 Age: 78y Isosorbide Mononitrate ER Oral (Tablet Extended Release 24 Hour 60 mg) 1 tablet, daily. Heparin Sodium (Porcine) Injection (Solution 1000 unit/mL), once a week. Epogen Injection (Solution 98920 unit/mL), once a week. Albuterol Sulfate Inhalation. [...] distal aspect.). 3 Clinical Report - Physicians/Mid Levels [facility] Emergency Department [address] [place] [address] Phone #: ext- [phone] 05/01/2019 12:38 Patient: CASSIDY VARGHESE Sex: M : 1940 Age: 78y Neuro: Oriented X 3. Motor deficit noted. He has generalized weakness. No sensory deficit.LABS, X-RAYS, AND EKGLaboratory Tests: Laboratory tests have been ordered, with results reviewed and considered in themedical decision making process. Influenza Nasal A B: (MIKE: 05/01/2019 13:34) ( [facility] 05/01/2019 13:59) Final results Test Result Flag [...] patient managementdecisions. Troponin-T: (MIKE: 05/01/2019 13:07) ( [facility] 05/01/2019 13:45) Final results Test Result Flag Units (Reference) TROPONIN T 0.09 NG/ML (0.00 - 0.10) TROPONIN T0.1 ng/ml Recommended as the clinical threshold value forTroponin T. PTT: (MIKE: 05/01/2019 13:07) ( [facility] 05/01/2019 13:27) Final results Test Result Flag Units (Reference) PTT 29.7 SECONDS (24.8 - 36.7) PT/INR: (MIKE: 05/01/2019 13:07) ( [facility] 05/01/2019 13:27) Final results Test Result Flag Units (Reference) PROTIME 13.2 SECONDS (11.0 - 15.5) INR 0.99 (0.93 - 1.23) \\BLDo\\INR INTERPRETATION\\BLDx\\ Therapeutic range for Coumadin and related oral anticoagulants. -International Normalized Ratio (INR): 2.0 - 3.0 for Venous Thrombosis, Pulmonary Embolus, Tissue heart valves, Acute CT, Atrial Fibrillation, Valvular heart disease and recurrent Systemic Embolism. -International Normalized Ratio (INR): 2.5 - 3.5 for Mechanical Prosthetic valve. Lipase: (MIKE: 05/01/2019 13:07) ( [facility] Final results Test Result Flag Units (Reference) LIPASE 33 U/L (13 - 60) Lactic Acid: (MIKE: 05/01/2019 13:07) ( [facility] 05/01/2019 13:24) Final results Test Result Flag* * Units (Reference) LACTIC ACID 1.6 MMOL/L (0.2 - 2.2) BNP: (MIKE: 05/01/2019 13:07) ( [facility] 05/01/2019 13:45) Final results Test Result Flag Units (Reference) BNP 18357 H PG/ML (0 - 450) CBC w Diff: (MIKE: 05/01/2019 13:07) ( [facility] 05/01/2019 13:24) Final results Test Result Flag Units (Reference) CBC W/AUTOMATED DIFF COMPLETE BLOOD COUNT WBC 7.7 10/uL (4.2 - 11.0) RBC 3.59 L 10/uL (4.50 - 6.30) HEMOGLOBIN 11.6 L g/dL (14.0 - 16.0) 4 Clinical Report - Physicians/Mid Levels [facility] Emergency Department [address] [place] [address] Phone #: ext- [phone] 05/01/2019 12:38 Patient: [...] Male GFR Interprentation 20-49 yrs >60 mL/min Yeqebw62-94 yrs >56 mL/min Normal 60-69 yrs >49 mL/min Normal 70-79yrs>42 mL/min Normal 80 and above >35 mL/min Normal Female GFRInterpretation 20-39 yrs >60 mL/min Normal 40-49 yrs >58 mL/minNormal 50-59 yrs >51 mL/min Normal 60-69 yrs >45 mL/min Wosyxq51-69 yrs >39 mL/min Normal 80 and above >32 mL/min NormalCPK: (MIKE: 05/01/2019 13:07) ( MsgRcvd 05/01/2019 13:43) Final results Test Result Flag Units (Reference) CPK 62 U/L (30 - 170)D-Dimer: (MIKE: 05/01/2019 13:07) ( MsgRcvd 05/01/2019 13:28) Final results Test Result Flag Units (Reference) D-DIMER QUANT 0.71 H ug/mL (0.27 - 0.50)Chest Portable 1 View: (MIKE: 05/01/2019 12:54) ( MsgRcvd 05/01/2019 14:57) In Progress 5 Clinical Report - Physicians/Mid Levels [facility] Emergency Department [address] [place] [address] Phone #: ext- [phone] 05/01/2019 12:38 Patient: CASSIDY VARGHESE Sex: M : 1940 Age: 78y [place] [address] PHONE: [phone] FAX: [phone] N dhruv .................. : ABIMAEL Fair Acct Number.................. : [id number] ROOM. ................. : TR03 MR Number ................... : [id number] Stay type ............. : E/R Discharge Date......... ... : Admit Date ......... : 05/01/19 Admit Phys .................... : ELIDA DE OLIVEIRA Date of ....... : 1940 Family Phys ................... : UNKNOWN Phone .................. : [phone] Age ................................ : 78 Film# .................. .:[id number] Sex ................................. : M Unsigned transcriptions are preliminary reports and do not represent a medical or legal document CHEST PORTABLE [id number] COMPLETE:05/01/19 12:54 [id number] Reason(s): Congestion Shortness of Breath PORTABLE CHEST X-RAY: HISTORY: Congestion. COMPARISON: 07/19/18 FINDINGS: The cardiac and mediastinal silhouettes appear normal and the lungs are clear. The bones and soft tissues are normal. The upper abdomen is unremarkable. IMPRESSION: No acute disease identifiable. Electronically Reviewed and Signed By DCTNAME , SIGNDATE, [facility] Transcribe Initials: DALE , Transcribe Date: 05/01/19 [...] we will be transferring the pt. to [facility] by ambulance. 6 Clinical Report - Physicians/Mid Levels [facility] Emergency Department [address] [place] [address] Phone #: ext- [phone] 05/01/2019 12:38 Patient: CASSIDY VARGHESE Sex: M [...] explained to patient and spouse. Transferred to [facility]. Summary of care (CCDA) provided to transport team, EMS, patient, family and transfer facility via paper and digital media. 15:41 May 01 2019 Transfer to [facility] by ambulance as per Dr. Bills [...] rce(s) Supporting Document(s) ID Date Data Source [id number] 05/01/2019 12:53:00 PM [facility] CASSIDY Cook VisitID: [id number] Date: 7:28wound culture sent to [facility] via fax and teletypewriter operator called to verifity that pt was still a pt on 4PAV(Electronically signed by Audra Hdz R.N. 05/04/2019 7:28) Name Value Range Interpretation Code Description Data Kevin rce(s) Supporting Document(s) ID Date Data Source [id number] 05/03/2019 01:12:00 AM [facility] [address] [place] [address] RESPIRATORY CARE REPORT ==== ---------NAME------- NUMBER SEX AGE ADMIT DISC. XRAY# F/C TYPEGROCE CASSIDY Fair [id number] M [id number] 05/01/19 05/01/19 [id number] MB4 E/R DATE OF : 1940 M/R# [id number] #: [phone] TR-03 LOCATION: EMERGENCY DEPT EKG 94400 COMP LETE:05/02/19 10:49 [id number] PHYSICIAN: ELIDA DE OLIVEIRA Name Value Range Interpretation Code Description Data Kevin rce(s) Supporting Document(s) ID Date Data Source [id number] 2019 11:04:00 [place] [address] PHONE: [phone] FAX: [phone] Name .................. : ABIMAEL Fair Acct Number.................. : [id number] ROOM. ................. : TR-03 Number ................... : [id number] Stay type ............. : E/R Discharge Date......... ... : 05/01/19 Admit Date ......... : 05/01/19 Admit Phys .................... : ELIDA DE OLIVEIRA Date of ....... : 1940 Family Phys ................... : UNKNOWN Phone .................. : [phone] Age ................................ : 78 Film# .................. .:[id number] Sex ................................. : M Unsigned transcriptions are preliminary reports and do not represent a medical or legal document CT ABD & PELV W/[place] ORAL W/[place] [address] COMPLETE:05/01/19 18:52 [facility] [address] Reason(s): Nausea CT OF THE ABDOMEN AND PELVIS WITHOUT CONTRAST: INDICATION: Nausea. FINDINGS: There is normal noncontrast CT appearance of the liver, spleen, pancreas and adrenal glands. The bilateral standing rock kidneys are not visualized. They may be [...] acute intra-abdominal process. Page 1 of 2 [place] [address] PHONE: [phone] FAX: [phone] Name .................. : ABIMAEL Fair Acct Number.................. : [id number] ROOM. ................. : TR-03 Number ................... : [id number] Stay type ............. : E/R Discharge Date......... ... : 05/01/19 Admit Date ......... : 05/01/19 Admit Phys .................... : VENERUS BR Date of ....... : 1940 Family Phys ................... : UNKNOWN Phone .................. : [phone] Age ................................ : 78 Film# .................. .:[id number] Sex ................................. : M Unsigned transcriptions are preliminary reports and do not represent a medical or legal document CT ABD & PELV W/O ORAL W/[place] [address] COMPLETE:05/01/19 18:52 [facility] [address] Reason(s): Nausea While performing the above CT examination, radiation dose reduction was accomplished utilizing automated exposure control, adjusting of the mA and kV based on the patient's body size and/or the use of imperative reconstructive techniques. CT dose: 1153.9 mGycm Electronically Reviewed and Signed By Azael Cutler M.D. , 05/02/19 11:04, [facility] Transcribe Initials: DALE , Transcribe Date: 05/01/19 22:13, Dictation Date: Copy for: EMERGENCY DEPT via [facility] Copy for: 710 MED REC DISCHARGED Page 2 of 2 Name Value Range Interpretation Code Description Data Kevin rce(s) Supporting Document(s) ID Date Data Source [id number] 2019 10:14:00 AM [facility] [address] [place] [address] PHONE: [phone] FAX: [phone] Name .................. : ABIMAEL Fair Acct Number.................. : [id number] ROOM. ................. : TR-03 Number ................... : [id number] Stay type ............. : E/R Discharge Date......... ... : 05/01/19 Admit Date ......... : 05/01/19 Admit Phys .................... : ELIDA DE OLIVEIRA Date of ....... : 1940 Family Phys ................... : UNKNOWN Phone .................. : [phone] Age ................................ : 78 Film# .................. .:[id number] Sex ................................. : M Unsigned transcriptions are preliminary reports and do not represent a medical or legal document CT HEAD W/O CONTRAST 42702 COMPLETE:05/01/19 18:52 [facility] [address] Reason(s): Dizziness CT OF THE HEAD WITHOUT [...] By Robby Lott MD , 05/02/19 10:14, [facility] Transcribe Initials: DZ , Transcribe Date: 05/01/19 21:11, Dictation Date: Copy for: EMERGENCY DEPT via modem Copy for: 710 MED REC DISCHARGED Page 1 of 1 Name Value Range Interpretation Code Description Data Kevin rce(s) Supporting Document(s) ID Date Data Source [id number] 2019 10:12:00 AM EST [facility] [address] [place] [address] PHONE: [phone] FAX: [phone] Name .................. : ABIMAEL Fair Acct Number.................. : [id number] ROOM. ................. : TR-03 Number ................... : [id number] Stay type ............. : E/R Discharge Date......... ... : Admit Date ......... : 05/01/19 Admit Phys .................... : ELIDA DE OLIVEIRA Date of ....... : 1940 Family Phys ................... : UNKNOWN Phone .................. : [phone] Age ................................ : 78 Film# .................. .:[id number] Sex ................................. : M Unsigned transcriptions are preliminary reports and do not represent a medical or legal document CHEST PORTABLE [id number] COMPLETE:05/01/19 12:54 89049 Reason(s): Congestion JIHAN BLE CHEST X-RAY: HISTORY: Congestion. COMPARISON: 07/19/18 FINDINGS: The cardiac and mediastinal silhouettes appear normal and the lungs are clear. The bones and soft tissues are normal. The upper abdomen is unremarkable. IMPRESSION: No acute disease identifiable. Electronically Reviewed and Signed By Robby Lott MD , 05/02/19 10:12, [facility] Transcribe Initials: DALE , Transcribe Date: 05/01/19 14:29, Dictation Date: Copy for: EMERGENCY DEPT via modem Copy for: 710 MED REC DISCHARGED Page 1 of 1 Name Value Range Interpretation Code Description Data Kevin rce(s) Supporting Document(s) ID Date Data Source [id number] 05/06/2019 06:19:00 PM EST [facility] [address] [id number] GREAT TOESP DESC: LEFT GREAT T OEMODERATE STAPH SPP. COAGULASE NEGATIVE PROBABLE NORMAL SKINFLORANO SENSITIVITIES DONE Name Value Range Interpretation Code Description Data Kevin rce(s) Supporting Document(s) Bacteria identified in Blood by Culture [facility] NO GROWTH AFTER 5 DAYS ID Date Data Source [id number] 05/07/2019 02:15:00 PM [facility] Name Value Range Interpretation Code Description Data Kevin rce(s) Supporting Document(s) CULTURE BLOOD [facility] _CULTURE BLOOD_ [place] [address] CLIA# [id number] SEE SCANNED REPORT{ PRELIM ID Date Data Source [id number] 05/04/2019 09:13:00 PM [facility] Name Value Range Interpretation Code Description Data Kevin rce(s) Supporting Document(s) CULTURE WOUND [facility] .WOUND CULTURE_{ SPECIMEN KEVIN RCE : TEST PERFORMED AT [address] [address] CLIA# [id number] SEE SCANNED REPORT Result: ID Date Data Source [id number] 05/01/2019 01:59:00 PM EST [facility] Name Value Range Interpretation Code Description Data Kevin rce(s) Supporting Document(s) Influenza virus A Ag [Presence] in Nasopharynx by Immunoassa y NEGATIVE NORMAL: NEGATIVE [facility] Influenza virus B Ag [Presence] in Nasopharynx by Immunoassa y NEGATIVE NORMAL: NEGATIVE [facility] NEGATIVENEGATIVE PROCEDURAL CO NTROL VALID KIT LOT # _[id number] 05/01/19.1359.MT . KIT EXP DATE _02/02/20 05/01/19.1359.MT .The Influenza A & B assay is a rapid molecular in vitro diagnostic testutilizing an isothermal nucleic acid amplification technology for thequalitative detection of influenza A and B viral RNA.Negative results do not preclude influenza virus infection and should not beused as the sole basis for diagnosis, treatment or other patient managementdecisions. ID Date Data Source [id number] 05/07/2019 02:15:00 PM [facility] Name Value Range Interpretation Code Description Data Kevin rce(s) Supporting Document(s) CULTURE BLOOD [facility] spital _CULTURE BLOOD_{ PRELIM TEST PERFORMED AT [address] [address] [facility]# [id number] SEE SCANNED REPORT ID Date Data Source [id number] 05/01/2019 01:44:00 PM EST [facility] Name Value Range Interpretation Code Description Data Kevin rce(s) Supporting Document(s) COMPREHENSIVE METABOLIC PANEL [facility] COMPREHENSIVE METABOLIC PANEL Sodium [Moles/volume] in Serum or Plasma 133 mEq/L 134 - 153 L [facility] Potassium [Moles/volume] in Serum or Plasma 3.4 mEq/L 3.6 - 5.0 L [facility] Chloride [Moles/volume] in Serum or Plasma 90 mEq/L 98 - 107 L [facility] Carbon dioxide, total [Moles/volume] in Serum or Plasma 28 MEQ/L 22 - 30 [facility] Glucose [Mass/volume] in Serum or Plasma 118 MG/DL 65 - 110 H [facility] BUN 23 MG/DL 7 - 21 H [facility] al Creatinine [Mass/volume] in Serum or Plasma 11.1 MG/DL 0.7 - 1.5 HH [facility] BUN/CREAT 2 8 - 27 L [facility] Protein [Mass/volume] in Serum or Plasma 6.2 G/DL 6.3 - 8.2 L [facility] Albumin [Mass/volume] in Serum or Plasma 3.7 G/DL 3.9 - 5.0 L [facility] Globulin [Mass/volume] in Serum by calculation 2.5 GM/DL 2.4 - 3.2 [facility] A/G RATIO 1.5 0.8 - 2.0 [facility] Calcium [Mass/volume] in Serum or Plasma 11.0 MG/DL 8.4 - 10.2 H [facility] Bilirubin.total [Mass/volume] in Serum or Plasma 0.7 MG/DL 0.2 - 1.3 [facility] Alkaline phosphatase [Enzymatic activity/volume] in Serum or Plasma 74 U/L 38 - 126 [facility] Aspartate aminotransferase [Enzymatic activity/volume] in Serum or Plasma 10 U/L 5 - 40 [facility] Alanine aminotransferase [Enzymatic activity/volume] in Seru m or Plasma 13 U/L 7 - 56 [facility] Anion gap 3 in Serum or Plasma 15.0 mmol/L 8.0 - 16.0 [facility] AGE 78 yrs [facility] NON-AA GFR 5 mL/min [facility] AFR AMER GFR 6 mL/min [facility] Male GFR In terprentation 20-49 [...] >32 mL/min Normal ID Date Data Source [id number] 05/01/2019 01:43:00 PM [facility] Value Range Interpretation Code Description Data Kevin rce(s) Supporting Document(s) BNP 21632 PG/ML 0 - 450 H [facility] ital ID Date Data Source [id number] 05/01/2019 01:43:00 PM [facility] Value Range Interpretation Code Description Data Kevin rce(s) Supporting Document(s) TROPONIN T 0.09 NG/ML 0.00 - 0.10 [facility] spital TROPONIN T0.1 ng/ml Recommended as the c linical threshold value forTroponin T. ID Date Data Source [id number] 05/01/2019 01:41:00 PM [facility] Value Range Interpretation Code Description Data Kevin rce(s) Supporting Document(s) Creatine kinase [Enzymatic activity/volume] in Serum or Plasma 6 2 U/L 30 - 170 [facility] ID Date Data Source [id number] 05/01/2019 01:40:00 PM [facility] Value Range Interpretation Code Description Data Kevin rce(s) Supporting Document(s) Lipase [Enzymatic activity/volume] in Serum or Plasma 33 U/L 13 - 60 [facility] ID Date Data Source [id number] 05/01/2019 01:28:00 PM EST [facility] Name Value Range Interpretation Code Description Data Kevin rce(s) Supporting Document(s) Fibrin D-dimer FEU [Mass/volume] in Platelet poor plasma 0.71 ug /mL 0.27 - 0.50 H [facility] ID Date Data Source [id number] 05/01/2019 01:25:00 PM [facility] Name Value Range Interpretation Code Description Data Kevin rce(s) Supporting Document(s) Prothrombin time (PT) 13.2 SECONDS 11.0 - 15.5 [facility] INR in Platelet poor plasma by Coagulation assay 0.99 0.93 - 1. 23 [facility] \\BLDo\\INR INTERPRETATION\\BLDx\\ Therapeutic range for Coumadin and related oral anticoagulants. - International Normalized Ratio (INR): 2.0 - 3.0 for Venous Thrombosis, Pulmonary Embolus, Tissue heart valves, Acute CT, Atrial Fibrillation, Valvular heart disease and recurrent Systemic Embolism. -International Normalized Ratio (INR): 2.5 - 3.5 for Mechanical Prosthetic valve. ID Date Data Source [id number] 05/01/2019 01:25:00 PM [facility] Name Value Range Interpretation Code Description Data Kevin rce(s) Supporting Document(s) aPTT in Blood by Coagulation assay 29.7 SECONDS 24.8 - 36.7 [facility] ID Date Data Source [id number] 05/01/2019 01:19:00 PM [facility] Value Range Interpretation Code Description Data Kevin rce(s) Supporting Document(s) Lactate [Moles/volume] in Serum or Plasma 1.6 MMOL/L 0.2 - 2.2 [facility] ID Date Data Source [id number] 05/01/2019 01:19:00 PM [facility] Value Range Interpretation Code Description Data Kevin rce(s) Supporting Document(s) CBC W/AUTOMATED DIFF [facility] COMPLETE BLOOD COUNT Leukocytes [#/volume] in Blood by Automated count 7.7 10^3/uL 4.2 - 1 1.0 [facility] Erythrocytes [#/volume] in Blood by Automated count 3.59 10^6/uL 4. 50 - 6.30 L [facility] Hemoglobin [Mass/volume] in Blood 11.6 g/dL 14.0 - 16.0 L [facility] Hematocrit [Volume Fraction] of Blood by Automated count 34.2 % 4 1.0 - 51.0 L [facility] Erythrocyte mean corpuscular volume [Entitic volume] by Auto mated count 95.3 fL 80.0 - 94.0 H [facility] Erythrocyte mean corpuscular hemoglobin [Entitic mass] by Automated count 32.3 pg 27.0 - 34.0 [facility] Erythrocyte mean corpuscular hemoglobin concentration [Mass/volume] by Automated count 33.9 g/dL 31.0 - 36.0 [facility] Erythrocyte distribution width [Ratio] by Automated count 15.4 % 11.5 - 14.8 H [facility] Platelets [#/volume] in Blood by Automated count 238 10^3/uL 150 - 45 0 [facility] Platelet mean volume [Entitic volume] in Blood by Automated count 9.9 fL 7.4 - 10.4 [facility] Neutrophils/100 leukocytes in Blood by Automated count 49.4 % 37. 0 - 80.0 [facility] Lymphocytes/100 leukocytes in Blood by Manual count 22.7 % 25.0 - 40.0 L [facility] Monocytes/100 leukocytes in Blood by Automated count 8.0 % 3.0 - 8.0 [facility] Eosinophils/100 leukocytes in Blood by Automated count 19.0 % 0.0 - 7.0 H [facility] Basophils/100 leukocytes in Blood by Automated count 0.5 % 0.0 - 2.0 [facility] %IG 0.4 % 0.0 - 0.0 [facility] %NRBC 0.0 % 0.0 - 0.0 [facility] al Neutrophils [#/volume] in Blood by Automated count 3.79 10^3/uL 2.00 - 6.90 [facility] Lymphocytes [#/volume] in Blood by Automated count 1.74 10^3/uL 0.60 - 3.40 [facility] Monocytes [#/volume] in Blood by Automated count 0.61 10^3/uL 0.00 - 0.90 [facility] Eosinophils [#/volume] in Blood by Automated count 1.46 10^3/uL 0.00 - 0.70 H [facility] Basophils [#/volume] in Blood by Automated count 0.04 10^3/uL 0.00 - 0.20 [facility] #IG 0.03 10^3/uL 0.00 - 0.10 [facility] #NRBC 0.00 10^3/uL 0.00 - 0.00 [facility] MANUAL DIFF NOT INDICATED [facility] RBC MORPH NOT INDICATED [facility] ID Date Data Source [id number] 04/14/2019 02:17:00 PM EST [facility] Name Value Range Interpretation Code Description Data Kevin rce(s) Supporting Document(s) [facility] WOUND CULTURE [facility] _WOUND CULTURE_{ SPECIME N SOURCE : Result: Procedure Social History Code Duration Value Status Description Data Source(s ) Alcohol intake 05/08/2020 12:00:00 AM EST Not Currently completed [facility] Cigarette pack-years 05/08/2020 12:00:00 AM EST UNK completed [facility] Cigarettes smoked current (pack per day) - Reported 05/08/19 12:00:00 AM EST UNK completed [facility] Smoking 05/08/2020 12:00:00 AM EST Former smoker completed Former smoker [facility] Alcohol intake 2020 12:00:00 AM EST Not Currently completed [facility] Cigarette pack-years 2020 12:00:00 AM EST UNK completed [facility] Cigarettes smoked current (pack per day) - Reported 05/02/19 12:00:00 AM EST UNK completed [facility] Smoking 2020 12:00:00 AM EST Former smoker completed Former smoker [facility] Alcohol intake 04/15/2020 12:00:00 AM EST Yes completed [facility] Smoking 04/15/2020 12:00:00 AM EST Former smoker completed Former smoker [facility] Smoking 03/30/2020 09:30:00 AM EST Denies Ever Smoked complete d Denies Ever Smoked [facility] Smoking 02/21/2020 12:00:00 AM EST Patient is a former smoker completed Patient is a former smoker [facility] ([facility] Smoking 02/09/2020 03:55:00 PM EST Denies Ever Smoked complete d Denies Ever Smoked [facility] Smoking 08/24/2019 12:00:00 AM EDT Never Smoker completed Never S moker eCW1 ([facility]) Smoking 08/24/2019 12:00:00 AM EDT Never Smoker completed Never S moker eCW1 ([facility]) Vital Signs ID Date Data Source UNK Name Value Range Interpretation Code Description Data Source(s) Body mass index (BMI) [Ratio] 24.0 kg/m2 24.0 k g/m2 [facility] ([facility], ) Body weight 160.00 [lb_av] 160.00 [lb_av] CHRISSIEEN T ([facility], ) Body height 68.5 [in_i] 68.5 [in_i] [facility] 5'8.50" Diastolic blood pressure 67 mm[Hg] 67 mm[Hg] [facility] Systolic blood pressure 98 mm[Hg] 98 mm[Hg] M EDCHANO ([facility], ) Body surface area Derived from formula 1.87 m2 1.87 m2 [facility] ([facility], ) Body weight 72.576 kg 72.576 kg [facility] [place] body weight 154 [lb_av] 154 [lb_av] MEDEN T ([facility], ) Oxygen saturation in Arterial blood by Pulse oximetry 97 % 97 % [facility] Respiratory rate 22 /min 22 /min [facility] Body temperature 36.39 Reema 36.39 Reema [facility] Heart rate 82 /min 82 /min [facility] Diastolic blood pressure 59 mm[Hg] 59 mm[Hg] [facility] Systolic blood pressure 108 mm[Hg] 108 mm[Hg] [facility] Body mass index (BMI) [Ratio] 24.33 kg/m2 24.33 kg/m2 [facility] Body weight 72.576 kg 72.576 kg [facility] Body height 172.7 cm 172.7 cm [facility] Oxygen saturation in Arterial blood by Pulse oximetry 100 % 100 % [facility] Body mass index (BMI) [Ratio] 24.33 kg/m2 24.33 kg/m2 [facility] Body weight 72.576 kg 72.576 kg [facility] Body height 172.7 cm 172.7 cm [facility] Heart rate 95 /min 95 /min [facility] Diastolic blood pressure 73 mm[Hg] 73 mm[Hg] [facility] 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 Respiratory rate 16 /min 16 /min [facility] Diastolic blood pressure 60 mm[Hg] 60 mm[Hg] [facility] Systolic blood pressure 102 mm[Hg] 102 mm[Hg] [facility] Deprecated Oxygen saturation in Capillary blood by Oximetry 98 % Normal (applies to non-numeric results) 98 % [facility] Heart rate 81 min Normal (applies to non-numeric resul ts) 81 min [facility] Diastolic blood pressure 77 mm[Hg] Normal (applies to non-numeric results) 77 mm[Hg] [facility] Systolic blood pressure 118 mm[Hg] Normal (applies t o non-numeric results) 118 mm[Hg] [facility] Body temperature 37 reema Normal (applies to non-numeric results) 37 reema [facility] Respiratory rate 18 min Normal (applies to non-numeric results) 18 min [facility] Body weight Measured 76.3 kg Normal (applies to non-num romel results) 76.3 kg [facility] Body height 171.9072 cm Normal (applies to non-numeric res ults) 171.9072 cm [facility] Body mass index (BMI) [Ratio] 25.58 kg/m2 No rmal (applies to non-numeric results) 25.58 kg/m2 [facility] Body surface area Derived from formula 1.84 m2 1.84 m2 [facility] ([facility]) Body weight 70.308 kg 70.308 kg [facility] ([facility]) [place] body weight 154 [lb_av] 154 [lb_av] [facility] Body mass index (BMI) [Ratio] 23.2 kg/m2 23.2 k g/m2 [facility] ([facility]) Body weight 155.00 [lb_av] 155.00 [lb_av] [facility] Body height 68.5 [in_i] 68.5 [in_i] [facility] ([facility]) 5'8.50" Diastolic blood pressure 60 mm[Hg] 60 mm[Hg] [facility] ([facility]) Systolic blood pressure 104 mm[Hg] 104 mm[Hg] M EDENT ([facility]) Diastolic blood pressure--sitting 80 mm[Hg] 80 mm[Hg] MED[facility] ([facility]) large cuff, Ra Systolic blood pressure--sitting 148 mm[Hg] 148 mm[Hg] [facility] ([facility]) large cuff, Ra Heart rate 86 /min 86 /min [facility] Body height 68 [in_i] 68 [in_i] [facility] 5'8" Body temperature 36.7 reema Normal (applies to non-numeric results) 36.7 reema [facility] Respiratory rate 18 min Normal (applies to non-numeric results) 18 min [facility] Deprecated Oxygen saturation in Capillary blood by Oximetry 99 % Normal (applies to non-numeric results) 99 % [facility] Heart rate 97 min Normal (applies to non-numeric resul ts) 97 min [facility] Diastolic blood pressure 84 mm[Hg] Normal (applies to non-numeric results) 84 mm[Hg] [facility] Systolic blood pressure 128 mm[Hg] Normal (applies t o non-numeric results) 128 mm[Hg] [facility] Body weight Measured 80.4 kg Normal (applies to non-num romel results) 80.4 kg [facility] Body height 171.9072 cm Normal (applies to non-numeric res ults) 171.9072 cm [facility] Body mass index (BMI) [Ratio] 23.83 kg/m2 No rmal (applies to non-numeric results) 23.83 kg/m2 [facility] [place] body weight 154 [lb_av] 154 [lb_av] [facility] T ([facility], ) Body height 68.5 [in_i] 68.5 [in_i] [facility] ([facility]) 5'8.50" Diastolic blood pressure 50 mm[Hg] 50 mm[Hg] [facility] ([facility]) Systolic blood pressure 88 mm[Hg] 88 mm[Hg] [facility] ([facility]) Body height 68.5 [in_i] 68.5 [in_i] [facility] ([facility]) 5'8.50" Heart rate 53 /min 53 /min [facility] ([facility]) Diastolic blood pressure 64 mm[Hg] 64 mm[Hg] [facility] ([facility]) Systolic blood pressure 84 mm[Hg] 84 mm[Hg] [facility] ([facility]) Body weight 76.205 kg 76.205 kg [facility] ([facility]) Body mass index (BMI) [Ratio] 25.2 kg/m2 25.2 k g/m2 [facility] ([facility]) Body weight 168.00 [lb_av] 168.00 [lb_av] [facility] T ([facility]) Stated Body height 68.5 [in_i] 68.5 [in_i] [facility] ([facility]) 8.50" Diastolic blood pressure 60 mm[Hg] 60 mm[Hg] [facility] ([facility]) Systolic blood pressure 100 mm[Hg] 100 mm[Hg] [facility] ([facility]) Body weight 74.844 kg 74.844 kg [facility] ([facility]) Body mass index (BMI) [Ratio] 24.7 kg/m2 24.7 k g/m2 [facility] ([facility]) Body weight 165.00 [lb_av] 165.00 [lb_av] [facility] T ([facility]) Stated Body height 68.5 [in_i] 68.5 [in_i] [facility] ([facility]) .50" Diastolic blood pressure 60 mm[Hg] 60 mm[Hg] [facility] ([facility]) Systolic blood pressure 88 mm[Hg] 88 mm[Hg] [facility] ([facility]) Body weight 80.287 kg 80.287 kg [facility] ([facility]) Body mass index (BMI) [Ratio] 26.5 kg/m2 26.5 k g/m2 [facility] ([facility]) Body weight 177.00 [lb_av] 177.00 [lb_av] [facility] T ([facility]) per patient Body height 68.5 [in_i] 68.5 [in_i] [facility] ([facility]) 8.50" Diastolic blood pressure 68 mm[Hg] 68 mm[Hg] [facility] ([facility]) Systolic blood pressure 110 mm[Hg] 110 mm[Hg] [facility] ([facility]) Diastolic blood pressure--sitting 56 mm[Hg] 56 mm[Hg] [facility] ([facility] adult cuff, Ra Systolic blood pressure--sitting 128 mm[Hg] 128 mm[Hg] [facility] ([facility]) adult cuff, Ra Heart rate 87 /min 87 /min [facility] ([facility]) Body mass index (BMI) [Ratio] 26.5 kg/m2 26.5 k g/m2 [facility] ([facility]) Body height 68 [in_i] 68 [in_i] [facility] ([facility]) 5'8" Body weight 174.00 [lb_av] 174.00 [lb_av] [facility] T ([facility]) Diastolic blood pressure 50 mm[Hg] 50 mm[Hg] eCW1 ([facility]) Systolic blood pressure 91 mm[Hg] 91 mm[Hg] e CW1 ([facility]) Body temperature 98.5 [degF] 98.5 [degF] eCW1 ( [facility]) Respiratory rate 18 /min 18 /min eCW1 (Replaced by [facility]) Heart rate 86 /min 86 /min eCW1 ([facility]) Body mass index (BMI) [Ratio] 26.45 kg/m2 26.45 kg/m2 eCW1 ([facility]) Body height 68 [in_us] 68 [in_us] eCW1 ([facility]) Body weight Measured 174 [lb_av] 174 [lb_av] eC W1 ([facility]) Diastolic blood pressure 68 mm[Hg] 68 mm[Hg] eCW1 ([facility]) Systolic blood pressure 145 mm[Hg] 145 mm[Hg] e CW1 ([facility]) Body temperature 98.8 [degF] 98.8 [degF] eCW1 ( [facility]) Respiratory rate 18 /min 18 /min eCW1 (Replaced by [facility]) Heart rate 63 /min 63 /min eCW1 ([facility]) Body mass index (BMI) [Ratio] 27.06 kg/m2 27.06 kg/m2 eCW1 ([facility]) Body height 68 [in_us] 68 [in_us] eCW1 ([facility]) Body weight Measured 178 [lb_av] 178 [lb_av] eC W1 ([facility]) Body weight 78.019 kg 78.019 kg [facility] ([facility]) Body mass index (BMI) [Ratio] 25.8 kg/m2 25.8 k g/m2 [facility] ([facility]) Body weight 172.00 [lb_av] 172.00 [lb_av] MEDEN T ([facility]) stated weight Body height 68.5 [in_i] 68.5 [in_i] [facility] ([facility]) 5'8.50" Diastolic blood pressure 60 mm[Hg] 60 mm[Hg] [facility] ([facility]) Systolic blood pressure 114 mm[Hg] 114 mm[Hg] M EDENT ([facility]) Diastolic blood pressure 92 mm[Hg] 92 mm[Hg] eCW1 ([facility]) Systolic blood pressure 159 mm[Hg] 159 mm[Hg] e CW1 ([facility]) Body temperature 97.4 [degF] 97.4 [degF] eCW1 ( [facility]) Respiratory rate 18 /min 18 /min eCW1 (Replaced by [facility]) Heart rate 80 /min 80 /min W1 ([facility]) Body mass index (BMI) [Ratio] 27.06 kg/m2 27.06 kg/m2 W1 ([facility]) Body height 68 [in_us] 68 [in_us] eCW1 ([facility]) Body weight Measured 178 [lb_av] 178 [lb_av] eC W1 ([facility]) Body mass index (BMI) [Ratio] 25.24 kg/m2 25.24 kg/m2 W1 ([facility]) Body height 68 [in_us] 68 [in_us] eCW1 ([facility]) Body weight Measured 166 [lb_av] 166 [lb_av] eC W1 ([facility]) Body weight 78.019 kg 78.019 kg MEDENT ([facility]) Body mass index (BMI) [Ratio] 25.8 kg/m2 25.8 k g/m2 [facility] ([facility]) Body weight 172.00 [lb_av] 172.00 [lb_av] MEDEN T ([facility]) Body height 68.5 [in_i] 68.5 [in_i] [facility] ([facility]) 5'8.50" Body temperature 96.2 [degF] 96.2 [degF] [facility] Diastolic blood pressure 60 mm[Hg] 60 mm[Hg] [facility] ([facility]) Systolic blood pressure 90 mm[Hg] 90 mm[Hg] M EDENT ([facility]) Body mass index (BMI) [Ratio] 25.69 kg/m2 25.69 kg/m2 W1 ([facility]) Body height 68 [in_us] 68 [in_us] eCW1 ([facility]) Body weight Measured 169 [lb_av] 169 [lb_av] eC W1 ([facility]) Diastolic blood pressure 63 mm[Hg] 63 mm[Hg] eCW1 ([facility]) Systolic blood pressure 117 mm[Hg] 117 mm[Hg] e CW1 ([facility]) Body temperature 98.2 [degF] 98.2 [degF] eCW1 ( [facility]) Respiratory rate 16 /min 16 /min eCW1 (Replaced by [facility]) Heart rate 87 /min 87 /min eCW1 ([facility]) Body mass index (BMI) [Ratio] 25.69 kg/m2 25.69 kg/m2 eCW1 ([facility]) Body height 68 [in_us] 68 [in_us] eCW1 ([facility]) Body weight Measured 169 [lb_av] 169 [lb_av] eC W1 ([facility]) Diastolic blood pressure 66 mm[Hg] 66 mm[Hg] eCW1 ([facility]) Systolic blood pressure 117 mm[Hg] 117 mm[Hg] e CW1 ([facility]) Body temperature 97.8 [degF] 97.8 [degF] eCW1 ( [facility]) Respiratory rate 17 /min 17 /min eCW1 (Replaced by [facility]) Heart rate 81 /min 81 /min eCW1 ([facility]) Body mass index (BMI) [Ratio] 27.21 kg/m2 27.21 kg/m2 eCW1 ([facility]) Body height 68 [in_us] 68 [in_us] eCW1 ([facility]) Body weight Measured 179 [lb_av] 179 [lb_av] eC W1 ([facility]) Body weight 80.741 kg 80.741 kg [facility] ([facility], ) Body mass index (BMI) [Ratio] 26.7 kg/m2 26.7 k g/m2 [facility] ([facility], ) Body weight 178.00 [lb_av] 178.00 [lb_av] MEDEN T ([facility], ) Body height 68.5 [in_i] 68.5 [in_i] [facility] ([facility], ) 5'8.50" Diastolic blood pressure 80 mm[Hg] 80 mm[Hg] [facility] ([facility]) Systolic blood pressure 121 mm[Hg] 121 mm[Hg] M EDENT ([facility], ) Diastolic blood pressure 85 mm[Hg] 85 mm[Hg] eCW1 ([facility]) Systolic blood pressure 174 mm[Hg] 174 mm[Hg] e CW1 ([facility]) Body temperature 96.5 [degF] 96.5 [degF] eCW1 ( [facility]) Respiratory rate 16 /min 16 /min eCW1 (Replaced by [facility]) Heart rate 76 /min 76 /min eCW1 ([facility]) Body mass index (BMI) [Ratio] 28.28 kg/m2 28.28 kg/m2 W1 ([facility]) Body height 68 [in_us] 68 [in_us] eCW1 ([facility]) Body weight Measured 186 [lb_av] 186 [lb_av] eC W1 ([facility]) Body weight 84.370 kg 84.370 kg [facility] ([facility], ) Body mass index (BMI) [Ratio] 27.9 kg/m2 27.9 k g/m2 [facility] ([facility]) Body weight 186.00 [lb_av] 186.00 [lb_av] MEDEN T ([facility], ) Body height 68.5 [in_i] 68.5 [in_i] [facility] ([facility]) 5'8.50" Patient Treatment Plan of Care Planned Activity Planned Date Details Description Data Source (s) COLLAGENASE 0.25 UNT/MG Topical Ointment [Santyl] 08/03/2019 12: 00:00 AM EDT eCW1 ([facility]) tiotropium 0.018 MG/ACTUAT Inhalant Powder [facility] Prednisone 20 MG Oral Tablet [facility] Albuterol 0.833 MG/ML / Ipratropium [place] 0.167 MG/ML Inhalant So lution [facility] 12 HR Guaifenesin 600 MG Extended Release Oral Tablet [facility]
[2020-05-28] MEDS: DOCUSATE SODIUM 100MG CAPSULE PO SCH (23:25)
[2020-05-28] MEDS: ACETAMINOPHEN TAB 650MG DOSE (2X325MG) PO PRN (23:26)
[2020-05-28] MEDS: SENNA 8.6 MG TAB (SENOKOT) PO SCH (23:26)
[2020-05-28] MEDS ORDERED: SODIUM CHLORIDE 0.9% INJ 10 ML SYR IV PRN (23:35)
[2020-05-29 06:51] VITALS: BP 126/80
[2020-05-29] MEDS ORDERED: SODIUM CHLORIDE 0.9% 1000ML IV PRN (07:05)
[2020-05-29] MEDS ORDERED: DARBEPOETIN 100 MCG/0.5 ML *DIALYSIS* SYRINGE (J0882) IV SCH (07:05)
[2020-05-29] MEDS: IPRATROPIUM 0.5MG/ALBUTEROL 2.5MG INH SOL UD 3ML (DUONEB) NEB SCH ×3 (07:12→20:00)
[2020-05-29] MEDS: ACETAMINOPHEN TAB 650MG DOSE (2X325MG) PO PRN ×2 (07:43→20:19)
[2020-05-29 08:07] LABS: ALBUMIN 1.9 GM/DL (3.2-5.2); BILIRUBIN,TOTAL 0.2 MG/DL (0.2-1.0); CALCIUM LEVEL 8.1 MG/DL (8.8-10.2); CREATININE FOR GFR 11.7 MG/DL (0.70-1.30); GLOMERULAR FILTRATION RATE 5.5 (>42); POTASSIUM SERUM 4.1 MEQ/L (3.5-5.1); TOTAL PROTEIN 5.3 GM/DL (6.4-8.2)
[2020-05-29] MEDS: SYMBICORT 160/4.5MCG INHALER 6GM INH SCH ×2 (08:33→20:15)
[2020-05-29] MEDS: HEPARIN SOD (PORCINE) 5000UNITS/ML 1ML VIAL/SYRINGE SC SCH ×3 (09:00→20:18)
[2020-05-29] MEDS: REMEDY PHYTOPLEX Z-GUARD PASTE 113GM TUBE (FROM STOREROOM PRODUCT) TOP SCH ×3 (09:00→20:19)
--- NOTE | 2020-05-29 09:31 | IPNPDOC ---
Date Seen The patient was seen on 05/29/20. Progress Note SUBJECTIVE: Patient seen on 05/29. 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 Also has history of CAD, CHF, GERD, ESRD requiring dialysis, and hypotension. Patient has been moved to ARU from medical floors to continue PT/OT. As of today, patient is resting comfortably and states he continues to feel improved and has no acute complaints. Patient denies SOB, chest pain, fevers, chills, N/V/D, uncontrolled pain. Patient states that his last bowel movement was yesterday. Patient was recently admitted to [facility] on 05/23 and remain inpatient for R below the knee amputation with Dr. Canseco. Patient also had a tunneled catheter placement in the R femoral vein for HD. He will be initiated on hemodialyses after transfer to acute rehabilitation unit on 05/28. OBJECTIVE PHYSICAL EXAMINATION: VITAL SIGNS: Please see below. GENERAL: [Patient resting comfortably in bed.] HEENT: [No signs of rash or lesion on head/neck. ] CARDIOVASCULAR: [Chest rises and falls symmetrically without distress. Auscultation reveals RRR without murmurs, rubs or gallops. Chest port on left side that has been accessed, without surrounding erythema or drainage.]. RESPIRATORY: [No distress or accessory muscle use noted. Clear air flow auscu ltated. No wheezes, rales or rhonchi appreciated.]. ABDOMINAL: [Soft, non tender.] EXTREMITIES: [Bandages applied to right sided BKA site in tact and dry. L side with BKA] Right femoral permacath NEUROLOGICAL: [A+Ox4. Patient is responsive to questioning. Speech clear. No focal deficits noted.] PSYCHOLOGICAL: [Patients mood and affect appears appropriate.] LABORATORY DATA, IMAGING STUDIES, MICROBIOLOGY: Please see below. Echocardiogram: [Most recent ECHO shows EF of 20%]. DVT prophylaxis ordered?: [Y] ASSESSMENT AND PLAN: This is a 80 y/o male who recently underwent right sided BKA for atherosclerosis of stony river artery and gangrene of foot. PROBLEMS: 1. [Recent right sided BKA]: - Patient to continue working with PT/OT - No evidence of infection - Continue dressing changes - Vascular surgery on consultation 2. [CAD]: - Continue anticoagulation regiment of clopidogrel and heparin 3. [ESRD]: - Patient will continue dialysis therapy as scheduled - Nephrology had been consulted in this case 4. CHF: - No signs of exacerbation - Continue to monitor vitals. 5. Hypotension: - continue midodrine 6. GERD: - c/w Omeprazole 7. Hyperlipidemia: - c/w Atorvastatin 8. COPD: - No evidence of exacerbation - c/w Spiriva and albuterol prn 9. Aortic stenosis: Mood disorder - c/w Nortriptyline 10. Hx of prostate and renal ca: - Will have outpatient follow up with oncology DVT prophylaxis - c/w Heparin DISPOSITION: - [as per aru]. VS, I&O, 24H, Fishbone Vital Signs/I&O Vital Signs Date Time Temp Pulse Resp B/P (MAP) Pulse Ox O2 Delivery O2 Flow Rate FiO2 05/29/20 06:51 97.4 89 18 126/80 (95) 100 Room Air I&O- Last 24 Hours up to 6 AM 05/29/20 05:58 Intake Total 120 ml Balance 120 ml Laboratory Data 24H LABS Laboratory Tests 2 05/29/20 06:46: Anion Gap 15, Glomerular Filtration Rate 5.5L, Calcium Level 8.1L, Total Bilirubin 0.2, Aspartate Amino Transf (AST/SGOT) 51H, Alanine Aminotransferase (ALT/SGPT) 19, Alkaline Phosphatase 156H, Total Protein 5.3L, Albumin 1.9L, Albumin/Globulin Ratio 0.6 CBC/BMP Laboratory Tests 05/29/20 06:46 Attending Note Attending Note I Rosamaria Curry, have independently seen and examined this patient and agree with the note written above. I have made edits where necessary, and agree with the assessment and plan. DORY ROBLES May 29, 2020 08:32 ROSAMARIA CURRY MD May 29, 2020 18:04
[2020-05-29] MEDS: NORTRIPTYLINE 10 MG CAP PO SCH ×3 (09:32→20:17)
[2020-05-29] MEDS: DOCUSATE SODIUM 100MG CAPSULE PO SCH ×2 (09:32→20:17)
[2020-05-29] MEDS: (RENVELA) SEVELAMER **CARBONate** 800 MG TAB PO SCH ×3 (09:32→17:46)
[2020-05-29] MEDS: OMEPRAZOLE 20 MG CAP PO SCH (09:32)
[2020-05-29] MEDS: ASPIRIN 81MG ENTERIC TABLET PO SCH (09:32)
[2020-05-29] MEDS: CLOPIDOGREL 75 MG TAB PO SCH (09:32)
[2020-05-29] MEDS: SODIUM CHLORIDE 0.9% INJ 10 ML SYR IV SCH (09:33)
--- NOTE | 2020-05-29 09:50 | IPNPDOC ---
Text Note Date of Service The patient was seen on 05/29/20. NOTE Vascular surgery. Dr Canseco Patient seen and examined postoperative day 6 status post right below-knee amputation. Pain controlled currently, resting in bed. Strength seems to be better today. Extending the right knee well. Tolerated his dressing change without difficulty. The incision is clean dry and intact, appears to be healing well. The incision is re dressed with dry gauze, kerlix and KALEB wrap. Plan to continue with daily dressing changes with dry gauze, Kerlix, Kaleb wrap. Plan for staple removal 2 weeks postop. Plan for suture removal 3 weeks postop. The patient is status post right femoral PermCath placement as per Dr. Canseco 05/28/20. Hemodialysis as per nephrology well the patient is on ARU. Please let vascular surgery know anticipated discharge from ARU so that his PermCath can be removed prior to his discharge. VS,Fishbone, I+O VS, Fishbone, I+O Laboratory Tests 05/29/20 06:46 Vital Signs Date Time Temp Pulse Resp B/P (MAP) Pulse Ox O2 Delivery O2 Flow Rate FiO2 05/29/20 06:51 97.4 89 18 126/80 (95) 100 Room Air I&O- Last 24 Hours up to 6 AM 05/29/20 06:00 Intake Total 120 ml Balance 120 ml Puja Garcia May 29, 2020 09:50
[2020-05-29] MEDS: MIDODRINE 5 MG TAB PO SCH ×2 (12:01→17:45)
--- NOTE | 2020-05-29 12:39 | IPN ---
PROGRESS NOTE DATE: 05/29/2020 SUBJECTIVE: Patient was seen and examined at the bedside today morning. He was transferred to the rehabilitation unit yesterday. He got a tunneled right groin tunneled dialysis catheter placed as well. He reported the pain in the right below knee amputation site is significantly better. Today, patient is going to be dialyzed by the right groin catheter. OBJECTIVE: VITAL SIGNS: Temperature 97.4 degrees Fahrenheit, blood pressure 126/80, pulse 89, respiratory rate 18, saturating 100% on room air. INTAKE AND OUTPUT: Urine output is not recorded because he is anuric. Weight in the bed scale was 62.3 kg yesterday. PHYSICAL EXAMINATION: GENERAL: Patient is awake, alert, oriented times three, laying in the bed, no apparent distress. HEAD AND NECK EXAM: Extraocular muscles intact. Pupils equally round and reactive to light. Mucous membranes are moist. Neck is supple. There is no jugular venous distention (JVD). CARDIOVASCULAR: S1, S2. Regular rate. Patient has an ejection systolic ejection murmur, grade 3/6 in the aortic area. No edema of the bilateral lower extremities. RESPIRATORY: Chest is clear to auscultation bilaterally. Bilateral equal air entry. No rales or rhonchi. ABDOMEN: Soft. Positive bowel sounds. Nontender. He has a catheter in the left lower quadrant. MUSCULOSKELETAL: He has bilateral below knee amputations. Right-sided amputation is new and has a dressing. ARTERIOVENOUS (AV) ACCESS: He has a right groin tunneled hemodialysis catheter. CENTRAL NERVOUS SYSTEM (EVAPORATOR SUPERVISOR): No focal deficits. Power is 5/5 in bilateral upper extremities. LABORATORY REVIEW: CBC is pending. BMP done today showed sodium 141, potassium 4.1, chloride 100, bicarbonate 26, BUN 64, creatinine 11.7. CURRENT INPATIENT MEDICATIONS: Patient's medications are all reviewed by myself. No significant change in the medications today. ASSESSMENT AND PLAN: 1. End-stage renal disease. Patient is in rehabilitation unit and over here he cannot do peritoneal dialysis. He has been switched to hemodialysis. He will get the first session of hemodialysis today in the afternoon. 2. Severe systolic congestive heart failure. He is not on diuretics because of chronic hypotension and he does not have any kidneys. Volume status is optimized with dialysis. 3. Anemia in end-stage renal disease. Patient has been started on Aranesp and Venofer with dialysis. 4. Severe aortic stenosis status post balloon valvuloplasty. Patient will get a transcatheter aortic valve replacement (TAVR) procedure once he is discharged from the hospital. 5. Chronic kidney disease/mineral bone disease. Continue current dose of Renvela with meals.
[2020-05-29 13:59] LABS: BASO % 0.3 % (0.0-1.0); EOS # 0.3 10^3/uL (0.0-0.5); EOS % 3.4 % (0.0-3.0); HEMATOCRIT 33.4 % (42.0-52.0); HEMOGLOBIN 10.6 g/dl (13.5-17.5); MEAN CORPUSCULAR HEMOGLOBIN 30.8 pg (27.0-33.0); MEAN CORPUSCULAR HGB CONC 31.7 g/dl (32.0-36.5); MEAN CORPUSCULAR VOLUME 97.1 fl (80.0-96.0); MONO # 0.8 10^3/uL (0.0-0.8); MONO % 9.8 % (2.0-8.0); NEUTROPHILS # 4.5 10^3/uL (1.5-8.5); NEUTROPHILS % 59.2 % (36.0-66.0); PLATELET COUNT, AUTOMATED 194 10^3/uL (150-450); RED BLOOD COUNT 3.44 10^6/uL (4.30-6.10); WHITE BLOOD COUNT 7.6 10^3/uL (4.0-10.0)
[2020-05-29] MEDS: IRON SUCROSE 100MG 5ML VIAL (J1756 PER 1MG) IV SCH (14:47)
[2020-05-29] MEDS: SENNA 8.6 MG TAB (SENOKOT) PO SCH (20:17)
[2020-05-29] MEDS: ATORVASTATIN 20 MG TAB PO SCH (20:18)
[2020-05-29 20:20] VITALS: BP 136/75
[2020-05-30 05:37] VITALS: BP 121/71
[2020-05-30] MEDS: SYMBICORT 160/4.5MCG INHALER 6GM INH SCH ×2 (07:34→19:20)
[2020-05-30] MEDS: IPRATROPIUM 0.5MG/ALBUTEROL 2.5MG INH SOL UD 3ML (DUONEB) NEB SCH ×4 (07:34→19:20)
[2020-05-30] MEDS: (RENVELA) SEVELAMER **CARBONate** 800 MG TAB PO SCH ×3 (10:04→18:10)
[2020-05-30] MEDS: HEPARIN SOD (PORCINE) 5000UNITS/ML 1ML VIAL/SYRINGE SC SCH ×2 (10:05→21:00)
[2020-05-30] MEDS: CLOPIDOGREL 75 MG TAB PO SCH (10:50)
[2020-05-30] MEDS: OMEPRAZOLE 20 MG CAP PO SCH (10:50)
[2020-05-30] MEDS: NORTRIPTYLINE 10 MG CAP PO SCH ×3 (10:50→21:53)
[2020-05-30] MEDS: DOCUSATE SODIUM 100MG CAPSULE PO SCH ×2 (10:50→21:52)
[2020-05-30] MEDS: ASPIRIN 81MG ENTERIC TABLET PO SCH (10:50)
[2020-05-30] MEDS: MIDODRINE 5 MG TAB PO SCH ×2 (10:51→18:10)
[2020-05-30] MEDS: SODIUM CHLORIDE 0.9% INJ 10 ML SYR IV SCH (10:51)
[2020-05-30] MEDS: REMEDY PHYTOPLEX Z-GUARD PASTE 113GM TUBE (FROM STOREROOM PRODUCT) TOP SCH ×3 (10:52→21:52)
[2020-05-30] MEDS: CINACALCET 30 MG TAB (SENSIPAR) PO SCH (12:23)
[2020-05-30 14:00] VITALS: BP 123/78
--- NOTE | 2020-05-30 14:16 | IPN ---
PROGRESS NOTE DATE: 05/30/2020 SUBJECTIVE: Patient was seen and examined at the bedside today morning. He is afebrile, hemodynamically stable. He denies any active complaints. He was getting back from the restroom when I saw him. He was dialyzed yesterday. He tolerated the hemodialysis procedure well. OBJECTIVE: Vital signs: Temperature is 96.9 degrees Fahrenheit, blood pressure 121/71, pulse is 55, respiratory rate of 18, saturating 98% on room air. Intake and output: There is no urine output recorded. Ultrafiltration with hemodialysis is 1 liter. Weight in the bed scale is 60.9 kg. PHYSICAL EXAMINATION: GENERAL: Patient is awake, alert, oriented times three, sitting up in the wheelchair when I saw him. HEAD AND NECK: Extraocular muscles are intact. Pupils equally round and reactive to light. Mucous membranes are moist. Neck is supple. He has a left internal jugular (IJ) [id number]. CARDIOVASCULAR: S1, S2, regular rate. No edema of the lower extremities. RESPIRATORY: Chest is clear to auscultation bilaterally. ABDOMEN: Soft. Positive bowel sounds. Nontender. No organomegaly. GENITOURINARY: He has a right groin tunneled hemodialysis catheter. MUSCULOSKELETAL: He has bilateral below-knee amputations. CENTRAL NERVOUS SYSTEM: No focal deficit. Power is 5/5 in all extremities. LABORATORY REVIEW: CBC is from yesterday, and BMP is from yesterday s well. There are no new labs available at this time. CURRENT INPATIENT MEDICATIONS: Patient's medications were all reviewed by myself. No significant change in the medications today. ASSESSMENT AND PLAN: 1. End-stage renal disease. Patient is in rehabilitation, and he is getting hemodialysis currently. He was dialyzed yesterday. Next hemodialysis session will be done tomorrow morning. 2. Chronic hypotension. Continue current dose of midodrine 10 mg by mouth twice a day. 3. Severe systolic congestive heart failure. Volume status is optimized with dialysis. Patient does not make any urine, because he is status post bilateral nephrectomy. 4. Aortic stenosis. Patient is going to have transcatheter aortic valve replacement (TAVR) procedure done once he is discharged from the hospital. 5. Secondary hyperparathyroidism. Continue current dose of calcitriol. 6. Anemia and end-stage renal disease. Hemoglobin level was 10.6, which is optimal. He is getting Aranesp with dialysis.
[2020-05-30 20:00] VITALS: BP 125/74
[2020-05-30] MEDS: ACETAMINOPHEN TAB 650MG DOSE (2X325MG) PO PRN (21:53)
[2020-05-30] MEDS: SENNA 8.6 MG TAB (SENOKOT) PO SCH (21:53)
[2020-05-30] MEDS: ATORVASTATIN 20 MG TAB PO SCH (21:53)
[2020-05-31 05:21] VITALS: BP 128/79
[2020-05-31] MEDS: SYMBICORT 160/4.5MCG INHALER 6GM INH SCH ×2 (07:22→19:53)
[2020-05-31] MEDS: IPRATROPIUM 0.5MG/ALBUTEROL 2.5MG INH SOL UD 3ML (DUONEB) NEB SCH ×4 (07:22→19:57)
[2020-05-31] MEDS: MIDODRINE 5 MG TAB PO SCH ×2 (08:00→16:45)
[2020-05-31] MEDS ORDERED: SODIUM CHLORIDE 0.9% 1000ML IV PRN (08:40)
[2020-05-31] MEDS: DOCUSATE SODIUM 100MG CAPSULE PO SCH ×2 (08:53→21:00)
[2020-05-31] MEDS: ASPIRIN 81MG ENTERIC TABLET PO SCH (08:53)
[2020-05-31] MEDS: CLOPIDOGREL 75 MG TAB PO SCH (08:53)
[2020-05-31] MEDS: OMEPRAZOLE 20 MG CAP PO SCH (08:53)
[2020-05-31] MEDS: (RENVELA) SEVELAMER **CARBONate** 800 MG TAB PO SCH ×3 (08:53→16:44)
[2020-05-31] MEDS: HEPARIN SOD (PORCINE) 5000UNITS/ML 1ML VIAL/SYRINGE SC SCH ×2 (08:54→21:00)
[2020-05-31] MEDS: NORTRIPTYLINE 10 MG CAP PO SCH ×3 (08:54→21:01)
[2020-05-31] MEDS: SODIUM CHLORIDE 0.9% INJ 10 ML SYR IV SCH (08:55)
[2020-05-31] MEDS: REMEDY PHYTOPLEX Z-GUARD PASTE 113GM TUBE (FROM STOREROOM PRODUCT) TOP SCH ×3 (08:56→21:03)
[2020-05-31 09:20] LABS: BASO % 0.3 % (0.0-1.0); EOS # 0.3 10^3/uL (0.0-0.5); EOS % 5.7 % (0.0-3.0); HEMATOCRIT 29.9 % (42.0-52.0); HEMOGLOBIN 9.4 g/dl (13.5-17.5); LYMPH # 1.4 10^3/uL (1.5-5.0); LYMPH % 23.7 % (24.0-44.0); MEAN CORPUSCULAR HEMOGLOBIN 30.6 pg (27.0-33.0); MEAN CORPUSCULAR HGB CONC 31.4 g/dl (32.0-36.5); MEAN CORPUSCULAR VOLUME 97.4 fl (80.0-96.0); MONO # 0.6 10^3/uL (0.0-0.8); MONO % 10.3 % (2.0-8.0); NEUTROPHILS # 3.6 10^3/uL (1.5-8.5); NEUTROPHILS % 59.3 % (36.0-66.0); PLATELET COUNT, AUTOMATED 204 10^3/uL (150-450); RED BLOOD COUNT 3.07 10^6/uL (4.30-6.10)
[2020-05-31] MEDS: IRON SUCROSE 100MG 5ML VIAL (J1756 PER 1MG) IV SCH (10:09)
[2020-05-31 10:10] LABS: ALBUMIN 2.1 GM/DL (3.2-5.2); CALCIUM LEVEL 8.7 MG/DL (8.8-10.2); CREATININE FOR GFR 9.41 MG/DL (0.70-1.30); PHOSPHORUS LEVEL 6.8 MG/DL (2.5-4.9); POTASSIUM SERUM 7.1 MEQ/L (3.5-5.1)
[2020-05-31 14:00] VITALS: BP 128/74
--- NOTE | 2020-05-31 14:23 | IPN ---
PROGRESS NOTE DATE: 05/31/2020 SUBJECTIVE: Mauricio was seen and examined this morning in the hemodialysis unit receiving his treatment. He reports his physical therapy is going well. He denies and shortness of breath. His dialysis treatment has been uneventful. His labs resulted during his dialysis treatment and showed a markedly elevated potassium of 7.1 and we changed his dialysis back accordingly. PHYSICAL EXAMINATION: VITAL SIGNS: Temperature 98.8, pulse 86, respiratory rate 19, blood pressure 128/79, saturating 99% on room air. INTAKE AND OUTPUT: Intake yesterday was only recorded as 500 mL. Weight in the bed scale today is 61.2 kg. GENERAL: Patient is seen awake, alert, having breakfast during his dialysis treatment in no apparent distress. HEENT: Extraocular muscles are intact. Pupils are round and reactive to light. His mucosa is moist. Neck is supple. He has a left-sided [id number]. CARDIAC: S1, S2. There is a systolic murmur. Regular rate. There is no edema of the dependent areas nor of his stump. RESPIRATORY: Clear to auscultation bilaterally. ABDOMEN: Soft and nontender. There are bowel sounds. GENITOURINARY: Shows a right groin tunneled hemodialysis catheter. MUSCULOSKELETAL: He has bilateral below the knee amputations. CENTRAL NERVOUS SYSTEM (HOUSING COORDINATOR): He has no focal deficits. He is feeding himself breakfast. He is awake, alert and oriented and at baseline mentation. LABORATORY STUDIES: Today's laboratory studies show sodium 138, potassium 7.1, bicarbonate 26, phosphorus 6.8, albumin 2.1. Hemoglobin 9.4, platelets 204. INPATIENT MEDICATIONS: Reviewed by myself. He continues on the same medications as the past two days without any changes noted. PROBLEMS: 1. End-stage renal disease. Patient is in the rehabilitation unit and he is presently on hemodialysis. At home, he does peritoneal dialysis. He is dialyzed today with a 1.0 mEq potassium bath in view of significant hyperkalemia and I did extend the treatment time in view of significant potassium elevation and we are removing 1.5 liters with today's treatment. Patient is also receiving two runs of albumin for blood pressure support. 2. Chronic hypotension. Patient continues on midodrine 10 mg twice a day. I also gave him albumin with dialysis today to help with our ability to remove fluid. The patient himself is totally anuric. 3. Severe systolic congestive heart failure. Volume status is presently optimized and is regulated fully via hemodialysis, as the patient is status post bilateral nephrectomy; 1.5 liters of fluid are removed today. 4. Hyperkalemia. I am going to change his diet to 2 gram potassium restriction and he was dialyzed with a 1.0 mEq bath today and we extended his treatment time. 5. Aortic stenosis. The patient is pending transcatheter aortic valve replacement (TAVR), the next procedure to be done once he recuperates from his below the knee amputation. 6. Secondary hyperparathyroidism. His phosphorus is elevated. He continues on cinacalcet and Renvela. 7. Anemia related to end-stage kidney disease. The patient continues on Aranesp with dialysis.
[2020-05-31 16:50] VITALS: BP 118/71
[2020-05-31 20:00] VITALS: BP 121/78
[2020-05-31] MEDS: SENNA 8.6 MG TAB (SENOKOT) PO SCH (21:00)
[2020-05-31] MEDS: ATORVASTATIN 20 MG TAB PO SCH (21:02)
[2020-05-31] MEDS: ACETAMINOPHEN TAB 650MG DOSE (2X325MG) PO PRN (21:03)
[2020-06-01 05:12] VITALS: BP 104/59
[2020-06-01] MEDS: ASPIRIN 81MG ENTERIC TABLET PO SCH (07:46)
[2020-06-01] MEDS: OMEPRAZOLE 20 MG CAP PO SCH (07:46)
[2020-06-01] MEDS: (RENVELA) SEVELAMER **CARBONate** 800 MG TAB PO SCH ×3 (07:46→16:56)
[2020-06-01] MEDS: CLOPIDOGREL 75 MG TAB PO SCH (07:46)
[2020-06-01] MEDS: MIDODRINE 5 MG TAB PO SCH ×2 (07:46→16:56)
[2020-06-01] MEDS: NORTRIPTYLINE 10 MG CAP PO SCH ×3 (07:47→20:54)
[2020-06-01] MEDS: ACETAMINOPHEN TAB 650MG DOSE (2X325MG) PO PRN ×2 (07:47→20:59)
[2020-06-01] MEDS: SODIUM CHLORIDE 0.9% INJ 10 ML SYR IV SCH (07:48)
[2020-06-01] MEDS: REMEDY PHYTOPLEX Z-GUARD PASTE 113GM TUBE (FROM STOREROOM PRODUCT) TOP SCH ×3 (07:49→20:55)
[2020-06-01] MEDS: IPRATROPIUM 0.5MG/ALBUTEROL 2.5MG INH SOL UD 3ML (DUONEB) NEB SCH ×4 (08:00→19:54)
[2020-06-01] MEDS: SYMBICORT 160/4.5MCG INHALER 6GM INH SCH ×2 (08:00→19:54)
[2020-06-01] MEDS: HEPARIN SOD (PORCINE) 5000UNITS/ML 1ML VIAL/SYRINGE SC SCH ×2 (09:00→20:54)
[2020-06-01] MEDS: DOCUSATE SODIUM 100MG CAPSULE PO SCH ×2 (09:00→20:54)
[2020-06-01 14:00] VITALS: BP 129/60
--- NOTE | 2020-06-01 15:45 | IPN ---
NEPHROLOGY PROGRESS NOTE DATE: 06/01/2020 SUBJECTIVE: Mauricio was seen and examined this morning in the rehabilitation unit. He was dialyzed yesterday. He denies any issues. He does not have repeat labs drawn today. He denies any shortness of breath, nausea, vomiting or diarrhea. He is now on a potassium restricted diet. PHYSICAL EXAMINATION: VITAL SIGNS: Temperature 96.8, pulse 74, respiratory rate 18, blood pressure 104/59, saturating 99% on room air. Intake yesterday was not fully recorded. Dialysis yesterday removed 1.5 liters. GENERAL: Patient is seen awake, alert, lying in bed in the rehabilitation unit in no apparent distress. HEAD: Extraocular muscles are intact. Tongue is moist. NECK: Supple. He has a left-sided [id number]. HEART SOUNDS: S1, S2. There is a systolic murmur. Regular rate. There is no edema of the dependent areas nor of his stumps. RESPIRATORY: Clear to auscultation bilaterally. No crackle or rale. ABDOMEN: Soft and nontender. His peritoneal dialysis catheter exit site is unremarkable and has a dressing. GENITOURINARY: Shows right groin tunneled hemodialysis catheter. MUSCULOSKELETAL: He has bilateral below the knee amputations. There is no edema. NEUROLOGIC: He has no focal deficit. He is awake, alert and at baseline mentation. LABORATORY STUDIES: Yesterday's laboratory studies were reviewed with a potassium of 7.1 before dialysis. There are no new labs today. INPATIENT MEDICATIONS: Reviewed by myself. And no changes noted over the past day. PROBLEMS: 1. End-stage renal disease. Patient is receiving hemodialysis while he is in the rehabilitation unit. At home, he does peritoneal dialysis. We increased his treatment time yesterday and dialyzed him with a 1.0 mEq bath, as he was significantly hyperkalemic. I am getting repeat labs on Tuesday. If his hyperkalemia persists, we will do an extra dialysis treatment. He is on a potassium restricted diet now. Hypotension does complicate his treatments and he received albumin with the last dialysis for blood pressure support. 2. Chronic hypotension. Patient is pending transcatheter aortic valve replacement (TAVR) after this hospitalization. He continues on midodrine twice daily and I also gave him albumin with his last dialysis treatment to help with our ability to remove fluid. The patient himself is totally anuric. 3. Systolic congestive heart failure. Volume status is regulated via hemodialysis and patient is compensated. He is status post bilateral nephrectomy. We removed 1.5 liters of fluid with his last treatment. I am going to evaluate him for dialysis needs again on Tuesday pending repeat labs. 4. Hyperkalemia. He is now on a 2 gram potassium restricted diet. He received an extended treatment time on Tuesday and I will dialyze him again on Tuesday if his potassium is high. 5. Aortic stenosis. He is pending TAVR. It will be the next procedure to be done once he recuperates from his below the knee amputation. 6. Anemia related to end-stage renal failure. He continues on Aranesp with dialysis.
[2020-06-01 20:00] VITALS: BP 112/61
[2020-06-01] MEDS: ATORVASTATIN 20 MG TAB PO SCH (20:54)
[2020-06-01] MEDS: SENNA 8.6 MG TAB (SENOKOT) PO SCH (20:56)
[2020-06-02 06:00] VITALS: BP 109/70
[2020-06-02 06:56] LABS: BASO % 0.4 % (0.0-1.0); EOS # 0.4 10^3/uL (0.0-0.5); EOS % 6.6 % (0.0-3.0); HEMATOCRIT 27.8 % (42.0-52.0); HEMOGLOBIN 8.7 g/dl (13.5-17.5); LYMPH # 1.5 10^3/uL (1.5-5.0); LYMPH % 28.1 % (24.0-44.0); MEAN CORPUSCULAR HEMOGLOBIN 30.3 pg (27.0-33.0); MEAN CORPUSCULAR HGB CONC 31.3 g/dl (32.0-36.5); MEAN CORPUSCULAR VOLUME 96.9 fl (80.0-96.0); MONO # 0.7 10^3/uL (0.0-0.8); MONO % 12.5 % (2.0-8.0); NEUTROPHILS # 2.7 10^3/uL (1.5-8.5); PLATELET COUNT, AUTOMATED 227 10^3/uL (150-450); RED BLOOD COUNT 2.87 10^6/uL (4.30-6.10); WHITE BLOOD COUNT 5.3 10^3/uL (4.0-10.0)
[2020-06-02] MEDS: SYMBICORT 160/4.5MCG INHALER 6GM INH SCH ×2 (07:09→19:43)
[2020-06-02] MEDS: IPRATROPIUM 0.5MG/ALBUTEROL 2.5MG INH SOL UD 3ML (DUONEB) NEB SCH ×4 (07:10→19:43)
[2020-06-02 07:55] LABS: CALCIUM LEVEL 8.9 MG/DL (8.8-10.2); CREATININE FOR GFR 7.73 MG/DL (0.70-1.30); GLOMERULAR FILTRATION RATE 8.8 (>42); POTASSIUM SERUM 3.6 MEQ/L (3.5-5.1)
[2020-06-02] MEDS: SODIUM CHLORIDE 0.9% INJ 10 ML SYR IV SCH (09:00)
[2020-06-02] MEDS: HEPARIN SOD (PORCINE) 5000UNITS/ML 1ML VIAL/SYRINGE SC SCH ×2 (09:00→20:55)
[2020-06-02] MEDS: OMEPRAZOLE 20 MG CAP PO SCH (09:23)
[2020-06-02] MEDS: ASPIRIN 81MG ENTERIC TABLET PO SCH (09:23)
[2020-06-02] MEDS: ACETAMINOPHEN TAB 650MG DOSE (2X325MG) PO PRN (09:23)
[2020-06-02] MEDS: DOCUSATE SODIUM 100MG CAPSULE PO SCH ×2 (09:23→20:55)
[2020-06-02] MEDS: NORTRIPTYLINE 10 MG CAP PO SCH ×3 (09:23→20:55)
[2020-06-02] MEDS: (RENVELA) SEVELAMER **CARBONate** 800 MG TAB PO SCH ×3 (09:23→18:00)
[2020-06-02] MEDS: CLOPIDOGREL 75 MG TAB PO SCH (09:23)
[2020-06-02] MEDS: CINACALCET 30 MG TAB (SENSIPAR) PO SCH (09:24)
[2020-06-02] MEDS: MIDODRINE 5 MG TAB PO SCH ×2 (09:25→18:17)
[2020-06-02] MEDS: REMEDY PHYTOPLEX Z-GUARD PASTE 113GM TUBE (FROM STOREROOM PRODUCT) TOP SCH ×3 (09:26→20:55)
[2020-06-02 14:00] VITALS: BP 111/61
[2020-06-02 20:20] VITALS: BP 141/93
[2020-06-02] MEDS: ATORVASTATIN 20 MG TAB PO SCH (20:55)
[2020-06-02] MEDS: SENNA 8.6 MG TAB (SENOKOT) PO SCH (20:55)
[2020-06-03 05:47] VITALS: BP 142/69
[2020-06-03] MEDS: SYMBICORT 160/4.5MCG INHALER 6GM INH SCH ×2 (07:07→20:00)
[2020-06-03] MEDS: IPRATROPIUM 0.5MG/ALBUTEROL 2.5MG INH SOL UD 3ML (DUONEB) NEB SCH ×4 (07:07→20:00)
[2020-06-03] MEDS: (RENVELA) SEVELAMER **CARBONate** 800 MG TAB PO SCH ×3 (08:00→17:45)
[2020-06-03] MEDS: HEPARIN SOD (PORCINE) 5000UNITS/ML 1ML VIAL/SYRINGE SC SCH ×2 (09:00→20:58)
[2020-06-03 09:07] LABS: HEMATOCRIT 31.3 % (42.0-52.0); HEMOGLOBIN 9.9 g/dl (13.5-17.5); MEAN CORPUSCULAR HEMOGLOBIN 30.4 pg (27.0-33.0); MEAN CORPUSCULAR HGB CONC 31.6 g/dl (32.0-36.5); PLATELET COUNT, AUTOMATED 290 10^3/uL (150-450); RED BLOOD COUNT 3.26 10^6/uL (4.30-6.10); WHITE BLOOD COUNT 7.7 10^3/uL (4.0-10.0)
[2020-06-03] MEDS: MIDODRINE 5 MG TAB PO SCH ×2 (09:34→17:41)
[2020-06-03] MEDS: OMEPRAZOLE 20 MG CAP PO SCH (09:35)
[2020-06-03] MEDS: ASPIRIN 81MG ENTERIC TABLET PO SCH (09:35)
[2020-06-03] MEDS ORDERED: SODIUM CHLORIDE 0.9% 1000ML IV PRN (09:35)
[2020-06-03] MEDS: CLOPIDOGREL 75 MG TAB PO SCH (09:35)
[2020-06-03] MEDS: SODIUM CHLORIDE 0.9% INJ 10 ML SYR IV SCH (09:35)
[2020-06-03] MEDS: ACETAMINOPHEN TAB 650MG DOSE (2X325MG) PO PRN (09:35)
[2020-06-03] MEDS: NORTRIPTYLINE 10 MG CAP PO SCH ×3 (09:35→20:55)
[2020-06-03] MEDS: DOCUSATE SODIUM 100MG CAPSULE PO SCH ×2 (09:35→20:55)
[2020-06-03] MEDS: REMEDY PHYTOPLEX Z-GUARD PASTE 113GM TUBE (FROM STOREROOM PRODUCT) TOP SCH ×3 (09:36→20:59)
[2020-06-03 10:55] LABS: CALCIUM LEVEL 9.1 MG/DL (8.8-10.2); CREATININE FOR GFR 9.7 MG/DL (0.70-1.30); GLOMERULAR FILTRATION RATE 6.8 (>42)
[2020-06-03] MEDS: IRON SUCROSE 100MG 5ML VIAL (J1756 PER 1MG) IV SCH (13:33)
[2020-06-03 13:45] VITALS: BP 120/63
[2020-06-03 13:52] VITALS: BP 129/77
[2020-06-03 13:53] VITALS: BP 129/77
[2020-06-03 14:00] VITALS: BP_SYST 129; BP_DIAS 87; BP_DIAS 93
[2020-06-03 20:04] VITALS: BP 120/60
[2020-06-03] MEDS: SENNA 8.6 MG TAB (SENOKOT) PO SCH (20:55)
[2020-06-03] MEDS: ATORVASTATIN 20 MG TAB PO SCH (20:55)
[2020-06-03] MEDS: ANALGESIC BALM CRM 120 GM TOP SCH (20:56)
--- NOTE | 2020-06-04 01:12 | IPN ---
INPATIENT PROGRESS NOTE DATE: 06/03/2020 SUBJECTIVE: Patient is seen and examined in the morning in the rehabilitation unit and later receiving dialysis. He is for discharge tomorrow. He offers no complaints and is looking forward to being back home. OBJECTIVE: VITAL SIGNS: Temperature 97.6, pulse 92, respiratory rate 18, blood pressure 129/87, saturating 98% on room air. INTAKE/OUTPUT: Intake yesterday was not fully recorded. Dialysis today removed 1 liter. Weight in the bed scale today is 60.8 kg. GENERAL: Patient is seen awake, alert and oriented, in no apparent distress. An elderly male, frail appearing. HEENT: Extraocular muscles are intact. Tongue is moist. Neck is supple. He has a left-sided Infusaport. HEART: Sounds are regular, S1, S2. There is a systolic murmur. There is no edema of the dependent areas nor of his stumps. RESPIRATORY: Lungs are clear to auscultation bilaterally. No crackle or rale. ABDOMEN: Soft and nontender. His PD catheter exit site is unremarkable and has a dressing. GENITOURINARY: Shows right groin tunneled hemodialysis catheter. EXTREMITIES: He has bilateral below the knee amputations. There is no leg edema. NEUROLOGIC: No focal deficit. He is awake, alert and at baseline mentation and interactive. PSYCHIATRIC: Appropriate mood and affect. TODAY'S LABORATORY DATA: Sodium 137, potassium 4.0, bicarbonate 22, calcium 9.1. Hemoglobin 9.9. INPATIENT MEDICATIONS: Reviewed by myself and no change as noted over the past day. PROBLEMS: 1. End-stage renal disease: Patient is receiving hemodialysis while he is in the rehabilitation unit. Once he is discharged home tomorrow, he will switch back to peritoneal dialysis and we will arrange to have his temporary right groin hemodialysis catheter removed. His volume status and electrolytes are acceptable. Orders were written for albumin with dialysis today for blood pressure support. 2. Chronic hypotension: He is pending TAVR after this hospitalization. He continues on Midodrine 10 mg b.i.d. and I also gave him albumin with his hemodialysis treatments in view of chronic hypotension and also protein calorie malnutrition. 3. Systolic congestive heart failure: The patient is completely anuric (status post bilateral nephrectomy) and volume status is holy dependent on hemodialysis and the patient is compensated, 1 liter was removed with his treatment today. He will return back to his peritoneal dialysis prescription when he is discharged. 4. Anemia related to end-stage renal failure: Hemoglobin is improving. Continue with Aranesp with hemodialysis. 5. Aortic stenosis: He is pending TAVR, it will be the next procedure to be done once he recuperates from his below the knee amputation
[2020-06-04 05:24] VITALS: BP 116/77
[2020-06-04] MEDS: SYMBICORT 160/4.5MCG INHALER 6GM INH SCH (08:00)
[2020-06-04] MEDS: IPRATROPIUM 0.5MG/ALBUTEROL 2.5MG INH SOL UD 3ML (DUONEB) NEB SCH ×2 (08:00→12:00)
[2020-06-04] MEDS: (RENVELA) SEVELAMER **CARBONate** 800 MG TAB PO SCH ×2 (08:00→12:15)
[2020-06-04] MEDS: HEPARIN SOD (PORCINE) 5000UNITS/ML 1ML VIAL/SYRINGE SC SCH (09:00)
[2020-06-04] MEDS: DOCUSATE SODIUM 100MG CAPSULE PO SCH (09:00)
[2020-06-04] MEDS ORDERED: OMEP1CAP73 PO (09:04)
[2020-06-04] MEDS ORDERED: RENV2TAB PO (09:04)
[2020-06-04] MEDS ORDERED: PLAV1TAB2 PO (09:04)
[2020-06-04] MEDS ORDERED: ATOR40TA75 PO (09:04)
[2020-06-04] MEDS ORDERED: NORT10CA2 PO (09:04)
[2020-06-04] MEDS ORDERED: ECOT81TA5 PO (09:04)
[2020-06-04] MEDS ORDERED: SYMB16INH INH (09:04)
[2020-06-04] MEDS ORDERED: SENS60TA PO (09:04)
[2020-06-04] MEDS ORDERED: MIDO10TA PO (09:04)
--- NOTE | 2020-06-04 09:07 | IPNPDOC ---
PM&R Progress Note DATE OF SERVICE: Jun 02, 2020 [employer] Progress Note SUbjective: Patient stating his pain is well controlled, but that his arms feels a little sore from lifting his body weight. REVIEW OF SYSTEMS: The following is a completed review of systems and has been reviewed. Review of systems otherwise unremarkable. PAIN: Patient self reports no pain EYES: No recent vision changes EARS, NOSE, & THROAT: No throat pain, or dysphagia, or rhinorrhea CARDIOVASCULAR: Denies chest pain or palpitations PULMONARY: Denies shortness of breath GASTROINTESTINAL: Denies constipation/diarrhea GENITOURINARY: anuric MUSCULOSKELETAL: left BKA and s/p right BKA NEUROLOGICAL:+neuropathic pain HEMATOLOGICAL: +anemia SKIN: right BKA PSYCHIATRIC: Unremarkable All other review of systems found to be negative. PHYSICAL EXAMINATION: VITAL SIGNS: Please see below. GENERAL: Pleasant and cooperative. No acute distress HEENT: PERRL. Extraocular movements intact. Clear conjunctiva CARDIOVASCULAR: Regular rate and rhythm. No murmurs, rubs, or gallops LUNGS: Clear to auscultation bilaterally. No wheezes. No rhonchi ABDOMEN: Soft, nontender, nondistended. Positive bowel sounds. Normal active bowel sounds NEUROLOGICAL: Alert and oriented times three. Cranial nerves II through XII grossly intact. Sensation grossly intact in all 4limbs EXTREMITIES: 5\5 strength bilateral upper extremities. bilat hip flexors 4/5, knee extension 4/5 SKIN: healed sacral ulcers, right BKA incision without periwound induration, c/d/i ASSESSMENT:79-year-old M with past medical history of bilateral nephrectomies, left BKA who presents status post right BKA PLAN: 1. Rehab- PT/OT advance mobility, caregiver training, limb care, stretch/strengthen/maintain ROM all 4 limbs 2. Cardiac- chronic systlic and diastolic CHF with recent ECHO showing EF20% and aortic stenosis s/p valvuloplasty will fluid restrict to 1800cc, daily weights -cAD on ASa and statin -midodrine ordered with holding parameters for hypotension -medicine consulted for assistance with overall care 4. Resp- COPD on symbicort -monitor for infection, incentive spirometry 5. 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 Renal- patient converted to HD from PD for ARU admission, renal consulted in setting of bilateral nephrectomies -cinacalcet and sevelmar 7. Heme- anemia of chronic disease, renal consulted for management 8. Pain- c/u Pamelor 9. Skin- dressing changes per wound care instructions 10. GI- omeprazole 11. DVT ppx- heparin 12. Dispo- TBD Allergies Coded Allergies: amlodipine (Verified Allergy, Unknown, 05/23/20) indomethacin (Verified Allergy, Unknown, 05/23/20) nifedipine (Verified Allergy, Unknown, 05/23/20) NSAIDS (Non-Steroidal Anti-Inflamma (Verified Adverse Reaction, Intermediate, RECTAL BLEEDING, 05/23/20) TAKES 81MG ASA AT HOME FINE hydralazine (Verified Adverse Reaction, Mild, ELEVATED BP, 05/23/20) minoxidil (Verified Adverse Reaction, Mild, SWELLING, 05/23/20) Opioids - Morphine Analogues (Verified Adverse Reaction, Unknown, DIALYSIS PT, 05/23/20) epoetin beta (Verified Adverse Reaction, Unknown, 05/23/20) Hyporesponsive gabapentin (Verified Adverse Reaction, Unknown, confusion, 05/23/20) Vital Signs Vital Signs Date Time Temp Pulse Resp B/P (MAP) Pulse Ox O2 Delivery O2 Flow Rate FiO2 06/04/20 05:24 97.1 88 16 116/77 (90) 96 Room Air 06/03/20 14:00 2.0 06/03/20 13:45 96 Current Medications Current Medications Current Medications Medications (Trade) Dose Ordered Sig/Damien Route PRN Reason Start Time Stop Time Status Last Admin Dose Admin Acetaminophen (Tylenol Tab) 650 mg Q4HP PRN PO fever/MILD PAIN (PS 1-4) 05/28/20 14:55 06/03/20 09:35 Albuterol/ Ipratropium (Duoneb (Ipr 0.5mg/Alb 2.5mg)) 3 ml RQID NEB 05/29/20 08:00 06/03/20 20:00 Aspirin (Ecotrin) 81 mg DAILY PO 05/29/20 09:00 06/03/20 09:35 Atorvastatin Calcium (Lipitor) 40 mg QHS PO 05/29/20 21:00 06/03/20 20:55 Budesonide/ Formoterol Fumarate (Symbicort 160/ 4.5mcg) 2 puff RBID INH 05/29/20 08:00 06/03/20 20:00 Cinacalcet (Sensipar) 60 mg MoWeFr@0900 PO 05/30/20 09:00 06/02/20 09:24 Clopidogrel Bisulfate (PLAVix) 75 mg DAILY PO 05/29/20 09:00 06/03/20 09:35 Darbepoetin Irving (Aranesp (Dialysis Use)) 100 mcg HD IV 05/29/20 07:05 05/29/20 13:36 Docusate Sodium (Colace) 100 mg BID PO 05/28/20 21:00 06/03/20 20:55 Heparin Sodium (Heparin (Flush)) 500 units ASDIRECTED PRN IV SEE LABEL COMMENTS 05/28/20 23:35 06/02/20 05:56 Heparin Sodium (Heparin (Flush)) 500 units DAILY IV 05/29/20 09:00 06/03/20 09:35 Heparin Sodium (Heparin) Please refer to ... ASDIRECTED XX 05/29/20 07:05 05/30/20 07:04 DC Heparin Sodium (Heparin) Please refer to ... ASDIRECTED XX 05/31/20 08:40 06/01/20 08:39 DC Heparin Sodium (Heparin) Please refer to ... ASDIRECTED XX 06/03/20 09:35 06/04/20 09:34 Heparin Sodium (Heparin) dose as per volume indica... ASDIRECTED PRN IV SEE LABEL COMMENTS 05/29/20 07:05 05/30/20 07:04 DC Heparin Sodium (Heparin) dose as per volume indica... ASDIRECTED PRN IV SEE LABEL COMMENTS 05/31/20 08:40 06/01/20 08:39 DC Heparin Sodium (Heparin) dose as per volume indica... ASDIRECTED PRN IV SEE LABEL COMMENTS 06/03/20 09:35 06/04/20 09:34 Heparin Sodium (Porcine) (Heparin) 5,000 units Q12H SC 05/29/20 09:00 Iron (Venofer) 100 mg HD IV 05/29/20 07:05 06/03/20 13:33 Menthol/Methyl Salicylate (Bengay Cream) left arm TID TOP 06/03/20 21:00 06/03/20 20:56 Midodrine (Proamatine) 10 mg BID@0800,1800 PO 05/29/20 08:00 06/03/20 17:41 Nortriptyline HCl (Pamelor) 30 mg TID PO 05/28/20 21:00 06/03/20 20:55 Omeprazole (PriLOSEC) 20 mg DAILY PO 05/29/20 09:00 06/03/20 09:35 Senna (Senokot) 1 tab QHS PO 05/28/20 21:00 06/03/20 20:55 Sevelamer Carbonate (Renvela) 800 mg WM PO 05/29/20 08:00 06/02/20 09:23 Sodium Chloride (Nacl 0.9%) 200 ml ASDIRECTED PRN IV SEE LABEL COMMENTS 05/29/20 07:05 05/30/20 07:04 DC Sodium Chloride (Nacl 0.9%) 200 ml ASDIRECTED PRN IV SEE LABEL COMMENTS 05/31/20 08:40 06/01/20 08:39 DC Sodium Chloride (Nacl 0.9%) 200 ml ASDIRECTED PRN IV SEE LABEL COMMENTS 06/03/20 09:35 06/04/20 09:34 Sodium Chloride (Saline Lock Flush) 10 ml ASDIRECTED PRN IV SEE LABEL COMMENTS 05/28/20 23:35 06/02/20 05:56 Sodium Chloride (Saline Lock Flush) 10 ml DAILY IV 05/29/20 09:00 06/03/20 09:35 JEFFERY CANTU MD Jun 04, 2020 09:07
--- NOTE | 2020-06-04 09:09 | IPNPDOC ---
PM&R Progress Note DATE OF SERVICE: Jun 03, 2020 [employer] Progress Note SUbjective: Patient stating he feels ready to go home tomorrow and is interested in trying bengay to rub on his arms. REVIEW OF SYSTEMS: The following is a completed review of systems and has been reviewed. Review of systems otherwise unremarkable. PAIN: Patient self reports no pain EYES: No recent vision changes EARS, NOSE, & THROAT: No throat pain, or dysphagia, or rhinorrhea CARDIOVASCULAR: Denies chest pain or palpitations PULMONARY: Denies shortness of breath GASTROINTESTINAL: Denies constipation/diarrhea GENITOURINARY: anuric MUSCULOSKELETAL: left BKA and s/p right BKA NEUROLOGICAL:+neuropathic pain HEMATOLOGICAL: +anemia SKIN: right BKA PSYCHIATRIC: Unremarkable All other review of systems found to be negative. PHYSICAL EXAMINATION: VITAL SIGNS: Please see below. GENERAL: Pleasant and cooperative. No acute distress HEENT: PERRL. Extraocular movements intact. Clear conjunctiva CARDIOVASCULAR: Regular rate and rhythm. No murmurs, rubs, or gallops LUNGS: Clear to auscultation bilaterally. No wheezes. No rhonchi ABDOMEN: Soft, nontender, nondistended. Positive bowel sounds. Normal active bowel sounds NEUROLOGICAL: Alert and oriented times three. Cranial nerves II through XII grossly intact. Sensation grossly intact in all 4limbs EXTREMITIES: 5\5 strength bilateral upper extremities. bilat hip flexors 4/5, knee extension 4/5 SKIN: healed sacral ulcers, right BKA incision without periwound induration, c/d/i ASSESSMENT:79-year-old M with past medical history of bilateral nephrectomies, left BKA who presents status post right BKA PLAN: 1. Rehab- PT/OT advance mobility, caregiver training, limb care, stretch/strengthen/maintain ROM all 4 limbs 2. Cardiac- chronic systlic and diastolic CHF with recent ECHO showing EF20% and aortic stenosis s/p valvuloplasty will fluid restrict to 1800cc, daily weights -cAD on ASa and statin -midodrine ordered with holding parameters for hypotension -medicine consulted for assistance with overall care 4. Resp- COPD on symbicort -monitor for infection, incentive spirometry 5. 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 Renal- patient converted to HD from PD for ARU admission, renal consulted in setting of bilateral nephrectomies -cinacalcet and sevelmar 7. Heme- anemia of chronic disease, renal consulted for management 8. Pain- c/u Pamelor 9. Skin- dressing changes per wound care instructions 10. GI- omeprazole 11. DVT ppx- heparin 12. Dispo- 06-04-20 to home, progressing towards goals Allergies Coded Allergies: amlodipine (Verified Allergy, Unknown, 05/23/20) indomethacin (Verified Allergy, Unknown, 05/23/20) nifedipine (Verified Allergy, Unknown, 05/23/20) NSAIDS (Non-Steroidal Anti-Inflamma (Verified Adverse Reaction, Intermediate, RECTAL BLEEDING, 05/23/20) TAKES 81MG ASA AT HOME FINE hydralazine (Verified Adverse Reaction, Mild, ELEVATED BP, 05/23/20) minoxidil (Verified Adverse Reaction, Mild, SWELLING, 05/23/20) Opioids - Morphine Analogues (Verified Adverse Reaction, Unknown, DIALYSIS PT, 05/23/20) epoetin beta (Verified Adverse Reaction, Unknown, 05/23/20) Hyporesponsive gabapentin (Verified Adverse Reaction, Unknown, confusion, 05/23/20) Vital Signs Vital Signs Date Time Temp Pulse Resp B/P (MAP) Pulse Ox O2 Delivery O2 Flow Rate FiO2 06/04/20 05:24 97.1 88 16 116/77 (90) 96 Room Air 06/03/20 14:00 2.0 06/03/20 13:45 96 Current Medications Current Medications Current Medications Medications (Trade) Dose Ordered Sig/Damien Route PRN Reason Start Time Stop Time Status Last Admin Dose Admin Acetaminophen (Tylenol Tab) 650 mg Q4HP PRN PO fever/MILD PAIN (PS 1-4) 05/28/20 14:55 06/03/20 09:35 Albuterol/ Ipratropium (Duoneb (Ipr 0.5mg/Alb 2.5mg)) 3 ml RQID NEB 05/29/20 08:00 06/03/20 20:00 Aspirin (Ecotrin) 81 mg DAILY PO 05/29/20 09:00 06/03/20 09:35 Atorvastatin Calcium (Lipitor) 40 mg QHS PO 05/29/20 21:00 06/03/20 20:55 Budesonide/ Formoterol Fumarate (Symbicort 160/ 4.5mcg) 2 puff RBID INH 05/29/20 08:00 06/03/20 20:00 Cinacalcet (Sensipar) 60 mg MoWeFr@0900 PO 05/30/20 09:00 06/02/20 09:24 Clopidogrel Bisulfate (PLAVix) 75 mg DAILY PO 05/29/20 09:00 06/03/20 09:35 Darbepoetin Irving (Aranesp (Dialysis Use)) 100 mcg HD IV 05/29/20 07:05 05/29/20 13:36 Docusate Sodium (Colace) 100 mg BID PO 05/28/20 21:00 06/03/20 20:55 Heparin Sodium (Heparin (Flush)) 500 units ASDIRECTED PRN IV SEE LABEL COMMENTS 05/28/20 23:35 06/02/20 05:56 Heparin Sodium (Heparin (Flush)) 500 units DAILY IV 05/29/20 09:00 06/03/20 09:35 Heparin Sodium (Heparin) Please refer to ... ASDIRECTED XX 05/29/20 07:05 05/30/20 07:04 DC Heparin Sodium (Heparin) Please refer to ... ASDIRECTED XX 05/31/20 08:40 06/01/20 08:39 DC Heparin Sodium (Heparin) Please refer to ... ASDIRECTED XX 06/03/20 09:35 06/04/20 09:34 Heparin Sodium (Heparin) dose as per volume indica... ASDIRECTED PRN IV SEE LABEL COMMENTS 05/29/20 07:05 05/30/20 07:04 DC Heparin Sodium (Heparin) dose as per volume indica... ASDIRECTED PRN IV SEE LABEL COMMENTS 05/31/20 08:40 06/01/20 08:39 DC Heparin Sodium (Heparin) dose as per volume indica... ASDIRECTED PRN IV SEE LABEL COMMENTS 06/03/20 09:35 06/04/20 09:34 Heparin Sodium (Porcine) (Heparin) 5,000 units Q12H SC 05/29/20 09:00 Iron (Venofer) 100 mg HD IV 05/29/20 07:05 06/03/20 13:33 Menthol/Methyl Salicylate (Bengay Cream) left arm TID TOP 3/2/21 21:00 06/03/20 20:56 Midodrine (Proamatine) 10 mg BID@0800,1800 PO 05/29/20 08:00 06/03/20 17:41 Nortriptyline HCl (Pamelor) 30 mg TID PO 05/28/20 21:00 06/03/20 20:55 Omeprazole (PriLOSEC) 20 mg DAILY PO 05/29/20 09:00 06/03/20 09:35 Senna (Senokot) 1 tab QHS PO 05/28/20 21:00 06/03/20 20:55 Sevelamer Carbonate (Renvela) 800 mg WM PO 05/29/20 08:00 06/02/20 09:23 Sodium Chloride (Nacl 0.9%) 200 ml ASDIRECTED PRN IV SEE LABEL COMMENTS 05/29/20 07:05 05/30/20 07:04 DC Sodium Chloride (Nacl 0.9%) 200 ml ASDIRECTED PRN IV SEE LABEL COMMENTS 05/31/20 08:40 06/01/20 08:39 DC Sodium Chloride (Nacl 0.9%) 200 ml ASDIRECTED PRN IV SEE LABEL COMMENTS 06/03/20 09:35 06/04/20 09:34 Sodium Chloride (Saline Lock Flush) 10 ml ASDIRECTED PRN IV SEE LABEL COMMENTS 05/28/20 23:35 06/02/20 05:56 Sodium Chloride (Saline Lock Flush) 10 ml DAILY IV 05/29/20 09:00 06/03/20 09:35 JEFFERY CANTU MD Jun 04, 2020 09:09
[2020-06-04] MEDS: CINACALCET 30 MG TAB (SENSIPAR) PO SCH (09:26)
[2020-06-04] MEDS: NORTRIPTYLINE 10 MG CAP PO SCH (09:26)
[2020-06-04] MEDS: MIDODRINE 5 MG TAB PO SCH (09:26)
[2020-06-04] MEDS: OMEPRAZOLE 20 MG CAP PO SCH (09:26)
[2020-06-04] MEDS: ASPIRIN 81MG ENTERIC TABLET PO SCH (09:26)
[2020-06-04] MEDS: ACETAMINOPHEN TAB 650MG DOSE (2X325MG) PO PRN (09:26)
[2020-06-04] MEDS: CLOPIDOGREL 75 MG TAB PO SCH (09:26)
[2020-06-04] MEDS: SODIUM CHLORIDE 0.9% INJ 10 ML SYR IV SCH (09:27)
[2020-06-04] MEDS: REMEDY PHYTOPLEX Z-GUARD PASTE 113GM TUBE (FROM STOREROOM PRODUCT) TOP SCH (09:29)
[2020-06-04] MEDS: ANALGESIC BALM CRM 120 GM TOP SCH (09:30)
--- NOTE | 2020-06-04 20:08 | IPN ---
NEPHROLOGY PROGRESS NOTE DATE: 06/04/2020 SUBJECTIVE: The patient is seen and examined this morning at the bedside in the Rehabilitation Unit. He is discharge pending. His PD catheter was flushed yesterday without any issues and he is pending removal of his right groin tunneled hemodialysis catheter. He offers no complaints. He is looking forward to going home. OBJECTIVE: PHYSICAL EXAMINATION: VITAL SIGNS: Temperature 97.1, pulse 88, respiratory rate 16, blood pressure 116/77, saturating 96 % on room air. INTAKE AND OUTPUT: He was dialyzed yesterday with one liter of fluid removed. Weight in the bed scale today is 63 kg. GENERAL APPEARANCE: This patient is seen lying in bed in the Rehabilitation Unit, elderly male, awake, alert, oriented, in no apparent distress. HEENT: The extraocular muscles are intact. Tongue is moist. NECK: Supple. CHEST: The infusaport in his left chest wall was removed. HEART: Regular, S1, S2. There is a systolic murmur. There are decreased peripheral pulses. LUNGS: Clear to auscultation bilaterally. No crackles, rales or rhonchus. ABDOMEN: Soft and nontender. There is a PD catheter with intact exit site and dressing. GENITOURINARY: His right groin has a tunneled hemodialysis catheter which is still pending removal. EXTREMITIES: There are bilateral below the knee amputations. There is no edema in the stumps nor in the dependent areas. NEUROLOGICAL: Awake, alert and oriented x3 and at baseline mentation. LABORATORY STUDIES: White count 7.7, hemoglobin 9.9, platelet count 290. Sodium 137, potassium 4.0, calcium 9.1. CURRENT INPATIENT MEDICATIONS: The patient's medications were reviewed by myself, and no changes as compared to yesterday. PROBLEMS: 1. End-stage renal disease The patient was receiving hemodialysis while he was in the Rehabilitation Unit. Now his tunneled hemodialysis catheter in the right groin will be discontinued and he will return to his peritoneal dialysis prescription at home, and he will follow up in the peritoneal dialysis clinic. We did flush his PD catheter yesterday to insure that it was patent and functional. His electrolytes and volume status are optimized. 2. Chronic hypotension - The patient is pending TAVR after this hospitalization. He continues on Midodrine 10 mg twice daily. 3. Protein calorie malnutrition - encourage a high protein diet, 1.2 grams per kg body weight daily. 4. Systolic congestive heart failure volume status is fully dependent on hemodialysis as the patient is completely anuric. He is presently compensated, and he will return back now to his peritoneal dialysis prescription when he is at home and his estimated dry weight will need to be adjusted since he is status post another below the knee amputation. 5. Anemia related to end-stage renal failure he will continue with erythropoietin stimulating agent in the outpatient PD clinic. 6. Aortic stenosis he is pending TAVR. It will be the next procedure to be done.
--- NOTE | 2020-06-24 13:14 | PMRDS ---
NAME: CASSIDY VARGHESE [facility] WT ID#: [id number] JOB: [id number] CARLO: 06/04/2020 ACCT: [id number] DOCTOR: JEFFERY CANTU MD PMR DISCHARGE SUMMARY DATE OF ADMISSION: 05/28/2020 DATE OF DISCHARGE: 06/04/2020 CHIEF COMPLAINT/ DISCHARGE DIAGNOSIS: Right below-knee amputation. HISTORY OF PRESENT ILLNESS: A 79-year-old man with a past medical history of renal cell carcinoma, status post nephrectomy is on peritoneal dialysis, congestive heart failure (CHF) with recent echo showing ejection fraction (EF) 20%, and aortic stenosis, status post valvuloplasty, chronic obstructive pulmonary disease (COPD), chronic hypotension, gastroesophageal reflux disease (GERD), prostate cancer status post prostatectomy, anemia of chronic disease, coronary artery disease (CAD), secondary hyperparathyroidism, status post left below-knee amputation (BKA) with chronic right foot ischemic wound, followed closely by Dr. Canseco. Underwent a right BKA on 05/23/2020 for atherosclerosis of the y[place] dehe arteries with gangrene of the right foot. He had postoperative blood loss requiring blood transfusion and difficulty with pain. Femoral catheter was placed on 05/28/2020 transition from hemodialysis (HD) to peritoneal dialysis (PD). He was evaluated by therapy and found to have impairments in mobility and activities of daily living (ADLs) and deemed medically appropriate for discharge to acute rehabilitation unit (ARU). PAST MEDICAL HISTORY: As per history of present illness (HPI). HOSPITAL COURSE: Patient was admitted and enrolled in a comprehensive physical therapy (PT)/occupational therapy (OT) program. He received 24-hour nursing supervision, and weekly team meetings were held to discuss his progress. Patient received daily dressing changes for his right below-knee amputation (BKA). His pain was controlled with Pamelor. His anemia of chronic disease remained relatively stable during his hospital course. He was maintained on aspirin and Plavix and midodrine for his hypotension. He made steady gains in therapy and was deemed medically and functionally stable to return home. DISCHARGE MEDICATIONS: As per instructions. FUNCTIONAL HISTORY ON DISCHARGE: Patient was standby assist for bed mobility and functional transfers, modified independent from a wheelchair level. Thank you for this referral.
== END 2020-06-04 12:50 | disposition home health service (06) | DRG 559 ==
LOC: M PM&R 22:29
PROVIDERS: ADMIT Physical Medicine & Rehabilitation; ATTEND Physical Medicine & Rehabilitation
PROC: 5A1D70Z Performance of Urinary Filtration, Intermittent, Less than 6 Hours Per Day (ICD-10-PCS; principal; 2020-05-29)
PROC: 06PY33Z Removal of Infusion Device from Lower Vein, Percutaneous Approach (ICD-10-PCS; 2020-06-04)
DX: Z47.81 Encounter for orthopedic aftercare following surgical amputation (principal); N18.6 End stage renal disease; I50.42 Chronic combined systolic (congestive) and diastolic (congestive) heart failure; N25.81 Secondary hyperparathyroidism of renal origin; E46 Unspecified protein-calorie malnutrition; J44.9 Chronic obstructive pulmonary disease, unspecified; I95.89 Other hypotension; K21.9 Gastro-esophageal reflux disease without esophagitis; D63.1 Anemia in chronic kidney disease; F39 Unspecified mood [affective] disorder; I25.10 Atherosclerotic heart disease of native coronary artery without angina pectoris; I35.0 Nonrheumatic aortic (valve) stenosis; M79.2 Neuralgia and neuritis, unspecified; Z74.09 Other reduced mobility; Z99.2 Dependence on renal dialysis; Z74.1 Need for assistance with personal care; Z85.528 Personal history of other malignant neoplasm of kidney; Z90.5 Acquired absence of kidney; Z89.511 Acquired absence of right leg below knee; Z89.512 Acquired absence of left leg below knee; Z79.82 Long term (current) use of aspirin; Z79.02 Long term (current) use of antithrombotics/antiplatelets; Z85.46 Personal history of malignant neoplasm of prostate; Z79.899 Other long term (current) drug therapy; Z88.5 Allergy status to narcotic agent; Z88.8 Allergy status to other drugs, medicaments and biological substances; Z95.828 Presence of other vascular implants and grafts

== ENCOUNTER 2020-06-12 12:00 | Outpatient (CLI) | payer MEDICARE, OTHER ==
[~2020-06-12 12:00] MED LIST changes: +SODIUM CHLORIDE 0.9% INJ 10 ML SYR IV SCH
[2020-06-12 12:10] VITALS: BP 130/80
[2020-06-12 12:55] LABS: BASO % 0.7 % (0.0-1.0); EOS # 0.6 10^3/uL (0.0-0.5); EOS % 9.8 % (0.0-3.0); HEMATOCRIT 32.8 % (42.0-52.0); HEMOGLOBIN 10.6 g/dl (13.5-17.5); LYMPH % 33.2 % (24.0-44.0); MEAN CORPUSCULAR HEMOGLOBIN 30.4 pg (27.0-33.0); MEAN CORPUSCULAR HGB CONC 32.3 g/dl (32.0-36.5); MONO # 0.4 10^3/uL (0.0-0.8); MONO % 6.6 % (2.0-8.0); NEUTROPHILS # 2.9 10^3/uL (1.5-8.5); NEUTROPHILS % 49.5 % (36.0-66.0); PLATELET COUNT, AUTOMATED 311 10^3/uL (150-450); RED BLOOD COUNT 3.49 10^6/uL (4.30-6.10); WHITE BLOOD COUNT 5.9 10^3/uL (4.0-10.0)
[2020-06-12 13:45] LABS: CALCIUM LEVEL 9.4 MG/DL (8.8-10.2); CREATININE FOR GFR 9.31 MG/DL (0.70-1.30); GLOMERULAR FILTRATION RATE 7.1 (>42); MAGNESIUM LEVEL 2.6 MG/DL (1.8-2.4); PERCENT SATURATION 38.5 % (19.7-50.0); PHOSPHORUS LEVEL 3.9 MG/DL (2.5-4.9); POTASSIUM SERUM 3.7 MEQ/L (3.5-5.1)
== END 2020-06-12 12:25 | disposition home or self-care (01) ==
LOC: M INFU 12:00
PROVIDERS: ATTEND Internal Medicine Nephrology
DX: N18.6 End stage renal disease (principal)
CPT/HCPCS: 36591; 80048; 83550; 83735; 84100; 84155; 85025; J1642

== ENCOUNTER 2020-07-09 14:41 | Outpatient (CLI) | payer MEDICARE, OTHER ==
[~2020-07-09] VITALS: Ht 172.7 cm; Wt 63.0 kg
[~2020-07-09 14:41] MED LIST changes: +SODIUM CHLORIDE 0.9% INJ 10 ML SYR IV PRN
[2020-07-09 14:50] VITALS: BP 121/64
[2020-07-09 15:40] LABS: BASO % 0.4 % (0.0-1.0); EOS # 0.8 10^3/uL (0.0-0.5); EOS % 10.6 % (0.0-3.0); HEMATOCRIT 34.3 % (42.0-52.0); HEMOGLOBIN 10.8 g/dl (13.5-17.5); LYMPH % 38.2 % (24.0-44.0); MEAN CORPUSCULAR HEMOGLOBIN 29.9 pg (27.0-33.0); MEAN CORPUSCULAR HGB CONC 31.5 g/dl (32.0-36.5); MONO # 0.6 10^3/uL (0.0-0.8); MONO % 7.1 % (2.0-8.0); NEUTROPHILS # 3.4 10^3/uL (1.5-8.5); NEUTROPHILS % 43.3 % (36.0-66.0); PLATELET COUNT, AUTOMATED 175 10^3/uL (150-450); RED BLOOD COUNT 3.61 10^6/uL (4.30-6.10); WHITE BLOOD COUNT 7.8 10^3/uL (4.0-10.0)
[2020-07-09 16:26] LABS: ALBUMIN 2.8 GM/DL (3.2-5.2); CALCIUM LEVEL 8.9 MG/DL (8.8-10.2); CREATININE FOR GFR 10.5 MG/DL (0.70-1.30); GLOMERULAR FILTRATION RATE 6.2 (>42); MAGNESIUM LEVEL 2.3 MG/DL (1.8-2.4); PERCENT SATURATION 33.9 % (19.7-50.0); PHOSPHORUS LEVEL 4.7 MG/DL (2.5-4.9); POTASSIUM SERUM 3.7 MEQ/L (3.5-5.1); PTH INTACT 383.9 PG/ML (18.5-88.0); TOTAL PROTEIN 6.2 GM/DL (6.4-8.2); URIC ACID 4.4 MG/DL (3.5-7.2)
== END 2020-07-09 15:30 | disposition home or self-care (01) ==
LOC: M INFU 14:41
PROVIDERS: ATTEND Internal Medicine Nephrology
DX: N18.6 End stage renal disease (principal)
CPT/HCPCS: 36591; 80048; 82040; 82728; 83550; 83735; 83970; 84075; 84100; 84155; 84450; 84460; 84550; 85025; 96523; J1642

== ENCOUNTER 2020-08-13 17:25 | Outpatient (CLI) | payer MEDICARE, OTHER ==
[~2020-08-13 17:25] MED LIST changes: -SODIUM CHLORIDE 0.9% INJ 10 ML SYR IV SCH
[2020-08-13 17:31] VITALS: BP 109/57
[2020-08-13 18:02] LABS: BASO % 0.6 % (0.0-1.0); EOS # 1.2 10^3/uL (0.0-0.5); EOS % 18.6 % (0.0-3.0); HEMATOCRIT 27.6 % (42.0-52.0); LYMPH # 2.8 10^3/uL (1.5-5.0); LYMPH % 41.2 % (24.0-44.0); MEAN CORPUSCULAR HEMOGLOBIN 30.2 pg (27.0-33.0); MEAN CORPUSCULAR HGB CONC 32.6 g/dl (32.0-36.5); MEAN CORPUSCULAR VOLUME 92.6 fl (80.0-96.0); MONO # 0.6 10^3/uL (0.0-0.8); MONO % 8.2 % (2.0-8.0); NEUTROPHILS # 2.1 10^3/uL (1.5-8.5); NEUTROPHILS % 31.3 % (36.0-66.0); PLATELET COUNT, AUTOMATED 168 10^3/uL (150-450); RED BLOOD COUNT 2.98 10^6/uL (4.30-6.10); WHITE BLOOD COUNT 6.7 10^3/uL (4.0-10.0)
[2020-08-13 19:27] LABS: ALBUMIN 2.9 GM/DL (3.2-5.2); MAGNESIUM LEVEL 2.2 MG/DL (1.8-2.4); PERCENT SATURATION 91.3 % (19.7-50.0); PHOSPHORUS LEVEL 4.6 MG/DL (2.5-4.9); PTH INTACT 384.4 PG/ML (18.5-88.0); TOTAL PROTEIN 5.9 GM/DL (6.4-8.2); URIC ACID 4.7 MG/DL (3.5-7.2)
[2020-08-13 20:27] LABS: % LABILE ALKALINE PHOSPHATASE 75.9 %
[2020-08-14] MEDS ORDERED: SODIUM CHLORIDE 0.9% INJ 10 ML SYR IV SCH (09:00)
== END 2020-08-13 17:44 | disposition home or self-care (01) ==
LOC: M INFU 17:25
PROVIDERS: ATTEND Internal Medicine Nephrology
DX: N18.6 End stage renal disease (principal)
CPT/HCPCS: 36591; 82040; 82728; 83550; 83735; 83970; 84078; 84100; 84155; 84450; 84460; 84550; 85025; 96523; J1642

== ENCOUNTER 2020-08-22 13:45 | Outpatient (CLI) | payer MEDICARE, OTHER ==
[2020-08-22 13:45] VITALS: BP 126/63
[~2020-08-22 13:45] MED LIST changes: +SODIUM CHLORIDE 0.9% INJ 10 ML SYR IV SCH
[2020-08-22 15:27] LABS: BILIRUBIN,DIRECT 0.1 MG/DL (0.0-0.2); BILIRUBIN,TOTAL 0.2 MG/DL (0.2-1.0); CALCIUM LEVEL 8.9 MG/DL (8.8-10.2); CREATININE FOR GFR 10.1 MG/DL (0.70-1.30); GLOMERULAR FILTRATION RATE 6.5 (>42); PERCENT SATURATION 93.3 % (19.7-50.0); POTASSIUM SERUM 3.5 MEQ/L (3.5-5.1)
== END 2020-08-22 14:00 | disposition home or self-care (01) ==
LOC: M INFU 13:45
PROVIDERS: ATTEND Internal Medicine Nephrology
DX: N18.6 End stage renal disease (principal); Z88.1 Allergy status to other antibiotic agents; Z88.5 Allergy status to narcotic agent; Z88.8 Allergy status to other drugs, medicaments and biological substances
CPT/HCPCS: 36591; 80048; 80076; 83550; 96523; J1642

== ENCOUNTER 2020-09-10 15:52 | Outpatient (CLI) | payer MEDICARE, OTHER ==
[~2020-09-10] VITALS: Ht 172.7 cm; Wt 63.0 kg
[2020-09-10 16:05] VITALS: BP 146/67
[2020-09-10 16:20] LABS: BASO % 0.7 % (0.0-1.0); EOS # 0.8 10^3/uL (0.0-0.5); EOS % 13.7 % (0.0-3.0); HEMATOCRIT 23.5 % (42.0-52.0); HEMOGLOBIN 7.7 g/dl (13.5-17.5); LYMPH # 2.3 10^3/uL (1.5-5.0); LYMPH % 40.2 % (24.0-44.0); MEAN CORPUSCULAR HEMOGLOBIN 30.6 pg (27.0-33.0); MEAN CORPUSCULAR HGB CONC 32.8 g/dl (32.0-36.5); MEAN CORPUSCULAR VOLUME 93.3 fl (80.0-96.0); MONO # 0.4 10^3/uL (0.0-0.8); MONO % 7.5 % (2.0-8.0); NEUTROPHILS # 2.2 10^3/uL (1.5-8.5); NEUTROPHILS % 37.6 % (36.0-66.0); PLATELET COUNT, AUTOMATED 176 10^3/uL (150-450); RED BLOOD COUNT 2.52 10^6/uL (4.30-6.10); WHITE BLOOD COUNT 5.8 10^3/uL (4.0-10.0)
[2020-09-10 17:35] LABS: ALBUMIN 2.7 GM/DL (3.2-5.2); CALCIUM LEVEL 7.7 MG/DL (8.8-10.2); CREATININE FOR GFR 10.2 MG/DL (0.70-1.30); GLOMERULAR FILTRATION RATE 6.4 (>42); PERCENT SATURATION 60.4 % (19.7-50.0); PHOSPHORUS LEVEL 5.4 MG/DL (2.5-4.9); POTASSIUM SERUM 3.3 MEQ/L (3.5-5.1); TOTAL PROTEIN 5.6 GM/DL (6.4-8.2)
== END 2020-09-10 16:15 | disposition home or self-care (01) ==
LOC: M INFU 15:52
PROVIDERS: ATTEND Internal Medicine Nephrology
DX: N18.6 End stage renal disease (principal)
CPT/HCPCS: 36591; 80048; 82040; 83550; 84100; 84155; 85025; 87340; 96523; J1642

== ENCOUNTER 2020-09-17 15:39 | Outpatient (CLI) | payer MEDICARE, OTHER ==
[~2020-09-17 15:39] MED LIST changes: -SODIUM CHLORIDE 0.9% INJ 10 ML SYR IV PRN; -SODIUM CHLORIDE 0.9% INJ 10 ML SYR IV SCH
[2020-09-17 15:50] VITALS: BP 135/63
[2020-09-17] MEDS ORDERED: SODIUM CHLORIDE 0.9% INJ 10 ML SYR IV PRN (15:50)
[2020-09-18] MEDS ORDERED: SODIUM CHLORIDE 0.9% INJ 10 ML SYR IV SCH (09:00)
== END 2020-09-17 16:00 | disposition home or self-care (01) ==
LOC: M INFU 15:39
PROVIDERS: ATTEND Internal Medicine Nephrology
DX: N18.6 End stage renal disease (principal); D63.1 Anemia in chronic kidney disease; Z88.6 Allergy status to analgesic agent; Z88.8 Allergy status to other drugs, medicaments and biological substances
CPT/HCPCS: 36591; 86850; 86900; 86901; 86920; J1642

== ENCOUNTER 2020-10-13 15:12 | Outpatient (CLI) | payer MEDICARE, OTHER ==
[~2020-10-13] VITALS: Ht 172.7 cm; Wt 63.0 kg
[~2020-10-13 15:12] MED LIST changes: +SODIUM CHLORIDE 0.9% INJ 10 ML SYR IV PRN; +SODIUM CHLORIDE 0.9% INJ 10 ML SYR IV SCH
[2020-10-13 15:30] VITALS: BP 92/61
[2020-10-13 16:15] LABS: BASO % 0.5 % (0.0-1.0); EOS # 1.2 10^3/uL (0.0-0.5); EOS % 14.4 % (0.0-3.0); HEMATOCRIT 31.8 % (42.0-52.0); HEMOGLOBIN 10.4 g/dl (13.5-17.5); LYMPH # 2.8 10^3/uL (1.5-5.0); LYMPH % 32.2 % (24.0-44.0); MEAN CORPUSCULAR HEMOGLOBIN 31.1 pg (27.0-33.0); MEAN CORPUSCULAR HGB CONC 32.7 g/dl (32.0-36.5); MEAN CORPUSCULAR VOLUME 95.2 fl (80.0-96.0); MONO # 0.6 10^3/uL (0.0-0.8); MONO % 6.9 % (2.0-8.0); NEUTROPHILS # 3.9 10^3/uL (1.5-8.5); NEUTROPHILS % 45.9 % (36.0-66.0); PLATELET COUNT, AUTOMATED 201 10^3/uL (150-450); RED BLOOD COUNT 3.34 10^6/uL (4.30-6.10); WHITE BLOOD COUNT 8.6 10^3/uL (4.0-10.0)
[2020-10-13 16:34] LABS: ALBUMIN 3.3 GM/DL (3.2-5.2); PERCENT SATURATION 45.7 % (19.7-50.0); PHOSPHORUS LEVEL 6.2 MG/DL (2.5-4.9); TOTAL PROTEIN 6.6 GM/DL (6.4-8.2)
[2020-10-13 16:38] LABS: CALCIUM LEVEL 8.8 MG/DL (8.8-10.2); CREATININE FOR GFR 10.8 MG/DL (0.70-1.30)
== END 2020-10-13 16:00 | disposition home or self-care (01) ==
LOC: M INFU 15:12
PROVIDERS: ATTEND Internal Medicine Nephrology
DX: N18.6 End stage renal disease (principal); D63.1 Anemia in chronic kidney disease; Z88.6 Allergy status to analgesic agent; Z88.8 Allergy status to other drugs, medicaments and biological substances

== ENCOUNTER → 2020-10-13 | Outpatient (CLI) | payer MEDICARE, OTHER ==
[~2020-10-13] MED LIST changes: +LOSA100T45 PO; -LOSA100T50 PO; +OMEP-173 PO; -OMEP-218 PO; +POTA-151 PO; -POTA20TA6 PO
== END ==
LOC: M RAD 15:15
PROVIDERS: ATTEND Nurse Practitioner Family
DX: I50.32 Chronic diastolic (congestive) heart failure (principal); R06.2 Wheezing; N18.6 End stage renal disease; D63.1 Anemia in chronic kidney disease; Z88.6 Allergy status to analgesic agent; Z88.8 Allergy status to other drugs, medicaments and biological substances; Z95.0 Presence of cardiac pacemaker
CPT/HCPCS: 36591; 80048; 82040; 83550; 84100; 84155; 85025; J1642

== ENCOUNTER 2020-11-12 14:17 | Outpatient (CLI) | payer MEDICARE, OTHER ==
[~2020-11-12] VITALS: Ht 172.7 cm; Wt 63.0 kg
[~2020-11-12 14:17] MED LIST changes: -LOSA100T45 PO; +LOSA100T50 PO; -OMEP-173 PO; +OMEP-218 PO; -POTA-151 PO; +POTA20TA6 PO
[2020-11-12 14:50] VITALS: BP 144/68
[2020-11-12 15:02] LABS: BASO % 0.4 % (0.0-1.0); EOS # 0.5 10^3/uL (0.0-0.5); EOS % 8.2 % (0.0-3.0); HEMATOCRIT 26.2 % (42.0-52.0); HEMOGLOBIN 8.6 g/dl (13.5-17.5); LYMPH # 1.7 10^3/uL (1.5-5.0); LYMPH % 29.8 % (24.0-44.0); MEAN CORPUSCULAR HEMOGLOBIN 30.9 pg (27.0-33.0); MEAN CORPUSCULAR HGB CONC 32.8 g/dl (32.0-36.5); MEAN CORPUSCULAR VOLUME 94.2 fl (80.0-96.0); MONO # 0.4 10^3/uL (0.0-0.8); MONO % 6.6 % (2.0-8.0); NEUTROPHILS # 3.1 10^3/uL (1.5-8.5); NEUTROPHILS % 54.8 % (36.0-66.0); PLATELET COUNT, AUTOMATED 172 10^3/uL (150-450); RED BLOOD COUNT 2.78 10^6/uL (4.30-6.10); WHITE BLOOD COUNT 5.6 10^3/uL (4.0-10.0)
[2020-11-12 16:21] LABS: ALBUMIN 2.8 GM/DL (3.2-5.2); BLOOD UREA NITROGEN 52 MG/DL (7-18); CALCIUM LEVEL 8.6 MG/DL (8.8-10.2); CARBON DIOXIDE LEVEL 30 MEQ/L (21-32); CHLORIDE LEVEL 100 MEQ/L (98-107); GLOMERULAR FILTRATION RATE 5.8 (>42); GLUCOSE, FASTING 136 MG/DL (70-100); IRON (FE) 52 UG/DL (65-175); PERCENT SATURATION 30.4 % (19.7-50.0); PHOSPHORUS LEVEL 4.1 MG/DL (2.5-4.9); POTASSIUM SERUM 3.2 MEQ/L (3.5-5.1); PTH INTACT 548.6 PG/ML (18.5-88.0); SODIUM LEVEL 141 MEQ/L (136-145); TOTAL IRON BINDING CAPACITY 171 UG/DL (250-450); TOTAL PROTEIN 5.4 GM/DL (6.4-8.2)
[2020-11-12 17:11] LABS: HEPATITIS B SURFACE ANTIBODY POSITIVE (POSITIVE)
[2020-11-12 17:51] LABS: HEPATITIS C VIRUS ABY INDEX 0.1 INDEX (<0.8)
== END 2020-11-12 14:50 | disposition home or self-care (01) ==
LOC: M INFU 14:17
PROVIDERS: ATTEND Internal Medicine Nephrology
DX: N18.6 End stage renal disease (principal)
CPT/HCPCS: 36591; 80048; 82040; 83550; 83970; 84100; 84155; 85025; 86706; 86803; 96523; J1642

== ENCOUNTER 2020-12-11 14:01 | Outpatient (CLI) | payer MEDICARE, OTHER ==
[~2020-12-11] VITALS: Ht 172.7 cm; Wt 63.0 kg
[2020-12-11 14:10] VITALS: BP 160/70
[2020-12-11 14:52] LABS: BASO % 0.5 % (0.0-1.0); EOS # 0.7 10^3/uL (0.0-0.5); EOS % 11.7 % (0.0-3.0); HEMATOCRIT 28.1 % (42.0-52.0); HEMOGLOBIN 9.3 g/dl (13.5-17.5); LYMPH # 1.9 10^3/uL (1.5-5.0); LYMPH % 31.5 % (24.0-44.0); MEAN CORPUSCULAR HEMOGLOBIN 31.8 pg (27.0-33.0); MEAN CORPUSCULAR HGB CONC 33.1 g/dl (32.0-36.5); MEAN CORPUSCULAR VOLUME 96.2 fl (80.0-96.0); MONO # 0.5 10^3/uL (0.0-0.8); NEUTROPHILS # 2.9 10^3/uL (1.5-8.5); NEUTROPHILS % 48.1 % (36.0-66.0); PLATELET COUNT, AUTOMATED 178 10^3/uL (150-450); RED BLOOD COUNT 2.92 10^6/uL (4.30-6.10); WHITE BLOOD COUNT 6.1 10^3/uL (4.0-10.0)
[2020-12-11 15:43] LABS: ALBUMIN 2.7 GM/DL (3.2-5.2); CALCIUM LEVEL 8.1 MG/DL (8.8-10.2); CREATININE FOR GFR 11.4 MG/DL (0.70-1.30); GLOMERULAR FILTRATION RATE 5.6 (>42); PERCENT SATURATION 42.1 % (19.7-50.0); PHOSPHORUS LEVEL 5.5 MG/DL (2.5-4.9); POTASSIUM SERUM 4.4 MEQ/L (3.5-5.1); TOTAL PROTEIN 5.9 GM/DL (6.4-8.2)
== END 2020-12-11 15:00 | disposition home or self-care (01) ==
LOC: M INFU 14:01
PROVIDERS: ATTEND Internal Medicine Nephrology
DX: N18.6 End stage renal disease (principal); Z88.5 Allergy status to narcotic agent; Z88.6 Allergy status to analgesic agent; Z88.8 Allergy status to other drugs, medicaments and biological substances
CPT/HCPCS: 36591; 80048; 82040; 83550; 84100; 84155; 85025; 96523; J1642

== ENCOUNTER 2021-01-09 15:11 | Outpatient (CLI) | payer MEDICARE, OTHER ==
[~2021-01-09] VITALS: Ht 172.7 cm; Wt 68.0 kg
[2021-01-09 15:35] VITALS: BP 119/66
[2021-01-09 16:29] LABS: BASO % 0.3 % (0.0-1.0); EOS # 0.5 10^3/uL (0.0-0.5); HEMATOCRIT 32.4 % (42.0-52.0); HEMOGLOBIN 10.5 g/dl (13.5-17.5); LYMPH # 2.3 10^3/uL (1.5-5.0); LYMPH % 37.5 % (24.0-44.0); MEAN CORPUSCULAR HEMOGLOBIN 31.4 pg (27.0-33.0); MEAN CORPUSCULAR HGB CONC 32.4 g/dl (32.0-36.5); MONO # 0.5 10^3/uL (0.0-0.8); NEUTROPHILS # 2.7 10^3/uL (1.5-8.5); PLATELET COUNT, AUTOMATED 179 10^3/uL (150-450); RED BLOOD COUNT 3.34 10^6/uL (4.30-6.10)
[2021-01-09 17:01] LABS: ALBUMIN 2.8 GM/DL (3.2-5.2); CALCIUM LEVEL 8.4 MG/DL (8.8-10.2); CREATININE FOR GFR 11.8 MG/DL (0.70-1.30); GLOMERULAR FILTRATION RATE 5.4 (>42); MAGNESIUM LEVEL 2.1 MG/DL (1.8-2.4); PERCENT SATURATION 34.5 % (19.7-50.0); PHOSPHORUS LEVEL 5.8 MG/DL (2.5-4.9); TOTAL PROTEIN 6.1 GM/DL (6.4-8.2)
== END 2021-01-09 16:00 | disposition home or self-care (01) ==
LOC: M INFU 15:11
PROVIDERS: ATTEND Internal Medicine Nephrology
DX: N18.6 End stage renal disease (principal); Z88.8 Allergy status to other drugs, medicaments and biological substances; Z88.6 Allergy status to analgesic agent
CPT/HCPCS: 36591; 80048; 82040; 82728; 83550; 83735; 83970; 84078; 84100; 84155; 85025; 96523; J1642

== ENCOUNTER 2021-02-11 13:59 | Outpatient (CLI) | payer MEDICARE, OTHER ==
[~2021-02-11] VITALS: Ht 172.7 cm; Wt 68.0 kg
[~2021-02-11 13:59] MED LIST changes: -SODIUM CHLORIDE 0.9% INJ 10 ML SYR IV PRN
[2021-02-11 14:35] VITALS: BP 121/61
[2021-02-11 14:41] LABS: BASO % 0.5 % (0.0-1.0); EOS # 0.5 10^3/uL (0.0-0.5); EOS % 7.3 % (0.0-3.0); HEMATOCRIT 36.6 % (42.0-52.0); HEMOGLOBIN 11.9 g/dl (13.5-17.5); LYMPH # 2.1 10^3/uL (1.5-5.0); LYMPH % 32.6 % (24.0-44.0); MEAN CORPUSCULAR HEMOGLOBIN 31.2 pg (27.0-33.0); MEAN CORPUSCULAR HGB CONC 32.5 g/dl (32.0-36.5); MEAN CORPUSCULAR VOLUME 95.8 fl (80.0-96.0); MONO # 0.5 10^3/uL (0.0-0.8); NEUTROPHILS # 3.5 10^3/uL (1.5-8.5); NEUTROPHILS % 52.4 % (36.0-66.0); PLATELET COUNT, AUTOMATED 159 10^3/uL (150-450); RED BLOOD COUNT 3.82 10^6/uL (4.30-6.10); WHITE BLOOD COUNT 6.6 10^3/uL (4.0-10.0)
[2021-02-11] MEDS: SODIUM CHLORIDE 0.9% INJ 10 ML SYR IV PRN ×2 (15:08→15:09)
[2021-02-11 16:26] LABS: CALCIUM LEVEL 8.5 MG/DL (8.8-10.2); CREATININE FOR GFR 12.5 MG/DL (0.70-1.30); GLOMERULAR FILTRATION RATE 5.1 (>42); PERCENT SATURATION 29.8 % (19.7-50.0); PHOSPHORUS LEVEL 4.9 MG/DL (2.5-4.9); POTASSIUM SERUM 3.4 MEQ/L (3.5-5.1); PTH INTACT 844.5 PG/ML (18.5-88.0); TOTAL PROTEIN 6.2 GM/DL (6.4-8.2)
== END 2021-02-11 14:35 | disposition home or self-care (01) ==
LOC: M INFU 13:59
PROVIDERS: ATTEND Internal Medicine Nephrology
DX: N18.6 End stage renal disease (principal); Z88.6 Allergy status to analgesic agent; Z88.8 Allergy status to other drugs, medicaments and biological substances
CPT/HCPCS: 36591; 80048; 82040; 83550; 83970; 84100; 84155; 85025; 96523; J1642

== ENCOUNTER 2021-03-17 13:54 | Outpatient (CLI) | payer MEDICARE, OTHER ==
[~2021-03-17] VITALS: Ht 172.7 cm; Wt 68.0 kg
[~2021-03-17 13:54] MED LIST changes: +LOSA100T45 PO; -LOSA100T50 PO; +OMEP-173 PO; -OMEP-218 PO; +POTA-151 PO; -POTA20TA6 PO
[2021-03-17 13:55] VITALS: BP 131/73
[2021-03-17] MEDS ORDERED: SODIUM CHLORIDE 0.9% INJ 10 ML SYR IV PRN (14:00)
[2021-03-17 14:51] LABS: BASO % 0.3 % (0.0-1.0); EOS # 0.6 10^3/uL (0.0-0.5); EOS % 9.6 % (0.0-3.0); HEMATOCRIT 34.1 % (42.0-52.0); HEMOGLOBIN 10.8 g/dl (13.5-17.5); LYMPH # 1.9 10^3/uL (1.5-5.0); LYMPH % 30.7 % (24.0-44.0); MEAN CORPUSCULAR HEMOGLOBIN 30.7 pg (27.0-33.0); MEAN CORPUSCULAR HGB CONC 31.7 g/dl (32.0-36.5); MEAN CORPUSCULAR VOLUME 96.9 fl (80.0-96.0); MONO # 0.6 10^3/uL (0.0-0.8); MONO % 9.1 % (2.0-8.0); NEUTROPHILS # 3.1 10^3/uL (1.5-8.5); NEUTROPHILS % 50.1 % (36.0-66.0); PLATELET COUNT, AUTOMATED 161 10^3/uL (150-450); RED BLOOD COUNT 3.52 10^6/uL (4.30-6.10); WHITE BLOOD COUNT 6.2 10^3/uL (4.0-10.0)
[2021-03-17 15:03] LABS: INR 1.11; PROTHROMBIN TIME 14.7 SECONDS (12.7-14.5)
[2021-03-17 15:49] LABS: ALBUMIN 2.8 GM/DL (3.2-5.2); CREATININE FOR GFR 12.2 MG/DL (0.70-1.30); GLOMERULAR FILTRATION RATE 5.2 (>42); PERCENT SATURATION 44.2 % (19.7-50.0); PHOSPHORUS LEVEL 5.8 MG/DL (2.5-4.9); POTASSIUM SERUM 3.6 MEQ/L (3.5-5.1)
== END 2021-03-17 14:30 | disposition home or self-care (01) ==
LOC: M INFU 13:54
PROVIDERS: ATTEND Internal Medicine Nephrology
DX: N18.6 End stage renal disease (principal); Z88.6 Allergy status to analgesic agent; Z88.8 Allergy status to other drugs, medicaments and biological substances
CPT/HCPCS: 36591; 80048; 82040; 83550; 83970; 84100; 84155; 85025; 85610; 96523; J1642

== ENCOUNTER 2021-04-15 14:31 | Outpatient (CLI) | payer OTHER ==
[~2021-04-15] VITALS: Ht 172.7 cm; Wt 68.0 kg
[~2021-04-15 14:31] MED LIST changes: -OMEP-173 PO; +OMEP-218 PO; +SODIUM CHLORIDE 0.9% INJ 10 ML SYR IV PRN; -SODIUM CHLORIDE 0.9% INJ 10 ML SYR IV SCH
[2021-04-15 14:35] VITALS: BP 133/61
[2021-04-15 15:14] LABS: BASO % 0.4 % (0.0-1.0); EOS # 0.9 10^3/uL (0.0-0.5); EOS % 12.8 % (0.0-3.0); HEMATOCRIT 29.7 % (42.0-52.0); HEMOGLOBIN 9.6 g/dl (13.5-17.5); LYMPH # 1.8 10^3/uL (1.5-5.0); MEAN CORPUSCULAR HEMOGLOBIN 30.2 pg (27.0-33.0); MEAN CORPUSCULAR HGB CONC 32.3 g/dl (32.0-36.5); MEAN CORPUSCULAR VOLUME 93.4 fl (80.0-96.0); MONO # 0.5 10^3/uL (0.0-0.8); NEUTROPHILS # 3.5 10^3/uL (1.5-8.5); NEUTROPHILS % 52.5 % (36.0-66.0); PLATELET COUNT, AUTOMATED 143 10^3/uL (150-450); RED BLOOD COUNT 3.18 10^6/uL (4.30-6.10); WHITE BLOOD COUNT 6.7 10^3/uL (4.0-10.0)
[2021-04-15 16:11] LABS: ALBUMIN 2.9 GM/DL (3.2-5.2); CALCIUM LEVEL 8.9 MG/DL (8.8-10.2); CREATININE FOR GFR 11.7 MG/DL (0.70-1.30); GLOMERULAR FILTRATION RATE 5.5 (>42); MAGNESIUM LEVEL 2.2 MG/DL (1.8-2.4); PERCENT SATURATION 82.8 % (19.7-50.0); POTASSIUM SERUM 4.1 MEQ/L (3.5-5.1)
[2021-04-15 16:36] LABS: TOTAL 25(OH) VITAMIN D 20.7 NG/ML (30.0-100.0)
[2021-04-15 16:37] LABS: PTH INTACT 911.5 PG/ML (18.5-88.0)
[2021-04-15 16:48] LABS: HEPATITIS B SURFACE ANTIGEN NEGATIVE (NEGATIVE)
== END 2021-04-15 15:00 | disposition home or self-care (01) ==
LOC: M INFU 14:31
PROVIDERS: ATTEND Internal Medicine Nephrology
DX: N18.6 End stage renal disease (principal); Z88.6 Allergy status to analgesic agent; Z88.8 Allergy status to other drugs, medicaments and biological substances
CPT/HCPCS: 36591; 80048; 82040; 82108; 82306; 82728; 83550; 83735; 83970; 84075; 84100; 84155; 85025; 86317; 87340; 96523; J1642

== ENCOUNTER 2021-05-15 15:06 | Outpatient (CLI) | payer OTHER ==
[~2021-05-15] VITALS: Ht 172.7 cm; Wt 68.0 kg
[2021-05-15] MEDS ORDERED: SODIUM CHLORIDE 0.9% INJ 10 ML SYR IV PRN (15:35)
[2021-05-15 15:43] LABS: BASO % 0.4 % (0.0-1.0); EOS # 0.9 10^3/uL (0.0-0.5); EOS % 13.3 % (0.0-3.0); LYMPH # 2.4 10^3/uL (1.5-5.0); LYMPH % 33.8 % (24.0-44.0); MEAN CORPUSCULAR HEMOGLOBIN 30.8 pg (27.0-33.0); MEAN CORPUSCULAR VOLUME 96.2 fl (80.0-96.0); MONO # 0.5 10^3/uL (0.0-0.8); MONO % 6.4 % (2.0-8.0); NEUTROPHILS # 3.3 10^3/uL (1.5-8.5); PLATELET COUNT, AUTOMATED 167 10^3/uL (150-450); WHITE BLOOD COUNT 7.1 10^3/uL (4.0-10.0)
[2021-05-15 15:45] VITALS: BP 134/64
[2021-05-16] MEDS ORDERED: SODIUM CHLORIDE 0.9% INJ 10 ML SYR IV SCH (09:00)
== END 2021-05-15 15:40 | disposition home or self-care (01) ==
LOC: M INFU 15:06
PROVIDERS: ATTEND Internal Medicine Nephrology
DX: N18.6 End stage renal disease (principal)
CPT/HCPCS: 36415; 83970; 85025; J1642

== ENCOUNTER → 2021-05-15 | Outpatient (REF) | payer OTHER ==
[~2021-05-15] MED LIST changes: +OMEP-173 PO; -OMEP-218 PO; -SODIUM CHLORIDE 0.9% INJ 10 ML SYR IV PRN
== END ==
LOC: M LAB REF 15:03
PROVIDERS: ATTEND Nurse Practitioner Family
DX: C65.9 Malignant neoplasm of unspecified renal pelvis (principal)

== ENCOUNTER 2021-06-23 15:12 | Outpatient (CLI) | payer OTHER ==
[~2021-06-23 15:12] MED LIST changes: -D31000TA2 PO; +SODIUM CHLORIDE 0.9% INJ 10 ML SYR IV SCH; +VITA100093 PO
[2021-06-23] MEDS ORDERED: SODIUM CHLORIDE 0.9% INJ 10 ML SYR IV PRN (15:20)
[2021-06-23 15:25] VITALS: BP 163/77
[2021-06-23 15:49] LABS: BASO % 0.5 % (0.0-1.0); EOS # 0.8 10^3/uL (0.0-0.5); EOS % 11.6 % (0.0-3.0); HEMATOCRIT 21.8 % (42.0-52.0); HEMOGLOBIN 7.2 g/dl (13.5-17.5); LYMPH # 1.9 10^3/uL (1.5-5.0); MEAN CORPUSCULAR VOLUME 96.9 fl (80.0-96.0); MONO # 0.6 10^3/uL (0.0-0.8); MONO % 8.9 % (2.0-8.0); NEUTROPHILS # 3.3 10^3/uL (1.5-8.5); NEUTROPHILS % 50.5 % (36.0-66.0); PLATELET COUNT, AUTOMATED 172 10^3/uL (150-450); RED BLOOD COUNT 2.25 10^6/uL (4.30-6.10); WHITE BLOOD COUNT 6.6 10^3/uL (4.0-10.0)
[2021-06-23 18:44] LABS: ALBUMIN 3.2 GM/DL (3.2-5.2); CALCIUM LEVEL 8.6 MG/DL (8.8-10.2); CREATININE FOR GFR 12.4 MG/DL (0.70-1.30); GLOMERULAR FILTRATION RATE 5.1 (>42); HEPATITIS C VIRUS ABY INDEX 0.2 INDEX (<0.8); PERCENT SATURATION 44.1 % (19.7-50.0); PHOSPHORUS LEVEL 3.7 MG/DL (2.5-4.9); POTASSIUM SERUM 3.8 MEQ/L (3.5-5.1); PTH INTACT 569.7 PG/ML (18.5-88.0); TOTAL PROTEIN 6.5 GM/DL (6.4-8.2)
[2021-06-24] MEDS ORDERED: SODIUM CHLORIDE 0.9% INJ 10 ML SYR IV SCH (09:00)
== END 2021-06-23 15:29 | disposition home or self-care (01) ==
LOC: M INFU 15:12
PROVIDERS: ATTEND Internal Medicine Nephrology
DX: N18.6 End stage renal disease (principal)
CPT/HCPCS: 36591; 80048; 82040; 83550; 83970; 84100; 84155; 85025; 86803; 96523; J1642

== ENCOUNTER 2021-06-30 15:02 | Outpatient (CLI) | payer OTHER ==
[~2021-06-30 15:02] MED LIST changes: +SODIUM CHLORIDE 0.9% INJ 10 ML SYR IV PRN; -SODIUM CHLORIDE 0.9% INJ 10 ML SYR IV SCH
[2021-06-30 15:23] VITALS: BP 155/70
[2021-06-30 16:02] LABS: MEAN CORPUSCULAR HEMOGLOBIN 32.5 pg (27.0-33.0); MEAN CORPUSCULAR HGB CONC 32.5 g/dl (32.0-36.5); PLATELET COUNT, AUTOMATED 151 10^3/uL (150-450); RED BLOOD COUNT 2.09 10^6/uL (4.30-6.10)
[2021-06-30 16:03] LABS: HEMATOCRIT 20.9 % (42.0-52.0); HEMOGLOBIN 6.8 g/dl (13.5-17.5)
[2021-07-01] MEDS ORDERED: SODIUM CHLORIDE 0.9% INJ 10 ML SYR IV SCH (09:00)
== END 2021-06-30 15:45 | disposition home or self-care (01) ==
LOC: M INFU 15:02
PROVIDERS: ATTEND Internal Medicine Nephrology
DX: N18.6 End stage renal disease (principal)
CPT/HCPCS: 36592; 85027; 96523; J1642

== ENCOUNTER 2021-07-01 11:39 | Outpatient (CLI) | payer OTHER ==
[2021-07-01] VITALS (7 sets, daily range): BP systolic 136–168; BP diastolic 52–74
[~2021-07-01] VITALS: Ht 172.7 cm; Wt 74.0 kg
[~2021-07-01 11:39] MED LIST changes: -SODIUM CHLORIDE 0.9% INJ 10 ML SYR IV PRN; +SODIUM CHLORIDE 0.9% INJ 10 ML SYR IV SCH
== END 2021-07-01 17:45 | disposition home or self-care (01) ==
LOC: M INFU 11:39
PROVIDERS: ATTEND Internal Medicine Nephrology
DX: D64.9 Anemia, unspecified (principal); Z88.6 Allergy status to analgesic agent; Z88.8 Allergy status to other drugs, medicaments and biological substances
CPT/HCPCS: 36430; 36591; 86850; 86900; 86901; 86920; 96523; J1642; P9016

== ENCOUNTER 2021-08-17 12:30 | Outpatient (CLI) | payer OTHER ==
[~2021-08-17] VITALS: Ht 172.7 cm; Wt 74.0 kg
[~2021-08-17 12:30] MED LIST changes: +PARI1CAP21 PO; -PARI1CAP3 PO
[2021-08-17 12:35] VITALS: BP 131/65
[2021-08-17 13:19] LABS: HEMATOCRIT 31.2 % (42.0-52.0); HEMOGLOBIN 10.5 g/dl (13.5-17.5); MEAN CORPUSCULAR HEMOGLOBIN 32.8 pg (27.0-33.0); MEAN CORPUSCULAR HGB CONC 33.7 g/dl (32.0-36.5); MEAN CORPUSCULAR VOLUME 97.5 fl (80.0-96.0); PLATELET COUNT, AUTOMATED 204 10^3/uL (150-450); WHITE BLOOD COUNT 8.8 10^3/uL (4.0-10.0)
[2021-08-17 16:28] LABS: CALCIUM LEVEL 9.3 MG/DL (8.8-10.2); CREATININE FOR GFR 13.6 MG/DL (0.70-1.30); GLOMERULAR FILTRATION RATE 4.6 (>42); PERCENT SATURATION 37.9 % (19.7-50.0); PHOSPHORUS LEVEL 4.9 MG/DL (2.5-4.9); POTASSIUM SERUM 3.8 MEQ/L (3.5-5.1); PTH INTACT 942.6 PG/ML (18.5-88.0)
== END 2021-08-17 12:45 | disposition home or self-care (01) ==
LOC: M INFU 12:30
PROVIDERS: ATTEND Internal Medicine Nephrology
DX: N18.6 End stage renal disease (principal); Z49.32 Encounter for adequacy testing for peritoneal dialysis; D50.9 Iron deficiency anemia, unspecified; E46 Unspecified protein-calorie malnutrition; N25.81 Secondary hyperparathyroidism of renal origin
CPT/HCPCS: 36591; 80069; 83550; 83970; 85027; 96523; J1642

== ENCOUNTER 2021-08-17 19:59 | Emergency (ER) | payer OTHER ==
[~2021-08-17 19:59] MED LIST changes: -SODIUM CHLORIDE 0.9% INJ 10 ML SYR IV SCH
[2021-08-18 01:01] VITALS: BP 136/76
== END 2021-08-18 00:42 | disposition left against medical advice (07) ==
LOC: M ED 19:59
DX: Z53.21 Procedure and treatment not carried out due to patient leaving prior to being seen by health care provider (principal)

== ENCOUNTER 2021-09-14 13:49 | Outpatient (CLI) | payer OTHER ==
[~2021-09-14] VITALS: Ht 172.7 cm; Wt 74.0 kg
[~2021-09-14 13:49] MED LIST changes: +SODIUM CHLORIDE 0.9% INJ 10 ML SYR IV SCH
[2021-09-14 14:45] VITALS: BP 135/75
[2021-09-14 15:31] LABS: HEMATOCRIT 31.1 % (42.0-52.0); HEMOGLOBIN 10.1 g/dl (13.5-17.5); MEAN CORPUSCULAR HEMOGLOBIN 31.8 pg (27.0-33.0); MEAN CORPUSCULAR HGB CONC 32.5 g/dl (32.0-36.5); MEAN CORPUSCULAR VOLUME 97.8 fl (80.0-96.0); PLATELET COUNT, AUTOMATED 193 10^3/uL (150-450); RED BLOOD COUNT 3.18 10^6/uL (4.30-6.10); WHITE BLOOD COUNT 8.3 10^3/uL (4.0-10.0)
[2021-09-14 16:38] LABS: CREATININE FOR GFR 11.8 MG/DL (0.70-1.30); GLOMERULAR FILTRATION RATE 5.4 (>42)
[2021-09-14 16:39] LABS: ALBUMIN 2.9 GM/DL (3.2-5.2); CALCIUM LEVEL 7.6 MG/DL (8.8-10.2); PERCENT SATURATION 31.8 % (19.7-50.0); PHOSPHORUS LEVEL 3.6 MG/DL (2.5-4.9); POTASSIUM SERUM 3.4 MEQ/L (3.5-5.1)
== END 2021-09-14 15:32 | disposition home or self-care (01) ==
LOC: M INFU 13:49
PROVIDERS: ATTEND Internal Medicine Nephrology
DX: N18.6 End stage renal disease (principal); Z49.32 Encounter for adequacy testing for peritoneal dialysis; D50.9 Iron deficiency anemia, unspecified; E46 Unspecified protein-calorie malnutrition; N25.81 Secondary hyperparathyroidism of renal origin; E78.00 Pure hypercholesterolemia, unspecified; I47.2 Ventricular tachycardia; I42.9 Cardiomyopathy, unspecified; T46.2X1A Poisoning by other antidysrhythmic drugs, accidental (unintentional), initial encounter
CPT/HCPCS: 36591; 71046; 80048; 80069; 83550; 83880; 83970; 85025; 85027; J1642

== ENCOUNTER → 2021-09-14 | Outpatient (CLI) | payer OTHER ==
[~2021-09-14] MED LIST changes: +ALBU2.5V10 NEB; -ALBU83IN NEB
[2021-09-14 15:31] LABS: BASO % 0.5 % (0.0-1.0); EOS # 1.1 10^3/uL (0.0-0.5); EOS % 13.4 % (0.0-3.0); HEMATOCRIT 30.9 % (42.0-52.0); LYMPH # 1.9 10^3/uL (1.5-5.0); LYMPH % 22.8 % (24.0-44.0); MEAN CORPUSCULAR HEMOGLOBIN 31.5 pg (27.0-33.0); MEAN CORPUSCULAR HGB CONC 32.4 g/dl (32.0-36.5); MEAN CORPUSCULAR VOLUME 97.5 fl (80.0-96.0); MONO # 0.5 10^3/uL (0.0-0.8); MONO % 6.7 % (2.0-8.0); NEUTROPHILS # 4.6 10^3/uL (1.5-8.5); NEUTROPHILS % 56.4 % (36.0-66.0); PLATELET COUNT, AUTOMATED 192 10^3/uL (150-450); RED BLOOD COUNT 3.17 10^6/uL (4.30-6.10); WHITE BLOOD COUNT 8.1 10^3/uL (4.0-10.0)
[2021-09-14 16:06] LABS: CALCIUM LEVEL 7.6 MG/DL (8.8-10.2); CREATININE FOR GFR 11.8 MG/DL (0.70-1.30); GLOMERULAR FILTRATION RATE 5.4 (>42); POTASSIUM SERUM 3.4 MEQ/L (3.5-5.1)
== END ==
LOC: M RAD 13:57
PROVIDERS: ATTEND Internal Medicine Interventional Cardiology
DX: E78.00 Pure hypercholesterolemia, unspecified (principal); I47.2 Ventricular tachycardia; I42.9 Cardiomyopathy, unspecified; T46.2X1A Poisoning by other antidysrhythmic drugs, accidental (unintentional), initial encounter

== ENCOUNTER → 2021-10-07 | Outpatient (CLI) | payer OTHER ==
[~2021-10-07] VITALS: Ht 172.7 cm; Wt 82.3 kg
[~2021-10-07] MED LIST changes: +SODIUM CHLORIDE 0.9% INJ 10 ML SYR IV PRN
[2021-10-07 15:50] VITALS: BP 158/69
[2021-10-07 16:22] LABS: BASO % 0.3 % (0.0-1.0); EOS # 0.6 10^3/uL (0.0-0.5); EOS % 8.8 % (0.0-3.0); HEMATOCRIT 28.2 % (42.0-52.0); LYMPH # 1.6 10^3/uL (1.5-5.0); LYMPH % 25.4 % (24.0-44.0); MEAN CORPUSCULAR HEMOGLOBIN 32.4 pg (27.0-33.0); MEAN CORPUSCULAR HGB CONC 31.9 g/dl (32.0-36.5); MEAN CORPUSCULAR VOLUME 101.4 fl (80.0-96.0); MONO # 0.5 10^3/uL (0.0-0.8); MONO % 7.9 % (2.0-8.0); NEUTROPHILS # 3.6 10^3/uL (1.5-8.5); NEUTROPHILS % 57.3 % (36.0-66.0); PLATELET COUNT, AUTOMATED 192 10^3/uL (150-450); RED BLOOD COUNT 2.78 10^6/uL (4.30-6.10); WHITE BLOOD COUNT 6.3 10^3/uL (4.0-10.0)
[2021-10-07 16:54] LABS: CALCIUM LEVEL 7.3 MG/DL (8.8-10.2); CREATININE FOR GFR 11.6 MG/DL (0.70-1.30); GLOMERULAR FILTRATION RATE 5.5 (>42); POTASSIUM SERUM 3.3 MEQ/L (3.5-5.1)
== END ==
LOC: M INFU 15:50
PROVIDERS: ATTEND Internal Medicine Interventional Cardiology
DX: I50.9 Heart failure, unspecified (principal); I25.110 Atherosclerotic heart disease of native coronary artery with unstable angina pectoris
CPT/HCPCS: 36591; 80048; 83880; 85025; 96523; J1642

== ENCOUNTER 2021-10-15 14:24 | Outpatient (CLI) | payer OTHER ==
[~2021-10-15] VITALS: Ht 172.7 cm; Wt 82.3 kg
[~2021-10-15 14:24] MED LIST changes: -SODIUM CHLORIDE 0.9% INJ 10 ML SYR IV SCH
[2021-10-15 14:35] VITALS: BP 167/70
[2021-10-15 15:00] LABS: HEMATOCRIT 28.2 % (42.0-52.0); HEMOGLOBIN 9.3 g/dl (13.5-17.5); MEAN CORPUSCULAR HEMOGLOBIN 32.9 pg (27.0-33.0); MEAN CORPUSCULAR VOLUME 99.6 fl (80.0-96.0); PLATELET COUNT, AUTOMATED 184 10^3/uL (150-450); RED BLOOD COUNT 2.83 10^6/uL (4.30-6.10); WHITE BLOOD COUNT 6.8 10^3/uL (4.0-10.0)
[2021-10-15 16:20] LABS: ALBUMIN 2.8 GM/DL (3.2-5.2); CALCIUM LEVEL 7.3 MG/DL (8.8-10.2); CREATININE FOR GFR 11.3 MG/DL (0.70-1.30); GLOMERULAR FILTRATION RATE 5.7 (>42); PERCENT SATURATION 46.2 % (19.7-50.0); PHOSPHORUS LEVEL 4.1 MG/DL (2.5-4.9); POTASSIUM SERUM 3.8 MEQ/L (3.5-5.1)
[2021-10-16] MEDS ORDERED: SODIUM CHLORIDE 0.9% INJ 10 ML SYR IV SCH (09:00)
[2021-10-20 14:35] LABS: PTH INTACT 348.1 PG/ML (18.5-88.0)
== END 2021-10-15 14:50 | disposition home or self-care (01) ==
LOC: M INFU 14:24
PROVIDERS: ATTEND Internal Medicine Nephrology
DX: N18.6 End stage renal disease (principal); Z88.6 Allergy status to analgesic agent; Z88.8 Allergy status to other drugs, medicaments and biological substances
CPT/HCPCS: 36591; 80069; 83550; 83970; 85027; 96523; J1642

== ENCOUNTER 2021-11-17 13:00 | Outpatient (CLI) | payer OTHER ==
[~2021-11-17 13:00] MED LIST changes: +SODIUM CHLORIDE 0.9% INJ 10 ML SYR IV SCH
[2021-11-17 13:49] LABS: BASO % 0.4 % (0.0-1.0); EOS # 0.8 10^3/uL (0.0-0.5); EOS % 10.2 % (0.0-3.0); HEMATOCRIT 30.5 % (42.0-52.0); HEMOGLOBIN 9.9 g/dl (13.5-17.5); LYMPH # 1.9 10^3/uL (1.5-5.0); LYMPH % 26.2 % (24.0-44.0); MEAN CORPUSCULAR HEMOGLOBIN 32.5 pg (27.0-33.0); MEAN CORPUSCULAR HGB CONC 32.5 g/dl (32.0-36.5); MONO # 0.5 10^3/uL (0.0-0.8); MONO % 6.8 % (2.0-8.0); NEUTROPHILS # 4.1 10^3/uL (1.5-8.5); PLATELET COUNT, AUTOMATED 172 10^3/uL (150-450); RED BLOOD COUNT 3.05 10^6/uL (4.30-6.10); WHITE BLOOD COUNT 7.4 10^3/uL (4.0-10.0)
[2021-11-17 14:47] LABS: ALBUMIN 2.8 GM/DL (3.2-5.2); BILIRUBIN,DIRECT 0.2 MG/DL (0.0-0.2); BILIRUBIN,TOTAL 0.5 MG/DL (0.2-1.0); CALCIUM LEVEL 7.1 MG/DL (8.8-10.2); CHOLESTEROL RISK RATIO 2.303 (<5); CREATININE FOR GFR 11.3 MG/DL (0.70-1.30); GLOMERULAR FILTRATION RATE 5.7 (>42); PERCENT SATURATION 46.1 % (19.7-50.0); PHOSPHORUS LEVEL 3.6 MG/DL (2.5-4.9); POTASSIUM SERUM 3.4 MEQ/L (3.5-5.1); THYROID STIMULATING HORMONE 2.32 uIU/ML (0.358-3.740); TOTAL PROTEIN 6.3 GM/DL (6.4-8.2)
[2021-11-17 15:20] LABS: PTH INTACT 255.7 PG/ML (18.5-88.0); TOTAL 25(OH) VITAMIN D 31.2 NG/ML (30.0-100.0)
== END 2021-11-17 13:25 | disposition home or self-care (01) ==
LOC: M INFU 13:00
PROVIDERS: ATTEND Internal Medicine Nephrology
DX: N18.6 End stage renal disease (principal); D50.9 Iron deficiency anemia, unspecified; E46 Unspecified protein-calorie malnutrition; N25.81 Secondary hyperparathyroidism of renal origin; Z49.32 Encounter for adequacy testing for peritoneal dialysis; Z88.6 Allergy status to analgesic agent; Z88.5 Allergy status to narcotic agent; Z88.8 Allergy status to other drugs, medicaments and biological substances
CPT/HCPCS: 36591; 80061; 80069; 80076; 82306; 83519; 83550; 83880; 83970; 84443; 85025; 96523; J1642

== ENCOUNTER 2021-12-18 14:25 | Outpatient (CLI) | payer OTHER ==
[2021-12-18 14:25] VITALS: BP 152/72
[~2021-12-18 14:25] MED LIST changes: +ALBU6.7H6 INH; -PROV108A INH
[2021-12-18 15:08] LABS: HEMATOCRIT 32.1 % (42.0-52.0); HEMOGLOBIN 10.5 g/dl (13.5-17.5); MEAN CORPUSCULAR HEMOGLOBIN 33.5 pg (27.0-33.0); MEAN CORPUSCULAR HGB CONC 32.7 g/dl (32.0-36.5); MEAN CORPUSCULAR VOLUME 102.6 fl (80.0-96.0); PLATELET COUNT, AUTOMATED 170 10^3/uL (150-450); RED BLOOD COUNT 3.13 10^6/uL (4.30-6.10); WHITE BLOOD COUNT 10.8 10^3/uL (4.0-10.0)
[2021-12-18 16:10] LABS: ALBUMIN 2.9 GM/DL (3.2-5.2); CALCIUM LEVEL 7.5 MG/DL (8.8-10.2); CREATININE FOR GFR 10.9 MG/DL (0.70-1.30); GLOMERULAR FILTRATION RATE 5.9 (>42); PHOSPHORUS LEVEL 4.2 MG/DL (2.5-4.9); POTASSIUM SERUM 3.7 MEQ/L (3.5-5.1)
[2021-12-18 17:04] LABS: PTH INTACT 316.5 PG/ML (18.5-88.0)
== END 2021-12-18 14:45 ==
LOC: M INFU 14:25
PROVIDERS: ATTEND Internal Medicine Nephrology
DX: N18.6 End stage renal disease (principal); N25.81 Secondary hyperparathyroidism of renal origin; E46 Unspecified protein-calorie malnutrition; D50.9 Iron deficiency anemia, unspecified; Z49.32 Encounter for adequacy testing for peritoneal dialysis; Z88.6 Allergy status to analgesic agent; Z88.5 Allergy status to narcotic agent; Z88.8 Allergy status to other drugs, medicaments and biological substances
CPT/HCPCS: 36591; 80069; 82040; 83550; 83970; 85027; 96523; G0103; J1642

== ENCOUNTER 2022-01-19 13:50 | Outpatient (CLI) | payer OTHER ==
[~2022-01-19 13:50] MED LIST changes: -SODIUM CHLORIDE 0.9% INJ 10 ML SYR IV PRN
[2022-01-19 13:57] VITALS: BP 150/77
[2022-01-19 14:24] LABS: BASO % 0.4 % (0.0-1.0); EOS # 0.2 10^3/uL (0.0-0.5); EOS % 2.4 % (0.0-3.0); HEMATOCRIT 32.7 % (42.0-52.0); HEMOGLOBIN 10.5 g/dl (13.5-17.5); LYMPH # 2.1 10^3/uL (1.5-5.0); MEAN CORPUSCULAR HEMOGLOBIN 33.4 pg (27.0-33.0); MEAN CORPUSCULAR HGB CONC 32.1 g/dl (32.0-36.5); MEAN CORPUSCULAR VOLUME 104.1 fl (80.0-96.0); MONO # 0.7 10^3/uL (0.0-0.8); MONO % 8.4 % (2.0-8.0); NEUTROPHILS # 5.3 10^3/uL (1.5-8.5); NEUTROPHILS % 62.8 % (36.0-66.0); PLATELET COUNT, AUTOMATED 203 10^3/uL (150-450); RED BLOOD COUNT 3.14 10^6/uL (4.30-6.10); WHITE BLOOD COUNT 8.4 10^3/uL (4.0-10.0)
[2022-01-19 16:20] LABS: ALBUMIN 2.8 GM/DL (3.2-5.2); CALCIUM LEVEL 7.5 MG/DL (8.8-10.2); CREATININE FOR GFR 11.4 MG/DL (0.70-1.30); GLOMERULAR FILTRATION RATE 5.6 (>42); MAGNESIUM LEVEL 2.3 MG/DL (1.8-2.4); PERCENT SATURATION 31.5 % (19.7-50.0); PHOSPHORUS LEVEL 6.4 MG/DL (2.5-4.9); POTASSIUM SERUM 4.1 MEQ/L (3.5-5.1); PTH INTACT 770.6 PG/ML (18.5-88.0)
== END 2022-01-19 14:15 | disposition home or self-care (01) ==
LOC: M INFU 13:50
PROVIDERS: ATTEND Internal Medicine Nephrology
DX: N18.6 End stage renal disease (principal); N25.81 Secondary hyperparathyroidism of renal origin; N50.9 Disorder of male genital organs, unspecified

== ENCOUNTER 2022-02-16 14:00 | Outpatient (CLI) | payer OTHER ==
[2022-02-16 14:00] VITALS: BP 142/82
[~2022-02-16 14:00] MED LIST changes: +CLOP75TA99 PO; -ISOS20TA PO; +ISOS20TA53 PO; -PLAV1TAB2 PO
[2022-02-16 14:20] LABS: BASO % 0.3 % (0.0-1.0); EOS # 0.2 10^3/uL (0.0-0.5); EOS % 1.5 % (0.0-3.0); HEMATOCRIT 36.7 % (42.0-52.0); HEMOGLOBIN 11.5 g/dl (13.5-17.5); LYMPH # 2.9 10^3/uL (1.5-5.0); LYMPH % 28.6 % (24.0-44.0); MEAN CORPUSCULAR HEMOGLOBIN 32.7 pg (27.0-33.0); MEAN CORPUSCULAR HGB CONC 31.3 g/dl (32.0-36.5); MEAN CORPUSCULAR VOLUME 104.3 fl (80.0-96.0); MONO # 0.9 10^3/uL (0.0-0.8); MONO % 8.4 % (2.0-8.0); NEUTROPHILS # 6.2 10^3/uL (1.5-8.5); NEUTROPHILS % 60.4 % (36.0-66.0); PLATELET COUNT, AUTOMATED 175 10^3/uL (150-450); RED BLOOD COUNT 3.52 10^6/uL (4.30-6.10); WHITE BLOOD COUNT 10.2 10^3/uL (4.0-10.0)
[2022-02-16 17:42] LABS: ALBUMIN 3.3 G/DL (3.2-5.2); CALCIUM LEVEL 7.4 MG/DL (8.3-10.6); CREATININE FOR GFR 12.15 MG/DL (0.70-1.30); GLOMERULAR FILTRATION RATE 5.2 (>42); PERCENT SATURATION 36.2 % (19.7-50.0); PHOSPHORUS LEVEL 7.4 MG/DL (2.4-5.1); PTH INTACT 281.2 PG/ML (18.5-88.0)
== END 2022-02-16 14:15 | disposition home or self-care (01) ==
LOC: M INFU 14:00
PROVIDERS: ATTEND Internal Medicine Nephrology
DX: N18.6 End stage renal disease (principal); N25.81 Secondary hyperparathyroidism of renal origin; Z49.32 Encounter for adequacy testing for peritoneal dialysis; Z88.6 Allergy status to analgesic agent; Z88.5 Allergy status to narcotic agent; Z88.8 Allergy status to other drugs, medicaments and biological substances
CPT/HCPCS: 36591; 80069; 82728; 83550; 83970; 85025; 96523; J1642

== ENCOUNTER 2022-03-23 14:44 | Outpatient (CLI) | payer OTHER ==
[2022-03-23 14:44] VITALS: BP 169/87
[~2022-03-23 14:44] MED LIST changes: -POTA10CA32 PO; +POTA10CA33 PO; +SODIUM CHLORIDE 0.9% INJ 10 ML SYR IV PRN
[2022-03-23 16:54] LABS: HEMATOCRIT 32.9 % (42.0-52.0); HEMOGLOBIN 10.5 g/dl (13.5-17.5); MEAN CORPUSCULAR HEMOGLOBIN 32.9 pg (27.0-33.0); MEAN CORPUSCULAR HGB CONC 31.9 g/dl (32.0-36.5); MEAN CORPUSCULAR VOLUME 103.1 fl (80.0-96.0); PLATELET COUNT, AUTOMATED 145 10^3/uL (150-450); RED BLOOD COUNT 3.19 10^6/uL (4.30-6.10); WHITE BLOOD COUNT 9.2 10^3/uL (4.0-10.0)
[2022-03-23 19:33] LABS: PERCENT SATURATION 60.5 % (19.7-50.0)
[2022-03-23 19:57] LABS: ALBUMIN 2.8 G/DL (3.2-5.2); CALCIUM LEVEL 7.4 MG/DL (8.3-10.6); CREATININE FOR GFR 11.5 MG/DL (0.70-1.30); FERRITIN 1650.8 NG/ML (10.5-307.3); GLOMERULAR FILTRATION RATE 5.6 (>42); PHOSPHORUS LEVEL 7.2 MG/DL (2.4-5.1); PTH INTACT 444.7 PG/ML (18.5-88.0)
== END 2022-03-23 14:50 | disposition home or self-care (01) ==
LOC: M INFU 14:44
PROVIDERS: ATTEND Internal Medicine Nephrology
DX: N18.6 End stage renal disease (principal); N25.81 Secondary hyperparathyroidism of renal origin; Z49.32 Encounter for adequacy testing for peritoneal dialysis
CPT/HCPCS: 36591; 80069; 82728; 83550; 83970; 85027; 96523; J1642

== ENCOUNTER 2022-04-13 13:35 | Outpatient (CLI) | payer OTHER ==
[~2022-04-13 13:35] MED LIST changes: -SODIUM CHLORIDE 0.9% INJ 10 ML SYR IV SCH
[2022-04-13 14:12] LABS: BASO % 0.2 % (0.0-1.0); EOS # 0.1 10^3/uL (0.0-0.5); EOS % 0.8 % (0.0-3.0); HEMATOCRIT 30.2 % (42.0-52.0); HEMOGLOBIN 9.7 g/dl (13.5-17.5); LYMPH # 2.6 10^3/uL (1.5-5.0); LYMPH % 23.1 % (24.0-44.0); MEAN CORPUSCULAR HEMOGLOBIN 32.4 pg (27.0-33.0); MEAN CORPUSCULAR HGB CONC 32.1 g/dl (32.0-36.5); MONO # 0.7 10^3/uL (0.0-0.8); MONO % 6.2 % (2.0-8.0); NEUTROPHILS # 7.6 10^3/uL (1.5-8.5); NEUTROPHILS % 68.2 % (36.0-66.0); PLATELET COUNT, AUTOMATED 133 10^3/uL (150-450); RED BLOOD COUNT 2.99 10^6/uL (4.30-6.10); WHITE BLOOD COUNT 11.1 10^3/uL (4.0-10.0)
[2022-04-13 16:01] LABS: ALBUMIN 2.9 G/DL (3.2-5.2); CALCIUM LEVEL 7.2 MG/DL (8.3-10.6); CREATININE FOR GFR 11.72 MG/DL (0.70-1.30); GLOMERULAR FILTRATION RATE 5.4 (>42); PERCENT SATURATION 80.6 % (19.7-50.0); PHOSPHORUS LEVEL 5.8 MG/DL (2.4-5.1); POTASSIUM SERUM 3.9 MMOL/L (3.5-5.1)
[2022-04-14 08:59] LABS: PTH INTACT 252.6 PG/ML (18.5-88.0)
[2022-04-14] MEDS ORDERED: SODIUM CHLORIDE 0.9% INJ 10 ML SYR IV SCH (09:00)
== END 2022-04-13 14:05 ==
LOC: M INFU 13:35
PROVIDERS: ATTEND Internal Medicine Nephrology
DX: N18.6 End stage renal disease (principal); N25.81 Secondary hyperparathyroidism of renal origin; Z49.32 Encounter for adequacy testing for peritoneal dialysis; Z88.6 Allergy status to analgesic agent; Z88.5 Allergy status to narcotic agent; Z88.8 Allergy status to other drugs, medicaments and biological substances

== ENCOUNTER 2022-04-29 11:45 | Outpatient (CLI) | payer OTHER ==
[2022-04-29 11:45] VITALS: BP 170/80
[2022-04-29 12:14] LABS: BASO % 0.2 % (0.0-1.0); EOS # 0.1 10^3/uL (0.0-0.5); EOS % 0.9 % (0.0-3.0); HEMATOCRIT 27.8 % (42.0-52.0); HEMOGLOBIN 9.1 g/dl (13.5-17.5); LYMPH # 2.5 10^3/uL (1.5-5.0); MEAN CORPUSCULAR HEMOGLOBIN 32.6 pg (27.0-33.0); MEAN CORPUSCULAR HGB CONC 32.7 g/dl (32.0-36.5); MEAN CORPUSCULAR VOLUME 99.6 fl (80.0-96.0); MONO # 0.7 10^3/uL (0.0-0.8); MONO % 6.9 % (2.0-8.0); NEUTROPHILS # 6.6 10^3/uL (1.5-8.5); NEUTROPHILS % 65.3 % (36.0-66.0); PLATELET COUNT, AUTOMATED 145 10^3/uL (150-450); RED BLOOD COUNT 2.79 10^6/uL (4.30-6.10); WHITE BLOOD COUNT 10.1 10^3/uL (4.0-10.0)
== END 2022-04-29 12:15 ==
LOC: M INFU 11:45
PROVIDERS: ATTEND Dentist
DX: I13.2 Hypertensive heart and chronic kidney disease with heart failure and with stage 5 chronic kidney disease, or end stage renal disease (principal); Z88.6 Allergy status to analgesic agent; Z88.5 Allergy status to narcotic agent; Z88.8 Allergy status to other drugs, medicaments and biological substances

== ENCOUNTER 2022-05-19 13:27 | Outpatient (CLI) | payer OTHER ==
[~2022-05-19 13:27] MED LIST changes: +SODIUM CHLORIDE 0.9% INJ 10 ML SYR IV SCH
[2022-05-19 13:35] VITALS: BP 138/67
[2022-05-19 14:20] LABS: BASO % 0.2 % (0.0-1.0); EOS # 0.1 10^3/uL (0.0-0.5); EOS % 1.5 % (0.0-3.0); HEMATOCRIT 25.7 % (42.0-52.0); HEMOGLOBIN 8.4 g/dl (13.5-17.5); LYMPH # 2.3 10^3/uL (1.5-5.0); LYMPH % 25.9 % (24.0-44.0); MEAN CORPUSCULAR HEMOGLOBIN 32.7 pg (27.0-33.0); MEAN CORPUSCULAR HGB CONC 32.7 g/dl (32.0-36.5); MONO # 0.6 10^3/uL (0.0-0.8); MONO % 6.5 % (2.0-8.0); NEUTROPHILS # 5.8 10^3/uL (1.5-8.5); NEUTROPHILS % 64.8 % (36.0-66.0); PLATELET COUNT, AUTOMATED 167 10^3/uL (150-450); RED BLOOD COUNT 2.57 10^6/uL (4.30-6.10); WHITE BLOOD COUNT 8.9 10^3/uL (4.0-10.0)
== END 2022-05-19 13:55 | disposition home or self-care (01) ==
LOC: M INFU 13:27
PROVIDERS: ATTEND Internal Medicine Nephrology
DX: N18.6 End stage renal disease (principal); Z88.6 Allergy status to analgesic agent; Z88.5 Allergy status to narcotic agent

== ENCOUNTER → 2022-06-04 | Outpatient (CLI) | payer OTHER ==
[~2022-06-04] MED LIST changes: -SODIUM CHLORIDE 0.9% INJ 10 ML SYR IV PRN; -SODIUM CHLORIDE 0.9% INJ 10 ML SYR IV SCH
== END ==
LOC: M LABSMTC 11:20
PROVIDERS: ATTEND Anesthesiology
DX: Z01.812 Encounter for preprocedural laboratory examination (principal); Z20.822 Contact with and (suspected) exposure to COVID-19

== ENCOUNTER 2022-06-16 14:05 | Outpatient (CLI) | payer OTHER ==
[2022-06-16 14:05] VITALS: BP 120/70
[~2022-06-16 14:05] MED LIST changes: +SODIUM CHLORIDE 0.9% INJ 10 ML SYR IV PRN; +SODIUM CHLORIDE 0.9% INJ 10 ML SYR IV SCH
[2022-06-16 14:27] LABS: HEMATOCRIT 27.5 % (42.0-52.0); HEMOGLOBIN 8.6 g/dl (13.5-17.5); MEAN CORPUSCULAR HEMOGLOBIN 33.3 pg (27.0-33.0); MEAN CORPUSCULAR HGB CONC 31.3 g/dl (32.0-36.5); MEAN CORPUSCULAR VOLUME 106.6 fl (80.0-96.0); PLATELET COUNT, AUTOMATED 217 10^3/uL (150-450); RED BLOOD COUNT 2.58 10^6/uL (4.30-6.10); WHITE BLOOD COUNT 9.8 10^3/uL (4.0-10.0)
[2022-06-16 15:00] LABS: PERCENT SATURATION 15.3 % (19.7-50.0)
[2022-06-16 15:02] LABS: ALBUMIN 2.9 G/DL (3.2-5.2); CALCIUM LEVEL 7.7 MG/DL (8.3-10.6); CREATININE FOR GFR 10.63 MG/DL (0.70-1.30); GLOMERULAR FILTRATION RATE 6.1 (>35); PHOSPHORUS LEVEL 4.8 MG/DL (2.4-5.1); PTH INTACT 170.6 PG/ML (18.5-88.0)
== END 2022-06-16 14:20 | disposition home or self-care (01) ==
LOC: M INFU 14:05
PROVIDERS: ATTEND Internal Medicine Nephrology
DX: N18.6 End stage renal disease (principal); Z49.32 Encounter for adequacy testing for peritoneal dialysis; D50.9 Iron deficiency anemia, unspecified; E46 Unspecified protein-calorie malnutrition; N25.81 Secondary hyperparathyroidism of renal origin

== ENCOUNTER → 2022-06-23 | Day surgery (SDC) | payer OTHER ==
[~2022-06-23] VITALS: Ht 177.8 cm; Wt 86.2 kg
[~2022-06-23] MED LIST changes: +ACET-907 PO; +ACETYLCHOLINE OPHTH SOLN 1% 2ML (MIOCHOL-E) As Ordered ONE; +ALBU2.5V10 INH; +BSS IRRIG/VANCO(10MG)/TOBRA(5MG)/EPINEPH(1:1000-0.5CC)500ML BAG-ORONLY IR ONE; +CEFUROXIME 1MG/0.1ML INTRACAMERAL INJ As Ordered ONE; +CYCLOPENTOLATE 1% OPHTH SOLN 2ML BTL OS SCH; +EPOE20005 SQ; +FLUT1BLS2 INH; +LIDOCAINE 1% SDV 5ML VIAL As Ordered ONE; +LIDOCAINE 3.5 % 1ML OPHTH TOPICAL GEL OU ONE; +MAGN400C PO; +OFLOXACIN 0.3 % (OCUFLOX) OPTH SOL 5ML OS ONE; +PHENYLEPHRINE 10% OPHTH SOL 5ML OS PRN; +PHENYLEPHRINE 2.5% OPHTH SOL 2ML OS SCH; +PRED10TA2 PO; +ROCA0.5C PO; +SENS90TA PO; -SODIUM CHLORIDE 0.9% INJ 10 ML SYR IV PRN; -SODIUM CHLORIDE 0.9% INJ 10 ML SYR IV SCH; +TROPICAMIDE 1% OPHTH SOLN 15ML OS SCH; +XALA0.007 OU
[2022-06-23 15:53] VITALS: BP 125/60
== END | disposition home or self-care (01) ==
LOC: M SDC 15:10
PROVIDERS: ATTEND Ophthalmology
DX: Z53.20 Procedure and treatment not carried out because of patient's decision for unspecified reasons (principal)